=== PATIENT | female | born 1960 | race Caucasian/White ===

== ENCOUNTER 2023-09-10 14:57 | Outpatient (CLI) | payer OTHER, SELFPAY ==
[2023-09-10 15:39] LABS: Alanine Aminotransferase 30 U/L (6-35); Albumin Level 4.1 g/dL (3.5-5.1); Alkaline Phosphatase 186 U/L (38-126); Anion Gap 7 mmol/L (4-12); Aspartate Amino Transferase 78 U/L (14-36); Bilirubin,Total 1.5 mg/dL (0.2-1.3); Blood Urea Nitrogen 12 mg/dL (7-17); Calcium 9.7 mg/dL (8.4-10.2); Carbon Dioxide 27 mmol/L (22-30); Chloride 101 mmol/L (98-107); Estimated Glomerular Filt Rate > 60; Glucose 117 mg/dL (65-110); Magnesium 1.5 mg/dL (1.6-2.3); Phosphorus 4.9 mg/dL (2.5-4.5); Potassium 4.1 mmol/L (3.4-5.0); Sodium 135 mmol/L (137-145)
[2023-09-12 15:08] LABS: Amphetamines NEGATIVE ng/mL (<500); Barbiturates NEGATIVE ng/mL (<300); Benzodiazepines POSITIVE ng/mL (<100); Cocaine Metabolite NEGATIVE ng/mL (<150); Marijuana Metabolite NEGATIVE ng/mL (<20); Methadone Metabolite NEGATIVE ng/mL (<100); Opiates NEGATIVE ng/mL (<100); Oxidant NEGATIVE mcg/mL (<200); pH 7.5 (4.5-9.0)
== END 2023-09-10 14:58 | disposition home or self-care (01) ==
LOC: ANHLAB 15:00
PROVIDERS: PCP Nurse Practitioner Family; Visit Provider Nurse Practitioner Family
DX: Z13.228 Encounter for screening for other metabolic disorders (principal); E83.42 Hypomagnesemia; E87.6 Hypokalemia; R73.09 Other abnormal glucose; R74.01 Elevation of levels of liver transaminase levels; R74.8 Abnormal levels of other serum enzymes; Z79.899 Other long term (current) drug therapy
CPT/HCPCS: 36415; 80053; 80307; 83735; 84100

== ENCOUNTER 2023-09-30 11:05 | Outpatient (CLI) | payer OTHER, SELFPAY ==
[2023-09-30 19:12] LABS: Anion Gap 8 mmol/L (4-12); Blood Urea Nitrogen 5 mg/dL (7-17); Calcium 9.1 mg/dL (8.4-10.2); Carbon Dioxide 29 mmol/L (22-30); Chloride 95 mmol/L (98-107); Cholesterol 155 mg/dL (0-200); Estimated Glomerular Filt Rate > 60; Glucose 122 mg/dL (65-110); HDL Direct 98 mg/dL; Magnesium 1.3 mg/dL (1.6-2.3); Phosphorus 5.6 mg/dL (2.5-4.5); Potassium 3.6 mmol/L (3.4-5.0); Sodium 132 mmol/L (137-145); Triglycerides 112 mg/dL (<150)
[2023-09-30 19:22] LABS: LDL Cholesterol Direct 50 mg/dL
== END 2023-09-30 11:06 | disposition home or self-care (01) ==
PROVIDERS: PCP Nurse Practitioner Family; Visit Provider Nurse Practitioner Family
DX: Z13.220 Encounter for screening for lipoid disorders (principal); E83.42 Hypomagnesemia; R79.89 Other specified abnormal findings of blood chemistry; E87.1 Hypo-osmolality and hyponatremia; E87.6 Hypokalemia
CPT/HCPCS: 36415; 80048; 80061; 83735; 84100

== ENCOUNTER 2023-10-21 10:43 | Outpatient (CLI) | payer OTHER, SELFPAY ==
[2023-10-21 22:58] LABS: Anion Gap 8 mmol/L (4-12); Blood Urea Nitrogen 4 mg/dL (7-17); Calcium 9.3 mg/dL (8.4-10.2); Carbon Dioxide 27 mmol/L (22-30); Chloride 100 mmol/L (98-107); Estimated Glomerular Filt Rate > 60; Glucose 95 mg/dL (65-110); Magnesium 1.4 mg/dL (1.6-2.3); Phosphorus 4.9 mg/dL (2.5-4.5); Potassium 3.7 mmol/L (3.4-5.0); Sodium 135 mmol/L (137-145)
[2023-10-22 09:50] LABS: Ionized Calcium 4.7 mg/dL (4.7-5.5)
[2023-10-22 12:31] LABS: Sodium Urine Random 51 meq/L
[2023-10-22 12:31] LABS: Parathyroid Intact 8.7 pg/mL (7.5-53.5)
[2023-10-25 16:19] LABS: Osmolality, Urine 408 mOsm/kg (50-1200)
== END 2023-10-21 10:44 | disposition home or self-care (01) ==
PROVIDERS: PCP Nurse Practitioner Family; Visit Provider Nurse Practitioner Family
DX: E87.1 Hypo-osmolality and hyponatremia (principal); E83.39 Other disorders of phosphorus metabolism; E87.6 Hypokalemia; R79.89 Other specified abnormal findings of blood chemistry; E83.42 Hypomagnesemia
CPT/HCPCS: 36415; 80048; 82306; 82330; 82533; 83735; 83935; 83970; 84100; 84300

== ENCOUNTER 2023-12-03 11:52 | Emergency (ER) | payer OTHER, SELFPAY ==
--- NOTE | ~2023-12-03 | XR_ITS ---
Left foot Technique: AP, oblique, and lateral views were obtained. Clinical History: Pain Findings: No acute fracture or dislocation is seen. Osseous alignment is anatomic. Joint spaces are p reserved without erosive or degenerative change. Soft tissues are unremarkable. Impression: Unremarkable left foot radiographs. Reviewed, dictated and finalized at location . Impression: Unremarkable left foot radiographs.
[2023-12-03 11:57] VITALS: BP 129/72; PULSE 100; RESP 16; TEMP 36.2; O2SAT 99
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
== END 2023-12-03 13:52 | disposition home or self-care (01) ==
PROVIDERS: Emergency Provider Nurse Practitioner Family; PCP Nurse Practitioner Family
DX: S90.32XA Contusion of left foot, initial encounter (principal); V03.10XA Pedestrian on foot injured in collision with car, pick-up truck or van in traffic accident, initial encounter; F17.210 Nicotine dependence, cigarettes, uncomplicated
CPT/HCPCS: 73630; 99213; G0463

== ENCOUNTER 2023-12-24 10:10 | Outpatient (CLI) | payer OTHER, SELFPAY ==
--- NOTE | ~2023-12-24 | XR_ITS ---
Lumbosacral Spine: AP and lateral views Clinical History: Pain Findings: There is levoscoliosis of the lumbar spine. No fracture or anteroposterior subluxation evid ent. There is severe degenerative disc narrowing L2-L3, probable mild to moderate degenerative disc n arrowing at L3-L4, L4-L5, L5-S1. There is advanced facet arthropathy from L3 through S1. The interver tebral disc spaces are preserved. The sacroiliac joints are normally outlined. Impression: Levoscoliosis with advanced degenerative change, particularly in the lower lumbar spine. Reviewed, dictated and finalized at location M. Impression: Levoscoliosis with advanced degenerative change, particularly in the lower lumb ar spine.
== END 2023-12-24 10:11 | disposition home or self-care (01) ==
LOC: ANHIMG 10:15
PROVIDERS: PCP Nurse Practitioner Family; Visit Provider Nurse Practitioner Family
DX: M54.10 Radiculopathy, site unspecified (principal); M41.87 Other forms of scoliosis, lumbosacral region
CPT/HCPCS: 72100

== ENCOUNTER 2024-04-11 11:15 | Outpatient (CLI) | payer OTHER, SELFPAY ==
[2024-04-11 19:12] LABS: Basophils Percent Auto 0.8 % (0.2-1.2); Hematocrit 35.9 % (37.0-47.0); Hemoglobin 12.9 g/dL (12.0-15.0); Immature Granulocyte Absolute 0.01 K/mm3 (0.00-0.031); Immature Granulocyte Percent A 0.3 % (0-0.5); Lymphocytes Absolute Auto 1.12 K/mm3 (0.9-3.2); Mean Corpuscular HGB Conc 35.9 g/dl (32-36); Mean Corpuscular Hemoglobin 39.9 pg (26-34); Mean Corpuscular Volume 111.1 fl (80-100); Mean Platelet Volume 9.6 fl (7.4-10.4); Monocytes Absolute Auto 0.3 K/mm3 (0.1-0.6); Neutrophils Absolute Auto 2.5 K/mm3 (1.3-6.7); Neutrophils Percent Auto 61.9 % (45.5-73.1); Platelet Count Result 229 k/mm3 (150-375); Red Blood Count 3.23 M/mm3 (4.2-5.4); Red Cell Distribution Width 13.2 % (11.5-14.5)
[2024-04-11 19:45] LABS: Vitamin D 25 Hydroxy 80.5 ng/mL
[2024-04-11 19:50] LABS: Hypochromasia 1+; Ovalocytes 1+; Platelet Estimate Adequate (Adequate)
[2024-04-11 19:51] LABS: Large Platelets Present; Schistocytes None Seen
[2024-04-11 20:22] LABS: Alanine Aminotransferase 18 U/L (6-35); Albumin Level 3.8 g/dL (3.5-5.1); Alkaline Phosphatase 138 U/L (38-126); Anion Gap 6 mmol/L (4-12); Aspartate Amino Transferase 90 U/L (14-36); Bilirubin,Total 1.7 mg/dL (0.2-1.3); Blood Urea Nitrogen 9 mg/dL (7-17); Calcium 8.9 mg/dL (8.4-10.2); Carbon Dioxide 28 mmol/L (22-30); Chloride 101 mmol/L (98-107); Estimated Glomerular Filt Rate > 60; Glucose 108 mg/dL (65-110); Magnesium 1.3 mg/dL (1.6-2.3); Phosphorus 4.3 mg/dL (2.5-4.5); Potassium 3.9 mmol/L (3.4-5.0); Sodium 135 mmol/L (137-145)
[2024-04-11 20:31] LABS: Iron 243 ug/dL (37-170)
[2024-04-11 20:41] LABS: Percent Iron Saturation 123 % (20-50)
[2024-04-11 21:25] LABS: Folic Acid 3.4 ng/mL (2.76->20)
== END 2024-04-11 11:16 | disposition home or self-care (01) ==
LOC: ANHBWCLAB 11:17
PROVIDERS: PCP Nurse Practitioner Family; Visit Provider Nurse Practitioner Family
DX: E83.39 Other disorders of phosphorus metabolism (principal); M54.16 Radiculopathy, lumbar region; M79.671 Pain in right foot; M79.672 Pain in left foot; R79.89 Other specified abnormal findings of blood chemistry; E87.1 Hypo-osmolality and hyponatremia; F17.210 Nicotine dependence, cigarettes, uncomplicated; F41.1 Generalized anxiety disorder; K75.81 Nonalcoholic steatohepatitis (NASH); Z79.899 Other long term (current) drug therapy; E83.42 Hypomagnesemia
CPT/HCPCS: 36415; 80053; 82306; 82607; 82728; 82746; 83036; 83540; 83550; 83735; 84100; 84443; 85025

== ENCOUNTER 2024-04-29 11:44 | Outpatient (CLI) | payer OTHER, SELFPAY ==
--- NOTE | ~2024-04-29 | MM_ITS ---
EXAMINATION: MM screening luiz BI w valentino HISTORY: Screening TECHNIQUE: Craniocaudal and mediolateral oblique 3-D tomosynthesis images were obtained and synthetic 2-D images were generated. CAD analysis was submitted and interpreted. COMPARISON: No prior mammogram is available for comparison at this institution. BREAST PARENCHYMAL COMPOSITION: Dense: The breasts are heterogeneously dense, which may obscure small masses FINDINGS: There is no evidence of suspicious mass, calcification, or architectural distortion to sugg est malignancy in either breast. There has been no suspicious interval change. IMPRESSION: 1. No mammographic evidence of malignancy. 2. Recommend routine screening mammography in one year. BI-RADS Category 1: Negative Reviewed, dictated and finalized at location B. 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
--- OUTSIDE RECORDS SUMMARY | 2024-05-03 11:15 | XMS_ITS | Clinical Summary ---
Author Organization [facility] [employer] Address [address] [place] [address] Care Team Providers Care Chemist Organic Name Role Phone Fernie Barfield DO Primary Care Provider [phone] Source Comments [facility],non-owned Affiliates and Associated Physician Practices is amultiple site organization consisting of ambulatory clinics and hospital sitesin [place], [place], [place] and [place]. This disclosure is being madepursuant to the Care Everywhere program and may not contain all informatio navailable regarding this patient. Last updated 18.[facility] [employer] Allergies Active Allergy Reactions Criticality Noted Date Comments Meperidine Other Low 06/03/2017 MS CHANGES, RESP DEPRESSION Oxycodone Psychiatric Medium 10/12/2017 Medications * Be aware that medications may not be up to date on this document. Alwaysverify current medications with the patient. Medication Sig Dispensed Refills Start Date End Date Status folic acid (FOLVITE) 1 MG tablet Take 1 mg by mouth DAILY. 30 tablet 5 07/02/2017 Active Additional Information Patient not taking.Reported on 02/21/2021 Vitamins/Minerals TABS Take 1 tablet by mouth DAILY. 06/03/2017 Active Probiotic Product (ACIDOPHILUS/GOAT MILK) CAPS Take 1 tablet by mouth DAILY. 06/03/2017 Active ALPRAZolam (XANAX) 0.5 MG tabletIndications:Li cat cirrhosis secondary to SALGADO (HCC),Low ceruloplasmin level (HCC) Take 0.5 mg by mouth once daily as needed 0 12/03/2017 Active fluticasone propionate (FLONASE) 50 MCG/ACT nasal sprayIndications:Tayler er cirrhosis secondary to SALGADO (HCC),Low ceruloplasmin level (HCC) as needed 0 12/03/2017 Active vitamin D, cholecalciferol, 2000 UNITS tablet Take 1 tablet by mouth once daily 90 tablet 1 01/07/2018 Active Digestive Enzymes CAPS Take 1 capsule by mouth 2 times daily Active B Complex Vitamins (B COMPLEX PO) 1/2 tablet twice daily Active MILK THISTLE PO Take by mouth once daily Active Biotin 5 MG Take by mouth once daily Active Ascorbic Acid (VITAMIN C PO) Take by mouth once daily Active Other Maritime pine- antioxidant- twice daily Active EVENING PRIMROSE OIL PO Take by mouth once daily Active amLODIPine (NORVASC) 5 MG tablet once daily 02/13/2020 Active Zinc 25 MG Take by mouth once daily Active Active Problems Problem Noted Date Diagnosed Date Acute renal failure syndrome 02/21/2021 Anxiety disorder 12/03/2017 Acute encephalopathy 10/19/2017 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 Has an appointment this coming Wednesday. Had a paracentesis about 2 weeks ago. States that usually after paracentesis she feels better however this time she became sicker CT of the abdomen consistent with colitis Patient is diffusely tender Concern for spontaneous bacterial peritonitis Septic workup is in progress Consider diagnostic paracentesis to rule out SBP Continue with IV antibiotics with Flagyl and Zosyn Other ascites 06/10/2017 Fatty (change of) liver, not elsewhere classifie d 06/03/2017 Fatigue 12/10/2016 Severe malnutrition Resolved Problems Problem Noted Date Diagnosed Date Resolved Date Acute respiratory failure with hypoxia 10/19/2017 07/08/2018 MAINOR (acute kidney injury) 10/19/2017 Cor pulmonale (chronic) 10/19/201711/15 Septic shock 10/14/2017 12/10/2017 Hypo-osmolality and hyponatremia 08/07/2017 12/10/2017 Family History Medical History Relation Name Comments None Known Father Status: d Cardiomyopathy Mother Diabetes - Type 2 Mother Status: De ceased Relation Name Status Comments Father Mother Social History Tobacco Use Types Packs/Day Years Used Date Smoking Tobacco: Every Day Cigarettes Smokeless Tobacco: Former Alcohol Use Standard Drinks/Week Comments Yes 0 (1 standard drink = 0.6 oz pure alcohol) Pt states she has an occasional cocktail Sex and Gender Information Value Date Recorded Sex Assigned at Not on file Gender Identity Not on file Sexual Orientation Not on file Last Filed Vital Signs Vital Sign Reading Time Taken Comments Blood Pressure 133/68 02/21/2021 11:10 AM CDT Pulse 76 02/21/2021 11:10 AM CDT Temperature 36.2 ??C (97.1 ??F) 04/26/2020 10:[address] Respiratory Rate 18 04/26/2020 10:30 AM MOBILE WEB APPLICATION DEVELOPER Oxygen Saturation 100% 04/26/2020 10:30 AM MOBILE WEB APPLICATION DEVELOPER Inhaled Oxygen Concentration 24% 10/27/2017 7 :00 AM CDT Weight 58.5 kg (129 lb) 02/21/2021 11:10 AM CDT Height 154.9 cm (5' 1 ) 02/21/2021 11:10 AM CDT Body Mass Index 24.37 02/21/2021 11:10 AM CDT Plan of Treatment Health Maintenance Due Date Last Done Comments COLOGUARD (AGES 45-75) - COL ON CA SCREENING 1961 COLON MONITORING 1961 COLONOSCOPY - COLON CA SCREENING 1961 CT COLONOGRAPHY - COLON CA SCREENING 1961 Colorectal Cancer Screening 1961 FIT - COLON CA SCREENING 1961 FLEX SIG - COLON CA SCREENING 1961 LIPID TESTING 1961 MAMMOGRAM 1961 PAP SMEAR 1961 PNEUMOCOCCAL VACCINE (1 of 2 - PCV) 10/27/1967 DTAP/TDAP/TD VACCINES (1 - Tdap) 1980 ZOSTER VACCINE (1 of 2) 10/27/2011 HEPATITIS B VACCINE (1 of 3 - Risk 3-dose series) 2021 Respiratory Syncytial Virus (RSV) Vaccine Pt: or over 60 yrs (1 - Risk 60-74 years 1-dose series) 2021 DEPRESSION SCREENING 05/17/2023 COVID-19 VACCINE (1 - 2023-2 5 season) 2024 INFLUENZA VACCINE (#1) 2024 HEPATITIS C SCREENING Completed 10/18/2017 HIV SCREENING Completed 10/18/2017 HIB VACCINE Aged Out No longer eligi ble based on patient's age to complete this topic HPV VACCINE Aged Out No longer eligi ble based on patient's age to complete this topic MENINGOCOCCAL VACCINE Aged Out No suzi shaina eligible based on patient's age to complete this topic Goals Goal Patient Goal Type Associated Problems Recent Progress Patient-Stated? Author Medication Management General On track( 021 11:11 AM CDT) Kimberly Nicolas, RN Note: Expected end date: ongoing Interventions: Take all medications as prescribed Medical Devices Implanted Type Area Vmware Engineer Device Identifier Shelf Expiration Date Model / Serial / Lot Cath Dlys Dura-Flw 15.5fr X 24cm Implanted:Qty: 1 on 10/28/2017 by Nathalie Kerns MD at [facility] Right: Chest [employer] 02/14/2020 [id number] / / [id number] Description:RIJ Procedures Procedure Name Priority Date/Time Associated Diagnosis Comments HEPATITIS SCREEN ACUTE Routine 10/18/2017 1:54 PM CDT HIV-1 HIV-2 ANTIGEN/ANTIBODY Routine 10/18/2017 1:54 PM CDT from Last 3 Months or Most Recently Relevant to Health Maintenance Results * HIV-1 HIV-2 ANTIGEN/ANTIBODY (10/18/2017 1:54 PM CDT) HIV Antigen/Antibod y 1 & 2 Non-reacti ve Non-react diana 10/18/2017 3:08 PM CDT [facility] Comment: Neither HIV-1 p24 Antigen nor HIV-1/HIV-2 Antibodies are detected. ? Blood BLOOD SPECIMEN / Unknown Venipuncture / Unknown 10/18/2017 1:54 PM CDT 10/18/2017 2:01 PM CDT Elver Askew MD LAB - HEMATOLOG Y ORDERABLES Performing Organization Address City/[facility]/ZIP Co de Phone Number [address] [phone] * HEPATITIS SCREEN ACUTE (10/18/2017 1:54 PM CDT) Hepatitis A Virus Antibody IgM Non-react diana Non-reac tive 10/18/2017 3:08 PM CDT [facility] Hepatitis B Virus Surface Antigen Non-react diana Non-reac tive 10/18/2017 3:08 PM CDT [facility] Hepatitis B Core Virus Antibody IgM Non-react diana Non-reac tive 10/18/2017 3:08 PM CDT [facility] Hepatitis C Antibody Non-react diana Non-reac tive 10/18/2017 3:08 PM CDT [facility] Comment: Hepatitis C Antibody screen indicates no serologic evidence of past or current infection with Hepatitis C Virus. Patients with unexplained liver disease who are immunocompromised or suspected of having acute Hepatitis C infection may benefit from Nucleic Acid Test (LATONYA) for Hepatitis C Viral RNA to confirm Hepatitis C status. Blood BLOOD SPECIMEN / Unknown Venipuncture / Unknown 10/18/2017 1:54 PM CDT 10/18/2017 2:01 PM CDT Elver Askew MD LAB - CHEMISTRY ORDERABLES [address] [phone] from Last 3 Months or Most Recently Relevant to Health Maintenance Advance Directives * Full Code (Latest Code Status on File) Date Activated Date Inactivated Comments 10/14/2017 8:36 PM 11/03/2017 6:52 PM Care Teams Chemist Organic Relationship Specialty Start Date End Date Fernie Barfield DO [address] [place] [phone] PCP - General 04/14/17
--- OUTSIDE RECORDS SUMMARY | 2024-05-03 11:15 | XMS_ITS | Referral Summary ---
Author Organization [facility] Address [address] [place] [address] Care Team Providers Care Load Planner Name Role Phone Fernie Barfield DO Primary Care Provider Source Comments [facility],non-owned Affiliates and Associated Physician Practices is amultiple site organization consisting of ambulatory clinics and hospital sitesin [place], [place], [place] and [place]. This disclosure is being madepursuant to the Care Everywhere program and may not contain all information available regarding this patient. Last updated 18.[facility] [employer] Allergies Active Allergy Reactions Criticality Noted Date [...] & Plan: History of SALGADO, follows in [facility] hepatology Clinic. 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 No 11/03/2017 Is person blind or have serious difficulty seein g? Yes 11/03/2017 Does person have serious dif ficulty walking/climbing stairs? Yes 11/03/2017 Does person have difficulty dressing/bathing? Ye s 11/03/2017 Does person have difficulty doing errands alone? Yes 11/03/2017 Cognitive Status Response Date of Assessm ent Does person have difficulty concentrating/remembering/making decisions? Yes 11/03/2017 Plan of Treatment Not on file Goals Goal Patient Goal Type Associated Problems Recent Progress Patient-Stated? Author Medication Management General On track( 021 11:11 AM CDT) No Kimberly Rodas, RN Note: Expected end date: ongoing Interventions: Take all medications as prescribed Medical Devices Implanted Type Area Supervisor Knitting Device Identifier Shelf Expiration Date Model / Serial / Lot Cath Dlys Dura-Flw 15.5fr X 24cm Implanted:Qty: 1 on 10/28/2017 by Nathalie Kerns MD at [facility] Right: Chest [employer] 02/14/2020 [id number] / / [id number] Description:RIJ Procedures Procedure Name Priority Date/Time Associated Diagnosis Comments HEPATITIS SCREEN ACUTE Routine 10/18/2017 1:54 PM CDT HIV-1 HIV-2 ANTIGEN/ANTIBODY Routine 10/18/2017 1:54 PM CDT from Last 3 Months or Most Recently Relevant to Health Maintenance Results * HIV-1 HIV-2 ANTIGEN/ANTIBODY (10/18/2017 1:54 PM CDT) HIV Antigen/Antibod y 1 & 2 Non-reacti ve Non-react diana 10/18/2017 3:08 PM CDT [facility] Comment: Neither HIV-1 p24 Antigen nor HIV-1/HIV-2 Antibodies are detected. ? Blood BLOOD SPECIMEN / Unknown Venipuncture / Unknown 10/18/2017 1:54 PM CDT 10/18/2017 2:01 PM CDT Elver Askew MD LAB - HEMATOLOG Y ORDERABLES Performing Organization Address City/State/[facility] Co de Phone Number [address] [phone] * HEPATITIS SCREEN ACUTE (10/18/2017 1:54 PM CDT) Hepatitis A Virus Antibody IgM Non-react diana Non-reac tive 10/18/2017 3:08 PM CDT [facility] Hepatitis B Virus Surface Antigen Non-react diana Non-reac tive 10/18/2017 3:08 PM CDT [facility] Hepatitis B Core Virus Antibody IgM Non-react diana Non-reac tive 10/18/2017 3:08 PM CDT [facility] Hepatitis C Antibody Non-react diana Non-reac tive 10/18/2017 3:08 PM T [facility] Comment: Hepatitis C Antibody screen indicates no [...] Elver Askew MD LAB - CHEMISTRY ORDERABLES [address] [phone] from Last 3 Months or Most Recently Relevant to Health Maintenance Advance Directives * Full Code (Latest Code Status on File) Date Activated Date Inactivated Comments 10/14/2017 8:36 PM 11/03/2017 6:52 PM Care Teams Load Planner Relationship Specialty Start Date End Date Fernie Barfield DO [address] [place] [phone] PCP - General 04/14/17
--- OUTSIDE RECORDS SUMMARY | 2024-05-03 11:16 | XMS_ITS | Encounter Summary ---
Author Organization [facility] Address [address] [facility] [place] [address] Care Team Providers Care Equipment Service Associate Name Role Phone Fernie Barfield DO Primary Care Provider [phone] Encounter Details Date Type Department Care Team (Late st Contact Info) Description 05/13/2018 Orders Only [facility] [address] [place] [address] Kody Turpin MD [address] [place] [address] Other ascites Social History Tobacco Use Types Packs/Day Years Used Date Smoking Tobacco: Every Day Cigarettes Smokeless Tobacco: Former Alcohol Use Standard Drinks/Week Comments Yes 0 (1 standard drink = 0.6 oz pure alcohol) Pt states she has an occasional cocktail 03/11/18 Sex and Gender Information Value Date Recorded Sex Assigned at Not on file Gender Identity Not on file Sexual Orientation Not on file documented as of this encounter Functional Status Functional Status Response Date of [...] person have difficulty concentrating/remembering/making decisions? Yes 11/03/2017 documented as of this encounter Plan of Treatment Not on file documented as of this encounter Visit Diagnoses Diagnosis Other ascites documented in this encounter Care Teams Equipment Service Associate Relationship Specialty Start Date End Date Fernie Barfield DO [address] [place] [phone] PCP - General 04/14/17 documented as of this encounter
--- OUTSIDE RECORDS SUMMARY | 2024-05-03 11:16 | XMS_ITS | Encounter Summary ---
Author Organization [facility] Address [address] [place] [address] Care Team Providers Care Music Therapy Specialist Name Role Phone Fernie Barfiedl DO Primary Care Provider Reason for Visit * Reason Onset Date Comments Follow-up 04/29/2021 Encounter Details Date Type Department Care Team (Late st Contact Info) Description 04/29/2021 Telephone [facility] [address] [facility] [place] [address] Sara Joaquin, BENCH GRINDER-ANIMAL CARE SUPERVISOR [address] [place] [address] Follow-up Social History Tobacco Use Types Packs/Day Years [...] Yes 11/03/2017 documented as of this encounter Miscellaneous Notes * Telephone Encounter - Sara Joaquin APRN-CNP - 04/29/2021 2:13 PM [employer]WOR[employer] EMPLOYEE Attempted to call patient left voice mail . Her insurance company will not authorize MRI. Can we try repeating a ct scan instead. It has been a year since last ct scan was done left a message to callthe clinic [employer] EMPLOYEE documented in this encounter Plan of Treatment Not on file documented as of this encounter Goals Goal Patient Goal Type Associated Problems Recent Progress Patient-Stated? Author Medication Management General On track( 021 11:11 AM CDT) Kimberly Nicolas, RN Note: Expected end date: ongoing Interventions: Take all medications as prescribed documented as of this encounter Visit Diagnoses Not on filedocumented in this encounter Care Teams Music Therapy Specialist Relationship Specialty Start Date End Date Fernie Barfield DO [address] [place] [phone] PCP - General 04/14/17 documented as of this encounter
--- OUTSIDE RECORDS SUMMARY | 2024-05-03 11:16 | XMS_ITS | Encounter Summary ---
Author Organization [facility] Address [address] [facility] [place] [address] Care Team Providers Care Management Liaison Name Role Phone Fernie Barfield DO Primary Care Provider [phone] Reason for Visit * Reason Onset Date Comments Follow-up 11/26/2017 Encounter Details Date Type Department Care Team (Late st Contact Info) Description 11/26/2017 Telephone [facility] [address] [facility] [place] [address] Sara Joaquin, CODER OPERATOR-MARINE SURVEYOR [address] [place] [phone] Follow-up Social History Tobacco Use Types Packs/Day Years Used Date Smoking Tobacco: Every Day Cigarettes Smokeless Tobacco: Former Alcohol Use Standard Drinks/Week Comments No 0 (1 standard drink = 0.6 oz pur e alcohol) Sex and Gender Information Value Date Recorded [...] Telephone Encounter - Sara Joaquin APRN-CNP - 11/26/2017 2:20 PM CDT Spoke with Ralph yang regarding why she was being followed by an attending. instructed patient that since Ms. Li was in ICU that she should be followed up by an attending physician . verbalized understanding documented in this encounter Plan of Treatment Not on file documented as of this encounter Visit Diagnoses Not on filedocumented in this encounter Care Teams Management Liaison Relationship Specialty Start Date End Date Fernie Barfield DO [address] [place] [phone] PCP - General 04/14/17 documented as of this encounter
--- OUTSIDE RECORDS SUMMARY | 2024-05-03 11:16 | XMS_ITS | Encounter Summary ---
Author Organization [facility] Address [address] [facility] [place] [address] Care Team Providers Care Shuttle Bus Driver Name Role Phone Fernie Barfield DO Primary Care Provider Reason for Visit * Reason Onset Date Comments Future Appointment 02/07/2021 Encounter Details Date Type Department Care Team (Late st Contact Info) Description 02/07/2021 Telephone [facility] - [address] [phone] Leelee Mata RN Future Appointment Social History Tobacco Use Types Packs/Day Years [...] encounter Miscellaneous Notes * Telephone Encounter - Leelee Mata RN - 02/07/2021 9:15 AM CDT Patient called regarding upcoming appointment and CT scan. Has some concerns and questions he would like to talk about today. He is requesting a call back today to discuss [phone] documented in this encounter Plan of Treatment [...] on filedocumented in this encounter Care Teams Shuttle Bus Driver Relationship Specialty Start Date End Date Fernie Barfield DO [address] [place] [phone] PCP - General 04/14/17 documented as of this encounter
--- OUTSIDE RECORDS SUMMARY | 2024-05-03 11:16 | XMS_ITS | Encounter Summary ---
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) (Primary Dx); Screening for osteoporosis; Other ascites; MAINOR (acute kidney injury) (HCC); Other cirrhosis of liver (HCC); Severe malnutrition (HCC) Social History Tobacco Use Types Packs/Day Years [...] on file documented as of this encounter Last Filed Vital Signs Vital Sign Reading Time Taken Comments Blood Pressure 127/79 03/11/2018 10:40 AM CDT Pulse 83 03/11/2018 10:40 AM CDT Temperature 36.7 ??C (98.1 ??F) 03/11/2018 10:40 AM C DT Respiratory Rate 18 03/11/2018 10:40 AM CDT Oxygen Saturation 100% 03/11/2018 10:40 AM CDT Inhaled Oxygen Concentration - - Weight 44.9 kg (98 lb 14.4 oz) 03/11/2018 10:40 AM CDT Height 157.5 cm (5' 2 ) 03/11/2018 10:40 AM CDT Body Mass Index 18.09 03/11/2018 10:40 AM CDT documented in this encounter Functional Status Functional Status Response [...] Yes 11/03/2017 documented as of this encounter Patient Instructions * Patient Instructions* Juan Turpin MD - 03/11/2018 11:45 AM CDT You should get a pneumonia and flu shots Get a bone density scan documented in this encounter Progress Notes * Juan Turpin MD - 03/11/2018 11:35 AM CDT Hepatology clinic follow up patient visit: Subjective: 57 y.o. yo pt with SALGADO cirrhosis. Referring physician: Dr. Fernie Barfield, DO Since last visit, didn't need any dialysis, HD catheter removed She didn't need any paracentesis in 5 weeks, was getting it every 10 days before. Stopped lasix She is gaining more strength, exercising, walking Pt denies any confusion or change in mental status, no hematemesis or hematochezia, no change in abdominal girth, no edema In summary: Pt used to follow with Sara Joaquin She was admitted to the hospital in October for bilateral pneumonia and septic shock, she was on a ventilator. Had an MAINOR and was on HD for about 20 days She has been better. No dialysis for 2 weeks, last creatinine was 1 this week. She is making more urine She gets paracentesis every 10 days. She said her abdomen feels better She had encephalopathy in the hospital but never before. No HE since discharge She had an echo in October which was pretty much normal Seen by ophthalmology in the hospital which was negative for FK ring She is trying to eat better, trying to get as much food as she can. She uses a walker to ambulate Her highest weight was 157 lbs. Until last year. She lost all the weight within 1 year. Her problems started with the dentures and she couldn't eat anymore, then she was getting sicker She had a cholecystectomy in January 2017 after which she decompensated, developed ascites and started loosing more weight Biopsy of the liver was done intra-op (MO-bap), it was read as marked steatosis, siderosis and findings of obstruction In follow up Last HD was in November Other ROS: A 12-point ROS was performed in detail with the patient and is negative other than above. Past Medical History: No past medical history on file. Active Problem List: Patient Active Problem List Diagnosis Date Noted ??? Severe malnutrition Priority: Not Prioritized ??? Acute encephalopathy 10/19/2017 Priority: Not Prioritized ??? Acute respiratory failure with hypoxia 10/19/2017 Priority: Not Prioritized ??? MAINOR (acute kidney injury) 10/19/2017 Priority: Not Prioritized ??? 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 10/19/2017 Priority: Not Prioritized ?cryptogenic vs SALGADO (no risk factors) Normal platelet and normal liver function tests Waiting for liver biopsy slides ??? Other ascites 06/10/2017 ??? Fatty (change of) liver, not elsewhere classified 06/03/2017 Past surgical history: Past Surgical History: Procedure Laterality Date ??? Cholecystectomy, Laparoscopic ??? PARACENTESIS ??? PARACENTESIS, LARGE VOLUME , 10 DAYS AGO 7.5L REMOVED Social history: Alcohol: never been a regular drinker. 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 Marital status: Spouse name: N/A ??? Number of children: N/A ??? Years of education: N/A Occupational History ??? Not on file. Social History Main Topics ??? Smoking status: Current Every Day Smoker Packs/day: 1.00 Types: Cigarettes ??? Smokeless tobacco: Former User ??? Alcohol use Yes Comment: Pt states she has an occasional cocktail 03/11/18 ??? Drug use: No ??? Sexual activity: Not on file Other Topics Concern ??? Not on file Social History Narrative Allergies: Allergies Allergen Reactions ??? Oxycodone Psychiatric ??? Meperidine Other MS CHANGES, RESP DEPRESSION Family history: Family History Problem Relation Age of Onset ??? Diabetes - Type 2 Mother Status: ??? Cardiomyopathy Mother ??? None Known Father Status: No FHx of liver disease or liver cancer Medications: Outpatient Encounter Prescriptions as of 03/11/2018 Medication Sig Dispense Refill ??? Digestive Enzymes CAPS Take 1 capsule by mouth 2 times daily ??? vitamin D, cholecalciferol, 2000 UNITS tablet Take 1 tablet by mouth once daily 90 tablet 1 ??? ALPRAZolam (XANAX) 0.5 MG tablet Take 0.5 mg by mouth once daily as needed 0 ??? traMADol (ULTRAM) 50 MG tablet Take 50 mg by mouth once daily as needed 0 ??? fluticasone propionate (FLONASE) 50 MCG/ACT nasal spray USE 2 SPRAYS EACH NOSTRIL EVERY DAY 0 ??? thiamine (VITAMIN B-1) 50 MG tablet Take 50 mg by mouth DAILY. 30 tablet 5 ??? folic acid (FOLVITE) 1 MG tablet Take 1 mg by mouth DAILY. 30 tablet 5 ??? Vitamins/Minerals TABS Take 1 tablet by mouth DAILY. ??? Probiotic Product (ACIDOPHILUS/GOAT MILK) CAPS Take 1 tablet by mouth DAILY. ??? ondansetron (ZOFRAN) 4 MG tablet Take 4 mg by mouth q8h PRN (Nausea). (Patient not taking: Reported on 03/11/2018) No facility-administered encounter medications on file as of 03/11/2018. Objective: Physical exam: BP 127/79 Pulse 83 Temp 98.1 ??F (36.7 ??C) (Oral) Resp 18 Ht 1.575 m (5' 2 ) Wt 44.9 kg (98 lb 14.4 oz) SpO2 100% BMI 18.09 kg/m2 General appearance: cachectic, very thin, alert, oriented, pleasant, in NAD Skin: Skin color, texture, turgor normal, +o spider angiomas. Diffuse ecchymosis Neck: Normal range of motion Eyes: Anicteric sclera Lungs: CTAB, no wheezing or rhonchi Heart: RRR Abdomen: Soft, non-tender, no fluid wave present. Bowel sounds normal. Neuro: No asterixis, moving all extremities Psychiatric: Has a normal mood and affect. Speech is normal. Extremities: no LE edema. Good capillary refill. Labs: CBC: Lab Results Component Value Date WBC 6.6 12/28/2017 RBC 2.32 (L) 11/03/2017 HGB 10.3 (Abnormal) 12/28/2017 HCT 31.2 (Abnormal) 12/28/2017 MCV 102.6 (H) 11/03/2017 MCH 33.2 11/03/2017 MCHC 32.4 11/03/2017 RDW 22.2 (H) 11/03/2017 PLT 411 (Abnormal) 12/28/2017 MPV 9.0 (L) 11/03/2017 BMP: Lab Results Component Value Date GLU 84 11/03/2017 NA 137 11/03/2017 K 3.4 (L) 10/14/2017 CL 98 11/03/2017 CO2 24 12/28/2017 BUN 21 (Abnormal) 12/28/2017 CREATININE 1.3 (H) 11/03/2017 CALCIUM 8.8 (Abnormal) 12/28/2017 Coagulation: Lab Results Component Value Date PT 13.2 12/28/2017 INR 0.98 12/28/2017 Lab Results Component Value Date ALT 20 12/04/2017 AST 46 (Abnormal) 12/04/2017 ALKPHOS 276 (Abnormal) 12/04/2017 ALB 2.2 (Abnormal) 12/28/2017 TBILI 1.4 (H) 11/03/2017 DBILI 0.7 (H) 10/29/2017 Hepatitis panel: Lab Results Component Value Date HEPAIGM Non-reactive 10/18/2017 HEPBIGM Non-reactive 10/18/2017 HEPCAB Non-reactive 10/18/2017 24 hr urine copper 11 RASHAAD 123 (12/2017) HFE: negative Liver biopsy: 01/2017 - Steatohepatitis - Marked ductular reaction, cholestasis, and portal-portal bridging fibrosis - Hepatocellular iron, up to 3+ - See comment Assessment: #1: Cryptogenic cirrhosis, complicated by recurrent ascites She has normal liver function and normal INR, low MELD. Echo is normal #2: Recurrent ascites, high SAAG. Requires paracentesis but none since January #3: Severe malnutrition #4: Prolonged admission (10/2017) with septic shock, respiratory failure and kidney failure #5: Severe MAINOR, required dialysis until 11/16/2017 Plan: Pt continues to make good recovery, still malnourished, although her weight is the same but she hasno fluids on exam today MELD is low Counseled pt about importance of nutrition, provided plan for 50-60 gm of protein daily Continue lactulose Bone density scan Schedule an EGD next visit RTC in 4 months Orders Placed This Encounter Procedures ??? DEXA BONE DENSITY 2 SITES Ángel Turpin MD Attending physician Division of Hepatology March 11, 2018 documented in this encounter Plan of Treatment Not on file documented as of this encounter Visit Diagnoses Diagnosis 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)- Primary Other chronic nonalcoholic liver disease Screening for osteoporosis Special screening for osteoporosis Other ascites MAINOR (acute kidney injury) (HCC) Acute kidney failure, unspecified Other cirrhosis of liver (HCC) Severe malnutrition (HCC) Nutritional marasmus documented in this encounter Care Teams Motor Block Mechanic Relationship Specialty Start Date End Date Fernie Barfield DO [address] [place] [phone] PCP - General 04/14/17 documented as of this encounter
--- OUTSIDE RECORDS SUMMARY | 2024-05-03 11:16 | XMS_ITS | Encounter Summary ---
Author Organization [facility] Address [address] [facility] [place] [address] Care Team Providers Care Dairy Technician Name Role Phone Fernie Barfield DO Primary Care Provider Reason for Visit * Reason Comments Reminder Call Encounter Details Date Type Department Care Team (Late st Contact Info) Description 01/03/2019 Telephone [facility] - [address] [place] [phone] Kimberly Rodas, RN Reminder Call Social History Tobacco Use Types Packs/Day Years [...] Yes 11/03/2017 documented as of this encounter Progress Notes * Kimberly Rodas, RN - 01/03/2019 10:39 AM CDT Called pt and left VM to call clinic. Wanted to confirm that pt will be coming to OV with Avelina Joaquin on 01/06/19 at 11am documented in this encounter Plan of Treatment Not on file documented as of this encounter Visit Diagnoses Not on filedocumented in this encounter Care Teams Dairy Technician Relationship Specialty Start Date End Date Fernie Barfield DO [address] [place] [phone] PCP - General 04/14/17 documented as of this encounter
--- OUTSIDE RECORDS SUMMARY | 2024-05-03 11:16 | XMS_ITS | Encounter Summary ---
Author Organization [facility] Address [address] [facility] [place] [address] Care Team Providers Care Solar Applications Development Engineer Name Role Phone Fernie Barfield DO Primary Care Provider Reason for Visit * Reason Comments Future Appointment Encounter Details Date Type Department Care Team (Late st Contact Info) Description 11/25/2017 Telephone [facility] [phone] [place] [address] Janelle Pacheco, ALEJANDRO Future Appointment Social History Tobacco Use Types [...] as of this encounter Progress Notes * Janelle Pacheco RN - 11/25/2017 11:17 AM CDT Patient's [id number] regarding follow up appointment scheduled with Dr. Turpin for 12/15/2017. Jayden is asking if patient can continue to see Sara Joaquin (patient feels comfortable with her)as well if appointment can be moved back about 3 weeks and be scheduled on a Wednesday since spouse palmiraff work on those days. Please contact him at [phone]. documented in this encounter Plan of Treatment Not on file documented as of this encounter Visit Diagnoses Not on filedocumented in this encounter Care Teams Solar Applications Development Engineer Relationship Specialty Start Date End Date Fernie Barfield DO [address] [place] [phone] PCP - General 04/14/17 documented as of this encounter
--- OUTSIDE RECORDS SUMMARY | 2024-05-03 11:16 | XMS_ITS | Encounter Summary ---
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) Procedures CT ABDOMEN MULTI PHASE W Sara Mayfield, DESK CLERK-WOOL HAT FORMING MACHINE TENDER [address] [place] [address] [facility] [address] [place] [address] Referral ID Status Reason Start Date Expiration Date Visits Re quested Visits Authorized [id number] Closed 07/10/2019 05/15/2020 1 1 LY RESOURCE SPECIALIST Reason for Visit * Radiology Services (Routine) - Closed Specialty Diagnoses / Procedures Referred By Contac t Referred To Contact CT Scan Diagnoses Fatty (change of) liver, not elsewhere classified 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) Procedures CT ABDOMEN MULTI PHASE W Sara Mayfield, DESK CLERK-WOOL HAT FORMING MACHINE TENDER [address] [facility] [address] [place] [address] [facility] [address] [place] [address] Referral ID Status Reason Start Date Expiration Date Visits Re quested Visits Authorized [id number] Closed 07/10/2019 05/15/2020 1 1 Encounter Details Date Type Department Care Team (Latest Contact Info) Description 04/26/2020 9:50 AM FAMILY RESOURCE SPECIALIST - 04/26/2020 11:59 PM FAMILY RESOURCE SPECIALIST Hospital Encounter [facility] CAT SCAN [address] [place] [address] Sara Joaquin, DESK CLERK-WOOL HAT FORMING MACHINE TENDER [address] [facility] [address] [place] [address] Discharge Disposition: Home or Self Care Social History Tobacco Use Types Packs/Day Years Used Date Smoking Tobacco: Every Day Cigarettes Smokeless Tobacco: Former Alcohol Use Standard Drinks/Week Comments Yes 0 (1 standard drink = 0.6 oz pure alcohol) Pt states she has an occasional cocktail Sex and Gender Information Value Date Recorded Sex Assigned at Not on file Gender Identity Not on file Sexual Orientation Not on file COVID-19 Exposure Response Date Recorded In the last month, have you been in contact with someone who was confirmed or suspected to have Coronavirus / COVID-19? No / Unsure 04/26/2020 9:39 AM FAMILY RESOURCE SPECIALIST documented as of this encounter Functional Status [...] Yes 11/03/2017 documented as of this encounter Medications at Time of Discharge Medication Sig Dispensed Refills Start Date End Date ALPRAZolam (XANAX) 0.5 MG tabletIndications: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),Low ceruloplasmin level (HCC) Take 0.5 mg by mouth once daily as needed 0 12/03/2017 amLODIPine (NORVASC) 5 MG tablet once daily 02/13/2020 Ascorbic Acid (VITAMIN C PO) Take by mouth once daily B Complex Vitamins (B COMPLEX PO) 1/2 tablet twice daily Biotin 5 MG Take by mouth once daily Digestive Enzymes CAPS Take 1 capsule by mouth 2 times daily EVENING PRIMROSE OIL PO Take by mouth once daily fluticasone propionate (FLONASE) 50 MCG/ACT nasal sprayIndications: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 30 tablet 5 07/02/2017 MILK THISTLE PO Take by mouth once daily Other Maritime pine- antioxidant- twice daily Probiotic Product (ACIDOPHILUS/GOAT MILK) CAPS Take 1 tablet by mouth DAILY. 06/03/2017 vitamin D, cholecalciferol, 2000 UNITS tablet Take 1 tablet by mouth once daily 90 tablet 1 01/07/2018 Vitamins/Minerals TABS Take 1 tablet by mouth DAILY. 06/03/2017 documented as of this encounter Plan of Treatment Not on file documented as of this encounter Goals Goal Patient Goal Type Associated Problems Recent Progress Patient-Stated? 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 or MRI follow-up advised. Report drafted by Román Winslow (resident) I, Dr. CHRISTOPHER LOVE have personally reviewed and interpreted this examination/study. This report was electronically signed by CHRISTOPHER LOVE ??on 04/26/2020 2:44 PM . Narrative 04/26/2020 2:44 PM FAMILY RESOURCE SPECIALIST Procedure Information DATE: 04/26/2020 10:13 AM EXAMINATION: Computed tomography (CT) of the abdomen with contrast TECHNIQUE: CT of the abdomen was performed following the uneventful administration of 150 mL of Isovue 370 intravenous contrast according to a three-phase liver protocol. Multi-planar reconstructions and reformatted MIP images were produced. Clinical Information HISTORY: K76.0: Fatty (change of) liver, not elsewhere classified K75.81: 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 K74.60: 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 COMPARISON: Abdominal ultrasound dated 07/07/[address] of the abdomen and pelvis without contrast dated 10/19/[address] liver protocol dated 07/09/2017 Findings Lower Chest: Diffuse centrilobular nodules and tree-in-bud opacities in the visualized lungs. Subcarinal and right hilar calcified lymph nodes are seen. Hepatobiliary system Liver morphology: There is significant hypertrophy of the right hepatic lobe and a shrunken appearance of the left hepatic lobe. Varices: None Spleen: Normal. Ascites: None. Focal liver observations Observations compatible with hepatocellular carcinoma by LI-RADS criteria Indeterminate liver observations: There is an 8 mm arterially enhancing observation without washout in hepatic segment 8 (series 8, image 22). There is a 5 mm arterially enhancing observation in hepatic segment 8 without washout (series 8, image 28). There is a 4 mm arterially enhancing observation without washout in hepatic segment 8 (series 8, image 32). There is an 8 mm arterially enhancing observation without washout in hepatic segment 8 (series 8, image 36). There is a 6 mm arterially enhancing observation without washout in hepatic segment 8 (series 8, image 46). There is an 8 mm arterially enhancing observation in hepatic segment 8 that partially washes out on portal venous phase and enhances again on delayed phase (series 8, image 57). This is potentially benign lesion such as atypical appearance of hemangioma. There is a 4 mm arterially enhancing observation with washout in hepatic segment 5/8 (series 8, image 61). There is a focal area of arterial enhancement without washout in hepatic segments 6/7 (series 8, image 59-65). There is focal area of arterial enhancement without washout in the anterior portion of hepatic segment 5 (series 8, image 75) Hepatic vasculature Portal and hepatic veins: Patent. Arterial anatomy: The hepatic arterial anatomy is conventional. Gallbladder and bile ducts Gallbladder: Gallbladder surgically absent. Bile ducts: The intrahepatic and extrahepatic bile ducts are nondilated. Retroperitoneum Pancreas: Normal. Adrenals: Normal. Kidneys: There is a right duplicated collecting system. There are bilateral subcentimeter attenuating lesions that are too small to characterize but likely represent cysts. Otherwise, the kidneys enhance symmetrically. Lymph nodes: No lymphadenopathy in the abdomen or pelvis. Gastrointestinal: Imaged bowel and mesentery are normal. Bones: The visible osseous structures are intact. Procedure Note Christopher Love MD - 04/26/2020 Procedure Information DATE: 04/26/2020 10:13 AM EXAMINATION: Computed tomography (CT) of the abdomen with contrast TECHNIQUE: CT of the abdomen was performed following the uneventful administrationof 150 mL of Isovue 370 intravenous contrast according to a three-phaseliver protocol. Multi-planar reconstructions and reformatted MIP images were produced. Clinical Information HISTORY: K76.0: Fatty (change of) liver, not elsewhere classified K75.81: 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 K74.60: 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 COMPARISON: Abdominal ultrasound dated 07/07/[address] of the abdomenand pelvis without contrast dated 10/19/[address] liver protocol dated 07/09/2017 Findings Lower Chest: Diffuse centrilobular nodules and tree-in-bud opacities in thevisualized lungs. Subcarinal and right hilar calcified lymph nodes are seen. Hepatobiliary system Liver morphology: There is significant hypertrophy of the right hepatic lobe and a shrunken appearance of the left hepatic lobe. Varices: None Spleen: Normal. Ascites: None. Focal liver observations Observations compatible with hepatocellular carcinoma by LI-RADScriteria Indeterminate liver observations: There is an 8 mm arterially enhancing observation without washout in hepatic segment 8 (series 8, image 22). There is a 5 mm arterially enhancing observation in hepatic segment 8 without washout (series 8, image 28). There is a 4 mm arterially enhancing observation without washout in hepatic segment 8 (series 8, image 32). There is an 8 mm arterially enhancing observation without washout in hepatic segment 8 (series 8, image 36). There is a 6 mm arterially enhancing observation without washout in hepatic segment 8 (series 8, image 46). There is an 8 mm arterially enhancing observation in hepatic segment 8 that partially washes out on portal venous phase and enhances again on delayed phase (series 8, image 57). This is potentially benign lesionsuch as atypical appearance of hemangioma. There is a 4 mm arterially enhancing observation with washout in hepatic segment 5/8 (series 8, image 61). There is a focal area of arterial enhancement without washout in hepatic segments 6/7 (series 8, image 59-65). There is focal area of arterial enhancement without washout in the anterior portion of hepatic segment 5 (series 8, image 75) Hepatic vasculature Portal and hepatic veins: Patent. Arterial anatomy: The hepatic arterial anatomy is conventional. Gallbladder and bile ducts Gallbladder: Gallbladder surgically absent. Bile ducts: The intrahepatic and extrahepatic bile ducts are nondilated. Retroperitoneum Pancreas: Normal. Adrenals: Normal. Kidneys: There is a right duplicated collecting system. There are bilateral subcentimeter attenuating lesions that are too small to characterize but likely represent cysts. Otherwise, the kidneys enhance symmetrically. Lymph nodes: No lymphadenopathy in the abdomen or pelvis. Gastrointestinal: Imaged bowel and mesentery are normal. Bones: The visible osseous structures are intact. Impression: Multiple arterial enhancing observations throughout the liver asdetailed above, consistent with LR [address] or MRI follow-up advised. Report drafted by Román Winslow (resident) I, Dr. CHRISTOPHER LOVE have personally reviewed and interpreted this examination/study. This report was electronically signed by CHRISTOPHER LOVE on 04/26/2020 2:44 PM . Sara Joaquin DESK CLERK-WOOL HAT FORMING MACHINE TENDER CT ORDERABLE S * CREATININE - POCT INTERFACED (04/26/2020 9:54 AM FAMILY RESOURCE SPECIALIST) Creatinine POCT 0.80 0.30 - 1.30 mg/dL 04/26/2020 10:06 AM FAMILY RESOURCE SPECIALIST [facility] eGFR >60 >60 mL/min/1.7 3 m2 04/26/2020 10:06 AM FAMILY RESOURCE SPECIALIST [facility] Blood BLOOD SPECIMEN / Unknown 04/26/2020 9:54 AM FAMILY RESOURCE SPECIALIST 04/26/2020 10:06 AM FAMILY RESOURCE SPECIALIST Sara Martinez Jemal DESK CLERK-WOOL HAT FORMING MACHINE TENDER LAB - POINT OF CARE ORDERABLES Performing Organization Address City/State/[facility] Co de Phone Number [facility] [address] [place] [address], [facility] [phone] documented in this encounter Visit Diagnoses Diagnosis Fatty (change of) liver, not elsewhere classified 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) Other chronic nonalcoholic liver disease documented in this encounter Administered Medications Inactive Administered Medications - up to 3 most recent administrations Medication Order MAR Action Action Date Dose Rate Site iopamidol (ISOVUE 370) 76 % contrast Intravenous, CONTRAST ONCE, Starting on 04/26/20 at 0952, Until 04/27/20 at 0134 $ Given - Contrast 04/26/2020 9:58 AM FAMILY RESOURCE SPECIALIST 150 mL documented in this encounter Care Teams Outside Parts Sales Relationship Specialty Start Date End Date Fernie Barfield DO [address] [place] [phone] PCP - General 04/14/17 documented as of this encounter
--- OUTSIDE RECORDS SUMMARY | 2024-05-03 11:16 | XMS_ITS | Encounter Summary ---
Author Organization [facility] Address [address] [place] [address] Care Team Providers Care 3Rd Pressman Name Role Phone Fernie Barfield DO Primary Care Provider Reason for Referral * Radiology Services (Routine) - Closed Specialty Diagnoses / Procedures Referred By Contac t Referred To Contact Diagnoses Other ascites Procedures US PARACENTESIS Kody Turpin MD [address] [place] [address] Referral ID Status Reason Start Date Expiration Date Visits Re quested Visits Authorized [id number] Closed 01/07/2018 07/06/2018 1 1 Reason for Visit * Reason Comments Elevated Liver Enzymes Encounter Details Date Type Department Care Team (Late st Contact Info) Description 01/07/2018 10:20 AM CDT Office Visit [facility] [address] [place] [address] Kody Turpin MD [address] [place] [address] 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) (Primary Dx); Other ascites; Fatty (change of) liver, not elsewhere classified; Severe malnutrition (HCC); Other cirrhosis of liver (HCC); Acute renal failure, unspecified acute renal failure type (HCC); Protein-calorie malnutrition, unspecified severity (HCC) Social History Tobacco Use Types Packs/Day [...] Sign Reading Time Taken Comments Blood Pressure 106/67 01/07/2018 10:22 AM CDT Pulse 85 01/07/2018 10:22 AM CDT Temperature 37 ??C (98.6 ??F) 01/07/2018 10:22 AM CDT Respiratory Rate 18 01/07/2018 10:22 AM CDT Oxygen Saturation 98% 01/07/2018 10:22 AM CDT Inhaled Oxygen Concentration - - Weight 42.8 kg (94 lb 6.4 oz) 01/07/2018 10:22 A M CDT Height 157.5 cm (5' 2 ) 01/07/2018 10:22 AM CDT Body Mass Index 17.27 01/07/2018 10:22 AM CDT documented in this encounter Functional [...] * Patient Instructions* Juan Turpin MD - 01/07/2018 11:23 AM CDT Check (total protein, albumin, cytology) with the next paracentesis. Fax over to my office Genetic iron blood test and fax over to me. Other blood test next week Continue the lasix documented in this encounter Progress Notes * Juan Turpin MD - 01/07/2018 11:02 AM CDT Hepatology clinic new patient visit: Subjective: 57 y.o. yo pt with SALGADO cirrhosis. Referring physician: Dr. Fernie Barfield, DO Since last visit, didn't need any dialysis, HD catheter removed She still needs to be drained every 10 days. 3-5 L removed each time She did gain some weight. Her weight today after the paracentesis was 94 lbs She is getting around 50 gm of protein daily at this point. Eating a small meal every 2-3 hours Following low NA diet Started lasix again 40 mg daily this week In summary: Pt used to follow with [...] marked steatosis, siderosis and findings of obstruction Other ROS: A 12-point ROS was performed [...] no Smoking: yes Lives with Worked in [employer], quit 3 years ago Social History Social History ??? Marital status: Spouse name: N/A ??? Number of children: N/A ??? Years of education: N/A Occupational History ??? Not on file. Social History Main Topics ??? Smoking status: Current Every Day Smoker Packs/day: 0.50 ??? Smokeless tobacco: Former User ??? Alcohol use No ??? Drug use: No ??? Sexual activity: [...] cancer Medications: Outpatient Encounter Prescriptions as of 01/07/2018 Medication Sig Dispense Refill ??? ALPRAZolam (XANAX) 0.5 MG tablet Take 0.5 mg by mouth once daily as needed 0 ??? traMADol (ULTRAM) 50 MG tablet Take 50 mg by mouth once daily as needed 0 ??? fluticasone propionate (FLONASE) 50 MCG/ACT nasal spray USE 2 SPRAYS EACH NOSTRIL EVERY DAY 0 ??? midodrine (PROAMATINE) 5 MG tablet Take 3 tablets by mouth 3 times daily before meals (Patient taking differently: Take 5 mg by mouth 2 times daily ) 60 tablet 3 ??? thiamine (VITAMIN B-1) 50 MG tablet Take 50 mg by mouth DAILY. 30 tablet 5 ??? folic acid (FOLVITE) 1 MG tablet Take 1 mg by mouth DAILY. 30 tablet 5 ??? Vitamins/Minerals TABS Take 1 tablet by mouth DAILY. ??? ondansetron (ZOFRAN) 4 MG tablet Take 4 mg by mouth q8h PRN (Nausea). ??? Probiotic Product (ACIDOPHILUS/GOAT MILK) CAPS Take 1 tablet by mouth DAILY. No facility-administered encounter medications on file as of 01/07/2018. Objective: Physical exam: BP 106/67 Pulse 85 Temp 98.6 ??F (37 ??C) (Oral) Resp 18 Ht 1.575 m (5' 2 ) Wt 42.8 kg (94 lb 6.4 oz) SpO2 98% BMI 17.27 kg/m2 General appearance: cachectic, very thin, alert, oriented, pleasant, in NAD Skin: Skin color, texture, turgor normal, +o spider angiomas. Diffuse ecchymosis Neck: Normal range of motion Eyes: Anicteric sclera Lungs: CTAB, no wheezing or rhonchi Heart: RRR Abdomen: Soft, non-tender, fluid wave present. Bowel sounds normal. No masses, organomegaly Neuro: No asterixis, moving all extremities Psychiatric: Has a normal mood and affect. Speech is normal. Extremities: 1-2+ LE edema. Good capillary refill. Labs: CBC: [...] Non-reactive 10/18/2017 24 hr urine copper 11 Liver biopsy: 01/2017 - Steatohepatitis - Marked ductular reaction, cholestasis, and portal-portal bridging fibrosis - Hepatocellular iron, up to 3+ - See comment Assessment: #1: Cryptogenic cirrhosis, complicated by recurrent ascites She has normal liver function and normal INR, low MELD. Echo is normal #2: Recurrent ascites, high SAAG. Requires paracentesis every 10 days #3: Severe malnutrition #4: Prolonged admission (10/2017) with septic shock, respiratory failure and kidney failure #5: Severe MAINOR, required dialysis until 11/16/2017 Plan: Pt continues to make good recovery, still very malnourished Counseled pt about importance of nutrition, provided plan for 50-60 gm of protein daily Restarted lasix by nephrology, follow up labs in 1 week. May start spironolactone if labs are stable to help controlling her ascites Check for hemochromatosis mutation I may consider getting a new biopsy with portal pressure measurements Continue lactulose Orders Placed This Encounter Procedures ??? US PARACENTESIS ??? HEMOCHROMATOSIS MUTATION PANEL ??? 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
--- OUTSIDE RECORDS SUMMARY | 2024-05-03 11:16 | XMS_ITS | Encounter Summary ---
Author Organization [facility] Address [address] [place] [address] Care Team Providers Care Cake Wringer Name Role Phone Fernie Barfield DO Primary Care Provider Reason for Referral * Radiology Services (Routine) - Closed Specialty Diagnoses / Procedures Referred By Contac t Referred To Contact Ultrasound Diagnoses Fatty (change of) liver, not elsewhere classified Procedures US ABDOMEN LIMITED Saar Joaquin APRN-CNP [address] [place] [address] [facility] [address] [place] [address] Referral ID Status Reason Start Date Expiration Date Visits Re quested Visits Authorized [id number] Closed 01/06/2019 07/14/2019 1 1 Reason for Visit * Reason Comments Liver Problem Cirrhosis Encounter Details Date Type Department Care Team (Late st Contact Info) Description 01/06/2019 11:00 AM CDT Office Visit [facility] - [address] [facility], [place] [address] Sara Joaquin APRN-CNP [address] [place] [address] Fatty (change of) liver, not elsewhere classified (Primary Dx) Social History Tobacco Use Types Packs/Day Years [...] Sign Reading Time Taken Comments Blood Pressure 166/74 01/06/2019 11:03 AM CDT Pulse 85 01/06/2019 11:03 AM CDT Temperature 36.7 ??C (98.1 ??F) 01/06/2019 1 1:03 AM CDT Respiratory Rate 18 01/06/2019 11:0 3 AM CDT Oxygen Saturation 100% 01/06/2019 11: 03 AM CDT Inhaled Oxygen Concentration - - Weight 56.6 kg (124 lb 12.8 oz) 019 11:03 AM CDT Height 157.5 cm (5' 2 ) 01/06/2019 11:0 3 AM CDT Body Mass Index 22.83 01/06/2019 11:03 AM CDT documented in this encounter Functional [...] this encounter Patient Instructions * Patient Instructions* Sara Joaquin APRN-CNP - 01/06/2019 11:48 AM CDT Thank you for entrusting your healthcare to the physicians and other specialists at the [facility] clinic today. Following your visit, you may receive a survey via email or U.S. Mail. We encourage you to respond to this confidential survey about your care. Your feedback helps us to provide quality service at every visit. Thank you for your help in making our practice meet higher expectations. Contact information: To reach the clinic please call (8 am to noon, 1 to 4:30 pm ). ?? Press 1 to make schedule or cancel an appointment ?? Press 2 for pharmacy refills ?? Press 3 to speak with a nurse regarding a change in your condition. ?? Many times your nurse may be busy seeing patients in clinic. In order to meet your needs timely we have implemented a nurse triage line to take your calls. ?? We are closed from 12-1 for lunch ?? After hours please call (hospital main number), ask the rewinder operator helper to call the gastroenterology fellow airport operations specialist. ?? Emergency: call 911 or go to your closest emergency room. We encourage you to use Happy Days to send and receive messages and review your test results. Let us know if you need information on signing up for Happy Days. More information about us and our services can be found on our websites at [email or web address] and [email or web address] Information about the [facility], a fyd-vgn-kndixq foundation supporting liver disease research by your doctors and researchers at [facility], can be found at: [email or web address] IMPORTANT 01/06/2019 The following information and instructions are from your visit today: Ms. Li has not has a LVP since 01/01 She is to continue to eat protein around 45 Gram She is to get her labs today and 1-2 weeks before her Appointment. She is to be scheduled for a u/ on the day of her appointment She is to follow up in the clinic in 6 months She was instructed to call the clinic if she has any questions or concerns. documented in this encounter Progress Notes * Sara Joaquin APRN-CNP - 01/06/2019 11:09 AM CDT Ms. Li is a 58 year old female who presents at the [facility] today for a follow up visit for SALGADO C.She was admitted to the hospital in October for bilateral pneumonia and septic shock, she was on a ventilator. Had an MAINOR and was on HD for about 20 days She was on dailysis December 2017 Her last pacentesis was 01/2018 She denies any HE or forgetfulness, ascites or edema She complains of insomnia at times.and occasiona fatigue and weakness of lower extremities She is accompanied by her Chief Complaint Patient presents with ??? Liver Problem ??? Cirrhosis Patient Active Problem List: Other ascites Fatty (change of) liver, not elsewhere classified Acute encephalopathy 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 Severe malnutrition No past medical history on file. Past Surgical History: Procedure Laterality Date ??? Cholecystectomy, Laparoscopic ??? PARACENTESIS ??? PARACENTESIS, LARGE VOLUME , 10 DAYS AGO 7.5L REMOVED History: Patient denies any new medical or family history Treatment: none Current symptoms: fatigue Yes . Rash yes. Itching no. Abdominal pain no. Joint pain no. Symptoms ofdepression no. Social History Social History Socioeconomic History ??? Marital status: Spouse name: Not on file ??? Number of children: Not on file ??? Years of education: Not on file ??? Highest education level: Not on file Occupational History ??? Not on file Social Needs ??? Financial resource strain: Not on file ??? Food insecurity: Worry: Not on file Inability: Not on file ??? Transportation needs: Medical: Not on file Non-medical: Not on file Tobacco Use ??? Smoking status: Current Every Day Smoker Packs/day: 1.00 Types: Cigarettes ??? Smokeless tobacco: Former User Substance and Sexual Activity ??? Alcohol use: No Comment: Pt states she has an occasional cocktail ??? Drug use: No ??? Sexual activity: Not on file Lifestyle ??? Physical activity: Days per week: Not on file Minutes per session: Not on file ??? Stress: Not on file Relationships ??? Social connections: Talks on phone: Not on file Gets together: Not on file Attends judaism service: Not on file Active member of club or organization: Not on file Attends meetings of clubs or organizations: Not on file Relationship status: Not on file ??? Intimate partner violence: Fear of current or ex partner: Not on file Emotionally abused: Not on file Physically abused: Not on file Forced sexual activity: Not on file Other Topics Concern ??? Not on file Social History Narrative ??? Not on file No past medical history on file. Past Surgical History: Procedure Laterality Date ??? Cholecystectomy, Laparoscopic ??? PARACENTESIS ??? PARACENTESIS, LARGE VOLUME , 10 DAYS AGO 7.5L REMOVED Family History Problem Relation Age of Onset ??? Diabetes - Type 2 Mother Status: ??? Cardiomyopathy Mother ??? None Known Father Status: She describes her current average alcohol consumption as occasional I have reviewed with her regarding her Medical, Social and Family history and I have updated and corrected these sections of his [facility] electronic health record based on my discussions with her and/orher family members present at this visit today. ??She had a cholecystectomy in January 2017 after which she decompensated, developed ascites and started loosing more weight Allergies Allergen Reactions ??? Oxycodone Psychiatric ??? Meperidine Other MS CHANGES, RESP DEPRESSION Current Outpatient Medications Medication Sig ??? ALPRAZolam (XANAX) 0.5 MG tablet Take 0.5 mg by mouth once daily as needed ??? Ascorbic Acid (VITAMIN C PO) Take by mouth once daily ??? B Complex Vitamins (B COMPLEX PO) 1/2 tablet twice daily ??? Biotin 5 MG Take by mouth once daily ??? Digestive Enzymes CAPS Take 1 capsule by mouth 2 times daily ??? fluticasone propionate (FLONASE) 50 MCG/ACT nasal spray as needed ??? folic acid (FOLVITE) 1 MG tablet Take 1 mg by mouth DAILY. ??? MILK THISTLE PO Take by mouth once daily ??? Other Maritime pine- antioxidant- twice daily ??? Probiotic Product (ACIDOPHILUS/GOAT MILK) CAPS Take 1 tablet by mouth DAILY. ??? traMADol (ULTRAM) 50 MG tablet Take 50 mg by mouth once daily as needed ??? vitamin D, cholecalciferol, 2000 UNITS tablet Take 1 tablet by mouth once daily ??? Vitamins/Minerals TABS Take 1 tablet by mouth DAILY. No current facility-administered medications for this visit. I have reviewed and confirmed with Ms. Li her current medications, allergies, social history. Review of systems: HEENT: normal Appetite: good . Fatigue: yes Chest pain: none. Shortness of breath: none. Nausea and vomiting: none. Abdominal pain: none . Reflux or GERD symptoms: none. Constipation or diarrhea: none. Edema: None Musculoskeletal pain: weakness in lower etremites Skin: rashes none Depression: she denies that this is a current problem. All other components of a 14 point review of systems were negative. On exam today,BP 166/74 Pulse 85 Temp 98.1 ??F (36.7 ??C) (Oral) Resp 18 Ht 1.575 m (5' 2 ) Wt 56.6kg (124 lb 12.8 oz) SpO2 100% BMI 22.83 kg/m2 Wt Readings from Last 3 Encounters: 01/06/19 56.6 kg (124 lb 12.8 oz) 07/08/18 46.8 kg (103 lb 3.2 oz) 03/11/18 44.9 kg (98 lb 14.4 oz) I reviewed today's vital signs with the patient. She appeared alert and anicteric. General appearance: Well nourished well developed , in no acute distress HEENT: WNL: yes Eyes: no scleral icterus Lungs were clear to auscultation bilaterally with no dullness. Heart sounds were regular rate and rhythm. There were no murmurs or thrills . Abdomen was soft and nontender, non-distended. Hepatomegaly: none palpable. Splenomegaly: none palpable. Ascites: none. Masses: none. Hernias: none. Musculoskeletal : no joint tenderness or deformity Extremities: without clubbing, cyanosis, Lower extremity edema: none. Mental status: normal affect: alert and oriented Neuro: Alert, following commands, no asterixis Psych: Mood appropriate , cooperative Skin: warm and dry with no rashes .no jaundice, no spider angiomata?? Laboratory test results: Recent Labs Component Name 04/18/18 01/12/18 12/28/17 12/13/17 12/04/17 11/03/17 0727 11/02/17 0646 11/01/17 0629 SODIUM - 137 136* 134* 134* - 133* - - - POTASSIUM - 4 4.4 3.8 3.8 - 3.5* 3.8 3.6 4.5 CHLORIDE - 105 104 101 101 - 96* - - - CO2 23 26 24 24.0 24 - 28 29 29 25 BUN 27* 20* 21* 17 - 18 39* CREATININE - - - - - - 1.3* 1.1 1.6* GLUCOSE - 105* 98 127* 127* - 98 - - - CALCIUM 9.7 8.6* 8.8* 9.0 9 - 8.7* 9.1 9.1 9.4 ALKPHOS - 225* - - - 276* 433* 473* 493* ALT - 14 - - - 20 35 38 33 AST - 26 - - - 46* 51* 60* 58* TBIL - 0.3 - - - 0.5 - - - TPROT - 5* - - - 5.6* - - - EGFR - - - - - - 42* 51* 33* - = values in this interval not displayed. . Recent Labs Component Name 04/18/18 01/12/18 12/28/17 11/03/17 0727 11/02/17 0646 11/01/17 0629 10/29/17 0539 WBC 8.5 6.7 6.6 - 8.5 8.8 9.1 - 10.6* RBC - - - - 2.32* 2.18* 2.09* - 2.31* HGB 12.9 9.5* 10.3* - 7.7* 7.2* 7.0* - 7.6* HCT 37.8* 28.5* 31.2* - 23.8* 22.2* 20.8* - 22.6* MCV - - - - 102.6* 101.8* 99.5* - 97.8* MCHC - - - - 32.4 32.4 33.7 - 33.6 PLTCOUNT - - - - 237 186 159 - 64* NEUTPCT - - - - 76.3* 76.5* - - 80.1* NEUTABS 6.24 4.73 4.47 - 6.5 6.7 7.37* - 8.5* - = values in this interval not displayed. No results for input(s): ALBUMIN in the last 04784 hours. Recent Labs Component Name 04/18/18 01/12/18 12/28/17 INR 1.08 1.02 0.98 Recent Labs Component Name 04/18/18 01/12/18 12/28/17 12/13/17 12/04/17 11/03/17 0727 11/02/17 0646 11/01/17 0629 TBILI - - - - - - - 1.4* 1.4* 1.3* TBIL - 0.3 - - - 0.5 - - - - ALKPHOS - 225* - - - 276* - 433* 473* 493* ALT - 14 - - - 20 - 35 38 33 AST - 26 - - - 46* - 51* 60* 58* ALB 4.1 2.2* 2.2* 2.2* 2.2* - 2.5* - 2.9* 2.9* 2.9* NA 139 - - - - - - 137 137 137 SODIUM - 137 136* 134* 134* - 133* - - - - POTASSIUM - 4 4.4 3.8 3.8 - 3.5* - 3.8 3.6 4.5 CO2 23 26 24 24.0 24 - 28 - 29 29 25 CREATININE - - - - - - - 1.3* 1.1 1.6* BUN 27* 20* 21* 17 17 - 15 - 22 18 39* HGB 12.9 9.5* 10.3* 11.5* 11.5* - 11.1* - 7.7* 7.2* 7.0* WBC 8.5 6.7 6.6 7.0 7 - 6.3 - 8.5 8.8 9.1 PLTCOUNT - - - - - - - 237 186 159 PLT 289 387 411* 450* 450* - 460* - - - - INR 1.08 1.02 0.98 0.93 0.93 - - - 1.1 1.1 1.1 - = values in this interval not displayed. Results for LIROSA ( ) as of 01/06/2019 11:12 Ref. Range 10/18/2017 13:54 10/19/2017 16:02 10/19/2017 16:03 HIV Antigen/Antibody 1 & 2 Latest Ref Range: Non-reactive Non-reactive Hepatitis A Virus Antibody IgM Latest Ref Range: Non-reactive Non-reactive Hepatitis B Core Virus Antibody IgM Latest Ref Range: Non-reactive Non-reactive Hepatitis B Virus Surface Antigen Latest Ref Range: Non-reactive Non-reactive Hepatitis C Antibody Latest Ref Range: Non-reactive Non-reactive MELD-Na score: 6 at 01/12/2018 12:00 AM MELD score: 6 at 01/12/2018 12:00 AM Calculated from: Serum Creatinine: 0.7 mg/dl (Rounded to 1 mg/dl) at 01/12/2018 12:00 AM Serum Sodium: 137 mmol/L at 01/12/2018 12:00 AM Total Bilirubin: 0.3 mg/dL (Rounded to 1 mg/dL) at 01/12/2018 12:00 AM INR(ratio): 1.02 at 01/12/2018 12:00 AM Age: 57 years 10/18/2017 CT scan STUDY TEXT EXAMINATION: Computed tomography (CT) of the abdomen and pelvis without contrast ?? HISTORY: R10.9: Abdominal pain, unspecified abdominal location ?? TECHNIQUE: CT of the abdomen and pelvis was performed without contrast according to standard protocol. ?? COMPARISON: Comparison is made with CT Liver from 07/09/2017 ?? FINDINGS: ?? Evaluation of visceral and vascular structures is limited due to lack of intravenous contrast administration. ?? The aorta is atherosclerotic but normal in caliber. ?? Bilateral small to moderate volume bilateral pleural effusions with associated atelectasis are present. There are diffuse consolidative and groundglass opacities the lung bases, partially imaged. Calcified mediastinal and hilar lymph nodes are noted. The heart size is normal without pericardial effusion. ?? The liver appears normal for the noncontrast technique. The gallbladder is surgically absent. The intrahepatic and extrahepatic bile ducts are nondilated. The pancreas is atrophic. A calcified granuloma is noted in the spleen. The adrenal glands appear normal. Bilateral kidneys are atrophic with nonspecific perinephric stranding. Persistent nephrogram is identified in bilateral kidneys on this noncontrast examination from the prior CT PE protocol performed on 10/15/2017. A cyst is seen arising from the lower pole of the left kidney. No renal, ureteral, or bladder calculi are visible. There is no evidence of hydronephrosis or hydroureter. ?? A nasogastric/orogastric tube terminates in the distal stomach. High attenuation ingested material is noted in the stomach. The distal esophagus and stomach otherwise appear normal. The small bowel and large bowel are normal in caliber without evidence of wall thickening or obstruction. The appendix appears normal without appendicolith or surrounding inflammatory changes. No free air is identified within the abdomen. There is large volume abdominopelvic ascites. There is no abdominal lymphadenopathy. ?? A Johnson catheter terminates within a decompressed urinary bladder. The gas within the urinary bladder is likely related to catheterization. There is high attenuating content within the urinary bladder representing contrast from the prior contrast-enhanced CT. The uterus is normal. There is no pelvic lymphadenopathy. Diffuse body wall anasarca is noted. ?? Bone windows demonstrate no suspicious lytic or blastic lesions. Multilevel degenerative changes are noted. There is thoracolumbar levoscoliosis. ? IMPRESSION: ?? 1. [id number] bilateral pleural effusions with confluent groundglass opacities and consolidation throughout both lungs likely representing pulmonary edema or multifocal pneumonia, not significantly changed from prior exam. ?? 2. Large volume abdominopelvic ascites and diffuse body wall anasarca. ?? 3. Persistent nephrogram in bilateral kidneys on this noncontrast examination likely from the prior CT PE protocol of 10/15/2017. This likely represents systemic hypotension. ? Liver biopsy: 01/2017 - ??Steatohepatitis - ??Marked ductular reaction, cholestasis, and portal-portal bridging fibrosis - ??Hepatocellular iron, up to 3+ U/s [facility] 01/02/2019 Impression Status post cholecystomy with normal size bilary ducts Slight hyperechogenicity of liver suggestive for diffuse fatty liver infiltrate without focal lesion I have reviewed the laboratory studies with Ms. Li Active smoker ->3 min discussing the risks of smoking and counseling cessation ?? spent 25 minutes with the patient, greater than 50% of the time was spent with counseling and coordination of care We discussed The need for at least 45 grams of proteins a day. The need to restrict sodium in the iet to 2000 mg per day. The need to maybe eat several small meals a day. She has gained 20 pounds in 6 months. Also instructed on need to limites sugary food and drinks. Impression: My impression is that Ms. Li has SALGADO No cirrhosis per U/S But had ascites and HE Will continue to monitor Every 6 to 12 months She needs updated labs . No HE Plan: Ms. Li has not has a LVP since 01/01 She is to continue to eat protein around 45 Gram per day She is to get her labs today and 1-2 weeks before her Appointment. She is to be scheduled for a u/ s on the day of her appointment She is to follow up in the clinic in 6 months She was instructed to call the clinic if she has any questions or concerns. Sincerely, Sara Joaquin ADZ WORKER [address] [place] [address] Collaborating Physican Cesar Rossi MD [address] [place] [address] Address letter to: Fernie Barfield, DO [address] [facility] [phone] documented in this encounter Plan of Treatment Scheduled Orders Name Type Priority Associated Diagnoses Orde r Schedule PT-INR Lab Routine Fatty (change of) liver, not elsewhere classified Ordered: 01/06/2019 CBC W/O DIFFERENTIAL Lab Routine Fatty (change of) liver, not elsewhere classified Ordered: 01/06/2019 COMPREHENSIVE METABOLIC PANEL Lab Routine Fatty (change of) liver, not elsewhere classified Ordered: 01/06/2019 CBC WITH DIFFERENTIAL Lab Routine Fatty (change of) liver, not elsewhere classified Ordered: 01/06/2019 COMPREHENSIVE METABOLIC PANEL Lab Routine Fatty (change of) liver, not elsewhere classified Ordered: 01/06/2019 PT-INR Lab Routine Fatty (change of) liver, not elsewhere classified Ordered: 01/06/2019 documented as of this encounter Goals Goal Patient Goal Type Associated Problems Recent Progress Patient-Stated? Author Medication Management General On track( 021 11:11 AM CDT) Kimberly Nicolas, RN Note: Expected end date: ongoing Interventions: Take all medications as prescribed documented as of this encounter Results * US ABDOMEN LIMITED (07/07/2019 10:23 AM FISHER POT) Anatomical Region Laterality Modality Abdomen Ultrasound 07/07/2019 11:5 5 AM FISHER POT Impressions 07/07/2019 12:48 PM FISHER POT IMPRESSION: 1. Hepatic steatosis and cirrhosis. 2. Ill-defined hypoechoic observation measuring up to 16 mm in the right hepatic lobe. Diagnostic considerations include focal fatty sparing (given hepatic steatosis), benign liver lesion such as adenoma or hemangioma, or malignancy such as hepatocellular carcinoma. Liver MRI without and with intravenous gadolinium is recommended for further evaluation. 3. Limited evaluation of the liver dome, attention on follow-up MRI is recommended. Dictated by Jose Gill MD (radiology administrator). I, Dr. ASHLYN COONEY M.D. have personally reviewed and interpreted this examination/study. This report was electronically signed by ASHLYN COONEY M.D. ??on 07/07/2019 12:48 PM . Narrative 07/07/2019 12:48 PM FISHER POT EXAMINATION: Limited abdominal sonogram HISTORY: K76.0: Fatty (change of) liver, not elsewhere classified COMPARISON: Comparison is made with a study from 10/18/2017 FINDINGS: Liver dome is incompletely imaged due to patient body habitus. The liver is increased in echogenicity, consistent with a steatosis. The hepatic surface is mildly nodular. No intrahepatic biliary dilation is seen. Focal ill-defined hypoechogenicity measuring up to 1.6 cm is seen in the right hepatic lobe. Color Doppler evaluation demonstrates patency of the hepatic and portal veins. The gallbladder is not seen. The common bile duct is nondilated, measuring 4 mm. The right kidney measures 10.0 x 5.3 x 4.4 cm. Limited views of the right kidney reveal no evidence of hydronephrosis. Hyperechoic focus measuring 4 mm with twinkle artifact is seen in the right renal midpole which could represent small stone versus calcification. The spleen measures 9.3 cm in length. The visible pancreas is normal in echogenicity. Small calcified splenic granulomas are indicative of prior granulomatous disease. No ascites is present. Procedure Note Ashlyn Cooney MD - 07/07/2019 EXAMINATION: Limited abdominal sonogram HISTORY: K76.0: Fatty (change of) liver, not elsewhere classified COMPARISON: Comparison is made with a study from 10/18/2017 FINDINGS: Liver dome is incompletely imaged due to patient body habitus. The liver is increased in echogenicity, consistent with a steatosis. The hepatic surface is mildly nodular. No intrahepatic biliary dilation is seen.Focal ill-defined hypoechogenicity measuring up to 1.6 cm is seen in the right hepatic lobe. Color Doppler evaluation demonstrates patency of thehepatic and portal veins. The gallbladder is not seen. The common bile duct is nondilated,measuring 4 mm. The right kidney measures 10.0 x 5.3 x 4.4 cm. Limited views of theright kidney reveal no evidence of hydronephrosis. Hyperechoic focus measuring4 mm with twinkle artifact is seen in the right renal midpole which could represent small stone versus calcification. The spleen measures 9.3 cmin length. The visible pancreas is normal in echogenicity. Small calcified splenic granulomas are indicative of prior granulomatous disease. No ascites is present. IMPRESSION: 1. Hepatic steatosis and cirrhosis. 2. Ill-defined hypoechoic observation measuring up to 16 mm in the right hepatic lobe. Diagnostic considerations include focal fatty sparing(given hepatic steatosis), benign liver lesion such as adenoma or hemangioma,or malignancy such as hepatocellular carcinoma. Liver MRI without and with intravenous gadolinium is recommended for further evaluation. 3. Limited evaluation of the liver dome, attention on follow-up MRI is recommended. Dictated by Jose Gill MD (radiology administrator). I, Dr. ASHLYN COONEY M.D. have personally reviewed and interpretedthis examination/study. This report was electronically signed by ASHLYN COONEY M.D. on 07/07/2019 12:48 PM . Sara Joaquin HOUSE SUPERINTENDENT-RISK REDUCTION COUNSELOR US ORDERABLE S documented in this encounter Visit Diagnoses Diagnosis Fatty (change of) liver, not elsewhere classified- Primary Fatty (change of) liver, not elsewhere classified documented in this encounter Care Teams Cake Wringer Relationship Specialty Start Date End Date Fernie Barfield DO [address] [place] [id number] PCP - General 04/14/17 documented as of this encounter
--- OUTSIDE RECORDS SUMMARY | 2024-05-03 11:16 | XMS_ITS | Encounter Summary ---
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
--- OUTSIDE RECORDS SUMMARY | 2024-05-03 11:16 | XMS_ITS | Encounter Summary ---
Author Organization [facility] Address [address] [place] [address] Care Team Providers Care Rental Sales Representative Name Role Phone Fernie Barfield DO Primary Care Provider Reason for Visit * Reason Comments Cirrhosis Follow up Encounter Details Date Type Department Care Team (Late st Contact Info) Description 07/08/2018 11:00 AM CRUDE TESTER Office Visit [facility] [address] [place] [address] Kody Turpin MD [address] [place] [address] 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) (Primary Dx); Severe malnutrition (HCC); Other ascites; Other cirrhosis of liver (HCC); Acute renal [...] Sign Reading Time Taken Comments Blood Pressure 154/83 07/08/2018 11:28 AM CRUDE TESTER Pulse 91 07/08/2018 11:28 AM CRUDE TESTER Temperature 37.1 ??C (98.7 ??F) 07/08/2018 11:[address] Respiratory Rate 18 07/08/2018 11:28 AM CRUDE TESTER Oxygen Saturation 98% 07/08/2018 11:28 AM CRUDE TESTER Inhaled Oxygen Concentration - - Weight 46.8 kg (103 lb 3.2 oz) 07/08/2018 11:28 AM CRUDE TESTER Height 157.5 cm (5' 2 ) 07/08/2018 11:28 AM CRUDE TESTER Body Mass Index 18.88 07/08/2018 11:28 AM CRUDE TESTER documented in this encounter Functional Status Functional [...] as of this encounter Progress Notes * Juan Turpin MD - 07/08/2018 11:36 AM CST Hepatology clinic follow up patient visit: Subjective: 57 y.o. yo pt with SALGADO cirrhosis. Referring physician: Dr. Fernie Barfield, DO She didn't need any paracentesis in 5 months, was getting it every 10 days before. Stopped lasix She is gaining more strength, exercising, walking Pt denies any confusion or change in mental status, no hematemesis or hematochezia, no change in abdominal girth, no edema. Gained 5 lbs since last visit In summary: Pt used to follow with [...] tobacco: Former User ??? Alcohol use No Comment: Pt states she has an [...] cancer Medications: Outpatient Encounter Prescriptions as of 07/08/2018 Medication Sig Dispense Refill ??? ALPRAZolam (XANAX) 0.5 MG tablet Take 0.5 mg by mouth once daily as needed 0 ??? Digestive Enzymes CAPS Take 1 capsule by mouth 2 times daily ??? fluticasone propionate (FLONASE) 50 MCG/ACT nasal spray USE 2 SPRAYS EACH NOSTRIL EVERY DAY 0 ??? folic acid (FOLVITE) 1 MG tablet Take 1 mg by mouth DAILY. 30 tablet 5 ??? [DISCONTINUED] ondansetron (ZOFRAN) 4 MG tablet Take 4 mg by mouth q8h PRN (Nausea). (Patient not taking: Reported on 03/11/2018) ??? Probiotic Product (ACIDOPHILUS/GOAT MILK) CAPS Take 1 tablet by mouth DAILY. ??? thiamine (VITAMIN B-1) 50 MG tablet Take 50 mg by mouth DAILY. 30 tablet 5 ??? traMADol (ULTRAM) 50 MG tablet Take 50 mg by mouth once daily as needed 0 ??? vitamin D, cholecalciferol, 2000 UNITS tablet Take 1 tablet by mouth once daily 90 tablet 1 ??? Vitamins/Minerals TABS Take 1 tablet by mouth DAILY. No facility-administered encounter medications on file as of 07/08/2018. Objective: Physical exam: BP 154/83 Pulse 91 Temp 98.7 ??F (37.1 ??C) (Oral) Resp 18 Ht 1.575 m (5' 2 ) Wt 46.8 kg (103 lb 3.2 oz) SpO2 98% BMI 18.88 kg/m2 General appearance: cachectic, very thin, alert, [...] SAAG. Requires paracentesis but none since January 2018 #3: Severe malnutrition #4: Prolonged admission (10/2017) with septic shock, respiratory failure and kidney failure #5: Severe MAINOR, required dialysis until 11/16/2017 #6: Osteopenia, DEXA scan 03/2018 Plan: Pt continues to make good recovery, still malnourished MELD is low Counseled pt about importance of nutrition, provided plan for 50-60 gm of protein daily No indication for EGD Not interested in vaccinations Due for US for HCC screening RTC in 6 months Orders Placed This Encounter Procedures ??? US ABDOMEN LIMITED Ángel Turpin MD Attending physician Division of Hepatology July 08, 2018 E TESTER documented in this encounter Plan of Treatment Not on file documented as of this encounter Visit Diagnoses Diagnosis 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)- Primary Other chronic nonalcoholic liver disease Severe malnutrition (HCC) Nutritional marasmus Other ascites Other cirrhosis of liver (HCC) Acute renal failure, unspecified acute renal failure type (HCC) Protein-calorie malnutrition, unspecified severity (HCC) documented in this encounter Care Teams Rental Sales Representative Relationship Specialty Start Date End Date Fernie Barfield DO [address] [place] [phone] PCP - General 04/14/17 documented as of this encounter
--- OUTSIDE RECORDS SUMMARY | 2024-05-03 11:16 | XMS_ITS | Encounter Summary ---
Author Organization [facility] Address [address] [facility] [place] [address] Care Team Providers Care Commercial Collections Driver Name Role Phone Fernie Barfield DO Primary Care Provider [phone] Reason for Visit * Reason Comments Hernandez Follow up Encounter Details Date Type Department Care Team (Late st Contact Info) Description 12/10/2017 11:20 AM CDT Office Visit [facility] [address] [place] [address] Kody Turpin MD [address] [place] [address] 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) (Primary Dx); Low ceruloplasmin level (HCC) Social History Tobacco [...] Sign Reading Time Taken Comments Blood Pressure 109/73 12/10/2017 11:19 AM CDT Pulse 84 12/10/2017 11:19 AM CDT Temperature 37 ??C (98.6 ??F) 12/10/2017 11:19 AM CDT Respiratory Rate 16 12/10/2017 11:19 AM CDT Oxygen Saturation 100% 12/10/2017 11:19 AM CDT Inhaled Oxygen Concentration - - Weight 41.4 kg (91 lb 4.8 oz) 12/10/2017 11:19 A M CDT Height 157.5 cm (5' 2 ) 12/10/2017 11:19 AM CDT Body Mass Index 16.7 12/10/2017 11:19 AM CDT documented in this encounter Functional [...] * Patient Instructions* Juan Turpin MD - 12/10/2017 12:06 PM CDT You need about 50-60 gm of protein daily High Protein Diet WHAT YOU NEED TO KNOW: A high-protein diet is a meal plan that includes extra protein. Your body may need extra protein ifyou have certain health conditions, such as cancer, garcia, or ulcers. You may also need to follow this diet to get stronger after a surgery or illness. Extra protein helps to heal wounds and form newtissue in the body. Your dietitian will tell you how much protein and how many calories you need eac h day. DISCHARGE INSTRUCTIONS: Foods high in protein: The average amount of protein is listed below in grams (g). To find the exact amount of protein in a food, read the food labels on packaged items. ?? Dairy: ?? 1 cup of any type of milk (8 g) ? cup of evaporated canned milk (9 g) ? cup of nonfat dry milk (11 g) ?? 1 ounce of semihard or solid cheese (7 g) ? cup of parmesan cheese (8 g) ? cup of cottage cheese (14 g) ? cup of pudding (4 g) ?? 1 cup of plain or fruit yogurt (8 g) ?? Meats and meat substitutes: ?? 3 ounces of cooked freshwater fish (21 g) ?? 3 ounces of cooked shellfish (19 g) ? cup of canned tuna (14 g) ?? 3 ounces of cooked chicken, turkey, or other poultry (24 g) ?? 3 ounces of cooked beef, pork, ken, or other red meat (21 g) ?? 1 large egg (6 g) ? cup of fat free egg substitute (5 g) ? cup of tofu or tempeh (10 g) ?? 1 cup of cooked dried beans, such as ferreira, kidney, or navy (15 g) ?? Nuts and seeds: ?? 2 tablespoons of almonds, cashews, sunflower seeds, or walnuts (5 g) ?? 2 tablespoons of peanuts (7 g) ?? 2 tablespoons of peanut butter (8 g) How to add extra protein: ?? Add powdered milk to milk, cereals, scrambled eggs, soups, and casseroles. ?? Add cheese to sauces, soups, or vegetables. ?? Add eggs to tuna, salads, sauces, or casseroles. ?? Add nutrition supplements and breakfast drink mixes to milk or shakes. ?? Add nuts to foods or eat them as snacks. ?? Add meat (beef, chicken, and pork) to soups, casseroles, pasta dishes, or vegetables. ?? Add beans, peas, and other legumes to salads. ?? Eat cottage cheese or yogurt with fruit. ?? 2017 [employer] Information is for End User's use only and may not be sold, redistributed or otherwise used for commercial purposes. All illustrations and images included in CareNotes?? are the copyrighted property of [employer] or [employer]. The above information is an ed educational aide only. It is not intended as medical advice for individual conditions or treatments. Talk to your doctor, nurse or pharmacist before following any medical regimen to see if it is safe and effective for you. documented in this encounter Progress Notes * Juan Turpin MD - 12/10/2017 11:33 AM CDT Hepatology clinic new patient visit: Subjective: 57 y.o. yo pt with HERNANDEZ cirrhosis. Referring physician: Dr. Fernie Barfield, DO Pt used to follow with Sara Joaquin [...] Biopsy of the liver was done intra-op (MO-bap) Other ROS: A 12-point ROS was performed [...] Not Prioritized ??? Liver cirrhosis secondary to HERNANDEZ 10/19/2017 Priority: Not Prioritized ??? Cor pulmonale (chronic) 10/19/2017 Priority: Not Prioritized ??? Septic shock 10/14/2017 Priority: Not Prioritized ??? Hypo-osmolality and hyponatremia 08/07/2017 ??? Other ascites 06/10/2017 ??? Fatty (change [...] cancer Medications: Outpatient Encounter Prescriptions as of 12/10/2017 Medication Sig Dispense Refill ??? ALPRAZolam (XANAX) [...] mouth once daily as needed 0 ??? [DISCONTINUED] pantoprazole EC (PROTONIX) 40 MG tablet Take 1 tablet by mouth once daily 30 tablet 1 ??? [DISCONTINUED] promethazine (PHENERGAN) 25 MG tablet Take 25 mg by mouth q8h PRN (Nausea). 90 tablet 1 No facility-administered encounter medications on file as of 12/10/2017. Objective: Physical exam: BP 109/73 Pulse 84 Temp 98.6 ??F (37 ??C) (Oral) Resp 16 Ht 1.575 m (5' 2 ) Wt 41.4 kg (91 lb 4.8 oz) SpO2 100% BMI 16.7 kg/m2 General appearance: cachectic, very thin, alert, oriented, pleasant, in NAD Skin: Skin color, texture, turgor normal, +o spider angiomas. Diffuse ecchymosis Neck: Normal range of motion Eyes: Anicteric sclera Lungs: CTAB, no wheezing or rhonchi Heart: RRR Abdomen: Soft, non-tender, distended with fluid wave. Bowel sounds normal. No masses, organomegaly Neuro: No asterixis, moving all extremities Psychiatric: Has a normal mood and affect. Speech is normal. Extremities: 1-2+ LE edema. Good capillary refill. Labs: CBC: Lab Results Component Value Date WBC 6.3 12/04/2017 RBC 2.32 (L) 11/03/2017 HGB 11.1 (Abnormal) 12/04/2017 HCT 33.7 (Abnormal) 12/04/2017 MCV 102.6 (H) 11/03/2017 MCH 33.2 11/03/2017 MCHC 32.4 11/03/2017 RDW 22.2 (H) 11/03/2017 PLT 460 (Abnormal) 12/04/2017 MPV 9.0 (L) 11/03/2017 BMP: Lab Results Component Value Date GLU 84 11/03/2017 NA 137 11/03/2017 K 3.4 (L) 10/14/2017 CL 98 11/03/2017 CO2 27 12/06/2017 BUN 15 12/06/2017 CREATININE 1.3 (H) 11/03/2017 CALCIUM 8.4 (Abnormal) 12/06/2017 Coagulation: Lab Results Component Value Date PT 14.2 11/24/2017 INR 1.08 11/24/2017 Lab Results Component Value Date ALT 20 12/04/2017 AST 46 (Abnormal) 12/04/2017 ALKPHOS 276 (Abnormal) 12/04/2017 ALB 2.5 (Abnormal) 12/04/2017 TBILI 1.4 (H) 11/03/2017 DBILI 0.7 (H) 10/29/2017 Hepatitis panel: Lab Results Component Value Date HEPAIGM Non-reactive 10/18/2017 HEPBIGM Non-reactive 10/18/2017 HEPCAB Non-reactive 10/18/2017 Assessment: #1: Cryptogenic cirrhosis, complicated by recurrent ascites She has normal liver function and normal INR, low MELD. Echo is normal #2: Recurrent ascites, high SAAG. Requires paracentesis every 10 days #3: Severe malnutrition #4: Recent admission (10/2017) with septic shock, respiratory failure and kidney failure #5: Severe MAINOR, required dialysis until 11/16/2017 Plan: Pt is making good recovery, still very malnourished Counseled pt about importance of nutrition, provided plan for 50-60 gm of protein daily Continue to follow with nephrology and monitor labs Continue to hold diuretics Will get biopsy slides from [facility] to check if it shows evidence of cirrhosis or steatosis Check 24 hr urine copper collection. Check for RASHAAD-D I may consider getting a new biopsy with portal pressure measurements Continue lactulose Orders Placed This Encounter Procedures ??? COPPER URINE TIMED ??? LYSOSOMAL ACID LIPASE DEFICIENCY (RASHAAD-D) Ángel Turpin MD Attending physician Division of Hepatology December 10, 2017 documented in this encounter Plan of Treatment Scheduled Orders Name Type Priority Associated Diagnoses Orde r Schedule COPPER URINE TIMED Lab Routine 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) Low ceruloplasmin level (HCC) Ordered: 12/10/2017 LYSOSOMAL ACID LIPASE DEFICIENCY (RASHAAD-D) Lab Routine 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) Low ceruloplasmin level (HCC) Expected: 12/10/2017, Expires: 06/12/2018 documented as of this encounter Visit Diagnoses Diagnosis 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)- Primary 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
--- OUTSIDE RECORDS SUMMARY | 2024-05-03 11:16 | XMS_ITS | Encounter Summary ---
Author Organization [facility] Address [address] [place] [address] Care Team Providers Care Modeling Instructor Name Role Phone Fernie Barfield DO Primary Care Provider Encounter Details Date Type Department Care Team (Late st Contact Info) Description 04/01/2018 Orders Only [facility] GI [address] [place] [address] Kody Turpin MD [address] [place] [address] Other ascites Social History Tobacco Use Types [...] ascites documented in this encounter Care Teams Modeling Instructor Relationship Specialty Start Date End Date Fernie Barfield DO [address] [place] [phone] PCP - General 04/14/17 documented as of this encounter
--- OUTSIDE RECORDS SUMMARY | 2024-05-03 11:16 | XMS_ITS | Encounter Summary ---
Author Organization [facility] Address [address] [place] [address] Care Team Providers Care Maintenance Truck Driver Name Role Phone Fernie Barfield DO Primary Care Provider [phone] Encounter Details Date Type Department Care Team (Late st Contact Info) Description 11/26/2017 Orders Only [facility] - GI [address] [facility], [place] [address] Sara Joaquin, ACCOUNTS PAYABLE PAYROLL COORDINATOR-INFORMATICS PHYSICIAN LIAISON [address] [place] [phone] Social History Tobacco Use Types Packs/Day Years [...] on filedocumented in this encounter Care Teams Maintenance Truck Driver Relationship Specialty Start Date End Date Fernie Barfield DO [address] [place] [phone] PCP - General 04/14/17 documented as of this encounter
--- OUTSIDE RECORDS SUMMARY | 2024-05-03 11:16 | XMS_ITS | Encounter Summary ---
Author Organization [facility] Address [address] [place] [address] Care Team Providers Care Composition Teacher Name Role Phone Fernie Barfield DO Primary Care Provider [phone] Reason for Visit * Reason Comments Fatty Liver Encounter Details Date Type Department Care Team (Late st Contact Info) Description 04/26/2020 11:30 AM EXCHANGE TROUBLE SHOOTER Office Visit [facility] [address] [place] [phone] Sara Joaquin, REGULATORY AFFAIRS COORDINATOR-HALL DIRECTOR [address] [phone] 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) (Primary Dx) Social History Tobacco Use Types [...] COVID-19? No / Unsure 04/26/2020 9:39 AM EXCHANGE TROUBLE SHOOTER documented as of this encounter Last Filed Vital Signs Vital Sign Reading Time Taken Comments Blood Pressure 148/77 04/26/2020 10:30 AM EXCHANGE TROUBLE SHOOTER Pulse 85 04/26/2020 10:30 AM EXCHANGE TROUBLE SHOOTER Temperature 36.2 ??C (97.1 ??F) 04/26/2020 10:[address] Respiratory Rate 18 04/26/2020 10:30 AM EXCHANGE TROUBLE SHOOTER Oxygen Saturation 100% 04/26/2020 10:30 AM EXCHANGE TROUBLE SHOOTER Inhaled Oxygen Concentration - - Weight 62.6 kg (138 lb) 04/26/2020 10:30 AM EXCHANGE TROUBLE SHOOTER Height 157.5 cm (5' 2 ) 04/26/2020 10:30 AM EXCHANGE TROUBLE SHOOTER Body Mass Index 25.24 04/26/2020 10:30 AM EXCHANGE TROUBLE SHOOTER documented in this encounter Functional Status Functional [...] encounter Patient Instructions * Patient Instructions* Sara Joaquin, REGULATORY AFFAIRS COORDINATOR-HALL DIRECTOR - 04/26/2020 11:11 AM EXCHANGE TROUBLE SHOOTER Thank you for entrusting your healthcare to the physicians and other specialists at the [facility] clinic today. Following [...] am to noon, 1 to 4:30 pm weekdays). ?? Press 1 to make schedule or [...] please call (hospital main number), ask the bag loader machine operator to call the gastroenterology fellow fitness consultant. ?? Emergency: call 911 or go to your closest emergency room. We encourage you to use [employer] to send and receive messages and review your test results. Let us know if you need information on signing up for [employer]. More information about us and our services can be found on our websites at [email or web address] Information about the [facility] of the [facility], a zso-ljr-jsebfn foundation supporting liver disease research by your doctors and researchers at [facility], can be found at: [email or web address] [email or web address] for new phone # New clinic contact info starting Jan 15, 2020 IMPORTANT 04/26/2020 The following information and instructions are from your visit today: Ms. Li has not has a LVP since 01/01 She is to continue to eat protein around 45 Gram per day She is frinking protein drinks She is to get her labs 1-2 weeks before her Appointment. She is to be scheduled for a ct scan on the day of her appointment She is to follow up in the clinic in 6 months She was instructed to call the clinic if she has any questions or concerns. ANGE TROUBLE SHOOTER documented in this encounter Progress Notes * Sara Joaquin APRN-CNP - 04/26/2020 10:46 AM CST Ms. Li is a 59 year old female who presents at the [facility] today for a follow up visit for fatty liver .She was admitted to the hospital in October for bilateral pneumonia and septic shock, she was on a ventilator. Had an MAINOR and was on HD for about 20 days She was on dailysis December 2017 Her last pacentesis was 01/2018 She denies any HE or forgetfulness, ascites or edema Nausea or vomiting . She states she is eating well Chief Complaint Patient presents with ??? Fatty Liver Patient Active Problem List: Other ascites Fatty (change of) liver, not elsewhere classified Acute encephalopathy 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 Severe malnutrition Past Medical History: Diagnosis Date ??? Disorder of liver ??? Hypertension Past Surgical History: Procedure Laterality Date ??? Cholecystectomy, Laparoscopic ??? MAMMOGRAM 05/2019 ??? PARACENTESIS ??? PARACENTESIS, LARGE VOLUME , 10 DAYS AGO 7.5L REMOVED History: Patient denies any new medical or family history Social History Socioeconomic History ??? Marital status: Spouse name: Not on file ??? Number of children: Not on file ??? Years of education: Not on file ??? Highest education level: Not on file Occupational History ??? Not on file Social Needs ??? Financial resource strain: Not on file ??? Food insecurity Worry: Not on file Inability: Not on file ??? Transportation needs Medical: Not on file Non-medical: Not on file Tobacco Use ??? Smoking status: Current Every Day Smoker Packs/day: 0.50 Types: Cigarettes ??? Smokeless tobacco: Former User Substance and Sexual Activity ??? Alcohol use: Yes Comment: Pt states she has an occasional cocktail ??? Drug use: No ??? Sexual activity: Not on file Lifestyle ??? Physical activity Days per week: Not on file Minutes per session: Not on file ??? Stress: Not on file Relationships ??? Social connections Talks on phone: Not on file Gets together: Not on file Attends jain service: Not on file Active member of club or organization: Not on file Attends meetings of clubs or organizations: Not on file Relationship status: Not on file ??? Intimate partner violence Fear of current or ex partner: Not on file Emotionally abused: Not on file Physically abused: Not on file Forced sexual activity: Not on file Other Topics Concern ??? Not on file Social History Narrative ??? Not on file Past Medical History: Diagnosis Date ??? Disorder of liver ??? Hypertension Past Surgical History: Procedure Laterality Date ??? Cholecystectomy, Laparoscopic ??? MAMMOGRAM 05/2019 ??? PARACENTESIS ??? PARACENTESIS, LARGE VOLUME , 10 DAYS AGO 7.5L REMOVED Family History Problem Relation Name Age of Onset ??? Diabetes - Type 2 Mother Status: ??? Cardiomyopathy Mother ??? None Known Father Status: She describes her current average alcohol consumption as 2 times a week either wine or one shot of rum with cola I have reviewed with her regarding her Medical, Social and Family history and I have updated and corrected these sections of his [facility] electronic health record based on my discussions with her and/orher family members present at this visit today. Allergies Allergen Reactions ??? Oxycodone Psychiatric ??? Meperidine Other MS CHANGES, RESP DEPRESSION Current Outpatient Medications Medication Sig ??? ALPRAZolam (XANAX) 0.5 MG tablet Take 0.5 mg by mouth once daily as needed ??? amLODIPine (NORVASC) 5 MG tablet once daily ??? Ascorbic Acid (VITAMIN C PO) Take by mouth once daily ??? B Complex Vitamins (B COMPLEX PO) 1/2 tablet twice daily ??? Biotin 5 MG Take by mouth once daily ??? Digestive Enzymes CAPS Take 1 capsule by mouth 2 times daily ??? EVENING PRIMROSE OIL PO Take by mouth once daily ??? fluticasone propionate (FLONASE) 50 MCG/ACT nasal spray as needed ??? folic acid (FOLVITE) 1 MG tablet Take 1 mg by mouth DAILY. ??? MILK THISTLE PO Take by mouth once daily ??? Other Maritime pine- antioxidant- twice daily ??? Probiotic Product (ACIDOPHILUS/GOAT MILK) CAPS Take 1 tablet by mouth DAILY. ??? vitamin D, cholecalciferol, 2000 UNITS tablet Take 1 tablet by mouth once daily ??? Vitamins/Minerals TABS Take 1 tablet by mouth DAILY. No current facility-administered medications for this visit. Facility-Administered Medications Ordered in Other Visits Medication ??? iopamidol (ISOVUE 370) 76 % contrast I have reviewed and confirmed with Ms. Li her current medications, allergies, social history. Review of systems: HEENT: normal Appetite: good . Fatigue: none Chest pain: none. Shortness of breath: none. Nausea and vomiting: none. Abdominal pain: none . Reflux or GERD symptoms: none. Constipation or diarrhea: none. Edema: None Musculoskeletal pain: none Skin: rashes none Depression: she denies that this is a current problem. All other components of a 14 point review of systems were negative. On exam today,BP 148/77 (BP SITE: RIGHT ARM, BP POSITION: SITTING, BP CUFF SIZE: 11) Pulse 85 Temp 97.1 ??F (36.2 ??C) (Temporal) Resp 18 Ht 1.575 m (5' 2 ) Wt 62.6 kg (138 lb) SpO2 100% BMI 25.24 kg/m2 Wt Readings from Last 3 Encounters: 04/26/20 62.6 kg (138 lb) 07/07/19 62.1 kg (136 lb 14.4 oz) 01/06/19 56.6 kg (124 lb 12.8 oz) I reviewed today's vital signs with [...] with no rashes .no jaundice, no spider angiomata Laboratory test results: Recent Labs Component Name 04/26/20 0954 06/23/19 01/09/19 04/18/18 01/12/18 11/03/17 0727 11/03/17 0727 11/02/17 0646 11/01/17 0629 SODIUM - 140 142 - 137 - - - - POTASSIUM - 4.8 4.3 - 4 - 3.8 3.6 4.5 CHLORIDE - 104 106 - 105 - - - - CO2 - 28 24 23 26 - 29 29 25 BUN - 15 27* 27* 20* - 22 18 39* CREATININE - - - - - - 1.3* 1.1 1.6* GLUCOSE - 123* 110* - 105* - 84 87 98 CALCIUM - 10.0 10.4* 9.7 8.6* - 9.1 9.1 9.4 ALKPHOS - 281* 241* - 225* - 433* 473* 493* ALT - 44 33 - 14 - 35 38 33 AST - 64* 54* - 26 - 51* 60* 58* TBIL - 0.9 0.9 - 0.3 - - - - TPROT - 7.1 7.3 - 5* - - - - EGFR >60 79 69 - - - 42* 51* 33* - = values in this interval not displayed. . Recent Labs Component Name 06/23/19 01/09/19 04/18/18 11/03/17 0711/03/17 0727 11/02/17 0646 11/01/17 0629 10/29/17 0539 10/29/17 0539 WBC 8.4 9.6 8.5 - 8.5 8.8 9.1 - 10.6* RBC - - - - 2.32* 2.18* 2.09* - 2.31* HGB 12.9 12.9 12.9 - 7.7* 7.2* 7.0* - 7.6* HCT 38.7 39.0 37.8* - 23.8* 22.2* 20.8* - 22.6* MCV - - - - 102.6* 101.8* 99.5* - 97.8* MCHC - - - - 32.4 32.4 33.7 - 33.6 PLTCOUNT - - - - 237 186 159 - 64* NEUTPCT - - - - 76.3* 76.5* - - 80.1* NEUTABS 6.07 7.13 6.24 - 6.5 6.7 7.37* - 8.5* - = values in this interval not displayed. Recent Labs Component Name 06/23/19 01/09/19 04/18/18 INR 0.99 0.96 1.08 Recent Labs Component Name 06/23/19 01/09/19 04/18/18 01/12/18 11/03/17 0727 11/03/17 0727 11/02/17 0646 11/01/17 0629 TBILI - - - - - 1.4* 1.4* 1.3* TBIL 0.9 0.9 - 0.3 - - - - ALKPHOS 281* 241* - 225* - 433* 473* 493* ALT 44 33 - 14 - 35 38 33 AST 64* 54* - 26 - 51* 60* 58* ALB 4.2 4.5 4.1 2.2* - 2.9* 2.9* 2.9* NA - - 139 - - 137 137 137 SODIUM 140 142 - 137 - - - - POTASSIUM 4.8 4.3 - 4 - 3.8 3.6 4.5 CO2 28 24 23 26 - 29 29 25 CREATININE - - - - - 1.3* 1.1 1.6* BUN 15 27* 27* 20* - 22 18 39* HGB 12.9 12.9 12.9 9.5* - 7.7* 7.2* 7.0* WBC 8.4 9.6 8.5 6.7 - 8.5 8.8 9.1 PLTCOUNT - - - - - 237 186 159 PLT 233 264 289 387 - - - - INR 0.99 0.96 1.08 1.02 - 1.1 1.1 1.1 - = values in this interval not displayed. MELD-Na score: 6 at 06/23/2019 12:00 AM MELD score: 6 at 06/23/2019 12:00 AM Calculated from: Serum Creatinine: 0.8 mg/dl (Rounded to 1 mg/dl) at 06/23/2019 12:00 AM Serum Sodium: 140 mmol/L (Rounded to 137 mmol/L) at 06/23/2019 12:00 AM Total Bilirubin: 0.9 mg/dL (Rounded to 1 mg/dL) at 06/23/2019 12:00 AM INR(ratio): 0.99 (Rounded to 1) at 06/23/2019 12:00 AM Age: 58 years 7 months Active smoker ->3 min discussing the risks of smoking and counseling cessation Her lab results of 04/25/2020 revealed A hemoglobin of 13.6, a hematocrit of 39.7, a platelet count of 228,000, Study Result EXAMINATION: Limited abdominal sonogram 07/07/2019 ?? HISTORY: K76.0: Fatty (change of) liver, not elsewhere classified ?? COMPARISON: Comparison is made with a study from 10/18/2017 ?? FINDINGS: ?? Liver dome is incompletely imaged due to patient body habitus. The liver is increased in echogenicity, consistent with a steatosis. The hepatic surface is mildly nodular. No intrahepatic biliary dilation is seen. Focal ill-defined hypoechogenicity measuring up to 1.6 cm is seen in the right hepatic lobe. Color Doppler evaluation demonstrates patency of the hepatic and portal veins. ?? The gallbladder is not seen. The common bile duct is nondilated, measuring 4 mm. ?? The right kidney measures 10.0 x 5.3 [...] prior granulomatous disease. No ascites is present. ? IMPRESSION: ?? 1. Hepatic steatosis and cirrhosis. ?? 2. Ill-defined hypoechoic observation measuring up to 16 mm in the right hepatic lobe. Diagnostic considerations include focal fatty sparing (given hepatic steatosis), benign liver lesion such as adenoma or hemangioma, or malignancy such as hepatocellular carcinoma. Liver MRI without and with intravenous gadolinium is recommended for further evaluation. ?? 3. Limited evaluation of the liver dome, attention on follow-up MRI is recommended. Liver biopsy: 01/2017 - ??Steatohepatitis - ??Marked ductular reaction, cholestasis, and portal-portal bridging fibrosis - ??Hepatocellular iron, up to 3+ ?? Procedure Information ?? DATE: 04/26/2020 10:13 AM ?? EXAMINATION: Computed tomography (CT) of the abdomen with contrast ?? TECHNIQUE: CT of the abdomen was performed following the uneventful administration of 150 mL of Isovue 370 intravenous contrast according to a three-phase liver protocol. Multi-planar reconstructions and reformatted MIP images were produced. ?? Clinical Information ?? HISTORY: K76.0: Fatty (change of) liver, not elsewhere classified K75.81: 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 K74.60: 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 ?? COMPARISON: Abdominal ultrasound dated 07/07/[address] of the abdomen and pelvis without contrast dated 10/19/[address] liver protocol dated 07/09/2017 ?? Findings ?? Lower Chest: Diffuse centrilobular nodules and tree-in-bud opacities in the visualized lungs. Subcarinal and right hilar calcified lymph nodes are seen. ?? Hepatobiliary system Liver morphology: There is significant hypertrophy of the right hepatic lobe and a shrunken appearance of the left hepatic lobe. Varices: None Spleen: Normal. Ascites: None. ?? Focal liver observations Observations compatible with hepatocellular carcinoma by LI-RADS criteria ?? Indeterminate liver observations: There is an 8 mm arterially enhancing observation without washout in hepatic segment 8 (series 8, image 22). ?? There is a 5 mm arterially enhancing observation in hepatic segment 8 without washout (series 8, image 28). ?? There is a 4 mm arterially enhancing observation without washout in hepatic segment 8 (series 8, image 32). ?? There is an 8 mm arterially enhancing observation without washout in hepatic segment 8 (series 8, image 36). ?? There is a 6 mm arterially enhancing observation without washout in hepatic segment 8 (series 8, image 46). ?? There is an 8 mm arterially enhancing observation in hepatic segment 8 that partially washes out on portal venous phase and enhances again on delayed phase (series 8, image 57). This is potentially benign lesion such as atypical appearance of hemangioma. ?? There is a 4 mm arterially enhancing observation with washout in hepatic segment 5/8 (series 8, image 61). ?? There is a focal area of arterial enhancement without washout in hepatic segments 6/7 (series 8, image 59-65). ?? There is focal area of arterial enhancement without washout in the anterior portion of hepatic segment 5 (series 8, image 75) ?? Hepatic vasculature Portal and hepatic veins: Patent. Arterial anatomy: The hepatic arterial anatomy is conventional. ?? Gallbladder and bile ducts Gallbladder: Gallbladder surgically absent. Bile ducts: The intrahepatic and extrahepatic bile ducts are nondilated. ?? Retroperitoneum Pancreas: Normal. Adrenals: Normal. Kidneys: There is a right duplicated collecting system. There are bilateral subcentimeter attenuating lesions that are too small to characterize but likely represent cysts. Otherwise, the kidneys enhance symmetrically. Lymph nodes: No lymphadenopathy in the abdomen or pelvis. ?? Gastrointestinal: Imaged bowel and mesentery are normal. ?? Bones: The visible osseous structures are intact. ? Impression: ?? Multiple arterial enhancing observations throughout the liver as detailed above, consistent with LR [address] CT or MRI follow-up advised. ?? I have reviewed the laboratory studies with Ms. Li Impression: My impression is that patient has fatty liver Cirrhosis No HE not on lactulose or xifaxan No ascites not on diuretics HCC surveillance. Patients has multiple LR 3 lesion in liver mostly in segment 8 Will need [address] scan in 6 months Alcohol use. We discussed the effects of alcohol on her liver ad potential cause of further liver damage Plan: Ms. Li has not has a LVP since 01/01 She is to continue to eat protein around 45 Gram per day She is drinking protein drinks She is to get her labs 1-2 weeks before her appointment. She is to be scheduled for a ct scan on the day of her appointment She is to follow up in the clinic in 6 months She was instructed to call the clinic if she has any questions or concerns. ?? Sincerely, Sara BOLANOS [facility] Level [address] [place] [address] Collaborating Physican Elder Arizmendi MD Multidisciplinary Clinic Level [address] [place] [address] Address letter to: Fernie Barfield DO [address] [place] [address] ANGE TROUBLE SHOOTER documented in this encounter Plan of Treatment Scheduled Orders Name Type Priority Associated Diagnoses Orde r Schedule CBC WITH DIFFERENTIAL Lab Routine 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) Ordered: 04/26/2020 COMPREHENSIVE METABOLIC PANEL Lab Routine 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) Ordered: 04/26/2020 PT-INR Lab Routine 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) Ordered: 04/26/2020 documented as of this encounter Goals Goal Patient Goal Type Associated Problems Recent Progress Patient-Stated? Author Medication Management General On track( 021 11:11 AM CDT) Kimebrly Nicolas, RN Note: Expected end date: ongoing Interventions: Take all medications as prescribed documented as of this encounter Visit Diagnoses Diagnosis 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)- Primary Other chronic nonalcoholic liver disease documented in this encounter Care Teams Composition Teacher Relationship Specialty Start Date End Date Fernie Barfield DO [address] [place] [address] PCP - General 04/14/17 documented as of this encounter
--- OUTSIDE RECORDS SUMMARY | 2024-05-03 11:16 | XMS_ITS | Encounter Summary ---
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 Case: [id number] ? Authorizing Provider: ??Juan Turpin, ??Collected: ? 12/16/2017 03:25 PM ? MD ? Ordering Location: ? [facility] GI 302 ? Received: ?12/16/2017 03:26 PM ? Pathologist: ? Emelina Spears MD ? Specimen: ?Slide Consultation, OSC: [id number] ? 12/31/2017 2:03 PM [facility] Final Diagnosis Liver, needle biopsy (OSC: [id number], 02/10/17) - Steatohepatitis - Marked ductular reaction, cholestasis, and portal-portal bridging fibrosis - Hepatocellular iron, up to 3+ - See comment Gallbladder vesicles cystectomy (OSC: [id number], 02/10/17): - Chronic cholecystitis 12/31/2017 2:03 PM [facility] Microscopic Description and Comment Sections of the biopsy are remarkable for both severe macrovesicular steatosis in a panlobular distribution (>95%, grade 3) and exuberant ductular reaction expanding nearly every portal tract, along with cholestasis. Regarding the steatosis, it is predominantly large droplet macrovesicular, though there are foci of microvesicular fat and megamitochondria. Many cells show degenerative changes suggestive of ballooning, but the appearance is confounded by cholestasis. At least focally, there are cells consistent with ballooning. Lobular inflammation is mild. Regarding the ductular reaction, it is present circumferentially in all portal tracts and is mostly 2-4 ductular profiles thick. In the portal tract, there is no overt bile duct loss or signs of specific bile duct injury (lymphocytosis or granulomatous inflammation), though some bile ducts appear small or slightly irregular. Mild inflammatory infiltrates consisting of lymphocytes and neutrophils are seen in the portal tracts. Bile plugs are present as are signs of intrahepatocellular cholestasis. Feathery degeneration of cholate stasis is not seen, though this is difficult to assess with such marked steatosis. A CK7 stain was performed and highlights the marked ductular reaction as well as interlobular bile ducts. Periportal hepatocytes stain for CK7 (biliary metaplasia), though this difficult to appreciate with so much steatosis. A copper stain was performed and shows no copper granules. The trichrome stain highlights marked portal and periportal expansion due to fibrosis and ductular reaction. In areas, there is portal-portal bridging along with ductular reaction, and even early nodularity. Where seen, the central veins are relatively small and unremarkable, though few foci of delicate perisinusoidal fibrosis are seen. The PASd is negative for vzjxl-3-nlyfvkrnipq globules. The iron stain highlights 3/4+ hepatocellular deposits in a zone 1-3 gradient, as well as portal macrophages and few punctate reticuloendothelial deposits. The steatosis, lobular inflammation, and likely ballooned cells are consistent with steatohepatitis. In the correct clinical setting, the findings would support a diagnosis of non-alcoholic steatohepatitis (AMADEO = 5/8; steatosis 3, inflam 1, balloon 1). In a setting of liver injury such as this, ductular proliferation can develop as a reactive process. However, such marked ductular reaction and cholestasis as seen in this case are not typical features of fatty liver disease. Rather, this may represent a second (cholestatic) process involving the liver. No obvious granulomas or lymphocytic bile duct injury are seen as in primary biliary cholangitis, no periductal fibrosis are seen as in small duct primary sclerosing cholangitis, and no copper deposits are present to further support chronic cholestatic liver disease. Instead, the ductular reaction and cholestasis suggest prior or intermittent/recurren t obstruction (e.g. stones) or other secondary cholangitis; portal edema and acute inflammation as in acute obstruction are not present. Iron deposition is also present, and may warrant evaluation for iron overload. Staging in this case is difficult. The fibrosis is predominantly portal based, and the portal-portal bridging with ductular reaction is a pattern associated with biliary disease rather than steatohepatitis. There is only very focal delicate perisinusoidal fibrosis more likely reflecting steatohepatitic injury. 12/31/2017 2:03 PM [facility] Clinical History The patient is a 57-year-old female with history of SALGADO cirrhosis who was admitted to the hospital in October for bilateral pneumonia and septic shock. 12/31/2017 2:03 PM [facility] Materials Received Received are 8 slide(s) labeled [id number] along with a copy of the outside pathology report. Additionally received are 6 unstained slides also labeled [id number], from which 1 H&E, 1 special stain, and 1 immunostain are generated at [facility]. The materials originate from [facility], [address] [place], [place] [id number]. All original materials are returned to the referring institution, along with a copy of our final report. 12/31/2017 2:03 PM CDT [facility] PATH[facility] Disclaimer The performance characteristics of all immunohistochemical and indirect immunofluorescence stains (if any) cited in this report were determined by the Histopathology Laboratory of [facility]. Some of these tests were developed by our own laboratory and have not been cleared or approved by the US Food and Drug Administration. The FDA does not require this test to go through premarket FDA review. These tests are used for clinical purposes. They should not be regarded as investigational or for research. This laboratory is certified under the Clinical Laboratory Improvement Amendments (CLIA) as qualified to perform high complexity clinical laboratory testing. This case has been personally reviewed and interpreted by the attending (teaching) pathologist. 12/31/2017 2:03 PM CDT [facility] Embedded Images 12/31/2017 2:03 PM CDT [facility] Pathology/Cytolo gy SURGICAL PATHOLOGY CONSULTATION AND REPORT ON REFERRED SLIDES PREPARED ELSEWHERE / Unknown 12/16/2017 3:25 PM CDT 12/16/2017 3:26 PM CDT Kody Turpin MD LAB - PATHOLOGY/CYTOLOGY ORDERABLES [facility] [address] [facility] [phone] documented in this encounter Visit Diagnoses Diagnosis 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)- Primary Other chronic nonalcoholic liver disease documented in this encounter Care Teams Rubber Moulding Machine Operator Relationship Specialty Start Date End Date Fernie Barfield DO [address] [place] [phone] PCP - General 04/14/17 documented as of this encounter
--- OUTSIDE RECORDS SUMMARY | 2024-05-03 11:16 | XMS_ITS | Encounter Summary ---
Author Organization [facility] Address [address] [facility] [place] [address] Care Team Providers Care Food Assembler Name Role Phone Fernie Barfield DO Primary Care Provider Encounter Details Date Type Department Care Team (Late st Contact Info) Description 03/04/2018 Orders Only [facility] GI [address] [place] [address] Kody Turpin MD [address] [place] [address] Other ascites Social History Tobacco Use Types [...] ascites documented in this encounter Care Teams Food Assembler Relationship Specialty Start Date End Date Fernie Barfield DO [address] [place] [phone] PCP - General 04/14/17 documented as of this encounter
--- OUTSIDE RECORDS SUMMARY | 2024-05-03 11:16 | XMS_ITS | Encounter Summary ---
Author Organization [facility] Address [address] [facility] [place] [address] Care Team Providers Care Skip Tracer Name Role Phone Fernie Barfield DO Primary Care Provider [phone] Reason for Visit * Reason Comments Cirrhosis Encounter Details Date Type Department Care Team (Late st Contact Info) Description 07/07/2019 10:40 AM SNAKER Office Visit [facility] - GI [address] [facility] [place] [address] Sara Joaquin, EXECUTIVE STAFF ASSISTANT-MICRO LAB ANALYST [address] [place] [address] Fatty (change of) liver, not elsewhere classified [...] Sign Reading Time Taken Comments Blood Pressure 157/74 07/07/2019 10:45 AM SNAKER Pulse 77 07/07/2019 10:45 AM SNAKER Temperature 36.6 ??C (97.9 ??F) 07/07/2019 1 0:45 AM SNAKER Respiratory Rate 18 07/07/2019 10:4 5 AM SNAKER Oxygen Saturation 100% 07/07/2019 10: 45 AM SNAKER Inhaled Oxygen Concentration - - Weight 62.1 kg (136 lb 14.4 oz) 020 10:45 AM SNAKER Height 157.5 cm (5' 2 ) 07/07/2019 10:4 5 AM SNAKER Body Mass Index 25.04 07/07/2019 10:45 AM SNAKER documented in this encounter Functional Status Functional [...] Patient Instructions * Patient Instructions* Sara Joaquin, EXECUTIVE STAFF ASSISTANT-MICRO LAB ANALYST - 07/07/2019 11:54 AM SNAKER Thank you for entrusting your healthcare to the physicians and other specialists at the [facility] Gastroenterology and Hepatology clinic today. Following your [...] please call (hospital main number), ask the welt pocket machine operator to call the gastroenterology fellow liquefaction supervisor. ?? Emergency: call 911 or go to your closest emergency room. We encourage you to use [email or web address] to send and receive messages and review your test results. Let us know if you need information on signing up for [email or web address]. More information about us and our services can be found on our websites at [email or web address] and [email or web address] Information about the [facility] the [facility], a wxb-pxu-ecgxvd foundation supporting liver disease research by your doctors and researchers at [facility], can be found at: [email or web address] IMPORTANT 07/07/2019 The following information and instructions are from your visit today: Ms. Li is to to eat pfood s high in protein, . She is to get her labs in 3 months and then 1-2 weeks before her appointment She will be scheduled for an u/s the day of her appointment. She is to follow up in the clinic in 6 months She was instructed to call the clinic if she has any questions or concerns. ER documented in this encounter Progress Notes * Sara Joaquin APRN-CNP - 07/07/2019 11:20 AM CST Ms. Li is a 58 year old female who presents at the [facility] today for a follow up visit for hepatitis C. She . Had her last LVP was 01/2018 . She is accompanied by her . She denies any fatigue ,abdomial pain , nausea or vomiting She walks when the weather is lay and she us exercise at home daily Chief Complaint Patient presents with ??? Cirrhosis Patient Active Problem List: Other ascites Fatty (change of) liver, not elsewhere classified Acute encephalopathy Liver cirrhosis secondary to MONTIEL Severe malnutrition Past Medical History: Diagnosis Date ??? Disorder of liver Past Surgical History: Procedure Laterality Date ??? Cholecystectomy, Laparoscopic ??? MAMMOGRAM 05/2019 ??? PARACENTESIS ??? PARACENTESIS, LARGE VOLUME , 10 DAYS AGO 7.5L REMOVED History: Patient denies any new medical or family history Social History Social History Socioeconomic History ??? [...] file Gets together: Not on file Attends holiness service: Not on file Active member of [...] History: Diagnosis Date ??? Disorder of liver Past Surgical History: Procedure Laterality Date ??? Cholecystectomy, Laparoscopic ??? MAMMOGRAM 05/2019 ??? PARACENTESIS ??? PARACENTESIS, LARGE VOLUME , 10 DAYS AGO 7.5L REMOVED Family History Problem Relation Name Age of Onset ??? Diabetes - Type 2 Mother Status: ??? Cardiomyopathy Mother ??? None Known Father Status: . She describes her current average alcohol consumption as occasional glass of wine I have reviewed with her regarding her Medical, Social and Family history and I have updated and corrected these sections of his [facility] electronic health record based on my [...] of systems were negative. On exam today,BP 157/74 (BP SITE: RIGHT ARM, BP POSITION: SITTING, BP CUFF SIZE: 11) Pulse 77 Temp 97.9 ??F (36.6 ??C) (Oral) Resp 18 Ht 1.575 m (5' 2 ) Wt 62.1 kg (136 lb 14.4 oz) SpO2 100% BMI 25.04 kg/m2 Wt Readings from Last 3 Encounters: 07/07/19 62.1 kg (136 lb 14.4 oz) 01/06/19 56.6 kg (124 lb 12.8 oz) 07/08/18 46.8 kg (103 lb 3.2 oz) I reviewed today's vital signs with the patient. She appeared alert and anicteric. General appearance: Well nourished well developed , in no acute distress HEENT: WNL: yes Eyes: no scleral icterus Lungs were clear to auscultation bilaterally with no dullness. Heart sounds were regular rate and rhythm. There were no murmurs or thrills . Abdomen was soft and tender, non-distended.upper right quadrant Hepatomegaly: none palpable. Splenomegaly: none palpable. Ascites: [...] Laboratory test results: Recent Labs Component Name 06/23/19 01/09/19 04/18/18 01/12/18 12/04/17 11/03/17 0727 11/02/17 0646 11/01/17 0629 SODIUM 140 142 - 137 - 133* - - - - POTASSIUM 4.8 4.3 - 4 - 3.5* - 3.8 3.6 4.5 CHLORIDE 104 106 - 105 - 96* - - - - CO2 28 24 23 26 - 28 - 29 29 25 BUN 15 27* 27* 20* - 15 - 22 18 39* CREATININE - - - - - - - 1.3* 1.1 1.6* GLUCOSE 123* 110* - 105* - 98 - 84 87 98 CALCIUM 10.0 10.4* 9.7 8.6* - 8.7* - 9.1 9.1 9.4 ALKPHOS 281* 241* - 225* - 276* - 433* 473* 493* ALT 44 33 - 14 - 20 - 35 38 33 AST 64* 54* - 26 - 46* - 51* 60* 58* TBIL 0.9 0.9 - 0.3 - 0.5 - - - - TPROT 7.1 7.3 - 5* - 5.6* - - - - EGFR 79 69 - - - - - 42* 51* 33* - = values in this interval not displayed. . Recent Labs Component Name 06/23/19 01/09/19 04/18/18 11/03/1772611/02/17 0646 11/01/17 0629 10/29/17 0539 WBC 8.4 9.6 8.5 - [...] results for input(s): ALBUMIN in the last 17658 hours. Recent Labs Component Name 06/23/19 01/09/19 04/18/18 INR 0.99 0.96 1.08 Recent Labs Component Name 06/23/19 01/09/19 04/18/18 01/12/18 11/03/17 0727 11/02/17 0646 11/01/17 0629 TBILI [...] at 06/23/2019 12:00 AM Age: 58 years U/s pending I have reviewed the laboratory studies with Ms. Li Active smoker ->3 min discussing the risks of smoking and counseling cessation ?? I spent 25 minutes with the patient, greater than 50% of the time was spent with counseling and coordination of care discussing the diagnosis fatty liver elevated alkaline phosphatase and the need to do further testing. may have to consider a liver biopsy Impression: My impression is that Ms. Li has montiel fatty liver and will need to avoid alcohol and to includeproteins and less surgary drinks and food in her diet. Will continue HCC surveillance every 6-12 months No ascites. No HE Plan: Ms. Li is to to eat food high in protein, Too avoid surgary foods and drinks She is to get her labs in 3 months and then 1-2 weeks before her appointment She will be scheduled for an u/s the day of her appointment. She is to follow up in the clinic in 6 months She was instructed to call the clinic if she has any questions or concerns. Sincerely, Sara BOLANOS [address] [place] [address] Collaborating Physican Cesar Rossi MD [address] [place] [address] Address letter to: Fernie Barfield DO [address] [facility] [phone] ER documented in this encounter Plan of Treatment Scheduled Orders Name Type Priority Associated Diagnoses Orde r Schedule CBC WITH DIFFERENTIAL Lab Routine Fatty (change of) liver, not elsewhere classified Ordered: 07/07/2019 COMPREHENSIVE METABOLIC PANEL Lab Routine Fatty (change of) liver, not elsewhere classified Ordered: 07/07/2019 PT-INR Lab Routine Fatty (change of) liver, not elsewhere classified Ordered: 07/07/2019 CERULOPLASMIN Lab Routine Fatty (change of) liver, not elsewhere classified Ordered: 07/07/2019 SMOOTH MUSCLE ANTIBODY Lab Routine Fatty (change of) liver, not elsewhere classified Expected: 07/08/2019 (Approximate), Expires: 01/03/2020 MITOCHONDRIAL ANTIBODY W REFLEX TO TITER Lab Routine Fatty (change of) liver, not elsewhere classified Ordered: 07/07/2019 MARILEE BLOOD SCREEN W/REFLEX TITER Lab Routine Fatty (change of) liver, not elsewhere classified Ordered: 07/07/2019 [id number]-4-[id number] PHENOTYPE BLOOD Lab Routine Fatty (change of) liver, not elsewhere classified Ordered: 07/07/2019 CPVAI-[id number] BLOOD Lab Routine Fatty (change of) liver, not elsewhere classified Ordered: 07/07/2019 CBC WITH DIFFERENTIAL Lab Routine Fatty (change of) liver, not elsewhere classified Expected: 07/08/2019 (Approximate), Expires: 01/03/2020 COMPREHENSIVE METABOLIC PANEL Lab Routine Fatty (change of) liver, not elsewhere classified Ordered: 07/07/2019 PT-INR Lab Routine Fatty (change of) liver, not elsewhere classified Ordered: 07/07/2019 documented as of this encounter Goals Goal Patient Goal Type Associated Problems Recent Progress Patient-Stated? Author Medication Management General On track( 021 11:11 AM CDT) Kimberly Nicolas, RN Note: Expected end date: ongoing Interventions: Take all medications as prescribed documented as of this encounter Visit Diagnoses Diagnosis Fatty (change of) liver, not elsewhere classified- Primary documented in this encounter Care Teams Skip Tracer Relationship Specialty Start Date End Date Fernie Barfield DO [address] [place] [address] PCP - General 04/14/17 documented as of this encounter
--- OUTSIDE RECORDS SUMMARY | 2024-05-03 11:16 | XMS_ITS | Encounter Summary ---
Author Organization [facility] Address [address] [facility] [place] [address] Care Team Providers Care Assistant Branch Operations Manager Name Role Phone Fernie Barfield DO Primary Care Provider [phone] Reason for Referral * Radiology Services (Routine) - Closed Specialty Diagnoses / Procedures Referred By Michelle cee Referred To Contact CT Scan Diagnoses Fatty (change of) liver, not elsewhere classified 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) Procedures CT ABDOMEN MULTI PHASE W CONT Sara Joaquin, FISH ROE TECHNICIAN-SPRINKLER TRUCK DRIVER [address] [place] [address] [place] [address] [facility] [address] [place] [address] Referral ID Status Reason Start Date Expiration Date Visits Re quested Visits Authorized [id number] Closed 07/10/2019 05/15/2020 1 1 ER Reason for Visit * Reason Onset Date Comments Results 07/10/2019 Encounter Details Date Type Department Care Team (Late st Contact Info) Description 07/10/2019 Telephone [facility] - [address] [facility], [place] [address] Sara Joaquin APRN-CNP [address] [place] [phone] Results Social History Tobacco Use Types Packs/Day Years [...] Telephone Encounter - Sara Joaquin APRN-CNP - 07/10/2019 11:07 AM DIALER Spoke with patient she hs a 1.6cm area in the right heaptic lobe.. on the 07/09/2017 Ct scan she hada 1.4cm x0.7 cm area on segment 8 that was classified as a cyst she will have a Ct scan schedueld on the day or her next appointment . She verbalized understanding ER documented in this encounter Plan of Treatment Not on file documented as of this encounter Goals Goal Patient Goal Type Associated Problems Recent Progress Patient-Stated? Author Medication Management General On track( 021 11:11 AM CDT) Kimberly Nicolas, RN Note: Expected end date: ongoing Interventions: Take all medications as prescribed documented as of this encounter Results * CT ABDOMEN MULTI PHASE W CONT (04/26/2020 10:12 AM DIALER) Anatomical Region Laterality Modality Abdomen Computed Tomogra phy 04/26/2020 10:3 9 AM DIALER Impressions 04/26/2020 2:44 PM DIALER Impression: Multiple arterial enhancing observations throughout the liver as detailed above, consistent with LR [address] CT or MRI follow-up advised. Report drafted by Román Winslow (resident) I, Dr. CHRISTOPHER LOVE have personally reviewed and interpreted this examination/study. This report was electronically signed by CHRISTOPHER LOVE ??on 04/26/2020 2:44 PM . Narrative 04/26/2020 2:44 PM DIALER Procedure Information DATE: 04/26/2020 10:13 AM EXAMINATION: [...] on 04/26/2020 2:44 PM . 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
--- OUTSIDE RECORDS SUMMARY | 2024-05-03 11:16 | XMS_ITS | Encounter Summary ---
Author Organization [facility] Address [address] [facility] [place] [address] Care Team Providers Care Senior Reactor Operator Name Role Phone Fernie Barfield DO Primary Care Provider Reason for Visit * Reason Onset Date Comments Follow-up 11/09/2017 Encounter Details Date Type Department Care Team (Late st Contact Info) Description 11/09/2017 Telephone [facility] - GI [address] [facility] [place] [address] Sara Joaquin, CHAPTER RELATIONS ADMINISTRATOR-OBSTETRICIAN/GYNECOLOGIST [address] [place] [phone] Follow-up Social History Tobacco Use Types Packs/Day [...] Telephone Encounter - Sara Joaquin APRN-CNP - 11/09/2017 3:45 PM CDT 11/08/2017 Spoke with patients he stated That hsi can not get the paracentesis done related to ehr anemia.. He states that her PCP wants her to come to [facility] for the procedure and get a blood transfusion as she is anemic. He is going to talk to his PCP and see if he can get procedures done locally. Instructed to call the clinic if any other concerns documented in this encounter Plan of Treatment Not on file documented as of this encounter Visit Diagnoses Not on filedocumented in this encounter Care Teams Senior Reactor Operator Relationship Specialty Start Date End Date Fernie Barfield DO [address] [place] [phone] PCP - General 04/14/17 documented as of this encounter
--- OUTSIDE RECORDS SUMMARY | 2024-05-03 11:16 | XMS_ITS | Encounter Summary ---
Author Organization [facility] Address [address] [facility] [address] Care Team Providers Care Pharmacy Student Name Role Phone Fernie aBrfield DO Primary Care Provider Encounter Details Date Type Department Care Team (Late st Contact Info) Description 04/29/2018 Orders Only [facility] [phone] [place] [address] Kody Turpin MD [address] [place] [address] Other ascites Social History Tobacco Use Types [...] ascites documented in this encounter Care Teams Pharmacy Student Relationship Specialty Start Date End Date Fernie Barfield DO [address] [place] [phone] PCP - General 04/14/17 documented as of this encounter
--- OUTSIDE RECORDS SUMMARY | 2024-05-03 11:16 | XMS_ITS | Encounter Summary ---
Author Organization [facility] Address [address] [facility] [place] [address] Care Team Providers Care Tank House Operator Name Role Phone Fernie Barfield DO Primary Care Provider Encounter Details Date Type Department Care Team (Late st Contact Info) Description 02/04/2018 Orders Only [facility] [address] [place] [address] Kody Turpin MD [address] [place] [address] Other ascites Social History Tobacco Use Types [...] ascites documented in this encounter Care Teams Tank House Operator Relationship Specialty Start Date End Date Fernie Barfield DO [address] [place] [phone] PCP - General 04/14/17 documented as of this encounter
--- OUTSIDE RECORDS SUMMARY | 2024-05-03 11:16 | XMS_ITS | Encounter Summary ---
Author Organization [facility] Address [address] [facility] [address] Care Team Providers Care Internal Medicine Physician Name Role Phone Fernie Barfield DO Primary Care Provider Encounter Details Date Type Department Care Team (Late st Contact Info) Description 03/18/2018 Orders Only [facility] [address] [place] [address] Kody Turpin MD [address] [place] [address] Other ascites Social History Tobacco Use Types [...] ascites documented in this encounter Care Teams Internal Medicine Physician Relationship Specialty Start Date End Date Fernie Barfield DO [address] [place] [phone] PCP - General 04/14/17 documented as of this encounter
--- OUTSIDE RECORDS SUMMARY | 2024-05-03 11:16 | XMS_ITS | Encounter Summary ---
Author Organization [facility] Address [address] [place] [address] Care Team Providers Care Adoption Agent Name Role Phone Fernie Barfield DO Primary Care Provider [phone] Encounter Details Date Type Department Care Team (Late st Contact Info) Description 04/15/2018 Orders Only [facility] [address] [place] [address] Kody Turpin MD [address] [place] [address] Other ascites Social History Tobacco Use Types [...] ascites documented in this encounter Care Teams Adoption Agent Relationship Specialty Start Date End Date Fernie Barfield DO [address] [place] [phone] PCP - General 04/14/17 documented as of this encounter
--- OUTSIDE RECORDS SUMMARY | 2024-05-03 11:16 | XMS_ITS | Encounter Summary ---
Author Organization [facility] Address [address] [place] [address] Care Team Providers Care Chemistry Specialist Name Role Phone Fernie Barfield DO Primary Care Provider [phone] Encounter Details Date Type Department Care Team (Late st Contact Info) Description 07/08/2019 Orders Only [facility] [address] [facility], [place] [address] Sara Joaquin, BLOCKING MACHINE TENDER-JUVENILE CORRECTIONS OFFICER [address] [place] [phone] Fatty (change of) liver, not elsewhere classified Social History Tobacco Use Types Packs/Day Years [...] classified documented in this encounter Care Teams Chemistry Specialist Relationship Specialty Start Date End Date Fernie Barfield DO [address] [place] [phone] PCP - General 04/14/17 documented as of this encounter
--- OUTSIDE RECORDS SUMMARY | 2024-05-03 11:16 | XMS_ITS | Encounter Summary ---
Author Organization [facility] Address [address] [place] [address] Care Team Providers Care Asset Availability Leader Name Role Phone Fernie Barfield DO Primary Care Provider Encounter Details Date Type Department Care Team (Latest Contact Info) Description 01/02/2020 Travel Social History Tobacco Use Types Packs/Day Years [...] or suspected to have Coronavirus / COVID-19? Unable to assess 01/02/2020 9:27 AM CDT documented as of this encounter Functional Status [...] on filedocumented in this encounter Care Teams Asset Availability Leader Relationship Specialty Start Date End Date Fernie Barfield DO [address] [place] [phone] PCP - General 04/14/17 documented as of this encounter
--- OUTSIDE RECORDS SUMMARY | 2024-05-03 11:16 | XMS_ITS | Encounter Summary ---
Author Organization [facility] Address [address] [facility] [place] [address] Care Team Providers Care Lumber Loader Name Role Phone Fernie Barfield DO Primary Care Provider [phone] Encounter Details Date Type Department Care Team (Late st Contact Info) Description 02/18/2018 Orders Only [facility] [address] [place] [address] Kody Turpin MD [address] [place] [address] Other ascites Social History Tobacco Use Types [...] ascites documented in this encounter Care Teams Lumber Loader Relationship Specialty Start Date End Date Fernie Barfield DO [address] [place] [phone] PCP - General 04/14/17 documented as of this encounter
--- OUTSIDE RECORDS SUMMARY | 2024-05-03 11:16 | XMS_ITS | Encounter Summary ---
Author Organization [facility] Address [address] [facility] [place] [address] Care Team Providers Care Securities Research Analyst Name Role Phone Fernie Barfield DO Primary Care Provider [phone] Reason for Visit * Reason Onset Date Comments Follow-up 02/07/2021 Encounter Details Date Type Department Care Team (Late st Contact Info) Description 02/07/2021 Telephone [facility] [address] [facility], [place] [address] Sara Joaquin, FRONT DESK REPRESENTATIVE-[employer] [address] [place] [address] Follow-up Social History Tobacco Use [...] Telephone Encounter - Sara Joaquin APRN-CNP - 02/07/2021 10:30 AM CDT called he does not want his ( patient) to have the ct scan with contrast. He does not want this injected into her body. He states that she was lethargic for 7 days and confused for 4-[address] scan. Immediately following the ct scan she was fine and stopped to eat on their way following the scan. Explained to the that patient needs to have this kind of imaging, because she has several LR 3 observations that need continued monitoring he wants an U/s . Explained to patient that this imaging would not evaluate these areas effectively. Spoke with radiology Isovue isthe only contrast used for ct scans. Different contrast can be used for a MRI with and without contrast will cancel ct scan and discuss this issue with patient and at his appointment documented in this encounter Plan of Treatment [...] on filedocumented in this encounter Care Teams Securities Research Analyst Relationship Specialty Start Date End Date Fernie Barfield DO [address] [place] [phone] PCP - General 04/14/17 documented as of this encounter
--- OUTSIDE RECORDS SUMMARY | 2024-05-03 11:16 | XMS_ITS | Encounter Summary ---
Author Organization [facility] Address [address] [facility] [place] [address] Care Team Providers Care Bird Cage Assembler Name Role Phone Fernie Barfield DO Primary Care Provider [phone] Encounter Details Date Type Department Care Team (Late st Contact Info) Description 01/21/2018 Orders Only [facility] [address] [place] [address] Kody Turpin MD [address] [place] [address] Other ascites Social History Tobacco Use Types [...] ascites documented in this encounter Care Teams Bird Cage Assembler Relationship Specialty Start Date End Date Fernie Barfield DO [address] [place] [phone] PCP - General 04/14/17 documented as of this encounter
--- OUTSIDE RECORDS SUMMARY | 2024-05-03 11:16 | XMS_ITS | Encounter Summary ---
Author Organization [facility] Address [address] [facility] [place] [address] Care Team Providers Care Peer Educator Name Role Phone Fernie Barfield DO Primary Care Provider Encounter Details Date Type Department Care Team (Latest Contact Info) Description 04/26/2020 Travel Social History Tobacco Use Types Packs/Day [...] COVID-19? No / Unsure 04/26/2020 9:39 AM BACK HAND documented as of this encounter Functional Status [...] on filedocumented in this encounter Care Teams Peer Educator Relationship Specialty Start Date End Date Fernie Barfield DO [address] [place] [phone] PCP - General 04/14/17 documented as of this encounter
--- OUTSIDE RECORDS SUMMARY | 2024-05-03 11:16 | XMS_ITS | Patient Health Summary ---
Author Organization [facility] Address [address] [place] [address] Care Team Providers Care Red Leader Name Role Phone Fernie Barfield DO Primary Care Provider [phone] Note from [facility],non-owned Affiliates and Associated Physician Practices is amultiple site organization consisting of ambulatory clinics and hospital sitesin [place], [place], [place] and [place]. This disclosure is being madepursuant to the Care Everywhere program and may not contain all information available regarding this patient. Last updated 18.[facility] Allergies * Meperidine(Other) -Low Criticality * Oxycodone(Psychiatric) -Medium Criticality Medications * Be aware that medications may not be up to date on this document. Alwaysverify current medications with the patient. * folic acid (FOLVITE) 1 MG tablet(Started 07/02/2017) Take 1 mg by mouth DAILY. 5 refills left * Vitamins/Minerals TABS(Started 06/03/2017) Take 1 tablet by mouth DAILY. * Probiotic Product (ACIDOPHILUS/GOAT MILK) CAPS(Started 06/03/2017) Take 1 tablet by mouth DAILY. * ALPRAZolam (XANAX) 0.5 MG tablet(Started 12/03/2017) Take 0.5 mg by mouth once daily as needed * fluticasone propionate (FLONASE) 50 MCG/ACT nasal spray(Started 12/03/2017) as needed * vitamin D, cholecalciferol, 2000 UNITS tablet(Started 01/07/2018) Take 1 tablet by mouth once daily 1 refill remaining * Digestive Enzymes CAPS Take 1 capsule by mouth 2 times daily * B Complex Vitamins (B COMPLEX PO) 1/2 tablet twice daily * MILK THISTLE PO Take by mouth once daily * Biotin 5 MG Take by mouth once daily * Ascorbic Acid (VITAMIN C PO) Take by mouth once daily * Other Maritime pine- antioxidant- twice daily * EVENING PRIMROSE OIL PO Take by mouth once daily * amLODIPine (NORVASC) 5 MG tablet(Started 02/13/2020) once daily * Zinc 25 MG Take by mouth once daily Active Problems Problem Noted Date Diagnosed Date Acute renal failure syndrome 02/21/2021 Anxiety disorder 12/03/2017 Acute encephalopathy 10/19/2017 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 10/19/2017 SALGADO (nonalcoholic steatohepatitis) 08/24/2017 Other ascites 06/10/2017 Fatty (change of) liver, [...] ST Respiratory Rate 18 04/26/2020 10:30 AM BAG CHECKER Oxygen Saturation 100% 04/26/2020 10:30 AM BAG CHECKER Inhaled Oxygen Concentration 24% 10/27/2017 7 :00 AM CDT Weight 58.5 kg (129 lb) 02/21/2021 11:10 AM CDT Height 154.9 cm (5' 1 ) 02/21/2021 11:10 AM CDT Body Mass Index 24.37 02/21/2021 11:10 AM CDT Medical Devices Implanted Type Area [facility] Manager Device Identifier Shelf Expiration Date Model / Serial / Lot Cath Dlys Dura-Flw 15.5fr X 24cm Implanted:Qty: 1 on 10/28/2017 by Nathalie Arevalo MD at [facility] Right: Chest [employer] 02/14/2020 [id number] / / [id number] Description:RIJ Procedures * PT INR (EXTERNAL RESULT ENTRY)(Performed 02/06/2021) * COMP MET PANEL (EXTERNAL RESULT ENTRY)(Performed 02/06/2021) * CBC W DIFF (EXTERNAL RESULT ENTRY)(Performed 02/06/2021) * CT ABDOMEN MULTI PHASE W CONT(Performed 04/26/2020) Performed for Fatty (change of) liver, not elsewhere classified, 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) * CREATININE - POCT INTERFACED(Performed 04/26/2020) * PT INR (EXTERNAL RESULT ENTRY)(Performed 04/25/2020) * CBC W DIFF (EXTERNAL RESULT ENTRY)(Performed 04/25/2020) * CARDIAC EKG ORDER(Performed 01/03/2020) * US ABDOMEN LIMITED(Performed 07/07/2019) Performed for Fatty (change of) liver, not elsewhere classified * PT INR (EXTERNAL RESULT ENTRY)(Performed 06/23/2019) * COMP MET PANEL (EXTERNAL RESULT ENTRY)(Performed 06/23/2019) * CBC W DIFF (EXTERNAL RESULT ENTRY)(Performed 06/23/2019) * PT INR (EXTERNAL RESULT ENTRY)(Performed 01/09/2019) * COMP MET PANEL (EXTERNAL RESULT ENTRY)(Performed 01/09/2019) * CBC W DIFF (EXTERNAL RESULT ENTRY)(Performed 01/09/2019) * PT INR (EXTERNAL RESULT ENTRY)(Performed 04/18/2018) * CHEM PROFILE (EXTERNAL RESULT ENTRY)(Performed 04/18/2018) * CBC W DIFF (EXTERNAL RESULT ENTRY)(Performed 04/18/2018) * PT INR (EXTERNAL RESULT ENTRY)(Performed 01/12/2018) * COMP MET PANEL (EXTERNAL RESULT ENTRY)(Performed 01/12/2018) * CBC W DIFF (EXTERNAL RESULT ENTRY)(Performed 01/12/2018) * PT INR (EXTERNAL RESULT ENTRY)(Performed 12/28/2017) * COMP MET PANEL (EXTERNAL RESULT ENTRY)(Performed 12/28/2017) * CBC W DIFF (EXTERNAL RESULT ENTRY)(Performed 12/28/2017) * PATHOLOGY TISSUE(Performed 12/16/2017) Performed for 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) * PT INR (EXTERNAL RESULT ENTRY)(Performed 12/13/2017) * COMP MET PANEL (EXTERNAL RESULT ENTRY)(Performed 12/13/2017) * CBC W DIFF (EXTERNAL RESULT ENTRY)(Performed 12/13/2017) * PHOSPHORUS (EXTERNAL RESULT ENTRY)(Performed 12/13/2017) * PT INR (EXTERNAL RESULT ENTRY)(Performed 12/13/2017) * COMP MET PANEL (EXTERNAL RESULT ENTRY)(Performed 12/13/2017) * CBC W DIFF (EXTERNAL RESULT ENTRY)(Performed 12/13/2017) * PHOSPHORUS (EXTERNAL RESULT ENTRY)(Performed 12/06/2017) * COMP MET PANEL (EXTERNAL RESULT ENTRY)(Performed 12/06/2017) * COMP MET PANEL (EXTERNAL RESULT ENTRY)(Performed 12/04/2017) * CBC W DIFF (EXTERNAL RESULT ENTRY)(Performed 12/04/2017) * PT INR (EXTERNAL RESULT ENTRY)(Performed 11/24/2017) * CBC W DIFF (EXTERNAL RESULT ENTRY)(Performed 11/24/2017) * CARDIAC PROCEDURE ORDER(Performed 11/08/2017) * CARDIAC EKG ORDER(Performed 11/08/2017) * GLUCOSE - POINT OF CARE(Performed 11/03/2017) * GLUCOSE - POINT OF CARE(Performed 11/03/2017) * GLUCOSE - POINT OF CARE(Performed 11/03/2017) * RBC MORPHOLOGY(Performed 11/03/2017) * CBC W AUTO DIFFERENTIAL(Performed 11/03/2017) * PT-INR SLH(Performed 11/03/2017) * COMPREHENSIVE METABOLIC PANEL(Performed 11/03/2017) * HEMODIALYSIS INPATIENT(Performed 11/03/2017) * GLUCOSE - POINT OF CARE(Performed 11/02/2017) * GLUCOSE - POINT OF CARE(Performed 11/02/2017) * GLUCOSE - POINT OF CARE(Performed 11/02/2017) * GLUCOSE - POINT OF CARE(Performed 11/02/2017) * RBC MORPHOLOGY(Performed 11/02/2017) * PHOSPHORUS BLOOD(Performed 11/02/2017) * CBC W AUTO DIFFERENTIAL(Performed 11/02/2017) * PT-INR SLH(Performed 11/02/2017) * COMPREHENSIVE METABOLIC PANEL(Performed 11/02/2017) * GLUCOSE - POINT OF CARE(Performed 11/01/2017) * GLUCOSE - POINT OF CARE(Performed 11/01/2017) * GLUCOSE - POINT OF CARE(Performed 11/01/2017) * DIFFERENTIAL MANUAL(Performed 11/01/2017) * CBC W AUTO DIFFERENTIAL(Performed 11/01/2017) * PT-INR SLH(Performed 11/01/2017) * COMPREHENSIVE METABOLIC PANEL(Performed 11/01/2017) * GLUCOSE - POINT OF CARE(Performed 10/31/2017) * HEMODIALYSIS INPATIENT(Performed 10/31/2017) * GLUCOSE - POINT OF CARE(Performed 10/31/2017) * GLUCOSE - POINT OF CARE(Performed 10/31/2017) * DIFFERENTIAL MANUAL(Performed 10/31/2017) * CORTISOL BLOOD AM(Performed 10/31/2017) * TISSUE TRANSGLUTAMINASE AB IGA(Performed 10/31/2017) * CBC W AUTO DIFFERENTIAL(Performed 10/31/2017) * PT-INR SLH(Performed 10/31/2017) * CORTISOL BLOOD AM(Performed 10/31/2017) * COMPREHENSIVE METABOLIC PANEL(Performed 10/31/2017) * GLUCOSE - POINT OF CARE(Performed 10/31/2017) * GLUCOSE - POINT OF CARE(Performed 10/30/2017) * GLUCOSE - POINT OF CARE(Performed 10/30/2017) * PANCREATIC ELASTASE FECES(Performed 10/30/2017) * GLUCOSE - POINT OF CARE(Performed 10/30/2017) * GLUCOSE - POINT OF CARE(Performed 10/30/2017) * GLUCOSE - POINT OF CARE(Performed 10/30/2017) * DIFFERENTIAL MANUAL(Performed 10/30/2017) * CBC W AUTO DIFFERENTIAL(Performed 10/30/2017) * PT-INR SLH(Performed 10/30/2017) * COMPREHENSIVE METABOLIC PANEL(Performed 10/30/2017) * GLUCOSE - POINT OF CARE(Performed 10/29/2017) * FL SWALLOWING FUNCTION STUDY(Performed 10/29/2017) Performed for MAINOR (acute kidney injury) (HCC) * GLUCOSE - POINT OF CARE(Performed 10/29/2017) * GLUCOSE - POINT OF CARE(Performed 10/29/2017) * RBC MORPHOLOGY(Performed 10/29/2017) * CBC W AUTO DIFFERENTIAL(Performed 10/29/2017) * COMPREHENSIVE METABOLIC PANEL(Performed 10/29/2017) * PTT SLH(Performed 10/29/2017) * PT-INR SLH(Performed 10/29/2017) * HEPATIC FUNCTION PANEL(Performed 10/29/2017) * CBC W/O DIFFERENTIAL(Performed 10/29/2017) * GLUCOSE - POINT OF CARE(Performed 10/28/2017) * GLUCOSE - POINT OF CARE(Performed 10/28/2017) * HEMODIALYSIS INPATIENT(Performed 10/28/2017) * FL SWALLOWING FUNCTION STUDY(Performed 10/28/2017) Performed for Septic shock (HCC) * IR CENTRAL LINE INSERT TUNNEL(Performed 10/28/2017) Performed for MAINOR (acute kidney injury) (HCC) * GLUCOSE - POINT OF CARE(Performed 10/28/2017) * TYPE + SCREEN PANEL(Performed 10/28/2017) * HEMOGLOBIN(Performed 10/28/2017) * GLUCOSE - POINT OF CARE(Performed 10/28/2017) * PHOSPHORUS BLOOD(Performed 10/28/2017) * RBC MORPHOLOGY(Performed 10/28/2017) * VITAMIN D 1,25 DIHYDROXY(Performed 10/28/2017) * MITOCHONDRIAL ANTIBODY SCREEN(Performed 10/28/2017) * CERULOPLASMIN(Performed 10/28/2017) * SMOOTH MUSCLE ANTIBODY(Performed 10/28/2017) * CBC W AUTO DIFFERENTIAL(Performed 10/28/2017) * PTT SLH(Performed 10/28/2017) * PT-INR SLH(Performed 10/28/2017) * COMPREHENSIVE METABOLIC PANEL(Performed 10/28/2017) * GLUCOSE - POINT OF CARE(Performed 10/28/2017) * GLUCOSE - POINT OF CARE(Performed 10/27/2017) * GLUCOSE - POINT OF CARE(Performed 10/27/2017) * ECHO LIMITED OR FOLLOWUP(Performed 10/27/2017) * GLUCOSE - POINT OF CARE(Performed 10/27/2017) * XR CHEST 1VW PORTABLE(Performed 10/27/2017) Performed for Pleural effusion * GLUCOSE - POINT OF CARE(Performed 10/27/2017) * TROPONIN I(Performed 10/27/2017) * PHOSPHORUS BLOOD(Performed 10/27/2017) * DIFFERENTIAL MANUAL(Performed 10/27/2017) * B-TYPE NATRIURETIC PEPTIDE(Performed 10/27/2017) * CBC W AUTO DIFFERENTIAL(Performed 10/27/2017) * PTT SLH(Performed 10/27/2017) * PT-INR SLH(Performed 10/27/2017) * COMPREHENSIVE METABOLIC PANEL(Performed 10/27/2017) * MAGNESIUM BLOOD(Performed 10/27/2017) * GLUCOSE - POINT OF CARE(Performed 2017) * RENAL FUNCTION PANEL(Performed 2017) * GLUCOSE - POINT OF CARE(Performed 2017) * GLUCOSE - POINT OF CARE(Performed 2017) * GLUCOSE - POINT OF CARE(Performed 2017) * RENAL FUNCTION PANEL(Performed 2017) * GLUCOSE - POINT OF CARE(Performed 2017) * DIFFERENTIAL MANUAL(Performed 2017) * RENAL FUNCTION PANEL(Performed 2017) * CBC W AUTO DIFFERENTIAL(Performed 2017) * PTT SLH(Performed 2017) * PT-INR SLH(Performed 2017) * COMPREHENSIVE METABOLIC PANEL(Performed 2017) * MAGNESIUM BLOOD(Performed 2017) * GLUCOSE - POINT OF CARE(Performed 2017) * GLUCOSE - POINT OF CARE(Performed 2017) * RENAL FUNCTION PANEL(Performed 10/25/2017) * XR ABDOMEN KUB(Performed 10/25/2017) Performed for Abdominal pain, unspecified abdominal location * GLUCOSE - POINT OF CARE(Performed 10/25/2017) * GLUCOSE - POINT OF CARE(Performed 10/25/2017) * COMPLEMENT C4(Performed 10/25/2017) * COMPLEMENT C3(Performed 10/25/2017) * RENAL FUNCTION PANEL(Performed 10/25/2017) * GLUCOSE - POINT OF CARE(Performed 10/25/2017) * BILIRUBIN DIRECT(Performed 10/25/2017) * LDH BLOOD(Performed 10/25/2017) * GLUCOSE - POINT OF CARE(Performed 10/25/2017) * GLUCOSE - POINT OF CARE(Performed 10/25/2017) * DIFFERENTIAL MANUAL(Performed 10/25/2017) * RENAL FUNCTION PANEL(Performed 10/25/2017) * CBC W AUTO DIFFERENTIAL(Performed 10/25/2017) * PTT SLH(Performed 10/25/2017) * PT-INR SLH(Performed 10/25/2017) * COMPREHENSIVE METABOLIC PANEL(Performed 10/25/2017) * MAGNESIUM BLOOD(Performed 10/25/2017) * GLUCOSE - POINT OF CARE(Performed 10/25/2017) * RENAL FUNCTION PANEL(Performed 10/25/2017) * GLUCOSE - POINT OF CARE(Performed 10/24/2017) * GLUCOSE - POINT OF CARE(Performed 10/24/2017) * RENAL FUNCTION PANEL(Performed 10/24/2017) * GLUCOSE - POINT OF CARE(Performed 10/24/2017) * GLUCOSE - POINT OF CARE(Performed 10/24/2017) * CBC W AUTO DIFFERENTIAL(Performed 10/24/2017) * PTT SLH(Performed 10/24/2017) * PT-INR SLH(Performed 10/24/2017) * GLUCOSE - POINT OF CARE(Performed 10/24/2017) * RENAL FUNCTION PANEL(Performed 10/24/2017) * COMPREHENSIVE METABOLIC PANEL(Performed 10/24/2017) * MAGNESIUM BLOOD(Performed 10/24/2017) * GLUCOSE - POINT OF CARE(Performed 10/23/2017) * RENAL FUNCTION PANEL(Performed 10/23/2017) * GLUCOSE - POINT OF CARE(Performed 10/23/2017) * GLUCOSE - POINT OF CARE(Performed 10/23/2017) * RENAL FUNCTION PANEL(Performed 10/23/2017) * GLUCOSE - POINT OF CARE(Performed 10/23/2017) * GLUCOSE - POINT OF CARE(Performed 10/23/2017) * DIFFERENTIAL MANUAL(Performed 10/23/2017) * CBC W AUTO DIFFERENTIAL(Performed 10/23/2017) * GLUCOSE - POINT OF CARE(Performed 10/23/2017) * RENAL FUNCTION PANEL(Performed 10/23/2017) * PTT SLH(Performed 10/23/2017) * PT-INR SLH(Performed 10/23/2017) * COMPREHENSIVE METABOLIC PANEL(Performed 10/23/2017) * MAGNESIUM BLOOD(Performed 10/23/2017) * GLUCOSE - POINT OF CARE(Performed 10/22/2017) * GLUCOSE - POINT OF CARE(Performed 10/22/2017) * RENAL FUNCTION PANEL(Performed 10/22/2017) * GLUCOSE - POINT OF CARE(Performed 10/22/2017) * GLUCOSE - POINT OF CARE(Performed 10/22/2017) * RENAL FUNCTION PANEL(Performed 10/22/2017) * CBC W/O DIFFERENTIAL(Performed 10/22/2017) * BLOOD GASES ARTERIAL(Performed 10/22/2017) * GLUCOSE - POINT OF CARE(Performed 10/22/2017) * XR CHEST 1VW PORTABLE(Performed 10/22/2017) Performed for Septic shock (HCC) * TYPE + SCREEN PANEL(Performed 10/22/2017) * CBC W AUTO DIFFERENTIAL(Performed 10/22/2017) * PTT SLH(Performed 10/22/2017) * PT-INR SLH(Performed 10/22/2017) * CALCIUM IONIZED WHOLE BLOOD(Performed 10/22/2017) * RENAL FUNCTION PANEL(Performed 10/22/2017) * COMPREHENSIVE METABOLIC PANEL(Performed 10/22/2017) * MAGNESIUM BLOOD(Performed 10/22/2017) * GLUCOSE - POINT OF CARE(Performed 10/22/2017) * CALCIUM IONIZED WHOLE BLOOD(Performed 10/21/2017) * RENAL FUNCTION PANEL(Performed 10/21/2017) * GLUCOSE - POINT OF CARE(Performed 10/21/2017) * GLUCOSE - POINT OF CARE(Performed 10/21/2017) * PT-INR SLH(Performed 10/21/2017) * CBC W/O DIFFERENTIAL(Performed 10/21/2017) * CALCIUM IONIZED WHOLE BLOOD(Performed 10/21/2017) * RENAL FUNCTION PANEL(Performed 10/21/2017) * GLUCOSE - POINT OF CARE(Performed 10/21/2017) * PHOSPHORUS BLOOD(Performed 10/21/2017) * LDH BLOOD(Performed 10/21/2017) * FIBRINOGEN ACTIVITY(Performed 10/21/2017) * PTT SLH(Performed 10/21/2017) * PT-INR SLH(Performed 10/21/2017) * CBC W/O DIFFERENTIAL(Performed 10/21/2017) * CALCIUM IONIZED WHOLE BLOOD(Performed 10/21/2017) * COMPREHENSIVE METABOLIC PANEL(Performed 10/21/2017) * MAGNESIUM BLOOD(Performed 10/21/2017) * GLUCOSE - POINT OF CARE(Performed 10/21/2017) * PT-INR SLH(Performed 10/20/2017) * CBC W/O DIFFERENTIAL(Performed 10/20/2017) * CALCIUM IONIZED WHOLE BLOOD(Performed 10/20/2017) * RENAL FUNCTION PANEL(Performed 10/20/2017) * GLUCOSE - POINT OF CARE(Performed 10/20/2017) * PHOSPHORUS BLOOD(Performed 10/20/2017) * GLUCOSE - POINT OF CARE(Performed 10/20/2017) * PT-INR SLH(Performed 10/20/2017) * CBC W/O DIFFERENTIAL(Performed 10/20/2017) * CALCIUM IONIZED WHOLE BLOOD(Performed 10/20/2017) * RENAL FUNCTION PANEL(Performed 10/20/2017) * GLUCOSE - POINT OF CARE(Performed 10/20/2017) * GLUCOSE - POINT OF CARE(Performed 10/20/2017) * PHOSPHORUS BLOOD(Performed 10/20/2017) * PTT SLH(Performed 10/20/2017) * PT-INR SLH(Performed 10/20/2017) * CBC W AUTO DIFFERENTIAL(Performed 10/20/2017) * CALCIUM IONIZED WHOLE BLOOD(Performed 10/20/2017) * COMPREHENSIVE METABOLIC PANEL(Performed 10/20/2017) * MAGNESIUM BLOOD(Performed 10/20/2017) * GLUCOSE - POINT OF CARE(Performed 10/20/2017) * GLUCOSE - POINT OF CARE(Performed 10/19/2017) * PTT SLH(Performed 10/19/2017) * PT-INR SLH(Performed 10/19/2017) * FIBRINOGEN ACTIVITY(Performed 10/19/2017) * CBC W/O DIFFERENTIAL(Performed 10/19/2017) * CALCIUM IONIZED WHOLE BLOOD(Performed 10/19/2017) * RENAL FUNCTION PANEL(Performed 10/19/2017) * XR CHEST 1VW PORTABLE(Performed 10/19/2017) Performed for Pleural effusion * CULTURE ANAEROBE(Performed 10/19/2017) * GLUCOSE - POINT OF CARE(Performed 10/19/2017) * CULTURE FLUID+GRAM STAIN(Performed 10/19/2017) * DIFFERENTIAL MANUAL FLUID(Performed 10/19/2017) * CELL COUNT W DIFFERENTIAL FLUID(Performed 10/19/2017) * BLOOD GASES ARTERIAL(Performed 10/19/2017) * CBC W/O DIFFERENTIAL(Performed 10/19/2017) * CALCIUM IONIZED WHOLE BLOOD(Performed 10/19/2017) * RENAL FUNCTION PANEL(Performed 10/19/2017) * GLUCOSE - POINT OF CARE(Performed 10/19/2017) * GLUCOSE - POINT OF CARE(Performed 10/19/2017) * TRANSFUSE RED BLOOD CELL LEUKOREDUCED UNIT(S)(Performed 10/19/2017) * FIBRINOGEN ACTIVITY(Performed 10/19/2017) * CT ABDOMEN PELVIS WO CONTRAST(Performed 10/19/2017) Performed for Abdominal pain, unspecified abdominal location * XR CHEST 1VW PORTABLE(Performed 10/19/2017) Performed for Pleural effusion, Pneumonia due to infectious organism, unspecified laterality, unspecified part of lung * PREPARE FFP UNIT(S)(Performed 10/19/2017) * PREPARE CRYOPRECIPITATE UNIT(S)(Performed 10/19/2017) * PREPARE RBC LEUKOREDUCED UNIT(Performed 10/19/2017) * PATHOLOGY PERIPHERAL SMEAR REVIEW(Performed 10/19/2017) Performed for Septic shock (HCC) * SHIELA DIRECT(Performed 10/19/2017) * TYPE + SCREEN PANEL(Performed 10/19/2017) * RBC MORPHOLOGY(Performed 10/19/2017) * RETIC COUNT(Performed 10/19/2017) * CBC W/O DIFFERENTIAL(Performed 10/19/2017) * BLOOD GASES ARTERIAL(Performed 10/19/2017) * GLUCOSE - POINT OF CARE(Performed 10/19/2017) * TRANSFERRIN(Performed 10/19/2017) * FERRITIN(Performed 10/19/2017) * IRON BLOOD(Performed 10/19/2017) * HAPTOGLOBIN(Performed 10/19/2017) * MARILEE BLOOD SCREEN W/REFLEX TITER(Performed 10/19/2017) Performed for Septic shock (HCC), Pleural effusion, Abdominal pain, unspecified abdominal location,Pneumonia due to infectious organism, unspecified laterality, unspecified part of lung * VITAMIN B12(Performed 10/19/2017) * FOLATE(Performed 10/19/2017) * CALCIUM IONIZED WHOLE BLOOD(Performed 10/19/2017) * MITOCHONDRIAL ANTIBODY SCREEN(Performed 10/19/2017) * PTT SLH(Performed 10/19/2017) * PT-INR SLH(Performed 10/19/2017) * CBC W/O DIFFERENTIAL(Performed 10/19/2017) * COMPREHENSIVE METABOLIC PANEL(Performed 10/19/2017) * MAGNESIUM BLOOD(Performed 10/19/2017) * GLUCOSE - POINT OF CARE(Performed 10/18/2017) * GLUCOSE - POINT OF CARE(Performed 10/18/2017) * CALCIUM IONIZED WHOLE BLOOD(Performed 10/18/2017) * RENAL FUNCTION PANEL(Performed 10/18/2017) * GLUCOSE - POINT OF CARE(Performed 10/18/2017) * CRYOGLOBULIN QUALITATIVE(Performed 10/18/2017) * NEUTROPHIL CYTOPLASMIC ANTIBODY(Performed 10/18/2017) * KAPPA/LAMBDA LITE CHAIN FREE PANEL(Performed 10/18/2017) * COMPLEMENT TOTAL(Performed 10/18/2017) * IMMUNOFIXATION BLOOD(Performed 10/18/2017) * MPO/TN 3 AUTOANTIBODIES PANEL(Performed 10/18/2017) * ANTI-NEUTROPHIL CYTOPLASMIC ANTIBODY IGG(Performed 10/18/2017) * PROTEIN ELECTROPHORESIS BLOOD(Performed 10/18/2017) * ASO TITER(Performed 10/18/2017) * HIV-1 HIV-2 ANTIGEN/ANTIBODY(Performed 10/18/2017) * HEPATITIS SCREEN ACUTE(Performed 10/18/2017) * SS-B (SJOGREN'S) ANTIBODY(Performed 10/18/2017) * SS-A (SJOGREN'S) ANTIBODY(Performed 10/18/2017) * HAHN (SM) ANTIBODY KOLTON(Performed 10/18/2017) * DNA (DS) ANTIBODY RFLEX IFA(Performed 10/18/2017) * COMPLEMENT C4(Performed 10/18/2017) * COMPLEMENT C3(Performed 10/18/2017) * GLOMERULAR BASE MEMBRANE ANTIBODY IGG(Performed 10/18/2017) * XR CHEST 1VW PORTABLE(Performed 10/18/2017) Performed for Septic shock (HCC) * HEPARIN PLATELET INDUCED ANTIBODY(Performed 10/18/2017) * HYDROXYBUTYRATE BETA(Performed 10/18/2017) * LACTIC ACID BLOOD(Performed 10/18/2017) * BASIC METABOLIC PANEL (CALCIUM TOTAL)(Performed 10/18/2017) * US ABDOMEN LIMITED(Performed 10/18/2017) Performed for Septic shock (HCC) * GLUCOSE - POINT OF CARE(Performed 10/18/2017) * XR CHEST 1VW PORTABLE(Performed 10/18/2017) Performed for Septic shock (HCC) * PTT SLH(Performed 10/18/2017) * PT-INR SLH(Performed 10/18/2017) * PHOSPHORUS BLOOD(Performed 10/18/2017) * CBC W/O DIFFERENTIAL(Performed 10/18/2017) * COMPREHENSIVE METABOLIC PANEL(Performed 10/18/2017) * MAGNESIUM BLOOD(Performed 10/18/2017) * GLUCOSE - POINT OF CARE(Performed 10/18/2017) * GLUCOSE - POINT OF CARE(Performed 10/17/2017) * BLOOD GASES ARTERIAL(Performed 10/17/2017) * BASIC METABOLIC PANEL (CALCIUM TOTAL)(Performed 10/17/2017) * GLUCOSE - POINT OF CARE(Performed 10/17/2017) * PHOSPHORUS BLOOD(Performed 10/17/2017) * GGT(Performed 10/17/2017) * VANCOMYCIN LEVEL RANDOM(Performed 10/17/2017) * BLOOD GASES ARTERIAL(Performed 10/17/2017) * BASIC METABOLIC PANEL (CALCIUM TOTAL)(Performed 10/17/2017) * GLUCOSE - POINT OF CARE(Performed 10/17/2017) * CBC W/O DIFFERENTIAL(Performed 10/17/2017) * COMPREHENSIVE METABOLIC PANEL(Performed 10/17/2017) * MAGNESIUM BLOOD(Performed 10/17/2017) * GLUCOSE - POINT OF CARE(Performed 10/17/2017) * GLUCOSE - POINT OF CARE(Performed 10/16/2017) * BASIC METABOLIC PANEL (CALCIUM TOTAL)(Performed 10/16/2017) * GLUCOSE - POINT OF CARE(Performed 10/16/2017) * EKG 12-LEAD(Performed 10/16/2017) Performed for Septic shock (HCC) * GLUCOSE - POINT OF CARE(Performed 10/16/2017) * BASIC METABOLIC PANEL (CALCIUM TOTAL)(Performed 10/16/2017) * EKG 12-LEAD(Performed 10/16/2017) Performed for Septic shock (HCC) * GLUCOSE - POINT OF CARE(Performed 10/16/2017) * GLUCOSE - POINT OF CARE(Performed 10/16/2017) * CULTURE SPUTUM+GRAM STAIN(Performed 10/16/2017) * CBC W/O DIFFERENTIAL(Performed 10/16/2017) * COMPREHENSIVE METABOLIC PANEL(Performed 10/16/2017) * MAGNESIUM BLOOD(Performed 10/16/2017) * LACTIC ACID BLOOD(Performed 10/16/2017) * GLUCOSE - POINT OF CARE(Performed 10/16/2017) * GLUCOSE - POINT OF CARE(Performed 10/16/2017) * GLUCOSE - POINT OF CARE(Performed 10/16/2017) * XR CHEST 1VW(Performed 10/15/2017) Performed for Septic shock (HCC) * XR ABDOMEN KUB PORTABLE(Performed 10/15/2017) Performed for Abdominal pain, unspecified abdominal location * GLUCOSE - POINT OF CARE(Performed 10/15/2017) * ECHO COMPLETE(Performed 10/15/2017) Performed for Pleural effusion * GLUCOSE - POINT OF CARE(Performed 10/15/2017) * VANCOMYCIN LEVEL RANDOM(Performed 10/15/2017) * SVO2 FOR RECALIBRATION(Performed 10/15/2017) * GLUCOSE - POINT OF CARE(Performed 10/15/2017) * CT ANGIO CHEST PULM EMBOLISM(Performed 10/15/2017) Performed for Septic shock (HCC) * CULTURE URINE(Performed 10/15/2017) * LDH BLOOD(Performed 10/15/2017) * EKG 12-LEAD(Performed 10/15/2017) Performed for Septic shock (HCC) * GLUCOSE - POINT OF CARE(Performed 10/15/2017) * OSMOLALITY URINE(Performed 10/15/2017) * UREA NITROGEN URINE RANDOM(Performed 10/15/2017) * CREATININE URINE RANDOM(Performed 10/15/2017) * SODIUM URINE RANDOM(Performed 10/15/2017) * URINALYSIS REFLEX TO MICROSCOPIC NO CULTURE(Performed 10/15/2017) * HEMOGLOBIN A1C(Performed 10/15/2017) * VANCOMYCIN LEVEL RANDOM(Performed 10/15/2017) * CBC W AUTO DIFFERENTIAL(Performed 10/15/2017) * COMPREHENSIVE METABOLIC PANEL(Performed 10/15/2017) * LACTIC ACID BLOOD(Performed 10/15/2017) * PT-INR [facility](Performed 10/15/2017) * GLUCOSE - POINT OF CARE(Performed 10/15/2017) * TRIGLYCERIDES BODY FLUID(Performed 10/15/2017) * AMYLASE BODY FLUID(Performed 10/15/2017) * PROTEIN BODY FLUID(Performed 10/15/2017) * CYTOLOGY NON-MILK RECEIVER PANEL ([facility])(Performed 10/15/2017) Performed for Pleural effusion * CULTURE ANAEROBE(Performed 10/15/2017) * PH BODY FLUID ([facility] ONLY)(Performed 10/15/2017) * XR CHEST 1VW PORTABLE(Performed 10/15/2017) Performed for Pleural effusion * DIFFERENTIAL MANUAL FLUID(Performed 10/15/2017) * GLUCOSE BODY FLUID(Performed 10/15/2017) * LDH BODY FLUID(Performed 10/15/2017) * CELL COUNT W DIFFERENTIAL FLUID(Performed 10/15/2017) * ALBUMIN BODY FLUID(Performed 10/15/2017) * CULTURE FLUID+GRAM STAIN(Performed 10/15/2017) * ALBUMIN BODY FLUID(Performed 10/15/2017) * DIFFERENTIAL MANUAL FLUID(Performed 10/15/2017) * CELL COUNT W DIFFERENTIAL FLUID(Performed 10/15/2017) * CULTURE FLUID+GRAM STAIN(Performed 10/15/2017) * CULTURE SPUTUM+GRAM STAIN(Performed 10/14/2017) * CULTURE BLOOD(Performed 10/14/2017) * BLOOD GASES ART COMPLETE [facility] OR(Performed 10/14/2017) * VANCOMYCIN LEVEL RANDOM(Performed 10/14/2017) * CBC W/O DIFFERENTIAL(Performed 10/14/2017) * BASIC METABOLIC PANEL (CALCIUM TOTAL)(Performed 10/14/2017) * PHOSPHORUS BLOOD(Performed 10/14/2017) * PT-INR [facility](Performed 10/14/2017) * LACTIC ACID BLOOD(Performed 10/14/2017) * MAGNESIUM BLOOD(Performed 10/14/2017) * CULTURE BLOOD(Performed 10/14/2017) * XR CHEST 1VW PORTABLE(Performed 10/14/2017) Performed for Septic shock (HCC) * PT EVAL AND TREAT(Performed 10/14/2017) * OT EVAL AND TREAT(Performed 10/14/2017) * CHEM PROFILE (EXTERNAL RESULT ENTRY)(Performed 09/03/2017) * CHEM PROFILE (EXTERNAL RESULT ENTRY)(Performed 09/03/2017) * PT INR (EXTERNAL RESULT ENTRY)(Performed 09/03/2017) * CBC W DIFF (EXTERNAL RESULT ENTRY)(Performed 09/03/2017) * COMPREHENSIVE METABOLIC PANEL(Performed 08/08/2017) * PHOSPHORUS BLOOD(Performed 08/08/2017) * MAGNESIUM BLOOD(Performed 08/08/2017) * PT-INR [facility](Performed 08/08/2017) * CBC W AUTO DIFFERENTIAL(Performed 08/08/2017) * CBC W AUTO DIFFERENTIAL(Performed 08/08/2017) * GLUCOSE ACCUCHECK(Performed 08/07/2017) * CBC W AUTO DIFFERENTIAL(Performed 08/07/2017) * CBC W AUTO DIFFERENTIAL(Performed 08/07/2017) * OSMOLALITY URINE(Performed 08/07/2017) * SODIUM URINE RANDOM(Performed 08/07/2017) * URINALYSIS W/MICROSCOPIC NO CULTURE(Performed 08/07/2017) * CORTISOL BLOOD AM(Performed 08/07/2017) * TROPONIN I(Performed 08/07/2017) * MAGNESIUM BLOOD(Performed 08/07/2017) * BASIC METABOLIC PANEL (CALCIUM TOTAL)(Performed 08/07/2017) * BILIRUBIN DIRECT(Performed 08/07/2017) * PT-INR [facility](Performed 08/07/2017) * TSH(Performed 08/07/2017) * TROPONIN I(Performed 08/07/2017) * COMPREHENSIVE METABOLIC PANEL(Performed 08/07/2017) * PHOSPHORUS BLOOD(Performed 08/07/2017) * MAGNESIUM BLOOD(Performed 08/07/2017) * CBC W AUTO DIFFERENTIAL(Performed 08/07/2017) * CBC W AUTO DIFFERENTIAL(Performed 08/07/2017) * XR CHEST 1VW PORTABLE(Performed 08/07/2017) * EKG 12-LEAD(Performed 08/07/2017) * CBC W AUTO DIFFERENTIAL(Performed 08/06/2017) * COMPREHENSIVE METABOLIC PANEL(Performed 08/06/2017) * PT-INR [facility](Performed 08/06/2017) * CBC W AUTO DIFFERENTIAL(Performed 08/06/2017) * CBC W AUTO DIFFERENTIAL(Performed 07/09/2017) * COMPREHENSIVE METABOLIC PANEL(Performed 07/09/2017) * MAGNESIUM BLOOD(Performed 07/09/2017) * PT-INR [facility](Performed 07/09/2017) * CBC W AUTO DIFFERENTIAL(Performed 07/09/2017) * CT ABDOMEN MULTI PHASE W CONT(Performed 07/09/2017) * CREATININE BLOOD - POCT (IP) [facility](Performed 07/09/2017) Results * CBC W DIFF (EXTERNAL RESULT ENTRY) (02/06/2021) Only the most recent of12 resultswithin the time period is included. WBC (EXTERNAL RESULT) 8.4 10^3/ul OTHER LAB Hemoglobin (EXTERNAL RESULT) 13.8 g/dl OTHER LAB Hematocrit (EXTERNAL RESULT) 40.4 % OTHER LAB Platelets (EXTERNAL RESULT) 286 10^3/ul OTHER LAB Neutrophil Absolute (EXTERNAL RESULT) 6.29 10^3/ul OTHER LAB Blood BLOOD SPECIMEN / Unknown 02/06/2021 Historical Provider LAB - HEMATOLOGY ORDERABLES OTHER LAB * PT INR (EXTERNAL RESULT ENTRY) (02/06/2021) Only the most recent of11 resultswithin the time period is included. PT (EXTERNAL) 13.5 sec OTHER LAB INR (EXTERNAL RESULT) 1.08 OTHER LAB Blood BLOOD SPECIMEN / Unknown 02/06/2021 Historical Provider LAB - CHEMISTRY O RDERABLES OTHER LAB * (ABNORMAL) COMP MET PANEL (EXTERNAL RESULT ENTRY) (02/06/2021) Only the most recent of9 resultswithin the time period is included. Glucose (EXTERNAL) 140(A) 65 - 99 mg/dL OTHER LAB Sodium (EXTERNAL RESULT) 140 mmol/L OTHER LAB Potassium (EXTERNAL RESULT) 4.2 mmol/L OTHER LAB Chloride (EXTERNAL RESULT) 103 mmol/L OTHER LAB CO2 (EXTERNAL) 23.0 mmol/L OTHER LAB Calcium (EXTERNAL RESULT) 10.3(A) 8.9 - 10.0 mg/dL OTHER LAB Anion Gap (EXTERNAL RESULT) 18.2(A) 8.0 - 16.0 mmol/L OTHER LAB BUN (EXTERNAL RESULT) 8 mg/dL OTHER LAB Creatinine (EXTERNAL RESULT) 0.8 mg/dl OTHER LAB Alkaline Phosphatase (EXTERNAL RESULT) 388(A) 40 - 150 U/L OTHER LAB ALT (EXTERNAL RESULT) 39 U/L OTHER LAB AST (EXTERNAL RESULT) 79(A) 14 - 36 U/L OTHER LAB Protein Total (EXTERNAL RESULT) 6.6 gm/dL OTHER LAB Albumin (EXTERNAL RESULT) 3.7 gm/dL OTHER LAB Bilirubin Total (EXTERNAL RESULT) 1.1(A) 0.2 - 1.0 mg/dL OTHER LAB eGFR MDRD (EXTERNAL RESULT) OTHER LAB eGFR (EXTERNAL) OTHER LAB Blood BLOOD SPECIMEN / Unknown 02/06/2021 Historical Provider MD LAB - CHEMISTRY O RDERABLES OTHER LAB * CT ABDOMEN MULTI PHASE W CONT (04/26/2020 10:12 AM BAG CHECKER) Only the most recent of2 resultswithin the time period is included. Anatomical Region Laterality Modality Abdomen Computed Tomogra phy 04/26/2020 10:3 9 AM BAG CHECKER Impressions 04/26/2020 2:44 PM BAG CHECKER Impression: Multiple arterial enhancing observations throughout the liver as detailed above, consistent with LR [address]ued [address] CT or MRI follow-up advised. Report drafted by Román Winslow (resident) I, Dr. SHAWN LOVE have personally reviewed and interpreted this examination/study. This report was electronically signed by SHAWN LOVE ??on 04/26/2020 2:44 PM . Narrative 04/26/2020 2:44 PM BAG CHECKER Procedure Information DATE: 04/26/2020 10:13 AM EXAMINATION: [...] visible osseous structures are intact. Procedure Note Shawn Love MD - 04/26/2020 Procedure Information DATE: [...] drafted by Román Winslow (resident) I, Dr. SHAWN LOVE have personally reviewed and interpreted this examination/study. This report was electronically signed by SHAWN LOVE on 04/26/2020 2:44 PM . Sara Joaquin [employer] CT ORDERABLE S * CREATININE - POCT INTERFACED (04/26/2020 9:54 AM BAG CHECKER) Creatinine POCT 0.80 0.30 - 1.30 mg/dL 04/26/2020 10:06 AM BAG CHECKER [facility] eGFR >60 >60 mL/min/1.7 3 m2 04/26/2020 10:06 AM BAG CHECKER [facility] Blood BLOOD SPECIMEN / Unknown 04/26/2020 9:54 AM BAG CHECKER 04/26/2020 10:06 AM BAG CHECKER Sara Joaquin [employer] LAB - POINT OF CARE ORDERABLES [facility] [address] [place] [address], [facility] [phone] * CARDIAC EKG ORDER (01/03/2020 8:53 AM CDT) Only the most recent of2 resultswithin the time period is included. Narrative 01/03/2020 8:53 AM CDT Ordered by an unspecified provider. Scanned Document CARDIAC SERVICES ORD ERABLES * US ABDOMEN LIMITED (07/07/2019 10:23 AM BAG CHECKER) Only the most recent of2 resultswithin the time period is included. Anatomical Region Laterality Modality Abdomen Ultrasound 07/07/2019 11:5 5 AM BAG CHECKER Impressions 07/07/2019 12:48 PM BAG CHECKER IMPRESSION: 1. Hepatic steatosis and cirrhosis. 2. [...] is recommended. Dictated by Jose Gill MD (director of radiology). I, Dr. ASHLYN STILL M.D. have personally reviewed and interpreted this examination/study. This report was electronically signed by ASHLYN STILL M.D. ??on 07/07/2019 12:48 PM . Narrative 07/07/2019 12:48 PM BAG CHECKER EXAMINATION: Limited abdominal sonogram HISTORY: K76.0: Fatty [...] No ascites is present. Procedure Note Ashlyn Still MD - 07/07/2019 EXAMINATION: Limited abdominal sonogram [...] is recommended. Dictated by Jose Gill MD (director of radiology). I, Dr. ASHLYN STILL M.D. have personally reviewed and interpretedthis examination/study. This report was electronically signed by ASHLYN STILL M.D. on 07/07/2019 12:48 PM . Sara Joaquin [employer] US ORDERABLE S * (ABNORMAL) CHEM PROFILE (EXTERNAL RESULT ENTRY) (04/18/2018) Only the most recent of3 resultswithin the time period is included. Glucose (EXTERNAL RESULT) 102(A) 65 - 99 mg/dl BUN (EXTERNAL RESULT) 27(A) 7 - 17 mg/dl Creatinine (EXTERNAL RESULT) 0.8 0.7 - 1.2 mg/dl Sodium (EXTERNAL RESULT) 139 137 - 145 mmol/L Potassium (EXTERNAL RESULT) 4.5 3.6 - 5 mmol/L Chloride (EXTERNAL RESULT) 108(A) 98 - 107 mmol/L Carbon Dioxide (EXTERNAL RESULT) 23 22 - 30 mmol/L Calcium (EXTERNAL RESULT) 9.7 8.9 - 10 mg/dl Phosphorus (EXTERNAL RESULT) 5.4(A) 2.3 - 4.7 mg/dl Total Protein (EXTERNAL RESULT) g/dl Albumin (EXTERNAL RESULT) 4.1 3.5 - 5 g/dl Alkaline Phosphatase (EXTERNAL RESULT) U/L ALT (EXTERNAL RESULT) units/L AST (EXTERNAL RESULT) units/L Bilirubin Total (EXTERNAL RESULT) mg/dl Bilirubin Direct (EXTERNAL RESULT) mg/dl Bilirubin Indirect (EXTERNAL RESULT) mg/dl Magnesium (EXTERNAL RESULT) mg/dl Blood BLOOD SPECIMEN / Unknown 04/18/2018 Historical Provider LAB - CHEMISTRY Aleah KERR * PATHOLOGY TISSUE (12/16/2017 3:25 PM CDT) Case Report Surgical Pathology Report ? Case: [id number] ? Authorizing Provider: ??Juan Turpin, ??Collected: ? 12/16/2017 03:25 PM ? MD ? Ordering Location: ? [facility] ? Received: ?12/16/2017 03:26 PM ? Pathologist: ? Emelina Spears MD ? Specimen: ?Slide Consultation, OSC: [id number] ? 12/31/2017 2:03 PM CDT [facility] Final Diagnosis Liver, needle biopsy (OSC: [id number], 02/10/17) - Steatohepatitis - Marked ductular reaction, cholestasis, and portal-portal bridging fibrosis - Hepatocellular iron, up to 3+ - See comment Gallbladder vesicles cystectomy (OSC: [id number], 02/10/17): - Chronic cholecystitis 12/31/2017 2:[address] [facility] Microscopic Description and Comment Sections [...] are seen. The PASd is negative for sedtn-[id number] globules. The iron stain highlights 3/4+ hepatocellular [...] likely reflecting steatohepatitic injury. 12/31/2017 2:[address] [facility] Clinical History The patient is a 57-year-old female with history of SALGADO cirrhosis who was admitted to the hospital in October for bilateral pneumonia and septic shock. 12/31/2017 2:[address] [facility] Materials Received Received are 8 slide(s) labeled [id number] along with a copy of the outside pathology report. Additionally received are 6 unstained slides also labeled [id number], from which 1 H&E, 1 special stain, and 1 immunostain are generated at [facility]. The materials originate from [facility], [address] [place] [address]. All original materials are returned to the referring institution, along with a copy of our final report. 12/31/2017 2:[address] [facility] Disclaimer The performance characteristics of all immunohistochemical and indirect immunofluorescence stains (if any) cited in this report were determined by the [facility] of [facility]. Some of these tests were developed by [...] the attending (teaching) pathologist. 12/31/2017 2:[address] [facility] Embedded Images 12/31/2017 2:[address] [facility] Pathology/Cytolo gy SURGICAL PATHOLOGY CONSULTATION AND REPORT ON REFERRED SLIDES PREPARED ELSEWHERE / Unknown 12/16/2017 3:25 PM CDT 12/16/2017 3:26 PM CDT Kody Turpin MD LAB - PATHOLOGY/CYTOLOGY ORDERABLES [facility] [address] [phone] * PHOSPHORUS (EXTERNAL RESULT ENTRY) (12/13/2017) Only the most recent of2 resultswithin the time period is included. Phosphorus (EXTERNAL RESULT) 4.5 2.3 - 4.7 mg/dl Blood BLOOD SPECIMEN / Unknown 12/13/2017 Historical Provider LAB - CHEMISTRY O RDERABLES * CARDIAC PROCEDURE ORDER (11/08/2017 6:53 PM CDT) Narrative 11/08/2017 6:53 PM CDT Ordered by an unspecified provider. Scanned Document CARDIAC SERVICES ORD ERABLES * GLUCOSE - POINT OF CARE (11/03/2017 2:37 PM CDT) Only the most recent of97 resultswithin the time period is included. Glucose WB/POC 84 70 - 115 mg/dL 11/03/2017 2:51 PM CDT [facility] Specimen Type Arterial/C apillary 11/03/2017 2:51 PM CDT [facility] Blood BLOOD SPECIMEN / Unknown 11/03/2017 2:37 PM CDT 11/03/2017 2:51 PM CDT Narrative [facility] - 11/03/2017 2:51 PM CDT Dress Draper: TRUJILLO ??CAPRICE Elver Askew MD LAB - POINT OF CARE ORDERABLES [facility] [address] [phone] * PT-INR [facility] (11/03/2017 7:27 AM CDT) Only the most recent of27 resultswithin the time period is included. PT 14.0 12.1 - 14.8 Seconds 11/03/2017 7:49 AM [facility] INR 1.1 See Comment 11/03/2017 7:49 AM [facility] Comment: Suggested therapeutic range for low-intensity coumadin therapy for venous thromboembolism prophylaxis is an INR of 2.0-3.0. ??For high risk patients (Mitral Valve Prosthesis, Atrial Fibrillation, history of TIA/stroke), suggested prophylactic therapeutic range is an INR of 2.5-3.5. Blood BLOOD SPECIMEN / Unknown Lab Venipuncture / Unknown 11/03/2017 7:27 AM CDT 11/03/2017 7:27 AM CDT Reuben Tellez MD LAB - COAGULATION OR DERABLES Performing Organization Address City/[facility]/ZIP Co de Phone Number [address] [phone] * (ABNORMAL) RBC MORPHOLOGY (11/03/2017 7:27 AM CDT) Only the most recent of5 resultswithin the time period is included. Platelet Estimate Adequate Adequate 11/03/2017 8:07 AM [facility] Anisocytosis 2+(A) None 11/03/2017 8:07 AM [facility] Macrocytosis 2+(A) None 11/03/2017 8:07 AM [facility] Blood BLOOD SPECIMEN / Unknown Lab Venipuncture / Unknown 11/03/2017 7:27 AM CDT 11/03/2017 7:27 AM CDT Ronaldo Flynn DO LAB - HEMATOLOGY ORD ERABLES Performing Organization Address City/[facility]/ZIP Co de Phone Number [address] [phone] * (ABNORMAL) CBC W AUTO DIFFERENTIAL (11/03/2017 7:27 AM CDT) Only the most recent of25 resultswithin the time period is included. WBC 8.5 3.5 - 10.5 10? 3 /uL 11/03/2017 7:38 AM [facility] RBC 2.32(L) 3.90 - 5.00 10? 6 /uL 11/03/2017 7:38 AM [facility] Hemoglobin 7.7(L) 12.0 - 15.5 g/dL 11/03/2017 7:38 AM [facility] Hematocrit 23.8(L) 35.0 - 45.0 % 11/03/2017 7:38 AM [facility] MCV 102.6(H) 81.0 - 97.0 fL 11/03/2017 7:38 AM [facility] MCH 33.2 28.0 - 34.0 pg 11/03/2017 7:38 AM [facility] MCHC 32.4 32.0 - 36.0 g/dL 11/03/2017 7:38 AM [facility] Platelet Count 237 150 - 400 10? 3 /uL 11/03/2017 7:38 AM [facility] RDW-SD 78.3(H) 36.0 - 50.0 fL 11/03/2017 7:38 AM [facility] RDW-CV 22.2(H) 11.2 - 14.8 % 11/03/2017 7:38 AM [facility] MPV 9.0(L) 9.3 - 12.8 fL 11/03/2017 7:38 AM [facility] Neutrophils % 76.3(H) 35.0 - 70.0 % 11/03/2017 7:38 AM [facility] Lymphocytes % 11.3(L) 19.7 - 55.1 % 11/03/2017 7:38 AM [facility] Monocytes % 8.6 3.0 - 15.0 % 11/03/2017 7:38 AM [facility] Eosinophils % 3.2 0.0 - 6.0 % 11/03/2017 7:38 AM [facility] Basophil % 0.6 0.0 - 1.5 % 11/03/2017 7:38 AM [facility] Neutrophils Absolute 6.5 1.6 - 7.0 10? 3 /uL 11/03/2017 7:38 AM [facility] Lymphocyte Absolute 1.0 0.8 - 2.9 10? 3 /uL 11/03/2017 7:38 AM [facility] Monocytes Absolute 0.73(H) 0.14 - 0.66 10? 3 /uL 11/03/2017 7:38 AM [facility] Eosinophils Absolute 0.27(H) 0.00 - 0.22 10? 3 /uL 11/03/2017 7:38 AM [facility] Basophils Absolute 0.05 0.00 - 0.06 10? 3 /uL 11/03/2017 7:38 AM [facility] Reflex Status Morphology review to follow. 11/03/2017 7:38 AM [facility] Immature Granulocytes % 0.5 0.0 - 1.0 % 11/03/2017 7:38 AM [facility] Blood BLOOD SPECIMEN / Unknown Lab Venipuncture / Unknown 11/03/2017 7:27 AM CDT 11/03/2017 7:27 AM T Ronaldo Flynn DO LAB - HEMATOLOGY ORD ERABLES [address] [phone] * (ABNORMAL) COMPREHENSIVE METABOLIC PANEL (11/03/2017 7:27 AM CDT) Only the most recent of24 resultswithin the time period is included. BUN 22 7 - 26 mg/dL 11/03/2017 8:07 AM [facility] Creatinine 1.3(H) 0.6 - 1.2 mg/dL 11/03/2017 8:07 AM [facility] Sodium 137 136 - 145 mmol/L 11/03/2017 8:07 AM [facility] Potassium 3.8 3.5 - 4.5 mmol/L 11/03/2017 8:07 AM [facility] Chloride 98 98 - 107 mmol/L 11/03/2017 8:07 AM [facility] CO2 29 22 - 29 mmol/L 11/03/2017 8:07 AM [facility] Glucose 84 70 - 115 mg/dL 11/03/2017 8:07 AM [facility] Calcium 9.1 8.4 - 10.2 mg/dL 11/03/2017 8:07 AM [facility] Protein Total 5.4(L) 6.0 - 8.3 g/dL 11/03/2017 8:07 AM [facility] Albumin 2.9(L) 3.4 - 5.0 g/dL 11/03/2017 8:07 AM [facility] Bilirubin Total 1.4(H) 0.2 - 1.2 mg/dL 11/03/2017 8:07 AM [facility] Alkaline Phosphatase 433(H) 40 - 150 Units/L 11/03/2017 8:07 AM [facility] ALT 35 0 - 55 Units/L 11/03/2017 8:07 AM [facility] AST 51(H) 5 - 34 Units/L 11/03/2017 8:07 AM [facility] Anion Gap 14 8 - 18 11/03/2017 8:07 AM [facility] BUN/Creatinine Ratio 17 7 - 23 11/03/2017 8:07 AM [facility] Osmolality Calculated 287 270 - 300 mOsm/kg 11/03/2017 8:07 AM [facility] Albumin/Globulin Ratio 1.2 1.1 - 2.3 11/03/2017 8:07 AM [facility] eGFR 42(L) >60 mL/min/1.7 3 m2 11/03/2017 8:07 AM [facility] Blood BLOOD SPECIMEN / Unknown Lab Venipuncture / Unknown 11/03/2017 7:27 AM CDT 11/03/2017 7:27 AM [facility] Elver Askew MD LAB - CHEMISTRY ORDERABLES [address] [phone] * PHOSPHORUS BLOOD (11/02/2017 6:46 AM [facility]) Only the most recent of11 resultswithin the time period is included. Phosphorus 3.4 2.3 - 4.7 mg/dL 11/02/2017 7:33 AM [facility] Blood BLOOD SPECIMEN / Unknown 11/02/2017 6:46 AM CDT 11/02/2017 7:08 AM CDT Andrew Ruiz MD LAB - CHEMISTRY ORDERABLES [facility] [address] [place] [address] * (ABNORMAL) DIFFERENTIAL MANUAL (11/01/2017 6:29 AM CDT) Only the most recent of7 resultswithin the time period is included. WBC (corrected for NRBC) 9.1 10? 3 /uL 11/01/2017 8:00 AM [facility] Total Cell Count 100 11/02/19 18 8:00 AM [facility] Neutrophils Absolute Manual 7.37(H) 1.60 - 7.00 10? 3 /uL 11/01/2017 8:00 AM [facility] Comment:(BANDS+SEGS) x WBC = NEUT # (ANC) Lymphocyte Absolute Manual 0.73(L) 0.80 - 2.90 10? 3 /uL 11/01/2017 8:00 AM [facility] Monocytes Absolute Manual 0.55 0.14 - 0.66 10? 3 /uL 11/01/2017 8:00 AM [facility] Eosinophils Absolute Manual 0.09 0.00 - 0.22 10? 3 /uL 11/01/2017 8:00 AM [facility] Basophil Absolute Manual 0.18(H) 0.00 - 0.06 10? 3 /uL 11/01/2017 8:00 AM [facility] Band % Manual 16(H) 0 - 10 % 11/01/2017 8:00 AM [facility] Neutrophil % Manual 65(H) 30 - 60 % 11/01/2017 8:00 AM [facility] Lymphocyte % Manual 8(L) 20 - 45 % 11/01/2017 8:00 AM [facility] Monocytes % Manual 6 2 - 10 % 11/01/2017 8:00 AM [facility] Eosinophils % Manual 1 1 - 6 % 11/01/2017 8:00 AM [facility] Basophils % Manual 2 0 - 3 % 11/01/2017 8:00 AM CDT [facility] Metamyelocyte % Manual 1(H) 0 % 11/01/2017 8:00 AM CDT [facility] Myelocytes % Manual 1(H) 0 % 11/01/2017 8:00 AM CDT [facility] Platelet Estimate Adequate Adequate 018 8:00 AM CDT [facility] Anisocytosis 2+(A) None 11/01/2017 8:00 AM CDT [facility] Macrocytosis 2+(A) None 11/01/2017 8:00 AM CDT [facility] Blood BLOOD SPECIMEN / Unknown 11/01/2017 6:29 AM CDT 11/01/2017 6:59 AM CDT Ronaldo Flynn DO LAB - HEMATOLOGY ORD ERABLES Performing Organization Address City/State/[facility] Co de Phone Number [facility] [address] [place] [address] * TISSUE TRANSGLUTAMINASE AB IGA (10/31/2017 5:12 AM CDT) TTG Antibody IgA <2 0 - 3 U/mL 11/02/2017 1:13 PM CDT [facility] ([facility]) Comment: ?Negative ?0 - ??3 ?Weak Positive ?? 4 - 10 ?Positive ? >10 Tissue Transglutaminase (tTG) has been identified as the endomysial antigen. ??Studies have demonstr- ated that endomysial IgA antibodies have over 99% specificity for gluten sensitive enteropathy. Blood BLOOD SPECIMEN / Unknown Lab Venipuncture / Unknown 10/31/2017 5:12 AM CDT 10/31/2017 5:29 AM CDT Narrative [facility] ([facility]) - 11/02/2017 1:13 PM CDT Performed at: ??01 - [facility] [address] [place], [place] ??[id number] Rand Butter: Dimitrios Abad PhD, Phone: ??[phone] Andrew Ruiz MD LAB - SEROLOGY O RDERABLES [facility] ([facility]) [address] [place] [address] * (ABNORMAL) CORTISOL BLOOD AM (10/31/2017 5:12 AM CDT) Only the most recent of3 resultswithin the time period is included. Cortisol AM 29.3(H) 3.7 - 19.4 mcg/dL 10/31/2017 8:48 AM CDT [facility] Blood BLOOD SPECIMEN / Unknown Lab Venipuncture / Unknown 10/31/2017 5:12 AM CDT 10/31/2017 5:30 AM CDT Andrew Ruiz MD LAB - CHEMISTRY ORDERABLES Performing Organization Address [facility]/ZIP Co de Phone Number [facility] [address] [phone] * PANCREATIC ELASTASE FECES (10/30/2017 3:28 PM CDT) Pathologist [facility] Pancreatic Elastase 413 >=201 ug/g 11/04/2017 1:00 PM CDT [employer] ([facility]) Comment: REFERENCE INTERVAL: Pancreatic Elastase, Fecal by BELEN ??Greater than 200 ug/g ........ Normal ??100-200 ug/g ................. Moderate to mild ? pancreatic insufficiency ??Less than 100 ug/g ........... Severe exocrine ? pancreatic insufficiency Reference range does not apply for infants less than one month old. Performed by [facility], [address] [place] [address] [email or web address], Poli Lamas MD, Lab. Director Stool STOOL SPECIMEN / Unknown Collection / Unknown 10/30/2017 3:28 PM CDT 10/30/2017 3:32 PM CDT Andrew Ruiz MD LAB - BODY FLUID ORDERABLES [employer] ([facility]) [address] [place] [address], [facility] * FL SWALLOWING FUNCTION STUDY (10/29/2017 2:15 PM CDT) Only the most recent of2 resultswithin the time period is included. Anatomical Region Laterality Modality Chest Radiographic Indira ging 10/29/2017 2:35 PM CDT Impressions 10/29/2017 3:17 PM CDT FINDINGS/IMPRESSION: Fluoroscopic assistance was provided for a procedure performed by Speech Therapy. ??Please see the separate report by Speech Therapy for further details. Fluoroscopy Time: 66 seconds. Dictated by Thom Reina MD (Resident). Dr. YANIRA Morel M.D. have personally reviewed and interpreted this examination/study. This report was electronically signed by YANIRA AGUILAR M.D. ??on 10/29/2017 3:17 PM . Narrative 10/29/2017 3:17 PM CDT EXAMINATION: FL SWALLOWING FUNCTION STUDY HISTORY: rule out aspiration Procedure Note Yanira Aguilar MD - 10/29/2017 EXAMINATION: FL SWALLOWING FUNCTION STUDY HISTORY: rule out aspiration FINDINGS/IMPRESSION: Fluoroscopic assistance was provided for a procedure performed by Speech Therapy. Please see the separate report by Speech Therapy for further details. Fluoroscopy Time: 66 seconds. Dictated by Thom Reina MD (Resident). Dr. YANIRA Morel M.D. have personally reviewed and interpreted this examination/study. This report was electronically signed by YANIRA AGUILAR M.D. on 10/29/2017 3:17 PM . Elver Askew MD FLUOROSCOPY ORD ERABLES * PTT [facility] (10/29/2017 12:08 AM CDT) Only the most recent of13 resultswithin the time period is included. APTT 30.3 23.0 - 38.4 Seconds 10/29/2017 12:52 AM [facility] Comment: Suggested therapeutic range for full dose I.V. heparin therapy for venous thromboembolism is 66.0-91.0 seconds. Blood BLOOD SPECIMEN / Unknown Lab Venipuncture / Unknown 10/29/2017 12:08 AM CDT 10/29/2017 12:40 AM CDT Reuben Tellez MD LAB - COAGULATION OR DERABLES Performing Organization Address [facility] Co de Phone Number [address] [phone] * (ABNORMAL) CBC W/O DIFFERENTIAL (10/29/2017 12:08 AM CDT) Only the most recent of14 resultswithin the time period is included. Pathologist [facility] WBC 10.1 3.5 - 10.5 10? 3 /uL 10/29/2017 1:04 AM [facility] RBC 2.29(L) 3.90 - 5.00 10? 6 /uL 10/29/2017 1:04 AM [facility] Hemoglobin 7.4(L) 12.0 - 15.5 g/dL 10/29/2017 1:04 AM [facility] Hematocrit 23.0(L) 35.0 - 45.0 % 10/29/2017 1:04 AM [facility] MCV 100.4(H) 81.0 - 97.0 fL 10/29/2017 1:04 AM [facility] MCH 32.3 28.0 - 34.0 pg 10/29/2017 1:04 AM [facility] MCHC 32.2 32.0 - 36.0 g/dL 10/29/2017 1:04 AM [facility] Platelet Count 59(L) 150 - 400 10? 3 /uL 10/29/2017 1:04 AM [facility] RDW-SD 54.2(H) 36.0 - 50.0 fL 10/29/2017 1:04 AM [facility] RDW-CV 22.4(H) 11.2 - 14.8 % 10/29/2017 1:04 AM [facility] MPV 10.7 9.3 - 12.8 fL 10/29/2017 1:04 AM [facility] Blood BLOOD SPECIMEN / Unknown Lab Venipuncture / Unknown 10/29/2017 12:08 AM CDT 10/29/2017 12:40 AM T Andrew Ruiz MD LAB - HEMATOLOGY ORDERABLES Performing Organization Address City/State/[facility] Co de Phone Number [facility] [address] [place] [address] * (ABNORMAL) HEPATIC FUNCTION PANEL (10/29/2017 12:08 AM T) Protein Total 5.1(L) 6.0 - 8.3 g/dL 018 1:12 AM [facility] Albumin 3.3(L) 3.4 - 5.0 g/dL 10/29/2017 1:12 AM [facility] Bilirubin Total 1.4(H) 0.2 - 1.2 mg/dL 10/15 1:12 AM [facility] Bilirubin Conjugated 0.7(H) 0.0 - 0.5 mg/dL 10/29/2017 1:12 AM [facility] Bilirubin Unconjugated 0.7 Unconjugated Bilirubin is a calculated value: Reference ranges have not been established. mg/dL 10/29/2017 1:12 AM [facility] Alkaline Phosphatase 460(H) 40 - 150 Units/L 10/29/2017 1:12 AM [facility] ALT 22 0 - 55 Units/L 10/29/2017 1:12 AM [facility] AST 40(H) 5 - 34 Units/L 10/29/2017 1:12 AM CDT [facility] Albumin/Globulin Ratio 1.8 1.1 - 2.3 10/29/2017 1:12 AM CDT [facility] Blood BLOOD SPECIMEN / Unknown Lab Venipuncture / Unknown 10/29/2017 12:08 AM CDT 10/29/2017 12:40 AM CDT Reuben Tellez MD LAB - CHEMISTRY SHIRLEY GARCIA [address] [phone] * IR CENTRAL LINE INSERT TUNNEL (10/28/2017 2:42 PM CDT) Anatomical Region Laterality Modality X-Ray Angiograph y 10/28/2017 2:51 PM CDT Impressions 10/28/2017 2:55 PM CDT Impression: Successful placement of right ??internal jugular tunneled dialysis catheter. I was present for the entire procedure. This report was electronically signed by NATHALIE AREVALO MD ??on 10/28/2017 2:55 PM . Narrative 10/28/2017 2:55 PM CDT This is an interventional nephrology procedure performed on 10/28/17 Dress Draper: Marcia Arevalo Attending: Marcia Arevalo Procedures performed: 1. Insertion of tunneled central venous catheter 2. Fluoroscopic guidance for central venous catheter procedure 3. Ultrasound guidance for vascular access with permanent recording This patient was referred for placement of tunneled dialysis catheter. Following informed consent he was taken to the angiography suite and placed on the fluoroscopy table. The skin of the right ??neck and chest was prepared with chlorhexidine and sterile drapes were applied. Under real time ultrasound guidance, the right ??internal jugular vein was accessed with a micropuncture needle, a hyde scale image was recorded and a microfilament wire was advanced to the central veins under fluoroscopic guidance. ??A 5 Cymraes trocar was placed and a 0.035 guidewire was then advanced through the trocar and was manipulated into the IVC. ??An exit site was chosen on the chest wall and anesthetized with lidocaine. ??Using a metal tunneling device, a 24 cm Duraflow 2 dialysis access catheter was brought through a subcutaneous tunnel to the venotomy incision and prepared for insertion. ??Serial dilators were utilized to create a track to the jugular vein sufficient to accommodate a peel-away sheath which was inserted over the guidewire and the inner stylet was removed. ??The catheter was inserted through the sheath which was then removed. ??The catheter was adjusted for length under fluoroscopy such that the tip was at the junction of the SVC and RA. ??Both lumens flushed easily and were locked with heparin. ??The catheter was sutured in place with 2-0 nylon and a CHG dressing was placed. ??The venotomy incision was closed with a 2-0 nylon suture. Procedure Note Nathalie Arevalo MD - 10/28/2017 This is an interventional nephrology procedure performed on 10/28/17 Dress Draper: Marcia Arevalo Attending: Marcia Arevalo Procedures performed: 1. Insertion of tunneled central venous catheter 2. Fluoroscopic guidance for central venous catheter procedure 3. Ultrasound guidance for vascular access with permanent recording This patient was referred for placement of tunneled dialysis catheter. Following informed consent he was taken to the angiography suite and placed on the fluoroscopy table. The skin of the right neck and chestwas prepared with chlorhexidine and sterile drapes were applied. Under real time ultrasound guidance, the right internal jugular vein was accessed with a micropuncture needle, a hyde scale image was recorded and a microfilament wire was advanced to the central veins under fluoroscopic guidance. A 5 Cymraes trocar was placed and a 0.035 guidewire was then advanced through the trocar and was manipulated into the IVC. An exit site was chosen on the chest wall and anesthetized with lidocaine.Using a metal tunneling device, a 24 cm Duraflow 2 dialysis access catheterwas brought through a subcutaneous tunnel to the venotomy incision and prepared for insertion. Serial dilators were utilized to create a track to the jugular vein sufficient to accommodate a peel-away sheath whichwas inserted over the guidewire and the inner stylet was removed. The catheter was inserted through the sheath which was then removed. The catheter was adjusted for length under fluoroscopy such that the tip was at the junction of the SVC and RA. Both lumens flushed easily and were locked with heparin. The catheter was sutured in place with 2-0 nylonand a CHG dressing was placed. The venotomy incision was closed with a 2-0 nylon suture. Impression: Successful placement of right internal jugular tunneled dialysis catheter. I was present for the entire procedure. This report was electronically signed by NATHALIE AREVALO MD on 10/28/2017 2:55 PM . Nathalie Arevalo MD IR ORDERABLES * TYPE + SCREEN PANEL (10/28/2017 8:51 AM CDT) Only the most recent of3 resultswithin the time period is included. Pathologist [facility] Antibody Screen NEG 8 9:41 AM CDT [facility] ABO Rh O POS 10/28/2017 9:41 AM CDT [facility] Blood Bank BLOOD SPECIMEN / Unknown 10/28/2017 8:51 AM CDT 10/28/2017 8:52 AM CDT Andrew Ruiz MD LAB - BLOOD BANK ORDERABLES [facility] [address] [place] [address] * (ABNORMAL) HEMOGLOBIN (10/28/2017 8:45 AM CDT) [facility] Hemoglobin 7.1(L) 12.0 - 15.5 g/dL 10/28/2017 8:54 AM CDT [facility] Blood BLOOD SPECIMEN / Unknown 10/28/2017 8:45 AM CDT 10/28/2017 8:53 AM CDT Andrew Ruiz MD LAB - HEMATOLOGY ORDERABLES [facility] [address] [place] [address] * MITOCHONDRIAL ANTIBODY SCREEN (10/28/2017 5:31 AM CDT) Only the most recent of2 resultswithin the time period is included. Pathologist [facility] Mitochondrial M2 Antibody 1.9 0.0 - 20.0 Units 10/29/2017 11:13 AM CDT [facility] Comment: Mitochondrial M2 Antibody Numeric Result Interpretation: ?<20.1 Units: ??Negative ?20.1 - 24.9 Units: ??Equivocal ?>24.9 Units: ??Positive ? Blood BLOOD SPECIMEN / Unknown Venipuncture / Unknown 10/28/2017 5:31 AM CDT 10/28/2017 5:50 AM CDT Andrew Ruiz MD LAB - CHEMISTRY ORDERABLES Performing Organization Address [facility]/ZIP Co de Phone Number [address] [phone] * (ABNORMAL) CERULOPLASMIN (10/28/2017 5:31 AM CDT) Ceruloplasmin 12(L) 20 - 60 mg/dL 10/28/2017 6:29 AM CDT [facility] Blood BLOOD SPECIMEN / Unknown Venipuncture / Unknown 10/28/2017 5:31 AM CDT 10/28/2017 5:50 AM CDT Andrew Ruiz MD LAB - CHEMISTRY ORDERABLES Performing Organization Address [facility]/ZIP Co de Phone Number [address] [phone] * (ABNORMAL) VITAMIN D 1,25 DIHYDROXY (10/28/2017 5:31 AM CDT) Calcitriol (1,25 di-OH Vit D) 8.3(L) 19.9 - 79.3 pg/mL 11/01/2017 5:10 PM CDT [facility] ([facility]) Blood BLOOD SPECIMEN / Unknown Venipuncture / Unknown 10/28/2017 5:31 AM CDT 10/28/2017 5:50 AM CDT Narrative [facility] ([facility]) - 11/01/2017 5:10 PM CDT Performed at: ??01 - [facility] [address] ??[id number] Rand Butter: Isra Milton MD, Phone: ??[phone] Andrew Ruiz MD LAB - CHEMISTRY ORDERABLES Performing Organization Address [facility] Co de Phone Number [facility] ([facility]) [address] [place] [address] * SMOOTH MUSCLE ANTIBODY (10/28/2017 5:31 AM CDT) F-Actin Antibody IgG 4.4 0.0 - 19.9 Units 10/29/2017 11:13 AM CDT [facility] Comment: F-Actin Antibody Numeric Result Interpretation: ?<20.0 Units: ??Negative ?20.0 - 30.0 Units: ??Weak Positive ?>30.0 Units: ??Moderate to Strong Positive ? Blood BLOOD SPECIMEN / Unknown Venipuncture / Unknown 10/28/2017 5:31 AM CDT 10/28/2017 5:50 AM CDT Andrew Ruiz MD LAB - SEROLOGY O RDERABLES Performing Organization Address [facility] Co de Phone Number [address] [phone] * ECHO FU OR LIMITED (10/27/2017 2:21 PM CDT) Anatomical Region Laterality Modality Color Flow Doppl er 10/27/2017 2:21 PM CDT Narrative Procedure Note Chay Aguilar MD - 10/27/2017 Manav Gabriel DO ECHOCARDIOGRAPHY RAD IANT * XR CHEST 1VW PORTABLE (10/27/2017 11:28 AM CDT) Only the most recent of9 resultswithin the time period is included. Anatomical Region Laterality Modality Chest Radiographic Indira ging 10/27/2017 2:52 PM CDT Impressions 10/28/2017 8:38 AM CDT FINDINGS/IMPRESSION: An endotracheal tube has been removed. A left internal jugular approach central venous catheter tip superimposes the right atrium. A right upper extremity peripherally inserted central catheter has been removed. 2 enteric tubes superimposes the gastric body. Mild right basilar atelectasis/airspace disease is increased from prior examination. Left perihilar opacities are unchanged and may represent edema versus infection. A small left pleural effusion is increased from prior examination. No pneumothorax or right pleural effusion is identified. The cardiomediastinal silhouette is normal. Dictated by Thom Reina MD (director of radiology). Dr. ASTRID Morel have personally reviewed and interpreted this examination/study. This report was electronically signed by ASTRID FRANCO ??on 10/28/2017 8:38 AM . Narrative 10/28/2017 8:38 AM CDT EXAMINATION: XR CHEST 1VW PORTABLE HISTORY: sob COMPARISON: Comparison is made with a study from 10/22/2017. Procedure Note Astrid Franco DO - 10/28/2017 EXAMINATION: XR CHEST 1VW PORTABLE HISTORY: sob COMPARISON: Comparison is made with a study from 10/22/2017. FINDINGS/IMPRESSION: An endotracheal tube has been removed. A left internal jugular approach central venous catheter tip superimposes the right atrium. A right upper extremity peripherally inserted central catheter has been removed. 2 enteric tubes superimposes the gastric body. Mild right basilar atelectasis/airspace disease is increased from prior examination. Left perihilar opacities are unchanged and may represent edema versus infection. A small left pleural effusion is increased from prior examination. No pneumothorax or right pleural effusion is identified. The cardiomediastinal silhouette is normal. Dictated by Thom Reina MD (director of radiology). Dr. ASTRID Morel have personally reviewed and interpreted this examination/study. This report was electronically signed by ASTRID FRANCO on 10/28/2017 8:38 AM . Manav Gabriel DO DIAGNOSTIC IMAGING O RDERABLES * (ABNORMAL) TROPONIN I (10/27/2017 4:11 AM CDT) Only the most recent of3 resultswithin the time period is included. Troponin I 0.070(H) <0.032 ng/mL 10/27/2017 10:18 AM CDT [facility] Blood BLOOD SPECIMEN / Unknown Venipuncture / Unknown 10/27/2017 4:11 AM CDT 10/27/2017 9:57 AM CDT Reuben Tellez MD LAB - CHEMISTRY SHIRLEY GARCIA [address] [phone] * (ABNORMAL) B-TYPE NATRIURETIC PEPTIDE (10/27/2017 4:11 AM CDT) Pathologist [facility] BNP 326(H) See Comment pg/mL 10/27/2017 5:05 AM CDT [facility] Comment: A decision threshold of 100 pg/mL has been demonstrated to provide the maximal combination of sensitivity, specificity and predictive value for the diagnosis of congestive heart failure (CHF). ??Virtually all patients with no evidence of CHF have BNP values less than 100 pg/mL. A BNP value greater than 100 pg/mL is consistent with the diagnosis of CHF in the appropriate clinical setting. In a study of 693 patients (male and female) with diagnosed CHF, the following values were determined based on the NYHA functional classification system: NYHA Functional Class ?Mean Valule (pg/mL) ? % >100 pg/mL ?I ?320 ? 58.1 ?II ? 432 ? 73.0 ?III ?656 ? 79.0 ?IV ?1635 ? 98.3 ? Blood BLOOD SPECIMEN / Unknown Venipuncture / Unknown 10/27/2017 4:11 AM CDT 10/27/2017 4:30 AM CDT Reuben Tellez MD LAB - CHEMISTRY SHIRLEY GARCIA Performing Organization Address [facility] de Phone Number [address] [phone] * MAGNESIUM BLOOD (10/27/2017 4:11 AM CDT) Only the most recent of17 resultswithin the time period is included. Pathologist [facility] Magnesium 2.5 1.6 - 2.6 mg/dL 10/27/2017 5:02 AM CDT [facility] Blood BLOOD SPECIMEN / Unknown Venipuncture / Unknown 10/27/2017 4:11 AM CDT 10/27/2017 4:30 AM CDT Elver Askew MD LAB - CHEMISTRY ORDERABLES Performing Organization Address [facility] de Phone Number [address] [phone] * (ABNORMAL) RENAL FUNCTION PANEL (2017 11:03 PM CDT) Only the most recent of22 resultswithin the time period is included. BUN 20 7 - 26 mg/dL 2017 11:34 PM [facility] Creatinine 0.7 0.6 - 1.2 mg/dL 2017 11:34 PM [facility] Sodium 139 136 - 145 mmol/L 2017 11:34 PM [facility] Potassium 3.5 3.5 - 4.5 mmol/L 2017 11:34 PM [facility] Chloride 104 98 - 107 mmol/L 2017 11:34 PM [facility] CO2 24 22 - 29 mmol/L 2017 11:34 PM [facility] Glucose 208(H) 70 - 115 mg/dL 2017 11:34 PM [facility] Albumin 3.4 3.4 - 5.0 g/dL 2017 11:34 PM [facility] Calcium 9.5 8.4 - 10.2 mg/dL 2017 11:34 PM [facility] Phosphorus 1.1(L) 2.3 - 4.7 mg/dL 2017 11:34 PM [facility] Anion Gap 15 8 - 18 2017 11:34 PM [facility] BUN/Creatinine Ratio 29(H) 7 - 23 2017 11:34 PM [facility] Osmolality Calculated 297 270 - 300 mOsm/kg 2017 11:34 PM [facility] eGFR >60 >60 mL/min/1.7 3 m2 2017 11:34 PM [facility] Blood BLOOD SPECIMEN / Unknown Venipuncture / Unknown 2017 11:03 PM CDT 2017 11:06 PM T Ronaldo Flynn DO LAB - CHEMISTRY SHIRLEY GARCIA [facility] [address] [place] [address] * XR ABDOMEN KUB (10/25/2017 9:22 PM CDT) Anatomical Region Laterality Modality Abdomen Radiographic Indira ging 2017 8:27 AM CDT Impressions 2017 3:06 PM CDT FINDINGS/IMPRESSION: An enteric tube tip terminates in the gastric body with the side-port near the GE junction. Surgical clips are noted in the upper abdomen. No abnormally dilated loops of bowel gas are identified. Dictated by Thom Reina MD (resident). This report was approved ??by Thom Reina ?? on 2017 2:[address] EULALIA Morel M.D. have personally reviewed and interpreted this examination/study. This report was electronically signed by EULALIA HAYS M.D. ??on 2017 3:06 PM . Narrative 2017 3:06 PM CDT EXAMINATION: XR ABDOMEN KUB HISTORY: R10.9: Abdominal pain, unspecified abdominal location COMPARISON: Comparison is made with a study from 10/15/2017 Procedure Note Eulalia Hays MD - 2017 EXAMINATION: XR ABDOMEN KUB HISTORY: R10.9: Abdominal pain, unspecified abdominal location COMPARISON: Comparison is made with a study from 10/15/2017 FINDINGS/IMPRESSION: An enteric tube tip terminates in the gastric body with the side-portnear the GE junction. Surgical clips are noted in the upper abdomen. No abnormally dilated loops of bowel gas are identified. Dictated by Thom Reina MD (resident). This report was approved by Thom Reina on 2017 2:33 PM . Adriel, Dr. EULALIA HAYS M.D. have personally reviewed and interpreted this examination/study. This report was electronically signed by EULALIA HAYS M.D. on 2017 3:06 PM . Tomas Pena MD DIAGNOSTIC IMAG ING ORDERABLES * COMPLEMENT C4 (10/25/2017 12:25 PM CDT) Only the most recent of2 resultswithin the time period is included. Complement C4 15 15 - 57 mg/dL 10/25/2017 1:26 PM CDT [facility] Blood BLOOD SPECIMEN / Unknown Venipuncture / Unknown 10/25/2017 12:25 PM CDT 10/25/2017 12:43 PM CDT Ronaldo Flynn DO LAB - SEROLOGY ORDER OLGA Performing Organization Address City/[facility]/[place] [address], [facility] [phone] * COMPLEMENT C3 (10/25/2017 12:25 PM CDT) Only the most recent of2 resultswithin the time period is included. Complement C3 82 82 - 193 mg/dL 10/25/2017 1:26 PM CDT [facility] Blood BLOOD SPECIMEN / Unknown Venipuncture / Unknown 10/25/2017 12:25 PM CDT 10/25/2017 12:43 PM CDT Ronaldo Flynn DO LAB - CHEMISTRY ORDE JOSE Performing Organization Address [facility] Co de Phone Number [address] [phone] * (ABNORMAL) LDH BLOOD (10/25/2017 8:38 AM CDT) Only the most recent of3 resultswithin the time period is included. LDH Total 308(H) 125 - 243 Units/L 10/25/2017 8:52 AM CDT [facility] Blood BLOOD SPECIMEN / Unknown Venipuncture / Unknown 10/25/2017 8:38 AM CDT 10/25/2017 8:38 AM CDT Singh Odell MD LAB - CHEMISTRY ORDLynn GARCIA Performing Organization Address City/[facility]/[place] [address], [facility] [phone] * (ABNORMAL) BILIRUBIN DIRECT (10/25/2017 8:38 AM CDT) Only the most recent of2 resultswithin the time period is included. Bilirubin Conjugated 0.9(H) 0.0 - 0.5 mg/dL 10/25/2017 8:52 AM CDT [facility] Bilirubin Unconjugated 0.6 Unconjugated Bilirubin is a calculated value: Reference ranges have not been established. mg/dL 10/25/2017 8:52 AM [facility] Blood BLOOD SPECIMEN / Unknown Venipuncture / Unknown 10/25/2017 8:38 AM CDT 10/25/2017 8:38 AM CDT Singh Odell MD LAB - CHEMISTRY SHIRLEY GARCIA [facility] Organization Address City/State/ZIP Co de Phone Number [facility] [address] [place] [address] * (ABNORMAL) BLOOD GASES ART (10/22/2017 11:20 AM T) Only the most recent of5 resultswithin the time period is included. pH Arterial 7.42 7.35 - 7.45 10/22/2017 11:35 AM [facility] pCO2 Arterial 40 35 - 45 mmHg 10/22/2017 11:35 AM [facility] pO2 Arterial 103(H) 77 - 101 mmHg 10/22/2017 11:35 AM [facility] HCO3 Arterial 25.2 22.0 - 26.0 mmol/L 10/22/2017 11:35 AM [facility] TCO2 Arterial 26.4 25.0 - 29.0 mmol/L 10/22/2017 11:35 AM [facility] Base Excess Arterial 0.7 -2.0 - 2.0 mmol/L 10/22/2017 11:35 AM [facility] Hemoglobin Arterial 8.2(L) 12.0 - 15.5 g/dL 10/22/2017 11:35 AM [facility] Oxyhemoglobin Arterial 95.7 95.0 - 100.0 % 10/22/2017 11:35 AM [facility] Carboxyhemoglobin 0.2 0.0 - 3.0 % 10/22/2017 11:35 AM [facility] Methemoglobin 0.5 0.0 - 2.0 % 10/22/2017 11:35 AM [facility] FI O2 Arterial 30.0 % 10/22/2017 11:35 AM [facility] Blood, arterial ARTERIAL BLOOD SPECIMEN / Unknown Arterial Puncture / Unknown 10/22/2017 11:20 AM CDT 10/22/2017 11:33 AM CDT Reuben Tellez MD LAB - BLOOD GASES OR DERABLES [address] [phone] * CALCIUM IONIZED WHOLE BLOOD (10/22/2017 4:46 AM CDT) Only the most recent of11 resultswithin the time period is included. Ionized Calcium Whole Blood 1.22 mmol/L 10/22/2017 4:56 AM CDT [facility] Adjusted Ionized Calcium 1.22 1.19 - 1.34 mmol/L 10/22/2017 4:56 AM CDT [facility] pH Whole Blood 7.40 7.35 - 7.45 10/22/2017 4:56 AM CDT [facility] Blood BLOOD SPECIMEN / Unknown Venipuncture / Unknown 10/22/2017 4:46 AM CDT 10/22/2017 4:52 AM CDT Elver Askew MD LAB - CHEMISTRY ORDERABLES Performing Organization Address [facility]/ZIP Co de Phone Number [address] [phone] * (ABNORMAL) FIBRINOGEN ACTIVITY (10/21/2017 3:18 AM CDT) Only the most recent of3 resultswithin the time period is included. Fibrinogen Clauss 120(L) 200 - 400 mg/dL 10/21/2017 3:39 AM CDT [facility] Blood BLOOD SPECIMEN / Unknown Venipuncture / Unknown 10/21/2017 3:18 AM CDT 10/21/2017 3:21 AM CDT Reuben Tellez MD LAB - COAGULATION OR DERABLES [address] [phone] * CULTURE ANAEROBE (10/19/2017 4:03 PM CDT) Only the most recent of2 resultswithin the time period is included. Culture No anaerobic organisms isolated DEJUAN 10/25/2017 5:28 PM CDT [facility] Microbiology ASCITIC FLUID SPECIMEN / Unknown Collection / Unknown 10/19/2017 4:03 PM CDT 10/19/2017 4:07 PM CDT Narrative [facility] - 10/25/2017 5:28 PM CDT Bottle Only !!!!! ??No Gram Stain !!!! Mireya Palma DO LAB - MICROBIOLOGY O CIRILO Performing Organization Address [facility] Co de Phone Number [facility] [address] [place] [address], [facility] [phone] * CULTURE FLUID+GRAM STAIN (10/19/2017 4:02 PM CDT) Only the most recent of3 resultswithin the time period is included. Culture No growth DEJUAN 10/27/2017 3:25 PM CDT [facility] Fluid ASCITIC FLUID SPECIMEN / Unknown Collection / Unknown 10/19/2017 4:02 PM CDT 10/19/2017 4:07 PM CDT [facility] - 10/27/2017 3:25 PM CDT Bottles Only No Gram Stain Mireya Palma DO LAB - MICROBIOLOGY Aleah KERR Performing Organization Address [facility] Co de Phone Number [facility] [address] [place] [address], [facility] [phone] * (ABNORMAL) CELL COUNT W DIFFERENTIAL FLUID (10/19/2017 4:01 PM CDT) Only the most recent of3 resultswithin the time period is included. Color Fluid Yellow(A) Colorless, Straw 10/19/2017 4:24 PM CDT [facility] Clarity Fluid Slighty Cloudy(A) Clear 10/19/2017 4:24 PM CDT [facility] Volume Fluid 3.0 mL 10/19/2017 4:24 PM CDT [facility] WBC Fluid 22 Reference Range Not Established /uL 10/19/2017 4:24 PM [facility] RBC Fluid 1,000 Reference Range Not Established /uL 10/19/2017 4:24 PM T [facility] Differential Manual Differential to follow. 10/19/2017 4:24 PM T [facility] Fluid (Ascities) Collection / Unknown 10/19/2017 4:01 PM CDT 10/19/2017 4:07 PM CDT Narrative [facility] - 10/19/2017 4:24 PM CDT No established reference range for WBC and RBC body fluid count. Mireya Palma DO LAB - BODY FLUID ORD ERABLES [address] [phone] * DIFFERENTIAL MANUAL FLUID (10/19/2017 4:01 PM CDT) Only the most recent of3 resultswithin the time period is included. Segs % Fluid 46 % 10/19/2017 4:38 PM [facility] Lymphocytes % Fluid 16 % 10/19/2017 4:38 PM T [facility] Monocytes % Fluid 10 % 10/19/2017 4:38 PM T [facility] Macrophages % Fluid 28 % 10/19/2017 4:38 PM T [facility] Fluid (Ascities) Collection / Unknown 10/19/2017 4:01 PM CDT 10/19/2017 4:07 PM CDT Mireya Palma DO LAB - [place] [address], [facility] [phone] * TRANSFUSE RED BLOOD CELL UNIT(S) (10/19/2017 10:46 AM CDT) Elver Askew MD NURSING - BLOOD PROD TRANSFUSION * CT ABDOMEN PELVIS WO CONTRAST (10/19/2017 6:37 AM CDT) Anatomical Region Laterality Modality Abdomen, Pelvis Computed Tomogra phy 10/19/2017 6:39 AM CDT Impressions 10/19/2017 12:58 PM CDT IMPRESSION: 1. Ukdut-em-quyhugch bilateral pleural effusions with confluent groundglass opacities and consolidation throughout both lungs likely representing pulmonary edema or multifocal pneumonia, not significantly changed from prior exam. 2. Large volume abdominopelvic ascites and diffuse body wall anasarca. 3. Persistent nephrogram in bilateral kidneys on this noncontrast examination likely from the prior CT PE protocol of 10/15/2017. This likely represents systemic hypotension. Dictated by Eli Zuniga MD (director of radiology). I, Dr. EARLENE JORDAN M.D. have personally reviewed and interpreted this examination/study. This report was electronically signed by EARLENE JORDAN M.D. ??on 10/19/2017 12:58 PM . Narrative 10/19/2017 12:58 PM CDT EXAMINATION: Computed tomography (CT) of the abdomen and pelvis without contrast HISTORY: R10.9: Abdominal pain, unspecified abdominal location TECHNIQUE: CT of the abdomen and pelvis was performed without contrast according to standard protocol. COMPARISON: Comparison is made with CT Liver from 07/09/2017 FINDINGS: Evaluation of visceral and vascular structures is limited due to lack of intravenous contrast administration. The aorta is atherosclerotic but normal in caliber. Bilateral small to moderate volume bilateral pleural effusions with associated atelectasis are present. There are diffuse consolidative and groundglass opacities the lung bases, partially imaged. Calcified mediastinal and hilar lymph nodes are noted. The heart size is normal without pericardial effusion. The liver appears normal for the noncontrast [...] is no evidence of hydronephrosis or hydroureter. A nasogastric/orogastric tube terminates in the distal [...] abdominopelvic ascites. There is no abdominal lymphadenopathy. A Johnson catheter terminates within a decompressed urinary bladder. The gas within the urinary bladder is likely related to catheterization. There is high attenuating content within the urinary bladder representing contrast from the prior contrast-enhanced CT. The uterus is normal. There is no pelvic lymphadenopathy. Diffuse body wall anasarca is noted. Bone windows demonstrate no suspicious lytic or blastic lesions. Multilevel degenerative changes are noted. There is thoracolumbar levoscoliosis. Procedure Note Earlene Jordan MD - 10/19/2017 EXAMINATION: Computed tomography (CT) of the abdomen and pelvis without contrast HISTORY: R10.9: Abdominal pain, unspecified abdominal location TECHNIQUE: CT of the abdomen and pelvis was performed without contrast according to standard protocol. COMPARISON: Comparison is made with CT Liver from 07/09/2017 FINDINGS: Evaluation of visceral and vascular structures is limited due to lack of intravenous contrast administration. The aorta is atherosclerotic but normal in caliber. Bilateral small to moderate volume bilateral pleural effusions with associated atelectasis are present. There are diffuse consolidative and groundglass opacities the lung bases, partially imaged. Calcified mediastinal and hilar lymph nodes are noted. The heart size is normal without pericardial effusion. The liver appears normal for the noncontrast technique. The gallbladderis surgically absent. The intrahepatic and extrahepatic bile ducts are nondilated. The pancreas is atrophic. A calcified granuloma is noted in the spleen. The adrenal glands appear normal. Bilateral kidneys are atrophic with nonspecific perinephric stranding. Persistent nephrogramis identified in bilateral kidneys on this noncontrast examination from the prior CT PE protocol performed on 10/15/2017. A cyst is seen arising from the lower pole of the left kidney. No renal, ureteral, or bladdercalculi are visible. There is no evidence of hydronephrosis or hydroureter. A nasogastric/orogastric tube terminates in the distal [...] abdominopelvic ascites. There is no abdominal lymphadenopathy. A Johnson catheter terminates within a decompressed urinary bladder. Thegas within the urinary bladder is likely related to catheterization. Thereis high attenuating content within the urinary bladder representingcontrast from the prior contrast-enhanced CT. The uterus is normal. There is no pelvic lymphadenopathy. Diffuse body wall anasarca is noted. Bone windows demonstrate no suspicious lytic or blastic lesions. Multilevel degenerative changes are noted. There is thoracolumbar levoscoliosis. IMPRESSION: 1. Wtesl-nt-qttzlwjd bilateral pleural effusions with confluent groundglass opacities and consolidation throughout both lungs likely representing pulmonary edema or multifocal pneumonia, not significantly changed from prior exam. 2. Large volume abdominopelvic ascites and diffuse body wall anasarca. 3. Persistent nephrogram in bilateral kidneys on this noncontrast examination likely from the prior CT PE protocol of 10/15/2017. Thislikely represents systemic hypotension. Dictated by Eli Zuniga MD (director of radiology). I, Dr. EARLENE JORDAN M.D. have personally reviewed and interpreted this examination/study. This report was electronically signed by EARLENE JORDAN M.D. on 10/19/2017 12:58 PM . Jean Real MD CT ORDERABLES * PREPARE (CROSSMATCH) RBC UNIT(S), 1 Units (10/19/2017 5:32 AM CDT) Unit Description LR Red Cells [facility] Unit ABO O [facility] Unit Rh POS [facility] Product Code RL1 [facility] Unit Donor # [id number] [facility] Unit Status transfused [facility] Product Number [id number] [facility] Blood Type Barcode 5100 [facility] Blood Bank BLOOD SPECIMEN / Unknown 10/19/2017 5:32 AM CDT 10/19/2017 5:32 AM CDT Elver Askew MD LAB - BLOOD BAN K ORDERABLES Performing Organization Address City/[facility]/ZIP Co de Phone Number [facility] [address] [place] [address] * PREPARE CRYOPRECIPITATE UNIT (S), 5 Units (10/19/2017 5:32 AM CDT) Unit Description N/A [facility] Blood Bank BLOOD SPECIMEN / Unknown 10/19/2017 5:32 AM CDT 10/19/2017 5:32 AM CDT Elver Askew MD LAB - BLOOD BAN K ORDERABLES Performing Organization Address [facility] Co de Phone Number [facility] [address] [place] [address] * PREPARE FFP UNIT(S), 2 Units (10/19/2017 5:32 AM CDT) Unit Description N/A [facility] Blood Bank BLOOD SPECIMEN / Unknown 10/19/2017 5:32 AM CDT 10/19/2017 5:32 AM CDT Elver Askew MD LAB - BLOOD BAN K ORDERABLES Performing Organization Address [facility] Co de Phone Number [facility] [address] [place] [address] * PATHOLOGY PERIPHERAL SMEAR REVIEW (10/19/2017 5:28 AM CDT) Pathology Diff Review DIFFERENTIAL REVIEW - CONFIRMED DIFFERENTIAL REVIEW - CONFIRMED 10/19/2017 1:39 PM CDT [facility] Comment: Mrs. Rosa Li is a 56 year old woman with history of SALGADO cirrhosis and ascites admitted for acute respiratory failure. Review of the smear shows normocytic normochromic anemia with mild anisocytosis. No significant circulating schistocytes are seen. There is mild leukocytosis predominantly neutrophils. Significant thrombocytopenia is seen. No circulating blasts are seen. RonMD Dr. Nic Luna has independtly reviewed this case. Blood BLOOD SPECIMEN / Unknown Venipuncture / Unknown 10/19/2017 5:28 AM CDT 10/19/2017 5:37 AM CDT Elver Askew MD LAB - PATHOLOGY /CYTOLOGY ORDERABLES [address] [phone] * SHIELA DIRECT (10/19/2017 5:28 AM CDT) Direct Shiela (VIANEY) NEG 10/19/2017 6:17 AM CDT [facility] Blood Bank BLOOD SPECIMEN / Unknown Venipuncture / Unknown 10/19/2017 5:28 AM CDT 10/19/2017 5:31 AM CDT Elver Askew MD LAB - BLOOD BAN K ORDERABLES [facility] [address] [place] [address] * RETIC COUNT (10/19/2017 4:54 AM CDT) Pathologist [facility] Reticulocyte % 1.1 0.4 - 2.5 % 10/19/2017 5:29 AM CDT [facility] Reticulocyte Absolute 0.02 0.02 - 0.13 10? 6 /uL 10/19/2017 5:29 AM CDT [facility] Blood BLOOD SPECIMEN / Unknown Venipuncture / Unknown 10/19/2017 4:54 AM CDT 10/19/2017 5:03 AM CDT Elver Askew MD LAB - HEMATOLOG Y ORDERABLES [address] [phone] * MARILEE BLOOD SCREEN W/REFLEX TITER (10/19/2017 4:25 AM CDT) Pathologist [facility] MARILEE Negative 10/20/2017 5:11 PM CDT [facility] ([facility]) Comment: ? Negative ?? <1:80 ? Borderline ??1:80 ? Positive ?? >1:80 Blood BLOOD SPECIMEN / Unknown Lab Venipuncture / Unknown 10/19/2017 4:25 AM CDT 10/19/2017 4:25 AM CDT Narrative [facility] ([facility]) - 10/20/2017 5:11 PM CDT Performed at: ??01 - [facility] [address] [place], [place] ??[id number] Rand Butter: Dimitrios Abad PhD, Phone: ??[phone] Oliver Biswas MD LAB - CHEMISTRY SHIRLEY GARCIA Performing Organization Address [facility] de Phone Number [facility] ([facility]) [address] [place] [address] * (ABNORMAL) TRANSFERRIN (10/19/2017 4:25 AM CDT) Pathologist [facility] Transferrin <19(L) 174 - 382 mg/dL 10/19/2017 5:37 AM CDT [facility] Transferrin Saturation % 100(H) 16 - 50 % 10/19/2017 5:37 AM CDT [facility] Blood BLOOD SPECIMEN / Unknown Venipuncture / Unknown 10/19/2017 4:25 AM CDT 10/19/2017 5:21 AM CDT Elver Askew MD LAB - CHEMISTRY ORDERABLES Performing Organization Address [facility]/ZIP Co de Phone Number [facility] [address] [place] [address] * (ABNORMAL) IRON BLOOD (10/19/2017 4:25 AM CDT) Iron 33(L) 40 - 150 mcg/dL 10/19/2017 5:36 AM CDT [facility] Blood BLOOD SPECIMEN / Unknown Venipuncture / Unknown 10/19/2017 4:25 AM CDT 10/19/2017 5:21 AM CDT Elver Askew MD LAB - CHEMISTRY ORDERABLES [address] [phone] * HAPTOGLOBIN (10/19/2017 4:25 AM CDT) Haptoglobin 86 14 - 258 mg/dL 10/19/2017 5:39 AM CDT [facility] Blood BLOOD SPECIMEN / Unknown Venipuncture / Unknown 10/19/2017 4:25 AM CDT 10/19/2017 5:21 AM CDT Elver Askew MD LAB - CHEMISTRY ORDERABLES Performing Organization Address [facility]/ZIP Co de Phone Number [address] [phone] * (ABNORMAL) FERRITIN (10/19/2017 4:25 AM CDT) Ferritin 1,954(H) 13 - 204 ng/mL 10/19/2017 6:27 AM CDT [facility] Comment: Result obtained by dilution. Blood BLOOD SPECIMEN / Unknown Venipuncture / Unknown 10/19/2017 4:25 AM CDT 10/19/2017 5:21 AM CDT Elver Askew MD LAB - CHEMISTRY ORDERABLES Performing Organization Address City/[facility]/ZIP Co de Phone Number [address] [phone] * FOLATE (10/19/2017 4:04 AM CDT) Folate 9.5 7.0 - 31.4 ng/mL 10/19/2017 6:07 AM CDT [facility] Blood BLOOD SPECIMEN / Unknown Venipuncture / Unknown 10/19/2017 4:04 AM CDT 10/19/2017 4:17 AM CDT Elver Askew MD LAB - CHEMISTRY ORDERABLES [address] [phone] * (ABNORMAL) VITAMIN B12 (10/19/2017 4:04 AM CDT) Pathologist [facility] Vitamin B12 986(H) 213 - 816 pg/mL 10/19/2017 6:07 AM CDT [facility] Blood BLOOD SPECIMEN / Unknown Venipuncture / Unknown 10/19/2017 4:04 AM CDT 10/19/2017 4:17 AM CDT Elver Askew MD LAB - CHEMISTRY ORDERABLES [address] [phone] * CRYOGLOBULIN QUALITATIVE (10/18/2017 2:34 PM CDT) Pathologist [facility] Cryoglobulin Qualitative Negative Negative 10/21/2017 12:43 PM CDT [facility] Blood BLOOD SPECIMEN / Unknown Lab Venipuncture / Unknown 10/18/2017 2:34 PM CDT 10/21/2017 12:36 PM CDT Elver Askew MD LAB - CHEMISTRY ORDERABLES [address] [phone] * (ABNORMAL) NEUTROPHIL CYTOPLASMIC ANTIBODY (10/18/2017 2:34 PM CDT) Pathologist [facility] Cytoplasmic (C-ANCA) <1:20 Neg:<1:20 titer 10/19/2017 2:13 PM CDT [facility] ([facility]) p-ANCA Titer <1:20 Neg:<1:20 titer 10/19/2017 2:13 PM CDT [facility] ([facility]) Comment: The presence of positive fluorescence exhibiting P-ANCA or C-ANCA patterns alone is not specific for the diagnosis of Nurys's Granulomatosis (WG) or microscopic polyangiitis. Decisions about treatment should not be based solely on ANCA IFA results. ??The International ANCA Group Consensus recommends follow up testing of positive sera with both TN-3 and MPO-ANCA enzyme immunoassays. As many as 5% serum samples are positive only by EIA. Ref. AM J Clin Pathol 1999;111:507-513. Atypical p-ANCA Titer 1:20(H) Neg:<1:20 titer 10/19/2017 2:13 PM CDT [facility] ([facility]) Comment: The atypical pANCA pattern has been observed in a significant percentage of patients with ulcerative colitis, primary sclerosing cholangitis and autoimmune hepatitis. Blood BLOOD SPECIMEN / Unknown Venipuncture / Unknown 10/18/2017 2:34 PM CDT 10/18/2017 2:52 PM CDT Narrative [facility] ([facility]) - 10/19/2017 2:13 PM CDT Performed at: ??01 - [facility] [address] [place], [place] ??[id number] Rand Butter: Dimitrios Abad PhD, Phone: ??[phone] Elver Askew MD LAB - CHEMISTRY ORDERABLES [facility] ([facility]) [address] [place] [address] * COMPLEMENT TOTAL (10/18/2017 2:34 PM CDT) [facility] Complement Total CH50 <13 >41 U/mL 10/19/2017 2:13 PM CDT [facility] ([facility]) Comment:Please note refere nce interval change Blood BLOOD SPECIMEN / Unknown Venipuncture / Unknown 10/18/2017 2:34 PM CDT 10/18/2017 2:52 PM CDT Narrative [facility] ([facility]) - 10/19/2017 2:13 PM CDT Performed at: ??01 - [facility] ??[id number] Rand Butter: Dimitrios Abad PhD, Phone: ??[phone] Elver Askew MD LAB - CHEMISTRY ORDERABLES Performing Organization Address [facility]/ZIP Co de Phone Number [facility] ([facility]) [address] [place] [address], [facility] * (ABNORMAL) KAPPA/LAMBDA LITE CHAIN FREE PANEL (10/18/2017 2:34 PM CDT) Free [place] Light Chains 51.7(H) 3.3 - 19.4 mg/L 10/19/2017 3:18 PM CDT [facility] ([facility]) Free Lambda Light Chains 21.8 5.7 - 26.3 mg/L 10/19/2017 3:18 PM CDT [facility] ([facility]) [place]/Lambda Ratio 2.37(H) 0.26 - 1.65 10/19/2017 3:18 PM CDT [facility] ([facility]) Blood BLOOD SPECIMEN / Unknown Venipuncture / Unknown 10/18/2017 2:34 PM CDT 10/18/2017 2:53 PM CDT Narrative [facility] ([facility]) - 10/19/2017 3:18 PM CDT Performed at: ??01 - [facility] ??[id number] Rand Butter: Dimitrios Abad PhD, Phone: ??[phone] Elver Askew MD LAB - CHEMISTRY ORDERABLES Performing Organization Address City/[facility]/ZIP Co de Phone Number [facility] ([facility]) [address] [place] [address], [facility] * HIV-1 HIV-2 ANTIGEN/ANTIBODY (10/18/2017 1:54 PM CDT) Pathologist [facility] HIV Antigen/Antibod y 1 & 2 Non-reacti ve Non-react diana 10/18/2017 3:08 PM CDT [facility] Comment: Neither HIV-1 p24 Antigen nor HIV-1/HIV-2 Antibodies are detected. ? Blood BLOOD SPECIMEN / Unknown Venipuncture / Unknown 10/18/2017 1:54 PM CDT 10/18/2017 2:01 PM CDT Elver Askew MD LAB - HEMATOLOG Y ORDERABLES Performing Organization Address [facility]/State/ZIP Co de Phone Number [address] [phone] * DNA (DS) ANTIBODY RFLEX IFA (10/18/2017 1:54 PM CDT) [facility] dsDNA Antibody 3 0 - 29 IU/mL 10/20/2017 11:47 AM CDT [facility] Comment: dsDNA Antibody Numeric Result Interpretation: ? 0 - 29 IU/mL: ??Negative ?30 - 75 IU/mL: ??Borderline ?>75 IU/mL: ??Positive ? Blood BLOOD SPECIMEN / Unknown Venipuncture / Unknown 10/18/2017 1:54 PM CDT 10/18/2017 2:01 PM CDT Elver Askew MD LAB - SEROLOGY ORDERABLES Performing Organization Address [facility]/State/ZIP Co de Phone Number [address] [phone] * IMMUNOFIXATION (10/18/2017 1:54 PM CDT) Pathologist [facility] Immunofixation Serum See Comment Normal Pattern 10/22/2017 12:25 PM CDT [facility] Comment: Serum immunofixation electrophoresis shows polyclonal IgG and IgA immunoglobulins. No monoclonal immunoglobulins detected. ??Non-secretory myeloma (NSM) cannot be excluded on the basis of this result. ??Measurements of serum free kappa and lambda immunoglobulin light chains can identify up to 70% of patients with NSM. Daniel Greenfield, PhD Blood BLOOD SPECIMEN / Unknown Venipuncture / Unknown 10/18/2017 1:54 PM CDT 10/18/2017 2:01 PM CDT Elver Askew MD LAB - CHEMISTRY ORDERABLES Performing Organization Address [facility] Co de Phone Number [address] [phone] * HAHN (SM) ANTIBODY KOLTON (10/18/2017 1:54 PM CDT) Pathologist [facility] Hahn Antibody 3.5 0.0 - 19.9 Units 10/20/2017 11:48 AM CDT [facility] Comment: KOLTON Antibody Numeric Result Interpretation: ?<20.0 Units: ??Negative ?20.0 - 39.0 Units: ??Weakly Positive ?>39.0 Units: ??Positive ? Blood BLOOD SPECIMEN / Unknown Venipuncture / Unknown 10/18/2017 1:54 PM CDT 10/18/2017 2:01 PM CDT Elver Askew MD LAB - CHEMISTRY ORDERABLES Performing Organization Address [facility] Co de Phone Number [address] [phone] * ASO TITER (10/18/2017 1:54 PM CDT) Pathologist [facility] ASO Titer 29.5 0.0 - 200.0 IU/mL 10/19/2017 8:47 AM CDT [facility] ([facility]) Blood BLOOD SPECIMEN / Unknown Venipuncture / Unknown 10/18/2017 1:54 PM CDT 10/18/2017 2:02 PM CDT Narrative [facility] ([facility]) - 10/19/2017 8:47 AM CDT Performed at: ??01 - [facility] [place] [address] [facility], [place], [place] ??[id number] Rand Butter: Dimitrios Abad PhD, Phone: ??[phone] Elver Askew MD LAB - CHEMISTRY ORDERABLES Performing Organization Address City/[facility] Co de Phone Number [facility] ([facility]) [address] [place] [address] * NEUTROPHIL CYTOPLASMIC ANTIBODY IGG (10/18/2017 1:54 PM CDT) Pathologist [facility] ANCA IgG <1:20 <1:20 10/19/2017 3:04 PM CDT [facility] [employer] ([facility]) Comment: The ANCA IFA is <1:20; therefore, no further testing will be performed. INTERPRETIVE INFORMATION: Anti-Neutrophil Cyto Ab, IgG Neutrophil Cytoplasmic Antibodies (C-ANCA = granular cytoplasmic staining, P-ANCA = perinuclear staining) are found in the serum of over 90 percent of patients with certain necrotizing systemic vasculitides, and usually in less than 5 percent of patients with collagen vascular disease or arthritis. Performed by [facility], [address] [place] [address] [email or web address], Poli Lamas MD, Lab. Director Blood BLOOD SPECIMEN / Unknown Venipuncture / Unknown 10/18/2017 1:54 PM CDT 10/18/2017 2:02 PM CDT Elver Askew MD LAB - SEROLOGY ORDERABLES Performing Organization Address [facility] Co de Phone Number [employer] [facility]) [address] [place] [address] * SS-B (SJOGRENS'S) ANTIBODY (10/18/2017 1:54 PM CDT) Pathologist [facility] SS-B LA Antibody 2.6 0.0 - 19.9 Units 10/20/2017 11:49 AM CDT [facility] Comment: KOLTON Antibody Numeric Result Interpretation: ?<20.0 Units: ??Negative ?20.0 - 39.0 Units: ??Weakly Positive ?>39.0 Units: ??Positive ? Blood BLOOD SPECIMEN / Unknown Venipuncture / Unknown 10/18/2017 1:54 PM CDT 10/18/2017 2:01 PM CDT Elver Askew MD LAB - CHEMISTRY ORDERABLES Performing Organization Address [facility] de Phone Number [address] [phone] * SS-A (SJOGREN'S) ANTIBODY (10/18/2017 1:54 PM CDT) SS-A (Ro) Antibody 1.7 0.0 - 19.9 Units 10/20/2017 11:49 AM CDT [facility] Comment: KOLTON Antibody Numeric Result Interpretation: ?<20.0 Units: ??Negative ?20.0 - 39.0 Units: ??Weakly Positive ?>39.0 Units: ??Positive ? Blood BLOOD SPECIMEN / Unknown Venipuncture / Unknown 10/18/2017 1:54 PM CDT 10/18/2017 2:01 PM CDT Elver Askew MD LAB - CHEMISTRY ORDERABLES Performing Organization Address [facility] de Phone Number [address] [phone] * MPO/TN 3 AUTOANTIBODIES PANEL (10/18/2017 1:54 PM CDT) Anti-myeloperox idase (MPO) Antibody <9.0 0.0 - 9.0 U/mL 10/20/2017 8:38 AM CDT [facility] ([facility]) Anti-proteinase 3 (TN-3) Abs <3.5 0.0 - 3.5 U/mL 10/20/2017 8:38 AM CDT [facility]) Blood BLOOD SPECIMEN / Unknown Venipuncture / Unknown 10/18/2017 1:54 PM CDT 10/18/2017 2:02 PM CDT Narrative [facility] ([facility]) - 10/20/2017 8:38 AM CDT Performed at: ??01 - [facility] [address] ??[id number] Rand Butter: Isra Milton MD, Phone: ??[phone] Elver Askew MD LAB - CHEMISTRY ORDERABLES [facility] [address] [place] [address] * (ABNORMAL) PROTEIN ELECTROPHORESIS BLOOD (10/18/2017 1:54 PM CDT) Interpretation Serum PE See Comment Normal Pattern 10/22/2017 12:22 PM CDT [facility] Comment: Serum protein electrophoresis shows characteristic bands corresponding to albumin, alpha and beta globulins and polyclonal immunoglobulins. There is a decrease in alpha and beta globulins along with a marked decrease in polyclonal immunoglobulins. No monoclonal immunoglobulins detected. ??Non-secretory myeloma (NSM) and light chain only myeloma cannot be excluded on the basis of this result. ??Recommend serum free light chain measurements for complete evaluation of multiple myeloma. ??Measurement of serum free kappa and lambda immunoglobulin light chains can identify all patients with light chain only myeloma and up to 70% of patients with NSM. Daniel Greenfield, PhD Protein Total 4.4(L) 6.0 - 8.3 g/dL 10/22/2017 12:22 PM CDT [facility] Albumin 3.9 3.3 - 5.6 g/dL 10/22/2017 12:22 PM CDT [facility] Alpha-1 Globulins 0.1 0.1 - 0.3 g/dL 10/22/2017 12:22 PM CDT [facility] Alpha-2 Globulins 0.2(L) 0.5 - 1.0 g/dL 10/22/2017 12:22 PM CDT [facility] Beta Globulins 0.1(L) 0.6 - 1.1 g/dL 10/22/2017 12:22 PM CDT [facility] Gamma Globulins 0.1(L) 0.6 - 1.6 g/dL 10/22/2017 12:22 PM CDT [facility] Blood BLOOD SPECIMEN / Unknown Venipuncture / Unknown 10/18/2017 1:54 PM CDT 10/18/2017 2:01 PM CDT Elver Askew MD LAB - CHEMISTRY ORDERABLES Performing Organization Address City/[facility] Co de Phone Number [address] [phone] * HEPATITIS SCREEN ACUTE (10/18/2017 1:54 PM CDT) Hepatitis A Virus Antibody IgM Non-react diana Non-reac tive 10/18/2017 3:08 PM CDT [facility] Hepatitis B Virus Surface Antigen Non-react diana Non-reac tive 10/18/2017 3:08 PM CDT [facility] Hepatitis B Core Virus Antibody IgM Non-react diana Non-reac tive 10/18/2017 3:08 PM CDT [facility] Hepatitis C Antibody Non-react diana Non-reac tive 10/18/2017 3:08 PM T [facility] Comment: Hepatitis C Antibody screen indicates [...] Elver Askew MD LAB - CHEMISTRY ORDERABLES [facility] [address] [phone] * GLOMERULAR BASE MEMBRANE ANTIBODY IGG (10/18/2017 1:53 PM CDT) Pathologist [facility] Glomerular Basement Membrane Antibody Quantitative 2 0 - 20 units 10/21/2017 10:18 AM CDT [facility] ([facility]) Comment: ? Negative ? 0 - 20 ? Weak Positive ? 21 - 30 ? Moderate to Strong Positive ?? >30 Blood BLOOD SPECIMEN / Unknown Venipuncture / Unknown 10/18/2017 1:53 PM CDT 10/18/2017 2:01 PM CDT Narrative [facility] ([facility]) - 10/21/2017 10:18 AM CDT Performed at: ??01 - [facility] [address] ??[id number] Rand Butter: Isra Milton MD, Phone: ??[phone] Elver Askew MD LAB - CHEMISTRY ORDERABLES Performing Organization Address [facility] de Phone Number [facility] ([facility]) [address] [phone] * (ABNORMAL) HYDROXYBUTYRATE BETA (10/18/2017 11:40 AM CDT) Pathologist [facility] Beta-Hydroxybu tyrate 0.42(H) 0.02 - 0.27 mmol/L 10/18/2017 12:25 PM CDT [facility] Blood BLOOD SPECIMEN / Unknown Venipuncture / Unknown 10/18/2017 11:40 AM CDT 10/18/2017 11:47 AM CDT Reuben Tellez MD LAB - CHEMISTRY SHIRLEY GARCIA Performing Organization Address [facility]/ZIP Co de Phone Number [address] [phone] * HEPARIN PLATELET INDUCED ANTIBODY (10/18/2017 11:40 AM CDT) Pathologist [facility] Interpretation Heparin Platelet Antibody Negative Negative 10/19/2017 12:49 PM [facility] Comment: Heparin induced thrombocytopenia (HIT) is unlikely in the presence of a negative HIT antibody test result by BELEN and low pretest probability for type II HIT (scoring system of [place]). It is suggested to verify positive HIT BELEN antibody test results by HIT Antibody Serotonin Release Assay. HIT BELEN Patient OD 0.103 <0.400 OD 10/19/2017 12:49 PM [facility] Blood BLOOD SPECIMEN / Unknown Venipuncture / Unknown 10/18/2017 11:40 AM CDT 10/18/2017 11:47 AM CDT Reuben Tellez MD LAB - CHEMISTRY SHIRLEY [facility] Organization Address [facility]/ZIP Co de Phone Number [address] [phone] * (ABNORMAL) BASIC METABOLIC PANEL (CALCIUM TOTAL) (10/18/2017 11:40 AM CDT) Only the most recent of7 resultswithin the time period is included. Pathologist [facility] BUN 23 7 - 26 mg/dL 10/18/2017 12:25 PM [facility] Creatinine 2.3(H) 0.6 - 1.2 mg/dL 10/18/2017 12:25 PM [facility] Sodium 124(L) 136 - 145 mmol/L 10/18/2017 12:25 PM [facility] Potassium 3.5 3.5 - 4.5 mmol/L 10/18/2017 12:25 PM [facility] Chloride 94(L) 98 - 107 mmol/L 10/18/2017 12:25 PM [facility] CO2 15(L) 22 - 29 mmol/L 10/18/2017 12:25 PM [facility] Glucose 184(H) 70 - 115 mg/dL 10/18/2017 12:25 PM [facility] Calcium 9.7 8.4 - 10.2 mg/dL 10/18/2017 12:25 PM [facility] Anion Gap 19(H) 8 - 18 10/18/2017 12:25 PM [facility] BUN/Creatinine Ratio 10 7 - 23 10/18/2017 12:25 PM [facility] Osmolality Calculated 266(L) 270 - 300 mOsm/kg 10/18/2017 12:25 PM [facility] eGFR 22(L) >60 mL/min/1.7 3 m2 10/18/2017 12:25 PM T [facility] Blood BLOOD SPECIMEN / Unknown Venipuncture / Unknown 10/18/2017 11:40 AM CDT 10/18/2017 11:47 AM CDT Elver Askew MD LAB - CHEMISTRY ORDERABLES [address] [phone] * LACTIC ACID BLOOD (10/18/2017 11:40 AM CDT) Only the most recent of4 resultswithin the time period is included. Lactic Acid-Stat 1.8 0.5 - 2.2 mmol/L 10/18/2017 12:06 PM T [facility] Blood BLOOD SPECIMEN / Unknown Venipuncture / Unknown 10/18/2017 11:40 AM CDT 10/18/2017 11:47 AM CDT Elver Askew MD LAB - CHEMISTRY ORDERABLES [address] [phone] * (ABNORMAL) GGT (10/17/2017 4:54 PM CDT) GGT 387(H) 9 - 64 Units/L 10/17/2017 5:19 PM CDT [facility] Blood BLOOD SPECIMEN / Unknown Venipuncture / Unknown 10/17/2017 4:54 PM CDT 10/17/2017 4:58 PM CDT Elver Askew MD LAB - CHEMISTRY ORDERABLES Performing Organization Address City/[facility]/ZIP Co de Phone Number [address] [phone] * VANCOMYCIN LEVEL RANDOM (10/17/2017 4:54 PM CDT) Only the most recent of4 resultswithin the time period is included. [facility] Vancomycin Random 34.2 Therapeutic Ranges not established for random specimens mcg/mL 10/17/2017 5:15 PM CDT [facility] Blood BLOOD SPECIMEN / Unknown Venipuncture / Unknown 10/17/2017 4:54 PM CDT 10/17/2017 4:58 PM CDT Elver Askew MD LAB - CHEMISTRY ORDERABLES Performing Organization Address [facility] Co de Phone Number [address] [phone] * EKG 12-LEAD (10/16/2017 5:57 PM CDT) Only the most recent of4 resultswithin the time period is included. [facility] Ventricular Rate 75 BPM [facility] Atrial Rate 75 BPM [facility] P-R Interval 104 ms [facility] QRS Duration ms 36 ms [facility] Q-T Interval ms 368 ms [facility] QTC Calculation (Bezet) 410 ms [facility] Calculated P [place] 70 degrees [facility] Calculated R [place] 0 degrees [facility] Calculated T [place] -35 degrees [facility] Interpretation EKG Sinus rhythm with short TN with Fusion complexes~ST & T wave abnormality, consider lateral ischemia~Non- specific intra-ventric ular conduction delay~Indeter minate axis~Pulmonar y disease pattern~Abnor mal ECG~When compared with ECG of 16-OCT-2017 10:33,~Low voltage no longer present~Confi rmed by Itz AGUILAR, CHAY ([id number]), film editor supervisor Sarkis Odonnell ([id number]) on 10/22/2017 12:08:27 PM [facility] 10/16/2017 5:57 PM CDT 10/22/2017 12:08 PM CDT Mireya Palma DO ECG ORDERABLES Performing Organization Address [facility] Co de Phone Number [facility] * CULTURE SPUTUM+GRAM STAIN (10/16/2017 6:17 AM CDT) Only the most recent of2 resultswithin the time period is included. Culture Moderate normal oropharyngeal annia DEJUAN 10/18/2017 8:04 AM CDT [facility] Gram Stain <10 per low power field Squamous epithelial cells 10/18/2017 8:04 AM CDT [facility] Gram Stain >= 25 per low power field Polymorphonuclear cells 10/18/2017 8:04 AM CDT [facility] Gram Stain Moderate Yeast budding with pseudohyphae 10/18/2017 8:04 AM CDT [facility] Gram Stain Rare Gram-positive cocci 10/18/2017 8:04 AM CDT [facility] Microbiology SPUTUM / Unknown Collection / Unknown 10/16/2017 6:17 AM CDT 10/16/2017 6:19 AM CDT Elver Askew MD LAB - MICROBIOL OGY ORDERABLES Performing Organization Address [facility] Co de Phone Number [facility] [address] [place] [address], [facility] [phone] * XR CHEST 1VW (10/15/2017 11:20 PM CDT) Anatomical Region Laterality Modality Chest Radiographic Indira ging 10/16/2017 8:06 AM CDT Impressions 10/16/2017 10:20 AM CDT FINDINGS/IMPRESSION: An endotracheal tube terminates in the midthoracic trachea. A nasogastric/orogastric tube loops and terminates in the proximal stomach. A right upper extremity peripherally inserted catheter tip overlies the superior cavoatrial junction. Diffuse bilateral interstitial and airspace opacities, right greater than left, may represent pneumonia and/or pulmonary edema. Small effusions may contribute. No pneumothorax is identified. The cardiomediastinal silhouette is partially obscured. Dictated by Dr. Eli Zuniga MD (Resident). This report was approved ??by Kody Zuniga M.D. ?? on 10/16/2017 9:45 AM . I, Dr. Dr. ASHLYN WHALEY MD have personally reviewed and interpreted this examination/study. This report was electronically signed by Dr. ASHLYN WHALEY MD ??on 10/16/2017 10:20 AM . Narrative 10/16/2017 10:20 AM CDT EXAMINATION: XR CHEST 1VW HISTORY: A41.9: Septic shock R65.21: Septic shock COMPARISON: Comparison is made with a study from 10/15/2017 at 3:32 AM. Procedure Note Ashlyn Whaley MD - 10/16/2017 EXAMINATION: XR CHEST 1VW HISTORY: A41.9: Septic shock R65.21: Septic shock COMPARISON: Comparison is made with a study from 10/15/2017 at 3:32 AM. FINDINGS/IMPRESSION: An endotracheal tube terminates in the midthoracic trachea. A nasogastric/orogastric tube loops and terminates in the proximalstomach. A right upper extremity peripherally inserted catheter tip overlies the superior cavoatrial junction. Diffuse bilateral interstitial and airspace opacities, right greaterthan left, may represent pneumonia and/or pulmonary edema. Small effusionsmay contribute. No pneumothorax is identified. The cardiomediastinal silhouette is partially obscured. Dictated by Dr. Eli Zuniga MD (Resident). This report was approved by Kody Zuniga M.D. on 10/16/2017 9:45AM . Adriel, Dr. Dr. ASHLYN WHALEY MD have personally reviewed and interpretedthis examination/study. This report was electronically signed by Dr. ASHLYN WHALEY MD on10/16/2017 10:20 AM . Elver Askew MD DIAGNOSTIC IMAG ING ORDERABLES * XR ABDOMEN KUB PORTABLE (10/15/2017 8:59 PM CDT) Anatomical Region Laterality Modality Radiographic Indira ging 10/16/2017 7:55 AM CDT Impressions 10/16/2017 10:20 AM CDT FINDINGS/IMPRESSION: A nasogastric/orogastric tube terminates in the body of the stomach. Surgical clips are seen projecting over the upper abdomen. There is relative paucity of bowel gas. The visible bowel gas pattern is nonobstructive. Hazy opacification of the abdomen corresponds to patient's known ascites. The supine radiographs are technically suboptimal for evaluation of pneumoperitoneum. Patchy pulmonary opacities are noted, right greater than left. Multilevel degenerative changes are present. Report dictated by Eli Zuniga MD (director of radiology). This report was approved ??by Kody Zuniga M.D. ?? on 10/16/2017 9:[address] ASHLYN Morel MD have personally reviewed and interpreted this examination/study. This report was electronically signed by Dr. ASHLYN WHALEY MD ??on 10/16/2017 10:20 AM . Narrative 10/16/2017 10:20 AM CDT EXAMINATION: XR ABDOMEN KUB PORTABLE HISTORY: R10.9: Abdominal pain, unspecified abdominal location COMPARISON: ??No prior radiograph is available for comparison at the time of this dictation. Procedure Note Ashlyn Whaley MD - 10/16/2017 EXAMINATION: XR ABDOMEN KUB PORTABLE HISTORY: R10.9: Abdominal pain, unspecified abdominal location COMPARISON: No prior radiograph is available for comparison at the time of this dictation. FINDINGS/IMPRESSION: A nasogastric/orogastric tube terminates in the body of the stomach. Surgical clips are seen projecting over the upper abdomen. There is relative paucity of bowel gas. The visible bowel gas pattern is nonobstructive. Hazy opacification of the abdomen corresponds topatient's known ascites. The supine radiographs are technically suboptimal for evaluation of pneumoperitoneum. Patchy pulmonary opacities are noted, right greater than left. Multilevel degenerative changes are present. Report dictated by Eli Zuniga MD (director of radiology). This report was approved by Kody Zuniga M.D. on 10/16/2017 9:41AM . Dr. Dr. ASHLYN Morel MD have personally reviewed and interpretedthis examination/study. This report was electronically signed by Dr. ASHLYN WHALEY MD on10/16/2017 10:20 AM . Jean Real MD DIAGNOSTIC IMAGING O RDERABLES * ECHO W DOPPLER AND COLOR FLOW (10/15/2017 3:59 PM CDT) Anatomical Region Laterality Modality Color Flow Doppl er 10/15/2017 7:43 AM CDT Narrative Procedure Note Caroline Horta MD - 10/15/2017 Elver Askew MD ECHOCARDIOGRAPH Y RADIANT * SVO2 FOR RECALIBRATION (10/15/2017 12:12 PM CDT) SVO2 for Recalibration 66.2 66.0 - 77.0 % 10/15/2017 12:21 PM CDT [facility] Blood BLOOD SPECIMEN / Unknown Venipuncture / Unknown 10/15/2017 12:12 PM CDT 10/15/2017 12:18 PM CDT Elver Askew MD LAB - CHEMISTRY ORDERABLES [address] [phone] * CT ANGIO CHEST PULM EMBOLISM (10/15/2017 11:44 AM CDT) Anatomical Region Laterality Modality Chest Computed Tomogra phy 10/15/2017 12:0 1 PM CDT Impressions 10/15/2017 12:38 PM CDT IMPRESSION: 1. No evidence of pulmonary embolism, however, evaluation of the subsegmental branches is limited due to poor contrast opacification. 2. Moderate right and small left pleural effusions with associated atelectasis. 3. Patchy groundglass opacities and consolidations throughout the lungs, right greater than left representing pulmonary edema or multifocal pneumonia in the acute setting. 4. Diffuse hepatic steatosis. 5. Moderate volume upper abdominal ascites. 6. Hyperenhancing lesion measuring 1 cm in hepatic segment 8 likely representing a hemangioma. Dictated by Helen Rich MD (director of radiology). I, Dr. EARLENE JORDAN M.D. have personally reviewed and interpreted this examination/study. This report was electronically signed by EARLENE JORDAN M.D. ??on 10/15/2017 12:38 PM . Narrative 10/15/2017 12:38 PM CDT EXAMINATION: Computed tomography (CT) of the chest with contrast HISTORY: 56 years old female with acute respiratory failure. TECHNIQUE: CT of the chest was performed following the uneventful administration of 100 mL of Isovue 370 intravenous contrast according to a pulmonary embolism protocol. FINDINGS: No prior study is available for comparison at the time of this dictation. There are no filling defects in the pulmonary arteries to suggest pulmonary embolism, however, the subsegmental branches are poorly opacified limiting their evaluation. There is a left-sided three-vessel aortic arch. The aorta and main pulmonary artery are normal in course and caliber. A right arm PICC ends in the superior vena cava. There is moderate right and piljb-gk-ozxudffh left pleural effusion with bilateral lower lobe atelectasis. Patchy groundglass opacities and consolidations throughout the lungs with right lung predominant may represent pulmonary edema and/or multifocal infection. There is no evidence of pneumothorax. The trachea is patent and midline. An endotracheal tube terminates in the midthoracic trachea. There is right heart enlargement with reflux of contrast into the intrahepatic IVC and the hepatic veins. No pericardial effusion is present. No mediastinal, hilar, supraclavicular, or axillary lymphadenopathy is seen. There is diffuse hepatic steatosis. Hyperenhancing lesion in hepatic segment 8 measuring 1 cm (series 11 image 247) likely represents a hemangioma as it demonstrates progressive nodular filling on the prior liver protocol CT of 07/09/2017. There is nodular thickening of bilateral adrenal glands. There is moderate volume abdominal ascites. Calcified granulomas are present in the spleen. The visible kidneys appear normal. Generalized anasarca is observed. Bone windows demonstrate no suspicious lytic or blastic lesions. The visible osseous structures are intact. Procedure Note Earlene Jordan MD - 10/15/2017 EXAMINATION: Computed tomography (CT) of the chest with contrast HISTORY: 56 years old female with acute respiratory failure. TECHNIQUE: CT of the chest was performed following the uneventful administration of 100 mL of Isovue 370 intravenous contrast according toa pulmonary embolism protocol. FINDINGS: No prior study is available for comparison at the time of this dictation. There are no filling defects in the pulmonary arteries to suggest pulmonary embolism, however, the subsegmental branches are poorly opacified limiting their evaluation. There is a left-sided three-vessel aortic arch. The aorta and main pulmonary artery are normal in courseand caliber. A right arm PICC ends in the superior vena cava. There is moderate right and snaaf-yv-exeyzish left pleural effusion with bilateral lower lobe atelectasis. Patchy groundglass opacities and consolidations throughout the lungs with right lung predominant may represent pulmonary edema and/or multifocal infection. There is no evidence of pneumothorax. The trachea is patent and midline. An endotracheal tube terminates in the midthoracic trachea. There is right heart enlargement with reflux of contrast into the intrahepatic IVC and the hepatic veins. No pericardial effusion is present. No mediastinal, hilar, supraclavicular, or axillary lymphadenopathy is seen. There is diffuse hepatic steatosis. Hyperenhancing lesion in hepatic segment 8 measuring 1 cm (series 11 image 247) likely represents a hemangioma as it demonstrates progressive nodular filling on the prior liver protocol CT of 07/09/2017. There is nodular thickening of bilateral adrenal glands. There is moderate volume abdominal ascites. Calcified granulomas are present in the spleen. The visible kidneys appear normal. Generalized anasarca is observed. Bone windows demonstrate no suspicious lytic or blastic lesions. The visible osseous structures are intact. IMPRESSION: 1. No evidence of pulmonary embolism, however, evaluation of the subsegmental branches is limited due to poor contrast opacification. 2. Moderate right and small left pleural effusions with associated atelectasis. 3. Patchy groundglass opacities and consolidations throughout the lungs, right greater than left representing pulmonary edema or multifocal pneumonia in the acute setting. 4. Diffuse hepatic steatosis. 5. Moderate volume upper abdominal ascites. 6. Hyperenhancing lesion measuring 1 cm in hepatic segment 8 likely representing a hemangioma. Dictated by Helen Rich MD (director of radiology). I, Dr. EARLENE JORDAN M.D. have personally reviewed and interpreted this examination/study. This report was electronically signed by EARLENE JORDAN M.D. on 10/15/2017 12:38 PM . Jaiden Cleveland MD CT ORDERABLES * CULTURE URINE (10/15/2017 9:31 AM CDT) Culture Urine No growth (<1,000 CFU/mL) DEJUAN 10/16/2017 2:32 PM CDT [facility] Urine URINE SPECIMEN OBTAINED BY CLEAN CATCH PROCEDURE / Unknown Collection / Unknown 10/15/2017 9:31 AM CDT 10/15/2017 9:34 AM CDT Elver sAkew MD LAB - MICROBIOL OGY ORDERABLES [facility] [address] [place], [address] [phone] * (ABNORMAL) URINALYSIS REFLEX TO MICROSCOPIC NO CULTURE (10/15/2017 4:39 AM CDT) Color UA [place](A) Straw, Yellow, Colorless, Light Yellow 10/15/2017 5:04 AM [facility] Clarity UA Cloudy(A) Clear 10/15/2017 5:04 AM [facility] Specific [place] UA 1.031(H) 1.001 - 1.030 10/15/2017 5:04 AM [facility] pH UA 5.5 5.0 - 8.0 10/15/2017 5:04 AM [facility] Protein UA 100(A) <=20 mg/dL 10/15/2017 5:04 AM [facility] Glucose UA 30(A) Negative mg/dL 10/15/2017 5:04 AM [facility] Ketone UA Negative Negative mg/dL 10/15/2017 5:04 AM [facility] Bilirubin UA Negative Negative mg/dL 10/15/2017 5:04 AM [facility] Blood UA Moderate(A) Negative 10/15/2017 5:04 AM [facility] Nitrite UA Negative Negative 10/15/2017 5:04 AM [facility] Leukocyte Esterase Large(A) Negative 10/15/2017 5:04 AM [facility] Urobilinogen UA <2.0 <2.0 mg/dL 8 5:04 AM T [facility] RBC UA 48(H) 0 - 8 /HPF 10/15/2017 5:04 AM T [facility] WBC UA >100(H) 0 - 2 /HPF 10/15/2017 5:04 AM T [facility] Squamous Epithelial Cells UA 5(H) 0 - 1 /HPF 10/15/2017 5:04 AM T [facility] Mucus UA Many(A) None /LPF 10/15/2017 5:04 AM T [facility] Hyaline Casts UA 33(H) 0 - 2 /LPF 10/16/19 18 5:04 AM T [facility] Urine URINE SPECIMEN OBTAINED BY CLEAN CATCH PROCEDURE / Unknown Collection / Unknown 10/15/2017 4:39 AM CDT 10/15/2017 4:42 AM CDT Elver Askew MD LAB - URINALYSI S ORDERABLES Performing Organization Address City/[facility]/ZIP Co de Phone Number [address] [phone] * SODIUM URINE RANDOM (10/15/2017 4:39 AM CDT) Only the most recent of2 resultswithin the time period is included. Sodium Urine <20 Not Established mmol/L 10/15/2017 5:01 AM T [facility] Urine URINE SPECIMEN OBTAINED BY CLEAN CATCH PROCEDURE / Unknown Collection / Unknown 10/15/2017 4:39 AM CDT 10/15/2017 4:42 AM CDT Elver Askew MD LAB - URINE NINI GAL ORDERABLES [address] [phone] * UREA NITROGEN URINE RANDOM (10/15/2017 4:39 AM CDT) Urea Nitrogen Random Urine 111 Not Established mg/dL 10/15/2017 5:01 AM CDT [facility] Urine URINE SPECIMEN OBTAINED BY CLEAN CATCH PROCEDURE / Unknown Collection / Unknown 10/15/2017 4:39 AM CDT 10/15/2017 4:42 AM CDT Elver Askew MD LAB - URINE NINI GAL ORDERABLES Performing Organization Address [facility]/ZIP Co de Phone Number [address] [phone] * OSMOLALITY URINE (10/15/2017 4:39 AM CDT) Only the most recent of2 resultswithin the time period is included. Osmolality Urine 288 mOsm/kg 10/15/2017 5:06 AM CDT [facility] Urine URINE SPECIMEN OBTAINED BY CLEAN CATCH PROCEDURE / Unknown Collection / Unknown 10/15/2017 4:39 AM CDT 10/15/2017 4:42 AM CDT Elver Askew MD LAB - URINE NINI GAL ORDERABLES Performing Organization Address [facility] Co de Phone Number [address] [phone] * CREATININE URINE RANDOM (10/15/2017 4:39 AM CDT) Creatinine Urine 90 Not Established mg/dL 10/15/2017 5:03 AM T [facility] Comment: Result obtained by dilution. Urine URINE SPECIMEN OBTAINED BY CLEAN CATCH PROCEDURE / Unknown Collection / Unknown 10/15/2017 4:39 AM CDT 10/15/2017 4:42 AM CDT Elver Askew MD LAB - URINE NINI AGL ORDERABLES Performing Organization Address City/[facility]/ZIP Co de Phone Number [address] [phone] * HEMOGLOBIN A1C (10/15/2017 4:22 AM CDT) Hemoglobin A1c 5.5 4.4 - 6.3 % 10/15/2017 1:32 PM T [facility] Estimated Average Glucose 111 mg/dL 10/15/2017 1:32 PM [facility] Comment: HbA1c Interpretation: Treatment target values recommended by ADA and other clinical organizations should be used to evaluate metabolic control in patients. Treatment Target Values: Normal : < 5.7% Pre-diabetes: 5.7-6.4% Diabetes: Equal to or greater than 6.5% Reference: [place] [employer] Standards of Care in Diabetes -2014 In patients 70 years and older consider HbA1c target range of 7.0-7.5% Reference: ??Diabetes Mellitus in Older People: Position Statement on behalf of the International Association of Gerontology and Geriatrics (IAGG), the Diabetes [employer] for Older [employer] (EDWPOP), and the International Task Force of Experts in Diabetes. ??Rigo Aguilar, et al. J [employer]. 2012 Test results diagnostic of diabetes should be repeated for confirmation. The Tosoh G8 assay for the measurement of HbA1c is a National Glycohemoglobin Standardization Program (NGSP)certified method. Results for patients with HbE disease should be interpreted with caution as this hemoglobinopathy has been shown to interfere with the Tosoh G8 assay. Whole Blood BLOOD SPECIMEN WITH EDTA / Unknown Venipuncture / Unknown 10/15/2017 4:22 AM CDT 10/15/2017 4:28 AM CDT Elver Askew MD LAB - CHEMISTRY ORDERABLES [address] [phone] * TRIGLYCERIDES BODY FLUID ([facility] ONLY) (10/15/2017 4:05 AM CDT) Triglycerides Fluid 21 Not Established For Fluids mg/dL 10/15/2017 4:39 AM T [facility] Comment: The reference range and other method performance specifications have not been established for this fluid. The test result must be integrated into the clinical context for interpretation. Fluid PLEURAL FLUID / Unknown Collection / Unknown 10/15/2017 4:05 AM CDT 10/15/2017 4:06 AM CDT Crow Hatfield DO LAB - BODY FLUID O RADHAERARIANA Performing Organization Address [facility] Co de Phone Number [address] [phone] * PROTEIN BODY FLUID ([facility] ONLY) (10/15/2017 4:05 AM CDT) Protein Fluid 1.5 Not Established For Fluids g/dL 10/15/2017 4:39 AM CDT [facility] Comment: The reference range and other method performance specifications have not been established for this fluid. The test result must be integrated into the clinical context for interpretation. Fluid PLEURAL FLUID / Unknown Collection / Unknown 10/15/2017 4:05 AM CDT 10/15/2017 4:06 AM CDT Crow Hatfield DO LAB - BODY FLUID O CIRILO Performing Organization Address [facility] Co de Phone Number [address] [phone] * AMYLASE BODY FLUID ([facility] ONLY) (10/15/2017 4:05 AM CDT) Amylase Fluid 17 Not Established For Fluids Units/L 10/15/2017 4:39 AM CDT [facility] Comment: The reference range and other method performance specifications have not been established for this fluid. The test result must be integrated into the clinical context for interpretation. Fluid PLEURAL FLUID / Unknown Collection / Unknown 10/15/2017 4:05 AM CDT 10/15/2017 4:06 AM CDT Crow Hatfield DO LAB - BODY FLUID O CIRILO Performing Organization Address [facility] Co de Phone Number [address] [phone] * CYTOLOGY NON-MILK RECEIVER PANEL (STL) (10/15/2017 4:04 AM CDT) Case Report Medical Cytology Report ? Case: [id number] ? Authorizing Provider: ??Crow Hatfield DO ?Collected: ? 10/15/2017 04:04 AM ? Ordering Location: ? [facility] ICU ?Received: ?10/15/2017 04:26 AM ? Pathologist: ? Jerry Lucero MD ? Specimen: ?Pleural Fluid, left ? 10/15/2017 4:34 PM CDT [facility] Specimen Adequacy Adequate cellularity for evaluation. 10/15/2017 4:34 PM CDT [facility] Final Diagnosis Pleural fluid, left - Negative for malignancy - Acute inflammation 10/15/2017 4:34 PM CDT [facility] Clinical History Pleural effusion. 10/15/2017 4:34 PM CDT [facility] Gross Description 1 cs/pap slide and 1 cs/diff-quik slide from 40 cc clear yellow fluid. 10/15/2017 4:34 PM CDT [facility] Microscopic Description Review of 1 pap and 1 diff quik stained cytospin slides reveals benign appearing mesothelial cells and inflammation. 10/15/2017 4:34 PM T [facility] Disclaimer The performance characteristics of all immunohistochemical and indirect immunofluorescence stains (if any) cited in this report were determined by the Histopathology [facility] of [facility]. Some of these tests rely on the use of analyte-specific reagents and are subject to specific labeling requirements by the US Food and Drug Administration. Such tests were developed by the [facility]ology [facility] of [facility] and have not been cleared or approved by the FDA. The FDA has determined that such clearance and approval is not necessary. These tests are used for clinical purposes and should not be regarded as investigational or for research. This laboratory is certified under the Clinical Laboratory Improvement Amendments (CLIA) as qualified to perform high complexity clinical laboratory testing. This case has been personally reviewed and interpreted by the attending (teaching) pathologist. 10/15/2017 4:34 PM CDT [facility] Embedded Images 10/15/2017 4:34 PM CDT [facility] Pathology/Cytolo gy PLEURAL FLUID / Unknown Collection / Unknown 10/15/2017 4:04 AM CDT 10/15/2017 4:26 AM CDT Crow Hatfield DO LAB - PATHOLOGY/CY TOLOGY ORDERABLES Performing Organization Address [facility]/ZIP Co de Phone Number [facility] [address] [place] [address], [facility] [phone] * PH BODY FLUID ([facility] ONLY) (10/15/2017 4:03 AM CDT) pH Fluid 7.400 Not Established For Fluids 10/15/2017 4:07 AM CDT [facility] Comment: The reference range and other method performance specifications have not been established for this fluid. The test result must be integrated into the clinical context for interpretation. Fluid PLEURAL FLUID / Unknown Collection / Unknown 10/15/2017 4:03 AM CDT 10/15/2017 4:03 AM CDT Crow Hatfield DO LAB - BODY FLUID O RDERABLES Performing Organization Address City/[facility]/ZIP Co de Phone Number [facility] [address] [place] [address], [facility] [phone] * ALBUMIN BODY FLUID ([facility] ONLY) (10/15/2017 3:10 AM CDT) Only the most recent of2 resultswithin the time period is included. Albumin Fluid 1.2 Not Established For Fluids g/dL 10/15/2017 4:39 AM CDT [facility] Comment: The reference range and other method performance specifications have not been established for this fluid. The test result must be integrated into the clinical context for interpretation. Fluid PLEURAL FLUID / Unknown Collection / Unknown 10/15/2017 3:10 AM CDT 10/15/2017 4:03 AM CDT Elver Askew MD LAB - BODY FLUI D ORDERABLES Performing Organization Address [facility] Co de Phone Number [address] [phone] * LD BODY FLUID ([facility] ONLY) (10/15/2017 3:10 AM CDT) LD Fluid 79 Not Established For Fluids Units/L 10/15/2017 4:51 AM CDT [facility] Comment: The reference range and other method performance specifications have not been established for this fluid. The test result must be integrated into the clinical context for interpretation. Fluid PLEURAL FLUID / Unknown Collection / Unknown 10/15/2017 3:10 AM CDT 10/15/2017 4:03 AM CDT Elver Askew MD LAB - BODY FLUI D ORDERABLES Performing Organization Address City/[facility]/ZIP Co de Phone Number [address] [phone] * GLUCOSE BODY FLUID ([facility] ONLY) (10/15/2017 3:10 AM CDT) Glucose Fluid 197 Not Established For Fluids mg/dL 10/15/2017 4:51 AM CDT [facility] Comment: The reference range and other method performance specifications have not been established for this fluid. The test result must be integrated into the clinical context for interpretation. Fluid PLEURAL FLUID / Unknown Collection / Unknown 10/15/2017 3:10 AM CDT 10/15/2017 4:03 AM CDT Elver Askew MD LAB - BODY FLUI D ORDERABLES [facility] [address] [place] [address], [facility] [phone] * CULTURE BLOOD (10/14/2017 10:50 PM CDT) Only the most recent of2 resultswithin the time period is included. Culture No growth day 5 DEJUAN 10/20/2017 1:26 AM CDT [facility] Blood BLOOD SPECIMEN / Unknown Venipuncture / Unknown 10/14/2017 10:50 PM CDT 10/14/2017 10:55 PM CDT Elver Askew MD LAB - MICROBIOL OGY ORDERABLES Performing Organization Address City/[facility]/ZIP Co de Phone Number [facility] [address] [phone] * (ABNORMAL) BLOOD GASES ART COMPLETE [facility] OR (10/14/2017 10:39 PM CDT) pH Arterial 7.35 7.35 - 7.45 10/14/2017 10:48 PM CDT [facility] pCO2 Arterial 22(L) 35 - 45 mmHg 10/14/2017 10:48 PM T [facility] pO2 Arterial 58(L) 77 - 101 mmHg 10/14/2017 10:48 PM T [facility] HCO3 Arterial 11.9(L) 22.0 - 26.0 mmol/L 10/14/2017 10:48 PM [facility] TCO2 Arterial 12.6(L) 25.0 - 29.0 mmol/L 10/14/2017 10:48 PM [facility] Base Excess Arterial -11.9(L) -2.0 - 2.0 mmol/L 10/14/2017 10:48 PM T [facility] Hemoglobin Arterial 11.0(L) 12.0 - 15.5 g/dL 10/14/2017 10:48 PM [facility] Oxyhemoglobin Arterial 90.3(L) 95.0 - 100.0 % 10/14/2017 10:48 PM [facility] Carboxyhemoglobin 0.3 0.0 - 3.0 % 10/14/2017 10:48 PM [facility] Methemoglobin 0.5 0.0 - 2.0 % 10/14/2017 10:48 PM [facility] FI O2 Arterial 80.0 % 10/14/2017 10:48 PM [facility] Ionized Calcium Whole Blood 1.21 mmol/L 10/14/2017 10:48 PM [facility] Adjusted Ionized Calcium 1.18(L) 1.19 - 1.34 mmol/L 10/14/2017 10:48 PM [facility] Sodium Whole Blood 122(L) 135 - 145 mmol/L 10/14/2017 10:48 PM [facility] Potassium Whole Blood 3.4(L) 3.5 - 5.5 mmol/L 10/14/2017 10:48 PM [facility] Chloride Whole Blood 97(L) 101 - 111 mmol/L 10/14/2017 10:48 PM [facility] Glucose Whole Blood 206(H) 70 - 110 mg/dL 10/14/2017 10:48 PM [facility] Lactic Acid Whole Blood 4.2(HH) 0.5 - 3.4 mmol/L 10/14/2017 10:48 PM [facility] Comment:RESULTS CALLED TO AN D READ BACK BY Maddy Forrester RN AT 10:48 PM, 10/14/2017 Blood ARTERIAL BLOOD SPECIMEN / Unknown Venipuncture / Unknown 10/14/2017 10:39 PM CDT 10/14/2017 10:42 PM CDT Elver Askew MD LAB - BLOOD GAS ES ORDERABLES [address] [phone] * (ABNORMAL) GLUCOSE ACCUCHECK (08/07/2017 4:25 PM CDT) [facility] Signature Glucose, Fingerstick 131(H) 70-115mg/d L mg/dL [facility] ([facility]) Comment:Dress Draper: CATHLEEN VAZQUEZ 08/07/2017 4:25 PM CDT Manav Gray MD LAB - CHEMISTRY SHIRLEY GARCIA [facility] * (ABNORMAL) URINALYSIS W/MICROSCOPIC NO CULTURE (08/07/2017 10:04 AM CDT) Color UA Yellow Straw, Yellow, Colorless, Light Yellow [facility] Clarity UA Clear Clear [facility] Specific Blachly UA 1.004 1.001 - 1.030 [facility] pH UA 5.5 5.0 - 8.0 [facility] Protein UA Negative <=20 mg/dL [facility] Glucose UA Negative Negative mg/dL [facility] Ketone UA Negative Negative mg/dL [facility] Bilirubin UA Negative Negative mg/dL [facility] Blood UA Negative Negative [facility] Nitrite UA Negative Negative [facility] Leukocyte Esterase Negative Negative [facility] Urobilinogen UA <2.0 <2.0 mg/dL [facility] RBC UA 1 0 - 8 /HPF [facility] WBC UA 1 0 - 2 /HPF [facility] Squamous Epithelial Cells UA 4(H) 0 - 1 /HPF [facility] Mucus UA Rare(A) None /LPF [facility] Urine specimen (specimen) 08/07/2017 10:04 AM CDT 08/07/2017 12:10 PM CDT Manav Gray MD LAB - URINALYSIS ORD ERABLES [address] [phone] * TSH (08/07/2017 1:42 AM CDT) TSH 2.664 0.350 - 4.940 uIU/mL [facility] Blood specimen (specimen) BLOOD SPECIMEN / Unknown 08/07/2017 1:42 AM CDT 08/07/2017 1:54 AM CDT Cassie Huffman [facility] LAB - CHEMISTRY ORDERABLES [address] [phone] * (ABNORMAL) CREATININE BLOOD - POCT (IP) [facility] (07/09/2017) Creatinine POCT 1.70(A) 0.3 - 1.3 mg/dL [facility] eGFR POCT 33(A) 60 ml/min [facility] 07/09/2017 Sara Joaquin [facility] [facility] LAB - POINT OF CARE ORDERABLES Performing Organization Address City/[facility] Co de Phone Number [address] Care Teams Red Leader Relationship Specialty Start Date End Date Fernie Barfield DO [address] [place] [phone] PCP - General 04/14/17
--- OUTSIDE RECORDS SUMMARY | 2024-05-03 11:16 | XMS_ITS | Encounter Summary ---
Author Organization [facility] Address [address] [place] [address] Care Team Providers Care Case Management Associate Name Role Phone Fernie Barfield DO Primary Care Provider Reason for Visit * Reason Comments Follow-up Encounter Details Date Type Department Care Team (Late st Contact Info) Description 11/05/2017 Telephone [facility] [phone] [address] Dulce Pepe RN Follow-up Social History Tobacco Use Types Packs/Day [...] as of this encounter Progress Notes * Bhargav Graves, ALEJANDRO - 11/08/2017 9:07 AM CDT Returned call to (Ralph) and discussed pt status. Informed to make appt at OSH to evaluate need for LVP. States having routine HD, improvement in peripheral edema. Instructed to call office ifany orders needed, verbalizes understanding. documented in this encounter Miscellaneous Notes * Telephone Encounter - Mera Stack RN - 11/08/2017 8:28 AM CDT Pt's spouse calls triage line, believes pt needs LVP. He reports he measured abdomen on Wednesday was 90cm, measured Sat 91cm, this morning 92cm. Pt cont on dialysis but on reduced time/frequency. Pt has dialysis today at 1300. Pt's appetite had improved, but now difficulty eating d/t fullness in abdomen. No vomiting. Continues lactulose, only had one small BM yesterday. [facility] Ralph can be reached at [phone] * Telephone Encounter - Dulce Pepe RN - 11/05/2017 8:10 AM CDT Pt's called to say he thinks his needs a LVP due to ascites, currently on dialysis 2 hours twice a week. Says her abdomen is very large and last paracentesis was 12 days ago in the hospital. Would like to talk with Sara Becker NP concerning her care documented in this encounter Plan of Treatment Not on file documented as of this encounter Visit Diagnoses Not on filedocumented in this encounter Care Teams Case Management Associate Relationship Specialty Start Date End Date Fernie Barfield DO [address] [place] [address], [place] [phone] PCP - General 04/14/17 documented as of this encounter
--- OUTSIDE RECORDS SUMMARY | 2024-05-03 11:16 | XMS_ITS | Encounter Summary ---
Author Organization [facility] Address [address] [facility] [place] [address] Care Team Providers Care Events Administrative Assistant Name Role Phone Fernie Barfield DO Primary Care Provider [phone] Reason for Visit * Reason Comments Cirrhosis Encounter Details Date Type Department Care Team (Late st Contact Info) Description 02/21/2021 11:00 AM CDT Office Visit [facility] [address] [facility], [place] [phone] Sara Joaquin, ENGINEERING TECHNICAL SPECIALIST-CHUTE FEEDER [address] [place] [phone] 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) (Primary [...] Pulse 76 02/21/2021 11:10 AM CDT Temperature - - Respiratory Rate - - Oxygen Saturation - - Inhaled Oxygen Concentration - - Weight 58.5 kg (129 lb) 02/21/2021 11:10 AM CDT Height 154.9 cm (5' 1 ) 02/21/2021 11:10 AM CDT Body Mass Index 24.37 02/21/2021 11:10 AM CDT documented in this encounter Functional [...] Patient Instructions * Patient Instructions* Sara Joaquin, ENGINEERING TECHNICAL SPECIALIST-CHUTE FEEDER - 02/21/2021 11:56 AM CDT Thank you for entrusting your healthcare to the physicians and other specialists at the [facility] Gastroenterology and Hepatology clinic today. Following your [...] please call (hospital main number), ask the gear grinding machine operator to call the gastroenterology fellow lead injection mold technician. ?? Emergency: call 911 or go to your closest emergency room. We encourage you to use [employer] to send and receive messages and review your test results. Let us know if you need information on signing up for [employer]. More information about us and our services can be found on our websites at [email or web address] and [email or web address] Information about the Friends of [facility], a mft-juw-loojtz foundation supporting liver disease research by your doctors and researchers at [facility], can be found at: [email or web address] [email or web address] for new phone # New clinic contact info starting Jan 15, 2020 IMPORTANT 02/21/2021 The following information and instructions are from your visit today: Ms. li is to be scheduled for MRI with and without contrast She will get her labs on the day She is to follow up in the clinic the day of her MRI She was instructed to call the clinic if she has any questions or concerns. documented in this encounter Progress Notes * Sara Joaquin APRN-CNP - 02/21/2021 11:16 AM CDT Coding Rationale New or est? Established Patient Highest problem complexity: 2 or more stable chronic illnesses Data review: Review of result(s): 1 unique source(s) Ordering of test(s): 3 or more unique test(s) ordered Highest level of risk: Low Suggested code: 39446 Ms. Li is a 60 year old female who presents at the [facility] today for a follow up visit forkarli liver . Patient was to have a CT scan today. Hsuband did not want thispatient to have contrast as the last time she had ct scan with contast 24 hours later she was lethargic and forget ful and felt that she was going to combust as she got that warm She and bth had covid In December 29 or so She had coughing and had zithromax and prednisone, and zinc. Last paracentesis was 02/2018 She is walking more and riding a recumbent bike. She has more energy She is accompanied by her Chief Complaint Patient presents with ??? 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 Disorder [...] file Occupational History ??? Not on file Tobacco Use ??? Smoking status: Current Every Day Smoker Packs/day: 0.50 Types: Cigarettes ??? Smokeless tobacco: Former User Vaping Use ??? Vaping Use: Never used Substance and Sexual Activity ??? Alcohol use: Yes Comment: Pt states she has an occasional cocktail ??? Drug use: No ??? Sexual activity: Not on file Other Topics Concern ??? Not on file Social History Narrative ??? Not on file Social Determinants of Health Financial Resource Strain: ??? Difficulty of Paying Living Expenses: Not on file Food Insecurity: ??? Worried About Running Out of Food in the Last Year: Not on file ??? Ran Out of Food in the Last Year: Not on file Transportation Needs: ??? Lack of Transportation (Medical): Not on file ??? Lack of Transportation (Non-Medical): Not on file Physical Activity: ??? Days of Exercise per Week: Not on file ??? Minutes of Exercise per Session: Not on file Stress: ??? Feeling of Stress : Not on file Social Connections: ??? Frequency of Communication with Friends and Family: Not on file ??? Frequency of Social Gatherings with Friends and Family: Not on file ??? Attends Caodaism Services: Not on file ??? Active Member of Clubs or Organizations: Not on file ??? Attends Club or Organization Meetings: Not on file ??? Marital Status: Not on file Intimate Partner Violence: ??? Fear of Current or Ex-Partner: Not on file ??? Emotionally Abused: Not on file ??? Physically Abused: Not on file ??? Sexually Abused: Not on file Housing Stability: ??? Unable to Pay for Housing in the Last Year: Not on file ??? Number of Places Lived in the Last Year: Not on file ??? Unstable Housing in the Last Year: Not on file Past Medical History: Diagnosis [...] describes her current average alcohol consumption as Several drinks a week but less than a 6 pack I have reviewed with her regarding her Medical, Social and Family history and I have updated and corrected these sections of his [facility] electronic health record based on my discussions [...] (FLONASE) 50 MCG/ACT nasal spray as needed (Patient not taking: Reportedon 02/21/2021) ??? folic acid (FOLVITE) 1 MG tablet Take 1 mg by mouth DAILY. (Patient not taking: Reported on 02/21/2021) ??? MILK THISTLE PO Take by mouth once daily ??? Other Maritime pine- antioxidant- twice daily ??? Probiotic Product (ACIDOPHILUS/GOAT MILK) CAPS Take 1 tablet by mouth DAILY. ??? vitamin D, cholecalciferol, 2000 UNITS tablet Take 1 tablet by mouth once daily ??? Vitamins/Minerals TABS Take 1 tablet by mouth DAILY. ??? Zinc 25 MG Take by mouth once daily No current facility-administered medications for this visit. I have reviewed and confirmed with Ms. Li her current medications, allergies, social history. Review of systems: HEENT: normal Appetite: good . Fatigue: exergy is improving Chest pain: none. Shortness of breath: none. Nausea and vomiting: none. Abdominal pain: none . Reflux or GERD symptoms: none. Constipation or diarrhea: none. Edema: None Musculoskeletal pain: none Skin: rashes none Depression: she denies that this is a current problem. All other components of a 14 point review of systems were negative. On exam today,BP 133/68 (BP SITE: LEFT ARM, BP POSITION: SITTING) Pulse 76 Ht 1.549 m (5' 1 ) Wt 58.5 kg (129 lb) BMI 24.37 kg/m2 Wt Readings from Last 3 Encounters: 02/21/21 58.5 kg (129 lb) 04/26/20 62.6 kg (138 lb) 07/07/19 62.1 kg (136 lb 14.4 oz) I reviewed today's vital [...] Recent Labs Component Name 04/26/20 0954 06/23/19 0000 01/09/19 0000 04/18/18 0000 01/12/18 0000 12/04/17 0000 11/03/17 0727 11/02/17 0646 11/02/17 0646 11/01/17 0629 11/01/17 0629 09/03/17 0000 SODIUM - 140 142 - 137 - - - - - - - POTASSIUM - 4.8 4.3 - 4 - 3.8 - 3.6 - 4.5 - CHLORIDE - 104 106 - 105 - - - - - - - CO2 - 28 24 23 26 - 29 - 29 - 25 - BUN - 15 27* 27* 20* - 22 - 18 - 39* - CREATININE - - - - - - 1.3* - 1.1 - 1.6* - GLUCOSE - 123* 110* - 105* - 84 - 87 - 98 - CALCIUM - 10.0 10.4* 9.7 8.6* - 9.1 - 9.1 - 9.4 - ALKPHOS - 281* 241* - 225* - 433* - 473* - 493* - ALT - 44 33 - 14 - 35 - 38 - 33 - AST - 64* 54* - 26 - 51* - 60* - 58* - TBIL - 0.9 0.9 - 0.3 - - - - - - - TPROT - 7.1 7.3 - 5* - - - - - - - EGFR >60 79 69 - - - 42* - 51* - 33* - - = values in this interval not displayed. . Recent Labs Component Name 04/25/20 0000 06/23/19 0000 01/09/19 0000 11/24/17 0000 11/03/17 0727 11/02/17 0646 11/02/17 0646 11/01/17 0629 11/01/17 0629 10/30/17 0553 10/29/17 0539 WBC 7.8 8.4 9.6 - 8.5 - 8.8 - 9.1 - 10.6* RBC - - - - 2.32* - 2.18* - 2.09* - 2.31* HGB 13.6 12.9 12.9 - 7.7* - 7.2* - 7.0* - 7.6* HCT 39.7 38.7 39.0 - 23.8* - 22.2* - 20.8* - 22.6* MCV - - - - 102.6* - 101.8* - 99.5* - 97.8* MCHC - - - - 32.4 - 32.4 - 33.7 - 33.6 PLTCOUNT - - - - 237 - 186 - 159 - 64* NEUTPCT - - - - 76.3* - 76.5* - - - 80.1* NEUTABS 5.81 6.07 7.13 - 6.5 - 6.7 - 7.37* - 8.5* - = values in this interval not displayed. Recent Labs Component Name 04/25/20 0000 06/23/19 0000 01/09/19 0000 INR 1.01 0.99 0.96 Recent Labs Component Name 04/25/20 0000 06/23/19 0000 01/09/19 0000 04/18/18 0000 04/18/18 0000 01/12/18 0000 01/12/18 0000 11/24/17 0000 11/03/17 0727 11/02/17 0646 11/02/17 0646 11/01/17 0629 11/01/17 0629 TBILI - - - - - - - - 1.4* - 1.4* - 1.3* TBIL - 0.9 0.9 - - - 0.3 - - - - - - ALKPHOS - 281* 241* - - - 225* - 433* - 473* - 493* ALT - 44 33 - - - 14 - 35 - 38 - 33 AST - 64* 54* - - - 26 - 51* - 60* - 58* ALB - 4.2 4.5 - 4.1 - 2.2* - 2.9* - 2.9* - 2.9* NA - - - - 139 - - - 137 - 137 - 137 SODIUM - 140 142 - - - 137 - - - - - - POTASSIUM - 4.8 4.3 - - - 4 - 3.8 - 3.6 - 4.5 CO2 - 28 24 - 23 - 26 - 29 - 29 - 25 CREATININE - - - - - - - - 1.3* - 1.1 - 1.6* BUN - 15 27* - 27* - 20* - 22 - 18 - 39* HGB 13.6 12.9 12.9 - 12.9 - 9.5* - 7.7* - 7.2* - 7.0* WBC 7.8 8.4 9.6 - 8.5 - 6.7 - 8.5 - 8.8 - 9.1 PLTCOUNT - - - - - - - - 237 - 186 - 159 PLT 228 233 264 - 289 - 387 - - - - - - INR 1.01 0.99 0.96 - 1.08 - 1.02 - 1.1 - 1.1 - 1.1 - = values in this interval not displayed. I have reviewed the laboratory studies with Ms. Li Impression: My impression is that Ms. Li has SALGADO Cirrosis no ascites No HE HCC surveillance . Patient and have several issues related to HCC surveillance. feels that the contrast caused patient Mental issues. Instructed on importance of surveillance especially in the presence of of multiple arterially enhancing observation Plan: Ms. li is to be scheduled for MRI with and without contrast She will get her labs on the day She is to follow up in the clinic the day of her MRI She was instructed to call the clinic if she has any questions or concerns. Sincerely, Sara BOLANOS [facility] Level [address] [place], [place] [phone] Collaborating Physican Elder Arizmendi MD Multidisciplinary Clinic Level [address] [place], [place] [phone] Address letter to: Fernie Barfield DO [address] [place] [address] documented in this encounter Plan of Treatment [...] disease documented in this encounter Care Teams Events Administrative Assistant Relationship Specialty Start Date End Date Fernie Barfield DO [address] [place], [place] PCP - General 04/14/17 documented as of this encounter
--- OUTSIDE RECORDS SUMMARY | 2024-05-03 11:16 | XMS_ITS | Encounter Summary ---
Author Organization [facility] Address [address] [facility] [place] [address] Care Team Providers Care Blow Mold Operator Name Role Phone Fernie Barfield DO Primary Care Provider Reason for Referral * Radiology Services (Routine) - Closed Specialty Diagnoses / Procedures Referred By Contac t Referred To Contact Ultrasound Diagnoses Fatty (change of) liver, not elsewhere classified Procedures US ABDOMEN LIMITED Sara Joaquin APRN-CNP [address] [place] [address] [place] [id number] [place] [address] Referral ID Status Reason Start Date Expiration Date Visits Re quested Visits Authorized [id number] Closed 01/06/2019 07/14/2019 1 1 INE PAINT MIXER Reason for Visit * Radiology Services (Routine) - Closed Specialty Diagnoses / Procedures Referred By Contac t Referred To Contact Ultrasound Diagnoses Fatty (change of) liver, not elsewhere classified Procedures US ABDOMEN LIMITED Sara Joaquin APRN-CNP [address] [facility] [address] [place] [address] [facility] Us [address] [place] [address] Referral ID Status Reason Start Date Expiration Date Visits Re quested Visits Authorized [id number] Closed 01/06/2019 07/14/2019 1 1 Encounter Details Date Type Department Care Team (Latest Contact Info) Description 07/07/2019 9:30 AM MACHINE PAINT MIXER - 07/07/2019 11:59 PM [facility] Encounter [facility] US [address] [place] [address] Sara Joaquin, COMPTOMETRIST-ROUTE CONTRACTOR [address] [place] [address] Discharge Disposition: Home or Self [...] mouth once daily as needed 0 12/03/2017 Ascorbic Acid (VITAMIN C PO) Take by [...] Procedure Name Priority Date/Time Associated Diagnosis Comments US ABDOMEN LIMITED Routine 07/07/2019 10 :23 AM MACHINE PAINT MIXER Fatty (change of) liver, not elsewhere classified documented in this encounter Results * US ABDOMEN LIMITED (07/07/2019 10:23 AM MACHINE PAINT MIXER) Anatomical Region Laterality Modality Abdomen Ultrasound 07/07/2019 11:5 5 AM MACHINE PAINT MIXER Impressions 07/07/2019 12:48 PM MACHINE PAINT MIXER IMPRESSION: 1. Hepatic steatosis and cirrhosis. 2. [...] is recommended. Dictated by Jose Gill MD (vice president planning). I, Dr. ASHLYN COONEY M.D. have personally reviewed and interpreted this examination/study. This report was electronically signed by ASHLYN COONEY M.D. ??on 07/07/2019 12:48 PM . Narrative 07/07/2019 12:48 PM MACHINE PAINT MIXER EXAMINATION: Limited abdominal sonogram HISTORY: K76.0: Fatty [...] is recommended. Dictated by Jose Gill MD (vice president planning). I, Dr. ASHLYN COONEY M.D. have personally reviewed and interpretedthis examination/study. This report was electronically signed by ASHLYN COONEY M.D. on 07/07/2019 12:48 PM . Sara Joaquin COMPTOMETRIST-ROUTE CONTRACTOR US ORDERABLE S documented in this encounter Visit Diagnoses Diagnosis Fatty (change of) liver, not elsewhere classified documented in this encounter Care Teams Blow Mold Operator Relationship Specialty Start Date End Date Fernie Barfield DO [address] [place] [phone] PCP - General 04/14/17 documented as of this encounter
--- OUTSIDE RECORDS SUMMARY | 2024-05-03 11:16 | XMS_ITS | Encounter Summary ---
Author Organization [facility] Address [address] [facility] [place] [address] Care Team Providers Care Production Internship Name Role Phone Fernie Barfeild DO Primary Care Provider [phone] Reason for Visit * Reason Comments Appointment Encounter Details Date Type Department Care Team (Late st Contact Info) Description 06/23/2018 Telephone [facility] [phone] [place] [address] Adwoa Perez RN Appointment Social History Tobacco Use Types Packs/Day [...] as of this encounter Progress Notes * Adwoa Perez RN - 06/23/2018 11:00 AM CST Called pt and left a voicemail reminding pt of her upcoming appointment with Dr. Turpin on 07/08/18 at 1100. Advised that pt needs labs prior to the appointment; will determine pt's preferred lab. S REVIEW NURSE documented in this encounter Plan of Treatment Not on file documented as of this encounter Visit Diagnoses Not on filedocumented in this encounter Care Teams Production Internship Relationship Specialty Start Date End Date Fernie Barfield DO [address] [place] [phone] PCP - General 04/14/17 documented as of this encounter
--- OUTSIDE RECORDS SUMMARY | 2024-05-03 11:18 | XMS_ITS | Encounter Summary ---
Author Organization [facility] Address [address] [facility] [place] [address] Care Team Providers Care Assistant Maintenance Manager Name Role Phone Fernie Barfield DO Primary Care Provider + [phone] Encounter Details Date Type Department Care Team (Latest Contact Info) Description 06/03/2017 Hospital Outpatient Visit [facility] [address] [place] [address] Sara Joaquin, SALES EXEC-BILINGUAL SPEECH LANGUAGE PATHOLOGIST [address] [place] [address] Discharge Disposition: Home or Self Care Social History Tobacco Use Types Packs/Day Years Used Date Smoking Tobacco: Never Assessed Sex and Gender Information Value Date Recorded Sex Assigned at Not on file Gender Identity Not on file Sexual Orientation Not on file documented as of this encounter Plan of Treatment Not on file documented as of this encounter Visit Diagnoses Not on filedocumented in this encounter Care Teams Assistant Maintenance Manager Relationship Specialty Start Date End Date Fernie Barfield DO [address] [place] [phone] PCP - General 04/14/17 documented as of this encounter
--- OUTSIDE RECORDS SUMMARY | 2024-05-03 11:18 | XMS_ITS | Encounter Summary ---
Author Organization [facility] Address [address] [facility] [place] [address] Care Team Providers Care Process Owner Name Role Phone Fernie Barfield DO Primary Care Provider Reason for Visit * Reason Comments Future Appointment Encounter Details Date Type Department Care Team (Late st Contact Info) Description 09/30/2017 Telephone [facility] [address] [place] [address] Krystina Ledezma, RN Future Appointment Social History Tobacco Use [...] on file documented as of this encounter Progress Notes * Bhargav Graves, RN - 09/30/2017 1:36 PM CDT call placed to pt, new appt made fro 10/15/17 at 0920 per Sara Joaquin NP. Pt verbalizes understanding of same. * Krystina Ledezma RN - 09/30/2017 10:33 AM CDT Pt contacted triage line to change appt. Pt states that she cannot make 10/14 appt as she needs to come in on a Fri. Pt states she doesn't want to call scheduling line as she is afraid next available will be too far out. Instructed pt to make appt with scheduling line and he concerns would be forwarded to Ab Joaquin NP. documented in this encounter Plan of Treatment Not on file documented as of this encounter Visit Diagnoses Not on filedocumented in this encounter Care Teams Process Owner Relationship Specialty Start Date End Date Fernie Barfield DO [address] [place] [phone] PCP - General 04/14/17 documented as of this encounter
--- OUTSIDE RECORDS SUMMARY | 2024-05-03 11:18 | XMS_ITS | Encounter Summary ---
Author Organization [facility] Address [address] [facility] [address] Care Team Providers Care Concrete Stone Fabricating Supervisor Name Role Phone Fernie Barfield DO Primary Care Provider + [phone] Encounter Details Date Type Department Care Team (Latest Contact Info) Description 07/09/2017 Hospital Outpatient Visit [facility] [address] [place] [phone] Sara Joaquin, SPUD GRADER-BOBBIN COLLECTOR [address] [place] [address] Discharge Disposition: Home or Self Care Social [...] on filedocumented in this encounter Care Teams Concrete Stone Fabricating Supervisor Relationship Specialty Start Date End Date Fernie Barfield DO [address] [place] [phone] PCP - General 04/14/17 documented as of this encounter
--- OUTSIDE RECORDS SUMMARY | 2024-05-03 11:18 | XMS_ITS | Encounter Summary ---
Author Organization [facility] Address [address] [facility] [place] [address] Care Team Providers Care Rotary Cutter Feeder Name Role Phone Fernie Barfield DO Primary Care Provider + [phone] Encounter Details Date Type Department Care Team (Latest Contact Info) Description 05/03/2017 Hospital Outpatient Visit [facility] [address] [place] [address] Sara Joaquin, MORTGAGE BRANCH MANAGER-PROJECT ACCOUNTANT [address] [place] [place] [address] Discharge Disposition: Home or Self Care Social [...] on filedocumented in this encounter Care Teams Rotary Cutter Feeder Relationship Specialty Start Date End Date Fernie Barfield DO [address] [place] [phone] PCP - General 04/14/17 documented as of this encounter
--- OUTSIDE RECORDS SUMMARY | 2024-05-03 11:18 | XMS_ITS | Encounter Summary ---
Author Organization [facility] Address [address] [facility] [place] [address] Care Team Providers Care Flat Cutter Name Role Phone Fernie Barfield DO Primary Care Provider + [phone] Encounter Details Date Type Department Care Team (Latest Contact Info) Description 07/02/2017 Hospital Outpatient Visit [facility] [address] [place] [address] Sara Joaquin, WINDSURFING INSTRUCTOR-RIPRAP PLACER [address] [place] [address] Discharge Disposition: Home or Self Care Social [...] on filedocumented in this encounter Care Teams Flat Cutter Relationship Specialty Start Date End Date Fernie Barfield DO [address] [place] [phone] PCP - General 04/14/17 documented as of this encounter
--- OUTSIDE RECORDS SUMMARY | 2024-05-03 11:18 | XMS_ITS | Encounter Summary ---
Author Organization [facility] Address [address] [facility] [place] [address] Care Team Providers Care Piston Maker Name Role Phone Fernie Barfield DO Primary Care Provider Reason for Visit * Reason Comments Hospitalization [facility] ICU Encounter Details Date Type Department Care Team (Late st Contact Info) Description 10/14/2017 Telephone [facility] - GI [address] [facility], [place] [address] Sara Joaquin, STUDENT WORKER-SUPERVISOR BAKING [address] [place] [address] Hospitalization ([facility] ICU) Social History Tobacco Use Types Packs/Day Years [...] as of this encounter Progress Notes * Roseline Pan RN - 10/14/2017 10:24 AM CDT Pt's calls triage stating he is very concerned about his 's hospitalization at [facility]. States her abdomen is full and he doesn't believe she is getting better. RN speaks to for 10 minutes and I recommended requesting a transfer. is very stressed concerning 's he alth, home care, his job/finances etc. RN informs to keep us informed. Will cancel upcoming visit and reschedule after gets d/c from hospital. documented in this encounter Plan of Treatment Not on file documented as of this encounter Visit Diagnoses Not on filedocumented in this encounter Care Teams Piston Maker Relationship Specialty Start Date End Date Fernie Barfield DO [address] [place] [phone] PCP - General 04/14/17 documented as of this encounter
--- OUTSIDE RECORDS SUMMARY | 2024-05-03 11:18 | XMS_ITS | Encounter Summary ---
Author Organization [facility] Address [address] [facility] [place] [address] Care Team Providers Care Natural Resource Manager Name Role Phone Fernie Barfield DO Primary Care Provider Encounter Details Date Type Department Care Team (Latest Contact Info) Description 07/09/2017 Hospital Outpatient Visit Historic [facility] OUTPATIENT SERVICES [address] [place] [phone] Sara Joaquin, NURSE LIAISON-INORGANIC CHEMIST [address] [place] [address] Discharge Disposition: Home or Self Care Social [...] Procedure Name Priority Date/Time Associated Diagnosis Comments PT-INR [facility] Routine 07/09/2017 12:33 PM RECYCLING MANAGER CBC W AUTO DIFFERENTIAL Routine 07/09/2017 12:33 PM RECYCLING MANAGER COMPREHENSIVE METABOLIC PANEL Routine 07/09/2017 12:33 PM RECYCLING MANAGER MAGNESIUM BLOOD Routine 07/09/2017 12:33 PM RECYCLING MANAGER CBC W AUTO DIFFERENTIAL Routine 07/09/2017 12:[address] ABDOMEN MULTI PHASE W CONT Routine 07/09/2017 12:08 PM RECYCLING MANAGER CREATININE BLOOD - POCT (IP) [facility] Routine 07/09/2017 documented in this encounter Results * (ABNORMAL) CBC W AUTO DIFFERENTIAL (07/09/2017 12:33 PM RECYCLING MANAGER) WBC 6.9 3.5 - 10.5 10? 3 /uL [facility] RBC 3.22(L) 3.90 - 5.00 10? 6 /uL [facility] Hemoglobin 10.3(L) 12.0 - 15.5 g/dL [facility] Hematocrit 28.9(L) 35.0 - 45.0 % [facility] MCV 89.8 81.0 - 97.0 fL [facility] MCH 32.0 28.0 - 34.0 pg [facility] MCHC 35.6 32.0 - 36.0 g/dL [facility] Platelet Count 504(H) 150 - 400 10? 3 /uL [facility] RDW-SD 48.9 36.0 - 50.0 fL [facility] RDW-CV 15.0(H) 11.2 - 14.8 % [facility] MPV 8.6(L) 9.3 - 12.8 fL [facility] nRBC Absolute 0.00 0 10? 3 /uL [facility] nRBC Auto 0.0 0 /100 WBC [facility] Neutrophils % 76.8(H) 35.0 - 70.0 % [facility] Lymphocytes % 14.6(L) 19.7 - 55.1 % [facility] Monocytes % 7.8 3.0 - 15.0 % [facility] Eosinophils % 0.4 0.0 - 6.0 % [facility] Basophil % 0.4 0.0 - 1.5 % [facility] Neutrophils Absolute 5.3 1.6 - 7.0 10? 3 /uL [facility] Lymphocyte Absolute 1.0 0.8 - 2.9 10? 3 /uL [facility] Monocytes Absolute 0.54 0.14 - 0.66 10? 3 /uL [facility] Eosinophils Absolute 0.03 0.00 - 0.22 10? 3 /uL [facility] Basophils Absolute 0.03 0.00 - 0.06 10? 3 /uL [facility] Immature Granulocytes % 0.4 0.0 - 1.0 % [facility] Blood specimen (specimen) BLOOD SPECIMEN / Unknown 07/09/2017 12:33 PM RECYCLING MANAGER 07/09/2017 12:47 PM RECYCLING MANAGER Sara Joaquin NURSE LIAISON-INORGANIC CHEMIST LAB - HEMATO LOGY ORDERABLES Performing Organization Address City/State/[facility] Co de Phone Number [facility] [address] [phone] * (ABNORMAL) COMPREHENSIVE METABOLIC PANEL (07/09/2017 12:33 PM RECYCLING MANAGER) BUN 29(H) 7 - 26 mg/dL [facility] Creatinine 1.4(H) 0.6 - 1.2 mg/dL [facility] Sodium 124(L) 136 - 145 mmol/L [facility] Potassium 4.2 3.5 - 4.5 mmol/L [facility] Chloride 86(L) 98 - 107 mmol/L [facility] CO2 24 22 - 29 mmol/L [facility] Glucose 119(H) 70 - 115 mg/dL [facility] Calcium 8.6 8.4 - 10.2 mg/dL [facility] Protein Total 5.2(L) 6.0 - 8.3 g/dL [facility] Albumin 2.1(L) 3.4 - 5.0 g/dL [facility] Bilirubin Total 0.9 0.2 - 1.2 mg/dL [facility] Alkaline Phosphatase 191(H) 40 - 150 Units/L [facility] ALT 10 0 - 55 Units/L [facility] AST 24 5 - 34 Units/L [facility] Anion Gap 18 8 - 18 [facility] BUN/Creatinine Ratio 21 7 - 23 [facility] Osmolality Calculated 265(L) 270 - 300 mOsm/kg [facility] Albumin/Globulin Ratio 0.7(L) 1.1 - 2.3 [facility] eGFR 39(L) >60 mL/min/1.7 3 m2 [facility] Blood specimen (specimen) BLOOD SPECIMEN / Unknown 07/09/2017 12:33 PM RECYCLING MANAGER 07/09/2017 12:47 PM RECYCLING MANAGER Sara Joaquin NURSE LIAISON-INORGANIC CHEMIST LAB - CHEMIS TRY ORDERABLES [address] [phone] * (ABNORMAL) MAGNESIUM BLOOD (07/09/2017 12:33 PM RECYCLING MANAGER) Magnesium 1.3(L) 1.6 - 2.6 mg/dL [facility] Blood specimen (specimen) BLOOD SPECIMEN / Unknown 07/09/2017 12:33 PM RECYCLING MANAGER 07/09/2017 12:47 PM RECYCLING MANAGER Sara Joaquin APRN-INORGANIC CHEMIST LAB - CHEMIS TRY ORDERABLES Performing Organization Address City/[facility]/ZIP Co de Phone Number [address] [phone] * PT-INR [facility] (07/09/2017 12:33 PM RECYCLING MANAGER) PT 13.2 12.1 - 14.8 Seconds [facility] INR 1.0 See Comment [facility] Comment: Suggested therapeutic range for low-intensity coumadin therapy for venous thromboembolism prophylaxis is an INR of 2.0-3.0. ??For high risk patients (Mitral Valve Prosthesis, Atrial Fibrillation, history of TIA/stroke), suggested prophylactic therapeutic range is an INR of 2.5-3.5. Blood specimen (specimen) BLOOD SPECIMEN / Unknown 07/09/2017 12:33 PM RECYCLING MANAGER 07/09/2017 12:44 PM RECYCLING MANAGER Narrative [facility] - 07/09/2017 12:58 PM RECYCLING MANAGER Is patient on Heparin, Argatroban or Dabigatran?->N Sara Joaquin NURSE LIAISON-INORGANIC CHEMIST LAB - COAGUL ATION ORDERABLES Performing Organization Address [facility] Co de Phone Number [facility] [address] [phone] * CBC W AUTO DIFFERENTIAL (07/09/2017 12:33 PM RECYCLING MANAGER) Blood specimen (specimen) BLOOD SPECIMEN / Unknown 07/09/2017 12:33 PM RECYCLING MANAGER Narrative [facility] - 07/09/2017 1:32 PM RECYCLING MANAGER The following orders were created for panel order CBC w/Differential. Procedure ? Abnormality ? Status ? --------- ? ------ ? CBC WITH DIFFERENTIAL[[id number]] ? Abnormal ?Final result ? Please view results for these tests on the individual orders. Sara Joaquin NURSE LIAISON-INORGANIC CHEMIST LAB - HEMATO LOGY ORDERABLES Performing Organization Address [facility] Co de Phone Number [facility] [address] * CT ABDOMEN MULTI PHASE W CONT (07/09/2017 12:08 PM RECYCLING MANAGER) Anatomical Region Laterality Modality Other Impressions 07/09/2017 4:01 PM RECYCLING MANAGER IMPRESSION: 1. No arterially-enhancing hepatic lesions concerning for hepatocellular carcinoma. 2. Moderate volume abdominal ascites. 3. 2 hypodense hepatic lesions that do not have arterial enhancement or washout but may fill in on delayed imaging. These could represent atypical hemangiomas, or possibly cysts, and are thought benign. Attention on follow-up recommended, versus liver MRI for further characterization. Dictated by Shady Reeves MD (residential treatment specialist). I, Dr. ALEJA MORENO M.D. have personally reviewed and interpreted this examination/study. This report was electronically signed by ALEJA MORENO M.D. ??on 07/09/2017 4:01 PM . Narrative 07/09/2017 4:01 PM RECYCLING MANAGER EXAMINATION: Computed tomography (CT) of the abdomen with contrast HISTORY: Fatty liver disease TECHNIQUE: CT of the abdomen was performed following the uneventful administration of 100 mL of Omnipaque 350 intravenous contrast according to a three-phase liver protocol. COMPARISON: No prior study is available for comparison. FINDINGS: The aorta is atherosclerotic but normal in caliber. A calcified granuloma identified in the right middle lobe. There is mild dependent atelectasis in the right lung base. Otherwise, the lung bases are clear. Calcified right hilar and mediastinal lymph nodes are indicative of prior granulomatous disease. The heart size is normal without pericardial effusion. The liver is diffusely hypoattenuating consistent with diffuse hepatic steatosis. ??A 1.4 x 0.7 cm hypodense liver lesion is identified in hepatic segment IVb (series 8, image 101), consistent with a cyst. A few additional subcentimeter hypoattenuating lesions are identified in hepatic segments 7 and 8, too small to characterize. They are slightly less apparent on the delayed imaging and may represent atypical hemangiomas. No arterially-enhancing liver lesion or lesion with washout suspicious for hepatocellular carcinoma is identified. The hepatic arterial anatomy is conventional. The portal vein is nondilated. The portal and main hepatic veins are patent without evidence of thrombi. Perigastric varices are identified. Moderate volume abdominal ascites is identified. The spleen is not enlarged. The gallbladder is surgically absent. The intrahepatic and extrahepatic bile ducts are nondilated. The pancreas and adrenal glands are normal. Multiple subcentimeter low attenuating lesions in both kidneys are too small to characterize but likely represent cysts. Otherwise the kidneys enhance symmetrically. There is no evidence of renal calculus or hydronephrosis. The distal esophagus and stomach appear normal. The visualized portions of the small bowel and large bowel are normal in caliber without evidence of wall thickening or obstruction. No free intraperitoneal air is seen. No lymphadenopathy is identified. Bone windows demonstrate no suspicious lytic or blastic lesions. The visible osseous structures are intact. Mild multilevel degenerative changes are noted in the spine. Procedure Note Mellisa Moreno MD - 08/18/2017 EXAMINATION: Computed tomography (CT) of the abdomen with contrast HISTORY: Fatty liver disease TECHNIQUE: CT of the abdomen was performed following the uneventfuladministration of 100 mL of Omnipaque 350 intravenous contrast accordingto a three-phase liver protocol. COMPARISON: No prior study is available for comparison. FINDINGS: The aorta is atherosclerotic but normal in caliber. A calcified granuloma identified in the right middle lobe. There is milddependent atelectasis in the right lung base. Otherwise, the lung basesare clear. Calcified right hilar and mediastinal lymph nodes areindicative of prior granulomatous disease. The heart size is normal without pericardial effusion. The liver is diffusely hypoattenuating consistent with diffuse hepaticsteatosis. A 1.4 x 0.7 cm hypodense liver lesion is identified in hepaticsegment IVb (series 8, image 101), consistent with a cyst. A fewadditional subcentimeter hypoattenuating lesions are identified in hepatic segments 7 and 8, too small tocharacterize. They are slightly less apparent on the delayed imaging andmay represent atypical hemangiomas. No arterially-enhancing liver lesionor lesion with washout suspicious for hepatocellular carcinoma is identified. The hepatic arterial anatomy is conventional. The portal vein isnondilated. The portal and main hepatic veins are patent without evidenceof thrombi. Perigastric varices are identified. Moderate volume abdominalascites is identified. The spleen is not enlarged. The gallbladder is surgically absent. The intrahepatic and extrahepaticbile ducts are nondilated. The pancreas and adrenal glands are normal.Multiple subcentimeter low attenuating lesions in both kidneys are toosmall to characterize but likely represent cysts. Otherwise the kidneys enhance symmetrically. There is noevidence of renal calculus or hydronephrosis. The distal esophagus and stomach appear normal. The visualized portions ofthe small bowel and large bowel are normal in caliber without evidence ofwall thickening or obstruction. No free intraperitoneal air is seen. Nolymphadenopathy is identified. Bone windows demonstrate no suspicious lytic or blastic lesions. Thevisible osseous structures are intact. Mild multilevel degenerativechanges are noted in the spine. IMPRESSION IMPRESSION: 1. No arterially-enhancing hepatic lesions concerning for hepatocellularcarcinoma. 2. Moderate volume abdominal ascites. 3. 2 hypodense hepatic lesions that do not have arterial enhancement orwashout but may fill in on delayed imaging. These could represent atypicalhemangiomas, or possibly cysts, and are thought benign. Attention onfollow-up recommended, versus liver MRI for further characterization. Dictated by Shady Revees MD (residential treatment specialist). I, Dr. ALEJA MORENO M.D. have personally reviewed and interpreted thisexamination/study. This report was electronically signed by ALEJA MORENO M.D. on07/09/2017 4:01 PM . Sara Joaquin APRN-INORGANIC CHEMIST CT ORDERABLE S * (ABNORMAL) CREATININE BLOOD - POCT (IP) [facility] (07/09/2017) Creatinine POCT 1.70(A) 0.3 - 1.3 mg/dL [facility] eGFR POCT 33(A) 60 ml/min [facility] 07/09/2017 aSra Joaquin APRN-INORGANIC CHEMIST LAB - POINT OF CARE ORDERABLES [address] documented in this encounter Visit Diagnoses Diagnosis Fatty (change of) liver, not elsewhere classified Abnormal levels of other serum enzymes documented in this encounter Care Teams Natural Resource Manager Relationship Specialty Start Date End Date Fernie Barfield DO [address] [place] [phone] PCP - General 04/14/17 documented as of this encounter
--- OUTSIDE RECORDS SUMMARY | 2024-05-03 11:18 | XMS_ITS | Encounter Summary ---
Author Organization [facility] Address [address] [facility] [place] [address] Care Team Providers Care Music Specialist Name Role Phone Fernie Barfield DO Primary Care Provider Encounter Details Date Type Department Care Team (Latest Contact Info) Description 08/06/2017 Hospital Outpatient Visit Historic [facility] Gastroenterology and Hepatology [address] [place] [address] Sara Joaquin, KST OPERATOR-TOP CARRIER [address] [phone] Discharge Disposition: Home or Self Care Social [...] Date/Time Associated Diagnosis Comments PT-INR [facility] Routine 08/06/2017 11:29 AM CDT CBC W AUTO DIFFERENTIAL Routine 08/06/2017 11:29 AM CDT COMPREHENSIVE METABOLIC PANEL Routine 08/06/2017 11:29 AM CDT CBC W AUTO DIFFERENTIAL Routine 08/06/2017 11:29 AM CDT documented in this encounter Results * (ABNORMAL) CBC W AUTO DIFFERENTIAL (08/06/2017 11:29 AM CDT) WBC 8.8 3.5 - 10.5 10? 3 /uL [facility] RBC 3.71(L) 3.90 - 5.00 10? 6 /uL [facility] Hemoglobin 11.8(L) 12.0 - 15.5 g/dL [facility] Hematocrit 32.4(L) 35.0 - 45.0 % [facility] MCV 87.3 81.0 - 97.0 fL [facility] MCH 31.8 28.0 - 34.0 pg [facility] MCHC 36.4(H) 32.0 - 36.0 g/dL [facility] Platelet Count 579(H) 150 - 400 10? 3 /uL [facility] RDW-SD 42.7 36.0 - 50.0 fL [facility] RDW-CV 13.3 11.2 - 14.8 % [facility] MPV 8.2(L) 9.3 - 12.8 fL [facility] Neutrophils % 75.3(H) 35.0 - 70.0 % [facility] Lymphocytes % 18.9(L) 19.7 - 55.1 % [facility] Monocytes % 5.0 3.0 - 15.0 % [facility] Eosinophils % 0.5 0.0 - 6.0 % [facility] Basophil % 0.3 0.0 - 1.5 % [facility] Neutrophils Absolute 6.6 1.6 - 7.0 10? 3 /uL [facility] Lymphocyte Absolute 1.7 0.8 - 2.9 10? 3 /uL [facility] Monocytes Absolute 0.44 0.14 - 0.66 10? 3 /uL [facility] Eosinophils Absolute 0.04 0.00 - 0.22 10? 3 /uL [facility] Basophils Absolute 0.03 0.00 - 0.06 10? 3 /uL [facility] Immature Granulocytes % 0.2 0.0 - 1.0 % [facility] Blood specimen (specimen) BLOOD SPECIMEN / Unknown 08/06/2017 11:29 AM CDT 08/06/2017 11:35 AM CDT Sara Joaquin KST OPERATOR-TOP CARRIER LAB - HEMATO LOGY ORDERABLES [address] [phone] * (ABNORMAL) COMPREHENSIVE METABOLIC PANEL (08/06/2017 11:29 AM CDT) BUN 20 7 - 26 mg/dL [facility] Creatinine 1.1 0.6 - 1.2 mg/dL [facility] Sodium 117(LL) 136 - 145 mmol/L [facility] Comment: Confirmed by repeat analysis. Critical value(s) have been verified and called to and read back by Roseline Pan RN at 1:08 PM on 08/06/2017. Potassium 4.0 3.5 - 4.5 mmol/L [facility] Chloride 83(L) 98 - 107 mmol/L [facility] CO2 21(L) 22 - 29 mmol/L [facility] Glucose 129(H) 70 - 115 mg/dL [facility] Calcium 8.4 8.4 - 10.2 mg/dL [facility] Protein Total 5.5(L) 6.0 - 8.3 g/dL [facility] Albumin 1.9(L) 3.4 - 5.0 g/dL [facility] Bilirubin Total 0.7 0.2 - 1.2 mg/dL [facility] Alkaline Phosphatase 263(H) 40 - 150 Units/L [facility] ALT 13 0 - 55 Units/L [facility] AST 35(H) 5 - 34 Units/L [facility] Anion Gap 17 8 - 18 [facility] BUN/Creatinine Ratio 18 7 - 23 [facility] Osmolality Calculated 248(L) 270 - 300 mOsm/kg [facility] Albumin/Globulin Ratio 0.5(L) 1.1 - 2.3 [facility] eGFR 52(L) >60 mL/min/1.7 3 m2 [facility] Blood specimen (specimen) BLOOD SPECIMEN / Unknown 08/06/2017 11:29 AM CDT 08/06/2017 11:35 AM CDT Sara Joaquin APRN-TOP CARRIER LAB - CHEMIS TRY ORDERABLES Performing Organization Address [facility] Co de Phone Number [address] [phone] * PT-INR [facility] (08/06/2017 11:29 AM CDT) PT 14.3 12.1 - 14.8 Seconds [facility] INR 1.1 See Comment [facility] Comment: Suggested therapeutic range for low-intensity coumadin therapy for venous thromboembolism prophylaxis is an INR of 2.0-3.0. ??For high risk patients (Mitral Valve Prosthesis, Atrial Fibrillation, history of TIA/stroke), suggested prophylactic therapeutic range is an INR of 2.5-3.5. Blood specimen (specimen) BLOOD SPECIMEN / Unknown 08/06/2017 11:29 AM CDT 08/06/2017 11:35 AM CDT Narrative [facility] - 08/06/2017 11:49 AM CDT Is patient on Heparin, Argatroban or Dabigatran?->N Sara Joaquin APRN-TOP CARRIER LAB - COAGUL ATION ORDERABLES Performing Organization Address [facility] Co de Phone Number [address] [phone] * CBC W AUTO DIFFERENTIAL (08/06/2017 11:29 AM CDT) Blood specimen (specimen) BLOOD SPECIMEN / Unknown 08/06/2017 11:29 AM CDT Narrative [facility] - 08/06/2017 11:44 AM CDT The following orders were created for panel order CBC w/Differential. Procedure ? Abnormality ? Status ? --------- ? ------ ? CBC WITH DIFFERENTIAL[[id number]] ? Abnormal ?Final result ? Please view results for these tests on the individual orders. Sara Joaquin KST OPERATOR-TOP CARRIER LAB - HEMATO LOGY ORDERABLES Performing Organization Address [facility] Co de Phone Number [facility] [address] documented in this encounter Visit Diagnoses Diagnosis Fatty (change of) liver, not elsewhere classified documented in this encounter Care Teams Music Specialist Relationship Specialty Start Date End Date Fernie Barfield DO [address] [place] [phone] PCP - General 04/14/17 documented as of this encounter
--- OUTSIDE RECORDS SUMMARY | 2024-05-03 11:18 | XMS_ITS | Encounter Summary ---
Author Organization [facility] Address [address] [facility] [place] [address] Care Team Providers Care Pump Erector Name Role Phone Fernie Barfield DO Primary Care Provider Encounter Details Date Type Department Care Team (Late st Contact Info) Description 11/02/2017 Ophth Exam [facility] [address] [place] [address] Tashia Brown MD [address] [place] [phone] Social History Tobacco Use Types Packs/Day Years [...] or have serious hearing difficult y? No 10/29/2017 Is person blind or have serious difficulty seein g? No 10/29/2017 Does person have serious dif ficulty walking/climbing stairs? Yes 10/29/2017 Does person have difficulty dressing/bathing? Ye s 10/29/2017 Does person have difficulty doing errands alone? Yes 10/29/2017 Cognitive Status Response Date of Assessm ent Does person have difficulty concentrating/remembering/making decisions? Yes 10/29/2017 documented as of this encounter Plan of Treatment Not on file documented as of this encounter Visit Diagnoses Not on filedocumented in this encounter Care Teams Pump Erector Relationship Specialty Start Date End Date Fernie Barfield DO [address] [place] [phone] PCP - General 04/14/17 documented as of this encounter
--- OUTSIDE RECORDS SUMMARY | 2024-05-03 11:18 | XMS_ITS | Encounter Summary ---
Author Organization [facility] Address [address] [facility] [facility] [place] [address] Care Team Providers Care [employer] Name Role Phone Fernie Barfield DO Primary Care Provider [phone] Reason for Visit * Reason Comments Cirrhosis Encounter Details Date Type Department Care Team (Late st Contact Info) Description 08/23/2017 Telephone [facility] [phone] [place] [address] Sherrie Matson, RN Cirrhosis Social History Tobacco Use Types Packs/Day Years [...] as of this encounter Progress Notes * Sherrie Matson, ALEJANDRO - 08/23/2017 8:36 AM CDT Call received from pt's to report now vomiting and need for paracentesis. Instructed to report to ER for paracentesis. Reports [facility] to be unable to help pt. Instructed to report to [facility] or [facility] in [place]. verbalizes understanding. LUIS MIGUEL Montemayor notified. documented in this encounter Plan of Treatment Not on file documented as of this encounter Visit Diagnoses Not on filedocumented in this encounter Care Teams [employer] Relationship Specialty Start Date End Date Fernie Barfield DO [address] [place] [phone] PCP - General 04/14/17 documented as of this encounter
--- OUTSIDE RECORDS SUMMARY | 2024-05-03 11:18 | XMS_ITS | Encounter Summary ---
Author Organization [facility] Address [address] [address] Care Team Providers Care Bariatric Physician Name Role Phone Fernie Barfield DO Primary Care Provider Reason for Visit * Auth/Cert Specialty Diagnoses / Procedures Referred By Contac t Referred To Contact Diagnoses SEPTIC SHOCK Referral ID Status Reason Start Date Expiration Date Visits Re quested Visits Authorized [id number] 1 1 Encounter Details Date Type Department Care Team (Late st Contact Info) Description 10/14/2017 8:26 PM CDT - 11/03/2017 5:47 PM CDT Hospital Encounter [facility] [address] [address] Elver Askew MD [address] [facility] [address] [place] [address] Critical Care Discharge Disposition: Retirement Facility Social History Tobacco Use Types Packs/Day Years [...] Sign Reading Time Taken Comments Blood Pressure 95/57 11/03/2017 4:33 PM CDT Pulse 90 11/03/2017 4:33 PM CDT Temperature 36.6 ??C (97.8 ??F) 11/03/2017 4:33 PM CD T Respiratory Rate 20 11/03/2017 4:33 PM CDT Oxygen Saturation 99% 11/03/2017 4:33 PM CDT Inhaled Oxygen Concentration 24% 10/27/2017 7 :00 AM CDT Weight 38.5 kg (84 lb 12.8 oz) 11/02/2017 4:32 A M CDT Height 157.5 cm (5' 2 ) 11/01/2017 5:20 AM CDT Body Mass Index 15.51 11/01/2017 5:20 AM CDT documented in this encounter Functional [...] Yes 11/03/2017 documented as of this encounter Discharge Summaries * Andrew Ruiz MD - 11/03/2017 2:24 PM CDT Physician Discharge Summary Patient ID: Rosa Li [id number] 57 y.o. 1960 Admit date: 10/14/2017 Discharge date: 11/03/2017 Admitting Physician: Elver Askew MD Discharge Physician: Héctor Barlow MD Admission Diagnoses: Septic Shock Discharge Diagnoses: ?? Oliguric JENNIFER sec to HRS now on HD ?? Septic shock Sec to community acquired pneumonia - Resolved ?? Complicated with Acute hypoxic respiratory failure Resolved ?? Dysphagia - sec to prolonged intubation ?? Chronic Hypotension ?? Secondary to underlying cirrhosis (Adrenal insufficiency ruled out) ?? HERNANDEZ Cirrhosis ?? Complicated by HE and ascites Discharged Condition: Stable Hospital Course: Ms. 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 On admission to [facility] admission was found to have bilateral pneumonia as the source of septic shock, was continued on pressors, antibiotics were switched to vancomycin and zosyn, thoracentesis result were consistent with a transudate, completed antibiotic regimen with Zosyn on 10/23 , pressors were disc ontinued on 10/24 and was successfully extubated on 10.25 and transferred to the floor on 10.27. Hospital stay was complicated by: -Encephalopathy Attributed to HE and ICU delirium , resolved with lactulose and short course of Seroquel -Anuric JENNIFER Attributed to HRS, received CRRT 10/19-10/26, on 10/28 permacath placed and started on HD. There were no signs of renal recovery and was discharged on HD outpatient center. ? -Hyponatremia Lowest 115 mEq attributed to SIADH and underlying cirrhosis, improved with fluid restriction and HD. -Chronic hypotension , asymptomatic, BP remained 80/40s despite resolution of septic shock, adrenalinsuffiencey was ruled out by stim test, steroid stress were taper down and ws continued on Midodrine 15mg TID by nephrology recommendations. -Dysphagia Secondary to prolonged intubation, short course of TF, progressively improved dischargedonce tolerating low Na diet. -Severe deconditioning : With significant muscle mass loss, discharged to acute rehab. Consults: None Significant Diagnostic Studies: MELD-Na score: 11 at 11/03/2017 7:27 AM MELD score: 11 at 11/03/2017 7:27 AM Calculated from: Serum Creatinine: 1.3 mg/dL at 11/03/2017 7:27 AM Serum Sodium: 137 mmol/L at 11/03/2017 7:27 AM Total Bilirubin: 1.4 mg/dL at 11/03/2017 7:27 AM INR(ratio): 1.1 at 11/03/2017 7:27 AM Age: 57 years Microbiology ?? Blood culture NG ?? Sputum NG ?? Urine NG Imaging ? CT chest 10.15.2017 1. No evidence of pulmonary embolism, however, [...] hepatic segment 8 likely representing a hemangioma. ? Echocardiogram 10/27 Sinus rhythm.The left ventricular cavity size, wall thickness, systolic and diastolic function are normal/hyperdynamic with no regional wall motion abnormalities present. EF 81%.Right heart has normalized compared to prior ECHO.??Infundibular borderline pulmonary stenosis due to hyperdynamic RV Discharge Exam: General - Appears older than stated age, NAD, cachetic HEENT - NC/AT, PERRL, EOMI, clear conjunctivae Neck - Supple, no LAD, no JVD, significant midline bruise Chest - CTAB no w/c/r, R side tunneled cathter CV - Holosystolic murmur, no radiations, / Abdomen - Soft, distended, wave sign (significant ascites) not tender Extremities - No??peripheral edema Skin - petichiae/ecchymoses in bilateral upper extremities Neurologic - A&O x 3, CN II-XII intact, 2/5 UE and LE strength Psych - Appropriate mood and affect Disposition: Acute Rehab Patient Instructions: Current Discharge Medication List START taking these medications Instructions Authorizing Provider hydrocortisone 5 MG tablet Commonly known as: CORTEF Quantity Dispensed: 3 tablet Start taking on: 11/04/2017 Take 1 tablet by mouth once daily for 3 days Andrew Ruiz lactulose 10 GM/15ML solution Commonly known as: CHRONULAC Quantity Dispensed: 30 bottles Take 15 mL by mouth 2 times daily for 30 days Andrew Ruiz pantoprazole EC 40 MG tablet Commonly known as: PROTONIX Quantity Dispensed: 30 tablet Start taking on: 11/04/2017 Take 1 tablet by mouth once daily Andrew Ruiz CONTINUE taking these medications which have CHANGED Instructions Authorizing Provider midodrine 5 MG tablet What changed: - how much to take - when to take this Commonly known as: PROAMATINE Quantity Dispensed: 60 tablet Take 3 tablets by mouth 3 times daily before meals Andrew Ruiz CONTINUE taking these medications which have NOT CHANGED Instructions Authorizing Provider Acidophilus/Goat Milk Caps Take 1 tablet by mouth DAILY. folic acid 1 MG tablet Commonly known as: FOLVITE Quantity Dispensed: 30 tablet Take 1 mg by mouth DAILY. Sara Joaquin ondansetron 4 MG tablet Commonly known as: ZOFRAN Take 4 mg by mouth q8h PRN (Nausea). promethazine 25 MG tablet Commonly known as: PHENERGAN Quantity Dispensed: 90 tablet Take 25 mg by mouth q8h PRN (Nausea). Sara Joaquin thiamine 50 MG tablet Commonly known as: VITAMIN B-1 Quantity Dispensed: 30 tablet Take 50 mg by mouth DAILY. Sara Joaquin Vitamins/Minerals Tabs Take 1 tablet by mouth DAILY. STOP taking these medications ALPRAZolam 0.5 MG tablet Commonly known as: XANAX cyclobenzaprine 10 MG tablet Commonly known as: FLEXERIL traMADol 50 MG tablet Commonly known as: ULTRAM Dear Ms. Li You were admitted for a severe pneumonia that required intubation and intensive unit care for almost 2 weeks. The infection has resolved but secondary to the severity your kidneys suffered some damage and required dialysis, you kidneys have not completely recovered therefore you will need dialysis as outpatient. Also, you lost significant amount of weight and muscle strength, for this reason you will need to go to rehab for some time to regain your strength. Please make sure to follow up with your liver doctor. Your next appointment will be : December 15 Dr. Schneider at 8 am Located at [address] [place] [address] It was a pleasure taking care of you Best, Liver Team Signed: Andrew Ruiz MD 11/03/2017 5:38 PM documented in this encounter Discharge Instructions * Discharge Instructions* Andrew Ruiz MD - 11/03/2017 2:13 PM CDT Dear Ms. Li You were admitted for a severe pneumonia that required intubation and intensive unit care for almost 2 weeks. The infection has resolved but secondary to the severity your kidneys suffered some damage and required dialysis, you kidneys have not completely recovered therefore you will need dialysis as outpatient. Also, you lost significant amount of weight and muscle strength, for this reason you will need to go to rehab for some time to regain your strength. Please make sure to follow up with your liver doctor. Your next appointment will be : December 15 Dr. Schneider at 8 am Located at [address] [place] [address] [address] It was a pleasure taking care of you Best, Liver Team documented in this encounter Medications at Time of Discharge Medication Sig Dispensed Refills Start Date End Date folic acid (FOLVITE) 1 MG tablet Take 1 mg by mouth DAILY. 30 tablet 5 07/02/2017 Probiotic Product (ACIDOPHILUS/GOAT MILK) CAPS Take 1 tablet by mouth DAILY. 06/03/2017 Vitamins/Minerals TABS Take 1 tablet by mouth DAILY. 06/03/2017 hydrocortisone (CORTEF) 5 MG tablet Take 1 tablet by mouth once daily for 3 days 3 tablet 11/04/2017 11/07/2017 lactulose (CHRONULAC) 10 GM/15ML solution Take 15 mL by mouth 2 times daily for 30 days 30 bottles 2 11/03/2017 12/03/2017 midodrine (PROAMATINE) 5 MG tablet Take 3 tablets by mouth 3 times daily before meals 60 tablet 3 11/03/2017 01/07/2018 ondansetron (ZOFRAN) 4 MG tablet Take 4 mg by mouth q8h PRN (Nausea). 05/26/2017 07/08/2018 pantoprazole EC (PROTONIX) 40 MG tablet Take 1 tablet by mouth once daily 30 tablet 1 11/04/2017 12/10/2017 promethazine (PHENERGAN) 25 MG tablet Take 25 mg by mouth q8h PRN (Nausea). 90 tablet 1 06/03/2017 12/10/2017 thiamine (VITAMIN B-1) 50 MG tablet Take 50 mg by mouth DAILY. 30 tablet 5 07/02/2017 01/06/2019 documented as of this encounter Progress Notes * Ludwin Lynn RN - 11/03/2017 5:47 PM CDT Hemodialysis Nursing Documentation 1. Duration of treatment: 3 hrs 2. Access type: RT IJ PC 3. Total ultrafiltration volume: 500 mL 4. Medications given during the treatment: None 5. Comments and observations: Stable HD with some dips in BP * Héctor Barlow MD - 11/03/2017 5:47 PM CDT GI Attending Note Patient was seen and examined. I discussed the case with the fellow and agree with his history, physical exam and plan with the following additions and revisions. Subjective: No c/o Objective: Blood pressure 95/57, pulse 90, temperature 97.8 ??F (36.6 ??C), resp. rate 20, height 1.575 m (5' 2 ), weight 38.5 kg (84 lb 12.8 oz), SpO2 99 %, not currently . Body mass index is 15.51 kg/(m^2). Physical Examination: General appearance Marked muscle wasting well developed no acute distress Eyes anicteric Skin no jaundice Heart regular rate and rhythm no thrills Abdomen Bowel sounds normoactive soft non-tender, non-distended, no ascites, no masses Extremities no clubbing cyanosis or edema Mental status Alert and oriented. No asterixis Labs/data: Recent Labs Component Name 11/03/17 0727 11/02/17 0646 11/01/17 0629 10/31/17 0512 WBC 8.5 8.8 9.1 10.6* HGB 7.7* 7.2* 7.0* 7.7* PLT 237 186 159 137* INR 1.1 1.1 1.1 1.2 Recent Labs Component Name 11/03/17 0727 11/02/17 0646 11/01/17 0629 NA 137 137 137 POTASSIUM 3.8 3.6 4.5 CL 98 99 102 CO2 29 29 25 BUN 22 18 39* CREATININE 1.3* 1.1 1.6* Recent Labs Component Name 11/03/17 0727 11/02/17 0646 11/01/17 0629 AST 51* 60* 58* ALT 35 38 33 ALKPHOS 433* 473* 493* TBILI 1.4* 1.4* 1.3* ALB 2.9* 2.9* 2.9* MELD-Na score: 11 at 11/03/2017 7:27 AM MELD score: 11 at 11/03/2017 7:27 AM Calculated from: Serum Creatinine: 1.3 mg/dL at 11/03/2017 7:27 AM Serum Sodium: 137 mmol/L at 11/03/2017 7:27 AM Total Bilirubin: 1.4 mg/dL at 11/03/2017 7:27 AM INR(ratio): 1.1 at 11/03/2017 7:27 AM Age: 57 years Impression: 1. HERNANDEZ cirrhosis (pt denies etoh use), mildly elevated MELD 2. Ascites w/o SBP 3. Sepsis with respiratory failure relalted to bilateral pneumonia, abx completed but still on midodrine 4. Pleural effusion ? Related to portal HTN 5. JENNIFER possibly due to sepsis and HRS now on HD 6. HE well controlled 7. Severe malnutrition with BMI 15 8. No evidence of adrenal insufficiency tapering prednisone Plan: 1. HD placement 2. Rehab placement 3. Calorie counts 4. D/c home 5. [facility] f/u Héctor Barlow MD * Shelley Hassan, [facility] [place] 11/03/2017 3:12 PM CDT Facility Transfer Note Level of Care: halfway Facility Name (include name of person confirming admission): [facility] [place] Made Aware of Special Needs (if applicable): yes RN to Please Call Report to: [phone] RN to Please Fax D/C Orders to: [phone], 1 [facility] Nurse Transportation (company and number): Family to transport Certificate of Medical Necessity rationale: NA Date/time of transfer: 11/03/17 after 5:00 PM Accepting MD: Dr. Asad Beach Completed and signed DA 124C (if applicable): NA Family/Other Notified of Transfer (name/phone): Pt's at bedside Authorization Skilled Care: [id number] Authorization for Transportation: Comments: SW met with pt and pt's at bedside and explained that insurance might not cover an ambulance ride for pt. Pt and agreeable to transport in private car; [facility] RNMelinda notified. Facility wants pt no earlier than 6:00 PM. No other SW needs; SW signing off. Name/Phone number: Shelley Salinas JASMIN Hassan, [id number] * Tashia Gonzalez, PT - 11/03/2017 1:10 PM CDT [facility] Department of Physical Medicine & Rehabilitation Progress Note Patient: Rosa Li [facility] Record Number: [id number] Date of : 1960 Age: 57 y.o. 11/03/17 0950 Missed Visit Missed Visit Procedure off the floor. Will continue to follow. Patient off the floor at Dialysis. * Ramona Domingo - 11/03/2017 12:08 PM CDT Patient has been approved and accepted for admission to [facility] [address] [place] [address] on Wednesday and Wednesday at 2:15pm for outpatient dialysis. Patient will need to arrived 30 minutes prior to schedule treatment time. Patient is cleared to discharge from outpatient dialysis placement standpoint. Dialysis Center will be notified when patientis ready for discharge to ensure they are prepared to receive patient. Liaison will continue to follow and assist with dialysis needs as needed. 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 Ramona Domingo Patient [employer]icated [employer] [facility] [employer]: [phone] * Codey Martinez SLP - 11/03/2017 10:37 AM CDT [facility] Department of Physical Medicine & Rehabilitation Progress Note Patient: Rosa Li [facility] Record Number: [id number] Date of : 1960 Age: 57 y.o. PURCHASER attempted to follow up with Pt to assess swallow function and overall PO tolerance. Pt is currently off the floor in HD but appears to be tolerating PO diet well given no change in temperature, 02 needs or WBC since initiation oral oral intake. PURCHASER will sign off case given no further PURCHASER needs appear warranted at this time. Codey Martinez M.S., [facility]PUR[facility]ASER Speech Language Pathologist Pager: [phone] * Twila Rose COTA - 11/03/2017 10:07 AM CDT [facility] Department of Physical Medicine & Rehabilitation Progress Note Patient: Rosa Li [facility] Record Number: [id number] Date of : 1960 Age: 57 y.o. 11/03/17 1000 Missed Visit Missed Visit Procedure off the floor. Will continue to follow. Patient off the floor at Dialysis. * Héctor Barlow MD - 11/02/2017 10:39 PM CDT GI Attending Note Patient was seen and examined. I discussed the case with the fellow and agree with his history, physical exam and plan with the following additions and revisions. Subjective: No c/o Objective: Blood pressure 96/60, pulse 85, temperature 97.9 ??F (36.6 ??C), resp. rate 20, height 1.575 m (5' 2 ), weight 38.5 kg (84 lb 12.8 oz), SpO2 100 %, not currently . Body mass index is 15.51 kg/(m^2). Physical Examination: General appearance Marked muscle wasting well developed no acute distress Eyes anicteric Skin no jaundice Heart regular rate and rhythm no thrills Abdomen Bowel sounds normoactive soft non-tender, non-distended, no ascites, no masses Extremities no clubbing cyanosis or edema Mental status Alert and oriented. No asterixis Labs/data: Recent Labs Component Name 11/02/17 0646 11/01/17 0629 10/31/17 0512 10/30/17 0553 WBC 8.8 9.1 10.6* 9.7 HGB 7.2* 7.0* 7.7* 7.7* PLT 186 159 137* 102* INR 1.1 1.1 1.2 1.1 Recent Labs Component Name 11/02/17 0646 11/01/17 0629 10/31/17 0404 NA 137 137 138 POTASSIUM 3.6 4.5 5.3* CL 99 102 102 CO2 29 25 21* BUN 18 39* 33* CREATININE 1.1 1.6* 1.3* Recent Labs Component Name 11/02/17 0646 11/01/17 0629 10/31/17 0404 AST 60* 58* 56* ALT 38 33 32 ALKPHOS 473* 493* 512* TBILI 1.4* 1.3* 1.5* ALB 2.9* 2.9* 3.2* MELD-Na score: 10 at 11/02/2017 6:46 AM MELD score: 10 at 11/02/2017 6:46 AM Calculated from: Serum Creatinine: 1.1 mg/dL at 11/02/2017 6:46 AM Serum Sodium: 137 mmol/L at 11/02/2017 6:46 AM Total Bilirubin: 1.4 mg/dL at 11/02/2017 6:46 AM INR(ratio): 1.1 at 11/02/2017 6:46 AM Age: 57 years Impression: 1. HERNANDEZ cirrhosis (pt denies etoh use), mildly elevated MELD 2. Ascites w/o SBP 3. Sepsis with respiratory failure relalted to bilateral pneumonia, abx completed but still on midodrine 4. Pleural effusion ? Related to portal HTN 5. JENNIFER possibly due to sepsis and HRS now on HD 6. HE well controlled 7. Severe malnutrition with BMI 15 8. No evidence of adrenal insufficiency tapering prednisone Plan: 1. HD placement 2. Rehab placement 3. Calorie counts Héctor aBrlow MD * Alejo Agustin MD - 11/02/2017 4:42 PM CDT PT NAME : Rosa Li PT Date of admit : 10/14/2017 8:26 PM Rosa Li??is a 56 y.o.??female??with a ??hx of HERNANDEZ cirrhosis (from cholestatic obstructivedisease s/p cholecystectomy 01/2017)??,??ascites and hypotension. Patient was transferred from OSH on 10/11 with??SOB and sepsis, secondary to pneumonia; ??hyponatremia and JENNIFER (BL Cr 0.8). Patient has been receiving pressors and mechanical ventilation. Limited abdominal US, Rt kidney with increasedechogenicity but no hydronephrosis)- upper part of left kidney appears normal on chest CT- Urine Na<??20, UA suggestive of UTI. TTE 05/2017, EF 55%??. Patient received CRRT while on mechnical ventilation and pressors dependent. The transferred to intermittent HD. ??JENNIFER recovery delayed, patient mac kate limited volume of urine, not appropriately recorded. ? Tunneled HD catheter placed in [facility] on 10/29. Continues intermittent HD ? SUBJECTIVE/ 24 hr Events: Patient feeling fine Denies chest pain or SOB Tunneled HD catheter placed in [facility] on 10/29. HD yesterday, well tolerated. OBJECTIVE: VITALS: Vitals: -------- 11/01/17 11/02/17 11/02/17 11/02/172015 0432 0756 1556 -------- BP: 113/77 110/76 116/72 Pulse: 96 79 80 Resp: 18 20 20 Temp: 97.9 ??F (36.6 ??C) 97.8 ??F (36.6 ??C) 98.1 ??F (36.7 ??C) SpO2: 100% 97% 100% Weight: 38.5 kg (84 lb 12.8 oz) -------- Estimated body mass index is 15.51 kg/(m^2) as calculated from the following: Height as of this encounter: 1.575 m (5' 2 ). Weight as of this encounter: 38.5 kg (84 lb 12.8 oz). I/O: No intake or output data in the 24 hours ending 11/02/17 1643 PHYSICAL EXAM: General: ??female, conscious, pleasant. ??NAD. HEENT: NT/NC, MMM. Neck: no JVD, no LAD, no thyromegaly. Respiratory: lungs clear bilaterally, no crackles/wheezes. Decreased respiratory sounds in right base CVS: RRR, S1 S2 heard, no murmurs. Abdomen: Soft, Non-tender, distended, ascites, bowel sounds audible. Musculoskeletal: ??No joint swelling. No edema Neuro: Responsive, conscious, non focal?? Skin: no rash, no cyanosis. Ecchymosis in upper extremities and chest Access: Tunneled IJV catheter LAB: Recent Labs Component Name 11/02/17 0646 11/01/17 0629 10/31/17 0512 10/30/17 0553 10/29/17 0539 10/29/17 0008 HGB 7.2* 7.0* 7.7* 7.7* 7.6* 7.4* WBC 8.8 9.1 10.6* 9.7 10.6* 10.1 PLT 186 159 137* 102* 64* 59* HCT 22.2* 20.8* 23.8* 23.6* 22.6* 23.0* MCV 101.8* 99.5* 100.4* 99.6* 97.8* 100.4* PT 13.9 14.0 14.6 14.5 - 14.1 INR 1.1 1.1 1.2 1.1 - 1.1 Recent Labs Component Name 11/02/17 0646 11/01/17 0629 10/31/17 0404 10/30/17 0553 10/29/17 0008 10/28/17 0531 10/27/17 0411 10/26/17 2303 10/26/17 1152 10/14/179 09/03/17 BUN 18 39* 33* 22 45* 34* 20 20 18 - - - 17 CREATININE 1.1 1.6* 1.3* 1.0 1.4* 1.3* 0.8 0.7 0.7 - - - - NA 137 137 138 138 139 140 139 139 136 - - - 126* K - - - - - - - - - - 3.4* - 5.2* CL 99 102 102 100 105 105 103 104 102 - - - 90* CO2 29 25 21* 26 20* 24 25 24 26 - - - 25.0 CALCIUM 9.1 9.4 9.6 9.2 9.1 9.2 9.6 9.5 9.1 - - - 8.7* GLU 87 98 123* 121* 127* 167* 131* 208* 210* - - - 121* PHOS 3.4 - - - - 4.0 1.2* 1.1* 2.1* - - - - - = values in this interval not displayed. 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 Recovery delayed, now on intermittent HD via tunneled RIJVcatheter? # Sepsis. Controlled ? #??Liver cirrhosis with ascites. Patient apparently no candidate for liver transplant ? -# Hyponatremia in the setting of JENNIFER + cirrhosis. Controlled ? # Metabolic acidosis. Controlled ? # Thrombocytopenia. Improving ? -# Pneumonia with septic shock. Still on pressors ? Recommendations/Plan: - Patient for HD tomorrow - Continue HD on MWF right via IJV HD catheter - Suggest to supplement nutrition with Nepro as its P and K content is lower, so better for JENNIFER andCKD patients - Suggest to increase Midodrine 15 mg TID - Ongoing plan for outpatient HD ? Patient seen and examined at the bedside, plan of care discussed with the attending, Dr. Warner We will continue to follow the patient with you. Please do not hesitate to contact us with further questions. Alejo Alejo MD. Nephrology Fellow. # [phone]. * Judie Monet, PT - 11/02/2017 3:47 PM CDT 11/02/17 1500 Missed Visit Missed Visit (REFUSED JUST FINISHED WITH OT AND WAS TOO TIRED) * Clovis Pena - 11/02/2017 3:29 PM CDT Wharf Tally Clerk made a follow-up visit. Patient was alert and was with her . They both talked abouttheir renewed marisela after the past few weeks. Wharf Tally Clerk prayed with patient and . They thanked the body specialist for the visit and prayers. 11/02/17 5027 Visit Type Assessment Date 11/02/17 Wharf Tally Clerk Visiting Patient [facility] Care Visit Type Follow Up Encounter Type Patient and Family * Ramona Domingo - 11/02/2017 1:55 PM CDT Dialysis Coordinator followed up with status of approval for OP dialysis. Per [facility] Admissions pending insurance verification and Law Firm Consultant approval at dialysis clinic. Will continue to follow. 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 Recommendation: Recommendation: Patient will benefit from inpatient multidisciplinary therapies Plan: OT Frequency: 5 Times/Week Precautions: Subjective: Patient agreeable. . At start of therapy session, patient found in bed, with bed alarm on and present in room atbedside. . Pain: Patient has 0 out of 10 pain Activities of Daily Living Feeding:not tested Grooming/Bathing: Minimal assist for grooming, UB/LB aleshia/buttock bathing while seated on bsc in shower. Upper Extremity Dressing: Moderate assist to change hospital gown Lower Extremity Dressing: Maximal assist to change bilateral socks Toileting/Transfers: Maximal assist for hygiene post bowel movement, once in bed and twice in shower. Mobility: Assist device: none Supine to/from Sit:Moderate assist Sit to/from Stand: Moderate assist/ Maximal assist Bed to/from Chair: Minimal assist with dance technique with 3-5 steps during multiple transfers (bed to w/c to shower chair, back to w/c to recliner) Balance: Static Sitting: good Dynamic Sitting: good Static Standing: fair Dynamic Standing: fair Activity Tolerance: Patient's activity tolerance: good Cognitive/Perceptual: Alert & orient x 4 with good safety and good command following. Treatment/Therapeutic Exercise: Treatment session this date focused on ADL training Functional transfer training Bed mobility Safety awareness Patient/Family Teaching: Mobility, Self care and Patient voiced understanding of instructions given Equipment Issued: none Update Treatment Plan/Goals : Pt continues to benefit from skilled OT to improve independence with activities of daily living, increase strength, endurance, range of motion and decrease pain. Short Term Goals: Cognition: ??1 step commands and 100% of the time- MET Patient will perform grooming ??At edge of bed and With min assist Patient will perform supine to sit ??With mod assist and X 1 - MET 11/02/17 Patient will perform sit to stand with moderate assist x 1 Patient will tolerate treatment 15 minutes and with fair endurance - MET 11/02/17 [employer]pe Sole Scourer Goal:Patient to discharge to appropriate next level of inpatient care If patient is discharged from the facility, this note serves as a discharge note if further occupational therapy visits did not occur. Following therapy session, patient left in neuro/jazmyn chair, with chair alarm on, with call light within reach, with family in room, with RNMelinda aware and with RN/CP rehab cues written on white board. AUGUSTO Pope * Riaz Warner MD - 11/02/2017 1:21 PM CDT I have seen and examined the patient with house-staff on rounds. I have reviewed the patient's medical history, the resident's/ Fellow's findings on physical examination, and the patient's diagnosis and treatment plan with the resident/ fellow and agree with the information documented with the additions and modifications as listed below. Patient seen and examined this am CC: Sepsis HPI:56 y.o.??female??with a ??hx of HERNANDEZ cirrhosis presented with septic shock and PNA requiring CRRT for ATN Pt now remains HD dependent, tunneled HD cath was placed last week s- no events overnight, tolerated HD well , missed BF and lunch as she was doing HD Physical Exam : Patient Vitals for the past 6 hrs: Temp Pulse Resp BP BP Method 11/02/17 0756 97.8 ??F (36.6 ??C) 79 20 110/76 Automatic General: Alert, cooperative,emaciated, several bruises all over body Head: Normocephalic, Atraumatic. Neck supple, symmetrical, trachea midline,no JVD, large bruise noted on ant neck area Cardiovascular: Regular rate and rhythm, S1, S2 normal, no murmur No lower extremity edema. Respiratory: Clear to auscultation bilaterally. GI: Distended , ascites ++ , non-tender. Neurologic: No asterixis, Alert and oriented x3 Psychiatric: Normal mood/affect.. Investigations: Labs and Imaging reviewed Lab Results Component Value Date WBC 8.8 11/02/2017 RBC 2.18 (L) 11/02/2017 MCV 101.8 (H) 11/02/2017 MCH 33.0 11/02/2017 RDW 23.0 (H) 11/02/2017 Recent Labs Component Name 11/02/17 0646 11/01/17 0629 10/31/17 0404 POTASSIUM 3.6 4.5 5.3* CO2 29 25 21* BUN 18 39* 33* CREATININE 1.1 1.6* 1.3* CALCIUM 9.1 9.4 9.6 Recent Labs Component Name 11/02/17 0646 ALB 2.9* TBILI 1.4* ALT 38 AST 60* Recent Labs Component Name 10/19/17 0425 IRON 33* No results for input(s): PTHINTACT in the last 09640 hours. No results for input(s): [id number] in the last 64297 hours. Recent Labs Component Name 10/15/17 0439 UROBILINUA <2.0 Assessment JENNIFER now HD dependent Septic shock -resolved HERNANDEZ cirrhosis Plan Tolerated HD well yesterday Pt is markedly underweight-39kg and has very low muscle mass Will reduce dialysis frequency to 3hrs twice a week Wednesday-Wednesday , does not have fluid overload issues Pt eating poorly sec to feeling full all the time, consider appetite stimulant, dietary consult, change diet order to Small frequent meals, add nepro shakes tidwm Instead of ensure which are high in K Consider temporary NG tube feeds at night to help pt gain wt increase midodrine to 15 mg tid to prevent ID hypotension , will use Alb prn on HD Contact [facility] patient pathways for OP HD placement - please contact fellow for number ,Pt interested in HD unit in [place] Check phos daily, start renvela if phos >5.5 To do HD in the afternoon shift after lunch Will cont to follow . * Shelley Hassan LMSW - 11/02/2017 12:22 PM CDT SW continues to follow. Shama, claims coordinator at [facility], requested SW send additional clinical information, as this is needed to obtain prior authorization for SNF. FER faxed information; called Shama to confirm Shama received the fax. FER will await update from facility; will notify pt, family and medical team accordingly. Shelley Hassan LMSW 11/02/2017 12:23 PM [id number] * Ramona Domingo - 11/02/2017 11:19 AM CDT Liaison is aware of patient admission. Liaison met with new dialysis patient at which time liaison educated patient on various treatment options, dialysis facilities. Patient elected to attend [facility] [address] [phone] for outpatient dialysis upon discharge. Dialysis Liaison submitted clinical documentation to the outpatient dialysis facility for acceptance and admission approval and is currently awaiting an approval. 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 Hospital Day: 19 For hospital course please see end of the note Subjective: No acute events overnight, no complains this morning. Unclear is cirrhosis is secondary to HERNANDEZ since patient has never been obese or have other risk factors, ceruloplasmin was low but cant measure 24 hr copper since anuric. [facility]mology for Anastasiya Makeda ring evaluation. Tolerated HD yesterday, midodrine was increased to 15 Pending placement Objective: Patient Vitals for the past 8 hrs: Weight 11/02/17 0432 38.5 kg (84 lb 12.8 oz) Intake/Output Summary (Last 24 hours) at 11/02/17 0705 Last data filed at 11/01/17 1529 Gross per 24 hour Intake 0 ml Output 600 ml Net -600 ml General - Appears older than stated age, NAD, cachetic HEENT - NC/AT, PERRL, EOMI, clear conjunctivae (wang removed) Neck - Supple, no LAD, no JVD, significant midline bruise Chest - CTAB no w/c/r, R side tunneled cathter CV - Holosystolic murmur, no radiations, 3/6 Abdomen - Soft, distended, wave sign (significant ascites) not tender Extremities - No peripheral edema Skin - petichiae/ecchymoses in bilateral upper extremities Neurologic - A&O x 3, CN II-XII intact, 2/5 UE and LE strength Psych - Appropriate mood and affect Data Review Recent Labs Component Name 11/01/17 0629 10/31/17 0512 10/30/17 0553 WBC 9.1 10.6* 9.7 HGB 7.0* 7.7* 7.7* HCT 20.8* 23.8* 23.6* PLT 159 137* 102* MCV 99.5* 100.4* 99.6* Recent Labs Component Name 11/01/17 0629 10/31/17 0404 10/30/17 0553 10/28/17 0531 10/27/17 0411 10/26/17 2303 CALCIUM 9.4 9.6 9.2 - 9.2 9.6 9.5 PHOS - - - - 4.0 1.2* 1.1* - = values in this interval not displayed. Recent Labs Component Name 11/01/17 0629 10/31/17 0404 10/30/17 0553 05/31223809/03/17 NA 137 138 138 - - - 126* K - - - - 3.4* - 5.2* CL 102 102 100 - - - 90* CO2 25 21* 26 - - - 25.0 BUN 39* 33* 22 - - - 17 CREATININE 1.6* 1.3* 1.0 - - - - GLU 98 123* 121* - - - 121* - = values in this interval not displayed. Recent Labs Component Name 11/01/17 0629 10/31/17 0404 10/30/17 0553 10/29/17 0008 10/25/17 0838 08/07/17 0201 PROT 5.5* 5.8* 5.6* 5.1* 5.1* - - - - ALB 2.9* 3.2* 3.3* 3.3* 3.3* - - - - ALKPHOS 493* 512* 522* 460* 460* - - - - AST 58* 56* 51* 40* 40* - - - - ALT 33 32 28 22 22 - - - - TBILI 1.3* 1.5* 1.8* 1.4* 1.4* - - - - DBILI - - - 0.7* - 0.9* - 0.3 - = values in this interval not displayed. Recent Labs Component Name 11/01/17 0629 10/31/17 0512 10/30/17 0553 10/29/17 0008 10/28/17 0531 10/27/17 0411 PT 14.0 14.6 14.5 14.1 15.6* 15.0* INR 1.1 1.2 1.1 1.1 1.3 1.2 PTT - - - 30.3 37.4 39.6* Recent Labs Component Name 10/27/17 0411 08/07/17 0859 08/07/17 0142 TROPONINI 0.070* <0.010 0.017 MELDScore MELD-Na score: 13 at 11/01/2017 6:29 AM MELD score: 13 at 11/01/2017 6:29 AM Calculated from: Serum Creatinine: 1.6 mg/dL at 11/01/2017 6:29 AM Serum Sodium: 137 mmol/L at 11/01/2017 6:29 AM Total Bilirubin: 1.3 mg/dL at 11/01/2017 6:29 AM INR(ratio): 1.1 at 11/01/2017 6:29 AM Age: 57 years Current Medications hydrocortisone 10 mg Oral QDAY heparin 4,100 Units Intracatheter post-Procedure multiple midodrine 15 mg Oral q8h insulin aspart 0-6 Units Subcutaneous 4X/day - AC & HS lactulose 10 g Oral BID 0900 and 1500 pantoprazole EC 40 mg Oral QDAY QUEtiapine 25 mg Oral AT BEDTIME camphor-menthol ??? 0.9% NaCl ??? glucose (Diabetic Use) ??? dextrose ??? glucagon ??? albuterol-ipratropium Microbiology ?? Blood culture NG ?? Sputum NG ?? Urine NG ?? Imaging ?? CT chest 10.15.2017 1. No evidence of pulmonary embolism, however, [...] hepatic segment 8 likely representing a hemangioma. ?? Echocardiogram 10/27 Sinus rhythm. The left ventricular cavity size, wall thickness, systolic and diastolic function are normal/hyperdynamic with no regional wall motion abnormalities present. EF 81%. Right heart has normalized compared to prior ECHO. Infundibular borderline pulmonary stenosis due to hyperdynamic RV Assessment/Plan: ?? 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 Severe deconditioning Malnutrition, significant loss of muscle mass Likely secondary to critically ill and no p.o intake PT/OT : Rehab placement ?Encephalopathy Multifactorial: sepsis, hepatic encephalopathy, delirium -Continue Lactulose to target 3-4 bm/d -Continue Seroquel -Neuro checks ?Hypotension Underlying cirrhosis Adrenal insufficiency ruled out with stim test - Taper hydrocortisone down - decrease to 5mg tomorrow ??-Continue Midodrine 15mg TID ?? Cirrhosis -MELD-Na Score 11----24 with dialysis -Etiology HERNANDEZ , although concern for [place] due to low ceruloplasmin- unable to do 24 copper- Ophthalmology KF ring -Decompensated when HE, ascites or infection -HE : continue lactulose -EV : no EGD in system -Ascites: LVP Q2 w as outpatient, not on diuretics -SBP : none prior -HCC: none seen on CT 10/2017 -Transplant : not a candidate: severe deconditioning and smoking ? Cholestasis Ischemic cholangiopathy from HoTN, vs congestive hepatopathy transient while RV dysfunction vs sepsis vs DILI AP ~700, elevated GGT and normal Tbili , Non dilated bile ducts on CT 10/19 -Monitor CMP ?? Septic shock - Resolved From community acquired pneumonia Completed antibiotic tx Zosyn 10/24, off pressors ? Acute hypoxic respiratory failure - Resolved Secondary to CAP Intubated on 10/14 extubated on 10/25 Completed antibiotic 10/24 -Duonebs Q4h prn ? Pleural effusion Thoracentesis 10/15 - transudative Likely hepatic hydrothorax Monitor FEN: Keep K~4, Phos~3, and Mg~2 Dispo: Rehab pending Code status: TSL 1 Andrew Ruiz MD PGY-2, Internal Medicine 11/02/2017, 7:05 AM Brief Hospital Course ?? Ms. 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 On admission to [facility] admission was found to have bilateral pneumonia as the source of septic shock, was continued on pressors, antibiotics were switched to vancomycin and zosyn, thoracentesis result were consistent with a transudate, completed antibiotic regimen with Zosyn on 10/23 , pressors were disc ontinued on 10/24 and was successfully extubated on 06.11, currently on 2 liters NC. MICU stay was complicated by the following: -Encephalopathy attributed to sepsis and HE, now stable with lactulose and seroquel -Oliguric JENNIFER, max Cr 2.0 anuric and AGMA, was attributed to HRS triggered by sepsis, CRRT started on 10/19, stopped on 10/26 without signs of renal recovery, nephrology plans to place permacath and start HD. -Hyponatremia down to 115 mEq attributed to SIADH and underlying cirrhosis, improved with fluid restriction and CRRT,now 139 mEq. ?? 10/27 transfer to floor 10/28 IR permacath placed 6.15 started HD 6.16 started mechanical soft diet Associated attestation - Héctor Barlow MD - 11/02/2017 10:45 PM CDT Attending note: I personally saw and examined this patient and discussed the plan of care with the fellow/resident.I agree with the content of the resident/fellow note with the following additions and revisions. Please see my separate note for my evaluation. Héctor Barlow MD * Christina Fischer RN - 11/02/2017 4:52 AM CDT Problem: Tissue Injury Due to External Forces of Pressure, Friction, and Shear Goal: Maintain and Improve Tissue Tolerance to Pressure Outcome: Ongoing Pt using 30 degreee HOB or less to decrease pain to sacral area, excoriation healing to perineal area, coccyx wound granulating. * Christina Fischer RN - 11/02/2017 3:30 AM CDT Pt tearful, wants to go home. Had a long discussion about improvements, up to chair x2 first time yesterday, healing excoriated areas, uninterrupted sleep for 2 nights(4-5hr intervals). Remained tearful, wants a shower-instructed to ask OT, will need to cover HD cath. * Tashia Brown MD - 11/01/2017 5:10 PM CDT Stopped by twice in attempt to see patient - pt was in dialysis both times. Will stop by room tomorrow to evaluate. Tashia Brown MD * Alejo Agustin MD - 11/01/2017 3:48 PM CDT PT NAME : Rosa Li PT Date of admit : 10/14/2017 8:26 PM Rosa Li??is a 56 y.o.??female??with a ??hx of HERNANDEZ cirrhosis (from cholestatic obstructivedisease s/p cholecystectomy 01/2017)??,??ascites and hypotension. Patient was transferred from OSH on 10/11 with??SOB and sepsis, secondary to pneumonia; ??hyponatremia and JENNIFER (BL Cr 0.8). Patient has been receiving pressors and mechanical ventilation. Limited abdominal US, Rt kidney with increasedechogenicity but no hydronephrosis)- upper part of left kidney appears normal on chest CT- Urine Na<??20, UA suggestive of UTI. TTE 05/2017, EF 55%??. Patient received CRRT while on mechnical ventilation and pressors dependent. The transferred to intermittent HD. JENNIFER recovery delayed, patient aldo es limited volume of urine, not appropriately recorded. ?? Tunneled HD catheter placed in RJ on 10/29. Continues intermittent HD ? SUBJECTIVE/ 24 hr Events: Patient feeling Denies chest pain or SOB Tunneled HD catheter placed in RJV on 10/29. HD today ?? OBJECTIVE: VITALS: Vitals: 11/01/17 11/01/17 11/01/17 11/01/17 1430 1500 1524 1529 BP: 97/65 102/70 100/67 105/69 Pulse: 98 95 99 91 Resp: Temp: 98 ??F (36.7 ??C) SpO2: 100% Weight: Estimated body mass index is 15.51 kg/(m^2) as calculated from the following: Height as of this encounter: 1.575 m (5' 2 ). Weight as of this encounter: 38.5 kg (84 lb 12.8 oz). I/O: Intake/Output Summary (Last 24 hours) at 11/01/17 1548 Last data filed at 11/01/17 1529 Gross per 24 hour Intake 0 ml Output 600 ml Net -600 ml PHYSICAL EXAM: General: ??female,sitting in chair, conscious, pleasant. ??NAD. HEENT: NT/NC, MMM. Neck: no JVD, no LAD, no thyromegaly. Respiratory: lungs clear bilaterally, no crackles/wheezes. Decreased respiratory sounds in right base CVS: RRR, S1 S2 heard, no murmurs. Abdomen: Soft, Non-tender, non-distended, abdomen wall edema, bowel sounds audible. Musculoskeletal: ??No joint swelling. LE pedal edema decreasing. Generalized decreased in muscle mass Neuro: Responsive, conscious, non focal?? Skin: no rash, no cyanosis. Echuimosis in upper extremities and chest Access: Tunneled IJV catheter LAB: Recent Labs Component Name 11/01/17 0629 10/31/17 0512 10/30/17 0553 10/29/17 0539 10/29/17 0008 10/28/17 0531 HGB 7.0* 7.7* 7.7* 7.6* 7.4* - 6.9* WBC 9.1 10.6* 9.7 10.6* 10.1 - 9.7 PLT 159 137* 102* 64* 59* - 38* HCT 20.8* 23.8* 23.6* 22.6* 23.0* - 21.1* MCV 99.5* 100.4* 99.6* 97.8* 100.4* - 99.1* PT 14.0 14.6 14.5 - 14.1 - 15.6* INR 1.1 1.2 1.1 - 1.1 - 1.3 - = values in this interval not displayed. Recent Labs Component Name 11/01/17 0629 10/31/17 0404 10/30/17 0553 10/29/17 0008 10/28/17 0531 10/27/17 0411 10/26/17 2303 10/26/17 1152 10/26/17 0424 10/14/179 09/03/17 BUN 39* 33* 22 45* 34* 20 - - - 17 CREATININE 1.6* 1.3* 1.0 1.4* 1.3* 0.8 0.7 0.7 0.7 0.7 - - - - NA 137 138 138 139 140 139 139 136 139 139 - - - 126* K - - - - - - - - - - 3.4* - 5.2* CL 102 102 100 105 105 103 104 102 103 103 - - - 90* CO2 25 21* 26 20* 24 25 24 26 24 24 - - - 25.0 CALCIUM 9.4 9.6 9.2 9.1 9.2 9.6 9.5 9.1 9.4 9.4 - - - 8.7* GLU 98 123* 121* 127* 167* 131* 208* 210* 131* 131* - - - 121* PHOS - - - - 4.0 1.2* 1.1* 2.1* 2.3 - - - - - = values in this interval not displayed. 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 Recovery delayed, now on intermittent HD via tunneled RIJVcatheter ? # Sepsis. Controlled ? #??Liver cirrhosis with ascites. Patient apparently no candidate for liver transplant ? -# Hyponatremia in the setting of JENNIFER + cirrhosis. Controlled ? # Metabolic acidosis. Controlled ? # Thrombocytopenia. Improving ? -# Pneumonia with septic shock. Still on pressors ? Recommendations/Plan: - Patient for HD today - Continue HD on MWF right via IJV HD catheter - Suggest to increase Midodrine 15 mg TID ? Patient seen and examined at the bedside, plan of care discussed with the attending, Dr. Warner We will continue to follow the patient with you. Please do not hesitate to contact us with further questions. Alejo Alejo MD. Nephrology Fellow. # [phone]. * Riaz Warner MD - 11/01/2017 2:57 PM CDT I have seen and examined the patient with house-staff on rounds. I have reviewed the patient's medical history, the resident's/ Fellow's findings on physical examination, and the patient's diagnosis and treatment plan with the resident/ fellow and agree with the information documented with the additions and modifications as listed below. Patient seen and examined this am CC: Sepsis HPI:56 y.o.??female??with a ??hx of HERNANDEZ cirrhosis presented with septic shock and PNA requiring CRRT for ATN Pt now remains HD dependent, tunneled HD cath was placed last week s- no events overnight, not dizzy during HD treatments , doing PT this am , still feeling weak Physical Exam : Patient Vitals for the past 6 hrs: Temp Pulse Resp BP BP Method 10/31/177 97.8 ??F (36.6 ??C) 87 18 103/63 Automatic General: Alert, cooperative,emaciated, several bruises all over body Head: Normocephalic, Atraumatic. Neck supple, symmetrical, trachea midline,no JVD, large bruise noted on ant neck area Cardiovascular: Regular rate and rhythm, S1, S2 normal, no murmur No lower extremity edema. Respiratory: Clear to auscultation bilaterally. GI: Distended , ascites ++ , non-tender. Neurologic: No asterixis, Alert and oriented x3 Psychiatric: Normal mood/affect.. Investigations: Labs and Imaging reviewed Lab Results Component Value Date WBC 10.6 (H) 10/31/2017 RBC 2.37 (L) 10/31/2017 MCV 100.4 (H) 10/31/2017 MCH 32.5 10/31/2017 RDW 23.7 (H) 10/31/2017 Recent Labs Component Name 10/31/17 0404 10/30/17 0553 10/29/17 0008 POTASSIUM 5.3* 2.9* 3.5 CO2 21* 26 20* BUN 33* 22 45* CREATININE 1.3* 1.0 1.4* CALCIUM 9.6 9.2 9.1 Recent Labs Component Name 10/31/17 0404 ALB 3.2* TBILI 1.5* ALT 32 AST 56* Recent Labs Component Name 10/19/17 0425 IRON 33* No results for input(s): PTHINTACT in the last 03060 hours. No results for input(s): [id number] in the last 90534 hours. Recent Labs Component Name 10/15/17 0439 UROBILINUA <2.0 Assessment JENNIFER now HD dependent Septic shock -resolved HERNANDEZ cirrhosis Plan Cont HD MWF schedule , HD today for 3hrs, UF of 500 cc as BP tolerates BP remain soft, increase midodrine to 15 mg tid to prevent ID hypotension , will use Alb prn on HD Contact Lesa With [facility] patient pathways for OP HD placement - please contact fellow for number Check phos daily, start renvela if phos >5.5 Start Nepro shakes tid for protein malnutrition Will cont to follow . * Khadijah Bradshaw, RD/LD - 11/01/2017 2:35 PM CDT Nutrition Re-Assessment Nutrition Recommendations: Continue current diet. Comments: Follow up for calorie count today. Pt was moved to a different floor over the weekend andcalorie count sheets did not move with pt. PO intake poor, <30% of meals. Pt and are very frustrated with food at the moment. States they are getting conflicting reports from different physicians. They have been told that the patient can eat whatever she wants and then sometimes is told to avoid certain foods. Pt's current diet order only has dysphagia 2 restriction. brings some foods from home. Pt does not like Ensure but is drinking [employer] brand shakes (180 kcal, 10 gm protein) a few times per day. Proteinex on pt's tray this morning, rec'd to drink these (72 kcal, 18 gm p rotein). Obtained food preferences. LBM 10/31. Expected d/c soon. Assessment: Med/Surg History and Clinical Diagnoses: HPI: septic shock, resp failure; PMH: HERNANDEZ cirrhosis, ascites Diet order accuracy Current diet order: Dysphagia 2 Ground/Minced/Mech Altered Current tube feeding order: n/a Nutrition recommendation: agree with current nutrition order P.O.Intake for the past 48 hrs:% Meal Taken Av % Min: 5 % Max: 30 % GI Concerns: None Chewing/Swallowing: None Admission weight: Weight: 100 lb 12 oz (45.7 kg) (10/14/17 4789) Filed Wts: 10/25/17 0500 10/30/17 0326 10/31/17 0515 11/01/17 0520 Weight: 108 lb 0.4 oz (49 kg) 108 lb 3.2 oz (49.1 kg) 91 lb 11.2 oz (41.6 kg) 84 lb 12.8 oz (38.5 kg) WT Comments: monitoring IBW/lb (Calculated) Female: 110 Laboratory values reviewed. Medications noted. Skin/Wound: PU - coccyx; wound to Lt arm, Rt hip Estimated Energy Needs: KCAL: 1106-7136 (35-45 kcal/kg), underweight Protein (g): 68-88 (20% estimated kcal needs) Fluid (ml): other (comment) (UOP + 1000 ml) Needs based on: Kcal/kg- (Comment) Recommended Access Route: PO Nutrition Care Process (2) Nutrition Diagnostic Statement (2): Inadequate energy intake related to:: decreased appetite as evidenced by:: oral intake less than .. (50%) Nutrition Diagnostic Statement Progress: Nutrition problem continues Nutrition Intervention: Meals and snacks: Monitoring: PO intake, labs, weight, BM Evaluation: Nutrition Goal: Total intake will meet estimated nutrient needs Nutrition Goal Timeframe: Ongoing Nutrition Goal Progress: Continue with current goal Khadijah Bradshaw RD/NATHAN * Shelley Hassan LMSW - 11/01/2017 2:02 PM CDT FER spoke with Shama, clinical liaison with [facility], who stated they could tentatively accept pt pending insurance prior-auth. FER sent referral to dialysis coordinator, Ramona Domingo, to further assist with setting up dialysis post-discharge. SW to follow. Shelley Hassan LMSW 11/01/2017 2:04 PM [id number] * Shelley Hassan LMSW - 11/01/2017 11:16 AM CDT FER met with pt and pt's at bedside to discuss SNF preferences. Pt and 's first choice is [facility], as it is close to home. Devon from [facility] contacted this SW to inquire if he could meet the pt at bedside; SW stated yes, as the facility was pt's first preference. FER also called the facility to determine if pt's insurance was in network. Shama in admissions states she needs to receive referral/demographic sheet to verify insurance. FER faxed referralagain. SW will need to find an accepting facility first before dialysis can be coordinated. SW will contact Ramona Domingo, the dialysis coordinator, one pt has an accepting facility. SW to follow. Shelley Hassan LMSW 11/01/2017 11:30 AM [id number] * Judie Monet, PT - 11/01/2017 11:10 AM CDT [facility] Physical Medicine and Rehabilitation PhysicalTherapy Progress Note Patient: Rosa Li Med Record Number: [id number] Date of : 1960 Age: 57 y.o. Discharge Recommendation: Recommendation: Patient will benefit from inpatient multidisciplinary therapies Plan: Treatment/Interventions: Functional transfer training;LE strengthening/ROM;Endurance training;Bed mobility;Gait training PT Frequency: 5 Times/Week Subjective: I'M TIRED Patient currently using Wheeled Walker and needs equipment if d/c home. Mental Status: ALERT O X 3. SOMEWHAT TEARFUL AT TIMES At start of therapy session, patient found in patient bedside chair and with chair alarm on. Pain: Patient has GENERALIZED C/O PAIN Nurse notified. Weight Bearing Status: WBAT Mobility: Rolling: not tested Supine to Sit:not tested Sit to Supine: Moderate assist Sit to Stand:Moderate assist of 2 Bed to Chair: Moderate assist of 2 Gait: Device:Wheeled Walker Assistance: Moderate assist of 2 Distance: PT TOOK SEVERAL STEPS CHAIR TO BED WITH WHEELED WALKER Deviations: Oxygen Used: no Balance: Static Sitting: good Dynamic sitting: not tested Static Standing: PT HELD TO WALKER OR 2 PEOPLE WITH STANDING Dynamic Standing: not tested Stairs : Vitals: Activity Tolerance: Patient's activity tolerance: fair minus Treatment/therapeutic Exercise: PT SEEN FOR A/AAROM EX'S BILAT LE'S AND MOBILITY ABOVE Patient/Family Teaching: Exercise and Mobility Patient demonstrated Good understanding of instructions given. Short Term Goals: Goal Formation ??With patient/family Patient will transfer supine to/from sit ?With minimal assist Patient will perform rolling ??With minimal assist Patient will achieve sitting balance ?Fair Patient will follow one step commands ??100% Crepe Sole Scourer Goal: Patient to discharge to appropriate next level of inpatient care. Update Treatment Plan: CONT PER PLAN. GOALS REMAIN APPROPRIATE If patient is discharged from the facility, this note serves as a discharge note if further physical therapy visits did not occur. Following therapy session, patient left in bed, with call light within reach and with family in room. Judie Monet, PT 11/01/2017 * Héctor Barlow MD - 11/01/2017 10:05 AM CDT GI Attending Note Patient was seen and examined. I discussed the case with the fellow and agree with his history, physical exam and plan with the following additions and revisions. Subjective: No c/ Objective: Blood pressure 106/65, pulse 85, temperature 97.8 ??F (36.6 ??C), resp. rate 19, height 1.575 m (5'2 ), weight 38.5 kg (84 lb 12.8 oz), SpO2 100 %, not currently . Body mass index is 15.51 kg/(m^2). Physical Examination: General appearance Marked muscle wasting well developed no acute distress Eyes anicteric Skin no jaundice Heart regular rate and rhythm no thrills Abdomen Bowel sounds normoactive soft non-tender, non-distended, no ascites, no masses Extremities no clubbing cyanosis or edema Mental status Alert and oriented. No asterixis Labs/data: Recent Labs Component Name 11/01/17 0629 10/31/17 0512 10/30/17 0553 10/29/17 0539 WBC 9.1 10.6* 9.7 10.6* HGB 7.0* 7.7* 7.7* 7.6* PLT 159 137* 102* 64* INR 1.1 1.2 1.1 - Recent Labs Component Name 11/01/17 0629 10/31/17 0404 10/30/17 0553 NA 137 138 138 POTASSIUM 4.5 5.3* 2.9* CL 102 102 100 CO2 25 21* 26 BUN 39* 33* 22 CREATININE 1.6* 1.3* 1.0 Recent Labs Component Name 11/01/17 0629 10/31/17 0404 10/30/17 0553 AST 58* 56* 51* ALT 33 32 28 ALKPHOS 493* 512* 522* TBILI 1.3* 1.5* 1.8* ALB 2.9* 3.2* 3.3* MELD-Na score: 13 at 11/01/2017 6:29 AM MELD score: 13 at 11/01/2017 6:29 AM Calculated from: Serum Creatinine: 1.6 mg/dL at 11/01/2017 6:29 AM Serum Sodium: 137 mmol/L at 11/01/2017 6:29 AM Total Bilirubin: 1.3 mg/dL at 11/01/2017 6:29 AM INR(ratio): 1.1 at 11/01/2017 6:29 AM Age: 57 years Impression: 1. HERNANDEZ cirrhosis (pt denies etoh use), mildly elevated MELD 2. Ascites w/o SBP 3. Sepsis with respiratory failure relalted to bilateral pneumonia, abx completed but still on midodrine 4. Pleural effusion ? Related to portal HTN 5. JENNIFER possibly due to sepsis and HRS now on HD 6. HE well controlled 7. Severe malnutrition with BMI 15 8. No evidence of adrenal insufficiency tapering prednisone Plan: 1. HD placement 2. Rehab placement 3. Calorie counts Héctor Barlow MD * Twila Rose COTA - 11/01/2017 9:25 AM CDT [facility] Physical Medicine and Rehabilitation Occupational Therapy Progress Note Patient: Rosa Li Med Record Number: [id number] Date of : 1960 Age: 57 y.o. Recommendation: Recommendation: Patient will benefit from inpatient multidisciplinary therapies Plan: OT Frequency: 5 Times/Week Precautions: Subjective: Patient agreeable. At start of therapy session, patient found in bed and with bed alarm on. Pain: Patient has 0 out of 10 pain Activities of Daily Living Feeding:not tested Grooming/Bathing: Stand By Assist / Independent to wash face/hands while seated in chair Upper Extremity Dressing: declined Lower Extremity Dressing: Maximal assist to don pull up underwear while supine in bed; SBA to don Rsock while seated on EOB and Mod assist to don Left sock while seated on EOB Toileting/Transfers: Dependent to remove bedpan and with hygiene after BM Mobility: Assist device: none Supine to/from Sit:Minimal assist Sit to/from Stand: Moderate assist of 1 Bed to/from Chair: Maximal assist of 1 for pivot Balance: Static Sitting: good Dynamic Sitting: good Static Standing: poor Dynamic Standing: not tested Activity Tolerance: Patient's activity tolerance: good. Patient needed extra time for bed mobility, (getting to EOB), and donning Right sock. Patient attempted to do Left sock but could not bring L LE onto surface of the bed. Cognitive/Perceptual: Alert & orient x 4 with good safety and good command following. Treatment/Therapeutic Exercise: Treatment session this date focused on ADL training Functional transfer training Bed mobility Safety awareness Patient/Family Teaching: Mobility and Self care Equipment Issued: none Update Treatment Plan/Goals : Pt continues to benefit from skilled OT to improve independence with activities of daily living, increase strength, endurance, range of motion and decrease pain. Short Term Goals: Cognition: ??1 step commands and 100% of the time- MET Patient will perform grooming ??At edge of bed and With min assist Patient will perform supine to sit ??With mod assist and X 1 Patient will perform sit to stand with moderate assist x 1 Patient will tolerate treatment 15 minutes and with fair endurance ?? Retirement Goal:Patient to discharge to appropriate next level of inpatient care If patient is discharged from the facility, this note serves as a discharge note if further occupational therapy visits did not occur. Following therapy session, patient left in patient bedside chair, with chair alarm on, with call light within reach, with family in room and with RN/CP rehab cues written on white board. AUGUSTO Pope * Andrew Ruiz MD - 11/01/2017 6:47 AM CDT Vick Progress Note 11/01/2017, 6:47 AM Patient: Rosa Li Room: [facility]/922- Admit Date: 10/14/2017. Hospital Day: 18 For hospital course please see end of the note Subjective: No acute events overnight This morning feels so much better, was able to have a good sleep at night, feels stronger and asking for mashed potato, has been able to eat soft diet. Significantly better, will need placement, referrals sent. Objective: Patient Vitals for the past 8 hrs: BP Temp Pulse Resp SpO2 Height Weight 11/01/17 0520 - - - - - 1.575 m (5' 2 ) 38.5 kg (84 lb 12.8 oz) 11/01/17 0415 96/67 97.9 ??F (36.6 ??C) 101 22 100 % - - 11/01/17 0029 97/61 98.2 ??F (36.8 ??C) 86 18 97 % - - Intake/Output Summary (Last 24 hours) at 11/01/17 0647 Last data filed at 10/31/17 1452 Gross per 24 hour Intake 240 ml Output 0 ml Net 240 ml General - Appears older than stated age, NAD, cachetic HEENT - NC/AT, PERRL, EOMI, clear conjunctivae (wang removed) Neck - Supple, no LAD, no JVD, significant midline bruise Chest - CTAB no w/c/r, R side tunneled cathter CV - Holosystolic murmur, no radiations, 3/6 Abdomen - Soft, distended, wave sign (significant ascites) not tender Extremities - No peripheral edema Skin - petichiae/ecchymoses in bilateral upper extremities Neurologic - A&O x 3, CN II-XII intact, 2/5 UE and LE strength Psych - Appropriate mood and affect Data Review Recent Labs Component Name 10/31/17 0512 10/30/17 0553 10/29/17 0539 WBC 10.6* 9.7 10.6* HGB 7.7* 7.7* 7.6* HCT 23.8* 23.6* 22.6* PLT 137* 102* 64* MCV 100.4* 99.6* 97.8* Recent Labs Component Name 10/31/17 0404 10/30/17 0553 10/29/17 0008 10/28/17 0531 10/27/17 0411 10/26/17 2303 CALCIUM 9.6 9.2 9.1 9.2 9.6 9.5 PHOS - - - 4.0 1.2* 1.1* Recent Labs Component Name 10/31/17 0404 10/30/17 0553 10/29/17 0008 10/14/17 2239 09/03/17 NA 138 138 139 - - - 126* K - - - - 3.4* - 5.2* CL 102 100 105 - - - 90* CO2 21* 26 20* - - - 25.0 BUN 33* 22 45* - - - 17 CREATININE 1.3* 1.0 1.4* - - - - GLU 123* 121* 127* - - - 121* - = values in this interval not displayed. Recent Labs Component Name 10/31/17 0404 10/30/17 0553 10/29/17 0008 10/25/17 0838 08/07/17 0201 PROT 5.8* 5.6* 5.1* 5.1* - - - - ALB 3.2* 3.3* 3.3* 3.3* - - - - ALKPHOS 512* 522* 460* 460* - - - - AST 56* 51* 40* 40* - - - - ALT 32 28 22 22 - - - - TBILI 1.5* 1.8* 1.4* 1.4* - - - - DBILI - - 0.7* - 0.9* - 0.3 - = values in this interval not displayed. Recent Labs Component Name 10/31/17 0512 10/30/17 0553 10/29/17 0008 10/28/17 0531 10/27/17 0411 PT 14.6 14.5 14.1 15.6* 15.0* INR 1.2 1.1 1.1 1.3 1.2 PTT - - 30.3 37.4 39.6* Recent Labs Component Name 10/27/17 0411 08/07/17 0859 08/07/17 0142 TROPONINI 0.070* <0.010 0.017 MELDScore MELD-Na score: 13 at 10/31/2017 5:12 AM MELD score: 13 at 10/31/2017 5:12 AM Calculated from: Serum Creatinine: 1.3 mg/dL at 10/31/2017 4:04 AM Serum Sodium: 138 mmol/L (Rounded to 137) at 10/31/2017 4:04 AM Total Bilirubin: 1.5 mg/dL at 10/31/2017 4:04 AM INR(ratio): 1.2 at 10/31/2017 5:12 AM Age: 57 years Current Medications hydrocortisone 10 mg Oral QDAY lactulose 10 g Oral BID 0900 and 1500 pantoprazole EC 40 mg Oral QDAY QUEtiapine 25 mg Oral AT BEDTIME midodrine 10 mg Oral q8h insulin aspart 0-6 Units Subcutaneous q6h 0.9% NaCl ??? glucose (Diabetic Use) ??? dextrose ??? glucagon ??? albuterol-ipratropium Microbiology ?? Blood culture NG ?? Sputum NG ?? Urine NG ?? Imaging ?? CT chest 10.15.2017 1. No evidence of pulmonary embolism, however, [...] hepatic segment 8 likely representing a hemangioma. ?? Echocardiogram 10/27 Sinus rhythm. The left ventricular cavity size, wall thickness, systolic and diastolic function are normal/hyperdynamic with no regional wall motion abnormalities present. EF 81%. Right heart has normalized compared to prior ECHO. Infundibular borderline pulmonary stenosis due to hyperdynamic RV Assessment/Plan: ?? Dysphagia Likely oropharyngeal form prolonged intubation Modified barium swallow wnl 10/29 Started on mechanical diet Calorie count by dietary ?Oliguric JENNIFER Etiology unclear, likely HRS in the setting of underlying cirrhosis triggered by sepsis Requiring renal replacement therapy since 10/15, CRRT stopped on 10/26 No evidence of renal recovery Permacath and started on HD on 10/28 Will need HD outpatient set up ?? Severe deconditioning Malnutrition, significant loss of muscle mass Likely secondary to critically ill and no p.o intake Although since May she complained of severe weight loss, improved with food enzymes PT/OT : Rehab placement ?Encephalopathy Multifactorial: sepsis, hepatic encephalopathy, delirium -Continue Lactulose to target 3-4 bm/d -Continue Seroquel -Neuro checks ?Hypotension Underlying cirrhosis +/- adrenal insufficiency? Adrenal insufficiency ruled out with stim test - Taper hydrocortisone down - decreased to 10mg today ??-Continue Midodrine 10mg TID ?? HERNANDEZ Cirrhosis -MELD-Na Score 11----24 with dialysis -Etiology HERNANDEZ (rest of w/u negative) -Decompensated when HE, ascites or infection -HE : continue lactulose -EV : no EGD in system -Ascites: LVP Q2 w as outpatient, not on diuretics- -SBP : none prior -HCC: none seen on CT 10/2017 -Transplant : not a candidate: severe deconditioning and smoking ? Cholestasis Ischemic cholangiopathy from HoTN, vs congestive hepatopathy transient while RV dysfunction vs sepsis vs DILI AP ~700, elevated GGT and normal Tbili Non dilated bile ducts on CT 10/19 -Monitor CMP ?? Septic shock - Resolved From community acquired pneumonia Completed antibiotic tx Zosyn 10/24, off pressors ? Acute hypoxic respiratory failure - Resolved Secondary to CAP Intubated on 10/14 extubated on 10/25 Completed antibiotic 10/24 -Duonebs Q4h prn ? Pleural effusion Thoracentesis 10/15 - transudative Likely hepatic hydrothorax Monitor FEN: Keep K~4, Phos~3, and Mg~2 Dispo: Rehab pending Code status: TSL 1 Andrew Ruiz MD PGY-2, Internal Medicine 11/01/2017, 6:47 AM Brief Hospital Course ?? Ms. 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 On admission to [facility] admission was found to have bilateral pneumonia as the source of septic shock, was continued on pressors, antibiotics were switched to vancomycin and zosyn, thoracentesis result were consistent with a transudate, completed antibiotic regimen with Zosyn on 10/23 , pressors were disc ontinued on 10/24 and was successfully extubated on 10.25, currently on 2 liters NC. MICU stay was complicated by the following: -Encephalopathy attributed to sepsis and HE, now stable with lactulose and seroquel -Oliguric JENNIFER, max Cr 2.0 anuric and AGMA, was attributed to HRS triggered by sepsis, CRRT started on 10/19, stopped on 10/26 without signs of renal recovery, nephrology plans to place permacath and start HD. -Hyponatremia down to 115 mEq attributed to SIADH and underlying cirrhosis, improved with fluid restriction and CRRT,now 139 mEq. ?? 10/27 transfer to floor 10/28 IR permacath placed 6.15 started HD 6.16 started mechanical soft diet * Christina Fischer RN - 11/01/2017 2:07 AM CDT Problem: Daily Care Goal: Daily care needs are met Pt very weak, can utilize UE, feed self small bites * Alejo Agustin MD - 10/31/2017 1:38 PM CDT PT NAME : Rosa Li PT Date of admit : 10/14/2017 8:26 PM Rosa Li??is a 56 y.o.??female??with a ??hx of HERNANDEZ cirrhosis (from cholestatic obstructivedisease s/p cholecystectomy 01/2017)??,??ascites and hypotension. Patient was transferred from OSH on 10/11 with??SOB and sepsis, secondary to pneumonia; ??hyponatremia and JENNIFER (BL Cr 0.8). Patient has been receiving pressors and mechanical ventilation. Limited abdominal US, Rt kidney with increasedechogenicity but no hydronephrosis)- upper part of left kidney appears normal on chest CT- Urine Na<??20, UA suggestive of UTI. TTE 05/2017, EF 55%??. Patient received CRRT while on mechnical ventilation and pressors dependent. The transferred to intermittent HD. JENNIFER recovery delayed, patient aldo es limited volume of urine, not appropriately recorded. Tunneled HD catheter placed in RJ on 10/29. Continues intermittent HD ?? SUBJECTIVE/ 24 hr Events: Afebrile Pain controlled Denies chest pain or SOB Tunneled HD catheter placed in RJV on 10/29. Continues intermittent HD OBJECTIVE: VITALS: Vitals: -------- 10/30/17 10/31/17 10/31/17 10/31/17 1941 0019 0515 0752 -------- BP: 84/57 89/54 98/64 96/56 Pulse: 86 87 94 85 Resp: 16 18 20 20 Temp: 98.5 ??F (36.9 ??C) 98.7 ??F (37.1 ??C) 97.9 ??F (36.6 ??C) 97.8 ??F (36.6 ??C) SpO2: 96% 99% 98% 100% Weight: 41.6 kg (91 lb 11.2 oz) -------- Estimated body mass index is 17.91 kg/(m^2) as calculated from the following: Height as of this encounter: 1.524 m (5'). Weight as of this encounter: 41.6 kg (91 lb 11.2 oz). I/O: Intake/Output Summary (Last 24 hours) at 10/31/17 4446 Last data filed at 10/30/17 1730 Gross per 24 hour Intake 240 ml Output 0 ml Net 240 ml PHYSICAL EXAM: General: ??female, lying in bed, conscious, pleasant. ??NAD. HEENT: NT/NC, MMM. Neck: no JVD, no LAD, no thyromegaly. Respiratory: lungs clear bilaterally, no crackles/wheezes. Decreased respiratory sounds in right base CVS: RRR, S1 S2 heard, no murmurs. Abdomen: Soft, Non-tender, non-distended, abdomen wall edema, bowel sounds audible. Musculoskeletal: ??No joint swelling. LE pedal edema decreasing. Generalized decreased in muscle mass Neuro: Responsive, conscious, non focal?? Skin: no rash, no cyanosis. Echuimosis in upper extremities and chest LAB: Recent Labs Component Name 10/31/17 0512 10/30/17 0553 10/29/17 0539 10/29/17 0008 10/28/17 0845 10/28/17 0531 10/27/17 0411 HGB 7.7* 7.7* 7.6* 7.4* 7.1* 6.9* 9.3* WBC 10.6* 9.7 10.6* 10.1 - 9.7 18.4* PLT 137* 102* 64* 59* - 38* 39* HCT 23.8* 23.6* 22.6* 23.0* - 21.1* 28.2* MCV 100.4* 99.6* 97.8* 100.4* - 99.1* 95.6 PT 14.6 14.5 - 14.1 - 15.6* 15.0* INR 1.2 1.1 - 1.1 - 1.3 1.2 Recent Labs Component Name 10/31/17 0404 10/30/17 0553 10/29/17 0008 10/28/17 0531 10/27/17 0411 10/26/17 2303 10/26/17 1152 10/26/17 0424 10/14/17 2239 09/03/17 BUN 33* 22 45* 34* 20 18 18 - - - 17 CREATININE 1.3* 1.0 1.4* 1.3* 0.8 0.7 0.7 0.7 0.7 - - - - NA 138 138 139 140 139 139 136 139 139 - - - 126* K - - - - - - - - - 3.4* - 5.2* CL 102 100 105 105 103 104 102 103 103 - - - 90* CO2 21* 26 20* 24 25 24 26 24 24 - - - 25.0 CALCIUM 9.6 9.2 9.1 9.2 9.6 9.5 9.1 9.4 9.4 - - - 8.7* GLU 123* 121* 127* 167* 131* 208* 210* 131* 131* - - - 121* PHOS - - - 4.0 1.2* 1.1* 2.1* 2.3 - - - - - = values in this interval not displayed. 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 Recovery delayed, now on intermittent HD via tunneled RIJVcatheter ? # Sepsis. Controlled ? #??Liver cirrhosis with ascites. Patient apparently no candidate for liver transplant ? -# Hyponatremia in the setting of JENNIFER + cirrhosis. Controlled ? # Metabolic acidosis. Controlled ? # Thrombocytopenia. Improving ? -# Pneumonia with septic shock. Still on pressors ? Recommendations/Plan: - Continue HD on MWF right via IJV HD catheter ?? Patient seen and examined at the bedside, plan of care discussed with the attending, Dr. Ivan We will continue to follow the patient with you. Please do not hesitate to contact us with further questions. Alejo Alejo MD. Nephrology Fellow. # [phone]. Associated attestation - Taina Ivan MD - 10/31/2017 10:56 PM CDT Attending Addendum Patient seen and examined with renal fellow today @ 10:35AM. I confirm history, exam, assessment and plan. In addition I note: Interval history: History of HERNANDEZ cirrhosis and transferred from an OSH for management of septic shock presumed due to pneumonia. Baseline serum creatinine of 0.8mg/dL. Urine output - none recorded (the patient reports voiding urine multiple times last night). ?? Exam: Awake & alert, lungs - fair effort, decreased BS over bases, CV - absent rub, ext - edema, RIJ tunneled dialysis catheter exit and tunnel sites are unremarkable, skin - ecchymosis over hands, chest etc. but no active bleeding. ?? Assessment/Plan: JENNIFER (anuric) and dialysis-dependent, tolerated a hemodialysis treatment on Wednesday and plan next dialysis on Wednesday. LIJ temporary dialysis catheter has been removed and plan to use RIJ tunneled dialysis catheter at future dialysis. Anemia with high ferritin level, to administer ESAat dialysis. Hypophosphatemia has corrected following replacement. ?? Please see fellow???s note for further details and call renal consult team-personal banking advisor with any questions.. * Andrew Ruiz MD - 10/31/2017 12:18 PM CDT Vick Progress Note 10/31/2017, 12:18 PM Patient: Rosa Li Room: [facility]918- Admit Date: 10/14/2017. Hospital Day: 17 For hospital course please see end of the note Subjective: No acute events overnight Patient in better spirits this morning, voice significantly improve able to communicate, tolerated diet yesterday. Confusion resolved. Most likely will be discharged early this week to Rehab with HD set up. Objective: Patient Vitals for the past 8 hrs: BP Temp Pulse Resp SpO2 Weight 10/31/17 0752 96/56 97.8 ??F (36.6 ??C) 85 20 100 % - 10/31/17 0515 98/64 97.9 ??F (36.6 ??C) 94 20 98 % 41.6 kg (91 lb 11.2 oz) Intake/Output Summary (Last 24 hours) at 10/31/17 1218 Last data filed at 10/30/17 1730 Gross per 24 hour Intake 440 ml Output 0 ml Net 440 ml General - Appears older than stated age, NAD, cachetic HEENT - NC/AT, PERRL, EOMI, clear conjunctivae (wang removed) Neck - Supple, no LAD, no JVD, significant midline bruise Chest - CTAB no w/c/r, R side tunneled cathter CV - Holosystolic murmur, no radiations, 3/6 Abdomen - Soft, distended, wave sign (significant ascites) not tender Extremities - No peripheral edema Skin - petichiae/ecchymoses in bilateral upper extremities Neurologic - A&O x 3, CN II-XII intact, 2/5 UE and LE strength Psych - Appropriate mood and affect Data Review Recent Labs Component Name 10/31/17 0512 10/30/17 0553 10/29/17 0539 WBC 10.6* 9.7 10.6* HGB 7.7* 7.7* 7.6* HCT 23.8* 23.6* 22.6* PLT 137* 102* 64* MCV 100.4* 99.6* 97.8* Recent Labs Component Name 10/31/17 0404 10/30/17 0553 10/29/17 0008 10/28/17 0531 10/27/17 0411 10/26/17 2303 CALCIUM 9.6 9.2 9.1 9.2 9.6 9.5 PHOS - - - 4.0 1.2* 1.1* Recent Labs Component Name 10/31/17 0404 10/30/17 0553 10/29/17 0008 10/14/17 2239 09/03/17 NA 138 138 139 - - - 126* K - - - - 3.4* - 5.2* CL 102 100 105 - - - 90* CO2 21* 26 20* - - - 25.0 BUN 33* 22 45* - - - 17 CREATININE 1.3* 1.0 1.4* - - - - GLU 123* 121* 127* - - - 121* - = values in this interval not displayed. Recent Labs Component Name 10/31/17 04010/30/17 0553 10/29/17 0008 10/25/17 0838 08/07/17 0201 PROT 5.8* 5.6* 5.1* 5.1* - - - - ALB 3.2* 3.3* 3.3* 3.3* - - - - ALKPHOS 512* 522* 460* 460* - - - - AST 56* 51* 40* 40* - - - - ALT 32 28 22 22 - - - - TBILI 1.5* 1.8* 1.4* 1.4* - - - - DBILI - - 0.7* - 0.9* - 0.3 - = values in this interval not displayed. Recent Labs Component Name 10/31/17 0512 10/30/17 0553 10/29/17 0008 10/28/17 0531 10/27/17 0411 PT 14.6 14.5 14.1 15.6* 15.0* INR 1.2 1.1 1.1 1.3 1.2 PTT - - 30.3 37.4 39.6* Recent Labs Component Name 10/27/17 0411 08/07/17 0859 08/07/17 0142 TROPONINI 0.070* <0.010 0.017 MELDScore MELD-Na score: 13 at 10/31/2017 5:12 AM MELD score: 13 at 10/31/2017 5:12 AM Calculated from: Serum Creatinine: 1.3 mg/dL at 10/31/2017 4:04 AM Serum Sodium: 138 mmol/L (Rounded to 137) at 10/31/2017 4:04 AM Total Bilirubin: 1.5 mg/dL at 10/31/2017 4:04 AM INR(ratio): 1.2 at 10/31/2017 5:12 AM Age: 57 years Current Medications hydrocortisone 15 mg Oral QDAY pantoprazole 40 mg Intravenous BID QUEtiapine 25 mg Oral AT BEDTIME midodrine 10 mg Oral q8h lactulose 10 g Enteral Tube BID insulin aspart 0-6 Units Subcutaneous q6h 0.9% NaCl ??? glucose (Diabetic Use) ??? dextrose ??? glucagon ??? albuterol-ipratropium Microbiology ?? Blood culture NG ?? Sputum NG ?? Urine NG ?? Imaging ?? CT chest 10.15.2017 1. No evidence of pulmonary embolism, however, [...] hepatic segment 8 likely representing a hemangioma. ?? Echocardiogram 10/27 Sinus rhythm. The left ventricular cavity size, wall thickness, systolic and diastolic function are normal/hyperdynamic with no regional wall motion abnormalities present. EF 81%. Right heart has normalized compared to prior ECHO. Infundibular borderline pulmonary stenosis due to hyperdynamic RV Assessment/Plan: ?? Dysphagia Likely oropharyngeal form prolonged intubation Modified barium swallow wnl 10/29 Started on mechanical diet Calorie count by dietary ?Oliguric JENNIFER Etiology unclear, likely HRS in the setting of underlying cirrhosis triggered by sepsis Requiring renal replacement therapy since 10/15, CRRT stopped on 10/26 No evidence of renal recovery Permacath by IR 10/28 Started on HD on 10/28 Will need HD outpatient set up ?? Severe deconditioning Malnutrition, significant loss of muscle mass Likely secondary to critically ill and no p.o intake Although since May she complained of severe weight loss, improved with food enzymes PT/OT : Rehab placement ?Encephalopathy Multifactorial: sepsis, hepatic encephalopathy, delirium -Continue Lactulose to target 3-4 bm/d -Continue Seroquel -Neuro checks ?Hypotension Underlying cirrhosis +/- adrenal insufficiency? ??-Continue Midodrine 10mg TID - Adrenal insufficiency ruled out with stim test - Taper hydrocortisone down - switch to 10 tomorrow ?? HERNANDEZ Cirrhosis -MELD-Na Score 11----24 with dialysis -Etiology HERNANDEZ (rest of w/u negative) -Decompensated when HE, ascites or infection -HE : continue lactulose -EV : no EGD in system -Ascites: LVP Q2 w as outpatient, not on diuretics- -SBP : none prior -HCC: none seen on CT 10/2017 -Transplant : not a candidate: severe deconditioning and smoking ? Cholestasis Ischemic cholangiopathy from HoTN, vs congestive hepatopathy transient while RV dysfunction vs sepsis vs DILI AP ~700, elevated GGT and normal Tbili Non dilated bile ducts on CT 10/19 -Monitor CMP ?? Septic shock - Resolved From community acquired pneumonia Completed antibiotic tx Zosyn 10/24, off pressors ? Acute hypoxic respiratory failure - Resolved Secondary to CAP Intubated on 10/14 extubated on 10/25 Completed antibiotic 10/24 -Duonebs Q4h prn ? Pleural effusion Thoracentesis 10/15 - transudative Likely hepatic hydrothorax Monitor FEN: Keep K~4, Phos~3, and Mg~2 Dispo: Rehab pending Code status: TSL 1 Andrew Ruiz MD PGY-2, Internal Medicine 10/31/2017, 12:18 PM Brief Hospital Course ?? Ms. 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 On admission to [facility] admission was found to have bilateral pneumonia as the source of septic shock, was continued on pressors, antibiotics were switched to vancomycin and zosyn, thoracentesis result were consistent with a transudate, completed antibiotic regimen with Zosyn on 10/23 , pressors were disc ontinued on 10/24 and was successfully extubated on 10.25, currently on 2 liters NC. MICU stay was complicated by the following: -Encephalopathy attributed to sepsis and HE, now stable with lactulose and seroquel -Oliguric JENNIFER, max Cr 2.0 anuric and AGMA, was attributed to HRS triggered by sepsis, CRRT started on 10/19, stopped on 10/26 without signs of renal recovery, nephrology plans to place permacath and start HD. -Hyponatremia down to 115 mEq attributed to SIADH and underlying cirrhosis, improved with fluid restriction and CRRT,now 139 mEq. ?? 10/27 transfer to floor 10/28 IR permacath placed 6.15 started HD 6.16 started mechanical soft diet * Adwoa Whitlock MD - 10/31/2017 9:28 AM CDT GI Service Attending Note 10/31/2017 9:28 AM I have personally seen and examined this patient with the resident or fellow today and I confirm their assessment and plan. My findings are outlined below. Subjective and events of past 24 hours: No events Doing much better today PE: BP 96/56 Pulse 85 Temp 97.8 ??F (36.6 ??C) Resp 20 Ht 1.524 m (5') Wt 41.6 kg (91 lb 11.2 oz) SpO2 100% BMI 17.91 kg/m2 Wt Readings from Last 3 Encounters: 10/31/17 41.6 kg (91 lb 11.2 oz) 08/08/17 39.9 kg (87 lb 14.4 oz) 08/06/17 37.2 kg (82 lb) alert + jaundice Relevant labs and imaging: Recent Labs Component Name 10/31/17 0512 10/31/17 0404 10/30/17 0553 10/29/17 0539 10/29/17 0008 10/14/17 2239 09/03/17 TBILI - 1.5* 1.8* - 1.4* 1.4* - - - 0.7 ALKPHOS - 512* 522* - 460* 460* - - - 172* ALT - 32 - - - - 12 AST - 56* 51* - 40* 40* - - - 25 ALB - 3.2* 3.3* - 3.3* 3.3* - - - 2.3* NA - 138 138 - 139 - - - 126* K - - - - - - 3.4* - 5.2* CREATININE - 1.3* 1.0 - 1.4* - - - - HGB 7.7* - 7.7* 7.6* 7.4* - - - 10.3* WBC 10.6* - 9.7 10.6* 10.1 - - - 10.0 PLT 137* - 102* 64* 59* - - - 602* INR 1.2 - 1.1 - 1.1 - - - 1.07 - = values in this interval not displayed. MELD-Na 24 Impression/Plan 1. Profound debilitation, cachexia, severe protein calorie malnutrition, muscle wasting 1. Passed mod barium, seems to be doing much better today able to eat yesterday 2. Can start diet, calorie count 3. TTG, pancreatic elastase 2. Recent septic shock/pneumonia; antibiotics completed vanco/zosyn 3. Decompensated cirrhosis, Non alcoholic steatohepatitis by report (possible lean HERNANDEZ); MELD 12 -alternative w/u neg 1. Hepatic hydrothorax, ascites; LVPs as needed 2. Portosystemic encephalopathy--improved 1. Lactulose/rifaximin 3. Esophageal varices, no EGD in past 4. Possible adrenal insufficiency; switched to HC replacement doses. 1. stim today (not sure if done properly) 5. Renal failure; acute tubular necrosis vs. hepatorenal syndrome 1. Started HD yesterday 2. wang removed 6. Delerium, ICU--much improved today 1. On seroquel Disposition: make arrangement for rehab, hopefully early next week. Adwoa Whitlock MD Jet Dyeing Machine Tender of Internal Medicine Division of Gastroenterology and Hepatology * Lauren Tobin RN - 10/30/2017 9:32 PM CDT Notified MD regarding patients most recent BP. Patient has no other symptoms pertaining to BP. No new orders received. Will continue to monitor. * Adwoa Whitlock MD - 10/30/2017 10:31 AM CDT GI Service Attending Note 10/30/2017 10:31 AM I have personally seen and examined this patient with the resident or fellow today and I confirm their assessment and plan. My findings are outlined below. Subjective and events of past 24 hours: No events Underwent HD Modified barium normal started on diet and calorie count PE: BP 98/66 Pulse 81 Temp 97.7 ??F (36.5 ??C) Resp 20 Ht 1.524 m (5') Wt 49.1 kg (108 lb 3.2 oz) SpO2 100% BMI 21.13 kg/m2 Wt Readings from Last 3 Encounters: 10/30/17 49.1 kg (108 lb 3.2 oz) 08/08/17 39.9 kg (87 lb 14.4 oz) 08/06/17 37.2 kg (82 lb) alert + jaundice Relevant labs and imaging: Recent Labs Component Name 10/30/17 0553 10/29/17 0539 10/29/17 0008 10/28/17 0531 10/14/17 2239 09/03/17 TBILI 1.8* - 1.4* 1.4* - 1.3* - - - 0.7 ALKPHOS 522* - 460* 460* - 453* - - - 172* ALT 28 - 22 22 - 16 - - - 12 AST 51* - 40* 40* - 28 - - - 25 ALB 3.3* - 3.3* 3.3* - 3.6 - - - 2.3* NA 138 - 139 - 140 - - - 126* K - - - - - - 3.4* - 5.2* CREATININE 1.0 - 1.4* - 1.3* - - - - HGB 7.7* 7.6* 7.4* - 6.9* - - - 10.3* WBC 9.7 10.6* 10.1 - 9.7 - - - 10.0 PLT 102* 64* 59* - 38* - - - 602* INR 1.1 - 1.1 - 1.3 - - - 1.07 - = values in this interval not displayed. MELD-Na 24 Impression/Plan 1. Profound debilitation, cachexia, severe protein calorie malnutrition, muscle wasting 1. Passed mod barium yesterday 2. NG removed 3. Can start diet, calorie count 4. TTG, pancreatic elastase 2. Recent septic shock/pneumonia; antibiotics completed vanco/zosyn 3. Decompensated cirrhosis, Non alcoholic steatohepatitis by report (possible lean HERNANDEZ); MELD 12 -alternative w/u neg 1. Hepatic hydrothorax, ascites; LVPs as needed 2. Portosystemic encephalopathy 1. Lactulose/rifaximin 3. Esophageal varices, no EGD in past 4. Possible adrenal insufficiency; switched to HC replacement doses. 1. stim tomorrow 5. Renal failure; acute tubular necrosis vs. hepatorenal syndrome 1. Started HD yesterday 2. Needs Wang removed 6. Delerium, ICU 1. On seroquel Disposition: make arrangement for rehab, hopefully early next week. Adwoa Whitlock MD Jet Dyeing Machine Tender of Internal Medicine Division of Gastroenterology and Hepatology * Taina Ivan MD - 10/30/2017 10:25 AM CDT Nephrology Attending Note Patient seen and examined today @ 9:35AM. Spoke to at bedside. Interval history: History of HERNANDEZ cirrhosis and transferred from an OSH for management of septic shock presumed due to pneumonia. Baseline serum creatinine of 0.8mg/dL. Noted some confusion and transfer to 918. Urine output - none recorded ( reports the patient making some urine at dialysis yesterday). UF 950mL @ dialysis. Exam: Awake & appears calm now. Lungs - fair effort, decreased BS over bases, CV - absent rub, ext - edema, RIJ tunneled dialysis catheter and LIJ temporary catheter, skin - ecchymosis over hands, chest etc. But no active bleeding. Assessment/Plan: JENNIFER (anuric) and dialysis-dependent, tolerated a hemodialysis treatment yesterday and no acute indication for dialysis today. Plan next dialysis on Wednesday. Rec removal of dialysis LIJ temporary dialysis catheter. ypokalemia is a reflection of low body potassium reserve due to marked undernutrition and GI loss (receiving lactulose) and is a risk factor for heaptic , encephalopathy. Recommend potassium chloride 40mEq x 2 doses, 4 hours apart, then repeat level. Please call renal consult team-personal banking advisor with any questions. * Andrew Ruiz MD - 10/30/2017 8:54 AM CDT Vick Progress Note 10/30/2017, 8:54 AM Patient: Rosa Li Room: [address] [place] [address] Admit Date: 10/14/2017. Hospital Day: 16 For hospital course please see end of the note Subjective: No acute events overnight, has no complains this morning. Underwent 3 hours of HD with 1 lt UF without complications. Barium swallow study yesterday wnl, was started on mechanical diet and TF discontinued, dietitian will help with calorie count to ensure appropriate nutrition. Objective: Patient Vitals for the past 8 hrs: BP Temp Pulse Resp SpO2 Weight 10/30/17 0722 101/72 97.5 ??F (36.4 ??C) 95 18 100 % - 10/30/17 0326 92/68 97.9 ??F (36.6 ??C) 88 20 100 % 49.1 kg (108 lb 3.2 oz) Intake/Output Summary (Last 24 hours) at 10/30/17 0854 Last data filed at 10/30/17 0750 Gross per 24 hour Intake 110 ml Output 950 ml Net -840 ml General - Appears older than stated age, NAD, cachetic HEENT - NC/AT, PERRL, EOMI, clear conjunctivae, left Wang Neck - Supple, no LAD, no JVD, significant midline bruise Chest - CTAB no w/c/r, R side tunneled cathter CV - Holosystolic murmur, no radiations, 3/6 Abdomen - Soft, distended, wave sign (significant ascites) not tender Extremities - No peripheral edema Skin - petichiae/ecchymoses in bilateral upper extremities Neurologic - A&O x 3, CN II-XII intact, 2/5 UE and LE strength Psych - Appropriate mood and affect Data Review Recent Labs Component Name 10/30/17 0553 10/29/17 0539 10/29/17 0008 WBC 9.7 10.6* 10.1 HGB 7.7* 7.6* 7.4* HCT 23.6* 22.6* 23.0* PLT 102* 64* 59* MCV 99.6* 97.8* 100.4* Recent Labs Component Name 10/30/17 0553 10/29/17 0008 10/28/17 0531 10/27/17 0411 10/26/17 2303 CALCIUM 9.2 9.1 9.2 9.6 9.5 PHOS - - 4.0 1.2* 1.1* Recent Labs Component Name 10/30/17 0553 10/29/17 0008 10/28/17 0531 10/14/17 2239 09/03/17 NA 138 139 140 - - - 126* K - - - - 3.4* - 5.2* CL 100 105 105 - - - 90* CO2 26 20* 24 - - - 25.0 BUN 22 45* 34* - - - 17 CREATININE 1.0 1.4* 1.3* - - - - GLU 121* 127* 167* - - - 121* - = values in this interval not displayed. Recent Labs Component Name 10/30/17 0553 10/29/17 0008 10/28/17 0531 10/25/17 0838 08/07/17 0201 PROT 5.6* 5.1* 5.1* 5.3* - - - - ALB 3.3* 3.3* 3.3* 3.6 - - - - ALKPHOS 522* 460* 460* 453* - - - - AST 51* 40* 40* 28 - - - - ALT 28 22 22 16 - - - - TBILI 1.8* 1.4* 1.4* 1.3* - - - - DBILI - 0.7* - - 0.9* - 0.3 - = values in this interval not displayed. Recent Labs Component Name 10/30/17 0553 10/29/17 0008 10/28/17 0531 10/27/17 0411 PT 14.5 14.1 15.6* 15.0* INR 1.1 1.1 1.3 1.2 PTT - 30.3 37.4 39.6* Recent Labs Component Name 10/27/17 0411 08/07/17 0859 08/07/17 0142 TROPONINI 0.070* <0.010 0.017 MELDScore MELD-Na score: 10 at 10/30/2017 5:53 AM MELD score: 10 at 10/30/2017 5:53 AM Calculated from: Serum Creatinine: 1.0 mg/dL at 10/30/2017 5:53 AM Serum Sodium: 138 mmol/L (Rounded to 137) at 10/30/2017 5:53 AM Total Bilirubin: 1.8 mg/dL at 10/30/2017 5:53 AM INR(ratio): 1.1 at 10/30/2017 5:53 AM Age: 57 years Current Medications hydrocortisone 15 mg Oral QDAY pantoprazole 40 mg Intravenous BID QUEtiapine 25 mg Oral AT BEDTIME midodrine 10 mg Oral q8h lactulose 10 g Enteral Tube BID insulin aspart 0-6 Units Subcutaneous q6h 0.9% NaCl ??? glucose (Diabetic Use) ??? dextrose ??? glucagon ??? albuterol-ipratropium Microbiology ?? Blood culture NG ?? Sputum NG ?? Urine NG ?? Imaging ?? CT chest 10.15.2017 1. No evidence of pulmonary embolism, however, [...] hepatic segment 8 likely representing a hemangioma. ?? Echocardiogram 10/27 Sinus rhythm. The left ventricular cavity size, wall thickness, systolic and diastolic function are normal/hyperdynamic with no regional wall motion abnormalities present. EF 81%. Right heart has normalized compared to prior ECHO. Infundibular borderline pulmonary stenosis due to hyperdynamic RV Assessment/Plan: ?? Dysphagia Likely oropharyngeal form prolonged intubation Unlikely Esophagitis vs stricture vs NM vs other Modified barium swallow wnl 10/29 Started on mechanical diet Calorie count by dietary ?Oliguric JENNIFER Etiology unclear, likely HRS in the setting of underlying cirrhosis triggered by sepsis Requiring renal replacement therapy since 10/15, CRRT stopped on 10/26 No evidence of renal recovery Permacath by IR 10/28 Started on HD on 10/28 Will need HD outpatient set up ?? Severe deconditioning Malnutrition, significant loss of muscle mass Likely secondary to critically ill and no p.o intake Although since May she complained of severe weight loss, improved with food enzymes PT/OT : Rehab placement ?Encephalopathy Multifactorial: sepsis, hepatic encephalopathy, delirium -Continue Lactulose to target 3-4 bm/d -Continue Seroquel -Neuro checks ?Hypotension Underlying cirrhosis +/- adrenal insufficiency? ??-Continue Midodrine 10mg TID - Hydrocortisone switched to oral 15mg yest - Stim test on Wednesday (after 3 days of physiologic dose of steroids to avoid confusion) ?? HERNANDEZ Cirrhosis -MELD-Na Score 11----24 with dialysis -Etiology HERNANDEZ (rest of w/u negative) -Decompensated when HE, ascites or infection -HE : continue lactulose -EV : no EGD in system -Ascites: LVP Q2 w as outpatient, not on diuretics- -SBP : none prior -HCC: none seen on CT 10/2017 -Transplant : not a candidate: severe deconditioning and smoking ? Cholestasis Ischemic cholangiopathy from HoTN, vs congestive hepatopathy transient while RV dysfunction vs sepsis vs DILI AP ~700, elevated GGT and normal Tbili Non dilated bile ducts on CT 10/19 -Monitor CMP ?? Septic shock - Resolved From community acquired pneumonia Completed antibiotic tx Zosyn 10/24, off pressors ? Acute hypoxic respiratory failure - Resolved Secondary to CAP Intubated on 10/14 extubated on 10/25 Completed antibiotic 10/24 -Duonebs Q4h prn ? Pleural effusion Thoracentesis 10/15 - transudative Likely hepatic hydrothorax Monitor FEN: Keep K~4, Phos~3, and Mg~2 Dispo: Rehab pending Code status: TSL 1 Andrew Ruiz MD PGY-2, Internal Medicine 10/30/2017, 8:54 AM Brief Hospital Course ?? Ms. 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 On admission to [facility] admission was found to have bilateral pneumonia as the source of septic shock, was continued on pressors, antibiotics were switched to vancomycin and zosyn, thoracentesis result were consistent with a transudate, completed antibiotic regimen with Zosyn on 10/23 , pressors were disc ontinued on 10/24 and was successfully extubated on 10.25, currently on 2 liters NC. MICU stay was complicated by the following: -Encephalopathy attributed to sepsis and HE, now stable with lactulose and seroquel -Oliguric JENNIFER, max Cr 2.0 anuric and AGMA, was attributed to HRS triggered by sepsis, CRRT started on 10/19, stopped on 10/26 without signs of renal recovery, nephrology plans to place permacath and start HD. -Hyponatremia down to 115 mEq attributed to SIADH and underlying cirrhosis, improved with fluid restriction and CRRT,now 139 mEq. ?? 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 Pt transferred to [facility] with telemetry and continuous pulse oximetry on. Spouse notified of pttransfer and reason for transfer to observation room. Pt awake and alert, no s/s acute distress noted. * Tiffany Wood RN - 10/30/2017 8:09 AM CDT Report called to receiving nurse on [facility]. * Ludwin Lynn RN - 10/29/2017 10:00 PM CDT Hemodialysis Nursing Documentation 1. Duration of treatment: 3hrs 2. Access type: Right IJ PC 3. Total ultrafiltration volume: 950 mL 4. Medications given during the treatment: None 5. Comments and observations: Depressed and apathetic, not feeling well and with poor appetite. LowBP during HD. * Alejo Agustin MD - 10/29/2017 6:52 PM CDT PT NAME : Rosa Lyndsey Li PT Date of admit : 10/14/2017 8:26 PM Rosa Li??is a 56 y.o.??female??with a ??hx of HERNANDEZ cirrhosis (from cholestatic obstructivedisease s/p cholecystectomy 01/2017)??, ascites and hypotension. Patient was transferred from OSH on 10/11 with SOB and sepsis, presumably secondary to pneumonia; ??hyponatremia and JENNIFER (BL Cr 0.8). Patient has been receiving pressors and mechanical ventilation. Initial workup: Imaging of kidneys (limited abdominal US , Rt kidney with increased echogenicity but no hydronephrosis)- upper part of left kidney appears normal on chest CT- Urine Na <??20, UA suggestive of UTI. TTE 05/2017, EF 55%??. Patient has been on CRRT SUBJECTIVE/ 24 hr Events: Patient off CRRT Tunneled HD catheter placed today Will initiate intermittent HD today Denies chest pain or SOB Denies nausea or vomiting OBJECTIVE: VITALS: Vitals: 10/29/17 10/29/17 10/29/17 10/29/17 1700 1730 1800 1830 BP: 97/68 93/66 96/70 98/70 Pulse: 77 76 80 82 Resp: Temp: SpO2: Weight: Estimated body mass index is 21.1 kg/(m^2) as calculated from the following: Height as of this encounter: 1.524 m (5'). Weight as of this encounter: 49 kg (108 lb 0.4 oz). I/O: Intake/Output Summary (Last 24 hours) at 10/29/17 2222 Last data filed at 10/29/17 0000 Gross per 24 hour Intake 60 ml Output 0 ml Net 60 ml PHYSICAL EXAM: General: ??female, lying in bed, intubated, on mechanical ventilation,??NAD. HEENT: NT/NC, MMM. Neck: no JVD, no LAD, no thyromegaly. Respiratory: lungs clear bilaterally, no crackles/wheezes. Decreased respiratory sounds in right base CVS: RRR, S1 S2 heard, no murmurs. Abdomen: Soft, Non-tender, non-distended, abdomen wall edema, bowel sounds audible. Musculoskeletal: ??No joint swelling. LE pedal edema decreasing. Generalized decreased in muscle mass Neuro: Responsive, conscious, non focal?? Skin: no rash, no cyanosis LAB: Recent Labs Component Name 10/29/17 0539 10/29/17 0008 10/28/17 0845 10/28/17 0531 10/27/17 0411 10/26/17 0424 10/25/17 0500 HGB 7.6* 7.4* 7.1* 6.9* 9.3* 8.9* 9.1* WBC 10.6* 10.1 - 9.7 18.4* 17.4* 22.8* PLT 64* 59* - 38* 39* 61* 65* HCT 22.6* 23.0* - 21.1* 28.2* 26.8* 27.4* MCV 97.8* 100.4* - 99.1* 95.6 95.0 94.8 PT - 14.1 - 15.6* 15.0* 15.5* 12.5 INR - 1.1 - 1.3 1.2 1.2 1.0 Recent Labs Component Name 10/29/17 0008 10/28/17 0531 10/27/17 0411 10/26/17 2303 10/26/17 1152 10/26/17 0424 10/14/17 2239 09/03/17 BUN 45* 34* 20 20 18 18 18 - - - 17 CREATININE 1.4* 1.3* 0.8 0.7 0.7 0.7 0.7 - - - - NA 139 140 139 139 136 139 139 - - - 126* K - - - - - - - 3.4* - 5.2* CL 105 105 103 104 102 103 103 - - - 90* CO2 20* 24 25 24 26 24 24 - - - 25.0 CALCIUM 9.1 9.2 9.6 9.5 9.1 9.4 9.4 - - - 8.7* GLU 127* 167* 131* 208* 210* 131* 131* - - - 121* PHOS - 4.0 1.2* 1.1* 2.1* 2.3 - - - - - = values in this interval not displayed. Recent Labs Component Name 10/29/17 0008 10/28/17 0531 10/27/17 0411 10/26/17 2303 10/26/17 1152 10/26/17 0424 10/25/17 0500 ALB 3.3* 3.3* 3.6 3.6 3.4 3.4 3.5 3.5 - 3.4 3.4 TBILI 1.4* 1.4* 1.3* 1.8* - - 1.7* - 1.5* ALT 22 22 16 27 - - 23 - 17 AST 40* 40* 28 50* - - 44* - 30 - = values in this interval not displayed. Invalid input(s): PHART, [id number], PO2ART, [id number] ASSESSMENT: # JENNIFER in the setting of infection (penumonia), low urine sodium, possibly ??HRS type 1 and associated JENNIFER secondary to shock patient continues anuric, on CRRT. ?? # Sepsis. WBC increasing , 05/01 ? #??Liver cirrhosis with ascites. Patient apparently no candidate for liver transplant ? -# Hyponatremia in the setting of JENNIFER + cirrhosis. Controlled ? # Metabolic acidosis. Controlled ? # Thrombocytopenia ? -# Pneumonia with septic shock. Still on pressors ? Recommendations/Plan: - Patient initiates HD today after Patient seen and examined at the bedside, plan of care discussed with the attending, Dr. Hidalgo We will continue to follow the patient with you. Please do not hesitate to contact us with further questions. Alejo Alejo MD. Nephrology Fellow. # [phone]. Associated attestation - Chun Hidalgo MD - 10/30/2017 7:29 AM CDT I have seen and examined the patient with house-staff on rounds. I agree with the house-staff note with the additions/modificiations detailed in my separate linked note on the same date. * Chun Hidalgo MD - 10/29/2017 4:11 PM CDT Nephrology Attending Physician I have seen and examined the patient with house-staff on rounds this AM I agree with the house-staff note with the additions/modificiations listed below. History: Initial Hx from chart 56 year old woman with HERNANDEZ cirrhosis with recurrent ascites, transferred from another hospital in septic shock (due to ? Pneumonia) , hyponatremia and JENNIFER (BL Cr 0.8). She has been needing pressors for pressure support in addition to mechanical ventilation. Initial workup: Imaging of kidneys (limited abdominal US , Rt kidney with increased echogenicity but no hydronephrosis)- upper part of left kidney appears normal on chest CT- Urine Na < 20, UA suggestive of UTI. TTE 05/2017, EF 55% After aggressive volume removal via CRRT patient was successfully extubated 10/26 CRRT was stopped 10/26 Interval History: Comfortable- transferred to the floors A little confused No CP or SOB MEDICATIONS FOR CURRENT ENCOUNTER: SCHEDULED MEDICATIONS: hydrocortisone (CORTEF) tablet 15 mg, Oral, QDAY insulin aspart (NovoLOG) pen 0-6 Units, Subcutaneous, q6h lactulose (CHRONULAC) solution 10 g, Enteral Tube, BID midodrine (PROAMATINE) tablet 10 mg, Oral, q8h pantoprazole (PROTONIX) injection 40 mg, Intravenous, BID QUEtiapine (SEROquel) tablet 25 mg, Oral, AT BEDTIME [COMPLETED] barium (VARIBAR) 40 % liquid SUSR 5 mL, Oral, Once ?? [COMPLETED] barium (Varibar) 40 % paste PSTE 5 mL, Oral, Once ?? CONTINUOUS MEDICATIONS: PRN MEDICATIONS: 0.9% NaCl infusion for blood, Intravenous, Once PRN albuterol-ipratropium (DUO-NEB) nebulizer solution 3 mL, Inhalation, q4h PRN dextrose IV 12.5-25 g, Intravenous, PRN glucagon (GLUCAGEN) injection 1 mg, Intramuscular, PRN ?? glucose (Diabetic Use) oral gel, Oral, PRN Exam/Data : Patient Vitals for the past 6 hrs: Temp Pulse Resp BP BP Method 10/29/17 1153 97.8 ??F (36.6 ??C) 75 17 89/57 Automatic Estimated body mass index is 21.1 kg/(m^2) as calculated from the following: Height as of this encounter: 1.524 m (5'). Weight as of this encounter: 49 kg (108 lb 0.4 oz). Intake/Output Summary (Last 24 hours) at 10/29/17 1611 Last data filed at 10/29/17 0000 Gross per 24 hour Intake 160 ml Output 0 ml Net 160 ml General : Comfortable Eyes: normal extraocular movements ENT- NG in place CV- Markedly improved edema Resp- unlabored breathing Abd- soft Musculoskeletal- no joint effustions Skin- no rash Neuro- awake, grossly non-focal ?? Recent Labs 10/29/17 0539 10/29/17 0008 10/28/17 0845 10/28/17 0531 10/27/17 0411 10/26/17 2303 BUN 45 H 34 H 20 20 CREATININE 1.4 H 1.3 H 0.8 0.7 NA 139 140 139 139 POTASSIUM 3.5 3.2 L 3.6 3.5 CL 105 105 103 104 CO2 20 L 24 25 24 CALCIUM 9.1 9.2 9.6 9.5 MAGNESIUM 2.5 PHOS 4.0 1.2 L 1.1 L HGB 7.6 L 7.4 L 7.1 L 6.9 L 9.3 L WBC 10.6 H 10.1 9.7 18.4 H PLT 64 L 59 L 38 L 39 L Assessment and Plan: ?? - JENNIFER in the setting of infection (penumonia), low urine sodium: required CRRT (stopped 10/26) - Liver cirrhosis with ascites - Hyponatremia in the setting of JENNIFER + cirrhosis: improved with CRRT - Thrombocytopenia - Pneumonia with septic shock: shock resolved - frailty, malnourishment ?? 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 S/p tunneled dialysis catheter 10/28 She is markedly malnourished and frail after a severe acute illness- will require aggressive nutrition/PT/OT interventions. Would continue to limit free water intake to less than 1.2 liters daily as she is at risk of hyponatremia. Next HD today 10/29 , then MWF schedule as tolerated * Ronaldo Celis OT - 10/29/2017 4:00 PM CDT [facility] Department of Physical Medicine & Rehabilitation Progress Note Patient: Rosa Li [facility] Record Number: [id number] Date of : 1960 Age: 57 y.o. 10/29/17 1600 Missed Visit Missed Visit Procedure off the floor. Will continue to follow. * Minal Mallory RN - 10/29/2017 3:48 PM CDT CM met with the patient and her and they were agreeable to referrals being sent [facility] [phone], [facility] [phone], Jennifer Becker [facility] [phone]. Referrals sent via [employer] fax. automation and controls manager will continue to follow for discharge disposition. Minal Mallory RN, BSN Full Stack Software Developer ext. #[phone] * Minal Mallory RN - 10/29/2017 3:45 PM CDT Facility Referral Fax Information Reason for Referral (level of care, special needs): [facility] Contact and Telephone number : Minal Full Stack Software Developer [phone] Hospital Referring: [facility] and Telephone number : [address] [place] [address], Please call RN for all Medical Questions. Anticipated Discharge Date: Anticipated Discharge Date: 10/22/17 Isolation Status : No active isolations Code Status: Full Code Insurance: Payor/Plan Subscriber Name Rel Member # Group # CIGNA - CIGNA HMO POS* GUILLERMOROSA Solorio [id number] [id number] Face Sheet Information Rosa Li: Date Patient first became inpatient: 10/14/17 Admit Date: 10/14/2017 Room Number:902/902-01 SSN :[id number] Sex: female : 1960 Age:57 y.o. Ethnicity: White/ Lang: PASHTO Denomination: UNK [63] Patient Type: Inpatient Allergies Allergen Reactions ??? Meperidine Other MS CHANGES, RESP DEPRESSION Weight:Weight: 49 kg (108 lb 0.4 oz) Height: Height: 152.4 cm (5') Address:[address] [place] [address] (home) Family Contacted? name and phone: Contact: Extended Emergency Contact Information Primary Emergency Contact: GuillermoRalph [address]: [address] [place] [address] Relation: Spouse DX: SEPTIC SHOCK Insurance: Payor/Plan Subscriber Name Rel Member # Group # CIGNA - CIGNA HMO POS* GUILLERMOROSA Solorio [id number] [id number] Attending physician and telephone number:Elver Johns MD Office Primary Care Physician and telephone number: Fernie Barfield DO [phone] MAR: MEDICATIONS FOR CURRENT ENCOUNTER: ?? SCHEDULED MEDICATIONS: ?? hydrocortisone (CORTEF) tablet 15 mg, Oral, QDAY ?? insulin aspart (NovoLOG) pen 0-6 Units, Subcutaneous, q6h ?? lactulose (CHRONULAC) solution 10 g, Enteral Tube, BID ?? midodrine (PROAMATINE) tablet 10 mg, Oral, q8h ?? pantoprazole (PROTONIX) injection 40 mg, Intravenous, BID ?? QUEtiapine (SEROquel) tablet 25 mg, Oral, AT BEDTIME ?? [COMPLETED] barium (VARIBAR) 40 % liquid SUSR 5 mL, Oral, Once ?? [COMPLETED] barium (Varibar) 40 % paste PSTE 5 mL, Oral, Once ?? CONTINUOUS MEDICATIONS: PRN MEDICATIONS: 0.9% NaCl infusion for blood, Intravenous, Once PRN albuterol-ipratropium (DUO-NEB) nebulizer solution 3 mL, Inhalation, q4h PRN dextrose IV 12.5-25 g, Intravenous, PRN glucagon (GLUCAGEN) injection 1 mg, Intramuscular, PRN glucose (Diabetic Use) oral gel, Oral, PRN Minal Mallory RN * Codey Martinez SLP - 10/29/2017 2:35 PM CDT [facility] Speech Therapy Modified Barium Swallow Patient: Rosa Li [facility] Record Number [id number] Date of : 1960 Age: 57 y.o. Referring Physician: Dr. Jamilah Johns Diagnosis: Patient Active Problem List Diagnosis ??? Other ascites ??? Fatty (change of) liver, not elsewhere classified ??? Hypo-osmolality and hyponatremia ??? Septic shock ??? Acute encephalopathy ??? Acute respiratory failure with hypoxia ??? JENNIFER (acute kidney injury) ??? Liver cirrhosis secondary to HERNANDEZ ??? Cor pulmonale (chronic) No past medical history on file. Swallow Recommendations: Liquids: Thin Diet: Mechanical Soft (DYS2) Recommendations: Sit at 90 degrees, Small bites/sips, Pills one at a time or crushed in puree Cognitive/Mental Status: Patient appears alert, oriented with no cognitive impairments that will interfere with therapy intervention. Procedure: This procedure was performed in conjunction with radiology using lateral views. The patient was given thin liquid, pudding consistency and cracer dipped in pudding/barium mix. Oral Stage: Mastication: Laborious Transit: Increased oral transit time with solids Tongue Base Retraction: Mild reduction appreciated Pharyngeal Stage: Response Triggering: Mildly delayed with thin liquid Spillage of Bolus: Thin liquid trials were noted to fall from the valleculae and spill toward the laryngeal vestibule prior to initiation of swallow Epiglottic Function: Functional Stasis/Residue: Minimal-moderate (more so with puree/solid) vallecular residue during the study Multi Penetration/Aspiration: trace penetration was observed x1 with thin liquid, this penetrated material was observed to move further down the laryngeal vestibule and eventually was visualized on the vocal cords, at which time Pt clear her throat spontaneously and material was then swallowed successfully. No aspiration appreciated during the exam. Esophageal Stage: Cricopharyngeal Function: Functional Treatment: Patient/family education: PURCHASER reviewed results of the exam with the Pt, Pt's son who was present, RN and MD Assessment: Patient demonstrated good understanding of instructions given. Swallowing Function: Mild-moderate oropharyngeal dysphagia given prolonged mastication of solids, delayed A-P transfer of solids, reduced tongue base retraction and delayed pharyngeal swallow initiation which resulted in deep laryngeal penetration with thin liquid but Pt was observed to spontaneously clear. Informed Consent to Treatment: Plan of care including recommended therapy, goals and frequency, as well as potential risks and benefits of treatment/assessment explained to the patient who understands and agrees to proceed. Patient, Family, Nursing and Physician instructed regarding the above techniques, recommendations and plan of care and verbalized understanding. Guidelines were posted (inpatient only): yes Goals: Short Term Goal(s): Patient/staff/family to receive instruction in compensatory swallowing strategies andd/or recommendations and verbalize understandi. Crepe Sole Scourer Goal(s): Patient to be independent/baseline with functional swallow and be able to safely discharge to priorlevel of care. Plan: Patient to be seen 2-3 times a week for swallow follow-up. Discharge Recommendations: Patient will benefit from inpatient multidisciplinary therapies Codey Michelle, PURCHASER Speech-Language Pathologist 10/29/2017 * Judie Monet, PT - 10/29/2017 2:22 PM CDT 10/29/17 1400 Missed Visit Missed Visit Procedure off the floor. Will continue to follow. * Khadijah Bradshaw RD/NATHAN - 10/29/2017 2:13 PM CDT Clinical Nutrition Comments: Received call from team to start calorie count. Pt expected to advance diet today. Pt going for an MBS this afternoon. Placed calorie count sheets in room - please record PO intake. Will follow up with calorie count results on Wednesday (11/01). Diet order accuracy Current diet order: NPO Current tube feeding order: Osmolite 1.2 at 40 ml/hr + Beneprotein BID Nutrition recommendation: alter/change nutrition order P.O.Intake for the past 48 hrs:% Meal Taken Av % Min: 0 % Max: 0 % Height: 5' (152.4 cm) Weight: 108 lb 0.4 oz (49 kg) Body mass index is 21.1 kg/(m^2).BMI Range: Normal Laboratory values reviewed. Medications noted. No acute nutrition issues identified at this time. Recommendations: Advance diet per PURCHASER. Monitor nutrition per nutrition guidelines. Khadijah Bradshaw RD/NATHAN * Billy Deleon RN - 10/29/2017 1:35 PM CDT 0135: two transporters came at same time for patient to go to dialysis and x-ray for barium swallow; called team and doctor stated to go to x-ray for barium swallow * Minal Mallory RN - 10/29/2017 12:23 PM CDT CM met with the patient and her son regarding the recommendations for SNF.The patient's son stated they are interested in SNF placement and the patient nodded in agreement. He stated his father wouldnot be up to discuss the options until approximately 1600. CM provided the son and patient a list of SNF near the patient's home. CADE will meet with the patient and her later today. automation and controls manager will continue to follow for discharge disposition. Minal Mallory RN, BSN Full Stack Software Developer ext. #[phone] * Jennifer Louis MD - 10/29/2017 10:38 AM CDT GI Service Attending Note 10/29/2017 10:38 AM I have personally seen and examined this patient with the resident or fellow today and I confirm their assessment and plan. My findings are outlined below. Subjective and events of past 24 hours: Feeling some stronger. More alert. Very soft voice. Went down for modified barium swallow reviewed.Unable to obtain. Patient pulled out enteric feeding tube and has been tearing off dressings. has encouraged her to let them be. PE: BP 97/62 Pulse 65 Temp 97.2 ??F (36.2 ??C) Resp 18 Ht 1.524 m (5') Wt 49 kg (108 lb 0.4 oz) SpO2 100% BMI 21.1 kg/m2 More alert + jaundice Bedside swallow with water without coughing. Slightly delayed swallow initiation. Abdomen with moderate ascites Multiple dark purple ecchymoses, areas of skin tearing from where she removed dressing. No LE edema Relevant labs and imaging: Recent Labs Component Name 10/29/17 0539 10/29/17 0008 10/28/17 0845 10/28/17 0531 10/27/17 0411 10/14/17 2239 09/03/17 TBILI - 1.4* 1.4* - 1.3* 1.8* - - - 0.7 ALKPHOS - 460* 460* - 453* 796* - - - 172* ALT - 22 22 - 16 27 - - - 12 AST - 40* 40* - 28 50* - - - 25 ALB - 3.3* 3.3* - 3.6 3.6 - - - 2.3* NA - 139 - 140 139 - - - 126* K - - - - - - 3.4* - 5.2* CREATININE - 1.4* - 1.3* 0.8 - - - - HGB 7.6* 7.4* 7.1* 6.9* 9.3* - - - 10.3* WBC 10.6* 10.1 - 9.7 18.4* - - - 10.0 PLT 64* 59* - 38* 39* - - - 602* INR - 1.1 - 1.3 1.2 - - - 1.07 - = values in this interval not displayed. Impression: 1. Profound debilitation, cachexia, severe protein calorie malnutrition, muscle wasting. 2. Recent septic shock/pneumonia; antibiotics completed 3. Decompensated cirrhosis, Non alcoholic steatohepatitis by report (possible lean HERNANDEZ); MELD 12 -work up in progress for other etiology 1. Hepatic hydrothorax, ascites; LVPs 2. Portosystemic encephalopathy, improved 3. Esophageal varices, no EGD 4. Possible adrenal insufficiency; switched to HC replacement doses. 5. Renal failure; acute tubular necrosis vs. hepatorenal syndrome. 6. Possible aspiration risk, passed my bedside swallow; patient removed enteral feeding tube this am. Plan: 1. Dialysis as per renal team 2. Speech therapy evaluation 3. Calorie count 4. PT/OT 5. Continue lactulose 6. Continue seroquel 7. Monitor mood, may benefit from antidepressant; however recovering from portosystemic encephalopathy and delirium. 8. Continue replacement hydrocortisone. Plan cosyntropin stim test Wednesday. Disposition: make arrangement for rehab, hopefully early next week. Jennifer Louis MD Gastroenterology and Hepatology Attending Pager [phone] * Judie Monet, PT - 10/29/2017 9:17 AM CDT 10/29/17 0900 Missed Visit Missed Visit Procedure off the floor. Will continue to follow. * Andrew Ruiz MD - 10/29/2017 7:39 AM CDT Vick Progress Note 10/29/2017, 7:39 AM Patient: Rosa Li Room: 902/902-01 Admit Date: 10/14/2017. Hospital Day: 15 For hospital course please see end of the note Subjective: No acute events overnight. Permacath was placed yesterday without any complications This morning complains of being frustrated with her stay in the hospital. Objective: Patient Vitals for the past 8 hrs: BP Temp Pulse Resp SpO2 10/29/17 0457 89/60 98.3 ??F (36.8 ??C) 78 20 100 % 10/29/17 0011 93/58 97.6 ??F (36.4 ??C) 82 18 98 % Intake/Output Summary (Last 24 hours) at 10/29/17 0739 Last data filed at 10/29/17 0000 Gross per 24 hour Intake 260 ml Output 0 ml Net 260 ml General - Appears older than stated age, NAD, cachetic HEENT - NC/AT, PERRL, EOMI, clear conjunctivae, left Wang Neck - Supple, no LAD, no JVD, significant midline bruise Chest - CTAB no w/c/r CV - Holosystolic murmur, no radiations, 3/6 Abdomen - Soft, distended, wave sign (significant ascites) not tender Extremities - No peripheral edema Skin - petichiae/ecchymoses in bilateral upper extremities Neurologic - A&O x 3, CN II-XII intact, 2/5 UE and LE strength Psych - Appropriate mood and affect Data Review Recent Labs Component Name 10/29/17 0539 10/29/17 0008 10/28/17 0845 10/28/17 0531 WBC 10.6* 10.1 - 9.7 HGB 7.6* 7.4* 7.1* 6.9* HCT 22.6* 23.0* - 21.1* PLT 64* 59* - 38* MCV 97.8* 100.4* - 99.1* Recent Labs Component Name 10/29/17 0008 10/28/17 0531 10/27/17 04110/26/17 2303 CALCIUM 9.1 9.2 9.6 9.5 PHOS - 4.0 1.2* 1.1* Recent Labs Component Name 10/29/17 0008 10/28/1731 10/27/17 04110/14/17 2239 09/03/17 NA 139 140 139 - - - 126* K - - - - 3.4* - 5.2* CL 105 105 103 - - - 90* CO2 20* 24 25 - - - 25.0 BUN 45* 34* 20 - - - 17 CREATININE 1.4* 1.3* 0.8 - - - - GLU 127* 167* 131* - - - 121* - = values in this interval not displayed. Recent Labs Component Name 10/29/178 10/28/1753010/27/1741010/25/17 0838 08/07/17 0201 PROT 5.1* 5.1* 5.3* 6.0 - - - - ALB 3.3* 3.3* 3.6 3.6 - - - - ALKPHOS 460* 460* 453* 796* - - - - AST 40* 40* 28 50* - - - - ALT 22 22 16 27 - - - - TBILI 1.4* 1.4* 1.3* 1.8* - - - - DBILI 0.7* - - - 0.9* - 0.3 - = values in this interval not displayed. Recent Labs Component Name 10/29/178 10/28/1731 10/27/17410 PT 14.1 15.6* 15.0* INR 1.1 1.3 1.2 PTT 30.3 37.4 39.6* Recent Labs Component Name 10/27/1741008/07/17 0859 08/07/17 0142 TROPONINI 0.070* <0.010 0.017 MELDScore MELD-Na score: 12 at 10/29/2017 12:08 AM MELD score: 12 at 10/29/2017 12:08 AM Calculated from: Serum Creatinine: 1.4 mg/dL at 10/29/2017 12:08 AM Serum Sodium: 139 mmol/L (Rounded to 137) at 10/29/2017 12:08 AM Total Bilirubin: 1.4 mg/dL at 10/29/2017 12:08 AM INR(ratio): 1.1 at 10/29/2017 12:08 AM Age: 57 years Current Medications hydrocortisone 15 mg Oral QDAY pantoprazole 40 mg Intravenous BID QUEtiapine 25 mg Oral AT BEDTIME midodrine 10 mg Oral q8h lactulose 10 g Enteral Tube BID insulin aspart 0-6 Units Subcutaneous q6h 0.9% NaCl ??? glucose (Diabetic Use) ??? dextrose ??? glucagon ??? albuterol-ipratropium Microbiology ?? Blood culture NG ?? Sputum NG ?? Urine NG ?? Imaging ?? CT chest 10.15.2017 1. No evidence of pulmonary embolism, however, [...] hepatic segment 8 likely representing a hemangioma. ?? Echocardiogram 10/27 Sinus rhythm. The left ventricular cavity size, wall thickness, systolic and diastolic function are normal/hyperdynamic with no regional wall motion abnormalities present. EF 81%. Normal left ventricular diastolic function. No aortic stenosis. Mildtomoderate aortic valve regurgitation. Trace mitral regurgitation. No mitral valve stenosis. Normal left atrial size. The right ventricular cavity size is normal. The right ventricle wall thickness is normal. There ishyperdynamic right ventricular systolic function. Normal estimated right ventricular systolic pressure, 17 mmHg. Normal right atrial size. Assessment of the IVC indicates normal right atrial pressure. Trace tricuspid valve regurgitation. Borderline infundibular pulmonary stenosis noted. Hyperdynamic narrowed out flow tract. Trivial pulmonary valve regurgitation.There is no pericardial or pleural effusion. Right heart has normalized compared to prior ECHO. Infundibular borderline pulmonary stenosis due to hyperdynamic RV Assessment/Plan: ?? Dysphagia Likely oropharyngeal form prolonged intubation Unlikely Esophagitis vs stricture vs NM vs other Currently on tube feeds, failed swallow test -Obtain Modified barium swallow today ?Oliguric JENNIFER Etiology unclear, likely HRS in the setting of underlying cirrhosis triggered by sepsis Requiring renal replacement therapy since 10/15, CRRT stopped on 10/26 No evidence of renal recovery Plan to place a permacath by IR 10/28 Pending HD today ? Severe deconditioning Malnutrition, significant loss of muscle mass Likely secondary to critically ill and no p.o intake Although since May she complained of severe weight loss, improved with food enzymes - will bring nutritional supplements -Continue Tube feeds -PT/OT -Reassess goals of care ?Encephalopathy Multifactorial: sepsis, hepatic encephalopathy, delirium -Continue Lactulose to target 3-4 bm/d -Continue Seroquel -Neuro checks ?Hypotension Underlying cirrhosis +/- adrenal insufficiency? ??-Continue Midodrine 10mg TID - Hydrocortisone switched to oral 15mg yest - Stim test on Wednesday (after 3 days of physiologic dose of steroids to avoid confusion) ?? HERNANDEZ Cirrhosis -MELD-Na Score 11 -Etiology HERNANDEZ ??? Unclear since liver biopsy not consistent ---> obtain rest of cirrhosis w/u -Decompensated when HE, ascites or infection -HE : continue lactulose -EV : no EGD in system -Ascites: LVP Q2 w as outpatient, not on diuretics- -SBP : none prior -HCC: none seen on CT 10/2017 -Transplant : not a candidate: severe deconditioning and smoking ? Cholestasis Ischemic cholangiopathy from HoTN, vs congestive hepatopathy transient while RV dysfunction vs sepsis vs DILI (herbal supplements) AP ~700, elevated GGT and normal Tbili Non dilated bile ducts on CT 10/19 -Monitor CMP ?? Septic shock - Resolved From community acquired pneumonia Completed antibiotic tx Zosyn 10/24, off pressors ? Acute hypoxic respiratory failure - Resolved Secondary to CAP Intubated on 10/14 extubated on 10/25 Completed antibiotic 10/24 -Duonebs Q4h prn ? Pleural effusion Thoracentesis 10/15 - transudative Likely hepatic hydrothorax Monitor ? Leukocytosis Significantly improved with decrease of steroids Monitor FEN: Keep K~4, Phos~3, and Mg~2 DVT prophylaxis: Code status: TSL 1 Andrew Ruiz MD PGY-2, Internal Medicine 10/29/2017, 7:39 AM Brief Hospital Course ?? Ms. 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 On admission to [facility] admission was found to have bilateral pneumonia as the source of septic shock, was continued on pressors, antibiotics were switched to vancomycin and zosyn, thoracentesis result were consistent with a transudate, completed antibiotic regimen with Zosyn on 10/23 , pressors were disc ontinued on 10/24 and was successfully extubated on 10.25, currently on 2 liters NC. MICU stay was complicated by the following: -Encephalopathy attributed to sepsis and HE, now stable with lactulose and seroquel -Oliguric JENNIFER, max Cr 2.0 anuric and AGMA, was attributed to HRS triggered by sepsis, CRRT started on 10/19, stopped on 10/26 without signs of renal recovery, nephrology plans to place permacath and start HD. -Hyponatremia down to 115 mEq attributed to SIADH and underlying cirrhosis, improved with fluid restriction and CRRT,now 139 mEq. ?? 10/27 transfer to floor 10/28 IR permacath placed * Florencio Caruso RN - 10/28/2017 2:41 PM CDT Procedure complete vss per baseline. Perm cath in place, CHG dressing to site, pt to be moved to holding and awaiting transport, report called to floor * Florencio Caruso RN - 10/28/2017 2:40 PM CDT Pt on tbl attached to monitor vss per baseline, site prepped and physician at bedside ready to start procedure * Nathalie Arevalo MD - 10/28/2017 2:16 PM CDT IP Sedation Pre Date/Time: 10/28/2017 2:16 PM Performed by: Nathalie Arevalo Authorized by: Nathalie Arevalo Unit: IR Consent: Verbal consent obtained. Written consent obtained. History & Exam Attestation: I have reviewed the pre-procedure nursing assessment: Yes Brief history and exam related to procedure complete: Yes H&P was reviewed, the patient was examined, and that ? no changes? have occurred in the patient? s condition since the H&P was complete: Yes History of previous anesthetic problems/complications including family history: No History of airway problems: No Tracheal deviation: No Short thick neck/non-visible neck: No Neck with limited range of motion: No Visible anterior neck mass: No Small mouth opening/ and/or sub/mental space (less than 3 finger breadths): No Protruding upper teeth: No Oxygen saturation less than 91% on room air: No Pre-Procedure ASA Classification: ASA 3 Mallampati Classification: Class II Procedure Plan: Moderate Sedation Based on the pre-procedure assessment, History and Physical, and allergy history, this patient is asuitable candidate for sedation during the planned procedure. 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 Nathalie Arevalo MD * Nancy Fox COTA - 10/28/2017 1:42 PM CDT [facility] Department of Physical Medicine & Rehabilitation Progress Note Patient: Rosa Li [facility] Record Number: [id number] Date of : 1960 Age: 57 y.o. 10/28/17 1300 Missed Visit Missed Visit Procedure off the floor. Will continue to follow. Patient off the floor at Other. (Dialysis Cathater Placement) Name of ALEJANDRO Moss Was with pt from [id number] when transporter came in to take pt down for procedure. Will continue tofollow pt. Nancy AUGUSTO Fox 10/28/2017 1:43 PM * Judie Monet, PT - 10/28/2017 1:41 PM CDT 10/28/17 1300 Missed Visit Missed Visit Procedure off the floor. Will continue to follow. * Chun Hidalgo MD - 10/28/2017 1:06 PM CDT Nephrology Attending Physician I have seen and examined the patient with house-staff on rounds at 1025. I agree with the house-staff note with the additions/modificiations listed below. History: Initial Hx from chart 56 year old woman with HERNANDEZ cirrhosis with recurrent ascites, transferred from another hospital in septic shock (due to ? Pneumonia) , hyponatremia and JENNIFER (BL Cr 0.8). She has been needing pressors for pressure support in addition to mechanical ventilation. Initial workup: Imaging of kidneys (limited abdominal US , Rt kidney with increased echogenicity but no hydronephrosis)- upper part of left kidney appears normal on chest CT- Urine Na < 20, UA suggestive of UTI. TTE 05/2017, EF 55% After aggressive volume removal via CRRT patient was successfully extubated 10/26 CRRT was stopped 10/26 Interval History: Comfortable- transferred to the floors A little confused No CP or SOB MEDICATIONS FOR CURRENT ENCOUNTER: SCHEDULED MEDICATIONS: Followed by hydrocortisone (CORTEF) tablet 15 mg, Oral, QDAY insulin aspart (NovoLOG) pen 0-6 Units, Subcutaneous, q6h lactulose (CHRONULAC) solution 10 g, Enteral Tube, BID midodrine (PROAMATINE) tablet 10 mg, Oral, q8h pantoprazole (PROTONIX) injection 40 mg, Intravenous, BID QUEtiapine (SEROquel) tablet 25 mg, Oral, AT BEDTIME [COMPLETED] albumin human 5 % infusion 25 g, Intravenous, Once [COMPLETED] albumin human 5 % infusion 25 g, Intravenous, Once ?? [COMPLETED] sodium phosphate 15 mmol in dextrose 5 % 255 mL bolus, Intravenous, Once ?? CONTINUOUS MEDICATIONS: PRN MEDICATIONS: 0.9% NaCl infusion for blood, Intravenous, Once PRN albuterol-ipratropium (DUO-NEB) nebulizer solution 3 mL, Inhalation, q4h PRN dextrose IV 12.5-25 g, Intravenous, PRN glucagon (GLUCAGEN) injection 1 mg, Intramuscular, PRN ?? glucose (Diabetic Use) oral gel, Oral, PRN Exam/Data : Patient Vitals for the past 6 hrs: Temp Pulse Resp BP BP Method 10/28/17 1241 99.1 ??F (37.3 ??C) 78 18 89/60 - 10/28/17 0815 97.6 ??F (36.4 ??C) 78 18 90/58 Automatic Estimated body mass index is 21.1 kg/(m^2) as calculated from the following: Height as of this encounter: 1.524 m (5'). Weight as of this encounter: 49 kg (108 lb 0.4 oz). Intake/Output Summary (Last 24 hours) at 10/28/17 1307 Last data filed at 10/28/17 0921 Gross per 24 hour Intake 100 ml Output 0 ml Net 100 ml General : Comfortable Eyes: normal extraocular movements ENT- NG in place CV- Markedly improved edema Resp- unlabored breathing Abd- soft Musculoskeletal- no joint effustions Skin- no rash Neuro- awake, grossly non-focal ?? Recent Labs 10/28/17 0845 10/28/17 0531 10/27/17 0411 10/26/17 2303 10/26/17 1152 10/26/17 0424 BUN 34 H 20 20 18 18 18 CREATININE 1.3 H 0.8 0.7 0.7 0.7 0.7 NA 140 139 139 136 139 139 POTASSIUM 3.2 L 3.6 3.5 3.8 4.0 4.0 CL 105 103 104 102 103 103 CO2 24 25 24 26 24 24 CALCIUM 9.2 9.6 9.5 9.1 9.4 9.4 MAGNESIUM 2.5 2.3 PHOS 4.0 1.2 L 1.1 L 2.1 L 2.3 HGB 7.1 L 6.9 L 9.3 L 8.9 L WBC 9.7 18.4 H 17.4 H PLT 38 L 39 L 61 L Assessment and Plan: ?? - JENNIFER in the setting of infection (penumonia), low urine sodium: required CRRT (stopped 10/26) - Liver cirrhosis with ascites - Hyponatremia in the setting of JENNIFER + cirrhosis: improved with CRRT - Thrombocytopenia - Pneumonia with septic shock: shock resolved - frailty, malnourishment ?? 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 Will need a tunneled dialysis catheter to continue regular dialysis treatments. She is markedly malnourished and frail after a severe acute illness- will require aggressive nutrition/PT/OT interventions. Would continue to limit free water intake to less than 1.2 liters daily as she is at risk of hyponatremia. Next HD 10/29 pending tunneled dialysis catheter placement Above d/w , 10/28 * Codey Martinez SLP - 10/28/2017 1:05 PM CDT [facility] Department of Physical Medicine & Rehabilitation Progress Note Patient: Rosa Li [facility] Record Number: [id number] Date of : 1960 Age: 57 y.o. 10/28/17 1300 Missed Visit Missed Visit MBS scheduled for today will be completed tomorrow given Pt remains NPO for permacath placement. Codey Martinez M[facility] Speech Language Pathologist Pager: [phone] * Judith Mathis - 10/28/2017 11:52 AM CDT Wharf Tally Clerk made follow up visit with pt and Ralph, after pt recently moved out of ICU to floor. Pt awake and talked by whispering, telling me of nightmares she had when in ICU and the troubles she's having sleeping. I encouraged her to possibly listen to music instead of having TV on to limit stimulation and continued to provide compassionate listening, prayer and support. Pt's became very teary and emotional and I took him to the quiet room to provide space for him to share his feelings and concerns. He talked at length of his his worries that pt won't tolerate dialysis treatment and his and doctors' agreement not to code pt. I spent time providing listening support and encouragement as he told of his fears, worries that he is acting selfishly by not feeling willing to let go and his attempts to surrender this all to God and the difficulties he's had of feeling so helpless. I prayed with him, providing words of comfort and encouraged him to stay and spend some timeby himself for a bit. I will continue to follow; please page if needed. 10/28/17 1100 10/28/17 1101 Visit Type Assessment Date 10/28/17 -- Wharf Tally Clerk Visiting Patient Del -- Pastoral Care Visit Type Follow Up Family Support Encounter Type Patient and Family Family * Jennifer Louis MD - 10/28/2017 10:26 AM CDT GI Service Attending Note 10/28/2017, 10:26 AM I have personally seen and examined this patient with the resident or fellow today and I confirm their assessment and plan. My findings are outlined below. Subjective and events of past 24 hours: Rosa Li is a 57 y.o. female with HERNANDEZ cirrhosis, transferred from ICU to our team. 10/11 presentation with septic shock and respiratory failure. Transferred to [facility]. Bilateral pneumonia as source of septic shock. Rx: vancomycin and zosyn. Completed Zosyn. Pressors discontinued 10/24. Extubated 10/25. + portosystemic encephalopathy, treated with lactulose. Oliguric acute kidney injury, anuric. CRRT 10/19/17, stopped 10/26. No signs of renal recovery. Hyponatremia as low at Na 115. Improved. Fluid restriction, CRRT. Always low BP, has been on midodrine in past. Oxygenating on 2L. Profoundly debilitated. Prior tap neg for SBP. Non verbal. Tolerating tube feeding PE: BP 90/58 Pulse 78 Temp 97.6 ??F (36.4 ??C) Resp 18 Ht 1.524 m (5') Wt 49 kg (108 lb 0.4 oz) SpO2 100% BMI 21.1 kg/m2 + jaundice Non verbal NG tube in L wang cath Extensive bruising holosys murmur Ascites, non tender Relevant labs and imaging: Recent Labs Component Name 10/28/17 0845 10/28/17 0531 10/27/17 0411 10/26/17 2303 10/26/17 0424 10/14/17 2239 09/03/17 TBILI - 1.3* 1.8* - - 1.7* - - - 0.7 ALKPHOS - 453* 796* - - 779* - - - 172* ALT - 16 27 - - 23 - - - 12 AST - 28 50* - - 44* - - - 25 ALB - 3.6 3.6 3.4 - 3.5 3.5 - - - 2.3* NA - 140 139 139 - 139 139 - - - 126* K - - - - - - - 3.4* - 5.2* CREATININE - 1.3* 0.8 0.7 - 0.7 0.7 - - - - HGB 7.1* 6.9* 9.3* - - 8.9* - - - 10.3* WBC - 9.7 18.4* - - 17.4* - - - 10.0 PLT - 38* 39* - - 61* - - - 602* INR - 1.3 1.2 - - 1.2 - - - 1.07 - = values in this interval not displayed. MELD-Na score: 13 at 10/28/2017 5:31 AM MELD score: 13 at 10/28/2017 5:31 AM Calculated from: Serum Creatinine: 1.3 mg/dL at 10/28/2017 5:31 AM Serum Sodium: 140 mmol/L (Rounded to 137) at 10/28/2017 5:31 AM Total Bilirubin: 1.3 mg/dL at 10/28/2017 5:31 AM INR(ratio): 1.3 at 10/28/2017 5:31 AM Age: 57 years Biopsy: diffuse fat Impression: 1. Recent septic shock/pneumonia; completed antibiotics 2. Decompensated cirrhosis, said to be Non alcoholic steatohepatitis. Possible lean HERNANDEZ. However chronically elevated alkaline phosphatase. Negative AMA. Steatosis on biopsy but also with biliary stasis, moderate portal inflammation. 3. Severe deconditioning/malnutrition, muscle wasting 4. Malnutrition, tolerating tube feeding. Not a candidate for PEG. 1. Dysphagia with failed bedside swallow 5. Ascites 6. Renal failure, ATN vs. HRS 1. CRRT stopped 10/26 2. No renal recovery, per renal plan to start hemodialysis. 7. Hypotension, on midodrine. Plan: 1. PT/OT 2. Work towards placement 3. Dialysis per renal 4. Change HC to po 15 mg 5. In three days check cortrosyn stimulation 6. Continue midodrine 7. Continue lactulose. 8. Continue goals of therapy discussion Disposition: will need placement for continued rehab with dialysis. Jennifer Louis MD Gastroenterology and Hepatology Attending * Torey Maganaia, DO - 10/27/2017 2:33 PM CDT ICU Progress Note 10/27/2017 2:33 PM Date of Admission: 10/14/[address] Flynn: Ms. Li??is a 56 y.o.??female??w/ hx of HERNANDEZ-cirrhosis c/b ascites requiring LVPs q1-2 weeks, chronic hypotension, and cholestatic obstructive disease s/p cholecystectomy is transferred from [facility] where she presented 10/11 with hyponatremia at 115, acute respiratory failure requiring intubation (10/14) and shock. At OSH LVP negative for SBP. Lg R effusion on CXR. Shock requiring PICC and pressors at OSH. Started on CTX and Flagyl. ?? Here at [facility] she continued to require levophed, continued broad spectrum abx changed to vanc/zosyn for suspected PNA - cultures negative to date so vancomycin discontinued and zosyn continued for 10 day course (EOT 10/23). CT PE showing no PE but b/l GGOs suggesting??infection. Thoracentesis was transudate. Admission Na was 122, and is persistently low here, but improved with free water restriction and CRRT. Admitted with oliguric JENNIFER worsening and AGMA despite treating sepsis which was thought sabra 2/2 Type 1 HRS so started on CRRT on 10/19 as well albumin, octreotide subq (2 week course), midodrine and levofed to maintain MAPS>65. On 10/19 had repeat paracentesis that was negative for SBP. 10/19-10/24: CRRT UF increased as tolerated to reduce volume overload state and optimize extubation success. 10/25: extubated successfully. CRRT continued for UF only. Interval invents: No acute events overnight. Per nursing, she did not sleep last night and appears somewhat confused today. On my exam, pt is drowsy but answering questions appropriately. Medications: QUEtiapine 25 mg Oral AT BEDTIME midodrine 10 mg Oral q8h hydrocortisone sodium succinate PF 50 mg Intravenous QDAY lactulose 10 g Enteral Tube AT BEDTIME insulin aspart 0-6 Units Subcutaneous q6h Infusions: PRN Medications: 0.9% NaCl??? glucose (Diabetic Use)??? dextrose??? glucagon??? albuterol-ipratropium OBJECTIVE: Vital Signs: Temp: [94 ??F (34.4 ??C)-96.5 ??F (35.8 ??C)] 96.5 ??F (35.8 ??C) Pulse: [62-85] 67 Resp: [15-25] 18 BP: (82-101)/(51-67) 88/58 O2 %: [21 %-28 %] 24 % Wt Readings from Last 3 Encounters: 10/25/17 : 49 kg (108 lb 0.4 oz) 08/08/17 : 39.9 kg (87 lb 14.4 oz) 08/06/17 : 37.2 kg (82 lb) Intake/Output Summary (Last 24 hours) at 10/27/17 1433 Last data filed at 10/27/17 0800 Gross per 24 hour Intake 1153 ml Output 1486 ml Net -333 ml General: alert, well appearing, and in no distress and oriented to person, place, and time. Neurologic AAO x3, No focal deficits noted HEENT: Normocephalic, mucosa normal, no drainage. Conjunctivae/corneas clear, PERRL, Trachea midline, no JVD, no LAD Lungs: Clear to auscultation bilaterally, no crackles, no wheezes, good air movement Heart: RRR, S1 and S2 normal, no murmur appreciated. Abdomen: distended, Bowel sounds normal, soft, non-tender Extremities: hip edema b/l , No cyanosis, Pulses 2+ and symmetric all extremities Skin: ecchymosis On UE b/l Data Review: CBC: Recent Labs Component Name 10/27/1741010/26/17 0424 10/25/17 0500 10/24/17 0444 10/23/17 0556 WBC 18.4* 17.4* 22.8* 13.0* 10.2 HGB 9.3* 8.9* 9.1* 8.7* 8.4* PLT 39* 61* 65* 63* 52* MCV 95.6 95.0 94.8 93.9 90.0 BMP: Recent Labs Component Name 10/27/1741010/26/17230210/26/17 11510/26/17 04210/25/17214810/14/179 09/03/17 NA 139 139 136 139 139 139 - - - 126* K - - - - - - 3.4* - 5.2* CL 103 104 102 103 103 103 - - - 90* CO2 25 24 26 24 24 25 - - - 25.0 BUN 20 20 18 18 18 19 - - - 17 CREATININE 0.8 0.7 0.7 0.7 0.7 0.7 - - - - GLU 131* 208* 210* 131* 131* 133* - - - 121* - = values in this interval not displayed. Recent Labs Component Name 10/27/1741010/26/17230210/26/17115110/26/1742310/25/179 CALCIUM 9.6 9.5 9.1 9.4 9.4 9.5 PHOS 1.2* 1.1* 2.1* 2.3 2.2* LFT: Recent Labs Component Name 10/27/1741010/26/17230210/26/17 11510/26/17 0424 10/25/17 2149 10/25/17 0838 10/25/17 0500 10/24/17 0316 10/23/17 0348 08/07/17 0201 PROT 6.0 - - 5.8* - - - 6.0 - 5.5* - 4.6* - - ALB 3.6 3.4 3.4 3.5 3.5 3.4 - - 3.4 3.4 - 3.4 3.4 - 3.0* 3.0* - - ALKPHOS 796* - - 779* - - - 652* - 470* - 304* - - AST 50* - - 44* - - - 30 - 25 - 29 - - ALT 27 - - 23 - - - 17 - - - TBILI 1.8* - - 1.7* - - - 1.5* - 1.6* - 1.8* - - DBILI - - - - - - 0.9* - - - - - - 0.3 IBILI - - - - - - 0.6 - - - - - - 0.2 - = values in this interval not displayed. Coagulation: Recent Labs Component Name 10/27/17 0411 10/26/17 0424 10/25/17 0500 10/24/17 0339 10/23/17 0348 PT 15.0* 15.5* 12.5 14.1 15.3* INR 1.2 1.2 1.0 1.1 1.2 Cardiac markers: Recent Labs Component Name 10/27/17 0411 08/07/17 0859 08/07/17 0142 TROPONINI 0.070* <0.010 0.017 ABG: No results for input(s): BASEEXCESS in the last 04187 hours. Invalid input(s): PHART, FHF3TIQ, PO2ART, ZVM3WWM, SO2ABG, FOHBABG Xr Abdomen Kub Result Date: 2017 FINDINGS/IMPRESSION: An enteric tube tip terminates in the gastric body with the side-port near theGE junction. Surgical clips are noted in the upper abdomen. No abnormally dilated loops of bowel gas are identified. ASSESSMENT & PLAN: Neurological: Acute encephalopathy, Improved - ddx sepsis vs ICU delirium vs HE - off sedation - cont to reorient her, sleep at night and stay awake during the day - will start on seroquel at bedtime to help maintain sleep-awake cycle - lactulose 10g qd for BM 2-3 per day Cardiovascular: Septic shock, resolved - likely 2/2 PNA - off pressors since 10/24 - will decrease midodrine to 10mg tid - cont to wean off hydrocortisone - s/p Zosyn x 10 days Core pulmonale - will repeat TTE limited to assess PASP Pulmonary: Acute hypoxic respiratory failure, resolved - Likely 2/2 PNA vs pulmonary edema in the setting of fluid overload - s/p thoracenteses 10/15 with transudative effusion - extubated on 10/15, now on 2L of O2 via NC - s/p 10 days of Zosyn for PNA - duonebs q4h prn Pleural effusion - likely hepatic hydrothorax - resolved with Thora on 10/15 (transudative) GI: HERNANDEZ cirrhosis - not a transplant candidate due to smoking - MELD-Na score: 11 at 10/27/2017 4:11 AM MELD score: 11 at 10/27/2017 4:11 AM Calculated from: Serum Creatinine: 0.8 mg/dL (Rounded to 1) at 10/27/2017 4:11 AM Serum Sodium: 139 mmol/L (Rounded to 137) at 10/27/2017 4:11 AM Total Bilirubin: 1.8 mg/dL at 10/27/2017 4:11 AM INR(ratio): 1.2 at 10/27/2017 4:11 AM Age: 57 years - Autoimmune evaluation positive p-ANCA 1:20 but negative MPO ab. -HE: continue lactulose 10g qd. -EV no prior -Ascites - s/p LVP 3L 10/19, no SBP -HCC - US neg Nutrition: - currently on tube feeds - failed swallow test - ordered Modified Barium Swallow Renal: Oliguric JENNIFER - likely 2/2 HRS type 1 - s/p octreotide gtt for 2 weeks total. EOT 10/25 - on CRRT - plan to place perm cath by IR 10/28 - NPO after MN, hold tube feeds Endocrine: -Accuchecks Q4 hours; target glucose 140 - 180 ID: CAP c/b septic shock and respiratory failure requiring intubation - sputum and blood cx NGTD - s/p 10 days of Zosyn - Johnson culture if Tmax > 100.4 Heme/Onc: Normocytic Anemia - likely 2/2 sepsis vs ICU phlebotomy vs CRRT - CT negative for RP bleed on 10/19 - cont to monitor Thrombocytopenia - 180's on admission->30's today - likely 2/2 cirrhosis and sepsis - HIT panel neg - holding pharmacologic DVT ppx - Transfusion protocol: Hb <7, Platelets <10 Lines: - . NG 10/26. LIJ 10/18 Prophylaxis: - Aspiration precautions w/ HOB elevation by 30 degrees - DVT prophylaxis w/ SCDs Activity: - Bed Rest Disposition: MONISHA Magana DO 10/27/2017 2:33 PM Associated attestation - Reuben Tellez MD - 10/28/2017 12:[address] [facility] Critical Care Medicine (MICU) Attending Note Date of service: 10/27/2017 The patient seen, reviewed history,examined and discussed with residents and MICU Team. I have reviewed and agree with resident note except as noted below: Pt/ot Tube feeds Intermittent HD May need repeat LVP Goal net neg volume status Delirium: 2/2 sepsis, poor sleep, liver failure, renal failure etc. -reorientation -quetiapine at night -avoid benzos -lactulose Active Hospital Problems Acute encephalopathy Priority: Not Prioritized [19] Date Noted: 10/19/2017 Acute respiratory failure with hypoxia Priority: Not Prioritized [19] Date Noted: 10/19/2017 JENNIFER (acute kidney injury) Priority: Not Prioritized [19] Date Noted: 10/19/2017 Liver cirrhosis secondary to HERNANDEZ Priority: Not Prioritized [19] Date Noted: 10/19/2017 Cor pulmonale (chronic) Priority: Not Prioritized [19] Date Noted: 10/19/2017 Septic shock Priority: Not Prioritized [19] Date Noted: 10/14/2017 * Shanda Temple OT - 10/27/2017 2:31 PM CDT [facility] Physical Medicine and Rehabilitation Occupational Therapy Progress Note Patient: Rosa Li Med Record Number: [id number] Date of : 1960 Age: 57 y.o. Co-treat with PT Recommendation: Patient will benefit from inpatient multidisciplinary therapies Plan: OT Frequency: 5 Times/Week Subjective: Patient with soft voice, states I'd like to go outside. At start of therapy session, patient found in bed. Pain: Patient has 0 out of 10 pain. Activities of Daily Living Feeding: NT Grooming/Bathing: Minimal assist comb hair seated in chair using B/L UE during task Upper Extremity Dressing: not tested Lower Extremity Dressing: not tested Toileting/Transfers: not tested Mobility: Assist device: none Supine to/from Sit:Moderate assist of 1 Sit to/from Stand: Moderate/maximal assist x 1 Bed to/from Chair: Maximal assist x 1 for stand pivot transfer from bed to w/c and w/c to bed, patient holds to therapist during transfer Functional Mobility: not tested Splint Issued/Checked: none Splint Check Completed: N/A Balance: Static Sitting: fair Dynamic Sitting: fair minus Static Standing: poor Dynamic Standing: poor Activity Tolerance: Patient tolerates 25 minutes seated in w/c this date with O2 sats stable on 5 Lduring activity. Patient's activity tolerance: fair Cognitive/Perceptual: Alert and oriented x self, month, hospital with min confusion at times in conversation. Follows 1 step commands 100% with verbal/tactile cues. Fair- safety awareness/insight. Patient with good participation this date, improved affect with mobility in w/c out of hospital room. Treatment/Therapeutic Exercise: Treatment session this date focused on ADL training Functional transfer training Endurance training Bed mobility Safety awareness Patient/Family Teaching: Mobility and Self care Equipment Issued: none Update Treatment Plan/Goals : Pt continues to benefit from skilled OT to improve independence with activities of daily living, increase strength, endurance, range of motion and decrease pain. Continue goals per POC. Short Term Goals: Cognition: ??1 step commands and 100% of the time- MET Patient will perform grooming ??At edge of bed and With min assist Patient will perform supine to sit ??With mod assist and X 1 Patient will perform sit to stand with moderate assist x 1 Patient will tolerate treatment 15 minutes and with fair endurance Crepe Sole Scourer Goal:Patient to discharge to appropriate next level of inpatient care If patient is discharged from the facility, this note serves as a discharge note if further occupational therapy visits did not occur. Following therapy session, patient left in bed, with family in room and with RN, Sun shipman. Shanda Temple OT * Shanda Temple OT - 10/27/2017 2:31 PM CDT [facility] Department of Physical Medicine & Rehabilitation Progress Note Patient: Rosa Li Med Record Number: [id number] Date of : 1960 Age: 57 y.o. 10/27/17 1400 PERME Score Alertness 2 Follow Commands 1 Mechanical or Noninvasive Ventilation 1 Pain 1 LDAs or Devices 0 Intravenous Infusions 1 Functional Strength: Right Arm 1 Functional Strength: Left Arm 1 Functional Strength: Right Leg 0 Functional Strength: Left Leg 0 Bed Moblitity: Supine to Sit 1 Bed Mobility: Static Sitting 3 Transfers: Sit to Stand 2 Transfers: Static Standing 1 Transfers: Bed to Chair 1 Gait 0 Endurance 0 PERME Score 16 * Jamee Barrientos - 10/27/2017 2:03 PM CDT Nutrition Re-Assessment Nutrition Recommendations: Advance diet when medically able TF recs are listed below TF Recs: Promote at goal rate 55 mL/hr Provides 1320 kcals, 83 g protein, and 1107 mL free water + FWF 110 mL BID (total free water = 1327 mL) Comments: Pt successfully extubated 10/25. TF recommendations are listed above which meet nutrient needs off of vent. Recommend advancing PO intake as medically able. MAP noted at 64. Initiate TF whenmedially able. CRRT was stopped 10/26. LBM: 10/27. Assessment: Med/Surg History and Clinical Diagnoses: HPI: septic shock, resp failure; PMH: HERNANDEZ cirrhosis, ascites Diet order accuracy Current diet order: NPO Current tube feeding order: Osmolite 1.2 at 40 ml/hr + Beneprotein BID Nutrition recommendation: alter/change nutrition order P.O.Intake for the past 48 hrs:No Data Recorded GI Concerns: None Chewing/Swallowing: Mechanically Altered (vent) Admission weight: Weight: 100 lb 12 oz (45.7 kg) (10/14/17 0464) Filed Wts: 10/21/17 0349 10/22/17 0400 10/23/17 0500 10/25/17 0500 Weight: 114 lb 3.2 oz (51.8 kg) 112 lb 3.2 oz (50.9 kg) 110 lb (49.9 kg) 108 lb 0.4 oz (49 kg) WT Comments: Monitoring IBW/lb (Calculated) Female: 100 Laboratory values reviewed. Medications noted. Skin/Wound: PU - coccyx; wound to Lt arm, Rt hip Estimated Energy Needs: KCAL: 8469-1411 (25-30kcal/kg actual body weight) Protein (g): 59-74 (1.2- 1.5g/kg protein) Fluid (ml): 1 ml/kcal Needs based on: [facility] Recommended Access Route: PO;TF Nutrition Care Process (1) Nutrition Diagnostic Statement: Swallowing difficulty related to:: mechanical ventilation as evidenced by:: --- (intubation.) Nutrition Diagnostic Statement Progress: Nutrition problem continues Resolved Nutrition Care Process (2) Nutrition Diagnostic Statement (2): Inadequate energy intake related to:: diet prescription not meeting energy needs as evidenced by:: calculated energy intake from parenteral/enteral nutrition inadequate to meet estimated requirements Nutrition Intervention: Enteral nutrition: Monitoring: Weights, TF tolerance, PO intake, and labs. Evaluation: Nutrition Goal: Enteral/Parenteral Nutrition prescription will be consistent with estimated nutrient needs Nutrition Goal Timeframe: Ongoing Nutrition Goal Progress: Continue with current goal Jamee Barrientos, Sticker Machine Operator * Yoana Lund RN - 10/27/2017 12:51 PM CDT CRRT/CVVHD NOTE: Report received from Nurse Sun that CVVHD was discontinued by ICU Nurse at 0800 this am and as previous note of Francia Hernandez States, Tx not to be continued if clots off etc. Dr Catrachito Caraballo aware. Yoana Lund RN. * Chun Hidalgo MD - 10/27/2017 11:44 AM CDT Nephrology Attending Physician I have seen and examined the patient with house-staff on rounds at 1020. I agree with the house-staff note with the additions/modificiations listed below. History: Initial Hx from chart 56 year old woman with HERNANDEZ cirrhosis with recurrent ascites, transferred from another hospital in septic shock (due to ? Pneumonia) , hyponatremia and JENNIFER (BL Cr 0.8). She has been needing pressors for pressure support in addition to mechanical ventilation. Initial workup: Imaging of kidneys (limited abdominal US , Rt kidney with increased echogenicity but no hydronephrosis)- upper part of left kidney appears normal on chest CT- Urine Na < 20, UA suggestive of UTI. TTE 05/2017, EF 55% After aggressive volume removal via CRRT patient was successfully extubated 10/26 CRRT was stopped 10/26 Interval History: Comfortable A little confused No CP or SOB MEDICATIONS FOR CURRENT ENCOUNTER: ?? SCHEDULED MEDICATIONS: ?? hydrocortisone sodium succinate PF (Solu-CORTEF) injection 50 mg, Intravenous, QDAY ?? insulin aspart (NovoLOG) pen 0-6 Units, Subcutaneous, q6h ?? lactulose (CHRONULAC) solution 10 g, Enteral Tube, AT BEDTIME ?? midodrine (PROAMATINE) tablet 10 mg, Oral, q8h ?? QUEtiapine (SEROquel) tablet 25 mg, Oral, AT BEDTIME ?? sodium phosphate 15 mmol in dextrose 5 % 255 mL bolus, Intravenous, Once ?? [COMPLETED] K phos & NA phos (K PHOS NEUTRAL) tablet 2 tablet, Oral, Once ?? CONTINUOUS MEDICATIONS: ?? PRN MEDICATIONS: ?? 0.9% NaCl infusion for blood, Intravenous, Once PRN ?? albuterol-ipratropium (DUO-NEB) nebulizer solution 3 mL, Inhalation, q4h PRN ?? dextrose IV 12.5-25 g, Intravenous, PRN ?? glucagon (GLUCAGEN) injection 1 mg, Intramuscular, PRN ?? glucose (Diabetic Use) oral gel, Oral, PRN Exam/Data : Patient Vitals in the past 6 hrs: 10/27/17 1000, Pulse:62, Resp:10/27/17 0910, Pulse:75, Resp:10/27/17 0900, Pulse:79, Resp:10/27/17 0836, Temp:96.5 ??F (35.8 ??C) 10/27/17 0800, Temp:(!) 94 ??F (34.4 ??C), Pulse:62, Resp:15 10/27/17 0700, Pulse:72, Resp:16, BP:95/61, BP Method:Automatic 10/27/17 0600, Pulse:75, Resp:19, BP:101/65, BP Method:Automatic Estimated body mass index is 21.1 kg/(m^2) as calculated from the following: Height as of this encounter: 1.524 m (5'). Weight as of this encounter: 49 kg (108 lb 0.4 oz). Intake/Output Summary (Last 24 hours) at 10/27/17 1144 Last data filed at 10/27/17 0800 Gross per 24 hour Intake: 1153 ml Output: 1845 ml Net : -692 ml General : Comfortable Eyes: normal extraocular movements ENT- NG in place CV- Markedly improved edema Resp- unlabored breathing Abd- soft Musculoskeletal- no joint effustions Skin- no rash Neuro- awake, grossly non-focal ?? Recent Labs 10/27/17 0411 10/26/17 2303 10/26/17 1152 10/26/17 0424 10/25/17 2149 10/25/17 0500 BUN 20 20 18 18 18 19 17 17 CREATININE 0.8 0.7 0.7 0.7 0.7 0.7 0.7 0.7 NA 139 139 136 139 139 139 140 140 POTASSIUM 3.6 3.5 3.8 4.0 4.0 3.8 4.1 4.1 CL 103 104 102 103 103 103 104 104 CO2 25 24 26 24 24 25 24 24 CALCIUM 9.6 9.5 9.1 9.4 9.4 9.5 9.4 9.4 MAGNESIUM 2.5 2.3 2.3 PHOS 1.2 L 1.1 L 2.1 L 2.3 2.2 L 1.9 L HGB 9.3 L 8.9 L 9.1 L WBC 18.4 H 17.4 H 22.8 H PLT 39 L 61 L 65 L = values in this interval not displayed. Assessment and Plan: ?? - JENNIFER in the setting of infection (penumonia), low urine sodium: required CRRT (stopped 10/26) - Liver cirrhosis with ascites - Hyponatremia in the setting of JENNIFER + cirrhosis: improved with CRRT - Thrombocytopenia - Pneumonia with septic shock: shock resolved - frailty, malnourishment ?? 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 Will need a tunneled dialysis catheter to continue regular dialysis treatments. She is markedly malnourished and frail after a severe acute illness- will require aggressive nutrition/PT/OT interventions. Would continue to limit free water intake to less than 1.2 liters daily as she is at risk of hyponatremia. No ?? * Princess Jung, PT - 10/27/2017 10:40 AM CDT [facility] Physical Medicine and Rehabilitation PhysicalTherapy Progress Note Patient: Rosa Li Med Record Number: [id number] Date of : 1960 Age: 57 y.o. Co-treat with OT Discharge Recommendation: Recommendation: Patient will benefit from inpatient multidisciplinary therapies Plan: Treatment/Interventions: Functional transfer training;LE strengthening/ROM;Endurance training;Bed mobility;Gait training PT Frequency: 5 Times/Week Subjective: I want to go outside Patient is not ambulatory at this time. Mental Status: A&O via conversation, slightly more confused than previous sessions. RN aware At start of therapy session, patient found in bed. Pain: Patient does not report pain Weight Bearing Status: WBAT Mobility: Rolling: Moderate assist Supine to Sit:Moderate assist Sit to Supine: Moderate assist Sit to Stand:Moderate assist Bed to Chair: Moderate assist with min of a 2nd Gait: Non-ambulatory at this time Oxygen Used: yes 2L at rest, 5 with activity Balance: Static Sitting: fair Dynamic sitting: fair minus Static Standing: poor Dynamic Standing: poor Stairs : nt Vitals: VSS Activity Tolerance: Patient's activity tolerance: fair Treatment/therapeutic Exercise: bed mobility, transfers, standing balance, sitting balance Patient/Family Teaching: Mobility Patient demonstrated Fair understanding of instructions given. Short Term Goals: Goal Formation ??With patient/family Patient will transfer supine to/from sit ?With minimal assist Patient will perform rolling ??With minimal assist Patient will achieve sitting balance ?Fair Patient will follow one step commands ??100% ? Crepe Sole Scourer Goal: Patient to discharge to appropriate next level of inpatient care. Update Treatment Plan: continue per POC If patient is discharged from the facility, this note serves as a discharge note if further physical therapy visits did not occur. Following therapy session, patient left in bed, with call light within reach, with family in room and with RN in room. Princess Jung PT 10/27/2017 * Codey Martinez SLP - 10/27/2017 9:42 AM CDT [facility] Speech/Language Swallow Treatment Patient: Rosa Li [facility] Record Number: [id number] Date of : 1960 Age: 57 y.o. Impressions: Swallow Recommendations: Continue NPO status x ice chips and sips of water for pleasure at this time (following oral care) with plans to complete MBS tomorrow to further explore Pt's swallow functionand ensure swallowing safety prior to initiation of PO diet. Pt continues to present with a weak cough with trials of thin and puree with concern for airway protection. PURCHASER explained rationale for MBS and Pt is in agreement with plan. Discharge Recommendations:Patient will benefit from inpatient multidisciplinary therapies Subjective: Mental Status: Alert and responsive Pain: Patient denied pain Objective: Breathing Status: Oxygen nasal cannula Tracheostomy Tube: N/A Trial Swallows: Ice Chips, Thin liquids and Pureed Oral Phase: Grossly intact Pharyngeal Phase: Reduced laryngeal elevation to palpation Signs of Aspiration: Intermittent throat clear and cough appreciated with trials of thin liquid andpuree, given Pt's generalized debility suspect acute pharyngeal weakness is resulting in possible penetration or aspiration with oral intake. MBS is appropriate to not only determine if swallow is safe for a PO diet but to also determine what aspects of the oropharyngeal swallow require treatment and would benefit from intervention. Modifications: None attempted Assessment: Swallow: Dysphagia: Pharyngeal: Moderate Behavioral: Cooperative Goals: Short Term Goals: Patient to demonstrate no clinical signs/symptoms of aspiration or difficulty swallowing with recommended diet. Crepe Sole Scourer Goal(s): Patient to be independent/baseline with speech/language/cognitive/swallowing to be able to safely discharge to prior level of care. Plan: Patient to be seen 3 to 5 times a week. Speech therapy is recommended to improve swallow function. If patient is discharged from the facility, this note serves as a discharge note if further speech therapy visits did not occur. LUIS Castro * Francia Hernandez RN - 2017 8:56 PM CDT CRRT/CVVHD monitoring note:No orders noted, Pt on treatment with Alisha Bianca rate 0.8 ml/hr UF 125 ml/hr and BFR 200 ml/min . fisher scallop Licensed Optician paged and I received a returned call from Dr. Kumar. Plan to reorder treatment, however the plan is if the system clots or fluids run out the treatmentis discontinued. Nurse Nadeen Forte RN is aware. Nx Stage machine #[id number]/fluid warmer [id number]. Teaching Pt:Reviewed treatment. Teaching on going. Teaching Nurse: Reviewed with demonstration/teach back, how to disconnect. * Ronaldo Flynn DO - 2017 3:42 PM CDT MICU Progress Note 2017 3:42 PM Hospital course: Per EMR and updated by me, Ms. Li??is a 56 y.o.??female??w/ hx of HERNANDEZ-cirrhosis c/b ascites requiring LVPs q1-2 weeks, chronic hypotension, and cholestatic obstructive disease s/p cholecystectomy is transferred from [facility] where she presented 10/11 with hyponatremia at 115, acute respiratory failure requiring intubation (10/14) and shock. At OSH LVP negative for SBP. Lg R effusion on CXR. Shock requiring PICC and pressors at OSH. Started on CTX and Flagyl. ?? Here at [facility] she continued to require levophed, continued broad spectrum abx changed to vanc/zosyn for suspected PNA - cultures negative to date so vancomycin discontinued and zosyn continued for 10 day course (EOT 10/23). CT PE showing no PE but b/l GGOs suggesting??infection. Thoracentesis was transudate. Admission Na was 122, and is persistently low here, but improved with free water restriction and CRRT. Admitted with oliguric JENNIFER worsening and AGMA despite treating sepsis which was thought sabra 2/2 Type 1 HRS so started on CRRT on 10/19 as well albumin, octreotide subq (2 week course), midodrine and levofed to maintain MAPS>65. On 10/19 had repeat paracentesis that was negative for SBP. 10/19-10/24: CRRT UF increased as tolerated to reduce volume overload state and optimize extubation success. 10/25: extubated successfully. CRRT continued for UF only. Subjective: NAEON. Feels well this am. Wants to eat. Failed swallow eval from speech therapy. Put in NG overnight. Denies pain, nausea. Objective: Temp: [49.1 ??F (9.5 ??C)-97.3 ??F (36.3 ??C)] 97.3 ??F (36.3 ??C) Pulse: [62-85] 66 Resp: [14-23] 16 BP: (83-107)/(54-84) 93/63 O2 %: [28 %] 28 % Intake/Output Summary (Last 24 hours) at 10/26/17 1542 Last data filed at 10/26/17 1300 Gross per 24 hour Intake 275 ml Output 2914 ml Net -2639 ml GEN: thin, frail white woman. HEENT: Sclera anicteric. Hoarse voice. CHEST: ctabl, non-labored HEART: RRR, Normal S1, S2. No murmurs/rubs/gallops. ABD: Soft, mild distention, normal sounds. EXT: edema in bilat hips. Ecchymosis of posterior hands with interosseous wasting. NEURO: Alert and appropriately interactive. Moving all extremities with moderate generalized weakness. Data Review CBC: Recent Labs Component Name 10/26/17 0424 10/25/17 0500 10/24/17 0444 WBC 17.4* 22.8* 13.0* HGB 8.9* 9.1* 8.7* PLT 61* 65* 63* BMP: Recent Labs Component Name 10/26/17 1152 10/26/17 0424 10/25/17 2149 10/14/17 2239 09/03/17 NA 136 139 139 139 - - - 126* K - - - - 3.4* - 5.2* CL 102 103 103 103 - - - 90* CO2 26 24 24 25 - - - 25.0 BUN 18 18 18 19 - - - 17 CREATININE 0.7 0.7 0.7 0.7 - - - - GLU 210* 131* 131* 133* - - - 121* - = values in this interval not displayed. Recent Labs Component Name 10/26/17 1152 10/26/17 0424 10/25/17 2149 CALCIUM 9.1 9.4 9.4 9.5 PHOS 2.1* 2.3 2.2* LFT: Recent Labs Component Name 10/26/17 1152 10/26/17 0424 10/25/17 2149 10/25/17 0500 10/24/17 0316 PROT - 5.8* - - 6.0 - 5.5* ALB 3.4 3.5 3.5 3.4 - 3.4 3.4 - 3.4 3.4 ALKPHOS - 779* - - 652* - 470* AST - 44* - - 30 - 25 ALT - 23 - - 17 - 14 - = values in this interval not displayed. Coagulation: Recent Labs Component Name 10/26/17 0424 10/25/17 0500 10/24/17 0339 PT 15.5* 12.5 14.1 INR 1.2 1.0 1.1 Cardiac markers: Recent Labs Component Name 08/07/17 0859 08/07/17 0142 TROPONINI <0.010 0.017 HIT panel negative P-ANCA positive 1:20 Low complement levels Phos critically low 1.0 and <0.7 ASO titers negative HIV neg DS DNA neg Acute hepatitis negative Anti GBM pending Cryo neg MARILEE neg Mitochondrial ab neg Anti MPO and PR3 ab negative SPEP - polyclonal Ig SSA SSB neg [place] lambda ratio 2.3 Assessment and Plan Neurologic: Resolved Acute encephalopathy -due to sepsis, ICU delirium, and HE -off sedation currently. -lactulose 10g qd for BM 2-3 per day. Cardiovascular: Septic shock, resolved -source pneumonia likely but mild RV dysfunction a possible confounder. -off pressors since 10/24. Continue midodrine 15mg tid -decrease hydrocortisone 50mg qd. Would keep here for a week or so and decrease slowly. -s/p zosyn x 10 days. EOT was 10/23. Pulmonary: Acute hypoxic respiratory failure, improving. -due to pneumonia and pulmonary edema in setting of volume overload as well as pleural effusion which was likely hepatic hydrothorax. -intubated at OSH on 10/14. Extubated 10/25. On 2L NC today. -s/p zosyn as above -duonebs q4h prn Pleural effusion, resolved s/p thora on 10/15. Likely hepatic hydrothorax. Cor Pulmonale: possible portopulmonary hypertension. -defer RHC for now. GI: Decompensated HERNANDEZ cirrhosis -MELD-Na score: 10 at 2017 11:52 AM MELD score: 10 at 2017 11:52 AM Calculated from: Serum Creatinine: 0.7 mg/dL (Rounded to 1) at 2017 11:52 AM Serum Sodium: 136 mmol/L at 2017 11:52 AM Total Bilirubin: 1.7 mg/dL at 2017 4:24 AM INR(ratio): 1.2 at 2017 4:24 AM Age: 57 years -Autoimmune evaluation positive p-ANCA 1:20 but negative MPO ab. Possible PSC since marked elevatedalk phos. -HE: continue lactulose 10g qd. -EV no prior -Ascites - s/p LVP 3L 10/19, no SBP -HCC - US neg -Txp - not candidate due to poor functional status and tobacco use Tube feeds through NG -on osmolite 1.5kcal at 40cc/hr with BID protein Renal: Oliguric JENNIFER on CRRT with volume overload. -nephrology following. Suspect HRS type 1 vs less likely autoimmune process vs vasculitis. -Autoimmune evaluation showed P-ANCA positive as above. Peripheral smear without schistocytes to suggest microangiopathy. -on CRRT. Will continue CRRT until filter done then transition to iHD. Plan to get tunneled HD cathtomorrow. NPO after MN, hold TF. Hold heparin until after procedure. -s/p octreotide gtt for 2 weeks total. EOT 10/25. Endocrine: Accuchecks Q4 hours; target glucose 140 - 180 I.D.: Bacterial CAP with sepsis, resolved - CXR with opacity, CT w b/l GGOs and in distributive shock - s/p zosyn x 10 days. EOT 10/23. Negative culture data to date. ?? Heme/Onc: Normocytic anemia, stable -unclear cause. Possible sepsis vs cirrhosis vs ICU phlebotomy. No obvious bleeding. Haptoglobin normal. LDH normal so unlikely hemolytic process. CT negative for RP bleed on 10/19. -trend cbc qd. Transfuse < 7. Coagulopathy -INR improved now. Vit K given 10/19, 10/21. Thrombocytopenia, stable -down to 50-60s from 180s on admission. -HIT panel negative. Likely due to sepsis and CRRT and cirrhosis. Transfusion Protocol Plt <??10. Will restart heparin TID until plt < 50. Lines/Drains/Tubes: Johnson 10/15. NG 10/26. LIJ 10/18 DVT ppx: SCDs since thrombocytopenia and coagulopathy. GI ppx: ppi Aspiration precautions - elevate head of bed 30 degrees. Diet: TF as above. Activity: dangle at bedside PT/OT consulted Disposition: ICU Monitoring, likely TTF tomorrow. RONALDO Flynn, 2017 3:42 PM Associated attestation - Reuben Tellez MD - 10/27/2017 2:[address] [facility] Critical Care Medicine (MICU) Attending Note Date of service: 2017 The patient seen, reviewed history,examined and discussed with residents and MICU Team. I have reviewed and agree with resident note except as noted below: Supervised breathing trial. Extubated. Poor phonation. Trace edema. -minimize sedation. -goal net even/neg volume status -finished abx for pna -repeat echo limited study tomorrow to eval RV function and PA pressure. -weaning steroids slowly -watch liver enzymes. -repeat paracentesis as needed -continue nutritional support. -finish CRRT today. Plan tunneled cath, iHD after that. Active Hospital Problems Acute encephalopathy Priority: Not Prioritized [19] Date Noted: 10/19/2017 Acute respiratory failure with hypoxia Priority: Not Prioritized [19] Date Noted: 10/19/2017 JENNIFER (acute kidney injury) Priority: Not Prioritized [19] Date Noted: 10/19/2017 Liver cirrhosis secondary to HERNANDEZ Priority: Not Prioritized [19] Date Noted: 10/19/2017 Cor pulmonale (chronic) Priority: Not Prioritized [19] Date Noted: 10/19/2017 Septic shock Priority: Not Prioritized [19] Date Noted: 10/14/2017 Critical care time 32 minutes, excluding procedures Pt. is at high risk for complications and morbidity or mortality Pt. is critically ill with vital organ impairment or failure There is high probability of imminent or life threatening deterioration in the patient???s condition Time involved in the performance of separately billable procedures, teaching, reviewing education material was not counted towards critical care time. * Zuleima Hercules - 2017 3:19 PM CDT [facility] ICU Daily Progress Note 2017 3:19 PM Name: Rosa Li (57 y.o. female) : 1960 Room: [address] [place] [address] Hospital Day: 12 Interval Events: Patient had no acute events overnight. She has been satting well on 2L NC since extubation yesterday afternoon. After extubation patient failed swallow study, NGT was placed overnight to allow midodrine administration. Placement was confirmed with KUB. Patient was once again unable to pass swallow in the am and tube feeds were restarted via NGT. Patient had 2.6L of effluent removed via CRRT yesterday and on exam her edema shows improvement from previous days. This am patient denies pain, nausea, or discomfort. ROS is otherwise negative. In the am patient was discussed with nephro team, they recommend continued CRRT until tomorrow, and iHD to begin subsequently. Hospital Course: Rosa Li is a 57 y.o. F with PMHx of HERNANDEZ cirrhosis c/b ascites requiring LVPs q1-2 weeks, chronic hypotension, and cholestatic obstructive disease s/p cholecystectomy. She initially presented to [facility] on 10/11 with hyponatremia at 115, acute respiratory failure requiring intubation(10/14) and shock. At OSH LVP negative for SBP. Lg R effusion on CXR. Shock requiring PICC and pressors at OSH. Started on CTX and Flagyl. ?? She arrived at [facility] on 10/14. At [facility] she continued to require levophed but was successfully weaned on10/23 with hydrocortisone and midodrine. She received 10 days of vanc/zosyn (ending on 10/23) for suspected PNA - culture negative to date so vancomycin discontinued and zosyn continued. CT PE showing noPE but b/l GGOs suggesting??infection. She had thoracentesis on 10/15 which was transudate. AdmissionNa was 122 but improved to WNL. Admitted with oliguric JENNIFER worsening and AGMA despite treating sepsis which was thought to be 2/2 Type 1 HRS so started on CRRT on 10/19 as well albumin, octreotide subq(14 days), midodrine to maintain MAPS>65. On 10/19 had repeat paracentesis that was negative for SBP. CRRT UF was increased as tolerated to reduce volume overload state and optimize extubation success. By 10/25 patient had been tolerating PSV at 8/5 30% with RSBI 74 for 24 hours and was successfully extubated later that day. She was also maintaining MAP >65 without requiring pressors since 10/23. She has been tolerating CRRT well. On exam patient's mental status was much improved she was appropriate and interactive, A&Ox4 and her edema was improved. On BS Abdominal U/S patient had moderate sized ascites pocket however her abdomen was soft and non-distended on exam. Objective: Scheduled Meds [START ON 10/27/2017] hydrocortisone sodium succinate PF 50 mg Intravenous QDAY lactulose 10 g Enteral Tube AT BEDTIME heparin 5,000 Units Subcutaneous q8h insulin aspart 0-6 Units Subcutaneous q6h melatonin 3 mg Oral AT BEDTIME midodrine 15 mg Oral q8h Infusions PRN Meds 0.9% NaCl ??? fentaNYL (PF) ??? PRISMASOL BGK 4/2.5 ??? glucose (Diabetic Use) ??? dextrose ??? glucagon ??? albuterol-ipratropium Vital Signs Temp: [49.1 ??F (9.5 ??C)-97.3 ??F (36.3 ??C)] 97.3 ??F (36.3 ??C) Pulse: [62-85] 66 Resp: [14-23] 16 BP: (83-107)/(54-84) 93/63 O2 %: [28 %] 28 % I/Os Intake/Output Summary (Last 24 hours) at 10/26/17 1519 Last data filed at 10/26/17 1300 Gross per 24 hour Intake 275 ml Output 2914 ml Net -2639 ml General:cachectic appearing female, alert and appropriate HEENT: NC/AT Chest: equal breath sounds, coarse lung sounds R>L Heart: RRR, no murmurs noted. Abdomen: Soft, NT/ND, +BS. No organomegaly noted Extremities: No cyanosis or edema Skin: No new ulcers or rash noted. multiple ecchymoses present on trunk, face and all extremities. 2+ edema. Neuro: A&Ox4 Data Review CBC: Recent Labs Component Name 10/26/17 0424 10/25/17 0500 10/24/17 0444 WBC 17.4* 22.8* 13.0* HGB 8.9* 9.1* 8.7* PLT 61* 65* 63* BMP: Recent Labs Component Name 10/26/17 1152 10/26/17 0424 10/25/17214810/14/179 09/03/17 NA 136 139 139 139 - - - 126* K - - - - 3.4* - 5.2* CL 102 103 103 103 - - - 90* CO2 26 24 24 25 - - - 25.0 BUN 18 18 18 19 - - - 17 CREATININE 0.7 0.7 0.7 0.7 - - - - GLU 210* 131* 131* 133* - - - 121* - = values in this interval not displayed. Recent Labs Component Name 10/26/17 1152 10/26/1742310/25/172148 CALCIUM 9.1 9.4 9.4 9.5 PHOS 2.1* 2.3 2.2* LFT: Recent Labs Component Name 10/26/17 1152 10/26/17 0424 10/25/179 10/25/17 0500 10/24/17 0316 PROT - 5.8* - - 6.0 - 5.5* ALB 3.4 3.5 3.5 3.4 - 3.4 3.4 - 3.4 3.4 ALKPHOS - 779* - - 652* - 470* AST - 44* - - 30 - 25 ALT - 23 - - 17 - 14 - = values in this interval not displayed. Coagulation: Recent Labs Component Name 10/26/17 0424 10/25/17 0500 10/24/17 0339 PT 15.5* 12.5 14.1 INR 1.2 1.0 1.1 Cardiac markers: Recent Labs Component Name 08/07/17 0859 08/07/17 0142 TROPONINI <0.010 0.017 LDH 308 C3, C4 WNL Blood cultures 10/14: NGTD Urine culture: NGTD Ascites Cx: NGTD Sputum Cx: NGTD Imaging: KUB: NGT in gastric body ASSESSMENT and PLAN: 1. Encephalopathy 2. Septic shock, resolved 3. Hepatorenal syndrome 4. Acute hypoxic respiratory failure due to pneumonia 5. HERNANDEZ cirrhosis c/b ascites 6. CAP, resolved 7. Normocytic anemia 8. Thrombocytopenia Neurological - Encephalopathy, resolved sepsis vs HE vs delirium - sepsis resolved - patient A&Ox4 this am - continue lactulose 10g Qday, tolerating well with moderate diarrhea Cardiovascular: - Septic shock resolved, secondary to pneumonia - weaned from pressors on 10/23, maintaining MAP >65 - continue midodrine 15 mg TiD - decrease hydrocortisone to 50 mg qday Severe RV enlargement on echo 10/15 - unknown cause ?Cor pulmonale caused by portopulmonary HTN - defer RH cath due to acute illness Pulmonary: - Acute hypoxic respiratory failure, resolved - secondary to pneumonia, resolved s/p 10d zosyn - patient extubated 10/25, satting well on 2L NC - continue PT/OT for core strengthening - continue duonebs q4 Gastrointestinal: - HERNANDEZ cirrhosis c/b ascites - Ascites: required paracentesis q1-2 weeks prior to hospitalization, no hx of SBP - most recent para on 10/19, no SBP - moderate fluid on BSUS - HE: continue lactulose 10g qday - EV: no evidence - no evidence of HCC on CT 10/19 - Transplant: not candidate due to tobacco use, poor functional status -MELD-Na score: 10 at 2017 11:52 AM MELD score: 10 at 2017 11:52 AM Calculated from: Serum Creatinine: 0.7 mg/dL (Rounded to 1) at 2017 11:52 AM Serum Sodium: 136 mmol/L at 2017 11:52 AM Total Bilirubin: 1.7 mg/dL at 2017 4:24 AM INR(ratio): 1.2 at 2017 4:24 AM Age: 57 years Elevated Alk Phos congestive hepatopathy due to HERNANDEZ vs less likely PBC vs PSC vs sphincter of Oddidysfunction vs. Post cholecystectomy syndrome - Alk phos 470->652->779 - T bili 1.7 (stable) - patient asymptomatic, anti-mitochondrial Ab negative, p-anca positive but non- specific in acute illness - US on 10/18 negative for bile duct dilatation or stricture - continue CMP daily - Feeding: osmolyte 1.5 - GI Prophylaxis: d/c, no indication Renal/Lytes: - JENNIFER likely due to Hepatorenal syndrome, less likely AI, atypical HUS - Cr 0.7 on CRRT, aneuric: UOP 50 mL - d/c octreotide (s/p 14 days octreotide 75 mg TiD) - continue CRRT until tomorrow (2.6L effluent yesterday) - d/c CRRT tomorrow, begin iHD per nephro - IR to place tunnel cath tomorrow - Replete Mg to 2, Phos to 3, K to 4 - Strict I/O - monitor for oligoanuria Endocrine: No active issues - Accuchecks q6h with SSI - Aim to maintain glucose between 140-180 Infectious Disease: - Pneumonia (CAP), sepsis resolved -s/p 10 days zosyn - leukocytosis due to steroid use - Johnson-culture if febrile > 101.3 Heme/Onc: Thrombocytopenia stable, possible etiology: sepsis, production deficit due to liver disease, CRRT - Plt 61 (stable) - HIT panel negative - Transfusion Protocol: Hb < 7, Plt < 10 or < 50 if bleeding Normocytic Anemia ACD vs atypical HUS - ferritin increased, low Fe, low transferrin - stable Hg 8.9 - LDH 308, C3, C4 WNL Lines: PIV, L IJ (10/18) Prophylaxis: GI - no indication DVT - SQH 5000u q8h Diet: TF Osmolite 1.5 @ 40ml/hr Activity: As tolerated Disposition: ICU Monitoring possible TTF tomorrow Code Status: Full Code This patient has been discussed with the MICU attending Dr. Geoff Hercules, MS4 * Alie Jung, OT - 2017 1:51 PM CDT [facility] Physical Medicine and Rehabilitation Occupational Therapy Progress Note Patient: Rosa Li [facility] Record Number: [id number] Date of : 1960 Age: 57 y.o. Co-treat with PT Recommendation: Recommendation: Patient will benefit from inpatient multidisciplinary therapies Plan: OT Frequency: 5 Times/Week Precautions: Subjective: It's my birthday! At start of therapy session, patient found in bed and with RN and at bedside. Pain: Patient has no c/o pain, agreeable to therapy. Activities of Daily Living Feeding: Not tested Grooming/Bathing: not tested Upper Extremity Dressing: Moderate assist to manage gown during functional transfers Lower Extremity Dressing: not tested, socks donned prior to session Toileting/Transfers: not tested Mobility: Assist device: none Supine to/from Sit:Moderate assist of 1 Sit to/from Stand: Moderate assist of 2 on 2 attempts with min verbal cues for erect posture Bed to/from Chair: not tested Functional Mobility: not tested Splint Issued/Checked: none Splint Check Completed: N/A Balance: Static Sitting: poor plus; requires minimal assist for balance, SBA for periods of time Dynamic Sitting: poor Static Standing: poor Dynamic Standing: poor Activity Tolerance: Patient's activity tolerance: fair Cognitive/Perceptual: Pt alert and oriented x 3, follows 1 step commands 100% of the time with fairattention to task, demonstrates fair safety awareness and insight into deficits, bouts of slight confusion Treatment/Therapeutic Exercise: Treatment session this date focused on ADL training Functional transfer training Endurance training Bed mobility Safety awareness Patient/Family Teaching: Mobility and Self care Equipment Issued: none Update Treatment Plan/Goals : continue POC. Pt continues to benefit from skilled OT to improve independence with activities of daily living, increase strength, endurance, range of motion and decreasepain. Short Term Goals: Cognition: ??1 step commands and 100% of the time- MET Patient will perform grooming ??At edge of bed and With min assist Patient will perform supine to sit ??With mod assist and X 1 Patient will perform sit to stand with moderate assist x 1 Patient will tolerate treatment 15 minutes and with fair endurance Retirement Goal:Patient to discharge to appropriate next level of inpatient care If patient is discharged from the facility, this note serves as a discharge note if further occupational therapy visits did not occur. Following therapy session, patient left in bed, with call light within reach, with family in room and with RN, Sun shipman. Alie Jung OT * Princess Jung, PT - 2017 1:50 PM CDT [facility] Physical Medicine and Rehabilitation PhysicalTherapy Progress Note Patient: Rosa Li [facility] Record Number: [id number] Date of : 1960 Age: 57 y.o. Discharge Recommendation: Recommendation: Patient will benefit from inpatient multidisciplinary therapies Plan: Treatment/Interventions: Functional transfer training;LE strengthening/ROM;Endurance training;Bed mobility;Gait training PT Frequency: 5 Times/Week Subjective: Hi Patient is not ambulatory at this time. Mental Status: A&O to person, place, date At start of therapy session, patient found in bed. Pain: Patient reports no pain Weight Bearing Status: WBAT Mobility: Rolling: not tested Supine to Sit:Maximal assist of 2 Sit to Supine: Maximal assist of 2 Sit to Stand:Maximal assist of 2 Bed to Chair: not tested Gait: Device:bilateral frontal support Assistance: Maximal assist Distance: stood x 2 Deviations: flexed posture Oxygen Used: yes Balance: Static Sitting: fair minus Dynamic sitting: poor Static Standing: poor Dynamic Standing: poor Stairs : nt Vitals: VSS on 5L O2 Activity Tolerance: Patient's activity tolerance: fair Treatment/therapeutic Exercise: bed mobility, transfers, sitting balance, standing balance Patient/Family Teaching: Mobility Patient demonstrated Fair understanding of instructions given. Short Term Goals: Goal Formation ??With patient/family Patient will transfer supine to/from sit ?With minimal assist Patient will perform rolling ??With minimal assist Patient will achieve sitting balance ?Fair Patient will follow one step commands ??100% ?? Retirement Goal: Patient to discharge to appropriate next level of inpatient care. Update Treatment Plan: continue per POC If patient is discharged from the facility, this note serves as a discharge note if further physical therapy visits did not occur. Following therapy session, patient left in bed, with call light within reach, with family in room and with RN in room. Princess Jung, PT 2017 * Codey Martinez, PURCHASER - 2017 9:21 AM CDT [facility] Speech Therapy Initial Evaluation Patient: Rosa Li [facility] Record Number [id number] Date of : 1960 Age: 57 y.o. No past medical history on file. Patient Active Problem List Diagnosis ??? Other ascites ??? Fatty (change of) liver, not elsewhere classified ??? Hypo-osmolality and hyponatremia ??? Septic shock ??? Acute encephalopathy ??? Acute respiratory failure with hypoxia ??? JENNIFER (acute kidney injury) ??? Liver cirrhosis secondary to HERNANDEZ ??? Cor pulmonale (chronic) Swallow Recommendations: Recommend continued NPO status x for ice chips and sips of thin liquid for pleasure (with adequate oral care provided) given acute pharyngeal dysphagia related to prolonged intubation with concern for airway protection with oral intake. Will plan to re-evaluate Pt again tomorrow and if Pt's swallowsafety remains questionable will recommend MBS to further explore swallow function and guide recommendations regarding PO diet. Discharge Recommendations: Patient will benefit from inpatient multidisciplinary therapies Current Diet: DIET TUBE FEEDING CONTINUOUS DIET NPO Except: NPO NO EXCEPTIONS DIETARY NUTRITION SUPPLEMENTS SUBJECTIVE: Pain: Patient denied pain OBJECTIVE: Mental Status: Alert and responsive Positioning: Upright in bed Breathing Status: Oxygen nasal cannula Tracheostomy Tube: N/A Oral Function Exam: Adequate lower dentition, no upper dentition present (Pt does have dentures at home but they do not fit properly) Laryngeal Function Exam: Impairments in the following areas: Vocal quality: Breathy Decreased intensity, nearly aphonic Volitional cough: Weak Reflexive cough: Weak Trial Swallows: Ice Chips, Thin liquids and Pureed Oral Phase: Grossly intact Pharyngeal Phase: Reduced laryngeal elevation to palpation Signs of Aspiration: Intermittent cough appreciated with ice and thin liquid boluses. Modifications: small bites/sips, slow rate, alternate liquids and pureed items. Speech: Grossly intact Receptive Language: Grossly intact. Expressive Language: Grossly intact Cognitive-Communication: Grossly intact Treatment: Swallowing Education: Patient, Family and Nursing instructed in recommedations and indicated understanding. Informed Consent to Treatment: Plan of care including recommended therapy, goals and frequency, as well as potential risks and benefits of treatment/assessment explained to the patient who understands and agrees to proceed. Assessment: Swallow: Dysphagia: Pharyngeal: Moderate Behavioral: Cooperative Short Term Goals: Patient to demonstrate no clinical signs/symptoms of aspiration or difficulty swallowing with recommended diet. Crepe Sole Scourer Goal(s): Patient to be independent/baseline with speech/language/cognitive/swallowing to be able to safely discharge to prior level of care. Plan: Patient to be seen 3 to 5 times a week. Speech therapy is recommended to improve swallow function. Codey Martinez, PURCHASER Speech Language Pathologist * Yoana Lund RN - 10/25/2017 12:18 PM CDT CRRT/CVVHD NOTE: Report Received from Nurse Argueta. celestina Support and non tx equipment support checks done. Equipment functioning well, Dialysate at 0.8 mls per hour. UF = 255 mls per hour . Blood flow = 200 mls per minute. Access pressure = -60, Venous pressure = 84. Remains intubated. On vent. Clear. Trace lower leg edema. No drips. Awake and alert. Ox2. BP = 102/69. Report to Nurse Argueta. Camille Lund Rn, * Zuleima Hercules - 10/25/2017 12:09 PM CDT [facility] ICU Daily Progress Note 10/25/2017 12:09 PM Name: Rosa Li (56 y.o. female) : 1960 Room: [address] [place] [address] Hospital Day: 11 Interval Events: Patient had no acute events overnight. She has been tolerating PSV at 8/5 30% with RSBI 74 for 24 hours. Her Vt has been 230-270 during this time. She has maintained goal MAP >65 without requiringpressors since 10/23. She has been tolerating CRRT well. On exam this am patient's mental status appeared much improved she was appropriate and interactive, A&Ox4 and her edema was improved. She has had 2.620L of UF removed but has only produced 50 mL urine in the past 24 hours. On BS Abdominal U/S patient had moderate sized ascites pocket however her abdomen was soft and non-distended on exam.In the afternoon patient continued to do well with minimal respiratory support and was successfully extubated at 1500. She continued to sat well on 4L NC. Hospital Course: Per EMR: Rosa Li is a 56 y.o. F with PMHx of HERNANDEZ cirrhosis c/b ascites requiring LVPs q1-2 weeks, chronic hypotension, and cholestatic obstructive disease s/p cholecystectomy. She initially presented to [facility] on 10/11 with hyponatremia at 115, acute respiratory failure requiring intubation(10/14) and shock. At OSH LVP negative for SBP. Lg R effusion on CXR. Shock requiring PICC and pressors at OSH. Started on CTX and Flagyl. ?? She arrived at [facility] on 10/14. At [facility] she continued to require levophed but was successfully weaned on10/23 with hydrocortisone and midodrine. She received 10 days of vanc/zosyn (ending on 10/23) for suspected PNA - culture negative to date so vancomycin discontinued and zosyn continued. CT PE showing noPE but b/l GGOs suggesting??infection. She had thoracentesis on 10/15 which was transudate. AdmissionNa was 122 but improved to WNL. Admitted with oliguric JENNIFER worsening and AGMA despite treating sepsis which was thought to be 2/2 Type 1 HRS so started on CRRT on 10/19 as well albumin, octreotide subq(14 days), midodrine to maintain MAPS>65. On 10/19 had repeat paracentesis that was negative for SBP. CRRT UF increased as tolerated to reduce volume overload state and optimize extubation success. Objective: Scheduled Meds hydrocortisone sodium succinate PF 50 mg Intravenous q12h lactulose 10 g Enteral Tube AT BEDTIME heparin 5,000 Units Subcutaneous q8h insulin aspart 0-6 Units Subcutaneous q6h melatonin 3 mg Oral AT BEDTIME artificial tears Each Eye q8h midodrine 15 mg Oral q8h chlorhexidine Mouth/Throat BID perflutren Lipid Microsphere 0.5 mL Intravenous intra-Procedure multiple polyethyl glycol-propyl glycol 1 drop Each Eye q8h pantoprazole 40 mg Intravenous QDAY Infusions norepinephrine 0-0.4 mcg/kg/min Last Rate: Stopped (10/23/17 2300) PRN Meds 0.9% NaCl ??? fentaNYL (PF) ??? PRISMASOL BGK 4/2.5 ??? glucose (Diabetic Use) ??? dextrose ??? glucagon ??? albuterol-ipratropium Vital Signs Temp: [97.3 ??F (36.3 ??C)-98 ??F (36.7 ??C)] 97.3 ??F (36.3 ??C) Pulse: [65-87] 84 Resp: [18-24] 24 BP: (96-119)/(38-77) 102/69 O2 %: [30 %-60 %] 60 % I/Os Intake/Output Summary (Last 24 hours) at 10/25/17 1209 Last data filed at 10/25/17 0800 Gross per 24 hour Intake 669 ml Output 2447 ml Net -1778 ml General: Intubated female alert and cachectic appearing HEENT: NC/AT Chest: CTAB no w/c/r Heart: RRR, no murmurs noted. Abdomen: Soft, NT/ND, +BS. No organomegaly noted Extremities: No cyanosis or edema Skin: No new ulcers or rash noted. multiple ecchymoses present on trunk, face and all extremities. 2+ edema. Neuro: A&Ox4 Data Review CBC: Recent Labs Component Name 10/25/17 0500 10/24/17 0444 10/23/17 0556 WBC 22.8* 13.0* 10.2 HGB 9.1* 8.7* 8.4* PLT 65* 63* 52* BMP: Recent Labs Component Name 10/25/17 0500 10/25/17 0021 10/24/17 1154 10/14/17 2239 09/03/17 NA 140 140 141 138 - - - 126* K - - - - 3.4* - 5.2* CL 104 104 105 105 - - - 90* CO2 24 24 24 26 - - - 25.0 BUN 17 17 17 14 - - - 17 CREATININE 0.7 0.7 0.6 0.6 - - - - GLU 145* 145* 207* 228* - - - 121* - = values in this interval not displayed. Recent Labs Component Name 10/25/17 0500 10/25/17 0021 10/24/17 1154 CALCIUM 9.4 9.4 9.3 8.7 PHOS 1.9* 1.7* 2.0* LFT: Recent Labs Component Name 10/25/17 0500 10/25/17 0021 10/24/17 1154 10/24/17 0316 10/23/17 0348 PROT 6.0 - - 5.5* - 4.6* ALB 3.4 3.4 3.3* 3.1* 3.4 3.4 - 3.0* 3.0* ALKPHOS 652* - - 470* - 304* AST 30 - - 25 - 29 ALT 17 - - 14 - 13 - = values in this interval not displayed. Coagulation: Recent Labs Component Name 10/25/17 0500 10/24/17 0339 10/23/17 0348 PT 12.5 14.1 15.3* INR 1.0 1.1 1.2 Cardiac markers: Recent Labs Component Name 08/07/17 0859 08/07/17 0142 TROPONINI <0.010 0.017 LDH 308 C3, C4 WNL Blood cultures 10/14: NGTD Urine culture: NGTD Ascites Cx: NGTD Sputum Cx: NGTD ASSESSMENT and PLAN: 1. Encephalopathy 2. Septic shock, resolved 3. Hepatorenal syndrome 4. Acute hypoxic respiratory failure due to pneumonia 5. HERNANDEZ cirrhosis c/b ascites 6. CAP, resolved 7. Normocytic anemia 8. 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 - defer RH cath due to acute illness Pulmonary: - Acute hypoxic respiratory failure, resolved - secondary to pneumonia, resolved s/p 10d zosyn - patient extubated today, satting well on 2L NC - continue duonebs q4 Gastrointestinal: - HERNANDEZ cirrhosis c/b ascites - Ascites: required paracentesis q1-2 weeks prior to hospitalization, no hx of SBP - most recent para on 10/19, no SBP - moderate fluid on BSUS - HE: continue lactulose 10g qday - EV: no egd available - no evidence of HCC on CT 10-19 - Transplant: not candidate due to tobacco use, poor functional status -MELD-Na score: 8 at 10/25/2017 12:25 PM MELD score: 8 at 10/25/2017 12:25 PM Calculated from: Serum Creatinine: 0.7 mg/dL (Rounded to 1) at 10/25/2017 12:25 PM Serum Sodium: 140 mmol/L (Rounded to 137) at 10/25/2017 12:25 PM Total Bilirubin: 1.5 mg/dL at 10/25/2017 5:00 AM INR(ratio): 1.0 at 10/25/2017 5:00 AM Age: 56 years - Feeding: NPO pending swallow study - GI Prophylaxis: d/c, no indication Renal/Lytes: - JENNIFER likely due to Hepatorenal syndrome, less likely AI, atypical HUS - Cr 0.7 on CRRT, aneuric: UOP 50 mL - d/c octreotide (s/p 14 days octreotide 75 mg TiD) - continue CRRT until euvolemic (2.6L effluent overnight) - Replete Mg to 2, Phos to 3, K to 4 - Strict I/O - monitor for oligoanuria Endocrine: No active issues - Accuchecks q6h with SSI - Aim to maintain glucose between 140-180 Infectious Disease: - Pneumonia (CAP), sepsis resolved -s/p 10 days zosyn - Johnson-culture if febrile > 101.3 Heme/Onc: Thrombocytopenia stable, possible etiology: sepsis, production deficit due to liver disease, CRRT - Plt 65 - HIT panel negative - Transfusion Protocol: Hb < 7, Plt < 10 or < 50 if bleeding Normocytic Anemia ACD vs atypical HUS - ferritin increased, low Fe, low transferrin - stable Hg 9.1 - LDH 308, C3, C4 WNL Lines: PIV, L IJ (10/18), Johnson (10/15) Prophylaxis: GI - no indication DVT - SQH 5000u q8h Diet: NPO pending swallow study Activity: As tolerated Disposition: ICU Monitoring Code Status: Full Code This patient has been discussed with the MICU attending Dr. Geoff Hercules, MS4 * Shanda Temple, OT - 10/25/2017 11:45 AM CDT [facility] Physical Medicine and Rehabilitation Occupational Therapy Progress Note Patient: Rosa Li [facility] Record Number: [id number] Date of : 1960 Age: 56 y.o. Co-treat with PT and RT Recommendation: Patient will benefit from inpatient multidisciplinary therapies Plan: OT Frequency: 5 Times/Week Subjective: Patient intubated, nods head yes/no appropriately and gestures to communicate. At start of therapy session, patient found in bed. Pain: Patient has 0 out of 10 pain. Activities of Daily Living Feeding: NT Grooming/Bathing: not tested Upper Extremity Dressing: not tested Lower Extremity Dressing: not tested Toileting/Transfers: not tested Mobility: Assist device: none Supine to/from Sit:Maximal assist of 1 Sit to/from Stand: Maximal assist of 1 Bed to/from Chair: not tested Functional Mobility: not tested Splint Issued/Checked: none Splint Check Completed: N/A Balance: Static Sitting: poor plus (requires minimal assist for balance, SBA for periods of time) Dynamic Sitting: poor Static Standing: poor Dynamic Standing: not tested Activity Tolerance: RT present throughout treatment to monitor O2 sats and settings on vent. Increased RR during EOB activity. Patient's activity tolerance: fair Cognitive/Perceptual: Alert, follows 1 step commands 100%. Nods head yes/no appropriately. Questionable insight/safety secondary to decreased ability to communicate with vent. present at bedside. Treatment/Therapeutic Exercise: Treatment session this date focused on Functional transfer trainingEndurance training Bed mobility HEP training. B/L UE AAROM seated EOB, trunk rotation/upright posture, LE AROM as able. Patient/Family Teaching: Exercise and Mobility Equipment Issued: none Update Treatment Plan/Goals : Pt continues to benefit from skilled OT to improve independence with activities of daily living, increase strength, endurance, range of motion and decrease pain. Goals updated this date Short Term Goals: Cognition: ??1 step commands and 100% of the time- MET Patient will perform grooming ??At edge of bed and With min assist Patient will perform supine to sit ??With mod assist and X 1 Patient will perform sit to stand with moderate assist x 1 Patient will tolerate treatment 15 minutes and with fair endurance Crepe Sole Scourer Goal:Patient to discharge to appropriate next level of inpatient care If patient is discharged from the facility, this note serves as a discharge note if further occupational therapy visits did not occur. Following therapy session, patient left in bed, with family in room and restraints returned. Shanda Temple OT * Shanda Temple OT - 10/25/2017 11:45 AM CDT [facility] Department of Physical Medicine & Rehabilitation Progress Note Patient: Rosa Li [facility] Record Number: [id number] Date of : 1960 Age: 56 y.o. 10/25/17 1100 PERME Score Alertness 2 Follow Commands 1 Mechanical or Noninvasive Ventilation 0 Pain 1 LDAs or Devices 0 Intravenous Infusions 0 Functional Strength: Right Arm 1 Functional Strength: Left Arm 1 Functional Strength: Right Leg 0 Functional Strength: Left Leg 0 Bed Moblitity: Supine to Sit 1 Bed Mobility: Static Sitting 3 Transfers: Sit to Stand 1 Transfers: Static Standing 1 Transfers: Bed to Chair 0 Gait 0 Endurance 0 PERME Score 12 * Arielle Maria, PT - 10/25/2017 10:43 AM CDT [facility] Physical Medicine and Rehabilitation PhysicalTherapy Progress Note Co-tx with OT and RT Patient: Rosa Li [facility] Record Number: [id number] Date of : 1960 Age: 56 y.o. Discharge Recommendation: Recommendation: Patient will benefit from inpatient multidisciplinary therapies Plan: Treatment/Interventions: Functional transfer training;LE strengthening/ROM;Endurance training;Bed mobility;Gait training PT Frequency: 5 Times/Week Subjective: Pt nonverbal 2/2 ETT, nods agreement to PT tx. Patient is not ambulatory at this time. Mental Status: alert, follows 1 step commands 100% At start of therapy session, patient found in bed, with no alarm and family present, BUE restraintsdonned. Pain: Patient unable to use verbal numeric scale to quantify pain, no nonverbal signs of pain notedduring session Weight Bearing Status: WBAT Mobility: Rolling: not tested Supine to Sit:Maximal assist Sit to Supine: Maximal assist Sit to Stand:Maximal assist Bed to Chair: not tested Gait: Pt is not ambulatory at this time Balance: Static Sitting: fair minus Dynamic sitting: poor Static Standing: poor Dynamic Standing: not tested Vitals: see RT notes regarding vent settings during therapy session Activity Tolerance: Patient's activity tolerance: poor Treatment/therapeutic Exercise: Pt seen for bed mobility, sitting balance training with emphasis ondecreased kyphotic posture, and transfer training sit<>stand without AD. Pt held standing x20sec with max A. Patient/Family Teaching: Exercise and Mobility Patient demonstrated Fair understanding of instructions given. Short Term Goals: Goal Formation ??With patient/family Patient will transfer supine to/from sit ?With minimal assist Patient will perform rolling ??With minimal assist Patient will achieve sitting balance ?Fair Patient will follow one step commands ??100% Retirement Goal: Patient to discharge to appropriate next level of inpatient care. Update Treatment Plan: Continue per plan If patient is discharged from the facility, this note serves as a discharge note if further physical therapy visits did not occur. Following therapy session, patient left in bed, with call light within reach, with family in room, with RNKendall aware and BUE restraints donned. Arielle Maria, PT 10/25/2017 * Alejo Agustin MD - 10/25/2017 9:37 AM CDT PT NAME : Rosa Solorio Li PT Date of admit : 10/14/2017 8:26 PM Rosa Li??is a 56 y.o.??female??with a ??hx of HERNANDEZ cirrhosis (from cholestatic obstructivedisease s/p cholecystectomy 01/2017)??, ascites and hypotension. Patient was transferred from OSH on 10/11 with SOB and sepsis, presumably secondary to pneumonia; ??hyponatremia and JENNIFER (BL Cr 0.8). Patient has been receiving pressors and mechanical ventilation. Initial workup: Imaging of kidneys (limited abdominal US , Rt kidney with increased echogenicity but no hydronephrosis)- upper part of left kidney appears normal on chest CT- Urine Na <??20, UA suggestive of UTI. TTE 05/2017, EF 55%?? Patient has been on CRRT ? SUBJECTIVE/ 24 hr Events: Continues on CRRT, UF well tolerated Patient is conscious Intubated on mechanical ventilation. Still on low dose levophed Increase in WBC OBJECTIVE: VITALS: Vitals: 10/25/17 10/25/17 10/25/17 10/25/17 0600 0700 0800 0835 BP: 109/56 114/62 109/59 Pulse: 73 77 78 74 Resp: 21 20 22 Temp: 97.3 ??F (36.3 ??C) SpO2: 99% 97% 95% 96% Weight: Estimated body mass index is 21.1 kg/(m^2) as calculated from the following: Height as of this encounter: 1.524 m (5'). Weight as of this encounter: 49 kg (108 lb 0.4 oz). I/O: Intake/Output Summary (Last 24 hours) at 10/25/17 0937 Last data filed at 10/25/17 0800 Gross per 24 hour Intake 849 ml Output 2910 ml Net -2061 ml UF 2620 PHYSICAL EXAM: Vent: FiO2 30%, Peep 5. BP 109/56 General: ??female, lying in bed, intubated, on mechanical ventilation,??NAD. HEENT: NT/NC, MMM. Neck: no JVD, no LAD, no thyromegaly. Respiratory: lungs clear bilaterally, no crackles/wheezes. Decreased respiratory sounds in right base CVS: RRR, S1 S2 heard, no murmurs. Abdomen: Soft, Non-tender, non-distended, abdomen wall edema, bowel sounds audible. Musculoskeletal: ??No joint swelling. LE pedal edema decreasing. Neuro: Responsive, conscious, non focal?? Skin: no rash, no cyanosis LAB: Recent Labs Component Name 10/25/17 0500 10/24/17 0444 10/24/17 0339 10/23/17 0556 10/23/17 0348 10/22/17 1120 10/22/17 0446 10/21/17 1202 HGB 9.1* 8.7* - 8.4* - 7.8* 8.4* 8.0* WBC 22.8* 13.0* - 10.2 - 10.6* 12.9* 14.3* PLT 65* 63* - 52* - 42* 42* 57* HCT 27.4* 26.2* - 24.2* - 22.3* 23.9* 22.4* MCV 94.8 93.9 - 90.0 - 88.8 89.2 87.8 PT 12.5 - 14.1 - 15.3* - 17.6* 19.3* INR 1.0 - 1.1 - 1.2 - 1.5 1.7 Recent Labs Component Name 10/25/17 0500 10/25/17 0021 10/24/17 1154 10/24/17 0316 10/23/17200810/14/17 2239 09/03/17 BUN 17 17 17 14 12 12 10 - - - 17 CREATININE 0.7 0.7 0.6 0.6 0.6 0.6 0.6 - - - - NA 140 140 141 138 140 140 139 - - - 126* K - - - - - - 3.4* - 5.2* CL 104 104 105 105 105 105 106 - - - 90* CO2 24 24 24 26 23 23 22 - - - 25.0 CALCIUM 9.4 9.4 9.3 8.7 8.9 8.9 8.2* - - - 8.7* GLU 145* 145* 207* 228* 175* 175* 189* - - - 121* PHOS 1.9* 1.7* 2.0* 2.1* 2.0* - - - - - = values in this interval not displayed. Recent Labs Component Name 10/25/17 0500 10/25/17 0021 10/24/17 1154 10/24/17 0316 10/23/17 2009 10/23/17 0348 10/22/17 0446 10/21/178 ALB 3.4 3.4 3.3* 3.1* 3.4 3.4 3.1* - 3.0* 3.0* - 3.1* 3.1* - 3.6 TBILI 1.5* - - 1.6* - - 1.8* - 1.8* - 1.4* ALT 17 - - 14 - - 13 - 14 - 13 AST 30 - - 25 - - 29 - 33 - 37* - = values in this interval not displayed. Invalid input(s): PHART, KIH5WBC, PO2ART, [id number] ASSESSMENT: # JENNIFER in the setting of infection (penumonia), low urine sodium, possibly ??HRS type 1 and associated JENNIFER secondary to shock patient continues anuric, on CRRT. # Sepsis. WBC increasing , 05/01 ? #??Liver cirrhosis with ascites. Patient apparently no candidate for liver transplant ? -# Hyponatremia in the setting of JENNIFER + cirrhosis. Controlled ? # Metabolic acidosis. Controlled ? # Thrombocytopenia ? -# Pneumonia with septic shock. Still on pressors ? Recommendations/Plan: - Will continue CRRT for now. Will consider discontinuing if patient extubated. Then will try iHD if hemodynamical conditions allow it - Patient will need a HD tunneled catheter to continue HD Patient seen and examined at the bedside, plan of care discussed with the attending, Dr. Hidalgo We will continue to follow the patient with you. Please do not hesitate to contact us with further questions. Alejo Alejo MD. Nephrology Fellow. # [phone].?? We will continue to follow the patient with you. Please do not hesitate to contact us with further questions. Alejo Alejo MD. Nephrology Fellow. # [phone]. * Ronaldo Flynn, DO - 10/25/2017 8:20 AM CDT MICU Progress Note 10/25/2017 8:20 AM Hospital course: Per EMR and updated by me, Ms. Li??is a 56 y.o.??female??w/ hx of HERNANDEZ-cirrhosis c/b ascites requiring LVPs q1-2 weeks, chronic hypotension, and cholestatic obstructive disease s/p cholecystectomy is transferred from [facility] where she presented 10/11 with hyponatremia at 115, acute respiratory failure requiring intubation (10/14) and shock. At OSH LVP negative for SBP. Lg R effusion on CXR. Shock requiring PICC and pressors at OSH. Started on CTX and Flagyl. ?? Here at [facility] she continued to require levophed but titrating down, continued broad spectrum abx changed to vanc/zosyn for suspected PNA - culture negative to date so vancomycin discontinued and zosyn continued. CT PE showing no PE but b/l GGOs suggesting??infection. Thoracentesis was transudate. Admission Na was 122, and is persistently low here, but improving. Admitted with oliguric JENNIFER worseningand AGMA despite treating sepsis which was thought to be 2/2 Type 1 HRS so started on CRRT on 10/19 as well albumin, octreotide subq, midodrine and levofed to maintain MAPS>65. On 10/19 had repeat paracentesis that was negative for SBP. CRRT UF increased as tolerated to reduce volume overload state and optimize extubation success. Subjective: No issues overnight. Comfortable. Denies pain. On UF 125cc/hr. Remains off pressors andnot tachypnic on PSV 8/5 30% fio2. Pulling 300-360 Vt Objective: Temp: [97.3 ??F (36.3 ??C)-98 ??F (36.7 ??C)] 97.3 ??F (36.3 ??C) Pulse: [65-86] 78 Resp: [18-23] 22 BP: (96-122)/(38-77) 109/59 O2 %: [30 %-35 %] 30 % Intake/Output Summary (Last 24 hours) at 10/25/17 0820 Last data filed at 10/25/17 0600 Gross per 24 hour Intake 749 ml Output 3032 ml Net -2283 ml GEN: intubated, RASS 0. Alert. critically ill white woman. HEENT: Sclera anicteric. CHEST: ctabl, non-labored HEART: RRR, Normal S1, S2. No murmurs/rubs/gallops. ABD: Soft, mild distention, normal sounds. EXT: improved edema. Ecchymosis of posterior hands with interosseous wasting. NEURO: Alert and appropriately interactive. Moving all extremities with moderate generalized weakness. Data Review CBC: Recent Labs Component Name 10/25/17 0500 10/24/17 0444 10/23/17 0556 WBC 22.8* 13.0* 10.2 HGB 9.1* 8.7* 8.4* PLT 65* 63* 52* BMP: Recent Labs Component Name 10/25/17 0500 10/25/17 0021 10/24/17 1154 10/14/17 2239 09/03/17 NA 140 140 141 138 - - - 126* K - - - - 3.4* - 5.2* CL 104 104 105 105 - - - 90* CO2 24 24 24 26 - - - 25.0 BUN 17 17 17 14 - - - 17 CREATININE 0.7 0.7 0.6 0.6 - - - - GLU 145* 145* 207* 228* - - - 121* - = values in this interval not displayed. Recent Labs Component Name 10/25/17 0500 10/25/17 0021 10/24/17 1154 CALCIUM 9.4 9.4 9.3 8.7 PHOS 1.9* 1.7* 2.0* LFT: Recent Labs Component Name 10/25/17 0500 10/25/17 0021 10/24/17 1154 10/24/17 0316 10/23/17 0348 PROT 6.0 - - 5.5* - 4.6* ALB 3.4 3.4 3.3* 3.1* 3.4 3.4 - 3.0* 3.0* ALKPHOS 652* - - 470* - 304* AST 30 - - 25 - 29 ALT 17 - - 14 - 13 - = values in this interval not displayed. Coagulation: Recent Labs Component Name 10/25/17 0500 10/24/17 0339 10/23/17 0348 PT 12.5 14.1 15.3* INR 1.0 1.1 1.2 Cardiac markers: Recent Labs Component Name 08/07/17 0859 08/07/17 0142 TROPONINI <0.010 0.017 HIT panel negative P-ANCA positive 1:20 Low complement levels Phos critically low 1.0 and <0.7 ASO titers negative HIV neg DS DNA neg Acute hepatitis negative Anti GBM pending Cryo neg MARILEE neg Mitochondrial ab neg Anti MPO and PR3 ab negative SPEP - polyclonal Ig SSA SSB neg [place] lambda ratio 2.3 Assessment and Plan Neurologic: Resolved Acute encephalopathy -due to sepsis, ICU delirium, and HE -off sedation currently. -lactulose 10g qd for BM 2-3 per day. Cardiovascular: Septic shock, resolved -source pneumonia likely but mild RV dysfunction a possible confounder. -off pressors since 10/24. Continue midodrine 15mg tid -decrease hydrocortisone 50mg q12h from q6h. Wean as tolerated. -s/p zosyn x 10 days. EOT was 10/23. Pulmonary: Acute hypoxic respiratory failure, improving. -due to pneumonia and pulmonary edema in setting of volume overload as well as pleural effusion. -intubated at OSH on 10/14. On PSV 8cm pressure support doing well over past 24 hours. Likely extubation later today or tomorrow. -s/p zosyn as above -duonebs q4h prn Pleural effusion, resolved s/p thora on 10/15. Likely hepatic hydrothorax. Cor Pulmonale: possible portopulmonary hypertension. -defer RHC for now. GI: Decompensated HERNANDEZ cirrhosis -MELD-Na score: 8 at 10/25/2017 5:00 AM MELD score: 8 at 10/25/2017 5:00 AM Calculated from: Serum Creatinine: 0.7 mg/dL (Rounded to 1) at 10/25/2017 5:00 AM Serum Sodium: 140 mmol/L (Rounded to 137) at 10/25/2017 5:00 AM Total Bilirubin: 1.5 mg/dL at 10/25/2017 5:00 AM INR(ratio): 1.0 at 10/25/2017 5:00 AM Age: 56 years -Autoimmune evaluation positive p-ANCA 1:20 but negative MPO ab. -HE: continue lactulose 10g qd. -EV no prior -Ascites - s/p LVP 3L 10/19, no SBP -HCC - US neg -Txp - not candidate due to poor functional status and tobacco use Tube feeds through OG -on osmolite 1.5kcal. Hold for now until determine extubation status. Renal: Oliguric JENNIFER on CRRT with volume overload. -nephrology following. Suspect HRS type 1 vs less likely autoimmune process vs vasculitis. -Autoimmune evaluation showed P-ANCA positive as above. Peripheral smear without schistocytes to suggest microangiopathy. -on CRRT. Had net neg 2.3L over past day. UF adjusting per nephrology. No IVF boluses. If hypotension worsens would decrease UF. -stop octreotide gtt for 2 weeks total. Will stop today. Endocrine: Accuchecks Q4 hours; target glucose 140 - 180 I.D.: Bacterial CAP with sepsis, resolved - CXR with opacity, CT w b/l GGOs and in distributive shock - s/p zosyn x 10 days. EOT 10/23. Negative culture data to date. ?? Heme/Onc: Normocytic anemia, stable -unclear cause. Possible sepsis vs cirrhosis vs less likely DIC. No obvious bleeding. Haptoglobin normal. LDH normal so unlikely hemolytic process. CT negative for RP bleed on 10/19. -trend cbc qd. Transfuse < 7. Coagulopathy -INR improved now. Vit K given 10/19, 10/21. Thrombocytopenia, stable -down to 50-60s from 180s on admission. -HIT panel negative. Likely due to sepsis and CRRT and cirrhosis. Transfusion Protocol Plt <??10. Will restart heparin TID until plt < 50. Lines/Drains/Tubes: PICC 10/13. Johnson 10/15. OG 10/15. ETT 10/14. LIJ 10/18 DVT ppx: SCDs since thrombocytopenia and coagulopathy. GI ppx: ppi Aspiration precautions - elevate head of bed 30 degrees. Diet: hold TF until for sure not extubating today. Activity: dangle at bedside PT/OT consulted Disposition: ICU Monitoring RONALDO Flynn DO 10/25/2017 8:20 AM Associated attestation - Reuben Tellez MD - 10/25/2017 3:[address] [facility] Critical Care Medicine (MICU) Attending Note Date of service: 10/25/2017 The patient seen, reviewed history,examined and discussed with residents and MICU Team. I have reviewed and agree with resident note except as noted below: Awake, alert. s1s2 reg. Lungs clear. Decreased edema. Abdomen soft, nt. 56f cirrhosis, admitted to osh with resp failure and hyponatremia, developed JENNIFER and shock. [facility] ? Acute encephalopathy: 2/2 sepsis and liver dz -minimize sedation -lactulose as needed -improving ? Shock: septic. Source likely lung. RV dysfunction may be contributing -goal net neg volume status -pressors as needed. Ok to use low dose norepi to support fluid removal (up to 0.1 mcg/kg/min) -wean hydrocortisone today. -wbc up likely 2/2 steroids, but watch for secondary infections -s/p zosyn for pna. -paracentesis neg for SBP at osh and here -s/p steroids -high risk for candidemia. Add antifungal if becomes more unstable. ? Cor pulmonale: suspect portopulmonary hypertension although PASP not high on echo (maybe falsely low due to RV dysfunction and low cardiac output -ct chest neg for PE -defer RHC for now -repeat limited echo at some point, when no longer criticaly ill. ? Acute resp failure: 2/2 pna, fluid overload, ascites -continue vent support. Hope to extubate today -therapeutic paracentesis for ascites as needed, to prevent abdominal distension -s/p zosyn x 7d for pna. ? Jennifer: probably HRS, worsened by contrast -continue crrt -finish octreotide today -will need tunneled dialysis line if no recovery ? Cirrhosis: 2/2 HERNANDEZ -watch liver enzymes, coags -treat encephalopathy as above -high alk phos. autoimmune workup neg ? Hyponatremia: 2/2 liver dz, sepsis -limit free water -improving on CRRT ? Thrombocytopenia: probably from liver dz and sepsis -improving. Resume heparin sq -hit ab neg ? Hypophosphatemia: 2/2 crrt, malnutrition -replete IV as needed PT/OT Tube feeds on hold for extubation Active Hospital Problems Acute encephalopathy Priority: Not Prioritized [19] Date Noted: 10/19/2017 Acute respiratory failure with hypoxia Priority: Not Prioritized [19] Date Noted: 10/19/2017 JENNIFER (acute kidney injury) Priority: Not Prioritized [19] Date Noted: 10/19/2017 Liver cirrhosis secondary to HERNANDEZ Priority: Not Prioritized [19] Date Noted: 10/19/2017 Cor pulmonale (chronic) Priority: Not Prioritized [19] Date Noted: 10/19/2017 Septic shock Priority: Not Prioritized [19] Date Noted: 10/14/2017 Critical care time 33 minutes, excluding procedures Pt. is at high risk for complications and morbidity or mortality Pt. is critically ill with vital organ impairment or failure There is high probability of imminent or life threatening deterioration in the patient???s condition Time involved in the performance of separately billable procedures, teaching, reviewing education material was not counted towards critical care time. * Ashlyn Edwards RCP - 10/25/2017 4:21 AM CDT RSBI=74 Patient tolerating PSV8/5 30% throughout shift * Vito Roger MD - 10/24/2017 12:18 PM CDT MICU ATTENDING PROGRESS NOTE The patient's history was reviewed with the MICU Resident/s. Patient was seen and examined with theMICU Team. I agree with the findings and assessment and recommendations except as follows: The patient is a 56 y.o. female who was admitted to the MICU for acute respiratory failure. S> The patient remained hemodynamically stable on CRRT and pressure support ventilation at 12 cmH2O overnight. The patient had no new acute events overnight. This morning, the patient denied any dyspnea, chest pain, abdominal pain, nausea, etc. No past medical history on file. Current Facility-Administered Medications Medication ??? melatonin tablet 3 mg ??? hydrocortisone sodium succinate PF (Solu-CORTEF) injection 50 mg ??? lactulose (CHRONULAC) solution 10 g ??? 0.9% NaCl infusion for blood ??? fentaNYL (PF) (SUBLIMAZE) injection 25 mcg ??? artificial tears ophthalmic ointment ??? octreotide (SandoSTATIN) injection 100 mcg ??? PRISMASOL BGK 4/2.5 crrt solution ??? midodrine (PROAMATINE) tablet 15 mg ??? glucose (Diabetic Use) oral gel ??? dextrose IV 12.5-25 g ??? glucagon (GLUCAGEN) injection 1 mg ??? insulin aspart (NovoLOG) pen 0-6 Units ??? chlorhexidine (PERIDEX) 0.12 % oral solution ??? perflutren Lipid Microsphere (DEFINITY) injection SUSP 0.5 mL ??? polyethyl glycol-propyl glycol (SYSTANE) 0.4-0.3 % ophth solution 1 drop ??? pantoprazole (PROTONIX) injection 40 mg ??? norepinephrine (LEVOPHED) 8 mg/250 ml D5 infusion premix ??? albuterol-ipratropium (DUO-NEB) nebulizer solution 3 mL Allergy: Allergies Allergen Reactions ??? Meperidine Other MS CHANGES, RESP DEPRESSION O> PE: BP 103/71 Pulse 86 Temp 97.4 ??F (36.3 ??C) Resp 22 Ht 5' (1.524 m) Wt 110 lb (49.9 kg) SpO2 94% BMI 21.48 kg/m2 General: The patient is awake, nods and shakes head to questions, and not in cardiopulmonary distress. (+) decreased breath sounds bilaterally. No crackles. No rhonchi. No wheezing. Regular heart rhythm. No S3 or S4. No murmurs. Abdomen: protuberant, nontender No cyanosis. No clubbing. (+) edema on the hips I - O = -2559 ml Laboratory tests, imaging studies, and other ancillary test results available on [facility] reviewed withthe residents. ASSESSMENT: 1. Acute hypoxemic respiratory failure due to: A. Nosocomial pneumonia, treated with Pip/tazo B. Restrictive ventilatory impairment due to hepatic hydrothorax/ascites 2. History of cigarette smoking 3. S/p shock, consider: A. Septic shock B. Distributive shock from liver disease 4. Non-alcoholic steatohepatosis 5. JENNIFER prob due to hepatorenal syndrome 6. Anemia of chronic disease (renal) 7. Thrombocytopenia consider: A. Hypersplenism from liver disease ?? PLAN: 1. Lactulose 2. Pip/tazo course completed yesterday 3. Low PSV spontaneous breathing trial: Reduce PS to 8 cmH2O as tolerated 4. Shock regimen: A. Norepinephrine IV titrated to maintain <aP > 60 mmHg B. Hydrocortisone 50 gm IV q6h 5. The patient is not a candidate for liver transplantation due to smoking 6. On pantoprazole for GI prophylaxis 7. CRRT 8. Hold heparin SQ for now 9. SCD ?? Vito Roger MD, [facility], [facility], [facility] Law Firm Consultant, [facility] Sleep Disorders [place] Professor of Internal Medicine Adjunct Jet Dyeing Machine Tender of Neurology Division of Pulmonary, Critical Care, and Sleep Medicine [facility] ?? * Yoana Lund RN - 10/24/2017 8:10 AM CDT CRRT/CVVHD NOTE: Call received from icu nurse maren he noticed some leak from somewhere and returened blood befor shift change. New cartridged installed and tx resuned at this time. Daily support and daily non tx with equipment support rounds made. Dialysate flow = 0.8 mls per hour. UF = 125 mls per hour. Blood flow = 200 mls per minute. A ddess pressure = -55. Venous pressure = 118. BP = 121/40. Remains intubated on vent with coarse BS.Remains edematous. with pr. TERRY cath flows well. Report given to day shift work. Yoana lund RN. * Ronaldo Flynn DO - 10/24/2017 8:02 AM CDT MICU Progress Note 10/24/2017 8:02 AM Hospital course: Per EMR and updated by me, Ms. Li??is a 56 y.o.??female??w/ hx of HERNANDEZ-cirrhosis c/b ascites requiring LVPs q1-2 weeks, chronic hypotension, and cholestatic obstructive disease s/p cholecystectomy is transferred from [facility] where she presented 10/11 with hyponatremia at 115, acute respiratory failure requiring intubation (10/14) and shock. At OSH LVP negative for SBP. Lg R effusion on CXR. Shock requiring PICC and pressors at OSH. Started on CTX and Flagyl. ?? Here at [facility] she continued to require levophed but titrating down, continued broad spectrum abx changed to vanc/zosyn for suspected PNA - culture negative to date so vancomycin discontinued and zosyn continued. CT PE showing no PE but b/l GGOs suggesting??infection. Thoracentesis was transudate. Admission Na was 122, and is persistently low here, but improving. Admitted with oliguric JENNIFER worseningand AGMA despite treating sepsis which was thought to be 2/2 Type 1 HRS so started on CRRT on 10/19 as well albumin, octreotide subq, midodrine and levofed to maintain MAPS>65. On 10/19 had repeat paracentesis that was negative for SBP. CRRT UF increased as tolerated to reduce volume overload state and optimize extubation success. Subjective: Weaned off NE gtt overnight. Started hydrocortisone yesterday. Denies pain. Tolerated PS 12 for past 24 hours pulling Vt 300-350s. Objective: Temp: [97.4 ??F (36.3 ??C)-98.2 ??F (36.8 ??C)] 97.5 ??F (36.4 ??C) Pulse: [68-89] 89 Resp: [19-28] 23 BP: (68-112)/(37-80) 112/43 O2 %: [35 %] 35 % Intake/Output Summary (Last 24 hours) at 10/24/17 0802 Last data filed at 10/24/17 0600 Gross per 24 hour Intake 1335 ml Output 3743 ml Net -2408 ml GEN: intubated, RASS 0. Alert. critically ill white woman. HEENT: PERRL. Sclera anicteric. CHEST: ctabl, non-labored HEART: RRR, Normal S1, S2. No murmurs/rubs/gallops. ABD: Soft, mild-moderate distention, normal sounds. EXT: improved edema. Isolated to hips only. NEURO: Alert and appropriately interactive. Moving all extremities with marked generalized weakness. Data Review CBC: Recent Labs Component Name 10/24/17 0444 10/23/17 0556 10/22/17 1120 WBC 13.0* 10.2 10.6* HGB 8.7* 8.4* 7.8* PLT 63* 52* 42* BMP: Recent Labs Component Name 10/24/1731510/23/17200810/23/17112910/14/17223809/03/17 NA 140 140 139 139 - - - 126* K - - - - 3.4* - 5.2* CL 105 105 106 104 - - - 90* CO2 23 23 22 27 - - - 25.0 BUN 12 12 10 9 - - - 17 CREATININE 0.6 0.6 0.6 0.5* - - - - GLU 175* 175* 189* 181* - - - 121* - = values in this interval not displayed. Recent Labs Component Name 10/24/1731510/23/17200810/23/17 1130 CALCIUM 8.9 8.9 8.2* 8.5 PHOS 2.1* 2.0* 2.1* LFT: Recent Labs Component Name 10/24/1731510/23/17200810/23/17 11310/23/1734710/22/17 0446 PROT 5.5* - - 4.6* - 4.5* ALB 3.4 3.4 3.1* 3.0* 3.0* 3.0* - 3.1* 3.1* ALKPHOS 470* - - 304* - 315* AST 25 - - 29 - 33 ALT 14 - - 13 - 14 - = values in this interval not displayed. Coagulation: Recent Labs Component Name 10/24/17 0339 10/23/1734710/22/17 0446 PT 14.1 15.3* 17.6* INR 1.1 1.2 1.5 Cardiac markers: Recent Labs Component Name 08/07/17 0859 08/07/17 0142 TROPONINI <0.010 0.017 HIT panel negative P-ANCA positive 1:20 Low complement levels Phos critically low 1.0 and <0.7 ASO titers negative HIV neg DS DNA neg Acute hepatitis negative Anti GBM pending Cryo neg MARILEE neg Mitochondrial ab neg Anti MPO and PR3 ab negative SPEP - polyclonal Ig SSA SSB neg [place] lambda ratio 2.3 Assessment and Plan Neurologic: Acute encephalopathy, seems resolved but remains intubated. -due to sepsis, ICU delirium, and HE -off sedation currently. Minimize sedation. -lactulose 10g qd for BM 2-3 per day. Cardiovascular: Septic shock, resolved -source pneumonia likely but mild RV dysfunction a possible confounder. -off pressors since 10/24. Continue midodrine 15mg tid -continue hydrocortisone 50mg q6h. Wean as tolerated tomorrow. -s/p zosyn x 10 days. EOT 10/23. Pulmonary: Acute hypoxic respiratory failure, improving. -due to pneumonia and pulmonary edema in setting of volume overload as well as pleural effusion. -intubated at OSH. Continue ventilator. On PSV 8cm pressure support down from 12 cm h2o. Possible extubation tomorrow. If tachypneic would add more pressure support. -s/p zosyn as above -duonebs q4h prn Pleural effusion, resolved s/p thora on 10/15. Likely hepatic hydrothorax. Cor Pulmonale: possible portopulmonary hypertension. -defer RHC for now. GI: Decompensated HERNANDEZ cirrhosis -MELD-Na score: 9 at 10/24/2017 3:39 AM MELD score: 9 at 10/24/2017 3:39 AM Calculated from: Serum Creatinine: 0.6 mg/dL (Rounded to 1) at 10/24/2017 3:16 AM Serum Sodium: 140 mmol/L (Rounded to 137) at 10/24/2017 3:16 AM Total Bilirubin: 1.6 mg/dL at 10/24/2017 3:16 AM INR(ratio): 1.1 at 10/24/2017 3:39 AM Age: 56 years -follow autoimmune evaluation studies. -HE continue lactulose. -EV no prior -Ascites - s/p LVP 3L 10/19, no SBP -HCC - US neg -Txp - not candidate due to poor functional status and tobacco use Tube feeds through NG -on osmolite 1.2 kcal. Goal 40cc/hr. Renal: Oliguric JENNIFER on CRRT with volume overload. -nephrology following. Suspect HRS type 1 vs less likely autoimmune process. -on CRRT. Had net neg 2.5L over past day. UF adjusting per nephrology. No IVF boluses. If hypotension worsens would decrease UF. -continue octreotide gtt for 2 weeks total. Start weaning tomorrow. Endocrine: Accuchecks Q4 hours; sliding scale for target glucose 140 - 180 I.D.: Bacterial CAP with sepsis - CXR with opacity, CT w b/l GGOs and in distributive shock - s/p zosyn x 10 days. EOT 10/23. Negative culture data to date. ?? Heme/Onc: Normocytic anemia, stable -unclear cause. Possible sepsis vs cirrhosis vs less likely DIC. No obvious bleeding. Haptoglobin normal. LDH normal so unlikely hemolytic process. CT negative for RP bleed on 10/19. -trend cbc qd. Transfuse < 7 Coagulopathy -INR 2.1 stable. Vit K given 10/19, 10/21. Thrombocytopenia, stable -down to 50-60s from 180s on admission. -HIT panel negative. Likely due to sepsis and CRRT. Transfusion Protocol Plt <??10. Hold SQ heparin for now. Lines/Drains/Tubes: PICC 10/13. Johnson 10/15. OG 10/15. ETT 10/14. LIJ 10/18 DVT ppx: SCDs since thrombocytopenia and coagulopathy. GI ppx: ppi Aspiration precautions - elevate head of bed 30 degrees. Diet:TF goal 40cc/hr Activity: dangle at bedside PT/OT consulted Disposition: ICU Monitoring RONALDO Flynn DO 10/24/2017 8:02 AM * Mireya Magana DO - 10/23/2017 6:56 PM CDT ICU Progress Note 10/23/2017 6:56 PM Date of Admission: 10/14/2017 SUBJECTIVE: Ms. Li??is a 56 y.o.??female??w/ hx of HERNANDEZ-cirrhosis c/b ascites requiring LVPs q1-2 weeks, chronic hypotension, and cholestatic obstructive disease s/p cholecystectomy is transferred from [facility] where she presented 10/11 with hyponatremia at 115, acute respiratory failure requiring intubation (10/14) and shock. Interval history: No acute events. Still on levo at 0.02. Denies any pain. Medications: hydrocortisone sodium succinate PF 50 mg Intravenous q6h lactulose 10 g Enteral Tube AT BEDTIME artificial tears Each Eye q8h octreotide 100 mcg Subcutaneous TID midodrine 15 mg Oral q8h insulin aspart 0-6 Units Subcutaneous q4h chlorhexidine Mouth/Throat BID perflutren Lipid Microsphere 0.5 mL Intravenous intra-Procedure multiple polyethyl glycol-propyl glycol 1 drop Each Eye q8h pantoprazole 40 mg Intravenous QDAY piperacillin-tazobactam 3.375 g Intravenous q8h Infusions: norepinephrine 0-0.4 mcg/kg/min Last Rate: 0.02 mcg/kg/min (10/23/171820) PRN Medications: 0.9% NaCl??? fentaNYL (PF)??? PRISMASOL BGK 4/2.5??? glucose (Diabetic Use)??? dextrose??? glucagon??? albuterol-ipratropium OBJECTIVE: Vital Signs: Temp: [93.2 ??F (34 ??C)-98.2 ??F (36.8 ??C)] 98.2 ??F (36.8 ??C) Pulse: [65-87] 80 Resp: [15-28] 24 BP: (68-100)/(43-71) 90/67 Arterial Line BP #2: (80-100)/(45-71) 80/59 O2 %: [35 %] 35 % Wt Readings from Last 3 Encounters: 10/23/17 : 49.9 kg (110 lb) 08/08/17 : 39.9 kg (87 lb 14.4 oz) 08/06/17 : 37.2 kg (82 lb) Intake/Output Summary (Last 24 hours) at 10/23/17 1856 Last data filed at 10/23/17 1800 Gross per 24 hour Intake 1770 ml Output 4029 ml Net -2259 ml General: Intubated, awake and alert, answers to questions by noding HEENT: Normocephalic, mucosa normal, no drainage. Conjunctivae/corneas clear, PERRL, Trachea midline, no JVD, no LAD Lungs: Clear to auscultation bilaterally, no crackles Heart: RRR, S1 and S2 normal, no murmur appreciated. Abdomen:distended, non- tender Extremities: no lower extremity edema, No cyanosis Skin: No rashes or lesions. Data Review: CBC: Recent Labs Component Name 10/23/17 0556 10/22/17 1120 10/22/17 0446 10/21/17 1202 10/21/17 0318 WBC 10.2 10.6* 12.9* 14.3* 16.3* HGB 8.4* 7.8* 8.4* 8.0* 8.0* PLT 52* 42* 42* 57* 62* MCV 90.0 88.8 89.2 87.8 86.8 BMP: Recent Labs Component Name 10/23/17 11310/23/1734710/22/17201110/22/17 11310/22/17 0446 10/14/17 2239 09/03/17 NA 139 136 136 136 138 138 138 - - - 126* K - - - - - - 3.4* - 5.2* CL 104 107 107 105 106 105 105 - - - 90* CO2 27 23 23 24 25 25 25 - - - 25.0 BUN 9 8 8 7 6* 6* 6* - - - 17 CREATININE 0.5* 0.5* 0.5* 0.5* 0.6 0.6 0.6 - - - - GLU 181* 170* 170* 186* 170* 188* 188* - - - 121* - = values in this interval not displayed. Recent Labs Component Name 10/23/17 11310/23/1734710/22/17201110/22/17113210/22/17 0446 CALCIUM 8.5 8.3* 8.3* 8.4 8.5 9.0 9.0 PHOS 2.1* 2.5 2.7 2.0* 2.9 LFT: Recent Labs Component Name 10/23/17 11310/23/1734710/22/1710/22/18 1133 10/22/17 0446 10/21/17 0318 10/20/17 0341 10/19/17 0404 08/07/17 0201 PROT - 4.6* - - 4.5* - 4.7* - 4.9* - 5.9* - - ALB 3.0* 3.0* 3.0* 3.1* 3.1* 3.1* 3.1* - 3.6 - 4.1 - 5.5* - - ALKPHOS - 304* - - 315* - 315* - 296* - 271* - - AST - 29 - - 33 - 37* - 42* - 29 - - ALT - 13 - - 14 - 13 - 12 - 9 - - TBILI - 1.8* - - 1.8* - 1.4* - 2.0* - 1.4* - - DBILI - - - - - - - - - - - - 0.3 IBILI - - - - - - - - - - - - 0.2 - = values in this interval not displayed. Coagulation: Recent Labs Component Name 10/23/17 0348 10/22/17 0446 10/21/17 1202 10/21/17 0318 10/20/172000 PT 15.3* 17.6* 19.3* 19.9* 20.3* INR 1.2 1.5 1.7 1.7 1.8 Cardiac markers: Recent Labs Component Name 08/07/17 0859 08/07/17 0142 TROPONINI <0.010 0.017 ABG: No results for input(s): BASEEXCESS in the last [id number] hours. Invalid input(s): PHART, EVI0UQL, PO2ART, XZW2TWB, SO2ABG, FOHBABG IMAGING: Ct Abdomen Pelvis Wo Contrast Result Date: 10/19/2017 IMPRESSION: 1. Nurya-mn-nagnfapg bilateral pleural effusions with confluent groundglass opacities and consolidation throughout both lungs likely representing pulmonary edema or multifocal pneumonia, not significantly changed from prior exam. 2. Large volume abdominopelvic ascites and diffuse body wall anasarca. 3. Persistent nephrogram in bilateral kidneys on this noncontrast examination likely from the prior CT PE protocol of 10/15/2017. This likely represents systemic hypotension. Xr Chest 1vw Portable Result Date: 10/22/2017 FINDINGS/IMPRESSION: An endotracheal tube tip superimposes the distal thoracic trachea. A left internal jugular approach central venous catheter tip superimposes the right atrium. A right upper extremity peripherally inserted central catheter tip superimposes the superior vena cava. An enteric tubetip superimposes the gastric body. Mild right basilar atelectasis/airspace disease is increased from prior examination. Left perihilar opacities are unchanged and may represent edema versus infection. A small left pleural effusion is increased from prior examination. No pneumothorax or right pleural effusion is identified. The cardiomediastinal silhouette is normal. Dictated by Thom Reina MD (rad iology resident). Xr Chest 1vw Portable Result Date: 10/20/2017 FINDINGS/IMPRESSION: An endotracheal tube tip superimposes the mid thoracic trachea. A left internal jugular approach central venous catheter tip superimposes the right atrium. An enteric tube tip superimposes the gastric fundus. A right upper extremity peripherally inserted central catheter tip sup erimposes the right atrium. The lung volumes are increased compared to prior examination. Left parahilar opacities are persistent and may represent edema versus infection. Left pleural effusion is suggested Right basilar atelectasis/airspace disease is decreased. There is no pneumothorax. The cardio mediastinal silhouette is normal. Xr Chest 1vw Portable Result Date: 10/19/2017 FINDINGS/IMPRESSION: Comparison made to study from 10/18/2017. The endotracheal tube terminates in the distal thoracic trachea. An enteric tube can follow to the stomach. A left internal jugular approach catheter tip terminates at the cavoatrial junction. A right peripherally inserted central venous catheter tip terminates at the cavoatrial junction. Lung volumes are reduced resulting in bronchovascular crowding. Diffuse interstitial and airspace opacities, right greater than left represent pulmonary edema or infection. There is no pleural effusion or pneumothorax. The cardiomediastinal silhouette is partially obscured. Right basilar atelectasis/airspace disease is unchanged. Dictated by Frances Varma MD (vice president global digital marketing). ASSESSMENT & PLAN: Neurological: Encephalopathy - 2/2 sepsis and liver dz - off sedation - cont lactulose, titrate 2-3 BM/day - Monitor MS QH Cardiovascular: Hypotension - 2/2 septic shock - cont pressors as needed - will start on hydrocortisone 50 mg q6 Pulmonary: Acute hypoxic respiratory failure - 2/2 PNA vs fluid overload - Zosyn Day 02/23 today - blood cx neg - cont CRRT - extubate to nasal bipap or HFNC when able GI: HERNANDEZ cirrhosis - not a transplant candidate at the moment due to smoking -MELD-Na score: 11 at 10/23/2017 11:30 AM MELD score: 11 at 10/23/2017 11:30 AM Calculated from: Serum Creatinine: 0.5 mg/dL (Rounded to 1) at 10/23/2017 11:30 AM Serum Sodium: 139 mmol/L (Rounded to 137) at 10/23/2017 11:30 AM Total Bilirubin: 1.8 mg/dL at 10/23/2017 3:48 AM INR(ratio): 1.2 at 10/23/2017 3:48 AM Age: 56 years Renal: JENNIFER - likely 2/2 HRS -cont CRRT - Strict I&Os Hyponatremia - 2/2 liver disease - cont to monitor BMP - CRRT ID: HAP - cont Zosyn - today Day 02/23 - blood cx NGTD - Johnson culture if Tmax > 100.4 Heme/Onc: Thrombocytopenia - likely 2/2 liver disease and sepsis - HIT panel neg Lines: - PICC 10/13. Johnson 10/15. NG 10/15. ETT 10/14. LIJ 10/18 - GI prophylaxis w/ PPI - DVT prophylaxis w/ SCDs Activity: - Bed Rest Disposition: - ICU Monitoring Mireya VelascoDO maude 10/23/2017 6:56 PM * Vito Roger MD - 10/23/2017 1:38 PM CDT MICU ATTENDING PROGRESS NOTE The patient's history was reviewed with the MICU Resident/s. Patient was seen and examined with theMICU Team. I agree with the findings and assessment and recommendations except as follows: The patient is a 56 y.o. female who was admitted to the MICU for acute respiratory failure. S> The patient had no new acute events overnight.The patient continued to require norepinephrine IV tomaintain adequate mean arterial pressure. She was on volume assist control overnight. This morning, she denied any dyspnea, chest pain, or abdominal pain No past medical history on file. Current Facility-Administered Medications Medication ??? hydrocortisone sodium succinate PF (Solu-CORTEF) injection 50 mg ??? heparin injection 5,000 Units ??? lactulose (CHRONULAC) solution 10 g ??? 0.9% NaCl infusion for blood ??? fentaNYL (PF) (SUBLIMAZE) injection 25 mcg ??? artificial tears ophthalmic ointment ??? octreotide (SandoSTATIN) injection 100 mcg ??? PRISMASOL BGK 4/2.5 crrt solution ??? midodrine (PROAMATINE) tablet 15 mg ??? glucose (Diabetic Use) oral gel ??? dextrose IV 12.5-25 g ??? glucagon (GLUCAGEN) injection 1 mg ??? insulin aspart (NovoLOG) pen 0-6 Units ??? chlorhexidine (PERIDEX) 0.12 % oral solution ??? perflutren Lipid Microsphere (DEFINITY) injection SUSP 0.5 mL ??? polyethyl glycol-propyl glycol (SYSTANE) 0.4-0.3 % ophth solution 1 drop ??? pantoprazole (PROTONIX) injection 40 mg ??? norepinephrine (LEVOPHED) 8 mg/250 ml D5 infusion premix ??? piperacillin - tazobactam (ZOSYN) 3.375 g in 0.9% NaCl 100 mL IVPB ??? albuterol-ipratropium (DUO-NEB) nebulizer solution 3 mL Allergy: Allergies Allergen Reactions ??? Meperidine Other MS CHANGES, RESP DEPRESSION O> PE: BP 74/52 Pulse 76 Temp 97.4 ??F (36.3 ??C) Resp 24 Ht 5' (1.524 m) Wt 110 lb (49.9 kg) SpO2 100% BMI 21.48 kg/m2 General: Awake, nods and shakes head to answer questions, and not in cardiopulmonary distress. (+) decreased breath sounds at the bases. No crackles. No rhonchi. No wheezing. Regular heart rhythm. No S3 or S4. No murmurs. Abdomen: Protuberant No cyanosis. No clubbing. No edema. I - O = -2343 ml Laboratory tests, imaging studies, and other ancillary test results available on [facility] reviewed withthe residents. Results for ROSA LI ( ) as of 10/23/2017 13:44 Ref. Range 10/22/2017 11:20 pH Arterial Latest Ref Range: 7.35 - 7.45 7.42 pCO2 Latest Ref Range: 35 - 45 mmHg 40 pO2 Arterial Latest Ref Range: 77 - 101 mmHg 103 (H) HCO3 Arterial Latest Ref Range: 22.0 - 26.0 mmol/L 25.2 TCO2 ARTERIAL ([facility]) Latest Ref Range: 25.0 - 29.0 mmol/L 26.4 Base Excess Arterial Latest Ref Range: -2.0 - 2.0 mmol/L 0.7 Hgb Arterial Latest Ref Range: 12.0 - 15.5 g/dL 8.2 (L) Oxyhemoglobin Arterial Latest Ref Range: 95.0 - 100.0 % 95.7 Carboxyhemoglobin Latest Ref Range: 0.0 - 3.0 % 0.2 METHB ARTERIAL ([facility]) Latest Ref Range: 0.0 - 2.0 % 0.5 FI O2 Arterial Latest Units: % 30.0 2d echo (10/15/2017) 1. Flattened septum consistent with RV pressure/volume overload pattern. The left ventricular cavity size, mass index, systolic and diastolic function are normal with no regional wall motion abnormalities present. The left ventricular ejection fraction is estimated at 55 %. 2. The right ventricular size is severely increased. The right ventricular systolic function is mildly decreased. 3. The right atrial cavity size is mildly increased. 4. The left atrial cavity size is mildly increased. Injection of agitated saline contrast shows no evidence of intracardiac or extracardiac shunt. 5. Mild mitral regurgitation. 6. Mild aortic valve regurgitation. 7. There is moderate to severe tricuspid valve regurgitation. 8. Pleural effusion seen. There is a trivial pericardial effusion. ASSESSMENT: 1. Acute hypoxemic respiratory failure due to: A. Nosocomial pneumonia B. Hepatic hydrothorax 2. History of cigarette smoking 3. S/p shock, consider: A. Septic shock B. Distributive shock from liver disease 4. Non-alcoholic steatohepatosis 5. JENNIFER prob due to hepatorenal syndrome 6. Anemia of chronic disease (renal) 7. Thrombocytopenia consider: A. Hypersplenism from liver disease B. Heparin-induced thrombocytopenia? PLAN: 1. Lactulose 2. Pip/tazo day 10/10 3. Volume assist control: Tidal volume = 360 ml 4. Shock regimen: A. Norepinephrine IV B. Start hydrocortisone 50 gm IV q6h 5. The patient is not a candidate for liver transplantation due to smoking 6. On pantoprazole for GI prophylaxis 7. CRRT 8. HIT panel 9. Stop heparin SQ for now 10. SCD Vito Roger MD, [facility], [facility], [facility] Law Firm Consultant, [facility] Disorders [place] Professor of Internal Medicine Adjunct Jet Dyeing Machine Tender of Neurology Division of Pulmonary, Critical Care, and Sleep Medicine [facility] * Yoana Lund RN - 10/23/2017 10:07 AM CDT SRRT/CVVHD NOTE: Daily support and non tx equipment therapy checks done. Equipment functions well and properly. Dialysate flow = 0.8 liters per hour. UF = 125 mls per hour. Blood flows = 200 mls per minute. Access pressures = -20. Venous pressures = 60. BP = 87/60. Dr Hidalgo here to see pt. Report given to nurse. Yoana Lund RN * Ronaldo Flynn DO - 10/22/2017 4:39 PM CDT MICU Progress Note 10/22/2017 4:39 PM Hospital course: Per EMR and updated by me, Ms. Li??is a 56 y.o.??female??w/ hx of HERNANDEZ-cirrhosis c/b ascites requiring LVPs q1-2 weeks, chronic hypotension, and cholestatic obstructive disease s/p cholecystectomy is transferred from [facility] where she presented 10/11 with hyponatremia at 115, acute respiratory failure requiring intubation (10/14) and shock. At OSH LVP negative for SBP. Lg R effusion on CXR. Shock requiring PICC and pressors at OSH. Started on CTX and Flagyl. ?? Here at [facility] she continued to require levophed but titrating down, continued broad spectrum abx changed to vanc/zosyn for suspected PNA - culture negative to date so vancomycin discontinued and zosyn continued. CT PE showing no PE but b/l GGOs suggesting??infection. Thoracentesis was transudate. Admission Na was 122, and is persistently low here, but improving. Admitted with oliguric JENNIFER worseningand AGMA despite treating sepsis which was thought to be 2/2 Type 1 HRS so started on CRRT on 10/19 as well albumin, octreotide subq, midodrine and levofed to maintain MAPS>65. On 10/19 had repeat paracentesis that was negative for SBP. CRRT UF increased as tolerated to reduce volume overload state and optimize extubation success. Subjective: denies pain. No issues overnight. Getting enough air on vent. Objective: Temp: [97.2 ??F (36.2 ??C)-97.4 ??F (36.3 ??C)] 97.4 ??F (36.3 ??C) Pulse: [68-97] 68 Resp: [19-37] 20 BP: (101-116)/(63-66) 116/66 Arterial Line BP #2: (69-124)/(49-74) 93/49 O2 %: [30 %-35 %] 35 % Intake/Output Summary (Last 24 hours) at 10/22/17 1639 Last data filed at 10/22/17 1420 Gross per 24 hour Intake 1634 ml Output 3804 ml Net -2170 ml GEN: intubated, RASS 0. Alert. critically ill white woman. HEENT: PERRL. Sclera anicteric. CHEST: diffusely course inspiratory and expiratory sounds. HEART: RRR, Normal S1, S2. No murmurs/rubs/gallops. ABD: Soft, mild-moderate distention, normal sounds. EXT: improved edema. Isolated to hips only. NEURO: Alert and appropriately interactive. Moving all extremities with marked generalized weakness. Data Review CBC: Recent Labs Component Name 10/22/17 1120 10/22/17 0446 10/21/17 1202 WBC 10.6* 12.9* 14.3* HGB 7.8* 8.4* 8.0* PLT 42* 42* 57* BMP: Recent Labs Component Name 10/22/17 1133 10/22/17 0446 10/21/171 05/31223809/03/17 NA 138 138 138 138 - - - 126* K - - - - 3.4* - 5.2* CL 106 105 105 105 - - - 90* CO2 25 25 25 26 - - - 25.0 BUN 6* 6* 6* 5* - - - 17 CREATININE 0.6 0.6 0.6 0.6 - - - - GLU 170* 188* 188* 199* - - - 121* - = values in this interval not displayed. Recent Labs Component Name 10/22/17 11310/22/1744510/21/172050 CALCIUM 8.5 9.0 9.0 8.4 PHOS 2.0* 2.9 2.9 LFT: Recent Labs Component Name 10/22/17 11310/22/1744510/21/17205010/21/178 10/20/17 0341 PROT - 4.5* - - 4.7* - 4.9* ALB 3.1* 3.1* 3.1* 3.3* - 3.6 - 4.1 ALKPHOS - 315* - - 315* - 296* AST - 33 - - 37* - 42* ALT - 14 - - 13 - 12 - = values in this interval not displayed. Coagulation: Recent Labs Component Name 10/22/176 10/21/17 1202 10/21/178 PT 17.6* 19.3* 19.9* INR 1.5 1.7 1.7 Cardiac markers: Recent Labs Component Name 08/07/17 0859 08/07/17 0142 TROPONINI <0.010 0.017 HIT panel negative P-ANCA positive 1:20 Low complement levels Phos critically low 1.0 and <0.7 ASO titers negative HIV neg DS DNA neg Acute hepatitis negative Anti GBM pending Cryo neg MARILEE neg Mitochondrial ab neg Anti MPO and PR3 ab negative SPEP - polyclonal Ig SSA SSB neg [place] lambda ratio 2.3 Assessment and Plan Neurologic: Acute encephalopathy, seems resolved but remains intubated. -due to sepsis, ICU delirium, and HE -off sedation currently. Minimize sedation. -lactulose for BM 2-3 per day. Cardiovascular: Septic shock -source pneumonia likely but mild RV dysfunction a possible confounder. -continue NE, titrate as able. On 0.04mcg/kg/min. Continue midodrine 15mg tid -continue zosyn, day 9 of 10. Pulmonary: Acute hypoxic respiratory failure, improving. -due to pneumonia and pulmonary edema in setting of volume overload as well as pleural effusion. -intubated at OSH. Continue ventilator. On VC+ overnight. Possible extubation tomorrow. -continue Rx for pneumonia -duonebs q4h prn Pleural effusion, resolved s/p thora on 10/15. Cor Pulmonale: possible portopulmonary hypertension. -defer RHC for now. GI: Decompensated HERNANDEZ cirrhosis -MELD-Na score: 13 at 10/22/2017 11:33 AM MELD score: 13 at 10/22/2017 11:33 AM Calculated from: Serum Creatinine: 0.6 mg/dL (Rounded to 1) at 10/22/2017 11:33 AM Serum Sodium: 138 mmol/L (Rounded to 137) at 10/22/2017 11:33 AM Total Bilirubin: 1.8 mg/dL at 10/22/2017 4:46 AM INR(ratio): 1.5 at 10/22/2017 4:46 AM Age: 56 years -follow autoimmune evaluation studies. -HE continue lactulose. -EV no prior -Ascites - s/p LVP 3L 10/19, no SBP -HCC - US neg -Txp - not candidate due to poor functional status and tobacco use Tube feeds through NG -on osmolite 1.2 kcal. Goal 40cc/hr. Renal: Oliguric JENNIFER on CRRT with volume overload. -nephrology following. Suspect HRS type 1 vs less likely autoimmune process. -on CRRT. Had net neg 1.5L over past day. UF now 125cc/hr. No IVF boluses. If hypotension worsens would decrease UF. -continue octreotide gtt for 2 weeks total. EOT 10/25. Endocrine: Accuchecks Q4 hours; sliding scale for target glucose 140 - 180 I.D.: Bacterial CAP - CXR with opacity, CT w b/l GGOs and in distributive shock - Continue pip/tazo for 10 days. EOT 10/23. ?? Heme/Onc: Normocytic anemia, stable -unclear cause. Possible sepsis vs cirrhosis vs less likely DIC. No obvious bleeding. Haptoglobin normal. LDH normal so unlikely hemolytic process. CT negative for RP bleed on 10/19. -trend cbc qd. Transfuse < 7 Coagulopathy -INR 2.1 stable. Vit K given 10/19, 10/21. Thrombocytopenia, stable -down to 50-60s from 180s on admission. -HIT panel negative. Likely due to sepsis and CRRT. Transfusion Protocol Plt <??10 Lines/Drains/Tubes: PICC 10/13. Johnson 10/15. NG 10/15. ETT 10/14. LIJ 10/18 DVT ppx: heparin 5000 bid GI ppx: ppi Aspiration precautions - elevate head of bed 30 degrees. Diet:TF goal 40cc/hr Activity: danradhae at bedside PT/OT consulted Disposition: ICU Monitoring RONALDO Mac Flynn DO 10/22/2017 4:39 PM Associated attestation - Reuben Tellez MD - 10/23/2017 12:[address] [facility] Critical Care Medicine (MICU) Attending Note Date of service: 10/22/2017 The patient seen, reviewed history,examined and discussed with residents and MICU Team. I have reviewed and agree with resident note except as noted below: More awake. More calm. Edematous but improving somewhat Did ok with PSV 15/5 most of day yesterday. 56f cirrhosis, admitted to osh with resp failure and hyponatremia, developed JENNIFER and shock. Sent toSLU ? Acute encephalopathy: 2/2 sepsis and liver dz -minimize sedation -lactulose as needed -improving ? Shock: septic. Source likely lung. RV dysfunction may be contributing -goal net neg volume status -titrate pressors as needed. Ok to use low dose norepi to support fluid removal (up to 0.1 mcg/kg/min) -zosyn for pna. -paracentesis neg for SBP at osh and here -s/p steroids -high risk for candidemia. Add antifungal if becomes more unstable. ? Cor pulmonale: suspect portopulmonary hypertension although PASP not high on echo (maybe falsely low due to RV dysfunction and low cardiac output -ct chest neg for PE -defer RHC for now ?? Acute resp failure: 2/2 pna, fluid overload, ascites -continue vent support. Try PSV 12/5 today during day, PRVC at night -therapeutic paracentesis for ascites as needed, to prevent abdominal distension -abx for pna. cx here and osh neg. Stopped vanco, continue zosyn -extubate when volume status optimized. Not a good candidate for trach if unable to extubate. Couldconsider reintubating if fails, if reversible causes such as fluid overload contributing ? Jennifer: probably HRS, worsened by contrast -continue crrt -on trial of midodrine, octreotide, norepi -increase UF as able ? Cirrhosis: 2/2 HERNANDEZ -watch liver enzymes, coags -treat encephalopathy as above -high alk phos. autoimmune workup neg ? Hyponatremia: 2/2 liver dz, sepsis -limit free water -improving on CRRT ? Thrombocytopenia: probably from liver dz and sepsis -tolerating heparin sq but stop if worsens, to avoid bleeding -hit ab neg ? Hypophosphatemia: 2/2 crrt, malnutrition -replete IV as needed Active Hospital Problems Acute encephalopathy Priority: Not Prioritized [19] Date Noted: 10/19/2017 Acute respiratory failure with hypoxia Priority: Not Prioritized [19] Date Noted: 10/19/2017 JENNIFER (acute kidney injury) Priority: Not Prioritized [19] Date Noted: 10/19/2017 Liver cirrhosis secondary to HERNANDEZ Priority: Not Prioritized [19] Date Noted: 10/19/2017 Cor pulmonale (chronic) Priority: Not Prioritized [19] Date Noted: 10/19/2017 Septic shock Priority: Not Prioritized [19] Date Noted: 10/14/2017 Critical care time 34 minutes, excluding procedures Pt. is at high risk for complications and morbidity or mortality Pt. is critically ill with vital organ impairment or failure There is high probability of imminent or life threatening deterioration in the patient???s condition Time involved in the performance of separately billable procedures, teaching, reviewing education material was not counted towards critical care time. * Adelita Doty MSW - 10/22/2017 3:46 PM CDT SW continues to follow for discharge planning. Patient remains intubated, on CRRT. GUERRERO Magaña 10/22/2017 [id number] * Princess Jung, PT - 10/22/2017 3:34 PM CDT [facility] Physical Medicine and Rehabilitation PhysicalTherapy Progress Note Patient: Rosa Li [facility] Record Number: [id number] Date of : 1960 Age: 56 y.o. Co-treat with OT and RT Discharge Recommendation: Recommendation: Patient will benefit from inpatient multidisciplinary therapies Plan: Treatment/Interventions: Functional transfer training;LE strengthening/ROM;Endurance training;Bed mobility;Gait training PT Frequency: 5 Times/Week Subjective: Patient unable to verbalize around vent Patient is not ambulatory at this time. Mental Status: A&O to person, place, follows 1 step commands At start of therapy session, patient found in bed and with bilateral wrist restraints on. Pain: Patient unable to state if she has pain Weight Bearing Status: WBAT Mobility: Rolling: Maximal assist Supine to Sit:Maximal assist of 2 Sit to Supine: Maximal assist of 2 Sit to Stand: not tested 2/2 respiratory status Bed to Chair: not tested Gait: Device:bilateral frontal support Assistance: Maximal assist of 2 Distance: stood x 1 Deviations: flexed posture Oxygen Used: yes RT present to manage secretions and oxygen needs on vent. Currently on 30% Fi02 and required no change in settings. All VSS. Balance: Static Sitting: able to sit for periods with SBA, otherwise min A Dynamic sitting: poor Static Standing: poor Dynamic Standing: poor Stairs : nt Vitals: VSS, See RT note for details Activity Tolerance: Patient's activity tolerance: fair plus Treatment/therapeutic Exercise: bed mobility, transfers, sitting balance, standing balance, seated LE AROM Patient/Family Teaching: Exercise and Mobility Patient demonstrated Fair understanding of instructions given. Short Term Goals: Goal Formation With patient/family, Patient will transfer supine to/from sit With minimal assist, Patient will perform rolling With minimal assist, Patient will achieve sitting balance Fair and Patient will follow one step commands 100% ? Crepe Sole Scourer Goal(s): Patient to discharge to appropriate next level of inpatient care Update Treatment Plan: continue per POC If patient is discharged from the facility, this note serves as a discharge note if further physical therapy visits did not occur. Following therapy session, patient left in bed, with call light within reach, with family in room, with RN in room and bilateral wrist restraints on. Princess Jung, PT 10/22/2017 * Khadijah Bradshaw, RD/LD - 10/22/2017 1:40 PM CDT Nutrition Re-Assessment Nutrition Recommendations: Change TFs in order to meet protein needs. TF recs: Vital HP at goal rate 50 ml/hr. Provides 1200 kcal, 105 gm protein, and 1003 ml free water. + FWF 100 ml TID (total free water = 1303 ml) Comments: Pt remains on the vent. Pt is tolerating TFs without residuals. Current TF order [id number] kcal, 65 gm protein. This does not meet protein requirements. Pt is on CRRT. Rectal tube = 400ml output. Possible extubation soon. Assessment: Med/Surg History and Clinical Diagnoses: HPI: septic shock, resp failure; PMH: HERNANDEZ cirrhosis, ascites Diet order accuracy Current diet order: NPO Current tube feeding order: Osmolite 1.2 at 40 ml/hr + Beneprotein BID Nutrition recommendation: alter/change nutrition order P.O.Intake for the past 48 hrs:No Data Recorded GI Concerns: None Chewing/Swallowing: Mechanically Altered (vent) Admission weight: Weight: 100 lb 12 oz (45.7 kg) (10/14/17 2154) Filed Wts: 10/18/17 0500 10/20/17 0500 10/21/17 0349 10/22/17 0400 Weight: 112 lb 7 oz (51 kg) 112 lb 8 oz (51 kg) 114 lb 3.2 oz (51.8 kg) 112 lb 3.2 oz (50.9 kg) WT Comments: monitoring IBW/lb (Calculated) Female: 100 Laboratory values reviewed. Medications noted: insulin, lactulose, norepinephrine, ppi Skin/Wound: PU - coccyx; wound to Lt arm, Rt hip Estimated Energy Needs: KCAL: 1125 (Juvenal State Equation), vent Protein (g): 102-127 (2-2.5 gm/kg), CRRT, wounds Fluid (ml):6358-2331 (25-30 ml/kg) Needs based on: [facility] Recommended Access Route: TF Nutrition Care Process (1) Nutrition Diagnostic Statement: Swallowing difficulty related to:: mechanical ventilation as evidenced by:: --- (intubation.) Nutrition Diagnostic Statement Progress: Nutrition problem continues Nutrition Intervention: Enteral nutrition: Monitoring: TF tolerance, labs, weight, BM Evaluation: Nutrition Goal: Enteral/Parenteral Nutrition prescription will be consistent with estimated nutrient needs Nutrition Goal Timeframe: Ongoing Nutrition Goal Progress: Continue with current goal QUINTEN Elias * Kristine Bowens RCP - 10/22/2017 12:24 PM CDT Patient seen for bedside mobility together with PT, OT,RT Start time: 906 End time: 937 Session duration: 31 Airway and position:ETT AND VENTED Patient's vent/O2 settings during session: VENT CPAP/PSV PEEP 5, PS 12, FIO2 30% Vital signs continuously monitored during session and were as follows. Before: Heart rate - 76 Respiratory rate- 25 SpO2- 94 During: - 78 27 95 After: 82 28 96 Patient activity:sitting on EOB Patient tolerated session fair, patient had episodes of desaturation to 80%, 100% breaths given, long recovery time to raise sats to 88% Post treatment patient resting in bed * Alie Jung OT - 10/22/2017 9:06 AM CDT [facility] Physical Medicine and Rehabilitation Occupational Therapy Progress Note Patient: Rosa Li Med Record Number: [id number] Date of : 1960 Age: 56 y.o. Co-treat with PT and RT Recommendation: Patient will benefit from inpatient multidisciplinary therapies Plan: OT Frequency: 5 Times/Week Subjective: Patient nods head yes/no appropriately. present at bedside. At start of therapy session, patient found in bed and B/L UE soft wrist restraints. Pain: Patient has NAD at rest Activities of Daily Living Feeding: NT Grooming/Bathing: not tested Upper Extremity Dressing: maximal assist to manage gown during functional transfers Lower Extremity Dressing: Maximal assist don/doff socks seated EOB with extended time to complete. Patient able to initiate task, therapist held LE during task. Toileting/Transfers: not tested Mobility: Assist device: none Supine to/from Sit:Maximal assist of 2 Sit to/from Stand: Not tested Bed to/from Chair: Not tested Functional Mobility: Not tested Splint Issued/Checked: none Splint Check Completed: N/A Balance: Static Sitting: poor plus; pt demonstrates increased static sitting balance this date with max verbal cues Dynamic Sitting: poor Static Standing: not tested Dynamic Standing: not tested Activity Tolerance: RT present throughout to monitor O2 sats and RR on vent. Patient tolerates 15 minutes seated EOB. Patient's activity tolerance: fair plus Cognitive/Perceptual: Alert and oriented to self, , hospital, follows 1 step commands 100% of the time this date. Nods head yes/no appropriately. Questionable insight/safety awareness secondary todecreased ability to communicate on vent. Treatment/Therapeutic Exercise: Treatment session this date focused on ADL training Functional transfer training Endurance training Bed mobility HEP training. LE AROM x 5 reps seated EOB. Upright posture and static sitting balance activity. Patient/Family Teaching: Exercise, Mobility and Self care Equipment Issued: none Update Treatment Plan/Goals : Pt continues to benefit from skilled OT to improve independence with activities of daily living, increase strength, endurance, range of motion and decrease pain. Continue goals per POC. Short Term Goals: Cognition: 1 step commands and 100% of the time Patient will perform grooming At edge of bed and With min assist Patient will perform supine to sit With mod assist and X 1 Patient will tolerate treatment 10 minutes and with fair endurance Retirement Goal:Patient to discharge to appropriate next level of inpatient care If patient is discharged from the facility, this note serves as a discharge note if further occupational therapy visits did not occur. Following therapy session, patient left in bed, with family in room, with Elmer ALLEN aware and restraints replaced. Alie Jung OT * Yoana Lund RN - 10/22/2017 7:46 AM CDT CRRT/CVVHD NOTE: Daily supervisior visit Done. Daily support and daily therapy equipment checks done. Report received from Nurse. Equipment functioning properly. Dialysate flow = 0,8 liters per hour.UF = 200 mls per hour. Blood flow rate = 200 mls per minute. Access pressure = -52. Venous pressure = 75. BP = 118/69. L IJ CVC cath flows well. Remains intubated on ventilator. Edema present. Expiratory wheezes posteriorly. Pt sleeps. Report given to Nurse. Yoana Lund RN. * Ashlyn Phan RCP - 10/22/2017 7:31 AM CDT Problem: Mechanical Ventilation Goal: Weaning down mechanical ventilation to possible extubation today Outcome: ETT will be secured via crowley device to maintain proper tube position. ??Size ??7.0??ETT( center of mouth without skin break down)??is ??currently secured via crowley at 21??cm at teeth. No??secretions with a FAIR??gag.??Pt will be monitored for secretions and will be suctioned as needed to maintain patent airway. is on PS 15/ PEEP 5-RSBI 120. ?Sol Phan SR. OPERATIONS MANAGER/ACCS * Marylu Tellez RCP - 10/22/2017 5:25 AM CDT Daily RSBI performed during sedation interruption. Results: PS:15 and Peep: 5 RSBI: 94 HR before: 72 HR after: 80 * Lashon Stein RN - 10/21/2017 10:05 PM CDT Resetup CRRT due to cartridge life span about to finish. BFR 200 ml/min, DFR 800 ml/hr, UFR 135 ml/hr. Access functioning well. Report given to Sherlyn Patrick RN * Shanda Temple, OT - 10/21/2017 3:44 PM CDT [facility] Physical Medicine and Rehabilitation Occupational Therapy Progress Note Patient: Rosa Li [facility] Record Number: [id number] Date of : 1960 Age: 56 y.o. Co-treat with PT and RT Recommendation: Patient will benefit from inpatient multidisciplinary therapies Plan: OT Frequency: 5 Times/Week Subjective: Patient nods head yes/no appropriately. present at bedside. At start of therapy session, patient found in bed and B/L UE soft wrist restraints. Pain: Patient has NAD at rest Activities of Daily Living Feeding: NT Grooming/Bathing: not tested Upper Extremity Dressing: not tested Lower Extremity Dressing: Maximal assist don/doff socks seated EOB with extended time to complete. Patient able to initiate task, therapist held LE during task. Toileting/Transfers: not tested Mobility: Assist device: none Supine to/from Sit:Maximal assist of 2 Sit to/from Stand: Maximal assist of 2, stood for 1 minute, flexed posture Bed to/from Chair: not tested Functional Mobility: not tested Splint Issued/Checked: none Splint Check Completed: N/A Balance: Static Sitting: poor (able to maintain balance for periods of time with SBA, but mostly minimal assist) Dynamic Sitting: poor Static Standing: poor Dynamic Standing: poor Activity Tolerance: RT present throughout to monitor O2 sats and RR on vent. Patient tolerates 20 minutes seated EOB. Patient's activity tolerance: fair plus Cognitive/Perceptual: Alert, follows 1 step commands 100% of the time this date. Nods head yes/no appropriately. Questionable insight/safety awareness secondary to decreased ability to communicate onvent. Treatment/Therapeutic Exercise: Treatment session this date focused on ADL training Functional transfer training Endurance training Bed mobility HEP training. LE AROM x 5 reps seated EOB. Upright posture and static sitting balance activity. Patient/Family Teaching: Exercise, Mobility and Self care Equipment Issued: none Update Treatment Plan/Goals : Pt continues to benefit from skilled OT to improve independence with activities of daily living, increase strength, endurance, range of motion and decrease pain. Continue goals per POC. Short Term Goals: Cognition: 1 step commands and 100% of the time Patient will perform grooming At edge of bed and With min assist Patient will perform supine to sit With mod assist and X 1 Patient will tolerate treatment 10 minutes and with fair endurance Retirement Goal:Patient to discharge to appropriate next level of inpatient care If patient is discharged from the facility, this note serves as a discharge note if further occupational therapy visits did not occur. Following therapy session, patient left in bed and restraints returned. Shanda Temple OT * Ronaldo Flynn DO - 10/21/2017 3:29 PM CDT MICU Progress Note 10/21/2017 3:29 PM Hospital course: Per EMR and updated by me, Ms. iL??is a 56 y.o.??female??w/ hx of HERNANDEZ-cirrhosis c/b ascites requiring LVPs q1-2 weeks, chronic hypotension, and cholestatic obstructive disease s/p cholecystectomy is transferred from [facility] where she presented 10/11 with hyponatremia at 115, acute respiratory failure requiring intubation (10/14) and shock. At OSH LVP negative for SBP. Lg R effusion on CXR. Shock requiring PICC and pressors at OSH. Started on CTX and Flagyl. ?? Here at [facility] she continued to require levophed but titrating down, continued broad spectrum abx changed to vanc/zosyn for suspected PNA - culture negative to date so vancomycin discontinued and zosyn continued. CT PE showing no PE but b/l GGOs suggesting??infection. Thoracentesis was transudate. Admission Na was 122, and is persistently low here, but improving. Admitted with oliguric JENNIFER worseningand AGMA despite treating sepsis which was thought to be 2/2 Type 1 HRS so started on CRRT on 10/19 as well albumin, octreotide subq, midodrine and levofed to maintain MAPS>65. On 10/19 had repeat paracentesis that was negative for SBP. CRRT UF increased as tolerated. Subjective: denies pain. No issues overnight. Getting enough air on vent. Objective: Temp: [97.2 ??F (36.2 ??C)-98.2 ??F (36.8 ??C)] 97.5 ??F (36.4 ??C) Pulse: [68-90] 79 Resp: [16-29] 25 BP: (91)/(52) 91/52 Arterial Line BP #2: (86-105)/(47-67) 89/67 O2 %: [30 %] 30 % Intake/Output Summary (Last 24 hours) at 10/21/17 1529 Last data filed at 10/21/17 1400 Gross per 24 hour Intake 1642.5 ml Output 2467 ml Net -824.5 ml GEN: intubated, RASS 0. Alert. critically ill white woman. HEENT: PERRL. Sclera anicteric. CHEST: diffusely course inspiratory and expiratory sounds. HEART: RRR, Normal S1, S2. No murmurs/rubs/gallops. ABD: Soft, mild-moderate distention, normal sounds. EXT: 3+ pitting edema bilat LE to waist. NEURO: Alert nd appropriately interactive. Moving all extremities with marked generalized weakness. Data Review CBC: Recent Labs Component Name 10/21/17120110/21/1731710/20/172000 WBC 14.3* 16.3* 16.6* HGB 8.0* 8.0* 7.9* PLT 57* 62* 60* BMP: Recent Labs Component Name 10/21/17120110/21/1731710/20/17200010/14/17223809/03/17 NA 137 137 135* - - - 126* K - - - - 3.4* - 5.2* CL 106 105 103 - - - 90* CO2 23 22 24 - - - 25.0 BUN 5* 5* 5* - - - 17 CREATININE 0.6 0.7 0.7 - - - - GLU 210* 174* 289* - - - 121* - = values in this interval not displayed. Recent Labs Component Name 10/21/17120110/21/1731710/20/172000 CALCIUM 8.8 8.6 8.9 PHOS 1.5* 3.0 1.0* LFT: Recent Labs Component Name 06/07/18 1202 06/07/18 0318 10/20/17200010/20/1734010/19/17 0404 PROT - 4.7* - - 4.9* - 5.9* ALB 3.3* 3.6 3.5 - 4.1 - 5.5* ALKPHOS - 315* - - 296* - 271* AST - 37* - - 42* - 29 ALT - 13 - - 12 - 9 - = values in this interval not displayed. Coagulation: Recent Labs Component Name 10/21/17 1202 10/21/17 0318 10/20/172000 PT 19.3* 19.9* 20.3* INR 1.7 1.7 1.8 Cardiac markers: Recent Labs Component Name 08/07/17 0859 08/07/17 0142 TROPONINI <0.010 0.017 HIT panel negative P-ANCA positive 1:20 Low complement levels Phos critically low 1.0 and <0.7 ASO titers negative HIV neg DS DNA neg Acute hepatitis negative Anti GBM pending Cryo neg MARILEE neg Mitochondrial ab neg Anti MPO and PR3 ab negative SPEP - polyclonal Ig SSA SSB neg [place] lambda ratio 2.3 Assessment and Plan Neurologic: Acute encephalopathy, improving -due to sepsis, ICU delirium, and HE -off sedation currently. Minimize sedation. -lactulose for BM 2-3 per day. Cardiovascular: Septic shock -source pneumonia likely but mild RV dysfunction a possible confounder. -continue NE, titrate as able. Continue midodrine 15mg tid -continue zosyn, day 8 of 10. Pulmonary: Acute hypoxic respiratory failure, improving. -due to pneumonia and pulmonary edema in setting of volume overload as well as pleural effusion. -intubated at OSH. Continue ventilator. On VC+ overnight. Possible extubation tomorrow. -continue Rx for pneumonia -duonebs q4h prn Pleural effusion, resolved s/p thora on 10/15. Cor Pulmonale: possible portopulmonary hypertension. -defer RHC for now. GI: Decompensated HERNANDEZ cirrhosis -MELD-Na score: 14 at 10/21/2017 12:02 PM MELD score: 14 at 10/21/2017 12:02 PM Calculated from: Serum Creatinine: 0.6 mg/dL (Rounded to 1) at 10/21/2017 12:02 PM Serum Sodium: 137 mmol/L at 10/21/2017 12:02 PM Total Bilirubin: 1.4 mg/dL at 10/21/2017 3:18 AM INR(ratio): 1.7 at 10/21/2017 12:02 PM Age: 56 years -follow autoimmune evaluation studies. -HE continue lactulose. -EV no prior -Ascites - s/p LVP 3L 10/19, no SBP -HCC - US neg -Txp - not candidate due to poor functional status and tobacco use Tube feeds through NG -on osmolite 1.2 kcal. Goal 50cc/hr. Renal: Oliguric JENNIFER on CRRT with volume overload. -nephrology following. Suspect HRS type 1 vs less likely autoimmune process. -on CRRT. Increase UF as tolerated. Up to 200cc/hr. Currently not tolerating beyond 135cc/hr. No IVF boluses. If hypotension worsens would decrease UF. Endocrine: Accuchecks Q4 hours; sliding scale for target glucose 140 - 180 I.D.: Bacterial CAP - CXR with opacity, CT w b/l GGOs and in distributive shock - Continue pip/tazo for 10 days. Day 8currently. EOT 10/23. ?? Heme/Onc: Normocytic anemia, stable -unclear cause. Possible sepsis vs cirrhosis vs less likely DIC. No obvious bleeding. Haptoglobin normal. LDH normal so unlikely hemolytic process. CT negative for RP bleed on 10/19. -trend cbc qd. Transfuse < 7 Coagulopathy -INR 2.1 stable. Vit K given 10/19, repeat dose today. Thrombocytopenia, worsening. -down to 50-60s from 180s on admission. -HIT panel negative. Likely due to sepsis Transfusion Protocol Plt <??10 Lines/Drains/Tubes: PICC 10/13. Johnson 10/15. NG 10/15. ETT 10/14. LIJ 10/18 DVT ppx: heparin 5000 bid GI ppx: ppi Aspiration precautions - elevate head of bed 30 degrees. Diet:TF goal 50cc/hr Activity: dangle at bedside PT/OT consulted Disposition: ICU Monitoring RONALDO Martinez DO Rina 10/21/2017 3:29 PM Associated attestation - Reuben Tellez MD - 10/23/2017 12:[address] [facility] Critical Care Medicine (MICU) Attending Note Date of service: 10/21/2017 The patient seen, reviewed history,examined and discussed with residents and MICU Team. I have reviewed and agree with resident note except as noted below: Tolerating crrt with midodrine and norepi, fluid removal More awake Still edematous -continue vent support -tube feeds -PT/OT. Up to side of bed -abx for pna Plan extubation when resp status optimized Active Hospital Problems Acute encephalopathy Priority: Not Prioritized [19] Date Noted: 10/19/2017 Acute respiratory failure with hypoxia Priority: Not Prioritized [19] Date Noted: 10/19/2017 JENNIFER (acute kidney injury) Priority: Not Prioritized [19] Date Noted: 10/19/2017 Liver cirrhosis secondary to HERNANDEZ Priority: Not Prioritized [19] Date Noted: 10/19/2017 Cor pulmonale (chronic) Priority: Not Prioritized [19] Date Noted: 10/19/2017 Septic shock Priority: Not Prioritized [19] Date Noted: 10/14/2017 Critical care time 31 minutes, excluding procedures Pt. is at high risk for complications and morbidity or mortality Pt. is critically ill with vital organ impairment or failure There is high probability of imminent or life threatening deterioration in the patient???s condition Time involved in the performance of separately billable procedures, teaching, reviewing education material was not counted towards critical care time. * Juvenal Connor RCP - 10/21/2017 10:05 AM CDT Patient seen for bedside mobility together with OT PT Start time: 1005 End time: 1035 Session duration: 30 Airway and position: Size 7 ,23 at lip Patient's vent/O2 settings during session: A/C 14 VT 400 Peep5 30% Vital signs continuously monitored during session and were as follows. Before: Heart rate - 81 Respiratory rate- 25 SpO2- 99 During: - 88 33 N/A on 100% breaths After: 84 28 100 back on 30% Patient activity: Assisted to sit and stand at bedside Patient tolerated session well Post treatment patient resting well in bed * Princess Jung, PT - 10/21/2017 10:00 AM CDT [facility] Physical Medicine and Rehabilitation PhysicalTherapy Progress Note Patient: Rosa Li [facility] Record Number: [id number] Date of : 1960 Age: 56 y.o. Co-treat with OT and RT Discharge Recommendation: Recommendation: Patient will benefit from inpatient multidisciplinary therapies Plan: Treatment/Interventions: Functional transfer training;LE strengthening/ROM;Endurance training;Bed mobility;Gait training PT Frequency: 5 Times/Week Subjective: Patient unable to verbalize around vent Patient is not ambulatory at this time. Mental Status: A&O to person, place, follows 1 step commands At start of therapy session, patient found in bed and with bilateral wrist restraints on. Pain: Patient unable to state if she has pain Weight Bearing Status: WBAT Mobility: Rolling: Maximal assist Supine to Sit:Maximal assist of 2 Sit to Supine: Maximal assist of 2 Sit to Stand:Maximal assist of 2 Bed to Chair: not tested Gait: Device:bilateral frontal support Assistance: Maximal assist of 2 Distance: stood x 1 Deviations: flexed posture Oxygen Used: yes RT present to manage secretions and oxygen needs on vent. Currently on 30% Fi02 and required no change in settings. All VSS. Balance: Static Sitting: able to sit for periods with SBA, otherwise min A Dynamic sitting: poor Static Standing: poor Dynamic Standing: poor Stairs : nt Vitals: VSS Activity Tolerance: Patient's activity tolerance: fair plus Treatment/therapeutic Exercise: bed mobility, transfers, sitting balance, standing balance, seated LE AROM Patient/Family Teaching: Exercise and Mobility Patient demonstrated Fair understanding of instructions given. Short Term Goals: Goal Formation With patient/family, Patient will transfer supine to/from sit With minimal assist, Patient will perform rolling With minimal assist, Patient will achieve sitting balance Fair and Patient will follow one step commands 100% ? Retirement Goal(s): Patient to discharge to appropriate next level of inpatient care Update Treatment Plan: continue per POC If patient is discharged from the facility, this note serves as a discharge note if further physical therapy visits did not occur. Following therapy session, patient left in bed, with call light within reach, with family in room, with RN in room and bilateral wrist restraints on. Princess Jung, PT 10/21/2017 * Lashon Stein RN - 10/21/2017 8:15 AM CDT CRRT check completed by Ngoc Pennington RN. System within all parameters. DFR 2000 ml/hr, BFR 200 ml/hr, UFR 125 ml/hr. * Lashon Stein RN - 10/21/2017 7:55 AM CDT CRRT daily check completed by Ngoc Pennington RN. System functioning within all parameters. DFR 1000 ml/hr, BFR 200 ml/min, UFR 100 ml/hr. * Garrett Hercules - 10/21/2017 1:00 AM CDT Clifton Tucker and Dolores visited with patient and family. Offered prayer. Reminded family they were held in our prayers and pastoral care was available when they needed it. [id number] Garrett Hercules 10/21/2017 1:02 AM 10/20/171999 Visit Type Assessment Date 10/20/17 Wharf Tally Clerk Visiting Patient Maggi Pastoral Care Visit Type Follow Up Encounter Type Patient and Family * Clovis Pena - 10/20/2017 3:56 PM CDT Wharf Tally Clerk prayed with patient and was present. Patient was not able to communicate. 10/20/17 1556 Visit Type Assessment Date 10/20/17 Wharf Tally Clerk Visiting Patient Jean Pastoral Care Visit Type Follow Up Encounter Type Patient * Shanda Temple OT - 10/20/2017 3:41 PM CDT [facility] Department of Physical Medicine & Rehabilitation Progress Note Patient: Rosa Li [facility] Record Number: [id number] Date of : 1960 Age: 56 y.o. 10/20/17 1500 PERME Score Alertness 2 Follow Commands 1 Mechanical or Noninvasive Ventilation 0 Pain 0 LDAs or Devices 0 Intravenous Infusions 0 Functional Strength: Right Arm 1 Functional Strength: Left Arm 1 Functional Strength: Right Leg 0 Functional Strength: Left Leg 0 Bed Moblitity: Supine to Sit 1 Bed Mobility: Static Sitting 1 Transfers: Sit to Stand 0 Transfers: Static Standing 0 Transfers: Bed to Chair 0 Gait 0 Endurance 0 PERME Score 7 * Ronaldo Flynn DO - 10/20/2017 3:29 PM CDT MICU Progress Note 10/20/2017 3:30 PM Hospital course: Per EMR and updated by me, Ms. Li??is a 56 y.o.??female??w/ hx of HERNANDEZ-cirrhosis c/b ascites requiring LVPs q1-2 weeks, chronic hypotension, and cholestatic obstructive disease s/p cholecystectomy is transferred from [facility] where she presented 10/11 with hyponatremia at 115, acute respiratory failure requiring intubation (10/14) and shock. At OSH LVP negative for SBP. Lg R effusion on CXR. Shock requiring PICC and pressors at OSH. Started on CTX and Flagyl. ?? Here at [facility] she continued to require levophed but titrating down, continued broad spectrum abx changed to vanc/zosyn for suspected PNA - culture negative to date so vancomycin discontinued and zosyn continued. CT PE showing no PE but b/l GGOs suggesting??infection. Thoracentesis was transudate. Admission Na was 122, and is persistently low here, but improving. Admitted with oliguric JENNIFER worseningand AGMA despite treating sepsis which was thought to be 2/2 Type 1 HRS so started on CRRT on 10/19 as well albumin, octreotide subq, midodrine and levofed to maintain MAPS>65. On 10/19 had repeat paracentesis that was negative for SBP. CRRT UF increased as tolerated. Subjective: No acute issues overnight. Denies pain. Alert and responding appropriately. Mild respiratory secretions continue. Objective: Temp: [94.7 ??F (34.8 ??C)-97.4 ??F (36.3 ??C)] 94.7 ??F (34.8 ??C) Pulse: [68-92] 81 Resp: [15-28] 22 BP: (71-138)/(54-119) 132/65 Arterial Line BP #2: (68-114)/(45-62) 84/45 O2 %: [60 %-70 %] 70 % Intake/Output Summary (Last 24 hours) at 10/20/17 1530 Last data filed at 10/20/17 1423 Gross per 24 hour Intake 1274 ml Output 319 ml Net 955 ml GEN: intubated, RASS 0. Alert. critically ill white woman. HEENT: PERRL. Sclera anicteric. NECK: no JVD CHEST: diffusely course inspiratory and expiratory sounds. HEART: RRR, Normal S1, S2. No murmurs/rubs/gallops. ABD: Soft, mild-moderate distention, normal sounds. EXT: 3+ pitting edema bilat LE to waist. NEURO: Alert nd appropriately interactive. Moving all extremities with marked generalized weakness. Data Review CBC: Recent Labs Component Name 10/20/17 1159 10/20/17 03410/19/172048 WBC 14.2* 17.6* 18.8* HGB 7.7* 8.5* 9.0* PLT 54* 69* 68* BMP: Recent Labs Component Name 10/20/17 1159 10/20/17 0341 10/19/17204810/14/179 09/03/17 NA 135* 136 135* - - - 126* K - - - - 3.4* - 5.2* CL 102 103 102 - - - 90* CO2 26 21* 19* - - - 25.0 BUN 6* 7 8 - - - 17 CREATININE 0.7 0.8 1.0 - - - - GLU 239* 234* 187* - - - 121* - = values in this interval not displayed. Recent Labs Component Name 10/20/17 1159 10/20/17 0341 10/19/17 204 CALCIUM 9.0 8.9 9.0 PHOS <0.7* 1.0* 1.1* LFT: Recent Labs Component Name 10/20/17 1159 10/20/17 0341 10/19/17 2049 10/19/17 0404 10/18/17 1354 10/18/17 0434 PROT - 4.9* - - 5.9* - 4.4* 4.6* ALB 3.8 4.1 4.3 - 5.5* - - 3.5 ALKPHOS - 296* - - 271* - - 461* AST - 42* - - 29 - - 41* ALT - 12 - - 9 - - 15 - = values in this interval not displayed. Coagulation: Recent Labs Component Name 10/20/17 1159 10/20/17 0341 10/19/172048 PT 23.2* 23.4* 23.7* INR 2.1 2.1 2.1 Cardiac markers: Recent Labs Component Name 08/07/17 0859 08/07/17 0142 TROPONINI <0.010 0.017 HIT panel negative P-ANCA positive 1:20 Low complement levels Phos critically low 1.0 and <0.7 ASO titers negative HIV neg Acute hepatitis negative MARILEE pending Anti GBM pending Cryo pending Assessment and Plan Neurologic: Acute encephalopathy, improving -due to sepsis, ICU delirium, and HE -off sedation currently. Minimize sedation. -lactulose for BM 2-3 per day. Cardiovascular: Septic shock -source pneumonia likely but mild RV dysfunction a possible confounder. -continue NE, titrate as able. Continue midodrine 15mg tid -continue zosyn, day 7 of 10. Pulmonary: Acute hypoxic respiratory failure, improving. -due to pneumonia and pulmonary edema in setting of volume overload as well as pleural effusion. -intubated at OSH. Continue ventilator. On VAC 400/12/40%/5. Possible extubation in next 3-5 days. -continue Rx for pneumonia -duonebs q4h prn Pleural effusion, resolved s/p thora on 10/15. Cor Pulmonale: possible portopulmonary hypertension. -defer RHC for now. GI: Decompensated HERNANDEZ cirrhosis -MELD-Na score: 19 at 10/20/2017 11:59 AM MELD score: 17 at 10/20/2017 11:59 AM Calculated from: Serum Creatinine: 0.7 mg/dL (Rounded to 1) at 10/20/2017 11:59 AM Serum Sodium: 135 mmol/L at 10/20/2017 11:59 AM Total Bilirubin: 2.0 mg/dL at 10/20/2017 3:41 AM INR(ratio): 2.1 at 10/20/2017 11:59 AM Age: 56 years -follow autoimmune evaluation studies. -HE continue lactulose. -EV no prior -Ascites - s/p LVP 3L yesterday, no SBP -HCC - US neg -Txp - not candidate due to poor functional status and tobacco use Tube feeds through NG -on osmolite 1.5 kcal. Goal 50cc/hr. Renal: Oliguric JENNIFER on CRRT with volume overload. -nephrology following. Suspect HRS type 1 vs less likely autoimmune process. -Follow AI labs: MARILEE, Anti-DS DNA, Anti-Hahn Ab, SS-A and SS-B Antibodies, Hepatitis panel, HIV, ASO titers, Anti-GBM, Complement levels, Cryoglubulins, SPEP and UPEP, Serum light chain ratio, ACNA titers -on CRRT. Increase UF as tolerated. No IVF boluses. If hypotension worsens would decrease UF. Endocrine: Accuchecks Q4 hours; sliding scale for target glucose 140 - 180 I.D.: Bacterial CAP - CXR with opacity, CT w b/l GGOs and in distributive shock - Continue pip/tazo for 10 days. Day 7 currently. EOT 10/23. ?? Heme/Onc: Normocytic anemia, worsening. -unclear cause. Possible sepsis vs cirrhosis vs less likely DIC. No obvious bleeding. Haptoglobin normal. LDH normal so unlikely hemolytic process. CT negative for RP bleed on 10/19. -trend cbc q8h. Transfuse < 7 Coagulopathy -INR 2.1 stable. Vit K given 10/19 Thrombocytopenia, worsening. -down to 50-60s from 180s on admission. -HIT panel negative. Likely due to sepsis Transfusion Protocol Plt <??10 Lines/Drains/Tubes: PICC 10/13. Johnson 10/15. NG 10/15. ETT 5/31. LIJ 10/18 DVT ppx: SCDs GI ppx: ppi Aspiration precautions - elevate head of bed 30 degrees. Diet:TF goal 50cc/hr Activity: dangle at bedside PT/OT consulted Disposition: ICU Monitoring RONALDO FlynnDO 10/20/2017 3:30 PM Associated attestation - Reuben Tellez MD - 10/23/2017 12:[address] [facility] Critical Care Medicine (MICU) Attending Note Date of service: 10/20/2017 The patient seen, reviewed history,examined and discussed with residents and MICU Team. I have reviewed and agree with resident note except as noted below: Still edematous Awake but encephalopathic cx remain neg Continue crrt Increase uf as tolerated Continue pressors to support net neg volume status abx for pna Abdominal distension improved with paracentesis; no signs of peritonitis Plan extubation when resp status optimized. Likely no reintubation Active Hospital Problems Acute encephalopathy Priority: Not Prioritized [19] Date Noted: 10/19/2017 Acute respiratory failure with hypoxia Priority: Not Prioritized [19] Date Noted: 10/19/2017 JENNIFER (acute kidney injury) Priority: Not Prioritized [19] Date Noted: 10/19/2017 Liver cirrhosis secondary to HERNANDEZ Priority: Not Prioritized [19] Date Noted: 10/19/2017 Cor pulmonale (chronic) Priority: Not Prioritized [19] Date Noted: 10/19/2017 Septic shock Priority: Not Prioritized [19] Date Noted: 10/14/2017 Critical care time 34 minutes, excluding procedures Pt. is at high risk for complications and morbidity or mortality Pt. is critically ill with vital organ impairment or failure There is high probability of imminent or life threatening deterioration in the patient???s condition Time involved in the performance of separately billable procedures, teaching, reviewing education material was not counted towards critical care time. * Shanda Temple OT - 10/20/2017 3:29 PM CDT [facility] Physical Medicine and Rehabilitation Occupational Therapy Initial Evaluation Note Patient: Rosa Li Med Record Number: [id number] Date of : 1960 Age: 56 y.o. Recommendation: Patient will benefit from inpatient multidisciplinary therapies Plan: OT Frequency: 5 Times/Week Physician Orders: Evaluation and Treat DIAGNOSIS: Patient Active Problem List Diagnosis ??? Other ascites ??? Fatty (change of) liver, not elsewhere classified ??? Hypo-osmolality and hyponatremia ??? Septic shock ??? Acute encephalopathy ??? Acute respiratory failure with hypoxia ??? JENNIFER (acute kidney injury) ??? Liver cirrhosis secondary to HERNANDEZ ??? Cor pulmonale (chronic) No past medical history on file. SUBJECTIVE / PATIENT GOALS: Patient is intubated and unable to provide subjective history. Daughterand at bedside to provide history. Home living: Type of Residence: Private Residence Lives with:: Spouse Equipment At Home: Cane-Straight;Walker-4 Wheeled with Seat Prior Function: Mobility: Ambulate-In Home At start of therapy session, patient found in bed. Pain: Patient inconsistent at times with yes/no head nodding. NAD with mobility. Follow-up for pain: No follow-up for pain indicated and patient agreed to proceed with treatment OBJECTIVE: General Appearance: 56 year old female supine in NAD with B/L UE soft wrist restraints Precautions: IV's: Peripheral line, Central line and Arterial line, Catheter, NG/Dobbhoff, Rectal bag, Ventilator and CRRT Edema: None noted Vital Signs:RT present throughout treatment to monitor O2 sats and vent settings. Suctioning provided as needed while seated EOB. Pre-activity BP: HR: 78 O2 SAT: 100% vent L 02 Room air Peak activity BP: HR: O2 SAT: L 02 Room air Post cool down BP: HR: O2 SAT: L 02 Room air Cognitive: Alert to name. Nods head yes/no. Gestures to communicate. Follows 1 step commands 75-100% of the time with tactile/verbal cues. Patient recognizes family members at bedside. Questionable insight/safety awareness. Perceptual: Wearing glasses- appears intact Upper extremity range of motion: B/L UE AAROM WFL Upper extremity strength: B/L UE at least 3-/5 with poor+ B/L founder and chief executive officer strength, moving B/L UE against gravity Tone: Normal Coordination: NT Sensation: NT Patient's activity tolerance: fair minus Comments: Tolerates 15 minutes seated EOB this date for static sitting balance, upright positioning FUNCTIONAL MOBILITY Not tested Independent Stand by Assist Minimal Moderate Maximum Dependent Rolling x Supine to/from sit X 2 Sit to/from Standing x Bed to/from chair x Patient requiring moderate/maximal assist for static sitting balance, not appropriate to attempt standing this date Balance: Static Sitting: poor Dynamic Sitting: poor Static Standing: not tested Dynamic Standing: not tested Feeding: NT Self-Care: Maximal/engk-hjlx-wwet assist to comb hair using R UE seated EOB (support provided proximally), patient able to initiate movement. Maximal assist wipe mouth with washcloth using R UE General Observation: Patient tolerates treatment well. Supportive family present at bedside throughout. Splint Issued/Checked: none TREATMENT / EDUCATION / EVALUATION: Purpose of Occupational Therapy evaluation explained. While performing mobility, exercise and self care, Patient and spouse and daugther was instructed in: Functional mobility training/weight bearing status, Cognitive retraining, Safety awareness/fall precaution, Home exercise program, Discharge plan and Self care training Presented to patient who demonstrates Questionable understanding of instructions given. Family withgood understanding. INFORMED CONSENT TO TREATMENT: Plan of care including recommended therapy, goals and frequency, as well as potential risks and benefits of treatment/assessment explained to patient. Patient/Family understands and agrees to proceed. ASSESSMENT: Functional performance limited due to: limited activities of daily living, decreased mobility, decreased cognition, upper extremity function, endurance and decreased safety awareness and Patient continues to benefit from skilled Occupational Therapy to achieve the following functional goals. Nurse and PT (co-evaluation) contacted regarding patient status and/or discharge plan. Short Term Goals: Cognition: 1 step commands and 100% of the time Patient will perform grooming At edge of bed and With min assist Patient will perform supine to sit With mod assist and X 1 Patient will tolerate treatment 10 minutes and with fair endurance Retirement Goal: Patient to discharge to appropriate next level of inpatient care Plan: OT Frequency: 5 Times/Week If patient is discharged from the facility, this note serves as a discharge summary if further occupational therapy visits did not occur. Following therapy session, patient left in bed and restraints returned, family at bedside. Shanda Temple OT 10/20/2017 * Alejo Agustin MD - 10/20/2017 1:29 PM CDT PT NAME : Rosa Li PT Date of admit : 10/14/2017 8:26 PM Rosa Li??is a 56 y.o.??female??with a ??hx of HERNANDEZ cirrhosis (from cholestatic obstructivedisease s/p cholecystectomy 01/2017)??complicated by ascites and hypotension. Patient was transferred from OSH on 10/11 with fatigue, SOB and sepsis, presumably secondary to pneumonia; ??hyponatremia and JENNIFER (BL Cr 0.8). Patient has been receiving pressors and mechanical ventilation. Initial workup:Imaging of kidneys (limited abdominal US , Rt kidney with increased echogenicity but no hydronephrosis)- upper part of left kidney appears normal on chest CT- Urine Na <??20, UA suggestive of UTI. TTE 05/2017, EF 55%? SUBJECTIVE/ 24 hr Events: Continues on CVVHD. Patient responds to voice Patient on low vasopressors Paracentesis performed today with removal of 600 ml of fluid OBJECTIVE: VITALS: Vitals: 10/20/17 10/20/17 10/20/17 10/20/17 1100 1200 1253 1300 BP: 132/65 Pulse: 76 68 70 74 Resp: 21 16 17 Temp: (!) 94.7 ??F (34.8 ??C) SpO2: 94% 96% 97% 97% Weight: Estimated body mass index is 21.97 kg/(m^2) as calculated from the following: Height as of this encounter: 1.524 m (5'). Weight as of this encounter: 51 kg (112 lb 8 oz). I/O: Intake/Output Summary (Last 24 hours) at 10/20/17 1329 Last data filed at 10/20/17 1100 Gross per 24 hour Intake 1424 ml Output 319 ml Net 1105 ml PHYSICAL EXAM: / Vent: Fi)2 40%, Peep 5. BP 146/81 General: ??female, lying in bed, intubated, on mechanical ventilation, NAD. HEENT: NT/NC, MMM. Neck: no JVD, no LAD, no thyromegaly. Respiratory: lungs clear bilaterally, no crackles/wheezes. Decreased respiratory sounds in right base CVS: RRR, S1 S2 heard, no murmurs. Abdomen: Soft, Non-tender, non-distended, abdomen wall edema, bowel sounds audible. Musculoskeletal: ??No joint swelling. 1+??pedal edema. Neuro: Responsive, conscious, non focal Skin: no rash, no cyanosis LAB: Recent Labs Component Name 10/20/17 1159 10/20/17 0341 10/19/17204810/19/17 1234 10/19/17 0454 10/19/17 0404 10/18/17 0434 HGB 7.7* 8.5* 9.0* 8.6* 6.5* 6.1* 9.4* WBC 14.2* 17.6* 18.8* 16.7* 12.8* 11.5* 13.7* PLT 54* 69* 68* 60* 54* 54* 87* HCT 21.4* 23.3* 25.1* 23.9* 17.9* 17.1* 25.5* MCV 85.6 84.7 85.4 86.0 87.7 86.4 85.3 PT 23.2* 23.4* 23.7* - - 24.9* 19.5* INR 2.1 2.1 2.1 - - 2.3 1.7 Recent Labs Component Name 10/20/17 1159 10/20/17 0341 10/19/17204810/19/17 1234 10/19/17 0404 10/18/17 2137 10/14/17 2239 BUN 6* 7 8 11 14 17 - - CREATININE 0.7 0.8 1.0 1.2 1.4* 1.7* - - NA 135* 136 135* 132* 131* 128* - - K - - - - - - - 3.4* CL 102 103 102 100 97* 97* - - CO2 26 21* 19* 18* 14* 14* - - CALCIUM 9.0 8.9 9.0 9.3 9.7 9.6 - - GLU 239* 234* 187* 201* 186* 162* - - PHOS <0.7* 1.0* 1.1* 1.3* - 2.0* - - - = values in this interval not displayed. Recent Labs Component Name 10/20/17 1159 10/20/17 0341 10/19/17204810/19/17 1234 10/19/17 0404 10/18/17 0434 10/17/17 0419 10/16/17 0351 ALB 3.8 4.1 4.3 4.8 5.5* - 3.5 3.0* 3.5 TBILI - 2.0* - - 1.4* - 1.2 1.9* 1.8* ALT - 12 - - 9 - 15 16 15 AST - 42* - - 29 - 41* 53* 59* - = values in this interval not displayed. 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 ? #??Liver cirrhosis with ascites. Patient apparently no candidate for liver transplant ? -# Hyponatremia in the setting of JENNIFER + cirrhosis. Improved ? # Metabolic acidosis ? # Thrombocytopenia ? -# Pneumonia with septic shock ? Recommendations/Plan: - Will continue CRRT, will decrease dialysate flow to 1.) L as patient is hypophosphatemic. Will attempt to increase UF up to 125 (range 75 to 125) Patient seen and examined at the bedside, plan of care discussed with the attending, Dr. Hidalgo We will continue to follow the patient with you. Please do not hesitate to contact us with further questions. Alejo Alejo MD. Nephrology Fellow. # [phone].?? * Francia Hernandez RN - 10/20/2017 1:21 PM CDT CRRT/CVVHD monitoring note:Nurse Tata Ortega reports no problems. Alisha Bianca 4 K/ 2.5 Ca in 5000ml bag infusing at 1 liter, BFR 200 ml/hr and UF 75 ml/hr. Access used: Left IJ non tunneled HD catheter. Nx Stage machine # [id number]/fluid warmer [id number]. * Juvenal Connor RCP - 10/20/2017 10:25 AM CDT Patient seen for bedside mobility together with OT PT Start time: 1025 End time: 1050 Session duration: 25 Airway and position: size 7 ,21 at lip Patient's vent/O2 settings during session: A/C 12 VT 400 Peep 8 40% Vital signs continuously monitored during session and were as follows. Before: Heart rate - 72 Respiratory rate- 15 SpO2- 100 During: - 77 26 n/a on 100% breaths After: 70 22 100 on 40% Patient activity: Assisted to sit at bedside Patient tolerated session well Post treatment patient Resting well in bed * Princess Jung PT - 10/20/2017 10:16 AM CDT [facility] Physical Medicine and Rehabilitation PhysicalTherapy Initial Evaluation Note Patient: Rosa Li Med Record Number: [id number] Date of : 1960 Age: 56 y.o. Co-eval with OT And RT Recommendation: PT Frequency: 5 Times/Week Treatment/Interventions: Functional transfer training;LE strengthening/ROM;Endurance training;Bed mobility;Gait training Recommendation: Patient will benefit from inpatient multidisciplinary therapies Patient is not ambulatory at this time. Nurse contacted regarding patient status and/or discharge plan. Physician Orders: Evaluation and Treat PRECAUTIONS: Fall and Isolation Activity Level dangle at bedside DIAGNOSIS: Patient Active Problem List Diagnosis ??? Other ascites ??? Fatty (change of) liver, not elsewhere classified ??? Hypo-osmolality and hyponatremia ??? Septic shock ??? Acute encephalopathy ??? Acute respiratory failure with hypoxia ??? JENNIFER (acute kidney injury) ??? Liver cirrhosis secondary to HERNANDEZ ??? Cor pulmonale (chronic) No past medical history on file. SUBJECTIVE: Patient intubated, attempts to verbalize around tube at times. PATIENT GOALS: none stated Home living: Type of Residence: Private Residence Lives with:: Spouse Prior Function: Mobility: Ambulate-In Home At start of therapy session, patient found in bed and with bilateral wrist restraints Pain: Patient reports pain, does not rate Follow-up for pain: No follow-up for pain indicated and patient agreed to proceed with treatment OBJECTIVE: General Appearance: 56 yo female, NAD, intubated Precautions: IV's: Peripheral line and Central line, Catheter, Ventilator and CRRT Skin, Incisions, Edema: Multiple bruises noted Other: Vital Signs:(*Assess the 3 levels of oxygen saturations both for room air and 02 unless rest on room air is 88% or less). Rest: BP: HR: O2 SAT: L 02 Room air Post Ex/gait: BP: HR: O2 SAT: L 02 Room air Post cool down BP: HR: O2 SAT: L 02 Room air Observations:RT present to manage secretions and oxygen needs on vent. Currently on 40% Fi02 and required no change in settings. All VSS. MENTAL STATUS: Alert to name DIRECTION FOLLOWING: Able to follow 1 step commands 75-100 % ROM: wfl STRENGTH: Grossly 4-/5 FUNCTIONAL MOBILITY Not Tested Not Applicable Independent Stand by Assist Minimal Moderate Maximum Dependent Rolling x Scooting Of 2 Supine to/from sit Of 2 Sit to/from Stand x Bed to/ chair x Observation: BALANCE: Sitting Static: poor Dynamic: poor Standing Static: not tested Dynamic: not tested Observation: GAIT: Non-ambulatory ACTIVITY TOLERANCE: Patient's activity tolerance: poor TREATMENT : evaluation, bed mobility training, transfer training, balance activities and monitoringof vitals EDUCATION: While performing PT, Patient and spouse was instructed in:Functional mobility training/weight bearing status, Safety awareness/fall precaution and Discharge plan Patient demonstrated Questionable understanding of instructions given. INFORMED CONSENT TO TREATMENT: Plan of care including recommended therapy, goals and frequency, discussed with patient who understands and agrees to proceed. ASSESSMENT: Patient's functional performance presently limited due to: pain, medical condition, strength, endurance, bed mobility, transfers, safety awareness, balance and cognition and Patient would benefit from additional Physical Therapy to achieve the following functional goals to enhance independence. Short Term Goals: Goal Formation With patient/family, Patient will transfer supine to/from sit With minimal assist, Patient will perform rolling With minimal assist, Patient will achieve sitting balance Fair and Patient will follow one step commands 100% Retirement Goal(s): Patient to discharge to appropriate next level of inpatient care Equipment Issued: none Plan: If patient is discharged from the facility, this note serves as a discharge summary if further physical therapy visits did not occur. Following therapy session, patient left in bed, with call light within reach, with family in room and with bilateral wrist restraints on Princess Jung PT 10/20/2017 * Judith Mathis - 10/20/2017 8:14 AM CDT Wharf Tally Clerk referred by healthcare sales representative for visit to family at 's request. Wharf Tally Clerk met with Ralph, daughter Arielle, son Oscar and pt was awake throughout most of visit, attempting to communicate by writing and cue board. Wharf Tally Clerk spent much time providing listening support, particularly to Ralph, who shared his fear for pt's decline and that if she goes, I go, saying he cannot live without his . Pt was trying to communicate something but we were not successful in being able to assist her in finishing her thought: she was able to write or spell out I am and no but nothing further. At family's request, I provided prayer at bedside with all gathered around pt; prayers were for healing and blessings for pt and family. Wharf Tally Clerk was present for family meeting in room with Dr. Tellez and they all expressed understanding following the meeting that the plan is to give pt a fewdays to see if she improves, and if there is no improvement to discuss again goals of care and whatwould be acceptable to pt. Family agreed that pt is not able to make decisions herself right now and they will decide together for her. I spent time with son Oscar after meeting, who was tearful and shared his worries not just for his mother, but for his father as well. I assured all of them of the availability of pastoral care at any time needed and my plans to follow up and keep them in prayer. * Ashlyn Edwards RCP - 10/20/2017 3:16 AM CDT 10/20/17 0314 Ventilation Liberation Ventilation liberation initiated by BILINGUAL CALL CENTER REPRESENTATIVE Ventilation Liberation Times Ventilation Liberation Time ON 0230 Ventilation Liberation Time OFF 0245 Ventilation liberation 1 minute screen PSV Setting 10 Additional Vent Settings CPAP 5 Ventilation Liberation1 Min Resp Rate 31 Ventilation liberation 2 minute screen Accessory muscle use, nasal flaring, dyspnea? No SpO2 less than 92% ? Yes Ventilation Liberation 2 Min SpO2 value 91 Resp Rate 8/Min or less? No (record) Ventilation Liberation 2 Min Resp Rate 30 Comments Passed Ventilation Liberation? No Ventilation Liberation Comments [id number] * Tyree Linares MD - 10/19/2017 5:04 PM CDT MICU PROGRESS NOTE Admit Date: 10/14/2017 Progress note HPI: Per EMR, Ms. Li is a 56 y.o. female w/ hx of HERNANDEZ-cirrhosis c/b ascites requiring LVPs q1-2 weeks, chronic hypotension, and cholestatic obstructive disease s/p cholecystectomy is transferred from [facility] with hyponatremia at 115, acute respiratory failure and shock. At OSH LVP negative for SBP. Lg R effusion on CXR. Shock requiring PICC and pressors at OSH. Started on CTX and Flagyl. ?? Here at [facility] she continued to require levophed but titrating down, continued broad spectrum abx changed to vanc/zosyn for suspected PNA - culture negative to date so vancomycin discontinued and zosyn continued for [address] PE showing no PE but b/l GGOs suggesting infection. Thoracentesis was transudate. Admission Na was 122, and is persistently low here, but improving. Admitted with oliguric AKIworsening and AGMA despite treating sepsis which was thought to be 2/2 Type 1 HRS so started on CRRT on 10/19 as well albumin, octreotide subq, midodrine and levofed to maintain MAPS>65. Interval History: Overnight, patient became tachypneic and desaturated to 80s requiring increase in FiO2 to 60%. Thismorning, patient had drop in hemoglobin to 6.1 which was confirmed on repeat. CT ab/pelvis was unremarkable for intrabdominal bleed. Hemolytic labs revealed low fibrinogen, but otherwise normal haptoglobin. Patient was transfused 1 unit of PRBCs. This morning, patient is more alert, answer questions via head nods and following commands. She denies abdominal pain or trouble breathing. artificial tears Each Eye q8h hydrocortisone sodium succinate PF 50 mg Intravenous q12h octreotide 100 mcg Subcutaneous TID midodrine 15 mg Oral q8h lactulose 10 g Oral TID insulin aspart 0-6 Units Subcutaneous q4h chlorhexidine Mouth/Throat BID perflutren Lipid Microsphere 0.5 mL Intravenous intra-Procedure multiple polyethyl glycol-propyl glycol 1 drop Each Eye q8h pantoprazole 40 mg Intravenous QDAY piperacillin-tazobactam 3.375 g Intravenous q8h PRN Meds:??? 0.9% NaCl ??? fentaNYL (PF) ??? PRISMASOL BGK 4/2.5 ??? glucose (Diabetic Use) ??? dextrose ??? glucagon ??? albuterol-ipratropium Objective: Temp: [97 ??F (36.1 ??C)-97.4 ??F (36.3 ??C)] 97.4 ??F (36.3 ??C) Pulse: [69-89] 76 Resp: [20-35] 20 BP: (82-99)/(52-74) 99/70 Arterial Line BP #2: (76-101)/(50-64) 101/64 O2 %: [40 %-70 %] 70 %Weight change: Intake/Output Summary (Last 24 hours) at 10/19/17 1705 Last data filed at 10/19/17 1500 Gross per 24 hour Intake 1574.84 ml Output 30 ml Net 1544.84 ml GEN No acute distress. Intubated. HEENT PERRL, sclera anicteric NECK supple CHEST course breath sounds bilaterally, tachypneic HEART RRR, no murmur ABD Soft, mildly distended, No TTP, guarding or rebound tenderness EXT mild anasarca NEURO alert, following commands Data Review Recent Labs Component Name 10/19/17 1234 10/19/17 0454 10/19/17 0404 WBC 16.7* 12.8* 11.5* HGB 8.6* 6.5* 6.1* HCT 23.9* 17.9* 17.1* PLT 60* 54* 54* MCV 86.0 87.7 86.4 Recent Labs Component Name 10/19/17 1234 10/19/17 04010/18/17213610/18/17 0434 CALCIUM 9.3 9.7 9.6 - 9.1 PHOS 1.3* - 2.0* - 2.5 - = values in this interval not displayed. Recent Labs Component Name 10/19/17 1234 10/19/17 0404 10/18/17213610/14/179 NA 132* 131* 128* - - K - - - - 3.4* CL 100 97* 97* - - CO2 18* 14* 14* - - BUN 11 14 17 - - CREATININE 1.2 1.4* 1.7* - - GLU 201* 186* 162* - - - = values in this interval not displayed. Recent Labs Component Name 10/19/17 1234 10/19/17 0404 10/18/17213610/18/17 0434 10/17/17 0419 08/07/17 0201 PROT - 5.9* - 4.6* 4.2* - - ALB 4.8 5.5* 4.9 3.5 3.0* - - ALKPHOS - 271* - 461* 471* - - AST - 29 - 41* 53* - - ALT - 9 - 15 16 - - TBILI - 1.4* - 1.2 1.9* - - DBILI - - - - - - 0.3 - = values in this interval not displayed. Recent Labs Component Name 10/19/17 0404 10/18/17 0434 10/15/17 0422 PT 24.9* 19.5* 36.2* INR 2.3 1.7 3.7 PTT 54.4* 41.6* - Recent Labs Component Name 08/07/17 0859 08/07/17 0142 TROPONINI <0.010 0.017 Imaging Micro: Blood cultures 10/14 - NGTD Sputum culture 10/14 - rare oropharyngeal annia; rare yeast Sputum culture 10/16 - light oropharyngeal annia Pleural fluid cx 10/15 - NGTD ECHO 10/15: 1. Flattened septum consistent with RV pressure/volume overload pattern. The left ventricular cavity size, mass index, systolic and diastolic function are normal with no regional wall motion abnormalities present. The left ventricular ejection fraction is estimated at 55 %. 2. The right ventricular size is severely increased. The right ventricular systolic function is mildly decreased. 3. The right atrial cavity size is mildly increased. 4. The left atrial cavity size is mildly increased. Injection of agitated saline contrast shows no evidence of intracardiac or extracardiac shunt. 5. Mild mitral regurgitation. 6. Mild aortic valve regurgitation. 7. There is moderate to severe tricuspid valve regurgitation. 8. Pleural effusion seen. There is a trivial pericardial effusion. ?? CT Angio Chest 10/15: 1. No evidence of pulmonary embolism, however, [...] hepatic segment 8 likely representing a hemangioma. ?? EKG 10/15: Junctional tachycardia ?? CXR 10/15: An endotracheal tube terminates in the midthoracic trachea. A nasogastric/orogastric tube loops and terminates in the proximal stomach. A right upper extremity peripherally inserted catheter tip overlies the superior cavoatrial junction. Diffuse bilateral interstitial and airspace opacities, right greater than left, may represent pneumonia and/or pulmonary edema. Small effusions may contribute. No pneumothorax is identified. The cardiomediastinal silhouette is partially obscured. ? KUB 10/15: A nasogastric/orogastric tube terminates in the body [...] than left. Multilevel degenerative changes are present. US abdomen RUQ 10/18 ?? 1. Hepatic cirrhosis. Limited evaluation of the right hepatic lobe. No distinct hepatic mass or lesion is identified. ?? 2. Status post cholecystectomy. ?? 3. Large volume abdominal ascites. Assessment & Plan: Neurological: Sedation - none Encephalopathy/Lethargy - improving. Multifactorial: Hyponatremia + sepsis + ARF + acidosis + possibly HE? Vs uremic encephalopathy - treating underlying conditions as below Cardiovascular: Shock: Improving - Continue midodrine 15mg TID - Wean levophed to maintain MAP>65 for suspected HRS type 1 - Discontinue Hydrocortisone - EKG showing junctional tachycardia on admission. Repeat EKG showed NSR Pulmonary: Acute respiratory failure Ddx: PNA vs pulmonary edema vs shock - Intubated at OSH; settings VAC 12/400/70%/5 - Thora 10/15 showed transudate. S/p paracentesis today to decrease compressive atelectasis and improve oxygenation- - RLL opacity and possible PNA - Cx with rare yeast, otherwise, no bacterial growth.Day 6/7 of zosyn - Day for Zosyn for suspected PNA GI: Decompensated HERNANDEZ Cirrhosis as seen on US - F/u AI workup - HE - Continue Lactulose.Titrate for 3-4 BM/24hrs - EV - no hx - Positive portal HTN w Ascites - S/p LVP with 3L removed today. F/u on cell count and cultures - HCC - US negative - MELD-Na score: 22 at 10/19/2017 12:34 PM MELD score: 19 at 10/19/2017 12:34 PM Calculated from: Serum Creatinine: 1.2 mg/dL at 10/19/2017 12:34 PM Serum Sodium: 132 mmol/L at 10/19/2017 12:34 PM Total Bilirubin: 1.4 mg/dL at 10/19/2017 4:04 AM INR(ratio): 2.3 at 10/19/2017 4:04 AM Age: 56 years - Not a transplate candidate due to functional status and current tobacco use - Elevated Alk Phos - GGT elevated. No abdominal pain on exam. US shows no signs of infection or stones - Monitor residuals Q4 hours, hold if > 150 cc. Renal: Oliguric JENNIFER - Nephrology consulted and recommended treating for HRS type 1. Albumin level normal. Continue octreotide 100mcg TID, midodrine 15mg TID and Levofed to maintain MAP >65 - F/u on autoimmune causes:MARILEE, Anti-DS DNA, Anti-Hahn Ab, SS-A and SS-B Antibodies, Hepatitis panel, HIV, ASO titers, Anti-GBM, Complement levels, Cryoglubulins, SPEP and UPEP, Serum light chain ratio, ACNA titers - Increase UF to 50cc as patient clinically appears volume overloaded - Renal function panel q8h Hyponatremia - hypotonic, hypervolemic, urine Na <20 - Na improved with CRRT - treat underlying illness, fluid restrict Metabolic acidosis - - Lactic acid wnl. BOH mildly elevated. Endocrine: Accucheks Q4 hours; sliding scale for target glucose 140 - 180 I.D.: No fever, no growth of any cultures - CXR with opacity, CT w b/l GGOs and in distributive shock - Continue zosyn d6/7 Heme/Onc: Anemia - Ddx: cirrhosis, sepsis - s/p 1 U RBCs, no gross bleeding Coagulopathy w scattered ecchymosis. Fibrinogen low at 114. INR 2.3 today. Concern for developing DIC. Give 5mg of vitamin K. Monitor coags q8h Thrombocytopenia: plt down to 87 from 186 on admission - F/u HIT Transfusion Protocol: Hb < 7, Plt < 10 Lines/Drains/Tubes: PICC 10/13. Johnson 10/15. NG 10/15. ETT 10/14. LIJ 10/18 DVT ppx: Hold heparin for concern of HIT. SCDs GI ppx: ppi Aspiration precautions - elevate head of bed 30 degrees. Diet: Increase TF Activity: Bed Rest. PT/OT consulted Disposition: ICU Monitoring Code Status: FULL Tyree Linares MD PGY-1 10/19/2017 5:05 PM Associated attestation - Reuben Tellez MD - 10/19/2017 5:[address] [facility] Critical Care Medicine (MICU) Attending Note Date of service: 10/19/2017 The patient seen, reviewed history,examined and discussed with residents and MICU Team. I have reviewed and agree with resident note except as noted below: Pt anxious, saying she wants breathing tube out. On low dose pressors 2+ edema. Lungs coarse. Increased FIO2 req Ultrasound abdomen with moderate ascites. IVC plump. Discussed goals of care with family. Pt was weak, walking with walker prior to illness, but was slowly gaining weight and strength prior to pneumonia. Per hepatology pt not a transplant candidate in near future due to poor functional status. 56f cirrhosis, admitted to osh with resp failure and hyponatremia, developed JENNIFER and shock. [facility] ?? Acute encephalopathy: 2/2 sepsis and liver dz -minimize sedation -lactulose -improving slowly ?? Shock: septic. Source likely lung. RV dysfunction may be contributing -goal net even to slightly neg volume status -titrate pressors -treat infection. All cx ng, so stop vanco. Continue zosyn. -OSH paracentesis neg for SBP -finish steroids today -high risk for candidemia. Add antifungal if becomes more unstable. ?? Cor pulmonale: suspect portopulmonary hypertension although PASP not high on echo (maybe falsely low due to RV dysfunction and low cardiac output -ct chest neg for PE -defer RHC for now Acute resp failure: 2/2 pna, fluid overload, ascites -continue vent support. May need to increase peep -try for net slightly neg volume status but maintain intravascular volume -therapeutic paracentesis today with caution -abx for pna. cx here and osh neg. Stopped vanco, continue zosyn ?? Jennifer: probably HRS, worsened by contrast -started CRRT -on trial of midodrine, octreotide -increase UF as able ?? Cirrhosis: 2/2 HERNANDEZ -watch liver enzymes, coags -treat encephalopathy as above -high alk phos. autoimmune workup pending ?? Hyponatremia: 2/2 liver dz, sepsis -limit free water -improving on CRRT ?? Thrombocytopenia: probably from liver dz and sepsis -holding heparin -hit ab pending ?? AGMA: probably from jennifer, sepsis -nutritional support -crrt ?? Guarded prognosis. Plan supportive care for next few days. Depending on clinical course, readdress goals. Poor candidate for alf ventilatory support / feeding tubes etc. Active Hospital Problems Acute encephalopathy Priority: Not Prioritized [19] Date Noted: 10/19/2017 Acute respiratory failure with hypoxia Priority: Not Prioritized [19] Date Noted: 10/19/2017 JENNIFER (acute kidney injury) Priority: Not Prioritized [19] Date Noted: 10/19/2017 Liver cirrhosis secondary to HERNANDEZ Priority: Not Prioritized [19] Date Noted: 10/19/2017 Cor pulmonale (chronic) Priority: Not Prioritized [19] Date Noted: 10/19/2017 Septic shock Priority: Not Prioritized [19] Date Noted: 10/14/2017 Critical care time 36 minutes, excluding procedures Pt. is at high risk for complications and morbidity or mortality Pt. is critically ill with vital organ impairment or failure There is high probability of imminent or life threatening deterioration in the patient???s condition Time involved in the performance of separately billable procedures, teaching, reviewing education material was not counted towards critical care time. * Alejo Agustin MD - 10/19/2017 2:06 PM CDT PT NAME : Rosa Li PT Date of admit : 10/14/2017 8:26 PM Rosa Li??is a 56 y.o.??female??with a ??hx of HERNANDEZ cirrhosis (from cholestatic obstructivedisease s/p cholecystectomy 01/2017)??complicated by ascites and hypotension. Patient was transferred from OSH on 10/11 with fatigue, SOB and sepsis, presumably secondary to pneumonia; hyponatremia and JENNIFER (BL Cr 0.8). Patient has been receiving pressors and mechanical ventilation. Initial workup: Imaging of kidneys (limited abdominal US , Rt kidney with increased echogenicity but no hydronephrosis)- upper part of left kidney appears normal on chest CT- Urine Na < 20, UA suggestive of UTI. TTE 05/2017, EF 55% ?? SUBJECTIVE/ 24 hr Events: Possibility of abdominal compartment syndrome was ruled out yesterday; intra bladder pressure 11 Initiated CVVHD yesterday; no acute issues Patient is conscious BP bland Continues to be hypotensive OBJECTIVE: VITALS: Vitals: 10/19/17 10/19/17 10/19/17 10/19/17 0815 0900 1000 1100 BP: 93/60 Pulse: 82 76 75 74 Resp: 24 26 22 26 Temp: 97.2 ??F (36.2 ??C) SpO2: 95% 93% 94% 92% Weight: Estimated body mass index is 21.96 kg/(m^2) as calculated from the following: Height as of this encounter: 1.524 m (5'). Weight as of this encounter: 51 kg (112 lb 7 oz). I/O: Intake/Output Summary (Last 24 hours) at 10/19/17 1406 Last data filed at 10/19/17 0800 Gross per 24 hour Intake 1374.84 ml Output 30 ml Net 1344.84 ml PHYSICAL EXAM: General: ??female, lying in bed, intubated, on mechanical ventilation, NAD. HEENT: NT/NC, MMM. Neck: no JVD, no LAD, no thyromegaly. Respiratory: lungs clear bilaterally, no crackles/wheezes. Decreased respiratory sounds in right base CVS: RRR, S1 S2 heard, no murmurs. Abdomen: Soft, Non-tender, non-distended, abdomen wall edema, bowel sounds audible. Musculoskeletal: ??No joint swelling. 1+??pedal edema. Neuro: Responsive, conscious, non focal Skin: no rash, no cyanosis LAB: Recent Labs Component Name 10/19/17 1234 10/19/17 0454 10/19/17 0404 10/18/17 0434 10/17/17 0419 10/15/17 0422 10/14/17 2220 08/08/17 0502 HGB 8.6* 6.5* 6.1* 9.4* 10.0* - 8.8* 10.9* - WBC 16.7* 12.8* 11.5* 13.7* 13.6* - 15.8* 14.2* - PLT 60* 54* 54* 87* 122* - 177 186 - HCT 23.9* 17.9* 17.1* 25.5* 28.1* - 24.6* 30.9* - MCV 86.0 87.7 86.4 85.3 87.3 - 88.5 88.3 - PT - - 24.9* 19.5* - - 36.2* 26.5* 15.3* INR - - 2.3 1.7 - - 3.7 2.5 1.2 - = values in this interval not displayed. Recent Labs Component Name 10/19/17 1234 10/19/17 0404 10/18/17 2137 10/18/17 1140 10/18/17 0434 10/17/17 1654 10/14/17 2239 10/14/17 2220 BUN 11 14 17 23 23 - - - - 16 CREATININE 1.2 1.4* 1.7* 2.3* 2.2* - - - - 1.3* NA 132* 131* 128* 124* 124* - - - - 119* K - - - - - - - - 3.4* - CL 100 97* 97* 94* 96* - - - - 97* CO2 18* 14* 14* 15* 12* - - - - 11* CALCIUM 9.3 9.7 9.6 9.7 9.1 - - - - 8.4 GLU 201* 186* 162* 184* 195* - - - - 242* PHOS 1.3* - 2.0* - 2.5 - 3.1 - - 3.3 - = values in this interval not displayed. Recent Labs Component Name 10/19/17 1234 10/19/17 0404 10/18/17 2137 10/18/17 0434 10/17/17 0419 10/16/17 0351 10/15/17 0422 ALB 4.8 5.5* 4.9 3.5 3.0* 3.5 4.3 TBILI - 1.4* - 1.2 1.9* 1.8* 0.9 ALT - 9 - 15 16 15 6 AST - 29 - 41* 53* 59* 23 Invalid input(s): PHART, [id number], PO2ART, [id number] ASSESSMENT # JENNIFER in the setting of infection (penumonia), low urine sodium, possibly HRS type 1 and associatedAKI secondary to shock. ?? # Liver cirrhosis with ascites ?? -# Hyponatremia in the setting of JENNIFER + cirrhosis ?? # Metabolic acidosis ?? # Thrombocytopenia ?? -# Pneumonia with septic shock ? Recommendations/Plan: - Will continue CRRT, UF to 50 ml/hour, - Will suggest to obtain opinion of liver service about future possibility of Tx Patient seen and examined at the bedside, plan of care discussed with the attending, Dr. Hidalgo We will continue to follow the patient with you. Please do not hesitate to contact us with further questions. Alejo Alejo MD. Nephrology Fellow. # [phone]. * Lizz Alexander OT - 10/19/2017 9:37 AM CDT [facility] Department of Physical Medicine & Rehabilitation Progress Note Patient: Rosa Li Med Record Number: [id number] Date of : 1960 Age: 56 y.o. 10/19/17 0900 Missed Visit Missed Visit Per discussion with RN and chart review, cancel therapy evaluation this date. While the patient is awake and alert is on high vent settings (70% Fi02), CRRT, pressors, and with blood transfusion running. Will follow up tomorrow, 10/20. Lizz Alexander OT 10/19/2017 9:38 AM * Princess Jung PT - 10/19/2017 9:15 AM CDT [facility] Department of Physical Medicine & Rehabilitation Progress Note Patient: Rosa Li [facility] Record Number: [id number] Date of : 1960 Age: 56 y.o. 10/19/17 0900 Missed Visit Missed Visit Per discussion with RN and chart review, cancel therapy evaluation this date. While the patient is awake and alert is on high vent settings (70% Fi02), CRRT, pressors, and with blood transfusion running. Will follow up tomorrow, 10/20. * Yoana Lund RN - 10/19/2017 7:44 AM CDT CRRT/CVVHD NOTE: Daily supervision support check and equipment check done. Report received from Nurse Godinez. Restart with new cartridge done as pt had gone to CT scan and system was discontinued afterNurse returned blood. Dialysate flow rate = 1.5 liters per hour. UF = 0 Blood flow = 200 mls per minute. Art pressure = - -29. Venous pressure = 112. BP = 88/55. HR = 80. Pt remains on ve. Edema 2 + noted in lowe rextremities.Report given to Nurse Godinez. Yoana Lund RN. * Darron Witt RCP - 10/19/2017 5:19 AM CDT assessed pt breath sounds and correct placement of Ett to maintain a patent airway.ETT secured withtube crowley. Mouth care done on pt per protocol. Pt pre oxygenated before suction. Bed reamins @ 30degree angle while givingpt care. Continued to monitor pt throughout the night for improvement.ETT will be secured via crowley device to maintain proper tube position. Size 7.0 ETT is currently secured via crowley at 21 cm at lip. No rsbi done due to pt on pressors Darron Witt, Respiratory Care Practitioner * Tyree Linares MD - 10/18/2017 4:19 PM CDT MICU PROGRESS NOTE Admit Date: 10/14/2017 Progress note HPI: Per EMR, Ms. Li is a 56 y.o. female w/ hx of HERNANDEZ-cirrhosis c/b ascites requiring LVPs q1-2 weeks, chronic hypotension, chronic hypotension and cholestatic obstructive disease s/p cholecystectomy is transferred from [facility] with hyponatremia at 115, acute respiratory failure and shock. At OSH LVP negative for SBP. Lg R effusion on CXR. Shock requiring PICC and pressors at OSH. Started on CTX and Flagyl. ?? Here at [facility] she continued to require levophed but titrating down, continued broad spectrum abx changed to vanc/zosyn for suspected PNA - culture negative to date. CT PE showing no PE but b/l GGOs suggesting infection. Thoracentesis was transudate. Admission Na was 122, and is persistently low here,but improving. Admitted with oliguric JENNIFER worsening and AGMA despite treating sepsis. He was started on bicarb drip on 10/17. Interval History: No acute events overnight. This morning, patient is very somnolent and intermittently follows commands. Patient has not received sedating mediations for 2 days. Weaned off of pressors this morning. hydrocortisone sodium succinate PF 50 mg Intravenous q12h 0.9% NaCl albumin human 25 g Intravenous q6h octreotide 100 mcg Subcutaneous TID midodrine 15 mg Oral q8h lactulose 10 g Oral TID insulin aspart 0-6 Units Subcutaneous q4h chlorhexidine Mouth/Throat BID perflutren Lipid Microsphere 0.5 mL Intravenous intra-Procedure multiple polyethyl glycol-propyl glycol 1 drop Each Eye q8h heparin 5,000 Units Subcutaneous q8h pantoprazole 40 mg Intravenous QDAY piperacillin-tazobactam 3.375 g Intravenous q8h PRN Meds:PRISMASOL BGK 4/2.5??? glucose (Diabetic Use)??? dextrose??? glucagon??? albuterol-ipratropium Objective: Temp: [96.8 ??F (36 ??C)-98.2 ??F (36.8 ??C)] 97.5 ??F (36.4 ??C) Pulse: [60-70] 66 Resp: [17-26] 20 BP: (70-94)/(50-67) 94/60 Arterial Line BP #2: (72-102)/(47-62) 102/62 O2 %: [30 %-40 %] 40 %Weight change: 3 kg (6 lb 9.8 oz) Intake/Output Summary (Last 24 hours) at 10/18/17 1619 Last data filed at 10/18/17 1400 Gross per 24 hour Intake 1694 ml Output 13 ml Net 1681 ml GEN No acute distress. HEENT PERRL, sclera anicteric NECK supple CHEST course breath sounds bilaterally, no respiratory distress HEART RRR, no murmur ABD Soft, mildly distended, No TTP, guarding or rebound tenderness EXT No edema NEURO Somnolent. Data Review Recent Labs Component Name 10/18/17 0434 10/17/17 0419 10/16/17 0351 WBC 13.7* 13.6* 18.0* HGB 9.4* 10.0* 10.9* HCT 25.5* 28.1* 30.0* PLT 87* 122* 185 MCV 85.3 87.3 87.0 Recent Labs Component Name 10/18/17 1140 10/18/17 0434 10/17/17205510/17/17 1654 10/14/17 2220 CALCIUM 9.7 9.1 9.0 - - 8.4 PHOS - 2.5 - 3.1 - 3.3 - = values in this interval not displayed. Recent Labs Component Name 10/18/17 1140 10/18/17 0434 10/17/17205510/14/17 2239 NA 124* 124* 123* - - K - - - - 3.4* CL 94* 96* 95* - - CO2 15* 12* 14* - - BUN 23 23 22 - - CREATININE 2.3* 2.2* 2.1* - - GLU 184* 195* 307* - - - = values in this interval not displayed. Recent Labs Component Name 10/18/17 0434 10/17/17 0419 10/16/17 0351 08/07/17 0201 PROT 4.6* 4.2* 4.8* - - ALB 3.5 3.0* 3.5 - - ALKPHOS 461* 471* 313* - - AST 41* 53* 59* - - ALT 15 16 15 - - TBILI 1.2 1.9* 1.8* - - DBILI - - - - 0.3 - = values in this interval not displayed. Recent Labs Component Name 10/18/17 0434 10/15/17 0422 10/14/17 2220 PT 19.5* 36.2* 26.5* INR 1.7 3.7 2.5 PTT 41.6* - - Recent Labs Component Name 08/07/17 0859 08/07/17 0142 TROPONINI <0.010 0.017 Imaging Micro: Blood cultures 10/14 - NGTD Sputum culture 10/14 - rare oropharyngeal annia; rare yeast Sputum culture 10/16 - light oropharyngeal annia Pleural fluid cx 10/15 - NGTD ECHO 10/15: 1. Flattened septum consistent with RV pressure/volume overload pattern. The left ventricular cavity size, mass index, systolic and diastolic function are normal with no regional wall motion abnormalities present. The left ventricular ejection fraction is estimated at 55 %. 2. The right ventricular size is severely increased. The right ventricular systolic function is mildly decreased. 3. The right atrial cavity size is mildly increased. 4. The left atrial cavity size is mildly increased. Injection of agitated saline contrast shows no evidence of intracardiac or extracardiac shunt. 5. Mild mitral regurgitation. 6. Mild aortic valve regurgitation. 7. There is moderate to severe tricuspid valve regurgitation. 8. Pleural effusion seen. There is a trivial pericardial effusion. ?? CT Angio Chest 10/15: 1. No evidence of pulmonary embolism, however, [...] hepatic segment 8 likely representing a hemangioma. ?? EKG 10/15: Junctional tachycardia ?? CXR 10/15: An endotracheal tube terminates in the midthoracic trachea. A nasogastric/orogastric tube loops and terminates in the proximal stomach. A right upper extremity peripherally inserted catheter tip overlies the superior cavoatrial junction. Diffuse bilateral interstitial and airspace opacities, right greater than left, may represent pneumonia and/or pulmonary edema. Small effusions may contribute. No pneumothorax is identified. The cardiomediastinal silhouette is partially obscured. ? KUB 10/15: A nasogastric/orogastric tube terminates in the body [...] than left. Multilevel degenerative changes are present. US abdomen RUQ 10/18 ?? 1. Hepatic cirrhosis. Limited evaluation of the right hepatic lobe. No distinct hepatic mass or lesion is identified. ?? 2. Status post cholecystectomy. ?? 3. Large volume abdominal ascites. ? Assessment & Plan: Neurological: Sedation - none Encephalopathy/Lethargy - hyponatremia + sepsis + ARF + acidosis + possibly HE? Vs uremic encephalopathy - treating underlying conditions as below Cardiovascular: Shock - distributive, septic (most likely source PNA) also with decompensated cirrhosis - Wean levophed to maintain MAP>65 for suspected HRS type 1 - Decreased Hydrocortisone to 50mg q12h. Continue midodrine to 15 TID Irregular tachycartdia - resolved - EKG showing junctional tachycardia. Repeat EKG showed NSR Pulmonary: Acute respiratory failure Ddx: consider PNA/effusion/shock - Intubated at OSH; settings VAC 12/400/30%/5 - S/p thoracentesis - transudate consistent with hydrothorax - RLL opacity and possible PNA - Cx with rare yeast, otherwise, no bacterial growth - Day for Zosyn for suspected PNA GI: Decompensated HERNANDEZ Cirrhosis as seen on US - Will send workup AI causes - HE - Lactulose started for somnolence.Titrate for 3-4 BM/24hrs - EV - no hx - + portal HTN w Ascites - LVP ~every 2 wks. No SBP on LVP from 10/08. Consider LVP in near future - HCC - US negative - MELD 29 - unsure about txp candidacy Elevated Alk Phos - GGT elevated. No abdominal pain on exam. US shows no signs of infection or stones - Monitor residuals Q4 hours, hold if > 150 cc. Renal: Oliguric JENNIFER - Nephrology consulted and recommended treating for HRS type 1. Start albumin 25g q6h, octreotide 100mcg TID and Levofed to maintain MAP >65 - Send workup for AI causes:MARILEE, Anti-DS DNA, Anti-Hahn Ab, SS-A and SS-B Antibodies, Hepatitis panel, HIV, ASO titers, Anti-GBM, Complement levels, Cryoglubulins, SPEP and UPEP, Serum light chain ratio, ACNA titers - Discontinue bicarb drip as CO2 did not respond - Start CRRT - Renal function panel q8h Hyponatremia - hypotonic, hypervolemic, urine Na <20 - Patient has chronic hyponatremia ranging from 126-130. - consistent with cirrhosis - treat underlying illness, fluid restrict Metabolic acidosis - AGAP 16 - Likely due to ARF - Lactic acid wnl. BOH mildly elevated. Endocrine: Accucheks Q4 hours; sliding scale for target glucose 140 - 180 I.D.: No fever, no growth of any cultures - CXR with opacity, CT w b/l GGOs and in distributive shock - Dc vanc. Continue zosyn d4/7 Heme/Onc: Anemia - Ddx: cirrhosis, sepsis - s/p 1 U RBCs, no gross bleeding Coagulopathy w scattered ecchymosis, INR 1.7 today - vit K d3 Thrombocytopenia: plt down to 87 from 186 on admission - Send HIT Transfusion Protocol: Hb < 7, Plt < 10 Lines/Drains/Tubes: PICC 10/13. Johnson 10/15. NG 10/15. ETT 10/14. LIJ 10/18 DVT ppx: Hold heparin for concern of HIT. SCDs GI ppx: ppi Aspiration precautions - elevate head of bed 30 degrees. Diet: Resume TF Activity: Bed Rest. PT/OT consulted Disposition: ICU Monitoring Code Status: FULL Tyree Linares MD PGY-1 10/18/2017 4:19 PM Associated attestation - Reuben Tellez MD - 10/19/2017 1:27 PM CDT [facility] Critical Care Medicine (MICU) Attending Note Date of service: 10/18/2017 The patient seen, reviewed history,examined and discussed with residents and MICU Team. I have reviewed and agree with resident note except as noted below: 56f cirrhosis, admitted to osh with resp failure and hyponatremia, developed JENNIFER and shock. [facility] Acute encephalopathy: 2/2 sepsis and liver dz -minimize sedation -lactulose Shock: septic. Source likely lung. RV dysfunction may be contributing -goal net even volume status today -titrate pressors -treat infection. All cx ng, so stop vanco. Continue zosyn. -OSH paracentesis neg for SBP Cor pulmonale: suspect portopulmonary hypertension although PASP not high on echo (maybe falsely low due to RV dysfunction and low cardiac output -ct chest neg for PE -defer RHC for now Jennifer: probably HRS, worsened by contrast -likely start crrt per renal -on trial of albumin, midodrine, octreotide Cirrhosis: 2/2 HERNANDEZ -watch liver enzymes, coags -terat encephalopathy as above -high alk phos. Send autoimmune workup for completeness Hyponatremia: 2/2 liver dz, sepsis -limit free water Thrombocytopenia: probably from liver dz and sepsis -stop heparin -check hit ab AGMA: probably from jennifer, sepsis -repeat BMP -check lactate, BHB Guarded prognosis Active Hospital Problems Diagnosis Date Noted ??? Acute encephalopathy 10/19/2017 Priority: Not Prioritized ??? Acute respiratory failure with hypoxia 10/19/2017 Priority: Not Prioritized ??? JENNIFER (acute kidney injury) 10/19/2017 Priority: Not Prioritized ??? Liver cirrhosis secondary to HERNANDEZ 10/19/2017 Priority: Not Prioritized ??? Cor pulmonale (chronic) 10/19/2017 Priority: Not Prioritized ??? Septic shock 10/14/2017 Priority: Not Prioritized Critical care time 34 minutes, excluding procedures Pt. is at high risk for complications and morbidity or mortality Pt. is critically ill with vital organ impairment or failure There is high probability of imminent or life threatening deterioration in the patient???s condition Time involved in the performance of separately billable procedures, teaching, reviewing education material was not counted towards critical care time. * Adelita Doty MSW - 10/18/2017 3:33 PM CDT Care Coordination Initial Assessment Case Management screen completed, welcome letter given. Met with: spouse and son Emergency Contact(s): Extended Emergency Contact Information Primary Emergency Contact: Ralph Li Address: [address] [place] [address] Relation: Spouse Lives with Spouse Type of Residence: +One Story Prior Level of Functioning: Requires assistance with:: Feeding;Mobility;Dressing;Toileting Medical Conditions: Dehydration/Malnutrition Prior to admission level of care: Home Prior to admit provider: None Current Equipment/DME at Home: Cane-Straight;Walker-4 Wheeled with Seat Current DME Provider: Discharge Plan: Anticipated level of care at discharge: Home Anticipated Discharge Date: 10/22/17 If patient requires HHC at discharge, he/she requests: to be determined Transportation at discharge: Family Transportation to MD appointments: Family PCP: Fernie Barfield, DO If no PCP, action taken: n/a Pharmacy benefit: Yes. If no, action taken: Preferred Pharmacy: No Pharmacies Listed Advance Directive/POA: No Advance Directive Food Insecurity: Within the past 12 months we worried whether our food would run out before we got m oney to buy more: Never true Within the past 12 months the food we bought just didn't last and we didn't have money to get more:Never true Payor/Plan Subscriber Name Rel Member # Group # [employer] - [employer] HMO POS* ROSA LI [id number] [id number] Community Resources currently in use: No CR Details: Community Resources Contact Information: Substance Abuse Assessment Indicated: No Comments: SW completed assessment with patient's spouse and son. Patient intubated and sedated. Will continue to follow. For any questions or needs please contact: Traffic Court Referee or Full Stack Software Developer Name/Phone number: GUERRERO Hoff Office: [phone] 10/18/2017 * Ludwin Lynn RN - 10/18/2017 3:28 PM CDT CVVHD initiated via patent LIJ with excellent flows. TFR is 1.5L/hr UFR is Zero BFR is 200 ml/min BP 84/53 HR 66 02 sat=96% RR 26. * Alejo Agustin MD - 10/18/2017 2:21 PM CDT PT NAME : Rosa Li PT Date of admit : 10/14/2017 8:26 PM Rosa Li is a 56 y.o. 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 Patient was transferred from OSH on 10/11 with fatigue, SOB and sepsis, presumably secondary to pneumonia; hyponatremia and JENNIFER(BL Cr 0.8). Patient has been receiving pressors and mechanical ventilation. Initial workup: Imaging of kidneys (limited abdominal US , Rt kidney with increased echogenicity but no hydronephrosis)- upper part of left kidney appears normal on chest CT- Urine Na < 20, UA suggestive of UTI. TTE 05/2017, EF 55% ? Patient renal function has deteriorated, increasing creatinine to 2.2, hyponatremia 125, acidosis CO212, nd sustained anuria. SUBJECTIVE/ 24 hr Events: Mechanical ventilation Anuria OBJECTIVE: VITALS: Vitals: 10/18/17 10/18/17 10/18/17 10/18/17 1200 1300 1311 1400 BP: (!) 77/56 (!) 70/50 Pulse: 65 62 62 60 Resp: Temp: 98 ??F (36.7 ??C) SpO2: 96% 97% 97% 97% Weight: Estimated body mass index is 21.96 kg/(m^2) as calculated from the following: Height as of this encounter: 1.524 m (5'). Weight as of this encounter: 51 kg (112 lb 7 oz). I/O: Intake/Output Summary (Last 24 hours) at 10/18/17 1422 Last data filed at 10/18/17 1208 Gross per 24 hour Intake 1694 ml Output 13 ml Net 1681 ml PHYSICAL EXAM: General: female, lying in bed, intubated, sedated, NAD. HEENT: NT/NC, MMM. Neck: no JVD, no LAD, no thyromegaly. Respiratory: lungs clear bilaterally, no crackles/wheezes. Decreased respiratory sounds in right base CVS: RRR, S1 S2 heard, no murmurs. Abdomen: Soft, Non-tender, non-distended, abdomen wall edema, bowel sounds audible. Musculoskeletal: No joint swelling. 1+ pedal edema. Neuro: Unresponsive, mechanical ventilation. Skin: no rash, no cyanosis LAB: Recent Labs Component Name 10/18/17 0434 10/17/17 0419 10/16/17 0351 10/15/17 0422 10/14/17 2220 08/08/17 0502 08/07/17 0142 HGB 9.4* 10.0* 10.9* 8.8* 10.9* - - - WBC 13.7* 13.6* 18.0* 15.8* 14.2* - - - PLT 87* 122* 185 177 186 - - - HCT 25.5* 28.1* 30.0* 24.6* 30.9* - - - MCV 85.3 87.3 87.0 88.5 88.3 - - - PT 19.5* - - 36.2* 26.5* 15.3* - 17.1* INR 1.7 - - 3.7 2.5 1.2 - 1.4 - = values in this interval not displayed. Recent Labs Component Name 10/18/17 1140 10/18/17 0434 10/17/17 2056 10/17/17 1654 10/17/17 1145 10/17/17 0419 10/14/17 2239 10/14/17 2220 08/08/17 0502 08/07/17 0142 BUN 23 23 22 - 22 20 - - 16 14 - 16 CREATININE 2.3* 2.2* 2.1* - 2.0* 2.0* - - 1.3* 0.9 - 0.8 NA 124* 124* 123* - 122* 123* - - 119* 128* - 126* K - - - - - - - 3.4* - - - - CL 94* 96* 95* - 97* 100 - - 97* 97* - 98 CO2 15* 12* 14* - 11* 10* - - 11* 22 - 22 CALCIUM 9.7 9.1 9.0 - 9.0 9.1 - - 8.4 7.8* - 6.6* GLU 184* 195* 307* - 234* 137* - - 242* 91 - 95 PHOS - 2.5 - 3.1 - - - - 3.3 3.5 - 3.3 - = values in this interval not displayed. Recent Labs Component Name 10/18/17 0434 10/17/17 0419 10/16/17 0351 10/15/17 0422 08/08/17 0502 ALB 3.5 3.0* 3.5 4.3 1.9* TBILI 1.2 1.9* 1.8* 0.9 0.7 ALT 15 16 15 6 13 AST 41* 53* 59* 23 28 Invalid input(s): PHART, [id number], PO2ART, [id number] ASSESSMENT: # JENNIFER in the setting of infection (penumonia), low urine sodium, possibly HRS type 1 and associatedAKI secondary to shock. # Liver cirrhosis with ascites -# Hyponatremia in the setting of JENNIFER + cirrhosis # Metabolic acidosis # Thrombocytopenia -# Pneumonia with septic shock ?? Recommendations/Plan: - Given large volume ascites (by US), would check bladder pressure- if elevated (> 15-20), a large volume tap after treatment with IV albumin would be indicated treating medical abdominal compartment syndrome - Volume expansion with IV albumin (25 grams Q 6 hours) + Octreotide + IV NE is in order - Will consider CRRT if no response with increased UO. ??Recommendations/Plan: - Will initiate Hemodialysis/CVVHD today after Wang catheter placement. - Monitor iCa, Ph, Mg, K levels q 6-8h and replace as needed while on CRRT. - Urine sediment microscopy noted for granular casts, hyaline casts, RBC and WBC. - Avoid Nephrotoxic agents, IV contrast, CINDA I or ARB, NSAID's - Monitor Renal function closely and replace electrolytes as required - Keep MAP > 65 mm Hg for renal perfusion. - Continue IV antibiotics, renally dosed for eGFR < 15. Patient seen and examined at the bedside, plan of care discussed with the attending, Dr. Hidalgo We will continue to follow the patient with you. Please do not hesitate to contact us with further questions. Alejo Alejo MD. Nephrology Fellow. # [phone]. Associated attestation - Chun Hidalgo MD - 10/19/2017 7:36 AM CDT I have seen and examined the patient with house-staff on rounds. I agree with the house-staff note with the additions/modificiations detailed in my separate linked note on the same date. * Khadijah Bradshaw, RADHA/NATHAN - 10/18/2017 12:29 PM CDT Initial Nutrition Assessment Nutrition Recommendations: Advance TFs when hemodynamically stable. TF recs: Vital HP at goal rate 50 ml/hr. Provides 1200 kcal, 105 gm protein, and 1003 ml free water. + FWF 100 ml TID (total free water = 1303 ml) Comments: Pt screened for new TF order. Osmolite 1.2 ordered at 20 ml/hr. Per progress notes, trickle feeds started with caution d/t increased pressor requirements. Also noted MAP = 60. Pt on the vent, CRRT to be started. Abdomen distended, firm, ascites. LBM 6/4. Assessment: Med/Surg History and Clinical Diagnoses: HPI: septic shock, resp failure; PMH: HERNANDEZ cirrhosis, ascites Height: 5' (152.4 cm) Weight: 112 lb 7 oz (51 kg) BMI: Body mass index is 21.96 kg/(m^2). BMI Range: Normal IBW/lb (Calculated) Female: 100 Diet order accuracy Current diet order: NPO Current tube feeding order: Osmolite 1.2 at 20 ml/hr Nutrition recommendation: alter/change nutrition order P.O.Intake for the past 48 hrs: No Data Recorded GI Concerns: None Chewing/Swallowing: Mechanically Altered (vent) Estimated Needs: KCAL: 1125 (Juvenal State Equation), vent Protein (g): 102-127 (2-2.5 gm/kg), CRRT Fluid (ml): 0986-4240 (25-30 ml/kg) Needs based on: Juvenal State Recommended Access Route: TF Pertinent Nutrition Labs: Reviewed Pertinent Nutrition Medications: Insulin, lactulose, ppi, vitamin K, vasopressin Skin/Wound: PU - coccyx; wound to Lt arm, Rt hip Nutrition Care Process (1) Nutrition Diagnostic Statement: Swallowing difficulty related to:: mechanical ventilation as evidenced by:: --- (intubation.) Nutrition Diagnostic Statement Progress: New diagnostic statement established Nutrition Intervention: Enteral nutrition: Monitoring: TF tolerance, labs, weight, BM Evaluation: Nutrition Goal: Enteral/Parenteral Nutrition prescription will be consistent with estimated nutrient needs Nutrition Goal Timeframe: Ongoing Nutrition Goal Progress: New goal established QUINTEN Elias * Maggie Kunz RCP - 10/18/2017 12:31 AM CDT Problem: Mechanical Ventilation Goal: ET tube will be managed safely Outcome: Ongoing ETT will be secured via crowley device to maintain proper tube position. Size 7.0mm ETT is currentlysecured via crowley at 21cm at lips. uneventful night. * Elver Askew MD - 10/17/2017 10:51 AM CDT 10/17/2017 Patient seen and examined with Resident. Please see note for further details. I confirm history, exam, assessment and plan. See my note for changes. 3 CC: Acute hypoxic respiratory failure. Brief History: The patient is a 56 year old with HERNANDEZ cirrhosis who was tx from OSH for hyponatemiaand respiratory failure. She was intubated prior to transfer to [facility]. PICC line was placed at OSH for nor epi infusion. OSH 10/11-10/14. Hyponatremia. Large pleural effusion noted on CXR at OSH. Allergies are noted. Interval History: -On vasopressors and remains intubated. -Afebrile. Physical Examination: Vitals: 10/17/17 0400 10/17/17 0500 10/17/17 0600 10/17/17 0700 BP: Pulse: 68 73 69 72 Resp: 18 (!) 33 18 20 Temp: 96.8 ??F (36 ??C) SpO2: 96% 91% 98% 99% Weight: 105 lb 13.1 oz (48 kg) NAD. Lethargic. Withdraws to pain. ETT in place. BL air entry. Coarse breath sounds. Heart is irregularly irregular, tachycardia. No edema. Distended abdomen. Lab data including imaging is noted. Assessment: 1. Shock, likely sepsis. 2. Acute hypoxic respiratory failure, intubated 10/14. 3. Left-sided effusion status post thoracentesis. Transudative. 4. Encephalopathy from shock. 5. JENNIFER, oliguric. 6. Pulmonary HTN 7. Tachycardia. 8. Electrolyte problems. 9. Hernandez cirrhosis with ascites. 10. PICC line in place. Plan: Neruo:Off sedation. Cardiology: A line. On nor epi, vasopressin and on HC 50 mg IV every 8 hours. Midodrine 10 mg TID. Dilated RV noted on echocardiogram. MAP goal 65 mmHg. Respiratory: No a candidate for liberation, reassess once shock resolves. HAP rx. ABG repeat.. Cxr tomorrow. Gastrointestinal: Tube feeding- trickle feed. RUQ US. Gastrourinary: Johnson in place. HRS--- start rx. Nephrology consulted, bicarb infusion. Hematology and oncology: No transfusion needs. Infectious disease: Continue pip/tazo and vancomycin. Follow cx. Endocrine: Accuchecks. Glycemic control. DVT and GI prophylaxis: Disposition: ICU monitoring. Total critical care time: 33 minutes. Elver Askew M.D., [facility] [employer] Dyeing Machine Tender of Internal Medicine Division of Pulmonary/Critical Care and Sleep Medicine [facility] * Tia Black MD - 10/17/2017 9:39 AM CDT MEDICAL ICU Progress Note 10/17/2017 at 9:39 AM Patient: Rosa Li (:1960) Room: [address] [place] [address] Admit Date: 10/14/2017. Hospital Day: 3 HISTORY: Rosa Li is a 56 y.o. female w/ hx of HERNANDEZ-cirrhosis c/b ascites and chronic hypotension istransferred for hyponatremia, respiratory failure and shock. At OSH LVP negative for SBP. Lg R effusion on CXR. Shock requiring PICC and pressors at OSH. Started on CTX and Flagyl. Here [facility] she continued to require levophed but titrating down, continued broad spectrum abx changed to vanc/zosyn for suspected PNA - sputum without growth. CT PE showing no PE but b/l GGOs suggesting infection. Thoracentesis was transudate. Admission Na was 122, and is persistently low here. Admitted with JENNIFER but worsening despite treating sepsis. INTERVAL HISTORY: No overnight events. Sodium very slightly improved. Continues to have poor UOP - Nephrology consulted. OBJECTIVE: Physical Exam: Temp: [96.8 ??F (36 ??C)-98.6 ??F (37 ??C)] 96.8 ??F (36 ??C) Pulse: [66-118] 72 Resp: [17-33] 20 BP: (78-113)/(58-83) 85/62 Arterial Line BP #2: (78-102)/(51-61) 79/51 O2 %: [40 %] 40 % Intake/Output Summary (Last 24 hours) at 10/17/17 0943 Last data filed at 10/17/17 0700 Gross per 24 hour Intake 1607.3 ml Output 19 ml Net 1588.3 ml UOP - 40 cc General: Intubated, sedated, NAD. Eyes: Pupils dilated, reactive, EOMI, no erythema or exudates Throat: MMM, no erythema, swelling, exudate Neck: Supple, soft, non-tender. No LAD, +JVD. Cardio: Tachycardic, irregular, no murmurs Resp: Lungs clear bilaterally, decreased breath sounds at right base, no crackles/wheezes Abdomen: Soft, non-tender, non-distended, no organomegaly, bowel sounds normal Extremities: Radial and DP pulses 2+ bilaterally, no edema Skin: scattered ecchymosis over full body Neuro: opens eyes to voice, follows commands. NEW DATA: Micro: Blood cultures 10/14 - NGTD Sputum culture 10/14 - rare oropharyngeal annia Sputum culture 10/16 - light oropharyngeal annia Pleural fluid cx 10/15 - NGTD ECHO 10/15: 1. Flattened septum consistent with RV pressure/volume overload pattern. The left ventricular cavity size, mass index, systolic and diastolic function are normal with no regional wall motion abnormalities present. The left ventricular ejection fraction is estimated at 55 %. 2. The right ventricular size is severely increased. The right ventricular systolic function is mildly decreased. 3. The right atrial cavity size is mildly increased. 4. The left atrial cavity size is mildly increased. Injection of agitated saline contrast shows no evidence of intracardiac or extracardiac shunt. 5. Mild mitral regurgitation. 6. Mild aortic valve regurgitation. 7. There is moderate to severe tricuspid valve regurgitation. 8. Pleural effusion seen. There is a trivial pericardial effusion. CT Angio Chest 10/15: 1. No evidence of pulmonary embolism, however, [...] hepatic segment 8 likely representing a hemangioma. EKG 10/15: Junctional tachycardia CXR 6/1: An endotracheal tube terminates in the midthoracic trachea. A nasogastric/orogastric tube loops and terminates in the proximal stomach. A right upper extremity peripherally inserted catheter tip overlies the superior cavoatrial junction. Diffuse bilateral interstitial and airspace opacities, right greater than left, may represent pneumonia and/or pulmonary edema. Small effusions may contribute. No pneumothorax is identified. The cardiomediastinal silhouette is partially obscured. ?? KUB 10/15: A nasogastric/orogastric tube terminates in the body [...] than left. Multilevel degenerative changes are present. ASSESSMENT and PLAN: Neurological: Sedation - none, has not been getting PRN fentanyl Encephalopathy/Lethargy - hyponatremia + sepsis + ARF + acidosis + possibly HE? - treating underlying conditions as below - Consider CT Head Cardiovascular: Shock - distributive, septic (most likely source PNA) also with decompensated cirrhosis - levophed decreasing, vasopressin fixed at 0.04, fluid resuscitate PRN - stress steroids, increase midodrine to 15 TID Irregular tachycardia - resolved - EKG showing junctional tachycardia. Repeat EKG NSR - HR controlled Pulmonary: Acute respiratory failure Ddx: consider PNA/effusion/shock - s/p thoracentesis - transudate consistent with hydrothorax - RLL opacity and possible PNA - following cultures, so far negative - intubated, not yet ready for liberation - RSBI failed due to apnea - repeat CXR tomorrow morning to look for re accumulation of hydrothorax GI: Decompensated HERNANDEZ (biopsy showed fatty liver not cirrhosis) - HE - no history of. Lethargic and therefore started lactulose titrating for 3- 4 BM/24hrs - EV - no hx of - + portal HTN w Ascites - LVP ~every 2 wks. No SBP on LVP from 10/08. Not yet ready for LVP. - HCC - no evidence of - MELD 32 - unsure about txp candidacy Elevated Alk Phos - no abdominal pain - GGT to better define - has had issus with stones previously - RUQ US ordered Feeding: start trickle feeds - caution with high pressor requirements Monitor residuals Q4 hours, hold if > 150 cc. Renal: Oliguric JENNIFER - ATN vs HRS - will replace volume/albumin. LR bolus. Albumin is 3.5 - no improvement with increased MAP to 65. - started bicarb at 100 cc/hr for 1 L then reassess - official albumin challenge with 50 g albumin today and tomorrow - nephrology consulted Hyponatremia - hypotonic, hypervolemic, urine Na <20 - Patient has chronic hyponatremia ranging from 126-130. - consistent with cirrhosis - treat underlying illness, fluid restrict, low Na Metabolic acidosis - AGAP 13 - due to ARF - nephrology consulted Electrolytes: maintain K > 3.5 and Mg > 1.8. Endocrine: Accucheks Q4 hours; sliding scale for target glucose 140 - 180 I.D.: No fever, no growth of any cultures - CXR with opacity, CT w b/l GGOs and in distributive shock - Abx with Vanc/Zosyn until identifiable source - vanc level 10/17 at 1630. Heme/Onc: Anemia - Ddx: cirrhosis, sepsis - s/p 1 U RBCs, no gross bleeding Coagulopathy w scattered ecchymosis, INR 3.7 - vit K x3d Transfusion Protocol: Hb < 7, Plt < 10 Lines/Drains/Tubes: PICC 10/13. Johnson 10/15. NG 10/15. ETT 10/14. DVT ppx: heparin SQ GI ppx: ppi Aspiration precautions - elevate head of bed 30 degrees. Diet: NPO Activity: Bed Rest Disposition: ICU Monitoring Code Status: FULL Tia Black MD p: [phone] 10/17/2017 9:39 AM Associated attestation - Elver Askew MD - 10/17/2017 12:59 PM CDT Patient seen and examined with Resident. Please see note for further details. I confirm history, exam, assessment and plan. See my note for details. 10/17/2017 Elver Askew MD * Bishnu Pritchett, BILINGUAL CALL CENTER REPRESENTATIVE - 10/17/2017 5:16 AM CDT Patient would benefit with having a lower mandatory ventilation rate. Currently the vent rate is set at 18b/m and patient does not have to initiate her own breaths. Please consider decreasing rate. Thanks Bishnu Pritchett, Respiratory Care Practitioner 10/17/2017 5:18 AM * Tia Black MD - 10/16/2017 12:16 PM CDT MEDICAL ICU Progress Note 10/16/2017 at 12:16 PM Patient: Rosa Li (:1960) Room: [address] [place] [address] Admit Date: 10/14/2017. Hospital Day: 2 HISTORY: Rosa Li is a 56 y.o. female w/ hx of HERNANDEZ-cirrhosis c/b ascites and chronic hypotension istransferred for hyponatremia, respiratory failure and shock. At OSH LVP negative for SBP. Lg R effusion on CXR. Shock requiring PICC and pressors at OSH. Started on CTX and Flagyl. Here at [facility] she continued to require levophed, continued broad spectrum abx changed to vanc/zosyn for suspected PNA. CT PE showing no PE but b/l GGOs concerning for infection. Thoracentesis was transudate. Admission Na was 122, and is persistently low here. INTERVAL HISTORY: No significant overnight events. This AM HR is increased and appears irregular. OBJECTIVE: Physical Exam: Temp: [98.8 ??F (37.1 ??C)-99.5 ??F (37.5 ??C)] 98.8 ??F (37.1 ??C) Pulse: [68-118] 107 Resp: [18-28] 24 BP: (71-113)/(50-83) 113/83 O2 %: [40 %-50 %] 40 % Intake/Output Summary (Last 24 hours) at 10/16/17 1216 Last data filed at 10/16/17 0900 Gross per 24 hour Intake 1197.3 ml Output 102 ml Net 1095.3 ml General: Intubated, sedated, NAD. Eyes: Pupils dilated, reactive, EOMI, no erythema or exudates Throat: MMM, no erythema, swelling, exudate Neck: Supple, soft, non-tender. No LAD, +JVD. Cardio: Tachycardic, irregular, no murmurs Resp: Lungs clear bilaterally, decreased breath sounds at right base, no crackles/wheezes Abdomen: Soft, non-tender, non-distended, no organomegaly, bowel sounds normal Extremities: Radial and DP pulses 2+ bilaterally, no edema Skin: scattered ecchymosis over full body Neuro: opens eyes to sternal rub, withdraws LE to pain (not UE). NEW DATA: Micro: Blood cultures 10/14 - NGTD Sputum culture 10/14 - rare oropharyngeal annia Sputum culture 10/16 - pending Pleural fluid cx 10/15 - NGTD ECHO 10/15: 1. Flattened septum consistent with RV pressure/volume overload pattern. The left ventricular cavity size, mass index, systolic and diastolic function are normal with no regional wall motion abnormalities present. The left ventricular ejection fraction is estimated at 55 %. 2. The right ventricular size is severely increased. The right ventricular systolic function is mildly decreased. 3. The right atrial cavity size is mildly increased. 4. The left atrial cavity size is mildly increased. Injection of agitated saline contrast shows no evidence of intracardiac or extracardiac shunt. 5. Mild mitral regurgitation. 6. Mild aortic valve regurgitation. 7. There is moderate to severe tricuspid valve regurgitation. 8. Pleural effusion seen. There is a trivial pericardial effusion. CT Angio Chest 10/15: 1. No evidence of pulmonary embolism, however, [...] hepatic segment 8 likely representing a hemangioma. EKG 10/15: Junctional tachycardia CXR 10/15: An endotracheal tube terminates in the midthoracic trachea. A nasogastric/orogastric tube loops and terminates in the proximal stomach. A right upper extremity peripherally inserted catheter tip overlies the superior cavoatrial junction. Diffuse bilateral interstitial and airspace opacities, right greater than left, may represent pneumonia and/or pulmonary edema. Small effusions may contribute. No pneumothorax is identified. The cardiomediastinal silhouette is partially obscured. ?? KUB 10/15: A nasogastric/orogastric tube terminates in the body [...] than left. Multilevel degenerative changes are present. ASSESSMENT and PLAN: Neurological: Sedation - stop propofol, PRN fentanyl for now Encephalopathy - sedated on propofol hyponatremia + sepsis + uremia vs HE? - will re-examine after lightening sedation. Consider lactulose Consider CT Head Cardiovascular: Shock - distributive, most likely septic also with decompensated cirrhosis - On levophed, add vasopressin, fluid resuscitate - stress steroids, increase midodrine to 10 TID Irregular tachycardia - EKG showing junctional tachycardia. Does not appear like AF - repeat EKG this afternoon - tele now looking more regular and sinus, HR in 70s Pulmonary: Acute respiratory failure Ddx: consider PNA/effusion/shock - s/p thoracentesis - transudate consistent with hydrothorax - RLL opacity and possible PNA - following cultures, so far negative - intubated, not yet ready for liberation GI: Decompensated HERNANDEZ-cirrhosis - HE - no history of. Has had no BM, on daily miralax, consider lactulose with current AMS. - EV - no hx of - Ascites - LVP ~every 2 wks. No SBP on LVP from 10/08. - HCC - no evidence of - MELD 32 - unsure about txp candidacy Feeding: start trickle feeds - caution with high pressor requirements Monitor residuals Q4 hours, hold if > 150 cc. Renal: Oliguric JENNIFER - pre-renal vs HRS - will replace volume/albumin. LR bolus. Albumin is 3.5 - increase MAP goal to 65 (from 55) - consider nephrology consult Hyponatremia - hypotonic, hypervolemic, urine Na <20 - Patient has chronic hyponatremia ranging from 126-130. - consistent with cirrhosis - treat underlying illness, fluid restrict, low Na Electrolytes: maintain K > 3.5 and Mg > 1.8. Endocrine: Accucheks Q4 hours; sliding scale for target glucose 140 - 180 I.D.: No fever, no growth of any cultures - CXR with opacity, CT w b/l GGOs and in distributive shock - Abx with Vanc/Zosyn until identifiable source Heme/Onc: Anemia - Ddx: cirrhosis, sepsis - s/p 1 U RBCs, no gross bleeding Coagulopathy w scattered ecchymosis, INR 3.7 - vit K x3d Transfusion Protocol: Hb < 7, Plt < 10 Lines/Drains/Tubes: PICC 10/13. Johnson 10/15. NG 10/15. ETT 10/14. DVT ppx: heparin SQ GI ppx: ppi Aspiration precautions - elevate head of bed 30 degrees. Diet: NPO Activity: Bed Rest Disposition: ICU Monitoring Code Status: FULL Tia Black MD p: [phone] 10/16/2017 12:16 PM Associated attestation - Elver Askew MD - 10/17/2017 8:10 AM CDT Patient seen and examined with Resident. Please see note for further details. I confirm history, exam, assessment and plan. See my note for details. 10/17/2017 lEver Askew MD * Elver Askew MD - 10/16/2017 9:30 AM CDT 10/16/2017 Patient seen and examined with Resident. Please see note for further details. I confirm history, exam, assessment and plan. See my note for changes. CC: Acute hypoxic respiratory failure. Brief History: The patient is a 56 year old with HERNANDEZ cirrhosis who was tx from OSH for hyponatemiaand respiratory failure. She was intubated prior to transfer to [facility]. PICC line was placed at OSH for nor epi infusion. OSH 10/11-10/14. Hyponatremia. Large pleural effusion noted on CXR at OSH. Other elements of H&P are reviewed from resident's note. Allergies are noted. Interval History: -On vasopressors and remines intubated. -Diagnostic para and thoracentesis done overnight. -CT PE done, no PE. -Started on vasopressin. -HR irregular -Bolus given for JENNIFER. -Midodrine dose adjusted. -Afebrile. -Propofol for sedation. Physical Examination: Vitals: 10/16/17 0500 10/16/17 0600 10/16/17 0700 10/16/17 0800 BP: 85/66 85/64 84/59 82/59 Pulse: 85 83 87 92 Resp: 19 18 19 21 Temp: SpO2: 96% 96% 93% 93% Weight: NAD. Sedated. Withdraws to pain. ETT in place. BL air entry. Coarse breath sounds. Heart is irregularly irregular, tachycardia. No edema. Lab data including imaging is noted. Assessment: 1. Shock, likely sepsis. 2. Acute hypoxic respiratory failure, intubated 10/14. 3. Left-sided effusion status post thoracentesis. Transudative. 4. Encephalopathy from shock. 5. Pulmonary HTN 6. Tachycardia. 7. Electrolyte problems. 8. Hernandez cirrhosis with ascites. 9. PICC line in place. Plan: Neruo: Wean of sedation and assess mental status. Fentanyl PRN. Wean off propofol and start fentanyl infusion. Cardiology: Place A line. On nor epi, vasopressin and on HC 50 mg IV every 8 hours. Midodrine 5 mg PO TID-- increase to 10 mg. Dilated RV noted on echocardiogram. May need cardiology consult for rhythm abnormality. MAP goal 65 mmHg. 12 lead EKG STAT. Respiratory: No a candidate for liberation once shock resolves. CAP rx. ABG is reviewed. CT PE protocol- reviewed. Gastrointestinal: Tube feeding as not extubated in the next 24 hours. Gastrourinary: Johnson in place. HRS? Hematology and oncology: No transfusion needs. Infectious disease: Continue pip/tazo and vancomycin. Follow cx. Endocrine: Accuchecks. Glycemic control. DVT and GI prophylaxis: Disposition: ICU monitoring. Total critical care time: 35 minutes. Elver Askew M.D., [facility] [employer] of Internal Medicine Division of Pulmonary/Critical Care and Sleep Medicine [facility] * Aslhyn Edwards RCP - 10/16/2017 3:25 AM CDT 10/16/17 0323 Ventilation Liberation Ventilation liberation initiated by [facility] Sedation/Paralytic Holiday Sedation Holiday Completed? Yes Sedation Holiday Response Sedation resumed at previous rate Ventilation Liberation Relative Contraindications Does patient qualify for Ventilation Liberation? No Ventilation liberation 1 minute screen PSV Setting 10 Additional Vent Settings CPAP 5;Maintain current FiO2 Ventilation Liberation1 Min Resp Rate 42 Comments Passed Ventilation Liberation? No Ventilation Liberation Comments [id number] * Maddy Forrester, ALEJANDRO - 10/15/2017 8:21 PM CDT OG placed. Marked at 55cm. MICU notified for KUB * Adelita Doty MSW - 10/15/2017 3:37 PM CDT SW attempted to meet with patient to complete assessment, patient intubated and sedated, no family at bedside. SW will attempt again later. GUERRERO Magaña 10/15/2017 [id number] * Arielle Maria, PT - 10/15/2017 11:56 AM CDT [facility] Department of Physical Medicine & Rehabilitation Progress Note Patient: Rosa Li [facility] Record Number: [id number] Date of : 1960 Age: 56 y.o. 10/15/17 1100 Therapy on Hold Therapy on hold Patient has low level of responsiveness and unable to participate in skilled therapy. Please re-order therapy when patient able to actively participate. Arielle Maria PT 10/15/2017 11:56 AM * Shanda Temple OT - 10/15/2017 9:22 AM CDT [facility] Department of Physical Medicine & Rehabilitation Progress Note Patient: Rosa Li [facility] Record Number: [id number] Date of : 1960 Age: 56 y.o. 10/15/17 0900 Therapy on Hold Therapy on hold Patient has low level of responsivemess and unable to participate in skilled therapy. Please re-order therapy when patient able to actively participate. * Maddy Forrester RN - 10/15/2017 8:46 AM CDT Diagnostic paracentesis and thoracentesis performed at bedside after consent obtained from patient's . Time out performed prior to both procedures prior to the start of it. Pt given lidocaine to numb the area as well as increase in sedation to decrease discomfort and pain during procedure. Pt tolerated procedures well. Fluid from both procedures sent to lab for testing. Dr Rudy Hatfield removed 1300ml from the pt's left lung during the thoracentesis. No change in patient vital signs. No bleeding noted post-procedure. * Darron Witt RCP - 10/15/2017 5:25 AM CDT 10/15/17 0523 Ventilation Liberation Vitals SpO2 98 % Pulse 91 Ventilation liberation 30 min trial RSBI (Document number) (RSBI not done due to pt Hypotension) Darron Witt, Respiratory Care Practitioner documented in this encounter H&P Notes * Andrew Ruiz MD - 10/27/2017 2:56 PM CDT MICU transfer to [facility] 10/27/2017, 2:58 PM Patient: Rosa Li Room: 939/939-01 Admit Date: 10/14/2017. Hospital Day: 13 Brief Hospital Course Ms. 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 On admission to MICU [facility] admission was found to have bilateral pneumonia as the source of septic shock, was continued on pressors, antibiotics were switched to vancomycin and zosyn, thoracentesis result were consistent with a transudate, completed antibiotic regimen with Zosyn on 10/23 , pressors were disc ontinued on 10/24 and was successfully extubated on 10.25, currently on 2 liters NC. MICU stay was complicated by the following: -Encephalopathy attributed to sepsis and HE, now stable with lactulose and seroquel -Oliguric JENNIFER, max Cr 2.0 anuric and AGMA, was attributed to HRS triggered by sepsis, CRRT started on 10/19, stopped on 10/26 without signs of renal recovery, nephrology plans to place permacath and start HD. -Hyponatremia down to 115 mEq attributed to SIADH and underlying cirrhosis, improved with fluid restriction and CRRT,now 139 mEq. On 10/27 patient remained stable, off pressors, on nasal canula 2 lt, off CRRT, patient was transferred to the floor for further management. Objective: Patient Vitals for the past 8 hrs: BP Temp Pulse Resp SpO2 10/27/17 1400 88/58 - 67 18 94 % 10/27/17 1300 89/55 - 70 18 - 10/27/17 1200 95/66 - 73 18 97 % 10/27/17 1100 - - 76 25 100 % 10/27/17 1000 - - 62 15 - 10/27/17 0910 - - 75 19 97 % 10/27/17 0900 - - 79 20 (!) 88 % 10/27/17 0836 - 96.5 ??F (35.8 ??C) - - 93 % 10/27/17 0800 - (!) 94 ??F (34.4 ??C) 62 15 92 % 10/27/17 0700 95/61 - 72 16 99 % Intake/Output Summary (Last 24 hours) at 10/27/17 1458 Last data filed at 10/27/17 0800 Gross per 24 hour Intake 1153 ml Output 1486 ml Net -333 ml General - Appears older than stated age, NAD, cachetic HEENT - NC/AT, PERRL, EOMI, clear conjunctivae, left Wang Neck - Supple, no LAD, no JVD, significant midline bruise Chest - CTAB no w/c/r CV - Holosystolic murmur, no radiations, 3/6 Abdomen - Soft, distended, wave sign (significant ascites) not tender Extremities - No peripheral edema Skin - petichiae/ecchymoses in bilateral upper extremities Neurologic - A&O x 3, CN II-XII intact, 2/5 UE and LE strength Psych - Appropriate mood and affect Data Review Recent Labs Component Name 10/27/1741010/26/17 0424 10/25/17 0500 WBC 18.4* 17.4* 22.8* HGB 9.3* 8.9* 9.1* HCT 28.2* 26.8* 27.4* PLT 39* 61* 65* MCV 95.6 95.0 94.8 Recent Labs Component Name 10/27/1741010/26/17230210/26/17 1152 CALCIUM 9.6 9.5 9.1 PHOS 1.2* 1.1* 2.1* Recent Labs Component Name 10/27/17 04110/26/17 23010/26/17 1152 10/14/179 09/03/17 NA 139 139 136 - - - 126* K - - - - 3.4* - 5.2* CL 103 104 102 - - - 90* CO2 25 24 26 - - - 25.0 BUN 20 20 18 - - - 17 CREATININE 0.8 0.7 0.7 - - - - GLU 131* 208* 210* - - - 121* - = values in this interval not displayed. Recent Labs Component Name 10/27/17 04110/26/17 23010/26/17 1152 10/26/17 0424 10/25/17 0838 10/25/17 0500 08/07/17 0201 PROT 6.0 - - 5.8* - - 6.0 - - ALB 3.6 3.4 3.4 3.5 3.5 - - 3.4 3.4 - - ALKPHOS 796* - - 779* - - 652* - - AST 50* - - 44* - - 30 - - ALT 27 - - 23 - - 17 - - TBILI 1.8* - - 1.7* - - 1.5* - - DBILI - - - - - 0.9* - - 0.3 - = values in this interval not displayed. Recent Labs Component Name 10/27/17 0411 10/26/17 0424 10/25/17 0500 PT 15.0* 15.5* 12.5 INR 1.2 1.2 1.0 PTT 39.6* 39.6* 31.7 Recent Labs Component Name 10/27/17 0411 08/07/17 0859 08/07/17 0142 TROPONINI 0.070* <0.010 0.017 MELDScore MELD-Na score: 11 at 10/27/2017 4:11 AM MELD score: 11 at 10/27/2017 4:11 AM Calculated from: Serum Creatinine: 0.8 mg/dL (Rounded to 1) at 10/27/2017 4:11 AM Serum Sodium: 139 mmol/L (Rounded to 137) at 10/27/2017 4:11 AM Total Bilirubin: 1.8 mg/dL at 10/27/2017 4:11 AM INR(ratio): 1.2 at 10/27/2017 4:11 AM Age: 57 years Current Medications QUEtiapine 25 mg Oral AT BEDTIME midodrine 10 mg Oral q8h hydrocortisone sodium succinate PF 50 mg Intravenous QDAY lactulose 10 g Enteral Tube AT BEDTIME insulin aspart 0-6 Units Subcutaneous q6h 0.9% NaCl ??? glucose (Diabetic Use) ??? dextrose ??? glucagon ??? albuterol-ipratropium Microbiology ?? Blood culture NG ?? Sputum NG ?? Urine NG Imaging CT chest 10.15.2017 1. No evidence of pulmonary embolism, however, [...] hepatic segment 8 likely representing a hemangioma. Echocardiogram 10/27 Sinus rhythm. The left ventricular cavity size, wall thickness, systolic and diastolic function are normal/hyperdynamic with no regional wall motion abnormalities present. EF 81%. Normal left ventricular diastolic function. No aortic stenosis. Mildtomoderate aortic valve regurgitation. Trace mitral regurgitation. No mitral valve stenosis. Normal left atrial size. The right ventricular cavity size is normal. The right ventricle wall thickness is normal. There ishyperdynamic right ventricular systolic function. Normal estimated right ventricular systolic pressure, 17 mmHg. Normal right atrial size. Assessment of the IVC indicates normal right atrial pressure. Trace tricuspid valve regurgitation. Borderline infundibular pulmonary stenosis noted. Hyperdynamic narrowed out flow tract. Trivial pulmonary valve regurgitation.There is no pericardial or pleural effusion. Right heart has normalized compared to prior ECHO. Infundibular borderline pulmonary stenosis due to hyperdynamic RV Assessment/Plan: ?? Encephalopathy Multifactorial: sepsis, hepatic encephalopathy, delirium -Continue Lactulose to target 3-4 bm/d -Continue Seroquel -Neuro checks ?? Dysphagia Likely oropharyngeal form prolonged intubation Unlikely Esophagitis vs stricture vs NM vs other Currently on tube feeds, failed swallow test -Obtain Modified barium swallow ?? Severe deconditioning Malnutrition, significant loss of muscle mass Likely secondary to critically ill and no p.o intake Although since May she complained of severe weight loss, improved with food enzymes - will bring nutritional supplements -Continue Tube feeds -PT/OT ?? HERNANDEZ Cirrhosis -MELD-Na Score 11 -Etiology HERNANDEZ ??? Unclear since liver biopsy not consistent ---> obtain rest of cirrhosis w/u -Decompensated when HE, ascites or infection -HE : continue lactulose -EV : no EGD in system -Ascites: LVP Q2 w as outpatient, not on diuretics- -SBP : none prior -HCC: none seen on CT 10/2017 -Transplant : not a candidate: severe deconditioning and smoking ?? Oliguric JENNIFER Etiology unclear, likely HRS in the setting of underlying cirrhosis triggered by sepsis Requiring renal replacement therapy since 10/15, CRRT stopped on 10/26 No evidence of renal recovery Plan to place a permacath by IR 10/28 and start HD Discuss goals of care ?? Cholestasis Ischemic cholangiopathy from HoTN, vs congestive hepatopathy transient while RV dysfunction vs sepsis vs DILI (herbal supplements) AP ~700, elevated GGT and normal Tbili Non dilated bile ducts on CT 10/19 -Monitor CMP ?? Septic shock - Resolved From community acquired pneumonia Completed antibiotic tx Zosyn 10/24, off pressors -Continue Midodrine 10mg TID -Taper down Hydrocortisone ?? Acute hypoxic respiratory failure - Resolved Secondary to CAP Intubated on 10/14 extubated on 10/25 Completed antibiotic 10/24 -Duonebs Q4h prn ?? Pleural effusion Thoracentesis 10/15 - transudative Likely hepatic hydrothorax Monitor ?? Leukocytosis Likely sec to steroids, no evidence of active infection Monitor CBC FEN: Keep K~4, Phos~3, and Mg~2 DVT prophylaxis: Code status: TSL 1 Andrew Ruiz MD PGY-2, Internal Medicine 10/27/2017, 2:58 PM * Elver Askew MD - 10/15/2017 8:11 AM CDT 10/15/2017 Patient seen and examined with Resident. Please see note for further details. I confirm history, exam, assessment and plan. See my note for changes. CC: Acute hypoxic respiratory failure. Brief History: The patient is a 56 year old with HERNANDEZ cirrhosis who was tx from OSH for hyponatemiaand respiratory failure. She was intubated prior to transfer to [facility]. PICC line was placed at OSH for nor epi infusion. OSH 10/11-10/14. Hyponatremia. Large pleural effusion noted on CXR at OSH. Other elements of H&P are reviewed from resident's note. Allergies are noted. Interval History: -On vasopressors and remines intubated. -Diagnostic para and thoracentesis done overnight. Physical Examination: Vitals: 10/14/17 2223 10/15/17 0106 10/15/17 0523 10/15/17 0700 BP: 82/62 Pulse: 99 91 92 Resp: 20 Temp: 98.8 ??F (37.1 ??C) SpO2: 100% 98% 97% Weight: 100 lb 12 oz (45.7 kg) NAD. Intermittently follows commands. Sedated. BL air entry. Coarse breath sounds. Heart is regular, tachycardia. No edema. Lab data including imaging is noted. Assessment: 1. Shock, likely sepsis vs obstructive. 2. Acute hypoxic respiratory failure, intubated 10/14. 3. Left-sided effusion status post thoracentesis. Transudative. 4. Encephalopathy from shock. 5. Tachycardia. 6. Electrolyte problems. 7. Hernandez cirrhosis with ascites. 8. PICC line in place. Plan: Neruo: Wean of sedation and assess mental status. Fentanyl PRN. Cardiology: Echo is done. PICC. A line? On nor epi. On HC 50 mg IV every 8 hours. Midodrine 5 mg POTID. Dilated RV noted on echocardiogram. Respiratory: Assess for liberation once shock resolves. CAP rx. ABG is reviewed. CT PE protocol- rule out PE. Gastrointestinal: NPO at this time. Tube feeding if not extubated in the next 24 hours. GI team to be made aware. Gastrourinary: Johnson in place Hematology and oncology: No transfusion needs. Infectious disease: Continue pip/tazo and vancomycin. Follow cx. Endocrine: Accuchecks. Glycemic control. DVT and GI prophylaxis: Disposition: ICU monitoring. Total critical care time: 40 minutes. Elver Askew M.D., [facility] [employer] Tender of Internal Medicine Division of Pulmonary/Critical Care and Sleep Medicine [facility] * Angella Catherine MD - 10/14/2017 8:38 PM CDT HISTORY AND PHYSICAL Date of admission: 10/14/2017 Today's Date: 10/14/2017 CC: Hyponatremia and acute resp failure Patient is a 56yo F with hx of HERNANDEZ cirrhosis (from cholestatic obstructive disease s/p cholecystectomy 01/2017) complicated by ascites and hypotension, was transferred from [facility] for hyponatremia and acute resp failure leading to intubation on 10/14 before transferring patient to [facility]. Patient came with no paperwork; called the hospital and waiting for the papers to fax in (talked toicu-direct number is [id number]-Fo. [place]). Called and no answer. Paperwork came in later at night; patient presented to OSH on 10/11 with fatigue and SOB. She noted that normally she is able to move around with her wheelchair but since two weeks ago after her trip to [place]; she eels weaker and she has been needing more assistance. AT that time, she reported fever,and unexpected weight loss, nausea and vomit. Patient has had multiple admissions with same presentations in the past. Patient was started on ceftriaxone, and flagyl in the OSH (start date 10/11) for CAP and aspiration pna.She was the started on vancomycin on 10/13. Patient status started to get worse and BP started to drop so she was started onlevophed through her PICC on 10/13 at the rate of 0.18. From nursing sign out from OSH: On labs in OSH, sodium was 115 with improvement to 122 today. Hgb 10.4 after receiving 2 units of blood. Last paracentesis done was on 10/08 and 2.5 L was removed. Chest xray showed effusion on left side. Upon arrival to micu, patient is intubated and sedated. She opens her eyes and follows commands. Onlevophed at the rate of 0.03 through her PICC. Her cxr showed left side effusion; from OSH report this developed on 10/13 and her cxr at the time of admission was normal. Past Medical History: HERNANDEZ cirrhosis Hypotension Past Surgical History: : Cholecystectomy, Laparoscopic No date: PARACENTESIS , 10 DAYS AGO: PARACENTESIS, LARGE VOLUME Comment: 7.5L REMOVED Home Medicactions: Prescriptions Prior to Admission: midodrine (PROAMATINE) 5 MG tablet Take 5 mg by mouth TID. Disp: 60 tablet Rfl: 3 cyclobenzaprine (FLEXERIL) 10 MG tablet Take 10 mg by mouth 3X/day PRN (Muscle Spasms). Disp: Rfl: thiamine (VITAMIN B-1) 50 MG tablet Take 50 mg by mouth DAILY. Disp: 30 tablet Rfl: 5 folic acid (FOLVITE) 1 MG tablet Take 1 mg by mouth DAILY. Disp: 30 tablet Rfl: 5 Vitamins/Minerals TABS Take 1 tablet by mouth DAILY. Disp: Rfl: traMADol (ULTRAM) 50 MG tablet Take 50 mg by mouth q8h PRN (Pain). Disp: Rfl: promethazine (PHENERGAN) 25 MG tablet Take 25 mg by mouth q8h PRN (Nausea). Disp: 90 tablet Rfl: 1 ondansetron (ZOFRAN) 4 MG tablet Take 4 mg by mouth q8h PRN (Nausea). Disp: Rfl: Probiotic Product (ACIDOPHILUS/GOAT MILK) CAPS Take 1 tablet by mouth DAILY. Disp: Rfl: ALPRAZolam (XANAX) 0.5 MG tablet Take 0.25 mg by mouth 3X/day PRN (Insomnia). Disp: Rfl: -- Meperidine -- Other -- MS CHANGES, RESP DEPRESSION Family History: Family History Diabetes - Type 2 Mother Comment: Status: Cardiomyopathy Mother None Known Father Comment: Status: Social History: Social History Marital status: Spouse name: N/A Years of education: N/A Number of children: N/A Occupational History None on file Social History Main Topics Smoking status: Current Every Day Smoker 1.00 Packs/day Smokeless tobacco: Former User Alcohol use No Drug use: No Sexual activity: Not on file Other Topics Concern None on file Social History Narrative None on file Review of Systems Patient is intubated and sedated. Objective: PE: GENERAL: Patient is intubated and sedated. Follows commands. Cachectic. HEENT: No JVD. HEART: Regular rate and rhythm without murmur. LUNGS: Positive for crackles on left lower lobe. ABDOMEN: Distended. No tenderness. EXTREMITIES: No edema, positive for a PICC. Multiple busies on her exts. Family hx: Family History Problem Relation Age of Onset ??? Diabetes - Type 2 Mother Status: ??? Cardiomyopathy Mother ??? None Known Father Status: Social History Social History ??? Marital status: Spouse name: N/A ??? Number of children: N/A ??? Years of education: N/A Occupational History ??? Not on file. Social History Main Topics ??? Smoking status: Current Every Day Smoker Packs/day: 1.00 ??? Smokeless tobacco: Former User ??? Alcohol use No ??? Drug use: No ??? Sexual activity: Not on file Other Topics Concern ??? Not on file Social History Narrative ??? No narrative on file Assessment and plan: Patient is a 56 Yo F with hx of HERNANDEZ cirrhosis complicated by ascites and hypotension, was transferred from [facility] for hyponatremia and acute resp failure leading to intubation on 10/14 before transferring patient to [facility]. Neurological: Intubated and sedated with propofol Follows commands. Cardiovascular: Shock Lactic acidosis - Septic 2/2 pneumonia? On levophed 0.03 at this point through PICC In the morning; levophed 0.4. S/P albumin 5% 25 g Pulmonary: Acute resp failure due to pna - Vanc and zosyn Severe left side effusion - Hemothorax? Infectious process? Mucus plug? - US at bedside; thoracentesis on 10/15: 1350 ml fluid was removed. Exudative. - Confirmed with radiology: ETT and PICC places are ok. GI HERNANDEZ cirrhosis C/B ascites s/p para on 10/08 Ascites - S/P paracentesis on 10/14: no SBP Renal: Hyponatremia - Sodium 115 at the time of admission to OSH and was 122 before transfer - Repeat labs here - ordered urine lytes. Endocrine: No acute issues I.D.: Pneumonia; left side effusion - On ceftriaxone, vanc and flagyl in OSH - Started zosyn and will check vanc random level - Repeat cultures Heme/Onc: Anemia - S/P 2 units of transfusion in OSH - No GIB Msk: No acute issues Lines: PICC-ETT since 10/14. Prophylaxis: PPI. SCDs Diet: NPO Activity: Bed rest Disposition: MICU Code: TSL-1: confirmed with over the phone Angella Catherine MD Associated attestation - Elver Askew MD - 10/15/2017 4:59 PM CDT Patient seen and examined with Resident. Please see note for further details. I confirm history, exam, assessment and plan. See my note for details. 10/15/2017 Elver Askew MD documented in this encounter Procedure Notes * Riaz Warner MD - 11/03/2017 1:53 PM CDTProcedure(s): NC HEMODIALYSIS ONE EVALUATION Procedure : Hemodialysis Indication : JENNIFER , HERNANDEZ cirrhosis and septic shock I have seen and examined patient on dialysis today at 11:45 am Reviewed the dialysis prescription with house staff and power reactor supervisor Increase BFR 300 ml/min, 3 hrs, UF of 1 lit as BP tolerates Pt alert and oriented , OP HD placement in Painter explored Plan HD M -F 3 hrs as OP , will coordinate dialysis with rehab unit * Chun Hidalgo MD - 2017 1:55 PM CDT Nephrology Attending Physician Patient seen by me and examined on CRRT at 1050. Prescription of dialysis adjusted as indicated. Case discussed with house-staff. Successfully extubated Tolerating UF- Continue till end of Cartridge life then switch to HD tunneled dialysis catheter in AM D/W team * Chun Hidalgo MD - 10/25/2017 12:28 PM CDT Nephrology Attending Physician Patient seen by me and examined on CRRT at 10. Prescription of dialysis adjusted as indicated. Case discussed with house-staff. WBC up significantly but patient shows clinical improvement Awake, tolerating UF- planned for extubation today Will stop CRRT post extubation and treat with iHD afterwards as indicated if no renal recovery (no evidence of that today) tunneled dialysis catheter tomorrow if patient stable * Chun Hidalgo MD - 10/24/2017 4:49 PM CDT Nephrology Attending Physician Patient seen by me and examined on CRRT at 1030. Prescription of dialysis adjusted as indicated. Case discussed with house-staff. - Off pressors - Tolerating UF - Edema much improved - Awake, intubated Will continue CRRT with volume removal until extubated as tolerated iHD as indicated after that * Chun Hidalgo MD - 10/23/2017 2:30 PM CDT Nephrology Attending Physician Patient seen by me and examined on CRRT at 1015. Prescription of dialysis adjusted as indicated. Case discussed with house-staff. Continues to tolerate UF with negative fluid balance in preparation for extubation. No UO with no evidence of renal recovery Dialysis CRRT dose acceptable for now. * Chun Hidalgo MD - 10/22/2017 1:36 PM CDT Nephrology Attending Physician Patient seen by me and examined on CRRT at 1030. Prescription of dialysis adjusted as indicated. Case discussed with house-staff. Remains intubated Tolerating UF Edema vastly reduced: slowed down UF to 125 cc/hour Appears weak / lethargic * Chun Hidalgo MD - 10/21/2017 12:29 PM CDT Nephrology Attending Physician Patient seen by me and examined on CRRT at 1030 Still on pressors Well dialyzed with hypophosphatemia - will decrease DF to 0.75 liters/hour from 1 liter / hour Prescription of dialysis adjusted as indicated. Case discussed with house-staff. * Chun Hidalgo MD - 10/20/2017 12:15 PM CDT Nephrology Attending Physician Patient seen by me and examined on CRRT at 1015. Well dialyzed; will decrease CRRT dose and try to increase UF if tolereated Prescription of dialysis adjusted as indicated. Case discussed with house-staff. * Mireya Magana DO - 10/19/2017 3:55 PM CDT Paracentesis Procedure Note Indications: Ascites Surgeon: Mireya Magana DO Assistants: Dr. Linares Procedure Details Consent: Informed consent was obtained. Risks of the procedure were discussed including: infection,bleeding, and possible viscera perforation. Time-Out Process performed, verified patient identification, verified procedure, verified side, verified correct patient position, special equipment/implants available. Paracentesis site right abdomen determination was identified by bedside ultrasound. Fluid was obtained without any difficulties and minimal blood loss. A dressing was applied to the wound. Bedside Ultrasound: Bedside ultrasound guidance used to identify the ascitic fluid during the procedure. Findings 3000 ml of cloudy paracentesis fluid was obtained. A sample was sent to Pathology for cytology, microbiology, chemistry examination. Complications: None; patient tolerated the procedure well. Attending Attestation: This procedure was performed independently of the time included in today's admission/progress note(s). This procedure was performed under the direct supervision of Dr. Tellez,who was present for part of the procedure. Associated attestation - Reuben Tellez MD - 10/19/2017 4:46 PM CDT I directly supervised critical components of procedure and was immediatley available for entire procedure. Site marked with ultrasound. Cloudy, non-bloody fluid. Sent for diagnostic studies 3L. * Chun Hidalgo MD - 10/19/2017 1:17 PM CDT Nephrology Attending Physician Patient seen by me and examined on CRRT at 1115. Prescription of dialysis adjusted as indicated. Case discussed with house-staff. Continues to be anuric and hypotensive * Singh Odell MD - 10/18/2017 12:33 PM CDTProcedure(s): CENTRAL LINE NOTE Central Venous Catheter Insertion Procedure Note Procedure: Insertion of Central Venous Catheter Indications: renal failure Surgeon: Singh Odell MD Procedure Details Informed consent was obtained for the procedure, including possible sedation. Risks of lung perforation, hemorrhage, infection, arrhythmia, and adverse drug reaction were discussed. Time-Out Process performed, verified patient identification, verified procedure, verified site/side, verified correct patient position, special equipment/implants available. The skin above the leftinternal jugular vein was prepped with chlorhexidine. Under sterile conditions (hand hygiene prior to donning gloves, gown, mask, sterile drape), maximal barrier precautions (mask, hat, sterile gloves and gown for the person performing the procedure and full body drape on thepatient) were utilized. Local anesthesia was infiltrated into the skin and subcutaneous tissues. [id number] needle was inserted intothe vein. A guide wire was easily inserted through the needle. While inserting the guide wire ventricular tachycardia requiring adjustment of the wire occurred. The needle was withdrawn over the guide wire. A scalpel was used to puncture the skin entry site to facilitate catheter insertion. The dilator was passed over the guide wire and removed. A dialysis catheter was inserted into the vessel over the guide wire. The guide wire was removed. Catheter was aspirated for blood, flushed, and secured with suture. A sterile dressing was applied to the catheter. Ultrasound Guidance: yes Complications: None; patient tolerated the procedure well. Condition: Gaurded. Recommendations: CXR ordered to verify placement. Attending Attestation:This procedure was performed independently of the time included in today's admission/progress note(s). Singh Odell Pulmonary and Critical Care Fellow, PGY-5 [facility] Division of Pulmonary, Critical Care and Sleep Medicine * Mireya Magana DO - 10/16/2017 3:44 PM CDT Arterial Catheter Insertion Procedure Note Indications: yes, Hypotension, Titration of vasoactive medication and Frequent blood sampling Surgeon: Mireya Magana DO, Stephanie Cull, MD Assistants: Tia Black MD Procedure Details Informed consent was obtained for the procedure from pt's over the phone. Risks of hemorrhage, infection were discussed. Time-Out Process performed, verified patient identification, verified procedure, verified site/side, verified correct patient position, special equipment/implants available. Under sterile conditions (hand hygiene prior to donning gloves, gown, mask, sterile drape), the skin above the left radial artery was prepped with chlorhexidine. On the third trial, a 21-gauge needlewas inserted into the artery. A guide wire was easily inserted through the needle. The needle was wi thdrawn over the guide wire. The arterial catheter was advanced over the guide wire and the guide wire was removed. The arterial catheter was connected to the pressure tubing for the system. The catheter was flushed and the tracing was adequate. The catheter was sutured in place and a sterile chlorhexidine dressing was applied. Complications: None; patient tolerated the procedure well. Condition: stable . Mireya Magana DO 10/16/2017 3:45 PM Associated attestation - Elver Askew MD - 10/17/2017 8:11 AM CDT Not present * Crow Hatfield DO - 10/15/2017 3:14 AM CDT Thoracentesis Procedure Note Indications: large L pleural effusion / shock with concern for empyema Jacker Feeder: none Sedation/Anesthesia: None and local 1% buffered lidocaine Procedure Details Consent: Informed consent was obtained. Risks of the procedure were discussed including: infection,bleeding, pain, pneumothorax. Time-Out Process performed, verified patient identification, verified procedure, verified site/side, verified correct patient position, special equipment/implants available. Thoracentesis site anterior, lateral, left determination was identified by bedside ultrasound. Sterile procedures employed-hand hygiene prior to donning gloves, gown, mask, and sterile barrier drape. Chlorhexidine solution was applied to the site. Medication used to anesthetize left lateral 6 rib space: 1% buffered lidocaine. A thoracentesis catheter was advanced into the pleural space without difficulty and the catheter was advanced over the needle and the needle was withdrawn. Fluid was obtained without any difficulties andminimal blood loss. The catheter was then removed and a dressing was applied to the insertion site. Findings 1350 ml of serous pleural fluid was obtained. A sample was sent to Pathology for cytology, microbiology, pH and chemistry examination. Complications: None; patient tolerated the procedure well. Plan Chest x-ray ordered. * Angella Catherine MD - 10/15/2017 12:26 AM CDT Paracentesis Procedure Note Indication: Ascites Senior Accounting Analyst: Angella Catherine MD Jacker Feeder: None Procedure: Indications, risks, benefits, and alternative interventions were explained to patient's and informed consent was obtained from the over the phone. A time out was performed to identify correct patient, correct procedure, and correct side. Bedside ultrasound was used to identify an appropriate location with a large peritoneal effusion pocket in LLQ region. Patient was prepped and draped in a sterile manner. 20 ml of 1% lidocaine was used to anesthetize the skinand subcutaneous tissue. After a small skin sammy by a scalpel, a Dyzu-Z-Ckikalqbupai needle with catheter wasintroduced through the skin incision into the peritoneal space using negative pressure with return of a yellow coloredascitic fluid. Needle was removed with catheter in place and approximately 50 cc of ascitic fluid was removed. Catheter was removed and no immediate complications were noted during the procedure. Aspirated ascitic fluid was sent for routine studies. Patient tolerated the procedurewell. Complications: None observed. Consent was obtained from patient's over the phone. Witnessed by Dr. Hatfield. Associated attestation - Elver Askew MD - 10/15/2017 4:59 PM CDT Not present documented in this encounter Consult Notes * Ray Stuart MD - 11/02/2017 4:16 PM CDTAssociated Order(s): IP CONSULT TO OPHTHALMOLOGY Ophthalmology Consult Note [facility] 11/02/2017 7:30 PM Patient: Rosa Li Age: 57 y.o. Date of : 1960 Date of Admission: 10/14/2017 No chief complaint on file. No past medical history on file. Family History Problem Relation Age of Onset ??? Diabetes - Type 2 Mother Status: ??? Cardiomyopathy Mother ??? None Known Father Status: Current Facility-Administered Medications Medication Dose Route Frequency Provider Last Rate Last Dose ??? [START ON 11/03/2017] hydrocortisone (CORTEF) tablet 5 mg 5 mg Oral QDAY Andrew Ruiz MD ??? heparin injection 4,100 Units 4,100 Units Intracatheter post-Procedure multiple Alejo Agustin MD 4,100 Units at 11/01/17 1609 ??? midodrine (PROAMATINE) tablet 15 mg 15 mg Oral q8h Andrew Ruiz MD 15 mg at 11/02/17 1459 ? ? insulin aspart (NovoLOG) pen 0-6 Units 0-6 Units Subcutaneous 4X/day - AC & HS Elliot Villaseñor MD ??? camphor-menthol (SARNA) lotion Topical TID PRN Elliot Villaseñor MD ??? lactulose (CHRONULAC) solution 10 g 10 g Oral BID 0900 and 1500 Elliot Villaseñor MD 10 g at 11/02/17 0818 ??? pantoprazole EC (PROTONIX) tablet 40 mg 40 mg Oral QDAY Kings Christensen MD 40 mg at 818 ??? QUEtiapine (SEROquel) tablet 25 mg 25 mg Oral AT BEDTIME Reuben Tellez MD 25 mg at 11/01/172121 ??? 0.9% NaCl infusion for blood 250 mL Intravenous Once PRN Hai Gentile MD ??? glucose (Diabetic Use) oral gel Oral PRN Angella Catherine MD ??? dextrose IV 12.5-25 g 25-50 mL Intravenous PRN Angella Catherine MD ??? glucagon (GLUCAGEN) injection 1 mg 1 mg Intramuscular PRN Angella Catherine MD ??? albuterol-ipratropium (DUO-NEB) nebulizer solution 3 mL 3 mL Inhalation q4h PRN Angella Catherine MD Allergies Allergen Reactions ??? Meperidine Other MS CHANGES, RESP DEPRESSION Social History Substance Use Topics ??? Smoking status: Current Every Day Smoker Packs/day: 1.00 ??? Smokeless tobacco: Former User ??? Alcohol use No HPI: Rosa Li is a 57 y.o. 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 Pt is transferred to [facility] for hyponatremia, respiratory failure and septic shock leading to intubation on 10/14, anuric JENNIFER on hemodialysis. Ophthalmology is consulted to evaluate for Anastasiya Marion rings. Ceruloplasmin low at 12 on 10/28/17. Unable to obtain urine copper due to current anuric state. Pt denies recent change in vision. No flashes or floaters. Glasses updated 2 years prior. She reports stable blurred vision in current glasses. Pt is not encephalopathic. Pt has lost ~80lb over the last year and reports weakness. Otherwise no acute neurologic or psychiatric change. Ophthalmic ROS: Negative beyond pertinent positives and negatives in HPI Past Ocular History: As per HPI Base Eye Exam Visual Acuity (liliana near) Right Left Near sc J3 w/ ph J2 w/ ph Tonometry (Tonopen, 4:19 PM) Right Left Pressure 17 18 Pupils Dark Light React APD Right 6 4 3+ None Left 6 4 3+ None Visual Ying (Counting fingers) Left Right Result Full Full Extraocular Movement Right Left Result Full Full Dilation Both eyes: 1.0% Mydriacyl, 2.5% Mateo Synephrine @ 4:19 PM Slit Lamp and Fundus Exam External Exam Right Left External cachectic; ecchymosis on arms and left side of face Slit Lamp Exam Right Left Lids/Lashes Normal Normal Conjunctiva/Sclera White and quiet, non-icteric White and quiet, non-icteric Cornea Clear, no KF ring seen with portable slit lamp Clear, no KF ring seen with portable slit lamp Anterior Chamber Deep and quiet Deep and quiet Iris Round and reactive Round and reactive Lens 1+ NS 1+ NS Vitreous Normal Normal Fundus Exam Right Left Disc Normal Normal C/D Ratio 0.5 0.5 Macula Normal Normal Vessels Normal Normal Periphery Normal Normal Assessment/Plan: Rosa Li is a 57 y.o. female # Cirrhosis, ?secondary to HERNANDEZ - pt with atypical features of HERNANDEZ - No KF ring seen on exam - low ceruloplasmin; however other disease states may cause low levels including inflammatory disorders (as it is an acute phase reactant), malnutrition or nephrotic syndrome - AST/ALT >2.2 plus alkphos/total bilirubin<4 when combined has 100% sensitivity and specificity for diagnosis of Brian's (Demetrius, et al. 2008) - this patient does not achieve either ratio value with most recent labs Page ophthalmology with any questions. Tashia Brown MD Ophthalmology Resident, PGY-3 7:30 PM Resident exam reviewed. Agree with plan. Not seen by this attending on DOS. Dr. Stuart * Nano Fofana RN - 11/01/2017 2:49 PM CDTAssociated Order(s): IP CONSULT TO SKIN CARE NURSE Re consulted from nursing to see patient for coccyx wound. Patient previously seen and had an area of concern that was present on admission bruise versus evolving DTI. On assessment the wound has evolved and is now a .7 x 1 cm yellow colored wound over coccyx, consistent with unstagable pressure injury that was present on admission. Patient also with erythema and shallow small ulcerations to groin and perineum, with ongoing incontinence. Heels are intact. Arms, chest and neck with deep bruises,multiple lacerations and skin tears to arms present, some healing others new. Patient is on a versap 500 bed, is turned from side to side with TAP and wedges. Please continue all of the above, continue the use of zinc touch less spray and aloe [place] ointment to coccyx and perineum q shift and prn with incontinence. Please off load heels at all times and avoid placing patient supine in bed. Provide with chair cushion for pressure relief when OOB. Above discussed with patient and nurseMae. Reconsult with any new needs. * Nano Fofana RN - 10/18/2017 3:11 PM CDTAssociated Order(s): IP CONSULT TO WOUND NURSE Received a consult from nursing to see patient for a low Jerardo score and an area of concern to sacrum. Patient was admitted with a sacral non blanching red area on her sacrum and multiple bruises toarms/chest and trunk. Platelets less than 100. Concerns for the sacrum being a bruise from low platelets versus an evolving deep tissue injury. Will continue current care and follow patient. Continuetotal care sport bed, continue side to side turns with TAP and wedges, off loading heels with heel boots. Continue to cleans sacrum with soap and water, pat dry, apply large Mepielx sacral, change q 3 days and prn. Please date and time the mepilex and do not remove between dressing changes.Above discussed with nurse, Sun and patient turned to her right side. * Alejo Agustin MD - 10/17/2017 4:22 PM CDT NEPHROLOGY CONSULT Patient Name: Rosa Li Date of Admission:10/14/2017 8:26 PM REFERRING TEAM PHYSICIAN: REASON FOR CONSULT: Acute renal failure HISTORY OF PRESENT ILLNESS: limited due to patient condition. History taken from chart Rosa Li is a 56 y.o. 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 She was transferred from [facility] for hyponatremia and acute resp failure leading to intubation on 10/14 before tr ansferring patient to [facility]. As per chart review, patient presented to OSH on 10/11 with fatigue and SOB. She noted that normallyshe is able to move around with her wheelchair but since two weeks ago, she was feeling weaker. At that time, she reported fever,and unexpected weight loss, nausea and vomit. Patient was started on ceftriaxone, and flagyl in the OSH (start date 10/11) for CAP and aspiration pna.She was the started on vancomycin on 10/13. Patient status started to get worse and BP started to drop, so she was startedon levophed through her PICC on 10/13 at the rate of 0.18. On labs in OSH, sodium was 115 with improvement to 122 today. Hgb 10.4 after receiving 2 units of blood. Upon arrival to MICU, patient was intubated and sedated, on levophed at the rate of 0.03 through her PICC. Her cxr showed left side effusion. Patient has continued to require levophed but titrating down, continued broad spectrum abx changed to vanc/zosyn for suspected PNA - sputum without growth. CT PE showing no PE but b/l GGOs suggesting infection. Thoracentesis was transudate. Admission Na [id number], and is persistently low here. Admitted with JENNIFER but worsening despite treating sepsis. Nephrology was consulted for worsening renal function with increasing creatinine to 2, [id number], acidosis CO2 11. Her urine output has been very low, 31 ml during the last 24 hours. Status of chronic conditions: JENNIFER Evaluation: (Non-ESRD) Hypotension inpatient reason: septic shock on pressors Contrast Exposure: CT with IV contrast or None Drug Exposure inpatient: Vancomycin, Zosyn, Rocephin Itching, rash, serum or urine eosinophilia: None Urine output and possibility of obstruction: poor, johnson catheter in place REVIEW OF SYSTEMS: limited due to patient condition General: No fever/ chills, weight loss, fatigue, change in appetite. Eyes: No icterus. No blurry vision Respiratory: No cough, shortness of breath, dyspnea on exertion. Cardiovascular: No Chest pain, orthopnea, PND. GI: No nausea, vomiting, diarrhea, abdominal pain. : No dysuria, hematuria, frequency. Musculoskeletal: No change in gait, joint pains. Skin: No itching, no skin rash. Neuro: No headaches, dizziness, limb weakness. Psych: No delusions or hallucinations Rest of the review of systems was negative except as mentioned above. PAST MEDICAL HISTORY: No past medical history on file. PAST SURGICAL HISTORY: Past Surgical History: : Cholecystectomy, Laparoscopic No date: PARACENTESIS , 10 DAYS AGO: PARACENTESIS, LARGE VOLUME Comment: 7.5L REMOVED SOCIAL HISTORY: Social History Marital status: Spouse name: Years of education: Number of children: Social History Main Topics Smoking status: Current Every Day Smoker Packs/day: 1.00 Years: 0.00 Smokeless status: Former User Alcohol use: No Drug use: No FAMILY HISTORY: Family History Diabetes - Type 2 Mother Comment: Status: Cardiomyopathy Mother None Known Father Comment: Status: ALLERGIES: -- Meperidine -- Other -- MS CHANGES, RESP DEPRESSION MEDS: midodrine 15 mg Oral q8h albumin human 50 g Intravenous QDAY phytonadione (AQUA-MEPHYTON) in 50 mL custom IVPB 10 mg Intravenous QDAY lactulose 10 g Oral TID insulin aspart 0-6 Units Subcutaneous q4h hydrocortisone sodium succinate PF 50 mg Intravenous q8h chlorhexidine Mouth/Throat BID perflutren Lipid Microsphere 0.5 mL Intravenous intra-Procedure multiple polyethyl glycol-propyl glycol 1 drop Each Eye q8h heparin 5,000 Units Subcutaneous q8h pantoprazole 40 mg Intravenous QDAY piperacillin-tazobactam 3.375 g Intravenous q8h VITALS: Vitals: 10/17/17 10/17/17 10/17/17 10/17/17 0400 0500 0600 0700 BP: Pulse: 68 73 69 72 Resp: 18 (!) 33 18 20 Temp: 96.8 ??F (36 ??C) SpO2: 96% 91% 98% 99% Weight: 48 kg (105 lb 13.1 oz) Estimated body mass index is 20.67 kg/(m^2) as calculated from the following: Height as of this encounter: 1.524 m (5'). Weight as of this encounter: 48 kg (105 lb 13.1 oz). I/O: Intake/Output Summary (Last 24 hours) at 06/03/18 1622 Last data filed at 10/17/17 0700 Gross per 24 hour Intake 1491.3 ml Output 12 ml Net 1479.3 ml PHYSICAL EXAM: General: female, lying in bed, intubated, sedated, NAD. HEENT: NT/NC, MMM. Neck: no JVD, no LAD, no thyromegaly. Respiratory: lungs clear bilaterally, no crackles/wheezes. Decreased respiratory sounds in right base CVS: RRR, S1 S2 heard, no murmurs. Abdomen: Soft, Non-tender, non-distended, abdomen wall edema, bowel sounds audible. Musculoskeletal: No joint swelling. 1+ pedal edema. Neuro: Unresponsive, mechanical ventilation. Skin: no rash, no cyanosis LAB: Recent Labs Component Name 10/17/17 0419 10/16/17 0351 10/15/17 0422 10/14/17 2220 08/08/17 0502 08/08/17 0502 08/07/17 0142 08/06/17 1129 HGB 10.0* 10.9* 8.8* 10.9* - 8.9* - - - 11.8* WBC 13.6* 18.0* 15.8* 14.2* - 5.3 - - - 8.8 PLT 122* 185 177 186 - 390 - - - 579* HCT 28.1* 30.0* 24.6* 30.9* - 25.2* - - - 32.4* MCV 87.3 87.0 88.5 88.3 - 89.7 - - - 87.3 PT - - 36.2* 26.5* 15.3* - - 17.1* - 14.3 INR - - 3.7 2.5 1.2 - - 1.4 - 1.1 - = values in this interval not displayed. Recent Labs Component Name 10/17/17 1145 10/17/17 0419 10/16/17 2051 10/16/17 1254 10/16/17 0351 10/14/17 2239 10/14/17 2220 08/08/17 0502 08/07/17 0142 BUN 22 20 19 19 18 - - 16 14 - 16 CREATININE 2.0* 2.0* 1.8* 1.7* 1.4* - - 1.3* 0.9 - 0.8 NA 122* 123* 122* 122* 120* - - 119* 128* - 126* K - - - - - - 3.4* - - - - CL 97* 100 99 97* 95* - - 97* 97* - 98 CO2 11* 10* 11* 13* 12* - - 11* 22 - 22 CALCIUM 9.0 9.1 8.9 8.9 8.5 - - 8.4 7.8* - 6.6* GLU 234* 137* 125* 197* 237* - - 242* 91 - 95 PHOS - - - - - - - 3.3 3.5 - 3.3 - = values in this interval not displayed. Recent Labs Component Name 10/17/17 0419 10/16/17 0351 10/15/17 0422 08/08/17 0502 08/07/17 0142 ALB 3.0* 3.5 4.3 1.9* 1.2* TBILI 1.9* 1.8* 0.9 0.7 0.4 ALT 16 15 6 13 7 AST 53* 59* 23 28 22 Invalid input(s): PHART, [id number], PO2ART, [id number] Urinalysis: on 10/15/17: Sp gravity 1030. WBC mor than 100, may be related with johnson catheter FeNa less that 0.36 CXR: An endotracheal tube terminates in the midthoracic trachea. A nasogastric/orogastric tube loops and terminates in the proximal stomach. A right upper extremity peripherally inserted catheter tip overlies the superior cavoatrial junction. ?? Diffuse bilateral interstitial and airspace opacities, right greater than left, may represent pneumonia and/or pulmonary edema. Small effusions may contribute. No pneumothorax is identified. The cardiomediastinal silhouette is partially obscured. CT Angio Chest 10/15: 1. No evidence of pulmonary embolism, however, [...] hepatic segment 8 likely representing a hemangioma. ASSESSMENT: Non-oliguric Acute renal failure, likely secondary to ATN due to septic shock Rhabdomyolysis Metabolic acidosis Hyperkalemia Hyperphosphatemia Recommendations/Plan: - Will initiate Hemodialysis/CVVHD today after Wang catheter placement. - Monitor iCa, Ph, Mg, K levels q 6-8h and replace as needed while on CRRT. - Urine sediment microscopy noted for granular casts, hyaline casts, RBC and WBC. - Continue IV fluids with NaHCO3 @ 150 cc/hr and monitor urine output closely - Avoid Nephrotoxic agents, IV contrast, CINDA I or ARB, NSAID's - Monitor Renal function closely and replace electrolytes as required - Continue IV antibiotics, Vancomycin and Zosyn renally dosed for eGFR < 15. Monitor Vancomycin trough levels daily. - Keep MAP > 65 mm Hg for renal perfusion. - Consider Nephrotic proteinuria work up including MARILEE, Anti-DS DNA, Anti-Hahn Ab, SS-A and SS-B Antibodies, Hepatitis panel, HIV, ASO titers, Anti-GBM, Complement levels, Cryoglubulins, SPEP and UPEP, Serum light chain ratio, ACNA titers - Consider Renal biopsy/Tunneled catheter placement Contact Info: (POA) # . Patient seen and examined at the bedside, plan of care discussed with the attending, Dr. Mckeon. Thank you for the consult. We will continue to follow the patient with you. Please do not hesitate to contact us with further questions. Alejo Alejo MD. Nephrology Fellow. # [phone]. Associated attestation - Chun Hidalgo MD - 10/18/2017 12:38 PM CDT Nephrology Attending Physician I have seen and examined the patient with house-staff on rounds at 10 AM. I agree with the house-staff note with the additions/modificiations listed below. History: Hx from chart 56 year old woman with HERNANDEZ cirrhosis with recurrent ascites, transferred from another hospital in septic shock (due to ? Pneumonia) , hyponatremia and JENNIFER (BL Cr 0.8). She has been needing pressors for pressure support in addition to mechanical ventilation. Initial workup: Imaging of kidneys (limited abdominal US , Rt kidney with increased echogenicity but no hydronephrosis)- upper part of left kidney appears normal on chest CT- Urine Na < 20, UA suggestive of UTI. TTE 05/2017, EF 55% Interval History: Remains on pressors Oligoanuric Barely responsive, at bedside this morning MEDS: hydrocortisone sodium succinate PF 50 mg Intravenous q12h 0.9% NaCl phenylephrine phenylephrine 100 mcg Intravenous Once midodrine 15 mg Oral q8h lactulose 10 g Oral TID insulin aspart 0-6 Units Subcutaneous q4h chlorhexidine Mouth/Throat BID perflutren Lipid Microsphere 0.5 mL Intravenous intra-Procedure multiple polyethyl glycol-propyl glycol 1 drop Each Eye q8h heparin 5,000 Units Subcutaneous q8h pantoprazole 40 mg Intravenous QDAY piperacillin-tazobactam 3.375 g Intravenous q8h ROS, Fam Hx, SHx etc, limited by patient being intubated on mechanical ventilation Exam/Data : Recent Labs 10/18/17 0434 10/17/17205510/17/17 1654 10/17/17 1145 10/17/17 0419 10/16/17 2051 10/16/17 0351 BUN 23 22 22 20 19 18 CREATININE 2.2 H 2.1 H 2.0 H 2.0 H 1.8 H 1.4 H NA 124 L 123 L 122 L 123 L 122 L 120 L POTASSIUM 3.7 3.5 3.9 4.0 4.3 4.3 CL 96 L 95 L 97 L 100 99 95 L CO2 12 L 14 L 11 L 10 L 11 L 12 L CALCIUM 9.1 9.0 9.0 9.1 8.9 8.5 MAGNESIUM 1.8 1.6 2.0 PHOS 2.5 3.1 HGB 9.4 L 10.0 L 10.9 L WBC 13.7 H 13.6 H 18.0 H PLT 87 L 122 L 185 = values in this interval not displayed. ] Vitals: 10/18/17 1000 10/18/17 1100 10/18/17 1155 10/18/17 1200 BP: 94/65 (!) 74/57 (!) 77/56 Pulse: 60 66 65 65 Resp: 20 21 21 21 Temp: SpO2: 92% 94% 96% 96% Weight: Estimated body mass index is 21.96 kg/(m^2) as calculated from the following: Height as of this encounter: 1.524 m (5'). Weight as of this encounter: 51 kg (112 lb 7 oz). 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 OPERATIONS MANAGER with CRRT is indicated (D/W team and ) documented in this encounter Miscellaneous Notes * Research Note - Chandu Bardales MD - 10/22/2017 5:06 PM CDT 10/22/17 Study title: Hemodynamic effects of blood flow variation in continuous renal replacement therapy IRB #: [id number] Screen Tacker: Reuben Tellez MD Form Completed by: Chandu Bardales MD Study completed without any significant hemodynamic changes or events. Patient tolerated it very well. All settings returned to prior values. Noreip will be titrated off by RN. at bedside throughout and all questions answered. Chandu Bardales MD 10/22/17 5:07 PM * Research Note - Chandu Bardales MD - 10/22/2017 4:15 PM CDT .10/22/17 Study title: Hemodynamic effects of blood flow variation in continuous renal replacement therapy IRB #: [id number] Screen Tacker: Reuben Tellez MD Form Completed by: Chandu Bardales MD Purpose of the study, risks, and benefits were discussed with the patient and/or the designated surrogate decision maker. Copy of the informed consent form was provided. Subject met all inclusion and exclusion criteria. The subject and/or designated surrogate agreed to take part in the study and signed informed consent and HIPAA release forms in my presence, prior to initiation of study protocol. A copy of the informed consent has been given to the subject. Chandu Bardales MD 10/22/17 4:15 PM documented in this encounter Plan of Treatment Not on file documented as of this encounter Procedures Procedure Name Priority Date/Time Associated Diagnosis Comments CARDIAC PROCEDURE ORDER 11/09/19 6:53 PM CDT CARDIAC EKG ORDER 11/08/2017 6:5 3 PM CDT GLUCOSE - POINT OF CARE Routine 11/04/19 2:37 PM CDT GLUCOSE - POINT OF CARE Routine 11/04/19 12:57 PM CDT GLUCOSE - POINT OF CARE Routine 11/04/19 8:28 AM CDT PT-INR [facility] AM Draw 11/03/2017 7:27 AM CDT RBC MORPHOLOGY Routine 11/03/2017 7:27 AM CDT CBC W AUTO DIFFERENTIAL Routine 11/04/19 7:27 AM CDT COMPREHENSIVE METABOLIC PANEL Routine 11/03/2017 7:27 AM CDT HEMODIALYSIS INPATIENT Routine 8 7:22 AM CDT GLUCOSE - POINT OF CARE Routine 11/03/19 9:18 PM CDT GLUCOSE - POINT OF CARE Routine 11/03/19 5:58 PM CDT GLUCOSE - POINT OF CARE Routine 11/03/19 12:52 PM CDT GLUCOSE - POINT OF CARE Routine 11/03/19 8:06 AM CDT PT-INR [facility] AM Draw 11/02/2017 6:46 AM CDT RBC MORPHOLOGY Routine 11/02/2017 6:46 AM CDT CBC W AUTO DIFFERENTIAL Routine 11/03/19 6:46 AM CDT COMPREHENSIVE METABOLIC PANEL Routine 11/02/2017 6:46 AM CDT PHOSPHORUS BLOOD Routine 11/02/2017 6:46 AM CDT GLUCOSE - POINT OF CARE Routine 11/02/19 9:00 PM CDT GLUCOSE - POINT OF CARE Routine 11/02/19 5:27 PM CDT GLUCOSE - POINT OF CARE Routine 11/02/19 8:34 AM CDT PT-INR [facility] AM Draw 11/01/2017 6:29 AM CDT DIFFERENTIAL MANUAL Routine 11/01/2017 6 :29 AM CDT CBC W AUTO DIFFERENTIAL Routine 11/02/19 6:29 AM CDT COMPREHENSIVE METABOLIC PANEL Routine 11/01/2017 6:29 AM CDT GLUCOSE - POINT OF CARE Routine 11/01/19 9:30 PM CDT HEMODIALYSIS INPATIENT Routine 8 2:32 PM CDT GLUCOSE - POINT OF CARE Routine 11/01/19 12:12 PM CDT GLUCOSE - POINT OF CARE Routine 11/01/19 7:50 AM CDT PT-INR [facility] AM Draw 10/31/2017 5:12 AM CDT TISSUE TRANSGLUTAMINASE AB IGA AM Draw 10/31/2017 5:12 AM CDT DIFFERENTIAL MANUAL Routine 10/31/2017 5 :12 AM CDT CBC W AUTO DIFFERENTIAL Routine 11/01/19 18 5:12 AM CDT CORTISOL BLOOD AM Timed 10/31/2017 5:1 2 AM CDT COMPREHENSIVE METABOLIC PANEL Routine 10/31/2017 4:04 AM CDT CORTISOL BLOOD AM Timed 10/31/2017 4:0 4 AM CDT GLUCOSE - POINT OF CARE Routine 11/01/19 12:10 AM CDT GLUCOSE - POINT OF CARE Routine 10/31/19 8:05 PM CDT GLUCOSE - POINT OF CARE Routine 10/31/19 6:16 PM CDT PANCREATIC ELASTASE FECES Routine 10/30/2017 3:28 PM CDT GLUCOSE - POINT OF CARE Routine 10/31/19 18 12:49 PM CDT GLUCOSE - POINT OF CARE Routine 10/31/19 8:55 AM CDT GLUCOSE - POINT OF CARE Routine 10/31/19 6:53 AM CDT PT-INR [facility] AM Draw 10/30/2017 5:53 AM CDT DIFFERENTIAL MANUAL Routine 10/30/2017 5 :53 AM CDT CBC W AUTO DIFFERENTIAL Routine 10/31/19 5:53 AM CDT COMPREHENSIVE METABOLIC PANEL Routine 10/30/2017 5:53 AM CDT GLUCOSE - POINT OF CARE Routine 10/30/19 9:45 PM CDT FL SWALLOWING FUNCTION STUDY Routine 10/29/2017 2:15 PM CDT JENNIFER (acute kidney injury) (HCC) GLUCOSE - POINT OF CARE Routine 10/30/19 18 11:53 AM CDT GLUCOSE - POINT OF CARE Routine 10/30/19 18 6:14 AM CDT RBC MORPHOLOGY Routine 10/29/2017 5:39 AM CDT CBC W AUTO DIFFERENTIAL Routine 10/30/19 5:39 AM CDT PTT [facility] AM Draw 10/29/2017 12:08 AM CDT PT-INR [facility] AM Draw 10/29/2017 12:08 AM CDT CBC W/O DIFFERENTIAL Routine 10/29/2017 12:08 AM CDT COMPREHENSIVE METABOLIC PANEL Routine 10/29/2017 12:08 AM CDT HEPATIC FUNCTION PANEL AM Draw 8 12:08 AM CDT GLUCOSE - POINT OF CARE Routine 10/29/19 18 11:44 PM CDT GLUCOSE - POINT OF CARE Routine 10/29/19 18 4:46 PM CDT HEMODIALYSIS INPATIENT Routine 8 3:39 PM CDT FL SWALLOWING FUNCTION STUDY Routine 10/28/2017 2:51 PM CDT Septic shock (HCC) IR CENTRAL LINE INSERT TUNNEL Routine 10/28/2017 2:42 PM CDT JENNIFER (acute kidney injury) (HCC) GLUCOSE - POINT OF CARE Routine 10/29/19 18 11:25 AM CDT TYPE + SCREEN PANEL STAT 10/28/2017 8 :51 AM CDT HEMOGLOBIN STAT 10/28/2017 8:45 AM CDT GLUCOSE - POINT OF CARE Routine 10/29/19 18 6:38 AM CDT PTT [facility] AM Draw 10/28/2017 5:31 AM CDT PT-INR [facility] AM Draw 10/28/2017 5:31 AM CDT MITOCHONDRIAL ANTIBODY SCREEN AM Draw 10/28/2017 5:31 AM CDT CERULOPLASMIN AM Draw 10/28/2017 5:31 AM CDT VITAMIN D 1,25 DIHYDROXY AM Draw 018 5:31 AM CDT SMOOTH MUSCLE ANTIBODY AM Draw 8 5:31 AM CDT RBC MORPHOLOGY Routine 10/28/2017 5:31 AM CDT CBC W AUTO DIFFERENTIAL Routine 10/29/19 18 5:31 AM CDT COMPREHENSIVE METABOLIC PANEL Routine 10/28/2017 5:31 AM CDT PHOSPHORUS BLOOD Routine 10/28/2017 5:31 AM CDT GLUCOSE - POINT OF CARE Routine 10/29/19 18 1:17 AM CDT GLUCOSE - POINT OF CARE Routine 10/28/19 18 9:14 PM CDT GLUCOSE - POINT OF CARE Routine 10/28/19 18 5:29 PM CDT ECHO LIMITED OR FOLLOWUP Routine 018 2:21 PM CDT GLUCOSE - POINT OF CARE Routine 10/28/19 18 11:32 AM CDT XR CHEST 1VW PORTABLE Routine 10/27/2017 11:28 AM CDT Pleural effusion GLUCOSE - POINT OF CARE Routine 10/28/19 6:07 AM CDT PTT [facility] AM Draw 10/27/2017 4:11 AM CDT PT-INR [facility] AM Draw 10/27/2017 4:11 AM CDT TROPONIN I Add on 10/27/2017 4:11 AM CDT DIFFERENTIAL MANUAL Routine 10/27/2017 4 :11 AM CDT CBC W AUTO DIFFERENTIAL Routine 10/28/19 4:11 AM CDT B-TYPE NATRIURETIC PEPTIDE AM Draw 10/27/2017 4:11 AM CDT COMPREHENSIVE METABOLIC PANEL Routine 10/27/2017 4:11 AM CDT PHOSPHORUS BLOOD Routine 10/27/2017 4:11 AM CDT MAGNESIUM BLOOD Routine 10/27/2017 4:11 AM CDT GLUCOSE - POINT OF CARE Routine 10/27/19 11:38 PM CDT RENAL FUNCTION PANEL Routine 2017 11:03 PM CDT GLUCOSE - POINT OF CARE Routine 10/27/19 8:10 PM CDT GLUCOSE - POINT OF CARE Routine 10/27/19 18 4:16 PM CDT GLUCOSE - POINT OF CARE Routine 10/27/19 11:55 AM CDT RENAL FUNCTION PANEL Routine 2017 11:52 AM CDT GLUCOSE - POINT OF CARE Routine 10/27/19 7:55 AM CDT PTT [facility] AM Draw 2017 4:24 AM CDT PT-INR [facility] AM Draw 2017 4:24 AM CDT DIFFERENTIAL MANUAL Routine 2017 4 :24 AM CDT CBC W AUTO DIFFERENTIAL Routine 10/27/19 4:24 AM CDT COMPREHENSIVE METABOLIC PANEL Routine 2017 4:24 AM CDT RENAL FUNCTION PANEL Routine 2017 4:24 AM CDT MAGNESIUM BLOOD Routine 2017 4:24 AM CDT GLUCOSE - POINT OF CARE Routine 10/27/19 18 4:21 AM CDT GLUCOSE - POINT OF CARE Routine 10/27/19 18 12:07 AM CDT RENAL FUNCTION PANEL Routine 10/25/2017 9:49 PM CDT XR ABDOMEN KUB Routine 10/25/2017 9:22 PM CDT Abdominal pain, unspecified abdominal location GLUCOSE - POINT OF CARE Routine 10/26/19 18 8:14 PM CDT GLUCOSE - POINT OF CARE Routine 10/26/19 18 5:32 PM CDT COMPLEMENT C4 STAT 10/25/2017 12:25 PM CDT RENAL FUNCTION PANEL Routine 10/25/2017 12:25 PM CDT COMPLEMENT C3 STAT 10/25/2017 12:25 PM CDT GLUCOSE - POINT OF CARE Routine 10/26/19 18 11:38 AM CDT LDH BLOOD STAT 10/25/2017 8:38 AM CDT BILIRUBIN DIRECT STAT 10/25/2017 8:38 AM CDT GLUCOSE - POINT OF CARE Routine 10/26/19 7:49 AM CDT GLUCOSE - POINT OF CARE Routine 10/26/19 18 5:20 AM CDT PTT [facility] AM Draw 10/25/2017 5:00 AM CDT PT-INR [facility] AM Draw 10/25/2017 5:00 AM CDT DIFFERENTIAL MANUAL Routine 10/25/2017 5 :00 AM CDT CBC W AUTO DIFFERENTIAL Routine 10/26/19 5:00 AM CDT COMPREHENSIVE METABOLIC PANEL Routine 10/25/2017 5:00 AM CDT RENAL FUNCTION PANEL Routine 10/25/2017 5:00 AM CDT MAGNESIUM BLOOD Routine 10/25/2017 5:00 AM CDT GLUCOSE - POINT OF CARE Routine 10/26/19 12:32 AM CDT RENAL FUNCTION PANEL Routine 10/25/2017 12:21 AM CDT GLUCOSE - POINT OF CARE Routine 10/25/19 8:33 PM CDT GLUCOSE - POINT OF CARE Routine 10/25/19 4:25 PM CDT RENAL FUNCTION PANEL Routine 10/24/2017 11:54 AM CDT GLUCOSE - POINT OF CARE Routine 10/25/19 11:52 AM CDT GLUCOSE - POINT OF CARE Routine 10/25/19 10:04 AM CDT CBC W AUTO DIFFERENTIAL Routine 06/10/20 18 4:44 AM CDT PTT [facility] AM Draw 10/24/2017 3:39 AM CDT PT-INR [facility] AM Draw 10/24/2017 3:39 AM CDT GLUCOSE - POINT OF CARE Routine 10/25/19 18 3:24 AM CDT COMPREHENSIVE METABOLIC PANEL Routine 10/24/2017 3:16 AM CDT RENAL FUNCTION PANEL Routine 10/24/2017 3:16 AM CDT MAGNESIUM BLOOD Routine 10/24/2017 3:16 AM CDT GLUCOSE - POINT OF CARE Routine 10/24/19 11:48 PM CDT RENAL FUNCTION PANEL Routine 10/23/2017 8:09 PM CDT GLUCOSE - POINT OF CARE Routine 10/24/19 18 8:06 PM CDT GLUCOSE - POINT OF CARE Routine 10/24/19 18 4:05 PM CDT RENAL FUNCTION PANEL Routine 10/23/2017 11:30 AM CDT GLUCOSE - POINT OF CARE Routine 10/24/19 11:28 AM CDT GLUCOSE - POINT OF CARE Routine 10/24/19 7:40 AM CDT DIFFERENTIAL MANUAL Routine 10/23/2017 5 :56 AM CDT CBC W AUTO DIFFERENTIAL Routine 10/24/19 5:56 AM CDT GLUCOSE - POINT OF CARE Routine 10/24/19 3:51 AM CDT PTT [facility] AM Draw 10/23/2017 3:48 AM CDT PT-INR [facility] AM Draw 10/23/2017 3:48 AM CDT COMPREHENSIVE METABOLIC PANEL Routine 10/23/2017 3:48 AM CDT RENAL FUNCTION PANEL Routine 10/23/2017 3:48 AM CDT MAGNESIUM BLOOD Routine 10/23/2017 3:48 AM CDT GLUCOSE - POINT OF CARE Routine 10/23/19 18 11:20 PM CDT GLUCOSE - POINT OF CARE Routine 10/23/19 18 8:15 PM CDT RENAL FUNCTION PANEL Routine 10/22/2017 8:12 PM CDT GLUCOSE - POINT OF CARE Routine 10/23/19 18 5:30 PM CDT GLUCOSE - POINT OF CARE Routine 10/23/19 18 12:26 PM CDT RENAL FUNCTION PANEL Routine 10/22/2017 11:33 AM CDT CBC W/O DIFFERENTIAL Routine 10/22/2017 11:20 AM CDT BLOOD GASES ARTERIAL Routine 10/22/2017 11:20 AM CDT GLUCOSE - POINT OF CARE Routine 10/23/19 18 9:39 AM CDT XR CHEST 1VW PORTABLE Routine 10/22/2017 4:50 AM CDT Septic shock (HCC) PTT [facility] AM Draw 10/22/2017 4:46 AM CDT PT-INR [facility] AM Draw 10/22/2017 4:46 AM CDT CALCIUM IONIZED WHOLE BLOOD Routine 10/22/2017 4:46 AM CDT TYPE + SCREEN PANEL Routine 10/22/2017 4 :46 AM CDT CBC W AUTO DIFFERENTIAL Routine 10/23/19 18 4:46 AM CDT COMPREHENSIVE METABOLIC PANEL Routine 10/22/2017 4:46 AM CDT RENAL FUNCTION PANEL Routine 10/22/2017 4:46 AM CDT MAGNESIUM BLOOD Routine 10/22/2017 4:46 AM CDT GLUCOSE - POINT OF CARE Routine 10/23/19 18 12:22 AM CDT CALCIUM IONIZED WHOLE BLOOD Routine 10/21/2017 8:51 PM CDT RENAL FUNCTION PANEL Routine 10/21/2017 8:51 PM CDT GLUCOSE - POINT OF CARE Routine 10/22/19 18 4:23 PM CDT PT-INR [facility] Routine 10/21/2017 12:02 PM CDT CALCIUM IONIZED WHOLE BLOOD Routine 10/21/2017 12:02 PM CDT GLUCOSE - POINT OF CARE Routine 10/22/19 18 12:02 PM CDT CBC W/O DIFFERENTIAL Routine 10/21/2017 12:02 PM CDT RENAL FUNCTION PANEL Routine 10/21/2017 12:02 PM CDT GLUCOSE - POINT OF CARE Routine 10/22/19 7:53 AM CDT PTT [facility] Routine 10/21/2017 3:18 AM CDT PT-INR [facility] Routine 10/21/2017 3:18 AM CDT CALCIUM IONIZED WHOLE BLOOD Routine 10/21/2017 3:18 AM CDT FIBRINOGEN ACTIVITY AM Draw 10/21/2017 3 :18 AM CDT CBC W/O DIFFERENTIAL Routine 10/21/2017 3:18 AM CDT COMPREHENSIVE METABOLIC PANEL Routine 10/21/2017 3:18 AM CDT PHOSPHORUS BLOOD Routine 10/21/2017 3:18 AM CDT MAGNESIUM BLOOD Routine 10/21/2017 3:18 AM CDT LDH BLOOD Routine 10/21/2017 3:18 AM CDT GLUCOSE - POINT OF CARE Routine 10/22/19 18 12:13 AM CDT PT-INR [facility] Routine 10/20/2017 8:01 PM CDT CALCIUM IONIZED WHOLE BLOOD Routine 10/20/2017 8:01 PM CDT CBC W/O DIFFERENTIAL Routine 10/20/2017 8:01 PM CDT RENAL FUNCTION PANEL Routine 10/20/2017 8:01 PM CDT GLUCOSE - POINT OF CARE Routine 10/21/19 18 7:58 PM CDT PHOSPHORUS BLOOD STAT 10/20/2017 5:20 PM CDT GLUCOSE - POINT OF CARE Routine 10/21/19 18 4:02 PM CDT PT-INR [facility] Routine 10/20/2017 11:59 AM CDT CALCIUM IONIZED WHOLE BLOOD Routine 10/20/2017 11:59 AM CDT CBC W/O DIFFERENTIAL Routine 10/20/2017 11:59 AM CDT RENAL FUNCTION PANEL Routine 10/20/2017 11:59 AM CDT GLUCOSE - POINT OF CARE Routine 10/21/19 18 11:55 AM CDT GLUCOSE - POINT OF CARE Routine 10/21/19 18 8:00 AM CDT PTT [facility] Routine 10/20/2017 3:41 AM CDT PT-INR [facility] Routine 10/20/2017 3:41 AM CDT CALCIUM IONIZED WHOLE BLOOD Routine 10/20/2017 3:41 AM CDT CBC W AUTO DIFFERENTIAL AM Draw 10/21/19 3:41 AM CDT COMPREHENSIVE METABOLIC PANEL Routine 10/20/2017 3:41 AM CDT PHOSPHORUS BLOOD Routine 10/20/2017 3:41 AM CDT MAGNESIUM BLOOD Routine 10/20/2017 3:41 AM CDT GLUCOSE - POINT OF CARE Routine 10/21/19 2:23 AM CDT GLUCOSE - POINT OF CARE Routine 10/20/19 18 8:52 PM CDT PTT SL[facility] Routine 10/19/2017 8:49 PM CDT PT-INR [facility] Routine 10/19/2017 8:49 PM CDT CALCIUM IONIZED WHOLE BLOOD Routine 10/19/2017 8:49 PM CDT FIBRINOGEN ACTIVITY Routine 10/19/2017 8 :49 PM CDT CBC W/O DIFFERENTIAL Routine 10/19/2017 8:49 PM CDT RENAL FUNCTION PANEL Routine 10/19/2017 8:49 PM CDT XR CHEST 1VW PORTABLE STAT 10/19/2017 7:33 PM CDT Pleural effusion CULTURE ANAEROBE Routine 10/19/2017 4:03 PM CDT CULTURE FLUID+GRAM STAIN Routine 018 4:02 PM CDT GLUCOSE - POINT OF CARE Routine 10/20/19 18 4:02 PM CDT CELL COUNT W DIFFERENTIAL FLUID Routine 10/19/2017 4:01 PM CDT DIFFERENTIAL MANUAL FLUID Routine 10/19/2017 4:01 PM CDT BLOOD GASES ARTERIAL RT STAT 10/19/2017 4:01 PM CDT CALCIUM IONIZED WHOLE BLOOD Routine 10/19/2017 12:34 PM CDT CBC W/O DIFFERENTIAL Routine 10/19/2017 12:34 PM CDT RENAL FUNCTION PANEL Routine 10/19/2017 12:34 PM CDT GLUCOSE - POINT OF CARE Routine 10/20/19 18 12:29 PM CDT GLUCOSE - POINT OF CARE Routine 10/20/19 18 8:05 AM CDT TRANSFUSE RED BLOOD CELL LEUKOREDUCED UNIT(S) Routine 10/19/2017 8:00 AM CDT FIBRINOGEN ACTIVITY Add on 10/19/2017 7 :[address] ABDOMEN PELVIS WO CONTRAST STAT 10/19/2017 6:37 AM CDT Abdominal pain, unspecified abdominal location XR CHEST 1VW PORTABLE STAT 10/19/2017 5:38 AM CDT Pleural effusion Pneumonia due to infectious organism, unspecified laterality, unspecified part of lung PREPARE RBC LEUKOREDUCED UNIT Routine 10/19/2017 5:32 AM CDT PREPARE CRYOPRECIPITATE UNIT(S) STAT 10/19/2017 5:32 AM CDT PREPARE FFP UNIT(S) Routine 10/19/2017 5 :32 AM CDT PATHOLOGY PERIPHERAL SMEAR REVIEW Routine 10/19/2017 5:28 AM CDT Septic shock (HCC) TYPE + SCREEN PANEL STAT 10/19/2017 5 :28 AM CDT SHIELA DIRECT Routine 10/19/2017 5:28 AM CDT RETIC COUNT Routine 10/19/2017 4:54 AM CDT RBC MORPHOLOGY Routine 10/19/2017 4:54 AM CDT CBC W/O DIFFERENTIAL STAT 10/19/2017 4:54 AM CDT BLOOD GASES ARTERIAL STAT 10/19/2017 4:36 AM CDT GLUCOSE - POINT OF CARE Routine 10/20/19 18 4:30 AM CDT MARILEE BLOOD SCREEN W/REFLEX TITER Routine 10/19/2017 4:25 AM CDT Septic shock (HCC) Pleural effusion Abdominal pain, unspecified abdominal location Pneumonia due to infectious organism, unspecified laterality, unspecified part of lung TRANSFERRIN Routine 10/19/2017 4:25 AM CDT IRON BLOOD Routine 10/19/2017 4:25 AM CDT HAPTOGLOBIN Routine 10/19/2017 4:25 AM CDT FERRITIN Routine 10/19/2017 4:25 AM CDT PTT [facility] Routine 10/19/2017 4:04 AM CDT PT-INR [facility] Routine 10/19/2017 4:04 AM CDT CALCIUM IONIZED WHOLE BLOOD Routine 10/19/2017 4:04 AM CDT MITOCHONDRIAL ANTIBODY SCREEN AM Draw 10/19/2017 4:04 AM CDT CBC W/O DIFFERENTIAL Routine 10/19/2017 4:04 AM CDT COMPREHENSIVE METABOLIC PANEL Routine 10/19/2017 4:04 AM CDT MAGNESIUM BLOOD Routine 10/19/2017 4:04 AM CDT FOLATE Routine 10/19/2017 4:04 AM CDT VITAMIN B12 Routine 10/19/2017 4:04 AM CDT GLUCOSE - POINT OF CARE Routine 10/19/19 18 11:44 PM CDT GLUCOSE - POINT OF CARE Routine 10/19/19 18 9:47 PM CDT CALCIUM IONIZED WHOLE BLOOD Routine 10/18/2017 9:37 PM CDT RENAL FUNCTION PANEL Routine 10/18/2017 9:37 PM CDT GLUCOSE - POINT OF CARE Routine 10/19/19 18 4:16 PM CDT CRYOGLOBULIN QUALITATIVE AM Draw 018 2:34 PM CDT NEUTROPHIL CYTOPLASMIC ANTIBODY Routine 10/18/2017 2:34 PM CDT COMPLEMENT TOTAL Routine 10/18/2017 2:34 PM CDT KAPPA/LAMBDA LITE CHAIN FREE PANEL Routine 10/18/2017 2:34 PM CDT HIV-1 HIV-2 ANTIGEN/ANTIBODY Routine 10/18/2017 1:54 PM CDT DNA (DS) ANTIBODY RFLEX IFA Routine 10/18/2017 1:54 PM CDT IMMUNOFIXATION BLOOD Routine 10/18/2017 1:54 PM CDT HAHN (SM) ANTIBODY KOLTON Routine 10/19/19 18 1:54 PM CDT ASO TITER Routine 10/18/2017 1:54 PM CDT ANTI-NEUTROPHIL CYTOPLASMIC ANTIBODY IGG Routine 10/18/2017 1:54 PM CDT SS-B (SJOGREN'S) ANTIBODY Routine 10/18/2017 1:54 PM CDT SS-A (SJOGREN'S) ANTIBODY Routine 10/18/2017 1:54 PM CDT MPO/NC 3 AUTOANTIBODIES PANEL Routine 10/18/2017 1:54 PM CDT PROTEIN ELECTROPHORESIS BLOOD Routine 10/18/2017 1:54 PM CDT HEPATITIS SCREEN ACUTE Routine 8 1:54 PM CDT GLOMERULAR BASE MEMBRANE ANTIBODY IGG Routine 10/18/2017 1:53 PM CDT COMPLEMENT C4 Routine 10/18/2017 1:53 PM CDT COMPLEMENT C3 Routine 10/18/2017 1:53 PM CDT XR CHEST 1VW PORTABLE STAT 10/18/2017 12:29 PM CDT Septic shock (HCC) HYDROXYBUTYRATE BETA Routine 10/18/2017 11:40 AM CDT HEPARIN PLATELET INDUCED ANTIBODY Routine 10/18/2017 11:40 AM CDT BASIC METABOLIC PANEL (CALCIUM TOTAL) Routine 10/18/2017 11:40 AM CDT LACTIC ACID BLOOD Routine 10/18/2017 11: 40 AM CDT US ABDOMEN LIMITED Routine 10/18/2017 11 :02 AM CDT Septic shock (HCC) GLUCOSE - POINT OF CARE Routine 10/19/19 18 8:12 AM CDT XR CHEST 1VW PORTABLE Routine 10/18/2017 5:39 AM CDT Septic shock (HCC) PTT SLH Routine 10/18/2017 4:34 AM CDT PT-INR SLH Routine 10/18/2017 4:34 AM CDT CBC W/O DIFFERENTIAL Routine 10/18/2017 4:34 AM CDT COMPREHENSIVE METABOLIC PANEL Routine 10/18/2017 4:34 AM CDT PHOSPHORUS BLOOD Routine 10/18/2017 4:34 AM CDT MAGNESIUM BLOOD Routine 10/18/2017 4:34 AM CDT GLUCOSE - POINT OF CARE Routine 10/19/19 18 4:27 AM CDT GLUCOSE - POINT OF CARE Routine 10/18/19 18 11:46 PM CDT BLOOD GASES ARTERIAL Routine 10/17/2017 10:08 PM CDT BASIC METABOLIC PANEL (CALCIUM TOTAL) Routine 10/17/2017 8:56 PM CDT GLUCOSE - POINT OF CARE Routine 10/18/19 18 8:52 PM CDT PHOSPHORUS BLOOD Add on 10/17/2017 4:54 PM CDT GGT Routine 10/17/2017 4:54 PM CDT VANCOMYCIN LEVEL RANDOM Routine 10/18/19 18 4:54 PM CDT BASIC METABOLIC PANEL (CALCIUM TOTAL) Routine 10/17/2017 11:45 AM CDT BLOOD GASES ARTERIAL Routine 10/17/2017 11:45 AM CDT GLUCOSE - POINT OF CARE Routine 10/18/19 18 9:38 AM CDT CBC W/O DIFFERENTIAL Routine 10/17/2017 4:19 AM CDT COMPREHENSIVE METABOLIC PANEL Routine 10/17/2017 4:19 AM CDT MAGNESIUM BLOOD Routine 10/17/2017 4:19 AM CDT GLUCOSE - POINT OF CARE Routine 10/18/19 18 4:16 AM CDT GLUCOSE - POINT OF CARE Routine 10/17/19 18 11:54 PM CDT BASIC METABOLIC PANEL (CALCIUM TOTAL) Routine 10/16/2017 8:51 PM CDT GLUCOSE - POINT OF CARE Routine 10/17/19 18 7:54 PM CDT EKG 12-LEAD Routine 10/16/2017 5:57 PM CDT Septic shock (HCC) GLUCOSE - POINT OF CARE Routine 10/17/19 18 5:41 PM CDT BASIC METABOLIC PANEL (CALCIUM TOTAL) Routine 10/16/2017 12:54 PM CDT EKG 12-LEAD STAT 10/16/2017 10:33 AM CDT Septic shock (HCC) GLUCOSE - POINT OF CARE Routine 10/17/19 18 9:29 AM CDT GLUCOSE - POINT OF CARE Routine 10/17/19 18 9:24 AM CDT CULTURE SPUTUM+GRAM STAIN Routine 10/16/2017 6:17 AM CDT CBC W/O DIFFERENTIAL Routine 10/16/2017 3:51 AM CDT COMPREHENSIVE METABOLIC PANEL Routine 10/16/2017 3:51 AM CDT MAGNESIUM BLOOD Routine 10/16/2017 3:51 AM CDT LACTIC ACID BLOOD AM Draw 10/16/2017 3:5 1 AM CDT GLUCOSE - POINT OF CARE Routine 10/17/19 3:49 AM CDT GLUCOSE - POINT OF CARE Routine 10/17/19 3:48 AM CDT GLUCOSE - POINT OF CARE Routine 10/17/19 12:12 AM CDT XR CHEST 1VW STAT 10/15/2017 11:20 PM CDT Septic shock (HCC) XR ABDOMEN KUB PORTABLE STAT 10/16/19 8:59 PM CDT Abdominal pain, unspecified abdominal location GLUCOSE - POINT OF CARE Routine 10/16/19 18 8:02 PM CDT ECHO COMPLETE Routine 10/15/2017 3:59 PM CDT Pleural effusion GLUCOSE - POINT OF CARE Routine 10/16/19 3:44 PM CDT SVO2 FOR RECALIBRATION STAT 8 12:12 PM CDT VANCOMYCIN LEVEL RANDOM Timed 10/16/19 12:12 PM CDT GLUCOSE - POINT OF CARE Routine 10/16/19 11:[address] ANGIO CHEST PULM EMBOLISM STAT 10/15/2017 11:44 AM CDT Septic shock (HCC) CULTURE URINE Routine 10/15/2017 9:31 AM CDT LDH BLOOD STAT 10/15/2017 9:25 AM CDT EKG 12-LEAD Routine 10/15/2017 8:40 AM CDT Septic shock (HCC) GLUCOSE - POINT OF CARE Routine 10/16/19 7:42 AM CDT URINALYSIS REFLEX TO MICROSCOPIC NO CULTURE STAT 10/15/2017 4:39 AM CDT SODIUM URINE RANDOM Routine 10/15/2017 4 :39 AM CDT UREA NITROGEN URINE RANDOM Routine 10/15/2017 4:39 AM CDT OSMOLALITY URINE RAYSHAWN 10/15/2017 4:39 AM CDT CREATININE URINE RANDOM Routine 10/16/19 4:39 AM CDT PT-INR [facility] Routine 10/15/2017 4:22 AM CDT HEMOGLOBIN A1C Routine 10/15/2017 4:22 AM CDT CBC W AUTO DIFFERENTIAL AM Draw 10/16/19 4:22 AM CDT COMPREHENSIVE METABOLIC PANEL AM Draw 10/15/2017 4:22 AM CDT LACTIC ACID BLOOD AM Draw 10/15/2017 4:2 2 AM CDT VANCOMYCIN LEVEL RANDOM Routine 10/16/19 4:22 AM CDT GLUCOSE - POINT OF CARE Routine 10/16/19 18 4:20 AM CDT TRIGLYCERIDES BODY FLUID Routine 018 4:05 AM CDT PROTEIN BODY FLUID Routine 10/15/2017 4: 05 AM CDT AMYLASE BODY FLUID Routine 10/15/2017 4: 05 AM CDT CYTOLOGY NON-PAINTER SKI EDGE PANEL (STL) Routine 10/15/2017 4:04 AM CDT Pleural effusion CULTURE ANAEROBE Routine 10/15/2017 4:04 AM CDT PH BODY FLUID ([facility] ONLY) Timed 018 4:03 AM CDT XR CHEST 1VW PORTABLE STAT 10/15/2017 3:30 AM CDT Pleural effusion ALBUMIN BODY FLUID Routine 10/15/2017 3: 10 AM CDT LDH BODY FLUID Routine 10/15/2017 3:10 AM CDT GLUCOSE BODY FLUID Routine 10/15/2017 3: 10 AM CDT CELL COUNT W DIFFERENTIAL FLUID STAT 10/15/2017 3:10 AM CDT DIFFERENTIAL MANUAL FLUID STAT 10/15/2017 3:10 AM CDT CULTURE FLUID+GRAM STAIN Routine 018 3:10 AM CDT ALBUMIN BODY FLUID Routine 10/15/2017 12 :33 AM CDT CELL COUNT W DIFFERENTIAL FLUID Routine 10/15/2017 12:23 AM CDT DIFFERENTIAL MANUAL FLUID Routine 10/15/2017 12:23 AM CDT CULTURE FLUID+GRAM STAIN Routine 018 12:23 AM CDT CULTURE SPUTUM+GRAM STAIN Routine 10/14/2017 10:50 PM CDT CULTURE BLOOD Timed 10/14/2017 10:50 PM CDT BLOOD GASES ART COMPLETE [facility] OR Routine 10/14/2017 10:39 PM CDT PT-INR [facility] STAT 10/14/2017 10:20 PM CDT CULTURE BLOOD Timed 10/14/2017 10:20 PM CDT CBC W/O DIFFERENTIAL STAT 10/14/2017 10:20 PM CDT BASIC METABOLIC PANEL (CALCIUM TOTAL) STAT 10/14/2017 10:20 PM CDT PHOSPHORUS BLOOD STAT 10/14/2017 10:2 0 PM CDT MAGNESIUM BLOOD STAT 10/14/2017 10:20 PM CDT LACTIC ACID BLOOD STAT 10/14/2017 10: 20 PM CDT VANCOMYCIN LEVEL RANDOM STAT 10/15/19 18 10:20 PM CDT XR CHEST 1VW PORTABLE STAT 10/14/2017 9:01 PM CDT Septic shock (HCC) OT EVAL AND TREAT Routine 10/14/2017 8:3 6 PM CDT PT EVAL AND TREAT Routine 10/14/2017 8:3 6 PM CDT documented in this encounter Results * CARDIAC PROCEDURE ORDER (11/08/2017 6:53 PM CDT) Narrative 11/08/2017 6:53 PM CDT Ordered by an unspecified provider. Scanned Document CARDIAC SERVICES ORD ERABLES * CARDIAC EKG ORDER (11/08/2017 6:53 PM CDT) Narrative 11/08/2017 6:53 PM CDT Ordered by an unspecified provider. Scanned Document CARDIAC SERVICES ORD ERABLES * GLUCOSE - POINT OF CARE (11/03/2017 2:37 PM CDT) Glucose WB/POC 84 70 - 115 mg/dL 11/03/2017 2:51 PM CDT [facility] Specimen Type Arterial/C apillary 11/03/2017 2:51 PM CDT [facility] Blood BLOOD SPECIMEN / Unknown 11/03/2017 2:37 PM CDT 11/03/2017 2:51 PM CDT Narrative [facility] - 11/03/2017 2:51 PM CDT Senior Accounting Analyst: CASSANDRA ?ALEX Elver Askew MD LAB - POINT OF CARE ORDERABLES Performing Organization Address [facility]/ZIP Co de Phone Number [address] [phone] * GLUCOSE - POINT OF CARE (11/03/2017 12:57 PM CDT) Glucose WB/POC 95 70 - 115 mg/dL 11/03/2017 1:14 PM CDT [facility] Specimen Type Venous 11/03/2017 1:14 PM CDT [facility] Blood BLOOD SPECIMEN / Unknown 11/03/2017 12:57 PM CDT 11/03/2017 1:14 PM CDT Narrative [facility] - 11/03/2017 1:14 PM CDT Senior Accounting Analyst: RAFA BEAUCHAMP Elver Askew MD LAB - POINT OF CARE ORDERABLES Performing Organization Address [facility] Co de Phone Number [address] [phone] * GLUCOSE - POINT OF CARE (11/03/2017 8:28 AM CDT) Glucose WB/POC 72 70 - 115 mg/dL 11/03/2017 9:04 AM CDT [facility] Specimen Type Arterial/C apillary 11/03/2017 9:04 AM CDT [facility] Blood BLOOD SPECIMEN / Unknown 11/03/2017 8:28 AM CDT 11/03/2017 9:04 AM CDT Narrative [facility] - 11/03/2017 9:04 AM CDT Senior Accounting Analyst: CASSANDRA ?ALEX Elver Askew MD LAB - POINT OF CARE ORDERABLES [address] [phone] * (ABNORMAL) RBC MORPHOLOGY (11/03/2017 7:27 AM CDT) Pathologist [facility] Platelet Estimate Adequate Adequate 11/03/2017 8:07 AM T [facility] Anisocytosis 2+(A) None 11/03/2017 8:07 AM T [facility] Macrocytosis 2+(A) None 11/03/2017 8:07 AM [facility] Blood BLOOD SPECIMEN / Unknown Lab Venipuncture / Unknown 11/03/2017 7:27 AM CDT 11/03/2017 7:27 AM CDT Ronaldo Flynn DO LAB - HEMATOLOGY ORD ERABLES Performing Organization Address [facility]/ZIP Co de Phone Number [address] [phone] * (ABNORMAL) CBC W AUTO DIFFERENTIAL (11/03/2017 7:27 AM CDT) WBC 8.5 3.5 - 10.5 10? 3 /uL 11/03/2017 7:38 AM [facility] RBC 2.32(L) 3.90 - 5.00 10? 6 /uL 11/03/2017 7:38 AM [facility] Hemoglobin 7.7(L) 12.0 - 15.5 g/dL 11/03/2017 7:38 AM [facility] Hematocrit 23.8(L) 35.0 - 45.0 % 11/03/2017 7:38 AM [facility] MCV 102.6(H) 81.0 - 97.0 fL 11/03/2017 7:38 AM [facility] MCH 33.2 28.0 - 34.0 pg 11/03/2017 7:38 AM [facility] MCHC 32.4 32.0 - 36.0 g/dL 11/03/2017 7:38 AM [facility] Platelet Count 237 150 - 400 10? 3 /uL 11/03/2017 7:38 AM [facility] RDW-SD 78.3(H) 36.0 - 50.0 fL 11/03/2017 7:38 AM [facility] RDW-CV 22.2(H) 11.2 - 14.8 % 11/03/2017 7:38 AM [facility] MPV 9.0(L) 9.3 - 12.8 fL 11/03/2017 7:38 AM [facility] Neutrophils % 76.3(H) 35.0 - 70.0 % 11/03/2017 7:38 AM [facility] Lymphocytes % 11.3(L) 19.7 - 55.1 % 11/03/2017 7:38 AM [facility] Monocytes % 8.6 3.0 - 15.0 % 11/03/2017 7:38 AM [facility] Eosinophils % 3.2 0.0 - 6.0 % 11/03/2017 7:38 AM [facility] Basophil % 0.6 0.0 - 1.5 % 11/03/2017 7:38 AM [facility] Neutrophils Absolute 6.5 1.6 - 7.0 10? 3 /uL 11/03/2017 7:38 AM [facility] Lymphocyte Absolute 1.0 0.8 - 2.9 10? 3 /uL 11/03/2017 7:38 AM [facility] Monocytes Absolute 0.73(H) 0.14 - 0.66 10? 3 /uL 11/03/2017 7:38 AM [facility] Eosinophils Absolute 0.27(H) 0.00 - 0.22 10? 3 /uL 11/03/2017 7:38 AM [facility] Basophils Absolute 0.05 0.00 - 0.06 10? 3 /uL 11/03/2017 7:38 AM [facility] Reflex Status Morphology review to follow. 11/03/2017 7:38 AM [facility] Immature Granulocytes % 0.5 0.0 - 1.0 % 11/03/2017 7:38 AM [facility] Blood BLOOD SPECIMEN / Unknown Lab Venipuncture / Unknown 11/03/2017 7:27 AM CDT 11/03/2017 7:27 AM CDT Ronaldo Flynn DO LAB - HEMATOLOGY ORD ERABLES [facility] [address] [phone] * PT-INR [facility] (11/03/2017 7:27 AM CDT) PT 14.0 12.1 - 14.8 Seconds 11/03/2017 7:49 AM [facility] INR 1.1 See Comment 11/03/2017 7:49 AM [facility] Comment: Suggested therapeutic range for low-intensity coumadin therapy for venous thromboembolism prophylaxis is an INR of 2.0-3.0. ??For high risk patients (Mitral Valve Prosthesis, Atrial Fibrillation, history of TIA/stroke), suggested prophylactic therapeutic range is an INR of 2.5-3.5. Blood BLOOD SPECIMEN / Unknown Lab Venipuncture / Unknown 11/03/2017 7:27 AM CDT 11/03/2017 7:27 AM CDT Reuben Tellez MD LAB - COAGULATION OR DERABLES [facility] [address] [phone] * (ABNORMAL) COMPREHENSIVE METABOLIC PANEL (11/03/2017 7:27 AM CDT) BUN 22 7 - 26 mg/dL 11/03/2017 8:07 AM [facility] Creatinine 1.3(H) 0.6 - 1.2 mg/dL 11/03/2017 8:07 AM [facility] Sodium 137 136 - 145 mmol/L 11/03/2017 8:07 AM [facility] Potassium 3.8 3.5 - 4.5 mmol/L 11/03/2017 8:07 AM [facility] Chloride 98 98 - 107 mmol/L 11/03/2017 8:07 AM [facility] CO2 29 22 - 29 mmol/L 11/03/2017 8:07 AM [facility] Glucose 84 70 - 115 mg/dL 11/03/2017 8:07 AM [facility] Calcium 9.1 8.4 - 10.2 mg/dL 11/03/2017 8:07 AM [facility] Protein Total 5.4(L) 6.0 - 8.3 g/dL 11/03/2017 8:07 AM [facility] Albumin 2.9(L) 3.4 - 5.0 g/dL 11/03/2017 8:07 AM [facility] Bilirubin Total 1.4(H) 0.2 - 1.2 mg/dL 11/03/2017 8:07 AM [facility] Alkaline Phosphatase 433(H) 40 - 150 Units/L 11/03/2017 8:07 AM [facility] ALT 35 0 - 55 Units/L 11/03/2017 8:07 AM [facility] AST 51(H) 5 - 34 Units/L 11/03/2017 8:07 AM [facility] Anion Gap 14 8 - 18 11/03/2017 8:07 AM [facility] BUN/Creatinine Ratio 17 7 - 23 11/03/2017 8:07 AM [facility] Osmolality Calculated 287 270 - 300 mOsm/kg 11/03/2017 8:07 AM [facility] Albumin/Globulin Ratio 1.2 1.1 - 2.3 11/03/2017 8:07 AM [facility] eGFR 42(L) >60 mL/min/1.7 3 m2 11/03/2017 8:07 AM [facility] Blood BLOOD SPECIMEN / Unknown Lab Venipuncture / Unknown 11/03/2017 7:27 AM CDT 11/03/2017 7:[address] [facility] Elver Askew MD LAB - CHEMISTRY ORDERABLES [facility] [address] [place] [address] * GLUCOSE - POINT OF CARE (11/02/2017 9:18 PM CDT) [facility] Glucose WB/POC 111 70 - 115 mg/dL 11/02/2017 9:35 PM CDT [facility] Specimen Type Venous 11/02/2017 9:35 PM CDT [facility] Blood BLOOD SPECIMEN / Unknown 11/02/2017 9:18 PM CDT 11/02/2017 9:34 PM CDT [facility] - 11/02/2017 9:35 PM CDT Senior Accounting Analyst: BRANDIE ??ALEJANDRO Elver Askew MD LAB - POINT OF CARE ORDERABLES [address] [phone] * GLUCOSE - POINT OF CARE (11/02/2017 5:58 PM CDT) Glucose WB/POC 113 70 - 115 mg/dL 11/02/2017 6:49 PM CDT [facility] Specimen Type Arterial/C apillary 11/02/2017 6:49 PM CDT [facility] Blood BLOOD SPECIMEN / Unknown 11/02/2017 5:58 PM CDT 11/02/2017 6:49 PM CDT [facility] - 11/02/2017 6:49 PM CDT Senior Accounting Analyst: KELVIN ??LATANYA Elver Askew MD LAB - POINT OF CARE ORDERABLES [address] [phone] * (ABNORMAL) GLUCOSE - POINT OF CARE (11/02/2017 12:52 PM CDT) Glucose WB/POC 130(H) 70 - 115 mg/dL 11/02/2017 1:13 PM CDT [facility] Specimen Type Arterial/C apillary 11/02/2017 1:13 PM CDT [facility] Blood BLOOD SPECIMEN / Unknown 11/02/2017 12:52 PM CDT 11/02/2017 1:13 PM CDT [facility] - 11/02/2017 1:13 PM CDT Senior Accounting Analyst: KELVIN ??LATANYA Elver Askew MD LAB - POINT OF CARE ORDERABLES Performing Organization Address [facility]/ZIP Co de Phone Number [address] [phone] * (ABNORMAL) GLUCOSE - POINT OF CARE (11/02/2017 8:06 AM CDT) Glucose WB/POC 155(H) 70 - 115 mg/dL 11/02/2017 12:23 PM CDT [facility] Specimen Type Arterial/C apillary 11/02/2017 12:23 PM CDT [facility] Blood BLOOD SPECIMEN / Unknown 11/02/2017 8:06 AM CDT 11/02/2017 12:23 PM CDT Narrative [facility] - 11/02/2017 12:23 PM CDT Senior Accounting Analyst: KELVIN ??LATANYA Elver Askew MD LAB - POINT OF CARE ORDERABLES Performing Organization Address [facility] Co de Phone Number [address] [phone] * (ABNORMAL) RBC MORPHOLOGY (11/02/2017 6:46 AM CDT) [facility] Anisocytosis 2+(A) None 11/02/2017 8:19 AM CDT [facility] Macrocytosis 2+(A) None 11/02/2017 8:19 AM CDT [facility] Blood BLOOD SPECIMEN / Unknown 11/02/2017 6:46 AM CDT 11/02/2017 7:08 AM CDT Ronaldo Flynn DO LAB - HEMATOLOGY ORD ERABLES Performing Organization Address City/[facility]/ZIP Co de Phone Number [address] [phone] * (ABNORMAL) CBC W AUTO DIFFERENTIAL (11/02/2017 6:46 AM CDT) Pathologist [facility] WBC 8.8 3.5 - 10.5 10? 3 /uL 11/02/2017 7:19 AM [facility] RBC 2.18(L) 3.90 - 5.00 10? 6 /uL 11/02/2017 7:19 AM [facility] Hemoglobin 7.2(L) 12.0 - 15.5 g/dL 11/02/2017 7:19 AM [facility] Hematocrit 22.2(L) 35.0 - 45.0 % 11/02/2017 7:19 AM [facility] MCV 101.8(H) 81.0 - 97.0 fL 11/02/2017 7: AM [facility] MCH 33.0 28.0 - 34.0 pg 11/02/2017 7:19 AM [facility] MCHC 32.4 32.0 - 36.0 g/dL 11/02/2017 7: AM [facility] Platelet Count 186 150 - 400 10? 3 /uL 11/02/2017 7:19 AM [facility] RDW-SD 79.3(H) 36.0 - 50.0 fL 11/02/2017 7:19 AM [facility] RDW-CV 23.0(H) 11.2 - 14.8 % 11/02/2017 7:19 AM [facility] MPV 9.0(L) 9.3 - 12.8 fL 11/02/2017 7:19 AM [facility] Neutrophils % 76.5(H) 35.0 - 70.0 % 11/02/2017 7:19 AM [facility] Lymphocytes % 11.8(L) 19.7 - 55.1 % 11/02/2017 7:19 AM [facility] Monocytes % 9.4 3.0 - 15.0 % 11/02/2017 7:19 AM [facility] Eosinophils % 2.1 0.0 - 6.0 % 11/02/2017 7:19 AM [facility] Basophil % 0.2 0.0 - 1.5 % 11/02/2017 7:19 AM [facility] Neutrophils Absolute 6.7 1.6 - 7.0 10? 3 /uL 11/02/2017 7:19 AM [facility] Lymphocyte Absolute 1.0 0.8 - 2.9 10? 3 /uL 11/02/2017 7:19 AM [facility] Monocytes Absolute 0.82(H) 0.14 - 0.66 10? 3 /uL 11/02/2017 7:19 AM [facility] Eosinophils Absolute 0.18 0.00 - 0.22 10? 3 /uL 11/02/2017 7:19 AM [facility] Basophils Absolute 0.02 0.00 - 0.06 10? 3 /uL 11/02/2017 7:19 AM [facility] Immature Granulocytes % 0.5 0.0 - 1.0 % 11/02/2017 7:19 AM [facility] Blood BLOOD SPECIMEN / Unknown 11/02/2017 6:46 AM CDT 11/02/2017 7:08 AM CDT Ronaldo Flynn DO LAB - HEMATOLOGY ORD ERABLES Performing Organization Address [facility] Co de Phone Number [address] [phone] * PT-INR [facility] (11/02/2017 6:46 AM CDT) PT 13.9 12.1 - 14.8 Seconds 11/02/2017 7:28 AM [facility] INR 1.1 See Comment 11/02/2017 7:28 AM [facility] Comment: Suggested therapeutic range for low-intensity coumadin therapy for venous thromboembolism prophylaxis is an INR of 2.0-3.0. ??For high risk patients (Mitral Valve Prosthesis, Atrial Fibrillation, history of TIA/stroke), suggested prophylactic therapeutic range is an INR of 2.5-3.5. Blood BLOOD SPECIMEN / Unknown 11/02/2017 6:46 AM CDT 11/02/2017 7:08 AM CDT Reuben Tellez MD LAB - COAGULATION OR DERABLES Performing Organization Address [facility]/ZIP Co de Phone Number [address] [phone] * (ABNORMAL) COMPREHENSIVE METABOLIC PANEL (11/02/2017 6:[address] [facility]) BUN 18 7 - 26 mg/dL 11/02/2017 7:33 AM [facility] Creatinine 1.1 0.6 - 1.2 mg/dL 11/02/2017 7:33 AM [facility] Sodium 137 136 - 145 mmol/L 11/02/2017 7:33 AM [facility] Potassium 3.6 3.5 - 4.5 mmol/L 11/02/2017 7:33 AM [facility] Chloride 99 98 - 107 mmol/L 11/02/2017 7:33 AM [facility] CO2 29 22 - 29 mmol/L 11/02/2017 7:33 AM [facility] Glucose 87 70 - 115 mg/dL 11/02/2017 7:33 AM [facility] Calcium 9.1 8.4 - 10.2 mg/dL 11/02/2017 7:33 AM [facility] Protein Total 5.5(L) 6.0 - 8.3 g/dL 11/02/2017 7:33 AM [facility] Albumin 2.9(L) 3.4 - 5.0 g/dL 11/02/2017 7:33 AM [facility] Bilirubin Total 1.4(H) 0.2 - 1.2 mg/dL 11/02/2017 7:33 AM [facility] Alkaline Phosphatase 473(H) 40 - 150 Units/L 11/02/2017 7:33 AM [facility] ALT 38 0 - 55 Units/L 11/02/2017 7:33 AM [facility] AST 60(H) 5 - 34 Units/L 11/02/2017 7:33 AM [facility] Anion Gap 13 8 - 18 11/02/2017 7:33 AM [facility] BUN/Creatinine Ratio 16 7 - 23 11/02/2017 7:33 AM [facility] Osmolality Calculated 285 270 - 300 mOsm/kg 11/02/2017 7:33 AM [facility] Albumin/Globulin Ratio 1.1 1.1 - 2.3 11/02/2017 7:33 AM CDT [facility] eGFR 51(L) >60 mL/min/1.7 3 m2 11/02/2017 7:33 AM CDT [facility] Blood BLOOD SPECIMEN / Unknown 11/02/2017 6:46 AM CDT 11/02/2017 7:08 AM CDT Elver Askew MD LAB - CHEMISTRY ORDERABLES [address] [phone] * PHOSPHORUS BLOOD (11/02/2017 6:46 AM CDT) Phosphorus 3.4 2.3 - 4.7 mg/dL 11/02/2017 7:33 AM CDT [facility] Blood BLOOD SPECIMEN / Unknown 11/02/2017 6:46 AM CDT 11/02/2017 7:08 AM CDT Andrew Ruiz MD LAB - CHEMISTRY ORDERABLES [address] [phone] * GLUCOSE - POINT OF CARE (11/01/2017 9:00 PM CDT) Glucose WB/POC 108 70 - 115 mg/dL 11/01/2017 9:22 PM CDT [facility] Specimen Type Venous 11/01/2017 9:22 PM CDT [facility] Blood BLOOD SPECIMEN / Unknown 11/01/2017 9:00 PM CDT 11/01/2017 9:21 PM CDT Narrative [facility] - 11/01/2017 9:22 PM CDT Senior Accounting Analyst: BAN ??COURTNEY Elver Askew MD LAB - POINT OF CARE ORDERABLES [address] [phone] * GLUCOSE - POINT OF CARE (11/01/2017 5:27 PM CDT) Glucose WB/POC 106 70 - 115 mg/dL 11/01/2017 5:52 PM CDT [facility] Specimen Type Arterial/C apillary 11/01/2017 5:52 PM CDT [facility] Blood BLOOD SPECIMEN / Unknown 11/01/2017 5:27 PM CDT 11/01/2017 5:52 PM CDT Narrative [facility] - 11/01/2017 5:52 PM CDT Senior Accounting Analyst: Unique ??Saira Elver Askew MD LAB - POINT OF CARE ORDERABLES Performing Organization Address [facility]/State/ZIP Co de Phone Number [address] [phone] * GLUCOSE - POINT OF CARE (11/01/2017 8:34 AM CDT) Glucose WB/POC 94 70 - 115 mg/dL 11/01/2017 8:51 AM CDT [facility] Specimen Type Arterial/C apillary 11/01/2017 8:51 AM CDT [facility] Blood BLOOD SPECIMEN / Unknown 11/01/2017 8:34 AM CDT 11/01/2017 8:51 AM CDT Narrative [facility] - 11/01/2017 8:51 AM CDT Senior Accounting Analyst: ELIZABETH ??NGOC Elver Askew MD LAB - POINT OF CARE ORDERABLES [address] [phone] * (ABNORMAL) DIFFERENTIAL MANUAL (11/01/2017 6:29 AM CDT) WBC (corrected for NRBC) 9.1 10? 3 /uL 11/01/2017 8:00 AM CDT [facility] Total Cell Count 100 11/02/19 18 8:00 AM CDT [facility] Neutrophils Absolute Manual 7.37(H) 1.60 - 7.00 10? 3 /uL 11/01/2017 8:00 AM [facility] Comment:(BANDS+SEGS) x WBC = NEUT # (ANC) Lymphocyte Absolute Manual 0.73(L) 0.80 - 2.90 10? 3 /uL 11/01/2017 8:00 AM [facility] Monocytes Absolute Manual 0.55 0.14 - 0.66 10? 3 /uL 11/01/2017 8:00 AM [facility] Eosinophils Absolute Manual 0.09 0.00 - 0.22 10? 3 /uL 11/01/2017 8:00 AM [facility] Basophil Absolute Manual 0.18(H) 0.00 - 0.06 10? 3 /uL 11/01/2017 8:00 AM [facility] Band % Manual 16(H) 0 - 10 % 11/01/2017 8:00 AM [facility] Neutrophil % Manual 65(H) 30 - 60 % 11/01/2017 8:00 AM [facility] Lymphocyte % Manual 8(L) 20 - 45 % 11/01/2017 8:00 AM [facility] Monocytes % Manual 6 2 - 10 % 11/01/2017 8:00 AM [facility] Eosinophils % Manual 1 1 - 6 % 11/01/2017 8:00 AM [facility] Basophils % Manual 2 0 - 3 % 11/01/2017 8:00 AM [facility] Metamyelocyte % Manual 1(H) 0 % 11/01/2017 8:00 AM [facility] Myelocytes % Manual 1(H) 0 % 11/01/2017 8:00 AM [facility] Platelet Estimate Adequate Adequate 018 8:00 AM [facility] Anisocytosis 2+(A) None 11/01/2017 8:00 AM [facility] Macrocytosis 2+(A) None 11/01/2017 8:00 AM [facility] Blood BLOOD SPECIMEN / Unknown 11/01/2017 6:29 AM CDT 11/01/2017 6:59 AM T Ronaldo Rina DO LAB - HEMATOLOGY ORD ERABLES [facility] [address] [phone] * (ABNORMAL) CBC W AUTO DIFFERENTIAL (11/01/2017 6:29 AM CDT) WBC 9.1 3.5 - 10.5 10? 3 /uL 11/01/2017 7:29 AM [facility] RBC 2.09(L) 3.90 - 5.00 10? 6 /uL 11/01/2017 7:29 AM [facility] Hemoglobin 7.0(L) 12.0 - 15.5 g/dL 11/01/2017 7:29 AM [facility] Hematocrit 20.8(L) 35.0 - 45.0 % 11/01/2017 7:29 AM [facility] MCV 99.5(H) 81.0 - 97.0 fL 11/01/2017 7:29 AM [facility] MCH 33.5 28.0 - 34.0 pg 11/01/2017 7:29 AM [facility] MCHC 33.7 32.0 - 36.0 g/dL 11/01/2017 7:29 AM [facility] Platelet Count 159 150 - 400 10? 3 /uL 11/01/2017 7:29 AM [facility] RDW-SD 78.4(H) 36.0 - 50.0 fL 11/01/2017 7:29 AM [facility] RDW-CV 23.3(H) 11.2 - 14.8 % 11/01/2017 7:29 AM [facility] MPV 9.5 9.3 - 12.8 fL 11/01/2017 7:29 AM [facility] Blood BLOOD SPECIMEN / Unknown 11/01/2017 6:29 AM CDT 11/01/2017 6:59 AM CDT Ronaldo Flynn DO LAB - HEMATOLOGY ORD ERABLES [facility] [address] [place] [address] * PT-INR [facility] (11/01/2017 6:29 AM CDT) PT 14.0 12.1 - 14.8 Seconds 11/01/2017 7:18 AM [facility] INR 1.1 See Comment 11/01/2017 7:18 AM [facility] Comment: Suggested therapeutic range for low-intensity coumadin therapy for venous thromboembolism prophylaxis is an INR of 2.0-3.0. ??For high risk patients (Mitral Valve Prosthesis, Atrial Fibrillation, history of TIA/stroke), suggested prophylactic therapeutic range is an INR of 2.5-3.5. Blood BLOOD SPECIMEN / Unknown 11/01/2017 6:29 AM CDT 11/01/2017 6:59 AM CDT Reuben Tellez MD LAB - COAGULATION OR DERABLES Performing Organization Address City/State/[facility] Co de Phone Number [address] [phone] * (ABNORMAL) COMPREHENSIVE METABOLIC PANEL (11/01/2017 6:29 AM CDT) BUN 39(H) 7 - 26 mg/dL 11/01/2017 7:38 AM [facility] Creatinine 1.6(H) 0.6 - 1.2 mg/dL 11/01/2017 7:38 AM [facility] Sodium 137 136 - 145 mmol/L 11/01/2017 7:38 AM [facility] Potassium 4.5 3.5 - 4.5 mmol/L 11/01/2017 7:38 AM [facility] Chloride 102 98 - 107 mmol/L 11/01/2017 7:38 AM [facility] CO2 25 22 - 29 mmol/L 11/01/2017 7:38 AM [facility] Glucose 98 70 - 115 mg/dL 11/01/2017 7:38 AM [facility] Calcium 9.4 8.4 - 10.2 mg/dL 11/01/2017 7:38 AM [facility] Protein Total 5.5(L) 6.0 - 8.3 g/dL 11/01/2017 7:38 AM [facility] Albumin 2.9(L) 3.4 - 5.0 g/dL 11/01/2017 7:38 AM [facility] Bilirubin Total 1.3(H) 0.2 - 1.2 mg/dL 11/01/2017 7:38 AM [facility] Alkaline Phosphatase 493(H) 40 - 150 Units/L 11/01/2017 7:38 AM [facility] ALT 33 0 - 55 Units/L 11/01/2017 7:38 AM [facility] AST 58(H) 5 - 34 Units/L 11/01/2017 7:38 AM [facility] Anion Gap 15 8 - 18 11/01/2017 7:38 AM [facility] BUN/Creatinine Ratio 24(H) 7 - 23 11/01/2017 7:38 AM [facility] Osmolality Calculated 293 270 - 300 mOsm/kg 11/01/2017 7:38 AM [facility] Albumin/Globulin Ratio 1.1 1.1 - 2.3 11/01/2017 7:38 AM [facility] eGFR 33(L) >60 mL/min/1.7 3 m2 11/01/2017 7:38 AM [facility] Blood BLOOD SPECIMEN / Unknown 11/01/2017 6:29 AM CDT 11/01/2017 6:59 AM CDT Elver Askew MD LAB - CHEMISTRY ORDERABLES Performing Organization Address City/State/[facility] Co de Phone Number [address] [phone] * (ABNORMAL) GLUCOSE - POINT OF CARE (10/31/2017 9:30 PM CDT) Glucose WB/POC 123(H) 70 - 115 mg/dL 10/31/2017 9:53 PM [facility] Specimen Type Venous 10/31/2017 9:53 PM [facility] Blood BLOOD SPECIMEN / Unknown 10/31/2017 9:30 PM CDT 10/31/2017 9:53 PM CDT [facility] - 10/31/2017 9:53 PM CDT Senior Accounting Analyst: BRANDIE ?KRYSTAL Elver Askew MD LAB - POINT OF CARE ORDERABLES [address] [phone] * (ABNORMAL) GLUCOSE - POINT OF CARE (10/31/2017 12:12 PM CDT) Glucose WB/POC 190(H) 70 - 115 mg/dL 10/31/2017 12:26 PM CDT [facility] Specimen Type Arterial/C apillary 10/31/2017 12:26 PM CDT [facility] Blood BLOOD SPECIMEN / Unknown 10/31/2017 12:12 PM CDT 10/31/2017 12:26 PM CDT [facility] - 10/31/2017 12:26 PM CDT Senior Accounting Analyst: ROSEANNE ?TITO Elver Askew MD LAB - POINT OF CARE ORDERABLES Performing Organization Address [facility]/ZIP Co de Phone Number [address] [phone] * (ABNORMAL) GLUCOSE - POINT OF CARE (10/31/2017 7:50 AM CDT) Glucose WB/POC 149(H) 70 - 115 mg/dL 10/31/2017 8:07 AM CDT [facility] Specimen Type Arterial/C apillary 10/31/2017 8:07 AM CDT [facility] Blood BLOOD SPECIMEN / Unknown 10/31/2017 7:50 AM CDT 10/31/2017 8:07 AM CDT [facility] - 10/31/2017 8:07 AM CDT Senior Accounting Analyst: KAROLINA ?LEEANN Elver Askew MD LAB - POINT OF CARE ORDERABLES [address] [place] [address], [place] [phone] * (ABNORMAL) DIFFERENTIAL MANUAL (10/31/2017 5:12 AM CDT) WBC (corrected for NRBC) 10.6 10? 3 /uL 10/31/2017 6:33 AM [facility] Total Cell Count 100 11/01/19 18 6:33 AM [facility] Neutrophils Absolute Manual 8.16(H) 1.60 - 7.00 10? 3 /uL 10/31/2017 6:33 AM [facility] Comment:(BANDS+SEGS) x WBC = NEUT # (ANC) Lymphocyte Absolute Manual 0.85 0.80 - 2.90 10? 3 /uL 10/31/2017 6:33 AM [facility] Monocytes Absolute Manual 1.59(H) 0.14 - 0.66 10? 3 /uL 10/31/2017 6:33 AM [facility] Band % Manual 2 0 - 10 % 10/31/2017 6:33 AM [facility] Neutrophil % Manual 75(H) 30 - 60 % 10/31/2017 6:33 AM [facility] Lymphocyte % Manual 8(L) 20 - 45 % 10/31/2017 6:33 AM [facility] Monocytes % Manual 15(H) 2 - 10 % 10/31/2017 6:33 AM [facility] Platelet Estimate Decreased (A) Adequate 10/31/2017 6:33 AM [facility] Anisocytosis 1+(A) None 10/31/2017 6:33 AM [facility] Macrocytosis 1+(A) None 10/31/2017 6:33 AM [facility] Giant Platelets Rare(A) None 8 6:33 AM [facility] Blood BLOOD SPECIMEN / Unknown Lab Venipuncture / Unknown 10/31/2017 5:12 AM CDT 10/31/2017 5:30 AM CDT Ronaldo Flynn DO LAB - [place] [address], [place] [phone] * (ABNORMAL) CBC W AUTO DIFFERENTIAL (10/31/2017 5:12 AM CDT) WBC 10.6(H) 3.5 - 10.5 10? 3 /uL 10/31/2017 5:46 AM [facility] RBC 2.37(L) 3.90 - 5.00 10? 6 /uL 10/31/2017 5:46 AM [facility] Hemoglobin 7.7(L) 12.0 - 15.5 g/dL 10/31/2017 5:46 AM [facility] Hematocrit 23.8(L) 35.0 - 45.0 % 10/31/2017 5:46 AM [facility] MCV 100.4(H) 81.0 - 97.0 fL 10/31/2017 5:46 AM [facility] MCH 32.5 28.0 - 34.0 pg 10/31/2017 5:46 AM [facility] MCHC 32.4 32.0 - 36.0 g/dL 10/31/2017 5:46 AM [facility] Platelet Count 137(L) 150 - 400 10? 3 /uL 10/31/2017 5:46 AM [facility] RDW-SD 81.2(H) 36.0 - 50.0 fL 10/31/2017 5:46 AM [facility] RDW-CV 23.7(H) 11.2 - 14.8 % 10/31/2017 5:46 AM [facility] MPV 9.2(L) 9.3 - 12.8 fL 10/31/2017 5:46 AM [facility] Reflex Status Manual Differential to follow. 10/31/2017 5:46 AM [facility] Blood BLOOD SPECIMEN / Unknown Lab Venipuncture / Unknown 10/31/2017 5:12 AM CDT 10/31/2017 5:30 AM CDT Ronaldo Flynn DO LAB - HEMATOLOGY ORD ERABLES [facility] [address] [phone] * PT-INR [facility] (10/31/2017 5:12 AM CDT) Pathologist [facility] PT 14.6 12.1 - 14.8 Seconds 10/31/2017 5:46 AM CDT [facility] INR 1.2 See Comment 10/31/2017 5:46 AM CDT [facility] Comment: Suggested therapeutic range for low-intensity coumadin therapy for venous thromboembolism prophylaxis is an INR of 2.0-3.0. ??For high risk patients (Mitral Valve Prosthesis, Atrial Fibrillation, history of TIA/stroke), suggested prophylactic therapeutic range is an INR of 2.5-3.5. Blood BLOOD SPECIMEN / Unknown Lab Venipuncture / Unknown 10/31/2017 5:12 AM CDT 10/31/2017 5:30 AM CDT Reuben Tellez MD LAB - COAGULATION OR DERABLES [address] [phone] * (ABNORMAL) CORTISOL BLOOD AM (10/31/2017 5:12 AM CDT) [facility] Cortisol AM 29.3(H) 3.7 - 19.4 mcg/dL 10/31/2017 8:48 AM CDT [facility] Blood BLOOD SPECIMEN / Unknown Lab Venipuncture / Unknown 10/31/2017 5:12 AM CDT 10/31/2017 5:30 AM CDT Andrew Ruiz MD LAB - CHEMISTRY ORDERABLES [address] [phone] * TISSUE TRANSGLUTAMINASE AB IGA (10/31/2017 5:12 AM CDT) Pathologist [facility] TTG Antibody IgA <2 0 - 3 U/mL 11/02/2017 1:13 PM CDT [facility] ([facility]) Comment: ?Negative ?0 - ??3 ?Weak Positive ?? 4 - 10 ?Positive ? >10 Tissue Transglutaminase (tTG) has been identified as the endomysial antigen. ??Studies have demonstr- ated that endomysial IgA antibodies have over 99% specificity for gluten sensitive enteropathy. Blood BLOOD SPECIMEN / Unknown Lab Venipuncture / Unknown 10/31/2017 5:12 AM CDT 10/31/2017 5:29 AM CDT Narrative [facility] ([facility]) - 11/02/2017 1:13 PM CDT Performed at: ??01 - [facility] [address] [place], [place] ??[id number] Director Of Advertising Sales: Dimitrios Abad PhD, Phone: ??[phone] Andrew Ruiz MD LAB - SEROLOGY O RDERABLES [facility]) [address] [place] [address], [facility] * (ABNORMAL) COMPREHENSIVE METABOLIC PANEL (10/31/2017 4:04 AM CDT) BUN 33(H) 7 - 26 mg/dL 10/31/2017 5:01 AM CDT [facility] Creatinine 1.3(H) 0.6 - 1.2 mg/dL 10/31/2017 5:01 AM CDT [facility] Sodium 138 136 - 145 mmol/L 10/31/2017 5:01 AM CDT [facility] Potassium 5.3(H) 3.5 - 4.5 mmol/L 10/31/2017 5:01 AM CDT [facility] Chloride 102 98 - 107 mmol/L 10/31/2017 5:01 AM CDT [facility] CO2 21(L) 22 - 29 mmol/L 10/31/2017 5:01 AM [facility] Glucose 123(H) 70 - 115 mg/dL 10/31/2017 5:01 AM [facility] Calcium 9.6 8.4 - 10.2 mg/dL 10/31/2017 5:01 AM [facility] Protein Total 5.8(L) 6.0 - 8.3 g/dL 10/31/2017 5:01 AM [facility] Albumin 3.2(L) 3.4 - 5.0 g/dL 10/31/2017 5:01 AM [facility] Bilirubin Total 1.5(H) 0.2 - 1.2 mg/dL 10/31/2017 5:01 AM [facility] Alkaline Phosphatase 512(H) 40 - 150 Units/L 10/31/2017 5:01 AM [facility] ALT 32 0 - 55 Units/L 10/31/2017 5:01 AM [facility] AST 56(H) 5 - 34 Units/L 10/31/2017 5:01 AM [facility] Anion Gap 20(H) 8 - 18 10/31/2017 5:01 AM [facility] BUN/Creatinine Ratio 25(H) 7 - 23 10/31/2017 5:01 AM [facility] Osmolality Calculated 295 270 - 300 mOsm/kg 10/31/2017 5:01 AM [facility] Albumin/Globulin Ratio 1.2 1.1 - 2.3 10/31/2017 5:01 AM [facility] eGFR 42(L) >60 mL/min/1.7 3 m2 10/31/2017 5:01 AM [facility] Blood BLOOD SPECIMEN / Unknown Lab Venipuncture / Unknown 10/31/2017 4:04 AM CDT 10/31/2017 4:[address] [facility] Elver Askew MD LAB - CHEMISTRY ORDERABLES [facility] [address] [phone] * CORTISOL BLOOD AM (10/31/2017 4:04 AM CDT) Cortisol AM 16.0 3.7 - 19.4 mcg/dL 10/31/2017 5:57 AM CDT [facility] Blood BLOOD SPECIMEN / Unknown Lab Venipuncture / Unknown 10/31/2017 4:04 AM CDT 10/31/2017 4:20 AM CDT Elver Askew MD LAB - CHEMISTRY ORDERABLES [address] [phone] * (ABNORMAL) GLUCOSE - POINT OF CARE (10/31/2017 12:10 AM CDT) Glucose WB/POC 120(H) 70 - 115 mg/dL 10/31/2017 12:23 AM CDT [facility] Specimen Type Arterial/C apillary 10/31/2017 12:23 AM CDT [facility] Blood BLOOD SPECIMEN / Unknown 10/31/2017 12:10 AM CDT 10/31/2017 12:23 AM CDT [facility] - 10/31/2017 12:23 AM CDT Senior Accounting Analyst: RAQUEL PEARL Elver Askew MD LAB - POINT OF CARE ORDERABLES Performing Organization Address [facility]/ZIP Co de Phone Number [address] [phone] * (ABNORMAL) GLUCOSE - POINT OF CARE (10/30/2017 8:05 PM CDT) Glucose WB/POC 233(H) 70 - 115 mg/dL 10/30/2017 8:18 PM CDT [facility] Specimen Type Arterial/C apillary 10/30/2017 8:18 PM CDT [facility] Blood BLOOD SPECIMEN / Unknown 10/30/2017 8:05 PM CDT 10/30/2017 8:18 PM CDT [facility] - 10/30/2017 8:18 PM CDT Senior Accounting Analyst: RAQUEL ?AMI Elver Askew MD LAB - POINT OF CARE ORDERABLES Performing Organization Address [facility]/ZIP Co de Phone Number [address] [phone] * (ABNORMAL) GLUCOSE - POINT OF CARE (10/30/2017 6:16 PM CDT) [facility] Glucose WB/POC 175(H) 70 - 115 mg/dL 10/30/2017 6:33 PM CDT [facility] Specimen Type Arterial/C apillary 10/30/2017 6:33 PM CDT [facility] Blood BLOOD SPECIMEN / Unknown 10/30/2017 6:16 PM CDT 10/30/2017 6:33 PM CDT [facility] - 10/30/2017 6:33 PM CDT Senior Accounting Analyst: ROSEANNE ??BASIL Elver Askew MD LAB - POINT OF CARE ORDERABLES Performing Organization Address [facility]/ZIP Co de Phone Number [address] [phone] * PANCREATIC ELASTASE FECES (10/30/2017 3:28 PM CDT) [facility] Pancreatic Elastase 413 >=201 ug/g 11/04/2017 1:00 PM CDT [facility] ([facility]) Comment: REFERENCE INTERVAL: Pancreatic Elastase, Fecal by BELEN ??Greater than 200 ug/g ........ Normal ??100-200 ug/g ................. Moderate to mild ? pancreatic insufficiency ??Less than 100 ug/g ........... Severe exocrine ? pancreatic insufficiency Reference range does not apply for infants less than one month old. Performed by [employer], [address] [place] [address] [email or web address], oPli Lamas MD, Lab. Director Stool STOOL SPECIMEN / Unknown Collection / Unknown 10/30/2017 3:28 PM CDT 10/30/2017 3:32 PM CDT Andrew Ruiz MD LAB - BODY FLUID ORDERABLES [facility] [address] [place], [place] [address] * (ABNORMAL) GLUCOSE - POINT OF CARE (10/30/2017 12:49 PM CDT) Glucose WB/POC 120(H) 70 - 115 mg/dL 10/30/2017 1:06 PM CDT [facility] Specimen Type Arterial/C apillary 10/30/2017 1:06 PM CDT [facility] Blood BLOOD SPECIMEN / Unknown 10/30/2017 12:49 PM CDT 10/30/2017 1:06 PM CDT [facility] - 10/30/2017 1:06 PM CDT Senior Accounting Analyst: KAROLINA ROACH Elver Askew MD LAB - POINT OF CARE ORDERABLES [address] [phone] * (ABNORMAL) GLUCOSE - POINT OF CARE (10/30/2017 8:55 AM CDT) Glucose WB/POC 152(H) 70 - 115 mg/dL 10/30/2017 9:12 AM CDT [facility] Specimen Type Arterial/C apillary 10/30/2017 9:12 AM CDT [facility] Blood BLOOD SPECIMEN / Unknown 10/30/2017 8:55 AM CDT 10/30/2017 9:12 AM CDT Narrative [facility] - 10/30/2017 9:12 AM CDT Senior Accounting Analyst: ROSEANNE ??BASIL Elver Askew MD LAB - POINT OF CARE ORDERABLES [address] [phone] * (ABNORMAL) GLUCOSE - POINT OF CARE (10/30/2017 6:53 AM CDT) Glucose WB/POC 128(H) 70 - 115 mg/dL 10/30/2017 7:09 AM CDT [facility] Specimen Type Arterial/C apillary 10/30/2017 7:09 AM T [facility] Blood BLOOD SPECIMEN / Unknown 10/30/2017 6:53 AM CDT 10/30/2017 7:09 AM CDT Narrative [facility] - 10/30/2017 7:09 AM CDT Senior Accounting Analyst: XIMENA ??RAINER Elver Askew MD LAB - POINT OF CARE ORDERABLES Performing Organization Address [facility]/ZIP Co de Phone Number [address] [phone] * (ABNORMAL) DIFFERENTIAL MANUAL (10/30/2017 5:53 AM CDT) Pathologist [facility] WBC (corrected for NRBC) 9.7 10? 3 /uL 10/30/2017 8:01 AM [facility] Total Cell Count 100 10/31/19 18 8:01 AM [facility] Neutrophils Absolute Manual 8.15(H) 1.60 - 7.00 10? 3 /uL 10/30/2017 8:01 AM [facility] Comment:(BANDS+SEGS) x WBC = NEUT # (ANC) Lymphocyte Absolute Manual 0.97 0.80 - 2.90 10? 3 /uL 10/30/2017 8:01 AM [facility] Monocytes Absolute Manual 0.58 0.14 - 0.66 10? 3 /uL 10/30/2017 8:01 AM [facility] Neutrophil % Manual 84(H) 30 - 60 % 10/30/2017 8:01 AM [facility] Lymphocyte % Manual 10(L) 20 - 45 % 10/30/2017 8:01 AM [facility] Monocytes % Manual 6 2 - 10 % 10/30/2017 8:01 AM [facility] Platelet Estimate Decreased (A) Adequate 10/30/2017 8:01 AM [facility] Anisocytosis 1+(A) None 10/30/2017 8:01 AM [facility] Macrocytosis 1+(A) None 10/30/2017 8:01 AM [facility] Polychromasia 1+(A) None 10/30/2017 8:01 AM [facility] Basophilic Stippling 1+(A) None 10/30/2017 8:01 AM [facility] Blood BLOOD SPECIMEN / Unknown 10/30/2017 5:53 AM CDT 10/30/2017 5:57 AM CDT Ronaldo Flynn DO LAB - HEMATOLOGY ORD ERABLES Performing Organization Address City/State/[facility] Co de Phone Number [address] [phone] * (ABNORMAL) CBC W AUTO DIFFERENTIAL (10/30/2017 5:53 AM CDT) WBC 9.7 3.5 - 10.5 10? 3 /uL 10/30/2017 6:39 AM [facility] RBC 2.37(L) 3.90 - 5.00 10? 6 /uL 10/30/2017 6:39 AM [facility] Hemoglobin 7.7(L) 12.0 - 15.5 g/dL 10/30/2017 6:39 AM [facility] Hematocrit 23.6(L) 35.0 - 45.0 % 10/30/2017 6:39 AM [facility] MCV 99.6(H) 81.0 - 97.0 fL 10/30/2017 6:39 AM [facility] MCH 32.5 28.0 - 34.0 pg 10/30/2017 6:39 AM [facility] MCHC 32.6 32.0 - 36.0 g/dL 10/30/2017 6:39 AM [facility] Platelet Count 102(L) 150 - 400 10? 3 /uL 10/30/2017 6:39 AM [facility] Comment:Confirmed by repeat analysis. RDW-SD 76.1(H) 36.0 - 50.0 fL 10/30/2017 6:39 AM [facility] RDW-CV 23.1(H) 11.2 - 14.8 % 10/30/2017 6:39 AM [facility] MPV 10.0 9.3 - 12.8 fL 10/30/2017 6:39 AM [facility] nRBC Absolute 0.00 0 10? 3 /uL 10/30/2017 6:39 AM [facility] nRBC Auto 0.0 0 /100 WBC 10/30/2017 6:39 AM [facility] Blood BLOOD SPECIMEN / Unknown 10/30/2017 5:53 AM CDT 10/30/2017 5:57 AM CDT Ronaldo Flynn DO LAB - HEMATOLOGY ORD ERABLES Performing Organization Address City/[facility] Co de Phone Number [address] [phone] * PT-INR [facility] (10/30/2017 5:53 AM CDT) PT 14.5 12.1 - 14.8 Seconds 10/30/2017 6:11 AM [facility] INR 1.1 See Comment 10/30/2017 6:11 AM [facility] Comment: Suggested therapeutic range for low-intensity coumadin therapy for venous thromboembolism prophylaxis is an INR of 2.0-3.0. ??For high risk patients (Mitral Valve Prosthesis, Atrial Fibrillation, history of TIA/stroke), suggested prophylactic therapeutic range is an INR of 2.5-3.5. Blood BLOOD SPECIMEN / Unknown 10/30/2017 5:53 AM CDT 10/30/2017 5:57 AM CDT Reuben Tellez MD LAB - COAGULATION OR DERABLES [facility] [address] [phone] * (ABNORMAL) COMPREHENSIVE METABOLIC PANEL (10/30/2017 5:[address] [facility]) BUN 22 7 - 26 mg/dL 10/30/2017 7:02 AM [facility] Creatinine 1.0 0.6 - 1.2 mg/dL 10/30/2017 7:02 AM [facility] Sodium 138 136 - 145 mmol/L 10/30/2017 7:02 AM [facility] Potassium 2.9(LL) 3.5 - 4.5 mmol/L 10/30/2017 7:02 AM [facility] Chloride 100 98 - 107 mmol/L 10/30/2017 7:02 AM [facility] CO2 26 22 - 29 mmol/L 10/30/2017 7:02 AM [facility] Glucose 121(H) 70 - 115 mg/dL 10/30/2017 7:02 AM [facility] Calcium 9.2 8.4 - 10.2 mg/dL 10/30/2017 7:02 AM [facility] Protein Total 5.6(L) 6.0 - 8.3 g/dL 10/30/2017 7:02 AM [facility] Albumin 3.3(L) 3.4 - 5.0 g/dL 10/30/2017 7:02 AM [facility] Bilirubin Total 1.8(H) 0.2 - 1.2 mg/dL 10/30/2017 7:02 AM [facility] Alkaline Phosphatase 522(H) 40 - 150 Units/L 10/30/2017 7:02 AM [facility] ALT 28 0 - 55 Units/L 10/30/2017 7:02 AM [facility] AST 51(H) 5 - 34 Units/L 10/30/2017 7:02 AM [facility] Anion Gap 15 8 - 18 10/30/2017 7:02 AM [facility] BUN/Creatinine Ratio 22 7 - 23 10/30/2017 7:02 AM [facility] Osmolality Calculated 291 270 - 300 mOsm/kg 10/30/2017 7:02 AM CDT [facility] Albumin/Globulin Ratio 1.4 1.1 - 2.3 10/30/2017 7:02 AM CDT [facility] eGFR 57(L) >60 mL/min/1.7 3 m2 10/30/2017 7:02 AM CDT [facility] Blood BLOOD SPECIMEN / Unknown 10/30/2017 5:53 AM CDT 10/30/2017 5:57 AM CDT Elver Askew MD LAB - CHEMISTRY ORDERABLES [address] [phone] * GLUCOSE - POINT OF CARE (10/29/2017 9:45 PM CDT) Glucose WB/POC 84 70 - 115 mg/dL 10/29/2017 10:02 PM CDT [facility] Specimen Type Arterial/C apillary 10/29/2017 10:02 PM CDT [facility] Blood BLOOD SPECIMEN / Unknown 10/29/2017 9:45 PM CDT 10/29/2017 10:02 PM CDT Narrative [facility] - 10/29/2017 10:02 PM CDT Senior Accounting Analyst: GREG ??KRISTIN Elver Askew MD LAB - POINT OF CARE ORDERABLES Performing Organization Address City/[facility]/ZIP Co de Phone Number [address] [phone] * [place] SWALLOWING FUNCTION STUDY (10/29/2017 2:15 PM CDT) Anatomical Region Laterality Modality Chest [...] Elver Askew MD FLUOROSCOPY ORD ERABLES * GLUCOSE - POINT OF CARE (10/29/2017 11:53 AM CDT) Glucose WB/POC 103 70 - 115 mg/dL 10/29/2017 12:34 PM CDT [facility] Specimen Type Arterial/C apillary 10/29/2017 12:34 PM CDT [facility] Blood BLOOD SPECIMEN / Unknown 10/29/2017 11:53 AM CDT 10/29/2017 12:34 PM CDT Narrative [facility] - 10/29/2017 12:34 PM CDT Senior Accounting Analyst: ILYA ?JESUS Elver Askew MD LAB - POINT OF CARE ORDERABLES [facility] [address] [phone] * GLUCOSE - POINT OF CARE (10/29/2017 6:14 AM CDT) Glucose WB/POC 113 70 - 115 mg/dL 10/29/2017 6:37 AM CDT [facility] Specimen Type Arterial/C apillary 10/29/2017 6:37 AM CDT [facility] Blood BLOOD SPECIMEN / Unknown 10/29/2017 6:14 AM CDT 10/29/2017 6:37 AM CDT Narrative [facility] - 10/29/2017 6:37 AM CDT Senior Accounting Analyst: VINOD ?ANASTASIYA Elver Askew MD LAB - POINT OF CARE ORDERABLES Performing Organization Address [facility] Co de Phone Number [address] [phone] * (ABNORMAL) RBC MORPHOLOGY (10/29/2017 5:39 AM CDT) Anisocytosis 1+(A) None 10/29/2017 7:27 AM T [facility] Macrocytosis 1+(A) None 10/29/2017 7:27 AM CDT [facility] Blood BLOOD SPECIMEN / Unknown 10/29/2017 5:39 AM CDT 10/29/2017 6:18 AM CDT Ronaldo Flynn DO LAB - HEMATOLOGY ORD ERABLES Performing Organization Address [facility] Co de Phone Number [address] [phone] * (ABNORMAL) CBC W AUTO DIFFERENTIAL (10/29/2017 5:39 AM CDT) WBC 10.6(H) 3.5 - 10.5 10? 3 /uL 10/29/2017 6:42 AM [facility] RBC 2.31(L) 3.90 - 5.00 10? 6 /uL 10/29/2017 6:42 AM [facility] Hemoglobin 7.6(L) 12.0 - 15.5 g/dL 10/29/2017 6:42 AM [facility] Hematocrit 22.6(L) 35.0 - 45.0 % 10/29/2017 6:42 AM [facility] MCV 97.8(H) 81.0 - 97.0 fL 10/29/2017 6:42 AM [facility] MCH 32.9 28.0 - 34.0 pg 10/29/2017 6:42 AM [facility] MCHC 33.6 32.0 - 36.0 g/dL 10/29/2017 6:42 AM [facility] Platelet Count 64(L) 150 - 400 10? 3 /uL 10/29/2017 6:42 AM [facility] RDW-SD 52.8(H) 36.0 - 50.0 fL 10/29/2017 6:42 AM [facility] RDW-CV 22.3(H) 11.2 - 14.8 % 10/29/2017 6:42 AM [facility] MPV 10.5 9.3 - 12.8 fL 10/29/2017 6:42 AM [facility] Neutrophils % 80.1(H) 35.0 - 70.0 % 10/29/2017 6:42 AM [facility] Lymphocytes % 10.3(L) 19.7 - 55.1 % 10/29/2017 6:42 AM [facility] Monocytes % 8.5 3.0 - 15.0 % 10/29/2017 6:42 AM [facility] Eosinophils % 0.9 0.0 - 6.0 % 10/29/2017 6:42 AM [facility] Basophil % 0.2 0.0 - 1.5 % 10/29/2017 6:42 AM [facility] Neutrophils Absolute 8.5(H) 1.6 - 7.0 10? 3 /uL 10/29/2017 6:42 AM [facility] Lymphocyte Absolute 1.1 0.8 - 2.9 10? 3 /uL 10/29/2017 6:42 AM [facility] Monocytes Absolute 0.90(H) 0.14 - 0.66 10? 3 /uL 10/29/2017 6:42 AM [facility] Eosinophils Absolute 0.09 0.00 - 0.22 10? 3 /uL 10/29/2017 6:42 AM [facility] Basophils Absolute 0.02 0.00 - 0.06 10? 3 /uL 10/29/2017 6:42 AM [facility] Immature Granulocytes % 0.8 0.0 - 1.0 % 10/29/2017 6:42 AM [facility] Blood BLOOD SPECIMEN / Unknown 10/29/2017 5:39 AM CDT 10/29/2017 6:18 AM CDT Ronaldo Flynn DO LAB - HEMATOLOGY ORD ERABLES Performing Organization Address City/State/[facility] Co de Phone Number [facility] [address] [phone] * (ABNORMAL) COMPREHENSIVE METABOLIC PANEL (10/29/2017 12:[address] [facility]) BUN 45(H) 7 - 26 mg/dL 10/29/2017 1:12 AM [facility] Creatinine 1.4(H) 0.6 - 1.2 mg/dL 10/29/2017 1:12 AM [facility] Sodium 139 136 - 145 mmol/L 10/29/2017 1:12 AM [facility] Potassium 3.5 3.5 - 4.5 mmol/L 10/29/2017 1:12 AM [facility] Chloride 105 98 - 107 mmol/L 10/29/2017 1:12 AM [facility] CO2 20(L) 22 - 29 mmol/L 10/29/2017 1:12 AM [facility] Glucose 127(H) 70 - 115 mg/dL 10/29/2017 1:12 AM [facility] Calcium 9.1 8.4 - 10.2 mg/dL 10/29/2017 1:12 AM [facility] Protein Total 5.1(L) 6.0 - 8.3 g/dL 10/29/2017 1:12 AM [facility] Albumin 3.3(L) 3.4 - 5.0 g/dL 10/29/2017 1:12 AM [facility] Bilirubin Total 1.4(H) 0.2 - 1.2 mg/dL 10/29/2017 1:12 AM [facility] Alkaline Phosphatase 460(H) 40 - 150 Units/L 10/29/2017 1:12 AM [facility] ALT 22 0 - 55 Units/L 10/29/2017 1:12 AM [facility] AST 40(H) 5 - 34 Units/L 10/29/2017 1:12 AM [facility] Anion Gap 18 8 - 18 10/29/2017 1:12 AM [facility] BUN/Creatinine Ratio 32(H) 7 - 23 10/29/2017 1:12 AM [facility] Osmolality Calculated 301(H) 270 - 300 mOsm/kg 10/29/2017 1:12 AM [facility] Albumin/Globulin Ratio 1.8 1.1 - 2.3 10/29/2017 1:12 AM [facility] eGFR 39(L) >60 mL/min/1.7 3 m2 10/29/2017 1:12 AM [facility] Blood BLOOD SPECIMEN / Unknown Lab Venipuncture / Unknown 10/29/2017 12:08 AM CDT 10/29/2017 12:40 AM CDT Elver Askew MD LAB - CHEMISTRY ORDERABLES Performing Organization Address City/[facility]/ZIP Co de Phone Number [address] [phone] * PTT [facility] (10/29/2017 12:08 AM CDT) [facility] APTT 30.3 23.0 - 38.4 Seconds 10/29/2017 12:52 AM [facility] Comment: Suggested therapeutic range for full dose I.V. heparin therapy for venous thromboembolism is 66.0-91.0 seconds. Blood BLOOD SPECIMEN / Unknown Lab Venipuncture / Unknown 10/29/2017 12:08 AM CDT 10/29/2017 12:40 AM CDT Reuben Tellez MD LAB - [place] [address], [facility] [phone] * PT-INR [facility] (10/29/2017 12:08 AM CDT) [facility] PT 14.1 12.1 - 14.8 Seconds 10/29/2017 12:52 AM [facility] INR 1.1 See Comment 10/29/2017 12:52 AM [facility] Comment: Suggested therapeutic range for low-intensity coumadin therapy for venous thromboembolism prophylaxis is an INR of 2.0-3.0. ??For high risk patients (Mitral Valve Prosthesis, Atrial Fibrillation, history of TIA/stroke), suggested prophylactic therapeutic range is an INR of 2.5-3.5. Blood BLOOD SPECIMEN / Unknown Lab Venipuncture / Unknown 10/29/2017 12:08 AM CDT 10/29/2017 12:40 AM T Reuben Tellez MD LAB - COAGULATION OR DERABLES Performing Organization Address City/State/[facility] Co de Phone Number [address] [address] [phone] * (ABNORMAL) HEPATIC FUNCTION PANEL (10/29/2017 12:08 AM CDT) [facility] Protein Total 5.1(L) 6.0 - 8.3 g/dL 018 1:12 AM [facility] Albumin 3.3(L) 3.4 - 5.0 g/dL 10/29/2017 1:12 AM [facility] Bilirubin Total 1.4(H) 0.2 - 1.2 mg/dL 10/15 1:12 AM [facility] Bilirubin Conjugated 0.7(H) 0.0 - 0.5 mg/dL 10/29/2017 1:12 AM [facility] Bilirubin Unconjugated 0.7 Unconjugated Bilirubin is a calculated value: Reference ranges have not been established. mg/dL 10/29/2017 1:12 AM [facility] Alkaline Phosphatase 460(H) 40 - 150 Units/L 10/29/2017 1:12 AM [facility] ALT 22 0 - 55 Units/L 10/29/2017 1:12 AM [facility] AST 40(H) 5 - 34 Units/L 10/29/2017 1:12 AM [facility] Albumin/Globulin Ratio 1.8 1.1 - 2.3 10/29/2017 1:12 AM [facility] Blood BLOOD SPECIMEN / Unknown Lab Venipuncture / Unknown 10/29/2017 12:08 AM CDT 10/29/2017 12:40 AM CDT Reuben Tellez MD LAB - CHEMISTRY SHIRLEY GARCIA [facility] Organization Address City/State/ZIP Co de Phone Number [facility] [address] [place] [address] * (ABNORMAL) CBC W/O DIFFERENTIAL (10/29/2017 12:08 AM CDT) WBC 10.1 3.5 - 10.5 10? 3 /uL 10/29/2017 1:04 AM [facility] RBC 2.29(L) 3.90 - 5.00 10? 6 /uL 10/29/2017 1:04 AM [facility] Hemoglobin 7.4(L) 12.0 - 15.5 g/dL 10/29/2017 1:04 AM [facility] Hematocrit 23.0(L) 35.0 - 45.0 % 10/29/2017 1:04 AM [facility] MCV 100.4(H) 81.0 - 97.0 fL 10/29/2017 1:04 AM [facility] MCH 32.3 28.0 - 34.0 pg 10/29/2017 1:04 AM [facility] MCHC 32.2 32.0 - 36.0 g/dL 10/29/2017 1:04 AM [facility] Platelet Count 59(L) 150 - 400 10? 3 /uL 10/29/2017 1:04 AM [facility] RDW-SD 54.2(H) 36.0 - 50.0 fL 10/29/2017 1:04 AM [facility] RDW-CV 22.4(H) 11.2 - 14.8 % 10/29/2017 1:04 AM [facility] MPV 10.7 9.3 - 12.8 fL 10/29/2017 1:04 AM CDT [facility] Blood BLOOD SPECIMEN / Unknown Lab Venipuncture / Unknown 10/29/2017 12:08 AM CDT 10/29/2017 12:40 AM CDT Andrew Ruiz MD LAB - HEMATOLOGY ORDERABLES Performing Organization Address [facility] Co de Phone Number [address] [phone] * (ABNORMAL) GLUCOSE - POINT OF CARE (10/28/2017 11:44 PM CDT) Glucose WB/POC 118(H) 70 - 115 mg/dL 10/29/2017 12:13 AM CDT [facility] Specimen Type Arterial/C apillary 10/29/2017 12:13 AM CDT [facility] Blood BLOOD SPECIMEN / Unknown 10/28/2017 11:44 PM CDT 10/29/2017 12:13 AM CDT [facility] - 10/29/2017 12:13 AM CDT Senior Accounting Analyst: BRITT ??BRANDON Elver Askew MD LAB - POINT OF CARE ORDERABLES Performing Organization Address [facility] Co de Phone Number [address] [phone] * (ABNORMAL) GLUCOSE - POINT OF CARE (10/28/2017 4:46 PM CDT) Glucose WB/POC 178(H) 70 - 115 mg/dL 10/28/2017 5:09 PM CDT [facility] Specimen Type Arterial/C apillary 10/28/2017 5:09 PM CDT [facility] Blood BLOOD SPECIMEN / Unknown 10/28/2017 4:46 PM CDT 10/28/2017 5:09 PM CDT [facility] - 10/28/2017 5:09 PM CDT Senior Accounting Analyst: MONET ??CORTEZ Elver Askew MD LAB - POINT OF CARE ORDERABLES [facility] [address] [phone] * FL SWALLOWING FUNCTION STUDY (10/28/2017 2:51 PM CDT) Anatomical Region Laterality Modality Chest Other 10/28/2017 2:51 PM CDT Impressions 10/28/2017 2:55 PM CDT Impression: Successful placement of right ??internal jugular tunneled dialysis catheter. I was present for the entire procedure. This report was electronically signed by [facility] AREVALO MD ??on 10/28/2017 2:55 PM . Narrative 10/28/2017 2:55 PM CDT This is an interventional nephrology procedure performed on 10/28/17 Senior Accounting Analyst: Marcia Arevalo Attending: Marcia Arevalo Procedures performed: [...] central veins under fluoroscopic guidance. ??A 5 Finnish trocar was placed and a 0.035 guidewire [...] with a 2-0 nylon suture. Procedure Note Luis F, MD Nathalie - 10/28/2017 This is an interventional nephrology procedure performed on 10/28/17 Senior Accounting Analyst: Marcia Arevalo Attending: Marcia Arevalo Procedures performed: [...] central veins under fluoroscopic guidance. A 5 Finnish trocar was placed and a 0.035 guidewire [...] AREVALO MD on 10/28/2017 2:55 PM . Reuben Tellez MD FLUOROSCOPY ORDERABL ES * IR CENTRAL LINE INSERT TUNNEL (10/28/2017 [...] an interventional nephrology procedure performed on 10/28/17 Senior Accounting Analyst: Marcia Arevalo Attending: Marcia Arevalo Procedures performed: [...] central veins under fluoroscopic guidance. ??A 5 Finnish trocar was placed and a 0.035 guidewire [...] with a 2-0 nylon suture. Procedure Note Luis F, MD Nathalie - 10/28/2017 This is an interventional nephrology procedure performed on 10/28/17 Senior Accounting Analyst: Marcia Arevalo Attending: Marcia Arevalo Procedures performed: [...] central veins under fluoroscopic guidance. A 5 Finnish trocar was placed and a 0.035 guidewire [...] . Nathalie Arevalo MD IR ORDERABLES * (ABNORMAL) GLUCOSE - POINT OF CARE (10/28/2017 11:25 AM CDT) Glucose WB/POC 154(H) 70 - 115 mg/dL 10/28/2017 11:46 AM CDT [facility] Specimen Type Arterial/C apillary 10/28/2017 11:46 AM CDT [facility] Blood BLOOD SPECIMEN / Unknown 10/28/2017 11:25 AM CDT 10/28/2017 11:46 AM CDT Narrative [facility] - 10/28/2017 11:46 AM CDT Senior Accounting Analyst: NADIA ?TIMBO Elver Askew MD LAB - POINT OF CARE ORDERABLES Performing Organization Address City/[facility]/ZIP Co de Phone Number [address] [phone] * TYPE + SCREEN PANEL (10/28/2017 8:51 AM CDT) Antibody Screen NEG 9:41 AM CDT [facility] ABO Rh O POS 10/28/2017 9:41 AM CDT [facility] Blood Bank BLOOD SPECIMEN / Unknown 10/28/2017 8:51 AM CDT 10/28/2017 8:52 AM CDT Andrew Ruiz MD LAB - BLOOD BANK ORDERABLES Performing Organization Address [facility]/ZIP Co de Phone Number [facility] [address] [place] [address] * (ABNORMAL) HEMOGLOBIN (10/28/2017 8:45 AM CDT) Hemoglobin 7.1(L) 12.0 - 15.5 g/dL 10/28/2017 8:54 AM CDT [facility] Blood BLOOD SPECIMEN / Unknown 10/28/2017 8:45 AM CDT 10/28/2017 8:53 AM CDT Andrew Ruiz MD LAB - HEMATOLOGY ORDERABLES Performing Organization Address City/[facility]/ZIP Co de Phone Number [address] [phone] * (ABNORMAL) GLUCOSE - POINT OF CARE (10/28/2017 6:38 AM CDT) Glucose WB/POC 170(H) 70 - 115 mg/dL 10/28/2017 7:08 AM CDT [facility] Specimen Type Arterial/C apillary 10/28/2017 7:08 AM CDT [facility] Blood BLOOD SPECIMEN / Unknown 10/28/2017 6:38 AM CDT 10/28/2017 7:08 AM CDT Narrative [facility] - 10/28/2017 7:08 AM CDT Senior Accounting Analyst: RICKY ??ANKITA Elver Askew MD LAB - POINT OF CARE ORDERABLES Performing Organization Address [facility]/ZIP Co de Phone Number [address] [phone] * PHOSPHORUS BLOOD (10/28/2017 5:31 AM CDT) Phosphorus 4.0 2.3 - 4.7 mg/dL 10/28/2017 7:36 AM T [facility] Comment:Confirmed by repeat analysis. Blood BLOOD SPECIMEN / Unknown Venipuncture / Unknown 10/28/2017 5:31 AM CDT 10/28/2017 5:50 AM CDT Cesar Rossi MD LAB - CHEMISTRY SHIRLEY GARCIA Performing Organization Address [facility] Co de Phone Number [address] [phone] * (ABNORMAL) RBC MORPHOLOGY (10/28/2017 5:31 AM CDT) Platelet Estimate Decreased (A) Adequate 10/28/2017 6:36 AM CDT [facility] Anisocytosis 1+(A) None 10/28/2017 6:36 AM CDT [facility] Macrocytosis 1+(A) None 10/28/2017 6:36 AM CDT [facility] Schistocytes Occasiona l(A) None 10/28/2017 6:36 AM CDT [facility] Ovalocytes Occasiona l(A) None 10/28/2017 6:36 AM CDT [facility] Blood BLOOD SPECIMEN / Unknown Venipuncture / Unknown 10/28/2017 5:31 AM CDT 10/28/2017 5:50 AM CDT Ronaldo Flynn LAB - HEMATOLOGY ORD ERABLES [facility] [address] [phone] * (ABNORMAL) CBC W AUTO DIFFERENTIAL (10/28/2017 5:31 AM CDT) WBC 9.7 3.5 - 10.5 10? 3 /uL 10/28/2017 6:02 AM [facility] Comment:All CBC parameters h ave been checked. RBC 2.13(L) 3.90 - 5.00 10? 6 /uL 10/28/2017 6:02 AM [facility] Hemoglobin 6.9(L) 12.0 - 15.5 g/dL 10/28/2017 6:02 AM [facility] Hematocrit 21.1(L) 35.0 - 45.0 % 10/28/2017 6:02 AM [facility] MCV 99.1(H) 81.0 - 97.0 fL 10/28/2017 6:02 AM [facility] MCH 32.4 28.0 - 34.0 pg 10/28/2017 6:02 AM [facility] MCHC 32.7 32.0 - 36.0 g/dL 10/28/2017 6:02 AM [facility] Platelet Count 38(L) 150 - 400 10? 3 /uL 10/28/2017 6:02 AM [facility] RDW-SD 51.9(H) 36.0 - 50.0 fL 10/28/2017 6:02 AM [facility] RDW-CV 22.0(H) 11.2 - 14.8 % 10/28/2017 6:02 AM [facility] MPV 10.8 9.3 - 12.8 fL 10/28/2017 6:02 AM [facility] Neutrophils % 78.1(H) 35.0 - 70.0 % 10/28/2017 6:02 AM [facility] Lymphocytes % 11.0(L) 19.7 - 55.1 % 10/28/2017 6:02 AM [facility] Monocytes % 10.4 3.0 - 15.0 % 10/28/2017 6:02 AM [facility] Eosinophils % 0.4 0.0 - 6.0 % 10/28/2017 6:02 AM [facility] Basophil % 0.1 0.0 - 1.5 % 10/28/2017 6:02 AM [facility] Neutrophils Absolute 7.6(H) 1.6 - 7.0 10? 3 /uL 10/28/2017 6:02 AM [facility] Lymphocyte Absolute 1.1 0.8 - 2.9 10? 3 /uL 10/28/2017 6:02 AM [facility] Monocytes Absolute 1.01(H) 0.14 - 0.66 10? 3 /uL 10/28/2017 6:02 AM [facility] Eosinophils Absolute 0.04 0.00 - 0.22 10? 3 /uL 10/28/2017 6:02 AM [facility] Basophils Absolute 0.01 0.00 - 0.06 10? 3 /uL 10/28/2017 6:02 AM [facility] Reflex Status Morphology review to follow. 10/28/2017 6:02 AM [facility] Immature Granulocytes % 0.8 0.0 - 1.0 % 10/28/2017 6:02 AM [facility] Blood BLOOD SPECIMEN / Unknown Venipuncture / Unknown 10/28/2017 5:31 AM CDT 10/28/2017 5:50 AM T Ronaldo Flynn DO LAB - HEMATOLOGY ORD ERABLES [facility] [address] [phone] * PTT [facility] (10/28/2017 5:31 AM CDT) APTT 37.4 23.0 - 38.4 Seconds 10/28/2017 6:07 AM [facility] Comment: Suggested therapeutic range for full dose I.V. heparin therapy for venous thromboembolism is 66.0-91.0 seconds. Blood BLOOD SPECIMEN / Unknown Venipuncture / Unknown 10/28/2017 5:31 AM CDT 10/28/2017 5:50 AM CDT Reuben Tellez MD LAB - COAGULATION OR DERABLES Performing Organization Address [facility] Co de Phone Number [address] [phone] * (ABNORMAL) PT-INR [facility] (10/28/2017 5:31 AM CDT) PT 15.6(H) 12.1 - 14.8 Seconds 10/28/2017 6:07 AM T [facility] INR 1.3 See Comment 10/28/2017 6:07 AM [facility] Comment: Suggested therapeutic range for low-intensity coumadin therapy for venous thromboembolism prophylaxis is an INR of 2.0-3.0. ??For high risk patients (Mitral Valve Prosthesis, Atrial Fibrillation, history of TIA/stroke), suggested prophylactic therapeutic range is an INR of 2.5-3.5. Blood BLOOD SPECIMEN / Unknown Venipuncture / Unknown 10/28/2017 5:31 AM CDT 10/28/2017 5:50 AM CDT Reuben Tellez MD LAB - COAGULATION OR DERABLES Performing Organization Address [facility] Co de Phone Number [address] [phone] * (ABNORMAL) COMPREHENSIVE METABOLIC PANEL (10/28/2017 5:31 AM CDT) BUN 34(H) 7 - 26 mg/dL 10/28/2017 6:29 AM T [facility] Creatinine 1.3(H) 0.6 - 1.2 mg/dL 10/28/2017 6:29 AM T [facility] Sodium 140 136 - 145 mmol/L 10/28/2017 6:29 AM T [facility] Potassium 3.2(L) 3.5 - 4.5 mmol/L 10/28/2017 6:29 AM T [facility] Chloride 105 98 - 107 mmol/L 10/28/2017 6:29 AM [facility] CO2 24 22 - 29 mmol/L 10/28/2017 6:29 AM [facility] Glucose 167(H) 70 - 115 mg/dL 10/28/2017 6:29 AM [facility] Calcium 9.2 8.4 - 10.2 mg/dL 10/28/2017 6:29 AM [facility] Protein Total 5.3(L) 6.0 - 8.3 g/dL 10/28/2017 6:29 AM [facility] Albumin 3.6 3.4 - 5.0 g/dL 10/28/2017 6:29 AM [facility] Bilirubin Total 1.3(H) 0.2 - 1.2 mg/dL 10/28/2017 6:29 AM [facility] Alkaline Phosphatase 453(H) 40 - 150 Units/L 10/28/2017 6:29 AM [facility] ALT 16 0 - 55 Units/L 10/28/2017 6:29 AM [facility] AST 28 5 - 34 Units/L 10/28/2017 6:29 AM [facility] Anion Gap 14 8 - 18 10/28/2017 6:29 AM [facility] BUN/Creatinine Ratio 26(H) 7 - 23 10/28/2017 6:29 AM [facility] Osmolality Calculated 301(H) 270 - 300 mOsm/kg 10/28/2017 6:29 AM [facility] Albumin/Globulin Ratio 2.1 1.1 - 2.3 10/28/2017 6:29 AM [facility] eGFR 42(L) >60 mL/min/1.7 3 m2 10/28/2017 6:29 AM [facility] Blood BLOOD SPECIMEN / Unknown Venipuncture / Unknown 10/28/2017 5:31 AM CDT 10/28/2017 5:[address] [facility] Elver Askew MD LAB - CHEMISTRY ORDERABLES [facility] [address] [phone] * (ABNORMAL) VITAMIN D 1,25 DIHYDROXY (10/28/2017 5:31 AM CDT) Pathologist [facility] Calcitriol (1,25 di-OH Vit D) 8.3(L) 19.9 - 79.3 pg/mL 11/01/2017 5:10 PM CDT [facility] ([facility]) Blood BLOOD SPECIMEN / Unknown Venipuncture / Unknown 10/28/2017 5:31 AM CDT 10/28/2017 5:50 AM CDT Narrative [facility] ([facility]) - 11/01/2017 5:10 PM CDT Performed at: ??01 - [address] ??[id number] Director Of Advertising Sales: Isra Milton MD, Phone: ??[phone] Andrew Ruiz MD LAB - CHEMISTRY ORDERABLES Performing Organization Address [facility] de Phone Number [facility] [address] [place] [address], [place] * MITOCHONDRIAL ANTIBODY SCREEN (10/28/2017 5:31 AM CDT) Pathologist [facility] Mitochondrial M2 Antibody 1.9 0.0 - 20.0 Units 10/29/2017 11:13 AM CDT [facility] Comment: Mitochondrial M2 Antibody Numeric Result Interpretation: ?<20.1 Units: ??Negative ?20.1 - 24.9 Units: ??Equivocal ?>24.9 Units: ??Positive ? Blood BLOOD SPECIMEN / Unknown Venipuncture / Unknown 10/28/2017 5:31 AM CDT 10/28/2017 5:50 AM CDT Andrew Ruiz MD LAB - CHEMISTRY ORDERABLES [facility] [address] [phone] * (ABNORMAL) CERULOPLASMIN (10/28/2017 5:31 AM CDT) Pathologist [facility] Ceruloplasmin 12(L) 20 - 60 mg/dL 10/28/2017 6:29 AM CDT [facility] Blood BLOOD SPECIMEN / Unknown Venipuncture / Unknown 10/28/2017 5:31 AM CDT 10/28/2017 5:50 AM CDT Andrew Ruiz MD LAB - CHEMISTRY ORDERABLES Performing Organization Address [facility]/State/ZIP Co de Phone Number [address] [phone] * SMOOTH MUSCLE ANTIBODY (10/28/2017 5:31 AM CDT) [facility] F-Actin Antibody IgG 4.4 0.0 - 19.9 Units 10/29/2017 11:13 AM CDT [facility] Comment: F-Actin Antibody Numeric Result Interpretation: ?<20.0 Units: ??Negative ?20.0 - 30.0 Units: ??Weak Positive ?>30.0 Units: ??Moderate to Strong Positive ? Blood BLOOD SPECIMEN / Unknown Venipuncture / Unknown 10/28/2017 5:31 AM CDT 10/28/2017 5:50 AM CDT Andrew Ruiz MD LAB - SEROLOGY O RDERABLES Performing Organization Address [facility]/State/ZIP Co de Phone Number [address] [phone] * (ABNORMAL) GLUCOSE - POINT OF CARE (10/28/2017 1:17 AM CDT) Pathologist [facility] Glucose WB/POC 206(H) 70 - 115 mg/dL 10/28/2017 1:31 AM CDT [facility] Specimen Type Arterial/C apillary 10/28/2017 1:31 AM CDT [facility] Blood BLOOD SPECIMEN / Unknown 10/28/2017 1:17 AM CDT 10/28/2017 1:31 AM CDT [facility] - 10/28/2017 1:31 AM CDT Senior Accounting Analyst: TOMMY ??ABDIRASHID Elver Askew MD LAB - POINT OF CARE ORDERABLES Performing Organization Address [facility]/ZIP Co de Phone Number [address] [phone] * (ABNORMAL) GLUCOSE - POINT OF CARE (10/27/2017 9:14 PM CDT) Glucose WB/POC 162(H) 70 - 115 mg/dL 10/28/2017 4:38 AM CDT [facility] Specimen Type Arterial/C apillary 10/28/2017 4:38 AM CDT [facility] Blood BLOOD SPECIMEN / Unknown 10/27/2017 9:14 PM CDT 10/28/2017 4:38 AM CDT [facility] - 10/28/2017 4:38 AM CDT Senior Accounting Analyst: RICKY ?JEANNETTE Elver Askew MD LAB - POINT OF CARE ORDERABLES Performing Organization Address [facility] Co de Phone Number [address] [phone] * (ABNORMAL) GLUCOSE - POINT OF CARE (10/27/2017 5:29 PM CDT) Glucose WB/POC 195(H) 70 - 115 mg/dL 10/27/2017 5:52 PM CDT [facility] Specimen Type Arterial/C apillary 10/27/2017 5:52 PM CDT [facility] Blood BLOOD SPECIMEN / Unknown 10/27/2017 5:29 PM CDT 10/27/2017 5:52 PM CDT [facility] - 10/27/2017 5:52 PM CDT Senior Accounting Analyst: BRITT ??BRANDON Elver Askew MD LAB - POINT OF CARE ORDERABLES Performing Organization Address [facility]/ZIP Co de Phone Number [address] [phone] * ECHO FU OR LIMITED (10/27/2017 2:21 PM CDT) Anatomical Region Laterality Modality Color Flow Doppl er 10/27/2017 2:21 PM CDT Narrative Procedure Note Roland Aguilar MD - 10/27/2017 Manav Gabriel DO ECHOCARDIOGRAPHY RAD IANT * (ABNORMAL) GLUCOSE - POINT OF CARE (10/27/2017 11:32 AM CDT) Glucose WB/POC 155(H) 70 - 115 mg/dL 10/27/2017 11:54 AM CDT [facility] Specimen Type Arterial/C apillary 10/27/2017 11:54 AM CDT [facility] Blood BLOOD SPECIMEN / Unknown 10/27/2017 11:32 AM CDT 10/27/2017 11:54 AM CDT Narrative [facility] - 10/27/2017 11:54 AM CDT Senior Accounting Analyst: DARLINE ??DOROTHY Elver Askew MD LAB - POINT OF CARE ORDERABLES Performing Organization Address [facility]/ZIP Co de Phone Number [address] [phone] * XR CHEST 1VW PORTABLE (10/27/2017 11:28 AM CDT) Anatomical Region Laterality Modality Chest Radiographic [...] is normal. Dictated by Thom Reina MD (vice president global digital marketing). Dr. ASTRID Morel have personally reviewed and interpreted this examination/study. This report was electronically signed by ASTRID FRANCO ??on 10/28/2017 8:38 AM . Narrative 10/28/2017 8:38 AM CDT EXAMINATION: XR CHEST 1VW PORTABLE HISTORY: sob COMPARISON: Comparison is made with a study from 10/22/2017. Procedure Note Astrid Franco, - 10/28/2017 EXAMINATION: XR CHEST 1VW PORTABLE [...] is normal. Dictated by Thom Reina MD (vice president global digital marketing). Dr. ASTRID Morel have personally reviewed and interpreted this examination/study. This report was electronically signed by ASTRID FRANCO on 10/28/2017 8:38 AM . Manav Gabriel DO DIAGNOSTIC IMAGING O RDERABLES * (ABNORMAL) GLUCOSE - POINT OF CARE (10/27/2017 6:07 AM CDT) Glucose WB/POC 118(H) 70 - 115 mg/dL 10/27/2017 6:23 AM CDT [facility] Specimen Type Arterial/C apillary 10/27/2017 6:23 AM CDT [facility] Blood BLOOD SPECIMEN / Unknown 10/27/2017 6:07 AM CDT 10/27/2017 6:23 AM CDT Narrative [facility] - 10/27/2017 6:23 AM CDT Senior Accounting Analyst: JASON RAMIREZ Elver Askew MD LAB - POINT OF CARE ORDERABLES Performing Organization Address [facility]/ZIP Co de Phone Number [address] [phone] * (ABNORMAL) TROPONIN I (10/27/2017 4:11 AM CDT) Troponin I 0.070(H) <0.032 ng/mL 10/27/2017 10:18 AM CDT [facility] Blood BLOOD SPECIMEN / Unknown Venipuncture / Unknown 10/27/2017 4:11 AM CDT 10/27/2017 9:57 AM CDT Reuben Tellez MD LAB - CHEMISTRY SHIRLEY GARCIA Performing Organization Address [facility] Co de Phone Number [address] [phone] * (ABNORMAL) PHOSPHORUS BLOOD (10/27/2017 4:11 AM CDT) Phosphorus 1.2(L) 2.3 - 4.7 mg/dL 10/27/2017 5:29 AM CDT [facility] Blood BLOOD SPECIMEN / Unknown Venipuncture / Unknown 10/27/2017 4:11 AM CDT 10/27/2017 4:30 AM CDT Ronaldo Flynn DO LAB - CHEMISTRY ORDLynn GARCIA Performing Organization Address [facility] Co de Phone Number [address] [phone] * (ABNORMAL) DIFFERENTIAL MANUAL (10/27/2017 4:11 AM CDT) WBC (corrected for NRBC) 18.4 10? 3 /uL 10/27/2017 6:32 AM CDT [facility] Total Cell Count 100 10/28/19 18 6:32 AM [facility] Neutrophils Absolute Manual 14.72(H) 1.60 - 7.00 10? 3 /uL 10/27/2017 6:32 AM [facility] Comment:(BANDS+SEGS) x WBC = NEUT # (ANC) Lymphocyte Absolute Manual 2.21 0.80 - 2.90 10? 3 /uL 10/27/2017 6:32 AM [facility] Monocytes Absolute Manual 1.29(H) 0.14 - 0.66 10? 3 /uL 10/27/2017 6:32 AM [facility] Band % Manual 3 0 - 10 % 10/27/2017 6:32 AM [facility] Neutrophil % Manual 77(H) 30 - 60 % 10/27/2017 6:32 AM [facility] Lymphocyte % Manual 12(L) 20 - 45 % 10/27/2017 6:32 AM [facility] Monocytes % Manual 7 2 - 10 % 10/27/2017 6:32 AM [facility] Metamyelocyte % Manual 1(H) 0 % 10/27/2017 6:32 AM [facility] Platelet Estimate Decreased (A) Adequate 10/27/2017 6:32 AM [facility] Anisocytosis 1+(A) None 10/27/2017 6:32 AM [facility] Ovalocytes Few(A) None 10/27/2017 6:32 AM [facility] Tear Drop Cells Rare(A) None 8 6:32 AM [facility] Blood BLOOD SPECIMEN / Unknown Venipuncture / Unknown 10/27/2017 4:11 AM CDT 10/27/2017 4:30 AM CDT Ronaldo Flynn DO LAB - HEMATOLOGY ORD ERABLES [facility] [address] [phone] * (ABNORMAL) CBC W AUTO DIFFERENTIAL (10/27/2017 4:11 AM CDT) WBC 18.4(H) 3.5 - 10.5 10? 3 /uL 10/27/2017 5:46 AM [facility] RBC 2.95(L) 3.90 - 5.00 10? 6 /uL 10/27/2017 5:46 AM [facility] Hemoglobin 9.3(L) 12.0 - 15.5 g/dL 10/27/2017 5:46 AM [facility] Hematocrit 28.2(L) 35.0 - 45.0 % 10/27/2017 5:46 AM [facility] MCV 95.6 81.0 - 97.0 fL 10/27/2017 5:46 AM [facility] MCH 31.5 28.0 - 34.0 pg 10/27/2017 5:46 AM [facility] MCHC 33.0 32.0 - 36.0 g/dL 10/27/2017 5:46 AM [facility] Platelet Count 39(L) 150 - 400 10? 3 /uL 10/27/2017 5:46 AM [facility] RDW-SD 49.6 36.0 - 50.0 fL 10/27/2017 5:46 AM [facility] RDW-CV 20.0(H) 11.2 - 14.8 % 10/27/2017 5:46 AM [facility] MPV 12.6 9.3 - 12.8 fL 10/27/2017 5:46 AM [facility] nRBC Absolute 0.00 0 10? 3 /uL 10/27/2017 5:46 AM [facility] nRBC Auto 0.0 0 /100 WBC 10/27/2017 5:46 AM [facility] Reflex Status Manual Differential to follow. 10/27/2017 5:46 AM [facility] Blood BLOOD SPECIMEN / Unknown Venipuncture / Unknown 10/27/2017 4:11 AM CDT 10/27/2017 4:30 AM CDT Ronaldo Flynn DO LAB - HEMATOLOGY ORD ERABLES [facility] [address] [place] [address] * (ABNORMAL) PTT [facility] (10/27/2017 4:11 AM CDT) Pathologist [facility] [place] APTT 39.6(H) 23.0 - 38.4 Seconds 10/27/2017 4:48 AM T [facility] Comment: Suggested therapeutic range for full dose I.V. heparin therapy for venous thromboembolism is 66.0-91.0 seconds. Blood BLOOD SPECIMEN / Unknown Venipuncture / Unknown 10/27/2017 4:11 AM CDT 10/27/2017 4:30 AM CDT Reuben Tellez MD LAB - COAGULATION OR DERABLES Performing Organization Address [facility] Co de Phone Number [address] [phone] * (ABNORMAL) PT-INR [facility] (10/27/2017 4:11 AM CDT) [facility] PT 15.0(H) 12.1 - 14.8 Seconds 10/27/2017 4:48 AM [facility] INR 1.2 See Comment 10/27/2017 4:48 AM [facility] Comment: Suggested therapeutic range for low-intensity coumadin therapy for venous thromboembolism prophylaxis is an INR of 2.0-3.0. ??For high risk patients (Mitral Valve Prosthesis, Atrial Fibrillation, history of TIA/stroke), suggested prophylactic therapeutic range is an INR of 2.5-3.5. Blood BLOOD SPECIMEN / Unknown Venipuncture / Unknown 10/27/2017 4:11 AM CDT 10/27/2017 4:30 AM CDT Reuben Tellez MD LAB - COAGULATION OR DERABLES [address] [phone] * (ABNORMAL) COMPREHENSIVE METABOLIC PANEL (10/27/2017 4:11 AM CDT) [facility] BUN 20 7 - 26 mg/dL 10/27/2017 5:08 AM T [facility] Creatinine 0.8 0.6 - 1.2 mg/dL 10/27/2017 5:08 AM [facility] Sodium 139 136 - 145 mmol/L 10/27/2017 5:08 AM [facility] Potassium 3.6 3.5 - 4.5 mmol/L 10/27/2017 5:08 AM [facility] Chloride 103 98 - 107 mmol/L 10/27/2017 5:08 AM [facility] CO2 25 22 - 29 mmol/L 10/27/2017 5:08 AM [facility] Glucose 131(H) 70 - 115 mg/dL 10/27/2017 5:08 AM [facility] Calcium 9.6 8.4 - 10.2 mg/dL 10/27/2017 5:08 AM [facility] Protein Total 6.0 6.0 - 8.3 g/dL 10/27/2017 5:08 AM [facility] Albumin 3.6 3.4 - 5.0 g/dL 10/27/2017 5:08 AM [facility] Bilirubin Total 1.8(H) 0.2 - 1.2 mg/dL 10/27/2017 5:08 AM [facility] Alkaline Phosphatase 796(H) 40 - 150 Units/L 10/27/2017 5:08 AM [facility] ALT 27 0 - 55 Units/L 10/27/2017 5:08 AM [facility] AST 50(H) 5 - 34 Units/L 10/27/2017 5:08 AM [facility] Anion Gap 15 8 - 18 10/27/2017 5:08 AM [facility] BUN/Creatinine Ratio 25(H) 7 - 23 10/27/2017 5:08 AM [facility] Osmolality Calculated 292 270 - 300 mOsm/kg 10/27/2017 5:08 AM [facility] Albumin/Globulin Ratio 1.5 1.1 - 2.3 10/27/2017 5:08 AM [facility] eGFR >60 >60 mL/min/1.7 3 m2 10/27/2017 5:08 AM [facility] Blood BLOOD SPECIMEN / Unknown Venipuncture / Unknown 10/27/2017 4:11 AM CDT 10/27/2017 4:30 AM CDT Elver Askew MD LAB - CHEMISTRY ORDERABLES [facility] [address] [place] [address], [facility] [phone] * (ABNORMAL) B-TYPE NATRIURETIC PEPTIDE (10/27/2017 4:11 AM CDT) BNP 326(H) See Comment pg/mL 10/27/2017 5:05 AM CDT [facility] Comment: A decision threshold of 100 [...] - CHEMISTRY SHIRLEY GARCIA Performing Organization Address [facility]/ZIP Co de Phone Number [address] [phone] * MAGNESIUM BLOOD (10/27/2017 4:11 AM CDT) Magnesium 2.5 1.6 - 2.6 mg/dL 10/27/2017 5:02 AM CDT [facility] Blood BLOOD SPECIMEN / Unknown Venipuncture / Unknown 10/27/2017 4:11 AM CDT 10/27/2017 4:30 AM CDT Elver Askew MD LAB - CHEMISTRY ORDERABLES Performing Organization Address [facility] Co de Phone Number [address] [phone] * (ABNORMAL) GLUCOSE - POINT OF CARE (2017 11:38 PM CDT) Glucose WB/POC 211(H) 70 - 115 mg/dL 2017 11:56 PM CDT [facility] Specimen Type Arterial/C apillary 2017 11:56 PM CDT [facility] Blood BLOOD SPECIMEN / Unknown 2017 11:38 PM CDT 2017 11:55 PM CDT Narrative [facility] - 2017 11:56 PM CDT Senior Accounting Analyst: JASON ??SHERRILL Elver Askew MD LAB - POINT OF CARE ORDERABLES Performing Organization Address [facility] Co de Phone Number [address] [address], [place] [phone] * (ABNORMAL) RENAL FUNCTION PANEL (2017 11:03 PM CDT) BUN 20 7 - 26 mg/dL 2017 11:34 PM [facility] Creatinine 0.7 0.6 - 1.2 mg/dL 2017 11:34 PM [facility] Sodium 139 136 - 145 mmol/L 2017 11:34 PM [facility] Potassium 3.5 3.5 - 4.5 mmol/L 2017 11:34 PM [facility] Chloride 104 98 - 107 mmol/L 2017 11:34 PM [facility] CO2 24 22 - 29 mmol/L 2017 11:34 PM [facility] Glucose 208(H) 70 - 115 mg/dL 2017 11:34 PM [facility] Albumin 3.4 3.4 - 5.0 g/dL 2017 11:34 PM [facility] Calcium 9.5 8.4 - 10.2 mg/dL 2017 11:34 PM [facility] Phosphorus 1.1(L) 2.3 - 4.7 mg/dL 2017 11:34 PM [facility] Anion Gap 15 8 - 18 2017 11:34 PM [facility] BUN/Creatinine Ratio 29(H) 7 - 23 2017 11:34 PM [facility] Osmolality Calculated 297 270 - 300 mOsm/kg 2017 11:34 PM [facility] eGFR >60 >60 mL/min/1.7 3 m2 2017 11:34 PM [facility] Blood BLOOD SPECIMEN / Unknown Venipuncture / Unknown 2017 11:03 PM CDT 2017 11:[address] [facility] Ronaldo Flynn DO LAB - CHEMISTRY SHIRLEY Damon Organization Address City/State/ZIP Co de Phone Number [place] [id number], [place] [phone] * (ABNORMAL) GLUCOSE - POINT OF CARE (2017 8:10 PM CDT) Glucose WB/POC 200(H) 70 - 115 mg/dL 2017 8:27 PM CDT [facility] Specimen Type Venous 2017 8:27 PM CDT [facility] Blood BLOOD SPECIMEN / Unknown 2017 8:10 PM CDT 2017 8:27 PM CDT Narrative [facility] - 2017 8:27 PM CDT Senior Accounting Analyst: DENISSE ??NADEEN Elver Askew MD LAB - POINT OF CARE ORDERABLES [address] [phone] * (ABNORMAL) GLUCOSE - POINT OF CARE (2017 4:16 PM CDT) Glucose WB/POC 202(H) 70 - 115 mg/dL 2017 4:33 PM CDT [facility] Specimen Type Arterial/C apillary 2017 4:33 PM CDT [facility] Blood BLOOD SPECIMEN / Unknown 2017 4:16 PM CDT 2017 4:33 PM CDT Narrative [facility] - 2017 4:33 PM CDT Senior Accounting Analyst: ASIA ?TRINI Elver Askew MD LAB - POINT [place] [address], [facility] [phone] * (ABNORMAL) GLUCOSE - POINT OF CARE (2017 11:55 AM CDT) Glucose WB/POC 199(H) 70 - 115 mg/dL 2017 4:24 PM CDT [facility] Specimen Type Arterial/C apillary 2017 4:24 PM [facility] Blood BLOOD SPECIMEN / Unknown 2017 11:55 AM CDT 2017 4:24 PM CDT [facility] - 2017 4:24 PM CDT Senior Accounting Analyst: ASIA ?TRINI Elver Askew MD LAB - POINT OF CARE ORDERABLES [facility] [address] [place] [address] * (ABNORMAL) RENAL FUNCTION PANEL (2017 11:52 AM CDT) BUN 18 7 - 26 mg/dL 2017 12:41 PM [facility] Creatinine 0.7 0.6 - 1.2 mg/dL 2017 12:41 PM [facility] Sodium 136 136 - 145 mmol/L 2017 12:41 PM [facility] Potassium 3.8 3.5 - 4.5 mmol/L 2017 12:41 PM [facility] Chloride 102 98 - 107 mmol/L 2017 12:41 PM [facility] CO2 26 22 - 29 mmol/L 2017 12:41 PM [facility] Glucose 210(H) 70 - 115 mg/dL 2017 12:41 PM [facility] Albumin 3.4 3.4 - 5.0 g/dL 2017 12:41 PM [facility] Calcium 9.1 8.4 - 10.2 mg/dL 2017 12:41 PM [facility] Phosphorus 2.1(L) 2.3 - 4.7 mg/dL 2017 12:41 PM [facility] Anion Gap 12 8 - 18 2017 12:41 PM [facility] BUN/Creatinine Ratio 26(H) 7 - 23 2017 12:41 PM [facility] Osmolality Calculated 290 270 - 300 mOsm/kg 2017 12:41 PM CDT [facility] eGFR >60 >60 mL/min/1.7 3 m2 2017 12:41 PM CDT [facility] Blood BLOOD SPECIMEN / Unknown Venipuncture / Unknown 2017 11:52 AM CDT 2017 12:04 PM CDT Ronaldo Flynn DO LAB - CHEMISTRY SHIRLEY GARCIA Performing Organization Address City/[facility]/ZIP Co de Phone Number [address] [phone] * (ABNORMAL) GLUCOSE - POINT OF CARE (2017 7:55 AM CDT) Glucose WB/POC 116(H) 70 - 115 mg/dL 2017 8:22 AM CDT [facility] Specimen Type Arterial/C apillary 2017 8:22 AM CDT [facility] Blood BLOOD SPECIMEN / Unknown 2017 7:55 AM CDT 2017 8:22 AM CDT Narrative [facility] - 2017 8:22 AM CDT Senior Accounting Analyst: ASIA ALBA Elver Askew MD LAB - POINT OF CARE ORDERABLES Performing Organization Address [facility]/ZIP Co de Phone Number [address] [phone] * (ABNORMAL) DIFFERENTIAL MANUAL (2017 4:24 AM CDT) WBC (corrected for NRBC) 17.4 10? 3 /uL 2017 4:59 AM CDT [facility] Total Cell Count 100 10/27/19 18 4:59 AM T [facility] Neutrophils Absolute Manual 14.62(H) 1.60 - 7.00 10? 3 /uL 2017 4:59 AM T [facility] Comment:(BANDS+SEGS) x WBC = NEUT # (ANC) Lymphocyte Absolute Manual 1.22 0.80 - 2.90 10? 3 /uL 2017 4:59 AM [facility] Monocytes Absolute Manual 1.57(H) 0.14 - 0.66 10? 3 /uL 2017 4:59 AM [facility] Band % Manual 1 0 - 10 % 2017 4:59 AM [facility] Neutrophil % Manual 83(H) 30 - 60 % 2017 4:59 AM [facility] Lymphocyte % Manual 7(L) 20 - 45 % 2017 4:59 AM [facility] Monocytes % Manual 9 2 - 10 % 2017 4:59 AM [facility] Platelet Estimate Decreased (A) Adequate 2017 4:59 AM [facility] Anisocytosis 1+(A) None 2017 4:59 AM [facility] Microcytes Few(A) None 2017 4:59 AM [facility] Macrocytosis 1+(A) None 2017 4:59 AM [facility] Target Cells Few(A) None 2017 4:59 AM [facility] Schistocytes Few(A) None 2017 4:59 AM [facility] Blood BLOOD SPECIMEN / Unknown Venipuncture / Unknown 2017 4:24 AM CDT 2017 4:27 AM CDT Ronaldo Flynn DO LAB - HEMATOLOGY ORD ERABLES Performing Organization Address City/State/[facility] Co de Phone Number [address] [phone] * (ABNORMAL) RENAL FUNCTION PANEL (2017 4:24 AM CDT) BUN 18 7 - 26 mg/dL 2017 4:53 AM [facility] Creatinine 0.7 0.6 - 1.2 mg/dL 2017 4:53 AM [facility] Sodium 139 136 - 145 mmol/L 2017 4:53 AM [facility] Potassium 4.0 3.5 - 4.5 mmol/L 2017 4:53 AM [facility] Chloride 103 98 - 107 mmol/L 2017 4:53 AM [facility] CO2 24 22 - 29 mmol/L 2017 4:53 AM [facility] Glucose 131(H) 70 - 115 mg/dL 2017 4:53 AM [facility] Albumin 3.5 3.4 - 5.0 g/dL 2017 4:53 AM [facility] Calcium 9.4 8.4 - 10.2 mg/dL 2017 4:53 AM [facility] Phosphorus 2.3 2.3 - 4.7 mg/dL 2017 4:53 AM [facility] Anion Gap 16 8 - 18 2017 4:53 AM [facility] BUN/Creatinine Ratio 26(H) 7 - 23 2017 4:53 AM [facility] Osmolality Calculated 292 270 - 300 mOsm/kg 2017 4:53 AM [facility] eGFR >60 >60 mL/min/1.7 3 m2 2017 4:53 AM [facility] Blood BLOOD SPECIMEN / Unknown Venipuncture / Unknown 2017 4:24 AM CDT 2017 4:27 AM CDT Ronaldo Flynn DO LAB - CHEMISTRY SHIRLEY GARCIA [facility] Organization Address City/State/[facility] Co de Phone Number [address] [phone] * (ABNORMAL) CBC W AUTO DIFFERENTIAL (2017 4:24 AM CDT) WBC 17.4(H) 3.5 - 10.5 10? 3 /uL 2017 4:38 AM [facility] RBC 2.82(L) 3.90 - 5.00 10? 6 /uL 2017 4:38 AM [facility] Hemoglobin 8.9(L) 12.0 - 15.5 g/dL 2017 4:38 AM [facility] Hematocrit 26.8(L) 35.0 - 45.0 % 2017 4:38 AM [facility] MCV 95.0 81.0 - 97.0 fL 2017 4:38 AM [facility] MCH 31.6 28.0 - 34.0 pg 2017 4:38 AM [facility] MCHC 33.2 32.0 - 36.0 g/dL 2017 4:38 AM [facility] Platelet Count 61(L) 150 - 400 10? 3 /uL 2017 4:38 AM [facility] RDW-SD 49.8 36.0 - 50.0 fL 2017 4:38 AM [facility] RDW-CV 19.0(H) 11.2 - 14.8 % 2017 4:38 AM [facility] MPV 11.0 9.3 - 12.8 fL 2017 4:38 AM [facility] Reflex Status Manual Differential to follow. 2017 4:38 AM [facility] Blood BLOOD SPECIMEN / Unknown Venipuncture / Unknown 2017 4:24 AM CDT 2017 4:27 AM CDT Ronaldo Flynn DO LAB - HEMATOLOGY ORD ERABLES Performing Organization Address City/State/[facility] Co de Phone Number [facility] [address] [phone] * (ABNORMAL) PTT [facility] (2017 4:24 AM CDT) APTT 39.6(H) 23.0 - 38.4 Seconds 2017 4:40 AM [facility] Comment: Suggested therapeutic range for full dose I.V. heparin therapy for venous thromboembolism is 66.0-91.0 seconds. Blood BLOOD SPECIMEN / Unknown Venipuncture / Unknown 2017 4:24 AM CDT 2017 4:27 AM CDT Reuben Tellez MD LAB - COAGULATION OR DERABLES Performing Organization Address [facility] Co de Phone Number [address] [phone] * (ABNORMAL) PT-INR [facility] (2017 4:24 AM CDT) PT 15.5(H) 12.1 - 14.8 Seconds 2017 4:39 AM CDT [facility] INR 1.2 See Comment 2017 4:39 AM [facility] Comment: Suggested therapeutic range for low-intensity coumadin therapy for venous thromboembolism prophylaxis is an INR of 2.0-3.0. ??For high risk patients (Mitral Valve Prosthesis, Atrial Fibrillation, history of TIA/stroke), suggested prophylactic therapeutic range is an INR of 2.5-3.5. Blood BLOOD SPECIMEN / Unknown Venipuncture / Unknown 2017 4:24 AM CDT 2017 4:27 AM CDT Reuben Tellez MD LAB - COAGULATION OR DERABLES Performing Organization Address [facility] Co de Phone Number [address] [phone] * (ABNORMAL) COMPREHENSIVE METABOLIC PANEL (2017 4:24 AM CDT) BUN 18 7 - 26 mg/dL 2017 4:53 AM [facility] Creatinine 0.7 0.6 - 1.2 mg/dL 2017 4:53 AM [facility] Sodium 139 136 - 145 mmol/L 2017 4:53 AM [facility] Potassium 4.0 3.5 - 4.5 mmol/L 2017 4:53 AM [facility] Chloride 103 98 - 107 mmol/L 2017 4:53 AM [facility] CO2 24 22 - 29 mmol/L 2017 4:53 AM [facility] Glucose 131(H) 70 - 115 mg/dL 2017 4:53 AM [facility] Calcium 9.4 8.4 - 10.2 mg/dL 2017 4:53 AM [facility] Protein Total 5.8(L) 6.0 - 8.3 g/dL 2017 4:53 AM [facility] Albumin 3.5 3.4 - 5.0 g/dL 2017 4:53 AM [facility] Bilirubin Total 1.7(H) 0.2 - 1.2 mg/dL 2017 4:53 AM [facility] Alkaline Phosphatase 779(H) 40 - 150 Units/L 2017 4:53 AM [facility] ALT 23 0 - 55 Units/L 2017 4:53 AM [facility] AST 44(H) 5 - 34 Units/L 2017 4:53 AM [facility] Anion Gap 16 8 - 18 2017 4:53 AM [facility] BUN/Creatinine Ratio 26(H) 7 - 23 2017 4:53 AM [facility] Osmolality Calculated 292 270 - 300 mOsm/kg 2017 4:53 AM [facility] Albumin/Globulin Ratio 1.5 1.1 - 2.3 2017 4:53 AM [facility] eGFR >60 >60 mL/min/1.7 3 m2 2017 4:53 AM [facility] Blood BLOOD SPECIMEN / Unknown Venipuncture / Unknown 2017 4:24 AM CDT 2017 4:27 AM T Elver Askew MD LAB - CHEMISTRY ORDERABLES [facility] [address] [phone] * MAGNESIUM BLOOD (2017 4:24 AM CDT) Magnesium 2.3 1.6 - 2.6 mg/dL 2017 4:53 AM CDT [facility] Blood BLOOD SPECIMEN / Unknown Venipuncture / Unknown 2017 4:24 AM CDT 2017 4:27 AM CDT Elver Askew MD LAB - CHEMISTRY ORDERABLES [address] [phone] * (ABNORMAL) GLUCOSE - POINT OF CARE (2017 4:21 AM CDT) Glucose WB/POC 121(H) 70 - 115 mg/dL 2017 4:38 AM CDT [facility] Specimen Type Venous 2017 4:38 AM CDT [facility] Blood BLOOD SPECIMEN / Unknown 2017 4:21 AM CDT 2017 4:38 AM CDT [facility] - 2017 4:38 AM CDT Senior Accounting Analyst: LEDER ??NADEEN Elver Askew MD LAB - POINT OF CARE ORDERABLES Performing Organization Address [facility]/ZIP Co de Phone Number [address] [phone] * (ABNORMAL) GLUCOSE - POINT OF CARE (2017 12:07 AM CDT) Glucose WB/POC 132(H) 70 - 115 mg/dL 2017 12:24 AM CDT [facility] Specimen Type Venous 2017 12:24 AM CDT [facility] Blood BLOOD SPECIMEN / Unknown 2017 12:07 AM CDT 2017 12:24 AM CDT [facility] - 2017 12:24 AM CDT Senior Accounting Analyst: LEDER ??NADEEN Elver Askew MD LAB - POINT OF CARE ORDERABLES [facility] [address] [phone] * (ABNORMAL) RENAL FUNCTION PANEL (10/25/2017 9:49 PM CDT) BUN 19 7 - 26 mg/dL 10/25/2017 10:10 PM [facility] Creatinine 0.7 0.6 - 1.2 mg/dL 10/25/2017 10:10 PM [facility] Sodium 139 136 - 145 mmol/L 10/25/2017 10:10 PM [facility] Potassium 3.8 3.5 - 4.5 mmol/L 10/25/2017 10:10 PM [facility] Chloride 103 98 - 107 mmol/L 10/25/2017 10:10 PM [facility] CO2 25 22 - 29 mmol/L 10/25/2017 10:10 PM [facility] Glucose 133(H) 70 - 115 mg/dL 10/25/2017 10:10 PM [facility] Albumin 3.4 3.4 - 5.0 g/dL 10/25/2017 10:10 PM [facility] Calcium 9.5 8.4 - 10.2 mg/dL 10/25/2017 10:10 PM [facility] Phosphorus 2.2(L) 2.3 - 4.7 mg/dL 10/25/2017 10:10 PM [facility] Anion Gap 15 8 - 18 10/25/2017 10:10 PM [facility] BUN/Creatinine Ratio 27(H) 7 - 23 10/25/2017 10:10 PM [facility] Osmolality Calculated 292 270 - 300 mOsm/kg 10/25/2017 10:10 PM [facility] eGFR >60 >60 mL/min/1.7 3 m2 10/25/2017 10:10 PM [facility] Blood BLOOD SPECIMEN / Unknown Venipuncture / Unknown 10/25/2017 9:49 PM CDT 10/25/2017 9:52 PM T Ronaldo Flynn DO LAB - CHEMISTRY SHIRLEY GARCIA [address] [phone] * XR ABDOMEN KUB (10/25/2017 9:22 PM [...] This report was electronically signed by EULALIA MCKEE M.D. ??on 2017 3:06 PM . Narrative 2017 3:06 PM CDT EXAMINATION: XR ABDOMEN KUB HISTORY: R10.9: Abdominal pain, unspecified abdominal location COMPARISON: Comparison is made with a study from 10/15/2017 Procedure Note Eulalia Mckee MD - 2017 EXAMINATION: XR ABDOMEN KUB [...] Thom Reina on 2017 2:33 PM . I, Dr. EULALIA MCKEE M.D. have personally reviewed and interpreted this examination/study. This report was electronically signed by EULALIA MCKEE M.D. on 2017 3:06 PM . Tomas Pena MD DIAGNOSTIC IMAG ING ORDERABLES * (ABNORMAL) GLUCOSE - POINT OF CARE (10/25/2017 8:14 PM CDT) Glucose WB/POC 131(H) 70 - 115 mg/dL 10/25/2017 8:30 PM CDT [facility] Specimen Type Venous 10/25/2017 8:30 PM CDT [facility] Blood BLOOD SPECIMEN / Unknown 10/25/2017 8:14 PM CDT 10/25/2017 8:30 PM CDT Narrative [facility] - 10/25/2017 8:30 PM CDT Senior Accounting Analyst: DENISSE ??NADEEN Elver Askew MD LAB - POINT OF CARE ORDERABLES [address] [phone] * (ABNORMAL) GLUCOSE - POINT OF CARE (10/25/2017 5:32 PM CDT) Glucose WB/POC 140(H) 70 - 115 mg/dL 10/25/2017 5:49 PM CDT [facility] Specimen Type Venous 10/25/2017 5:49 PM CDT [facility] Blood BLOOD SPECIMEN / Unknown 10/25/2017 5:32 PM CDT 10/25/2017 5:49 PM CDT Narrative [facility] - 10/25/2017 5:49 PM CDT Senior Accounting Analyst: VICKY ?DORINA Elver Askew MD LAB - POINT OF CARE ORDERABLES [address] [phone] * COMPLEMENT C4 (10/25/2017 12:25 PM CDT) Complement C4 15 15 - 57 mg/dL 10/25/2017 1:26 PM CDT [facility] Blood BLOOD SPECIMEN / Unknown Venipuncture / Unknown 10/25/2017 12:25 PM CDT 10/25/2017 12:43 PM CDT Ronaldo Flynn DO LAB - SEROLOGY ORDER OLGA [facility] [address] [place] [address] * COMPLEMENT C3 (10/25/2017 12:25 PM CDT) Complement C3 82 82 - 193 mg/dL 10/25/2017 1:26 PM [facility] Blood BLOOD SPECIMEN / Unknown Venipuncture / Unknown 10/25/2017 12:25 PM CDT 10/25/2017 12:43 PM CDT Ronaldo Flynn DO LAB - CHEMISTRY ORDE JOSE [address] [phone] * (ABNORMAL) RENAL FUNCTION PANEL (10/25/2017 12:25 PM CDT) Pathologist [facility] BUN 17 7 - 26 mg/dL 10/25/2017 1:11 PM [facility] Creatinine 0.7 0.6 - 1.2 mg/dL 10/25/2017 1:11 PM [facility] Sodium 140 136 - 145 mmol/L 10/25/2017 1:11 PM [facility] Potassium 4.1 3.5 - 4.5 mmol/L 10/25/2017 1:11 PM [facility] Chloride 104 98 - 107 mmol/L 10/25/2017 1:11 PM [facility] CO2 22 22 - 29 mmol/L 10/25/2017 1:11 PM [facility] Glucose 156(H) 70 - 115 mg/dL 10/25/2017 1:11 PM [facility] Albumin 3.4 3.4 - 5.0 g/dL 10/25/2017 1:11 PM [facility] Calcium 9.3 8.4 - 10.2 mg/dL 10/25/2017 1:11 PM [facility] Phosphorus 2.5 2.3 - 4.7 mg/dL 10/25/2017 1:11 PM [facility] Anion Gap 18 8 - 18 10/25/2017 1:11 PM [facility] BUN/Creatinine Ratio 24(H) 7 - 23 10/25/2017 1:11 PM [facility] Osmolality Calculated 295 270 - 300 mOsm/kg 10/25/2017 1:11 PM [facility] eGFR >60 >60 mL/min/1.7 3 m2 10/25/2017 1:11 PM [facility] Blood BLOOD SPECIMEN / Unknown Venipuncture / Unknown 10/25/2017 12:25 PM CDT 10/25/2017 12:43 PM CDT Ronaldo Flynn DO LAB - CHEMISTRY SHIRLEY GARCIA Performing Organization Address City/[facility]/ZIP Co de Phone Number [address] [phone] * (ABNORMAL) GLUCOSE - POINT OF CARE (10/25/2017 11:38 AM CDT) Glucose WB/POC 152(H) 70 - 115 mg/dL 10/25/2017 11:57 AM [facility] Specimen Type Arterial/C apillary 10/25/2017 11:57 AM [facility] Blood BLOOD SPECIMEN / Unknown 10/25/2017 11:38 AM CDT 10/25/2017 11:57 AM CDT Narrative [facility] - 10/25/2017 11:57 AM CDT Senior Accounting Analyst: ROSA ??AERON Evler Askew MD LAB - POINT OF CARE ORDERABLES [address] [phone] * (ABNORMAL) BILIRUBIN DIRECT (10/25/2017 8:38 AM CDT) Bilirubin Conjugated 0.9(H) 0.0 - 0.5 mg/dL 10/25/2017 8:52 AM T [facility] Bilirubin Unconjugated 0.6 Unconjugated Bilirubin is a calculated value: Reference ranges have not been established. mg/dL 10/25/2017 8:52 AM [facility] Blood BLOOD SPECIMEN / Unknown Venipuncture / Unknown 10/25/2017 8:38 AM CDT 10/25/2017 8:38 AM CDT Singh Odell MD LAB - CHEMISTRY SHIRLEY GARCIA Performing Organization Address [facility]/ZIP Co de Phone Number [address] [phone] * (ABNORMAL) LDH BLOOD (10/25/2017 8:38 AM CDT) Pathologist [facility] [place] LDH Total 308(H) 125 - 243 Units/L 10/25/2017 8:52 AM CDT [facility] Blood BLOOD SPECIMEN / Unknown Venipuncture / Unknown 10/25/2017 8:38 AM CDT 10/25/2017 8:38 AM CDT Singh Odell MD LAB - CHEMISTRY SHIRLEY GARCIA Performing Organization Address [facility]/ZIP Co de Phone Number [address] [phone] * (ABNORMAL) GLUCOSE - POINT OF CARE (10/25/2017 7:49 AM CDT) Pathologist [facility] [place] Glucose WB/POC 139(H) 70 - 115 mg/dL 10/25/2017 8:04 AM CDT [facility] Specimen Type Arterial/C apillary 10/25/2017 8:04 AM CDT [facility] Blood BLOOD SPECIMEN / Unknown 10/25/2017 7:49 AM CDT 10/25/2017 8:04 AM CDT Narrative [facility] - 10/25/2017 8:04 AM CDT Senior Accounting Analyst: ROSA ??AERON Elver Askew MD LAB - POINT OF CARE ORDERABLES Performing Organization Address [facility]/[place] [address], [facility] [phone] * (ABNORMAL) GLUCOSE - POINT OF CARE (10/25/2017 5:20 AM CDT) Pathologist [facility] [place] Glucose WB/POC 135(H) 70 - 115 mg/dL 10/25/2017 5:37 AM [facility] Specimen Type Arterial/C apillary 10/25/2017 5:37 AM [facility] Blood BLOOD SPECIMEN / Unknown 10/25/2017 5:20 AM CDT 10/25/2017 5:37 AM CDT Narrative [facility] - 10/25/2017 5:37 AM CDT Senior Accounting Analyst: TAD ??CHERELLE CABRERA Elver Askew MD LAB - POINT OF CARE ORDERABLES [address] [phone] * (ABNORMAL) DIFFERENTIAL MANUAL (10/25/2017 5:00 AM CDT) Pathologist [facility] [place] WBC (corrected for NRBC) 22.8 10? 3 /uL 10/25/2017 5:45 AM [facility] Total Cell Count 100 10/26/19 18 5:45 AM [facility] Neutrophils Absolute Manual 20.29(H) 1.60 - 7.00 10? 3 /uL 10/25/2017 5:45 AM [facility] Comment:(BANDS+SEGS) x WBC = NEUT # (ANC) Lymphocyte Absolute Manual 1.82 0.80 - 2.90 10? 3 /uL 10/25/2017 5:45 AM [facility] Monocytes Absolute Manual 0.68(H) 0.14 - 0.66 10? 3 /uL 10/25/2017 5:45 AM [facility] Neutrophil % Manual 89(H) 30 - 60 % 10/25/2017 5:45 AM [facility] Lymphocyte % Manual 8(L) 20 - 45 % 10/25/2017 5:45 AM [facility] Monocytes % Manual 3 2 - 10 % 10/25/2017 5:45 AM [facility] Platelet Estimate Decreased (A) Adequate 10/25/2017 5:45 AM [facility] Anisocytosis 1+(A) None 10/25/2017 5:45 AM [facility] Macrocytosis 1+(A) None 10/25/2017 5:45 AM [facility] Blood BLOOD SPECIMEN / Unknown Venipuncture / Unknown 10/25/2017 5:00 AM CDT 10/25/2017 5:13 AM CDT Ronaldo Flynn DO LAB - HEMATOLOGY ORD ERABLES [facility] [address] [phone] * (ABNORMAL) RENAL FUNCTION PANEL (10/25/2017 5:00 AM CDT) BUN 17 7 - 26 mg/dL 10/25/2017 5:41 AM [facility] Creatinine 0.7 0.6 - 1.2 mg/dL 10/25/2017 5:41 AM [facility] Sodium 140 136 - 145 mmol/L 10/25/2017 5:41 AM [facility] Potassium 4.1 3.5 - 4.5 mmol/L 10/25/2017 5:41 AM [facility] Chloride 104 98 - 107 mmol/L 10/25/2017 5:41 AM [facility] CO2 24 22 - 29 mmol/L 10/25/2017 5:41 AM [facility] Glucose 145(H) 70 - 115 mg/dL 10/25/2017 5:41 AM [facility] Albumin 3.4 3.4 - 5.0 g/dL 10/25/2017 5:41 AM [facility] Calcium 9.4 8.4 - 10.2 mg/dL 10/25/2017 5:41 AM [facility] Phosphorus 1.9(L) 2.3 - 4.7 mg/dL 10/25/2017 5:41 AM [facility] Anion Gap 16 8 - 18 10/25/2017 5:41 AM [facility] BUN/Creatinine Ratio 24(H) 7 - 23 10/25/2017 5:41 AM [facility] Osmolality Calculated 294 270 - 300 mOsm/kg 10/25/2017 5:41 AM [facility] eGFR >60 >60 mL/min/1.7 3 m2 10/25/2017 5:41 AM [facility] Blood BLOOD SPECIMEN / Unknown Venipuncture / Unknown 10/25/2017 5:00 AM CDT 10/25/2017 5:13 AM CDT Ronaldo Flynn DO LAB - CHEMISTRY SHIRLEY GARCIA [facility] Organization Address City/State/[facility] Co de Phone Number [facility] [address] [phone] * (ABNORMAL) CBC W AUTO DIFFERENTIAL (10/25/2017 5:00 AM CDT) WBC 22.8(H) 3.5 - 10.5 10? 3 /uL 10/25/2017 5:30 AM [facility] Comment:Confirmed by repeat analysis RBC 2.89(L) 3.90 - 5.00 10? 6 /uL 10/25/2017 5:30 AM [facility] Hemoglobin 9.1(L) 12.0 - 15.5 g/dL 10/25/2017 5:30 AM [facility] Hematocrit 27.4(L) 35.0 - 45.0 % 10/25/2017 5:30 AM [facility] MCV 94.8 81.0 - 97.0 fL 10/25/2017 5:30 AM [facility] MCH 31.5 28.0 - 34.0 pg 10/25/2017 5:30 AM [facility] MCHC 33.2 32.0 - 36.0 g/dL 10/25/2017 5:30 AM [facility] Platelet Count 65(L) 150 - 400 10? 3 /uL 10/25/2017 5:30 AM [facility] RDW-SD 50.7(H) 36.0 - 50.0 fL 10/25/2017 5:30 AM [facility] RDW-CV 18.2(H) 11.2 - 14.8 % 10/25/2017 5:30 AM [facility] MPV 11.5 9.3 - 12.8 fL 10/25/2017 5:30 AM CDT [facility] nRBC Absolute 0.00 0 10? 3 /uL 10/25/2017 5:30 AM [facility] nRBC Auto 0.0 0 /100 WBC 10/25/2017 5:30 AM T [facility] Reflex Status Manual Differential to follow. 10/25/2017 5:30 AM T [facility] Blood BLOOD SPECIMEN / Unknown Venipuncture / Unknown 10/25/2017 5:00 AM CDT 10/25/2017 5:13 AM CDT Ronaldo Flynn DO LAB - HEMATOLOGY ORD ERABLES [address] [phone] * PTT [facility] (10/25/2017 5:00 AM CDT) APTT 31.7 23.0 - 38.4 Seconds 10/25/2017 5:37 AM [facility] Comment: Suggested therapeutic range for full dose I.V. heparin therapy for venous thromboembolism is 66.0-91.0 seconds. Blood BLOOD SPECIMEN / Unknown Venipuncture / Unknown 10/25/2017 5:00 AM CDT 10/25/2017 5:13 AM CDT Reuben Tellez MD LAB - COAGULATION OR DERABLES [address] [phone] * PT-INR [facility] (10/25/2017 5:00 AM CDT) PT 12.5 12.1 - 14.8 Seconds 10/25/2017 5:36 AM [facility] INR 1.0 See Comment 10/25/2017 5:36 AM [facility] Comment: Suggested therapeutic range for low-intensity coumadin therapy for venous thromboembolism prophylaxis is an INR of 2.0-3.0. ??For high risk patients (Mitral Valve Prosthesis, Atrial Fibrillation, history of TIA/stroke), suggested prophylactic therapeutic range is an INR of 2.5-3.5. Blood BLOOD SPECIMEN / Unknown Venipuncture / Unknown 10/25/2017 5:00 AM CDT 10/25/2017 5:13 AM CDT Reuben Tellez MD LAB - COAGULATION OR DERABLES Performing Organization Address City/State/[facility] Co de Phone Number [facility] [address] [place] [address] * (ABNORMAL) COMPREHENSIVE METABOLIC PANEL (10/25/2017 5:00 AM CDT) BUN 17 7 - 26 mg/dL 10/25/2017 5:42 AM [facility] Creatinine 0.7 0.6 - 1.2 mg/dL 10/25/2017 5:42 AM [facility] Sodium 140 136 - 145 mmol/L 10/25/2017 5:42 AM [facility] Potassium 4.1 3.5 - 4.5 mmol/L 10/25/2017 5:42 AM [facility] Chloride 104 98 - 107 mmol/L 10/25/2017 5:42 AM [facility] CO2 24 22 - 29 mmol/L 10/25/2017 5:42 AM [facility] Glucose 145(H) 70 - 115 mg/dL 10/25/2017 5:42 AM [facility] Calcium 9.4 8.4 - 10.2 mg/dL 10/25/2017 5:42 AM [facility] Protein Total 6.0 6.0 - 8.3 g/dL 10/25/2017 5:42 AM [facility] Albumin 3.4 3.4 - 5.0 g/dL 10/25/2017 5:42 AM [facility] Bilirubin Total 1.5(H) 0.2 - 1.2 mg/dL 10/25/2017 5:42 AM [facility] Alkaline Phosphatase 652(H) 40 - 150 Units/L 10/25/2017 5:42 AM [facility] ALT 17 0 - 55 Units/L 10/25/2017 5:42 AM [facility] AST 30 5 - 34 Units/L 10/25/2017 5:42 AM [facility] Anion Gap 16 8 - 18 10/25/2017 5:42 AM [facility] BUN/Creatinine Ratio 24(H) 7 - 23 10/25/2017 5:42 AM [facility] Osmolality Calculated 294 270 - 300 mOsm/kg 10/25/2017 5:42 AM [facility] Albumin/Globulin Ratio 1.3 1.1 - 2.3 10/25/2017 5:42 AM [facility] eGFR >60 >60 mL/min/1.7 3 m2 10/25/2017 5:42 AM [facility] Blood BLOOD SPECIMEN / Unknown Venipuncture / Unknown 10/25/2017 5:00 AM CDT 10/25/2017 5:13 AM CDT Elver Askew MD LAB - CHEMISTRY ORDERABLES Performing Organization Address [facility]/ZIP Co de Phone Number [address] [phone] * MAGNESIUM BLOOD (10/25/2017 5:00 AM CDT) Magnesium 2.3 1.6 - 2.6 mg/dL 10/25/2017 5:41 AM [facility] Blood BLOOD SPECIMEN / Unknown Venipuncture / Unknown 10/25/2017 5:00 AM CDT 10/25/2017 5:13 AM CDT Elver Askew MD LAB - CHEMISTRY ORDERABLES [address] [phone] * (ABNORMAL) GLUCOSE - POINT OF CARE (10/25/2017 12:32 AM CDT) Glucose WB/POC 211(H) 70 - 115 mg/dL 10/25/2017 12:48 AM T [facility] Specimen Type Arterial/C apillary 10/25/2017 12:48 AM T [facility] Blood BLOOD SPECIMEN / Unknown 10/25/2017 12:32 AM CDT 10/25[facility]2017 [facility]/2017 12[facility]48 AM CDT Senior Accounting Analyst: TAD ??CHERELLE CABRERA Elver Askew MD LAB - POINT OF CARE ORDERABLES [facility] [address] [phone] * (ABNORMAL) RENAL FUNCTION PANEL (10/25/2017 12:21 AM CDT) BUN 17 7 - 26 mg/dL 10/25/2017 12:47 AM [facility] Creatinine 0.6 0.6 - 1.2 mg/dL 10/25/2017 12:47 AM [facility] Sodium 141 136 - 145 mmol/L 10/25/2017 12:47 AM [facility] Potassium 3.9 3.5 - 4.5 mmol/L 10/25/2017 12:47 AM [facility] Chloride 105 98 - 107 mmol/L 10/25/2017 12:47 AM [facility] CO2 24 22 - 29 mmol/L 10/25/2017 12:47 AM [facility] Glucose 207(H) 70 - 115 mg/dL 10/25/2017 12:47 AM [facility] Albumin 3.3(L) 3.4 - 5.0 g/dL 10/25/2017 12:47 AM [facility] Calcium 9.3 8.4 - 10.2 mg/dL 10/25/2017 12:47 AM [facility] Phosphorus 1.7(L) 2.3 - 4.7 mg/dL 10/25/2017 12:47 AM [facility] Anion Gap 16 8 - 18 10/25/2017 12:47 AM [facility] BUN/Creatinine Ratio 28(H) 7 - 23 10/25/2017 12:47 AM [facility] Osmolality Calculated 300 270 - 300 mOsm/kg 10/25/2017 12:47 AM [facility] eGFR >60 >60 mL/min/1.7 3 m2 10/25/2017 12:47 AM CDT [facility] Blood BLOOD SPECIMEN / Unknown Venipuncture / Unknown 10/25/2017 12:21 AM CDT 10/25/2017 12:24 AM CDT Ronlado Flynn DO LAB - CHEMISTRY SHIRLEY GARCIA Performing Organization Address City/[facility]/ZIP Co de Phone Number [address] [phone] * (ABNORMAL) GLUCOSE - POINT OF CARE (10/24/2017 8:33 PM CDT) Glucose WB/POC 202(H) 70 - 115 mg/dL 10/24/2017 8:50 PM CDT [facility] Specimen Type Arterial/C apillary 10/24/2017 8:50 PM CDT [facility] Blood BLOOD SPECIMEN / Unknown 10/24/2017 8:33 PM CDT 10/24/2017 8:50 PM CDT [facility] - 10/24/2017 8:50 PM CDT Senior Accounting Analyst: TAD ?TEODORO CABRERA Elver Askew MD LAB - POINT OF CARE ORDERABLES Performing Organization Address City/[facility]/ZIP Co de Phone Number [address] [phone] * (ABNORMAL) GLUCOSE - POINT OF CARE (10/24/2017 4:25 PM CDT) Glucose WB/POC 174(H) 70 - 115 mg/dL 10/24/2017 4:43 PM CDT [facility] Specimen Type Arterial/C apillary 10/24/2017 4:43 PM CDT [facility] Blood BLOOD SPECIMEN / Unknown 10/24/2017 4:25 PM CDT 10/24/2017 4:43 PM CDT [facility] - 10/24/2017 4:43 PM CDT Senior Accounting Analyst: LYNDON ??ELMER Elver Askew MD LAB - POINT OF CARE ORDERABLES [facility] [address] [phone] * (ABNORMAL) RENAL FUNCTION PANEL (10/24/2017 11:[address] [facility]) BUN 14 7 - 26 mg/dL 10/24/2017 12:55 PM [facility] Creatinine 0.6 0.6 - 1.2 mg/dL 10/24/2017 12:55 PM [facility] Sodium 138 136 - 145 mmol/L 10/24/2017 12:55 PM [facility] Potassium 4.3 3.5 - 4.5 mmol/L 10/24/2017 12:55 PM [facility] Chloride 105 98 - 107 mmol/L 10/24/2017 12:55 PM [facility] CO2 26 22 - 29 mmol/L 10/24/2017 12:55 PM [facility] Glucose 228(H) 70 - 115 mg/dL 10/24/2017 12:55 PM [facility] Albumin 3.1(L) 3.4 - 5.0 g/dL 10/24/2017 12:55 PM [facility] Calcium 8.7 8.4 - 10.2 mg/dL 10/24/2017 12:55 PM [facility] Phosphorus 2.0(L) 2.3 - 4.7 mg/dL 10/24/2017 12:55 PM [facility] Anion Gap 11 8 - 18 10/24/2017 12:55 PM [facility] BUN/Creatinine Ratio 23 7 - 23 10/24/2017 12:55 PM [facility] Osmolality Calculated 294 270 - 300 mOsm/kg 10/24/2017 12:55 PM [facility] eGFR >60 >60 mL/min/1.7 3 m2 10/24/2017 12:55 PM [facility] Blood BLOOD SPECIMEN / Unknown Venipuncture / Unknown 10/24/2017 11:54 AM CDT 10/24/2017 12:[address] [facility] Ronaldo Flynn DO LAB - CHEMISTRY ORDE RABLES Performing Organization Address City/[facility]/[place] [address], [facility] [phone] * (ABNORMAL) GLUCOSE - POINT OF CARE (10/24/2017 11:52 AM CDT) Glucose WB/POC 188(H) 70 - 115 mg/dL 10/24/2017 12:11 PM CDT [facility] Specimen Type Arterial/C apillary 10/24/2017 12:11 PM CDT [facility] Blood BLOOD SPECIMEN / Unknown 10/24/2017 11:52 AM CDT 10/24/2017 12:11 PM CDT Narrative [facility] - 10/24/2017 12:11 PM CDT Senior Accounting Analyst: CADARET ??ELMER Elver Askew MD LAB - POINT OF CARE ORDERABLES Performing Organization Address [facility]/[place] [address], [facility] [phone] * (ABNORMAL) GLUCOSE - POINT OF CARE (10/24/2017 10:04 AM CDT) Glucose WB/POC 216(H) 70 - 115 mg/dL 10/24/2017 10:21 AM CDT [facility] Specimen Type Arterial/C apillary 10/24/2017 10:21 AM CDT [facility] Blood BLOOD SPECIMEN / Unknown 10/24/2017 10:04 AM CDT 10/24/2017 10:21 AM CDT Narrative [facility] - 10/24/2017 10:21 AM CDT Senior Accounting Analyst: CADARET ??ELMER Elver Askew MD LAB - POINT OF CARE ORDERABLES Performing Organization Address City/[facility]/[place] [address], [facility] [phone] * (ABNORMAL) CBC W AUTO DIFFERENTIAL (10/24/2017 4:44 AM CDT) WBC 13.0(H) 3.5 - 10.5 10? 3 /uL 10/24/2017 4:58 AM [facility] RBC 2.79(L) 3.90 - 5.00 10? 6 /uL 10/24/2017 4:58 AM [facility] Hemoglobin 8.7(L) 12.0 - 15.5 g/dL 10/24/2017 4:58 AM [facility] Hematocrit 26.2(L) 35.0 - 45.0 % 10/24/2017 4:58 AM [facility] MCV 93.9 81.0 - 97.0 fL 10/24/2017 4:58 AM [facility] MCH 31.2 28.0 - 34.0 pg 10/24/2017 4:58 AM [facility] MCHC 33.2 32.0 - 36.0 g/dL 10/24/2017 4:58 AM [facility] Platelet Count 63(L) 150 - 400 10? 3 /uL 10/24/2017 4:58 AM [facility] RDW-SD 51.0(H) 36.0 - 50.0 fL 10/24/2017 4:58 AM [facility] RDW-CV 17.0(H) 11.2 - 14.8 % 10/24/2017 4:58 AM [facility] MPV 11.4 9.3 - 12.8 fL 10/24/2017 4:58 AM [facility] Neutrophils % 88.2(H) 35.0 - 70.0 % 10/24/2017 4:58 AM [facility] Lymphocytes % 5.5(L) 19.7 - 55.1 % 10/24/2017 4:58 AM [facility] Monocytes % 6.2 3.0 - 15.0 % 10/24/2017 4:58 AM [facility] Eosinophils % 0.0 0.0 - 6.0 % 10/24/2017 4:58 AM [facility] Basophil % 0.1 0.0 - 1.5 % 10/24/2017 4:58 AM [facility] Neutrophils Absolute 11.5(H) 1.6 - 7.0 10? 3 /uL 10/24/2017 4:58 AM [facility] Lymphocyte Absolute 0.7(L) 0.8 - 2.9 10? 3 /uL 10/24/2017 4:58 AM [facility] Monocytes Absolute 0.81(H) 0.14 - 0.66 10? 3 /uL 10/24/2017 4:58 AM [facility] Eosinophils Absolute 0.00 0.00 - 0.22 10? 3 /uL 10/24/2017 4:58 AM [facility] Basophils Absolute 0.01 0.00 - 0.06 10? 3 /uL 10/24/2017 4:58 AM [facility] Immature Granulocytes % 1.9(H) 0.0 - 1.0 % 10/24/2017 4:58 AM [facility] Blood BLOOD SPECIMEN / Unknown Venipuncture / Unknown 10/24/2017 4:44 AM CDT 10/24/2017 4:47 AM CDT Ronaldo Flynn DO LAB - HEMATOLOGY ORD ERABLES Performing Organization Address City/[facility]/ZIP Co de Phone Number [address] [phone] * PTT [facility] (10/24/2017 3:39 AM CDT) APTT 30.7 23.0 - 38.4 Seconds 10/24/2017 3:57 AM [facility] Comment: Suggested therapeutic range for full dose I.V. heparin therapy for venous thromboembolism is 66.0-91.0 seconds. Blood BLOOD SPECIMEN / Unknown Venipuncture / Unknown 10/24/2017 3:39 AM CDT 10/24/2017 3:44 AM CDT Reuben Tellez MD LAB - COAGULATION OR DERABLES Performing Organization Address [facility]/ZIP Co de Phone Number [address] [phone] * PT-INR [facility] (10/24/2017 3:39 AM CDT) PT 14.1 12.1 - 14.8 Seconds 10/24/2017 3:56 AM CDT [facility] INR 1.1 See Comment 10/24/2017 3:56 AM T [facility] Comment: Suggested therapeutic range for low-intensity coumadin therapy for venous thromboembolism prophylaxis is an INR of 2.0-3.0. ??For high risk patients (Mitral Valve Prosthesis, Atrial Fibrillation, history of TIA/stroke), suggested prophylactic therapeutic range is an INR of 2.5-3.5. Blood BLOOD SPECIMEN / Unknown Venipuncture / Unknown 10/24/2017 3:39 AM CDT 10/24/2017 3:44 AM CDT Reuben Tellez MD LAB - COAGULATION OR DERABLES [address] [phone] * (ABNORMAL) GLUCOSE - POINT OF CARE (10/24/2017 3:24 AM CDT) [facility] Glucose WB/POC 182(H) 70 - 115 mg/dL 10/24/2017 3:38 AM CDT [facility] Specimen Type Arterial/C apillary 10/24/2017 3:38 AM CDT [facility] Blood BLOOD SPECIMEN / Unknown 10/24/2017 3:24 AM CDT 10/24/2017 3:38 AM CDT Narrative [facility] - 10/24/2017 3:38 AM CDT Senior Accounting Analyst: PARVEZ ??DON Elver Askew MD LAB - POINT OF CARE ORDERABLES [address] [phone] * (ABNORMAL) RENAL FUNCTION PANEL (10/24/2017 3:16 AM CDT) [facility] BUN 12 7 - 26 mg/dL 10/24/2017 3:49 AM CDT [facility] Creatinine 0.6 0.6 - 1.2 mg/dL 10/24/2017 3:49 AM [facility] Sodium 140 136 - 145 mmol/L 10/24/2017 3:49 AM [facility] Potassium 4.5 3.5 - 4.5 mmol/L 10/24/2017 3:49 AM [facility] Chloride 105 98 - 107 mmol/L 10/24/2017 3:49 AM [facility] CO2 23 22 - 29 mmol/L 10/24/2017 3:49 AM [facility] Glucose 175(H) 70 - 115 mg/dL 10/24/2017 3:49 AM [facility] Albumin 3.4 3.4 - 5.0 g/dL 10/24/2017 3:49 AM [facility] Calcium 8.9 8.4 - 10.2 mg/dL 10/24/2017 3:49 AM [facility] Phosphorus 2.1(L) 2.3 - 4.7 mg/dL 10/24/2017 3:49 AM [facility] Anion Gap 17 8 - 18 10/24/2017 3:49 AM [facility] BUN/Creatinine Ratio 20 7 - 23 10/24/2017 3:49 AM [facility] Osmolality Calculated 294 270 - 300 mOsm/kg 10/24/2017 3:49 AM [facility] eGFR >60 >60 mL/min/1.7 3 m2 10/24/2017 3:49 AM [facility] Blood BLOOD SPECIMEN / Unknown Venipuncture / Unknown 10/24/2017 3:16 AM CDT 10/24/2017 3:23 AM T Ronaldo Flynn DO LAB - CHEMISTRY SHIRLEY GARCIA [facility] Organization Address City/State/ZIP Co de Phone Number [address] [phone] * (ABNORMAL) COMPREHENSIVE METABOLIC PANEL (10/24/2017 3:16 AM T) BUN 12 7 - 26 mg/dL 10/24/2017 3:51 AM [facility] Creatinine 0.6 0.6 - 1.2 mg/dL 10/24/2017 3:51 AM [facility] Sodium 140 136 - 145 mmol/L 10/24/2017 3:51 AM [facility] Potassium 4.5 3.5 - 4.5 mmol/L 10/24/2017 3:51 AM [facility] Chloride 105 98 - 107 mmol/L 10/24/2017 3:51 AM [facility] CO2 23 22 - 29 mmol/L 10/24/2017 3:51 AM [facility] Glucose 175(H) 70 - 115 mg/dL 10/24/2017 3:51 AM [facility] Calcium 8.9 8.4 - 10.2 mg/dL 10/24/2017 3:51 AM [facility] Protein Total 5.5(L) 6.0 - 8.3 g/dL 10/24/2017 3:51 AM [facility] Albumin 3.4 3.4 - 5.0 g/dL 10/24/2017 3:51 AM [facility] Bilirubin Total 1.6(H) 0.2 - 1.2 mg/dL 10/24/2017 3:51 AM [facility] Alkaline Phosphatase 470(H) 40 - 150 Units/L 10/24/2017 3:51 AM [facility] ALT 14 0 - 55 Units/L 10/24/2017 3:51 AM [facility] AST 25 5 - 34 Units/L 10/24/2017 3:51 AM [facility] Anion Gap 17 8 - 18 10/24/2017 3:51 AM [facility] BUN/Creatinine Ratio 20 7 - 23 10/24/2017 3:51 AM [facility] Osmolality Calculated 294 270 - 300 mOsm/kg 10/24/2017 3:51 AM [facility] Albumin/Globulin Ratio 1.6 1.1 - 2.3 10/24/2017 3:51 AM [facility] eGFR >60 >60 mL/min/1.7 3 m2 10/24/2017 3:51 AM [facility] Blood BLOOD SPECIMEN / Unknown Venipuncture / Unknown 10/24/2017 3:16 AM T 10/24/2017 3:23 AM CDT Elver Askew MD LAB - CHEMISTRY ORDERABLES [address] [phone] * MAGNESIUM BLOOD (10/24/2017 3:16 AM CDT) Magnesium 2.1 1.6 - 2.6 mg/dL 10/24/2017 3:49 AM CDT [facility] Blood BLOOD SPECIMEN / Unknown Venipuncture / Unknown 10/24/2017 3:16 AM CDT 10/24/2017 3:23 AM CDT Elver Askew MD LAB - CHEMISTRY ORDERABLES [address] [phone] * (ABNORMAL) GLUCOSE - POINT OF CARE (10/23/2017 11:48 PM CDT) Glucose WB/POC 225(H) 70 - 115 mg/dL 10/24/2017 12:05 AM CDT [facility] Specimen Type Arterial/C apillary 10/24/2017 12:05 AM CDT [facility] Blood BLOOD SPECIMEN / Unknown 10/23/2017 11:48 PM CDT 10/24/2017 12:05 AM CDT Narrative [facility] - 10/24/2017 12:05 AM CDT Senior Accounting Analyst: JASON ??SHERRILL Elver Askew MD LAB - POINT OF CARE ORDERABLES [address] [phone] * (ABNORMAL) RENAL FUNCTION PANEL (10/23/2017 8:09 PM CDT) BUN 10 7 - 26 mg/dL 10/23/2017 8:36 PM CDT [facility] Creatinine 0.6 0.6 - 1.2 mg/dL 10/23/2017 8:36 PM [facility] Sodium 139 136 - 145 mmol/L 10/23/2017 8:36 PM [facility] Potassium 4.5 3.5 - 4.5 mmol/L 10/23/2017 8:36 PM [facility] Chloride 106 98 - 107 mmol/L 10/23/2017 8:36 PM [facility] CO2 22 22 - 29 mmol/L 10/23/2017 8:36 PM [facility] Glucose 189(H) 70 - 115 mg/dL 10/23/2017 8:36 PM [facility] Albumin 3.1(L) 3.4 - 5.0 g/dL 10/23/2017 8:36 PM [facility] Calcium 8.2(L) 8.4 - 10.2 mg/dL 10/23/2017 8:36 PM [facility] Phosphorus 2.0(L) 2.3 - 4.7 mg/dL 10/23/2017 8:36 PM [facility] Anion Gap 16 8 - 18 10/23/2017 8:36 PM [facility] BUN/Creatinine Ratio 17 7 - 23 10/23/2017 8:36 PM [facility] Osmolality Calculated 292 270 - 300 mOsm/kg 10/23/2017 8:36 PM [facility] eGFR >60 >60 mL/min/1.7 3 m2 10/23/2017 8:36 PM [facility] Blood BLOOD SPECIMEN / Unknown Venipuncture / Unknown 10/23/2017 8:09 PM CDT 10/23/2017 8:[address] [facility] Ronaldo Flynn DO LAB - CHEMISTRY SHIRLEY GARCIA [address] [phone] * GLUCOSE - POINT OF CARE (10/23/2017 8:[address] [facility]) Glucose WB/POC 76 70 - 115 mg/dL 10/23/2017 8:20 PM [facility] Specimen Type Arterial/C apillary 10/23/2017 8:20 PM CDT [facility] Blood BLOOD SPECIMEN / Unknown 10/23/2017 8:06 PM CDT 10/23/2017 8:20 PM CDT Narrative [facility] - 10/23/2017 8:20 PM CDT Senior Accounting Analyst: PARVEZ ?JUSTO Elver Askew MD LAB - POINT OF CARE ORDERABLES Performing Organization Address [facility]/State/ZIP Co de Phone Number [address] [phone] * (ABNORMAL) GLUCOSE - POINT OF CARE (10/23/2017 4:05 PM CDT) Glucose WB/POC 163(H) 70 - 115 mg/dL 10/23/2017 4:22 PM CDT [facility] Specimen Type Arterial/C apillary 10/23/2017 4:22 PM CDT [facility] Blood BLOOD SPECIMEN / Unknown 10/23/2017 4:05 PM CDT 10/23/2017 4:22 PM CDT Narrative [facility] - 10/23/2017 4:22 PM CDT Senior Accounting Analyst: ASIA ?TRINI Elver Askew MD LAB - POINT OF CARE ORDERABLES Performing Organization Address [facility]/ZIP Co de Phone Number [address] [phone] * (ABNORMAL) RENAL FUNCTION PANEL (10/23/2017 11:30 AM CDT) BUN 9 7 - 26 mg/dL 10/23/2017 11:59 AM CDT [facility] Creatinine 0.5(L) 0.6 - 1.2 mg/dL 10/23/2017 11:59 AM T [facility] Sodium 139 136 - 145 mmol/L 10/23/2017 11:59 AM CDT [facility] Potassium 4.1 3.5 - 4.5 mmol/L 10/23/2017 11:59 AM T [facility] Chloride 104 98 - 107 mmol/L 10/23/2017 11:59 AM [facility] CO2 27 22 - 29 mmol/L 10/23/2017 11:59 AM [facility] Glucose 181(H) 70 - 115 mg/dL 10/23/2017 11:59 AM [facility] Albumin 3.0(L) 3.4 - 5.0 g/dL 10/23/2017 11:59 AM [facility] Calcium 8.5 8.4 - 10.2 mg/dL 10/23/2017 11:59 AM [facility] Phosphorus 2.1(L) 2.3 - 4.7 mg/dL 10/23/2017 11:59 AM [facility] Anion Gap 12 8 - 18 10/23/2017 11:59 AM [facility] BUN/Creatinine Ratio 18 7 - 23 10/23/2017 11:59 AM [facility] Osmolality Calculated 291 270 - 300 mOsm/kg 10/23/2017 11:59 AM [facility] eGFR >60 >60 mL/min/1.7 3 m2 10/23/2017 11:59 AM [facility] Blood BLOOD SPECIMEN / Unknown Venipuncture / Unknown 10/23/2017 11:30 AM CDT 10/23/2017 11:39 AM CDT Ronaldo Flynn DO LAB - CHEMISTRY SHIRLEY GARCIA [facility] Organization Address City/State/ZIP Co de Phone Number [facility] [address] [phone] * (ABNORMAL) GLUCOSE - POINT OF CARE (10/23/2017 11:28 AM CDT) Glucose WB/POC 190(H) 70 - 115 mg/dL 10/23/2017 11:45 AM [facility] Specimen Type Arterial/C apillary 10/23/2017 11:45 AM [facility] Blood BLOOD SPECIMEN / Unknown 10/23/2017 11:28 AM CDT 10/23/2017 11:45 AM CDT Narrative [facility] - 10/23/2017 11:45 AM CDT Senior Accounting Analyst: CADARET ??ELMER Elver Askew MD LAB - POINT OF CARE ORDERABLES Performing Organization Address [facility]/ZIP Co de Phone Number [address] [phone] * (ABNORMAL) GLUCOSE - POINT OF CARE (10/23/2017 7:40 AM CDT) [facility] Glucose WB/POC 207(H) 70 - 115 mg/dL 10/23/2017 8:01 AM [facility] Specimen Type Arterial/C apillary 10/23/2017 8:01 AM T [facility] Blood BLOOD SPECIMEN / Unknown 10/23/2017 7:40 AM CDT 10/23/2017 8:01 AM CDT Narrative [facility] - 10/23/2017 8:01 AM CDT Senior Accounting Analyst: ASIA ??ROSALEE Elver Askew MD LAB - POINT OF CARE ORDERABLES Performing Organization Address [facility] Co de Phone Number [address] [phone] * (ABNORMAL) DIFFERENTIAL MANUAL (10/23/2017 5:56 AM CDT) [facility] WBC (corrected for NRBC) 10.2 10? 3 /uL 10/23/2017 6:46 AM [facility] Total Cell Count 100 10/24/19 18 6:46 AM [facility] Neutrophils Absolute Manual 7.96(H) 1.60 - 7.00 10? 3 /uL 10/23/2017 6:46 AM [facility] Comment:(BANDS+SEGS) x WBC = NEUT # (ANC) Lymphocyte Absolute Manual 1.33 0.80 - 2.90 10? 3 /uL 10/23/2017 6:46 AM [facility] Monocytes Absolute Manual 0.71(H) 0.14 - 0.66 10? 3 /uL 10/23/2017 6:46 AM [facility] Eosinophils Absolute Manual 0.10 0.00 - 0.22 10? 3 /uL 10/23/2017 6:46 AM [facility] Neutrophil % Manual 78(H) 30 - 60 % 10/23/2017 6:46 AM [facility] Lymphocyte % Manual 13(L) 20 - 45 % 10/23/2017 6:46 AM [facility] Monocytes % Manual 7 2 - 10 % 10/23/2017 6:46 AM [facility] Eosinophils % Manual 1 1 - 6 % 10/23/2017 6:46 AM [facility] Metamyelocyte % Manual 1(H) 0 % 10/23/2017 6:46 AM [facility] Platelet Estimate Decreased (A) Adequate 10/23/2017 6:46 AM [facility] Macrocytosis 1+(A) None 10/23/2017 6:46 AM [facility] Blood BLOOD SPECIMEN / Unknown Venipuncture / Unknown 10/23/2017 5:56 AM CDT 10/23/2017 6:00 AM T Ronaldo Flynn DO LAB - HEMATOLOGY ORD ERABLES [address] [phone] * (ABNORMAL) CBC W AUTO DIFFERENTIAL (10/23/2017 5:56 AM CDT) WBC 10.2 3.5 - 10.5 10? 3 /uL 10/23/2017 6:22 AM [facility] RBC 2.69(L) 3.90 - 5.00 10? 6 /uL 10/23/2017 6:22 AM [facility] Hemoglobin 8.4(L) 12.0 - 15.5 g/dL 10/23/2017 6:22 AM [facility] Hematocrit 24.2(L) 35.0 - 45.0 % 10/23/2017 6:22 AM [facility] MCV 90.0 81.0 - 97.0 fL 10/23/2017 6:22 AM [facility] MCH 31.2 28.0 - 34.0 pg 10/23/2017 6:22 AM [facility] MCHC 34.7 32.0 - 36.0 g/dL 10/23/2017 6:22 AM [facility] Platelet Count 52(L) 150 - 400 10? 3 /uL 10/23/2017 6:22 AM [facility] Comment:Checked by periphera l smear. RDW-SD 49.2 36.0 - 50.0 fL 10/23/2017 6:22 AM [facility] RDW-CV 15.6(H) 11.2 - 14.8 % 10/23/2017 6:22 AM [facility] MPV 12.4 9.3 - 12.8 fL 10/23/2017 6:22 AM [facility] nRBC Absolute 0.02(H) 0 10? 3 /uL 10/23/2017 6:22 AM [facility] nRBC Auto 0.2(H) 0 /100 WBC 10/23/2017 6:22 AM [facility] Blood BLOOD SPECIMEN / Unknown Venipuncture / Unknown 10/23/2017 5:56 AM CDT 10/23/2017 6:00 AM CDT Ronaldo Flynn DO LAB - HEMATOLOGY ORD ERABLES [address] [phone] * (ABNORMAL) GLUCOSE - POINT OF CARE (10/23/2017 3:51 AM CDT) Glucose WB/POC 168(H) 70 - 115 mg/dL 10/23/2017 4:07 AM T [facility] Specimen Type Arterial/C apillary 10/23/2017 4:07 AM T [facility] Blood BLOOD SPECIMEN / Unknown 10/23/2017 3:51 AM CDT 10/23/2017 4:07 AM CDT Narrative [facility] - 10/23/2017 4:07 AM CDT Senior Accounting Analyst: PARVEZ ??DON Elver Askew MD LAB - POINT OF CARE ORDERABLES [address] [place] [address], [place] [phone] * (ABNORMAL) RENAL FUNCTION PANEL (10/23/2017 3:48 AM CDT) BUN 8 7 - 26 mg/dL 10/23/2017 5:08 AM [facility] Creatinine 0.5(L) 0.6 - 1.2 mg/dL 10/23/2017 5:08 AM [facility] Sodium 136 136 - 145 mmol/L 10/23/2017 5:08 AM [facility] Potassium 4.0 3.5 - 4.5 mmol/L 10/23/2017 5:08 AM [facility] Chloride 107 98 - 107 mmol/L 10/23/2017 5:08 AM [facility] CO2 23 22 - 29 mmol/L 10/23/2017 5:08 AM [facility] Glucose 170(H) 70 - 115 mg/dL 10/23/2017 5:08 AM [facility] Albumin 3.0(L) 3.4 - 5.0 g/dL 10/23/2017 5:08 AM [facility] Calcium 8.3(L) 8.4 - 10.2 mg/dL 10/23/2017 5:08 AM [facility] Phosphorus 2.5 2.3 - 4.7 mg/dL 10/23/2017 5:08 AM [facility] Anion Gap 10 8 - 18 10/23/2017 5:08 AM [facility] BUN/Creatinine Ratio 16 7 - 23 10/23/2017 5:08 AM [facility] Osmolality Calculated 284 270 - 300 mOsm/kg 10/23/2017 5:08 AM [facility] eGFR >60 >60 mL/min/1.7 3 m2 10/23/2017 5:08 AM [facility] Blood BLOOD SPECIMEN / Unknown Venipuncture / Unknown 10/23/2017 3:48 AM CDT 10/23/2017 3:54 AM T Ronaldo Flynn DO LAB - CHEMISTRY SHIRLEY GARCIA [address] [phone] * (ABNORMAL) PTT [facility] (10/23/2017 3:48 AM CDT) APTT 39.5(H) 23.0 - 38.4 Seconds 10/23/2017 4:06 AM CDT [facility] Comment: Suggested therapeutic range for full dose I.V. heparin therapy for venous thromboembolism is 66.0-91.0 seconds. Blood BLOOD SPECIMEN / Unknown Venipuncture / Unknown 10/23/2017 3:48 AM CDT 10/23/2017 3:55 AM CDT Reuben Tellez MD LAB - COAGULATION OR DERABLES Performing Organization Address [facility] Co de Phone Number [address] [phone] * (ABNORMAL) PT-INR [facility] (10/23/2017 3:48 AM CDT) [facility] PT 15.3(H) 12.1 - 14.8 Seconds 10/23/2017 4:05 AM CDT [facility] INR 1.2 See Comment 10/23/2017 4:05 AM CDT [facility] Comment: Suggested therapeutic range for low-intensity coumadin therapy for venous thromboembolism prophylaxis is an INR of 2.0-3.0. ??For high risk patients (Mitral Valve Prosthesis, Atrial Fibrillation, history of TIA/stroke), suggested prophylactic therapeutic range is an INR of 2.5-3.5. Blood BLOOD SPECIMEN / Unknown Venipuncture / Unknown 10/23/2017 3:48 AM CDT 10/23/2017 3:55 AM CDT Reuben Tellez MD LAB - COAGULATION OR DERABLES [address] [phone] * (ABNORMAL) COMPREHENSIVE METABOLIC PANEL (10/23/2017 3:48 AM CDT) BUN 8 7 - 26 mg/dL 10/23/2017 5:10 AM [facility] Creatinine 0.5(L) 0.6 - 1.2 mg/dL 10/23/2017 5:10 AM [facility] Sodium 136 136 - 145 mmol/L 10/23/2017 5:10 AM [facility] Potassium 4.0 3.5 - 4.5 mmol/L 10/23/2017 5:10 AM [facility] Chloride 107 98 - 107 mmol/L 10/23/2017 5:10 AM [facility] CO2 23 22 - 29 mmol/L 10/23/2017 5:10 AM [facility] Glucose 170(H) 70 - 115 mg/dL 10/23/2017 5:10 AM [facility] Calcium 8.3(L) 8.4 - 10.2 mg/dL 10/23/2017 5:10 AM [facility] Protein Total 4.6(L) 6.0 - 8.3 g/dL 10/23/2017 5:10 AM [facility] Albumin 3.0(L) 3.4 - 5.0 g/dL 10/23/2017 5:10 AM [facility] Bilirubin Total 1.8(H) 0.2 - 1.2 mg/dL 10/23/2017 5:10 AM [facility] Alkaline Phosphatase 304(H) 40 - 150 Units/L 10/23/2017 5:10 AM [facility] ALT 13 0 - 55 Units/L 10/23/2017 5:10 AM [facility] AST 29 5 - 34 Units/L 10/23/2017 5:10 AM [facility] Anion Gap 10 8 - 18 10/23/2017 5:10 AM [facility] BUN/Creatinine Ratio 16 7 - 23 10/23/2017 5:10 AM [facility] Osmolality Calculated 284 270 - 300 mOsm/kg 10/23/2017 5:10 AM [facility] Albumin/Globulin Ratio 1.9 1.1 - 2.3 10/23/2017 5:10 AM [facility] eGFR >60 >60 mL/min/1.7 3 m2 10/23/2017 5:10 AM [facility] Blood BLOOD SPECIMEN / Unknown Venipuncture / Unknown 10/23/2017 3:48 AM CDT 10/23/2017 3:54 AM CDT Elver Askew MD LAB - CHEMISTRY ORDERABLES Performing Organization Address [facility]/ZIP Co de Phone Number [address] [phone] * MAGNESIUM BLOOD (10/23/2017 3:48 AM CDT) Magnesium 2.0 1.6 - 2.6 mg/dL 10/23/2017 5:08 AM CDT [facility] Blood BLOOD SPECIMEN / Unknown Venipuncture / Unknown 10/23/2017 3:48 AM CDT 10/23/2017 3:54 AM CDT Elver Askew MD LAB - CHEMISTRY ORDERABLES Performing Organization Address [facility]/ZIP Co de Phone Number [address] [phone] * (ABNORMAL) GLUCOSE - POINT OF CARE (10/22/2017 11:20 PM CDT) Glucose WB/POC 172(H) 70 - 115 mg/dL 10/23/2017 3:51 AM CDT [facility] Specimen Type Arterial/C apillary 10/23/2017 3:51 AM CDT [facility] Blood BLOOD SPECIMEN / Unknown 10/22/2017 11:20 PM CDT 10/23/2017 3:51 AM CDT Narrative [facility] - 10/23/2017 3:51 AM CDT Senior Accounting Analyst: PARVEZ ?JUSTO Elver Askew MD LAB - POINT OF CARE ORDERABLES Performing Organization Address [facility]/ZIP Co de Phone Number [address] [phone] * (ABNORMAL) GLUCOSE - POINT OF CARE (10/22/2017 8:15 PM CDT) Pathologist [facility] Glucose WB/POC 186(H) 70 - 115 mg/dL 10/22/2017 11:21 PM [facility] Specimen Type Arterial/C apillary 10/22/2017 11:21 PM [facility] Blood BLOOD SPECIMEN / Unknown 10/22/2017 8:15 PM CDT 10/22/2017 11:21 PM CDT [facility] - 10/22/2017 11:21 PM CDT Senior Accounting Analyst: PARVEZ ??DON Elver Askew MD LAB - POINT OF CARE ORDERABLES [facility] [address] [phone] * (ABNORMAL) RENAL FUNCTION PANEL (10/22/2017 8:12 PM CDT) [facility] BUN 7 7 - 26 mg/dL 10/22/2017 8:47 PM [facility] Creatinine 0.5(L) 0.6 - 1.2 mg/dL 10/22/2017 8:47 PM [facility] Sodium 136 136 - 145 mmol/L 10/22/2017 8:47 PM [facility] Potassium 4.2 3.5 - 4.5 mmol/L 10/22/2017 8:47 PM [facility] Chloride 105 98 - 107 mmol/L 10/22/2017 8:47 PM [facility] CO2 24 22 - 29 mmol/L 10/22/2017 8:47 PM [facility] Glucose 186(H) 70 - 115 mg/dL 10/22/2017 8:47 PM [facility] Albumin 3.1(L) 3.4 - 5.0 g/dL 10/22/2017 8:47 PM [facility] Calcium 8.4 8.4 - 10.2 mg/dL 10/22/2017 8:47 PM [facility] Phosphorus 2.7 2.3 - 4.7 mg/dL 10/22/2017 8:47 PM [facility] Anion Gap 11 8 - 18 10/22/2017 8:47 PM CDT [facility] BUN/Creatinine Ratio 14 7 - 23 10/22/2017 8:47 PM CDT [facility] Osmolality Calculated 285 270 - 300 mOsm/kg 10/22/2017 8:47 PM CDT [facility] eGFR >60 >60 mL/min/1.7 3 m2 10/22/2017 8:47 PM CDT [facility] Blood BLOOD SPECIMEN / Unknown Venipuncture / Unknown 10/22/2017 8:12 PM CDT 10/22/2017 8:25 PM CDT Ronaldo Flynn DO LAB - CHEMISTRY [facility]IRLEY GARCIA [address] [phone] * (ABNORMAL) GLUCOSE - POINT OF CARE (10/22/2017 5:30 PM CDT) Glucose WB/POC 192(H) 70 - 115 mg/dL 10/22/2017 5:47 PM T [facility] Specimen Type Arterial/C apillary 10/22/2017 5:47 PM CDT [facility] Blood BLOOD SPECIMEN / Unknown 10/22/2017 5:30 PM CDT 10/22/2017 5:47 PM CDT Narrative [facility] - 10/22/2017 5:47 PM CDT Senior Accounting Analyst: NACHOARET ??ELMER Elver Askew MD LAB - POINT OF CARE ORDERABLES [address] [phone] * (ABNORMAL) GLUCOSE - POINT OF CARE (10/22/2017 12:26 PM CDT) Glucose WB/POC 166(H) 70 - 115 mg/dL 10/22/2017 12:43 PM CDT [facility] Specimen Type Arterial/C apillary 10/22/2017 12:43 PM CDT [facility] Blood BLOOD SPECIMEN / Unknown 10/22/2017 12:26 PM CDT 10/22/2017 12:43 PM CDT [facility] - 10/22/2017 12:43 PM CDT Senior Accounting Analyst: LYNDON ??ELMER Elver Askew MD LAB - POINT OF CARE ORDERABLES [facility] [address] [phone] * (ABNORMAL) RENAL FUNCTION PANEL (10/22/2017 11:33 AM CDT) BUN 6(L) 7 - 26 mg/dL 10/22/2017 12:10 PM [facility] Creatinine 0.6 0.6 - 1.2 mg/dL 10/22/2017 12:10 PM [facility] Sodium 138 136 - 145 mmol/L 10/22/2017 12:10 PM [facility] Potassium 4.0 3.5 - 4.5 mmol/L 10/22/2017 12:10 PM [facility] Chloride 106 98 - 107 mmol/L 10/22/2017 12:10 PM [facility] CO2 25 22 - 29 mmol/L 10/22/2017 12:10 PM [facility] Glucose 170(H) 70 - 115 mg/dL 10/22/2017 12:10 PM [facility] Albumin 3.1(L) 3.4 - 5.0 g/dL 10/22/2017 12:10 PM [facility] Calcium 8.5 8.4 - 10.2 mg/dL 10/22/2017 12:10 PM [facility] Phosphorus 2.0(L) 2.3 - 4.7 mg/dL 10/22/2017 12:10 PM [facility] Anion Gap 11 8 - 18 10/22/2017 12:10 PM [facility] BUN/Creatinine Ratio 10 7 - 23 10/22/2017 12:10 PM [facility] Osmolality Calculated 288 270 - 300 mOsm/kg 10/22/2017 12:10 PM [facility] eGFR >60 >60 mL/min/1.7 3 m2 10/22/2017 12:10 PM [facility] Blood BLOOD SPECIMEN / Unknown Venipuncture / Unknown 10/22/2017 11:33 AM CDT 10/22/2017 11:33 AM T Reuben Tellez MD LAB - CHEMISTRY SHIRLEY GARCIA [facility] Organization Address City/State/ZIP Co de Phone Number [facility] [address] [place] [address] * (ABNORMAL) CBC W/O DIFFERENTIAL (10/22/2017 11:20 AM CDT) WBC 10.6(H) 3.5 - 10.5 10? 3 /uL 10/22/2017 11:44 AM [facility] RBC 2.51(L) 3.90 - 5.00 10? 6 /uL 10/22/2017 11:44 AM [facility] Hemoglobin 7.8(L) 12.0 - 15.5 g/dL 10/22/2017 11:44 AM [facility] Hematocrit 22.3(L) 35.0 - 45.0 % 10/22/2017 11:44 AM [facility] MCV 88.8 81.0 - 97.0 fL 10/22/2017 11:44 AM [facility] MCH 31.1 28.0 - 34.0 pg 10/22/2017 11:44 AM [facility] MCHC 35.0 32.0 - 36.0 g/dL 10/22/2017 11:44 AM [facility] Platelet Count 42(L) 150 - 400 10? 3 /uL 10/22/2017 11:44 AM [facility] Comment:Checked with the pre vious result. RDW-SD 48.1 36.0 - 50.0 fL 10/22/2017 11:44 AM [facility] RDW-CV 15.4(H) 11.2 - 14.8 % 10/22/2017 11:44 AM [facility] MPV 11.9 9.3 - 12.8 fL 10/22/2017 11:44 AM [facility] nRBC Absolute 0.06(H) 0 10? 3 /uL 10/22/2017 11:44 AM [facility] nRBC Auto 0.6(H) 0 /100 WBC 10/22/2017 11:44 AM [facility] Comment:All CBC parameters h ave been checked. Blood BLOOD SPECIMEN / Unknown Venipuncture / Unknown 10/22/2017 11:20 AM CDT 10/22/2017 11:33 AM CDT Reuben Tellez MD LAB - HEMATOLOGY ORD ERABLES [facility] [address] [phone] * (ABNORMAL) BLOOD GASES ART (10/22/2017 11:20 AM T) pH Arterial 7.42 7.35 - 7.45 10/22/2017 11:35 AM [facility] pCO2 Arterial 40 35 - 45 mmHg 10/22/2017 11:35 AM [facility] pO2 Arterial 103(H) 77 - 101 mmHg 10/22/2017 11:35 AM [facility] HCO3 Arterial 25.2 22.0 - 26.0 mmol/L 10/22/2017 11:35 AM [facility] TCO2 Arterial 26.4 25.0 - 29.0 mmol/L 10/22/2017 11:35 AM [facility] Base Excess Arterial 0.7 -2.0 - 2.0 mmol/L 10/22/2017 11:35 AM [facility] Hemoglobin Arterial 8.2(L) 12.0 - 15.5 g/dL 10/22/2017 11:35 AM [facility] Oxyhemoglobin Arterial 95.7 95.0 - 100.0 % 10/22/2017 11:35 AM [facility] Carboxyhemoglobin 0.2 0.0 - 3.0 % 10/22/2017 11:35 AM [facility] Methemoglobin 0.5 0.0 - 2.0 % 10/22/2017 11:35 AM [facility] FI O2 Arterial 30.0 % 10/22/2017 11:35 AM CDT [facility] Blood, arterial ARTERIAL BLOOD SPECIMEN / Unknown Arterial Puncture / Unknown 10/22/2017 11:20 AM CDT 10/22/2017 11:33 AM CDT Reuben Tellez MD LAB - BLOOD GASES OR DERABLES Performing Organization Address City/[facility]/ZIP Co de Phone Number [address] [phone] * (ABNORMAL) GLUCOSE - POINT OF CARE (10/22/2017 9:39 AM CDT) Glucose WB/POC 219(H) 70 - 115 mg/dL 10/22/2017 9:56 AM CDT [facility] Specimen Type Arterial/C apillary 10/22/2017 9:56 AM CDT [facility] Blood BLOOD SPECIMEN / Unknown 10/22/2017 9:39 AM CDT 10/22/2017 9:56 AM CDT Narrative [facility] - 10/22/2017 9:56 AM CDT Senior Accounting Analyst: CADARET ??ELMER Elver Askew MD LAB - POINT OF CARE ORDERABLES Performing Organization Address City/[facility]/ZIP Co de Phone Number [address] [phone] * XR CHEST 1VW PORTABLE (10/22/2017 4:50 AM CDT) Anatomical Region Laterality Modality Chest Radiographic Indira ging 10/22/2017 8:34 AM CDT Impressions 10/22/2017 4:38 PM CDT FINDINGS/IMPRESSION: An endotracheal tube tip superimposes the distal thoracic trachea. A left internal jugular approach central venous catheter tip superimposes the right atrium. A right upper extremity peripherally inserted central catheter tip superimposes the superior vena cava. An enteric tube tip superimposes the gastric body. Mild right basilar atelectasis/airspace disease is increased from prior examination. Left perihilar opacities are unchanged and may represent edema versus infection. A small left pleural effusion is increased from prior examination. No pneumothorax or right pleural effusion is identified. The cardiomediastinal silhouette is normal. Dictated by Thom Reina MD (vice president global digital marketing). This report was approved ??by Thom Reina ?? on 10/22/2017 4:[address] EULALIA Morel M.D. have personally reviewed and interpreted this examination/study. This report was electronically signed by EULALIA MCKEE M.D. ??on 10/22/2017 4:38 PM . Narrative 10/22/2017 4:38 PM CDT EXAMINATION: XR CHEST 1VW PORTABLE HISTORY: A41.9: Septic shock R65.21: Septic shock COMPARISON: Comparison is made with a prior chest radiograph from 10/19/2017. Procedure Note Eulalia Mckee MD - 10/22/2017 EXAMINATION: XR CHEST 1VW PORTABLE HISTORY: A41.9: Septic shock R65.21: Septic shock COMPARISON: Comparison is made with a prior chest radiograph from10/19/2017. FINDINGS/IMPRESSION: An endotracheal tube tip superimposes the distal thoracic trachea. Aleft internal jugular approach central venous catheter tip superimposes the right atrium. A right upper extremity peripherally inserted central catheter tip superimposes the superior vena cava. An enteric tube tip superimposes the gastric body. Mild right basilar atelectasis/airspace disease is increased from prior examination. Left perihilar opacities are unchanged and may represent edema versus infection. A small left pleural effusion is increased from prior examination. No pneumothorax or right pleural effusion is identified. The cardiomediastinal silhouette is normal. Dictated by Thom Reina MD (vice president global digital marketing). This report was approved by Thom Reina on 10/22/2017 4:[address] EULALIA Morel M.D. have personally reviewed and interpreted this examination/study. This report was electronically signed by EULALIA MCKEE M.D. on 10/22/2017 4:38 PM . Reuben Tellez MD DIAGNOSTIC IMAGING O RDERABLES * (ABNORMAL) CBC W AUTO DIFFERENTIAL (10/22/2017 4:46 AM CDT) WBC 12.9(H) 3.5 - 10.5 10? 3 /uL 10/22/2017 5:45 AM [facility] Comment:The WBC count is cor rected by the instrument for nRBC's RBC 2.68(L) 3.90 - 5.00 10? 6 /uL 10/22/2017 5:45 AM [facility] Hemoglobin 8.4(L) 12.0 - 15.5 g/dL 10/22/2017 5:45 AM [facility] Hematocrit 23.9(L) 35.0 - 45.0 % 10/22/2017 5:45 AM [facility] MCV 89.2 81.0 - 97.0 fL 10/22/2017 5:45 AM [facility] MCH 31.3 28.0 - 34.0 pg 10/22/2017 5:45 AM [facility] MCHC 35.1 32.0 - 36.0 g/dL 10/22/2017 5:45 AM [facility] Platelet Count 42(L) 150 - 400 10? 3 /uL 10/22/2017 5:45 AM [facility] RDW-SD 49.1 36.0 - 50.0 fL 10/22/2017 5:45 AM [facility] RDW-CV 15.7(H) 11.2 - 14.8 % 10/22/2017 5:45 AM [facility] MPV 11.7 9.3 - 12.8 fL 10/22/2017 5:45 AM [facility] nRBC Absolute 0.19(H) 0 10? 3 /uL 10/22/2017 5:45 AM [facility] nRBC Auto 1.5(H) 0 /100 WBC 10/22/2017 5:45 AM [facility] Comment:Checked Neutrophils % 80.4(H) 35.0 - 70.0 % 10/22/2017 5:45 AM [facility] Lymphocytes % 9.8(L) 19.7 - 55.1 % 10/22/2017 5:45 AM [facility] Monocytes % 6.9 3.0 - 15.0 % 10/22/2017 5:45 AM [facility] Eosinophils % 2.6 0.0 - 6.0 % 10/22/2017 5:45 AM [facility] Basophil % 0.3 0.0 - 1.5 % 10/22/2017 5:45 AM [facility] Neutrophils Absolute 10.4(H) 1.6 - 7.0 10? 3 /uL 10/22/2017 5:45 AM [facility] Lymphocyte Absolute 1.3 0.8 - 2.9 10? 3 /uL 10/22/2017 5:45 AM [facility] Monocytes Absolute 0.89(H) 0.14 - 0.66 10? 3 /uL 10/22/2017 5:45 AM [facility] Eosinophils Absolute 0.33(H) 0.00 - 0.22 10? 3 /uL 10/22/2017 5:45 AM [facility] Basophils Absolute 0.04 0.00 - 0.06 10? 3 /uL 10/22/2017 5:45 AM [facility] Immature Granulocytes % 2.8(H) 0.0 - 1.0 % 10/22/2017 5:45 AM [facility] Blood BLOOD SPECIMEN / Unknown Venipuncture / Unknown 10/22/2017 4:46 AM CDT 10/22/2017 4:52 AM CDT Ronaldo Flynn DO LAB - HEMATOLOGY ORD ERABLES [address] [phone] * (ABNORMAL) PTT [facility] (10/22/2017 4:46 AM CDT) APTT 56.7(H) 23.0 - 38.4 Seconds 10/22/2017 5:07 AM [facility] Comment: Suggested therapeutic range for full dose I.V. heparin therapy for venous thromboembolism is 66.0-91.0 seconds. Blood BLOOD SPECIMEN / Unknown Venipuncture / Unknown 10/22/2017 4:46 AM CDT 10/22/2017 4:52 AM CDT Reuben Tellez MD LAB - COAGULATION OR DERABLES [address] [phone] * (ABNORMAL) PT-INR [facility] (10/22/2017 4:46 AM CDT) PT 17.6(H) 12.1 - 14.8 Seconds 10/22/2017 5:06 AM CDT [facility] INR 1.5 See Comment 10/22/2017 5:06 AM T [facility] Comment: Suggested therapeutic range for low-intensity coumadin therapy for venous thromboembolism prophylaxis is an INR of 2.0-3.0. ??For high risk patients (Mitral Valve Prosthesis, Atrial Fibrillation, history of TIA/stroke), suggested prophylactic therapeutic range is an INR of 2.5-3.5. Blood BLOOD SPECIMEN / Unknown Venipuncture / Unknown 10/22/2017 4:46 AM CDT 10/22/2017 4:52 AM CDT Reuben Tellez MD LAB - COAGULATION OR DERABLES Performing Organization Address City/[facility]/ZIP Co de Phone Number [address] [phone] * CALCIUM IONIZED WHOLE BLOOD (10/22/2017 4:46 AM CDT) Ionized Calcium Whole Blood 1.22 mmol/L 10/22/2017 4:56 AM T [facility] Adjusted Ionized Calcium 1.22 1.19 - 1.34 mmol/L 10/22/2017 4:56 AM CDT [facility] pH Whole Blood 7.40 7.35 - 7.45 10/22/2017 4:56 AM CDT [facility] Blood BLOOD SPECIMEN / Unknown Venipuncture / Unknown 10/22/2017 4:46 AM CDT 10/22/2017 4:52 AM CDT Elver Askew MD LAB - CHEMISTRY ORDERABLES [address] [phone] * (ABNORMAL) COMPREHENSIVE METABOLIC PANEL (10/22/2017 4:[address] [facility]) BUN 6(L) 7 - 26 mg/dL 10/22/2017 5:17 AM [facility] Creatinine 0.6 0.6 - 1.2 mg/dL 10/22/2017 5:17 AM [facility] Sodium 138 136 - 145 mmol/L 10/22/2017 5:17 AM [facility] Potassium 3.9 3.5 - 4.5 mmol/L 10/22/2017 5:17 AM [facility] Chloride 105 98 - 107 mmol/L 10/22/2017 5:17 AM [facility] CO2 25 22 - 29 mmol/L 10/22/2017 5:17 AM [facility] Glucose 188(H) 70 - 115 mg/dL 10/22/2017 5:17 AM [facility] Calcium 9.0 8.4 - 10.2 mg/dL 10/22/2017 5:17 AM [facility] Protein Total 4.5(L) 6.0 - 8.3 g/dL 10/22/2017 5:17 AM [facility] Albumin 3.1(L) 3.4 - 5.0 g/dL 10/22/2017 5:17 AM [facility] Bilirubin Total 1.8(H) 0.2 - 1.2 mg/dL 10/22/2017 5:17 AM [facility] Alkaline Phosphatase 315(H) 40 - 150 Units/L 10/22/2017 5:17 AM [facility] ALT 14 0 - 55 Units/L 10/22/2017 5:17 AM [facility] AST 33 5 - 34 Units/L 10/22/2017 5:17 AM [facility] Anion Gap 12 8 - 18 10/22/2017 5:17 AM [facility] BUN/Creatinine Ratio 10 7 - 23 10/22/2017 5:17 AM [facility] Osmolality Calculated 289 270 - 300 mOsm/kg 10/22/2017 5:17 AM [facility] Albumin/Globulin Ratio 2.2 1.1 - 2.3 10/22/2017 5:17 AM [facility] eGFR >60 >60 mL/min/1.7 3 m2 10/22/2017 5:17 AM [facility] Blood BLOOD SPECIMEN / Unknown Venipuncture / Unknown 10/22/2017 4:46 AM CDT 10/22/2017 4:52 AM CDT Elver Askew MD LAB - CHEMISTRY ORDERABLES Performing Organization Address [facility]/ZIP Co de Phone Number [address] [phone] * TYPE + SCREEN PANEL (10/22/2017 4:46 AM CDT) Pathologist [facility] [place] Antibody Screen NEG 5:45 AM CDT [facility] ABO Rh O POS 10/22/2017 5:45 AM CDT [facility] Blood Bank BLOOD SPECIMEN / Unknown Venipuncture / Unknown 10/22/2017 4:46 AM CDT 10/22/2017 5:03 AM CDT Reuben Tellez MD LAB - BLOOD BANK ORD ERABLES Performing Organization Address [facility] Co de Phone Number [facility] [address] [place] [address] * (ABNORMAL) RENAL FUNCTION PANEL (10/22/2017 4:46 AM CDT) BUN 6(L) 7 - 26 mg/dL 10/22/2017 5:13 AM [facility] Creatinine 0.6 0.6 - 1.2 mg/dL 10/22/2017 5:13 AM [facility] Sodium 138 136 - 145 mmol/L 10/22/2017 5:13 AM [facility] Potassium 3.9 3.5 - 4.5 mmol/L 10/22/2017 5:13 AM [facility] Chloride 105 98 - 107 mmol/L 10/22/2017 5:13 AM [facility] CO2 25 22 - 29 mmol/L 10/22/2017 5:13 AM [facility] Glucose 188(H) 70 - 115 mg/dL 10/22/2017 5:13 AM [facility] Albumin 3.1(L) 3.4 - 5.0 g/dL 10/22/2017 5:13 AM [facility] Calcium 9.0 8.4 - 10.2 mg/dL 10/22/2017 5:13 AM [facility] Phosphorus 2.9 2.3 - 4.7 mg/dL 10/22/2017 5:13 AM [facility] Anion Gap 12 8 - 18 10/22/2017 5:13 AM [facility] BUN/Creatinine Ratio 10 7 - 23 10/22/2017 5:13 AM [facility] Osmolality Calculated 289 270 - 300 mOsm/kg 10/22/2017 5:13 AM [facility] eGFR >60 >60 mL/min/1.7 3 m2 10/22/2017 5:13 AM [facility] Blood BLOOD SPECIMEN / Unknown Venipuncture / Unknown 10/22/2017 4:46 AM CDT 10/22/2017 4:52 AM CDT Reuben Tellez MD LAB - CHEMISTRY ORDE RABLES [address] [phone] * MAGNESIUM BLOOD (10/22/2017 4:46 AM CDT) Pathologist [facility] [place] Magnesium 1.9 1.6 - 2.6 mg/dL 10/22/2017 5:13 AM T [facility] Blood BLOOD SPECIMEN / Unknown Venipuncture / Unknown 10/22/2017 4:46 AM CDT 10/22/2017 4:52 AM CDT Elver Askew MD LAB - CHEMISTRY ORDERABLES [address] [phone] * (ABNORMAL) GLUCOSE - POINT OF CARE (10/22/2017 12:22 AM CDT) Pathologist [facility] [place] Glucose WB/POC 195(H) 70 - 115 mg/dL 10/22/2017 12:36 AM CDT [facility] Specimen Type Arterial/C apillary 10/22/2017 12:36 AM CDT [facility] Blood BLOOD SPECIMEN / Unknown 10/22/2017 12:22 AM CDT 10/22/2017 12:36 AM CDT Narrative [facility] - 10/22/2017 12:36 AM CDT Senior Accounting Analyst: ERMIAS ??SHERLYN Elver Askew MD LAB - POINT OF CARE ORDERABLES [address] [phone] * (ABNORMAL) CALCIUM IONIZED WHOLE BLOOD (10/21/2017 8:51 PM CDT) Pathologist [facility] [place] Ionized Calcium Whole Blood 1.12 mmol/L 10/21/2017 8:58 PM T [facility] Adjusted Ionized Calcium 1.14(L) 1.19 - 1.34 mmol/L 10/21/2017 8:58 PM T [facility] pH Whole Blood 7.44 7.35 - 7.45 10/21/2017 8:58 PM T [facility] Blood BLOOD SPECIMEN / Unknown Venipuncture / Unknown 10/21/2017 8:51 PM CDT 10/21/2017 8:57 PM CDT Elver Askew MD LAB - CHEMISTRY ORDERABLES [address] [phone] * (ABNORMAL) RENAL FUNCTION PANEL (10/21/2017 8:51 PM CDT) BUN 5(L) 7 - 26 mg/dL 10/21/2017 9:34 PM T [facility] Creatinine 0.6 0.6 - 1.2 mg/dL 10/21/2017 9:34 PM T [facility] Sodium 138 136 - 145 mmol/L 10/21/2017 9:34 PM [facility] Potassium 4.2 3.5 - 4.5 mmol/L 10/21/2017 9:34 PM [facility] Chloride 105 98 - 107 mmol/L 10/21/2017 9:34 PM [facility] CO2 26 22 - 29 mmol/L 10/21/2017 9:34 PM [facility] Glucose 199(H) 70 - 115 mg/dL 10/21/2017 9:34 PM [facility] Albumin 3.3(L) 3.4 - 5.0 g/dL 10/21/2017 9:34 PM [facility] Calcium 8.4 8.4 - 10.2 mg/dL 10/21/2017 9:34 PM [facility] Phosphorus 2.9 2.3 - 4.7 mg/dL 10/21/2017 9:34 PM [facility] Comment:Results are confirme d by repeat analysis. Anion Gap 11 8 - 18 10/21/2017 9:34 PM [facility] BUN/Creatinine Ratio 8 7 - 23 10/21/2017 9:34 PM [facility] Osmolality Calculated 289 270 - 300 mOsm/kg 10/21/2017 9:34 PM [facility] eGFR >60 >60 mL/min/1.7 3 m2 10/21/2017 9:34 PM [facility] Blood BLOOD SPECIMEN / Unknown Venipuncture / Unknown 10/21/2017 8:51 PM CDT 10/21/2017 8:57 PM T Reuben Tellez MD LAB - CHEMISTRY TERRIEE JOSE [facility] Organization Address City/State/ZIP Co de Phone Number [address] [phone] * GLUCOSE - POINT OF CARE (10/21/2017 4:23 PM CDT) Glucose WB/POC 86 70 - 115 mg/dL 10/21/2017 4:36 PM [facility] Specimen Type Arterial/C apillary 10/21/2017 4:36 PM [facility] Blood BLOOD SPECIMEN / Unknown 10/21/2017 4:23 PM CDT 10/21/2017 4:36 PM CDT [facility] - 10/21/2017 4:36 PM CDT Senior Accounting Analyst: ARB SHANE Elver Askew MD LAB - POINT OF CARE ORDERABLES [address] [phone] * (ABNORMAL) GLUCOSE - POINT OF CARE (10/21/2017 12:02 PM CDT) Glucose WB/POC 215(H) 70 - 115 mg/dL 10/21/2017 12:17 PM CDT [facility] Specimen Type Arterial/C apillary 10/21/2017 12:17 PM CDT [facility] Blood BLOOD SPECIMEN / Unknown 10/21/2017 12:02 PM CDT 10/21/2017 12:17 PM CDT [facility] - 10/21/2017 12:17 PM CDT Senior Accounting Analyst: ARB ??SHAWN Elver Askew MD LAB - POINT OF CARE ORDERABLES Performing Organization Address [facility]/ZIP Co de Phone Number [address] [phone] * (ABNORMAL) PT-INR [facility] (10/21/2017 12:02 PM CDT) PT 19.3(H) 12.1 - 14.8 Seconds 10/21/2017 12:23 PM CDT [facility] INR 1.7 See Comment 10/21/2017 12:23 PM T [facility] Comment: Suggested therapeutic range for low-intensity coumadin therapy for venous thromboembolism prophylaxis is an INR of 2.0-3.0. ??For high risk patients (Mitral Valve Prosthesis, Atrial Fibrillation, history of TIA/stroke), suggested prophylactic therapeutic range is an INR of 2.5-3.5. Blood BLOOD SPECIMEN / Unknown Venipuncture / Unknown 10/21/2017 12:02 PM CDT 10/21/2017 12:10 PM CDT Reuben Tellez MD LAB - COAGULATION OR DERABLES [facility] [address] [phone] * (ABNORMAL) CBC W/O DIFFERENTIAL (10/21/2017 12:02 PM CDT) WBC 14.3(H) 3.5 - 10.5 10? 3 /uL 10/21/2017 12:25 PM [facility] Comment:The WBC count is cor rected by the instrument for nRBC's. RBC 2.55(L) 3.90 - 5.00 10? 6 /uL 10/21/2017 12:25 PM [facility] Hemoglobin 8.0(L) 12.0 - 15.5 g/dL 10/21/2017 12:25 PM [facility] Hematocrit 22.4(L) 35.0 - 45.0 % 10/21/2017 12:25 PM [facility] MCV 87.8 81.0 - 97.0 fL 10/21/2017 12:25 PM [facility] MCH 31.4 28.0 - 34.0 pg 10/21/2017 12:25 PM [facility] MCHC 35.7 32.0 - 36.0 g/dL 10/21/2017 12:25 PM [facility] Platelet Count 57(L) 150 - 400 10? 3 /uL 10/21/2017 12:25 PM [facility] RDW-SD 47.9 36.0 - 50.0 fL 10/21/2017 12:25 PM [facility] RDW-CV 15.3(H) 11.2 - 14.8 % 10/21/2017 12:25 PM [facility] MPV 10.8 9.3 - 12.8 fL 10/21/2017 12:25 PM [facility] nRBC Absolute 0.46(H) 0 10? 3 /uL 10/21/2017 12:25 PM [facility] nRBC Auto 3.2(H) 0 /100 WBC 10/21/2017 12:25 PM CDT [facility] Blood BLOOD SPECIMEN / Unknown Venipuncture / Unknown 10/21/2017 12:02 PM CDT 10/21/2017 12:10 PM CDT Reuben Tellez MD LAB - HEMATOLOGY ORD ERABLES [address] [phone] * (ABNORMAL) CALCIUM IONIZED WHOLE BLOOD (10/21/2017 12:02 PM CDT) Ionized Calcium Whole Blood 1.18 mmol/L 10/21/2017 12:13 PM CDT [facility] Adjusted Ionized Calcium 1.22 1.19 - 1.34 mmol/L 10/21/2017 12:13 PM T [facility] pH Whole Blood 7.47(H) 7.35 - 7.45 10/21/2017 12:13 PM T [facility] Blood BLOOD SPECIMEN / Unknown Venipuncture / Unknown 10/21/2017 12:02 PM CDT 10/21/2017 12:10 PM CDT Elver Askew MD LAB - CHEMISTRY ORDERABLES [address] [phone] * (ABNORMAL) RENAL FUNCTION PANEL (10/21/2017 12:02 PM CDT) BUN 5(L) 7 - 26 mg/dL 10/21/2017 1:28 PM T [facility] Creatinine 0.6 0.6 - 1.2 mg/dL 10/21/2017 1:28 PM T [facility] Sodium 137 136 - 145 mmol/L 10/21/2017 1:28 PM T [facility] Potassium 4.3 3.5 - 4.5 mmol/L 10/21/2017 1:28 PM T [facility] Chloride 106 98 - 107 mmol/L 10/21/2017 1:28 PM [facility] CO2 23 22 - 29 mmol/L 10/21/2017 1:28 PM [facility] Glucose 210(H) 70 - 115 mg/dL 10/21/2017 1:28 PM [facility] Albumin 3.3(L) 3.4 - 5.0 g/dL 10/21/2017 1:28 PM [facility] Calcium 8.8 8.4 - 10.2 mg/dL 10/21/2017 1:28 PM [facility] Phosphorus 1.5(L) 2.3 - 4.7 mg/dL 10/21/2017 1:28 PM [facility] Comment:Confirmed by repeat analysis. Anion Gap 12 8 - 18 10/21/2017 1:28 PM [facility] BUN/Creatinine Ratio 8 7 - 23 10/21/2017 1:28 PM [facility] Osmolality Calculated 287 270 - 300 mOsm/kg 10/21/2017 1:28 PM [facility] eGFR >60 >60 mL/min/1.7 3 m2 10/21/2017 1:28 PM [facility] Blood BLOOD SPECIMEN / Unknown Venipuncture / Unknown 10/21/2017 12:02 PM CDT 10/21/2017 12:10 PM CDT Reuben Tellez MD LAB - CHEMISTRY [facility] Organization Address City/State/[facility] Co de Phone Number [facility] [address] [place] [address] * (ABNORMAL) GLUCOSE - POINT OF CARE (10/21/2017 7:53 AM CDT) Glucose WB/POC 192(H) 70 - 115 mg/dL 10/21/2017 8:10 AM T [facility] Specimen Type Arterial/C apillary 10/21/2017 8:10 AM T [facility] Blood BLOOD SPECIMEN / Unknown 10/21/2017 7:53 AM CDT 10/21/2017 8:10 AM CDT Narrative [facility] - 10/21/2017 8:10 AM CDT Senior Accounting Analyst: HENRY ??SHAWN Elver Askew MD LAB - POINT OF CARE ORDERABLES Performing Organization Address [facility]/ZIP Co de Phone Number [address] [phone] * PHOSPHORUS BLOOD (10/21/2017 3:18 AM CDT) Phosphorus 3.0 2.3 - 4.7 mg/dL 10/21/2017 4:16 AM T [facility] Comment:Results are confirme d by repeat analysis. Blood BLOOD SPECIMEN / Unknown Venipuncture / Unknown 10/21/2017 3:18 AM CDT 10/21/2017 3:21 AM CDT Reuben Tellez MD LAB - CHEMISTRY ORDE RABLES Performing Organization Address [facility] Co de Phone Number [address] [phone] * PTT [facility] (10/21/2017 3:18 AM CDT) APTT 37.4 23.0 - 38.4 Seconds 10/21/2017 3:34 AM T [facility] Comment: Suggested therapeutic range for full dose I.V. heparin therapy for venous thromboembolism is 66.0-91.0 seconds. Blood BLOOD SPECIMEN / Unknown Venipuncture / Unknown 10/21/2017 3:18 AM CDT 10/21/2017 3:21 AM CDT Reuben Tellez MD LAB - COAGULATION OR DERABLES Performing Organization Address [facility]/ZIP Co de Phone Number [address] [phone] * (ABNORMAL) PT-INR [facility] (10/21/2017 3:18 AM CDT) PT 19.9(H) 12.1 - 14.8 Seconds 10/21/2017 3:33 AM CDT [facility] INR 1.7 See Comment 10/21/2017 3:33 AM [facility] Comment: Suggested therapeutic range for low-intensity coumadin therapy for venous thromboembolism prophylaxis is an INR of 2.0-3.0. ??For high risk patients (Mitral Valve Prosthesis, Atrial Fibrillation, history of TIA/stroke), suggested prophylactic therapeutic range is an INR of 2.5-3.5. Blood BLOOD SPECIMEN / Unknown Venipuncture / Unknown 10/21/2017 3:18 AM CDT 10/21/2017 3:21 AM CDT Reuben Tellez MD LAB - COAGULATION OR DERABLES [facility] [address] [phone] * (ABNORMAL) CBC W/O DIFFERENTIAL (10/21/2017 3:18 AM CDT) WBC 16.3(H) 3.5 - 10.5 10? 3 /uL 10/21/2017 3:29 AM [facility] RBC 2.57(L) 3.90 - 5.00 10? 6 /uL 10/21/2017 3:29 AM [facility] Hemoglobin 8.0(L) 12.0 - 15.5 g/dL 10/21/2017 3:29 AM [facility] Hematocrit 22.3(L) 35.0 - 45.0 % 10/21/2017 3:29 AM [facility] MCV 86.8 81.0 - 97.0 fL 10/21/2017 3:29 AM [facility] MCH 31.1 28.0 - 34.0 pg 10/21/2017 3:29 AM [facility] MCHC 35.9 32.0 - 36.0 g/dL 10/21/2017 3:29 AM [facility] Platelet Count 62(L) 150 - 400 10? 3 /uL 10/21/2017 3:29 AM [facility] RDW-SD 47.3 36.0 - 50.0 fL 10/21/2017 3:29 AM [facility] RDW-CV 15.2(H) 11.2 - 14.8 % 10/21/2017 3:29 AM CDT [facility] MPV 11.0 9.3 - 12.8 fL 10/21/2017 3:29 AM CDT [facility] Blood BLOOD SPECIMEN / Unknown Venipuncture / Unknown 10/21/2017 3:18 AM CDT 10/21/2017 3:21 AM CDT Reuben Tellez MD LAB - HEMATOLOGY ORD ERABLES Performing Organization Address [facility]/State/ZIP Co de Phone Number [address] [phone] * (ABNORMAL) CALCIUM IONIZED WHOLE BLOOD (10/21/2017 3:18 AM CDT) Ionized Calcium Whole Blood 1.13 mmol/L 10/21/2017 3:29 AM T [facility] Adjusted Ionized Calcium 1.16(L) 1.19 - 1.34 mmol/L 10/21/2017 3:29 AM T [facility] pH Whole Blood 7.46(H) 7.35 - 7.45 10/21/2017 3:29 AM T [facility] Blood BLOOD SPECIMEN / Unknown Venipuncture / Unknown 10/21/2017 3:18 AM CDT 10/21/2017 3:21 AM CDT Elver Askew MD LAB - CHEMISTRY ORDERABLES Performing Organization Address [facility]/ZIP Co de Phone Number [address] [phone] * (ABNORMAL) COMPREHENSIVE METABOLIC PANEL (10/21/2017 3:18 AM CDT) BUN 5(L) 7 - 26 mg/dL 10/21/2017 3:46 AM T [facility] Creatinine 0.7 0.6 - 1.2 mg/dL 10/21/2017 3:46 AM T [facility] Sodium 137 136 - 145 mmol/L 10/21/2017 3:46 AM T [facility] Potassium 4.1 3.5 - 4.5 mmol/L 10/21/2017 3:46 AM [facility] Chloride 105 98 - 107 mmol/L 10/21/2017 3:46 AM [facility] CO2 22 22 - 29 mmol/L 10/21/2017 3:46 AM [facility] Glucose 174(H) 70 - 115 mg/dL 10/21/2017 3:46 AM [facility] Calcium 8.6 8.4 - 10.2 mg/dL 10/21/2017 3:46 AM [facility] Protein Total 4.7(L) 6.0 - 8.3 g/dL 10/21/2017 3:46 AM [facility] Albumin 3.6 3.4 - 5.0 g/dL 10/21/2017 3:46 AM [facility] Bilirubin Total 1.4(H) 0.2 - 1.2 mg/dL 10/21/2017 3:46 AM [facility] Alkaline Phosphatase 315(H) 40 - 150 Units/L 10/21/2017 3:46 AM [facility] ALT 13 0 - 55 Units/L 10/21/2017 3:46 AM [facility] AST 37(H) 5 - 34 Units/L 10/21/2017 3:46 AM [facility] Anion Gap 14 8 - 18 10/21/2017 3:46 AM [facility] BUN/Creatinine Ratio 7 7 - 23 10/21/2017 3:46 AM [facility] Osmolality Calculated 285 270 - 300 mOsm/kg 10/21/2017 3:46 AM [facility] Albumin/Globulin Ratio 3.3(H) 1.1 - 2.3 10/21/2017 3:46 AM [facility] eGFR >60 >60 mL/min/1.7 3 m2 10/21/2017 3:46 AM [facility] Blood BLOOD SPECIMEN / Unknown Venipuncture / Unknown 10/21/2017 3:18 AM T 10/21/2017 3:[address] [facility] Elver Askew MD LAB - CHEMISTRY ORDERABLES [facility] [address] [phone] * (ABNORMAL) LDH BLOOD (10/21/2017 3:18 AM CDT) Pathologist [facility] [place] LDH Total 340(H) 125 - 243 Units/L 10/21/2017 3:44 AM CDT [facility] Blood BLOOD SPECIMEN / Unknown Venipuncture / Unknown 10/21/2017 3:18 AM CDT 10/21/2017 3:21 AM CDT Ronaldo Flynn DO LAB - CHEMISTRY ORDLynn GARCIA [address] [phone] * (ABNORMAL) FIBRINOGEN ACTIVITY (10/21/2017 3:18 AM CDT) Pathologist [facility] Fibrinogen Clauss 120(L) 200 - 400 mg/dL 10/21/2017 3:39 AM CDT [facility] Blood BLOOD SPECIMEN / Unknown Venipuncture / Unknown 10/21/2017 3:18 AM CDT 10/21/2017 3:21 AM CDT Reuben Tellez MD LAB - COAGULATION OR DERABLES [address] [phone] * MAGNESIUM BLOOD (10/21/2017 3:18 AM CDT) [facility] Magnesium 2.1 1.6 - 2.6 mg/dL 10/21/2017 3:44 AM CDT [facility] Blood BLOOD SPECIMEN / Unknown Venipuncture / Unknown 10/21/2017 3:18 AM CDT 10/21/2017 3:21 AM CDT Elver Askew MD LAB - CHEMISTRY ORDERABLES [address] [phone] * (ABNORMAL) GLUCOSE - POINT OF CARE (10/21/2017 12:13 AM CDT) Glucose WB/POC 252(H) 70 - 115 mg/dL 10/21/2017 12:40 AM CDT [facility] Specimen Type Arterial/C apillary 10/21/2017 12:40 AM CDT [facility] Blood BLOOD SPECIMEN / Unknown 10/21/2017 12:13 AM CDT 10/21/2017 12:40 AM CDT Narrative [facility] - 10/21/2017 12:40 AM CDT Senior Accounting Analyst: JASON ??SHERRILL Elver Askew MD LAB - POINT OF CARE ORDERABLES Performing Organization Address City/[facility]/ZIP Co de Phone Number [address] [phone] * (ABNORMAL) PT-INR [facility] (10/20/2017 8:01 PM CDT) PT 20.3(H) 12.1 - 14.8 Seconds 10/20/2017 8:23 PM CDT [facility] INR 1.8 See Comment 10/20/2017 8:23 PM T [facility] Comment: Suggested therapeutic range for low-intensity coumadin therapy for venous thromboembolism prophylaxis is an INR of 2.0-3.0. ??For high risk patients (Mitral Valve Prosthesis, Atrial Fibrillation, history of TIA/stroke), suggested prophylactic therapeutic range is an INR of 2.5-3.5. Blood BLOOD SPECIMEN / Unknown Venipuncture / Unknown 10/20/2017 8:01 PM CDT 10/20/2017 8:10 PM CDT Reuben Tellez MD LAB - COAGULATION OR DERABLES [address] [phone] * (ABNORMAL) CBC W/O DIFFERENTIAL (10/20/2017 8:01 PM CDT) WBC 16.6(H) 3.5 - 10.5 10? 3 /uL 10/20/2017 8:16 PM [facility] RBC 2.56(L) 3.90 - 5.00 10? 6 /uL 10/20/2017 8:16 PM [facility] Hemoglobin 7.9(L) 12.0 - 15.5 g/dL 10/20/2017 8:16 PM [facility] Hematocrit 22.0(L) 35.0 - 45.0 % 10/20/2017 8:16 PM [facility] MCV 85.9 81.0 - 97.0 fL 10/20/2017 8:16 PM [facility] MCH 30.9 28.0 - 34.0 pg 10/20/2017 8:16 PM [facility] MCHC 35.9 32.0 - 36.0 g/dL 10/20/2017 8:16 PM [facility] Platelet Count 60(L) 150 - 400 10? 3 /uL 10/20/2017 8:16 PM [facility] RDW-SD 46.7 36.0 - 50.0 fL 10/20/2017 8:16 PM [facility] RDW-CV 15.1(H) 11.2 - 14.8 % 10/20/2017 8:16 PM [facility] MPV 11.1 9.3 - 12.8 fL 10/20/2017 8:16 PM [facility] Blood BLOOD SPECIMEN / Unknown Venipuncture / Unknown 10/20/2017 8:01 PM CDT 10/20/2017 8:10 PM T Reuben Tellez MD LAB - HEMATOLOGY ORD ERABLES [address] [phone] * (ABNORMAL) CALCIUM IONIZED WHOLE BLOOD (10/20/2017 8:01 PM CDT) Ionized Calcium Whole Blood 1.19 mmol/L 10/20/2017 8:14 PM [facility] Adjusted Ionized Calcium 1.23 1.19 - 1.34 mmol/L 10/20/2017 8:14 PM [facility] pH Whole Blood 7.48(H) 7.35 - 7.45 10/20/2017 8:14 PM [facility] Blood BLOOD SPECIMEN / Unknown Venipuncture / Unknown 10/20/2017 8:01 PM CDT 10/20/2017 8:11 PM CDT Elver Askew MD LAB - CHEMISTRY ORDERABLES [facility] [address] [place] [address] * (ABNORMAL) RENAL FUNCTION PANEL (10/20/2017 8:01 PM T) BUN 5(L) 7 - 26 mg/dL 10/20/2017 8:42 PM [facility] Creatinine 0.7 0.6 - 1.2 mg/dL 10/20/2017 8:42 PM [facility] Sodium 135(L) 136 - 145 mmol/L 10/20/2017 8:42 PM [facility] Potassium 3.4(L) 3.5 - 4.5 mmol/L 10/20/2017 8:42 PM [facility] Chloride 103 98 - 107 mmol/L 10/20/2017 8:42 PM [facility] CO2 24 22 - 29 mmol/L 10/20/2017 8:42 PM [facility] Glucose 289(H) 70 - 115 mg/dL 10/20/2017 8:42 PM [facility] Albumin 3.5 3.4 - 5.0 g/dL 10/20/2017 8:42 PM [facility] Calcium 8.9 8.4 - 10.2 mg/dL 10/20/2017 8:42 PM [facility] Phosphorus 1.0(L) 2.3 - 4.7 mg/dL 10/20/2017 8:42 PM [facility] Anion Gap 11 8 - 18 10/20/2017 8:42 PM [facility] BUN/Creatinine Ratio 7 7 - 23 10/20/2017 8:42 PM [facility] Osmolality Calculated 288 270 - 300 mOsm/kg 10/20/2017 8:42 PM CDT [facility] eGFR >60 >60 mL/min/1.7 3 m2 10/20/2017 8:42 PM CDT [facility] Blood BLOOD SPECIMEN / Unknown Venipuncture / Unknown 10/20/2017 8:01 PM CDT 10/20/2017 8:10 PM CDT Reuben Tellez MD LAB - CHEMISTRY ORDLynn GARCIA Performing Organization Address City/[facility]/ZIP Co de Phone Number [address] [phone] * (ABNORMAL) GLUCOSE - POINT OF CARE (10/20/2017 7:58 PM CDT) Glucose WB/POC 258(H) 70 - 115 mg/dL 10/20/2017 8:12 PM CDT [facility] Specimen Type Arterial/C apillary 10/20/2017 8:12 PM CDT [facility] Blood BLOOD SPECIMEN / Unknown 10/20/2017 7:58 PM CDT 10/20/2017 8:12 PM CDT Narrative [facility] - 10/20/2017 8:12 PM CDT Senior Accounting Analyst: JASON ??SHERRILL Elver Askew MD LAB - POINT OF CARE ORDERABLES Performing Organization Address [facility]/[place] [address], [facility] [phone] * (ABNORMAL) PHOSPHORUS BLOOD (10/20/2017 5:20 PM CDT) Phosphorus 1.2(L) 2.3 - 4.7 mg/dL 10/20/2017 6:13 PM CDT [facility] Blood BLOOD SPECIMEN / Unknown Venipuncture / Unknown 10/20/2017 5:20 PM CDT 10/20/2017 5:26 PM CDT Reuben Tellez MD LAB - CHEMISTRY [place]IR[place] GARCIA [address] [phone] * (ABNORMAL) GLUCOSE - POINT OF CARE (10/20/2017 4:02 PM CDT) Glucose WB/POC 279(H) 70 - 115 mg/dL 10/20/2017 4:19 PM CDT [facility] Specimen Type Arterial/C apillary 10/20/2017 4:19 PM CDT [facility] Blood BLOOD SPECIMEN / Unknown 10/20/2017 4:02 PM CDT 10/20/2017 4:19 PM CDT Narrative [facility] - 10/20/2017 4:19 PM CDT Senior Accounting Analyst: DARLINE ??MYCHEL Elver Askew MD LAB - POINT OF CARE ORDERABLES Performing Organization Address [facility] Co de Phone Number [address] [phone] * (ABNORMAL) PT-INR [facility] (10/20/2017 11:59 AM CDT) PT 23.2(H) 12.1 - 14.8 Seconds 10/20/2017 12:20 PM CDT [facility] INR 2.1 See Comment 10/20/2017 12:20 PM CDT [facility] Comment: Suggested therapeutic range for low-intensity coumadin therapy for venous thromboembolism prophylaxis is an INR of 2.0-3.0. ??For high risk patients (Mitral Valve Prosthesis, Atrial Fibrillation, history of TIA/stroke), suggested prophylactic therapeutic range is an INR of 2.5-3.5. Blood BLOOD SPECIMEN / Unknown Venipuncture / Unknown 10/20/2017 11:59 AM CDT 10/20/2017 12:01 PM CDT Reuben Tellez MD LAB - COAGULATION OR DERABLES Performing Organization Address City/[facility]/ZIP Co de Phone Number [address] [phone] * (ABNORMAL) CBC W/O DIFFERENTIAL (10/20/2017 11:59 AM CDT) WBC 14.2(H) 3.5 - 10.5 10? 3 /uL 10/20/2017 12:09 PM [facility] RBC 2.50(L) 3.90 - 5.00 10? 6 /uL 10/20/2017 12:09 PM [facility] Hemoglobin 7.7(L) 12.0 - 15.5 g/dL 10/20/2017 12:09 PM [facility] Hematocrit 21.4(L) 35.0 - 45.0 % 10/20/2017 12:09 PM [facility] MCV 85.6 81.0 - 97.0 fL 10/20/2017 12:09 PM [facility] MCH 30.8 28.0 - 34.0 pg 10/20/2017 12:09 PM [facility] MCHC 36.0 32.0 - 36.0 g/dL 10/20/2017 12:09 PM [facility] Platelet Count 54(L) 150 - 400 10? 3 /uL 10/20/2017 12:09 PM [facility] RDW-SD 46.7 36.0 - 50.0 fL 10/20/2017 12:09 PM [facility] RDW-CV 15.0(H) 11.2 - 14.8 % 10/20/2017 12:09 PM [facility] MPV 10.3 9.3 - 12.8 fL 10/20/2017 12:09 PM [facility] Blood BLOOD SPECIMEN / Unknown Venipuncture / Unknown 10/20/2017 11:59 AM CDT 10/20/2017 12:01 PM CDT Reuben Tellez MD LAB - HEMATOLOGY ORD ERABLES [facility] [address] [phone] * CALCIUM IONIZED WHOLE BLOOD (10/20/2017 11:59 AM CDT) Ionized Calcium Whole Blood 1.23 mmol/L 10/20/2017 12:06 PM [facility] Adjusted Ionized Calcium 1.24 1.19 - 1.34 mmol/L 10/20/2017 12:06 PM [facility] pH Whole Blood 7.42 7.35 - 7.45 10/20/2017 12:06 PM [facility] Blood BLOOD SPECIMEN / Unknown Venipuncture / Unknown 10/20/2017 11:59 AM CDT 10/20/2017 12:01 PM CDT Elver Askew MD LAB - CHEMISTRY ORDERABLES [facility] [address] [phone] * (ABNORMAL) RENAL FUNCTION PANEL (10/20/2017 11:59 AM T) BUN 6(L) 7 - 26 mg/dL 10/20/2017 12:30 PM [facility] Creatinine 0.7 0.6 - 1.2 mg/dL 10/20/2017 12:30 PM [facility] Sodium 135(L) 136 - 145 mmol/L 10/20/2017 12:30 PM [facility] Potassium 3.3(L) 3.5 - 4.5 mmol/L 10/20/2017 12:30 PM [facility] Chloride 102 98 - 107 mmol/L 10/20/2017 12:30 PM [facility] CO2 26 22 - 29 mmol/L 10/20/2017 12:30 PM [facility] Glucose 239(H) 70 - 115 mg/dL 10/20/2017 12:30 PM [facility] Albumin 3.8 3.4 - 5.0 g/dL 10/20/2017 12:30 PM [facility] Calcium 9.0 8.4 - 10.2 mg/dL 10/20/2017 12:30 PM [facility] Phosphorus <0.7(LL) 2.3 - 4.7 mg/dL 10/20/2017 12:30 PM [facility] Comment:RESULTS CALLED TO AN D READ BACK BY ALEJANDRO GARCIA AT 12:27 PM, 10/20/2017 Anion Gap 10 8 - 18 10/20/2017 12:30 PM CDT [facility] BUN/Creatinine Ratio 9 7 - 23 10/20/2017 12:30 PM CDT [facility] Osmolality Calculated 285 270 - 300 mOsm/kg 10/20/2017 12:30 PM CDT [facility] eGFR >60 >60 mL/min/1.7 3 m2 10/20/2017 12:30 PM T [facility] Blood BLOOD SPECIMEN / Unknown Venipuncture / Unknown 10/20/2017 11:59 AM CDT 10/20/2017 12:01 PM CDT Reuben Tellez MD LAB - CHEMISTRY SHIRLEY GARCIA [address] [phone] * GLUCOSE - POINT OF CARE (10/20/2017 11:55 AM CDT) Glucose WB/POC 85 70 - 115 mg/dL 10/20/2017 12:12 PM CDT [facility] Specimen Type Arterial/C apillary 10/20/2017 12:12 PM CDT [facility] Blood BLOOD SPECIMEN / Unknown 10/20/2017 11:55 AM CDT 10/20/2017 12:12 PM CDT Narrative [facility] - 10/20/2017 12:12 PM CDT Senior Accounting Analyst: DARLINE ??DOROTHY Elver Askew MD LAB - POINT [place] [address], [facility] [phone] * (ABNORMAL) GLUCOSE - POINT OF CARE (10/20/2017 8:00 AM CDT) Glucose WB/POC 262(H) 70 - 115 mg/dL 10/20/2017 8:27 AM CDT [facility] Specimen Type Arterial/C apillary 10/20/2017 8:27 AM CDT [facility] Blood BLOOD SPECIMEN / Unknown 10/20/2017 8:00 AM CDT 10/20/2017 8:27 AM CDT Narrative [facility] - 10/20/2017 8:27 AM CDT Senior Accounting Analyst: DARLINE ??DOROTHY Elver Askew MD LAB - POINT OF CARE ORDERABLES Performing Organization Address [facility]/ZIP Co de Phone Number [address] [phone] * (ABNORMAL) PHOSPHORUS BLOOD (10/20/2017 3:41 AM CDT) Phosphorus 1.0(L) 2.3 - 4.7 mg/dL 10/20/2017 4:15 AM CDT [facility] Blood BLOOD SPECIMEN / Unknown Venipuncture / Unknown 10/20/2017 3:41 AM CDT 10/20/2017 3:44 AM CDT Reuben Tellez MD LAB - CHEMISTRY ORDE RABLES Performing Organization Address [facility] Co de Phone Number [address] [phone] * (ABNORMAL) PTT [facility] (10/20/2017 3:41 AM CDT) APTT 42.2(H) 23.0 - 38.4 Seconds 10/20/2017 3:59 AM CDT [facility] Comment: Suggested therapeutic range for full dose I.V. heparin therapy for venous thromboembolism is 66.0-91.0 seconds. Blood BLOOD SPECIMEN / Unknown Venipuncture / Unknown 10/20/2017 3:41 AM CDT 10/20/2017 3:44 AM CDT Reuben Tellez MD LAB - COAGULATION OR DERABLES Performing Organization Address [facility]/[place] [address], [facility] [phone] * (ABNORMAL) PT-INR [facility] (10/20/2017 3:41 AM CDT) PT 23.4(H) 12.1 - 14.8 Seconds 10/20/2017 3:57 AM CDT [facility] INR 2.1 See Comment 10/20/2017 3:57 AM T [facility] Comment: Suggested therapeutic range for low-intensity coumadin therapy for venous thromboembolism prophylaxis is an INR of 2.0-3.0. ??For high risk patients (Mitral Valve Prosthesis, Atrial Fibrillation, history of TIA/stroke), suggested prophylactic therapeutic range is an INR of 2.5-3.5. Blood BLOOD SPECIMEN / Unknown Venipuncture / Unknown 10/20/2017 3:41 AM CDT 10/20/2017 3:44 AM CDT Reuben Tellez MD LAB - COAGULATION OR DERABLES Performing Organization Address [facility] Co de Phone Number [address] [phone] * (ABNORMAL) CALCIUM IONIZED WHOLE BLOOD (10/20/2017 3:41 AM CDT) [facility] Ionized Calcium Whole Blood 1.14 mmol/L 10/20/2017 3:46 AM T [facility] Adjusted Ionized Calcium 1.16(L) 1.19 - 1.34 mmol/L 10/20/2017 3:46 AM T [facility] pH Whole Blood 7.44 7.35 - 7.45 10/20/2017 3:46 AM T [facility] Blood BLOOD SPECIMEN / Unknown Venipuncture / Unknown 10/20/2017 3:41 AM CDT 10/20/2017 3:44 AM CDT Elver Askew MD LAB - CHEMISTRY ORDERABLES Performing Organization Address [facility]/ZIP Co de Phone Number [address] [phone] * (ABNORMAL) COMPREHENSIVE METABOLIC PANEL (10/20/2017 3:41 AM CDT) Pathologist [facility] BUN 7 7 - 26 mg/dL 10/20/2017 4:04 AM [facility] Creatinine 0.8 0.6 - 1.2 mg/dL 10/20/2017 4:04 AM [facility] Sodium 136 136 - 145 mmol/L 10/20/2017 4:04 AM [facility] Potassium 3.5 3.5 - 4.5 mmol/L 10/20/2017 4:04 AM [facility] Chloride 103 98 - 107 mmol/L 10/20/2017 4:04 AM [facility] CO2 21(L) 22 - 29 mmol/L 10/20/2017 4:04 AM [facility] Glucose 234(H) 70 - 115 mg/dL 10/20/2017 4:04 AM [facility] Calcium 8.9 8.4 - 10.2 mg/dL 10/20/2017 4:04 AM [facility] Protein Total 4.9(L) 6.0 - 8.3 g/dL 10/20/2017 4:04 AM [facility] Albumin 4.1 3.4 - 5.0 g/dL 10/20/2017 4:04 AM [facility] Bilirubin Total 2.0(H) 0.2 - 1.2 mg/dL 10/20/2017 4:04 AM [facility] Alkaline Phosphatase 296(H) 40 - 150 Units/L 10/20/2017 4:04 AM [facility] ALT 12 0 - 55 Units/L 10/20/2017 4:04 AM [facility] AST 42(H) 5 - 34 Units/L 10/20/2017 4:04 AM [facility] Anion Gap 16 8 - 18 10/20/2017 4:04 AM [facility] BUN/Creatinine Ratio 9 7 - 23 10/20/2017 4:04 AM [facility] Osmolality Calculated 288 270 - 300 mOsm/kg 10/20/2017 4:04 AM [facility] Albumin/Globulin Ratio 5.1(H) 1.1 - 2.3 10/20/2017 4:04 AM [facility] eGFR >60 >60 mL/min/1.7 3 m2 10/20/2017 4:04 AM [facility] Blood BLOOD SPECIMEN / Unknown Venipuncture / Unknown 10/20/2017 3:41 AM CDT 10/20/2017 3:44 AM CDT Elver Askew MD LAB - CHEMISTRY ORDERABLES [facility] [address] [phone] * (ABNORMAL) CBC W AUTO DIFFERENTIAL (10/20/2017 3:41 AM CDT) WBC 17.6(H) 3.5 - 10.5 10? 3 /uL 10/20/2017 3:53 AM [facility] Comment:The WBC count is cor rected by the instrument for nRBC's RBC 2.75(L) 3.90 - 5.00 10? 6 /uL 10/20/2017 3:53 AM [facility] Hemoglobin 8.5(L) 12.0 - 15.5 g/dL 10/20/2017 3:53 AM [facility] Hematocrit 23.3(L) 35.0 - 45.0 % 10/20/2017 3:53 AM [facility] MCV 84.7 81.0 - 97.0 fL 10/20/2017 3:53 AM [facility] MCH 30.9 28.0 - 34.0 pg 10/20/2017 3:53 AM [facility] MCHC 36.5(H) 32.0 - 36.0 g/dL 10/20/2017 3:53 AM [facility] Platelet Count 69(L) 150 - 400 10? 3 /uL 10/20/2017 3:53 AM [facility] RDW-SD 46.0 36.0 - 50.0 fL 10/20/2017 3:53 AM [facility] RDW-CV 15.0(H) 11.2 - 14.8 % 10/20/2017 3:53 AM [facility] MPV 10.9 9.3 - 12.8 fL 10/20/2017 3:53 AM [facility] nRBC Absolute 0.29(H) 0 10? 3 /uL 10/20/2017 3:53 AM [facility] nRBC Auto 1.7(H) 0 /100 WBC 10/20/2017 3:53 AM [facility] Comment:Confirmed by repeat analysis. Neutrophils % 90.0(H) 35.0 - 70.0 % 10/20/2017 3:53 AM [facility] Lymphocytes % 3.8(L) 19.7 - 55.1 % 10/20/2017 3:53 AM [facility] Monocytes % 5.8 3.0 - 15.0 % 10/20/2017 3:53 AM [facility] Eosinophils % 0.2 0.0 - 6.0 % 10/20/2017 3:53 AM [facility] Basophil % 0.2 0.0 - 1.5 % 10/20/2017 3:53 AM [facility] Neutrophils Absolute 15.8(H) 1.6 - 7.0 10? 3 /uL 10/20/2017 3:53 AM [facility] Lymphocyte Absolute 0.7(L) 0.8 - 2.9 10? 3 /uL 10/20/2017 3:53 AM [facility] Monocytes Absolute 1.02(H) 0.14 - 0.66 10? 3 /uL 10/20/2017 3:53 AM [facility] Eosinophils Absolute 0.03 0.00 - 0.22 10? 3 /uL 10/20/2017 3:53 AM [facility] Basophils Absolute 0.03 0.00 - 0.06 10? 3 /uL 10/20/2017 3:53 AM [facility] Immature Granulocytes % 1.1(H) 0.0 - 1.0 % 10/20/2017 3:53 AM [facility] Blood BLOOD SPECIMEN / Unknown Venipuncture / Unknown 10/20/2017 3:41 AM CDT 10/20/2017 3:44 AM T Reuben Tellez MD LAB - HEMATOLOGY ORD ERABLES [facility] [address] [phone] * MAGNESIUM BLOOD (10/20/2017 3:41 AM CDT) Magnesium 2.0 1.6 - 2.6 mg/dL 10/20/2017 4:04 AM CDT [facility] Blood BLOOD SPECIMEN / Unknown Venipuncture / Unknown 10/20/2017 3:41 AM CDT 10/20/2017 3:44 AM CDT Elver Askew MD LAB - CHEMISTRY ORDERABLES Performing Organization Address City/[facility]/ZIP Co de Phone Number [address] [phone] * (ABNORMAL) GLUCOSE - POINT OF CARE (10/20/2017 2:23 AM CDT) Glucose WB/POC 215(H) 70 - 115 mg/dL 10/20/2017 2:40 AM CDT [facility] Specimen Type Arterial/C apillary 10/20/2017 2:40 AM CDT [facility] Blood BLOOD SPECIMEN / Unknown 10/20/2017 2:23 AM CDT 10/20/2017 2:40 AM CDT Narrative [facility] - 10/20/2017 2:40 AM CDT Senior Accounting Analyst: ERMIAS ??SHERLYN Elver Askew MD LAB - POINT OF CARE ORDERABLES Performing Organization Address [facility]/ZIP Co de Phone Number [address] [phone] * (ABNORMAL) GLUCOSE - POINT OF CARE (10/19/2017 8:52 PM CDT) Glucose WB/POC 183(H) 70 - 115 mg/dL 10/19/2017 9:08 PM CDT [facility] Specimen Type Arterial/C apillary 10/19/2017 9:08 PM CDT [facility] Blood BLOOD SPECIMEN / Unknown 10/19/2017 8:52 PM CDT 10/19/2017 9:08 PM CDT Narrative [facility] - 10/19/2017 9:08 PM CDT Senior Accounting Analyst: ERMIAS ?DIANNE Elver Askew MD LAB - POINT OF CARE ORDERABLES Performing Organization Address [facility] Co de Phone Number [address] [phone] * (ABNORMAL) PTT [facility] (10/19/2017 8:49 PM CDT) APTT 45.0(H) 23.0 - 38.4 Seconds 10/19/2017 9:26 PM CDT [facility] Comment: Suggested therapeutic range for full dose I.V. heparin therapy for venous thromboembolism is 66.0-91.0 seconds. Blood BLOOD SPECIMEN / Unknown Venipuncture / Unknown 10/19/2017 8:49 PM CDT 10/19/2017 8:56 PM CDT Reuben Tellez MD LAB - COAGULATION OR DERABLES Performing Organization Address [facility] Co de Phone Number [address] [phone] * (ABNORMAL) PT-INR [facility] (10/19/2017 8:49 PM CDT) PT 23.7(H) 12.1 - 14.8 Seconds 10/19/2017 9:25 PM CDT [facility] INR 2.1 See Comment 10/19/2017 9:25 PM CDT [facility] Comment: Suggested therapeutic range for low-intensity coumadin therapy for venous thromboembolism prophylaxis is an INR of 2.0-3.0. ??For high risk patients (Mitral Valve Prosthesis, Atrial Fibrillation, history of TIA/stroke), suggested prophylactic therapeutic range is an INR of 2.5-3.5. Blood BLOOD SPECIMEN / Unknown Venipuncture / Unknown 10/19/2017 8:49 PM CDT 10/19/2017 8:56 PM CDT Reuben Tellez MD LAB - COAGULATION OR DERABLES [facility] [address] [phone] * (ABNORMAL) CBC W/O DIFFERENTIAL (10/19/2017 8:49 PM CDT) WBC 18.8(H) 3.5 - 10.5 10? 3 /uL 10/19/2017 9:12 PM CDT [facility] RBC 2.94(L) 3.90 - 5.00 10? 6 /uL 10/19/2017 9:12 PM T [facility] Hemoglobin 9.0(L) 12.0 - 15.5 g/dL 10/19/2017 9:12 PM T [facility] Hematocrit 25.1(L) 35.0 - 45.0 % 10/19/2017 9:12 PM [facility] MCV 85.4 81.0 - 97.0 fL 10/19/2017 9:12 PM T [facility] MCH 30.6 28.0 - 34.0 pg 10/19/2017 9:12 PM T [facility] MCHC 35.9 32.0 - 36.0 g/dL 10/19/2017 9:12 PM [facility] Platelet Count 68(L) 150 - 400 10? 3 /uL 10/19/2017 9:12 PM [facility] RDW-SD 45.1 36.0 - 50.0 fL 10/19/2017 9:12 PM [facility] RDW-CV 14.6 11.2 - 14.8 % 10/19/2017 9:12 PM [facility] MPV 11.1 9.3 - 12.8 fL 10/19/2017 9:12 PM [facility] Blood BLOOD SPECIMEN / Unknown Venipuncture / Unknown 10/19/2017 8:49 PM CDT 10/19/2017 8:56 PM CDT Reuben Tellez MD LAB - HEMATOLOGY ORD ERABLES [facility] [address] [place] [address] * (ABNORMAL) CALCIUM IONIZED WHOLE BLOOD (10/19/2017 8:49 PM CDT) Ionized Calcium Whole Blood 1.14 mmol/L 10/19/2017 8:59 PM CDT [facility] Adjusted Ionized Calcium 1.17(L) 1.19 - 1.34 mmol/L 10/19/2017 8:59 PM CDT [facility] pH Whole Blood 7.46(H) 7.35 - 7.45 10/19/2017 8:59 PM CDT [facility] Blood BLOOD SPECIMEN / Unknown Venipuncture / Unknown 10/19/2017 8:49 PM CDT 10/19/2017 8:56 PM CDT Elver Askew MD LAB - CHEMISTRY ORDERABLES Performing Organization Address [facility]/ZIP Co de Phone Number [address] [phone] * (ABNORMAL) FIBRINOGEN ACTIVITY (10/19/2017 8:49 PM CDT) Pathologist [facility] Fibrinogen Clauss 117(L) 200 - 400 mg/dL 10/19/2017 9:31 PM CDT [facility] Blood BLOOD SPECIMEN / Unknown Venipuncture / Unknown 10/19/2017 8:49 PM CDT 10/19/2017 8:56 PM CDT Reuben Tellez MD LAB - COAGULATION OR DERABLES [address] [phone] * (ABNORMAL) RENAL FUNCTION PANEL (10/19/2017 8:49 PM CDT) BUN 8 7 - 26 mg/dL 10/19/2017 9:14 PM CDT [facility] Creatinine 1.0 0.6 - 1.2 mg/dL 10/19/2017 9:14 PM CDT [facility] Sodium 135(L) 136 - 145 mmol/L 10/19/2017 9:14 PM CDT [facility] Potassium 3.6 3.5 - 4.5 mmol/L 10/19/2017 9:14 PM [facility] Chloride 102 98 - 107 mmol/L 10/19/2017 9:14 PM [facility] CO2 19(L) 22 - 29 mmol/L 10/19/2017 9:14 PM [facility] Glucose 187(H) 70 - 115 mg/dL 10/19/2017 9:14 PM [facility] Albumin 4.3 3.4 - 5.0 g/dL 10/19/2017 9:14 PM [facility] Calcium 9.0 8.4 - 10.2 mg/dL 10/19/2017 9:14 PM [facility] Phosphorus 1.1(L) 2.3 - 4.7 mg/dL 10/19/2017 9:14 PM [facility] Anion Gap 18 8 - 18 10/19/2017 9:14 PM [facility] BUN/Creatinine Ratio 8 7 - 23 10/19/2017 9:14 PM [facility] Osmolality Calculated 283 270 - 300 mOsm/kg 10/19/2017 9:14 PM [facility] eGFR 58(L) >60 mL/min/1.7 3 m2 10/19/2017 9:14 PM [facility] Blood BLOOD SPECIMEN / Unknown Venipuncture / Unknown 10/19/2017 8:49 PM CDT 10/19/2017 8:56 PM CDT Reuben Tellez MD LAB - CHEMISTRY SHIRLEY GARCIA [facility] Organization Address City/State/[facility] Co de Phone Number [address] [phone] * XR CHEST 1VW PORTABLE (10/19/2017 7:33 PM CDT) Anatomical Region Laterality Modality Chest Radiographic Indira ging 10/20/2017 7:22 AM CDT Impressions 10/20/2017 11:05 AM CDT FINDINGS/IMPRESSION: An endotracheal tube tip superimposes the mid thoracic trachea. A left internal jugular approach central venous catheter tip superimposes the right atrium. An enteric tube tip superimposes the gastric fundus. A right upper extremity peripherally inserted central catheter tip superimposes the right atrium. The lung volumes are increased compared to prior examination. Left parahilar opacities are persistent and may represent edema versus infection. Left pleural effusion is suggested Right basilar atelectasis/airspace disease is decreased. There is no pneumothorax. The cardiomediastinal silhouette is normal. Dictated by Thom Reina MD (vice president global digital marketing). Dr. YANIRA Morel M.D. have personally reviewed and interpreted this examination/study. This report was electronically signed by YANIRA AGUILAR M.D. ??on 10/20/2017 11:05 AM . Narrative 10/20/2017 11:05 AM CDT EXAMINATION: XR CHEST 1VW PORTABLE HISTORY: J90: Pleural effusion COMPARISON: Comparison is made with a chest radiograph from 10/19/2017. Procedure Note Yanira Aguilar MD - 10/20/2017 EXAMINATION: XR CHEST 1VW PORTABLE HISTORY: J90: Pleural effusion COMPARISON: Comparison is made with a chest radiograph from 10/19/2017. FINDINGS/IMPRESSION: An endotracheal tube tip superimposes the mid thoracic trachea. A left internal jugular approach central venous catheter tip superimposes the right atrium. An enteric tube tip superimposes the gastric fundus. Aright upper extremity peripherally inserted central catheter tip superimposes the right atrium. The lung volumes are increased compared to prior examination. Left parahilar opacities are persistent and may represent edema versus infection. Left pleural effusion is suggested Right basilar atelectasis/airspace disease is decreased. There is no pneumothorax. The cardiomediastinal silhouette is normal. Dictated by Thom Reina MD (vice president global digital marketing). Dr. YANIRA Morel M.D. have personally reviewed and interpreted this examination/study. This report was electronically signed by YANIRA AGUILAR M.D. on 10/20/2017 11:05 AM . Reuben Tellez MD DIAGNOSTIC IMAGING O RDERABLES * CULTURE ANAEROBE (10/19/2017 4:03 PM CDT) Culture No anaerobic organisms isolated DEJUAN 10/25/2017 5:28 PM CDT [facility] Microbiology ASCITIC FLUID SPECIMEN / Unknown Collection / Unknown 10/19/2017 4:03 PM CDT 10/19/2017 4:07 PM CDT Narrative [facility] - 10/25/2017 5:28 PM CDT Bottle Only !!!!! ??No Gram Stain !!!! Mireya Palma DO LAB - MICROBIOLOGY O RDERABLES Performing Organization Address City/[facility]/ZIP Co de Phone Number [facility] [address] [place] [address], [facility] [phone] * (ABNORMAL) GLUCOSE - POINT OF CARE (10/19/2017 4:02 PM CDT) Glucose WB/POC 199(H) 70 - 115 mg/dL 10/19/2017 4:30 PM CDT [facility] Specimen Type Arterial/C apillary 10/19/2017 4:30 PM CDT [facility] Blood BLOOD SPECIMEN / Unknown 10/19/2017 4:02 PM CDT 10/19/2017 4:30 PM CDT Narrative [facility] - 10/19/2017 4:30 PM CDT Senior Accounting Analyst: ASIA ?TRINI Elver Askew MD LAB - POINT OF CARE ORDERABLES Performing Organization Address [facility] [place] [address], [facility] [phone] * CULTURE FLUID+GRAM STAIN (10/19/2017 4:02 PM CDT) Culture No growth DEJUAN 10/27/2017 3:25 PM CDT [facility] Fluid ASCITIC FLUID SPECIMEN / Unknown Collection / Unknown 10/19/2017 4:02 PM CDT 10/19/2017 4:07 PM CDT Narrative [facility] - 10/27/2017 3:25 PM CDT Bottles Only No Gram Stain Mireya Palma DO LAB - MICROBIOLOGY O RDERABLES [facility] [address] [place] [address], [facility] [phone] * DIFFERENTIAL MANUAL FLUID (10/19/2017 4:01 PM CDT) Segs % Fluid 46 % 10/19/2017 4:38 PM CDT [facility] Lymphocytes % Fluid 16 % 10/19/2017 4:38 PM CDT [facility] Monocytes % Fluid 10 % 10/19/2017 4:38 PM CDT [facility] Macrophages % Fluid 28 % 10/19/2017 4:38 PM CDT [facility] Fluid (Ascities) Collection / Unknown 10/19/2017 4:01 PM CDT 10/19/2017 4:07 PM CDT Mireya Palma DO LAB - BODY FLUID ORD ERABLES [facility] [address] [place] [address], [facility] [phone] * (ABNORMAL) CELL COUNT W DIFFERENTIAL FLUID (10/19/2017 4:01 PM CDT) Color Fluid Yellow(A) Colorless, Straw 10/19/2017 4:24 PM [facility] Clarity Fluid Slighty Cloudy(A) Clear 10/19/2017 4:24 PM [facility] Volume Fluid 3.0 mL 10/19/2017 4:24 PM [facility] WBC Fluid 22 Reference Range Not Established /uL 10/19/2017 4:24 PM [facility] RBC Fluid 1,000 Reference Range Not Established /uL 10/19/2017 4:24 PM [facility] Differential Manual Differential to follow. 10/19/2017 4:24 PM [facility] Fluid (Ascities) Collection / Unknown 10/19/2017 4:01 PM CDT 10/19/2017 4:07 PM CDT Narrative [facility] - 10/19/2017 4:24 PM CDT No established reference range for WBC and RBC body fluid count. Mireya Palma DO LAB - BODY FLUID ORD ERABLES [facility] [address] [phone] * (ABNORMAL) BLOOD GASES ART (10/19/2017 4:01 PM T) pH Arterial 7.43 7.35 - 7.45 10/19/2017 4:09 PM [facility] pCO2 Arterial 29(L) 35 - 45 mmHg 10/19/2017 4:09 PM [facility] pO2 Arterial 185(H) 77 - 101 mmHg 10/19/2017 4:09 PM [facility] HCO3 Arterial 19.0(L) 22.0 - 26.0 mmol/L 10/19/2017 4:09 PM [facility] TCO2 Arterial 19.9(L) 25.0 - 29.0 mmol/L 10/19/2017 4:09 PM [facility] Base Excess Arterial -4.6(L) -2.0 - 2.0 mmol/L 10/19/2017 4:09 PM [facility] Hemoglobin Arterial 8.5(L) 12.0 - 15.5 g/dL 10/19/2017 4:09 PM [facility] Oxyhemoglobin Arterial 97.3 95.0 - 100.0 % 10/19/2017 4:09 PM [facility] Carboxyhemoglobin 0.3 0.0 - 3.0 % 10/19/2017 4:09 PM [facility] Methemoglobin 0.5 0.0 - 2.0 % 10/19/2017 4:09 PM [facility] FI O2 Arterial 70.0 % 10/19/2017 4:09 PM [facility] Blood, arterial ARTERIAL BLOOD SPECIMEN / Unknown Arterial Puncture / Unknown 10/19/2017 4:01 PM CDT 10/19/2017 4:[address] [facility] Reuben Tellez MD LAB - BLOOD GASES OR DERABLES [facility] [address] [place] [address] * (ABNORMAL) CBC W/O DIFFERENTIAL (10/19/2017 12:[address] [facility]) WBC 16.7(H) 3.5 - 10.5 10? 3 /uL 10/19/2017 12:45 PM [facility] RBC 2.78(L) 3.90 - 5.00 10? 6 /uL 10/19/2017 12:45 PM [facility] Comment: All CBC parameters have been checked. Confirmed by repeat analysis. Hemoglobin 8.6(L) 12.0 - 15.5 g/dL 10/19/2017 12:45 PM [facility] Comment: All CBC parameters have been checked. Confirmed by repeat analysis. Hematocrit 23.9(L) 35.0 - 45.0 % 10/19/2017 12:45 PM [facility] Comment: All CBC parameters have been checked. Confirmed by repeat analysis. MCV 86.0 81.0 - 97.0 fL 10/19/2017 12:45 PM [facility] MCH 30.9 28.0 - 34.0 pg 10/19/2017 12:45 PM [facility] MCHC 36.0 32.0 - 36.0 g/dL 10/19/2017 12:45 PM [facility] Platelet Count 60(L) 150 - 400 10? 3 /uL 10/19/2017 12:45 PM [facility] RDW-SD 44.2 36.0 - 50.0 fL 10/19/2017 12:45 PM [facility] RDW-CV 14.1 11.2 - 14.8 % 10/19/2017 12:45 PM [facility] MPV 11.1 9.3 - 12.8 fL 10/19/2017 12:45 PM [facility] nRBC Absolute 0.15(H) 0 10? 3 /uL 10/19/2017 12:45 PM [facility] nRBC Auto 0.9(H) 0 /100 WBC 10/19/2017 12:45 PM [facility] Comment: All CBC parameters have been checked. Confirmed by repeat analysis. Blood BLOOD SPECIMEN / Unknown Venipuncture / Unknown 10/19/2017 12:34 PM CDT 10/19/2017 12:38 PM CDT Reuben Tellez MD LAB - HEMATOLOGY ORD ERABLES [address] [phone] * (ABNORMAL) CALCIUM IONIZED WHOLE BLOOD (10/19/2017 12:34 PM CDT) Ionized Calcium Whole Blood 1.13 mmol/L 10/19/2017 12:39 PM [facility] Adjusted Ionized Calcium 1.15(L) 1.19 - 1.34 mmol/L 10/19/2017 12:39 PM [facility] pH Whole Blood 7.43 7.35 - 7.45 10/19/2017 12:39 PM [facility] Blood BLOOD SPECIMEN / Unknown Venipuncture / Unknown 10/19/2017 12:34 PM CDT 10/19/2017 12:37 PM CDT Elver Askew MD LAB - CHEMISTRY ORDERABLES Performing Organization Address [facility]/ZIP Co de Phone Number [address] [phone] * (ABNORMAL) RENAL FUNCTION PANEL (10/19/2017 12:34 PM CDT) BUN 11 7 - 26 mg/dL 10/19/2017 12:57 PM [facility] Creatinine 1.2 0.6 - 1.2 mg/dL 10/19/2017 12:57 PM [facility] Sodium 132(L) 136 - 145 mmol/L 10/19/2017 12:57 PM [facility] Potassium 3.6 3.5 - 4.5 mmol/L 10/19/2017 12:57 PM [facility] Chloride 100 98 - 107 mmol/L 10/19/2017 12:57 PM [facility] CO2 18(L) 22 - 29 mmol/L 10/19/2017 12:57 PM [facility] Glucose 201(H) 70 - 115 mg/dL 10/19/2017 12:57 PM [facility] Albumin 4.8 3.4 - 5.0 g/dL 10/19/2017 12:57 PM [facility] Calcium 9.3 8.4 - 10.2 mg/dL 10/19/2017 12:57 PM [facility] Phosphorus 1.3(L) 2.3 - 4.7 mg/dL 10/19/2017 12:57 PM [facility] Anion Gap 18 8 - 18 10/19/2017 12:57 PM [facility] BUN/Creatinine Ratio 9 7 - 23 10/19/2017 12:57 PM [facility] Osmolality Calculated 279 270 - 300 mOsm/kg 10/19/2017 12:57 PM [facility] eGFR 47(L) >60 mL/min/1.7 3 m2 10/19/2017 12:57 PM [facility] Blood BLOOD SPECIMEN / Unknown Venipuncture / Unknown 10/19/2017 12:34 PM CDT 10/19/2017 12:38 PM CDT Reuben Tellez MD LAB - CHEMISTRY SHIRLEY GARCIA [address] [phone] * (ABNORMAL) GLUCOSE - POINT OF CARE (10/19/2017 12:29 PM CDT) Glucose WB/POC 194(H) 70 - 115 mg/dL 10/19/2017 12:50 PM T [facility] Specimen Type Arterial/C apillary 10/19/2017 12:50 PM CDT [facility] Blood BLOOD SPECIMEN / Unknown 10/19/2017 12:29 PM CDT 10/19/2017 12:50 PM CDT Narrative [facility] - 10/19/2017 12:50 PM CDT Senior Accounting Analyst: ASIA ?TRINI Elver Askew MD LAB - POINT OF CARE ORDERABLES [address] [phone] * TRANSFUSE RED BLOOD CELL UNIT(S) (10/19/2017 10:46 AM CDT) Elver Askew MD NURSING - BLOOD PROD TRANSFUSION * TRANSFUSE RED BLOOD CELL UNIT(S) (10/19/2017 10:46 AM CDT) Elver Askew MD NURSING - BLOOD PROD TRANSFUSION * (ABNORMAL) GLUCOSE - POINT OF CARE (10/19/2017 8:05 AM CDT) Glucose WB/POC 197(H) 70 - 115 mg/dL 10/19/2017 6:43 PM CDT [facility] Specimen Type Arterial/C apillary 10/19/2017 6:43 PM CDT [facility] Blood BLOOD SPECIMEN / Unknown 10/19/2017 8:05 AM CDT 10/19/2017 6:43 PM CDT Narrative [facility] - 10/19/2017 6:43 PM CDT Senior Accounting Analyst: ASIA ??ROSALEE Elver Askew MD LAB - POINT OF CARE ORDERABLES [address] [phone] * (ABNORMAL) FIBRINOGEN ACTIVITY (10/19/2017 7:40 AM CDT) Fibrinogen Clauss 114(L) 200 - 400 mg/dL 10/19/2017 8:01 AM CDT [facility] Blood BLOOD SPECIMEN / Unknown Venipuncture / Unknown 10/19/2017 7:40 AM CDT 10/19/2017 7:44 AM CDT Singh Odell MD LAB - COAGULATION OR DERABLES [address] [phone] * CT ABDOMEN PELVIS WO CONTRAST (10/19/2017 6:37 AM CDT) Anatomical Region Laterality Modality Abdomen, Pelvis Computed Tomogra phy 10/19/2017 6:39 AM CDT Impressions 10/19/2017 12:58 PM CDT IMPRESSION: 1. Zunld-un-bcyeevmk bilateral pleural effusions with confluent groundglass opacities [...] systemic hypotension. Dictated by Eli Zuniga MD (vice president global digital marketing). I, Dr. EARLENE JORDAN M.D. have personally [...] noted. There is thoracolumbar levoscoliosis. IMPRESSION: 1. Djzeu-ia-vgikkhml bilateral pleural effusions with confluent groundglass opacities and consolidation throughout both lungs likely representing pulmonary edema or multifocal pneumonia, not significantly changed from prior exam. 2. Large volume abdominopelvic ascites and diffuse body wall anasarca. 3. Persistent nephrogram in bilateral kidneys on this noncontrast examination likely from the prior CT PE protocol of 10/15/2017. Thislikely represents systemic hypotension. Dictated by Eli Zuniga MD (vice president global digital marketing). I, Dr. EARLENE JORDAN M.D. have personally reviewed and interpreted this examination/study. This report was electronically signed by EARLENE JORDAN M.D. on 10/19/2017 12:58 PM . Jean Real MD CT ORDERABLES * XR CHEST 1VW PORTABLE (10/19/2017 5:38 AM CDT) Anatomical Region Laterality Modality Chest Radiographic Indira ging 10/19/2017 8:51 AM CDT Impressions 10/19/2017 2:02 PM CDT FINDINGS/IMPRESSION: Comparison made to study from 10/18/2017. The endotracheal tube terminates in the distal thoracic trachea. An enteric tube can follow to the stomach. A left internal jugular approach catheter tip terminates at the cavoatrial junction. A right peripherally inserted central venous catheter tip terminates at the cavoatrial junction. Lung volumes are reduced resulting in bronchovascular crowding. Diffuse interstitial and airspace opacities, right greater than left represent pulmonary edema or infection. There is no pleural effusion or pneumothorax. The cardiomediastinal silhouette is partially obscured. Right basilar atelectasis/airspace disease is unchanged. Dictated by Frances Varma MD (vice president global digital marketing). This report was approved ??by Frances Varma ?? on 10/19/2017 12:51 PM . Adriel, Dr. EULALIA MCKEE M.D. have personally reviewed and interpreted this examination/study. This report was electronically signed by EULALIA MCKEE M.D. ??on 10/19/2017 2:02 PM . Narrative 10/19/2017 2:02 PM CDT EXAMINATION: XR CHEST 1VW PORTABLE HISTORY: J90: Pleural effusion J18.9: Pneumonia due to infectious organism, unspecified laterality, unspecified part of lung Procedure Note Eulalia Mckee MD - 10/19/2017 EXAMINATION: XR CHEST 1VW PORTABLE HISTORY: J90: Pleural effusion J18.9: Pneumonia due to infectious organism, unspecified laterality, unspecified part of lung FINDINGS/IMPRESSION: Comparison made to study from 10/18/2017. The endotracheal tube terminates in the distal thoracic trachea. An enteric tube can follow to the stomach. A left internal jugular approach catheter tip terminates at the cavoatrial junction. A right peripherally inserted central venous catheter tip terminates at the cavoatrial junction. Lung volumes are reduced resulting in bronchovascular crowding. Diffuse interstitial and airspace opacities, right greater than left represent pulmonary edema or infection. There is no pleural effusion or pneumothorax. The cardiomediastinal silhouette is partially obscured. Right basilar atelectasis/airspace disease is unchanged. Dictated by Frances Varma MD (vice president global digital marketing). This report was approved by Frances Varma on 10/19/2017 12:51 PM . I, Dr. EULALIA MCKEE M.D. have personally reviewed and interpreted this examination/study. This report was electronically signed by EULALIA MCKEE M.D. on 10/19/2017 2:02 PM . Elver Askew MD DIAGNOSTIC IMAG ING ORDERABLES * PREPARE FFP UNIT(S), 2 Units (10/19/2017 5:32 AM CDT) Unit Description N/A [facility] Blood Bank BLOOD SPECIMEN / Unknown 10/19/2017 5:32 AM CDT 10/19/2017 5:32 AM CDT Elver Askew MD LAB - BLOOD BAN K ORDERABLES Performing Organization Address [facility] Co de Phone Number [facility] [address] [place] [address] * PREPARE CRYOPRECIPITATE UNIT (S), 5 Units (10/19/2017 5:32 AM CDT) Unit Description N/A [facility] Blood Bank BLOOD SPECIMEN / Unknown 10/19/2017 5:32 AM CDT 10/19/2017 5:32 AM CDT Elver Askew MD LAB - BLOOD BAN K ORDERABLES Performing Organization Address [facility] Co de Phone Number [facility] [address] [place] [address] * PREPARE (CROSSMATCH) RBC UNIT(S), 1 Units (10/19/2017 5:32 AM CDT) Unit Description LR Red Cells [facility] Unit ABO O [facility] Unit Rh POS [facility] Product Code [id number] [facility] Unit Donor # [id number] [facility] Unit Status transfused [facility] Product Number [id number] [facility] Blood Type Barcode 5100 [facility] Blood Bank BLOOD SPECIMEN / Unknown 10/19/2017 5:32 AM CDT 10/19/2017 5:32 AM CDT Elver Askew MD LAB - BLOOD BAN K ORDERABLES Performing Organization Address [facility] Co de Phone Number [facility] [address] [place] [address] * SHIELA DIRECT (10/19/2017 5:28 AM CDT) Direct Shiela (VIANEY) NEG 10/19/2017 6:17 AM CDT [facility] Blood Bank BLOOD SPECIMEN / Unknown Venipuncture / Unknown 10/19/2017 5:28 AM CDT 10/19/2017 5:31 AM CDT Elver Askew MD LAB - BLOOD BAN K ORDERABLES Performing Organization Address [facility] Co de Phone Number [facility] [address] [place] [address] * TYPE + SCREEN PANEL (10/19/2017 5:28 AM CDT) Antibody Screen NEG 8 6:16 AM CDT [facility] ABO Rh O POS 10/19/2017 6:16 AM CDT [facility] Blood Bank BLOOD SPECIMEN / Unknown Venipuncture / Unknown 10/19/2017 5:28 AM CDT 10/19/2017 5:31 AM CDT Elver Askew MD LAB - BLOOD BAN K ORDERABLES Performing Organization Address [facility] de Phone Number [facility] [address] [place] [address] * PATHOLOGY PERIPHERAL SMEAR REVIEW (10/19/2017 5:28 AM CDT) Pathology Diff Review DIFFERENTIAL REVIEW - CONFIRMED DIFFERENTIAL REVIEW - CONFIRMED 10/19/2017 1:39 PM CDT [facility] Comment: Mrs. Rosa Li is a 56 year old woman with history of HERNANDEZ cirrhosis and ascites admitted for acute respiratory failure. Review of the smear shows normocytic normochromic anemia with mild anisocytosis. No significant circulating schistocytes are seen. There is mild leukocytosis predominantly neutrophils. Significant thrombocytopenia is seen. No circulating blasts are seen. MD Dr. Nic Dove has independtly reviewed this case. Blood BLOOD SPECIMEN / Unknown Venipuncture / Unknown 10/19/2017 5:28 AM CDT 10/19/2017 5:37 AM CDT Elver Askew MD LAB - PATHOLOGY /CYTOLOGY ORDERABLES [address] [phone] * (ABNORMAL) RBC MORPHOLOGY (10/19/2017 4:54 AM CDT) Platelet Estimate Decreased (A) Adequate 10/19/2017 6:17 AM CDT [facility] Anisocytosis 1+(A) None 10/19/2017 6:17 AM CDT [facility] Target Cells Rare(A) None 10/19/2017 6:17 AM CDT [facility] Ovalocytes 1+(A) None 10/19/2017 6:17 AM CDT [facility] Vin Cells Few(A) None 10/19/2017 6:17 AM CDT [facility] Tear Drop Cells Rare(A) None 8 6:17 AM CDT [facility] Blood BLOOD SPECIMEN / Unknown Venipuncture / Unknown 10/19/2017 4:54 AM CDT 10/19/2017 5:03 AM CDT Elver Askew MD LAB - HEMATOLOG Y ORDERABLES Performing Organization Address City/[facility]/ZIP Co de Phone Number [address] [phone] * RETIC COUNT (10/19/2017 4:54 AM CDT) Reticulocyte % 1.1 0.4 - 2.5 % 10/19/2017 5:29 AM CDT [facility] Reticulocyte Absolute 0.02 0.02 - 0.13 10? 6 /uL 10/19/2017 5:29 AM CDT [facility] Blood BLOOD SPECIMEN / Unknown Venipuncture / Unknown 10/19/2017 4:54 AM CDT 10/19/2017 5:03 AM CDT Elver Askew MD LAB - HEMATOLOG Y ORDERABLES [facility] [address] [phone] * (ABNORMAL) CBC W/O DIFFERENTIAL (10/19/2017 4:54 AM CDT) WBC 12.8(H) 3.5 - 10.5 10? 3 /uL 10/19/2017 5:30 AM [facility] RBC 2.04(L) 3.90 - 5.00 10? 6 /uL 10/19/2017 5:30 AM [facility] Hemoglobin 6.5(L) 12.0 - 15.5 g/dL 10/19/2017 5:30 AM [facility] Hematocrit 17.9(LL) 35.0 - 45.0 % 10/19/2017 5:30 AM [facility] Comment:Critical value(s) ny ve been verified and called to and read back by Codey Culp RN at 0507 on 10/19/2017. MCV 87.7 81.0 - 97.0 fL 10/19/2017 5:30 AM [facility] MCH 31.9 28.0 - 34.0 pg 10/19/2017 5:30 AM [facility] MCHC 36.3(H) 32.0 - 36.0 g/dL 10/19/2017 5:30 AM [facility] Platelet Count 54(L) 150 - 400 10? 3 /uL 10/19/2017 5:30 AM [facility] RDW-SD 45.3 36.0 - 50.0 fL 10/19/2017 5:30 AM [facility] RDW-CV 14.1 11.2 - 14.8 % 10/19/2017 5:30 AM [facility] MPV 10.1 9.3 - 12.8 fL 10/19/2017 5:30 AM [facility] nRBC Absolute 0.04(H) 0 10? 3 /uL 10/19/2017 5:30 AM [facility] nRBC Auto 0.3(H) 0 /100 WBC 10/19/2017 5:30 AM [facility] Blood BLOOD SPECIMEN / Unknown Venipuncture / Unknown 10/19/2017 4:54 AM CDT 10/19/2017 5:03 AM CDT Elver Askew MD LAB - HEMATOLOG Y ORDERABLES [facility] [address] [phone] * (ABNORMAL) BLOOD GASES ART (10/19/2017 4:36 AM CDT) pH Arterial 7.40 7.35 - 7.45 10/19/2017 5:00 AM [facility] pCO2 Arterial 25(L) 35 - 45 mmHg 10/19/2017 5:00 AM [facility] pO2 Arterial 159(H) 77 - 101 mmHg 10/19/2017 5:00 AM [facility] HCO3 Arterial 14.9(L) 22.0 - 26.0 mmol/L 10/19/2017 5:00 AM [facility] TCO2 Arterial 15.7(L) 25.0 - 29.0 mmol/L 10/19/2017 5:00 AM [facility] Base Excess Arterial -9.1(L) -2.0 - 2.0 mmol/L 10/19/2017 5:00 AM [facility] Hemoglobin Arterial 6.1(L) 12.0 - 15.5 g/dL 10/19/2017 5:00 AM [facility] Oxyhemoglobin Arterial 97.3 95.0 - 100.0 % 10/19/2017 5:00 AM [facility] Carboxyhemoglobin 0.3 0.0 - 3.0 % 10/19/2017 5:00 AM [facility] Methemoglobin 0.5 0.0 - 2.0 % 10/19/2017 5:00 AM [facility] FI O2 Arterial 60.0 % 10/19/2017 5:00 AM [facility] Blood, arterial ARTERIAL BLOOD SPECIMEN / Unknown Arterial Puncture / Unknown 10/19/2017 4:36 AM CDT 10/19/2017 4:56 AM CDT Elver Askew MD LAB - BLOOD GAS ES ORDERABLES [address] [phone] * (ABNORMAL) GLUCOSE - POINT OF CARE (10/19/2017 4:30 AM CDT) Glucose WB/POC 184(H) 70 - 115 mg/dL 10/19/2017 4:44 AM CDT [facility] Specimen Type Arterial/C apillary 10/19/2017 4:44 AM CDT [facility] Blood BLOOD SPECIMEN / Unknown 10/19/2017 4:30 AM CDT 10/19/2017 4:44 AM CDT Narrative [facility] - 10/19/2017 4:44 AM CDT Senior Accounting Analyst: SOY ??CODEY Elver Askew MD LAB - POINT OF CARE ORDERABLES [address] [phone] * (ABNORMAL) TRANSFERRIN (10/19/2017 4:25 AM CDT) Pathologist [facility] Transferrin <19(L) 174 - 382 mg/dL 10/19/2017 5:37 AM CDT [facility] Transferrin Saturation % 100(H) 16 - 50 % 10/19/2017 5:37 AM CDT [facility] Blood BLOOD SPECIMEN / Unknown Venipuncture / Unknown 10/19/2017 4:25 AM CDT 10/19/2017 5:21 AM CDT Elver Askew MD LAB - [place] [address], [facility] [phone] * (ABNORMAL) FERRITIN (10/19/2017 4:25 AM CDT) Ferritin 1,954(H) 13 - 204 ng/mL 10/19/2017 6:27 AM CDT [facility] Comment: Result obtained by dilution. Blood BLOOD SPECIMEN / Unknown Venipuncture / Unknown 10/19/2017 4:25 AM CDT 10/19/2017 5:21 AM CDT Elver Askew MD LAB - CHEMISTRY ORDERABLES [address] [phone] * (ABNORMAL) IRON BLOOD (10/19/2017 4:25 AM CDT) Iron 33(L) 40 - 150 mcg/dL 10/19/2017 5:36 AM CDT [facility] Blood BLOOD SPECIMEN / Unknown Venipuncture / Unknown 10/19/2017 4:25 AM CDT 10/19/2017 5:21 AM CDT Elver Askew MD LAB - CHEMISTRY ORDERABLES Performing Organization Address [facility]/ZIP Co de Phone Number [address] [phone] * HAPTOGLOBIN (10/19/2017 4:25 AM CDT) Haptoglobin 86 14 - 258 mg/dL 10/19/2017 5:39 AM CDT [facility] Blood BLOOD SPECIMEN / Unknown Venipuncture / Unknown 10/19/2017 4:25 AM CDT 10/19/2017 5:21 AM CDT Elver Askew MD LAB - CHEMISTRY ORDERABLES Performing Organization Address [facility]/ZIP Co de Phone Number [address] [phone] * MARILEE BLOOD SCREEN W/REFLEX TITER (10/19/2017 4:25 AM CDT) MARILEE Negative 10/20/2017 5:11 PM CDT [facility] ([facility]) Comment: ? Negative ?? <1:80 ? Borderline ??1:80 ? Positive ?? >1:80 Blood BLOOD SPECIMEN / Unknown Lab Venipuncture / Unknown 10/19/2017 4:25 AM CDT 10/19/2017 4:25 AM CDT Narrative [facility] ([facility]) - 10/20/2017 5:11 PM CDT Performed at: ??01 - [facility] [address] [place], [place] ??[id number] Director Of Advertising Sales: Dimitrios Abad PhD, Phone: ??[phone] Oliver Biwsas MD LAB - CHEMISTRY SHIRLEY GARCIA Performing Organization Address City/[facility] Co de Phone Number [facility] ([facility]) [address] [place] [address] * (ABNORMAL) VITAMIN B12 (10/19/2017 4:04 AM CDT) Pathologist [facility] Vitamin B12 986(H) 213 - 816 pg/mL 10/19/2017 6:07 AM CDT [facility] Blood BLOOD SPECIMEN / Unknown Venipuncture / Unknown 10/19/2017 4:04 AM CDT 10/19/2017 4:17 AM CDT Elver Askew MD LAB - CHEMISTRY ORDERABLES Performing Organization Address [facility]/ZIP Co de Phone Number [facility] [address] [place] [address] * FOLATE (10/19/2017 4:04 AM CDT) Pathologist [facility] Folate 9.5 7.0 - 31.4 ng/mL 10/19/2017 6:07 AM T [facility] Blood BLOOD SPECIMEN / Unknown Venipuncture / Unknown 10/19/2017 4:04 AM CDT 10/19/2017 4:17 AM CDT Elver Askew MD LAB - CHEMISTRY ORDERABLES Performing Organization Address [facility]/ZIP Co de Phone Number [address] [phone] * (ABNORMAL) CALCIUM IONIZED WHOLE BLOOD (10/19/2017 4:04 AM CDT) Ionized Calcium Whole Blood 1.12 mmol/L 10/19/2017 4:22 AM T [facility] Adjusted Ionized Calcium 1.13(L) 1.19 - 1.34 mmol/L 10/19/2017 4:22 AM [facility] pH Whole Blood 7.41 7.35 - 7.45 10/19/2017 4:22 AM T [facility] Blood BLOOD SPECIMEN / Unknown Venipuncture / Unknown 10/19/2017 4:04 AM CDT 10/19/2017 4:20 AM CDT Elver Askew MD LAB - CHEMISTRY ORDERABLES Performing Organization Address City/[facility] Co de Phone Number [address] [phone] * (ABNORMAL) PTT [facility] (10/19/2017 4:04 AM CDT) APTT 54.4(H) 23.0 - 38.4 Seconds 10/19/2017 4:36 AM T [facility] Comment: Suggested therapeutic range for full dose I.V. heparin therapy for venous thromboembolism is 66.0-91.0 seconds. Blood BLOOD SPECIMEN / Unknown Venipuncture / Unknown 10/19/2017 4:04 AM CDT 10/19/2017 4:20 AM CDT Elver Askew MD LAB - COAGULATI ON ORDERABLES Performing Organization Address [facility]/ZIP Co de Phone Number [address] [phone] * (ABNORMAL) PT-INR [facility] (10/19/2017 4:04 AM CDT) PT 24.9(H) 12.1 - 14.8 Seconds 10/19/2017 4:35 AM CDT [facility] INR 2.3 See Comment 10/19/2017 4:35 AM [facility] Comment: Suggested therapeutic range for low-intensity coumadin therapy for venous thromboembolism prophylaxis is an INR of 2.0-3.0. ??For high risk patients (Mitral Valve Prosthesis, Atrial Fibrillation, history of TIA/stroke), suggested prophylactic therapeutic range is an INR of 2.5-3.5. Blood BLOOD SPECIMEN / Unknown Venipuncture / Unknown 10/19/2017 4:04 AM CDT 10/19/2017 4:20 AM CDT Elver Askew MD LAB - COAGULATI ON ORDERABLES Performing Organization Address [facility] Co de Phone Number [address] [phone] * (ABNORMAL) CBC W/O DIFFERENTIAL (10/19/2017 4:04 AM CDT) WBC 11.5(H) 3.5 - 10.5 10? 3 /uL 10/19/2017 4:32 AM [facility] RBC 1.98(L) 3.90 - 5.00 10? 6 /uL 10/19/2017 4:32 AM [facility] Comment:All CBC parameters h ave been checked. Hemoglobin 6.1(L) 12.0 - 15.5 g/dL 10/19/2017 4:32 AM [facility] Hematocrit 17.1(LL) 35.0 - 45.0 % 10/19/2017 4:32 AM [facility] Comment:Critical value(s) ny ve been verified and called to and read back by Bibi Jurado RN at 0429 on 10/19/2017. MCV 86.4 81.0 - 97.0 fL 10/19/2017 4:32 AM [facility] MCH 30.8 28.0 - 34.0 pg 10/19/2017 4:32 AM [facility] MCHC 35.7 32.0 - 36.0 g/dL 10/19/2017 4:32 AM [facility] Platelet Count 54(L) 150 - 400 10? 3 /uL 10/19/2017 4:32 AM [facility] RDW-SD 44.5 36.0 - 50.0 fL 10/19/2017 4:32 AM [facility] RDW-CV 14.1 11.2 - 14.8 % 10/19/2017 4:32 AM [facility] MPV 10.2 9.3 - 12.8 fL 10/19/2017 4:32 AM [facility] nRBC Absolute 0.03(H) 0 10? 3 /uL 10/19/2017 4:32 AM [facility] nRBC Auto 0.2(H) 0 /100 WBC 10/19/2017 4:32 AM [facility] Blood BLOOD SPECIMEN / Unknown Venipuncture / Unknown 10/19/2017 4:04 AM CDT 10/19/2017 4:20 AM CDT Elver Askew MD LAB - HEMATOLOG Y ORDERABLES Performing Organization Address [facility]/State/[facility] Co de Phone Number [address] [phone] * (ABNORMAL) COMPREHENSIVE METABOLIC PANEL (10/19/2017 4:04 AM T) BUN 14 7 - 26 mg/dL 10/19/2017 4:50 AM [facility] Creatinine 1.4(H) 0.6 - 1.2 mg/dL 10/19/2017 4:50 AM [facility] Sodium 131(L) 136 - 145 mmol/L 10/19/2017 4:50 AM [facility] Potassium 3.7 3.5 - 4.5 mmol/L 10/19/2017 4:50 AM [facility] Chloride 97(L) 98 - 107 mmol/L 10/19/2017 4:50 AM [facility] CO2 14(L) 22 - 29 mmol/L 10/19/2017 4:50 AM [facility] Glucose 186(H) 70 - 115 mg/dL 10/19/2017 4:50 AM [facility] Calcium 9.7 8.4 - 10.2 mg/dL 10/19/2017 4:50 AM [facility] Protein Total 5.9(L) 6.0 - 8.3 g/dL 10/19/2017 4:50 AM [facility] Albumin 5.5(H) 3.4 - 5.0 g/dL 10/19/2017 4:50 AM [facility] Bilirubin Total 1.4(H) 0.2 - 1.2 mg/dL 10/19/2017 4:50 AM [facility] Alkaline Phosphatase 271(H) 40 - 150 Units/L 10/19/2017 4:50 AM [facility] ALT 9 0 - 55 Units/L 10/19/2017 4:50 AM [facility] AST 29 5 - 34 Units/L 10/19/2017 4:50 AM [facility] Anion Gap 24(H) 8 - 18 10/19/2017 4:50 AM [facility] BUN/Creatinine Ratio 10 7 - 23 10/19/2017 4:50 AM [facility] Osmolality Calculated 277 270 - 300 mOsm/kg 10/19/2017 4:50 AM [facility] Albumin/Globulin Ratio >10.0(H) 1.1 - 2.3 10/19/2017 4:50 AM [facility] eGFR 39(L) >60 mL/min/1. 73 m2 10/19/2017 4:50 AM [facility] Blood BLOOD SPECIMEN / Unknown Venipuncture / Unknown 10/19/2017 4:04 AM CDT 10/19/2017 4:17 AM T Elver Askew MD LAB - CHEMISTRY ORDERABLES [address] [phone] * MITOCHONDRIAL ANTIBODY SCREEN (10/19/2017 4:04 AM CDT) [facility] Mitochondrial M2 Antibody 2.1 0.0 - 20.0 Units 10/20/2017 11:45 AM CDT [facility] Comment: Mitochondrial M2 Antibody Numeric Result Interpretation: ?<20.1 Units: ??Negative ?20.1 - 24.9 Units: ??Equivocal ?>24.9 Units: ??Positive ? Blood BLOOD SPECIMEN / Unknown Venipuncture / Unknown 10/19/2017 4:04 AM CDT 10/19/2017 4:17 AM CDT Reuben Tellez MD LAB - CHEMISTRY ORDE RABCHANDRA [address] [phone] * MAGNESIUM BLOOD (10/19/2017 4:04 AM CDT) [facility] Magnesium 2.2 1.6 - 2.6 mg/dL 10/19/2017 4:49 AM CDT [facility] Blood BLOOD SPECIMEN / Unknown Venipuncture / Unknown 10/19/2017 4:04 AM CDT 10/19/2017 4:17 AM CDT Elver Askew MD LAB - CHEMISTRY ORDERABLES [address] [phone] * (ABNORMAL) GLUCOSE - POINT OF CARE (10/18/2017 11:44 PM CDT) [facility] Glucose WB/POC 181(H) 70 - 115 mg/dL 10/19/2017 12:09 AM CDT [facility] Specimen Type Arterial/C apillary 10/19/2017 12:09 AM CDT [facility] Blood BLOOD SPECIMEN / Unknown 10/18/2017 11:44 PM CDT 10/19/2017 12:09 AM CDT Narrative [facility] - 10/19/2017 12:09 AM CDT Senior Accounting Analyst: Unique ??Saira Elver Askew MD LAB - POINT OF CARE ORDERABLES Performing Organization Address [facility]/State/ZIP Co de Phone Number [address] [phone] * (ABNORMAL) GLUCOSE - POINT OF CARE (10/18/2017 9:47 PM CDT) Glucose WB/POC 162(H) 70 - 115 mg/dL 10/18/2017 10:05 PM T [facility] Specimen Type Arterial/C apillary 10/18/2017 10:05 PM T [facility] Blood BLOOD SPECIMEN / Unknown 10/18/2017 9:47 PM CDT 10/18/2017 10:04 PM CDT Narrative [facility] - 10/18/2017 10:05 PM CDT Senior Accounting Analyst: Unique ??Saira Elver Askew MD LAB - POINT OF CARE ORDERABLES Performing Organization Address [facility] Co de Phone Number [address] [phone] * (ABNORMAL) CALCIUM IONIZED WHOLE BLOOD (10/18/2017 9:37 PM CDT) Ionized Calcium Whole Blood 1.12 mmol/L 10/18/2017 9:45 PM [facility] Adjusted Ionized Calcium 1.11(L) 1.19 - 1.34 mmol/L 10/18/2017 9:45 PM CDT [facility] pH Whole Blood 7.39 7.35 - 7.45 10/18/2017 9:45 PM T [facility] Blood BLOOD SPECIMEN / Unknown Venipuncture / Unknown 10/18/2017 9:37 PM CDT 10/18/2017 9:42 PM CDT Elver Askew MD LAB - CHEMISTRY ORDERABLES [facility] [address] [phone] * (ABNORMAL) RENAL FUNCTION PANEL (10/18/2017 9:37 PM T) BUN 17 7 - 26 mg/dL 10/18/2017 10:02 PM [facility] Creatinine 1.7(H) 0.6 - 1.2 mg/dL 10/18/2017 10:02 PM [facility] Sodium 128(L) 136 - 145 mmol/L 10/18/2017 10:02 PM [facility] Potassium 3.8 3.5 - 4.5 mmol/L 10/18/2017 10:02 PM [facility] Chloride 97(L) 98 - 107 mmol/L 10/18/2017 10:02 PM [facility] CO2 14(L) 22 - 29 mmol/L 10/18/2017 10:02 PM [facility] Glucose 162(H) 70 - 115 mg/dL 10/18/2017 10:02 PM [facility] Albumin 4.9 3.4 - 5.0 g/dL 10/18/2017 10:02 PM [facility] Calcium 9.6 8.4 - 10.2 mg/dL 10/18/2017 10:02 PM [facility] Phosphorus 2.0(L) 2.3 - 4.7 mg/dL 10/18/2017 10:02 PM [facility] Anion Gap 21(H) 8 - 18 10/18/2017 10:02 PM [facility] BUN/Creatinine Ratio 10 7 - 10/18/2017 10:02 PM [facility] Osmolality Calculated 271 270 - 300 mOsm/kg 10/18/2017 10:02 PM [facility] eGFR 31(L) >60 mL/min/1.7 3 m2 10/18/2017 10:02 PM [facility] Blood BLOOD SPECIMEN / Unknown Venipuncture / Unknown 10/18/2017 9:37 PM CDT 10/18/2017 9:42 PM CDT [facility] Tellez MD LAB - CHEMISTRY SHIRLEY GARCIA [address] [phone] * (ABNORMAL) GLUCOSE - POINT OF CARE (10/18/2017 4:16 PM CDT) Glucose WB/POC 158(H) 70 - 115 mg/dL 10/18/2017 4:33 PM CDT [facility] Specimen Type Venous 10/18/2017 4:33 PM CDT [facility] Blood BLOOD SPECIMEN / Unknown 10/18/2017 4:16 PM CDT 10/18/2017 4:32 PM CDT Narrative [facility] - 10/18/2017 4:33 PM CDT Senior Accounting Analyst: LUDIN ??TATA Elver Askew MD LAB - POINT OF CARE ORDERABLES Performing Organization Address [facility]/ZIP Co de Phone Number [address] [phone] * CRYOGLOBULIN QUALITATIVE (10/18/2017 2:34 PM CDT) Cryoglobulin Qualitative Negative Negative 10/21/2017 12:43 PM CDT [facility] Blood BLOOD SPECIMEN / Unknown Lab Venipuncture / Unknown 10/18/2017 2:34 PM CDT 10/21/2017 12:36 PM CDT Elver Askew MD LAB - CHEMISTRY ORDERABLES Performing Organization Address City/[facility]/[place] [address], [facility] [phone] * (ABNORMAL) NEUTROPHIL CYTOPLASMIC ANTIBODY (10/18/2017 2:34 PM CDT) Cytoplasmic (C-ANCA) <1:20 Neg:<1:20 titer 10/19/2017 2:13 PM CDT [facility] ([facility]) p-ANCA Titer <1:20 Neg:<1:20 titer 10/19/2017 2:13 PM CDT [facility] ([facility]) Comment: The presence of positive fluorescence exhibiting P-ANCA or C-ANCA patterns alone is not specific for the diagnosis of Nurys's Granulomatosis (WG) or microscopic polyangiitis. Decisions about treatment should not be based solely on ANCA IFA results. ??The International ANCA Group Consensus recommends follow up testing of positive sera with both NC-3 and MPO-ANCA enzyme immunoassays. As many as 5% serum samples are positive only by EIA. Ref. AM J Clin Pathol 1999;111:507-513. Atypical p-ANCA Titer 1:20(H) Neg:<1:20 titer 10/19/2017 2:13 PM CDT [facility] ([facility]) Comment: The atypical pANCA pattern has been observed in a significant percentage of patients with ulcerative colitis, primary sclerosing cholangitis and autoimmune hepatitis. Blood BLOOD SPECIMEN / Unknown Venipuncture / Unknown 10/18/2017 2:34 PM CDT 10/18/2017 2:52 PM CDT Narrative [facility] ([facility]) - 10/19/2017 2:13 PM CDT Performed at: ??01 - [facility] [address], [place] ??[id number] Director Of Advertising Sales: Dimitrios Abad PhD, Phone: ??[phone] Elver Askew MD LAB - CHEMISTRY ORDERABLES [facility] ([facility]) [address] [place] [address], [facility] * (ABNORMAL) KAPPA/LAMBDA LITE CHAIN FREE PANEL (10/18/2017 2:34 PM CDT) Pathologist [facility] Free [place] Light Chains 51.7(H) 3.3 - 19.4 mg/L 10/19/2017 3:18 PM CDT [facility] ([facility]) Free Lambda Light Chains 21.8 5.7 - 26.3 mg/L 10/19/2017 3:18 PM CDT [facility] ([facility]) [place]/Lambda Ratio 2.37(H) 0.26 - 1.65 10/19/2017 3:18 PM CDT [facility] ([facility]) Blood BLOOD SPECIMEN / Unknown Venipuncture / Unknown 10/18/2017 2:34 PM CDT 10/18/2017 2:53 PM CDT Narrative [facility] ([facility]) - 10/19/2017 3:18 PM CDT Performed at: ??01 - [facility] ??[id number] Director Of Advertising Sales: Dimitrios Abad PhD, Phone: ??[phone] Elver Askew MD LAB - CHEMISTRY ORDERABLES Performing Organization Address [facility] de Phone Number [facility] ([facility]) [address] [place] [phone], [place] * COMPLEMENT TOTAL (10/18/2017 2:34 PM CDT) [facility] Complement Total CH50 <13 >41 U/mL 10/19/2017 2:13 PM CDT [facility] ([facility]) Comment:Please note refere nce interval change Blood BLOOD SPECIMEN / Unknown Venipuncture / Unknown 10/18/2017 2:34 PM CDT 10/18/2017 2:52 PM CDT Narrative [facility] ([facility]) - 10/19/2017 2:13 PM CDT Performed at: ??01 - [facility] ??[id number] Director Of Advertising Sales: Dimitrios Abad PhD, Phone: ??[phone] Elver Askew MD LAB - CHEMISTRY ORDERABLES Performing Organization Address [facility] Co de Phone Number [facility] ([facility]) [address] [place] [address] * IMMUNOFIXATION (10/18/2017 1:54 PM CDT) Immunofixation Serum See Comment Normal Pattern 10/22/2017 12:25 PM CDT [facility] Comment: Serum immunofixation electrophoresis shows polyclonal [...] LAB - CHEMISTRY ORDERABLES Performing Organization Address City/[facility]/ZIP Co de Phone Number [address] [phone] * MPO/NC 3 AUTOANTIBODIES PANEL (10/18/2017 1:54 PM CDT) Anti-myeloperox idase (MPO) Antibody <9.0 0.0 - 9.0 U/mL 10/20/2017 8:38 AM CDT [facility] ([facility]) Anti-proteinase 3 (NC-3) Abs <3.5 0.0 - 3.5 U/mL 10/20/2017 8:38 AM CDT [facility] ([facility]) Blood BLOOD SPECIMEN / Unknown Venipuncture / Unknown 10/18/2017 1:54 PM CDT 10/18/2017 2:02 PM CDT Narrative [facility] ([facility]) - 10/20/2017 8:38 AM CDT Performed at: ??01 - [facility] [address] ??[id number] Director Of Advertising Sales: Isra Milton MD, Phone: ??[phone] Elver Askew MD LAB - CHEMISTRY ORDERABLES [facility] ([facility]) [address] [place] [address], [facility] * NEUTROPHIL CYTOPLASMIC ANTIBODY IGG (10/18/2017 1:54 PM CDT) ANCA IgG <1:20 <1:20 10/19/2017 3:04 PM CDT [facility] ([facility]) Comment: The ANCA IFA is <1:20; [...] collagen vascular disease or arthritis. Performed by [employer], [address] [place] [address] [email or web address], Poli Lamas MD, Lab. Director Blood BLOOD SPECIMEN / Unknown Venipuncture / Unknown 10/18/2017 1:54 PM CDT 10/18/2017 2:02 PM CDT Elver Askew MD LAB - SEROLOGY ORDERABLES Performing Organization Address City/State/[facility] Co de Phone Number [facility] ([facility]) [address] [place] [address], [facility] * (ABNORMAL) PROTEIN ELECTROPHORESIS BLOOD (10/18/2017 1:54 PM CDT) Pathologist [facility] Interpretation Serum PE See Comment Normal Pattern 10/22/2017 12:22 PM CDT [facility] Comment: Serum protein electrophoresis shows characteristic [...] - 8.3 g/dL 10/22/2017 12:22 PM CDT [facility] Albumin 3.9 3.3 - 5.6 g/dL 10/22/2017 12:22 PM CDT [facility] Alpha-1 Globulins 0.1 0.1 - 0.3 g/dL 10/22/2017 12:22 PM CDT [facility] Alpha-2 Globulins 0.2(L) 0.5 - 1.0 g/dL 10/22/2017 12:22 PM CDT [facility] Beta Globulins 0.1(L) 0.6 - 1.1 g/dL 10/22/2017 12:22 PM CDT [facility] Gamma Globulins 0.1(L) 0.6 - 1.6 g/dL 10/22/2017 12:22 PM CDT [facility] Blood BLOOD SPECIMEN / Unknown Venipuncture / Unknown 10/18/2017 1:54 PM CDT 10/18/2017 2:01 PM CDT Elver Askew MD LAB - CHEMISTRY ORDERABLES Performing Organization Address City/[facility]/ZIP Co de Phone Number [address] [phone] * ASO TITER (10/18/2017 1:54 PM CDT) ASO Titer 29.5 0.0 - 200.0 IU/mL 10/19/2017 8:47 AM CDT [facility] ([facility]) Blood BLOOD SPECIMEN / Unknown Venipuncture / Unknown 10/18/2017 1:54 PM CDT 10/18/2017 2:02 PM CDT Narrative [facility] ([facility]) - 10/19/2017 8:47 AM CDT Performed at: ??01 - [facility] [place] [address], [place] ??[id number] Director Of Advertising Sales: Dimitrios Abad PhD, Phone: ??[phone] Elver Askew MD LAB - CHEMISTRY ORDERABLES [facility] ([facility]) [address] [place] [address], [facility] * HIV-1 HIV-2 ANTIGEN/ANTIBODY (10/18/2017 1:54 PM CDT) HIV Antigen/Antibod y 1 & 2 Non-reacti ve Non-react diana 10/18/2017 3:08 PM CDT [facility] Comment: Neither HIV-1 p24 Antigen nor HIV-1/HIV-2 Antibodies are detected. ? Blood BLOOD SPECIMEN / Unknown Venipuncture / Unknown 10/18/2017 1:54 PM CDT 10/18/2017 2:01 PM CDT Elver Askew MD LAB - HEMATOLOG Y ORDERABLES Performing Organization Address [facility] Co de Phone Number [address] [phone] * HEPATITIS SCREEN ACUTE (10/18/2017 1:54 PM CDT) Pathologist [facility] Hepatitis A Virus Antibody IgM Non-react diana Non-reac tive 10/18/2017 3:08 PM CDT [facility] Hepatitis B Virus Surface Antigen Non-react diana Non-reac tive 10/18/2017 3:08 PM CDT [facility] Hepatitis B Core Virus Antibody IgM Non-react diana Non-reac tive 10/18/2017 3:08 PM CDT [facility] Hepatitis C Antibody Non-react diana Non-reac tive 10/18/2017 3:08 PM CDT [facility] Comment: Hepatitis C Antibody screen indicates [...] LAB - CHEMISTRY ORDERABLES Performing Organization Address City/[facility]/ZIP Co de Phone Number [address] [phone] * SS-B (SJOGRENS'S) ANTIBODY (10/18/2017 1:54 PM CDT) SS-B LA Antibody 2.6 0.0 - 19.9 Units 10/20/2017 11:49 AM CDT [facility] Comment: KOLTON Antibody Numeric Result Interpretation: ?<20.0 Units: ??Negative ?20.0 - 39.0 Units: ??Weakly Positive ?>39.0 Units: ??Positive ? Blood BLOOD SPECIMEN / Unknown Venipuncture / Unknown 10/18/2017 1:54 PM CDT 10/18/2017 2:01 PM CDT Elver Askew MD LAB - CHEMISTRY ORDERABLES Performing Organization Address [facility] Co de Phone Number [address] [phone] * SS-A (SJOGREN'S) ANTIBODY (10/18/2017 1:54 PM CDT) Pathologist [facility] SS-A (Ro) Antibody 1.7 0.0 - 19.9 Units 10/20/2017 11:49 AM CDT [facility] Comment: KOLTON Antibody Numeric Result Interpretation: ?<20.0 Units: ??Negative ?20.0 - 39.0 Units: ??Weakly Positive ?>39.0 Units: ??Positive ? Blood BLOOD SPECIMEN / Unknown Venipuncture / Unknown 10/18/2017 1:54 PM CDT 10/18/2017 2:01 PM CDT Elver Askew MD LAB - CHEMISTRY ORDERABLES Performing Organization Address [facility] Co de Phone Number [address] [address], [place] [phone] * HAHN (SM) ANTIBODY KOLTON (10/18/2017 1:54 PM CDT) Pathologist [facility] Hahn Antibody 3.5 0.0 - 19.9 Units 10/20/2017 11:48 AM CDT [facility] Comment: KOLTON Antibody Numeric Result Interpretation: ?<20.0 Units: ??Negative ?20.0 - 39.0 Units: ??Weakly Positive ?>39.0 Units: ??Positive ? Blood BLOOD SPECIMEN / Unknown Venipuncture / Unknown 10/18/2017 1:54 PM CDT 10/18/2017 2:01 PM CDT Elver Askew MD LAB - CHEMISTRY ORDERABLES Performing Organization Address [facility] de Phone Number [address] [phone] * DNA (DS) ANTIBODY RFLEX IFA (10/18/2017 1:54 PM CDT) Pathologist [facility] dsDNA Antibody 3 0 - 29 IU/mL 10/20/2017 11:47 AM CDT [facility] Comment: dsDNA Antibody Numeric Result Interpretation: ? 0 - 29 IU/mL: ??Negative ?30 - 75 IU/mL: ??Borderline ?>75 IU/mL: ??Positive ? Blood BLOOD SPECIMEN / Unknown Venipuncture / Unknown 10/18/2017 1:54 PM CDT 10/18/2017 2:01 PM CDT Elver Askew MD LAB - SEROLOGY ORDERABLES Performing Organization Address [facility] de Phone Number [address] [phone] * (ABNORMAL) COMPLEMENT C4 (10/18/2017 1:53 PM CDT) Complement C4 6(L) 15 - 57 mg/dL 10/18/2017 2:45 PM CDT [facility] Blood BLOOD SPECIMEN / Unknown Venipuncture / Unknown 10/18/2017 1:53 PM CDT 10/18/2017 2:05 PM CDT Elver Askew MD LAB - SEROLOGY ORDERABLES Performing Organization Address [facility]/ZIP Co de Phone Number [address] [phone] * (ABNORMAL) COMPLEMENT C3 (10/18/2017 1:53 PM CDT) Pathologist [facility] Complement C3 25(L) 82 - 193 mg/dL 10/18/2017 2:45 PM CDT [facility] Blood BLOOD SPECIMEN / Unknown Venipuncture / Unknown 10/18/2017 1:53 PM CDT 10/18/2017 2:05 PM CDT Elver Askew MD LAB - CHEMISTRY ORDERABLES Performing Organization Address [facility]/ZIP Co de Phone Number [address] [phone] * GLOMERULAR BASE MEMBRANE ANTIBODY IGG (10/18/2017 1:53 PM CDT) Pathologist [facility] Glomerular Basement Membrane Antibody Quantitative 2 0 - 20 units 10/21/2017 10:18 AM CDT [facility] ([facility]) Comment: ? Negative ? 0 - 20 ? Weak Positive ? 21 - 30 ? Moderate to Strong Positive ?? >30 Blood BLOOD SPECIMEN / Unknown Venipuncture / Unknown 10/18/2017 1:53 PM CDT 10/18/2017 2:01 PM CDT Narrative [facility] ([facility]) - 10/21/2017 10:18 AM CDT Performed at: ??01 - [facility] [address] ??[id number] Director Of Advertising Sales: Isra Milton MD, Phone: ??[phone] Elver Askew MD LAB - CHEMISTRY ORDERABLES [facility] ([facility]) [address] [place] [address], [facility] * XR CHEST 1VW PORTABLE (10/18/2017 12:29 PM CDT) Anatomical Region Laterality Modality Chest Radiographic Indira ging 10/18/2017 1:25 PM CDT Impressions 10/19/2017 2:02 PM CDT FINDINGS/IMPRESSION: Comparison made to study from 10/18/2017 at 5:14 AM. The endotracheal tube terminates in the distal thoracic trachea. An enteric tube can be followed to the stomach. A left internal jugular post central venous catheter tip projects over the right atrium. A right upper extremity peripherally inserted central venous catheter tip projects over the superior vena cava. Lung volumes are low resulting in vascular crowding. Bilateral diffuse interstitial and airspace opacities, right greater than left representing pulmonary edema and/or infection are unchanged from the prior exam. Trace right pleural effusion is suspected. There is no left pleural effusion or pneumothorax. The cardiomediastinal silhouette is normal. Dictated by Frances Varma MD (vice president global digital marketing). This report was approved ??by Frances Varma ?? on 10/19/2017 11:38 AM . I, Dr. EULALIA MCKEE M.D. have personally reviewed and interpreted this examination/study. This report was electronically signed by EULALIA MCKEE M.D. ??on 10/19/2017 2:02 PM . Narrative 10/19/2017 2:02 PM CDT EXAMINATION: XR CHEST 1VW PORTABLE HISTORY: A41.9: Septic shock R65.21: Septic shock Procedure Note Eulalia Mckee MD - 10/19/2017 EXAMINATION: XR CHEST 1VW PORTABLE HISTORY: A41.9: Septic shock R65.21: Septic shock FINDINGS/IMPRESSION: Comparison made to study from 10/18/2017 at 5:14 AM. The endotracheal tube terminates in the distal thoracic trachea. An enteric tube can be followed to the stomach. A left internal jugularpost central venous catheter tip projects over the right atrium. A rightupper extremity peripherally inserted central venous catheter tip projectsover the superior vena cava. Lung volumes are low resulting in vascular crowding. Bilateral diffuse interstitial and airspace opacities, right greater than leftrepresenting pulmonary edema and/or infection are unchanged from the prior exam.Trace right pleural effusion is suspected. There is no left pleural effusionor pneumothorax. The cardiomediastinal silhouette is normal. Dictated by Frances Varma MD (vice president global digital marketing). This report was approved by Frances Varma on 10/19/2017 11:38 AM . I, Dr. EULALIA MCKEE M.D. have personally reviewed and interpreted this examination/study. This report was electronically signed by EULALIA MCKEE M.D. on 10/19/2017 2:02 PM . Singh Odell MD DIAGNOSTIC IMAGING O RDERABLES * HEPARIN PLATELET INDUCED ANTIBODY (10/18/2017 11:40 AM CDT) Interpretation Heparin Platelet Antibody Negative Negative 10/19/2017 12:49 PM [facility] Comment: Heparin induced thrombocytopenia (HIT) is unlikely in the presence of a negative HIT antibody test result by BELEN and low pretest probability for type II HIT (scoring system of [place]). It is suggested to verify positive HIT BELEN antibody test results by HIT Antibody Serotonin Release Assay. HIT BELEN Patient OD 0.103 <0.400 OD 10/19/2017 12:49 PM T [facility] Blood BLOOD SPECIMEN / Unknown Venipuncture / Unknown 10/18/2017 11:40 AM CDT 10/18/2017 11:47 AM CDT Reuben Tellez MD LAB - CHEMISTRY SHIRLEY GARCIA [facility] Organization Address City/State/ZIP Co de Phone Number [address] [phone] * (ABNORMAL) HYDROXYBUTYRATE BETA (10/18/2017 11:40 AM CDT) [facility] Beta-Hydroxybu tyrate 0.42(H) 0.02 - 0.27 mmol/L 10/18/2017 12:25 PM [facility] Blood BLOOD SPECIMEN / Unknown Venipuncture / Unknown 10/18/2017 11:40 AM CDT 10/18/2017 11:47 AM CDT Reuben Tellez MD LAB - CHEMISTRY SHIRLEY GARCIA [address] [phone] * (ABNORMAL) BASIC METABOLIC PANEL (CALCIUM TOTAL) (10/18/2017 11:40 AM CDT) [facility] BUN 23 7 - 26 mg/dL 10/18/2017 12:25 PM [facility] Creatinine 2.3(H) 0.6 - 1.2 mg/dL 10/18/2017 12:25 PM [facility] Sodium 124(L) 136 - 145 mmol/L 10/18/2017 12:25 PM [facility] Potassium 3.5 3.5 - 4.5 mmol/L 10/18/2017 12:25 PM [facility] Chloride 94(L) 98 - 107 mmol/L 10/18/2017 12:25 PM [facility] CO2 15(L) 22 - 29 mmol/L 10/18/2017 12:25 PM [facility] Glucose 184(H) 70 - 115 mg/dL 10/18/2017 12:25 PM [facility] Calcium 9.7 8.4 - 10.2 mg/dL 10/18/2017 12:25 PM [facility] Anion Gap 19(H) 8 - 18 10/18/2017 12:25 PM [facility] BUN/Creatinine Ratio 10 7 - 23 10/18/2017 12:25 PM CDT [facility] Osmolality Calculated 266(L) 270 - 300 mOsm/kg 10/18/2017 12:25 PM CDT [facility] eGFR 22(L) >60 mL/min/1.7 3 m2 10/18/2017 12:25 PM CDT [facility] Blood BLOOD SPECIMEN / Unknown Venipuncture / Unknown 10/18/2017 11:40 AM CDT 10/18/2017 11:47 AM CDT Elver Askew MD LAB - CHEMISTRY ORDERABLES Performing Organization Address [facility]/ZIP Co de Phone Number [address] [phone] * LACTIC ACID BLOOD (10/18/2017 11:40 AM CDT) Lactic Acid-Stat 1.8 0.5 - 2.2 mmol/L 10/18/2017 12:06 PM CDT [facility] Blood BLOOD SPECIMEN / Unknown Venipuncture / Unknown 10/18/2017 11:40 AM CDT 10/18/2017 11:47 AM CDT Elver Askew MD LAB - CHEMISTRY ORDERABLES Performing Organization Address [facility] Co de Phone Number [address] [phone] * US ABDOMEN LIMITED (10/18/2017 11:02 AM CDT) Anatomical Region Laterality Modality Abdomen Ultrasound 10/18/2017 11:0 7 AM CDT Impressions 10/18/2017 1:54 PM CDT IMPRESSION: 1. Hepatic cirrhosis. Limited evaluation of the right hepatic lobe. No distinct hepatic mass or lesion is identified. 2. Status post cholecystectomy. 3. Large volume abdominal ascites. Dictated by Manav Pan MD (vice president global digital marketing). This report was approved ??by Manav Pan ?? on 10/18/2017 11:57 AM . I, Dr. ASHLYN STILL M.D. have personally reviewed and interpreted this examination/study. This report was electronically signed by ASHLYN STILL M.D. ??on 10/18/2017 1:54 PM . Narrative 10/18/2017 1:54 PM CDT EXAMINATION: Limited right upper quadrant abdominal sonogram HISTORY: 56-year-old female with septic shock. COMPARISON: Comparisons are made to prior CT examinations performed 07/09/2017 and 10/15/2017. FINDINGS: Evaluation of the right hepatic lobe is limited secondary to difficulties with patient positioning. There is large volume abdominal ascites. The liver is normal in echotexture and echogenicity. The patient's previously identified right hepatic lobe hemangioma is not seen on today's exam. No discrete hepatic mass or intrahepatic biliary dilatation is seen. The bladder is surgically absent. The common bile duct is nondilated, measuring 4 mm. The right kidney measures 10.8 cm. There is increased echogenicity and thinning of the renal cortex, may indicate chronic kidney disease. Views of the right kidney reveal no evidence of nephrolithiasis or hydronephrosis. The spleen measures 9 cm in length. The pancreas is obscured by overlying bowel gas. Procedure Note Ashlyn Still MD - 10/18/2017 EXAMINATION: Limited right upper quadrant abdominal sonogram HISTORY: 56-year-old female with septic shock. COMPARISON: Comparisons are made to prior CT examinations performed 07/09/2017 and 10/15/2017. FINDINGS: Evaluation of the right hepatic lobe is limited secondary todifficulties with patient positioning. There is large volume abdominal ascites. The liver is normal in echotexture and echogenicity. The patient'spreviously identified right hepatic lobe hemangioma is not seen on today's exam. No discrete hepatic mass or intrahepatic biliary dilatation is seen. The bladder is surgically absent. The common bile duct is nondilated, measuring 4 mm. The right kidney measures 10.8 cm. There is increased echogenicity and thinning of the renal cortex, may indicate chronic kidney disease. Views of the right kidney reveal no evidence of nephrolithiasis or hydronephrosis. The spleen measures 9 cm in length. The pancreas is obscured by overlying bowel gas. IMPRESSION: 1. Hepatic cirrhosis. Limited evaluation of the right hepatic lobe. No distinct hepatic mass or lesion is identified. 2. Status post cholecystectomy. 3. Large volume abdominal ascites. Dictated by Manav Pan MD (vice president global digital marketing). This report was approved by Manav Pan on 10/18/2017 11:57 AM . Adriel, Dr. ASHLYN STILL M.D. have personally reviewed and interpretedthis examination/study. This report was electronically signed by ASHLYN STILL M.D. on10/18/2017 1:54 PM . Elver Askew MD US ORDERABLES * (ABNORMAL) GLUCOSE - POINT OF CARE (10/18/2017 8:12 AM CDT) [facility] Glucose WB/POC 196(H) 70 - 115 mg/dL 10/18/2017 8:29 AM CDT [facility] Specimen Type Arterial/C apillary 10/18/2017 8:29 AM CDT [facility] Blood BLOOD SPECIMEN / Unknown 10/18/2017 8:12 AM CDT 10/18/2017 8:28 AM CDT Narrative [facility] - 10/18/2017 8:29 AM CDT Senior Accounting Analyst: ROSA ??AERON Elver Askew MD LAB - POINT OF CARE ORDERABLES [address] [phone] * XR CHEST 1VW PORTABLE (10/18/2017 5:39 AM CDT) Anatomical Region Laterality Modality Chest Radiographic Indira ging 10/18/2017 8:29 AM CDT Impressions 10/18/2017 3:30 PM CDT IMPRESSION: Increased right diffuse interstitial and airspace opacity representing pneumonia or pulmonary edema. Superimposed right basilar atelectasis. Small bilateral pleural effusions. Dictated by Frances Varma MD (vice president global digital marketing). This report was approved ??by Frances Varma ?? on 10/18/2017 11:[address] EULALIA Morel M.D. have personally reviewed and interpreted this examination/study. This report was electronically signed by EULALIA MCKEE M.D. ??on 10/18/2017 3:30 PM . Narrative 10/18/2017 3:30 PM CDT EXAMINATION: XR CHEST 1VW PORTABLE HISTORY: A41.9: Septic shock R65.21: Septic shock FINDINGS: Comparison made to study from 10/15/2017 The endotracheal tube terminates in the mid thoracic trachea. A right upper extremity peripherally inserted central venous catheter tip overlies the right atrium. An enteric tube terminates in the gastric antrum. Lung volumes are markedly reduced. Diffuse interstitial and airspace opacities more prominent in the right lung likely represent pneumonia and/or pulmonary edema are increased on the right. Dense right basilar opacities represent atelectasis/airspace disease. Small bilateral pleural effusions are present. There is no pneumothorax. The cardiomediastinal silhouette is normal. Procedure Note Eulalia Mckee MD - 10/18/2017 EXAMINATION: XR CHEST 1VW PORTABLE HISTORY: A41.9: Septic shock R65.21: Septic shock FINDINGS: Comparison made to study from 10/15/2017 The endotracheal tube terminates in the mid thoracic trachea. A right upper extremity peripherally inserted central venous catheter tipoverlies the right atrium. An enteric tube terminates in the gastric antrum. Lung volumes are markedly reduced. Diffuse interstitial and airspace opacities more prominent in the right lung likely represent pneumonia and/or pulmonary edema are increased on the right. Dense right basilar opacities represent atelectasis/airspace disease. Small bilateralpleural effusions are present. There is no pneumothorax. The cardiomediastinal silhouette is normal. IMPRESSION: Increased right diffuse interstitial and airspace opacity representing pneumonia or pulmonary edema. Superimposed right basilar atelectasis. Small bilateral pleural effusions. Dictated by Frances Varma MD (vice president global digital marketing). This report was approved by Frances Varma on 10/18/2017 11:49 AM . I, Dr. EULALIA MCKEE M.D. have personally reviewed and interpreted this examination/study. This report was electronically signed by EULALIA MCKEE M.D. on 10/18/2017 3:30 PM . Elver Askew MD DIAGNOSTIC IMAG ING ORDERABLES * (ABNORMAL) PTT [facility] (10/18/2017 4:34 AM CDT) APTT 41.6(H) 23.0 - 38.4 Seconds 10/18/2017 4:59 AM T [facility] Comment: Suggested therapeutic range for full dose I.V. heparin therapy for venous thromboembolism is 66.0-91.0 seconds. Blood BLOOD SPECIMEN / Unknown Venipuncture / Unknown 10/18/2017 4:34 AM CDT 10/18/2017 4:39 AM CDT Elver Askew MD LAB - COAGULATI ON ORDERABLES Performing Organization Address [facility] Co de Phone Number [address] [phone] * (ABNORMAL) PT-INR [facility] (10/18/2017 4:34 AM CDT) PT 19.5(H) 12.1 - 14.8 Seconds 10/18/2017 4:57 AM [facility] INR 1.7 See Comment 10/18/2017 4:57 AM [facility] Comment: Suggested therapeutic range for low-intensity coumadin therapy for venous thromboembolism prophylaxis is an INR of 2.0-3.0. ??For high risk patients (Mitral Valve Prosthesis, Atrial Fibrillation, history of TIA/stroke), suggested prophylactic therapeutic range is an INR of 2.5-3.5. Blood BLOOD SPECIMEN / Unknown Venipuncture / Unknown 10/18/2017 4:34 AM CDT 10/18/2017 4:39 AM CDT Elver Askew MD LAB - COAGULATI ON ORDERABLES Performing Organization Address City/[facility] Co de Phone Number [address] [phone] * PHOSPHORUS BLOOD (10/18/2017 4:34 AM CDT) Phosphorus 2.5 2.3 - 4.7 mg/dL 10/18/2017 4:57 AM T [facility] Blood BLOOD SPECIMEN / Unknown Venipuncture / Unknown 10/18/2017 4:34 AM CDT 10/18/2017 4:38 AM CDT Elver Askew MD LAB - CHEMISTRY ORDERABLES [facility] [address] [phone] * (ABNORMAL) CBC W/O DIFFERENTIAL (10/18/2017 4:34 AM CDT) WBC 13.7(H) 3.5 - 10.5 10? 3 /uL 10/18/2017 5:02 AM [facility] RBC 2.99(L) 3.90 - 5.00 10? 6 /uL 10/18/2017 5:02 AM [facility] Hemoglobin 9.4(L) 12.0 - 15.5 g/dL 10/18/2017 5:02 AM [facility] Hematocrit 25.5(L) 35.0 - 45.0 % 10/18/2017 5:02 AM [facility] MCV 85.3 81.0 - 97.0 fL 10/18/2017 5:02 AM [facility] MCH 31.4 28.0 - 34.0 pg 10/18/2017 5:02 AM [facility] MCHC 36.9(H) 32.0 - 36.0 g/dL 10/18/2017 5:02 AM [facility] Platelet Count 87(L) 150 - 400 10? 3 /uL 10/18/2017 5:02 AM [facility] RDW-SD 43.2 36.0 - 50.0 fL 10/18/2017 5:02 AM [facility] RDW-CV 13.8 11.2 - 14.8 % 10/18/2017 5:02 AM [facility] MPV 9.7 9.3 - 12.8 fL 10/18/2017 5:02 AM [facility] Blood BLOOD SPECIMEN / Unknown Venipuncture / Unknown 10/18/2017 4:34 AM CDT 10/18/2017 4:38 AM CDT Elevr Askew MD LAB - HEMATOLOG Y ORDERABLES [facility] [address] [phone] * (ABNORMAL) COMPREHENSIVE METABOLIC PANEL (10/18/2017 4:[address] [facility]) BUN 23 7 - 26 mg/dL 10/18/2017 5:01 AM [facility] Creatinine 2.2(H) 0.6 - 1.2 mg/dL 10/18/2017 5:01 AM [facility] Sodium 124(L) 136 - 145 mmol/L 10/18/2017 5:01 AM [facility] Potassium 3.7 3.5 - 4.5 mmol/L 10/18/2017 5:01 AM [facility] Chloride 96(L) 98 - 107 mmol/L 10/18/2017 5:01 AM [facility] CO2 12(L) 22 - 29 mmol/L 10/18/2017 5:01 AM [facility] Glucose 195(H) 70 - 115 mg/dL 10/18/2017 5:01 AM [facility] Calcium 9.1 8.4 - 10.2 mg/dL 10/18/2017 5:01 AM [facility] Protein Total 4.6(L) 6.0 - 8.3 g/dL 10/18/2017 5:01 AM [facility] Albumin 3.5 3.4 - 5.0 g/dL 10/18/2017 5:01 AM [facility] Bilirubin Total 1.2 0.2 - 1.2 mg/dL 10/18/2017 5:01 AM [facility] Alkaline Phosphatase 461(H) 40 - 150 Units/L 10/18/2017 5:01 AM [facility] ALT 15 0 - 55 Units/L 10/18/2017 5:01 AM [facility] AST 41(H) 5 - 34 Units/L 10/18/2017 5:01 AM [facility] Anion Gap 20(H) 8 - 18 10/18/2017 5:01 AM [facility] BUN/Creatinine Ratio 10 7 - 23 10/18/2017 5:01 AM T [facility] Osmolality Calculated 267(L) 270 - 300 mOsm/kg 10/18/2017 5:01 AM T [facility] Albumin/Globulin Ratio 3.2(H) 1.1 - 2.3 10/18/2017 5:01 AM T [facility] eGFR 23(L) >60 mL/min/1.7 3 m2 10/18/2017 5:01 AM T [facility] Blood BLOOD SPECIMEN / Unknown Venipuncture / Unknown 10/18/2017 4:34 AM CDT 10/18/2017 4:38 AM CDT Elver Askew MD LAB - CHEMISTRY ORDERABLES [address] [phone] * MAGNESIUM BLOOD (10/18/2017 4:34 AM CDT) Magnesium 1.8 1.6 - 2.6 mg/dL 10/18/2017 4:57 AM T [facility] Blood BLOOD SPECIMEN / Unknown Venipuncture / Unknown 10/18/2017 4:34 AM CDT 10/18/2017 4:38 AM CDT Elver Askew MD LAB - CHEMISTRY ORDERABLES [address] [phone] * (ABNORMAL) GLUCOSE - POINT OF CARE (10/18/2017 4:27 AM CDT) Glucose WB/POC 158(H) 70 - 115 mg/dL 10/18/2017 8:17 AM T [facility] Specimen Type Arterial/C apillary 10/18/2017 8:17 AM T [facility] Blood BLOOD SPECIMEN / Unknown 10/18/2017 4:27 AM CDT 10/18/2017 8:17 AM CDT [facility] - 10/18/2017 8:17 AM CDT Senior Accounting Analyst: NICOLAS ??OMEED Elver Askew MD LAB - POINT OF CARE ORDERABLES [address] [phone] * (ABNORMAL) GLUCOSE - POINT OF CARE (10/17/2017 11:46 PM CDT) Pathologist [facility] [place] Glucose WB/POC 223(H) 70 - 115 mg/dL 10/18/2017 12:48 AM T [facility] Specimen Type Arterial/C apillary 10/18/2017 12:48 AM T [facility] Blood BLOOD SPECIMEN / Unknown 10/17/2017 11:46 PM CDT 10/18/2017 12:48 AM CDT Narrative [facility] - 10/18/2017 12:48 AM CDT Senior Accounting Analyst: NICOLAS ??OMEED Elver Askew MD LAB - POINT OF CARE ORDERABLES [address] [phone] * (ABNORMAL) BLOOD GASES ART (10/17/2017 10:08 PM CDT) pH Arterial 7.41 7.35 - 7.45 10/17/2017 10:14 PM [facility] pCO2 Arterial 25(L) 35 - 45 mmHg 10/17/2017 10:14 PM [facility] pO2 Arterial 63(L) 77 - 101 mmHg 10/17/2017 10:14 PM [facility] HCO3 Arterial 15.6(L) 22.0 - 26.0 mmol/L 10/17/2017 10:14 PM [facility] TCO2 Arterial 16.4(L) 25.0 - 29.0 mmol/L 10/17/2017 10:14 PM [facility] Base Excess Arterial -7.9(L) -2.0 - 2.0 mmol/L 10/17/2017 10:14 PM [facility] Hemoglobin Arterial 9.0(L) 12.0 - 15.5 g/dL 10/17/2017 10:14 PM [facility] Oxyhemoglobin Arterial 91.0(L) 95.0 - 100.0 % 10/17/2017 10:14 PM [facility] Carboxyhemoglobin 0.2 0.0 - 3.0 % 10/17/2017 10:14 PM [facility] Methemoglobin 0.2 0.0 - 2.0 % 10/17/2017 10:14 PM [facility] FI O2 Arterial 30.0 % 10/17/2017 10:14 PM [facility] Blood, arterial ARTERIAL BLOOD SPECIMEN / Unknown Arterial Puncture / Unknown 10/17/2017 10:08 PM CDT 10/17/2017 10:11 PM T Jean Real MD LAB - BLOOD GASES OR DERABLES [address] [phone] * (ABNORMAL) BASIC METABOLIC PANEL (CALCIUM TOTAL) (10/17/2017 8:[address] [facility]) BUN 22 7 - 26 mg/dL 10/17/2017 9:23 PM [facility] Creatinine 2.1(H) 0.6 - 1.2 mg/dL 10/17/2017 9:23 PM [facility] Sodium 123(L) 136 - 145 mmol/L 10/17/2017 9:23 PM [facility] Potassium 3.5 3.5 - 4.5 mmol/L 10/17/2017 9:23 PM [facility] Chloride 95(L) 98 - 107 mmol/L 10/17/2017 9:23 PM [facility] CO2 14(L) 22 - 29 mmol/L 10/17/2017 9:23 PM [facility] Glucose 307(H) 70 - 115 mg/dL 10/17/2017 9:23 PM [facility] Calcium 9.0 8.4 - 10.2 mg/dL 10/17/2017 9:23 PM T [facility] Anion Gap 18 8 - 18 10/17/2017 9:23 PM T [facility] BUN/Creatinine Ratio 10 7 - 23 10/17/2017 9:23 PM T [facility] Osmolality Calculated 271 270 - 300 mOsm/kg 10/17/2017 9:23 PM T [facility] eGFR 24(L) >60 mL/min/1.7 3 m2 10/17/2017 9:23 PM T [facility] Blood BLOOD SPECIMEN / Unknown Venipuncture / Unknown 10/17/2017 8:56 PM CDT 10/17/2017 9:02 PM CDT Elver Askew MD LAB - CHEMISTRY ORDERABLES [address] [phone] * (ABNORMAL) GLUCOSE - POINT OF CARE (10/17/2017 8:52 PM CDT) Glucose WB/POC 288(H) 70 - 115 mg/dL 10/17/2017 9:06 PM T [facility] Specimen Type Arterial/C apillary 10/17/2017 9:06 PM T [facility] Blood BLOOD SPECIMEN / Unknown 10/17/2017 8:52 PM CDT 10/17/2017 9:06 PM CDT Narrative [facility] - 10/17/2017 9:06 PM CDT Senior Accounting Analyst: NICOLAS ??OMEED Elver Askew MD LAB - POINT OF CARE ORDERABLES [address] [phone] * PHOSPHORUS BLOOD (10/17/2017 4:54 PM CDT) Phosphorus 3.1 2.3 - 4.7 mg/dL 10/17/2017 5:15 PM T [facility] Blood BLOOD SPECIMEN / Unknown Venipuncture / Unknown 10/17/2017 4:54 PM CDT 10/17/2017 4:58 PM CDT Elver Askew MD LAB - CHEMISTRY ORDERABLES [address] [phone] * (ABNORMAL) GGT (10/17/2017 4:54 PM CDT) Pathologist [facility] [place] GGT 387(H) 9 - 64 Units/L 10/17/2017 5:19 PM CDT [facility] Blood BLOOD SPECIMEN / Unknown Venipuncture / Unknown 10/17/2017 4:54 PM CDT 10/17/2017 4:58 PM CDT Elver Askew MD LAB - CHEMISTRY ORDERABLES Performing Organization Address [facility]/ZIP Co de Phone Number [address] [phone] * VANCOMYCIN LEVEL RANDOM (10/17/2017 4:54 PM CDT) Pathologist [facility] [place] Vancomycin Random 34.2 Therapeutic Ranges not established for random specimens mcg/mL 10/17/2017 5:15 PM CDT [facility] Blood BLOOD SPECIMEN / Unknown Venipuncture / Unknown 10/17/2017 4:54 PM CDT 10/17/2017 4:58 PM CDT Elver Askew MD LAB - CHEMISTRY ORDERABLES Performing Organization Address [facility]/ZIP Co de Phone Number [address] [phone] * (ABNORMAL) BLOOD GASES ART (10/17/2017 11:45 AM CDT) pH Arterial 7.34(L) 7.35 - 7.45 10/17/2017 11:52 AM CDT [facility] pCO2 Arterial 21(L) 35 - 45 mmHg 10/17/2017 11:52 AM [facility] pO2 Arterial 82 77 - 101 mmHg 10/17/2017 11:52 AM [facility] HCO3 Arterial 11.4(L) 22.0 - 26.0 mmol/L 10/17/2017 11:52 AM [facility] TCO2 Arterial 12.0(L) 25.0 - 29.0 mmol/L 10/17/2017 11:52 AM [facility] Base Excess Arterial -12.6(L) -2.0 - 2.0 mmol/L 10/17/2017 11:52 AM [facility] Hemoglobin Arterial 10.3(L) 12.0 - 15.5 g/dL 10/17/2017 11:52 AM [facility] Oxyhemoglobin Arterial 94.5(L) 95.0 - 100.0 % 10/17/2017 11:52 AM [facility] Carboxyhemoglobin 0.2 0.0 - 3.0 % 10/17/2017 11:52 AM [facility] Methemoglobin 0.3 0.0 - 2.0 % 10/17/2017 11:52 AM [facility] FI O2 Arterial 30.0 % 10/17/2017 11:52 AM [facility] Blood, arterial ARTERIAL BLOOD SPECIMEN / Unknown Arterial Puncture / Unknown 10/17/2017 11:45 AM CDT 10/17/2017 11:49 AM CDT Elver Askew MD LAB - BLOOD GAS ES ORDERABLES Performing Organization Address City/State/[facility] Co de Phone Number [address] [phone] * (ABNORMAL) BASIC METABOLIC PANEL (CALCIUM TOTAL) (10/17/2017 11:45 AM CDT) BUN 22 7 - 26 mg/dL 10/17/2017 12:11 PM [facility] Creatinine 2.0(H) 0.6 - 1.2 mg/dL 10/17/2017 12:11 PM [facility] Sodium 122(L) 136 - 145 mmol/L 10/17/2017 12:11 PM [facility] Potassium 3.9 3.5 - 4.5 mmol/L 10/17/2017 12:11 PM [facility] Chloride 97(L) 98 - 107 mmol/L 10/17/2017 12:11 PM [facility] CO2 11(L) 22 - 29 mmol/L 10/17/2017 12:11 PM [facility] Glucose 234(H) 70 - 115 mg/dL 10/17/2017 12:11 PM [facility] Calcium 9.0 8.4 - 10.2 mg/dL 10/17/2017 12:11 PM [facility] Anion Gap 18 8 - 18 10/17/2017 12:11 PM [facility] BUN/Creatinine Ratio 11 7 - 23 10/17/2017 12:11 PM [facility] Osmolality Calculated 265(L) 270 - 300 mOsm/kg 10/17/2017 12:11 PM [facility] eGFR 26(L) >60 mL/min/1.7 3 m2 10/17/2017 12:11 PM [facility] Blood BLOOD SPECIMEN / Unknown Venipuncture / Unknown 10/17/2017 11:45 AM CDT 10/17/2017 11:50 AM CDT Elver Askew MD LAB - CHEMISTRY ORDERABLES Performing Organization Address City/State/[facility] Co de Phone Number [address] [phone] * (ABNORMAL) GLUCOSE - POINT OF CARE (10/17/2017 9:38 AM CDT) Glucose WB/POC 192(H) 70 - 115 mg/dL 10/17/2017 9:53 AM T [facility] Specimen Type Venous 10/17/2017 9:53 AM [facility] Blood BLOOD SPECIMEN / Unknown 10/17/2017 9:38 AM CDT 10/17/2017 9:53 AM CDT Narrative [facility] - 10/17/2017 9:53 AM CDT Senior Accounting Analyst: KENNING ??REGI Elver Askew MD LAB - POINT OF CARE ORDERABLES [facility] [address] [phone] * (ABNORMAL) CBC W/O DIFFERENTIAL (10/17/2017 4:19 AM CDT) WBC 13.6(H) 3.5 - 10.5 10? 3 /uL 10/17/2017 4:32 AM [facility] RBC 3.22(L) 3.90 - 5.00 10? 6 /uL 10/17/2017 4:32 AM [facility] Hemoglobin 10.0(L) 12.0 - 15.5 g/dL 10/17/2017 4:32 AM [facility] Hematocrit 28.1(L) 35.0 - 45.0 % 10/17/2017 4:32 AM [facility] MCV 87.3 81.0 - 97.0 fL 10/17/2017 4:32 AM [facility] MCH 31.1 28.0 - 34.0 pg 10/17/2017 4:32 AM [facility] MCHC 35.6 32.0 - 36.0 g/dL 10/17/2017 4:32 AM [facility] Platelet Count 122(L) 150 - 400 10? 3 /uL 10/17/2017 4:32 AM [facility] RDW-SD 43.8 36.0 - 50.0 fL 10/17/2017 4:32 AM [facility] RDW-CV 13.8 11.2 - 14.8 % 10/17/2017 4:32 AM [facility] MPV 9.3 9.3 - 12.8 fL 10/17/2017 4:32 AM [facility] Blood BLOOD SPECIMEN / Unknown Venipuncture / Unknown 10/17/2017 4:19 AM CDT 10/17/2017 4:27 AM CDT Elver Askew MD LAB - HEMATOLOG Y ORDERABLES [address] [phone] * (ABNORMAL) COMPREHENSIVE METABOLIC PANEL (10/17/2017 4:[address] [facility]) BUN 20 7 - 26 mg/dL 10/17/2017 5:19 AM [facility] Creatinine 2.0(H) 0.6 - 1.2 mg/dL 10/17/2017 5:19 AM [facility] Sodium 123(L) 136 - 145 mmol/L 10/17/2017 5:19 AM [facility] Potassium 4.0 3.5 - 4.5 mmol/L 10/17/2017 5:19 AM [facility] Chloride 100 98 - 107 mmol/L 10/17/2017 5:19 AM [facility] CO2 10(L) 22 - 29 mmol/L 10/17/2017 5:19 AM [facility] Glucose 137(H) 70 - 115 mg/dL 10/17/2017 5:19 AM [facility] Calcium 9.1 8.4 - 10.2 mg/dL 10/17/2017 5:19 AM [facility] Protein Total 4.2(L) 6.0 - 8.3 g/dL 10/17/2017 5:19 AM [facility] Albumin 3.0(L) 3.4 - 5.0 g/dL 10/17/2017 5:19 AM [facility] Bilirubin Total 1.9(H) 0.2 - 1.2 mg/dL 10/17/2017 5:19 AM [facility] Alkaline Phosphatase 471(H) 40 - 150 Units/L 10/17/2017 5:19 AM [facility] ALT 16 0 - 55 Units/L 10/17/2017 5:19 AM [facility] AST 53(H) 5 - 34 Units/L 10/17/2017 5:19 AM [facility] Anion Gap 17 8 - 18 10/17/2017 5:19 AM [facility] BUN/Creatinine Ratio 10 7 - 23 10/17/2017 5:19 AM [facility] Osmolality Calculated 261(L) 270 - 300 mOsm/kg 10/17/2017 5:19 AM CDT [facility] Albumin/Globulin Ratio 2.5(H) 1.1 - 2.3 10/17/2017 5:19 AM CDT [facility] eGFR 26(L) >60 mL/min/1.7 3 m2 10/17/2017 5:19 AM CDT [facility] Blood BLOOD SPECIMEN / Unknown Venipuncture / Unknown 10/17/2017 4:19 AM CDT 10/17/2017 4:27 AM CDT Elver Askew MD LAB - CHEMISTRY ORDERABLES [address] [phone] * MAGNESIUM BLOOD (10/17/2017 4:19 AM CDT) Magnesium 1.6 1.6 - 2.6 mg/dL 10/17/2017 5:19 AM CDT [facility] Blood BLOOD SPECIMEN / Unknown Venipuncture / Unknown 10/17/2017 4:19 AM CDT 10/17/2017 4:27 AM CDT Elver Askew MD LAB - CHEMISTRY ORDERABLES [address] [phone] * (ABNORMAL) GLUCOSE - POINT OF CARE (10/17/2017 4:16 AM CDT) Glucose WB/POC 147(H) 70 - 115 mg/dL 10/17/2017 7:51 AM CDT [facility] Specimen Type Arterial/C apillary 10/17/2017 7:51 AM CDT [facility] Blood BLOOD SPECIMEN / Unknown 10/17/2017 4:16 AM CDT 10/17/2017 7:51 AM CDT Narrative [facility] - 10/17/2017 7:51 AM CDT Senior Accounting Analyst: NICOLAS ??OMEED Elver Askew MD LAB - POINT OF CARE ORDERABLES Performing Organization Address [facility]/State/ZIP Co de Phone Number [address] [phone] * GLUCOSE - POINT OF CARE (10/16/2017 11:54 PM CDT) Glucose WB/POC 101 70 - 115 mg/dL 10/17/2017 7:51 AM [facility] Specimen Type Arterial/C apillary 10/17/2017 7:51 AM [facility] Blood BLOOD SPECIMEN / Unknown 10/16/2017 11:54 PM CDT 10/17/2017 7:51 AM CDT [facility] - 10/17/2017 7:51 AM CDT Senior Accounting Analyst: NICOLAS ??OMEED Elver Askew MD LAB - POINT OF CARE ORDERABLES Performing Organization Address [facility]/ZIP Co de Phone Number [address] [phone] * (ABNORMAL) BASIC METABOLIC PANEL (CALCIUM TOTAL) (10/16/2017 8:51 PM CDT) Pathologist [facility] [place] BUN 19 7 - 26 mg/dL 10/16/2017 9:24 PM [facility] Creatinine 1.8(H) 0.6 - 1.2 mg/dL 10/16/2017 9:24 PM [facility] Sodium 122(L) 136 - 145 mmol/L 10/16/2017 9:24 PM [facility] Potassium 4.3 3.5 - 4.5 mmol/L 10/16/2017 9:24 PM [facility] Chloride 99 98 - 107 mmol/L 10/16/2017 9:24 PM [facility] CO2 11(L) 22 - 29 mmol/L 10/16/2017 9:24 PM [facility] Glucose 125(H) 70 - 115 mg/dL 10/16/2017 9:24 PM [facility] Calcium 8.9 8.4 - 10.2 mg/dL 10/16/2017 9:24 PM CDT [facility] Anion Gap 16 8 - 18 10/16/2017 9:24 PM CDT [facility] BUN/Creatinine Ratio 11 7 - 23 10/16/2017 9:24 PM CDT [facility] Osmolality Calculated 258(L) 270 - 300 mOsm/kg 10/16/2017 9:24 PM CDT [facility] eGFR 29(L) >60 mL/min/1.7 3 m2 10/16/2017 9:24 PM CDT [facility] Blood BLOOD SPECIMEN / Unknown Venipuncture / Unknown 10/16/2017 8:51 PM CDT 10/16/2017 8:51 PM CDT Elver Askew MD LAB - CHEMISTRY ORDERABLES [address] [phone] * (ABNORMAL) GLUCOSE - POINT OF CARE (10/16/2017 7:54 PM CDT) Pathologist [facility] [place] Glucose WB/POC 132(H) 70 - 115 mg/dL 10/16/2017 8:07 PM CDT [facility] Specimen Type Arterial/C apillary 10/16/2017 8:07 PM CDT [facility] Blood BLOOD SPECIMEN / Unknown 10/16/2017 7:54 PM CDT 10/16/2017 8:07 PM CDT Narrative [facility] - 10/16/2017 8:07 PM CDT Senior Accounting Analyst: BLANCA ??LIDYA Elver Askew MD LAB - POINT OF CARE ORDERABLES [address] [phone] * EKG 12-LEAD (10/16/2017 5:57 PM CDT) Ventricular Rate 75 BPM [facility] MUSE Atrial Rate 75 BPM [facility] P-R Interval 104 ms [facility] QRS Duration ms 36 ms [facility] MUSE Q-T Interval ms 368 ms [facility] QTC Calculation (Bezet) 410 ms [facility] MUSE Calculated P [place] 70 degrees [facility] MUSE Calculated R [place] 0 degrees [facility] MUSE Calculated T [place] -35 degrees [facility] M[facility] Interpretation EKG Sinus rhythm with short NC with Fusion complexes~ST & T wave abnormality, consider lateral ischemia~Non- specific intra-ventric ular conduction delay~Indeter minate axis~Pulmonar y disease pattern~Abnor mal ECG~When compared with ECG of 16-OCT-2017 10:33,~Low voltage no longer present~Confi rmed by Itz AGUILAR STEVEN ([id number]), associate entertainment editor Sarkis Odonnell ([id number]) on 10/22/2017 12:08:27 PM [facility] 10/16/2017 5:57 PM CDT 10/22/2017 12:08 PM CDT Mireya Palma DO ECG ORDERABLES Performing Organization Address City/[facility]/ZIP Co de Phone Number [facility] * (ABNORMAL) GLUCOSE - POINT OF CARE (10/16/2017 5:41 PM CDT) Glucose WB/POC 214(H) 70 - 115 mg/dL 10/16/2017 5:54 PM CDT [facility] Specimen Type Arterial/C apillary 10/16/2017 5:54 PM CDT [facility] Blood BLOOD SPECIMEN / Unknown 10/16/2017 5:41 PM CDT 10/16/2017 5:54 PM CDT Narrative [facility] - 10/16/2017 5:54 PM CDT Senior Accounting Analyst: SHANELLE ??REGI Elver Askew MD LAB - POINT OF CARE ORDERABLES [address] [phone] * (ABNORMAL) BASIC METABOLIC PANEL (CALCIUM TOTAL) (10/16/2017 12:54 PM CDT) BUN 19 7 - 26 mg/dL 10/16/2017 1:21 PM CDT [facility] Creatinine 1.7(H) 0.6 - 1.2 mg/dL 10/16/2017 1:21 PM [facility] Sodium 122(L) 136 - 145 mmol/L 10/16/2017 1:21 PM [facility] Potassium 4.3 3.5 - 4.5 mmol/L 10/16/2017 1:21 PM [facility] Chloride 97(L) 98 - 107 mmol/L 10/16/2017 1:21 PM [facility] CO2 13(L) 22 - 29 mmol/L 10/16/2017 1:21 PM [facility] Glucose 197(H) 70 - 115 mg/dL 10/16/2017 1:21 PM [facility] Calcium 8.9 8.4 - 10.2 mg/dL 10/16/2017 1:21 PM [facility] Anion Gap 16 8 - 18 10/16/2017 1:21 PM [facility] BUN/Creatinine Ratio 11 7 - 23 10/16/2017 1:21 PM [facility] Osmolality Calculated 262(L) 270 - 300 mOsm/kg 10/16/2017 1:21 PM [facility] eGFR 31(L) >60 mL/min/1.7 3 m2 10/16/2017 1:21 PM [facility] Blood BLOOD SPECIMEN / Unknown Venipuncture / Unknown 10/16/2017 12:54 PM CDT 10/16/2017 12:56 PM T Elver Askew MD LAB - CHEMISTRY ORDERABLES [facility] [address] [place] [address] * EKG 12-LEAD (10/16/2017 10:33 AM T) Ventricular Rate 103 BPM [facility] Atrial Rate 103 BPM [facility] P-R Interval 120 ms [facility] Q-T Interval ms 290 ms [facility] QTC Calculation (Bezet) 379 ms [facility] M[facility] Calculated P [place] 69 degrees [facility] Calculated R [place] 0 degrees [facility] Calculated T [place] -30 degrees [facility] Interpretation EKG Atrial fibrillation with rapid ventricular response~Low voltage QRS~Right bundle branch block~ST & T wave ??abnormality in lateral leads~Left atrial enlargement~Ind eterminate axis~Pulmonary disease pattern~Abnorma l ECG~When compared with ECG of 15-OCT-2017 08:40,~ST & T wave inversion~Vent rate has decreased by 33 bpm~Confirmed by Itz AGUILAR STEVEN ([id number]), associate entertainment editor Sarkis Odonnell ([id number]) on 10/22/2017 9:49:23 AM [facility] 10/16/2017 10:3 3 AM CDT 10/22/2017 9:49 AM CDT Jaiden Cleveland MD ECG ORDERABLES Performing Organization Address City/[facility]/ZIP Co de Phone Number [facility] * (ABNORMAL) GLUCOSE - POINT OF CARE (10/16/2017 9:29 AM CDT) Glucose WB/POC 228(H) 70 - 115 mg/dL 10/16/2017 9:42 AM CDT [facility] Specimen Type Venous 10/16/2017 9:42 AM CDT [facility] Blood BLOOD SPECIMEN / Unknown 10/16/2017 9:29 AM CDT 10/16/2017 9:42 AM CDT Narrative [facility] - 10/16/2017 9:42 AM CDT Senior Accounting Analyst: KENNING ??REGI Elver Askew MD LAB - POINT OF CARE ORDERABLES [address] [phone] * (ABNORMAL) GLUCOSE - POINT OF CARE (10/16/2017 9:24 AM CDT) Glucose WB/POC 142(H) 70 - 115 mg/dL 10/16/2017 9:39 AM CDT [facility] Specimen Type Arterial/C apillary 10/16/2017 9:39 AM CDT [facility] Blood BLOOD SPECIMEN / Unknown 10/16/2017 9:24 AM CDT 10/16/2017 9:39 AM CDT Narrative [facility] - 10/16/2017 9:39 AM CDT Senior Accounting Analyst: SHANELLE ??REGI Elver Askew MD LAB - POINT OF CARE ORDERABLES Performing Organization Address City/[facility] Co de Phone Number [facility] [address] [place] [address], [facility] [phone] * CULTURE SPUTUM+GRAM STAIN (10/16/2017 6:17 AM CDT) Culture Moderate normal oropharyngeal annia DEJUAN 10/18/2017 8:04 AM CDT [facility] Gram Stain <10 per low power field Squamous epithelial cells 10/18/2017 8:04 AM CDT [facility] MICROBIOLOGY Gram Stain >= 25 per low power field Polymorphonuclear cells 10/18/2017 8:04 AM CDT [facility] MICROBIOLOGY Gram Stain Moderate Yeast budding with pseudohyphae 10/18/2017 8:04 AM CDT [facility] MICROBIOLOGY Gram Stain Rare Gram-positive cocci 10/18/2017 8:04 AM CDT [facility] MICROBIOLOGY Microbiology SPUTUM / Unknown Collection / Unknown 10/16/2017 6:17 AM CDT 10/16/2017 6:19 AM CDT Elver Askew MD LAB - MICROBIOL OGY ORDERABLES Performing Organization Address City/[facility]/ZIP Co de Phone Number [facility]CROBIOLOG[facility] [address] [phone] * (ABNORMAL) CBC W/O DIFFERENTIAL (10/16/2017 3:51 AM CDT) WBC 18.0(H) 3.5 - 10.5 10? 3 /uL 10/16/2017 4:10 AM CDT [facility] RBC 3.45(L) 3.90 - 5.00 10? 6 /uL 10/16/2017 4:10 AM CDT [facility] Hemoglobin 10.9(L) 12.0 - 15.5 g/dL 10/16/2017 4:10 AM [facility] Comment:Results are confirme d by repeat analysis. Hematocrit 30.0(L) 35.0 - 45.0 % 10/16/2017 4:10 AM [facility] MCV 87.0 81.0 - 97.0 fL 10/16/2017 4:10 AM [facility] MCH 31.6 28.0 - 34.0 pg 10/16/2017 4:10 AM [facility] MCHC 36.3(H) 32.0 - 36.0 g/dL 10/16/2017 4:10 AM [facility] Platelet Count 185 150 - 400 10? 3 /uL 10/16/2017 4:10 AM [facility] RDW-SD 43.5 36.0 - 50.0 fL 10/16/2017 4:10 AM [facility] RDW-CV 13.6 11.2 - 14.8 % 10/16/2017 4:10 AM [facility] MPV 9.1(L) 9.3 - 12.8 fL 10/16/2017 4:10 AM [facility] nRBC Absolute 0.00 0 10? 3 /uL 10/16/2017 4:10 AM [facility] nRBC Auto 0.0 0 /100 WBC 10/16/2017 4:10 AM [facility] Blood BLOOD SPECIMEN / Unknown Venipuncture / Unknown 10/16/2017 3:51 AM CDT 10/16/2017 3:59 AM CDT Elver Askew MD LAB - HEMATOLOG Y ORDERABLES [address] [phone] * (ABNORMAL) COMPREHENSIVE METABOLIC PANEL (10/16/2017 3:51 AM CDT) BUN 18 7 - 26 mg/dL 10/16/2017 4:45 AM [facility] Creatinine 1.4(H) 0.6 - 1.2 mg/dL 10/16/2017 4:45 AM [facility] Sodium 120(L) 136 - 145 mmol/L 10/16/2017 4:45 AM [facility] Potassium 4.3 3.5 - 4.5 mmol/L 10/16/2017 4:45 AM [facility] Chloride 95(L) 98 - 107 mmol/L 10/16/2017 4:45 AM [facility] CO2 12(L) 22 - 29 mmol/L 10/16/2017 4:45 AM [facility] Glucose 237(H) 70 - 115 mg/dL 10/16/2017 4:45 AM [facility] Calcium 8.5 8.4 - 10.2 mg/dL 10/16/2017 4:45 AM [facility] Protein Total 4.8(L) 6.0 - 8.3 g/dL 10/16/2017 4:45 AM [facility] Albumin 3.5 3.4 - 5.0 g/dL 10/16/2017 4:45 AM [facility] Bilirubin Total 1.8(H) 0.2 - 1.2 mg/dL 10/16/2017 4:45 AM [facility] Alkaline Phosphatase 313(H) 40 - 150 Units/L 10/16/2017 4:45 AM [facility] ALT 15 0 - 55 Units/L 10/16/2017 4:45 AM [facility] AST 59(H) 5 - 34 Units/L 10/16/2017 4:45 AM [facility] Anion Gap 17 8 - 18 10/16/2017 4:45 AM [facility] BUN/Creatinine Ratio 13 7 - 23 10/16/2017 4:45 AM [facility] Osmolality Calculated 260(L) 270 - 300 mOsm/kg 10/16/2017 4:45 AM [facility] Albumin/Globulin Ratio 2.7(H) 1.1 - 2.3 10/16/2017 4:45 AM [facility] eGFR 39(L) >60 mL/min/1.7 3 m2 10/16/2017 4:45 AM [facility] Blood BLOOD SPECIMEN / Unknown Venipuncture / Unknown 10/16/2017 3:51 AM T 10/16/2017 3:59 AM CDT Elver Askew MD LAB - CHEMISTRY ORDERABLES Performing Organization Address City/[facility]/ZIP Co de Phone Number [address] [phone] * MAGNESIUM BLOOD (10/16/2017 3:51 AM CDT) Magnesium 2.0 1.6 - 2.6 mg/dL 10/16/2017 4:43 AM CDT [facility] Blood BLOOD SPECIMEN / Unknown Venipuncture / Unknown 10/16/2017 3:51 AM CDT 10/16/2017 3:59 AM CDT Elver Askew MD LAB - CHEMISTRY ORDERABLES Performing Organization Address [facility]/ZIP Co de Phone Number [address] [phone] * LACTIC ACID BLOOD (10/16/2017 3:51 AM CDT) Lactic Acid-Stat 2.1 0.5 - 2.2 mmol/L 10/16/2017 4:13 AM CDT [facility] Blood BLOOD SPECIMEN / Unknown Venipuncture / Unknown 10/16/2017 3:51 AM CDT 10/16/2017 3:59 AM CDT Elver Askew MD LAB - CHEMISTRY ORDERABLES [address] [phone] * (ABNORMAL) GLUCOSE - POINT OF CARE (10/16/2017 3:49 AM CDT) Glucose WB/POC 139(H) 70 - 115 mg/dL 10/16/2017 4:02 AM CDT [facility] Specimen Type Arterial/C apillary 10/16/2017 4:02 AM CDT [facility] Blood BLOOD SPECIMEN / Unknown 10/16/2017 3:49 AM CDT 10/16/2017 4:02 AM CDT [facility] - 10/16/2017 4:02 AM CDT Senior Accounting Analyst: VI SEE Elver Askew MD LAB - POINT OF CARE ORDERABLES Performing Organization Address City/[facility]/ZIP Co de Phone Number [address] [phone] * (ABNORMAL) GLUCOSE - POINT OF CARE (10/16/2017 3:48 AM CDT) Glucose WB/POC <=20(LL) 70 - 115 mg/dL 10/16/2017 4:02 AM CDT [facility] Specimen Type Venous 10/16/2017 4:02 AM CDT [facility] Blood BLOOD SPECIMEN / Unknown 10/16/2017 3:48 AM CDT 10/16/2017 4:02 AM CDT [facility] - 10/16/2017 4:02 AM CDT Repeat Chief [facility]: VI SEE Elver Askew MD LAB - POINT OF CARE ORDERABLES Performing Organization Address [facility] Co de Phone Number [address] [phone] * (ABNORMAL) GLUCOSE - POINT OF CARE (10/16/2017 12:12 AM CDT) Glucose WB/POC 154(H) 70 - 115 mg/dL 10/16/2017 12:25 AM CDT [facility] Specimen Type Arterial/C apillary 10/16/2017 12:25 AM CDT [facility] Blood BLOOD SPECIMEN / Unknown 10/16/2017 12:12 AM CDT 10/16/2017 12:25 AM CDT [facility] - 10/16/2017 12:25 AM CDT Senior Accounting Analyst: BLANCA ?ANATOLY Elver Askew MD LAB - POINT OF CARE ORDERABLES [facility] [address] [phone] * XR CHEST 1VW (10/15/2017 11:20 PM [...] Kody Zuniga M.D. on 10/16/2017 9:45AM . Dr. Dr. ASHLYN Morel MD have [...] present. Report dictated by Eli Zuniga MD (vice president global digital marketing). This report was approved ??by Kody Zuniga M.D. ?? on 10/16/2017 9:[address] ASHLYN Morel MD have personally reviewed and interpreted this examination/study. This report was electronically signed by Dr. ASHLYN WAHLEY MD ??on 10/16/2017 10:20 AM . Narrative [...] present. Report dictated by Eli Zuniga MD (vice president global digital marketing). This report was approved by Kody Zuniga M.D. on 10/16/2017 9:41AM . I, Dr. Dr. ASHLYN WHALEY MD have personally reviewed and interpretedthis examination/study. This report was electronically signed by Dr. ASHLYN WHALEY MD on10/16/2017 10:20 AM . Jean Real MD DIAGNOSTIC IMAGING O RDERABLES * (ABNORMAL) GLUCOSE - POINT OF CARE (10/15/2017 8:02 PM CDT) Glucose WB/POC 137(H) 70 - 115 mg/dL 10/15/2017 8:15 PM CDT [facility] Specimen Type Arterial/C apillary 10/15/2017 8:15 PM CDT [facility] Blood BLOOD SPECIMEN / Unknown 10/15/2017 8:02 PM CDT 10/15/2017 8:15 PM CDT Narrative [facility] - 10/15/2017 8:15 PM CDT Senior Accounting Analyst: GROENE ??LIDYA Elver Askew MD LAB - POINT OF CARE ORDERABLES [address] [phone] * ECHO W DOPPLER AND COLOR FLOW (10/15/2017 3:59 PM CDT) Anatomical Region Laterality Modality Color Flow Doppl er 10/15/2017 7:43 AM CDT Narrative Procedure Note Caroline Horta MD - 10/15/2017 Elver Askew MD ECHOCARDIOGRAPH Y RADIANT * (ABNORMAL) GLUCOSE - POINT OF CARE (10/15/2017 3:44 PM CDT) Pathologist [facility] Glucose WB/POC 132(H) 70 - 115 mg/dL 10/15/2017 4:16 PM CDT [facility] Specimen Type Arterial/C apillary 10/15/2017 4:16 PM CDT [facility] Blood BLOOD SPECIMEN / Unknown 10/15/2017 3:44 PM CDT 10/15/2017 4:16 PM CDT Narrative [facility] - 10/15/2017 4:16 PM CDT Senior Accounting Analyst: DARLINE ??DOROTHY Elver Askew MD LAB - POINT OF CARE ORDERABLES Performing Organization Address City/[facility]/ZIP Co de Phone Number [address] [phone] * VANCOMYCIN LEVEL RANDOM (10/15/2017 12:12 PM CDT) [facility] Vancomycin Random 17.6 Therapeutic Ranges not established for random specimens mcg/mL 10/15/2017 12:53 PM CDT [facility] Blood BLOOD SPECIMEN / Unknown Venipuncture / Unknown 10/15/2017 12:12 PM CDT 10/15/2017 12:18 PM CDT Singh Odell MD LAB - CHEMISTRY SHIRLEY GARCIA [address] [phone] * SVO2 FOR RECALIBRATION (10/15/2017 12:12 PM CDT) [facility] SVO2 for Recalibration 66.2 66.0 - 77.0 % 10/15/2017 12:21 PM CDT [facility] Blood BLOOD SPECIMEN / Unknown Venipuncture / Unknown 10/15/2017 12:12 PM CDT 10/15/2017 12:18 PM CDT Elver Askew MD LAB - CHEMISTRY ORDERABLES [address] [phone] * (ABNORMAL) GLUCOSE - POINT OF CARE (10/15/2017 11:51 AM CDT) Pathologist [facility] Glucose WB/POC 133(H) 70 - 115 mg/dL 10/15/2017 12:08 PM CDT [facility] Specimen Type Arterial/C apillary 10/15/2017 12:08 PM CDT [facility] Blood BLOOD SPECIMEN / Unknown 10/15/2017 11:51 AM CDT 10/15/2017 12:08 PM CDT Narrative [facility] - 10/15/2017 12:08 PM CDT Senior Accounting Analyst: DARLINE ??LAURAHEL Elver Askew MD LAB - POINT OF CARE ORDERABLES Performing Organization Address [facility]/ZIP Co de Phone Number [address] [phone] * CT ANGIO CHEST PULM EMBOLISM (10/15/2017 [...] a hemangioma. Dictated by Helen Rich MD (vice president global digital marketing). I, Dr. EARLENE JORDAN M.D. have personally [...] vena cava. There is moderate right and [id number] left pleural effusion with bilateral lower lobe [...] vena cava. There is moderate right and [id number] left pleural effusion with bilateral lower lobe [...] a hemangioma. Dictated by Helen Rich MD (vice president global digital marketing). I, Dr. EARLENE JORDAN M.D. have personally reviewed and interpreted this examination/study. This report was electronically signed by EARLENE JORDAN M.D. on 10/15/2017 12:38 PM . Jaiden Cleveland MD CT ORDERABLES * CULTURE URINE (10/15/2017 9:31 AM CDT) Pathologist [facility] Culture Urine No growth (<1,000 CFU/mL) DEJUAN 10/16/2017 2:32 PM CDT [facility] Urine URINE SPECIMEN OBTAINED BY CLEAN CATCH PROCEDURE / Unknown Collection / Unknown 10/15/2017 9:31 AM CDT 10/15/2017 9:34 AM CDT Elver Askew MD LAB - MICROBIOL OGY ORDERABLES [facility] [address] [phone] * LDH BLOOD (10/15/2017 9:25 AM CDT) [facility] LDH Total 158 125 - 243 Units/L 10/15/2017 10:14 AM CDT [facility] Blood BLOOD SPECIMEN / Unknown Venipuncture / Unknown 10/15/2017 9:25 AM CDT 10/15/2017 9:32 AM CDT Elver Askew MD LAB - CHEMISTRY ORDERABLES Performing Organization Address City/[facility] Co de Phone Number [address] [phone] * EKG 12-LEAD (10/15/2017 8:40 AM CDT) Pathologist [facility] Ventricular Rate 136 BPM [facility] Atrial Rate 136 BPM [facility] MUSE P-R Interval 136 ms [facility] MUSE QRS Duration ms 66 ms [facility] MUSE Q-T Interval ms 302 ms [facility] MUSE QTC Calculation (Bezet) 454 ms [facility]USE Calculated P [place] -106 degrees [facility] Calculated R [place] 68 degrees [facility] Calculated T [place] -89 degrees [facility] Interpretation EKG Atrial tachycardia~In complete right bundle branch block~Low voltage QRS~ST & T wave abnormality, consider anterior ischemia~Abnor mal ECG~When compared with ECG of 07-AUG-2017 02:03,~Atrial tachycardia has replaced Sinus rhythm~Vent. rate has increased BY ??58 BPM~Team aware~Confirme d by JONATHAN VERDIN, P ([id number]), associate entertainment editor Sarkis Odonnell ([id number]) on 10/21/2017 2:36:27 PM [facility] MUSE 10/15/2017 8:40 AM CDT 10/21/2017 2:36 PM CDT Elver Askew MD ECG ORDERABLES Performing Organization Address City/[facility]/ZIP Co de Phone Number [facility] MUSE * (ABNORMAL) GLUCOSE - POINT OF CARE (10/15/2017 7:42 AM CDT) Glucose WB/POC 140(H) 70 - 115 mg/dL 10/15/2017 8:02 AM CDT [facility] Specimen Type Arterial/C apillary 10/15/2017 8:02 AM CDT [facility] Blood BLOOD SPECIMEN / Unknown 10/15/2017 7:42 AM CDT 10/15/2017 8:02 AM CDT Narrative [facility] - 10/15/2017 8:02 AM CDT Senior Accounting Analyst: DARLINE ??DOROTHY Elver Askew MD LAB - POINT OF CARE ORDERABLES Performing Organization Address [facility]/ZIP Co de Phone Number [address] [phone] * OSMOLALITY URINE (10/15/2017 4:39 AM CDT) Osmolality Urine 288 mOsm/kg 10/15/2017 5:06 AM CDT [facility] Urine URINE SPECIMEN OBTAINED BY CLEAN CATCH PROCEDURE / Unknown Collection / Unknown 10/15/2017 4:39 AM CDT 10/15/2017 4:42 AM CDT Elver Askew MD LAB - URINE NINI GAL ORDERABLES Performing Organization Address [facility]/ZIP Co de Phone Number [address] [phone] * UREA NITROGEN URINE RANDOM (10/15/2017 4:39 AM CDT) Urea Nitrogen Random Urine 111 Not Established mg/dL 10/15/2017 5:01 AM CDT [facility] Urine URINE SPECIMEN OBTAINED BY CLEAN CATCH PROCEDURE / Unknown Collection / Unknown 10/15/2017 4:39 AM CDT 10/15/2017 4:42 AM CDT Elver Askew MD LAB - URINE NINI GAL ORDERABLES Performing Organization Address [facility]/ZIP Co de Phone Number [address] [phone] * CREATININE URINE RANDOM (10/15/2017 4:39 AM CDT) Creatinine Urine 90 Not Established mg/dL 10/15/2017 5:03 AM CDT [facility] Comment: Result obtained by dilution. Urine URINE SPECIMEN OBTAINED BY CLEAN CATCH PROCEDURE / Unknown Collection / Unknown 10/15/2017 4:39 AM CDT 10/15/2017 4:42 AM CDT Elver Askew MD LAB - URINE NINI GAL ORDERABLES Performing Organization Address [facility] Co de Phone Number [address] [phone] * SODIUM URINE RANDOM (10/15/2017 4:39 AM CDT) Sodium Urine <20 Not Established mmol/L 10/15/2017 5:01 AM CDT [facility] Urine URINE SPECIMEN OBTAINED BY CLEAN CATCH PROCEDURE / Unknown Collection / Unknown 10/15/2017 4:39 AM CDT 10/15/2017 4:42 AM CDT Elver Askew MD LAB - URINE NINI GAL ORDERABLES Performing Organization Address [facility] Co de Phone Number [address] [phone] * (ABNORMAL) URINALYSIS REFLEX TO MICROSCOPIC NO CULTURE (10/15/2017 4:39 AM CDT) Color UA [place](A) Straw, Yellow, Colorless, Light Yellow 10/15/2017 5:04 AM [facility] Clarity UA Cloudy(A) Clear 10/15/2017 5:04 AM [facility] Specific [place] UA 1.031(H) 1.001 - 1.030 10/15/2017 5:04 AM [facility] pH UA 5.5 5.0 - 8.0 10/15/2017 5:04 AM [facility] Protein UA 100(A) <=20 mg/dL 10/15/2017 5:04 AM [facility] Glucose UA 30(A) Negative mg/dL 10/15/2017 5:04 AM [facility] Ketone UA Negative Negative mg/dL 10/15/2017 5:04 AM [facility] Bilirubin UA Negative Negative mg/dL 10/15/2017 5:04 AM [facility] Blood UA Moderate(A) Negative 10/15/2017 5:04 AM [facility] Nitrite UA Negative Negative 10/15/2017 5:04 AM [facility] Leukocyte Esterase Large(A) Negative 10/15/2017 5:04 AM [facility] Urobilinogen UA <2.0 <2.0 mg/dL 8 5:04 AM [facility] RBC UA 48(H) 0 - 8 /HPF 10/15/2017 5:04 AM [facility] WBC UA >100(H) 0 - 2 /HPF 10/15/2017 5:04 AM [facility] Squamous Epithelial Cells UA 5(H) 0 - 1 /HPF 10/15/2017 5:04 AM [facility] Mucus UA Many(A) None /LPF 10/15/2017 5:04 AM [facility] Hyaline Casts UA 33(H) 0 - 2 /LPF 10/16/19 18 5:04 AM [facility] Urine URINE SPECIMEN OBTAINED BY CLEAN CATCH PROCEDURE / Unknown Collection / Unknown 10/15/2017 4:39 AM CDT 10/15/2017 4:42 AM CDT Elver Askew MD LAB - URINALYSI S ORDERABLES [address] [phone] * HEMOGLOBIN A1C (10/15/2017 4:22 AM CDT) Hemoglobin A1c 5.5 4.4 - 6.3 % 10/15/2017 1:32 PM CDT [facility] Estimated Average Glucose 111 mg/dL 10/15/2017 1:32 PM CDT [facility] Comment: HbA1c Interpretation: Treatment target values recommended by ADA and other clinical organizations should be used to evaluate metabolic control in patients. Treatment Target Values: Normal : < 5.7% Pre-diabetes: 5.7-6.4% Diabetes: Equal to or greater than 6.5% Reference: [place] [employer] Standards of Care in Diabetes -2014 In patients 70 years and older consider HbA1c target range of 7.0-7.5% Reference: ??Diabetes Mellitus in Older People: Position Statement on behalf of the International Association of Gerontology and Geriatrics (IAGG), the Diabetes Working Democrat for Older People (EDWPOP), and the International Task Force of Experts in Diabetes. ??Rigo Aguilar, et al. J [employer]. 2012 Test results diagnostic [...] Elver Askew MD LAB - CHEMISTRY ORDERABLES [address] [phone] * VANCOMYCIN LEVEL RANDOM (10/15/2017 4:22 AM CDT) Pathologist [facility] Vancomycin Random 23.3 Therapeutic Ranges not established for random specimens mcg/mL 10/15/2017 5:13 AM [facility] Blood BLOOD SPECIMEN / Unknown Venipuncture / Unknown 10/15/2017 4:22 AM CDT 10/15/2017 4:28 AM CDT Elver Askew MD LAB - CHEMISTRY ORDERABLES Performing Organization Address City/State/[facility] Co de Phone Number [address] [phone] * (ABNORMAL) CBC W AUTO DIFFERENTIAL (10/15/2017 4:22 AM CDT) Pathologist [facility] WBC 15.8(H) 3.5 - 10.5 10? 3 /uL 10/15/2017 4:38 AM [facility] RBC 2.78(L) 3.90 - 5.00 10? 6 /uL 10/15/2017 4:38 AM [facility] Hemoglobin 8.8(L) 12.0 - 15.5 g/dL 10/15/2017 4:38 AM [facility] Hematocrit 24.6(L) 35.0 - 45.0 % 10/15/2017 4:38 AM [facility] MCV 88.5 81.0 - 97.0 fL 10/15/2017 4:38 AM [facility] MCH 31.7 28.0 - 34.0 pg 10/15/2017 4:38 AM [facility] MCHC 35.8 32.0 - 36.0 g/dL 10/15/2017 4:38 AM [facility] Platelet Count 177 150 - 400 10? 3 /uL 10/15/2017 4:38 AM [facility] RDW-SD 44.0 36.0 - 50.0 fL 10/15/2017 4:38 AM [facility] RDW-CV 13.6 11.2 - 14.8 % 10/15/2017 4:38 AM [facility] MPV 8.7(L) 9.3 - 12.8 fL 10/15/2017 4:38 AM [facility] Neutrophils % 89.2(H) 35.0 - 70.0 % 10/15/2017 4:38 AM [facility] Lymphocytes % 7.5(L) 19.7 - 55.1 % 10/15/2017 4:38 AM [facility] Monocytes % 3.2 3.0 - 15.0 % 10/15/2017 4:38 AM [facility] Eosinophils % 0.1 0.0 - 6.0 % 10/15/2017 4:38 AM [facility] Basophil % 0.0 0.0 - 1.5 % 10/15/2017 4:38 AM [facility] Neutrophils Absolute 14.1(H) 1.6 - 7.0 10? 3 /uL 10/15/2017 4:38 AM [facility] Lymphocyte Absolute 1.2 0.8 - 2.9 10? 3 /uL 10/15/2017 4:38 AM [facility] Monocytes Absolute 0.50 0.14 - 0.66 10? 3 /uL 10/15/2017 4:38 AM [facility] Eosinophils Absolute 0.01 0.00 - 0.22 10? 3 /uL 10/15/2017 4:38 AM [facility] Basophils Absolute 0.00 0.00 - 0.06 10? 3 /uL 10/15/2017 4:38 AM [facility] Immature Granulocytes % 0.6 0.0 - 1.0 % 10/15/2017 4:38 AM [facility] Blood BLOOD SPECIMEN / Unknown Venipuncture / Unknown 10/15/2017 4:22 AM CDT 10/15/2017 4:28 AM T Elver Askew MD LAB - HEMATOLOG Y ORDERABLES [address] [phone] * (ABNORMAL) COMPREHENSIVE METABOLIC PANEL (10/15/2017 4:22 AM CDT) BUN 15 7 - 26 mg/dL 10/15/2017 5:22 AM [facility] Creatinine 1.1 0.6 - 1.2 mg/dL 10/15/2017 5:22 AM [facility] Sodium 123(L) 136 - 145 mmol/L 10/15/2017 5:22 AM [facility] Potassium 3.0(L) 3.5 - 4.5 mmol/L 10/15/2017 5:22 AM [facility] Chloride 99 98 - 107 mmol/L 10/15/2017 5:22 AM [facility] CO2 11(L) 22 - 29 mmol/L 10/15/2017 5:22 AM [facility] Glucose 231(H) 70 - 115 mg/dL 10/15/2017 5:22 AM [facility] Calcium 7.5(L) 8.4 - 10.2 mg/dL 10/15/2017 5:22 AM [facility] Protein Total 4.8(L) 6.0 - 8.3 g/dL 10/15/2017 5:22 AM [facility] Albumin 4.3 3.4 - 5.0 g/dL 10/15/2017 5:22 AM [facility] Bilirubin Total 0.9 0.2 - 1.2 mg/dL 10/15/2017 5:22 AM [facility] Alkaline Phosphatase 50 40 - 150 Units/L 10/15/2017 5:22 AM [facility] ALT 6 0 - 55 Units/L 10/15/2017 5:22 AM [facility] AST 23 5 - 34 Units/L 10/15/2017 5:22 AM [facility] Anion Gap 16 8 - 18 10/15/2017 5:22 AM [facility] BUN/Creatinine Ratio 14 7 - 23 10/15/2017 5:22 AM [facility] Osmolality Calculated 264(L) 270 - 300 mOsm/kg 10/15/2017 5:22 AM [facility] Albumin/Globulin Ratio 8.6(H) 1.1 - 2.3 10/15/2017 5:22 AM [facility] eGFR 52(L) >60 mL/min/1.7 3 m2 10/15/2017 5:22 AM [facility] Blood BLOOD SPECIMEN / Unknown Venipuncture / Unknown 10/15/2017 4:22 AM CDT 10/15/2017 4:28 AM CDT Elver Askew MD LAB - CHEMISTRY ORDERABLES Performing Organization Address [facility] Co de Phone Number [address] [phone] * (ABNORMAL) LACTIC ACID BLOOD (10/15/2017 4:22 AM CDT) Lactic Acid-Stat 3.5(H) 0.5 - 2.2 mmol/L 10/15/2017 4:45 AM CDT [facility] Blood BLOOD SPECIMEN / Unknown Venipuncture / Unknown 10/15/2017 4:22 AM CDT 10/15/2017 4:28 AM CDT Elver Askew MD LAB - CHEMISTRY ORDERABLES Performing Organization Address [facility] de Phone Number [address] [phone] * (ABNORMAL) PT-INR [facility] (10/15/2017 4:22 AM CDT) PT 36.2(H) 12.1 - 14.8 Seconds 10/15/2017 4:46 AM CDT [facility] INR 3.7 See Comment 10/15/2017 4:46 AM CDT [facility] Comment: Suggested therapeutic range for low-intensity coumadin therapy for venous thromboembolism prophylaxis is an INR of 2.0-3.0. ??For high risk patients (Mitral Valve Prosthesis, Atrial Fibrillation, history of TIA/stroke), suggested prophylactic therapeutic range is an INR of 2.5-3.5. Blood BLOOD SPECIMEN / Unknown Venipuncture / Unknown 10/15/2017 4:22 AM CDT 10/15/2017 4:28 AM CDT Elver Askew MD LAB - COAGULATI ON ORDERABLES Performing Organization Address [facility]/State/ZIP Co de Phone Number [address] [phone] * (ABNORMAL) GLUCOSE - POINT OF CARE (10/15/2017 4:20 AM CDT) Glucose WB/POC 236(H) 70 - 115 mg/dL 10/15/2017 4:36 AM CDT [facility] Specimen Type Arterial/C apillary 10/15/2017 4:36 AM CDT [facility] Blood BLOOD SPECIMEN / Unknown 10/15/2017 4:20 AM CDT 10/15/2017 4:36 AM CDT Narrative [facility] - 10/15/2017 4:36 AM CDT Senior Accounting Analyst: CASSANDRA ??REGI Elver Askew MD LAB - POINT OF CARE ORDERABLES Performing Organization Address [facility]/ZIP Co de Phone Number [address] [phone] * TRIGLYCERIDES BODY FLUID ([facility] ONLY) (10/15/2017 4:05 AM CDT) Pathologist [facility] [place] Triglycerides Fluid 21 Not Established For Fluids mg/dL 10/15/2017 4:39 AM CDT [facility] Comment: The reference range and other method performance specifications have not been established for this fluid. The test result must be integrated into the clinical context for interpretation. Fluid PLEURAL FLUID / Unknown Collection / Unknown 10/15/2017 4:05 AM CDT 10/15/2017 4:06 AM CDT Crow Hatfield DO LAB - [place] [address], [facility] [phone] * AMYLASE BODY FLUID ([facility] ONLY) (10/15/2017 4:05 AM CDT) Amylase Fluid 17 Not Established For Fluids Units/L 10/15/2017 4:39 AM CDT [facility] Comment: The reference range and other method performance specifications have not been established for this fluid. The test result must be integrated into the clinical context for interpretation. Fluid PLEURAL FLUID / Unknown Collection / Unknown 10/15/2017 4:05 AM CDT 10/15/2017 4:06 AM CDT Crow Hatfield DO LAB - BODY FLUID O RDERABLES Performing Organization Address [facility] de Phone Number [address] [phone] * PROTEIN BODY FLUID ([facility] ONLY) (10/15/2017 4:05 AM CDT) Protein Fluid 1.5 Not Established For Fluids g/dL 10/15/2017 4:39 AM CDT [facility] Comment: The reference range and other method performance specifications have not been established for this fluid. The test result must be integrated into the clinical context for interpretation. Fluid PLEURAL FLUID / Unknown Collection / Unknown 10/15/2017 4:05 AM CDT 10/15/2017 4:06 AM CDT Crow Hatfield DO LAB - BODY FLUID O RDERARIANA Performing Organization Address [facility] de Phone Number [address] [phone] * CYTOLOGY NON-PAINTER SKI EDGE PANEL (STL) (10/15/2017 4:04 AM CDT) Case Report Medical Cytology Report ? Case: [id number] ? Authorizing Provider: ??Crow Hatfield DO ?Collected: ? 10/15/2017 04:04 AM ? Ordering Location: ? [facility] 9 ICU ?Received: ?10/15/2017 04:26 AM ? Pathologist: ? Jerry Lucero MD ? Specimen: ?Pleural Fluid, left ? 10/15/2017 4:34 PM CDT [facility] Specimen Adequacy Adequate cellularity for evaluation. 10/15/2017 4:34 PM CDT [facility] Final Diagnosis Pleural fluid, left - Negative for malignancy - Acute inflammation 10/15/2017 4:34 PM CDT [facility] Clinical History Pleural effusion. 10/15/2017 4:34 PM CDT [facility] Gross Description 1 cs/pap slide and 1 cs/diff-quik slide from 40 cc clear yellow fluid. 10/15/2017 4:34 PM CDT [facility] Microscopic Description Review of 1 pap and 1 diff quik stained cytospin slides reveals benign appearing mesothelial cells and inflammation. 10/15/2017 4:34 PM CDT [facility] Disclaimer The performance characteristics of all immunohistochemical and indirect immunofluorescence stains (if any) cited in this report were determined by the Histopathology Laboratory of [facility]. Some of these tests rely on the use of analyte-specific reagents and are subject to specific labeling requirements by the US Food and Drug Administration. Such tests were developed by the Histology Laboratory of [facility] and have not been cleared or approved [...] attending (teaching) pathologist. 10/15/2017 4:34 PM CDT [facility] PATH[facility]Y LAB Embedded Images 10/15/2017 4:34 PM CDT [facility] PATH[facility] LAB Pathology/Cytolo gy PLEURAL FLUID / Unknown Collection / Unknown 10/15/2017 4:04 AM CDT 10/15/2017 4:26 AM CDT Crow Hatfield DO LAB - PATHOLOGY/CY TOLOGY ORDERABLES [facility] PATHOLOGY LAB [address] [place] [address], [facility] [phone] * CULTURE ANAEROBE (10/15/2017 4:04 AM CDT) Culture No anaerobic organisms isolated DEJUAN 10/22/2017 2:34 PM CDT [facility] MICROBIOLOGY Microbiology PLEURAL EFFUSION / Unknown Collection / Unknown 10/15/2017 4:04 AM CDT 10/15/2017 4:31 AM CDT [facility] - [facility]OLOG[facility] ORDERABLES Performing Organization Address [facility]/ZIP Co de Phone Number [facility] MICROBIOLOGY [address] [place] [address], [facility] [phone] * PH BODY FLUID ([facility] ONLY) (10/15/2017 4:03 AM CDT) pH Fluid 7.400 Not Established For Fluids 10/15/2017 4:07 AM CDT [facility] Comment: The reference range and other method performance specifications have not been established for this fluid. The test result must be integrated into the clinical context for interpretation. Fluid PLEURAL FLUID / Unknown Collection / Unknown 10/15/2017 4:03 AM CDT 10/15/2017 4:03 AM CDT Crow Sternton LAB - BODY FLUID O RDERABLES Performing Organization Address City/[facility]/ZIP Co de Phone Number [facility] [address] [place] [address], [facility] [phone] * XR CHEST 1VW PORTABLE (10/15/2017 3:30 AM CDT) Anatomical Region Laterality Modality Chest Radiographic Indira ging 10/15/2017 9:27 AM CDT Impressions 10/18/2017 8:20 AM CDT Findings/impression: The endotracheal tube tip overlies the distal thoracic trachea. The right upper extremity peripherally inserted central catheter tip overlies the superior cavoatrial junction. The previously seen complete opacification of the left hemithorax has resolved. Left basilar atelectasis/airspace disease with an associated small pleural effusion persists. Diffuse airspace and interstitial opacities throughout the right lung have increased, likely representing pulmonary edema or infection in the acute setting. A trace right pleural effusion is present. No pneumothorax is identified on this supine radiograph. The cardiomediastinal silhouette is normal. This report has been dictated by Toma Brasher M.D. (Resident). This report was approved ??by Toma Brasher M.D. ?? on 10/15/2017 3:20 PM . I, Dr. EULALIA MCKEE M.D. have personally reviewed and interpreted this examination/study. This report was electronically signed by EULALIA MCKEE M.D. ??on 10/18/2017 8:20 AM . Narrative 10/18/2017 8:20 AM CDT Exam: Chest, portable AP supine view Date: 10/15/2017 at 3:32 AM History: 56-year-old female status post thoracentesis Comparison: Portable chest radiograph dated 10/14/2017 at 8:57 PM Procedure Note Eulalia Mckee MD - 10/18/2017 Exam: Chest, portable AP supine view Date: 10/15/2017 at 3:32 AM History: 56-year-old female status post thoracentesis Comparison: Portable chest radiograph dated 10/14/2017 at 8:57 PM Findings/impression: The endotracheal tube tip overlies the distal thoracic trachea. Theright upper extremity peripherally inserted central catheter tip overlies the superior cavoatrial junction. The previously seen complete opacification of the left hemithorax has resolved. Left basilar atelectasis/airspace disease with an associated small pleural effusion persists. Diffuse airspace and interstitial opacities throughout the right lung have increased, likely representing pulmonary edema or infection in the acute setting. A trace right pleural effusion is present. No pneumothorax is identified on this supine radiograph. The cardiomediastinal silhouette is normal. This report has been dictated by Toma Brasher M.D. (Resident). This report was approved by Toma Brasher M.D. on 10/15/2017 3:20 PM . I, Dr. EULALIA MCKEE M.D. have personally reviewed and interpreted this examination/study. This report was electronically signed by EULALIA MCKEE M.D. on 10/18/2017 8:20 AM . Crow Hatfield DO DIAGNOSTIC IMAGING ORDERABLES * DIFFERENTIAL MANUAL FLUID (10/15/2017 3:10 AM CDT) [facility] Segs % Fluid 86 % 10/15/2017 5:28 AM CDT [facility] Lymphocytes % Fluid 5 % 10/15/2017 5:28 AM CDT [facility] Monocytes % Fluid 5 % 018 5:28 AM T [facility] Macrophages % Fluid 3 % 10/15/2017 5:28 AM CDT [facility] Mesothelials % Fluid 1 % 10/15/2017 5:28 AM T [facility] Fluid PLEURAL FLUID / Unknown Collection / Unknown 10/15/2017 3:10 AM CDT 10/15/2017 4:03 AM CDT Elver Askew MD LAB - BODY FLUI D ORDERABLES [address] [phone] * GLUCOSE BODY FLUID ([facility] ONLY) (10/15/2017 3:10 AM CDT) [facility] Glucose Fluid 197 Not Established For Fluids mg/dL 10/15/2017 4:51 AM T [facility] Comment: The reference range and other method performance specifications have not been established for this fluid. The test result must be integrated into the clinical context for interpretation. Fluid PLEURAL FLUID / Unknown Collection / Unknown 10/15/2017 3:10 AM CDT 10/15/2017 4:03 AM CDT Elver Askew MD LAB - [place] [address], [facility] [phone] * LD BODY FLUID ([facility] ONLY) (10/15/2017 3:10 AM CDT) LD Fluid 79 Not Established For Fluids Units/L 10/15/2017 4:51 AM CDT [facility] Comment: The reference range and other method performance specifications have not been established for this fluid. The test result must be integrated into the clinical context for interpretation. Fluid PLEURAL FLUID / Unknown Collection / Unknown 10/15/2017 3:10 AM CDT 10/15/2017 4:03 AM CDT Elver Askew MD LAB - BODY FLUI D ORDERABLES Performing Organization Address [facility]/[place] [address], [facility] [phone] * CULTURE FLUID+GRAM STAIN (10/15/2017 3:10 AM CDT) Culture No growth DEJUAN 10/22/2017 11:58 AM CDT [facility] MICRO[facility]OLOG[facility] Gram Stain Heavy White blood cells 10/22/2017 11:58 AM CDT [facility] MICROBIOLOGY Gram Stain No organisms seen 10/22/2017 11:58 AM CDT [facility] MICROBIOLOGY Fluid PLEURAL EFFUSION / Unknown Collection / Unknown 10/15/2017 3:10 AM CDT 10/15/2017 4:03 AM CDT Elver Askew MD LAB - MICROBIOL OGY ORDERABLES [facility] MICROBIOLOG[facility] [address] [place] [address], [facility] [phone] * (ABNORMAL) CELL COUNT W DIFFERENTIAL FLUID (10/15/2017 3:10 AM CDT) Color Fluid Yellow(A) Colorless, Straw 10/15/2017 4:58 AM CDT [facility] Clarity Fluid Clear Clear 10/15/2017 4:58 AM CDT [facility] Volume Fluid 10.0 mL 10/15/2017 4:58 AM CDT [facility] WBC Fluid 611 Reference Range Not Established /uL 10/15/2017 4:58 AM CDT [facility] RBC Fluid 40 Reference Range Not Established /uL 10/15/2017 4:58 AM CDT [facility] Differential Manual Differential to follow. 10/15/2017 4:58 AM CDT [facility] Fluid PLEURAL FLUID / Unknown Collection / Unknown 10/15/2017 3:10 AM CDT 10/15/2017 4:03 AM CDT Narrative [facility] - 10/15/2017 4:58 AM CDT No established reference range for WBC and RBC body fluid count. Elver Askew MD LAB - BODY FLUI D ORDERABLES [address] [phone] * ALBUMIN BODY FLUID ([facility] ONLY) (10/15/2017 3:10 AM CDT) Albumin Fluid 1.2 Not Established For Fluids g/dL 10/15/2017 4:39 AM CDT [facility] Comment: The reference range and other method performance specifications have not been established for this fluid. The test result must be integrated into the clinical context for interpretation. Fluid PLEURAL FLUID / Unknown Collection / Unknown 10/15/2017 3:10 AM CDT 10/15/2017 4:03 AM CDT Elver Askew MD LAB - BODY FLUI D ORDERABLES [address] [phone] * ALBUMIN BODY FLUID ([facility] ONLY) (10/15/2017 12:33 AM CDT) Albumin Fluid 0.8 Not Established For Fluids g/dL 10/15/2017 1:01 AM CDT [facility] Comment: The reference range and other method performance specifications have not been established for this fluid. The test result must be integrated into the clinical context for interpretation. Fluid PERITONEAL FLUID / Unknown Collection / Unknown 10/15/2017 12:33 AM CDT 10/15/2017 12:37 AM CDT Elver Askew MD LAB - BODY FLUI D ORDERABLES [address] [phone] * DIFFERENTIAL MANUAL FLUID (10/15/2017 12:23 AM CDT) Segs % Fluid 9 % 10/15/2017 3:00 AM CDT [facility] Lymphocytes % Fluid 7 % 10/15/2017 3:00 AM CDT [facility] Monocytes % Fluid 8 % 018 3:00 AM CDT [facility] Macrophages % Fluid 72 % 10/15/2017 3:00 AM CDT [facility] Mesothelials % Fluid 4 % 10/15/2017 3:00 AM CDT [facility] Fluid (Ascities) Collection / Unknown 10/15/2017 12:23 AM CDT 10/15/2017 12:38 AM CDT Elver Askew MD LAB - BODY FLUI D ORDERABLES [address] [phone] * CULTURE FLUID+GRAM STAIN (10/15/2017 12:23 AM CDT) Culture No growth DEJUAN 10/23/2017 11:00 AM CDT [facility] MICROBIOLOGY Fluid PERITONEAL FLUID / Unknown Collection / Unknown 10/15/2017 12:23 AM CDT 10/15/2017 12:37 AM CDT Elver Askew MD LAB - MICROBIOL OGY ORDERABLES [facility] [address] [place] [address], [facility] [phone] * (ABNORMAL) CELL COUNT W DIFFERENTIAL FLUID (10/15/2017 12:23 AM CDT) Color Fluid Yellow(A) Colorless, Straw 10/15/2017 1:04 AM CDT [facility] Clarity Fluid Cloudy(A) Clear 10/15/2017 1:04 AM CDT [facility] Volume Fluid 2.0 mL 10/15/2017 1:04 AM CDT [facility] WBC Fluid 48 Reference Range Not Established /uL 10/15/2017 1:04 AM CDT [facility] RBC Fluid 3,000 Reference Range Not Established /uL 10/15/2017 1:04 AM CDT [facility] Differential Manual Differential to follow. 10/15/2017 1:04 AM T [facility] Fluid (Ascities) Collection / Unknown 10/15/2017 12:23 AM CDT 10/15/2017 12:38 AM CDT Narrative [facility] - 10/15/2017 1:04 AM CDT No established reference range for WBC and RBC body fluid count. Elver Askew MD LAB - BODY FLUI D ORDERABLES [facility] [address] [place] [address], [facility] [phone] * CULTURE SPUTUM+GRAM STAIN (10/14/2017 10:50 PM CDT) Culture Light normal oropharyngeal annia DEJUAN 10/17/2017 5:25 AM CDT [facility] MICROBIOLOGY Gram Stain >= 25 per low power field Polymorphonuclear cells 10/17/2017 5:25 AM CDT [facility] MICROBIOLOGY Gram Stain <10 per low power field Squamous epithelial cells 10/17/2017 5:25 AM CDT [facility] MICROBIOLOGY Gram Stain Rare Yeast 10/17/2017 5:25 AM CDT [facility] Microbiology SPUTUM / Unknown Collection / Unknown 10/14/2017 10:50 PM CDT 10/14/2017 10:55 PM CDT Elver Askew MD LAB - MICROBIOL OGY ORDERABLES [facility]CRO[facility] [address] [place] [address], [facility] [phone] * CULTURE BLOOD (10/14/2017 10:50 PM CDT) Culture No growth day 5 DEJUAN 10/20/2017 1:26 AM CDT [facility]CRO[facility] Blood BLOOD SPECIMEN / Unknown Venipuncture / Unknown 10/14/2017 10:50 PM CDT 10/14/2017 10:55 PM CDT Elver Askew MD LAB - MICROBIOL OGY ORDERABLES Performing Organization Address City/[facility]/ZIP Co de Phone Number [facility] MICROBIOLOG[facility] [address] [place] [address], [facility] [phone] * (ABNORMAL) BLOOD GASES ART COMPLETE [facility] OR (10/14/2017 10:39 PM CDT) pH Arterial 7.35 7.35 - 7.45 10/14/2017 10:48 PM T [facility] pCO2 Arterial 22(L) 35 - 45 mmHg 10/14/2017 10:48 PM T [facility] pO2 Arterial 58(L) 77 - 101 mmHg 10/14/2017 10:48 PM T [facility] HCO3 Arterial 11.9(L) 22.0 - 26.0 mmol/L 10/14/2017 10:48 PM [facility] TCO2 Arterial 12.6(L) 25.0 - 29.0 mmol/L 10/14/2017 10:48 PM [facility] Base Excess Arterial -11.9(L) -2.0 - 2.0 mmol/L 10/14/2017 10:48 PM T [facility] Hemoglobin Arterial 11.0(L) 12.0 - 15.5 g/dL 10/14/2017 10:48 PM [facility] Oxyhemoglobin Arterial 90.3(L) 95.0 - 100.0 % 10/14/2017 10:48 PM [facility] Carboxyhemoglobin 0.3 0.0 - 3.0 % 10/14/2017 10:48 PM [facility] Methemoglobin 0.5 0.0 - 2.0 % 10/14/2017 10:48 PM [facility] FI O2 Arterial 80.0 % 10/14/2017 10:48 PM [facility] Ionized Calcium Whole Blood 1.21 mmol/L 10/14/2017 10:48 PM [facility] Adjusted Ionized Calcium 1.18(L) 1.19 - 1.34 mmol/L 10/14/2017 10:48 PM [facility] Sodium Whole Blood 122(L) 135 - 145 mmol/L 10/14/2017 10:48 PM [facility] Potassium Whole Blood 3.4(L) 3.5 - 5.5 mmol/L 10/14/2017 10:48 PM [facility] Chloride Whole Blood 97(L) 101 - 111 mmol/L 10/14/2017 10:48 PM [facility] Glucose Whole Blood 206(H) 70 - 110 mg/dL 10/14/2017 10:48 PM [facility] Lactic Acid Whole Blood 4.2(HH) 0.5 - 3.4 mmol/L 10/14/2017 10:48 PM [facility] Comment:RESULTS CALLED TO AN D READ BACK BY Maddy Forrester RN AT 10:48 PM, 10/14/2017 Blood ARTERIAL BLOOD SPECIMEN / Unknown Venipuncture / Unknown 10/14/2017 10:39 PM CDT 10/14/2017 10:42 PM CDT Elver Askew MD LAB - BLOOD GAS ES ORDERABLES [facility] [address] [place] [address] * CULTURE BLOOD (10/14/2017 10:20 PM CDT) Culture No growth day 5 DEJUAN 10/20/2017 1:26 AM CDT [facility] Blood PERIPHERAL BLOOD / Unknown Venipuncture / Unknown 10/14/2017 10:20 PM CDT 10/14/2017 10:26 PM CDT Elver Askew MD LAB - MICROBIOL OGY ORDERABLES [facility] [address] [phone] * VANCOMYCIN LEVEL RANDOM (10/14/2017 10:20 PM CDT) Pathologist [facility] Vancomycin Random 9.0 Therapeutic Ranges not established for random specimens mcg/mL 10/14/2017 10:48 PM CDT [facility] Blood BLOOD SPECIMEN / Unknown Venipuncture / Unknown 10/14/2017 10:20 PM CDT 10/14/2017 10:26 PM CDT Elver Askew MD LAB - CHEMISTRY ORDERABLES [facility] [address] [place] [address] * (ABNORMAL) CBC W/O DIFFERENTIAL (10/14/2017 10:20 PM CDT) Pathologist [facility] WBC 14.2(H) 3.5 - 10.5 10? 3 /uL 10/14/2017 10:34 PM [facility] RBC 3.50(L) 3.90 - 5.00 10? 6 /uL 10/14/2017 10:34 PM [facility] Hemoglobin 10.9(L) 12.0 - 15.5 g/dL 10/14/2017 10:34 PM [facility] Hematocrit 30.9(L) 35.0 - 45.0 % 10/14/2017 10:34 PM [facility] MCV 88.3 81.0 - 97.0 fL 10/14/2017 10:34 PM [facility] MCH 31.1 28.0 - 34.0 pg 10/14/2017 10:34 PM [facility] MCHC 35.3 32.0 - 36.0 g/dL 10/14/2017 10:34 PM [facility] Platelet Count 186 150 - 400 10? 3 /uL 10/14/2017 10:34 PM [facility] RDW-SD 44.4 36.0 - 50.0 fL 10/14/2017 10:34 PM [facility] RDW-CV 13.6 11.2 - 14.8 % 10/14/2017 10:34 PM [facility] MPV 8.4(L) 9.3 - 12.8 fL 10/14/2017 10:34 PM [facility] Blood BLOOD SPECIMEN / Unknown Venipuncture / Unknown 10/14/2017 10:20 PM CDT 10/14/2017 10:26 PM T Elver Askew MD LAB - HEMATOLOG Y ORDERABLES Performing Organization Address City/State/[facility] Co de Phone Number [address] [phone] * (ABNORMAL) BASIC METABOLIC PANEL (CALCIUM TOTAL) (10/14/2017 10:20 PM T) BUN 16 7 - 26 mg/dL 10/14/2017 10:52 PM [facility] Creatinine 1.3(H) 0.6 - 1.2 mg/dL 10/14/2017 10:52 PM [facility] Sodium 119(LL) 136 - 145 mmol/L 10/14/2017 10:52 PM [facility] Potassium 3.2(L) 3.5 - 4.5 mmol/L 10/14/2017 10:52 PM [facility] Chloride 97(L) 98 - 107 mmol/L 10/14/2017 10:52 PM [facility] CO2 11(L) 22 - 29 mmol/L 10/14/2017 10:52 PM [facility] Glucose 242(H) 70 - 115 mg/dL 10/14/2017 10:52 PM [facility] Calcium 8.4 8.4 - 10.2 mg/dL 10/14/2017 10:52 PM T [facility] Anion Gap 14 8 - 18 10/14/2017 10:52 PM T [facility] BUN/Creatinine Ratio 12 7 - 23 10/14/2017 10:52 PM T [facility] Osmolality Calculated 257(L) 270 - 300 mOsm/kg 10/14/2017 10:52 PM [facility] eGFR 43(L) >60 mL/min/1.7 3 m2 10/14/2017 10:52 PM T [facility] Blood BLOOD SPECIMEN / Unknown Venipuncture / Unknown 10/14/2017 10:20 PM CDT 10/14/2017 10:25 PM CDT Elver Askew MD LAB - CHEMISTRY ORDERABLES Performing Organization Address [facility]/ZIP Co de Phone Number [address] [phone] * PHOSPHORUS BLOOD (10/14/2017 10:20 PM CDT) Phosphorus 3.3 2.3 - 4.7 mg/dL 10/14/2017 10:46 PM T [facility] Blood BLOOD SPECIMEN / Unknown Venipuncture / Unknown 10/14/2017 10:20 PM CDT 10/14/2017 10:26 PM CDT Elver Askew MD LAB - CHEMISTRY ORDERABLES Performing Organization Address City/[facility]/ZIP Co de Phone Number [address] [phone] * (ABNORMAL) PT-INR [facility] (10/14/2017 10:20 PM CDT) PT 26.5(H) 12.1 - 14.8 Seconds 10/14/2017 10:47 PM T [facility] INR 2.5 See Comment 10/14/2017 10:47 PM T [facility] Comment: Suggested therapeutic range for low-intensity coumadin therapy for venous thromboembolism prophylaxis is an INR of 2.0-3.0. ??For high risk patients (Mitral Valve Prosthesis, Atrial Fibrillation, history of TIA/stroke), suggested prophylactic therapeutic range is an INR of 2.5-3.5. Blood BLOOD SPECIMEN / Unknown Venipuncture / Unknown 10/14/2017 10:20 PM CDT 10/14/2017 10:26 PM CDT Elver Askew MD LAB - COAGULATI ON ORDERABLES Performing Organization Address [facility]/ZIP Co de Phone Number [address] [phone] * (ABNORMAL) LACTIC ACID BLOOD (10/14/2017 10:20 PM CDT) Lactic Acid-Stat 4.3(HH) 0.5 - 2.2 mmol/L 10/14/2017 10:52 PM CDT [facility] Blood BLOOD SPECIMEN / Unknown Venipuncture / Unknown 10/14/2017 10:20 PM CDT 10/14/2017 10:26 PM CDT Elver Askew MD LAB - CHEMISTRY ORDERABLES Performing Organization Address [facility] Co de Phone Number [address] [phone] * MAGNESIUM BLOOD (10/14/2017 10:20 PM CDT) Magnesium 1.9 1.6 - 2.6 mg/dL 10/14/2017 10:49 PM CDT [facility] Blood BLOOD SPECIMEN / Unknown Venipuncture / Unknown 10/14/2017 10:20 PM CDT 10/14/2017 10:25 PM CDT Elver Askew MD LAB - CHEMISTRY ORDERABLES Performing Organization Address [facility] Co de Phone Number [address] [phone] * XR CHEST 1VW PORTABLE (10/14/2017 9:01 PM CDT) Anatomical Region Laterality Modality Chest Radiographic Indira ging 10/15/2017 8:55 AM CDT Impressions 10/18/2017 8:20 AM CDT Impression: 1. Complete opacification of the left hemithorax, new since the prior study and indicative of left lung atelectasis versus large left pleural effusion. The patient's marked leftward rotation limits evaluation for cardiomediastinal shift toward the left (which would indicate left lung volume loss) were toward the right (which would indicate large left pleural effusion). 2. Airspace and interstitial opacities throughout the right lung, most likely representing infection or pulmonary edema in the acute setting. The left hemithorax opacification has resolved as documented on the portable chest radiograph dated 10/15/2017 at 3:32 AM. This report has been dictated by Toma Brasher M.D. (Resident). This report was approved ??by Toma Brasher M.D. ?? on 10/15/2017 3:16 PM . I, Dr. EULALIA MCKEE M.D. have personally reviewed and interpreted this examination/study. This report was electronically signed by EULALIA MCKEE M.D. ??on 10/18/2017 8:20 AM . Narrative 10/18/2017 8:20 AM CDT Exam: Chest, portable AP semiupright view Date: 10/14/2017 at 8:57 PM History: 56-year-old female with septic shock Comparison: Portable chest radiograph dated 08/07/2014 at 1:38 AM Findings: The endotracheal tube tip overlies the distal thoracic trachea. The right upper extremity peripherally inserted central catheter tip overlies the superior vena cava. Complete opacification of the left hemithorax is new since the prior study and indicates left lung atelectasis versus large left pleural effusion. The patient's marked leftward rotation limits evaluation for cardiomediastinal shift toward the left or toward the right. Airspace and interstitial opacities throughout the right lung most likely represent infection or pulmonary edema in the acute setting. There is no right pleural effusion. No pneumothorax is identified. The cardiomediastinal silhouette is obscured. The visible bony thorax is intact. Procedure Note Eulalia Mckee MD - 10/18/2017 Exam: Chest, portable AP semiupright view Date: 10/14/2017 at 8:57 PM History: 56-year-old female with septic shock Comparison: Portable chest radiograph dated 08/07/2014 at 1:38 AM Findings: The endotracheal tube tip overlies the distal thoracic trachea. Theright upper extremity peripherally inserted central catheter tip overlies the superior vena cava. Complete opacification of the left hemithorax is new since the priorstudy and indicates left lung atelectasis versus large left pleural effusion. The patient's marked leftward rotation limits evaluation for cardiomediastinal shift toward the left or toward the right. Airspaceand interstitial opacities throughout the right lung most likely represent infection or pulmonary edema in the acute setting. There is no right pleural effusion. No pneumothorax is identified. The cardiomediastinal silhouette is obscured. The visible bony thorax is intact. Impression: 1. Complete opacification of the left hemithorax, new since the prior study and indicative of left lung atelectasis versus large left pleural effusion. The patient's marked leftward rotation limits evaluation for cardiomediastinal shift toward the left (which would indicate left lung volume loss) were toward the right (which would indicate large left pleural effusion). 2. Airspace and interstitial opacities throughout the right lung, most likely representing infection or pulmonary edema in the acute setting. The left hemithorax opacification has resolved as documented on the portable chest radiograph dated 10/15/2017 at 3:32 AM. This report has been dictated by Toma Brasher M.D. (Resident). This report was approved by Toma Brasher M.D. on 10/15/2017 3:16 PM . I, Dr. EULALIA MCKEE M.D. have personally reviewed and interpreted this examination/study. This report was electronically signed by EULALIA MCKEE M.D. on 10/18/2017 8:20 AM . 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) Other chronic nonalcoholic liver disease Severe malnutrition (HCC) Nutritional marasmus Other ascites Septic shock (HCC) Acute encephalopathy Encephalopathy, unspecified Acute respiratory failure with hypoxia (HCC) Acute respiratory failure 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) Other chronic nonalcoholic liver disease Cor pulmonale (chronic) (HCC) Severe malnutrition (HCC) Nutritional marasmus documented in this encounter Administered Medications Inactive Administered Medications - up to 3 most recent administrations Medication Order MAR Action Action Date Dose Rate Site 0.9% NaCl infusion for blood at 20 mL/hr, 250 mL, ONCE PRN, 1 dose, Starting on Wed10/19/17 at 0515, Until Wed11/03/17 at 1847, Normal Saline flush bag for blood and blood product administration acetaminophen (TYLENOL) tablet 500 mg 500 mg, Oral, ONCE, 1 dose, On Wed11/01/17 at 1945, Will try tylenol first for pain $ Given 11/01/2017 7:58 PM CDT 500 mg albumin human 25 % infusion 25 g 25 g, at 60 mL/hr, Intravenous, ONCE, 1 dose, On Wed10/15/17 at 0015 $ New Bag/Syringe 10/15/2017 2:24 AM CDT 25 g 60 mL/hr albumin human 25 % infusion 25 g 25 g, at 60 mL/hr, Intravenous, EVERY 6 HOURS, 4 doses, First dose on Wed10/18/17 at 1330, Last dose on Wed10/19/17 at 0200 $ New Bag/Syringe 10/19/2017 2:59 AM CDT 25 g 60 mL/hr $ New Bag/Syringe 10/18/2017 9:17 PM CDT 25 g 60 mL/ hr $ New Bag/Syringe 10/18/2017 6:55 PM CDT 25 g 60 mL/ hr albumin human 25 % infusion 50 g 50 g, at 60 mL/hr, Intravenous, DAILY, 2 doses, First dose on Wed10/17/17 at 1045, Last dose on Wed10/18/17 at 0900 $ New Bag/Syringe 10/18/2017 8:46 AM CDT 50 g 60 mL/hr $ New Bag/Syringe 10/17/2017 11:47 AM CDT 50 g 60 mL /hr albumin human 5 % infusion 12.5 g 12.5 g, at 240 mL/hr, Intravenous, ONCE, 1 dose, On Wed10/15/17 at 0815 $ New Bag/Syringe 10/15/2017 8:16 AM CDT 12.5 g 240 mL/hr albumin human 5 % infusion 25 g 25 g, at 240 mL/hr, Intravenous, ONCE, 1 dose, On Wed10/15/17 at 0400 $ New Bag/Syringe 10/15/2017 4:07 AM CDT 25 g 240 mL/hr albumin human 5 % infusion 25 g 25 g, at 999 mL/hr, Intravenous, ONCE, 1 dose, On Wed10/27/17 at 1700 $ New Bag/Syringe 10/28/2017 12:26 AM CDT 25 g 999 mL/hr albumin human 5 % infusion 25 g 25 g, at 999 mL/hr, Intravenous, ONCE, 1 dose, On Wed10/27/17 at 1700 $ New Bag/Syringe 10/27/2017 6:45 PM CDT 25 g 999 mL/hr albuterol-ipratropium (DUO-NEB) nebulizer solution 3 mL 3 mL, Inhalation, EVERY 4 HOURS PRN, Shortness of Breath, Wheezing, Starting on Wed10/14/17 at 2227, Until Wed11/03/17 at 1847 artificial tears ophthalmic ointment Each Eye, EVERY 8 HOURS, 1095 doses, First dose on Wed10/19/17 at 1400, Last dose on Wed10/19/18 at 0600 $ Given 10/25/2017 2:32 PM CDT $ Given 10/25/2017 5:06 AM CDT $ Given 10/24/2017 10:00 PM CDT barium (VARIBAR) 40 % liquid SUSR 5 mL 5 mL, Oral, ONCE, 1 dose, On Wed10/29/17 at 1445 $ Given - Contrast 10/29/2017 2:45 PM CDT 30 mL barium (Varibar) 40 % paste PSTE 5 mL 5 mL, Oral, ONCE, 1 dose, On Wed10/29/17 at 1445 $ Given - Contrast 10/29/2017 2:45 PM CDT 30 mL calcium carbonate (TUMS) chew tablet 1 tablet 1 tablet, Oral, ONCE, 1 dose, On Wed10/18/17 at 2345 $ Given 10/19/2017 2:58 AM CDT 1 tablet calcium chloride 1 g in dextrose 5 % 110 mL IVPB Bolus 1 g, at 110 mL/hr, Intravenous, ONCE, 1 dose, On Lida 10/21/17 at 0545 $ New Bag/Syringe 10/21/2017 5:51 AM CDT 1 g 110 mL/hr calcium chloride 1 g in dextrose 5 % 110 mL IVPB Bolus 1 g, at 110 mL/hr, Intravenous, ONCE, 1 dose, On Lida 10/21/17 at 2345, Infuse through central line $ New Bag/Syringe 10/22/2017 12:08 AM CDT 1 g 110 mL/hr calcium chloride 1 g in dextrose 5 % 260 mL IVPB Bolus 1 g, at 130 mL/hr, Intravenous, ONCE, 1 dose, On Wed10/20/17 at 0515 $ New Bag/Syringe 10/20/2017 6:00 AM CDT 1 g 130 mL/hr camphor-menthol (SARNA) lotion Topical, 3 TIMES DAILY PRN, Itching, Starting on Wed11/01/17 at 2115, Until Wed11/03/17 at 1847, Apply to legs and other itchy areas chlorhexidine (PERIDEX) 0.12 % oral solution Mouth/Throat, 2 TIMES DAILY, 730 doses, First dose on Wed10/15/17 at 0900, Last dose on Wed10/14/18 at 2100, 15 mL oral rinse. Swish for 30 seconds and spit. Do not rinse, brush, or eat immediately after use. . WASTE DISPOSAL INSTRUCTIONS: Black Bin Disposal required. $ Given 2017 8:58 AM CDT 15 mL $ Given 10/25/2017 8:47 PM CDT 15 mL $ Given 10/24/2017 9:59 PM CDT 15 mL cosyntropin (CORTROSYN) injection 0.25 mg 0.25 mg, Intravenous, ONCE, 1 dose, On Wed10/31/17 at 0400, Do not administer until after baseline cortisol level has been drawn. IntraMUSCular injection reconstitute with 1 mL NS IntraVENous injection dilute in 2 to 5 mL of NS, inject over 2 min $ Given 10/31/2017 4:03 AM CDT 0.25 mg dextrose IV 12.5-25 g 12.5-25 g (25-50 mL), Intravenous, PRN, Bedside Glucose less than 70 mg/dL -If NOT able to eat and/or NPO and with IV Access, Starting on Wed10/15/17 at 0056, Until Wed11/03/17 at 1847, If NOT able to eat and/or NPO and with IV Access: For Bedside Glucose 50-69 mg/dL give 25 mls D50W IVP STAT For Bedside glucose 50 mg/dL or LESS verify with a second Bedside Glucose (from a different site) and give 50 mls D50W IVP STAT Re-check and Re-treat blood glucose EVERY 10-25 minutes until blood glucose GREATER than or equal to 80 mg/dl. NOTIFY PROVIDER OF HYPOGLYCEMIC EVENT. fentaNYL (PF) (SUBLIMAZE) injection 12.5 mcg 12.5 mcg, Intravenous, ONCE, 1 dose, On Wed10/31/17 at 0545 $ Given 10/31/2017 6:12 AM CDT 12.5 mcg fentaNYL (PF) (SUBLIMAZE) injection 12.5 mcg 12.5 mcg, Intravenous, ONCE, 1 dose, On Wed10/31/17 at 1730 $ Given 10/31/2017 6:00 PM CDT 12.5 mcg fentaNYL (PF) (SUBLIMAZE) injection 25 mcg 25 mcg, Intravenous, EVERY 1 HOUR PRN, Moderate Pain, Severe Pain, Starting on Wed10/19/17 at 1224, Until Wed10/27/17 at 1049 $ Given 10/22/2017 11:09 PM CDT 25 mcg $ Given 10/21/2017 10:38 PM CDT 25 mcg $ Given 10/21/2017 3:04 AM CDT 25 mcg fentaNYL (PF) (SUBLIMAZE) injection 50 mcg 50 mcg, Intravenous, ONCE, 1 dose, On Wed10/15/17 at 1000 $ Given 10/15/2017 10:08 AM CDT 50 mcg fentaNYL (PF) (SUBLIMAZE) injection 50 mcg 50 mcg, Intravenous, EVERY 2 HOURS PRN, Moderate Pain, agitation, Starting on Wed10/16/17 at 0952, Until Wed10/17/17 at 0802 $ Given 10/16/2017 2:18 PM CDT 50 mcg glucagon (GLUCAGEN) injection 1 mg 1 mg, Intramuscular, PRN, Bedside Glucose less than 70 mg/dL - If NOT able to eat and/or NPO and withOUT IV Access, Starting on Wed10/15/17 at 0056, Until Wed11/03/17 at 1847, If NOT able to eat and/or NPO and NO IV Access: For Bedside glucose 50-69 mg/dL Give 1 mg IM or SQ For Bedside Glucose LESS than 50 mg/dl verify with a second bedside glucose (from a different site) and Give 1 mg IM or SQ Re-check and Re-treat blood glucose EVERY 10-25 minutes until blood glucose GREATER than or equal to 80 mg/dl. NOTIFY PROVIDER OF HYPOGLYCEMIC EVENT. Reconstitute vial with 1 mL of sterile water for injection for a final concentration of 1 mg/mL; shake vial gently; use immediately and discard unused portion glucose (Diabetic Use) oral gel Oral, PRN, Other, Bedside Glucose less than 70 mg/dL -If able to eat and does not have swallowing difficulties, Starting on Wed10/15/17 at 0056, Until Wed11/03/17 at 1847, If able to eat and does not have swallowing difficulties: For Bedside Glucose 50 - 69 mg/dL Give 15 grams of oral carbohydrates - 1 glucose gel (see MAR) If patient refuses glucose gel, then offer: - 4 ounces of fruit juice OR - 4 ounces non-diet soda OR - 8 ounces of fat-free milk For Bedside Glucose LESS than 50 mg/dL verify with a second Bedside Glucose (from a different site) - If pt is symptomatic, do not delay treatment If the patient is exhibiting symptoms which are not consistent with the results obtained, confirm the glucose with a STAT laboratory test. Give 30 grams of oral carbohydrates - 2 glucose gels (see MAR) If patient refuses glucose gel, then offer: - 8 ounces of fruit juice OR - 8 ounces non-diet soda OR - 16 ounces of fat-free milk Re-check and Re-treat blood glucose EVERY 10-25 minutes until blood glucose GREATER than or equal to 80 mg/dl. NOTIFY PROVIDER OF HYPOGLYCEMIC EVENT. heparin injection 4,100 Units 4,100 Units, Intracatheter, POST-PROCEDURE MULTIPLE, Starting on Wed11/01/17 at 1537, Until Wed11/03/17 at 1847, For dialysis catheter dwell post dialysis 2.0ml arterial 2.1ml venous $ Given 11/01/2017 4:09 PM CDT 4,100 Units heparin injection 5,000 Units 5,000 Units, Subcutaneous, EVERY 8 HOURS, 1095 doses, First dose on Wed10/15/17 at 1400, Last dose on Wed10/15/18 at 0600 $ Given 10/17/2017 11:21 PM CDT 5,000 Units Right Arm $ Given 10/17/2017 3:40 PM CDT 5,000 Units A bd Right Lower Quadrant $ Given 10/17/2017 6:13 AM CDT 5,000 Units R ight Arm heparin injection 5,000 Units 5,000 Units, Subcutaneous, 2 TIMES DAILY, 730 doses, First dose on Wed10/21/17 at 1315, Last dose on Wed10/20/18 at 2100 $ Given 10/23/2017 8:00 AM CDT 5,000 Units Abdominal Tissue $ Given 10/22/2017 9:36 AM CDT 5,000 Units A bdominal Tissue $ Given 10/21/2017 8:54 PM CDT 5,000 Units A bdominal Tissue heparin injection 5,000 Units 5,000 Units, Subcutaneous, EVERY 8 HOURS, 1095 doses, First dose on Wed10/25/17 at 1400, Last dose on Wed10/25/18 at 0600 $ Given 2017 1:57 PM CDT 5,000 Units Abd Right Lower Quadrant $ Given 2017 5:48 AM CDT 5,000 Units A bd Right Lower Quadrant $ Given 10/25/2017 8:48 PM CDT 5,000 Units A bd Left Lower Quadrant heparin injection ONCE PRN, Starting on Wed10/28/17 at 1438, Until Wed10/28/17 at 1438 $ Given 10/28/2017 2:38 PM CDT 7,000 Units heparinized saline 2 units/ml infusion CONTINUOUS PRN, Starting on Wed10/28/17 at 1431, Until Wed10/28/17 at 1431 $ New Bag/Syringe 10/28/2017 2:31 PM CDT 500 mL hydrocortisone (CORTEF) tablet 10 mg 10 mg, Oral, DAILY, 361 doses, First dose (after last modification) on Wed11/01/17 at 0900, Last dose on Wed10/27/18 at 0900 $ Given 11/02/2017 8:18 AM CDT 10 mg $ Given 11/01/2017 8:42 AM CDT 10 mg hydrocortisone (CORTEF) tablet 15 mg 15 mg, Oral, DAILY, 365 doses, First dose on Wed10/28/17 at 1130, Last dose on Wed10/27/18 at 0900 $ Given 10/31/2017 9:49 AM CDT 15 mg $ Given 10/30/2017 10:30 AM CDT 15 mg hydrocortisone (CORTEF) tablet 5 mg 5 mg, Oral, DAILY, 359 doses, First dose (after last modification) on Wed11/03/17 at 0900, Last dose on Wed10/27/18 at 0900 $ Given 11/03/2017 8:42 AM CDT 5 mg hydrocortisone sodium succinate PF (Solu-CORTEF) injection 50 mg 50 mg, Intravenous, EVERY 8 HOURS, 1095 doses, First dose on Wed10/15/17 at 0600, Last dose on Wed10/14/18 at 2200 $ Given 10/18/2017 6:12 AM CDT 50 mg $ Given 10/17/2017 11:21 PM CDT 50 mg $ Given 10/17/2017 3:39 PM CDT 50 mg hydrocortisone sodium succinate PF (Solu-CORTEF) injection 50 mg 50 mg, Intravenous, ONCE, 1 dose, On Wed10/15/17 at 0415 $ Given 10/15/2017 4:11 AM CDT 50 mg hydrocortisone sodium succinate PF (Solu-CORTEF) injection 50 mg 50 mg, Intravenous, EVERY 12 HOURS, 3 doses, First dose (after last modification) on Wed10/18/17 at 2100, Last dose on Wed10/19/17 at 2100 $ Given 10/19/2017 8:55 PM CDT 50 mg $ Given 10/19/2017 8:27 AM CDT 50 mg $ Given 10/18/2017 9:18 PM CDT 50 mg hydrocortisone sodium succinate PF (Solu-CORTEF) injection 50 mg 50 mg, Intravenous, EVERY 12 HOURS, 10 doses, First dose on Wed10/23/17 at 1130, Last dose on Wed10/27/17 at 2100 $ Given 10/23/2017 11:25 AM CDT 50 mg hydrocortisone sodium succinate PF (Solu-CORTEF) injection 50 mg 50 mg, Intravenous, EVERY 6 HOURS, First dose (after last modification) on Wed10/23/17 at 1800, Until Discontinued $ Given 10/25/2017 5:06 AM CDT 50 mg $ Given 10/25/2017 12:24 AM CDT 50 mg $ Given 10/24/2017 6:45 PM CDT 50 mg hydrocortisone sodium succinate PF (Solu-CORTEF) injection 50 mg 50 mg, Intravenous, EVERY 12 HOURS, First dose (after last modification) on Wed10/25/17 at 2100, Until Discontinued $ Given 2017 8:55 AM CDT 50 mg $ Given 10/25/2017 8:47 PM CDT 50 mg hydrocortisone sodium succinate PF (Solu-CORTEF) injection 50 mg 50 mg, Intravenous, DAILY, 3 doses, First dose (after last modification) on Wed10/27/17 at 0900, Last dose on Wed10/29/17 at 0900 $ Given 10/28/2017 8:18 AM CDT 50 mg $ Given 10/27/2017 8:35 AM CDT 50 mg insulin aspart (NovoLOG) pen 0-6 Units 0-6 Units, Subcutaneous, EVERY 4 HOURS, 2190 doses, First dose on Wed10/15/17 at 0400, Last dose on Wed10/15/18 at 0000, . 150-200 = 0 unit 201-250 = 2 units 251-300 = 3 units 301-350 = 4 units 351-400 = 5 units GREATER than 400 = 6 units and call $ Given 10/25/2017 12:32 AM CDT 2 Units Abdo iain Tissue $ Given 10/24/2017 10:00 PM CDT 2 Units A bdominal Tissue $ Given 10/24/2017 10:05 AM CDT 2 Units A bdominal Tissue insulin aspart (NovoLOG) pen 0-6 Units 0-6 Units, Subcutaneous, EVERY 6 HOURS, First dose (after last modification) on Wed10/25/17 at 1200, Until Discontinued, . 150-200 = 0 unit 201-250 = 2 units 251-300 = 3 units 301-350 = 4 units 351-400 = 5 units GREATER than 400 = 6 units and call $ Given 10/28/2017 1:28 AM CDT 2 Units Abd Right Lower Quad rant $ Given 10/27/2017 12:45 AM CDT 2 Units L eft Arm $ Given 2017 5:45 PM CDT 2 Units Ri ght Leg insulin aspart (NovoLOG) pen 0-6 Units 0-6 Units, Subcutaneous, 4 TIMES DAILY - BEFORE MEALS AND AT BEDTIME, First dose (after last modification) on Wed11/01/17 at 2100, Until Discontinued, . 150-200 = 0 unit 201-250 = 2 units 251-300 = 3 units 301-350 = 4 units 351-400 = 5 units GREATER than 400 = 6 units and call iopamidol (ISOVUE 370) 76 % contrast Intravenous, CONTRAST ONCE, Starting on Wed10/15/17 at 1050, Until 10/17/17 at 1049 $ Given - Contrast 10/15/2017 11:20 AM CDT 100 mL K phos & NA phos (K PHOS NEUTRAL) tablet 1 tablet 1 tablet, Oral, EVERY 4 HOURS, 2 doses, First dose on Wed10/25/17 at 0400, Last dose on Wed10/25/17 at 0800, Contains Phos 8 mmol, K+ 1.1 mEq, Na 13 mEq per tablet $ Given 10/25/2017 4:00 AM CDT 1 tablet K phos & NA phos (K PHOS NEUTRAL) tablet 1 tablet 1 tablet, Enteral Tube, EVERY 4 HOURS, 1 dose, First dose (after last modification) on Wed10/25/17 at 0800, Contains Phos 8 mmol, K+ 1.1 mEq, Na 13 mEq per tablet $ Given 10/25/2017 8:18 AM CDT 1 tablet OG Tube K phos & NA phos (K PHOS NEUTRAL) tablet 2 tablet 2 tablet, Oral, ONCE, 1 dose, On Wed10/27/17 at 0115, Contains Phos 8 mmol, K+ 1.1 mEq, Na 13 mEq per tablet $ Given 10/27/2017 4:37 AM CDT 2 tablets lactated ringers IV bolus 1,000 mL, at 3,750 mL/hr, Administer over 16 Minutes, ONCE, 1 dose, On Wed10/15/17 at 0400 $ New Bag/Syringe 10/15/2017 3:57 AM CDT 1,000 mL 3750 mL/hr lactated ringers IV bolus 1,000 mL, at 495.87 mL/hr, Administer over 121 Minutes, ONCE, 1 dose, On Wed10/16/17 at 0815 $ New Bag/Syringe 10/16/2017 9:02 AM CDT 1,000 mL 495.87 mL/hr lactulose (CHRONULAC) solution 10 g 10 g, Oral, 3 TIMES DAILY, 1095 doses, First dose on 10/16/17 at 1615, Last dose on 10/16/18 at 0900, Hold for >4 BM/day $ Given 10/20/2017 8:04 AM CDT 10 g $ Given 10/19/2017 8:55 PM CDT 10 g $ Given 10/19/2017 2:34 PM CDT 10 g lactulose (CHRONULAC) solution 10 g 10 g, Enteral Tube, AT BEDTIME, 30 doses, First dose (after last modification) on Wed10/20/17 at 2100, Last dose on Wed11/18/17 at 2100, Hold for >4 BM/day $ Given 10/24/2017 9:59 PM CDT 10 g OG T ube $ Given 10/23/2017 9:16 PM CDT 10 g OG Tube $ Given 10/22/2017 8:50 PM CDT 10 g OG Tube lactulose (CHRONULAC) solution 10 g 10 g, Enteral Tube, AT BEDTIME, First dose (after last modification) on Wed10/25/17 at 2100, Until Discontinued, TITRATE to 3 soft BM/day. Hold for >4 BM/day $ Given 2017 8:11 PM CDT 10 g NG Tu be $ Given 10/25/2017 9:49 PM CDT 10 g NG Tube lactulose (CHRONULAC) solution 10 g 10 g, Enteral Tube, 2 TIMES DAILY, First dose (after last modification) on Wed10/27/17 at 2100, Until Discontinued, TITRATE to 3 soft BM/day. Hold for >4 BM/day $ Given 10/31/2017 9:43 PM CDT 10 g NG Tube $ Given 10/31/2017 9:46 AM CDT 10 g NG Tube $ Given 10/30/2017 8:07 PM CDT 10 g OG Tube lactulose (CHRONULAC) solution 10 g 10 g, Oral, 2 times daily (0900 and 1500), First dose (after last modification) on Wed11/01/17 at 0900, Until Discontinued, TITRATE to 3 soft BM/day. Hold for >4 BM/day $ Given 11/03/2017 8:42 AM CDT 10 g $ Given 11/02/2017 8:18 AM CDT 10 g $ Given 11/01/2017 5:21 PM CDT 10 g lidocaine (XYLOCAINE MPF) 1 % injection Infiltration, ONCE, 1 dose, On Wed10/19/17 at 1430, For PARACENTESIS today $ Given 10/19/2017 2:26 PM CDT 300 mg lidocaine (XYLOCAINE MPF) 1% injection ADS Med 1 dose, Starting on Wed10/15/17 at 0230, Until Wed10/15/17 at 0304, Kendall Norman*: cabinet override $ Given 10/15/2017 3:04 AM CDT 300 mg lidocaine (XYLOCAINE) 1 % injection Subcutaneous, ONCE PRN, Starting on Wed10/28/17 at 1432, Until Wed10/28/17 at 1432 $ Given 10/28/2017 2:32 PM CDT 10 mL See Comments lidocaine (XYLOCAINE) 2% injection ADS Med 1 dose, Starting on Wed10/15/17 at 0007, Until Wed10/15/17 at 0233, Maddy Norman*: cabinet override $ Given 10/15/2017 2:33 AM CDT melatonin tablet 3 mg 3 mg, Oral, ONCE, 1 dose, On Wed10/22/17 at 2100 $ Given 10/22/2017 8:51 PM CDT 3 mg melatonin tablet 3 mg 3 mg, Oral, AT BEDTIME, 365 doses, First dose on Wed10/24/17 at 0245, Last dose on Wed10/22/18 at 2100 $ Given 2017 8:11 PM CDT 3 mg $ Given 10/25/2017 9:50 PM CDT 3 mg $ Given 10/24/2017 9:59 PM CDT 3 mg midodrine (PROAMATINE) tablet 10 mg 10 mg, Oral, EVERY 8 HOURS, 1091 doses, First dose (after last modification) on Wed10/16/17 at 1400, Last dose on Wed10/14/18 at 2200, Do not administer after evening meal or less than 4 hours before bedtime $ Given 10/17/2017 6:13 AM CDT 10 mg $ Given 10/16/2017 9:55 PM CDT 10 mg $ Given 10/16/2017 2:03 PM CDT 10 mg midodrine (PROAMATINE) tablet 10 mg 10 mg, Oral, EVERY 8 HOURS, 1058 doses, First dose (after last modification) on Wed10/27/17 at 1400, Last dose on Wed10/14/18 at 2200, Do not administer after evening meal or less than 4 hours before bedtime $ Given 11/01/2017 6:42 AM CDT 10 mg $ Given 10/31/2017 9:44 PM CDT 10 mg $ Given 10/31/2017 3:08 PM CDT 10 mg midodrine (PROAMATINE) tablet 15 mg 15 mg, Oral, EVERY 8 HOURS, 1088 doses, First dose (after last modification) on Wed10/17/17 at 1400, Last dose on Wed10/14/18 at 2200, Do not administer after evening meal or less than 4 hours before bedtime $ Given 10/27/2017 6:20 AM CDT 15 mg $ Given 2017 8:11 PM CDT 15 mg $ Given 2017 1:58 PM CDT 15 mg midodrine (PROAMATINE) tablet 15 mg 15 mg, Oral, EVERY 8 HOURS, 1042 doses, First dose (after last modification) on Wed11/01/17 at 2200, Last dose on Wed10/14/18 at 2200, Do not administer after evening meal or less than 4 hours before bedtime $ Given 11/03/2017 2:08 PM CDT 15 mg $ Given 11/03/2017 5:22 AM CDT 15 mg $ Given 11/02/2017 9:00 PM CDT 15 mg midodrine (PROAMATINE) tablet 5 mg 5 mg, Oral, EVERY 8 HOURS, 1095 doses, First dose on Wed10/15/17 at 1000, Last dose on Wed10/14/18 at 2200, Do not administer after evening meal or less than 4 hours before bedtime $ Given 10/16/2017 5:07 AM CDT 5 mg $ Given 10/15/2017 10:07 PM CDT 5 mg norepinephrine (LEVOPHED) 8 mg/250 ml D5 infusion premix ADS Med 1 dose, Starting on Wed10/14/17 at 2143, Until Wed10/14/17 at 2334, Maddy Norman*: cabinet override norepinephrine (LEVOPHED) 8 mg/250 ml D5 infusion premix 0-0.4 mcg/kg/min ? 45.7 kg (0-34.275 mL/hr, rounded to 0-34.28 mL/hr), Intravenous, CONTINUOUS, Starting on Lida 10/14/17 at 2200, Until Wed10/26/17 at 1147, Titration Parameters: Standard Parameters, Indication: Hypotension, Initiate infusion at: 0.05 mcg/kg/min, Titrate infusion by: If current rate 0.01 to 0.1 mcg/kg/min, titrate by 0.01 mcg/kg/min. If current rate 0.11 to 0.3 mcg/kg/min, titrate by 0.02 mcg/kg/min. If current rate 0.31 mcg/kg/min to the max ordered dose, titrate by 0.05 mcg/kg/min., Titrate every: 1 minute, To maintain a: MAP greater than or equal to 65 mmHg, Notify physician if: MAP less than 65 mmHg despite max dose $ New Bag/Syringe 10/23/2017 10:23 PM CDT 0.01 mcg/kg/min 0.86 mL/hr Rate Change 10/23/2017 9:15 PM CDT 0.02 mcg/kg/min 1.71 mL /hr Rate Change 10/23/2017 8:30 PM CDT 0.04 mcg/kg/min 3.43 mL /hr octreotide (SandoSTATIN) injection 100 mcg 100 mcg, Subcutaneous, 3 TIMES DAILY, 1095 doses, First dose on Wed10/18/17 at 1500, Last dose on Wed10/18/18 at 0900 $ Given 10/25/2017 8:17 AM CDT 100 mcg Right Arm $ Given 10/24/2017 9:59 PM CDT 100 mcg Ab dominal Tissue $ Given 10/24/2017 3:14 PM CDT 100 mcg Ab dominal Tissue oxyCODONE (immediate release) (ROXICODONE) tablet 5 mg 5 mg, Oral, ONCE, 1 dose, On 11/01/17 at 2145 $ Given 11/01/2017 9:28 PM CDT 5 mg oxyCODONE-acetaminophen (PERCOCET) 5-325 MG tablet 1 tablet 1 tablet, Oral, ONCE, 1 dose, On Wed10/31/17 at 2215 $ Given 10/31/2017 10:56 PM CDT 1 tablet pantoprazole (PROTONIX) injection 40 mg 40 mg, Intravenous, DAILY, 365 doses, First dose on Wed10/15/17 at 0900, Last dose on Wed10/14/18 at 0900, For every 40 mg of pantoprazole mix with 10 mL Normal Saline (final concentration = 4 mg/mL). Inject SLOWLY over 2 min. $ Given 10/15/2017 9:00 AM CDT 40 mg pantoprazole (PROTONIX) injection 40 mg 40 mg, Intravenous, DAILY, 365 doses, First dose on Wed10/16/17 at 0900, Last dose on Wed10/15/18 at 0900, For every 40 mg of pantoprazole mix with 10 mL Normal Saline (final concentration = 4 mg/mL). Inject SLOWLY over 2 min. $ Given 10/25/2017 8:18 AM CDT 40 mg $ Given 10/24/2017 10:03 AM CDT 40 mg $ Given 10/23/2017 8:00 AM CDT 40 mg pantoprazole (PROTONIX) injection 40 mg 40 mg, Intravenous, 2 TIMES DAILY, 730 doses, First dose on Wed10/28/17 at 1330, Last dose on Wed10/27/18 at 2100, For every 40 mg of pantoprazole mix with 10 mL Normal Saline (final concentration = 4 mg/mL). Inject SLOWLY over 2 min. $ Given 10/31/2017 9:44 PM CDT 40 mg $ Given 10/31/2017 9:47 AM CDT 40 mg $ Given 10/30/2017 8:08 PM CDT 40 mg pantoprazole EC (PROTONIX) tablet 40 mg 40 mg, Oral, DAILY, 365 doses, First dose on Wed11/01/17 at 0900, Last dose on Wed10/31/18 at 0900, Do not crush, chew, or cut in half. $ Given 11/03/2017 8:42 AM CDT 40 mg $ Given 11/02/2017 8:18 AM CDT 40 mg $ Given 11/01/2017 8:42 AM CDT 40 mg perflutren Lipid Microsphere (DEFINITY) injection SUSP 0.5 mL 0.5 mL, Intravenous, INTRA-PROCEDURE MULTIPLE, 6 doses, Starting on Wed10/15/17 at 0809, Until Wed10/26/17 at 1144, For Echo Procedure - Per Protocol Give slowly Shake well before using. $ Given 10/15/2017 10:00 AM CDT 0.5 mL phenylephrine 100 mcg/ml prefilled syringe 100 mcg 100 mcg, Intravenous, ONCE, 1 dose, On Wed10/18/17 at 1230 $ Given 10/18/2017 2:00 PM CDT 100 mcg phenylephrine 100 mcg/mL prefilled syringe ADS Med 1 dose, Starting on Wed10/18/17 at 1200, Until Wed10/18/17 at 1400, Anabella Jerez*: cabinet override phytonadione (MEPHYTON) tablet 10 mg 10 mg, Enteral Tube, ONCE, 1 dose, On Wed10/21/17 at 1300, Max dose 10mg/dose, 30mg/day $ Given 10/21/2017 2:33 PM CDT 10 mg OG Tube phytonadione (MEPHYTON) tablet 10 mg 10 mg, Enteral Tube, ONCE, 1 dose, On Wed10/21/17 at 1545, Max dose 10mg/dose, 30mg/day $ Given 10/21/2017 4:22 PM CDT 10 mg OG Tube phytonadione (MEPHYTON) tablet 5 mg 5 mg, Enteral Tube, ONCE, 1 dose, On Wed10/19/17 at 0800, Max dose 10mg/dose, 30mg/day $ Given 10/19/2017 8:27 AM CDT 5 mg OG Tube phytonadione (VITAMIN K) 10 mg in dextrose 5 % 50 mL IVPB 10 mg, at 150 mL/hr, Intravenous, DAILY, 3 doses, First dose on Wed10/16/17 at 1330, Last dose on Wed10/18/17 at 0900 $ New Bag/Syringe 10/18/2017 8:53 AM CDT 10 mg 150 mL/hr $ New Bag/Syringe 10/17/2017 9:44 AM CDT 10 mg 150 mL /hr $ New Bag/Syringe 10/16/2017 1:58 PM CDT 10 mg 150 mL /hr piperacillin - tazobactam (ZOSYN) 3.375 g in 0.9% NaCl 100 mL IVPB 3.375 g, at 25 mL/hr, Intravenous, EVERY 8 HOURS, 28 doses, First dose on Wed10/14/17 at 2200, Last dose on Wed10/23/17 at 2200, Indication for anti-infective therapy: Suspected infection, Site of anti-infective therapy: Blood $ New Bag/Syringe 10/23/2017 9:59 PM CDT 3.375 g 25 mL/hr $ New Bag/Syringe 10/23/2017 2:29 PM CDT 3.375 g 25 mL/ hr $ New Bag/Syringe 10/23/2017 5:41 AM CDT 3.375 g 25 mL/ hr polyethyl glycol-propyl glycol (SYSTANE) 0.4-0.3 % ophth solution 1 drop 1 drop, Each Eye, EVERY 8 HOURS, 1095 doses, First dose (after last reorder) on Wed10/15/17 at 0900, Last dose on 10/15/18 at 0100 $ Given 2017 12:09 AM CDT 1 drop $ Given 10/25/2017 5:33 PM CDT 1 drop $ Given 10/25/2017 12:21 PM CDT 1 drop potassium chloride (KLOR-CON M) tablet 40 mEq 40 mEq, Oral, ONCE, 1 dose, On 10/30/17 at 1600, Do not crush or chew. $ Given 10/30/2017 5:19 PM CDT 40 mEq potassium chloride (KLOR-CON) packet 20 mEq 20 mEq, Oral, ONCE, 1 dose, On 10/30/17 at 0730, DISSOLVE IN 120 ML OF COLD WATER OR JUICE AND DRINK SLOWLY $ Given 10/30/2017 7:41 AM CDT 20 mEq potassium chloride 20 mEq in 100 mL SW bolus 20 mEq, at 50 mL/hr, Administer over 2 Hours, Intravenous, ONCE, 1 dose, On [place] 10/14/17 at 2330, Administer through Central Line only $ New Bag/Syringe 10/14/2017 11:56 PM CDT 20 mEq 50 mL/hr potassium chloride 20 mEq in 100 mL SW bolus 20 mEq, at 50 mL/hr, Administer over 2 Hours, Intravenous, ONCE, 1 dose, On Wed10/15/17 at 0700 $ New Bag/Syringe 10/15/2017 6:40 AM CDT 20 mEq 50 mL/hr potassium chloride 40 mEq in 0.9% NaCl 270 mL bolus 40 mEq, at 67.5 mL/hr, Administer over 4 Hours, Intravenous, ONCE, 1 dose, On [facility] 10/20/17 at 2315 $ New Bag/Syringe 10/21/2017 3:05 AM CDT 40 mEq 67.5 mL/hr potassium phosphate 15 mmol in dextrose 5 % 255 mL bolus 15 mmol, at 63.75 mL/hr, Administer over 4 Hours, Intravenous, NOW, 1 dose, On Wed10/20/17 at 1045, 3 mmol phosphate = 4.4 mEq potassium $ New Bag/Syringe 10/20/2017 11:52 AM CDT 15 mmol 63.75 mL/hr potassium phosphate 30 mmol in dextrose 5 % 260 mL bolus 30 mmol, at 43.33 mL/hr, Administer over 6 Hours, Intravenous, ONCE, 1 dose, On Wed10/20/17 at 2045, 3 mmol phosphate = 4.4 mEq potassium $ New Bag/Syringe 10/20/2017 8:46 PM CDT 30 mmol 43.33 mL/hr PRISMASOL BGK 4/2.5 crrt solution ADS Med 1 dose, Starting on Wed10/18/17 at 1454, Until Wed10/18/17 at 1508, Tata Aggarwal: cabinet override Break seal between compartments and mix thoroughly Base Solution Contains: - Calcium 2.5 meq/L - Magnesium 1.5 meq/L - Sodium 140 meq/L - Potassium 4 meq/L - Chloride 113 meq/L - Lactate 3 meq/L - Bicarbonate 32 meq/L - Glucose 100 mg/dL - Osmolarity 300 mOsm/L $ Given 10/18/2017 3:08 PM CDT 5,000 mL Port $ Given 10/18/2017 3:07 PM CDT 5,000 mL Po rt $ Given 10/18/2017 3:03 PM CDT 5,000 mL Po rt PRISMASOL BGK 4/2.5 crrt solution 5,000 mL, CRRT, PRN, CRRT, Starting on Wed10/18/17 at 1509, Until Wed10/27/17 at 1049, Flow rate 1.5 L / hour Break seal between compartments and mix thoroughly Base Solution Contains: - Calcium 2.5 meq/L - Magnesium 1.5 meq/L - Sodium 140 meq/L - Potassium 4 meq/L - Chloride 113 meq/L - Lactate 3 meq/L - Bicarbonate 32 meq/L - Glucose 100 mg/dL - Osmolarity 300 mOsm/L $ Given 2017 10:09 AM CDT 5,000 mL $ Given 2017 10:08 AM CDT 5,000 mL $ Given 2017 10:05 AM CDT 5,000 mL propofol (DIPRIVAN) 1000 mg in 100 mL infusion ADS Med 1 dose, Starting on Lida 10/14/17 at 2143, Until L[place] 10/14/17 at 2224, Maddy Norman*: cabinet override Vial and Tubing should be changed and/or discarded every 12 hours. propofol (DIPRIVAN) infusion 0-50 mcg/kg/min ? 45.7 kg (0-13.71 mL/hr), Intravenous, CONTINUOUS, Starting on Lida 10/14/17 at 2200, Until 10/16/17 at 0947, Vial and Tubing should be changed and/or discarded every 12 hours., Titration Parameters: Standard Parameters, Indication: Sedation, Initiate infusion at: 5 mcg/kg/min, Titrate infusion by: 5 mcg/kg/min, Titrate every: 2 minutes, To maintain a: RASS score of 0 to -1 = Alert and Calm to Drowsy, Notify physician if: Unachievable RASS goal despite max dose Rate Change 10/16/2017 8:45 AM CDT 20 mcg/kg/min 5.48 mL/hr Restarted 10/16/2017 3:11 AM CDT 30 mcg/kg/min 8.23 mL/hr Rate Change 10/15/2017 10:32 PM CDT 30 mcg/kg/min 8.23 mL/ hr QUEtiapine (SEROquel) tablet 25 mg 25 mg, Oral, AT BEDTIME, 365 doses, First dose on Wed10/27/17 at 2100, Last dose on Wed10/26/18 at 2100 $ Given 11/02/2017 9:00 PM CDT 25 mg $ Given 11/01/2017 9:22 PM CDT 25 mg $ Given 10/31/2017 9:44 PM CDT 25 mg sodium bicarbonate 8.4 % 150 mEq in dextrose 5 % 1,000 mL infusion (fluid) 100 mL/hr, Intravenous, CONTINUOUS, Starting on 10/17/17 at 0815, Until 10/17/17 at 1814 $ New Bag/Syringe 10/17/2017 9:44 AM CDT 100 mL/hr 100 mL/hr sodium phosphate 15 mmol in dextrose 5 % 255 mL bolus 15 mmol, at 42.5 mL/hr, Administer over 6 Hours, Intravenous, ONCE, 1 dose, On Wed10/22/17 at 1615 $ New Bag/Syringe 10/22/2017 5:32 PM CDT 15 mmol 42.5 mL/hr sodium phosphate 15 mmol in dextrose 5 % 255 mL bolus 15 mmol, at 42.5 mL/hr, Administer over 6 Hours, Intravenous, ONCE, 1 dose, On Wed10/27/17 at 0730 $ New Bag/Syringe 10/27/2017 8:36 AM CDT 15 mmol 42.5 mL/hr sodium phosphate 30 mmol in dextrose 5 % 260 mL bolus 30 mmol, at 43.33 mL/hr, Administer over 6 Hours, Intravenous, ONCE, 1 dose, On [place] 10/21/17 at 1700 $ New Bag/Syringe 10/21/2017 5:58 PM CDT 30 mmol 43.33 mL/hr vancomycin (VANCOCIN) 750 mg in 0.9% NaCl 250 mL IVPB 750 mg, at 333.33 mL/hr, Intravenous, ONCE, 1 dose, On [place] 10/14/17 at 2330, Indication for anti-infective therapy: Suspected infection, Site of anti-infective therapy: Blood $ New Bag/Syringe 10/15/2017 12:39 AM CDT 750 mg 333.33 mL/hr vancomycin (VANCOCIN) 750 mg in 0.9% NaCl 250 mL IVPB 750 mg, at 333.33 mL/hr, Intravenous, EVERY 24 HOURS, 7 doses, First dose on Wed10/15/17 at 1600, Last dose on Wed10/21/17 at 1600, Indication for anti-infective therapy: Suspected infection, Site of anti-infective therapy: Blood $ New Bag/Syringe 10/16/2017 5:15 PM CDT 750 mg 333.33 mL/hr $ New Bag/Syringe 10/15/2017 6:32 PM CDT 750 mg 333.33 mL/hr vasopressin (VASOSTRICT) 40 Units in dextrose 5 % 40 mL infusion 0-0.04 Units/min (0-2.4 mL/hr), Intravenous, CONTINUOUS, Starting on 10/16/17 at 0830, Until 10/18/17 at 1258, Titration Parameters: Fixed Dose, Indication: Hypotension, Initiate infusion at: 0.04 units/min, Titrate to: Do not titrate. Physician order required for rate change., Notify physician if: MAP less than 65 mmHg $ New Bag/Syringe 10/18/2017 6:11 AM CDT 0.04 Units/min 2.4 mL/hr Rate Change 10/17/2017 10:08 PM CDT 0.04 Units/min 2.4 mL/ hr $ New Bag/Syringe 10/17/2017 9:00 PM CDT 0.03 Units/min 1. 8 mL/hr documented in this encounter Active and Recently Administered Medications Times are shown in CDT. Scheduled Medication Order 11/01/2017 11/02/2017 11/03/2017 acetaminophen (TYLENOL) tablet 500 mg (COMPLETED) 500 mg, Oral, ONCE, 1 dose, On Wed11/01/17 at 1945, Will try tylenol first for pain 1957 ($ Given - Provider: Christina Fischer RN) heparin injection 4,100 Units 4,100 Units, Intracatheter, POST-PROCEDURE MULTIPLE, Starting on Wed11/01/17 at 1537, Until Wed11/03/17 at 1847, For dialysis catheter dwell post dialysis 2.0ml arterial 2.1ml venous 1609 ($ Given - Provider: Lashon Stein RN - Comment: Barcode not readable) hydrocortisone (CORTEF) tablet 10 mg (CANCELED) 10 mg, Oral, DAILY, 361 doses, First dose (after last modification) on Wed11/01/17 at 0900, Last dose on Wed10/27/18 at 0900 0842 ($ Given - Provider: Mae Sahni RN) 0818 ($ Given - Provider: Melinda Mayes, ALEJANDRO) hydrocortisone (CORTEF) tablet 5 mg 5 mg, Oral, DAILY, 359 doses, First dose (after last modification) on Wed11/03/17 at 0900, Last dose on Wed10/27/18 at 0900 0842 ($ Given - Provider: Melinda Mayes, ALEJANDRO) insulin aspart (NovoLOG) pen 0-6 Units 0-6 Units, Subcutaneous, 4 TIMES DAILY - BEFORE MEALS AND AT BEDTIME, First dose (after last modification) on Wed11/01/17 at 2100, Until Discontinued, . 150-200 = 0 unit 201-250 = 2 units 251-300 = 3 units 301-350 = 4 units 351-400 = 5 units GREATER than 400 = 6 units and call MD Jin1 (Not Administered - Provider: Christina Fischer RN - Reason: Per Administration Instructions) 0917 (Not Administered - Provider: Melinda Mayes RN - Reason: Per Administration Instructions)1413 (Not Administered - Provider: Melinda Mayes RN - Reason: Per Administration Instructions - Comment: [phone] (Not Administered - Provider: Melinda Mayes RN - Reason: Per Administration Instructions)2157 (Not Administered - Provider: Lauren Tobin RN - Reason: Per Administration Instructions) 0836 (Not Administered - Provider: Melinda Mayes RN - Reason: Per Administration Instructions)1341 (Not Administered - Provider: Melinda Mayes RN - Reason: Per Administration Instructions - Comment: [phone] (Due) lactulose (CHRONULAC) solution 10 g 10 g, Oral, 2 times daily (0900 and 1500), First dose (after last modification) on Wed11/01/17 at 0900, Until Discontinued, TITRATE to 3 soft BM/day. Hold for >4 BM/day 0842 ($ Given - Provider: Mae Sahni RN)1721 ($ Given - Provider: Mae Sahni RN) 0818 ($ Given - Provider: Melinda Mayes RN)1453 (Not Administered - Provider: Melinda Mayes RN - Reason: See Comments - Comment: Patient has had three bowel movements.) 0842 ($ Given - Provider: Melinda Mayes RN)1632 (Not Administered - Provider: Melinda Mayes RN - Reason: See Comments - Comment: Pt being discharged) midodrine (PROAMATINE) tablet 10 mg (CANCELED) 10 mg, Oral, EVERY 8 HOURS, 1058 doses, First dose (after last modification) on Wed10/27/17 at 1400, Last dose on Wed10/14/18 at 2200, Do not administer after evening meal or less than 4 hours before bedtime 0642 ($ Given - Provider: Christina Fischer RN)1615 (Not Administered - Provider: Mae Sahni RN - Reason: Discontinued by physician) midodrine (PROAMATINE) tablet 15 mg 15 mg, Oral, EVERY 8 HOURS, 1042 doses, First dose (after last modification) on Wed11/01/17 at 2200, Last dose on Wed10/14/18 at 2200, Do not administer after evening meal or less than 4 hours before bedtime 2122 ($ Given - Provider: Christina Fischer RN) 0655 ($ Given - Provider: Christina Fischer RN)1459 ($ Given - Provider: Melinda Mayes, RN)2100 ($ Given - Provider: Lauren Tobin, RN) 0522 ($ Given - Provider: Lauren Tobin, ALEJANDRO)1408 ($ Given - Provider: Melinda Mayse, ALEJANDRO) oxyCODONE (immediate release) (ROXICODONE) tablet 5 mg (COMPLETED) 5 mg, Oral, ONCE, 1 dose, On Wed11/01/17 at 2145 2128 ($ Given - Provider: Christina Fischer RN) pantoprazole EC (PROTONIX) tablet 40 mg 40 mg, Oral, DAILY, 365 doses, First dose on Wed11/01/17 at 0900, Last dose on Wed10/31/18 at 0900, Do not crush, chew, or cut in half. 0842 ($ Given - Provider: Mae Sahni RN) 0818 ($ Given - Provider: Melinda Mayes, ALEJANDRO) 0842 ($ Given - Provider: Melinda Mayes, ALEJANDRO) QUEtiapine (SEROquel) tablet 25 mg 25 mg, Oral, AT BEDTIME, 365 doses, First dose on Wed10/27/17 at 2100, Last dose on Wed10/26/18 at 2100 2122 ($ Given - Provider: Christina Fischer RN) 2100 ($ Given - Provider: Laurne Tobin, ALEJANDRO) PRN Medication Order 11/01/2017 11/02/2017 11/03/2017 0.9% NaCl infusion for blood at 20 mL/hr, 250 mL, ONCE PRN, 1 dose, Starting on Wed10/19/17 at 0515, Until Wed11/03/17 at 1847, Normal Saline flush bag for blood and blood product administration albuterol-ipratropium (DUO-NEB) nebulizer solution 3 mL 3 mL, Inhalation, EVERY 4 HOURS PRN, Shortness of Breath, Wheezing, Starting on Wed10/14/17 at 2227, Until Wed11/03/17 at 184 camphor-menthol (SARNA) lotion Topical, 3 TIMES DAILY PRN, Itching, Starting on Wed11/01/17 at 2115, Until Wed11/03/17 at 1846, Apply to legs and other itchy areas dextrose IV 12.5-25 g 12.5-25 g (25-50 mL), Intravenous, PRN, Bedside Glucose less than 70 mg/dL -If NOT able to eat and/or NPO and with IV Access, Starting on Wed10/15/17 at 0056, Until Wed11/03/17 at 1846, If NOT able to eat and/or NPO and with IV Access: For Bedside Glucose 50-69 mg/dL give 25 mls D50W IVP STAT For Bedside glucose 50 mg/dL or LESS verify with a second Bedside Glucose (from a different site) and give 50 mls D50W IVP STAT Re-check and Re-treat blood glucose EVERY 10-25 minutes until blood glucose GREATER than or equal to 80 mg/dl. NOTIFY PROVIDER OF HYPOGLYCEMIC EVENT. glucagon (GLUCAGEN) injection 1 mg 1 mg, Intramuscular, PRN, Bedside Glucose less than 70 mg/dL - If NOT able to eat and/or NPO and withOUT IV Access, Starting on Wed10/15/17 at 005, Until Wed11/03/17 at 1846, If NOT able to eat and/or NPO and NO IV Access: For Bedside glucose 50-69 mg/dL Give 1 mg IM or SQ For Bedside Glucose LESS than 50 mg/dl verify with a second bedside glucose (from a different site) and Give 1 mg IM or SQ Re-check and Re-treat blood glucose EVERY 10-25 minutes until blood glucose GREATER than or equal to 80 mg/dl. NOTIFY PROVIDER OF HYPOGLYCEMIC EVENT. Reconstitute vial with 1 mL of sterile water for injection for a final concentration of 1 mg/mL; shake vial gently; use immediately and discard unused portion glucose (Diabetic Use) oral gel Oral, PRN, Other, Bedside Glucose less than 70 mg/dL -If able to eat and does not have swallowing difficulties, Starting on Wed10/15/17 at 005, Until Wed11/03/17 at 1846, If able to eat and does not have swallowing difficulties: For Bedside Glucose 50 - 69 mg/dL Give 15 grams of oral carbohydrates - 1 glucose gel (see MAR) If patient refuses glucose gel, then offer: - 4 ounces of fruit juice OR - 4 ounces non-diet soda OR - 8 ounces of fat-free milk For Bedside Glucose LESS than 50 mg/dL verify with a second Bedside Glucose (from a different site) - If pt is symptomatic, do not delay treatment If the patient is exhibiting symptoms which are not consistent with the results obtained, confirm the glucose with a STAT laboratory test. Give 30 grams of oral carbohydrates - 2 glucose gels (see MAR) If patient refuses glucose gel, then offer: - 8 ounces of fruit juice OR - 8 ounces non-diet soda OR - 16 ounces of fat-free milk Re-check and Re-treat blood glucose EVERY 10-25 minutes until blood glucose GREATER than or equal to 80 mg/dl. NOTIFY PROVIDER OF HYPOGLYCEMIC EVENT. documented in this encounter Care Teams Bariatric Physician Relationship Specialty Start Date End Date Fernie Barfield DO [address] [place] [phone] PCP - General 04/14/17 documented as of this encounter
--- OUTSIDE RECORDS SUMMARY | 2024-05-03 11:21 | XMS_ITS | Clinical Summary ---
Author Organization [facility] Address [address], [address] [id number] Phone Care Team Providers Care Batch Unloader Name Role Phone Fernie Barfield DO Primary Care Provider [phone] Medications traMADol (ULTRAM) 50 MG Tablet Take 1 Tab by mouth every 8 hours as needed for Mild or more severe pain. 90 Tab 11/05/2017 Active ALPRAZolam (XANAX) 0.5 MG Tablet Take 0.5 Tabs by mouth 3 times daily as needed for Anxiety. 90 Tab 11/05/2017 Active MIDODRINE HCL PO Take 5 mg by mouth 3 times daily. Active lactulose (CHRONULAC) 10 GM/15ML Solution Take 30 mL by mouth 2 times daily. Active Probiotic Product (PROBIOTIC PO) Take 1 Tab by mouth daily. Active folic acid (FOLVITE) 1 MG Tablet Take 1 mg by mouth daily. Active B COMPLEX-C PO Take by mouth daily. Active Ascorbic Acid (VITAMIN C PO) Take by mouth daily. Active vitamin B-1 (THIAMINE) 50 MG Tablet Take 50 mg by mouth daily. Active Family History Medical History Relation Name Comments Congestive Heart Failure Mother Diabetes Mother Relation Name Status Comments Mother Social History Tobacco Use Types Packs/Day Years Used Date Smoking Tobacco: Every Day Cigarettes Smokeless Tobacco: Never Tobacco Cessation:Counseling Given: No Alcohol Use Standard Drinks/Week Comments No 0 (1 standard drink = 0.6 oz pur e alcohol) Comments Unknown Sex and Gender Information Value Date Recorded Sex Assigned at Not on file Legal Sex Female 7:38 PM CDT Gender Identity Not on file Sexual Orientation Not on file Last Filed Vital Signs Vital Sign Reading Time Taken Comments Blood Pressure 104/66 11/10/2017 4:15 PM CDT Pulse 71 11/10/2017 4:15 PM CDT Temperature 36.5 ??C (97.7 ??F) 11/10/2017 4:15 PM CD T Respiratory Rate 20 11/10/2017 4:15 PM CDT Oxygen Saturation 100% 11/10/2017 8:59 AM CDT Inhaled Oxygen Concentration - - Weight - - Height - - Body Mass Index - - Plan of Treatment Health Maintenance Due Date Last Done Comments Hepatitis C Virus (HCV) Screening 1961 TdaP Immunization 1961 Pap Smear 1982 Cervical Cancer Screening (CCS) 10/27/1991 HPV/Cotest 10/27/1991 Colonoscopy 2006 Colorectal Cancer Screening 2006 Cologuard 10/27/2011 Immunochemical Fecal Occult Blood 10/27/2011 Mammogram 10/27/2011 Zoster Immunization (1 of 2) 10/27/2011 SARS-COV-2 Immunization (2022- season) 2023 Influenza Immunization ([place] Ended) 2024 Hepatitis B Immunization Aged Out No longer eligible based on patient's age to complete this topic Meningococcal Immunization (ACWY) Aged Out No longer eligible based on patient's age to complete this topic Pneumococcal Immunization Combined Aged Out No longer eligible based on patient's age to complete this topic Rotavirus Immunization Aged Out No lo nger eligible based on patient's age to complete this topic Insurance [employer] Care Teams Batch Unloader Relationship Specialty Start Date End Date Fernie Barfield DO [address] [place] [id number] PCP - General Internal Medicine 12/17/16
--- OUTSIDE RECORDS SUMMARY | 2024-05-03 11:21 | XMS_ITS | Encounter Summary ---
Author Organization [facility] Address [address] [place] [address] Care Team Providers Care Fabrication Machine Operator Name Role Phone Fernie Barfield DO Primary Care Provider [phone] Reason for Visit * Reason Comments Follow-up Encounter Details Date Type Department Care Team (Late st Contact Info) Description 12/07/2022 8:45 AM CDT Office Visit [facility] at [address] [place] [address] Meghan Scott MD [address] [place] [address] [address] [place] [address] Heart valve disorder (Primary Dx); RBBB; Primary hypertension; Gastroesophageal reflux disease without esophagitis; Chronic obstructive pulmonary disease, unspecified COPD type (HCC); Alcoholic cirrhosis of liver without ascites (CMS/HCC) (HCC); Tobacco use Social History Tobacco Use Types Packs/Day Years Used Date Smoking Tobacco: Every Day Cigarettes Smokeless Tobacco: Never Tobacco Cessation:Ready to Q uit: No; Counseling Given: No Alcohol Use Standard Drinks/Week Comments No 0 (1 standard drink = 0.6 oz pur e alcohol) Comments No Sex and Gender Information Value Date Recorded Sex Assigned at Not on file 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 Gender Identity Not on file Sexual Orientation Not on file documented as of this encounter Last Filed Vital Signs Vital Sign Reading Time Taken Comments Blood Pressure 121/77 12/07/2022 8:48 AM CDT Pulse 79 12/07/2022 8:48 AM CDT Temperature - - Respiratory Rate - - Oxygen Saturation - - Inhaled Oxygen Concentration - - Weight 51.7 kg (113 lb 14.4 oz) 12/07/2022 8:48 AM CDT Height 154.9 cm (5' 1 ) 12/07/2022 8:48 AM CDT Body Mass Index 21.52 12/07/2022 8:48 AM CDT documented in this encounter Ordered Prescriptions Prescription Sig Dispense Quantity Refills Last Filled Start Date End Date amLODIPine (NORVASC) 2.5 mg tablet Take 1 tablet (2.5 mg total) by mouth daily 90 tablet 3 12/07/2022 documented in this encounter Progress Notes * Meghan Scott MD - 12/07/2022 8:45 AM CDT Images from the original note were not included. Cardiology note Reason for Office Visit: Chief Complaint Patient presents with Follow-up History of Present Illness: Rosa Li is a 62 y.o. female who presents to the office for a follow up visit for: VHD RBBB Hypertension benign COPD Hiatal Hernia Unspecified cirrhosis of liver Other ascites Hypo-osmolality and hyponatremia -resolved Patient has been doing reasonably well without ongoing CP, RUIZ, orthopnea, palpitations, fatigue orclaudication symptoms. Her cirrhosis had been stable and she has no more recurrent ascites. The patient has had no recent hospital admission or surgeries. The patient does not exercise regularly and has lost 15 lb since last OV. Review of Systems: Review of Systems Constitutional: Negative for decreased appetite. HENT: Negative for congestion and nosebleeds. Eyes: Negative for blurred vision and double vision. Cardiovascular: Negative for chest pain, irregular heartbeat, leg swelling, orthopnea, palpitations, paroxysmal nocturnal dyspnea and syncope. Respiratory: Positive for cough. Negative for shortness of breath. Hematologic/Lymphatic: Negative for bleeding problem. Bruises/bleeds easily. Skin: Negative for rash. Musculoskeletal: Positive for arthritis. Negative for back pain and muscle cramps. Gastrointestinal: Negative for bloating, abdominal pain, constipation, hematemesis and hematochezia. Genitourinary: Negative for hematuria. Neurological: Negative for dizziness, headaches and light-headedness. Histories: Past Medical History: Diagnosis Date HTN (hypertension) Past Surgical History: Procedure Laterality Date CHOLECYSTECTOMY 01/2017 US GUIDED PARACENTESIS N/A 08/24/2017 Family History Problem Relation Age of Onset Diabetes Mother Heart disease Mother Social History Tobacco Use Smoking status: Current Every Day Smoker Packs/day: 0.50 Smokeless tobacco: Never Used Substance Use Topics Alcohol use: No Drug use: No Allergies: Allergies Allergen Reactions Oxycodone Hallucinations Demerol [Meperidine] Other (See comments) Confusion, respiratory depression (?) Medications: Current Outpatient Medications on File Prior to Visit Medication Sig Dispense Refill ALPRAZolam (XANAX) 0.5 mg tablet Take 0.5 tablets (0.25 mg total) by mouth 3 (three) times a day asneeded ascorbic acid,vitamin C,,bulk, 100 % powder Take by mouth daily biotin 5 mg capsule Take by mouth daily cholecalciferol (VITAMIN D-3) 5,000 unit tablet 0.4 tablets (2,000 Units total) daily folic acid (FOLVITE) 1 mg tablet Take 1 tablet (1 mg total) by mouth daily milk thistle, bulk, 100 % powder Take by mouth daily multivit rnskxzlw-guwt-JE-calcium (THERA-M) 9 mg iron-400 mcg tablet Take 1 tablet by mouth [DISCONTINUED] amLODIPine (NORVASC) 2.5 mg tablet TAKE 1 TABLET(2.5 MG) BY MOUTH TWICE DAILY 90 tablet 3 cyclobenzaprine (FLEXERIL) 10 mg tablet Take 10 mg by mouth 3 (three) times a day as needed. (Patient not taking: Reported on 12/07/2022) fluticasone propionate (FLONASE) 50 mcg/actuation nasal spray as needed (Patient not taking: Reported on 12/07/2022) multivitamin with minerals tablet Take 1 tablet by mouth daily. (Patient not taking: Reported on 12/07/2022) No current facility-administered medications on file prior to visit. Vital Signs: BP 121/77 (BP Location: Right arm, Patient Position: Sitting) Pulse 79 Ht 154.9 cm (5' 1 ) Wt51.7 kg (113 lb 14.4 oz) BMI 21.52 kg/m?? Vitals: 12/07/22 0848 BP: 121/77 Pulse: 79 Wt Readings from Last 3 Encounters: 12/07/22 51.7 kg (113 lb 14.4 oz) 10/10/21 58.1 kg (128 lb) 07/08/20 62.1 kg (137 lb) Body mass index is 21.52 kg/m??. Physical Exam: Constitutional: She is oriented to person, place, and time. She appears well- developed and well-nourished. HENT: Head: Normocephalic. Eyes: Pupils are equal, round, and reactive to light. Neck: No thyromegaly present. Cardiovascular: Normal rate, regular rhythm and intact distal pulses. Exam reveals no gallop and nofriction rub. Murmur heard. Pulmonary/Chest: Breath sounds decreased. She has no wheezes. She has no rales. Abdominal: Soft. She exhibits no distension and no mass. There is no abdominal tenderness. Musculoskeletal: General: No edema. Neurological: She is alert and oriented to person, place, and time. No cranial nerve deficit. Skin: Skin is warm and dry. Psychiatric: She has a normal mood and affect. Labs: Lab Results Component Value Date INR 1.44 (H) 10/13/2017 INR 1.17 10/11/2017 INR 1.14 08/23/2017 Lab Results Component Value Date PT 16.4 (H) 10/13/2017 PT 13.3 (H) 10/11/2017 PT 12.9 08/23/2017 Lab Results Component Value Date TSH 1.330 02/11/2017 Lab Results Component Value Date BILIRUBINU Small (A) 08/23/2017 AST 17 10/14/2017 ALT 7 10/14/2017 ALKPHOS 76 10/14/2017 ALBUMIN 3.5 10/14/2017 Lab Results Component Value Date SODIUM 122 (L) 10/14/2017 POTASSIUM 3.4 10/14/2017 CHLORIDE 94 (L) 10/12/2017 CO2 22 10/12/2017 ANIONGAP 10 10/12/2017 GLUCOSEUR Negative 10/11/2017 No results found for: BNP Lab Results Component Value Date SODIUM 122 (L) 10/14/2017 SODIUM 126 (L) 10/12/2017 SODIUM 124 (L) 10/12/2017 POTASSIUM 3.4 10/14/2017 POTASSIUM 3.3 10/13/2017 POTASSIUM 3.6 10/12/2017 CHLORIDE 94 (L) 10/12/2017 CHLORIDE 92 (L) 10/12/2017 CHLORIDE 88 (L) 10/12/2017 CO2 22 10/12/2017 CO2 22 10/12/2017 CO2 23 10/12/2017 BUNSER 14 10/12/2017 BUNSER 14 10/12/2017 BUNSER 17 10/12/2017 CREATININE 1.10 10/12/2017 CREATININE 1.16 (H) 10/12/2017 CREATININE 1.25 (H) 10/12/2017 GFRNAA 56 10/12/2017 GFRNAA 53 10/12/2017 GFRNAA 48 10/12/2017 GLUCOSE 155 10/12/2017 CALCIUM 8.2 (L) 10/12/2017 CALCIUM 7.5 (L) 10/12/2017 CALCIUM 7.5 (L) 10/12/2017 ALBUMIN 3.5 10/14/2017 ALBUMIN 2.8 (L) 10/13/2017 ALBUMIN 1.8 (L) 10/12/2017 PHOS 3.0 10/14/2017 PHOS 3.4 10/13/2017 PHOS 4.7 (H) 10/12/2017 Lab Results Component Value Date SODIUM 122 (L) 10/14/2017 POTASSIUM 3.4 10/14/2017 CHLORIDE 94 (L) 10/12/2017 CO2 22 10/12/2017 ANIONGAP 10 10/12/2017 BUNSER 14 10/12/2017 CREATININE 1.10 10/12/2017 GLUCOSE 155 10/12/2017 CALCIUM 8.2 (L) 10/12/2017 BILITOT 1.2 10/14/2017 PROT 4.7 (L) 10/14/2017 ALBUMIN 3.5 10/14/2017 ALKPHOS 76 10/14/2017 ALT 7 10/14/2017 AST 17 10/14/2017 Lab Results Component Value Date WBC 14.1 (H) 10/14/2017 HGB 10.4 (L) 10/14/2017 HCT 29.0 (L) 10/14/2017 LABPLAT 174 10/14/2017 MPV 8.4 (L) 10/14/2017 RBC 3.27 (L) 10/14/2017 MCV 88.7 10/14/2017 MCH 31.8 10/14/2017 MCHC 35.9 (H) 10/14/2017 RDWCV 13.0 10/14/2017 RDWSD 42.5 10/14/2017 NRBCABS 0.00 10/14/2017 Lab Results Component Value Date CHOL 166 02/01/2015 TRIG 112.0 02/01/2015 HDL 76 (H) 02/01/2015 Tests: Cath 2008 - no significant CAD. Blood test 01/2015 BUN 20, creatinine 0.45, K+1 3.7, cholesterol 166/68/76/166, Hb 14.1 gm/dl. 2D echocardiogram 01/2016 - normaal EF and mild AR. ROSA LI : 1960 Thank you very much for the opportunity to participate in the care of this patient. if you have anyfurther questions please feel free to contact me. Meghan Scott MD, [facility] 2D echocardiogram 10/2017 - EF=80%, mild/moderate AR, trace TR/TR. Blood test 10/2017 - Na 127, K 3.8, BUN 17, SCr 0.7. 2D echocardiogram 10/2017 - EF=88%, mild to moderate AR, trace TR/MN. Blood test 11/2017 - Na 127, K 3.8, BUN 17 and SCr 0.9. Blood test at [facility] 04/2020 - Na 140, K 4.8, BUN 15, Scr 0.8, ALT 44, AST 64. EKG: ECG 10/2017 - NSR, low voltage ECG, RBBB and T-wave abnormalities. Diagnoses and Plan Diagnoses and all orders for this visit: Heart valve disorder (Primary) RBBB Primary hypertension Gastroesophageal reflux disease without esophagitis Chronic obstructive pulmonary disease, unspecified COPD type (HCC) Alcoholic cirrhosis of liver without ascites (CMS/HCC) (HCC) Tobacco use Other orders - amLODIPine (NORVASC) 2.5 mg tablet; Take 1 tablet (2.5 mg total) by mouth daily Assessment & Plan: Medications and labs/testing - reviewed. VHD - stable without angina pectoris or congestive heart failure. Will continue to monitor. RBBB - stable and continue to monitor. HT under control - resume Norvasc 2.5 mg daily. GERD no active problem. Cirrhosis/ascites - improved; defer to PCP and other consultants. Hyponatremia - resolved. Tobacco use recommend tobacco cessation. Continue diet, exercise, and weight maintenance. Follow Up: Patient follow up 12 months. HPI, cardiac testing, system review, medications, physical examination, labs, diagnoses and treatment plans were reviewed and necessary changes were updated. Diagnoses/treatment plans were discussed with patient. Meghan Scott MD 12/07/2022 9:10 AM Cc:Fernie Barfield DO documented in this encounter Plan of Treatment Not on file documented as of this encounter Visit Diagnoses Diagnosis Heart valve disorder- Primary Endocarditis, valve unspecified, unspecified cause RBBB Primary hypertension Unspecified essential hypertension Gastroesophageal reflux disease without esophagitis Esophageal reflux Chronic obstructive pulmonary disease, unspecified COPD type (HCC) Alcoholic cirrhosis of liver without ascites (CMS/HCC) (HCC) Tobacco use documented in this encounter Discontinued Medications Medication Sig Discontinue Reason Start Date End Da te amLODIPine (NORVASC) 2.5 mg tablet TAKE 1 TABLET(2.5 MG) BY MOUTH TWICE DAILY Reorder 10/19/2022 12/07/2022 documented as of this encounter Care Teams Fabrication Machine Operator Relationship Specialty Start Date End Date Fernie Barfield DO PCP - General 02/04/17 documented as of this encounter
--- OUTSIDE RECORDS SUMMARY | 2024-05-03 11:21 | XMS_ITS | Referral Summary ---
Author Organization [facility] [address] lt Address [address] [place] [address] Care Team Providers Care Welding Foreman Name Role Phone Fernie Barfield DO Primary Care Provider Allergies Active Allergy Reactions Criticality Noted Date Comments Meperidine Other (See comments) Low 08/23/2017 Confusion, respiratory depression (?) Oxycodone Hallucinations Medium 10/12/2017 Medications ALPRAZolam (XANAX) 0.5 mg tablet Take 0.5 tablets (0.25 mg total) by mouth 3 (three) times a day as needed 04/26/2017 Active folic acid (FOLVITE) 1 mg tablet Take 1 tablet (1 mg total) by mouth daily 07/02/2017 Active cyclobenzaprine (FLEXERIL) 10 mg tablet Take 10 mg by mouth 3 (three) times a day as needed. 08/06/2017 Active multivitamin with minerals tablet Take 1 tablet by mouth daily. 06/03/2017 Active multivit bpivhuvh-voyo-N A-calcium (THERA-M) 9 mg iron-400 mcg tabletIndicatio ns:Vitamin Deficiency Prevention Take 1 tablet by mouth 06/03/2017 Active milk thistle, bulk, 100 % powder Take by mouth daily Active ascorbic acid,vitamin C,,bulk, 100 % powder Take by mouth daily Active biotin 5 mg capsule Take by mouth daily Active fluticasone propionate (FLONASE) 50 mcg/actuation nasal spray as needed 12/03/2017 Active cholecalciferol (VITAMIN D-3) 5,000 unit tablet 0.4 tablets (2,000 Units total) daily 06/03/2018 Active amLODIPine (NORVASC) 2.5 mg tablet Take 1 tablet (2.5 mg total) by mouth daily 90 tablet 3 12/07/2022 Active Active Problems Problem Noted Date Diagnosed Date Acute cystitis with hematuria 10/12/2017 Assessment & Plan (10/12/2017 4:19 AM CDT): Patient is started on Flagyl and Zosyn Urine cultures are pending Will adjust the medications as needed. Pneumonia of left lower lobe due to infectious o rganism 10/12/2017 Assessment & Plan (10/12/2017 4:19 AM CDT): Patient started on Flagyl and Zosyn Septic workup is in progress Will get sputum cultures and urine respiratory antigens Supplemental oxygen as needed MAINOR (acute kidney injury) 10/12/2017 Overview (10/12/2017): Creatinine is elevated from baseline Will start on IV fluids Monitor with daily BMP Strict I&Os Generalized weakness 10/12/2017 Assessment & Plan (10/12/2017 4:16 AM CDT): Multifactorial due to hyponatremia, protein calorie malnourishment, Hernandez, acute infection Will get PT OT consult to evaluate and treat Severe protein-calorie malnutrition (CMS/HCC) Assessment & Plan (10/12/2017 6:34 AM CDT): Patient with hyperproteinemia and hypoalbuminemia With ascites and hypertension Despite of a IV fluids patient's blood pressure remains low Will give 1 dose of albumin 50 g IV to increase oncotic pressures Will get truant officer on board to assist with the management HERNANDEZ (nonalcoholic steatohepatitis) 08/24/2017 Assessment & Plan (10/12/2017 4:20 AM CDT): History of HERNANDEZ, follows in [facility]. Has an appointment this [...] with IV antibiotics with Flagyl and Zosyn Assessment & Plan (08/24/2017 5:00 AM CDT): Patient follows with GI at [facility]. Patient has an appointment in September. Consider contacting patient's GI doctor to see if further workup or treatment needed or if patient can follow up as scheduled. Ascites 08/24/2017 Assessment & Plan (10/12/2017 4:08 AM CDT): Ascites noted on the CT. With diffuse abdominal tenderness concerning for spontaneous bacterial peritonitis. Consider diagnostic paracentesis Will get GI consult Assessment & Plan (08/24/2017 4:50 AM CDT): Will consult IR for ultrasound-guided paracentesis. Hypotension 08/24/2017 Assessment & Plan (10/12/2017 4:07 AM CDT): Chronic hypertension. Patient had been on midodrine in. She lost her medication bottle about a month's ago and had not been taking it. Will restart on midodrine Telemetry monitoring Strict I&Os Assessment & Plan (08/24/2017 4:54 AM CDT): Patient is on midodrine 5 mg t.i.d.. Will continue with hold parameter of systolic blood pressure greater than 110. Anxiety 08/24/2017 Assessment & Plan (10/12/2017 4:07 AM CDT): Will continue with home medications Assessment & Plan (08/24/2017 4:59 AM CDT): Continue with p.r.n. Ativan Chronic hyponatremia 08/24/2017 Assessment & Plan (10/12/2017 4:04 AM CDT): Acute on chronic hyponatremia, likely multifactorial due to dehydration secondary to persistent nausea and vomiting, versus SIADH versus chronic hyper aldosteronism state Will check for urine sodium Patient was started on IV fluids with normal saline Will switch IV fluids to D5 half-normal saline Repeat electrolytes every 4 hr to avoid rapid correction of hyponatremia Assessment & Plan (08/24/2017 4:54 AM CDT): Chronic but improved. Patient's sodium was 128 on 08/08/2017. Continue to monitor. Abdominal pain 08/24/2017 Assessment & Plan (10/12/2017 4:10 AM CDT): Multifactorial, due to colitis, UTI, and ascites/? SBP Patient on broad-spectrum antibiotics with vanc and Zosyn Trend CBC and BMP Electrolytes every 4 hr, correct as needed Assessment & Plan (08/24/2017 4:54 AM CDT): Likely secondary to ascites. Nausea and vomiting have improved with Reglan. Will continue with Reglan and await ultrasound guided paracentesis. Will discontinue GI consult for now. However if patient continues to have abdominal pain with nausea and vomiting after paracentesis consider GI consult. 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 Gender Identity Not on file Sexual Orientation Not on file Last Filed Vital Signs Vital Sign Reading Time Taken Comments Blood Pressure 121/77 12/07/2022 8:48 AM CDT Pulse 79 12/07/2022 8:48 AM CDT Temperature 36.6 ??C (97.8 ??F) 07/08/2020 8:52 AM CS T Respiratory Rate 20 10/10/2021 9:19 AM CDT Oxygen Saturation 61% 10/14/2017 6:00 PM CDT Inhaled Oxygen Concentration - - Weight 51.7 kg (113 lb 14.4 oz) 12/07/2022 8:48 AM CDT Height 154.9 cm (5' 1 ) 12/07/2022 8:48 AM CDT Body Mass Index 21.52 12/07/2022 8:48 AM CDT Plan of Treatment Not on file Insurance CIGNA CIGNA [employer] CIGNA Advance Directives For more information, please contact: [phone] * Full Code (Latest Code Status on File) Date Activated Date Inactivated Comments 10/12/2017 1:13 AM 10/14/2017 9:47 PM * Full Code Date Activated Date Inactivated Comments 10/11/2017 11:48 PM 10/12/2017 1:13 AM * Full Code Date Activated Date Inactivated Comments 08/23/2017 8:53 PM 08/25/2017 1:57 PM Care Teams Welding Foreman Relationship Specialty Start Date End Date Fernie Barfield DO PCP - General 02/04/17
--- OUTSIDE RECORDS SUMMARY | 2024-05-03 11:21 | XMS_ITS | Encounter Summary ---
Author Organization [facility] Address [address] [place] [address] Care Team Providers Care Gamer Name Role Phone Fernie Barfield DO Primary Care Provider [phone] Reason for Visit * Reason Comments Follow-up Encounter Details Date Type Department Care Team (Late st Contact Info) Description 10/10/2021 9:00 AM CDT Office Visit [place] [employer] Mason Helper at [address] [place] [address] Meghan Scott MD [address] [place] [address] [address] [place] [address] Primary hypertension (Primary Dx); Heart valve disorder; RBBB; Gastroesophageal reflux disease without esophagitis; Alcoholic cirrhosis of liver without ascites (CMS/HCC) (HCC); Chronic obstructive pulmonary disease, unspecified COPD type (HCC) Social History Tobacco Use Types Packs/Day Years Used Date Smoking Tobacco: Every Day Cigarettes Smokeless Tobacco: Never Alcohol Use Standard Drinks/Week Comments No 0 (1 standard drink = 0.6 oz pur e alcohol) Comments No Sex and Gender Information Value Date Recorded Sex Assigned at Not on file 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 Gender Identity Not on file Sexual Orientation Not on file documented as of this encounter Last Filed Vital Signs Vital Sign Reading Time Taken Comments Blood Pressure 114/72 10/10/2021 9:19 AM CDT Pulse 78 10/10/2021 9:19 AM CDT Temperature - - Respiratory Rate 20 10/10/2021 9:19 AM CDT Oxygen Saturation - - Inhaled Oxygen Concentration - - Weight 58.1 kg (128 lb) 10/10/2021 9:19 AM CDT Height 154.9 cm (5' 1 ) 10/10/2021 9:19 AM CDT Body Mass Index 24.19 10/10/2021 9:19 AM CDT documented in this encounter Ordered Prescriptions Prescription Sig Dispense Quantity Refills Last Filled Start Date End Date amLODIPine (NORVASC) 2.5 mg tablet Take 1 tablet (2.5 mg total) by mouth 2 (two) times a day 90 tablet 3 10/10/2021 10/19/2022 documented in this encounter Progress Notes * Meghan Scott MD - 10/10/2021 9:00 AM CDT Images from the original note were not included. Cardiology note Reason for Office Visit: Chief Complaint Patient presents with ??? Follow-up History of Present Illness: Rosa Li is a 60 y.o. female who presents to the office for a follow up visit for: VHD RBBB Hypertension benign COPD Hiatal Hernia Unspecified cirrhosis of liver Other ascites Hypo-osmolality and hyponatremia -resolved Patient has been doing reasonably well with occasional epigastric discomfort after meals possibly GERD abd without ongoing CP, RUIZ, orthopnea, palpitations, fatigue or claudication symptoms. She has no more recurrent ascites. The patient has had no recent hospital admission or surgeries. The patient does not exercise regularly and has lost 9 lb since last OV. Review of Systems: Review of Systems Constitutional: Negative for decreased appetite. HENT: Positive for congestion. Negative for nosebleeds. Eyes: Negative for blurred vision and double vision. Cardiovascular: Negative for chest pain, irregular heartbeat, leg swelling, orthopnea, palpitations, paroxysmal nocturnal dyspnea and syncope. Respiratory: Negative for cough and shortness of breath. Hematologic/Lymphatic: Negative for bleeding problem. Bruises/bleeds easily. Skin: Negative for rash. Musculoskeletal: Positive for arthritis. Negative for back pain and muscle cramps. Gastrointestinal: Positive for abdominal pain. Negative for bloating, constipation, diarrhea, hematemesis and hematochezia. Genitourinary: Negative for hematuria. Neurological: Negative for dizziness, headaches and light-headedness. Histories: Past Medical History: Diagnosis Date ??? HTN (hypertension) Past Surgical History: Procedure Laterality Date ??? CHOLECYSTECTOMY 01/2017 ??? US GUIDED PARACENTESIS N/A 08/24/2017 Family History Problem Relation Age of Onset ??? Diabetes Mother ??? Heart disease Mother Social History Tobacco Use ??? Smoking status: Current Every Day Smoker Packs/day: 0.50 ??? Smokeless tobacco: Never Used Substance Use Topics ??? Alcohol use: No ??? Drug use: No Allergies: Allergies Allergen Reactions ??? Oxycodone Hallucinations ??? Demerol [Meperidine] Other (See comments) Confusion, respiratory depression (?) Medications: Current Outpatient Medications on File Prior to Visit Medication Sig Dispense Refill ??? ALPRAZolam (XANAX) 0.5 mg tablet Take 0.25 mg by mouth 3 (three) times a day as needed. ??? ascorbic acid,vitamin C,,bulk, 100 % powder Take by mouth daily ??? biotin 5 mg capsule Take by mouth daily ??? cholecalciferol (VITAMIN D-3) 5,000 unit tablet 2,000 Units daily ??? cyclobenzaprine (FLEXERIL) 10 mg tablet Take 10 mg by mouth 3 (three) times a day as needed. ??? fluticasone propionate (FLONASE) 50 mcg/actuation nasal spray as needed ??? folic acid (FOLVITE) 1 mg tablet Take 1 mg by mouth daily. ??? milk thistle, bulk, 100 % powder Take by mouth daily ??? multivit ojsniqmz-lzhg-GP-calcium (THERA-M) 9 mg iron-400 mcg tablet Take 1 tablet by mouth. ??? multivitamin with minerals tablet Take 1 tablet by mouth daily. No current facility-administered medications on file prior to visit. Vital Signs: Vitals BP 114/72 (BP Location: Right arm, Patient Position: Sitting) Pulse 78 Resp 20 Ht 154.9 cm (5' 1 ) Wt 58.1 kg (128 lb) BMI 24.19 kg/m?? Vitals: 10/10/21 0919 BP: 114/72 Pulse: 78 Resp: 20 Wt Readings from Last 3 Encounters: 10/10/21 58.1 kg (128 lb) 07/08/20 62.1 kg (137 lb) 11/10/19 61.7 kg (136 lb) Body mass index is 24.19 kg/m??. Physical Exam: Constitutional: She is oriented [...] free to contact me. Meghan Scott MD, [facility] 2D echocardiogram 10/2017 - EF=80%, mild/moderate AR, trace TR/TR. Blood test 10/2017 - Na 127, K 3.8, BUN 17, SCr 0.7. 2D echocardiogram 10/2017 - EF=88%, mild to moderate AR, trace TR/TX. Blood test 11/2017 - Na 127, K 3.8, BUN 17 and SCr 0.9. Blood test at [facility] 04/2020 - Na 140, K 4.8, BUN 15, Scr 0.8, ALT 44, AST 64. EKG: ECG 10/2017 - NSR, low voltage ECG, RBBB and T-wave abnormalities. Diagnoses and Plan Diagnoses and all orders for this visit: Primary hypertension (Primary) Heart valve disorder RBBB Gastroesophageal reflux disease without esophagitis Alcoholic cirrhosis of liver without ascites (CMS/HCC) (HCC) Chronic obstructive pulmonary disease, unspecified COPD type (HCC) Other orders - amLODIPine (NORVASC) 2.5 mg tablet; Take 1 tablet (2.5 mg total) by mouth 2 (two) times a day Assessment: 1. MVHD without angina pectoris or congestive heart failure. 2. HT under control 3. GERD no active problem. 4. RBBB. 5. Cirrhosis/ascites - improved. 6. Hyponatremia - resolved Plan: Medications and labs/testing - reviewed. Continue same medication regimen. Continue tight control of blood pressure and cholesterol. Continue diet, exercise, and weight maintenance. Follow Up: Patient follow up 12 months. HPI, cardiac testing, system review, medications, physical examination, labs, diagnoses and treatment plans were reviewed and necessary changes were updated. Diagnoses/treatment plans were discussed with patient. Meghan Scott MD 10/10/2021 9:00 AM Cc:Fernie Barfield, documented in this encounter Plan of Treatment Not on file documented as of this encounter Visit Diagnoses Diagnosis Primary hypertension- Primary Unspecified essential hypertension Heart valve disorder Endocarditis, valve unspecified, unspecified cause RBBB Gastroesophageal reflux disease without esophagitis Esophageal reflux Alcoholic cirrhosis of liver without ascites (CMS/HCC) (HCC) Chronic obstructive pulmonary disease, unspecified COPD type (HCC) documented in this encounter Discontinued Medications Medication Sig Discontinue Reason Start Date End Da te amLODIPine (NORVASC) 5 mg tablet TAKE 1/2 TABLET(2.5 MG) BY MOUTH TWICE DAILY Reorder 05/30/2021 10/10/2021 documented as of this encounter Care Teams Gamer Relationship Specialty Start Date End Date Fernie Barfield DO PCP - General 02/04/17 documented as of this encounter
--- OUTSIDE RECORDS SUMMARY | 2024-05-03 11:21 | XMS_ITS | Encounter Summary ---
Author Organization [facility] Address [address] [place] [address] Care Team Providers Care Semiconductor Processing Technician Name Role Phone Fernie Barfield DO Primary Care Provider [phone] Reason for Visit * Reason Comments Follow-up Encounter Details Date Type Department Care Team (Late st Contact Info) Description 07/08/2020 8:45 AM INSPECTOR BARREL Office Visit [place] Word Processing Supervisor 2 [facility] [address] [place] [address] Meghan Scott MD [address] 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 Gender Identity Not on file Sexual Orientation Not on file documented as of this encounter Last Filed Vital Signs Vital Sign Reading Time Taken Comments Blood Pressure 130/83 07/08/2020 8:52 AM INSPECTOR BARREL Pulse 77 07/08/2020 8:52 AM INSPECTOR BARREL Temperature 36.6 ??C (97.8 ??F) 07/08/2020 8:52 AM CS T Respiratory Rate 18 07/08/2020 8:52 AM INSPECTOR BARREL Oxygen Saturation - - Inhaled Oxygen Concentration - - Weight 62.1 kg (137 lb) 07/08/2020 8:52 AM INSPECTOR BARREL Height 157.5 cm (5' 2 ) 07/08/2020 8:52 AM INSPECTOR BARREL Body Mass Index 25.06 07/08/2020 8:52 AM INSPECTOR BARREL documented in this encounter Progress Notes * Meghan Scott MD - 07/08/2020 8:45 AM CST Images from the original note were not included. Cardiology note Reason for Office Visit: Chief Complaint Patient presents with ??? Follow-up History of Present Illness: Rosa Li is a 59 y.o. female who presents to the office for a follow up visit for: [785.2] Murmur [426.4] RBBB [401.1] Hypertension benign COPD [553.3] Hiatal Hernia [K74.60] Unspecified cirrhosis of liver [R18.8] Other ascites [E87.1] Hypo-osmolality and hyponatremia -resolved Patient has been doing reasonably well without ongoing CP, RUIZ, orthopnea, palpitations, fatigue orclaudication symptoms. The patient has had no recent hospital admission or surgeries. The patient does not exercise regularly and has gained 1 lb since last OV. Review of Systems: Review of Systems Constitution: Negative for decreased appetite. HENT: Positive for [...] pain and muscle cramps. Gastrointestinal: Negative for constipation, diarrhea, hematemesis and hematochezia. Genitourinary: Negative [...] (three) times a day as needed. ??? amLODIPine (NORVASC) 5 mg tablet Take 0.5 tablets (2.5 mg total) by mouth 2 (two) times a day (Patient taking differently: Take 2.5 mg by mouth daily ) 90 tablet 3 ??? ascorbic acid,vitamin C,,bulk, 100 % powder [...] powder Take by mouth daily ??? multivit accwzdjx-jpls-DS-calcium (THERA-M) 9 mg iron-400 mcg tablet Take 1 tablet by mouth. ??? multivitamin,tx-minerals (VITAMINS AND MINERALS) tablet Take 1 tablet by mouth daily. No current facility-administered medications on file prior to visit. Vital Signs: Vitals BP 130/83 (BP Location: Right arm, Patient Position: Sitting) Pulse 77 Temp 36.6 ??C (97.8 ??F) Resp 18 Ht 157.5 cm (5' 2 ) Wt 62.1 kg (137 lb) BMI 25.06 kg/m?? Vitals: 07/08/20 0852 BP: 130/83 Pulse: 77 Resp: 18 Temp: 36.6 ??C (97.8 ??F) Wt Readings from Last 3 Encounters: 07/08/20 62.1 kg (137 lb) 11/10/19 61.7 kg (136 lb) 07/10/19 61.7 kg (136 lb) Body mass index is 25.06 kg/m??. Physical Exam: Constitutional: She is oriented [...] free to contact me. Meghan Scott MD, [facility] 2D echocardiogram 10/2017 - EF=80%, mild/moderate AR, trace TR/TR. Blood test 10/2017 - Na 127, K 3.8, BUN 17, SCr 0.7. 2D echocardiogram 10/2017 - EF=88%, mild to moderate AR, trace TR/IL. Blood test 11/2017 - Na 127, K 3.8, BUN 17 and SCr 0.9. Blood test at [facility] 04/2020 - Na 140, K 4.8, BUN 15, Scr 0.8, ALT 44, AST 64. EKG: ECG 10/2017 - NSR, low voltage ECG, RBBB and T-wave abnormalities. Diagnoses and Plan Diagnoses and all orders for this visit: Essential hypertension (Primary) Heart valve disorder RBBB Gastroesophageal reflux disease without esophagitis Hyponatremia Cirrhosis of liver without ascites, unspecified hepatic cirrhosis type (CMS/HCC) Assessment: 1. MVHD without angina pectoris or [...] were discussed with patient. Meghan Scott MD 07/10/2020 7:15 AM Cc:Fernie Barfield DO ECTOR BARREL documented in this encounter Plan of Treatment Not on file documented as of this encounter Visit Diagnoses Diagnosis Essential hypertension- Primary Unspecified essential hypertension Heart valve disorder Endocarditis, valve unspecified, unspecified cause RBBB Gastroesophageal reflux disease without esophagitis Esophageal reflux Hyponatremia Hyposmolality and/or hyponatremia Cirrhosis of liver without ascites, unspecified hepatic cirrhosis type (HCC) documented in this encounter Historical Medications * This list may reflect changes made after this encounter. cholecalciferol (VITAMIN D-3) 5,000 unit tablet 0.4 tablets (2,000 Units total) daily 06/03/2018 added in this encounter Care Teams Semiconductor Processing Technician Relationship Specialty Start Date End Date Fernie Barfield DO PCP - General 02/04/17 documented as of this encounter
--- OUTSIDE RECORDS SUMMARY | 2024-05-03 11:21 | XMS_ITS | Clinical Summary ---
Author Organization [facility] [facility] Address [address] [place] [address] Care Team Providers Care Iron Pourer Name Role Phone Fernie Barfield DO Primary [...] tablet by mouth daily. 06/03/2017 Active multivit htjzqfoq-plls-E A-calcium (THERA-M) 9 mg iron-400 mcg tabletIndicatio [...] IV to increase oncotic pressures Will get directional drill operator on board to assist with the management HERNANDEZ (nonalcoholic steatohepatitis) 08/24/2017 Assessment & Plan (10/12/2017 4:20 AM CDT): History of HERNANDEZ, follows in [facility] hepatology [facility]. Has an appointment [...] AM CDT): Patient follows with GI at [facility]. Patient has an appointment in September. Consider [...] and vomiting after paracentesis consider GI consult. 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 Gender Identity Not on file Sexual Orientation Not on file Obstetrics History Last Filed Vital Signs Vital Sign Reading [...] 12/07/2022 8:48 AM CDT Plan of Treatment Health Maintenance Due Date Last Done Comments Breast Cancer Screening-Mammogram 1961 Cervical Cancer Screening 1961 Colon Cancer Screening-Colonoscopy 1961 Depression Screening 1961 Hepatitis C Screening 1961 Pneumococcal vaccine <65 (1 of 2 - PCV) 10/27/1967 DTaP/Tdap/Td Vaccine (1 - Tdap) 1972 Hepatitis B Screening 10/27/1979 Regular Well Visit/Exam 18-64 10/27/1979 Zoster Vaccine (1 of 2) 10/27/2011 Influenza Vaccine (#1) 2024 Insurance CIGNA CIGNA C[employer] HE[employer] CIGNA Advance Directives For more information, please contact: [phone] * Full Code (Latest Code Status on File) Date Activated Date Inactivated Comments 10/12/2017 1:13 AM 10/14/2017 9:47 PM * Full Code Date Activated Date Inactivated Comments 10/11/2017 11:48 PM 10/12/2017 1:13 AM * Full Code Date Activated Date Inactivated Comments 08/23/2017 8:53 PM 08/25/2017 1:57 PM Care Teams Iron Pourer Relationship Specialty Start Date End Date Fernie Barfield DO PCP - General 02/04/17
--- OUTSIDE RECORDS SUMMARY | 2024-05-03 11:22 | XMS_ITS | Encounter Summary ---
Author Organization [facility] Address [address] [place] [address] Care Team Providers Care Automotive Service Assistant Name Role Phone Fernie Barfield DO Primary Care Provider [phone]- [phone] Reason for Visit * Reason Comments Follow-up Encounter Details Date Type Department Care Team (Late st Contact Info) Description 07/10/2019 11:30 AM FURNITURE MOVER Office Visit [place] Sign Installer 2 [facility] [address] [place] [address] Meghan Scott MD 2 [facility] [address] [place] [address] Essential hypertension (Primary Dx); RBBB; Heart murmur; Hyponatremia; Cirrhosis of liver with ascites, unspecified hepatic cirrhosis type (CMS/HCC); MAINOR (acute kidney injury) (CMS/HCC) Social History Tobacco Use Types Packs/Day Years Used Date Smoking Tobacco: Every Day Cigarettes Smokeless Tobacco: Never Alcohol Use Standard Drinks/Week Comments No 0 (1 standard drink = 0.6 oz pur e alcohol) Comments No Sex and Gender Information Value Date Recorded Sex Assigned at Not on file Legal Sex Female 6:52 PM FURNITURE MOVER Gender Identity Not on file Sexual Orientation Not on file documented as of this encounter Last Filed Vital Signs Vital Sign Reading Time Taken Comments Blood Pressure 160/87 07/10/2019 11:56 AM FURNITURE MOVER Pulse 88 07/10/2019 11:56 AM FURNITURE MOVER Temperature - - Respiratory Rate 18 07/10/2019 11:56 AM FURNITURE MOVER Oxygen Saturation - - Inhaled Oxygen Concentration - - Weight 61.7 kg (136 lb) 07/10/2019 11:56 AM FURNITURE MOVER Height 157.5 cm (5' 2 ) 07/10/2019 11:56 AM FURNITURE MOVER Body Mass Index 24.87 07/10/2019 11:56 AM FURNITURE MOVER documented in this encounter Progress Notes * Meghan Scott MD - 07/10/2019 11:30 AM CST Cardiology note Reason for Office Visit: Chief Complaint Patient presents with ??? Follow-up History of Present Illness: Rosa Li is a 58 y.o. female who presents to the office for a follow up visit for: [785.2] Murmur [426.4] RBBB [401.1] Hypertension benign [553.3] Hiatal Hernia [K74.60] Unspecified cirrhosis of liver [R18.8] Other ascites [E87.1] Hypo-osmolality and hyponatremia Patient was admitted 09/2017with sepsis and PNA, acute respiratory failure requiring intubation - transferred to [facility] for further care. She responded to the treatment and eventually discharged with temporary HD for 3 months. She has since been doing well and had no more ascites/requiring no paracentesis. She has gained back 41 out of 70 post illness weight loss since lasy OV and had stopped taking Midodrine for post prolonged hospitalization autonomic dysfunction. Actually her BP's have been lately spike >160 mmHg even with Norvasc 5 mg daily. She has no ongoing chest pain, RUIZ, orthopnea, palpitations, fatigue or claudication symptoms. The patient has had no recent surgeries. The patient does not exercise regularly. Review of Systems: Review of Systems Constitution: Negative for decreased appetite. HENT: Positive for congestion. Negative for nosebleeds. Eyes: Negative for blurred vision and double vision. Cardiovascular: Negative for chest pain, irregular heartbeat, leg swelling, orthopnea, palpitations, paroxysmal nocturnal dyspnea and syncope. Respiratory: Positive for cough. Negative for shortness of breath. Hematologic/Lymphatic: Negative for bleeding problem. Does not bruise/bleed easily. Skin: Negative for rash. Musculoskeletal: Negative for arthritis, back pain and muscle cramps. Gastrointestinal: Negative [...] respiratory depression (?) Medications: Current Outpatient Medications Medication Sig Dispense Refill ??? ALPRAZolam (XANAX) 0.5 mg tablet Take 0.25 mg by mouth 3 (three) times a day as needed. ??? cyclobenzaprine (FLEXERIL) 10 mg tablet Take 10 mg by mouth 3 (three) times a day as needed. ??? folic acid (FOLVITE) 1 mg tablet Take 1 mg by mouth daily. ??? multivit uebvyhwf-ywgi-QP-calcium (THERA-M) 9 mg iron-400 mcg tablet Take 1 tablet by mouth. ??? multivitamin,tx-minerals (VITAMINS AND MINERALS) tablet Take 1 tablet by mouth daily. ??? thiamine (VITAMIN B-1) 50 mg tablet Take 50 mg by mouth daily. No current facility-administered medications for this visit. Vital Signs: Vitals BP 160/87 (BP Location: Right arm, Patient Position: Sitting) Pulse 88 Resp 18 Ht 157.5 cm (5' 2 ) Wt 61.7 kg (136 lb) BMI 24.87 kg/m?? Vitals: 07/10/19 1156 BP: 160/87 Pulse: 88 Resp: 18 Wt Readings from Last 3 Encounters: 07/10/19 61.7 kg (136 lb) 10/13/17 44.7 kg (98 lb 8.7 oz) 08/23/17 37.1 kg (81 lb 12.7 oz) Body mass index is 24.87 kg/m??. Physical Exam: Physical Exam Constitutional: She is oriented to person, place, and time. She appears well- developed and well-nourished. HENT: Head: Normocephalic. Eyes: Pupils are equal, round, and reactive to light. Neck: No thyromegaly present. Cardiovascular: Normal rate, regular rhythm and intact distal pulses. Exam reveals no gallop and nofriction rub. Murmur heard. Pulmonary/Chest: Breath sounds normal. She has no wheezes. She has no [...] free to contact me. Meghan Scott MD, [facility] 2D echocardiogram 10/2017 - EF=80%, mild/moderate AR, trace TR/TR. Blood test 10/2017 - Na 127, K 3.8, BUN 17, SCr 0.7. 2D echocardiogram 10/2017 - EF=88%, mild to moderate AR, trace TR/NE. Blood test 11/2017 - Na 127, K 3.8, BUN 17 and SCr 0.9. EKG: ECG 10/2017 - NSR, low voltage ECG, RBBB and T-wave abnormalities. Diagnoses and Plan Diagnoses and all orders for this visit: Essential hypertension (Primary) RBBB Heart murmur Hyponatremia Cirrhosis of liver with ascites, unspecified hepatic cirrhosis type (CMS/HCC) MAINOR (acute kidney injury) (CMS/HCC) Assessment: 1. MVHD without angina pectoris or congestive heart failure. 2. HT under control 3. GERD no active problem. 4. RBBB. 5. Cirrhosis/ascites - improved. 6. Hyponatremia Plan: Medications and labs/testing - reviewed. Continue same medication regimen. Increase Norvasc to 5 mg in am and 2.5 mg in pm. Continue tight control of blood pressure and cholesterol. Continue diet, exercise, and weight maintenance. Follow Up: Patient follow up 2 months. 07/10/2019 9:00 PM Meghan Scott MD Cc:Fernie Barfield DO ITURE MOVER documented in this encounter Plan of Treatment Not on file documented as of this encounter Visit Diagnoses Diagnosis Essential hypertension- Primary Unspecified essential hypertension RBBB Heart murmur Undiagnosed cardiac murmurs Hyponatremia Hyposmolality and/or hyponatremia Cirrhosis of liver with ascites, unspecified hepatic cirrhosis type (HCC) MAINOR (acute kidney injury) (HCC) documented in this encounter Discontinued Medications Medication Sig Discontinue Reason Start Date End Da te midodrine (PROAMATINE) 5 mg tabletIndications:Symptom atic Orthostatic Hypotension Take 5 mg by mouth 3 (three) times a day. 08/08/2017 07/10/2019 ondansetron (ZOFRAN) 4 mg tablet Take 4 mg by mouth every 8 (eight) hours as needed. 05/26/2017 07/10/2019 promethazine (PHENERGAN) 25 mg tablet Take 25 mg by mouth every 8 (eight) hours as needed. 06/03/2017 07/10/2019 traMADol (ULTRAM) 50 mg tablet Take 50 mg by mouth every 8 (eight) hours as needed. 05/07/2017 07/10/2019 documented as of this encounter Care Teams Automotive Service Assistant Relationship Specialty Start Date End Date Fernie Barfield DO PCP - General 02/04/17 documented as of this encounter
--- OUTSIDE RECORDS SUMMARY | 2024-05-03 11:22 | XMS_ITS | Encounter Summary ---
Author Organization [facility] Healthcare Address [address] [place] [address] Care Team Providers Care Training Program Assistant Name Role Phone Fernie Barfield DO Primary Care Provider [phone] Encounter Details Date Type Department Care Team (Latest Contact Info) Description 10/15/2017 11:13 PM CDT - 10/15/2017 11:59 PM CDT Hospital Encounter [facility] Discharge Disposition: Discharge to home or self care Social History Tobacco Use Types Packs/Day Years Used Date Smoking Tobacco: Every Day Cigarettes Smokeless Tobacco: Never Alcohol Use Standard Drinks/Week Comments No 0 (1 standard drink = 0.6 oz pur e alcohol) Comments No Sex and Gender Information Value Date Recorded Sex Assigned at Not on file 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 08/06/2017 folic acid (FOLVITE) 1 mg tablet Take 1 tablet (1 mg total) by mouth daily 07/02/2017 multivit oldygnus-lude-TU- calcium (THERA-M) 9 mg iron-400 mcg tabletIndications :Vitamin Deficiency Prevention Take 1 tablet by mouth 06/03/2017 multivitamin with minerals tablet Take 1 tablet by mouth daily. 06/03/2017 midodrine (PROAMATINE) 5 mg tabletIndications :Symptomatic Orthostatic Hypotension Take 5 mg by mouth 3 (three) times a day. 08/08/2017 07/10/2019 ondansetron (ZOFRAN) 4 mg tablet Take 4 mg by mouth every 8 (eight) hours as needed. 05/26/2017 07/10/2019 promethazine (PHENERGAN) 25 mg tablet Take 25 mg by mouth every 8 (eight) hours as needed. 06/03/2017 07/10/2019 thiamine (VITAMIN B-1) 50 mg tablet Take 50 mg by mouth daily. 07/02/2017 11/10/2019 traMADol (ULTRAM) 50 mg tablet Take 50 mg by mouth every 8 (eight) hours as needed. 05/07/2017 07/10/2019 documented as of this encounter Discharge Disposition Disposition Code Departure Means Destination Discharge to home or self care documented in this encounter Plan of Treatment Not on file documented as of this encounter Visit Diagnoses Not on filedocumented in this encounter Care Teams Training Program Assistant Relationship Specialty Start Date End Date Fernie Barfield DO PCP - General 02/04/17 documented as of this encounter
--- OUTSIDE RECORDS SUMMARY | 2024-05-03 11:22 | XMS_ITS | Encounter Summary ---
Author Organization 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
--- OUTSIDE RECORDS SUMMARY | 2024-05-03 11:22 | XMS_ITS | Encounter Summary ---
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
--- OUTSIDE RECORDS SUMMARY | 2024-05-03 11:22 | XMS_ITS | Encounter Summary ---
Author Organization [facility] Address [address] [place] [address] Care Team Providers Care Technical Marketing Consultant Name Role Phone Fernie Barfield DO Primary Care Provider [phone]- [phone] Reason for Visit * Reason Comments Hypertension Encounter Details Date Type Department Care Team (Late st Contact Info) Description 11/10/2019 10:00 AM CDT Office Visit [place] Director Dental Services [address] [facility] [address] [place] [address] Meghan Scott MD 2 [facility] [address] [place] [address] Heart murmur (Primary Dx); RBBB; Cirrhosis of liver with ascites, unspecified hepatic cirrhosis type (CMS/HCC); Essential hypertension; Chronic obstructive pulmonary disease, unspecified COPD type (CMS/HCC); Tobacco abuse; Gastroesophageal reflux disease without esophagitis Social History Tobacco Use Types Packs/Day Years Used Date Smoking Tobacco: Every Day Cigarettes Smokeless Tobacco: Never Alcohol Use Standard Drinks/Week Comments No 0 (1 standard drink = 0.6 oz pur e alcohol) Comments No Sex and Gender Information Value Date Recorded Sex Assigned at Not on file 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 Gender Identity Not on file Sexual Orientation Not on file documented as of this encounter Last Filed Vital Signs Vital Sign Reading Time Taken Comments Blood Pressure 136/74 11/10/2019 10:26 AM CDT Pulse 79 11/10/2019 10:26 AM CDT Temperature 37 ??C (98.6 ??F) 11/10/2019 10:26 AM CDT Respiratory Rate 16 11/10/2019 10:26 AM CDT Oxygen Saturation - - Inhaled Oxygen Concentration - - Weight 61.7 kg (136 lb) 11/10/2019 10:26 AM CDT Height 154.9 cm (5' 1 ) 11/10/2019 10:26 AM CDT Body Mass Index 25.7 11/10/2019 10:26 AM CDT documented in this encounter Progress Notes * Meghan Scott MD - 11/10/2019 10:00 AM CDT Cardiology note Reason for Office Visit: Chief Complaint Patient presents with ??? Hypertension History of Present Illness: Rosa Li is a 59 y.o. female who presents to the office for a follow up visit for: [785.2] Murmur [426.4] RBBB [401.1] Hypertension benign COPD [553.3] Hiatal Hernia [K74.60] Unspecified cirrhosis of liver [R18.8] Other ascites [E87.1] Hypo-osmolality and hyponatremia Patient has been doing reasonably well with occasional CP after meals/meds - GERD? Without RUIZ, orthopnea, palpitations, fatigue or claudication symptoms. Her BP's have been better controlled with increased Norvasc 5/2.5 mg bid. The patient has had no recent hospital admission or surgeries. The patient does not exercise regularly and has gained 0 lb since last OV. Review of Systems: Review of Systems Constitution: Negative for decreased appetite. HENT: Positive for congestion. Negative for nosebleeds. Eyes: Negative for blurred vision and double vision. Cardiovascular: Negative for chest pain, irregular heartbeat, leg swelling, orthopnea, palpitations, paroxysmal nocturnal dyspnea and syncope. Respiratory: Positive for cough and shortness of breath. Hematologic/Lymphatic: [...] 1 mg by mouth daily. ??? multivit juhlnouj-yazh-GP-calcium (THERA-M) 9 mg iron-400 mcg tablet Take 1 tablet by mouth. ??? multivitamin,tx-minerals (VITAMINS AND MINERALS) tablet Take 1 tablet by mouth daily. ??? thiamine (VITAMIN B-1) 50 mg tablet Take 50 mg by mouth daily. No current facility-administered medications for this visit. Vital Signs: Vitals BP 136/74 (BP Location: Right arm, Patient Position: Sitting) Pulse 79 Temp 37 ??C (98.6 ??F) Resp 16 Ht 154.9 cm (5' 1 ) Wt 61.7 kg (136 lb) BMI 25.70 kg/m?? Vitals: 11/10/19 1026 BP: 136/74 Pulse: 79 Resp: 16 Temp: 37 ??C (98.6 ??F) Wt Readings from Last 3 Encounters: 11/10/19 61.7 kg (136 lb) 07/10/19 61.7 kg (136 lb) 10/13/17 44.7 kg (98 lb 8.7 oz) Body mass index is 25.7 kg/m??. Physical Exam: Constitutional: She is oriented [...] free to contact me. Meghan Scott MD, [facility] 2D echocardiogram 10/2017 - EF=80%, mild/moderate AR, trace TR/TR. Blood test 10/2017 - Na 127, K 3.8, BUN 17, SCr 0.7. 2D echocardiogram 10/2017 - EF=88%, mild to moderate AR, trace TR/WA. Blood test 11/2017 - Na 127, K 3.8, BUN 17 and SCr 0.9. EKG: ECG 10/2017 - NSR, low voltage ECG, RBBB and T-wave abnormalities. Diagnoses and Plan Diagnoses and all orders for this visit: Heart murmur (Primary) RBBB Cirrhosis of liver with ascites, unspecified hepatic cirrhosis type (CMS/HCC) Essential hypertension Chronic obstructive pulmonary disease, unspecified COPD type (CMS/HCC) Tobacco abuse Gastroesophageal reflux disease without esophagitis Assessment: 1. MVHD without angina pectoris or congestive heart failure. 2. HT under control 3. GERD no active problem. 4. RBBB. 5. Cirrhosis/ascites - improved. 6. Hyponatremia Plan: Medications and labs/testing - reviewed. Continue same medication regimen. Continue tight control of blood pressure and cholesterol. Continue diet, exercise, and weight maintenance. Follow Up: Patient follow up 12 months. Meghan Scott MD 11/10/2019 10:00 AM Cc:Fernie Barfield DO documented in this encounter Plan of Treatment Not on file documented as of this encounter Visit Diagnoses Diagnosis Heart murmur- Primary Undiagnosed cardiac murmurs RBBB Cirrhosis of liver with ascites, unspecified hepatic cirrhosis type (HCC) Essential hypertension Unspecified essential hypertension Chronic obstructive pulmonary disease, unspecified COPD type (HCC) Tobacco abuse Tobacco use disorder Gastroesophageal reflux disease without esophagitis Esophageal reflux documented in this encounter Discontinued Medications Medication Sig Discontinue Reason Start Date End Da te thiamine (VITAMIN B-1) 50 mg tablet Take 50 mg by mouth daily. 07/02/2017 11/10/2019 documented as of this encounter Historical Medications * This list may reflect changes made after this encounter. fluticasone propionate (FLONASE) 50 mcg/actuation nasal spray as needed 12/03/2017 biotin 5 mg capsule Take by mouth daily ascorbic acid,vitamin C,,bulk, 100 % powder Take by mouth daily milk thistle, bulk, 100 % powder Take by mouth daily added in this encounter Care Teams Technical Marketing Consultant Relationship Specialty Start Date End Date Fernie Barfield DO PCP - General 02/04/17 documented as of this encounter
--- OUTSIDE RECORDS SUMMARY | 2024-05-03 11:23 | XMS_ITS | Encounter Summary ---
Author Organization [facility] Healthcare Address [address] [place] [address] Care Team Providers Care Certification Officer Name Role Phone Unavailable Primary Care Provider Unavailabl e Encounter Details Date Type Department Care Team (Latest Contact Info) Description 02/01/2015 10:20 AM CDT - 02/01/2015 11:59 PM CDT Hospital Encounter [facility]CON[facility] Shabazz MD [address] [place] [address] [address] Benign essential hypertension; Pure hypercholesterolemia Social History Tobacco Use Types Packs/Day Years Used Date Smoking Tobacco: Never Assessed Comments Unknown Sex and Gender Information Value Date Recorded Sex Assigned at Not on file 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 Gender Identity Not on file Sexual Orientation Not on file documented as of this encounter Plan of Treatment Not on file documented as of this encounter Procedures Procedure Name Priority Date/Time Associated Diagnosis Comments DISCHARGE LABORATORY CUMULATIVE REPORT 02/02/2015 SERUM LIPID PANEL Routine 02/01/2015 10: 31 AM CDT SERUM ESTIMATED GLOMERULAR FILTRATION RATE Routine 02/01/2015 10:31 AM CDT BLOOD CELL COUNT (CBC), MORPHOLOGIC EXAM Routine 02/01/2015 10:31 AM CDT BLOOD CELL MORPHOLOGIC EXAM Routine 02/01/2015 10:31 AM CDT PLASMA COMPREHENSIVE METABOLIC PANEL Routine 02/01/2015 5:31 AM CDT documented in this encounter Results * DISCHARGE LABORATORY CUMULATIVE REPORT (02/02/2015) Narrative 02/02/2015 Ordered by an unspecified provider. us Historical Provider MD LAB BLOOD ORDERABLES Jojo collier Result * (ABNORMAL) Serum lipid panel (02/01/2015 10:31 AM CDT) [facility] Cholesterol 166 40 - 199 mg/dl HISTORICAL RESULTS Comment: Interpretive Data Desirable: ??Less than 200 mg/dl ? Borderline High: ?200 - 239 mg/dl ? High: ??Greater than ?? 239 mg/dl Current interpretive data was last revised on 2014. Triglycerides 112.0 <=150.0 mg/dl HISTORICAL RESULTS Comment: Interpretive Data Normal: ? Less than 150 mg/dl Borderline high: ??105-199 mg/dl ?? High: ? 200-499 mg/dl ? Very high: ??Greater than or equal to 500 mg/dl Current interpretive data was last revised on 2014. HDL 76(H) 40 - 60 mg/dl HISTORICAL RESULTS Comment: Interpretive Data Low HDL Cholesterol: ? Less than 40 mg/dl Normal HDL Cholesterol: ??40-60 mg/dl High HDL Cholesterol: ?Greater than 60 mg/dl Current interpretive data was last revised on 2014. LDL 68 mg/dl HISTORICAL RESULTS Comment: Interpretive Data Optimal ? Less than 100 mg/dL ? Near optimal/Above optimal ??100 - 129 mg/dL ? Borderline high ? 130 - 159 mg/dL ? High ?160 - 189 mg/dL ? Very high ? Greater than or = 190 mg/dL ? LDL values are not valid when the total Triglyceride is greater than 300 mg/dL. Current interpretive data was last revised on 2014. Non-HDL cholesterol, calculated 90 mg/dl HISTORICAL RESULTS Comment: Interpretive Data Optimal ? Less than 130 mg/dL Low Risk ?130 - 159 mg/dL Moderate Risk ? 160 - 189 mg/dL High Risk ? Greater than or equal to 190 mg/dL Current interpretive data was last revised on 2014. Serum 02/01/2015 10:3 1 AM CDT us Samer Tyler [facility] LAB BLOOD ORDERABLES Final Re sult HISTORICAL RESULTS * Blood cell morphologic exam (02/01/2015 10:31 AM CDT) Neutrophils 64.0 44.0 - 80.0 % HISTORICAL RESULTS Immature granulocytes 0.2 0.0 - 1.0 % HISTORICAL RESULTS Lymphocytes 25.8 13.0 - 44.0 % HISTORICAL RESULTS Monos 6.9 2.0 - 11.0 % HISTORICAL RESULTS Eosinophils 2.1 0.0 - 6.0 % HISTORICAL RESULTS Basophils 1.0 0.0 - 3.0 % HISTORICAL RESULTS Neutrophils, abs 3.7 1.6 - 7.0 K/cumm HISTORICAL RESULTS Immature granulocyte, abs 0.0 0.0 - 0.2 K/cumm HISTORICAL RESULTS Lymphocytes, abs 1.5 0.5 - 4.3 K/cumm HISTORICAL RESULTS Monocytes, absolute 0.4 0.1 - 1.0 K/cumm HISTORICAL RESULTS Eosinophils, abs 0.1 0.0 - 0.6 K/cumm HISTORICAL RESULTS Basophils, abs 0.1 0.0 - 0.3 K/cumm HISTORICAL RESULTS Blood specimen (specimen) 02/01/2015 10:31 AM CDT Meghan Scott MD LAB BLOOD ORDERABLES Final [facility] Performing Organization Address [facility] de Phone Number HISTORICAL RESULTS * (ABNORMAL) Blood cell count (CBC), morphologic exam (02/01/2015 10:31 AM CDT) WBC 5.9 3.8 - 9.8 K/cumm HISTORICAL RESULTS RBC 3.98 3.90 - 5.00 M/cumm HISTORICAL RESULTS Hgb 14.1 12.1 - 15.1 g/dl HISTORICAL RESULTS Hct 40.4 36.1 - 44.3 % HISTORICAL RESULTS MCV 101.5(H) 80.0 - 100.0 fl HISTORICAL RESULTS MCH 35.4(H) 26.7 - 33.7 pg HISTORICAL RESULTS MCHC 34.9 32.7 - 36.0 g/dl HISTORICAL RESULTS Rdw 12.7 11.5 - 14.6 % HISTORICAL RESULTS Platelets 300 140 - 440 K/cumm HISTORICAL RESULTS MPV 9.2 8.0 - 12.0 fl HISTORICAL RESULTS NRBC 0.0 0.0 - 0.0 % HISTORIC AL RESULTS NRBC, abs 0.00 0.00 - 0.00 K/cumm HISTORICAL RESULTS Blood specimen (specimen) 02/01/2015 10:31 AM CDT Meghan Scott MD LAB BLOOD ORDERABLES Final [facility] Performing Organization Address [facility] de Phone Number HISTORICAL RESULTS * Serum estimated glomerular filtration rate (02/01/2015 10:31 AM CDT) eGFR >60 ml/min/1.7 3 m2 HISTORICAL RESULTS Comment: Interpretation of Estimated GFR (eGFR): Normal ?>/= 60 mL/min/1.73m2 Possible Chronic Kidney Disease ??15 - 59 mL/min/1.73m2 Possible Kidney Failure ?< 15 ??mL/min/1.73m2 If -Nigerian multiply value by 1.16. ??Estimated glomerular filtration rate is determined by the CKD-EPI equation recommended by the National Kidney Foundation (KDIGO 2012 Clinical Practice Guideline for the Evaluation and Management of Chronic Kidney Disease. ??Kidney Intnl Suppl May 2012;3:1). ??The CKD-EPI equation should not be used in acute renal failure or acute kidney injury and is not valid in children. Serum 02/01/2015 10:3 1 AM CDT us Chaparritar Tyler [facility] LAB BLOOD ORDERABLES Final Re sult HISTORICAL RESULTS * (ABNORMAL) Plasma comprehensive metabolic panel (02/01/2015 5:31 AM CDT) Sodium 139 135 - 145 mmol/L HISTORICAL RESULTS K, pl 3.7 3.5 - 5.1 mmol/L HISTORICAL RESULTS Chloride 101 97 - 110 mmol/L HISTORICAL RESULTS CO2 26 22 - 32 mmol/L HISTORICAL RESULTS A. gap 16 8 - 16 mmol/L HISTORICAL RESULTS Glucose 113 70 - 199 mg/dl HISTORICAL RESULTS Comment: Interpretive Data Note:The glucose is assumed non fasting Fastin-99 mg/dL Random: ??70-199 mg/dL Either a fasting glucose > 126 mg/dL or a random glucose > 200 mg/dL plus symptoms is diagnostic of diabetes when confirmed on another day. Fasting values > 100 mg/dL but < 125 mg/dL are diagnostic of impaired fasting glucose. Current interpretive data was last revised on 2014. BUN 9.1 8.0 - 25.0 mg/dl HISTORICAL RESULTS Creatinine 0.45(L) 0.60 - 1.10 mg/dl HISTORICAL RESULTS BUN/creat ratio 20 10 - 20 HIST ORICAL RESULTS Calcium 9.1 8.6 - 10.2 mg/dl HISTORICAL RESULTS Protein, sr 6.9 6.0 - 8.4 g/dl HISTORICAL RESULTS Alb 4.3 3.6 - 5.0 g/dl HISTORICAL RESULTS Alb/glob ratio 1.7 1.1 - 1.8 ratio HISTORICAL RESULTS Alk phos 118 40 - 130 Units/L HISTORICAL RESULTS ALT 22 5 - 45 Units/L HISTORICAL RESULTS AST 33 10 - 40 Units/L HISTORICAL RESULTS Comment:Hemolysis present. R esults may be affected. Bilirubin 0.7 <=1.2 mg/dl HISTORICAL RESULTS Plasma 02/01/2015 5:31 AM CDT Narrative HISTORICAL RESULTS - 02/01/2015 6:07 AM CDT FAX TO [phone] us Samer Tyler [facility] LAB BLOOD ORDERABLES Final Re sult HISTORICAL RESULTS documented in this encounter Visit Diagnoses Diagnosis Benign essential hypertension Essential hypertension, benign Pure hypercholesterolemia documented in this encounter
--- OUTSIDE RECORDS SUMMARY | 2024-05-03 11:23 | XMS_ITS | Encounter Summary ---
Author Organization [facility] Facility Care Team Providers Care Optical Brightener Maker Helper Name Role Phone Unavailable Primary Care Provider Unavailabl e Encounter Details Date Type Department Care Team (Late st Contact Info) Description 04/09/2015 10:28 AM BUILDING AND CONSTRUCTION MANAGER - 04/09/2015 4:00 PM BUILDING AND CONSTRUCTION MANAGER Hospital Encounter [facility] Krystina Madison MD [address] [address] Primary osteoarthritis, left ankle and foot; Osteophyte of left foot; Other hammer toe(s) (acquired), left foot Social History Tobacco Use Types Packs/Day Years Used Date Smoking Tobacco: Never Assessed Comments Unknown Sex and Gender Information Value Date Recorded Sex Assigned at Not on file Legal Sex Female 6:52 PM BUILDING AND CONSTRUCTION MANAGER Gender Identity Not on file Sexual Orientation Not on file documented as of this encounter Plan of Treatment Not on file documented as of this encounter Procedures Procedure Name Priority Date/Time Associated Diagnosis Comments XR FOOT 3+ VW Routine 04/09/2015 10:36 AM BUILDING AND CONSTRUCTION MANAGER documented in this encounter Results * XR Foot 3+ Vw (04/09/2015 10:36 AM BUILDING AND CONSTRUCTION MANAGER) Anatomical Region Laterality Modality N/A Radiographic Indira ging 04/09/2015 10:3 6 AM BUILDING AND CONSTRUCTION MANAGER Narrative 04/09/2015 5:30 PM BUILDING AND CONSTRUCTION MANAGER YASMANY BRUNO M.D. YASMANY BRUNO M.D. FINAL REPORT The radiology attending physician has personally reviewed this study, and has reviewed and/or edited this written report and agrees with it. ACC# ??Date Time ??Exam [id number] Apr 09, 2015 10:36:00 [id number] Foot Complt. min 3 views L EXAMINATION: ?Left foot complete minimum 3 views HISTORY: ??Left midfoot osteoarthritis FINDINGS: ?? A 3 view weight-bearing examination of the left foot is submitted for interpretation without comparison. A true AP view is not obtained. There is moderate left first tarsometatarsal osteoarthritis with dorsal osteophytes present. There is no fracture. ??Lesser toe hammertoe deformities are present. IMPRESSION: ?? Moderate left first tarsometatarsal joint osteoarthritis. Requested By: KRYSTINA MCNEAL M.D. Dictated By: ?? YASMANY BRUNO M.D. ??on Apr 09 2015 10:47A This document has been electronically signed by: YASMANY BRUNO M.D. on Apr 09 2015 ??5:30P [id number] Procedure Note Provider, MD Per - 09/05/2016 YASMANY BRUNO M.D. YASMANY BRUNO M.D. FINAL REPORT The radiology attending physician has personally reviewed this study, and has reviewed and/or edited this written report and agrees with it. ACC# Date Time Exam [id number] Apr 09, 2015 10:36:00 [id number] Foot Complt. min 3 views L EXAMINATION: Left foot complete minimum 3 views HISTORY: Left midfoot osteoarthritis FINDINGS: A 3 view weight-bearing examination of the left foot is submitted for interpretation without comparison. A true AP view is not obtained. There is moderate left first tarsometatarsal osteoarthritis with dorsal osteophytes present. There is no fracture. Lesser toe hammertoe deformities are present. IMPRESSION: Moderate left first tarsometatarsal joint osteoarthritis. Requested By: KRYSTINA MCNEAL M.D. Dictated By: YASMANY BRUNO M.D. on Apr 09 2015 10:47A This document has been electronically signed by: YASMANY BRUNO M.D. on Apr 09 2015 5:30P [id number] Historical Provider MD PEREIRA XR PROCEDURES Final R esult documented in this encounter Visit Diagnoses Diagnosis Primary osteoarthritis, left ankle and foot Osteophyte of left foot Other hammer toe(s) (acquired), left foot documented in this encounter
--- OUTSIDE RECORDS SUMMARY | 2024-05-03 11:23 | XMS_ITS | Encounter Summary ---
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 Name Role Phone Fernie Barfield DO Primary Care Provider Encounter Details Date Type Department Care Team (Late st Contact Info) Description 02/09/2017 9:03 AM CDT - 02/11/2017 4:30 PM CDT Hospital Encounter [id number] [place] [address] [place] [address] [place], [place] [id number] [place] [address] [place] [address] Discharge Disposition: Discharge to home or self care Social History Tobacco Use Types Packs/Day Years Used Date Smoking Tobacco: Never Assessed Comments Unknown Sex and Gender Information Value Date Recorded Sex Assigned at Not on file Legal Sex Female 6:52 PM [employer]ITATION [employer] Gender Identity Not on file Sexual Orientation Not on file documented as of this encounter Last Filed Vital Signs Vital Sign Reading Time Taken Comments Blood Pressure 101/62 02/11/2017 2:58 PM CDT Pulse 79 02/11/2017 2:58 PM CDT Temperature - - Respiratory Rate - - Oxygen Saturation - - Inhaled Oxygen Concentration - - Weight 55.4 kg (122 lb 1.5 oz) 02/11/2017 12:37 PM CDT Height 157.5 cm (5' 2.01 ) 02/11/2017 12:37 PM C DT Body Mass Index 22.32 02/11/2017 12:37 PM CDT documented in this encounter Discharge Summaries * Miscellaneous, Not In File - 02/11/2017 5:00 AM CDT [facility] Patient: ROSA LI Account: [id number] Room No: 2506-A : 1960 Admit Date: 02/09/2017 Attending: REX HARDY MD Disch. Date: 02/11/2017 Dictating: REX HARDY MD Patient Type: SDS DISCHARGE SUMMARY DISCHARGE DIAGNOSIS 1. Abdominal pain with jaundice/choledocholithiasis status post ERCP with biliary sphincterotomy and then balloon sweep of microlithiasis. 2. Status post laparoscopic cholecystectomy. 3. Hyponatremia likely secondary to volume depletion, improved with IV hydration. Cortisol level was normal. 4. Hypokalemia, resolved with potassium supplementation. 5. History of hypertension. Blood pressure has been low off antihypertensives. 6. Tobacco dependence. 7. Macrocytic anemia. 8. Abnormal liver function test. HOSPITAL COURSE A 56-year-old female with history of hypertension presents for ERCP. She has history of hypertension but since her blood pressure was running low, she has been off antihypertensive for a few days prior to this admission. She underwent ERCP with biliary sphincterotomy and balloon sweep of microlithiasis. Patient was admitted for further monitoring and for cholecystectomy. Patient was seen by Dr. Hunter and she underwent laparoscopic cholecystectomy. She had liver biopsy which showed marked fatty change of the liver. There was acute and chronic cholestatic changes with features consistent with obstruction. Patient's abdominal pain improved. Her nausea improved. She was tolerating diet following cholecystectomy. She also had hyponatremia with sodium of 122 on admission which improved with IV hydration. Cortisol level was also normal. TSH was also normal at 1.3. Patient had persistent hyperbilirubinemia and she refused to stay for further workup. Discussed with hollock maker Dr. Carroll who recommended LFTs as an outpatient in a week and follow up with him in a week. She had hypokalemia on admission and she received potassium supplementation. Her blood pressure was running low. Cortisol level was normal. She is discharged to home to follow up with her primary care physician. She was also counseled to quit smoking. Patient has macrocytic anemia but hemoglobin and hematocrit stayed stable. She is discharged to home. CONDITION ON DISCHARGE Fair. MEDICATIONS ON DISCHARGE 1. Magnesium oxide 400 mg p.o. daily. 2. Prilosec 20 mg p.o. daily. 3. Xanax 0.25 mg p.o. daily p.r.n. 4. Levaquin 500 mg 1 tablet p.o. daily. 5. Oxycodone 5 mg every 4 hours as needed. Electronically Authenticated and Edited by: Rex Hardy MD On 03/05/2017 09:53 AM CDT REX HARDY MD RT/ams TD: 02/13/2017 17:50 documented in this encounter Discharge Disposition Disposition Code Departure Means Destination Discharge to home or self care documented in this encounter Consult Notes * Miscellaneous, Not In File - 02/09/2017 5:00 AM CDT [facility] Patient: ROSA LI Account: [id number] Room No: 2302-A : 1960 Consult Date: 02/09/2017 Attending: REX HARDY MD Admit Date: 02/09/2017 Consult.: TIM HUNTER M.D. Disch. Date: Patient Type: SDS SURGICAL CONSULTATION CONSULTING PHYSICIAN Tim Hunter MD REASON FOR CONSULTATION I was asked by Dr. Rex Hardy to see Ms. Li with obstructive jaundice and cholelithiasis. HISTORY Ms. Li is a 56-year-old woman with at least a 6-month history of epigastric right upper quadrant abdominal pain associated with nausea, vomiting, scleral icterus, and garland-colored stools. She was seen in consultation by Dr. Carroll and last week had a bilirubin of 7, AST of 117, ALT of 36, alkaline phosphatase of 422. Right upper quadrant sonogram revealed sludge. CT scan was negative except for fatty liver. Hepatitis panel as well as other hepatic metabolic abnormalities were ruled out as well. She had an ERCP today with common bile duct sludge extraction and sphincterotomy. I was consulted for cholecystectomy. PAST MEDICAL HISTORY Hypertension, gastroesophageal reflux disease. MEDICATIONS 1. Metoprolol daily. 2. Prilosec 40 mg a day. 3. Multivitamin. ALLERGIES None known. SOCIAL HISTORY She is a drinker and a smoker as well. FAMILY HISTORY Reviewed and negative except for as above. REVIEW OF SYSTEMS Reviewed and otherwise negative for constitutional, head, ears, eyes, nose, throat, respiratory, cardiovascular, GI, , endocrinologic, psych, musculoskeletal, or skin problems. PHYSICAL EXAMINATION General: She is awake, alert, in no distress at this time. HEENT: Normocephalic, atraumatic. Sclerae are icteric. She wears eyeglasses. Dry mucous membranes. Neck: Supple without masses. Lungs: Clear to auscultation bilaterally without wheeze or rhonchi heard. Heart: Regular rate and rhythm without murmurs or rubs. Abdomen: Soft, nontender, nondistended at this time. No organomegaly is noted. No ventral hernia is noted. Extremities: Warm without any clubbing or cyanosis. Neurological: She is alert and oriented x3. No focal deficits. I did not test her gait. LABS AND X-RAYS Please see HPI. IMPRESSION Obstructive jaundice status post endoscopic retrograde cholangiopancreatography with common bile duct sludge extraction and sphincterotomy. PLAN Laparoscopic cholecystectomy, possible cholangiogram, possible open tomorrow as well as a liver biopsy considering her hyperbilirubinemia and history of alcohol use. I discussed the procedure at length with her and her , the risks of which include but are not limited to bleeding, infection, injury to the bile duct, hepatic artery, bile leak, need for postoperative ERCP, postoperative diarrhea, nonresolution of symptoms, cardiopulmonary complications, among others. She understands and all questions were answered to apparent satisfaction and she wished to proceed. She has been kept NPO, IV fluids. IV antibiotics will be given preoperatively. She will be placed on the add-on schedule for tomorrow. Electronically Authenticated by: Tim Hunter MD On 02/10/2017 09:43 AM CDT TIM HUNTER M.D. DESHAWN/latoya TD: 02/09/2017 17:00 documented in this encounter Miscellaneous Notes * Op Note - Provider, MD Per - 02/10/2017 12:00 AM CDT [facility] Patient: ROSA LI Account: [id number] Room No: 2302-A : 1960 Proc. Date: 02/10/2017 Surgeon: TIM HUNTER M.D. Admit Date: 02/09/2017 Disch. Date: 02/11/2017 Patient Type: SDS OPERATIVE REPORT SURGEON Tim Hunter MD SIGNING TEACHER Radha Roberts R.N. PREOPERATIVE DIAGNOSES 1. Acute cholecystitis secondary to cholelithiasis with choledocholithiasis status post ERCP yesterday. 2. Hyperbilirubinemia, elevated transaminases, hepatomegaly, concerning for underlying liver disease. POSTOPERATIVE DIAGNOSES 1. Acute cholecystitis secondary to cholelithiasis with choledocholithiasis status post ERCP yesterday. 2. Hyperbilirubinemia, elevated transaminases, hepatomegaly, concerning for underlying liver disease. OPERATION 1. Laparoscopic cholecystectomy. 2. Johnnie-Cut needle biopsy right lobe of the liver. ANESTHESIA General endotracheal anesthesia. FINDINGS 1.5 cm ascites, thyromegaly, acute cholecystitis. DISPOSITION To recovery in stable condition. HISTORY Ms. Li is a 56-year-old woman admitted to the hospital yesterday by Dr. Chacorta Carroll for ERCP with removal of sludge from the common bile duct and sphincterotomy, she had bilirubin of 7 with elevated transaminases. She comes to the operating room for cholecystectomy and liver biopsy with concern of underlying alcoholic liver disease. OPERATION Risks and benefits were explained to the patient. Informed consent was signed. She was taken to the operating room and placed in supine position. Adequate general endotracheal anesthesia was established. The abdomen was prepped and draped in the usual fashion. Infraumbilical incision was made with a scalpel and was carried down through subcutaneous tissue through the fascia using cautery. Peritoneum was entered sharply. A 12 mm blunt trocar was placed into the abdomen under direct visualization. Pneumoperitoneum was created up to 15 L of CO2 pressure. A 5 mm trocar was placed in the epigastrium, 2 other primary trocars in right upper quadrant under direct visualization. The gallbladder was distended. She had hepatomegaly and change consistent with diffuse fatty infiltration of the liver. Gallbladder was reflected over the liver. Dilia's pouch retracted laterally. Dissection was carried out in triangle of Calot. The cystic artery coursed over the cystic duct. Both were cleaned of surrounding tissue. Critical view was obtained. Two clips were placed on the stay side of the cystic artery, 1 on gallbladder side and transected. Two clips were placed on the stay side of the cystic duct, 1 on gallbladder side and transected. There was a small posterior vein that was doubly clipped on the stay side. Gallbladder was taken out of the gallbladder fossa using cautery. Up near the edge of the liver there was a vessel coursing across to the gallbladder that was clipped. The gallbladder was placed in an Endopouch and brought out the infraumbilical port site. The operative field was irrigated copiously with sterile saline solution. Hemostasis was obtained using electrocautery. This was deemed adequate. The clips were secured in place on the cystic duct, the cystic artery as well as a small vein and branch on the liver bed. There was no bleeding. There was no bile leak. All the irrigation was suctioned and was clear. Johnnie-Cut needle biopsy right lobe of the liver was then carried out. Hemostasis was obtained using cautery. The upper abdominal trocars were removed under direct visualization. Hemostasis was adequate. Infraumbilical trocar was removed. Pneumoperitoneum allowed to escape. The infraumbilical fascia was closed using 0 PDS in interrupted fashion and all skin incisions were injected with local anesthetic and closed using a 4-0 Monocryl running subcuticular closure. Exofin glue was placed. Patient tolerated the procedure well. The sponge and instrument counts were correct x2 through the case. She was taken to the recovery room in satisfactory condition. Electronically Authenticated by: Tim Hunter MD On 02/15/2017 12:02 PM CDT Marion JOSHI/latoya TD: 02/10/2017 17:12 * Admission Note - Miscellaneous, Not In File - 02/09/2017 5:00 AM CDT [facility] Patient: ROSA LI Room No: 2302-A Account: [id number] Service Date: 02/09/2017 : 1960 Admit Date: 02/09/2017 Attending: REX HARDY MD Disch. Date: 02/11/2017 Dictating: REX HARDY MD Patient Type: SDS ADMISSION NOTE CHIEF COMPLAINT Abdominal pain and jaundice. HISTORY OF PRESENT ILLNESS A 56-year-old female with history of hypertension, presents for ERCP. She has been experiencing lower abdominal pain. Her abdominal pain initially was intermittent but lately has been constant. She has not noted any aggravating or relieving factors. She also noted jaundice and dark urine. She stated that she had right upper quadrant ultrasound which showed biliary sludge. She denied any radiation of her abdominal pain. Her pain can sometimes be sharp and cramping pain. Last night she had severe abdominal pain with some diarrhea. Her stool has been dark. But she recently underwent EGD at [facility] which is reportedly normal. She denies any chest pain. She has shortness of breath on exertion. She has been experiencing nausea and gagging. She lost about 30-34 pounds of weight in the last 8 weeks. Today she underwent ERCP which showed mildly dilated common bile duct about 6 mm with delayed contrast emptying. She had biliary sphincterotomy and balloon sweep of microlithiasis. She is being admitted for further monitoring and cholecystectomy. PAST MEDICAL HISTORY Hypertension. In the last 1 week she has not been taking a metoprolol due to low blood pressures. PAST SURGICAL HISTORY None. SOCIAL HISTORY Tobacco: Less than pack a day since age 19. No alcohol abuse. FAMILY HISTORY Significant for congestive heart failure in mother. ALLERGIES DEMEROL. MEDICATIONS ON ADMISSION 1. Metoprolol 100 mg p.o. b.i.d. which she stopped about 1 week ago. 2. Prilosec 20 mg p.o. daily. 3. Magnesium oxide 400 mg p.o. daily. 4. Xanax 0.005 mg as needed. REVIEW OF SYSTEMS Constitutional: No fever, no chills. ENT: Denies any sore throat. Has some runny nose. Sometimes has postnasal drip. Eyes: No discharge from eyes. No change in her vision. Cardiac: Denies any chest pain. No shortness of breath on exertion. Denies any paroxysmal nocturnal dyspnea. No orthopnea. Respiratory: She has dry cough. No wheezing. GI: She as nausea and vomiting. Has abdominal pain. Stools have been dark. She had diarrhea yesterday. : Urine has been dark. No dysuria. Skin: She has No rash. Psych: Occasional anxiety. No history of depression. Musculoskeletal: She has upper back pain. Neuro: Denies any speech difficulty. She has some tingling of her toes. She sometimes has headaches. PHYSICAL EXAMINATION Vitals prior to ERCP: A temperature 98.7, pulse rate 89, respiratory rate 20, pulse ox 100%, blood pressure 120/66. HEENT: Both pupils regular. Extraocular movements intact. There is icterus of the sclera. Conjunctivae appears pink. Oral mucosa appears pink and dry. Neck: No thyromegaly. No cervical or supraclavicular lymphadenopathy. Lungs: Clear to auscultate. Normal respiratory effort. Heart: Regular S1 present. S2 present. Abdomen: There is mild tenderness in right upper quadrant. No guarding. No rigidity. Bowel sounds present. Extremities: There is trace edema around both ankles. No cyanosis no clubbing. Pedal pulses 1+ bilaterally except for left dorsalis pedis which was not felt. Neuro: Patient is alert, and normal speech. Cranial nerves 3, 4, 6: Extraocular movements intact. Cranial nerve 7 there is no facial droop. Cranial nerve 12: Tongue in midline. Motor power, handgrip is bilaterally. Thigh flexion, ankle extension 5/5 bilaterally. Skin: There is icterus. Lymph Nodes: No cervical or supraclavicular lymphadenopathy. LABS Pending. ASSESSMENT AND PLAN 1. Lower abdominal pain/jaundice. Underwent ERCP today which showed mildly dilated common bile duct. She had biliary sphincterotomy with balloon sweep of microlithiasis. Start clear liquid diet and obtain surgical input for laparoscopic cholecystectomy as suggested by hollock maker. Will continue supportive care with IV hydration pain control and antiemetics. 2. Hypertension. Her blood pressure has been running low lately. Will hold metoprolol. 3. Tobacco dependence. Smoking cessation counseled. 4. DVT prophylaxis with pneumatic compression stockings. Electronically Authenticated and Edited by: Rex Hardy MD On 03/05/2017 09:56 AM CDT REX HARDY MD RT/ams TD: 02/09/2017 15:30 documented in this encounter Plan of Treatment Not on file documented as of this encounter Procedures Procedure Name Priority Date/Time Associated Diagnosis Comments EGFR Today 02/11/2017 5:19 AM CDT DIFFERENTIAL AUTO Today 02/11/2017 5:1 9 AM CDT CBC WITH AUTO DIFFERENTIAL Today 02/11 5:19 AM CDT TSH Today 02/11/2017 5:19 AM CDT CORTISOL Today 02/11/2017 5:19 AM CDT COMPREHENSIVE METABOLIC PANEL Today 02/11/2017 5:19 AM CDT DISCHARGE LABORATORY CUMULATIVE REPORT 02/11/2017 12:00 AM CDT EGFR Routine 02/10/2017 11:30 PM CDT DIFFERENTIAL AUTO Routine 02/10/2017 11: 30 PM CDT CBC WITH AUTO DIFFERENTIAL Routine 02/10 11:30 PM CDT COMPREHENSIVE METABOLIC PANEL Routine 02/10/2017 11:30 PM CDT SURGICAL PATHOLOGY Routine 02/10/2017 4: 35 PM CDT EGFR STAT 02/10/2017 2:45 PM CDT AMYLASE Routine 02/10/2017 2:45 PM CDT COMPREHENSIVE METABOLIC PANEL STAT 02/10/2017 2:45 PM CDT SODIUM LEVEL STAT 02/10/2017 12:28 PM CDT POTASSIUM LEVEL STAT 02/10/2017 12:28 PM CDT TYPE AND SCREEN STAT 02/10/2017 9:49 AM CDT MAGNESIUM Routine 02/10/2017 8:45 AM CDT EGFR Routine 02/10/2017 2:49 AM CDT DIFFERENTIAL AUTO Routine 02/10/2017 2:4 9 AM CDT CBC WITH AUTO DIFFERENTIAL Routine 02/10 2:49 AM CDT COMPREHENSIVE METABOLIC PANEL Routine 02/10/2017 2:49 AM CDT SURGICAL PATHOLOGY 02/10/2017 12 :00 AM CDT EGFR Routine 02/09/2017 5:31 PM CDT COMPREHENSIVE METABOLIC PANEL Routine 02/09/2017 5:31 PM CDT FL ERCP BILIARY DUCT Routine 02/09/2017 3:51 PM CDT ELECTROCARDIOGRAPHY (ECG) 02/09/2017 CHOLANGIOPANCREATOGRAPHY, RETROGRADE, ENDOSCOPIC 02/09/2017 12:00 AM CDT CHOLANGIOPANCREATOGRAPHY, RETROGRADE, ENDOSCOPIC 02/09/2017 documented in this encounter Results * Cortisol (02/11/2017 5:19 AM CDT) Cortisol 12.2 4.8 - 19.5 mcg/dL [facility] Blood specimen (specimen) 02/11/2017 5:19 AM CDT 02/11/2017 6:57 AM CDT Rex Hardy MD LAB BLOOD ORDERABLES Final Res ult Performing Organization Address [facility] de Phone Number [facility] [address] [facility] [employer] [place], [place] [id number] * TSH (02/11/2017 5:19 AM CDT) Pathologist [facility] Thyroid Stimulating Hormone 1.330 0.300 - 4.200 mcIUnit/mL [facility] Blood specimen (specimen) 02/11/2017 5:19 AM CDT 02/11/2017 6:57 AM CDT Rex Hardy MD LAB BLOOD ORDERABLES Final Res ult Performing Organization Address [facility] de Phone Number [facility] [address] [facility] [place] [address] * eGFR (02/11/2017 5:19 AM CDT) eGFR 57 mL/min/1.7 3 m2 [facility] Comment: Interpretive Data Reference Interval Normal ?>/= 90 mL/min/1.73m2 Mildly decreased* ? 60 - 89 mL/min/1.73m2 Mildly to moderately decreased ?45 - 59 mL/min/1.73m2 Moderately to severely decreased ??30 - 44 mL/min/1.73m2 Severely decreased ?15 - 29 mL/min/1.73m2 Kidney Failure ?< 15 ??mL/min/1.73m2 *Relative to young adult level If -Croatian multiply value by 1.16. Estimated glomerular filtration rate is determined by the CKD-EPI equation recommended by the National Kidney Foundation (KDIGO 2012 Clinical Practice Guideline for the Evaluation and Management of Chronic Kidney Disease. Kidney Intnl Suppl May 2012;3:1). The CKD-EPI equation should not be used for patients with unstable renal function and has not been validated in children and those over 70. Current interpretive data was last reviewed 2016. Blood specimen (specimen) 02/11/2017 5:19 AM CDT 02/11/2017 6:57 AM CDT us Rex Hardy MD LAB BLOOD ORDERABLES Final Res ult [facility] [address] [place] [address] * (ABNORMAL) Comprehensive metabolic panel (02/11/2017 5:19 AM CDT) Sodium 129(L) 135 - 145 mmol/L [facility] Potassium, pl 4.6 3.6 - 5.2 mmol/L [facility] CO2 21(L) 22 - 32 mmol/L [facility] BUN 5.0(L) 8.0 - 25.0 mg/dL [facility] Glucose 137 70 - 199 mg/dL [facility] Comment: Interpretive Data Glucose is assumed to be non-fasting. Current interpretive data was last revised 2016. Creatinine 1.09 0.60 - 1.10 mg/dL [facility] Calcium 7.9(L) 8.5 - 10.3 mg/dL [facility] Chloride 95(L) 97 - 110 mmol/L [facility] Albumin 2.3(L) 3.5 - 5.0 g/dL [facility] AST 102(H) 10 - 45 Units/L [facility] ALT 26 7 - 45 Units/L [facility] Alk phos 316(H) 40 - 130 Units/L [facility] Bilirubin, total 9.50(H) 0.00 - 1.20 mg/dL [facility] Protein, pl 4.8(L) 6.5 - 8.5 g/dL [facility] Anion gap 13 2 - 15 mmol/L [facility] Blood specimen (specimen) 02/11/2017 5:19 AM CDT 02/11/2017 6:57 AM CDT Rex Hardy MD LAB BLOOD ORDERABLES Final Res ult [facility] [address] Department of Laboratories [place], [place] [id number] * (ABNORMAL) Differential, auto (02/11/2017 5:19 AM CDT) Neutrophil pct 91.3(H) 44.0 - 80.0 % [facility] Imm gran pct 0.4 0.0 - 1.0 % [facility] Lymphocyte pct 4.5(L) 13.0 - 44.0 % [facility] Monocyte pct 3.7 2.0 - 11.0 % [facility] Eosinophil pct 0.0 0.0 - 6.0 % [facility] Basophil pct 0.1 0.0 - 3.0 % [facility] Neutrophil abs 7.45(H) 1.70 - 6.50 K/cumm [facility] Imm gran abs 0.03 0.00 - 0.10 K/cumm [facility] Lymphocyte abs 0.37(L) 0.80 - 3.30 K/cumm [facility] Monocyte abs 0.30 0.20 - 0.80 K/cumm [facility] Eosinophil abs 0.00 0.00 - 0.50 K/cumm [facility] Basophil abs 0.01 0.00 - 0.10 K/cumm [facility] Blood specimen (specimen) 02/11/2017 5:19 AM CDT 02/11/2017 6:55 AM CDT Rex Hrady MD LAB BLOOD ORDERABLES Final Res ult Performing Organization Address City/[facility]/ZIP Co de Phone Number [facility] [address] [place] [address] * (ABNORMAL) CBC with auto differential (02/11/2017 5:19 AM CDT) [facility] WBC 8.16 3.80 - 9.90 K/cumm [facility] RBC 2.40(L) 3.90 - 5.20 M/cumm [facility] Hgb 9.1(L) 11.9 - 15.5 g/dL [facility] Hct 27.3(L) 35.6 - 45.5 % [facility] MCV 113.8(H) 81.3 - 96.4 fL [facility] MCH 37.9(H) 27.1 - 33.3 pg [facility] MCHC 33.3 32.3 - 35.7 g/dL [facility] RDW CV 15.0(H) 11.1 - 14.9 % [facility] RDW SD 62.4(H) 35.7 - 48.1 fL [facility] Plt 263 150 - 400 K/cumm [facility] MPV 9.7 9.1 - 12.3 fL [facility] NRBC 0.00 0.00 - 0.20 % [facility] NRBC abs 0.00 0.00 - 0.01 K/cumm [facility] Blood specimen (specimen) 02/11/2017 5:19 AM CDT 02/11/2017 6:55 AM CDT Rex Hardy MD LAB BLOOD ORDERABLES Final Res ult [facility] [address] [place] [address] * DISCHARGE LABORATORY CUMULATIVE REPORT (02/11/2017 12:00 AM CDT) Narrative 02/11/2017 12:00 AM CDT Ordered by an unspecified provider. Historical Provider LAB BLOOD ORDERABLES Jojo l Result * (ABNORMAL) Differential, auto (02/10/2017 11:30 PM CDT) [facility] Neutrophil pct 95.2(H) 44.0 - 80.0 % [facility] Imm gran pct 0.3 0.0 - 1.0 % [facility] Lymphocyte pct 2.4(L) 13.0 - 44.0 % [facility] Monocyte pct 2.1 2.0 - 11.0 % [facility] Eosinophil pct 0.0 0.0 - 6.0 % [facility] Basophil pct 0.0 0.0 - 3.0 % [facility] Neutrophil abs 6.71(H) 1.70 - 6.50 K/cumm [facility] Imm gran abs 0.02 0.00 - 0.10 K/cumm [facility] Lymphocyte abs 0.17(L) 0.80 - 3.30 K/cumm [facility] Monocyte abs 0.15(L) 0.20 - 0.80 K/cumm [facility] Eosinophil abs 0.00 0.00 - 0.50 K/cumm [facility] Basophil abs 0.00 0.00 - 0.10 K/cumm [facility] Blood specimen (specimen) 02/10/2017 11:30 PM CDT 02/10/2017 11:38 PM CDT us Rex Hardy MD LAB BLOOD ORDERABLES Final Res ult [facility] [address] [place] [address] * (ABNORMAL) CBC with auto differential (02/10/2017 11:30 PM CDT) [facility] WBC 7.05 3.80 - 9.90 K/cumm [facility] RBC 2.31(L) 3.90 - 5.20 M/cumm [facility] Hgb 8.8(L) 11.9 - 15.5 g/dL [facility] Hct 25.5(L) 35.6 - 45.5 % [facility] MCV 110.4(H) 81.3 - 96.4 fL [facility] Comment:consistant with luis ent history MCH 38.1(H) 27.1 - 33.3 pg [facility] MCHC 34.5 32.3 - 35.7 g/dL [facility] RDW CV 15.1(H) 11.1 - 14.9 % [facility] RDW SD 60.2(H) 35.7 - 48.1 fL [facility] Plt 230 150 - 400 K/cumm [facility] MPV 9.4 9.1 - 12.3 fL [facility] NRBC 0.00 0.00 - 0.20 % [facility] NRBC abs 0.00 0.00 - 0.01 K/cumm [facility] Blood specimen (specimen) 02/10/2017 11:30 PM CDT 02/10/2017 11:38 PM CDT us Rex Hardy MD LAB BLOOD ORDERABLES Final Res ult [facility] [address] [place] [address] * eGFR (02/10/2017 11:30 PM CDT) eGFR 57 mL/min/1.7 3 m2 [facility] Comment: Interpretive Data Reference Interval Normal ?>/= 90 mL/min/1.73m2 Mildly decreased* ? 60 - 89 mL/min/1.73m2 Mildly to moderately decreased ?45 - 59 mL/min/1.73m2 Moderately to severely decreased ??30 - 44 mL/min/1.73m2 Severely decreased ?15 - 29 mL/min/1.73m2 Kidney Failure ?< 15 ??mL/min/1.73m2 *Relative to young adult level If -Croatian multiply value by 1.16. Estimated glomerular filtration rate is determined by the CKD-EPI equation recommended by the National Kidney Foundation (KDIGO 2012 Clinical Practice Guideline for the Evaluation and Management of Chronic Kidney Disease. Kidney Intnl Suppl May 2012;3:1). The CKD-EPI equation should not be used for patients with unstable renal function and has not been validated in children and those over 70. Current interpretive data was last reviewed 2016. Blood specimen (specimen) 02/10/2017 11:30 PM CDT 02/10/2017 11:38 PM CDT us Rex Hardy MD LAB BLOOD ORDERABLES Final Res ult [facility] [address] [place] [address] * (ABNORMAL) Comprehensive metabolic panel (02/10/2017 11:30 PM CDT) Sodium 131(L) 135 - 145 mmol/L [facility] Potassium, pl 4.4 3.6 - 5.2 mmol/L [facility] CO2 20(L) 22 - 32 mmol/L [facility] BUN 4.0(L) 8.0 - 25.0 mg/dL [facility] Glucose 137 70 - 199 mg/dL [facility] Comment: Interpretive Data Glucose is assumed to be non-fasting. Current interpretive data was last revised 2016. Creatinine 1.09 0.60 - 1.10 mg/dL [facility] Calcium 7.8(L) 8.5 - 10.3 mg/dL [facility] Chloride 96(L) 97 - 110 mmol/L [facility] Albumin 2.2(L) 3.5 - 5.0 g/dL [facility] AST 98(H) 10 - 45 Units/L [facility] ALT 27 7 - 45 Units/L [facility] Alk phos 304(H) 40 - 130 Units/L [facility] Bilirubin, total 9.60(H) 0.00 - 1.20 mg/dL [facility] Protein, pl 4.6(L) 6.5 - 8.5 g/dL [facility] Anion gap 15 2 - 15 mmol/L [facility] Blood specimen (specimen) 02/10/2017 11:30 PM CDT 02/10/2017 11:38 PM CDT Rex Hardy MD LAB BLOOD ORDERABLES Final Res ult [facility] [address] [place] [address] * Surgical pathology (02/10/2017 4:35 PM CDT) 02/10/2017 4:35 PM CDT 02/11/2017 10:32 AM CDT Narrative 02/12/2017 1:50 PM CDT [place] [address] [place], [place] ??[address] Tele: ?? Yoselin Flores MD - Sandstone Splitter ?? Jorge Milan - Wind Operations Supervisor SURGICAL PATHOLOGY REPORT ?Patient Name: ROSA LI Address: [address] [place] [address] Service: Gastro ??[place], [place] ??[address] Location: [facility] [place] ? Taken: 02/10/2017 Gender: F Received 02/11/2017 : 1960 (Age: 56) [facility] #: [id number] Reported: 02/12/2017 ?? Patient Type: MB OP in a Bed Physician(s): Marion Joshi MD ?? DIAGNOSIS: Gallbladder vesicles cystectomy: ? - ??Minimal chronic inflammation Liver-biopsy: ? - ??Marked fatty change of liver - ??Siderosis - ??Acute and chronic cholestatic changes with features consistent with obstruction - ??See comment esb/02/12/2017 09:54 Examining Pathologist: Reggie Ayala M.D. ??Report Reviewed and Electronically Signed By ??Reggie Ayala M.D. ?? DIAGNOSIS COMMENT: Due to the deposition of iron within the hepatocytes, evaluation for hemochromatosis may prove diagnostically useful. ??The above impression requires correlation with history and physical findings. ??The finding should also be correlated with serologies (e.g. for primary biliary cirrhosis and sclerosing cholangitis). SPECIMEN TYPE: A: GALLBLADDER B: LIVER BIOPSY CLINICAL IMPRESSION AND HISTORY: Cholelithiasis, obstructive jaundice GROSS DESCRIPTION: Received in formalin in container A and labeled Rosa Cochranman and gallbladder consists of a 2.3 x 4.8 x 3.2 cm gallbladder. ??The serosa is unremarkable. ??Sections of the gallbladder show a dark green velvety unremarkable mucosa. ??The gallbladder wall measures 0.2 cm in thickness. ??Within the gallbladder is dark green bile without gallstones or gritty material. ??Expedition Supervisor sections are submitted in cassette A1. Received in formalin in container B and labeled Rosa Li and liver biopsy consists of two green cores of tissue measuring 0.6 cm and 1.4 cm and length. ??Specimen a staining hematoxylin, placed in filter paper and entirely submitted in cassette B1. ?[facility]/02/11/2017 11:32 ? B,[facility] MICROSCOPIC DESCRIPTION: Review of the part A material reveals some autolysis to the surface. ??Relatively scant chronic inflammation is noted within the supportive stroma that gallbladder. ??No overt malignant changes are noted. The needle liver cores are of good technical quality. ??There is striking extensive fatty change of liver. ??Hepatocellular unrest is noted. ??There is pain and pigmentation within many of the hepatocytes. ??Canalicular stasis is noted. ??The portal areas are expanded and there is a fairly marked ductular proliferation. ??Within the triads there is still preservation of some of the ducts. ??Occasional exocytosis of a few PMN's is noted. ??Exocytosis of lymphocytes are not evident. ??There is a modest mixed inflammatory infiltrate present within the expanded portal areas. ??No granulomata are identified. ??No metastatic lesions are noted. ??Iron staining on the material shows periportal deposition of iron within hepatocytes. ??PAS with diastase shows-positive granules within some of the histiocytes within the expanded portal areas and minimally within peripheral periportal hepatocytes. ??The trichrome stain shows the portal expansion with minimal fibrous extension into the adjacent fat. ??Reticulin stain, while suboptimal shows staining in portal region. Clerical Data Follows A; [id number] B; 09614, 91249, 77340, 54230, 08227 REPORT IMAGES AND/OR SCANNED DOUCMENTS ONLY VIEWABLE IN PDF FORMAT The immunohistochemical test(s) cited in this report, if any, was developed and its performance characteristics determined by [facility] Pathology Department. ??It has not been cleared or approved by the U.S. Food and Drug Administration. ??The FDA has determined that such clearance or approval is not necessary. ??This test is used for clinical purposes. ??It should not be regarded as investigational or for research. ??[facility] is certified under the Clinical Laboratory Improvement Amendments of 1988 (CLIA) as qualified to perform high complexity testing. ??Immunostains were performed on formalin-fixed paraffin embedded tissue using a polymer diaminobenzidine chromogen detection system. Antibodies used may include clone SP1 (rabbit monoclonal, estrogen receptor), clone 1E2 (rabbit monoclonal progesterone receptor), Ki-67 (rabbit monoclonal, 30-9), and [id number] (rabbit polyclonal, c-kit). Tim Hunter MD LAB PATHOLOGY ORDERABLES Final Result * eGFR (02/10/2017 2:45 PM CDT) eGFR 59 mL/min/1.7 3 m2 [facility] Comment: Interpretive Data Reference Interval Normal ?>/= 90 mL/min/1.73m2 Mildly decreased* ? 60 - 89 mL/min/1.73m2 Mildly to moderately decreased ?45 - 59 mL/min/1.73m2 Moderately to severely decreased ??30 - 44 mL/min/1.73m2 Severely decreased ?15 - 29 mL/min/1.73m2 Kidney Failure ?< 15 ??mL/min/1.73m2 *Relative to young adult level If -Croatian multiply value by 1.16. Estimated glomerular filtration rate is determined by the CKD-EPI equation recommended by the National Kidney Foundation (KDIGO 2012 Clinical Practice Guideline for the Evaluation and Management of Chronic Kidney Disease. Kidney Intnl Suppl May 2012;3:1). The CKD-EPI equation should not be used for patients with unstable renal function and has not been validated in children and those over 70. Current interpretive data was last reviewed 2016. Blood specimen (specimen) 02/10/2017 2:45 PM CDT 02/10/2017 3:31 PM CDT Oscar Vázquez MD LAB BLOOD ORDERABLES nal Result [facility] [address] [place] [address] * (ABNORMAL) Comprehensive metabolic panel (02/10/2017 2:45 PM CDT) Sodium 130(L) 135 - 145 mmol/L [facility] Potassium, pl 4.4 3.6 - 5.2 mmol/L [facility] CO2 23 22 - 32 mmol/L [facility] BUN 3.9(L) 8.0 - 25.0 mg/dL [facility] Glucose 73 70 - 199 mg/dL [facility] Comment: Interpretive Data Glucose is assumed to be non-fasting. Current interpretive data was last revised 2016. Creatinine 1.06 0.60 - 1.10 mg/dL [facility] Calcium 8.0(L) 8.5 - 10.3 mg/dL [facility] Chloride 92(L) 97 - 110 mmol/L [facility] Albumin 2.4(L) 3.5 - 5.0 g/dL [facility] AST 90(H) 10 - 45 Units/L [facility] ALT 30 7 - 45 Units/L [facility] Alk phos 350(H) 40 - 130 Units/L [facility] Bilirubin, total 11.50(H) 0.00 - 1.20 mg/dL [facility] Protein, pl 5.1(L) 6.5 - 8.5 g/dL [facility] Anion gap 15 2 - 15 mmol/L [facility] Blood specimen (specimen) 02/10/2017 2:45 PM CDT 02/10/2017 3:31 PM CDT Oscar Vázquez MD LAB BLOOD ORDERABLES Fi nal Result Performing Organization Address [facility]/ZIP Co de Phone Number [facility] [address] [facility] [place] [employer] [place], [place] [id number] * (ABNORMAL) Amylase (02/10/2017 2:45 PM CDT) Amylase 11(L) 30 - 100 Units/L [facility] Blood specimen (specimen) 02/10/2017 2:45 PM CDT 02/10/2017 3:31 PM CDT Narrative [facility] - 02/10/2017 3:46 PM CDT TOMORROW AT 1600. us Chacorta Carroll MD LAB BLOOD ORDERABLES Final Result Performing Organization Address [facility] Co de Phone Number [facility] [address] Department [place] [address] * (ABNORMAL) Sodium level (02/10/2017 12:28 PM CDT) Sodium 129(L) 135 - 145 mmol/L [facility] Blood specimen (specimen) 02/10/2017 12:28 PM CDT 02/10/2017 12:36 PM CDT Edy Singletary MD LAB BLOOD ORDERABLES F inal Result Performing Organization Address [facility] Co de Phone Number [facility] [address] Department of [place] [address] * Potassium (02/10/2017 12:28 PM CDT) Potassium, pl 4.3 3.6 - 5.2 mmol/L [facility] Blood specimen (specimen) 02/10/2017 12:28 PM CDT 02/10/2017 12:36 PM CDT Edy Singletary MD LAB BLOOD ORDERABLES F inal Result Performing Organization Address [facility]/ZIP Co de Phone Number [facility] [address] Department [place] [address] * Type and screen (02/10/2017 9:49 AM CDT) ABO Rh O Positive [facility] Jazzy, indirect Negative [facility] Blood specimen (specimen) 02/10/2017 9:49 AM CDT 02/10/2017 10:05 AM CDT Narrative [facility] - 02/10/2017 10:48 AM CDT SURGERY Edy Singletary MD LAB BLOOD BANK TEST OR DERABLES Final Result Performing Organization Address [facility] Co de Phone Number [facility] [address] Department [place] [address] * Magnesium (02/10/2017 8:45 AM CDT) Pathologist [facility] Magnesium 1.40 1.40 - 2.50 mg/dL [facility] Blood specimen (specimen) 02/10/2017 8:45 AM CDT 02/10/2017 8:56 AM CDT Rex Hardy MD LAB BLOOD ORDERABLES Final Res ult Performing Organization Address [facility]/ZIP Co de Phone Number [facility] [address] Department of [place] [address] * (ABNORMAL) Comprehensive metabolic panel (02/10/2017 2:49 AM CDT) [facility] Sodium 124(L) 135 - 145 mmol/L [facility] Potassium, pl 2.5(C) 3.6 - 5.2 mmol/L [facility] Comment:Critical result call ed to and read back by Keyanna Woodward RN on 02/10/2017 at 0500 to jxb CO2 26 22 - 32 mmol/L [facility] BUN 4.1(L) 8.0 - 25.0 mg/dL [facility] Glucose 84 70 - 199 mg/dL [facility] Comment: Interpretive Data Glucose is assumed to be non-fasting. Current interpretive data was last revised 2016. Creatinine 1.19(H) 0.60 - 1.10 mg/dL [facility] Calcium 7.8(L) 8.5 - 10.3 mg/dL [facility] Chloride 85(L) 97 - 110 mmol/L [facility] Albumin 2.2(L) 3.5 - 5.0 g/dL [facility] AST 80(H) 10 - 45 Units/L [facility] ALT 28 7 - 45 Units/L [facility] Alk phos 317(H) 40 - 130 Units/L [facility] Bilirubin, total 9.70(H) 0.00 - 1.20 mg/dL [facility] Protein, pl 4.6(L) 6.5 - 8.5 g/dL [facility] Anion gap 13 2 - 15 mmol/L [facility] Blood specimen (specimen) 02/10/2017 2:49 AM CDT 02/10/2017 4:14 AM CDT Narrative [facility] - 02/10/2017 5:02 AM CDT IN AM AT 0430 us Chacorta Carroll MD LAB BLOOD ORDERABLES Final Result [facility] [address] [place] [address] * eGFR (02/10/2017 2:49 AM CDT) [facility] eGFR 51 mL/min/1.7 3 m2 [facility] Comment: Interpretive Data Reference Interval Normal ?>/= 90 mL/min/1.73m2 Mildly decreased* ? 60 - 89 mL/min/1.73m2 Mildly to moderately decreased ?45 - 59 mL/min/1.73m2 Moderately to severely decreased ??30 - 44 mL/min/1.73m2 Severely decreased ?15 - 29 mL/min/1.73m2 Kidney Failure ?< 15 ??mL/min/1.73m2 *Relative to young adult level If -Croatian multiply value by 1.16. Estimated glomerular filtration rate is determined by the CKD-EPI equation recommended by the National Kidney Foundation (KDIGO 2012 Clinical Practice Guideline for the Evaluation and Management of Chronic Kidney Disease. Kidney Intnl Suppl May 2012;3:1). The CKD-EPI equation should not be used for patients with unstable renal function and has not been validated in children and those over 70. Current interpretive data was last reviewed 2016. Blood specimen (specimen) 02/10/2017 2:49 AM CDT 02/10/2017 4:14 AM CDT Chacorta Carroll MD LAB BLOOD ORDERABLES Final Result [facility] [address] Department of Laboratories [place], [place] [id number] * (ABNORMAL) CBC with auto differential (02/10/2017 2:49 AM CDT) [facility] WBC 5.99 3.80 - 9.90 K/cumm [facility] RBC 2.27(L) 3.90 - 5.20 M/cumm [facility] Hgb 8.6(L) 11.9 - 15.5 g/dL [facility] Hct 23.9(L) 35.6 - 45.5 % [facility] MCV 105.3(H) 81.3 - 96.4 fL [facility] MCH 37.9(H) 27.1 - 33.3 pg [facility] MCHC 36.0(H) 32.3 - 35.7 g/dL [facility] RDW CV 14.2 11.1 - 14.9 % [facility] RDW SD 54.6(H) 35.7 - 48.1 fL [facility] Plt 215 150 - 400 K/cumm [facility] MPV 9.7 9.1 - 12.3 fL [facility] NRBC 0.00 0.00 - 0.20 % [facility] NRBC abs 0.00 0.00 - 0.01 K/cumm [facility] Blood specimen (specimen) 02/10/2017 2:49 AM CDT 02/10/2017 4:13 AM CDT Narrative [facility] - 02/10/2017 4:22 AM CDT IN AM AT 0430 us Chacorta Carroll MD LAB BLOOD ORDERABLES Final Result [facility] [address] [place] [address] * (ABNORMAL) Differential, auto (02/10/2017 2:49 AM CDT) Neutrophil pct 78.0 44.0 - 80.0 % [facility] Imm gran pct 0.2 0.0 - 1.0 % [facility] Lymphocyte pct 12.0(L) 13.0 - 44.0 % [facility] Monocyte pct 8.3 2.0 - 11.0 % [facility] Eosinophil pct 1.2 0.0 - 6.0 % [facility] Basophil pct 0.3 0.0 - 3.0 % [facility] Neutrophil abs 4.67 1.70 - 6.50 K/cumm [facility] Imm gran abs 0.01 0.00 - 0.10 K/cumm [facility] Lymphocyte abs 0.72(L) 0.80 - 3.30 K/cumm [facility] Monocyte abs 0.50 0.20 - 0.80 K/cumm [facility] Eosinophil abs 0.07 0.00 - 0.50 K/cumm [facility] Basophil abs 0.02 0.00 - 0.10 K/cumm [facility] Blood specimen (specimen) 02/10/2017 2:49 AM CDT 02/10/2017 4:13 AM CDT Chacorta Carroll MD LAB BLOOD ORDERABLES Final Result [facility] [address] [place] [address] * SURGICAL PATHOLOGY (02/10/2017 12:00 AM CDT) Narrative 02/10/2017 12:00 AM CDT Ordered by an unspecified provider. Historical Provider LAB PATHOLOGY ORDERABLES Final Result * eGFR (02/09/2017 5:31 PM CDT) eGFR 46 mL/min/1.7 3 m2 [facility] Comment: Interpretive Data Reference Interval Normal ?>/= 90 mL/min/1.73m2 Mildly decreased* ? 60 - 89 mL/min/1.73m2 Mildly to moderately decreased ?45 - 59 mL/min/1.73m2 Moderately to severely decreased ??30 - 44 mL/min/1.73m2 Severely decreased ?15 - 29 mL/min/1.73m2 Kidney Failure ?< 15 ??mL/min/1.73m2 *Relative to young adult level If -Croat[place] multiply value by 1.16. Estimated glomerular filtration rate is determined by the CKD-EPI equation recommended by the National Kidney Foundation (KDIGO 2012 Clinical Practice Guideline for the Evaluation and Management of Chronic Kidney Disease. Kidney Intnl Suppl May 2012;3:1). The CKD-EPI equation should not be used for patients with unstable renal function and has not been validated in children and those over 70. Current interpretive data was last reviewed 2016. Blood specimen (specimen) 02/09/2017 5:31 PM CDT 02/09/2017 5:34 PM CDT us Rex Hardy MD LAB BLOOD ORDERABLES Final Res ult [facility] [address] [place] [address] * (ABNORMAL) Comprehensive metabolic panel (02/09/2017 5:31 PM CDT) Sodium 122(L) 135 - 145 mmol/L [facility] Potassium, pl 3.0(L) 3.6 - 5.2 mmol/L [facility] CO2 27 22 - 32 mmol/L [facility] BUN 5.0(L) 8.0 - 25.0 mg/dL [facility] Glucose 123 70 - 199 mg/dL [facility] Comment: Interpretive Data Glucose is assumed to be non-fasting. Current interpretive data was last revised 2016. Creatinine 1.30(H) 0.60 - 1.10 mg/dL [facility] Calcium 7.8(L) 8.5 - 10.3 mg/dL [facility] Chloride 81(L) 97 - 110 mmol/L [facility] Albumin 2.7(L) 3.5 - 5.0 g/dL [facility] AST 104(H) 10 - 45 Units/L [facility] ALT 34 7 - 45 Units/L [facility] Alk phos 376(H) 40 - 130 Units/L [facility] Bilirubin, total 11.10(H) 0.00 - 1.20 mg/dL [facility] Protein, pl 5.4(L) 6.5 - 8.5 g/dL [facility] Anion gap 14 2 - 15 mmol/L [facility] Blood specimen (specimen) 02/09/2017 5:31 PM CDT 02/09/2017 5:34 PM CDT us Rex Hardy MD LAB BLOOD ORDERABLES Final Res ult [facility] [address] [place] [address] * ERCP Biliary Duct (02/09/2017 3:51 PM CDT) Anatomical Region Laterality Modality Body N/A Radiographic Indira ging 02/09/2017 3:51 PM CDT Narrative 02/09/2017 3:51 PM CDT ENDOSCOPIC RETROGRADE CHOLANGIOPANCREATOGRAPHY HISTORY: Abdominal pain. ??Right upper quadrant pain. FINDINGS: Please see endoscopy lab report for full details and recommendations. Four fluoroscopic spot images were submitted for interpretation. Digester Capper image of the right upper quadrant demonstrates surgical clips from prior cholecystectomy. Images obtained after the opacification of the common bile duct. ??The common bile duct appears to be of normal course and caliber. ??There is a small probable air bubble in the common hepatic duct. The visualized portions of the pancreatic duct are unremarkable. ??The endoscope was removed and there is partial drainage of contrast material. IMPRESSION: ERCP as above. Electronically signed by: Edy Phillips M.D. Radiologist: EDY PHILLIPS M.D. ?? Attending: ??CHACORTA CARROLL Requesting: CHACORTA CARROLL Requesting Fax: ?? Requesting ID: [id number] Attending Fax: ?? Attending ID: ?? [id number] Completed Time: ?? 02/09/2017 10:51 AM Dictated Time: ?N/A Transcribed Time: 02/10/2017 3:48 PM Signed by: ?EDY PHILLIPS on 02/10/2017 3:48 PM Report To 1 ID: Report To 1 Name: , Report To 1 FAX: Report To 2 ID: Report To 2 Name: , Report To 2 FAX: Report To 3 ID: Report To 3 Name: , Report To 3 FAX: NextGen Order #: Procedure Note Miscellaneous, Not In File / Provider, Per, - 02/10/2017 ENDOSCOPIC RETROGRADE CHOLANGIOPANCREATOGRAPHY HISTORY: Abdominal pain. Right upper quadrant pain. FINDINGS: Please see endoscopy lab report for full details and recommendations. Four fluoroscopic spot images were submitted for interpretation. Digester Capper image of the right upper quadrant demonstrates surgical clips from prior cholecystectomy. Images obtained after the opacification of the common bile duct. The common bile duct appears to be of normal course and caliber. There is a small probable air bubble in the common hepatic duct. The visualized portions of the pancreatic duct are unremarkable. The endoscope was removed and there is partial drainage of contrast material. IMPRESSION: ERCP as above. Electronically signed by: Edy Phillips M.D. Radiologist: EDY PHILLIPS M.D. Attending: CHACORTA CARROLL Requesting: CHACORTA CARROLL Requesting Requesting ID: [id number] Attending Attending ID: [id number] Completed Time: 02/09/2017 10:51 AM Dictated Time: N/A Transcribed Time: 02/10/2017 3:48 PM Signed by: EDY PHILLIPS M.D. on 02/10/2017 3:48 PM Report To 1 ID: Report To 1 Name: , Report To 1 FAX: Report To 2 ID: Report To 2 Name: , Report To 2 FAX: Report To 3 ID: Report To 3 Name: , Report To 3 FAX: NextGen Order #: Chacorta Carroll MD IMG FLUOROSCOPY PROCEDURES Edited Result - Final * CHOLANGIOPANCREATOGRAPHY, RETROGRADE, ENDOSCOPIC (02/09/2017 12:00 AM CDT) Anatomical Region Laterality Modality N/A Radiographic Indira ging Narrative 02/09/2017 12:00 AM CDT Ordered by an unspecified provider. 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
--- OUTSIDE RECORDS SUMMARY | 2024-05-03 11:23 | XMS_ITS | Encounter Summary ---
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
--- OUTSIDE RECORDS SUMMARY | 2024-05-03 11:23 | XMS_ITS | Encounter Summary ---
Author Organization [facility] Healthcare Address [address] [place] [address] Care Team Providers Care Mainspring Strip Gauger Name Role Phone Fernie Barfield DO Primary Care Provider Reason for Visit * Reason Comments Nausea Vomiting Encounter Details Date Type Department Care Team (Latest Contact Info) Description 10/11/2017 3:30 PM CDT - 10/14/2017 7:36 PM CDT Hospital Encounter [facility] ICU [address] [place] [address] Rd Davis Jr., MD [address] [place] [address] Marisol Wilder MD [address] [place] [address] [place] [address] Liang Jacobsen MD [address] [place] [address] Amy Ferguson MD [address] [place] [address] [place] [address] Hyponatremia (Primary Dx); Intractable vomiting with nausea, unspecified vomiting type; HERNANDEZ (nonalcoholic steatohepatitis); Dehydration; Colitis Discharge Disposition: Discharge to a short term hospital for IP Social History Tobacco Use Types Packs/Day Years Used Date Smoking Tobacco: Every Day Cigarettes Smokeless Tobacco: Never Alcohol Use Standard Drinks/Week Comments No 0 (1 standard drink = 0.6 oz pur e alcohol) Comments No Sex and Gender Information Value Date Recorded Sex Assigned at Not on file 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 Gender Identity Not on file Sexual Orientation Not on file documented as of this encounter Last Filed Vital Signs Vital Sign Reading Time Taken Comments Blood Pressure 115/89 10/14/2017 7:15 PM CDT Pulse 115 10/14/2017 7:15 PM CDT Temperature 36.7 ??C (98.1 ??F) 10/14/2017 7:15 PM CD T Respiratory Rate 18 10/14/2017 7:15 PM CDT Oxygen Saturation 61% 10/14/2017 6:00 PM CDT Inhaled Oxygen Concentration - - Weight 44.7 kg (98 lb 8.7 oz) 10/13/2017 11:29 A M CDT Height 157.5 cm (5' 2 ) 10/14/2017 6:41 PM CDT Body Mass Index 18.02 10/13/2017 11:29 AM CDT documented in this encounter Discharge Summaries * Amy Olvera MD - 10/14/2017 7:36 PM CDT Inpatient Discharge Summary BRIEF OVERVIEW Admitting Provider: Liang Jacobsen MD Discharge Provider: Amy Ferguson MD Primary Care Physician at Discharge: Fernie Barfield DO [phone] Admission Date: 10/11/2017 Discharge Date: 10/14/17 Primary Discharge Diagnosis: Acute respiratory failure Secondary Discharge Diagnosis: Pneumonia of left lower lobe due to infectious organism (CMS/HCC) Ascites Abdominal pain HERNANDEZ (nonalcoholic steatohepatitis) Anxiety Hypotension Chronic hyponatremia Acute cystitis with hematuria MAINOR (acute kidney injury) (CMS/HCC) Generalized weakness Severe protein-calorie malnutrition (CMS/HCC) * No resolved hospital problems. * DETAILS OF HOSPITAL STAY Presenting Problem/History of Present Illness: 56 y.o. female admitted on 10/11/2017 for nausea and vomiting. She has a history of HTN, HERNANDEZ with recurrent ascites requiring paracentesis every 10-14days. She presented to the ED with acute on chronic emesis, weakness and anorexia. She has also been getting weak and has needed assistance with activities of daily living for the last 2 weeks. She follows with a social work therapist at [facility] for her HERNANDEZ. Her states that her MELD score has never warranted the need for transplant work-up. Her last paracentesis was 4 days ago. In the ED she was noted to be hypotensive; however, she states that herpressure usually run in the 70's and that is what she is on midodrine for. She received 3 L NS bolus in the ED; however, was persistently hypotensive requiring admission to the ICU. Critical care wasconsulted for hypotension refractory to fluid resuscitation. Hospital Course: Patient's work-up included a CT of the abdomen that was consistent with colitis and she was startedon flagyl and zosyn. Her CT also showed extensive ascites, paracentesis planned to r/o sbp; however, pt refused stating I just had it done 4 days ago . She was noted to have non productive cough with increasing oxygen requirement. Antibiotics were broadened to cover for colitis, possible sbp and pna. Transfer to [facility] was again offered; however, her wanted to give it another day to see if she improves. During the course of her admission, she remained hypotensive despite fluid resuscitation and remained on vasopressors. She received 2 units PRBC for hgb of 6.5. Her renal function and vasopressor requirements slowly improved; however, her respiratory status progressively worsened. CXR showed opacification of the L lung concerning for mucus plug. She was comfortable with oxygen saturation staying >92% on 6L NC. When a bronch and a possible paracentesis was again discussed with the patient as well as her , her requested that she be transferred to [facility] for any intervention sincethat is where she usually gets her care. Transfer to [facility] was initiated and pt was accepted. Just prior to her transfer, she acutely decompensated requiring intubation. She was transferred to [facility] on 10/14/17 at 1936. documented in this encounter Medications at Time [...] mg total) by mouth daily 07/02/2017 multivit uykofnwa-tily-CV- calcium (THERA-M) 9 mg iron-400 mcg tabletIndications [...] Disposition Code Departure Means Destination Discharge to a short term hospital for IP documented in this encounter Progress Notes * Amy Olvera MD - 10/14/2017 3:38 PM CDT INPATIENT PROGRESS NOTE - Bookkeeping Clerks Supervisor Rosa Li is a 56 y.o. female at Hospital Day ( LOS: 3 days ) No acute issues overnight. Vasopressor titrated down overnight. Subjective: (+) productive cough Objective: Temp Av.8 ??C (98.2 ??F) Min: 36.1 ??C (97 ??F) Max: 37.2 ??C (99 ??F) BP Min: 88/73 Max: 128/83 Pulse Av.9 Min: 83 Max: 119 Resp Av.3 Min: 16 Max: 31 SpO2 Av.4 % Min: 88 % Max: 99 % O2 Flow Rate (L/min): 6 L/min I/O last 3 completed shifts: In: 5470 [P.O.:230; I.V.:4576; Blood:664] Out: 405 [Urine:405] Weights: Wt Readings from Last 3 Encounters: 10/13/17 44.7 kg (98 lb 8.7 oz) 08/23/17 37.1 kg (81 lb 12.7 oz) 02/11/17 55.4 kg (122 lb 1.5 oz) Physical Exam: General appearance: awake, not in acute distress Neck: supple, no use of accessory muscles Lungs: diminished to auscultation, no rales nor wheezes Heart: regular rate and rhythm Abdomen: soft, non tender, (+) ascites Extremities: warm, no mottling, (+) edema Neuro: no focal deficits Active Scheduled and PRN meds albumin 25 g Q8H SANDRA cefTRIAXone 1,000 mg Q24H SANDRA folic acid 1 mg Daily ipratropium-albuterol 3 mL Q6H SANDRA (RT) metroNIDAZOLE 500 mg Q12H SANDRA midodrine 5 mg TID multivit tolfbbdl-gcbp-AT-calcium 1 tablet Daily pantoprazole 80 mg Daily sodium chloride 0.9% 5-10 mL Q12H SANDRA vancomycin 15 mg/kg Q24H ALPRAZolam 0.25 mg TID PRN HYDROmorphone 0.2 mg Q4H PRN metoclopramide 5 mg Q8H PRN ondansetron 4 mg Q4H PRN prochlorperazine 10 mg Q6H PRN sodium chloride 0.9% 5-20 mL PRN sodium chloride 0.9% 10 mL/hr Continuous PRN traMADol 50 mg QID PRN Lab Review Recent Results (from the past 48 hour(s)) Basic metabolic panel Collection Time: 10/12/17 4:38 PM Result Value Ref Range Sodium 124 (L) 135 - 145 mmol/L Potassium 3.3 3.3 - 4.9 mmol/L Chloride 92 (L) 97 - 110 mmol/L CO2 22 22 - 32 mmol/L BUN 14 8 - 25 mg/dL Glucose 143 70 - 199 mg/dL Creatinine 1.16 (H) 0.60 - 1.10 mg/dL Calcium 7.5 (L) 8.5 - 10.3 mg/dL Anion Gap 10 2 - 15 mmol/L eGFR Collection Time: 10/12/17 4:38 PM Result Value Ref Range GFR 53 mL/min/1.73 m2 Lactate, whole blood Collection Time: 10/12/17 5:04 PM Result Value Ref Range Lactic acid, bld 1.2 0.5 - 2.2 mmol/L Basic metabolic panel Collection Time: 10/12/17 9:44 PM Result Value Ref Range Sodium 126 (L) 135 - 145 mmol/L Potassium 3.6 3.3 - 4.9 mmol/L Chloride 94 (L) 97 - 110 mmol/L CO2 22 22 - 32 mmol/L BUN 14 8 - 25 mg/dL Glucose 155 70 - 199 mg/dL Creatinine 1.10 0.60 - 1.10 mg/dL Calcium 8.2 (L) 8.5 - 10.3 mg/dL Anion Gap 10 2 - 15 mmol/L eGFR Collection Time: 10/12/17 9:44 PM Result Value Ref Range GFR 56 mL/min/1.73 m2 Phosphorus Collection Time: 10/13/17 5:17 AM Result Value Ref Range Phosphorus, pl 3.4 2.3 - 4.5 mg/dL Potassium Collection Time: 10/13/17 5:17 AM Result Value Ref Range Potassium 3.3 3.3 - 4.9 mmol/L Magnesium Collection Time: 10/13/17 5:17 AM Result Value Ref Range Magnesium 2.2 1.6 - 2.4 mg/dL CBC with auto differential Collection Time: 10/13/17 5:17 AM Result Value Ref Range WBC 13.4 (H) 3.8 - 9.9 K/cumm RBC 2.01 (L) 3.90 - 5.20 M/cumm Hgb 6.5 (L) 11.9 - 15.5 g/dL Hct 17.9 (L) 35.6 - 45.5 % MCV 89.1 81.3 - 96.4 fL MCH 32.3 27.1 - 33.3 pg MCHC 36.3 (H) 32.3 - 35.7 g/dL RDW CV 12.3 11.1 - 14.9 % RDW SD 40.0 35.7 - 48.1 fL Plt 321 150 - 400 K/cumm MPV 8.1 (L) 9.1 - 12.3 fL NRBC Abs 0.00 0.00 - 0.01 K/cumm Lactate, whole blood Collection Time: 10/13/17 5:17 AM Result Value Ref Range Lactic acid, bld 1.1 0.5 - 2.2 mmol/L Hepatic function panel Collection Time: 10/13/17 5:17 AM Result Value Ref Range AST 17 10 - 45 Units/L ALT 8 7 - 45 Units/L Alk phos 101 40 - 130 Units/L Bilirubin 0.4 0.1 - 1.2 mg/dL Bilirubin, direct <0.2 0.1 - 0.3 mg/dL Protein, pl 4.4 (L) 6.5 - 8.5 g/dL Albumin 2.8 (L) 3.5 - 5.0 g/dL Protime-INR Collection Time: 10/13/17 5:17 AM Result Value Ref Range PT 16.4 (H) 9.5 - 13.0 sec INR 1.44 (H) 0.90 - 1.20 Differential, auto Collection Time: 10/13/17 5:17 AM Result Value Ref Range Neutrophil absolute 11.5 (H) 1.7 - 6.5 K/cumm Immature granulocyte absolute 0.0 0.0 - 0.1 K/cumm Lymphocytes absolute 1.1 0.8 - 3.3 K/cumm Monocyte absolute 0.6 0.2 - 0.8 K/cumm Eosinophils absolute 0.0 0.0 - 0.5 K/cumm Basophils, abs 0.0 0.0 - 0.1 K/cumm Neutrophils 86.2 % Immature granulocytes 0.4 % Lymphocytes 8.4 % Monocytes 4.8 % Eosinophils 0.1 % Basophils 0.1 % Aerobic culture and gram stain Sputum Collection Time: 10/13/17 7:40 AM Result Value Ref Range Direct Specimen Exam Stain: Abundant squamous epithelial cells seen indicating excessive oropharyngeal contamination. Culture will not be processed further. Please submit another specimen. Results phoned to and read back by: Shanda Orr RN [facility] [phone] on 10/13/2017 10:40:11by: Dean Mak MLT. Report Final Report: This is the final report. ABO/Rh Collection Time: 10/13/17 9:05 AM Result Value Ref Range ABO/RH. O Positive Antibody screen Collection Time: 10/13/17 9:05 AM Result Value Ref Range Jazzy, indirect, Gel Interpretation Negative ABSC Crossmatch Collection Time: 10/13/17 9:05 AM Result Value Ref Range Crossmatch Compatible UNIT NUMBER FOR CROSSMATCH [id number] Crossmatch Compatible UNIT NUMBER FOR CROSSMATCH [id number] Prepare RBC: 2 Units Collection Time: 10/13/17 10:53 AM Result Value Ref Range Units requested 2 Units requested Ready Unit Number [id number] Product code [id number] Blood Expiration Date Product Blood Type (for scanning) 5100 Product Blood Type OPOS Dispense Status DISPENSED Unit Number [id number] Product code [id number] Blood Expiration Date [id number] Product Blood Type (for scanning) 5100 Product Blood Type OPOS Dispense Status DISPENSED Phosphorus Collection Time: 10/14/17 5:56 AM Result Value Ref Range Phosphorus, pl 3.0 2.3 - 4.5 mg/dL Potassium Collection Time: 10/14/17 5:56 AM Result Value Ref Range Potassium 3.4 3.3 - 4.9 mmol/L Magnesium Collection Time: 10/14/17 5:56 AM Result Value Ref Range Magnesium 2.1 1.6 - 2.4 mg/dL CBC with auto differential Collection Time: 10/14/17 5:56 AM Result Value Ref Range WBC 14.1 (H) 3.8 - 9.9 K/cumm RBC 3.27 (L) 3.90 - 5.20 M/cumm Hgb 10.4 (L) 11.9 - 15.5 g/dL Hct 29.0 (L) 35.6 - 45.5 % MCV 88.7 81.3 - 96.4 fL MCH 31.8 27.1 - 33.3 pg MCHC 35.9 (H) 32.3 - 35.7 g/dL RDW CV 13.0 11.1 - 14.9 % RDW SD 42.5 35.7 - 48.1 fL Plt 174 150 - 400 K/cumm MPV 8.4 (L) 9.1 - 12.3 fL NRBC Abs 0.00 0.00 - 0.01 K/cumm Hepatic function panel Collection Time: 10/14/17 5:56 AM Result Value Ref Range AST 17 10 - 45 Units/L ALT 7 7 - 45 Units/L Alk phos 76 40 - 130 Units/L Bilirubin 1.2 0.1 - 1.2 mg/dL Bilirubin, direct 0.4 (H) 0.1 - 0.3 mg/dL Protein, pl 4.7 (L) 6.5 - 8.5 g/dL Albumin 3.5 3.5 - 5.0 g/dL Sodium level Collection Time: 10/14/17 5:56 AM Result Value Ref Range Sodium 122 (L) 135 - 145 mmol/L Differential, auto Collection Time: 10/14/17 5:56 AM Result Value Ref Range Neutrophil absolute 12.4 (H) 1.7 - 6.5 K/cumm Immature granulocyte absolute 0.1 0.0 - 0.1 K/cumm Lymphocytes absolute 1.0 0.8 - 3.3 K/cumm Monocyte absolute 0.6 0.2 - 0.8 K/cumm Eosinophils absolute 0.0 0.0 - 0.5 K/cumm Basophils, abs 0.0 0.0 - 0.1 K/cumm Neutrophils 88.0 % Immature granulocytes 0.4 % Lymphocytes 7.3 % Monocytes 4.1 % Eosinophils 0.1 % Basophils 0.1 % LINES: PICC DAY# 2 Atkinson Day # 0 TUBES: Intubation DAY# 0 Labs/chart/meds reviewed. Assessment Principal Problem: Pneumonia of left lower lobe due to infectious organism (CMS/HCC) Active Problems: Ascites Abdominal pain HERNANDEZ (nonalcoholic steatohepatitis) Anxiety Hypotension Chronic hyponatremia Acute cystitis with hematuria MAINOR (acute kidney injury) (CMS/HCC) Generalized weakness Severe protein-calorie malnutrition (CMS/HCC) Plan: 1. Pulm - acute hypoxic respiratory distress - L sided PNA, mucus plug - cxr shows persistent L hemithorax opacification, remain on 6L NC with O2 sat > 92% - incentive spirometry, chest PT (pt has not been able to tolerate) - will need a bronch if respiratory status worsens ?? 2. CVS - septic shock - s/p fluid bolus - titrate vasopressor to sbp >90mmHg - cont midodrine ?? 3. Renal - MAINOR and hyponatremia secondary to hypovolemia --- improving - electrolyte replacement protocol - cont albumin q 8hrs ?? 4. ID - sepsis from colitis; possible SBP; HCAP - flagyl and ceftriaxone D4 - vanc D2 added for gpc coverage - pt had refused paracentesis on admission and was empirically started on antibiotics for presumed sbp ?? 5. GI - HERNANDEZ with a MELD of 11 - clear liquid diet and advance as tolerated - CT of the abdomen showed extensive ascites; colitis, possibly infectious, inflammatory or ischemic; however, pt asymptomatic and not complaining of shortness of breath or abdominal pain - GI following ?? 6. Heme - acute blood loss anemia - s/p 2 units PRBC on 10/13/17 - stool occult - scd for dvt prophylaxis ?? 7. Endo - no acute issues ?? 8. Neuro - chronic pain - resume home prn tramadol - prn dilaudid for breakthrough pain DVT Prophylaxis?: SCDs Patient's now requesting that pt be transferred to [facility], states that he prefers that any intervention be done there since that is where she gets her care. Transfer to [facility] initiated, pt accepted now awaiting bed availability. Amy Olvera MD 10/14/2017 3:38 PM TOTAL CRITICAL CARE TIME EXCLUSIVE OF ALL PROCEDURES WAS 40 MINUTES. * Cesar Goins - 10/14/2017 2:00 PM CDT SC: pt not currently available. Left pt a note/card offering SC services if she desires. * Sol Delgado RD - 10/14/2017 12:[address] FOLLOW UP ASSESSMENT HT;5'2 WT;98 LBS IBW;110+-10% 15 NIKKI, BRUISED BILATERAL HANDS AND ARMS. NA 122, DIRECT BILIRUBIN .4, H/H 10.4/29.0(10/14). ALBUMIN, ROCEPHIN, FOLIC ACID, FLAGYL, VANCOMYCIN, LEVOPHED, REGLAN, ZOFRAN, COMPAZINE. PT IS 89% IBW, 17.4 BMI, MILD PROTEIN CALORIE MALNUTRITION. INTAKE REFUSING TO BITES ON PUREED CONSISTENT CARBOHYDRATE DIET. PER ALEJANDRO FAUST, PT C/O NO APPETITE AND PT C/O SOMETHING BEING STUCK IN HER THROAT . PT MAY BENEFIT FROM TUBE FEEDING D/T POOR PO INTAKE. PT'S UIJ=3046 CALORIES(35 KATHYA/KG) PRO NEEDS=36-45 (.8-1.0 G/KG ) FLUID BQPYF=925 ML FLUID/DAY. RECOMMEND 2CAL HN AT 33 ML/HR=EEE, 66 G PROTEIN, AND 548 ML FLUID/DAY. REC H20 FLUSH EVERY 8 HOURS OF 100 ML/FLUSH. START FEEDING AT 13 ML/HR X 8 HOURS, INCREASING BY 10 ML EVERY 8 HOURS UNTIL 33 ML/HR IS REACHED, UNLESS CONTRAINDICATED. HIGH NUTRITIONAL RISK. * Jeanmarie Rodriguez [facility] - 10/14/2017 7:01 AM CDT Electrolyte monitoring performed by pharmacy on labs from 10/14/17 05:56, Na+=122 K+=3.4 Mg+=2.1 Phos=3.0 .Potassium chloride 40 meq orally X 1 dose per pharmacy electrolyte replacement protocol for potassium = 3.4 on 10/14/17 Pharmacy will continue to follow daily. * Amy Olvera MD - 10/13/2017 3:37 PM CDT INPATIENT PROGRESS NOTE - Bookkeeping Clerks Supervisor Rosa Li is a 56 y.o. female at Hospital Day ( LOS: 2 days ) Episode of desaturation overnight requiring increase oxygen support. Subjective: feels better, (+) productive cough Objective: Temp Av.9 ??C (98.4 ??F) Min: 36.6 ??C (97.8 ??F) Max: 37.6 ??C (99.6 ??F) BP Min: 68/58 Max: 111/78 Pulse Av.4 Min: 80 Max: 115 Resp Av.8 Min: 14 Max: 37 SpO2 Av.4 % Min: 75 % Max: 100 % O2 Flow Rate (L/min): 6 L/min I/O last 3 completed shifts: In: 6184 [P.O.:360; I.V.:4524; IV Piggyback:1300] Out: 900 [Urine:900] Weights: Wt Readings from Last 3 Encounters: 10/13/17 44.7 kg (98 lb 8.7 oz) 08/23/17 37.1 kg (81 lb 12.7 oz) 02/11/17 55.4 kg (122 lb 1.5 oz) Physical Exam: General appearance: awake, alert, not in acute distress Neck: supple, no use of accessory muscles Lungs: diminished to auscultation, no rales nor wheezes Heart: regular rate and rhythm Abdomen: soft, non tender Extremities: warm, no mottling Neuro: no focal deficits Active Scheduled and PRN meds albumin 25 g Q8H SANDRA cefTRIAXone 1,000 mg Q24H SANDRA folic acid 1 mg Daily ipratropium-albuterol 3 mL Q6H SANDRA (RT) metroNIDAZOLE 500 mg Q12H SANDRA midodrine 5 mg TID multivit pjfzauco-bdhi-PD-calcium 1 tablet Daily pantoprazole 80 mg Daily sodium chloride 0.9% 5-10 mL Q12H SANDRA vancomycin 15 mg/kg Q24H ALPRAZolam 0.25 mg TID PRN HYDROmorphone 0.2 mg Q4H PRN metoclopramide 5 mg Q8H PRN ondansetron 4 mg Q4H PRN prochlorperazine 10 mg Q6H PRN sodium chloride 0.9% 5-20 mL PRN sodium chloride 0.9% 10 mL/hr Continuous PRN Lab Review Recent Results (from the past 48 hour(s)) ECG 12 lead Collection Time: 10/11/17 4:09 PM Result Value Ref Range Patient age 56 years Interpretation Text SINUS RHYTHMLOW QRS VOLTAGEINCOMPLETE RIGHT BUNDLE BRANCH BLOCKPOSSIBLE ANTERIOR MYOCARDIAL INFARCTION , PROBABLY OLDABNORMAL ECGNO PREVIOUS TRACING Ventricular Rate EKG/Min 90 /min P Wave Duration 100 ms QRS-Interval (MSEC) 102 ms FL-Interval (MSEC) 168 ms QT Interval 372 ms QTc 424 ms QTC Interval ms P Colt 80 deg QRS Colt 88 deg T Colt 32 deg CBC with auto differential Collection Time: 10/11/17 4:16 PM Result Value Ref Range WBC 12.5 (H) 3.8 - 9.9 K/cumm RBC 2.96 (L) 3.90 - 5.20 M/cumm Hgb 9.4 (L) 11.9 - 15.5 g/dL Hct 25.3 (L) 35.6 - 45.5 % MCV 85.5 81.3 - 96.4 fL MCH 31.8 27.1 - 33.3 pg MCHC 37.2 (H) 32.3 - 35.7 g/dL RDW CV 11.8 11.1 - 14.9 % RDW SD 36.5 35.7 - 48.1 fL Plt 472 (H) 150 - 400 K/cumm MPV 8.1 (L) 9.1 - 12.3 fL NRBC Abs 0.00 0.00 - 0.01 K/cumm Comprehensive metabolic panel Collection Time: 10/11/17 4:16 PM Result Value Ref Range Sodium 115 (Critical) 135 - 145 mmol/L Potassium 4.6 3.3 - 4.9 mmol/L CO2 24 22 - 32 mmol/L BUN 18 8 - 25 mg/dL Glucose 139 70 - 199 mg/dL Creatinine 1.36 (H) 0.60 - 1.10 mg/dL Calcium 7.7 (L) 8.5 - 10.3 mg/dL Chloride 80 (L) 97 - 110 mmol/L Albumin 1.7 (L) 3.5 - 5.0 g/dL AST 24 10 - 45 Units/L ALT 14 7 - 45 Units/L Alk phos 204 (H) 40 - 130 Units/L Bilirubin 0.5 0.1 - 1.2 mg/dL Protein, pl 4.1 (L) 6.5 - 8.5 g/dL Anion Gap 11 2 - 15 mmol/L Lactate, whole blood Collection Time: 10/11/17 4:16 PM Result Value Ref Range Lactic acid, bld 2.6 (H) 0.5 - 2.2 mmol/L Lipase Collection Time: 10/11/17 4:16 PM Result Value Ref Range Lipase 15 10 - 99 Units/L Troponin T Collection Time: 10/11/17 4:16 PM Result Value Ref Range Troponin T <0.01 0.00 - 0.06 ng/mL Differential, auto Collection Time: 10/11/17 4:16 PM Result Value Ref Range Neutrophil absolute 10.8 (H) 1.7 - 6.5 K/cumm Immature granulocyte absolute 0.1 0.0 - 0.1 K/cumm Lymphocytes absolute 1.0 0.8 - 3.3 K/cumm Monocyte absolute 0.6 0.2 - 0.8 K/cumm Eosinophils absolute 0.0 0.0 - 0.5 K/cumm Basophils, abs 0.0 0.0 - 0.1 K/cumm Neutrophils 86.1 % Immature granulocytes 0.5 % Lymphocytes 7.9 % Monocytes 5.1 % Eosinophils 0.3 % Basophils 0.1 % eGFR Collection Time: 10/11/17 4:16 PM Result Value Ref Range GFR 44 mL/min/1.73 m2 Blood culture Blood Collection Time: 10/11/17 5:07 PM Result Value Ref Range Report Preliminary Report: No growth to date. Blood culture Blood Collection Time: 10/11/17 5:13 PM Result Value Ref Range Report Preliminary Report: No growth to date. Urinalysis reflex to microscopic and culture Urine, clean voided Collection Time: 10/11/17 5:22 PM Result Value Ref Range Color, ur Ngoc (A) Yellow Clarity, ur Cloudy (A) Clear Specific gravity, ur 1.015 1.010 - 1.025 pH, urine 5.5 Protein, ur ql Trace Negative Glucose, ur ql Negative Negative Ketones, ur Negative Negative Bilirubin, ur Negative Negative Blood, ur Negative Negative Urobilinogen, ur 0.2 mg/dL Nitrite, ur Negative Negative Leukocyte esterase, ur 2+ (A) Negative Urinalysis, microscopic only Collection Time: 10/11/17 5:22 PM Result Value Ref Range WBC, ur 11-20 (A) 0 - 5 /HPF RBC, ur 6-10 (A) 0 - 5 /HPF Epithelial cells, squamous, ur 11-20 (A) 0 - 5 /HPF Bacteria, ur 1+ (A) Hyaline casts, ur 1-5 0 - 10 /LPF Sodium, urine, random Collection Time: 10/11/17 5:22 PM Result Value Ref Range Sodium, ur <20 mEq/L Urine culture Collection Time: 10/11/17 5:22 PM Result Value Ref Range Report Final Report: Insignificant growth based on current clinical standards. MRSA culture Nasal Collection Time: 10/11/17 5:28 PM Result Value Ref Range Report Final Report: Negative Protime-INR Collection Time: 10/11/17 9:48 PM Result Value Ref Range PT 13.3 (H) 9.5 - 13.0 sec INR 1.17 0.90 - 1.20 MRSA culture Nasal Collection Time: 10/11/17 11:27 PM Result Value Ref Range Report Final Report: Negative Magnesium Collection Time: 10/12/17 1:29 AM Result Value Ref Range Magnesium 1.7 1.6 - 2.4 mg/dL Renal function panel Collection Time: 10/12/17 1:29 AM Result Value Ref Range Sodium 120 (Critical) 135 - 145 mmol/L Potassium 4.2 3.3 - 4.9 mmol/L Chloride 86 (L) 97 - 110 mmol/L CO2 21 (L) 22 - 32 mmol/L Anion Gap 13 2 - 15 mmol/L Glucose 154 70 - 199 mg/dL BUN 17 8 - 25 mg/dL Creatinine 1.26 (H) 0.60 - 1.10 mg/dL Calcium 7.3 (L) 8.5 - 10.3 mg/dL Phosphorus, pl 4.7 (H) 2.3 - 4.5 mg/dL Albumin 1.6 (L) 3.5 - 5.0 g/dL eGFR Collection Time: 10/12/17 1:29 AM Result Value Ref Range GFR 48 mL/min/1.73 m2 CBC with auto differential Collection Time: 10/12/17 5:49 AM Result Value Ref Range WBC 13.5 (H) 3.8 - 9.9 K/cumm RBC 2.81 (L) 3.90 - 5.20 M/cumm Hgb 8.9 (L) 11.9 - 15.5 g/dL Hct 24.2 (L) 35.6 - 45.5 % MCV 86.1 81.3 - 96.4 fL MCH 31.7 27.1 - 33.3 pg MCHC 36.8 (H) 32.3 - 35.7 g/dL RDW CV 11.8 11.1 - 14.9 % RDW SD 37.4 35.7 - 48.1 fL Plt 479 (H) 150 - 400 K/cumm MPV 8.0 (L) 9.1 - 12.3 fL NRBC Abs 0.00 0.00 - 0.01 K/cumm Comprehensive metabolic panel Collection Time: 10/12/17 5:49 AM Result Value Ref Range Sodium 122 (L) 135 - 145 mmol/L Potassium 3.8 3.3 - 4.9 mmol/L CO2 22 22 - 32 mmol/L BUN 17 8 - 25 mg/dL Glucose 210 (H) 70 - 199 mg/dL Creatinine 1.32 (H) 0.60 - 1.10 mg/dL Calcium 7.4 (L) 8.5 - 10.3 mg/dL Chloride 87 (L) 97 - 110 mmol/L Albumin 1.8 (L) 3.5 - 5.0 g/dL AST 22 10 - 45 Units/L ALT 12 7 - 45 Units/L Alk phos 172 (H) 40 - 130 Units/L Bilirubin 0.4 0.1 - 1.2 mg/dL Protein, pl 3.8 (L) 6.5 - 8.5 g/dL Anion Gap 13 2 - 15 mmol/L Phosphorus Collection Time: 10/12/17 5:49 AM Result Value Ref Range Phosphorus, pl 4.7 (H) 2.3 - 4.5 mg/dL Magnesium Collection Time: 10/12/17 5:49 AM Result Value Ref Range Magnesium 2.9 (H) 1.6 - 2.4 mg/dL Differential, auto Collection Time: 10/12/17 5:49 AM Result Value Ref Range Neutrophil absolute 12.3 (H) 1.7 - 6.5 K/cumm Immature granulocyte absolute 0.1 0.0 - 0.1 K/cumm Lymphocytes absolute 0.5 (L) 0.8 - 3.3 K/cumm Monocyte absolute 0.6 0.2 - 0.8 K/cumm Eosinophils absolute 0.0 0.0 - 0.5 K/cumm Basophils, abs 0.0 0.0 - 0.1 K/cumm Neutrophils 91.1 % Immature granulocytes 0.4 % Lymphocytes 3.7 % Monocytes 4.7 % Eosinophils 0.0 % Basophils 0.1 % eGFR Collection Time: 10/12/17 5:49 AM Result Value Ref Range GFR 45 mL/min/1.73 m2 Basic metabolic panel Collection Time: 10/12/17 10:01 AM Result Value Ref Range Sodium 122 (L) 135 - 145 mmol/L Potassium 3.3 3.3 - 4.9 mmol/L Chloride 88 (L) 97 - 110 mmol/L CO2 23 22 - 32 mmol/L BUN 17 8 - 25 mg/dL Glucose 185 70 - 199 mg/dL Creatinine 1.25 (H) 0.60 - 1.10 mg/dL Calcium 7.5 (L) 8.5 - 10.3 mg/dL Anion Gap 11 2 - 15 mmol/L eGFR Collection Time: 10/12/17 10:01 AM Result Value Ref Range GFR 48 mL/min/1.73 m2 Basic metabolic panel Collection Time: 10/12/17 4:38 PM Result Value Ref Range Sodium 124 (L) 135 - 145 mmol/L Potassium 3.3 3.3 - 4.9 mmol/L Chloride 92 (L) 97 - 110 mmol/L CO2 22 22 - 32 mmol/L BUN 14 8 - 25 mg/dL Glucose 143 70 - 199 mg/dL Creatinine 1.16 (H) 0.60 - 1.10 mg/dL Calcium 7.5 (L) 8.5 - 10.3 mg/dL Anion Gap 10 2 - 15 mmol/L eGFR Collection Time: 10/12/17 4:38 PM Result Value Ref Range GFR 53 mL/min/1.73 m2 Lactate, whole blood Collection Time: 10/12/17 5:04 PM Result Value Ref Range Lactic acid, bld 1.2 0.5 - 2.2 mmol/L Basic metabolic panel Collection Time: 10/12/17 9:44 PM Result Value Ref Range Sodium 126 (L) 135 - 145 mmol/L Potassium 3.6 3.3 - 4.9 mmol/L Chloride 94 (L) 97 - 110 mmol/L CO2 22 22 - 32 mmol/L BUN 14 8 - 25 mg/dL Glucose 155 70 - 199 mg/dL Creatinine 1.10 0.60 - 1.10 mg/dL Calcium 8.2 (L) 8.5 - 10.3 mg/dL Anion Gap 10 2 - 15 mmol/L eGFR Collection Time: 10/12/17 9:44 PM Result Value Ref Range GFR 56 mL/min/1.73 m2 Phosphorus Collection Time: 10/13/17 5:17 AM Result Value Ref Range Phosphorus, pl 3.4 2.3 - 4.5 mg/dL Potassium Collection Time: 10/13/17 5:17 AM Result Value Ref Range Potassium 3.3 3.3 - 4.9 mmol/L Magnesium Collection Time: 10/13/17 5:17 AM Result Value Ref Range Magnesium 2.2 1.6 - 2.4 mg/dL CBC with auto differential Collection Time: 10/13/17 5:17 AM Result Value Ref Range WBC 13.4 (H) 3.8 - 9.9 K/cumm RBC 2.01 (L) 3.90 - 5.20 M/cumm Hgb 6.5 (L) 11.9 - 15.5 g/dL Hct 17.9 (L) 35.6 - 45.5 % MCV 89.1 81.3 - 96.4 fL MCH 32.3 27.1 - 33.3 pg MCHC 36.3 (H) 32.3 - 35.7 g/dL RDW CV 12.3 11.1 - 14.9 % RDW SD 40.0 35.7 - 48.1 fL Plt 321 150 - 400 K/cumm MPV 8.1 (L) 9.1 - 12.3 fL NRBC Abs 0.00 0.00 - 0.01 K/cumm Lactate, whole blood Collection Time: 10/13/17 5:17 AM Result Value Ref Range Lactic acid, bld 1.1 0.5 - 2.2 mmol/L Hepatic function panel Collection Time: 10/13/17 5:17 AM Result Value Ref Range AST 17 10 - 45 Units/L ALT 8 7 - 45 Units/L Alk phos 101 40 - 130 Units/L Bilirubin 0.4 0.1 - 1.2 mg/dL Bilirubin, direct <0.2 0.1 - 0.3 mg/dL Protein, pl 4.4 (L) 6.5 - 8.5 g/dL Albumin 2.8 (L) 3.5 - 5.0 g/dL Protime-INR Collection Time: 10/13/17 5:17 AM Result Value Ref Range PT 16.4 (H) 9.5 - 13.0 sec INR 1.44 (H) 0.90 - 1.20 Differential, auto Collection Time: 10/13/17 5:17 AM Result Value Ref Range Neutrophil absolute 11.5 (H) 1.7 - 6.5 K/cumm Immature granulocyte absolute 0.0 0.0 - 0.1 K/cumm Lymphocytes absolute 1.1 0.8 - 3.3 K/cumm Monocyte absolute 0.6 0.2 - 0.8 K/cumm Eosinophils absolute 0.0 0.0 - 0.5 K/cumm Basophils, abs 0.0 0.0 - 0.1 K/cumm Neutrophils 86.2 % Immature granulocytes 0.4 % Lymphocytes 8.4 % Monocytes 4.8 % Eosinophils 0.1 % Basophils 0.1 % Aerobic culture and gram stain Sputum Collection Time: 10/13/17 7:40 AM Result Value Ref Range Direct Specimen Exam Stain: Abundant squamous epithelial cells seen indicating excessive oropharyngeal contamination. Culture will not be processed further. Please submit another specimen. Results phoned to and read back by: Shanda Orr RN [facility] [phone] on 10/13/2017 10:40:11by: Dean Mak MLT. ABO/Rh Collection Time: 10/13/17 9:05 AM Result Value Ref Range ABO/RH. O Positive Antibody screen Collection Time: 10/13/17 9:05 AM Result Value Ref Range Jazzy, indirect, Gel Interpretation Negative ABSC Crossmatch Collection Time: 10/13/17 9:05 AM Result Value Ref Range Crossmatch Compatible UNIT NUMBER FOR CROSSMATCH [id number] Crossmatch Compatible UNIT NUMBER FOR CROSSMATCH [id number] Prepare RBC: 2 Units Collection Time: 10/13/17 10:53 AM Result Value Ref Range Units requested 2 Units requested Ready Unit Number [id number] Product code [id number] Blood Expiration Date Product Blood Type (for scanning) 5100 Product Blood Type OPOS Dispense Status DISPENSED Unit Number [id number] Product code [id number] Blood Expiration Date Product Blood Type (for scanning) 5100 Product Blood Type OPOS Dispense Status DISPENSED LINES: PICC DAY# 1 Atkinson Day # 0 TUBES: Intubation DAY# 0 Labs/chart/meds reviewed. Assessment Principal Problem: Pneumonia of left lower lobe due to infectious organism (CMS/HCC) Active Problems: Ascites Abdominal pain HERNANDEZ (nonalcoholic steatohepatitis) Anxiety Hypotension Chronic hyponatremia Acute cystitis with hematuria MAINOR (acute kidney injury) (CMS/HCC) Generalized weakness Severe protein-calorie malnutrition (CMS/HCC) Plan: 1. Pulm - acute hypoxic respiratory distress - L sided PNA, mucus plug - cxr shows L hemithorax opacification - incentive spirometry, chest PT ?? 2. CVS - septic shock - s/p fluid bolus - titrate vasopressor to sbp >90mmHg - cont midodrine ?? 3. Renal - MAINOR and hyponatremia secondary to hypovolemia --- improving - electrolyte replacement protocol - cont albumin q 8hrs ?? 4. ID - sepsis from colitis; possible SBP; HCAP - flagyl and ceftriaxone D3 - vanc D1 added for gpc coverage - lactic acid improving ?? 5. GI - HERNANDEZ with a MELD of 11 - clear liquid diet and advance as tolerated - CT of the abdomen showed extensive ascites; colitis, possibly infectious, inflammatory or ischemic; however, pt asymptomatic and not complaining of shortness of breath or abdominal pain - GI consulted ?? 6. Heme - acute blood loss anemia - transfuse 2 units PRBC - stool occult - scd for dvt prophylaxis ?? 7. Endo - no acute issues ?? 8. Neuro - chronic pain - resume home prn tramadol - prn dilaudid for breakthrough pain DVT Prophylaxis?: SCDs Amy Olvera MD 10/13/2017 3:38 PM TOTAL CRITICAL CARE TIME EXCLUSIVE OF ALL PROCEDURES WAS 40 MINUTES. * Cesar Goins - 10/13/2017 12:11 PM CDT SC: pt's physical appearance better. Spouse present; very attentive to pt. Preparing to assist pt in eating lunch; hoping pt might be able to keep it down. No SC needed at this time. * Kings Silva LCSW - 10/13/2017 10:24 AM CDT Beef Grinder met with patient to open case. addiction social worker met with patient, who was accompanied by her , to discuss admission assessment. Patient was alert and oriented. Patient and husbandboth expressed a desire for patient to receive physical therapy services. addiction social worker advised patient that addiction social worker will follow her case and will be ensuring that the proper teams are involved when appropriate. addiction social worker was informed that patient has a wheeled walker that converts intoa wheelchair, which she uses most of the time. Patient's provides the majority of her care including preparing meals, grocery shopping, and other tasks the patient may require assistance with. Patient stated that she does have a friend who also provides some assistance when her is at work. Patient expressed a concern regarding SNFs that will accept her insurance, but was reassuredthat addiction social worker will be following her case and will be in contact when the patient requires a lesser level of care. Patient and both discussed the fact that finances are ???tight?? 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 Again, child welfare social worker explained that addiction social worker will continue to follow the situation and do their best to ensure that patient's needs are met. addiction social worker left business card and encouraged patient to contact addiction social worker if any changes were to occur and patient agreed. 10/13/17 0951 Referral Data Referral Source Physician County Information [facility] Patient Information Primary Caregiver Spouse Accompanied by/Relationship Ralph Support System Spouse/Significant Other;Children Support system contact info (name, phone, availablity) Ralph [phone] Legal Information Have you reviewed your Advance Directive and is it valid for this stay? No Prior Level of Functioning Durable Medical Equipment Walker (wheeled);Wheelchair;Toilet Riser;Tub Bench;Other (Comment) (shower wand) Living Arrangement House Ambulation Needs Assistance (Comment) Bed/Chair transfers Needs assistance (Comment) ( assists) Dressing Needs Assistance (Comment) ( provides) Skin Integrity Intact Bathing/Grooming Needs assistance (Comment) ( assists) Grocery Shopping Needs Assistance (Comment) Meal preparation Needs Assistance (Comment) Housework Needs Assistance (Comment) Medication management Needs Assistance (Comment) Using Telephone Assistance Needed (Comment) (only if pt drops phone to floor) Behavior Oriented Income Information Income Source SSD/SSI Income/Expense Information Significantly in debt/bankrupt Referral To Community Resources Homemaker services Potential Discharge Needs Dialysis No Psychiatric services No * Jeanmarie Rodriguez [facility] - 10/13/2017 6:30 AM CDT Potassium chloride 40 meq ivpb run X 1 dose per pharmacy electrolyte replacement protocol for potassium = 3.3 on 10/13/17 (currently NPO for test) changed from oral dose. * Jeanmarie Rodriguez [facility] - 10/13/2017 6:17 AM CDT Electrolyte monitoring performed by pharmacy on labs from 10/13/17 05:17, K+=3.3 Mg+=2.2 Phos=3.4 .Potassium chloride 40 meq orally X 1 dose per pharmacy electrolyte replacement protocol for potassium = 3.3 on 10/13/17 Pharmacy will continue to follow daily. * Jorge Malave [facility] - 10/12/2017 9:45 PM CDT Vancomycin 500mg IV q 24 hrs initiated per protocol for weight=41.4 kg, CrCl= 35.8 ml/min, vanco trough 10/15 at 2100 . Pharmacy will monitor and adjust doses * Na Alberto [facility] - 10/12/2017 4:53 PM CDT Dose of enoxaparin adjusted per renal protocol for CrCl=>30ml/min (HaWx=123. ml/min) * Cesar Goins - 10/12/2017 1:13 PM CDT SC referral: pt in bed; interactive. Stated she is having difficulty keeping things down. Has been throwing up. Has lost weight; electrolyte imbalance. Pt has mormonism affiliation but is not active in a cheondoism. Has hope that she might begin regaining weight; return to her accustomed life. Pt wasreceptive to offer of prayer. Prayed c pt. * Na Alberto RP - 10/12/2017 12:48 PM CDT Electrolyte monitoring performed by pharmacy on labs from 1001 10/12/17, Na+=122 K+=3.3 Mg++=2.9 (0549) Phos=4.7 at 0549) Potassium chloride 40 meq po x1 replacement given. Pharmacy will continue to follow daily. * Montse Leo, RD - 10/12/2017 10:38 AM CDT Adult Nutrition Initial Assessment Name:Rosa Li :1960 Age:56 y.o. Sex: female Admission Date:10/11/2017 INTRACTABLE VOMITING WITH NAUSEA, UNSPECIFIED VOMITING TYPE Nikki Scale Score: 15 no skin breakdown seen. Allergies: Oxycodone and Demerol [meperidine] Dietary Orders Start Ordered 10/12/17 0108 Adult Diet Clear Liquid Diet effective now Question: ([facility]) Diet Type Answer: Clear Liquid 10/12/17 0113 PO Intake = No po intake seen. Intake/Output Summary (Last 24 hours) at 10/12/17 1041 Last data filed at 05/29/18 1000 Gross per 24 hour Intake 5121 ml Output 0 ml Net 5121 ml Anthropometrics Weight: 41.4 kg (91 lb 4.3 oz) Admission Weight : 41.4 kg Weight Change: 4.65 kg (10.27 lbs) IBW/kg (Calculated) : 52.2 kg Height: 160 cm (5' 3 ) Weight in (lb) to have BMI = 25: 140.8 BMI (Calculated): 16.2 79% IBW Hct Date Value Ref Range Status 10/12/2017 24.2 (L) 35.6 - 45.5 % Final Glucose Date Value Ref Range Status 10/12/2017 185 70 - 199 mg/dL Final Comment: Interpretive Data Fasting glucose >/= 126 mg/dl is diagnostic for diabetes. Fasting is defined as no caloric intake for at least 8 hours. Fasting glucose between 100 mg/dl to 125 mg/dl is diagnostic of prediabetes. In a patient with classic symptoms of hyperglycemia or hyperglycemic crisis, a random glucose >/= 200 mg/dl is diagnostic for diabetes. In the absence of unequivocal hyperglycemia, results should be confirmed by repeat testing. The classification and Diagnosis of Diabetes Diabetes Care 2017;40 (Suppl. 1):S11. Current interpretive data was last revised 2017. 10/12/2017 210 (H) 70 - 199 mg/dL Final Comment: Interpretive Data Fasting glucose >/= 126 mg/dl is diagnostic for diabetes. Fasting is defined as no caloric intake for at least 8 hours. Fasting glucose between 100 mg/dl to 125 mg/dl is diagnostic of prediabetes. In a patient with classic symptoms of hyperglycemia or hyperglycemic crisis, a random glucose >/= 200 mg/dl is diagnostic for diabetes. In the absence of unequivocal hyperglycemia, results should be confirmed by repeat testing. The classification and Diagnosis of Diabetes Diabetes Care 2017;40 (Suppl. 1):S11. Current interpretive data was last revised 2017. 10/12/2017 154 70 - 199 mg/dL Final Comment: Interpretive Data Fasting glucose >/= 126 mg/dl is diagnostic for diabetes. Fasting is defined as no caloric intake for at least 8 hours. Fasting glucose between 100 mg/dl to 125 mg/dl is diagnostic of prediabetes. In a patient with classic symptoms of hyperglycemia or hyperglycemic crisis, a random glucose >/= 200 mg/dl is diagnostic for diabetes. In the absence of unequivocal hyperglycemia, results should be confirmed by repeat testing. The classification and Diagnosis of Diabetes Diabetes Care 2017;40 (Suppl. 1):S11. Current interpretive data was last revised 2017. Hgb Date Value Ref Range Status 10/12/2017 8.9 (L) 11.9 - 15.5 g/dL Final Potassium Date Value Ref Range Status 10/12/2017 3.3 3.3 - 4.9 mmol/L Final Creatinine Date Value Ref Range Status 10/12/2017 1.25 (H) 0.60 - 1.10 mg/dL Final Sodium Date Value Ref Range Status 10/12/2017 122 (L) 135 - 145 mmol/L Final Calcium Date Value Ref Range Status 10/12/2017 7.5 (L) 8.5 - 10.3 mg/dL Final Albumin Date Value Ref Range Status 10/12/2017 1.8 (L) 3.5 - 5.0 g/dL Final Nutrition Calculations Calculated Energy Needs Using Equations Weight Used for Equation Calculations (RD Determined): 41.3 kg (91 lb) Weight: 41.4 kg (91 lb 4.3 oz) Height: 160 cm (5' 3 ) Kelley-Dennis Equation: 1087 Equation Chosen to Use by RD: Kelley-Dennis Stress Factor: 1.4 Total Energy Needs: 1521.8 kcal Temp: 36.7 ??C (98.1 ??F) Total Energy Needs + Fever Factor: 1521.8 Kcal/kg Type of Weight Used for Estimated Kcals: Current Kcal/k Total Kcal/kg Estimated Needs : 1449 Estimated Carbohydrate Needs Type of Weight Used for Estimated Carbohydrate Needs: Current Recommended Carbohydrates for Breakfast (gm) : 45 Recommended Carbohydrates for AM Snack (gm) : 5 Recommended Carbohydrates for Lunch (gm) : 45 Recommended Carbohydrates for Afternoon Snack (gm) : 5 Recommended Carbohydrates for Dinner (gm) : 45 Recommended Carbohydrates for HS Snack (gm) : 5 Total Daily Carbohydrates Recommended (gm): 150 Estimated Protein Needs Type of Weight Used for Estimated Protein : Current Protein Needs Based on g/k.4 Total Protein Estimated Needs (gm): 57.96 Estimated Fat Needs Type of Weight Used for Fat Needs: Current Fat Needs Based on % of Calories: 20 Calories Used for Grams of Fat: Total Kcal/kg estimated needs Total Fat Estimated Needs (gm): 32.2 Estimated Fluid Needs Type of Weight Used for Estimated Fluid Needs: Current Fluid Needs Based on : 35 ml/kg Total Fluid Estimated Needs: 1449 Glomerular Filtration Rate (GFR) Glomerular Filtration Rate (GFR): 48.39 Current Facility-Administered Medications Medication Dose Route Frequency Last Rate Last Dose ??? albumin 25 % bottle 25 g 25 g intravenous Q8H SANDRA ??? ALPRAZolam (XANAX) tablet 0.25 mg 0.25 mg oral TID PRN ??? dextrose 5% and sodium chloride 0.45% infusion 75 mL/hr intravenous Continuous 75 mL/hr at 10/12/17 0751 75 mL/hr at 10/12/17 0751 ??? folic acid (FOLVITE) tablet 1 mg 1 mg oral Daily ??? HYDROmorphone (DILAUDID) injection 0.2 mg 0.2 mg intravenous Q6H PRN 0.2 mg at 10/12/17 0144 ??? lidocaine PF (XYLOCAINE) 10 mg/mL (1 %) preservative free injection 10-20 mg 1-2 mL subcutaneous Once ??? metoclopramide (REGLAN) injection 5 mg 5 mg intravenous Q8H PRN 5 mg at 10/12/17 0006 ??? metroNIDAZOLE (FLAGYL) 500 mg/100 mL in sodium chloride (premix) 500 mg 500 mg intravenous [id number] 100 mL/hr at 10/12/17 0944 500 mg at 10/12/17 0944 ??? midodrine (PROAMATINE) tablet 5 mg 5 mg oral TID 5 mg at 10/12/17 0943 ??? multivit evbdvhrs-sovk-OF-calcium (THERA-M) tablet 1 tablet 1 tablet oral Daily ??? pantoprazole (PROTONIX) injection 80 mg 80 mg intravenous Daily 80 mg at 10/12/17 1010 ??? phenylephrine (AUGIE-SYNEPHRINE) 25 mg in sodium chloride 0.9% 250 mL (0.1 mg/mL) infusion 0.1-4 mcg/kg/min intravenous Titrated 27.3 mL/hr at 10/12/17 1030 1.1 mcg/kg/min at 10/12/17 1030 ??? piperacillin-tazobactam (ZOSYN) 2.25 g in 50 mL dextrose (premix) 2.25 g intravenous Q6H ASNDRA ??? prochlorperazine (COMPAZINE) injection 10 mg 10 mg intravenous Q6H PRN 10 mg at 10/12/17 0323 ??? sodium chloride 0.9% flush 5-10 mL 5-10 mL intra-catheter Q12H SANDRA ??? sodium chloride 0.9% flush 5-20 mL 5-20 mL intra-catheter PRN Labs Recent Results (from the past 24 hour(s)) CBC with auto differential Collection Time: 10/11/17 4:16 PM Result Value Ref Range WBC 12.5 (H) 3.8 - 9.9 K/cumm RBC 2.96 (L) 3.90 - 5.20 M/cumm Hgb 9.4 (L) 11.9 - 15.5 g/dL Hct 25.3 (L) 35.6 - 45.5 % MCV 85.5 81.3 - 96.4 fL MCH 31.8 27.1 - 33.3 pg MCHC 37.2 (H) 32.3 - 35.7 g/dL RDW CV 11.8 11.1 - 14.9 % RDW SD 36.5 35.7 - 48.1 fL Plt 472 (H) 150 - 400 K/cumm MPV 8.1 (L) 9.1 - 12.3 fL NRBC Abs 0.00 0.00 - 0.01 K/cumm Comprehensive metabolic panel Collection Time: 10/11/17 4:16 PM Result Value Ref Range Sodium 115 (Critical) 135 - 145 mmol/L Potassium 4.6 3.3 - 4.9 mmol/L CO2 24 22 - 32 mmol/L BUN 18 8 - 25 mg/dL Glucose 139 70 - 199 mg/dL Creatinine 1.36 (H) 0.60 - 1.10 mg/dL Calcium 7.7 (L) 8.5 - 10.3 mg/dL Chloride 80 (L) 97 - 110 mmol/L Albumin 1.7 (L) 3.5 - 5.0 g/dL AST 24 10 - 45 Units/L ALT 14 7 - 45 Units/L Alk phos 204 (H) 40 - 130 Units/L Bilirubin 0.5 0.1 - 1.2 mg/dL Protein, pl 4.1 (L) 6.5 - 8.5 g/dL Anion Gap 11 2 - 15 mmol/L Lactate, whole blood Collection Time: 10/11/17 4:16 PM Result Value Ref Range Lactic acid, bld 2.6 (H) 0.5 - 2.2 mmol/L Lipase Collection Time: 10/11/17 4:16 PM Result Value Ref Range Lipase 15 10 - 99 Units/L Troponin T Collection Time: 10/11/17 4:16 PM Result Value Ref Range Troponin T <0.01 0.00 - 0.06 ng/mL Differential, auto Collection Time: 10/11/17 4:16 PM Result Value Ref Range Neutrophil absolute 10.8 (H) 1.7 - 6.5 K/cumm Immature granulocyte absolute 0.1 0.0 - 0.1 K/cumm Lymphocytes absolute 1.0 0.8 - 3.3 K/cumm Monocyte absolute 0.6 0.2 - 0.8 K/cumm Eosinophils absolute 0.0 0.0 - 0.5 K/cumm Basophils, abs 0.0 0.0 - 0.1 K/cumm Neutrophils 86.1 % Immature granulocytes 0.5 % Lymphocytes 7.9 % Monocytes 5.1 % Eosinophils 0.3 % Basophils 0.1 % eGFR Collection Time: 10/11/17 4:16 PM Result Value Ref Range GFR 44 mL/min/1.73 m2 Urinalysis reflex to microscopic and culture Urine, clean voided Collection Time: 10/11/17 5:22 PM Result Value Ref Range Color, ur Ngoc (A) Yellow Clarity, ur Cloudy (A) Clear Specific gravity, ur 1.015 1.010 - 1.025 pH, urine 5.5 Protein, ur ql Trace Negative Glucose, ur ql Negative Negative Ketones, ur Negative Negative Bilirubin, ur Negative Negative Blood, ur Negative Negative Urobilinogen, ur 0.2 mg/dL Nitrite, ur Negative Negative Leukocyte esterase, ur 2+ (A) Negative Urinalysis, microscopic only Collection Time: 10/11/17 5:22 PM Result Value Ref Range WBC, ur 11-20 (A) 0 - 5 /HPF RBC, ur 6-10 (A) 0 - 5 /HPF Epithelial cells, squamous, ur 11-20 (A) 0 - 5 /HPF Bacteria, ur 1+ (A) Hyaline casts, ur 1-5 0 - 10 /LPF Sodium, urine, random Collection Time: 10/11/17 5:22 PM Result Value Ref Range Sodium, ur <20 mEq/L Protime-INR Collection Time: 10/11/17 9:48 PM Result Value Ref Range PT 13.3 (H) 9.5 - 13.0 sec INR 1.17 0.90 - 1.20 Magnesium Collection Time: 10/12/17 1:29 AM Result Value Ref Range Magnesium 1.7 1.6 - 2.4 mg/dL Renal function panel Collection Time: 10/12/17 1:29 AM Result Value Ref Range Sodium 120 (Critical) 135 - 145 mmol/L Potassium 4.2 3.3 - 4.9 mmol/L Chloride 86 (L) 97 - 110 mmol/L CO2 21 (L) 22 - 32 mmol/L Anion Gap 13 2 - 15 mmol/L Glucose 154 70 - 199 mg/dL BUN 17 8 - 25 mg/dL Creatinine 1.26 (H) 0.60 - 1.10 mg/dL Calcium 7.3 (L) 8.5 - 10.3 mg/dL Phosphorus, pl 4.7 (H) 2.3 - 4.5 mg/dL Albumin 1.6 (L) 3.5 - 5.0 g/dL eGFR Collection Time: 10/12/17 1:29 AM Result Value Ref Range GFR 48 mL/min/1.73 m2 CBC with auto differential Collection Time: 10/12/17 5:49 AM Result Value Ref Range WBC 13.5 (H) 3.8 - 9.9 K/cumm RBC 2.81 (L) 3.90 - 5.20 M/cumm Hgb 8.9 (L) 11.9 - 15.5 g/dL Hct 24.2 (L) 35.6 - 45.5 % MCV 86.1 81.3 - 96.4 fL MCH 31.7 27.1 - 33.3 pg MCHC 36.8 (H) 32.3 - 35.7 g/dL RDW CV 11.8 11.1 - 14.9 % RDW SD 37.4 35.7 - 48.1 fL Plt 479 (H) 150 - 400 K/cumm MPV 8.0 (L) 9.1 - 12.3 fL NRBC Abs 0.00 0.00 - 0.01 K/cumm Comprehensive metabolic panel Collection Time: 10/12/17 5:49 AM Result Value Ref Range Sodium 122 (L) 135 - 145 mmol/L Potassium 3.8 3.3 - 4.9 mmol/L CO2 22 22 - 32 mmol/L BUN 17 8 - 25 mg/dL Glucose 210 (H) 70 - 199 mg/dL Creatinine 1.32 (H) 0.60 - 1.10 mg/dL Calcium 7.4 (L) 8.5 - 10.3 mg/dL Chloride 87 (L) 97 - 110 mmol/L Albumin 1.8 (L) 3.5 - 5.0 g/dL AST 22 10 - 45 Units/L ALT 12 7 - 45 Units/L Alk phos 172 (H) 40 - 130 Units/L Bilirubin 0.4 0.1 - 1.2 mg/dL Protein, pl 3.8 (L) 6.5 - 8.5 g/dL Anion Gap 13 2 - 15 mmol/L Phosphorus Collection Time: 10/12/17 5:49 AM Result Value Ref Range Phosphorus, pl 4.7 (H) 2.3 - 4.5 mg/dL Magnesium Collection Time: 10/12/17 5:49 AM Result Value Ref Range Magnesium 2.9 (H) 1.6 - 2.4 mg/dL Differential, auto Collection Time: 10/12/17 5:49 AM Result Value Ref Range Neutrophil absolute 12.3 (H) 1.7 - 6.5 K/cumm Immature granulocyte absolute 0.1 0.0 - 0.1 K/cumm Lymphocytes absolute 0.5 (L) 0.8 - 3.3 K/cumm Monocyte absolute 0.6 0.2 - 0.8 K/cumm Eosinophils absolute 0.0 0.0 - 0.5 K/cumm Basophils, abs 0.0 0.0 - 0.1 K/cumm Neutrophils 91.1 % Immature granulocytes 0.4 % Lymphocytes 3.7 % Monocytes 4.7 % Eosinophils 0.0 % Basophils 0.1 % eGFR Collection Time: 10/12/17 5:49 AM Result Value Ref Range GFR 45 mL/min/1.73 m2 Basic metabolic panel Collection Time: 10/12/17 10:01 AM Result Value Ref Range Sodium 122 (L) 135 - 145 mmol/L Potassium 3.3 3.3 - 4.9 mmol/L Chloride 88 (L) 97 - 110 mmol/L CO2 23 22 - 32 mmol/L BUN 17 8 - 25 mg/dL Glucose 185 70 - 199 mg/dL Creatinine 1.25 (H) 0.60 - 1.10 mg/dL Calcium 7.5 (L) 8.5 - 10.3 mg/dL Anion Gap 11 2 - 15 mmol/L eGFR Collection Time: 10/12/17 10:01 AM Result Value Ref Range GFR 48 mL/min/1.73 m2 NUTRITION RISK: high Follow up date: 10/15/17 RD IMPRESSION: Severe Protein Calorie Malnutrition . Severely low albumin. Clear diet. No po intakeseen. PMHX: Pneumonia, HERNANDEZ, MAINOR. Pt is at 79% IBW. Nikki 15. No skin breakdown seen, but at risk.Elevated blood glucose levels. RD PLAN: Ensure Clear until diet is upgraded. Follow up per policy. Montse Leo RD, LDN * Jorge Malave [facility] - 10/12/2017 3:09 AM CDT X 1 dose per pharmacy electrolyte replacement protocol for magnesium 1.7 on 10/12 128 * Jorge Malave [facility] - 10/12/2017 1:27 AM CDT Electrolyte monitoring by pharmacy daily per protocol. documented in this encounter H&P Notes * Liang Jacobsen MD - 10/12/2017 1:13 AM CDT History and Physical Date of Service: 10/12/2017 Primary Care Physician: Fernie Barfield DO [phone] SUBJECTIVE: Persistent nausea and vomiting HPI: Patient is a 56 y.o. female with a PMHx significant for hypertension, HERNANDEZ with recurrent ascites, anxiety. Presents to the ED with a chief complaint of persistent nausea and vomiting. Per patient's report she had trouble to she got 2 weeks ago upon arrival back 2 days later she had paracentesis. Since then started feeling sick gradually got worse associated with abdominal pain, chills, but no diarrhea, since yesterday was not able to hold down anything neither liquids or solids.. Patient reports some pain with urination. Denies any blood with bowel movements. She is usually ADL/IADL independent, however for last 2 days was requiring assistance with her activities. She also reports chronic weight loss over a several months. Patient states that does have a follow-up appointment on Wednesday with her social work therapist in [facility] On further workup patient found to be severely hyponatremic, was diagnosed with left lower lobe pneumonia, and UTI. Septic workup was obtained. Patient started with empiric antibiotics on Zosyn Flagyl and Cipro. Referred to admission for further treatment. Patient also noted to have low blood pressures. She states that has a chronic hypotension. Had beenprescribed midodrine in, however was not taking it for last months or so since could not find her pills Past Medical History: Diagnosis Date ??? HTN (hypertension) Past Surgical History: Procedure Laterality Date ??? CHOLECYSTECTOMY 01/2017 ??? US GUIDED PARACENTESIS N/A 08/24/2017 Prescriptions Prior to Admission Medication Sig Dispense Refill Last Dose ??? ALPRAZolam (XANAX) 0.5 mg tablet Take 0.25 mg by mouth 3 (three) times a day as needed. 10/10/2017 at Unknown time ??? cyclobenzaprine (FLEXERIL) 10 mg tablet Take 10 mg by mouth 3 (three) times a day as needed. More than a month at Unknown time ??? folic acid (FOLVITE) 1 mg tablet Take 1 mg by mouth daily. 10/11/2017 at Unknown time ??? midodrine (PROAMATINE) 5 mg tablet Take 5 mg by mouth 3 (three) times a day. Past Month at Unknown time ??? multivit uqkaheud-hqfo-JJ-calcium (THERA-M) 9 mg iron-400 mcg tablet Take 1 tablet by mouth. 10/09/2017 ??? multivitamin,tx-minerals (VITAMINS AND MINERALS) tablet Take 1 tablet by mouth daily. 10/10/2017 ??? ondansetron (ZOFRAN) 4 mg tablet Take 4 mg by mouth every 8 (eight) hours as needed. 10/11/2017 ??? promethazine (PHENERGAN) 25 mg tablet Take 25 mg by mouth every 8 (eight) hours as needed. Morethan a month at Unknown time ??? thiamine (VITAMIN B-1) 50 mg tablet Take 50 mg by mouth daily. 10/10/2017 ??? traMADol (ULTRAM) 50 mg tablet Take 50 mg by mouth every 8 (eight) hours as needed. More than amonth at Unknown time Allergies Allergen Reactions ??? Oxycodone Hallucinations ??? Demerol [Meperidine] Other (See comments) Confusion, respiratory depression (?) Social History Substance Use Topics ??? Smoking status: Current Every Day Smoker Packs/day: 0.50 ??? Smokeless tobacco: Never Used ??? Alcohol use No Family History Problem Relation Age of Onset ??? Diabetes Mother ??? Heart disease Mother Review of Systems 1. Constitutional Complains of chronic: weight loss, subjective fever, chills, denies night sweats, complains of chronic fatigue 2. Eyes Denies: change in vision, double vision, eye pain, eye discharge, icterus 3. ENT Denies: change in hearing, ear pain, ear discharge, nose bleed, nasal congestion, sore throat 4. Respiratory Complains of productive cough, denies SOB, wheezing, hemoptysis 5. CV Complains of sharp left-sided pleuritic chest pain, denies palpitations, syncope, edema, complains of dyspnea on exertion 6. GI Denies: abdominal pain, decreased appetite, nausea, vomiting, change in bowel habitus, diarrhea, vomiting, constipation, melena, BRBPR 7. Denies: dysuria, frequency, hematuria, nocturia, urgency 8. Metabolic Denies: cold intolerance, heat intolerance, polyphagia, polydipsia 9. Neurologic Denies: headache, dizziness, seizure, change in mental status, focal weakness, focal numbness 10. Musculoskeletal Denies: myalgia, joint pain, joint redness, joint swelling, extremity pain 11. Hematologic Denies: bleeding, bruising, hematoma, lymphadenopathy, icterus OBJECTIVE: Vitals: Arrival Vitals Temp 10/11/17 1728 36.2 ??C (97.2 ??F) Pulse 10/11/17 1615 94 Resp 10/11/17 1615 16 BP 10/11/17 1615 116/77 SpO2 10/11/17 1615 99 % Temp src 10/11/17 1728 Temporal Heart Rate Source 10/11/17 2340 Monitor Patient Position 10/11/17 2340 Lying BP Location 10/11/17 2300 Right arm FiO2 (%) -- Most Recent : Vitals: 10/11/17 2340 10/11/17 2345 10/11/17 2350 10/12/17 0000 BP: 95/63 107/74 (!) 77/55 BP Location: Right arm Right arm Right arm Patient Position: Lying Lying Lying Pulse: 90 114 98 96 Resp: Temp: 37.1 ??C (98.7 ??F) TempSrc: Temporal SpO2: 100% 100% 100% 100% Weight: 41.4 kg (91 lb 4.3 oz) Height: I/O last 2 completed shifts: In: 2550 [I.V.:500; IV Piggyback:2049] Out: - I/O this shift: In: 1300 [IV Piggyback:1300] Out: - Physical Exam General: Awake, alert, oriented x4, cachectic looking Eyes: EOMI, ALBERT, sclare non icteric Neck: supple, trachea midline, Pharynx: mucosa moist dry tongue is midline Lungs left lung lower field with inspiratory rhonchi and end expiratory wheezes Heart: [id number] Abd: +BS, diffusely Tender, Non distended, unable to assess for organomegaly due to pain. Lower Ext: No gross edema Neuro: Cranial nerves II-XII grossly intact. Moves all extremities equally, no gross sensory deficits Musculoskeletal: no gross joint erythema, edema, tenderness Genitourinary: Positive suprapubic tenderness Skin: warm and dry to palpation Lab/Radiology/Diagnostic Review: Recent Results (from the past 24 hour(s)) CBC with auto differential Collection Time: 10/11/17 4:16 PM Result Value Ref Range WBC 12.5 (H) 3.8 - 9.9 K/cumm RBC 2.96 (L) 3.90 - 5.20 M/cumm Hgb 9.4 (L) 11.9 - 15.5 g/dL Hct 25.3 (L) 35.6 - 45.5 % MCV 85.5 81.3 - 96.4 fL MCH 31.8 27.1 - 33.3 pg MCHC 37.2 (H) 32.3 - 35.7 g/dL RDW CV 11.8 11.1 - 14.9 % RDW SD 36.5 35.7 - 48.1 fL Plt 472 (H) 150 - 400 K/cumm MPV 8.1 (L) 9.1 - 12.3 fL NRBC Abs 0.00 0.00 - 0.01 K/cumm Comprehensive metabolic panel Collection Time: 10/11/17 4:16 PM Result Value Ref Range Sodium 115 (Critical) 135 - 145 mmol/L Potassium 4.6 3.3 - 4.9 mmol/L CO2 24 22 - 32 mmol/L BUN 18 8 - 25 mg/dL Glucose 139 70 - 199 mg/dL Creatinine 1.36 (H) 0.60 - 1.10 mg/dL Calcium 7.7 (L) 8.5 - 10.3 mg/dL Chloride 80 (L) 97 - 110 mmol/L Albumin 1.7 (L) 3.5 - 5.0 g/dL AST 24 10 - 45 Units/L ALT 14 7 - 45 Units/L Alk phos 204 (H) 40 - 130 Units/L Bilirubin 0.5 0.1 - 1.2 mg/dL Protein, pl 4.1 (L) 6.5 - 8.5 g/dL Anion Gap 11 2 - 15 mmol/L Lactate, whole blood Collection Time: 10/11/17 4:16 PM Result Value Ref Range Lactic acid, bld 2.6 (H) 0.5 - 2.2 mmol/L Lipase Collection Time: 10/11/17 4:16 PM Result Value Ref Range Lipase 15 10 - 99 Units/L Troponin T Collection Time: 10/11/17 4:16 PM Result Value Ref Range Troponin T <0.01 0.00 - 0.06 ng/mL Differential, auto Collection Time: 10/11/17 4:16 PM Result Value Ref Range Neutrophil absolute 10.8 (H) 1.7 - 6.5 K/cumm Immature granulocyte absolute 0.1 0.0 - 0.1 K/cumm Lymphocytes absolute 1.0 0.8 - 3.3 K/cumm Monocyte absolute 0.6 0.2 - 0.8 K/cumm Eosinophils absolute 0.0 0.0 - 0.5 K/cumm Basophils, abs 0.0 0.0 - 0.1 K/cumm Neutrophils 86.1 % Immature granulocytes 0.5 % Lymphocytes 7.9 % Monocytes 5.1 % Eosinophils 0.3 % Basophils 0.1 % eGFR Collection Time: 10/11/17 4:16 PM Result Value Ref Range GFR 44 mL/min/1.73 m2 Urinalysis reflex to microscopic and culture Urine, clean voided Collection Time: 10/11/17 5:22 PM Result Value Ref Range Color, ur Ngoc (A) Yellow Clarity, ur Cloudy (A) Clear Specific gravity, ur 1.015 1.010 - 1.025 pH, urine 5.5 Protein, ur ql Trace Negative Glucose, ur ql Negative Negative Ketones, ur Negative Negative Bilirubin, ur Negative Negative Blood, ur Negative Negative Urobilinogen, ur 0.2 mg/dL Nitrite, ur Negative Negative Leukocyte esterase, ur 2+ (A) Negative Urinalysis, microscopic only Collection Time: 10/11/17 5:22 PM Result Value Ref Range WBC, ur 11-20 (A) 0 - 5 /HPF RBC, ur 6-10 (A) 0 - 5 /HPF Epithelial cells, squamous, ur 11-20 (A) 0 - 5 /HPF Bacteria, ur 1+ (A) Hyaline casts, ur 1-5 0 - 10 /LPF Protime-INR Collection Time: 10/11/17 9:48 PM Result Value Ref Range PT 13.3 (H) 9.5 - 13.0 sec INR 1.17 0.90 - 1.20 Ct Abdomen Pelvis W Contrast Result Date: 10/11/2017 Narrative: CT ABDOMEN PELVIS W CONTRAST HISTORY: Pain. Abdominal pain nausea and vomiting. Prior cholecystectomy. HERNANDEZ with recurrent ascites. TECHNIQUE: Helical CT scan abdomen and pelvis obtained with intravenous contrast. 100 mL of Optiray 320. COMPARISON: None available. FINDINGS: Extensive ascites in the abdomen and pelvis. The liver is on the small side. Small hypodense focus right hepatic l obe, too small to characterize. Prior cholecystectomy. Spleen size within normal range. No pancreatic mass identified. For the kidneys, no hydronephrosis. Small and very small hypodense foci the kidneys. 2 small to characterize. There appear to be thickening of the descending and sigmoid colon, suggesting colitis, however this is underdistended. There also appear to be some thickening of the right colon. No small bowel dilatation identified. Evaluation of the gastrointestinal tract is limited without oral contrast. Appendix thickness is normal. Urinary bladder is nondistended. 2 small nodulardensities right basal region. Indeterminate nature. These each measure approximately 3 to 4 mm. Calc ified nodule right lung base represents granuloma. Impression: 1. EXTENSIVE ASCITES IN THE ABDOMEN AND PELVIS. 2. SMALL HYPODENSE FOCUS RIGHT HEPATIC LOBE, TOO SMALL TO CHARACTERIZE, MOST COMMONLY REPRESENTING CYST. 3. SMALL AND VERY SMALL HYPODENSE FOCI WITHIN THE KIDNEYS, TOO SMALL TO CHARACTERIZE, MOST COMMONLY REPRESENTING CYST. 4. FINDINGS SUPPORTIVE OF COLITIS. COLITIS MAY BE INFECTIOUS, INFLAMMATORY, OR ISCHEMIC. 5. 2 SMALL INDETERMINATE NODULES RIGHT LUNG BASE. FOLLOW-UP PER [facility] CRITERIA RECOMMENDED. Electronically signed by: Elliot Perkins M.D Xr Chest 1 Vw Portable Result Date: 10/11/2017 Narrative: XR CHEST 1 VIEW HISTORY: weakness. Difficulty breathing. Nausea. Vomiting. Tobacco use. TECHNIQUE: Portable AP view. COMPARISON: 08/23/2017. FINDINGS: Heart size is normal. No infiltrate or effusion identified. Elevation right hemidiaphragm, as previously. Prior cholecystectomy. Impression: NO ACUTE PULMONARY DISEASE. Electronically signed by: Elliot Perkins M.D EKG: Sinus rhythm, right bundle branch block ASSESSMENT/PLAN: Abdominal pain Assessment & Plan Multifactorial, due to colitis, UTI, and ascites/? SBP Patient on broad-spectrum antibiotics with vanc and Zosyn Trend CBC and BMP Electrolytes every 4 hr, correct as needed Chronic hyponatremia Assessment & Plan Acute on chronic hyponatremia, likely multifactorial due to dehydration secondary to persistent nausea and vomiting, versus SIADH versus chronic hyper aldosteronism state Will check for urine sodium Patient was started on IV fluids with normal saline Will switch IV fluids to D5 half-normal saline Repeat electrolytes every 4 hr to avoid rapid correction of hyponatremia Ascites Assessment & Plan Ascites noted on the CT. With diffuse abdominal tenderness concerning for spontaneous bacterial peritonitis. Consider diagnostic paracentesis Will get GI consult * Pneumonia of left lower lobe due to infectious organism (CMS/HCC) Assessment & Plan Patient started on Flagyl and Zosyn Septic workup is in progress Will get sputum cultures and urine respiratory antigens Supplemental oxygen as needed Anxiety Assessment & Plan Will continue with home medications HERNANDEZ (nonalcoholic steatohepatitis) Assessment & Plan History of HERNANDEZ, follows in [facility] hepat[facility]. Has an appointment this iday. Had a paracentesis about 2 weeks ago. States that usually after paracentesis she feels better however this time she became sicker CT of the abdomen consistent with colitis Patient is diffusely tender Concern for spontaneous bacterial peritonitis Septic workup is in progress Consider diagnostic paracentesis to rule out SBP Continue with IV antibiotics with Flagyl and Zosyn Hypotension Assessment & Plan Chronic hypertension. Patient had been on midodrine in. She lost her medication bottle about a month's ago and had not been taking it. Will restart on midodrine Telemetry monitoring Strict I&Os Severe protein-calorie malnutrition (CMS/HCC) Assessment & Plan Patient with hyperproteinemia and hypoalbuminemia With ascites and hypertension Despite of a IV fluids patient's blood pressure remains low Will give 1 dose of albumin 50 g IV to increase oncotic pressures Will get medicine man on board to assist with the management Generalized weakness Assessment & Plan Multifactorial due to hyponatremia, protein calorie malnourishment, Hernandez, acute infection Will get PT OT consult to evaluate and treat Acute cystitis with hematuria Assessment & Plan Patient is started on Flagyl and Zosyn Urine cultures are pending Will adjust the medications as needed. GI and DVT prophylaxis in place Principal Problem: Pneumonia of left lower lobe due to infectious organism (CMS/HCC) Active Problems: Ascites Chronic hyponatremia Abdominal pain HERNANDEZ (nonalcoholic steatohepatitis) Anxiety Hypotension Acute cystitis with hematuria MAINOR (acute kidney injury) (CMS/HCC) Generalized weakness Severe protein-calorie malnutrition (CMS/HCC) Full Code ESTIMATED LENGTH OF STAY: More than 2 midnights Liang Jacobsen MD 10/12/2017 1:14 AM documented in this encounter Procedure Notes * Gladys Brown, COMPUTER METHODS ANALYST - 10/13/2017 10:22 AM CDT Procedures [facility] Inpatient Clinical Swallow Assessment/ Bedside Swallow Evaluation 10/13/2017 Rosa Li General Information Reason for Swallow Evaluation Referral: Rule out aspiration (She reports multiple episodes of emesis over the weekend. Since then she felt like something was in her throat. She reports it is a littlebetter today. ) Date of Onset: 10/11/17 Date of Order: 10/13/17 Date of Evaluation: 10/13/17 Type of Study: (bedside swallow eval) COMPUTER METHODS ANALYST Received On: 10/13/17 Diet Prior to this Study: Pt. reports eating soft foods Dysphagia Diagnosis: Mild oral stage dysphagia Patient Active Problem List Diagnosis ??? HERNANDEZ (nonalcoholic steatohepatitis) ??? Ascites ??? Hypotension ??? Anxiety ??? Chronic hyponatremia ??? Abdominal pain ??? Acute cystitis with hematuria ??? Pneumonia of left lower lobe due to infectious organism (CMS/HCC) ??? MAINOR (acute kidney injury) (CMS/HCC) ??? Generalized weakness ??? Severe protein-calorie malnutrition (CMS/HCC) Reason for Referral Patient was referred to speech therapy to assess the efficiency of his/her swallow function, rule out aspiration, and make recommendations regarding safe dietary consistencies, effective compensatorystrategies, and safe eating environment. Recommendations/Treatment Recommendations/Treat Recommendations Comment: nutritional supplement Solid Consistency: Pureed Liquid Consistency: Thin/regular Liquid Administration Via: Cup, Straw Medication Administration: Crushed Supervision: Close Compensations and Swallow Maneuvers: (she takes very small amounts independently) Postural Changes : Upright Speech Evaluation Complete: Yes ST to follow up Oral Motor Oral/Motor Labial ROM: Within Functional Limits Labial Symmetry: Within Functional Limits Labial Strength: Within Functional Limits Lingual ROM: Within Functional Limits Lingual Symmetry: Within Functional Limits Lingual Strength: Within Functional Limits Palatal Elevation: Within Functional Limits Mandible: Within Functional Limits Facial ROM: Within Functional Limits Facial Symmetry: Within Functional Limits Facial Strength: Within Functional Limits Dentition: (missing top dentures) Clinical Evaluation of Swallow General/Airway Info Respiratory Status: o2 via nasal cannula History of Intubation: No Tracheostomy: No Behavior/Cognition: Alert, Cooperative Patient Positioning: Upright in bed Baseline Vocal Quality: Within Functional Limits Volitional Cough: Strong Volitional Swallow: Within Functional Limits Secretion Management: Yes Voice Vocal Quality: Within Functional Limits Vocal Intensity: Within Functional Limits Consistencies Assessed Consistencies Assessed: Yes Ice Chips Chips - Presentation: Spoon Chips - Oral: Within Functional Limits Chips - Pharyngeal: Within Functional Limits Thin Thin - Presentation: Straw, Cup (she would only take very small volumes) Thin - Oral: Within Functional Limits Thin - Pharyngeal: Within Functional Limits Puree Puree - Presentation: Spoon (refused solid trials. She requested that her medications be crushed inpudding. ) Puree - Oral: Within Functional Limits (small volumes) Puree - Pharyngeal: Within Functional Limits Clinical Feeding/Swallowing Plan/Recommendations Risk for Aspiration: Mild Diet Solids Recommendation: Pureed Diet Liquids Recommendations: Thin/regular Recommended Form of Medications: Crushed Postural Changes : Upright Follow up Treatments: (follow up only) Dysphagia Goals: Patient will tolerate recommended diet without observed clinical signs of aspiration Prognosis Individuals Consulted Consulted/Agree with Results and Recs: Patient, RN Gladys Brown MS,[facility]-COMPUTER METHODS ANALYST documented in this encounter Consult Notes * Cipriano Ricci MD - 10/12/2017 5:45 PM CDT Gastroenterology Consult Reason for consult: HERNANDEZ/ Ascites Date of Consult: 10/12/2017 SUBJECTIVE Patient is a 56 y.o. female with complaint of weakness and low sodium. Patient has complicated pasthistory of advanced liver disease with HERNANDEZ and decompensated cirrhosis. She follows at [facility] liver clinic. Patient was feeling weak and poor appetiie and low blood pressure since January 2017 after her gall bladder surgery. Last couple days were worse. She came to ER and noted her sodium level [id number] so she was admitted for management. She had frequent paracentesis. No pain. No vomiting. She blood in stool. Past Medical History: Diagnosis Date ??? HTN (hypertension) Past Surgical History: Procedure Laterality Date ??? CHOLECYSTECTOMY 01/2017 ??? US GUIDED PARACENTESIS N/A 08/24/2017 Prescriptions Prior to Admission Medication Sig Dispense Refill Last Dose ??? ALPRAZolam (XANAX) 0.5 mg tablet Take 0.25 mg by mouth 3 (three) times a day as needed. 10/10/2017 at Unknown time ??? cyclobenzaprine (FLEXERIL) 10 mg tablet Take 10 mg by mouth 3 (three) times a day as needed. More than a month at Unknown time ??? folic acid (FOLVITE) 1 mg tablet Take 1 mg by mouth daily. 10/11/2017 at Unknown time ??? midodrine (PROAMATINE) 5 mg tablet Take 5 mg by mouth 3 (three) times a day. Past Month at Unknown time ??? multivit uobfwtjj-bfke-CW-calcium (THERA-M) 9 mg iron-400 mcg tablet Take 1 tablet by mouth. 10/09/2017 ??? multivitamin,tx-minerals (VITAMINS AND MINERALS) tablet Take 1 tablet by mouth daily. 10/10/2017 ??? ondansetron (ZOFRAN) 4 mg tablet Take 4 mg by mouth every 8 (eight) hours as needed. 10/11/2017 ??? promethazine (PHENERGAN) 25 mg tablet Take 25 mg by mouth every 8 (eight) hours as needed. Morethan a month at Unknown time ??? thiamine (VITAMIN B-1) 50 mg tablet Take 50 mg by mouth daily. 10/10/2017 ??? traMADol (ULTRAM) 50 mg tablet Take 50 mg by mouth every 8 (eight) hours as needed. More than amonth at Unknown time Allergies Allergen Reactions ??? Oxycodone Hallucinations ??? Demerol [Meperidine] Other (See comments) Confusion, respiratory depression (?) Social History Substance Use Topics ??? Smoking status: Current Every Day Smoker Packs/day: 0.50 ??? Smokeless tobacco: Never Used ??? Alcohol use No Family History Problem Relation Age of Onset ??? Diabetes Mother ??? Heart disease Mother Review of Systems Constitutional: Positive for activity change, appetite change, fatigue and unexpected weight change. Negative for diaphoresis and fever. HENT: Negative. Eyes: Negative. Respiratory: Positive for chest tightness. Negative for cough. Cardiovascular: Negative. Gastrointestinal: Positive for abdominal distention, abdominal pain and nausea. Negative for blood in stool, constipation, diarrhea and vomiting. Musculoskeletal: Positive for arthralgias and back pain. Negative for gait problem, myalgias and neck pain. Skin: Negative. Neurological: Negative. Psychiatric/Behavioral: Negative. Vitals: BP (!) 84/60 Pulse 81 Temp 37 ??C (98.6 ??F) (Temporal) Resp 17 Ht 160 cm (5' 3 ) Wt 41.4kg (91 lb 4.3 oz) SpO2 100% BMI 16.17 kg/m?? OBJECTIVE Physical Exam: Patient is awake and answers well. Eyes: no jaundice. Lungs: CTA anteriorly. ENT: no mouth ulcers. Lymphatics: no submandibular and no supraclavicular lymphadenopathy. Abdomen: protuberant, soft, moderate ascites noted, no tendernss. . Extremities: no edema. Skin: no rash. Lab/Radiology/Diagnostic Review: Recent Results (from the past 48 hour(s)) ECG 12 lead Collection Time: 10/11/17 4:09 PM Result Value Ref Range Patient age 56 years Interpretation Text SINUS RHYTHMLOW QRS VOLTAGEINCOMPLETE RIGHT BUNDLE BRANCH BLOCKPOSSIBLE ANTERIOR MYOCARDIAL INFARCTION , PROBABLY OLDABNORMAL ECGNO PREVIOUS TRACING Ventricular Rate EKG/Min 90 /min P Wave Duration 100 ms QRS-Interval (MSEC) 102 ms FL-Interval (MSEC) 168 ms QT Interval 372 ms QTc 424 ms QTC Interval ms P Colt 80 deg QRS Colt 88 deg T Colt 32 deg CBC with auto differential Collection Time: 10/11/17 4:16 PM Result Value Ref Range WBC 12.5 (H) 3.8 - 9.9 K/cumm RBC 2.96 (L) 3.90 - 5.20 M/cumm Hgb 9.4 (L) 11.9 - 15.5 g/dL Hct 25.3 (L) 35.6 - 45.5 % MCV 85.5 81.3 - 96.4 fL MCH 31.8 27.1 - 33.3 pg MCHC 37.2 (H) 32.3 - 35.7 g/dL RDW CV 11.8 11.1 - 14.9 % RDW SD 36.5 35.7 - 48.1 fL Plt 472 (H) 150 - 400 K/cumm MPV 8.1 (L) 9.1 - 12.3 fL NRBC Abs 0.00 0.00 - 0.01 K/cumm Comprehensive metabolic panel Collection Time: 10/11/17 4:16 PM Result Value Ref Range Sodium 115 (Critical) 135 - 145 mmol/L Potassium 4.6 3.3 - 4.9 mmol/L CO2 24 22 - 32 mmol/L BUN 18 8 - 25 mg/dL Glucose 139 70 - 199 mg/dL Creatinine 1.36 (H) 0.60 - 1.10 mg/dL Calcium 7.7 (L) 8.5 - 10.3 mg/dL Chloride 80 (L) 97 - 110 mmol/L Albumin 1.7 (L) 3.5 - 5.0 g/dL AST 24 10 - 45 Units/L ALT 14 7 - 45 Units/L Alk phos 204 (H) 40 - 130 Units/L Bilirubin 0.5 0.1 - 1.2 mg/dL Protein, pl 4.1 (L) 6.5 - 8.5 g/dL Anion Gap 11 2 - 15 mmol/L Lactate, whole blood Collection Time: 10/11/17 4:16 PM Result Value Ref Range Lactic acid, bld 2.6 (H) 0.5 - 2.2 mmol/L Lipase Collection Time: 10/11/17 4:16 PM Result Value Ref Range Lipase 15 10 - 99 Units/L Troponin T Collection Time: 10/11/17 4:16 PM Result Value Ref Range Troponin T <0.01 0.00 - 0.06 ng/mL Differential, auto Collection Time: 10/11/17 4:16 PM Result Value Ref Range Neutrophil absolute 10.8 (H) 1.7 - 6.5 K/cumm Immature granulocyte absolute 0.1 0.0 - 0.1 K/cumm Lymphocytes absolute 1.0 0.8 - 3.3 K/cumm Monocyte absolute 0.6 0.2 - 0.8 K/cumm Eosinophils absolute 0.0 0.0 - 0.5 K/cumm Basophils, abs 0.0 0.0 - 0.1 K/cumm Neutrophils 86.1 % Immature granulocytes 0.5 % Lymphocytes 7.9 % Monocytes 5.1 % Eosinophils 0.3 % Basophils 0.1 % eGFR Collection Time: 10/11/17 4:16 PM Result Value Ref Range GFR 44 mL/min/1.73 m2 Blood culture Blood Collection Time: 10/11/17 5:07 PM Result Value Ref Range Report Preliminary Report: No growth to date. Blood culture Blood Collection Time: 10/11/17 5:13 PM Result Value Ref Range Report Preliminary Report: No growth to date. Urinalysis reflex to microscopic and culture Urine, clean voided Collection Time: 10/11/17 5:22 PM Result Value Ref Range Color, ur Ngoc (A) Yellow Clarity, ur Cloudy (A) Clear Specific gravity, ur 1.015 1.010 - 1.025 pH, urine 5.5 Protein, ur ql Trace Negative Glucose, ur ql Negative Negative Ketones, ur Negative Negative Bilirubin, ur Negative Negative Blood, ur Negative Negative Urobilinogen, ur 0.2 mg/dL Nitrite, ur Negative Negative Leukocyte esterase, ur 2+ (A) Negative Urinalysis, microscopic only Collection Time: 10/11/17 5:22 PM Result Value Ref Range WBC, ur 11-20 (A) 0 - 5 /HPF RBC, ur 6-10 (A) 0 - 5 /HPF Epithelial cells, squamous, ur 11-20 (A) 0 - 5 /HPF Bacteria, ur 1+ (A) Hyaline casts, ur 1-5 0 - 10 /LPF Sodium, urine, random Collection Time: 10/11/17 5:22 PM Result Value Ref Range Sodium, ur <20 mEq/L Urine culture Collection Time: 10/11/17 5:22 PM Result Value Ref Range Report Preliminary Report: Insignificant growth based on current clinical standards. Protime-INR Collection Time: 10/11/17 9:48 PM Result Value Ref Range PT 13.3 (H) 9.5 - 13.0 sec INR 1.17 0.90 - 1.20 Magnesium Collection Time: 10/12/17 1:29 AM Result Value Ref Range Magnesium 1.7 1.6 - 2.4 mg/dL Renal function panel Collection Time: 10/12/17 1:29 AM Result Value Ref Range Sodium 120 (Critical) 135 - 145 mmol/L Potassium 4.2 3.3 - 4.9 mmol/L Chloride 86 (L) 97 - 110 mmol/L CO2 21 (L) 22 - 32 mmol/L Anion Gap 13 2 - 15 mmol/L Glucose 154 70 - 199 mg/dL BUN 17 8 - 25 mg/dL Creatinine 1.26 (H) 0.60 - 1.10 mg/dL Calcium 7.3 (L) 8.5 - 10.3 mg/dL Phosphorus, pl 4.7 (H) 2.3 - 4.5 mg/dL Albumin 1.6 (L) 3.5 - 5.0 g/dL eGFR Collection Time: 10/12/17 1:29 AM Result Value Ref Range GFR 48 mL/min/1.73 m2 CBC with auto differential Collection Time: 10/12/17 5:49 AM Result Value Ref Range WBC 13.5 (H) 3.8 - 9.9 K/cumm RBC 2.81 (L) 3.90 - 5.20 M/cumm Hgb 8.9 (L) 11.9 - 15.5 g/dL Hct 24.2 (L) 35.6 - 45.5 % MCV 86.1 81.3 - 96.4 fL MCH 31.7 27.1 - 33.3 pg MCHC 36.8 (H) 32.3 - 35.7 g/dL RDW CV 11.8 11.1 - 14.9 % RDW SD 37.4 35.7 - 48.1 fL Plt 479 (H) 150 - 400 K/cumm MPV 8.0 (L) 9.1 - 12.3 fL NRBC Abs 0.00 0.00 - 0.01 K/cumm Comprehensive metabolic panel Collection Time: 10/12/17 5:49 AM Result Value Ref Range Sodium 122 (L) 135 - 145 mmol/L Potassium 3.8 3.3 - 4.9 mmol/L CO2 22 22 - 32 mmol/L BUN 17 8 - 25 mg/dL Glucose 210 (H) 70 - 199 mg/dL Creatinine 1.32 (H) 0.60 - 1.10 mg/dL Calcium 7.4 (L) 8.5 - 10.3 mg/dL Chloride 87 (L) 97 - 110 mmol/L Albumin 1.8 (L) 3.5 - 5.0 g/dL AST 22 10 - 45 Units/L ALT 12 7 - 45 Units/L Alk phos 172 (H) 40 - 130 Units/L Bilirubin 0.4 0.1 - 1.2 mg/dL Protein, pl 3.8 (L) 6.5 - 8.5 g/dL Anion Gap 13 2 - 15 mmol/L Phosphorus Collection Time: 10/12/17 5:49 AM Result Value Ref Range Phosphorus, pl 4.7 (H) 2.3 - 4.5 mg/dL Magnesium Collection Time: 10/12/17 5:49 AM Result Value Ref Range Magnesium 2.9 (H) 1.6 - 2.4 mg/dL Differential, auto Collection Time: 10/12/17 5:49 AM Result Value Ref Range Neutrophil absolute 12.3 (H) 1.7 - 6.5 K/cumm Immature granulocyte absolute 0.1 0.0 - 0.1 K/cumm Lymphocytes absolute 0.5 (L) 0.8 - 3.3 K/cumm Monocyte absolute 0.6 0.2 - 0.8 K/cumm Eosinophils absolute 0.0 0.0 - 0.5 K/cumm Basophils, abs 0.0 0.0 - 0.1 K/cumm Neutrophils 91.1 % Immature granulocytes 0.4 % Lymphocytes 3.7 % Monocytes 4.7 % Eosinophils 0.0 % Basophils 0.1 % eGFR Collection Time: 10/12/17 5:49 AM Result Value Ref Range GFR 45 mL/min/1.73 m2 Basic metabolic panel Collection Time: 10/12/17 10:01 AM Result Value Ref Range Sodium 122 (L) 135 - 145 mmol/L Potassium 3.3 3.3 - 4.9 mmol/L Chloride 88 (L) 97 - 110 mmol/L CO2 23 22 - 32 mmol/L BUN 17 8 - 25 mg/dL Glucose 185 70 - 199 mg/dL Creatinine 1.25 (H) 0.60 - 1.10 mg/dL Calcium 7.5 (L) 8.5 - 10.3 mg/dL Anion Gap 11 2 - 15 mmol/L eGFR Collection Time: 10/12/17 10:01 AM Result Value Ref Range GFR 48 mL/min/1.73 m2 Basic metabolic panel Collection Time: 10/12/17 4:38 PM Result Value Ref Range Sodium 124 (L) 135 - 145 mmol/L Potassium 3.3 3.3 - 4.9 mmol/L Chloride 92 (L) 97 - 110 mmol/L CO2 22 22 - 32 mmol/L BUN 14 8 - 25 mg/dL Glucose 143 70 - 199 mg/dL Creatinine 1.16 (H) 0.60 - 1.10 mg/dL Calcium 7.5 (L) 8.5 - 10.3 mg/dL Anion Gap 10 2 - 15 mmol/L eGFR Collection Time: 10/12/17 4:38 PM Result Value Ref Range GFR 53 mL/min/1.73 m2 Lactate, whole blood Collection Time: 10/12/17 5:04 PM Result Value Ref Range Lactic acid, bld 1.2 0.5 - 2.2 mmol/L Ct Abdomen Pelvis W Contrast Result Date: 10/11/2017 1. EXTENSIVE ASCITES IN THE ABDOMEN AND PELVIS. 2. SMALL HYPODENSE FOCUS RIGHT HEPATIC LOBE, TOO SMALL TO CHARACTERIZE, MOST COMMONLY REPRESENTING CYST. 3. SMALL AND VERY SMALL HYPODENSE FOCI WITHIN THE KIDNEYS, TOO SMALL TO CHARACTERIZE, MOST COMMONLY REPRESENTING CYST. 4. FINDINGS SUPPORTIVE OF CO LITIS. COLITIS MAY BE INFECTIOUS, INFLAMMATORY, OR ISCHEMIC. 5. 2 SMALL INDETERMINATE NODULES RIGHTLUNG BASE. FOLLOW-UP PER FLEISCHNER CRITERIA RECOMMENDED. Electronically signed by: Elliot Perkins M.D Xr Chest 1 Vw Portable Result Date: 10/11/2017 NO ACUTE PULMONARY DISEASE. Electronically signed by: Elliot Perkins M.D GI IMPRESSION: 1. Persistant hyponatremia, noted low sodium even last year. 2. Chronic renal failure. 3. Malnutrition. 4. decompensated liver cirrhosis. 5. Hypotension. GI PLAN: 1. This is a complicated case. Patient need nephrology consultation to address her hyponatremia in this setting of cirrhosis and renal insufficiency. 2. Otherwise no specific GI intervention is needed. No sign of GI bleeding/ One may consider Mododrine to help her blood pressure if no improvement. 3. Follow progress. Cipriano Ricci MD * Amy Olvera MD - 10/12/2017 4:25 PM CDT SALT OPERATOR CONSULT Rosa Li was admitted 10/11/2017 for nausea and vomiting. I was asked to see the patient andprovide recommendations for management of shock. HPI: 56 y.o. female admitted on 10/11/2017 for nausea and vomiting. She has a history of HTN, HERNANDEZ with recurrent ascites requiring paracentesis every 10-14days. She presented to the ED with acute on chronic emesis, weakness and anorexia. She has also been getting weak and has needed assistance with activities of daily living for the last 2 weeks. She follows with a social work therapist at [facility] for her HERNANDEZ. Her states that her MELD score has never warranted the need for transplant work-up. Her last paracentesis was 4 days ago. In the ED she was noted to be hypotensive; however, she states that herpressure usually run in the 70's and that is what she is on midodrine for. She received 3 L NS bolus in the ED; however, was persistently hypotensive requiring admission to the ICU. Critical care wasconsulted for hypotension refractory to fluid resuscitation. PAST MEDICAL HISTORY She has a past medical history of HTN (hypertension). PAST SURGICAL HISTORY: has a past surgical history that includes Cholecystectomy (01/2017) and US Guided Paracentesis (N/A, 08/24/2017). FAMILY HISTORY: family history includes Diabetes in her mother; Heart disease in her mother. SOCIAL HISTORY : reports that she has been smoking. She has been smoking about 0.50 packs per day. She has never used smokeless tobacco. She reports that she does not drink alcohol or use drugs. HOME MEDICATIONS: HOME MEDICATIONS : ALPRAZolam (XANAX) 0.5 mg tablet cyclobenzaprine (FLEXERIL) 10 mg tablet folic acid (FOLVITE) 1 mg tablet midodrine (PROAMATINE) 5 mg tablet multivit hknopvnq-vfhi-EG-calcium (THERA-M) 9 mg iron-400 mcg tablet multivitamin,tx-minerals (VITAMINS AND MINERALS) tablet ondansetron (ZOFRAN) 4 mg tablet promethazine (PHENERGAN) 25 mg tablet thiamine (VITAMIN B-1) 50 mg tablet traMADol (ULTRAM) 50 mg tablet ALLERGIES: Oxycodone and Demerol [meperidine] INPATIENT MEDS: albumin 25 g Q8H SANDRA cefTRIAXone 1,000 mg Q24H SANDRA folic acid 1 mg Daily metroNIDAZOLE 500 mg Q12H SANDRA midodrine 5 mg TID multivit xnbmtejm-ncgz-RL-calcium 1 tablet Daily pantoprazole 80 mg Daily potassium chloride 40 mEq Once sodium chloride 0.9% 5-10 mL Q12H SANDRA ALPRAZolam 0.25 mg TID PRN HYDROmorphone 0.2 mg Q6H PRN metoclopramide 5 mg Q8H PRN prochlorperazine 10 mg Q6H PRN sodium chloride 0.9% 5-20 mL PRN dextrose 5% and sodium chloride 0.45% Last Rate: 75 mL/hr (10/12/17 1727) phenylephrine Last Rate: 2 mcg/kg/min (10/12/17 3435) REVIEW OF SYSTEMS: All Review of Systems obtained, and is negative other than that mentioned in the History of PresentIllness. PHYSICAL EXAM : VITALS: Patient Vitals for the past 12 hrs: BP Temp Temp src Pulse Resp SpO2 Height 10/12/17 1415 (!) 84/60 - - 81 17 100 % - 10/12/17 1400 (!) 69/49 - - 80 15 100 % - 10/12/17 1345 (!) 71/52 - - 79 15 100 % - 10/12/17 1300 (!) - - 87 15 99 % - 10/12/17 1245 (!) 57 - - 88 18 100 % - 10/12/17 1230 91/73 - - 86 20 97 % - 10/12/17 1215 (!) - - 77 16 92 % - 10/12/17 1200 (!) 37 ??C (98.6 ??F) Temporal 80 16 98 % - 10/12/17 1145 (!) 8969 - - 86 19 95 % - 10/12/17 1115 (!) 74/59 - - 80 17 100 % - 10/12/17 1104 (!) 57 - - 90 19 96 % - 10/12/17 1101 (!) 70/49 - - 85 17 98 % - 10/12/17 1100 (!) 8457 - - 79 14 100 % - 10/12/17 1059 (!) 7156 - - 89 19 100 % - 10/12/17 1055 (!) 69/51 - - 80 17 100 % - 10/12/17 1053 (!) 77/53 - - 80 15 98 % - 10/12/17 1051 (!) 7255 - - 81 14 98 % - 10/12/17 1049 (!) 74/53 - - 87 20 100 % - 10/12/17 1047 (!) 79/55 - - 96 27 100 % - 10/12/17 1045 (!) 7353 - - 84 15 100 % - 10/12/17 1036 - - - - - - 160 cm (5' 3 ) 10/12/17 1030 (!) 73/54 - - 82 14 100 % - 10/12/17 1015 (!) 7154 - - 90 20 100 % - 10/12/17 1000 (!) 78/49 - - 90 25 99 % - 10/12/17 0930 (!) 80/54 - - 89 16 99 % - 10/12/17 0900 (!) 72/51 - - 81 15 100 % - 10/12/17 0845 (!) 76/56 - - 81 18 100 % - 10/12/17 0830 (!) 71/48 - - 81 13 100 % - 10/12/17 0815 (!) 81/51 - - 89 17 100 % - 10/12/17 0800 (!) 70/49 36.7 ??C (98.1 ??F) Temporal 88 21 100 % - 10/12/17 0745 (!) 68/49 - - 82 12 100 % - 10/12/17 0630 (!) 61/47 - - 86 13 99 % - 10/12/17 0600 (!) 67/54 - - 89 13 100 % - 10/12/17 0545 (!) 68/44 - - 90 13 100 % - 10/12/17 0530 (!) 72/55 - - 94 14 100 % - 10/12/17 0515 (!) 74/59 - - 95 13 100 % - 10/12/17 0500 (!) 83/55 - - 96 14 100 % - 10/12/17 0430 (!) 76/59 - - 95 14 100 % - Temp (24hrs), Av.8 ??C (98.2 ??F), Min:36.2 ??C (97.2 ??F), Max:37.1 ??C (98.7 ??F) Weight: Wt Readings from Last 1 Encounters: 10/11/17 41.4 kg (91 lb 4.3 oz) General: alert, oriented and in no acute distress. Neck: supple, no use of accessory muscles CVS: normal rate, regular rhythm, normal S1, S2, no murmurs Chest: clear to auscultation, no wheezes, rales or rhonchi, symmetric air entry Abdominal: soft, nontender, nondistended Extremities: warm, no mottling Neuro: alert, oriented, normal speech, no focal findings or movement disorder noted DATA REVIEW : Recent Results (from the past 96 hour(s)) ECG 12 lead Collection Time: 10/11/17 4:09 PM Result Value Ref Range Patient age 56 years Interpretation Text SINUS RHYTHMLOW QRS VOLTAGEINCOMPLETE RIGHT BUNDLE BRANCH BLOCKPOSSIBLE ANTERIOR MYOCARDIAL INFARCTION , PROBABLY OLDABNORMAL ECGNO PREVIOUS TRACING Ventricular Rate EKG/Min 90 /min P Wave Duration 100 ms QRS-Interval (MSEC) 102 ms FL-Interval (MSEC) 168 ms QT Interval 372 ms QTc 424 ms QTC Interval ms P Colt 80 deg QRS Colt 88 deg T Colt 32 deg CBC with auto differential Collection Time: 10/11/17 4:16 PM Result Value Ref Range WBC 12.5 (H) 3.8 - 9.9 K/cumm RBC 2.96 (L) 3.90 - 5.20 M/cumm Hgb 9.4 (L) 11.9 - 15.5 g/dL Hct 25.3 (L) 35.6 - 45.5 % MCV 85.5 81.3 - 96.4 fL MCH 31.8 27.1 - 33.3 pg MCHC 37.2 (H) 32.3 - 35.7 g/dL RDW CV 11.8 11.1 - 14.9 % RDW SD 36.5 35.7 - 48.1 fL Plt 472 (H) 150 - 400 K/cumm MPV 8.1 (L) 9.1 - 12.3 fL NRBC Abs 0.00 0.00 - 0.01 K/cumm Comprehensive metabolic panel Collection Time: 10/11/17 4:16 PM Result Value Ref Range Sodium 115 (Critical) 135 - 145 mmol/L Potassium 4.6 3.3 - 4.9 mmol/L CO2 24 22 - 32 mmol/L BUN 18 8 - 25 mg/dL Glucose 139 70 - 199 mg/dL Creatinine 1.36 (H) 0.60 - 1.10 mg/dL Calcium 7.7 (L) 8.5 - 10.3 mg/dL Chloride 80 (L) 97 - 110 mmol/L Albumin 1.7 (L) 3.5 - 5.0 g/dL AST 24 10 - 45 Units/L ALT 14 7 - 45 Units/L Alk phos 204 (H) 40 - 130 Units/L Bilirubin 0.5 0.1 - 1.2 mg/dL Protein, pl 4.1 (L) 6.5 - 8.5 g/dL Anion Gap 11 2 - 15 mmol/L Lactate, whole blood Collection Time: 10/11/17 4:16 PM Result Value Ref Range Lactic acid, bld 2.6 (H) 0.5 - 2.2 mmol/L Lipase Collection Time: 10/11/17 4:16 PM Result Value Ref Range Lipase 15 10 - 99 Units/L Troponin T Collection Time: 10/11/17 4:16 PM Result Value Ref Range Troponin T <0.01 0.00 - 0.06 ng/mL Differential, auto Collection Time: 10/11/17 4:16 PM Result Value Ref Range Neutrophil absolute 10.8 (H) 1.7 - 6.5 K/cumm Immature granulocyte absolute 0.1 0.0 - 0.1 K/cumm Lymphocytes absolute 1.0 0.8 - 3.3 K/cumm Monocyte absolute 0.6 0.2 - 0.8 K/cumm Eosinophils absolute 0.0 0.0 - 0.5 K/cumm Basophils, abs 0.0 0.0 - 0.1 K/cumm Neutrophils 86.1 % Immature granulocytes 0.5 % Lymphocytes 7.9 % Monocytes 5.1 % Eosinophils 0.3 % Basophils 0.1 % eGFR Collection Time: 10/11/17 4:16 PM Result Value Ref Range GFR 44 mL/min/1.73 m2 Blood culture Blood Collection Time: 10/11/17 5:07 PM Result Value Ref Range Report Preliminary Report: No growth to date. Blood culture Blood Collection Time: 10/11/17 5:13 PM Result Value Ref Range Report Preliminary Report: No growth to date. Urinalysis reflex to microscopic and culture Urine, clean voided Collection Time: 10/11/17 5:22 PM Result Value Ref Range Color, ur Ngoc (A) Yellow Clarity, ur Cloudy (A) Clear Specific gravity, ur 1.015 1.010 - 1.025 pH, urine 5.5 Protein, ur ql Trace Negative Glucose, ur ql Negative Negative Ketones, ur Negative Negative Bilirubin, ur Negative Negative Blood, ur Negative Negative Urobilinogen, ur 0.2 mg/dL Nitrite, ur Negative Negative Leukocyte esterase, ur 2+ (A) Negative Urinalysis, microscopic only Collection Time: 10/11/17 5:22 PM Result Value Ref Range WBC, ur 11-20 (A) 0 - 5 /HPF RBC, ur 6-10 (A) 0 - 5 /HPF Epithelial cells, squamous, ur 11-20 (A) 0 - 5 /HPF Bacteria, ur 1+ (A) Hyaline casts, ur 1-5 0 - 10 /LPF Sodium, urine, random Collection Time: 10/11/17 5:22 PM Result Value Ref Range Sodium, ur <20 mEq/L Urine culture Collection Time: 10/11/17 5:22 PM Result Value Ref Range Report Preliminary Report: Insignificant growth based on current clinical standards. Protime-INR Collection Time: 10/11/17 9:48 PM Result Value Ref Range PT 13.3 (H) 9.5 - 13.0 sec INR 1.17 0.90 - 1.20 Magnesium Collection Time: 10/12/17 1:29 AM Result Value Ref Range Magnesium 1.7 1.6 - 2.4 mg/dL Renal function panel Collection Time: 10/12/17 1:29 AM Result Value Ref Range Sodium 120 (Critical) 135 - 145 mmol/L Potassium 4.2 3.3 - 4.9 mmol/L Chloride 86 (L) 97 - 110 mmol/L CO2 21 (L) 22 - 32 mmol/L Anion Gap 13 2 - 15 mmol/L Glucose 154 70 - 199 mg/dL BUN 17 8 - 25 mg/dL Creatinine 1.26 (H) 0.60 - 1.10 mg/dL Calcium 7.3 (L) 8.5 - 10.3 mg/dL Phosphorus, pl 4.7 (H) 2.3 - 4.5 mg/dL Albumin 1.6 (L) 3.5 - 5.0 g/dL eGFR Collection Time: 10/12/17 1:29 AM Result Value Ref Range GFR 48 mL/min/1.73 m2 CBC with auto differential Collection Time: 10/12/17 5:49 AM Result Value Ref Range WBC 13.5 (H) 3.8 - 9.9 K/cumm RBC 2.81 (L) 3.90 - 5.20 M/cumm Hgb 8.9 (L) 11.9 - 15.5 g/dL Hct 24.2 (L) 35.6 - 45.5 % MCV 86.1 81.3 - 96.4 fL MCH 31.7 27.1 - 33.3 pg MCHC 36.8 (H) 32.3 - 35.7 g/dL RDW CV 11.8 11.1 - 14.9 % RDW SD 37.4 35.7 - 48.1 fL Plt 479 (H) 150 - 400 K/cumm MPV 8.0 (L) 9.1 - 12.3 fL NRBC Abs 0.00 0.00 - 0.01 K/cumm Comprehensive metabolic panel Collection Time: 10/12/17 5:49 AM Result Value Ref Range Sodium 122 (L) 135 - 145 mmol/L Potassium 3.8 3.3 - 4.9 mmol/L CO2 22 22 - 32 mmol/L BUN 17 8 - 25 mg/dL Glucose 210 (H) 70 - 199 mg/dL Creatinine 1.32 (H) 0.60 - 1.10 mg/dL Calcium 7.4 (L) 8.5 - 10.3 mg/dL Chloride 87 (L) 97 - 110 mmol/L Albumin 1.8 (L) 3.5 - 5.0 g/dL AST 22 10 - 45 Units/L ALT 12 7 - 45 Units/L Alk phos 172 (H) 40 - 130 Units/L Bilirubin 0.4 0.1 - 1.2 mg/dL Protein, pl 3.8 (L) 6.5 - 8.5 g/dL Anion Gap 13 2 - 15 mmol/L Phosphorus Collection Time: 10/12/17 5:49 AM Result Value Ref Range Phosphorus, pl 4.7 (H) 2.3 - 4.5 mg/dL Magnesium Collection Time: 10/12/17 5:49 AM Result Value Ref Range Magnesium 2.9 (H) 1.6 - 2.4 mg/dL Differential, auto Collection Time: 10/12/17 5:49 AM Result Value Ref Range Neutrophil absolute 12.3 (H) 1.7 - 6.5 K/cumm Immature granulocyte absolute 0.1 0.0 - 0.1 K/cumm Lymphocytes absolute 0.5 (L) 0.8 - 3.3 K/cumm Monocyte absolute 0.6 0.2 - 0.8 K/cumm Eosinophils absolute 0.0 0.0 - 0.5 K/cumm Basophils, abs 0.0 0.0 - 0.1 K/cumm Neutrophils 91.1 % Immature granulocytes 0.4 % Lymphocytes 3.7 % Monocytes 4.7 % Eosinophils 0.0 % Basophils 0.1 % eGFR Collection Time: 10/12/17 5:49 AM Result Value Ref Range GFR 45 mL/min/1.73 m2 Basic metabolic panel Collection Time: 10/12/17 10:01 AM Result Value Ref Range Sodium 122 (L) 135 - 145 mmol/L Potassium 3.3 3.3 - 4.9 mmol/L Chloride 88 (L) 97 - 110 mmol/L CO2 23 22 - 32 mmol/L BUN 17 8 - 25 mg/dL Glucose 185 70 - 199 mg/dL Creatinine 1.25 (H) 0.60 - 1.10 mg/dL Calcium 7.5 (L) 8.5 - 10.3 mg/dL Anion Gap 11 2 - 15 mmol/L eGFR Collection Time: 10/12/17 10:01 AM Result Value Ref Range GFR 48 mL/min/1.73 m2 ASSESSMENT: Principal Problem: Pneumonia of left lower lobe due to infectious organism (CMS/HCC) Active Problems: Ascites Abdominal pain HERNANDEZ (nonalcoholic steatohepatitis) Anxiety Hypotension Chronic hyponatremia Acute cystitis with hematuria MAINOR (acute kidney injury) (CMS/HCC) Generalized weakness Severe protein-calorie malnutrition (CMS/HCC) PLAN: 1. Pulm - no acute issues 2. CVS - septic shock - s/p fluid bolus - titrate vasopressor to sbp >90mmHg - change neosynephrine to norepinephrine once PICC is in - cont midodrine 3. Renal - MAINOR and hyponatremia secondary to hypovolemia - hypocalcemia, replace - electrolyte replacement protocol - change ivf to NS - cont albumin q 8hrs - pt refusing atkinson placement despite being on pressors 4. ID - sepsis from colitis; possible SBP - flagyl and ceftriaxone D1 - trend lactic acid - pt refused paracentesis, stating its only been 4 days 5. GI - HERNANDEZ with a MELD of 11 - clear liquid diet and advance as tolerated - CT of the abdomen showed extensive ascites; colitis, possibly infectious, inflammatory or ischemic; however, pt asymptomatic and not complaining of shortness of breath or abdominal pain - GI consulted 6. Heme - scd for dvt prophylaxis 7. Endo - no acute issues 8. Neuro - no acute issues Discussed pt's condition with her as well as with her who is present at the bedside. There was a confusion on admission about her being transferred to [facility] (since that is where her social work therapist is), she states that she is amendable to transfer to [facility] if needed. More than 40mins of critical care time was spent with the patient. Amy Olvera MD 10/12/20174:26 PM Primary Care Physician: Fernie Barfield, DO documented in this encounter Nursing Notes * Jessee Torres RN - 10/14/2017 7:36 PM CDT Pt left ICU at 1936 for transfer [facility]. Pt vss, intubated, and sedated. Pt was receiving fluids, levophed, and propofol. Pt arrived to U in stable condition. Bedside report given to Maddy ALLEN * Manav Goss RN - 10/14/2017 7:00 PM CDT At 1725 Became acutely hypoxic, pulsox in 70's. Has faint crackles on the right. Diminished throughout. HR 120s. BP 114/83. Increased 02 to 10 L High flow. Spoke to Dr. Olvera. Will start Vapotherm, check ABG , and portable chest xray. At 1800 she was on Vapotherm at 100%, 40 LPM. ABG showed Ph 7.08, pco2-60, po2 41, bicarb 17. ER physician was contacted for Intubation. At 1815 was given 20mg Etomidate, and 100mg Succinylcholine. ETT 7, taped at 20 at left lip. AC-18, TV 450, 100%, 5 Peep.Report was called to [place] at [facility]. EMS was contacted. * Shavon Villaseñor RN - 10/12/2017 2:00 AM CDT Pt had been c/o pain from vomiting so much in head, neck and back. Is super sensitive to even beingtouched and insists on removing any electrodes etc. herself because of how sensitive she is. Statesthat the dilaudid given at 0144 has helped her. Continues to c/o of feeling like she has a lump in her throat and has gotten some blood tinged sputum up. Has not been able to even swallow ice chips at this point to try to soothe her throat. * Shavon Villaseñor RN - 10/11/2017 11:55 PM CDT Received from ER via stretcher with complaints of nausea and vomiting for the past couple days. States she usually feels like this when she needs a paracentesis, but she just had one last Wednesday and they removed 2 3/4 liters. States they put her on midodrine for her low BP that usually runs in the 7 0's/systolic, but she hasn't been able to find it at home so she has not been taking it. Continues to have frequent vomiting upon arrival to ICU. Was given 3 liters of NS boluses in the ER as well aszofran x3 and a dose of zosyn, cipro and flagyl. documented in this encounter ED Notes * Elsi Sanon RN - 10/11/2017 3:33 PM CDT Pt presents to the emergency room for evaluation of weakness, vomiting x 1 week. Patient went to [place] 2 weeks ago and thinks the trip was too much for her. Patient also reports weight loss over the last several years. Patient in no distress. * Rd Davis Jr., MD - 10/11/2017 3:31 PM CDT HPI Chief Complaint Patient presents with ??? Nausea ??? Vomiting HPI 3:51 PM 10/11/17 Rosa Li is a 56 y.o. femalesmoker with history of HTN, cholecystectomy, chronic liver problems, chronic weight loss, HERNANDEZ with recurrent ascites, presenting to the ED via EMS complaining of acute on chronic emesis, weakness, and subjective fever which worsened last night. Pt is unable to keep down liquids or solids. No diarrhea. Pt was taking Zofran for symptoms, but reports that she ran out. She notes that she typically gets around in a wheelchair and began needing assistance doing daily activities two weeks ago after taking a trip to [place]. There are no other complaints at this time. PCP: Dr. Barfield Pt was admitted from 08/23/17 to 08/25/17 for the same symptoms. Pt was discharged home with diagnosisof ascites. Patient History Past Medical History: Diagnosis Date ??? HTN (hypertension) Past Surgical History: Procedure Laterality Date ??? CHOLECYSTECTOMY 01/2017 ??? US GUIDED PARACENTESIS N/A 08/24/2017 Family History Problem Relation Age of Onset ??? Diabetes Mother ??? Heart disease Mother Social History Substance Use Topics ??? Smoking status: Current Every Day Smoker Packs/day: 0.50 ??? Smokeless tobacco: Never Used ??? Alcohol use No Review of Systems Review of Systems Constitutional: Positive for fever and unexpected weight change. Negative for chills and fatigue. HENT: Negative for congestion, ear pain, rhinorrhea, sneezing and sore throat. Respiratory: Negative for cough, shortness of breath and wheezing. Cardiovascular: Negative for chest pain and palpitations. Gastrointestinal: Positive for vomiting. Negative for abdominal pain, constipation, diarrhea and nausea. Genitourinary: Negative for dysuria and frequency. Musculoskeletal: Negative for arthralgias, back pain, myalgias and neck pain. Skin: Negative for color change, pallor, rash and wound. Neurological: Positive for weakness. Negative for dizziness, syncope, light- headedness and headaches. All other systems reviewed and are negative. All systems reviewed and are neg or non contributory for this patients presentation today other than as stated in the HPI . Physical Exam ED Triage Vitals Temp Pulse Resp BP SpO2 -- -- -- -- -- Temp src Heart Rate Source Patient Position BP Location FiO2 (%) -- -- -- -- -- Physical Exam Constitutional: She is oriented to person, place, and time. She appears well- developed and well-nourished. No distress. Chronically ill-appearing and emaciated. No acute distress. HENT: Head: Normocephalic and atraumatic. Mouth/Throat: Oropharynx is clear and moist. Eyes: Conjunctivae and EOM are normal. Neck: Normal range of motion. Neck supple. Cardiovascular: Normal rate, regular rhythm, normal heart sounds and intact distal pulses. Exam reveals no gallop and no friction rub. No murmur heard. Pulmonary/Chest: Effort normal and breath sounds normal. No respiratory distress. She has no wheezes. She has no rales. Abdominal: Soft. She exhibits no distension. There is no tenderness. Musculoskeletal: Normal range of motion. She exhibits no edema, tenderness or deformity. Neurological: She is alert and oriented to person, place, and time. Generally weak without focality. Skin: Skin is warm and dry. Capillary refill takes less than 2 seconds. No rash noted. No erythema.No pallor. Psychiatric: She has a normal mood and affect. Her behavior is normal. Nursing note and vitals reviewed. Procedures ED Course & MDM Labs Reviewed URINALYSIS AND REFLEX TO MICROSCOPIC AND CULTURE CBC WITH AUTO DIFFERENTIAL COMPREHENSIVE METABOLIC PANEL LACTATE, WHOLE BLOOD LIPASE TROPONIN T No orders to display Ht 160 cm (5' 3 ) Wt 36.7 kg (81 lb) BMI 14.35 kg/m?? MDM Clinical Impression: No diagnosis found. This note is prepared by Bryanna Torres, acting as a Scribe for Rd Sheriff. Signed by elvira Tolliver, 10/11/2017, 3:51 PM. I, Rd Sheriff , have personally preformed the services described in the documentation, reviewed the documentation, as recorded by the scribe in my presence, and it accurately and completely records my words and actions. Rd Davis Jr., MD 10/11/17 4710 * Charity Ferris RN - 10/11/2017 3:30 PM CDT Bed: ED12 Expected date: 10/11/17 Expected time: 3:15 PM Means of arrival: Ambulance Comments: [facility] [id number] Charity Ferris RN 10/11/17 1530 documented in this encounter Miscellaneous Notes * Significant Event - Amy Olvera MD - 10/14/2017 7:36 PM CDT Around 1725 on 10/14/17, patient became acutely hypoxic with O2 sat in 70's with faint crackles. Shewas placed HFNC with minimal improvement. Worsening respiratory status prompted emergent intubation. [facility] was updated regarding change in status prior to transfer. * Plan of Care - Manav Goss RN - 10/14/2017 4:15 PM CDT Goals: Clinical Goals for the Shift: Stable vital signs and rspiratory status. Summary:Remains on low dose Levophed. O2 6L high flow. Possible transfer to [facility]. * Plan of Care - Deb Dwyer RN - 10/14/2017 6:31 AM CDT Goals: Clinical Goals for the Shift: stable BP off pressors, improve breathing Summary: Patient VSS. Patient has worn the high flow nasal cannula throughout the night, was able to turn it down to 6L for a long time but did have to go back up to 8L. Patient sinus rhythm to sinus tach. Levophed drip continues to be titrated down. Patient complains of back pain in which tramadol and dilaudid were given to relieve. Patient has not had very much intake throughout the night. Have encouraged patient to turn, cough and deep breath, and use her incentive spirometry. Patient does have a cough with some sputum but not a lot. Activity: ??? Mobility will improve Not Progressing Nutritional: ??? Dietary intake will improve Not Progressing Fluid Volume: ??? Ability to achieve a balanced intake and output will improve Progressing ??? Hemodynamic stability will improve Progressing Health Behavior: ??? Understanding of discharge needs will improve Progressing Lack of Knowledge: ??? Understanding of ways to prevent future skin breakdown will improve Progressing ??? Ability to identify appropriate dietary choices will improve Progressing ??? Ability to state ways to decrease the risk of falls will improve Progressing ??? Knowledge of disease or condition will improve Progressing ??? Verbalization of understanding the information provided will improve Progressing Nutritional: ??? Ability to maintain a balanced intake and output will improve Progressing Physical Regulation: ??? Ability to maintain clinical measurements within normal limits will improve Progressing ??? Will show no signs and symptoms of electrolyte imbalance Progressing ??? Complications related to the disease process, condition or treatment will be avoided or minimized Progressing ??? Diagnostic test results will improve Progressing ??? Signs and symptoms of infection will decrease Progressing Respiratory: ??? Ability to maintain adequate ventilation will improve Progressing ??? Levels of oxygenation will improve Progressing Safety: ??? Will remain free from falls Progressing ??? Will remain free from injury from falls Progressing Skin Integrity: ??? Risk for impaired skin integrity will decrease Progressing ??? Ability to demonstrate warm and dry skin will improve Progressing ??? Circulation will improve to fullest extent possible Progressing Tissue Perfusion: ??? Adequacy of tissue perfusion will improve Progressing ??? Will regain or maintain usual level of consciousness Progressing * Plan of Care - Deb Salazar RN - 10/13/2017 3:46 PM CDT Goals: Clinical Goals for the Shift: stable B/P off pressors. Improve oxygenation Summary: Receiving 2 units of PC's. Cleared by speech therapy to begin diet. Able to take midarone.Weaning levophed. Oral intake remains poor despite encouragement. * Plan of Care - Shavon Villaseñor RN - 10/13/2017 4:50 AM CDT Activity: ??? Mobility will improve Not Progressing Fluid Volume: ??? Ability to achieve a balanced intake and output will improve Not Progressing Health Behavior: ??? Understanding of discharge needs will improve Not Progressing Lack of Knowledge: ??? Understanding of ways to prevent future skin breakdown will improve Not Progressing ??? Ability to identify appropriate dietary choices will improve Not Progressing ??? Ability to state ways to decrease the risk of falls will improve Not Progressing ??? Knowledge of disease or condition will improve Not Progressing Nutritional: ??? Dietary intake will improve Not Progressing ??? Ability to maintain a balanced intake and output will improve Not Progressing Physical Regulation: ??? Ability to maintain clinical measurements within normal limits will improve Not Progressing Safety: ??? Will remain free from falls and injury in home environment Not Progressing Skin Integrity: ??? Risk for impaired skin integrity will decrease Not Progressing ??? Ability to demonstrate warm and dry skin will improve Not Progressing ??? Circulation will improve to fullest extent possible Not Progressing Physical Regulation: ??? Will show no signs and symptoms of electrolyte imbalance Progressing Safety: ??? Will remain free from falls Progressing ??? Will remain free from injury from falls Progressing Goals: Clinical Goals for the Shift: Decrease nausea-improve blood pressure-control pain Summary: Has not had any nausea or vomiting tonight but continues to c/o that it feels like something is stuck in her throat and does not want to try to swallow any pills. Results of CXR called to Dr. Olvera which showed development of left lower lobe infiltrate since xray taken 2 hours earlier suspicious for aspiration. Kept NPO except for a few ice chips until after swallow study done this am. Iv levophed titrated up to 0.18 mcg/kg/min to maintain systolic BP 80 or greater. O2 sats continued to drop, necessitating changing to high flow nasal cannula and titrating up to as high as 15 liters while she is awake. Crying and unable to rest with c/o pain with dilaudid q 6 hours, so Dr. Olvera called and increased to q 4 hours. Has been resting much better and requiring less O2 since pain medication increased. O2 is currently at 8 liters/high flow nasal cannula. Continues to refuse atkinson catheter. Did void once during this current shift 125 ml. D51/2NS continues at 75 ml/hr. For possible paracentesis today. * Plan of Care - Ronan Grewal RN - 10/12/2017 8:58 PM CDT Goals: Activity: ??? Mobility will improve Not Progressing Fluid Volume: ??? Ability to achieve a balanced intake and output will improve Not Progressing Health Behavior: ??? Understanding of discharge needs will improve Not Progressing Lack of Knowledge: ??? Understanding of ways to prevent future skin breakdown will improve Not Progressing ??? Ability to identify appropriate dietary choices will improve Not Progressing ??? Ability to state ways to decrease the risk of falls will improve Not Progressing ??? Knowledge of disease or condition will improve Not Progressing Nutritional: ??? Dietary intake will improve Not Progressing ??? Ability to maintain a balanced intake and output will improve Not Progressing Physical Regulation: ??? Ability to maintain clinical measurements within normal limits will improve Not Progressing ??? Will show no signs and symptoms of electrolyte imbalance Not Progressing Safety: ??? Will remain free from falls Not Progressing ??? Will remain free from injury from falls Not Progressing ??? Will remain free from falls and injury in home environment Not Progressing Skin Integrity: ??? Risk for impaired skin integrity will decrease Not Progressing ??? Ability to demonstrate warm and dry skin will improve Not Progressing ??? Circulation will improve to fullest extent possible Not Progressing Clinical Goals for the Shift: decrease nausea, improve p.o. intake, adequate BP and stable VS. Summary: Pt's nausea improved and pt has been taking small amounts of fluids and small bites of food. P.O. Intake remains inadequate. Pt continues to require IV pressors to maintain BP. Pt has generalized weakness. She does move about in the bed some and assists with turning and positioning. * [facility] Note - Brunilda Rothman RN - 10/12/2017 3:20 PM CDT Patient Information: Meds and Admin Active Only All Meds/Most Recent Administrations ondansetron (ZOFRAN) injection 4 mg [[id number]] Ordering Provider: Rd Davis Jr., MD Status: Completed (Past End Date/Time) Ordered On: 10/11/17 1545 Starts/Ends: 10/11/17 1600 - 10/11/17 1554 Dose (Remaining/Total): 4 mg (0/1) Route: intravenous Frequency: Once Rate/Duration: -- / -- Line Med Link Info Comment Peripheral IV 10/11/17 Left Antecubital 10/11/17 155 by Elsi Sanon RN -- Timestamps Action Dose Route / Site Other Information 10/11/17 155 Given 4 mg intravenous Left Antecubital Performed by: Elsi Sanon RN sodium chloride 0.9% bolus 1,000 mL [[id number]] Ordering Provider: Rd Davis Jr., MD Status: Completed (Past End Date/Time) Ordered On: 10/11/17 154 Starts/Ends: 10/11/17 1600 - 10/11/17 1705 Dose (Remaining/Total): 1,000 mL (0/1) Route: intravenous Frequency: Once Rate/Duration: -- / -- Line Med Link Info Comment Peripheral IV 10/11/17 Left Antecubital 10/11/17 155 by Elsi Sanon RN -- Timestamps Action Dose Route / Site Other Information 10/11/17 155 New Bag 1,000 mL intravenous Left Antecubital Performed by: Elsi Sanon RN Comments: alaris pump sodium chloride 0.9% bolus 1,000 mL [[id number]] Ordering Provider: Marisol Wilder MD Status: Completed (Past End Date/Time) Ordered On: 10/11/17 1717 Starts/Ends: 10/11/17 1730 - 10/11/17 1845 Dose (Remaining/Total): 1,000 mL (0/1) Route: intravenous Frequency: Once Rate/Duration: -- / -- Line Med Link Info Comment Peripheral IV 10/11/17 Left Antecubital 10/11/17 172 by Elsi Sanon RN -- Timestamps Action Dose Route / Site Other Information 10/11/17 172 New Bag 1,000 mL intravenous Left Antecubital Performed by: Elsi Sanon RN Comments: alaris pump piperacillin-tazobactam (ZOSYN) 3.375 g in 50 mL dextrose (premix) [[id number]] Ordering Provider: Marisol Wilder MD Status: Completed (Past End Date/Time) Ordered On: 10/11/171717 Starts/Ends: 10/11/171729 - 10/11/171755 Dose (Remaining/Total): 3.375 g (0/1) Route: intravenous Frequency: Once Rate/Duration: -- / -- Line Med Link Info Comment Peripheral IV 10/11/17 Left Antecubital 10/11/171729 by Elsi Sanon RN -- Timestamps Action Dose Route / Site Other Information 10/11/171729 New Bag 3.375 g intravenous Left Antecubital Performed by: Elsi Sanon RN Comments: alaris pump HYDROmorphone (DILAUDID) injection 0.5 mg [[id number]] Ordering Provider: Marisol Wilder MD Status: Completed (Past End Date/Time) Ordered On: 10/11/171747 Starts/Ends: 10/11/171799 - 10/11/171755 Dose (Remaining/Total): 0.5 mg (0/1) Route: intravenous Frequency: Once Rate/Duration: -- / -- Line Med Link Info Comment Peripheral IV 10/11/17 Left Antecubital 10/11/171755 by Elsi Sanon RN -- Timestamps Action Dose Route / Site Other Information 10/11/171755 Given 0.5 mg intravenous Left Antecubital Performed by: Elsi Sanon RN ondansetron (ZOFRAN) injection 4 mg [[id number]] Ordering Provider: Marisol Wilder MD Status: Completed (Past End Date/Time) Ordered On: 10/11/171747 Starts/Ends: 10/11/171799 - 10/11/171756 Dose (Remaining/Total): 4 mg (0/1) Route: intravenous Frequency: Once Rate/Duration: -- / -- Line Med Link Info Comment Peripheral IV 10/11/17 Left Antecubital 10/11/171756 by Elsi Sanon RN -- Timestamps Action Dose Route / Site Other Information 10/11/171756 Given 4 mg intravenous Left Antecubital Performed by: Elsi Sanon RN ioversol intravenous syringe 100 mL [[id number]] Ordering Provider: Marisol Wilder MD Status: Completed (Past End Date/Time) Ordered On: 10/11/171817 Starts/Ends: 10/11/171817 - 10/11/171818 Dose (Remaining/Total): 100 mL (0/1) Route: intravenous Frequency: Once in imaging Rate/Duration: -- / -- Line Med Link Info Comment Peripheral IV 10/11/17 Left Antecubital 10/11/171818 by RT Fabiola -- Timestamps Action Dose Route Other Information 10/11/171818 Given 100 mL intravenous Performed by: Barbara Miller RT metroNIDAZOLE (FLAGYL) 500 mg/100 mL in sodium chloride (premix) 500 mg [[id number]] Ordering Provider: Marisol Wilder MD Status: Dispensed Ordered On: 10/11/171952 Start: 10/11/172099 Dose (Remaining/Total): 500 mg (--/--) Route: intravenous Frequency: Every 12 hours scheduled Rate/Duration: 100 mL/hr / 60 Minutes Admin Instructions: Room temperature only Line Med Link Info Comment Peripheral IV 10/11/17 Left Antecubital 10/11/172031 by Zheng Marino RN -- Timestamps Action Dose / Rate / Duration Route Other Information 10/12/17 0944 New Bag 500 mg 100 mL/hr 60 Minutes intravenous Performed by: Ronan Grewal RN sodium chloride 0.9% bolus 1,000 mL [[id number]] Ordering Provider: Marisol Wilder MD Status: Completed (Past End Date/Time) Ordered On: 10/11/172138 Starts/Ends: 10/11/172144 - 10/12/17 0434 Dose (Remaining/Total): 1,000 mL (0/1) Route: intravenous Frequency: Once Rate/Duration: 1,000 mL/hr / 1 Hours Line Med Link Info Comment Peripheral IV 10/11/17 Left Antecubital 10/11/172144 by Zheng Marino RN -- Timestamps Action Dose / Rate / Duration Route Other Information 10/11/172144 New Bag 1,000 mL 1,000 mL/hr 1 Hours intravenous Performed by: Zheng Marino RN ondansetron (ZOFRAN) injection 4 mg [[id number]] Ordering Provider: Marisol Wilder MD Status: Completed (Past End Date/Time) Ordered On: 10/11/172151 Starts/Ends: 10/11/172199 - 10/11/172154 Dose (Remaining/Total): 4 mg (0/1) Route: intravenous Frequency: Once Rate/Duration: -- / -- Line Med Link Info Comment Peripheral IV 10/11/17 Left Antecubital 10/11/172154 by Zheng Marino RN -- Timestamps Action Dose Route Other Information 10/11/172154 Given 4 mg intravenous Performed by: Zheng Marino RN pantoprazole (PROTONIX) injection 80 mg [[id number]] Ordering Provider: Marisol Wilder MD Status: Dispensed Ordered On: 10/11/172347 Start: 10/12/17 0900 Dose (Remaining/Total): 80 mg (--/--) Route: intravenous Frequency: Daily Rate/Duration: -- / -- Line Med Link Info Comment Peripheral IV 10/11/17 Left Antecubital 10/12/17 1010 by Ronan Grewal RN -- Timestamps Action Dose Route Other Information 10/12/17 101 Given 80 mg intravenous Performed by: Ronan Grewal RN ondansetron (ZOFRAN) injection 4 mg [[id number]] Ordering Provider: Marisol Wilder MD Status: Completed (Past End Date/Time) Ordered On: 10/11/172347 Starts/Ends: 10/12/17 0030 - 10/12/17 0044 Dose (Remaining/Total): 4 mg (0/1) Route: intravenous Frequency: Once Rate/Duration: -- / -- Line Med Link Info Comment Peripheral IV 10/11/17 Left Antecubital 10/12/17 0044 by Shavon Villaseñor RN -- Timestamps Action Dose Route Other Information 10/12/1743 Given 4 mg intravenous Performed by: Shavon Villaseñor RN metoclopramide (REGLAN) injection 5 mg [[id number]] Ordering Provider: Liang Jacobsen MD Status: Dispensed Ordered On: 10/11/172352 Start: 10/11/172351 Dose (Remaining/Total): 5 mg (--/--) Route: intravenous Frequency: Every 8 hours PRN Rate/Duration: -- / 5 Minutes Line Med Link Info Comment Peripheral IV 10/11/17 Left Antecubital 10/12/17 000 by Shavon Villaseñor RN -- Timestamps Action Dose / Duration Route Other Information 10/12/175 Given 5 mg 5 Minutes intravenous Performed by: Shavon Villaseñor RN ALPRAZolam (XANAX) tablet 0.25 mg [[id number]] Ordering Provider: Liang Jacobsen MD Status: Verified Ordered On: 10/12/17112 Start: 10/12/17100 Dose (Remaining/Total): 0.25 mg (--/--) Route: oral Frequency: 3 times daily PRN Rate/Duration: -- / -- (No admins recorded for this medication) folic acid (FOLVITE) tablet 1 mg [[id number]] Ordering Provider: Liang Jacobsen MD Status: Verified Ordered On: 10/12/17112 Start: 10/12/17899 Dose (Remaining/Total): 1 mg (--/--) Route: oral Frequency: Daily Rate/Duration: -- / -- (No admins recorded for this medication) midodrine (PROAMATINE) tablet 5 mg [[id number]] Ordering Provider: Liang Jacobsen MD Status: Dispensed Ordered On: 10/12/17112 Start: 10/12/17899 Dose (Remaining/Total): 5 mg (--/--) Route: oral Frequency: 3 times daily Rate/Duration: -- / -- Timestamps Action Dose Route Other Information 05/29/18 0943 Given 5 mg oral Performed by: Ronan Grewal RN multivit qwpjlcol-ilse-ZK-calcium (THERA-M) tablet 1 tablet [[id number]] Ordering Provider: Liang Jacobsen MD Status: Verified Ordered On: 10/12/17112 Start: 10/12/17 0900 Dose (Remaining/Total): 1 tablet (--/--) Route: oral Frequency: Daily Rate/Duration: -- / -- (No admins recorded for this medication) HYDROmorphone (DILAUDID) injection 0.2 mg [[id number]] Ordering Provider: Liang Jacobsen MD Status: Dispensed Ordered On: 10/12/17112 Start: 10/12/17109 Dose (Remaining/Total): 0.2 mg (--/--) Route: intravenous Frequency: Every 6 hours PRN Rate/Duration: -- / -- Line Med Link Info Comment Peripheral IV 10/11/17 Left Antecubital 10/12/17143 by Shavon Villaseñor RN -- Timestamps Action Dose Route Other Information 10/12/17143 Given 0.2 mg intravenous Performed by: Shavon Villaseñor RN prochlorperazine (COMPAZINE) injection 10 mg [[id number]] Ordering Provider: Liang Jacobsen MD Status: Dispensed Ordered On: 10/12/17112 Start: 10/12/17111 Dose (Remaining/Total): 10 mg (--/--) Route: intravenous Frequency: Every 6 hours PRN Rate/Duration: -- / -- Line Med Link Info Comment Peripheral IV 10/11/17 Left Antecubital 10/12/17 032 by Shavon Villaseñor RN -- Timestamps Action Dose Route Other Information 10/12/17 1243 Given 10 mg intravenous Performed by: Ronan Grewal RN magnesium sulfate 2 g in 50 mL (premix) [[id number]] Ordering Provider: Liang Jacobsen MD Status: Completed (Past End Date/Time) Ordered On: 10/12/17307 Starts/Ends: 10/12/17399 - 10/12/17416 Dose (Remaining/Total): 2 g (0/1) Route: intravenous Frequency: Once Rate/Duration: -- / 60 Minutes Admin Instructions: X 1 dose per pharmacy electrolyte replacement protocol for magnesium 1.7 on 10/12 0129 Line Med Link Info Comment Peripheral IV 10/11/17 Left Antecubital 10/12/17316 by Shavon Villaseñor RN -- Timestamps Action Dose / Duration Route Other Information 10/12/17 031 New Bag 2 g 60 Minutes intravenous Performed by: Shavon Villaseñor RN dextrose 5% and sodium chloride 0.45% infusion [[id number]] Ordering Provider: Amy Olvera MD Status: Verified Ordered On: 10/12/17 0403 Start: 10/12/17 0445 Dose (Remaining/Total): 75 mL/hr (--/--) Route: intravenous Frequency: Continuous Rate/Duration: 75 mL/hr / -- Line Med Link Info Comment Peripheral IV 10/11/17 Left Antecubital 10/12/17 040 by Shavon Villaesñor RN -- Timestamps Action Dose / Rate Route Other Information 10/12/17 0751 Rate/Dose Change 75 mL/hr 75 mL/hr intravenous Performed by: Ronan Grewal RN albumin 25 % bottle 25 g [[id number]] Ordering Provider: Liang Jacobsen MD Status: Completed (Past End Date/Time) Ordered On: 10/12/17 0631 Starts/Ends: 10/12/17 0715 - 10/12/17 0642 Dose (Remaining/Total): 25 g (0/1) Route: intravenous Frequency: Once Rate/Duration: -- / -- Line Med Link Info Comment Peripheral IV 10/11/17 Left Antecubital 10/12/17 0642 by Shavon Villaseñor RN -- Timestamps Action Dose Route Other Information 10/12/17 0642 New Bag 25 g intravenous Performed by: Shavon Villaseñor RN albumin 25 % bottle 25 g [[id number]] Ordering Provider: Amy Olvera MD Status: Dispensed Ordered On: 10/12/17 0707 Start: 10/12/17 1400 Dose (Remaining/Total): 25 g (--/--) Route: intravenous Frequency: Every 8 hours scheduled Rate/Duration: -- / 1 Hours Line Med Link Info Comment Peripheral IV 10/11/17 Left Antecubital 10/12/171419 by Ronan Grewal RN -- Timestamps Action Dose / Duration Route Other Information 10/12/171419 New Bag 25 g 1 Hours intravenous Performed by: Ronan Grewal RN sodium chloride 0.9% flush 5-10 mL [[id number]] Ordering Provider: Amy Olvera MD Status: Verified Ordered On: 10/12/17716 Start: 10/12/17 09 Dose (Remaining/Total): 5-10 mL (--/--) Route: intra-catheter Frequency: Every 12 hours scheduled Rate/Duration: -- / -- Admin Instructions: Flush volume based on line type, size, and protocol. (No admins recorded for this medication) sodium chloride 0.9% flush 5-20 mL [[id number]] Ordering Provider: Amy Olvera MD Status: Verified Ordered On: 10/12/17716 Start: 10/12/17715 Dose (Remaining/Total): 5-20 mL (--/--) Route: intra-catheter Frequency: As needed Rate/Duration: -- / -- Admin Instructions: Flush volume based on line type, size, and protocol. (No admins recorded for this medication) phenylephrine (AUGIE-SYNEPHRINE) 25 mg in sodium chloride 0.9% 250 mL (0.1 mg/mL) infusion [[id number]] Ordering Provider: Amy Olvera MD Status: Dispensed Ordered On: 10/12/17719 Starts/Ends: 10/12/17 08 - 10/14/17 0750 Dose (Remaining/Total): 0.1-4 mcg/kg/min (--/--) Route: intravenous Frequency: Titrated Rate/Duration: 2.48-99.36 mL/hr / -- Question Answer Comment Initial rate: 0.5 mcg/kg/min -- Titrate: Up/Down -- Titirate by: 0.1 mcg/kg/min -- Every: 2 minutes -- Goal: SBP 80 SBP Goal: Other (comment) 80 Line Med Link Info Comment Peripheral IV 10/11/17 Left Antecubital 10/12/17 0751 by Ronan Grewal RN -- Timestamps Action Dose / Rate Route Other Information 10/12/17 1519 New Bag 2 mcg/kg/min 49.7 mL/hr intravenous Performed by: Ronan Grewal RN potassium chloride 40 mEq in sodium chloride 0.9% 500 mL IVPB [[id number]] Ordering Provider: Amy Olvera MD Status: Dispensed Ordered On: 10/12/17 1313 Start: 10/12/17 1400 Dose (Remaining/Total): 40 mEq (05/17) Route: intravenous Frequency: Once Rate/Duration: 130 mL/hr / 4 Hours (No admins recorded for this medication) cefTRIAXone (ROCEPHIN) 1000 mg in 10 mL sterile water (premix) [[id number]] Ordering Provider: Amy Olvera MD Status: Dispensed Ordered On: 10/12/17 1425 Start: 10/12/17 1500 Dose (Remaining/Total): 1,000 mg (--/--) Route: intravenous Frequency: Every 24 hours scheduled Rate/Duration: -- / 4 Minutes (No admins recorded for this medication) * Assessment & Plan Note - Liang Jacobsen MD - 10/12/2017 6:33 AM CDT Associated Problem(s): Severe protein-calorie malnutrition (CMS/HCC) (HCC) Patient with hyperproteinemia and hypoalbuminemia With ascites and hypertension Despite of a IV fluids patient's blood pressure remains low Will give 1 dose of albumin 50 g IV to increase oncotic pressures Will get medicine man on board to assist with the management * Plan of Care - Shavon Villaseñor RN - 10/12/2017 5:07 AM CDT Activity: ??? Mobility will improve Not Progressing Fluid Volume: ??? Ability to achieve a balanced intake and output will improve Not Progressing Health Behavior: ??? Understanding of discharge needs will improve Not Progressing Lack of Knowledge: ??? Understanding of ways to prevent future skin breakdown will improve Not Progressing ??? Ability to identify appropriate dietary choices will improve Not Progressing ??? Ability to state ways to decrease the risk of falls will improve Not Progressing ??? Knowledge of disease or condition will improve Not Progressing Nutritional: ??? Dietary intake will improve Not Progressing ??? Ability to maintain a balanced intake and output will improve Not Progressing Physical Regulation: ??? Ability to maintain clinical measurements within normal limits will improve Not Progressing ??? Will show no signs and symptoms of electrolyte imbalance Not Progressing Safety: ??? Will remain free from falls and injury in home environment Not Progressing Skin Integrity: ??? Risk for impaired skin integrity will decrease Not Progressing Safety: ??? Will remain free from falls Progressing ??? Will remain free from injury from falls Progressing Skin Integrity: ??? Ability to demonstrate warm and dry skin will improve Progressing ??? Circulation will improve to fullest extent possible Progressing Goals: Clinical Goals for the Shift: Control nausea and vomiting Summary: Continues to gag and c/o nausea and generalized pain whenever awake. Dozed for short time after dilaudid given and then again when compazine given- had previously received zofran x4 between icu and ER with little relief of nausea, then 5 mg of reglan with slight relief. Remains super sensitive to any touch or stimulation. Refuses SCDs-states they will make her vomit nonstop. Refuses foleycatheter states she does not have the urge to void. States she went in the ER and wants to get up to [facility] when she does have to go. Explained that her blood pressure is too low to get her up to the [facility] at this time. States she cannot turn to her right side or she will vomit. Sodium drawn at 0130 increased from 115 to 120 so iv fluids changed from NS at 125 to D51/2NS at 100 ml/hr. Received 2 GM Mag rider for Magnesium of 1.7. Will have labs redrawn at 0530 with sodium every 4 hours from then. * Assessment & Plan Note - Liang Jacobsen MD - 10/12/2017 4:15 AM CDT Associated Problem(s): Generalized weakness Multifactorial due to hyponatremia, protein calorie malnourishment, Hernandez, acute infection Will get PT OT consult to evaluate and treat * Assessment & Plan Note - Liang Jacobsen MD - 10/12/2017 4:11 AM CDT Associated Problem(s): Acute cystitis with hematuria Patient is started on Flagyl and Zosyn Urine cultures are pending Will adjust the medications as needed. * Assessment & Plan Note - Liang Jacobsen MD - 10/12/2017 4:10 AM CDT Associated Problem(s): Pneumonia of left lower lobe due to infectious organism Patient started on Flagyl and Zosyn Septic workup is in progress Will get sputum cultures and urine respiratory antigens Supplemental oxygen as needed * Assessment & Plan Note - Liang Jacobsen MD - 10/12/2017 4:08 AM CDT Associated Problem(s): Abdominal pain Multifactorial, due to colitis, UTI, and ascites/? SBP Patient on broad-spectrum antibiotics with vanc and Zosyn Trend CBC and BMP Electrolytes every 4 hr, correct as needed * Assessment & Plan Note - Liang Jacobsen MD - 10/12/2017 4:07 AM CDT Associated Problem(s): Ascites Ascites noted on the CT. With diffuse abdominal tenderness concerning for spontaneous bacterial peritonitis. Consider diagnostic paracentesis Will get GI consult * Assessment & Plan Note - Liang Jacobsen MD - 10/12/2017 4:07 AM CDT Associated Problem(s): Hypotension Chronic hypertension. Patient had been on midodrine in. She lost her medication bottle about a month's ago and had not been taking it. Will restart on midodrine Telemetry monitoring Strict I&Os * Assessment & Plan Note - Liang Jacobsen MD - 10/12/2017 4:07 AM CDT Associated Problem(s): Anxiety Will continue with home medications * Assessment & Plan Note - Liang Jacobsen MD - 10/12/2017 4:04 AM CDT Associated Problem(s): HERNANDEZ (nonalcoholic steatohepatitis) History of HERNANDEZ, follows in [facility] hepatology [facility]. Has an appointment this . Had a paracentesis about 2 weeks ago. States that usually after paracentesis she feels better however this time she became sicker CT of the abdomen consistent with colitis Patient is diffusely tender Concern for spontaneous bacterial peritonitis Septic workup is in progress Consider diagnostic paracentesis to rule out SBP Continue with IV antibiotics with Flagyl and Zosyn * Assessment & Plan Note - Liang Jacobsen MD - 10/12/2017 3:56 AM CDT Associated Problem(s): Chronic hyponatremia Acute on chronic hyponatremia, likely multifactorial due to dehydration secondary to persistent nausea and vomiting, versus SIADH versus chronic hyper aldosteronism state Will check for urine sodium Patient was started on IV fluids with normal saline Will switch IV fluids to D5 half-normal saline Repeat electrolytes every 4 hr to avoid rapid correction of hyponatremia * ED Procedure Note - Marisol Wilder MD - 10/12/2017 1:05 AM CDT Associated Order(s): ECG 12-LEAD Procedure ECG 12 lead Date/Time: 10/11/2017 4:09 PM Performed by: MARISOL WILDER Authorized by: RD DAVIS JR. Rate: ECG rate: 90 ECG rate assessment: normal Rhythm: Rhythm: sinus rhythm Ectopy: Ectopy: none QRS: QRS axis: Normal QRS intervals: Normal T waves: T waves: normal Other findings: Other findings: low voltage Interpretation: Interpretation: non-specific Marisol Wilder MD 10/12/17 0105 * ED Re-evaluation Note - Marisol Wilder MD - 10/11/2017 8:21 PM CDT Associated Order(s): ED CRITICAL CARE Patient care signed out to Dr. Wilder from Dr. Davis at [id number] Rechecked patient; she is stable. She has been informed of the lab and radiology findings. I recommended that the patient be either admitted here or be transferred to [facility] where her GI specialist is. Patient requests to be admitted here. Will speak to Hospitalist. Patient verbalizes understanding and agreement with plan. All questions have been addressed at this time. Case discussed with Dr. Jacobsen, [facility] Hospitalist, who accepts patient for admission, mimis a GI consult. 2133: Dr. Jacobsen has called back, requesting that the patient be admitted to the ICU. Nurse had approached me, notifying me of the patient's hypotension. Bolus of normal saline started;patient is mildly tachycardic. Current blood pressure is 86/55. She continues to be nauseous and has vomited once. Will continue with plans to admit to the ICU. Reviewed previous notes. Patient's systolic blood pressure ranges from low 100's to 130. In an ED visit on 08/23/2017, she had a documented blood pressure of 79/44. According to the patient, her systolic blood pressure runs just below 100. Checked a manual blood pressure, which is 96/66. Case discussed with PATY Mac, who has been informed of the patient's admission and agrees to consult. Vitals: 10/14/17 1600 10/14/17 1800 10/14/17 1841 10/14/17 1915 BP: 100/75 101/80 115/89 BP Location: Left arm Left arm Patient Position: Lying Lying Pulse: 111 103 115 Resp: Temp: 36.9 ??C (98.5 ??F) 36.7 ??C (98.1 ??F) TempSrc: Temporal Tympanic SpO2: 91% (!) 61% Weight: Height: 157.5 cm (5' 2 ) Labs Reviewed URINALYSIS AND REFLEX TO MICROSCOPIC AND CULTURE - Abnormal Result Value Color, ur Ngoc (*) Clarity, ur Cloudy (*) Specific gravity, ur 1.015 pH, urine 5.5 Protein, ur ql Trace Glucose, ur ql Negative Ketones, ur Negative Bilirubin, ur Negative Blood, ur Negative Urobilinogen, ur 0.2 Nitrite, ur Negative Leukocyte esterase, ur 2+ (*) Narrative: Urine pH is affected by diet, medications, systemic acid-base disturbances, and renal tubular function. pH may affect urinary stone formation. For example, urine pH below 6.0 may help reduce the tendency for calcium phosphate stones and pH greater than 6.0 may reduce the tendency for uric acid stone formation. Source: [facility] [employer].Last revised 05-27-2017 AEROBIC CULTURE AND GRAM STAIN - Abnormal Direct Specimen Exam Value: Stain: Abundant polymorphonuclear leukocytes seen. Few squamous epithelial cells seen. Abundant Fungal elements seen. Rare Mixed bacterial annia seen on gram stain. Report (*) Value: Final Report: Abundant Yeast Ines pneumonia is very rare and requires a histopathological diagnosis. The recovery of these organisms in routine culture, in most cases, only represents overgrowth of the organism secondary to antimicrobial therapy. Please contact the microbiology laboratory at [phone] if identification or susceptibility testing is clinically indicated. Organism YEAST Narrative: Testing performed by [facility] ([phone]) Specimens submitted from normally sterile body sites will have all bacterial morphotypes identified. Specimens that contain grossly mixed annia and/or are from body sites that are not normally sterile will be examined for Staphylococcus aureus, Pseudomonas aeruginosa, beta-hemolytic strep, vancomycin-resistant Enterococcus and fungus. If any of these are isolated, the organism will be reported. Current interpretive data was last revised on 2016. CBC WITH AUTO DIFFERENTIAL - Abnormal WBC 12.5 (*) RBC 2.96 (*) Hgb 9.4 (*) Hct 25.3 (*) MCV 85.5 MCH 31.8 MCHC 37.2 (*) RDW CV 11.8 RDW SD 36.5 Plt 472 (*) MPV 8.1 (*) NRBC Abs 0.00 Narrative: COMPREHENSIVE METABOLIC PANEL - Abnormal Sodium 115 (*) Potassium 4.6 CO2 24 BUN 18 Glucose 139 Creatinine 1.36 (*) Calcium 7.7 (*) Chloride 80 (*) Albumin 1.7 (*) AST 24 ALT 14 Alk phos 204 (*) Bilirubin 0.5 Protein, pl 4.1 (*) Anion Gap 11 Narrative: LACTATE, WHOLE BLOOD - Abnormal Lactic acid, bld 2.6 (*) Narrative: DIFFERENTIAL AUTO - Abnormal Neutrophil absolute 10.8 (*) Immature granulocyte absolute 0.1 Lymphocytes absolute 1.0 Monocyte absolute 0.6 Eosinophils absolute 0.0 Basophils, abs 0.0 Neutrophils 86.1 Immature granulocytes 0.5 Lymphocytes 7.9 Monocytes 5.1 Eosinophils 0.3 Basophils 0.1 Narrative: URINALYSIS, MICROSCOPIC ONLY - Abnormal WBC, ur 11-20 (*) RBC, ur 6-10 (*) Epithelial cells, squamous, ur 11-20 (*) Bacteria, ur 1+ (*) Hyaline casts, ur 1-5 Narrative: PROTIME-INR - Abnormal PT 13.3 (*) INR 1.17 Narrative: CBC WITH AUTO DIFFERENTIAL - Abnormal WBC 13.5 (*) RBC 2.81 (*) Hgb 8.9 (*) Hct 24.2 (*) MCV 86.1 MCH 31.7 MCHC 36.8 (*) RDW CV 11.8 RDW SD 37.4 Plt 479 (*) MPV 8.0 (*) NRBC Abs 0.00 Narrative: COMPREHENSIVE METABOLIC PANEL - Abnormal Sodium 122 (*) Potassium 3.8 CO2 22 BUN 17 Glucose 210 (*) Creatinine 1.32 (*) Calcium 7.4 (*) Chloride 87 (*) Albumin 1.8 (*) AST 22 ALT 12 Alk phos 172 (*) Bilirubin 0.4 Protein, pl 3.8 (*) Anion Gap 13 Narrative: RENAL FUNCTION PANEL - Abnormal Sodium 120 (*) Potassium 4.2 Chloride 86 (*) CO2 21 (*) Anion Gap 13 Glucose 154 BUN 17 Creatinine 1.26 (*) Calcium 7.3 (*) Phosphorus, pl 4.7 (*) Albumin 1.6 (*) Narrative: PHOSPHORUS - Abnormal Phosphorus, pl 4.7 (*) Narrative: MAGNESIUM - Abnormal Magnesium 2.9 (*) Narrative: DIFFERENTIAL AUTO - Abnormal Neutrophil absolute 12.3 (*) Immature granulocyte absolute 0.1 Lymphocytes absolute 0.5 (*) Monocyte absolute 0.6 Eosinophils absolute 0.0 Basophils, abs 0.0 Neutrophils 91.1 Immature granulocytes 0.4 Lymphocytes 3.7 Monocytes 4.7 Eosinophils 0.0 Basophils 0.1 Narrative: BASIC METABOLIC PANEL - Abnormal Sodium 122 (*) Potassium 3.3 Chloride 88 (*) CO2 23 BUN 17 Glucose 185 Creatinine 1.25 (*) Calcium 7.5 (*) Anion Gap 11 Narrative: BMP q 4 hours- 1st one at 10 am BASIC METABOLIC PANEL - Abnormal Sodium 124 (*) Potassium 3.3 Chloride 92 (*) CO2 22 BUN 14 Glucose 143 Creatinine 1.16 (*) Calcium 7.5 (*) Anion Gap 10 Narrative: CBC WITH AUTO DIFFERENTIAL - Abnormal WBC 13.4 (*) RBC 2.01 (*) Hgb 6.5 (*) Hct 17.9 (*) MCV 89.1 MCH 32.3 MCHC 36.3 (*) RDW CV 12.3 RDW SD 40.0 Plt 321 MPV 8.1 (*) NRBC Abs 0.00 Narrative: HEPATIC FUNCTION PANEL - Abnormal AST 17 ALT 8 Alk phos 101 Bilirubin 0.4 Bilirubin, direct <0.2 Protein, pl 4.4 (*) Albumin 2.8 (*) Narrative: PROTIME-INR - Abnormal PT 16.4 (*) INR 1.44 (*) Narrative: BASIC METABOLIC PANEL - Abnormal Sodium 126 (*) Potassium 3.6 Chloride 94 (*) CO2 22 BUN 14 Glucose 155 Creatinine 1.10 Calcium 8.2 (*) Anion Gap 10 Narrative: DIFFERENTIAL AUTO - Abnormal Neutrophil absolute 11.5 (*) Immature granulocyte absolute 0.0 Lymphocytes absolute 1.1 Monocyte absolute 0.6 Eosinophils absolute 0.0 Basophils, abs 0.0 Neutrophils 86.2 Immature granulocytes 0.4 Lymphocytes 8.4 Monocytes 4.8 Eosinophils 0.1 Basophils 0.1 Narrative: CBC WITH AUTO DIFFERENTIAL - Abnormal WBC 14.1 (*) RBC 3.27 (*) Hgb 10.4 (*) Hct 29.0 (*) MCV 88.7 MCH 31.8 MCHC 35.9 (*) RDW CV 13.0 RDW SD 42.5 Plt 174 MPV 8.4 (*) NRBC Abs 0.00 Narrative: HEPATIC FUNCTION PANEL - Abnormal AST 17 ALT 7 Alk phos 76 Bilirubin 1.2 Bilirubin, direct 0.4 (*) Protein, pl 4.7 (*) Albumin 3.5 Narrative: SODIUM LEVEL - Abnormal Sodium 122 (*) Narrative: DIFFERENTIAL AUTO - Abnormal Neutrophil absolute 12.4 (*) Immature granulocyte absolute 0.1 Lymphocytes absolute 1.0 Monocyte absolute 0.6 Eosinophils absolute 0.0 Basophils, abs 0.0 Neutrophils 88.0 Immature granulocytes 0.4 Lymphocytes 7.3 Monocytes 4.1 Eosinophils 0.1 Basophils 0.1 Narrative: BLOOD GAS, ARTERIAL - Abnormal pH, Arterial 7.08 (*) PCO2, Arterial 60 (*) PO2, Arterial 41 (*) BE, art -13 O2 Sat Art (Measured) 63 (*) HCO3 Art (Calculated) 17 (*) Narrative: BLOOD CULTURE Report Value: Final Report: No growth Narrative: 1. For questions, call the Microbiology Laboratory at [phone]. Organism identification and/or antimicrobial susceptibility testing, if reported, [place] [address] 2. Blood cultures are incubated for 5 days, and cultures are monitored continuously. The first negative report is issued within 24 hours of receipt in the laboratory. Positive cultures are called in accordance with the critical call policy. 3. The most important factor for detection microbes in the setting of blood stream infection is thevolume of blood submitted for culture. For pediatric patients, the recommended volume of blood to collect is 1 mL of blood per year of patient age, up to 15 mL, per blood culture set. For adult patients, 20 mL of blood, divided equally between an aerobic and anaerobic blood culture bottle, is recommended for each blood culture set. Failure to collect an optimal blood volume can result in false negative blood cultures. 4. Bloodstream infection is more likely to be catheter related if the time to culture positivity ofa blood culture drawn through the catheter is at least 2.5 hours faster than the time to positivityof a percutaneous culture of the same volume drawn at the same time, using the same media type. 5. For blood cultures with gram-positive cocci, a rapid molecular test for organism identification may be performed using the [place] Nanosphere Gram Positive Blood Culture Assay. The Nanosphere assay detects microbial DNA in positive blood culture broth via hybridization of target DNA to capture oligonucleotides on a microarray. This assay has been cleared by the [place] Food and Drug Administration and its performance characteristics have been verified by the [facility]. Interpretive data was last revised on September 23, 2017. BLOOD CULTURE Report Value: Final Report: No growth Narrative: From a different site than #1. 1. For questions, call the Microbiology Laboratory at [phone]. Organism identification and/or antimicrobial susceptibility testing, if reported, [place] [address] 2. Blood cultures are incubated for 5 days, and cultures are monitored continuously. The first negative report is issued within 24 hours of receipt in the laboratory. Positive cultures are called in accordance with the critical call policy. 3. The most important factor for detection microbes in the setting of blood stream infection is thevolume of blood submitted for culture. For pediatric patients, the recommended volume of blood to collect is 1 mL of blood per year of patient age, up to 15 mL, per blood culture set. For adult patients, 20 mL of blood, divided equally between an aerobic and anaerobic blood culture bottle, is recommended for each blood culture set. Failure to collect an optimal blood volume can result in false negative blood cultures. 4. Bloodstream infection is more likely to be catheter related if the time to culture positivity ofa blood culture drawn through the catheter is at least 2.5 hours faster than the time to positivityof a percutaneous culture of the same volume drawn at the same time, using the same media type. 5. For blood cultures with gram-positive cocci, a rapid molecular test for organism identification may be performed using the [place] Nanosphere Gram Positive Blood Culture Assay. The Nanosphere assay detects microbial DNA in positive blood culture broth via hybridization of target DNA to capture oligonucleotides on a microarray. This assay has been cleared by the [place] Food and Drug Administration and its performance characteristics have been verified by the [facility]. Interpretive data was last revised on September 23, 2017. MRSA CULTURE Report Value: Final Report: Negative Narrative: Specimen received on an ESwab. MRSA CULTURE Report Value: Final Report: Negative Narrative: URINE CULTURE Report Value: Final Report: Insignificant growth based on current clinical standards. Narrative: Urine culture reflexed based upon urinalysis results. Testing performed by [facility] ([phone]) AEROBIC CULTURE AND GRAM STAIN Direct Specimen Exam Value: Stain: Abundant squamous epithelial cells seen indicating excessive oropharyngeal contamination. Culture will not be processed further. Please submit another specimen. Results phoned to and read back by: Shanda Orr RN [facility] [phone] on 10/13/2017 10:40:11by: Dean Mak MLT. Report Value: Final Report: This is the final report. Narrative: Testing performed by [facility] ([phone]) Specimens submitted from normally sterile body sites will have all bacterial morphotypes identified. Specimens that contain grossly mixed annia and/or are from body sites that are not normally sterile will be examined for Staphylococcus aureus, Pseudomonas aeruginosa, beta-hemolytic strep, vancomycin-resistant Enterococcus and fungus. If any of these are isolated, the organism will be reported. Current interpretive data was last revised on 2016. LIPASE Lipase 15 Narrative: TROPONIN T Troponin T <0.01 Narrative: EGFR GFR 44 Narrative: MAGNESIUM Magnesium 1.7 Narrative: EGFR GFR 48 Narrative: SODIUM, URINE, RANDOM Sodium, ur <20 Narrative: No normal range EGFR GFR 45 Narrative: EGFR GFR 48 Narrative: LACTATE, WHOLE BLOOD Lactic acid, bld 1.2 Narrative: PHOSPHORUS Phosphorus, pl 3.4 Narrative: POTASSIUM LEVEL Potassium 3.3 Narrative: MAGNESIUM Magnesium 2.2 Narrative: LACTATE, WHOLE BLOOD Lactic acid, bld 1.1 Narrative: EGFR GFR 53 Narrative: EGFR GFR 56 Narrative: TYPE AND SCREEN ABO/RH ABO/RH. O Positive Narrative: Has the patient had Daratumumab (Darzalex) in the past 6 months?->Unknown ANTIBODY SCREEN Jazzy, indirect, Gel Interpretation Negative ABSC Narrative: Has the patient had Daratumumab (Darzalex) in the past 6 months?->Unknown CROSSMATCH Crossmatch Compatible UNIT NUMBER FOR CROSSMATCH [id number] Crossmatch Compatible UNIT NUMBER FOR CROSSMATCH [id number] Narrative: LEGIONELLA ANTIGEN, URINE Legionella Urine Antigen Negative Narrative: STREP PNEUMONIAE AG, URINE Strep pneumoniae Antigen Negative Narrative: PHOSPHORUS Phosphorus, pl 3.0 Narrative: POTASSIUM LEVEL Potassium 3.4 Narrative: MAGNESIUM Magnesium 2.1 Narrative: PREPARE RBC Units requested 2 Units requested Ready Unit Number [id number] Product code [id number] Blood Expiration Date Product Blood Type (for scanning) 5100 Product Blood Type OPOS Dispense Status DISPENSED Unit Number [id number] Product code [id number] Blood Expiration Date [id number] Product Blood Type (for scanning) 5100 Product Blood Type OPOS Dispense Status DISPENSED Narrative: XR Chest 1 View Final Result 1. ENDOTRACHEAL TUBE TIP 3.5 CM ABOVE THE RITU. 2. IMPROVED AERATION RIGHT HEMITHORAX. Electronically signed by: Elliot Perkins M.D XR Chest 1 View Final Result 1. INCREASING OPACITY RIGHT LOWER RIGHT MIDLUNG FIELD EXTENDING THE RIGHT UPPER LUNG FIELD, WHICH MAY BE DUE TO PLEURAL EFFUSION ALONG WITH ATELECTASIS/CONSOLIDATION. 2. OPACIFICATION LEFT HEMITHORAX, PREVIOUSLY. Electronically signed by: Elliot Perkins M.D XR Chest 1 View Final Result 1. Almost complete opacification of the left hemithorax. 2. Stable appearing right arm PICC. Electronically signed by: Ray Roberts M.D. XR Chest 1 View Final Result 1. Placement of right-sided PICC with tip in mid to lower one third of superior vena cava. 2. Interval development of extensive left lung infiltrate with retrocardiac left lower lobe consolidation. Aspiration? 3. No other acute findings. Results called to ALEJANDRO Wright in ICU on 10/12/2017 at 1924 hours. Critical result message with acuity significant has been communicated to ordering provider via the [place] Critical Result tracking system. Status of follow up communication is complete. Electronically signed by: Emery Mary Jr., M.D. CT Abdomen Pelvis W Contrast Final Result 1. EXTENSIVE ASCITES IN THE ABDOMEN AND PELVIS. 2. SMALL HYPODENSE FOCUS RIGHT HEPATIC LOBE, TOO SMALL TO CHARACTERIZE, MOST COMMONLY REPRESENTING CYST. 3. SMALL AND VERY SMALL HYPODENSE FOCI WITHIN THE KIDNEYS, TOO SMALL TO CHARACTERIZE, MOST COMMONLY REPRESENTING CYST. 4. FINDINGS SUPPORTIVE OF COLITIS. COLITIS MAY BE INFECTIOUS, INFLAMMATORY, OR ISCHEMIC. 5. 2 SMALL INDETERMINATE NODULES RIGHT LUNG BASE. FOLLOW-UP PER [facility] CRITERIA RECOMMENDED. Electronically signed by: Elliot Perkins M.D XR Chest 1 Vw Portable Final Result NO ACUTE PULMONARY DISEASE. Electronically signed by: Elliot Perkins M.D Critical Care Performed by: MARISOL WILDER Authorized by: MARISOL WILDER Critical care provider statement: Critical care time (minutes): 120 Critical care time was exclusive of: Separately billable procedures and treating other patients Critical care was necessary to treat or prevent imminent or life-threatening deterioration of the following conditions: Hypotension and hyponatremia. Critical care was time spent personally by me on the following activities: Development of treatmentplan with patient or surrogate, discussions with consultants, evaluation of patient's response to treatment, examination of patient, re-evaluation of patient's condition, interpretation of cardiac output measurements, ordering and review of laboratory studies, ordering and review of radiographic studies, pulse oximetry and review of old charts I assumed direction of critical care for this patient from another provider in my specialty: no This note was prepared by Lalo Carter, acting as a Scribe for Marisol Wilder MD. I electronically signed this note at 10:34 AM on 10/22/2017. I, Marisol Wilder MD, have personally performed the services described in the documentation, reviewed the documentation, as recorded by the scribe in my presence, and it accurately and completely records my words and actions. Clinical Impression: 1. Hyponatremia 2. Intractable vomiting with nausea, unspecified vomiting type 3. HERNANDEZ (nonalcoholic steatohepatitis) 4. Dehydration 5. Colitis Disposition: Admitted. Marisol Wilder MD 10/22/17 1035 documented in this encounter Plan of Treatment Not on file documented as of this encounter Procedures Procedure Name Priority Date/Time Associated Diagnosis Comments XR CHEST 1 VIEW STAT 10/14/2017 7:03 PM CDT XR CHEST 1 VIEW Critical/Life-T hreatening 10/14/2017 6:09 PM CDT BLOOD GAS, ARTERIAL STAT 10/14/2017 5 :50 PM CDT AEROBIC CULTURE AND GRAM STAIN Routine 10/14/2017 4:18 PM CDT DIFFERENTIAL AUTO Routine 10/14/2017 5:5 6 AM CDT CBC WITH AUTO DIFFERENTIAL Routine 10/14/2017 5:56 AM CDT SODIUM LEVEL Routine 10/14/2017 5:56 AM CDT POTASSIUM LEVEL Routine 10/14/2017 5:56 AM CDT PHOSPHORUS Routine 10/14/2017 5:56 AM CDT MAGNESIUM Routine 10/14/2017 5:56 AM CDT HEPATIC FUNCTION PANEL Routine 10/14/2017 5:56 AM CDT DISCHARGE LABORATORY CUMULATIVE REPORT 10/14/2017 12:00 AM CDT CHEST PHYSIO THERAPY Routine 10/13/2017 4:33 PM CDT TRANSFUSE RED BLOOD CELLS Timed 10/13/2017 2:22 PM CDT TRANSFUSE RED BLOOD CELLS Timed 10/13/2017 11:29 AM CDT PREPARE RBC Routine 10/13/2017 10:53 AM CDT ABO/RH Timed 10/13/2017 9:05 AM CDT CROSSMATCH Timed 10/13/2017 9:05 AM CDT ANTIBODY SCREEN Timed 10/13/2017 9:05 AM CDT TYPE AND SCREEN Timed 10/13/2017 9:05 AM CDT XR CHEST 1 VIEW IP Routine 10/13/2017 8:29 AM CDT AEROBIC CULTURE AND GRAM STAIN Routine 10/13/2017 7:40 AM CDT DIFFERENTIAL AUTO Routine 10/13/2017 5:1 7 AM CDT CBC WITH AUTO DIFFERENTIAL Routine 10/13/2017 5:17 AM CDT LACTATE, WHOLE BLOOD Routine 10/13/2017 5:17 AM CDT PROTIME-INR Routine 10/13/2017 5:17 AM CDT POTASSIUM LEVEL Routine 10/13/2017 5:17 AM CDT PHOSPHORUS Routine 10/13/2017 5:17 AM CDT MAGNESIUM Routine 10/13/2017 5:17 AM CDT HEPATIC FUNCTION PANEL Routine 10/13/2017 5:17 AM CDT EGFR Timed 10/12/2017 9:44 PM CDT BASIC METABOLIC PANEL Timed 10/12/2017 9:44 PM CDT XR CHEST 1 VIEW ED Urgent/IP Urgent 10/12/2017 6:57 PM CDT LACTATE, WHOLE BLOOD STAT 10/12/2017 5:04 PM CDT EGFR Timed 10/12/2017 4:38 PM CDT BASIC METABOLIC PANEL Timed 10/12/2017 4:38 PM CDT EGFR Timed 10/12/2017 10:01 AM CDT BASIC METABOLIC PANEL Timed 10/12/2017 10:01 AM CDT EGFR Routine 10/12/2017 5:49 AM CDT DIFFERENTIAL AUTO Routine 10/12/2017 5:4 9 AM CDT CBC WITH AUTO DIFFERENTIAL Routine 10/12/2017 5:49 AM CDT PHOSPHORUS Routine 10/12/2017 5:49 AM CDT MAGNESIUM Routine 10/12/2017 5:49 AM CDT COMPREHENSIVE METABOLIC PANEL Routine 10/12/2017 5:49 AM CDT STREP PNEUMONIAE AG, URINE Routine 10/12/2017 4:01 AM CDT LEGIONELLA ANTIGEN, URINE Routine 10/12/2017 4:01 AM CDT EGFR STAT 10/12/2017 1:29 AM CDT MAGNESIUM STAT 10/12/2017 1:29 AM CDT RENAL FUNCTION PANEL STAT 10/12/2017 1:29 AM CDT INFECTION PREVENTION MRSA ONLY (STAPHYLOCOCCUS AUREUS) CULTURE STAT 10/11/2017 11:27 PM CDT PROTIME-INR STAT 10/11/2017 9:48 PM CDT FL CRITICAL CARE ILL/INJURED PATIENT ADDL 30 MIN Routine 10/11/2017 8:21 PM CDT [place] CRITICAL CARE ILL/INJURED PATIENT ADDL 30 MIN Routine 10/11/2017 8:21 PM CDT [place] CRITICAL CARE ILL/INJURED PATIENT INIT 30-74 MIN Routine 10/11/2017 8:[address] ABDOMEN PELVIS W CONTRAST ED 10/11/2017 6:21 PM CDT INFECTION PREVENTION MRSA ONLY (STAPHYLOCOCCUS AUREUS) CULTURE STAT 10/11/2017 5:28 PM CDT URINALYSIS AND REFLEX TO MICROSCOPIC AND CULTURE Routine 10/11/2017 5:22 PM CDT SODIUM, URINE, RANDOM Add-On 10/11/2017 5:22 PM CDT URINALYSIS, MICROSCOPIC ONLY Routine 10/11/2017 5:22 PM CDT URINE CULTURE Routine 10/11/2017 5:22 PM CDT BLOOD CULTURE Routine 10/11/2017 5:13 PM CDT BLOOD CULTURE Routine 10/11/2017 5:07 PM CDT XR CHEST 1 VIEW ED 10/11/2017 4:46 PM CDT EGFR STAT 10/11/2017 4:16 PM CDT DIFFERENTIAL AUTO STAT 10/11/2017 4:1 6 PM CDT CBC WITH AUTO DIFFERENTIAL STAT 10/11/2017 4:16 PM CDT LACTATE, WHOLE BLOOD Routine 10/11/2017 4:16 PM CDT TROPONIN T Routine 10/11/2017 4:16 PM CDT LIPASE STAT 10/11/2017 4:16 PM CDT COMPREHENSIVE METABOLIC PANEL STAT 10/11/2017 4:16 PM CDT ECG 12-LEAD STAT 10/11/2017 4:09 PM CDT documented in this encounter Results * XR Chest 1 View (10/14/2017 7:03 PM CDT) Anatomical Region Laterality Modality Body, Chest N/A Computed Radiogr aphy 10/14/2017 8:16 PM CDT Impressions 10/14/2017 8:19 PM CDT 1. ??ENDOTRACHEAL TUBE TIP 3.5 CM ABOVE THE RITU. 2. ??IMPROVED AERATION RIGHT HEMITHORAX. Electronically signed by: Itz Espinosa 10/14/2017 8:19 PM CDT XR CHEST 1 VIEW HISTORY: Placement OF ETT. TECHNIQUE: Portable AP view obtained semiupright at 1852. COMPARISON: Earlier study at 1804 this same day. FINDINGS: Endotracheal tube is now positioned the tip is 3.5 cm above the ritu. ??No pneumothorax is seen. ??Opacity patient left hemithorax, as previously. ??Improved aeration right hemithorax. Diffuse opacity right hemithorax, which is partly due to infiltrates. Possible right pleural effusion. ??Postsurgical change in the abdomen. Procedure Note Elliot Perkins MD - 10/14/2017 XR CHEST 1 VIEW HISTORY: Placement OF ETT. TECHNIQUE: Portable AP view obtained semiupright at 1852. COMPARISON: Earlier study at 1804 this same day. FINDINGS: Endotracheal tube is now positioned the tip is 3.5 cm above the ritu. No pneumothorax is seen. Opacity patient left hemithorax, as previously. Improved aeration right hemithorax. Diffuse opacity right hemithorax, which is partly due to infiltrates. Possible right pleural effusion. Postsurgical change in the abdomen. IMPRESSION: 1. ENDOTRACHEAL TUBE TIP 3.5 CM ABOVE THE RITU. 2. IMPROVED AERATION RIGHT HEMITHORAX. Electronically signed by: Elliot Perkins M.D Amy Olvera MD IMG XR PROCEDURES Final Res ult * XR Chest 1 View (10/14/2017 6:09 PM CDT) Anatomical Region Laterality Modality Body, Chest N/A Computed Radiogr aphy 10/14/2017 6:12 PM CDT Impressions 10/14/2017 6:14 PM CDT 1. ??INCREASING OPACITY RIGHT LOWER RIGHT MIDLUNG FIELD EXTENDING THE RIGHT UPPER LUNG FIELD, WHICH MAY BE DUE TO PLEURAL EFFUSION ALONG WITH ATELECTASIS/CONSOLIDATION. 2. ??OPACIFICATION LEFT HEMITHORAX, PREVIOUSLY. Electronically signed by: Elliot Perkins M.D [facility] 10/14/2017 6:14 PM CDT XR CHEST 1 VIEW HISTORY: SHORTNESS OF BREATH PRODUCED BY EXERTION OR STRESS. TECHNIQUE: Portable AP view. COMPARISON: 10/13/2017. FINDINGS: Essentially complete opacities left hemithorax, as previously. ??No noted is increasing opacity right lower right midlung field extending the right upper lung field. ??Right arm PICC line remains in position with the tip in the superior vena cava. ??Left heart border is obscured. Procedure Note Elliot Perkins MD - 10/14/2017 XR CHEST 1 VIEW HISTORY: SHORTNESS OF BREATH PRODUCED BY EXERTION OR STRESS. TECHNIQUE: Portable AP view. COMPARISON: 10/13/2017. FINDINGS: Essentially complete opacities left hemithorax, as previously. No noted is increasing opacity right lower right midlung field extending the right upper lung field. Right arm PICC line remains in position with the tip in the superior vena cava. Left heart border is obscured. IMPRESSION: 1. INCREASING OPACITY RIGHT LOWER RIGHT MIDLUNG FIELD EXTENDING THE RIGHT UPPER LUNG FIELD, WHICH MAY BE DUE TO PLEURAL EFFUSION ALONG WITH ATELECTASIS/CONSOLIDATION. 2. OPACIFICATION LEFT HEMITHORAX, PREVIOUSLY. Electronically signed by: Elliot Perkins M.D us Amy Olvera MD IMG XR PROCEDURES Final Res ult * (ABNORMAL) Blood gas, arterial (10/14/2017 5:50 PM CDT) pH, Art 7.08(C) 7.35 - 7.45 [facility] ([place]) Comment: Critical result called to and read back by gurvinder vasques (icu) on 10/14/2017 18:03:15 CDT to irena allen. Critical result called to and read back by gurvinder vasques (icu) on 10/14/2017 18:03:40 CDT to irena allen. Results okay to engine turner, results coorelate with patient diagnosis PCO2, Arterial 60(H) 35 - 45 mmHg [facility] ([place]) Comment: Critical result called to and read back by gurvinder vasques (icu) on 10/14/2017 18:03:40 CDT to irean allen. Results okay to engine turner, results coorelate with patient diagnosis PO2, Arterial 41(C) 83 - 108 mmHg [facility] ([place]) Comment: Critical result called to and read back by gurvinder vasques (icu) on 10/14/2017 18:03:15 CDT to irena allen. Critical result called to and read back by gurvinder vasques (icu) on 10/14/2017 18:03:40 CDT to irena allen. Results okay to engine turner, results coorelate with patient diagnosis BE, art -13 mmol/L [facility] ([place]) Comment: Critical result called to and read back by gurvinder vasques (icu) on 10/14/2017 18:03:40 CDT to irena allen. Results okay to engine turner, results coorelate with patient diagnosis Interpretive Data No Reference Range Established Current Interpretive Data was last revised on 2017 O2 Sat Art (Measured) 63(L) 90 - 95 % [facility] ([place]) Comment: Critical result called to and read back by gurvinder vasques (icu) on 10/14/2017 18:03:40 CDT to irena allen. Results okay to engine turner, results coorelate with patient diagnosis HCO3 Art (Calculated) 17(L) 20 - 30 mmol/L [facility] ([place]) Comment: Critical result called to and read back by gurvinder vasques (icu) on 10/14/2017 18:03:40 CDT to irena allen. Results okay to engine turner, results coorelate with patient diagnosis Blood specimen (specimen) 10/14/2017 5:50 PM CDT 10/14/2017 5:55 PM CDT Narrative [facility] ([place]) - 10/14/2017 6:04 PM CDT Amy Olvera MD LAB BLOOD ORDERABLES Final Result [facility] ([place]) 1 [facility] Department [place] [address] * (ABNORMAL) Aerobic culture and gram stain Sputum (10/14/2017 4:18 PM CDT) Direct Specimen Exam Stain: Abundant polymorphonuclear leukocytes seen. Few squamous epithelial cells seen. Abundant Fungal elements seen. Rare Mixed bacterial annia seen on gram stain. [facility] SKEL[facility] ([place]) Comment:Testing performed by : [facility], [address] [place] [address] Report Final Report: Abundant Yeast Ines pneumonia is very rare and requires a histopathological diagnosis. ??The recovery of these organisms in routine culture, in most cases, only represents overgrowth of the organism secondary to antimicrobial therapy. Please contact the microbiology laboratory at [phone] if identification or susceptibility testing is clinically indicated. (.) [facility] ([place]) Comment:Testing performed by : [facility], [address] [place]., [address] Organism YEAST [facility] ([place]) Sputum 10/14/2017 4:18 PM CDT 10/14/2017 7:41 PM CDT Narrative [facility] SKEL[facility] ([place]) - 10/17/2017 10:11 AM CDT Testing performed by [facility] Microbiology Laboratory ([phone]) Specimens submitted from normally sterile body sites will have all bacterial morphotypes identified. ??Specimens that contain grossly mixed nania and/or are from body sites that are not normally sterile will be examined for Staphylococcus aureus, Pseudomonas aeruginosa, beta-hemolytic strep, vancomycin-resistant Enterococcus and fungus. ??If any of these are isolated, the organism will be reported. Current interpretive data was last revised on 2016. us Amy Olvera MD LAB MICROBIOLOGY - GENERAL ORDERABLES Final Result [facility] ([place]) 1 [facility] Department [place] [address] * (ABNORMAL) Differential, auto (10/14/2017 5:56 AM CDT) Neutrophil abs 12.4(H) 1.7 - 6.5 K/cumm [facility] ([place]) Imm gran abs 0.1 0.0 - 0.1 K/cumm [facility] ([place]) Lymphocyte abs 1.0 0.8 - 3.3 K/cumm [facility] ([place]) Monocyte abs 0.6 0.2 - 0.8 K/cumm [facility] ([place]) Eosinophil abs 0.0 0.0 - 0.5 K/cumm [facility] ([place]) Basophil abs 0.0 0.0 - 0.1 K/cumm [facility] ([place]) Neutrophil pct 88.0 % [facility] ([place]) Comment: Interpretive Data Percent cell count reference ranges are not reported, since discordance with absolute values may lead to misinterpretation of CBC data. Current Interpretive Data was last revised on 2017. Imm gran pct 0.4 % [facility] ([place]) Comment: Interpretive Data Percent cell count reference ranges are not reported, since discordance with absolute values may lead to misinterpretation of CBC data. Current Interpretive Data was last revised on 2017. Lymphocyte pct 7.3 % [facility] ([place]) Comment: Interpretive Data Percent cell count reference ranges are not reported, since discordance with absolute values may lead to misinterpretation of CBC data. Current Interpretive Data was last revised on 2017. Monocyte pct 4.1 % [facility] ([place]) Comment: Interpretive Data Percent cell count reference ranges are not reported, since discordance with absolute values may lead to misinterpretation of CBC data. Current Interpretive Data was last revised on 2017. Eosinophil pct 0.1 % [facility] ([place]) Comment: Interpretive Data Percent cell count reference ranges are not reported, since discordance with absolute values may lead to misinterpretation of CBC data. Current Interpretive Data was last revised on 2017. Basophil pct 0.1 % [facility] ([place]) Comment: Interpretive Data Percent cell count reference ranges are not reported, since discordance with absolute values may lead to misinterpretation of CBC data. Current Interpretive Data was last revised on 2017. Blood specimen (specimen) 10/14/2017 5:56 AM CDT 10/14/2017 5:59 AM CDT Narrative [facility] ([place]) - 10/14/2017 6:52 AM CDT us Amy Olvera MD LAB BLOOD ORDERABLES Final Result TREMAINE AN) 1 [facility] Department [place] [address] * (ABNORMAL) Sodium level (10/14/2017 5:56 AM CDT) Sodium 122(L) 135 - 145 mmol/L [facility] ([place]) Blood specimen (specimen) 10/14/2017 5:56 AM CDT 10/14/2017 5:59 AM CDT Narrative [facility] ([place]) - 10/14/2017 6:43 AM CDT Amy Ferguson MD LAB BLOOD ORDERABLES Fin al Result Performing Organization Address City/[facility]/ZIP Co de Phone Number [facility] ([place]) [address] [place] [address] [place] [address] * (ABNORMAL) Hepatic function panel (10/14/2017 5:56 AM CDT) AST 17 10 - 45 Units/L [facility] ([place]) ALT 7 7 - 45 Units/L [facility] ([place]) Alk phos 76 40 - 130 Units/L [facility] ([place]) Bilirubin, total 1.2 0.1 - 1.2 mg/dL [facility] ([place]) Bilirubin, direct 0.4(H) 0.1 - 0.3 mg/dL [facility] ([place]) Protein, pl 4.7(L) 6.5 - 8.5 g/dL [facility] ([place]) Albumin 3.5 3.5 - 5.0 g/dL [facility] ([place]) Blood specimen (specimen) 10/14/2017 5:56 AM CDT 10/14/2017 5:59 AM CDT Narrative [facility] ([place]) - 10/14/2017 6:43 AM CDT us Amy Olvera MD LAB BLOOD ORDERABLES Final Result [facility] ([place]) 1 [facility] [place] [address] * (ABNORMAL) CBC with auto differential (10/14/2017 5:56 AM CDT) WBC 14.1(H) 3.8 - 9.9 K/cumm [facility] ([place]) RBC 3.27(L) 3.90 - 5.20 M/cumm [facility] ([place]) Hgb 10.4(L) 11.9 - 15.5 g/dL [facility] ([place]) Hct 29.0(L) 35.6 - 45.5 % [facility] ([place]) MCV 88.7 81.3 - 96.4 fL [facility] ([place]) MCH 31.8 27.1 - 33.3 pg [facility] ([place]) MCHC 35.9(H) 32.3 - 35.7 g/dL [facility] ([place]) RDW CV 13.0 11.1 - 14.9 % [facility] ([place]) RDW SD 42.5 35.7 - 48.1 fL [facility] ([place]) Plt 174 150 - 400 K/cumm [facility] ([place]) MPV 8.4(L) 9.1 - 12.3 fL [facility] ([place]) NRBC abs 0.00 0.00 - 0.01 K/cumm [facility] ([place]) Blood specimen (specimen) 10/14/2017 5:56 AM CDT 10/14/2017 5:59 AM CDT Narrative [facility] ([place]) - 10/14/2017 6:52 AM CDT us Amy Olvera MD LAB BLOOD ORDERABLES Final Result [facility] ([place]) 1 [facility] Department [place] [address] * Magnesium (10/14/2017 5:56 AM CDT) Magnesium 2.1 1.6 - 2.4 mg/dL [facility] ([place]) Blood specimen (specimen) 10/14/2017 5:56 AM CDT 10/14/2017 5:59 AM CDT Narrative [facility] ([place]) - 10/14/2017 6:43 AM CDT us Liang Jacobsen MD LAB BLOOD ORDERABLES Final Re sult Performing Organization Address [facility] Co de Phone Number [facility] ([place]) [address] [facility] [place] [address] * Potassium (10/14/2017 5:56 AM CDT) Potassium, pl 3.4 3.3 - 4.9 mmol/L [facility] ([place]) Blood specimen (specimen) 10/14/2017 5:56 AM CDT 10/14/2017 5:59 AM CDT Narrative [facility] ([place]) - 10/14/2017 6:43 AM CDT Liang Jacobsen MD LAB BLOOD ORDERABLES Final Re sult Performing Organization Address [facility] Co de Phone Number [facility]EL[facility] ([place]) [address] [facility] [place] [address] * Phosphorus (10/14/2017 5:56 AM CDT) Phosphorus, pl 3.0 2.3 - 4.5 mg/dL [facility] ([place]) Blood specimen (specimen) 10/14/2017 5:56 AM CDT 10/14/2017 5:59 AM CDT Narrative [facility] ([place]) - 10/14/2017 6:43 AM CDT Liang Jacobsen MD LAB BLOOD ORDERABLES Final Re sult Performing Organization Address City/[facility]/ZIP Co de Phone Number [facility] ([place]) [address] [facility] [place] [address] * DISCHARGE LABORATORY CUMULATIVE REPORT (10/14/2017 12:00 AM CDT) Narrative 10/14/2017 12:00 AM CDT Ordered by an unspecified provider. Historical Provider LAB BLOOD ORDERABLES Jojo l Result * Transfuse RBC (10/13/2017 4:50 PM CDT) Blood specimen (specimen) Amy Olvera MD BLOOD TRANSFUSION ORDERABLE S Final Result [facility] ([place]) [address] [facility] [place] [address] * Transfuse RBC: 2 Units (10/13/2017 4:50 PM CDT) Blood specimen (specimen) Amy Olvera MD BLOOD TRANSFUSION ORDERABLE S Final Result * Transfuse RBC (10/13/2017 2:20 PM CDT) Blood specimen (specimen) Amy Olvera MD BLOOD TRANSFUSION ORDERABLE S Final Result Performing Organization Address City/State/[facility] Co de Phone Number [facility]EL[facility] ([place]) 1 [place] [address] * Prepare RBC: 2 Units (10/13/2017 10:53 AM CDT) Units requested 2 [facility] ([place]) Units requested Ready [facility] ([place]) Unit Number [id number] [facility] ([facility]) Product code [id number] [facility] ([place]) Blood Expiration Date [facility] ([place]) Product Blood Type (for scanning) 5100 [facility] ([place]) Product Blood Type OPOS [facility]) Dispense Status DISPENSED [facility] ([place]) Unit Number [id number] [facility] ([place]) Product code [id number] [facility] ([place]) Blood Expiration Date [facility] ([place]) Product Blood Type (for scanning) 5100 [facility] ([place]) Product Blood Type OPOS [facility] ([place]) Dispense Status DISPENSED [facility] ([place]) Blood specimen (specimen) 10/13/2017 10:53 AM CDT 10/13/2017 10:53 AM CDT Narrative [facility] ([place]) - 10/13/2017 2:17 PM CDT Amy Olvera MD BLOOD BANK PRODUCT ORDERABL ES Final Result Performing Organization Address [facility] Co de Phone Number [facility] ([place]) [address] [place] [address] [place] [address] * Crossmatch (10/13/2017 9:05 AM CDT) Crossmatch Compatible [facility] ([place]) Unit number for crossmatch [id number] [facility] ([place]) Crossmatch Compatible [facility] ([place]) Unit number for crossmatch [id number] [facility] ([place]) Blood specimen (specimen) 10/13/2017 9:05 AM CDT 10/13/2017 9:09 AM CDT Narrative [facility] ([place]) - 10/13/2017 10:54 AM CDT Amy Ferguson MD LAB BLOOD BANK TEST ORDE RABLES Final Result Performing Organization Address [facility] Co de Phone Number [facility] ([place]) [address] [place] [address] [place] [address] * Antibody screen (10/13/2017 9:05 AM CDT) Jazzy, indirect, Gel Interpretation Negative ABSC [facility] ([place]) Blood specimen (specimen) 10/13/2017 9:05 AM CDT 10/13/2017 9:09 AM CDT Narrative [facility] ([place]) - 10/13/2017 10:53 AM CDT Has the patient had Daratumumab (Darzalex) in the past 6 months?->Unknown Amy Olvera MD LAB BLOOD BANK TEST ORDERAB LES Final Result Performing Organization Address City/[facility]/ZIP Co de Phone Number [facility] ([place]) 1 [facility] Department [place] [address] * ABO/Rh (10/13/2017 9:05 AM CDT) ABO/Rh O Positive [facility] ([place]) Blood specimen (specimen) 10/13/2017 9:05 AM CDT 10/13/2017 9:09 AM CDT Narrative [facility] ([place]) - 10/13/2017 10:53 AM CDT Has the patient had Daratumumab (Darzalex) in the past 6 months?->Unknown Amy Olvera MD LAB BLOOD BANK TEST ORDERAB LES Final Result [facility] ([place]) 1 [facility] [place] [address] * XR Chest 1 View (10/13/2017 8:29 AM CDT) Anatomical Region Laterality Modality Body, Chest N/A Computed Radiogr aphy 10/13/2017 8:33 AM CDT Impressions 10/13/2017 8:34 AM CDT 1. ??Almost complete opacification of the left hemithorax. 2. ??Stable appearing right arm PICC. Electronically signed by: Ray Roberts M.D. Narrative 10/13/2017 8:34 AM CDT EXAM: Chest; AP portable at 0810 HISTORY: follow up infiltrates. COMPARISON: None FINDINGS: Almost complete opacification of the left hemithorax has developed. The left heart border silhouetted. ??A right arm PICC is stable in position. Procedure Note Ray Roberts MD - 10/13/2017 EXAM: Chest; AP portable at 0810 HISTORY: follow up infiltrates. COMPARISON: None FINDINGS: Almost complete opacification of the left hemithorax has developed. The left heart border silhouetted. A right arm PICC is stable in position. IMPRESSION: 1. Almost complete opacification of the left hemithorax. 2. Stable appearing right arm PICC. Electronically signed by: Ray Roberts M.D. Amy Olvera MD IMG XR PROCEDURES Final Res ult * Aerobic culture and gram stain Sputum (10/13/2017 7:40 AM CDT) Direct Specimen Exam Stain: Abundant squamous epithelial cells seen indicating excessive oropharyngeal contamination. ??Culture will not be processed further. ??Please submit another specimen. Results phoned to and read back by: Shanda Orr RN [facility] [phone] on 10/13/2017 10:40:11 by: Dean Mak MLT. [facility] ([place]) Comment:Testing performed by : [facility], [address] [place] [address], [id number] Report Final Report: This is the final report. [facility] ([place]) Comment:Testing performed by : [facility], [address] [place] [address]., [id number] Sputum 10/13/2017 7:40 AM CDT 10/13/2017 9:34 AM CDT Narrative [facility] SKEL[facility] ([place]) - 10/14/2017 9:12 AM CDT Testing performed by [facility] Microbiology Laboratory ([phone]) Specimens submitted from normally sterile body sites will have all bacterial morphotypes identified. ??Specimens that contain grossly mixed annia and/or are from body sites that are not normally sterile will be examined for Staphylococcus aureus, Pseudomonas aeruginosa, beta-hemolytic strep, vancomycin-resistant Enterococcus and fungus. ??If any of these are isolated, the organism will be reported. Current interpretive data was last revised on 2016. Amy Olvera MD LAB MICROBIOLOGY - GENERAL ORDERABLES Final Result [facility] ([place]) 1 [facility] Department [place] [address] * (ABNORMAL) Differential, auto (10/13/2017 5:17 AM CDT) Neutrophil abs 11.5(H) 1.7 - 6.5 K/cumm [facility] ([place]) Imm gran abs 0.0 0.0 - 0.1 K/cumm [facility] ([place]) Lymphocyte abs 1.1 0.8 - 3.3 K/cumm [facility] ([place]) Monocyte abs 0.6 0.2 - 0.8 K/cumm [facility] ([place]) Eosinophil abs 0.0 0.0 - 0.5 K/cumm [facility] ([place]) Basophil abs 0.0 0.0 - 0.1 K/cumm [facility] ([place]) Neutrophil pct 86.2 % [facility] ([place]) Comment: Interpretive Data Percent cell count reference ranges are not reported, since discordance with absolute values may lead to misinterpretation of CBC data. Current Interpretive Data was last revised on 2017. Imm gran pct 0.4 % [facility] ([place]) Comment: Interpretive Data Percent cell count reference ranges are not reported, since discordance with absolute values may lead to misinterpretation of CBC data. Current Interpretive Data was last revised on 2017. Lymphocyte pct 8.4 % [facility] ([place]) Comment: Interpretive Data Percent cell count reference ranges are not reported, since discordance with absolute values may lead to misinterpretation of CBC data. Current Interpretive Data was last revised on 2017. Monocyte pct 4.8 % [facility] ([place]) Comment: Interpretive Data Percent cell count reference ranges are not reported, since discordance with absolute values may lead to misinterpretation of CBC data. Current Interpretive Data was last revised on 2017. Eosinophil pct 0.1 % [facility] ([place]) Comment: Interpretive Data Percent cell count reference ranges are not reported, since discordance with absolute values may lead to misinterpretation of CBC data. Current Interpretive Data was last revised on 2017. Basophil pct 0.1 % [facility] ([place]) Comment: Interpretive Data Percent cell count reference ranges are not reported, since discordance with absolute values may lead to misinterpretation of CBC data. Current Interpretive Data was last revised on 2017. Blood specimen (specimen) 10/13/2017 5:17 AM CDT 10/13/2017 5:22 AM CDT Narrative [facility] ([place]) - 10/13/2017 6:54 AM CDT Amy Olvera MD LAB BLOOD ORDERABLES Final Result Performing Organization Address City/[facility]/ZIP Co de Phone Number [facility] ([place]) [address] [place] [address] [place] [address] * (ABNORMAL) Hepatic function panel (10/13/2017 5:17 AM CDT) AST 17 10 - 45 Units/L [facility] ([place]) ALT 8 7 - 45 Units/L [facility] ([place]) Alk phos 101 40 - 130 Units/L [facility] ([place]) Bilirubin, total 0.4 0.1 - 1.2 mg/dL [facility] ([place]) Bilirubin, direct <0.2 0.1 - 0.3 mg/dL [facility] ([place]) Protein, pl 4.4(L) 6.5 - 8.5 g/dL [facility] ([place]) Albumin 2.8(L) 3.5 - 5.0 g/dL [facility] ([place]) Blood specimen (specimen) 10/13/2017 5:17 AM CDT 10/13/2017 5:22 AM CDT Narrative [facility] ([place]) - 10/13/2017 5:44 AM CDT Amy Olvera MD LAB BLOOD ORDERABLES Final Result [facility] ([place]) [address] [place] [address] [place] [address] * (ABNORMAL) Protime-INR (10/13/2017 5:17 AM CDT) PT 16.4(H) 9.5 - 13.0 sec [facility] ([place]) INR 1.44(H) 0.90 - 1.20 [facility] ([place]) Comment: Interpretive Data Recommended ranges for Protime INR: 2.0 - 3.0 Most indications for Warfarin therapy (e.g. Treatment of DVT, PE, bioprosthetic valve replacement, prophylaxis venous thrombosis, atrial fibrillation). 2.5 - 3.5 Mechanical mitral valve or dual mechanical mitral and Aortic valve replacement. Current Interpretive Data was last revised on 2015. Blood specimen (specimen) 10/13/2017 5:17 AM CDT 10/13/2017 5:22 AM CDT Narrative [facility] ([place]) - 10/13/2017 6:41 AM CDT us Amy Olvera MD LAB BLOOD ORDERABLES Final Result [facility] ([place]) 1 [facility] Department of Laboratories [place] [id number] * (ABNORMAL) CBC with auto differential (10/13/2017 5:17 AM CDT) WBC 13.4(H) 3.8 - 9.9 K/cumm [facility] ([place]) RBC 2.01(L) 3.90 - 5.20 M/cumm [facility] ([place]) Hgb 6.5(L) 11.9 - 15.5 g/dL [facility] ([place]) Hct 17.9(L) 35.6 - 45.5 % [facility] ([place]) MCV 89.1 81.3 - 96.4 fL [facility] ([place]) MCH 32.3 27.1 - 33.3 pg [facility] ([place]) MCHC 36.3(H) 32.3 - 35.7 g/dL [facility] ([place]) RDW CV 12.3 11.1 - 14.9 % [facility] ([place]) RDW SD 40.0 35.7 - 48.1 fL [facility] ([place]) Plt 321 150 - 400 K/cumm [facility] ([place]) MPV 8.1(L) 9.1 - 12.3 fL [facility] ([place]) NRBC abs 0.00 0.00 - 0.01 K/cumm [facility] ([place]) Blood specimen (specimen) 10/13/2017 5:17 AM CDT 10/13/2017 5:22 AM CDT Narrative [facility] ([place]) - 10/13/2017 6:54 AM CDT us Amy Olvera MD LAB BLOOD ORDERABLES Final Result [facility] ([place]) 1 [facility] [place] [address] * Magnesium (10/13/2017 5:17 AM CDT) Magnesium 2.2 1.6 - 2.4 mg/dL [facility] ([place]) Blood specimen (specimen) 10/13/2017 5:17 AM CDT 10/13/2017 5:22 AM CDT Narrative [facility] ([place]) - 10/13/2017 5:44 AM CDT us Liang Jacobsen MD LAB BLOOD ORDERABLES Final Re sult Performing Organization Address [facility] Co de Phone Number [facility] ([place]) [address] [place] [address] [place] [address] * Potassium (10/13/2017 5:17 AM CDT) Potassium, pl 3.3 3.3 - 4.9 mmol/L [facility] ([place]) Blood specimen (specimen) 10/13/2017 5:17 AM CDT 10/13/2017 5:22 AM CDT Narrative [facility] ([place]) - 10/13/2017 5:44 AM CDT Liang Jacobsen MD LAB BLOOD ORDERABLES Final Re sult [facility] ([place]) 1 [facility] [place] [address] * Phosphorus (10/13/2017 5:17 AM CDT) [facility] Phosphorus, pl 3.4 2.3 - 4.5 mg/dL [facility] ([place]) Blood specimen (specimen) 10/13/2017 5:17 AM CDT 10/13/2017 5:22 AM CDT Narrative [facility] ([place]) - 10/13/2017 5:44 AM CDT Liang Jacobsen MD LAB BLOOD ORDERABLES Final Re sult [facility] ([place]) 1 [place] [address] * Lactate, whole blood (10/13/2017 5:17 AM CDT) [facility] Lactate, bld 1.1 0.5 - 2.2 mmol/L [facility] ([place]) Blood specimen (specimen) 10/13/2017 5:17 AM CDT 10/13/2017 5:22 AM CDT Narrative [facility] ([place]) - 10/13/2017 5:27 AM CDT Amy Olvera MD LAB BLOOD ORDERABLES Final Result [facility] ([place]) 1 [facility] [place] [address] * eGFR (10/12/2017 9:44 PM CDT) [facility] eGFR 56 mL/min/1.7 3 m2 [facility] ([place]) Comment: Interpretive Data Reference Interval Normal ?>/= 90 mL/min/1.73m2 Mildly decreased* ? 60 - 89 mL/min/1.73m2 Mildly to moderately decreased ?45 - 59 mL/min/1.73m2 Moderately to severely decreased ??30 - 44 mL/min/1.73m2 Severely decreased ?15 - 29 mL/min/1.73m2 Kidney Failure ?< 15 ??mL/min/1.73m2 *Relative to young adult level If -Liberian multiply value by 1.16. Estimated glomerular filtration [...] 70. Current interpretive data was last reviewed 2015. Blood specimen (specimen) 10/12/2017 9:44 PM CDT 10/12/2017 9:53 PM CDT Narrative [facility] ([place]) - 10/12/2017 10:22 PM CDT us Amy Olvera MD LAB BLOOD ORDERABLES Final Result [facility] ([place]) 1 [facility] Department [place] [address] * (ABNORMAL) Basic metabolic panel (10/12/2017 9:44 PM CDT) Sodium 126(L) 135 - 145 mmol/L [facility] ([place]) Potassium, pl 3.6 3.3 - 4.9 mmol/L [facility] ([place]) Chloride 94(L) 97 - 110 mmol/L [facility] ([place]) CO2 22 22 - 32 mmol/L [facility] ([place]) BUN 14 8 - 25 mg/dL [facility] ([place]) Glucose 155 70 - 199 mg/dL [facility] ([place]) Comment: Interpretive Data Fasting glucose >/= 126 mg/dl is diagnostic for diabetes. ?? Fasting is defined as no caloric intake for at least 8 hours. Fasting glucose between 100 mg/dl to 125 mg/dl is diagnostic of prediabetes. In a patient with classic symptoms of hyperglycemia or hyperglycemic crisis, a random glucose >/= 200 mg/dl is diagnostic for diabetes. In the absence of unequivocal hyperglycemia, results should be confirmed by repeat testing. The classification and Diagnosis of Diabetes Diabetes Care 2017;40 (Suppl. 1):S11. Current interpretive data was last revised 2017. Creatinine 1.10 0.60 - 1.10 mg/dL [facility] ([place]) Calcium 8.2(L) 8.5 - 10.3 mg/dL [facility] ([place]) Anion gap 10 2 - 15 mmol/L [facility] ([place]) Blood specimen (specimen) 10/12/2017 9:44 PM CDT 10/12/2017 9:53 PM CDT Narrative [facility] ([place]) - 10/12/2017 10:22 PM CDT us Amy Olvera MD LAB BLOOD ORDERABLES Final Result [facility] ([place]) 1 [facility] Department [place] [address] * XR Chest 1 View (10/12/2017 6:57 PM CDT) Anatomical Region Laterality Modality Body, Chest N/A Computed Radiogr aphy Impressions 10/12/2017 7:26 PM CDT 1. Placement of right-sided PICC with tip in mid to lower one third of superior vena cava. 2. ??Interval development of extensive left lung infiltrate with retrocardiac left lower lobe consolidation. ??Aspiration? 3. ??No other acute findings. Results called to ALEJANDRO Wright in ICU on 10/12/2017 at 1924 hours. Critical result message with acuity significant has been communicated to ordering provider via the [place] Critical Result tracking system. Status of follow up communication is complete. Electronically signed by: Emery aMry Jr., M.D. Narrative 10/12/2017 7:26 PM CDT XR CHEST 1 VIEW HISTORY: Dyspnea. ??Shortness of breath. ??O2 saturation dropped. COMPARISON: Portable chest at 1634 hours today. VIEWS: Erect AP portable chest 1852 hours. FINDINGS: Patient is rotated to the left. ??Right hemidiaphragm remains moderately elevated. ??Right-sided PICC is now in place with tip in mid to lower one third of superior vena cava. ??Consolidation has developed at the left lung base. ??Left hemidiaphragm is now unsharp. ??Mild infiltrate is seen in the mid to upper left lung. ??No right lung infiltrate is seen. ??Small dense granuloma is present at the medial right lung base. ??Additional calcified granulomata are present at the right hilum. ??Heart size is normal. ??Pulmonary vascularity is normal . Thoracic aorta is not dilated. No pleural effusion is seen. Bony structures are unremarkable. Procedure Note Emery Mary MD - 10/12/2017 XR CHEST 1 VIEW HISTORY: Dyspnea. Shortness of breath. O2 saturation dropped. COMPARISON: Portable chest at 1634 hours today. VIEWS: Erect AP portable chest 1852 hours. FINDINGS: Patient is rotated to the left. Right hemidiaphragm remains moderately elevated. Right-sided PICC is now in place with tip in mid to lower one third of superior vena cava. Consolidation has developed at the left lung base. Left hemidiaphragm is now unsharp. Mild infiltrate is seen in the mid to upper left lung. No right lung infiltrate is seen. Small dense granuloma is present at the medial right lung base. Additional calcified granulomata are present at the right hilum. Heart size is normal. Pulmonary vascularity is normal . Thoracic aorta is not dilated. No pleural effusion is seen. Bony structures are unremarkable. IMPRESSION: 1. Placement of right-sided PICC with tip in mid to lower one third of superior vena cava. 2. Interval development of extensive left lung infiltrate with retrocardiac left lower lobe consolidation. Aspiration? 3. No other acute findings. Results called to ALEJANDRO Wright in ICU on 10/12/2017 at 1924 hours. Critical result message with acuity significant has been communicated to ordering provider via the [place] Critical Result tracking system. Status of follow up communication is complete. Electronically signed by: Emery Mary Jr., M.D. Amy Olvera MD IMG XR PROCEDURES Final Res ult * Lactate, whole blood (10/12/2017 5:04 PM CDT) [facility] Lactate, bld 1.2 0.5 - 2.2 mmol/L [facility] ([place]) Blood specimen (specimen) 10/12/2017 5:04 PM CDT 10/12/2017 5:07 PM CDT Narrative [facility] ([place]) - 10/12/2017 5:10 PM CDT Amy Olvera MD LAB BLOOD ORDERABLES Final Result [facility] ([place]) 1 [facility] Department [place] [address] * eGFR (10/12/2017 4:38 PM CDT) [facility] eGFR 53 mL/min/1.7 3 m2 [facility] ([place]) Comment: Interpretive Data Reference Interval Normal ?>/= 90 mL/min/1.73m2 Mildly decreased* ? 60 - 89 mL/min/1.73m2 Mildly to moderately decreased ?45 - 59 mL/min/1.73m2 Moderately to severely decreased ??30 - 44 mL/min/1.73m2 Severely decreased ?15 - 29 mL/min/1.73m2 Kidney Failure ?< 15 ??mL/min/1.73m2 *Relative to young adult level If -Liberian multiply value by 1.16. Estimated glomerular filtration [...] 70. Current interpretive data was last reviewed 2015. Blood specimen (specimen) 10/12/2017 4:38 PM CDT 10/12/2017 4:39 PM CDT Narrative [facility] ([place]) - 10/12/2017 5:02 PM CDT Amy Olvera MD LAB BLOOD ORDERABLES Final Result [facility] ([place] 1 [facility] Department [place] [address] * (ABNORMAL) Basic metabolic panel (10/12/2017 4:38 PM CDT) Sodium 124(L) 135 - 145 mmol/L [facility] ([place]) Potassium, pl 3.3 3.3 - 4.9 mmol/L [facility] ([place]) Chloride 92(L) 97 - 110 mmol/L [facility] ([place]) CO2 22 22 - 32 mmol/L [facility] ([place]) BUN 14 8 - 25 mg/dL [facility] ([place]) Glucose 143 70 - 199 mg/dL [facility] ([place]) Comment: Interpretive Data Fasting glucose >/= 126 mg/dl is diagnostic for diabetes. ?? Fasting is defined as no caloric intake for at least 8 hours. Fasting glucose between 100 mg/dl to 125 mg/dl is diagnostic of prediabetes. In a patient with classic symptoms of hyperglycemia or hyperglycemic crisis, a random glucose >/= 200 mg/dl is diagnostic for diabetes. In the absence of unequivocal hyperglycemia, results should be confirmed by repeat testing. The classification and Diagnosis of Diabetes Diabetes Care 2017;40 (Suppl. 1):S11. Current interpretive data was last revised 2017. Creatinine 1.16(H) 0.60 - 1.10 mg/dL [facility] ([place]) Calcium 7.5(L) 8.5 - 10.3 mg/dL [facility] ([place]) Anion gap 10 2 - 15 mmol/L [facility] ([place]) Blood specimen (specimen) 10/12/2017 4:38 PM CDT 10/12/2017 4:39 PM CDT Narrative [facility]) - 10/12/2017 5:01 PM CDT Amy Olvera MD LAB BLOOD ORDERABLES Final Result [facility] AN) 1 [facility] Department [place] [address] * eGFR (10/12/2017 10:01 AM CDT) eGFR 48 mL/min/1.7 3 m2 [facility] ([place]) Comment: Interpretive Data Reference Interval Normal ?>/= 90 mL/min/1.73m2 Mildly decreased* ? 60 - 89 mL/min/1.73m2 Mildly to moderately decreased ?45 - 59 mL/min/1.73m2 Moderately to severely decreased ??30 - 44 mL/min/1.73m2 Severely decreased ?15 - 29 mL/min/1.73m2 Kidney Failure ?< 15 ??mL/min/1.73m2 *Relative to young adult level If -Liberian multiply value by 1.16. Estimated glomerular filtration [...] 70. Current interpretive data was last reviewed 2015. Blood specimen (specimen) 10/12/2017 10:01 AM CDT 10/12/2017 10:05 AM CDT Narrative [facility] ([place]) - 10/12/2017 10:24 AM CDT Amy Olvera MD LAB BLOOD ORDERABLES Final Result [facility] ([place]) 1 [facility] Department [place] [address] * (ABNORMAL) Basic metabolic panel (10/12/2017 10:01 AM CDT) Sodium 122(L) 135 - 145 mmol/L [facility] ([place]) Potassium, pl 3.3 3.3 - 4.9 mmol/L [facility] ([place]) Chloride 88(L) 97 - 110 mmol/L [facility] ([place]) CO2 23 22 - 32 mmol/L [facility] ([place]) BUN 17 8 - 25 mg/dL [facility] ([place]) Glucose 185 70 - 199 mg/dL [facility] ([place]) Comment: Interpretive Data Fasting glucose >/= 126 mg/dl is diagnostic for diabetes. ?? Fasting is defined as no caloric intake for at least 8 hours. Fasting glucose between 100 mg/dl to 125 mg/dl is diagnostic of prediabetes. In a patient with classic symptoms of hyperglycemia or hyperglycemic crisis, a random glucose >/= 200 mg/dl is diagnostic for diabetes. In the absence of unequivocal hyperglycemia, results should be confirmed by repeat testing. The classification and Diagnosis of Diabetes Diabetes Care 2017;40 (Suppl. 1):S11. Current interpretive data was last revised 2017. Creatinine 1.25(H) 0.60 - 1.10 mg/dL [facility] ([place]) Calcium 7.5(L) 8.5 - 10.3 mg/dL [facility] ([place]) Anion gap 11 2 - 15 mmol/L [facility] ([place]) Blood specimen (specimen) 10/12/2017 10:01 AM CDT 10/12/2017 10:05 AM CDT Narrative [facility] ([place]) - 10/12/2017 10:24 AM CDT BMP q 4 hours- 1st one at 10 am us Amy Olvera MD LAB BLOOD ORDERABLES Final Result [facility] ([place]) 1 [facility] Department [place] [place] [address] * eGFR (10/12/2017 5:49 AM CDT) [facility] Signature eGFR 45 mL/min/1.7 3 m2 [facility] ([place]) Comment: Interpretive Data Reference Interval Normal ?>/= 90 mL/min/1.73m2 Mildly decreased* ? 60 - 89 mL/min/1.73m2 Mildly to moderately decreased ?45 - 59 mL/min/1.73m2 Moderately to severely decreased ??30 - 44 mL/min/1.73m2 Severely decreased ?15 - 29 mL/min/1.73m2 Kidney Failure ?< 15 ??mL/min/1.73m2 *Relative to young adult level If -Liberian multiply value by 1.16. Estimated glomerular filtration [...] 70. Current interpretive data was last reviewed 2015. Blood specimen (specimen) 10/12/2017 5:49 AM CDT 10/12/2017 5:54 AM CDT Narrative [facility] AN) - 10/12/2017 6:53 AM CDT us Marisol Wilder MD LAB BLOOD ORDERABLE S Final Result [facility] ([place]) 1 [facility] Department [place] [address] * (ABNORMAL) Differential, auto (10/12/2017 5:49 AM CDT) Neutrophil abs 12.3(H) 1.7 - 6.5 K/cumm [facility] ([place]) Imm gran abs 0.1 0.0 - 0.1 K/cumm [facility] ([place]) Lymphocyte abs 0.5(L) 0.8 - 3.3 K/cumm [facility] ([place]) Monocyte abs 0.6 0.2 - 0.8 K/cumm [facility] ([place]) Eosinophil abs 0.0 0.0 - 0.5 K/cumm [facility] ([place]) Basophil abs 0.0 0.0 - 0.1 K/cumm [facility] ([place]) Neutrophil pct 91.1 % [facility] ([place]) Comment: Interpretive Data Percent cell count reference ranges are not reported, since discordance with absolute values may lead to misinterpretation of CBC data. Current Interpretive Data was last revised on 2017. Imm gran pct 0.4 % [facility] ([place]) Comment: Interpretive Data Percent cell count reference ranges are not reported, since discordance with absolute values may lead to misinterpretation of CBC data. Current Interpretive Data was last revised on 2017. Lymphocyte pct 3.7 % [facility] ([place]) Comment: Interpretive Data Percent cell count reference ranges are not reported, since discordance with absolute values may lead to misinterpretation of CBC data. Current Interpretive Data was last revised on 2017. Monocyte pct 4.7 % [facility] ([place]) Comment: Interpretive Data Percent cell count reference ranges are not reported, since discordance with absolute values may lead to misinterpretation of CBC data. Current Interpretive Data was last revised on 2017. Eosinophil pct 0.0 % [facility] ([place] Comment: Interpretive Data Percent cell count reference ranges are not reported, since discordance with absolute values may lead to misinterpretation of CBC data. Current Interpretive Data was last revised on 2017. Basophil pct 0.1 % [facility] ([place]) Comment: Interpretive Data Percent cell count reference ranges are not reported, since discordance with absolute values may lead to misinterpretation of CBC data. Current Interpretive Data was last revised on 2017. Blood specimen (specimen) 10/12/2017 5:49 AM CDT 10/12/2017 5:54 AM CDT Narrative [facility] ([place]) - 10/12/2017 6:51 AM CDT Marisol Wilder MD LAB BLOOD ORDERABLE S Final Result Performing Organization Address [facility] Co de Phone Number [facility] ([place]) 1 [facility] [place] [address] * (ABNORMAL) Magnesium (10/12/2017 5:49 AM CDT) Magnesium 2.9(H) 1.6 - 2.4 mg/dL [facility] ([place]) Blood specimen (specimen) 10/12/2017 5:49 AM CDT 10/12/2017 5:54 AM CDT Narrative [facility] ([place]) - 10/12/2017 6:35 AM CDT Liang aJcobsen MD LAB BLOOD ORDERABLES Final Re sult Performing Organization Address [facility] Co de Phone Number [facility] ([place]) 1 [facility] [place] [address] * (ABNORMAL) Phosphorus (10/12/2017 5:49 AM CDT) Phosphorus, pl 4.7(H) 2.3 - 4.5 mg/dL [facility] ([place]) Blood specimen (specimen) 10/12/2017 5:49 AM CDT 10/12/2017 5:54 AM CDT Narrative [facility] ([place]) - 10/12/2017 6:35 AM CDT Liang Jacobsen MD LAB BLOOD ORDERABLES Final Re sult [facility] ([place]) 1 [facility] Department [place] [address] * (ABNORMAL) Comprehensive metabolic panel (10/12/2017 5:49 AM CDT) Sodium 122(L) 135 - 145 mmol/L [facility] ([place]) Potassium, pl 3.8 3.3 - 4.9 mmol/L [facility] ([place]) CO2 22 22 - 32 mmol/L [facility] ([place]) BUN 17 8 - 25 mg/dL [facility] ([place]) Glucose 210(H) 70 - 199 mg/dL [facility] ([place]) Comment: Interpretive Data Fasting glucose >/= 126 mg/dl is diagnostic for diabetes. ?? Fasting is defined as no caloric intake for at least 8 hours. Fasting glucose between 100 mg/dl to 125 mg/dl is diagnostic of prediabetes. In a patient with classic symptoms of hyperglycemia or hyperglycemic crisis, a random glucose >/= 200 mg/dl is diagnostic for diabetes. In the absence of unequivocal hyperglycemia, results should be confirmed by repeat testing. The classification and Diagnosis of Diabetes Diabetes Care 2017;40 (Suppl. 1):S11. Current interpretive data was last revised 2017. Creatinine 1.32(H) 0.60 - 1.10 mg/dL [facility] ([place]) Calcium 7.4(L) 8.5 - 10.3 mg/dL [facility] ([place]) Chloride 87(L) 97 - 110 mmol/L [facility] ([place]) Albumin 1.8(L) 3.5 - 5.0 g/dL [facility] ([place]) AST 22 10 - 45 Units/L [facility] ([place]) ALT 12 7 - 45 Units/L [facility] ([place]) Alk phos 172(H) 40 - 130 Units/L [facility] ([place]) Bilirubin, total 0.4 0.1 - 1.2 mg/dL [facility] ([place]) Protein, pl 3.8(L) 6.5 - 8.5 g/dL [facility] ([place]) Anion gap 13 2 - 15 mmol/L [facility] ([place]) Blood specimen (specimen) 10/12/2017 5:49 AM CDT 10/12/2017 5:54 AM CDT Narrative [facility] ([place]) - 10/12/2017 6:53 AM CDT us Liang Jacobsen MD LAB BLOOD ORDERABLES Final Re sult [facility] ([place]) 1 [facility] Department [place] [address] * (ABNORMAL) CBC with auto differential (10/12/2017 5:49 AM CDT) WBC 13.5(H) 3.8 - 9.9 K/cumm [facility] ([place]) RBC 2.81(L) 3.90 - 5.20 M/cumm [facility] ([place]) Hgb 8.9(L) 11.9 - 15.5 g/dL [facility] ([place]) Hct 24.2(L) 35.6 - 45.5 % [facility] ([place]) MCV 86.1 81.3 - 96.4 fL [facility] ([place]) MCH 31.7 27.1 - 33.3 pg [facility] ([place]) MCHC 36.8(H) 32.3 - 35.7 g/dL [facility] ([place]) RDW CV 11.8 11.1 - 14.9 % [facility] ([place]) RDW SD 37.4 35.7 - 48.1 fL [facility] ([place]) Plt 479(H) 150 - 400 K/cumm [facility] ([place]) MPV 8.0(L) 9.1 - 12.3 fL [facility] ([place]) NRBC abs 0.00 0.00 - 0.01 K/cumm [facility] ([place]) Blood specimen (specimen) 10/12/2017 5:49 AM CDT 10/12/2017 5:54 AM CDT Narrative [facility] ([place]) - 10/12/2017 6:51 AM CDT Liang Jacobsen MD LAB BLOOD ORDERABLES Final Re sult [facility] ([place]) 1 [place] [address] * Strep pneumoniae antigen, urine (10/12/2017 4:01 AM CDT) S. pneumoniae Ag Negative Negative [facility] ([place]) Comment: Presumptive negative for pneumococcal pneumonia, suggesting no current or recent infection. ??Infection due to S. pneumoniae cannot be ruled out since the antigen present in the sample may be below detection limit of the test. Test Performed by: [address] [id number] Urine 10/12/2017 4:01 AM CDT 10/12/2017 8:27 AM CDT Narrative [facility] ([place]) - 10/13/2017 4:29 PM CDT Result [facility] Amy Ferguson MD LAB MICROBIOLOGY - [facility] AL ORDERABLES Final Result Performing Organization Address City/[facility]/ZIP Co de Phone Number [facility] ([place]) 1 [place] [address] * Legionella antigen, urine (10/12/2017 4:01 AM CDT) Legionella Ag Negative Negative [facility] Comment: Negative for L. pneumophila serogroup 1 antigen, suggesting no recent or current infection. Infection due to Legionella cannot be ruled out since other serogroups and species may cause disease, antigen may not be present in urine in early infection, and the level of antigen present in the urine may be below the detection limit of the test. Test Performed by: [address] [address] Urine 10/12/2017 4:01 AM CDT 10/12/2017 8:27 AM CDT Narrative [facility] ([place]) - 10/13/2017 4:29 PM CDT us Amy Ferguson MD LAB MICROBIOLOGY - GENER AL ORDERABLES Final Result Performing Organization Address City/[facility]/ZIP Co de Phone Number [facility] ([place]) 1 [facility] [email or web address] [address] * eGFR (10/12/2017 1:29 AM CDT) eGFR 48 mL/min/1.7 3 m2 [facility] ([place]) Comment: Interpretive Data Reference Interval Normal ?>/= 90 mL/min/1.73m2 Mildly decreased* ? 60 - 89 mL/min/1.73m2 Mildly to moderately decreased ?45 - 59 mL/min/1.73m2 Moderately to severely decreased ??30 - 44 mL/min/1.73m2 Severely decreased ?15 - 29 mL/min/1.73m2 Kidney Failure ?< 15 ??mL/min/1.73m2 *Relative to young adult level If -Liberian multiply value by 1.16. Estimated glomerular filtration [...] 70. Current interpretive data was last reviewed 2015. Blood specimen (specimen) 10/12/2017 1:29 AM CDT 10/12/2017 1:31 AM CDT Narrative TRE[facility]INE AN) - 10/12/2017 2:16 AM CDT us Liang Jacobsen MD LAB BLOOD ORDERABLES Final Re sult Performing Organization Address City/[facility]/ZIP Co de Phone Number [facility] ([place]) 1 [facility] Department [place] [address] * (ABNORMAL) Renal function panel (10/12/2017 1:29 AM CDT) Sodium 120(C) 135 - 145 mmol/L [facility] ([place]) Comment:Critical result call ed to and read back by Arielle Kauffman (ICU_) on _10/12/2017 02:16:40 CDT to _Tami Shah. Potassium, pl 4.2 3.3 - 4.9 mmol/L [facility] ([place]) Chloride 86(L) 97 - 110 mmol/L [facility] ([place]) CO2 21(L) 22 - 32 mmol/L [facility] ([place]) Anion gap 13 2 - 15 mmol/L [facility] ([place]) Glucose 154 70 - 199 mg/dL [facility] ([place]) Comment: Interpretive Data Fasting glucose >/= 126 mg/dl is diagnostic for diabetes. ?? Fasting is defined as no caloric intake for at least 8 hours. Fasting glucose between 100 mg/dl to 125 mg/dl is diagnostic of prediabetes. In a patient with classic symptoms of hyperglycemia or hyperglycemic crisis, a random glucose >/= 200 mg/dl is diagnostic for diabetes. In the absence of unequivocal hyperglycemia, results should be confirmed by repeat testing. The classification and Diagnosis of Diabetes Diabetes Care 2017;40 (Suppl. 1):S11. Current interpretive data was last revised 2017. BUN 17 8 - 25 mg/dL [facility] ([place]) Creatinine 1.26(H) 0.60 - 1.10 mg/dL [facility] ([place]) Calcium 7.3(L) 8.5 - 10.3 mg/dL [facility] ([place]) Phosphorus, pl 4.7(H) 2.3 - 4.5 mg/dL [facility] ([place]) Albumin 1.6(L) 3.5 - 5.0 g/dL [facility] ([place]) Blood specimen (specimen) 10/12/2017 1:29 AM CDT 10/12/2017 1:31 AM CDT Narrative [facility] ([place]) - 10/12/2017 2:16 AM CDT us Liang Jacobsen MD LAB BLOOD ORDERABLES Final Re sult Performing Organization Address City/[facility]/ZIP Co de Phone Number TREMAINE SKELTON ([place]) 1 [facility] [place] [address] * Magnesium (10/12/2017 1:29 AM CDT) Magnesium 1.7 1.6 - 2.4 mg/dL TREMAINE SKELTON ([place]) Blood specimen (specimen) 10/12/2017 1:29 AM CDT 10/12/2017 1:31 AM CDT Narrative TREMAINE SKELTON ([place]) - 10/12/2017 2:16 AM CDT us Liang Jacobsen MD LAB BLOOD ORDERABLES Final Re sult Performing Organization Address [facility] Co de Phone Number TREMAINE SKELTON ([place]) [address] [place] [address] [place] [address] * MRSA culture Nasal (10/11/2017 11:27 PM CDT) Report Final Report: Negative TREMAINE SKELTON ([place]) Comment:Testing performed by : [facility], 1 [facility] [place] [address] Nasal 10/11/2017 11:2 7 PM CDT 10/12/2017 3:35 AM CDT Narrative TREMAINE SKELTON ([place]) - 10/13/2017 7:22 AM CDT us Marisol Wilder MD LAB MICROBIOLOGY - GENERAL ORDERABLES Final Result Performing Organization Address City/[facility] Co de Phone Number TREMAINE SKELTON ([place]) 1 [facility] [place] [address] * (ABNORMAL) Protime-INR (10/11/2017 9:48 PM CDT) PT 13.3(H) 9.5 - 13.0 sec TREMAINE SKELTON ([place]) INR 1.17 0.90 - 1.20 TREMAINE SKELTON ([place]) Comment: Interpretive Data Recommended ranges for Protime INR: 2.0 - 3.0 Most indications for Warfarin therapy (e.g. Treatment of DVT, PE, bioprosthetic valve replacement, prophylaxis venous thrombosis, atrial fibrillation). 2.5 - 3.5 Mechanical mitral valve or dual mechanical mitral and Aortic valve replacement. Current Interpretive Data was last revised on 2015. Blood specimen (specimen) 10/11/2017 9:48 PM CDT 10/11/2017 9:50 PM CDT Narrative TREMAINE SKELTON ([place]) - 10/11/2017 10:22 PM CDT Marisol Wilder MD LAB BLOOD ORDERABLE S Final Result TREMAINE SKELTON ([place]) 1 [facility] Department [place] [address] * FL CRITICAL CARE ILL/INJURED PATIENT INIT 30-74 MIN, FL CRITICAL CARE ILL/INJURED PATIENT ADDL 30 MIN, FL CRITICAL CARE ILL/INJURED PATIENT ADDL 30 MIN (10/11/2017 8:21 PM CDT) Narrative Marisol Wilder MD - 10/11/2017 8:21 PM CDT Marisol Wilder MD ? 10/22/2017 10:35 AM Critical Care Performed by: MARISOL WILDER Authorized by: MARISOL WILDER Critical care provider statement: ??Critical care time (minutes): ??120 ??Critical care time was exclusive of: ??Separately billable procedures and treating other patients ??Critical care was necessary to treat or prevent imminent or life-threatening deterioration of the following conditions: Hypotension and hyponatremia. ??Critical care was time spent personally by me on the following activities: ??Development of treatment plan with patient or surrogate, discussions with consultants, evaluation of patient's response to treatment, examination of patient, re-evaluation of patient's condition, interpretation of cardiac output measurements, ordering and review of laboratory studies, ordering and review of radiographic studies, pulse oximetry and review of old charts ??I assumed direction of critical care for this patient from another provider in my specialty: no ?? us Marisol Wilder MD IN CLINIC/BEDSIDE O RDERABLES Final Result * CT Abdomen Pelvis W Contrast (10/11/2017 6:21 PM CDT) Anatomical Region Laterality Modality Body N/A Computed Tomogra phy Impressions 10/11/2017 7:07 PM CDT 1. ??EXTENSIVE ASCITES IN THE ABDOMEN AND PELVIS. 2. ??SMALL HYPODENSE FOCUS RIGHT HEPATIC LOBE, TOO SMALL TO CHARACTERIZE, MOST COMMONLY REPRESENTING CYST. 3. ??SMALL AND VERY SMALL HYPODENSE FOCI WITHIN THE KIDNEYS, TOO SMALL TO CHARACTERIZE, MOST COMMONLY REPRESENTING CYST. 4. ??FINDINGS SUPPORTIVE OF COLITIS. ??COLITIS MAY BE INFECTIOUS, INFLAMMATORY, OR ISCHEMIC. 5. ??2 SMALL INDETERMINATE NODULES RIGHT LUNG BASE. ??FOLLOW-UP PER [facility] CRITERIA RECOMMENDED. Electronically signed by: Elliot Perkins M.D Narrative 10/11/2017 7:[address] ABDOMEN PELVIS W CONTRAST HISTORY: Pain. ??Abdominal pain nausea and vomiting. ??Prior cholecystectomy. ??HERNANDEZ with recurrent ascites. TECHNIQUE: Helical CT scan abdomen and pelvis obtained with intravenous contrast. ??100 mL of Optiray 320. COMPARISON: None available. FINDINGS: Extensive ascites in the abdomen and pelvis. ??The liver is on the small side. ??Small hypodense focus right hepatic lobe, too small to characterize. ??Prior cholecystectomy. ??Spleen size within normal range. ??No pancreatic mass identified. ??For the kidneys, no hydronephrosis. ??Small and very small hypodense foci the kidneys. ??2 small to characterize. ??There appear to be thickening of the descending and sigmoid colon, suggesting colitis, however this is underdistended. ??There also appear to be some thickening of the right colon. ??No small bowel dilatation identified. ??Evaluation of the gastrointestinal tract is limited without oral contrast. ??Appendix thickness is normal. ??Urinary bladder is nondistended. ??2 small nodular densities right basal region. ??Indeterminate nature. ??These each measure approximately 3 to 4 mm. ??Calcified nodule right lung base represents granuloma. Procedure Note Elliot Perkins MD - 10/11/2017 CT ABDOMEN PELVIS W CONTRAST HISTORY: Pain. Abdominal pain nausea and vomiting. Prior cholecystectomy. HERNANDEZ with recurrent ascites. TECHNIQUE: Helical CT scan abdomen and pelvis obtained with intravenous contrast. 100 mL of Optiray 320. COMPARISON: None available. FINDINGS: Extensive ascites in the abdomen and pelvis. The liver is on the small side. Small hypodense focus right hepatic lobe, too small to characterize. Prior cholecystectomy. Spleen size within normal range. No pancreatic mass identified. For the kidneys, no hydronephrosis. Small and very small hypodense foci the kidneys. 2 small to characterize. There appear to be thickening of the descending and sigmoid colon, suggesting colitis, however this is underdistended. There also appear to be some thickening of the right colon. No small bowel dilatation identified. Evaluation of the gastrointestinal tract is limited without oral contrast. Appendix thickness is normal. Urinary bladder is nondistended. 2 small nodular densities right basal region. Indeterminate nature. These each measure approximately 3 to 4 mm. Calcified nodule right lung base represents granuloma. IMPRESSION: 1. EXTENSIVE ASCITES IN THE ABDOMEN AND PELVIS. 2. SMALL HYPODENSE FOCUS RIGHT HEPATIC LOBE, TOO SMALL TO CHARACTERIZE, MOST COMMONLY REPRESENTING CYST. 3. SMALL AND VERY SMALL HYPODENSE FOCI WITHIN THE KIDNEYS, TOO SMALL TO CHARACTERIZE, MOST COMMONLY REPRESENTING CYST. 4. FINDINGS SUPPORTIVE OF COLITIS. COLITIS MAY BE INFECTIOUS, INFLAMMATORY, OR ISCHEMIC. 5. 2 SMALL INDETERMINATE NODULES RIGHT LUNG BASE. FOLLOW-UP PER [facility] CRITERIA RECOMMENDED. Electronically signed by: Elliot Perkins M.D Marisol Wilder MD IMG CT PROCEDURES F inal Result * MRSA culture Nasal (10/11/2017 5:28 PM CDT) Report Final Report: Negative TREMAINE SKELTON ([place]) Comment:Testing performed by : [facility], 1 [facility], [place]., [address] Nasal 10/11/2017 5:28 PM CDT 10/11/2017 7:38 PM CDT Narrative TREMAINE SKELTON ([place]) - 10/13/2017 6:54 AM CDT Specimen received on an ESwab. us Marisol Wilder MD LAB MICROBIOLOGY - GENERAL ORDERABLES Final Result TREMAINE SKELTON ([place]) 1 [facility] Department [place] [address] * Urine culture (10/11/2017 5:22 PM CDT) Report Final Report: Insignifican t growth based on current clinical standards. TREMAINE SKELTON ([place]) Comment:Testing performed by : [facility], [address] [place] [address] Urine, clean voided 10/11/2017 5:22 PM CDT 10/11/2017 7:38 PM CDT Narrative TREMAINE SKELTON ([place]) - 10/12/2017 12:26 PM CDT Urine culture reflexed based upon urinalysis results. Testing performed by [facility] Microbiology Laboratory ([phone]) us Rd Davis Jr., MD LAB MICROBIOLOGY - GENERAL ORDERABLES Final Result Performing Organization Address City/[facility]/ZIP Co de Phone Number TREMAINE SKELTON ([place]) 1 [facility] [place] [address] * Sodium, urine, random (10/11/2017 5:22 PM CDT) Sodium, ur <20 mEq/L [facility] ([place]) Urine 10/11/2017 5:22 PM CDT 10/12/2017 6:20 AM CDT Narrative TREMAINE SKELTON ([place]) - 10/12/2017 6:35 AM CDT No normal range us Liang Jacobsen MD LAB URINE ORDERABLES Final Re sult TREMAINE SKELTON ([place]) 1 [facility] Department [place] [address] * (ABNORMAL) Urinalysis, microscopic only (10/11/2017 5:22 PM CDT) WBC, ur 11-20(A) 0 - 5 /HPF [facility] ([place]) RBC, ur 6-10(A) 0 - 5 /HPF [facility] ([place]) Epithelial cells, squamous, ur 11-20(A) 0 - 5 /HPF [facility] ([place]) Comment:Suggestive of contam ination. Consider recollection by clean catch. Bacteria, ur 1+(A) [facility] ([place]) Hyaline casts, ur 1-5 0 - 10 /LPF [facility] ([place]) Urine, clean voided 10/11/2017 5:22 PM CDT 10/11/2017 5:27 PM CDT Narrative [facility] ([place]) - 10/11/2017 5:[address] Davis Jr., MD LAB URINE ORDERABL ES Final Result TREMAINE SKELTON ([place]) 1 [facility] [place] [address] * (ABNORMAL) Urinalysis reflex to microscopic and culture Urine, clean voided (10/11/2017 5:22 PM CDT) Color, ur Ngoc(A) Yellow [facility] ([place]) Clarity, ur Cloudy(A) Clear [facility] ([place]) Specific gravity, ur 1.015 1.010 - 1.025 [facility] ([place]) pH, urine 5.5 [facility] ([place]) Protein, ur ql Trace Negative [facility] ([place]) Glucose, ur ql Negative Negative [facility] ([place]) Ketones, ur Negative Negative [facility] ([place]) Bilirubin, ur Negative Negative [facility] ([place]) Blood, ur Negative Negative [facility] ([place]) Urobilinogen, ur 0.2 mg/dL [facility] ([place]) Nitrite, ur Negative Negative [facility] A ([place]) Leukocyte esterase, ur 2+(A) Negative TREMAINE SKELTON ([place]) Urine, clean voided 10/11/2017 5:22 PM CDT 10/11/2017 5:27 PM CDT Narrative TREMAINE SKELTON ([place]) - 10/11/2017 5:49 PM CDT ?? Urine pH is affected by diet, medications, systemic acid-base disturbances, and renal tubular function. ??pH may affect urinary stone formation. ??For example, urine pH below 6.0 may help reduce the tendency for calcium phosphate stones and pH greater than 6.0 may reduce the tendency for uric acid stone formation. Source: [facility] [employer]. Last revised 05-27-[address] Jr., MD LAB MICROBIOLOGY - GENERAL ORDERABLES Final Result TREMAINE SKELTON ([place]) 1 [facility] Department [place] [address] * Blood culture Blood (10/11/2017 5:13 PM CDT) Report Final Report: No growth TREMAINE SKELTON ([place]) Comment:Testing performed by : [facility], [place]., [address] Blood specimen (specimen) (Antecubital, left) 10/11/2017 5:13 PM CDT 10/11/2017 7:38 PM CDT Narrative TREMAINE SKELTON ([place]) - 10/16/2017 7:01 AM CDT From a different site than #1. 1. For questions, call the Microbiology Laboratory at [phone]. Organism identification and/or antimicrobial susceptibility testing, if reported, [place] [address] 2. Blood cultures are incubated for 5 days, and cultures are monitored continuously. ??The first negative report is issued within 24 hours of receipt in the laboratory. ??Positive cultures are called in accordance with the critical call policy. 3. The most important factor for detection microbes in the setting of blood stream infection is the volume of blood submitted for culture. ??For pediatric patients, the recommended volume of blood to collect is 1 mL of blood per year of patient age, up to 15 mL, per blood culture set. For adult patients, 20 mL of blood, divided equally between an aerobic and anaerobic blood culture bottle, is recommended for each blood culture set. ??Failure to collect an optimal blood volume can result in false negative blood cultures. 4. Bloodstream infection is more likely to be catheter related if the time to culture positivity of a blood culture drawn through the catheter is at least 2.5 hours faster than the time to positivity of a percutaneous culture of the same volume drawn at the same time, using the same media type. 5. For blood cultures with gram-positive cocci, a rapid molecular test for organism identification may be performed using the [place] Nanosphere Gram Positive Blood Culture Assay. The Nanosphere assay detects microbial DNA in positive blood culture broth via hybridization of target DNA to capture oligonucleotides on a microarray. This assay has been cleared by the [place] Food and Drug Administration and its performance characteristics have been verified by the [facility] Microbiology Laboratory. Interpretive data was last revised on September 23, 2017. Marisol Wilder MD LAB MICROBIOLOGY - GENERAL ORDERABLES Final Result TREMAINE AN) 1 [facility] Department [place] [address] * Blood culture Blood (10/11/2017 5:07 PM CDT) Report Final Report: No growth TREMAINE AN) Comment:Testing performed by : [facility], [place]., [address] Blood specimen (specimen) (Antecubital, right) 10/11/2017 5:07 PM CDT 10/11/2017 7:37 PM CDT Narrative TREMAINE AN) - 10/16/2017 7:01 AM CDT 1. For questions, call the Microbiology Laboratory at [phone]. Organism identification and/or antimicrobial susceptibility testing, if reported, [place] [address] 2. Blood cultures are incubated for 5 days, and cultures are monitored continuously. ??The first negative report is issued within 24 hours of receipt in the laboratory. ??Positive cultures are called in accordance with the critical call policy. 3. The most important factor for detection microbes in the setting of blood stream infection is the volume of blood submitted for culture. ??For pediatric patients, the recommended volume of blood to collect is 1 mL of blood per year of patient age, up to 15 mL, per blood culture set. For adult patients, 20 mL of blood, divided equally between an aerobic and anaerobic blood culture bottle, is recommended for each blood culture set. ??Failure to collect an optimal blood volume can result in false negative blood cultures. 4. Bloodstream infection is more likely to be catheter related if the time to culture positivity of a blood culture drawn through the catheter is at least 2.5 hours faster than the time to positivity of a percutaneous culture of the same volume drawn at the same time, using the same media type. 5. For blood cultures with gram-positive cocci, a rapid molecular test for organism identification may be performed using the [place] Nanosphere Gram Positive Blood Culture Assay. The Nanosphere assay detects microbial DNA in positive blood culture broth via hybridization of target DNA to capture oligonucleotides on a microarray. This assay has been cleared by the [place] Food and Drug Administration and its performance characteristics have been verified by the [facility] Microbiology Laboratory. Interpretive data was last revised on September 23, 2017. Marisol Wilder MD LAB MICROBIOLOGY - GENERAL ORDERABLES Final Result Performing Organization Address City/State/[facility] Co de Phone Number [facility] [place] 1 [facility] Department [place] [address] * XR Chest 1 Vw Portable (10/11/2017 4:46 PM CDT) Anatomical Region Laterality Modality Body, Chest N/A Computed Radiogr aphy Impressions 10/11/2017 4:56 PM CDT NO ACUTE PULMONARY DISEASE. Electronically signed by: Itz Espinosa 10/11/2017 4:56 PM CDT XR CHEST 1 VIEW HISTORY: weakness. ??Difficulty breathing. ??Nausea. ??Vomiting. Tobacco use. TECHNIQUE: Portable AP view. COMPARISON: 08/23/2017. FINDINGS: Heart size is normal. ??No infiltrate or effusion identified. ??Elevation right hemidiaphragm, as previously. ??Prior cholecystectomy. Procedure Note Elliot Perkins MD - 10/11/2017 XR CHEST 1 VIEW HISTORY: weakness. Difficulty breathing. Nausea. Vomiting. Tobacco use. TECHNIQUE: Portable AP view. COMPARISON: 08/23/2017. FINDINGS: Heart size is normal. No infiltrate or effusion identified. Elevation right hemidiaphragm, as previously. Prior cholecystectomy. IMPRESSION: NO ACUTE PULMONARY DISEASE. Electronically signed by: Elliot Perkins M.D Marisol Wilder MD IMG XR PROCEDURES F inal Result * eGFR (10/11/2017 4:16 PM CDT) eGFR 44 mL/min/1.7 3 m2 TREMAINE SKELTON ([place]) Comment: Interpretive Data Reference Interval Normal ?>/= 90 mL/min/1.73m2 Mildly decreased* ? 60 - 89 mL/min/1.73m2 Mildly to moderately decreased ?45 - 59 mL/min/1.73m2 Moderately to severely decreased ??30 - 44 mL/min/1.73m2 Severely decreased ?15 - 29 mL/min/1.73m2 Kidney Failure ?< 15 ??mL/min/1.73m2 *Relative to young adult level If -Liberian multiply value by 1.16. Estimated glomerular filtration [...] 70. Current interpretive data was last reviewed 2015. Blood specimen (specimen) 10/11/2017 4:16 PM CDT 10/11/2017 4:19 PM CDT Narrative [facility] ([place]) - 10/11/2017 4:[address] Davis Jr., MD LAB BLOOD ORDERABL ES Final Result [facility] ([place]) 1 [facility] Department [place] [address] * (ABNORMAL) Differential, auto (10/11/2017 4:16 PM CDT) Neutrophil abs 10.8(H) 1.7 - 6.5 K/cumm [facility] ([place]) Imm gran abs 0.1 0.0 - 0.1 K/cumm [facility] ([place]) Lymphocyte abs 1.0 0.8 - 3.3 K/cumm [facility] ([place]) Monocyte abs 0.6 0.2 - 0.8 K/cumm [facility] ([place]) Eosinophil abs 0.0 0.0 - 0.5 K/cumm [facility] ([place]) Basophil abs 0.0 0.0 - 0.1 K/cumm [facility] ([place]) Neutrophil pct 86.1 % [facility] ([place]) Comment: Interpretive Data Percent cell count reference ranges are not reported, since discordance with absolute values may lead to misinterpretation of CBC data. Current Interpretive Data was last revised on 2017. Imm gran pct 0.5 % [facility] ([place]) Comment: Interpretive Data Percent cell count reference ranges are not reported, since discordance with absolute values may lead to misinterpretation of CBC data. Current Interpretive Data was last revised on 2017. Lymphocyte pct 7.9 % [facility] ([place]) Comment: Interpretive Data Percent cell count reference ranges are not reported, since discordance with absolute values may lead to misinterpretation of CBC data. Current Interpretive Data was last revised on 2017. Monocyte pct 5.1 % [facility] ([place]) Comment: Interpretive Data Percent cell count reference ranges are not reported, since discordance with absolute values may lead to misinterpretation of CBC data. Current Interpretive Data was last revised on 2017. Eosinophil pct 0.3 % JESE SKELTON ([place]) Comment: Interpretive Data Percent cell count reference ranges are not reported, since discordance with absolute values may lead to misinterpretation of CBC data. Current Interpretive Data was last revised on 2017. Basophil pct 0.1 % TREMAINE SKELTON ([place]) Comment: Interpretive Data Percent cell count reference ranges are not reported, since discordance with absolute values may lead to misinterpretation of CBC data. Current Interpretive Data was last revised on 2017. Blood specimen (specimen) 10/11/2017 4:16 PM CDT 10/11/2017 4:19 PM CDT Narrative TREMAINE SKELTON ([place]) - 10/11/2017 4:[address] Davis Jr., MD LAB BLOOD ORDERABL ES Final Result TREMAINE SKELTON ([place]) 1 [facility] Department [place] [address] * Troponin T (10/11/2017 4:16 PM CDT) Troponin T <0.01 0.00 - 0.06 ng/mL TREMAINE SKELTON ([place]) Comment: Interpretive Data Troponin table: ? Negative ? 0.00-0.06 ng/ml ? Indeterminate ?0.07-0.10 ng/ml ? Consistent with Myocardial Injury ?Greater than 0.10 ng/ml ?? Current interpretive data was last revised on 2014 Blood specimen (specimen) 10/11/2017 4:16 PM CDT 10/11/2017 4:19 PM CDT Narrative [facility] ([place]) - 10/11/2017 4:[address] Davis Jr., MD LAB BLOOD ORDERABL ES Edited Result - Final Performing Organization Address [facility]/ZIP Co de Phone Number TREMAINE SKELTON ([place]) [address] [facility] [place] [address] * Lipase (10/11/2017 4:16 PM CDT) Lipase 15 10 - 99 Units/L [facility] ([place]) Blood specimen (specimen) 10/11/2017 4:16 PM CDT 10/11/2017 4:19 PM CDT Narrative [facility] ([place]) - 10/11/2017 4:[address] Davis Jr., MD LAB BLOOD ORDERABL ES Final Result Performing Organization Address [facility]/ZIP Co de Phone Number [facility] ([place]) 1 [facility] [place] [address] * (ABNORMAL) Lactate, whole blood (10/11/2017 4:16 PM CDT) [facility] Lactate, bld 2.6(H) 0.5 - 2.2 mmol/L [facility] ([place]) Blood specimen (specimen) 10/11/2017 4:16 PM CDT 10/11/2017 4:19 PM CDT Narrative [facility] ([place]) - 10/11/2017 4:[address] Davis Jr., MD LAB BLOOD ORDERABL ES Final Result TREMAINE SKELTON ([place]) 1 [place] [address] * (ABNORMAL) Comprehensive metabolic panel (10/11/2017 4:16 PM CDT) Sodium 115(C) 135 - 145 mmol/L [facility] ([place]) Comment:Critical result call ed to and read back by Tami Arizmendi (ER) on 10/11/2017 16:43:17 CDT to Charity Mcgee. Potassium, pl 4.6 3.3 - 4.9 mmol/L [facility] ([place]) CO2 24 22 - 32 mmol/L [facility] ([place]) BUN 18 8 - 25 mg/dL [facility] ([place]) Glucose 139 70 - 199 mg/dL [facility] ([place]) Comment: Interpretive Data Fasting glucose >/= 126 mg/dl is diagnostic for diabetes. ?? Fasting is defined as no caloric intake for at least 8 hours. Fasting glucose between 100 mg/dl to 125 mg/dl is diagnostic of prediabetes. In a patient with classic symptoms of hyperglycemia or hyperglycemic crisis, a random glucose >/= 200 mg/dl is diagnostic for diabetes. In the absence of unequivocal hyperglycemia, results should be confirmed by repeat testing. The classification and Diagnosis of Diabetes Diabetes Care 2017;40 (Suppl. 1):S11. Current interpretive data was last revised 2017. Creatinine 1.36(H) 0.60 - 1.10 mg/dL [facility] ([place]) Calcium 7.7(L) 8.5 - 10.3 mg/dL [facility] ([place]) Chloride 80(L) 97 - 110 mmol/L [facility] ([place]) Albumin 1.7(L) 3.5 - 5.0 g/dL [facility] ([place]) AST 24 10 - 45 Units/L [facility] ([place]) ALT 14 7 - 45 Units/L [facility] ([place]) Alk phos 204(H) 40 - 130 Units/L [facility] ([place]) Bilirubin, total 0.5 0.1 - 1.2 mg/dL [facility] ([place]) Protein, pl 4.1(L) 6.5 - 8.5 g/dL [facility] ([place]) Anion gap 11 2 - 15 mmol/L [facility] ([place]) Blood specimen (specimen) 10/11/2017 4:16 PM CDT 10/11/2017 4:19 PM CDT Narrative [facility] ([place]) - 10/11/2017 4:[address] Davis Jr., MD LAB BLOOD ORDERABL ES Final Result [facility] ([place]) 1 [facility] Department [place] [address] * (ABNORMAL) CBC with auto differential (10/11/2017 4:16 PM CDT) WBC 12.5(H) 3.8 - 9.9 K/cumm [facility] ([place]) RBC 2.96(L) 3.90 - 5.20 M/cumm [facility] ([place]) Hgb 9.4(L) 11.9 - 15.5 g/dL [facility] Hct 25.3(L) 35.6 - 45.5 % [facility] MCV 85.5 81.3 - 96.4 fL [facility] MCH 31.8 27.1 - 33.3 pg [facility] MCHC 37.2(H) 32.3 - 35.7 g/dL [facility] RDW CV 11.8 11.1 - 14.9 % [facility] RDW SD 36.5 35.7 - 48.1 fL [facility] Plt 472(H) 150 - 400 K/cumm [facility] MPV 8.1(L) 9.1 - 12.3 fL [facility] NRBC abs 0.00 0.00 - 0.01 K/cumm [facility] Blood specimen (specimen) 10/11/2017 4:16 PM CDT 10/11/2017 4:19 PM CDT Narrative [facility] - 10/11/2017 4:[address] Davis Jr., MD LAB BLOOD ORDERABL ES Final Result [facility] Department [place] [address] * ECG 12 lead (10/11/2017 4:09 PM CDT) Patient age 56 years [facility] Interpretation Text SINUS RHYTHMLOW QRS VOLTAGEINCOMPLETE RIGHT BUNDLE BRANCH BLOCKPOSSIBLE ANTERIOR MYOCARDIAL INFARCTION , PROBABLY OLDABNORMAL ECGNO PREVIOUS TRACING [facility] Comment:Physician Interprete r Dr. Seferino Huang M.D. Ventricular Rate EKG/Min 90 /min [facility] P Wave Duration 100 ms [facility] QRS-Interval (MSEC) 102 ms [facility] FL-Interval (MSEC) 168 ms [facility] QT Interval 372 ms [facility] QTc 424 ms [facility] QTC Interval ms [facility] P Colt 80 deg [facility] QRS Colt 88 deg [facility] T Colt 32 deg [facility] 10/11/2017 4:[address] Davis Jr., MD ECG ORDERABLES nal Result [facility] documented in this encounter Visit Diagnoses Diagnosis Pneumonia of left lower lobe due to infectious organism- Primary Intractable vomiting with nausea, unspecified vomiting type HERNANDEZ (nonalcoholic steatohepatitis) Other chronic nonalcoholic liver disease Dehydration Hyponatremia Hyposmolality and/or hyponatremia Colitis Other and unspecified noninfectious gastroenteritis and colitis HERNANDEZ (nonalcoholic steatohepatitis) Other chronic nonalcoholic liver disease Anxiety Anxiety state, unspecified Hypotension Unspecified hypotension Chronic hyponatremia Hyposmolality and/or hyponatremia Ascites Abdominal pain Abdominal pain, unspecified site Acute cystitis with hematuria MAINOR (acute kidney injury) (HCC) Generalized weakness Severe protein-calorie malnutrition (CMS/HCC) (HCC) Other severe protein-calorie malnutrition documented in this encounter Administered Medications Inactive Administered Medications - up to 3 most recent administrations Medication Order MAR Action Action Date Dose Rate Site albumin 25 % bottle 25 g 25 g, intravenous, Once, On 10/12/17 at 0715, For 1 dose New Bag 10/12/2017 6:42 AM CDT 25 g albumin 25 % bottle 25 g 25 g, intravenous, Administer over 1 Hours, Every 8 hours scheduled, First dose on Wed10/12/17 at 1400 10/14/2017 4:04 PM CDT 25 g 10/14/2017 9:05 AM CDT 25 g 10/13/2017 9:14 PM CDT 25 g ALPRAZolam (XANAX) tablet 0.25 mg 0.25 mg, oral, 3 times daily PRN, anxiety, Starting on Wed10/12/17 at 0101 Given 10/14/2017 5:12 AM CDT 0.25 mg Given 10/13/2017 8:08 PM CDT 0.25 mg calcium gluconate 2 g in sodium chloride 0.9% 100 mL IVPB 2 g, intravenous, Once, On Wed10/12/17 at 1730, For 1 dose 10/12/2017 5:39 PM CDT 2 g cefTRIAXone (ROCEPHIN) 1000 mg in 10 mL sterile water (premix) 1,000 mg, intravenous, Administer over 4 Minutes, Every 24 hours scheduled, First dose on Wed10/12/17 at 1500, Indications: sbpIndications:sbp 10/14/2017 8:57 AM CDT 1,000 mg 10/13/2017 8:41 AM CDT 1,000 mg 10/12/2017 3:51 PM CDT 1,000 mg ciprofloxacin (CIPRO) 400 mg/200 mL in dextrose 5% (premix) 400 mg 400 mg, intravenous, at 200 mL/hr, Administer over 60 Minutes, Every 12 hours scheduled, First dose on Wed10/11/17 at 2100, Indications: Abdominal/Pelvic InfectionIndications:Abdomi nal/Pelvic Infection 10/11/2017 9:29 PM CDT 400 mg 200 mL/hr dextrose 5% and sodium chloride 0.45% infusion 75 mL/hr, intravenous, Continuous, Starting on Wed10/12/17 at 0445 Rate/Dose Change 10/12/2017 7:51 AM CDT 75 mL/hr 75 mL/hr Rate/Dose Change 10/12/2017 6:25 AM CDT 125 mL/hr 125 mL/ hr 10/12/2017 4:07 AM CDT 100 mL/hr 100 mL/hr dextrose 5% and sodium chloride 0.45% infusion 75 mL/hr, intravenous, Continuous, Starting on Wed10/12/17 at 1745 New Bag 10/14/2017 4:03 PM CDT 75 mL/hr 75 mL/hr Rate/Dose Verify 10/14/2017 4:00 PM CDT 75 mL/hr 75 mL/h r Rate/Dose Verify 10/14/2017 12:00 PM CDT 75 mL/hr 75 mL/ hr etomidate (AMIDATE) 2 mg/mL injection - ADS Override Pull Starting on Lida 10/14/17 at 1813, For 1 dose, ANA LAURA ALLEN, GURVINDER: cabinet override Given 10/14/2017 7:30 PM CDT 20 mg folic acid (FOLVITE) tablet 1 mg 1 mg, oral, Daily, First dose on Wed10/12/17 at 0900 Given 10/14/2017 8:58 AM CDT 1 mg Given 10/13/2017 8:47 AM CDT 1 mg HYDROmorphone (DILAUDID) injection 0.2 mg 0.2 mg, intravenous, Every 6 hours PRN, 1st line for pain, Starting on Wed10/12/17 at 0110, Indications: PainIndications:Pain Given 10/12/2017 6:15 PM CDT 0.2 mg Given 10/12/2017 1:44 AM CDT 0.2 mg HYDROmorphone (DILAUDID) injection 0.2 mg 0.2 mg, intravenous, Every 4 hours PRN, 1st line for pain, Starting on Wed10/12/17 at 2300, Indications: PainIndications:Pain Given 10/13/2017 12:54 PM CDT 0.2 mg Given 10/13/2017 3:09 AM CDT 0.2 mg Given 10/12/2017 10:57 PM CDT 0.2 mg HYDROmorphone (DILAUDID) injection 0.2 mg 0.2 mg, intravenous, Every 4 hours PRN, 1st line for pain, Starting on Wed10/13/17 at 1645, Dilute with 5-10 ml NS, give slow IVpush over at least 2 minutes., , Indications: breakthrough painIndications:breakthrough pain Given 10/14/2017 12:06 PM CDT 0.2 mg Given 10/13/2017 8:10 PM CDT 0.2 mg HYDROmorphone (DILAUDID) injection 0.5 mg 0.5 mg, intravenous, Once, On Wed10/11/17 at 1800, For 1 dose Given 10/11/2017 5:56 PM CDT 0.5 mg Left Antecubital ioversol intravenous syringe 100 mL 100 mL, intravenous, Once in imaging, contrast, Starting on Wed10/11/17 at 1818, For 1 dose Given 10/11/2017 6:19 PM CDT 100 mL ipratropium-albuterol (DUO-NEB) 0.5-2.5 mg/3 mL nebulizer solution 3 mL 3 mL, nebulization, Every 6 hours (respiratory care faculty), First dose on Wed10/12/17 at 2230, Indications: Chronic Obstructive Pulmonary Disease with BronchospasmsIndications:Chronic Obstructive Pulmonary Disease with Bronchospasms Given 10/14/2017 2:52 PM CDT 3 mL Given 10/14/2017 8:18 AM CDT 3 mL Given 10/14/2017 2:20 AM CDT 3 mL magnesium sulfate 2 g in 50 mL (premix) 2 g, intravenous, Administer over 60 Minutes, Once, On Wed10/12/17 at 0400, For 1 dose, X 1 dose per pharmacy electrolyte replacement protocol for magnesium 1.7 on 10/12 0129 10/12/2017 3:17 AM CDT 2 g metoclopramide (REGLAN) injection 5 mg 5 mg, intravenous, Administer over 5 Minutes, Every 8 hours PRN, other, nausea and vomiting, Starting on Wed10/11/17 at 2352 Given 10/12/2017 12:06 AM CDT 5 mg metroNIDAZOLE (FLAGYL) 500 mg/100 mL in sodium chloride (premix) 500 mg 500 mg, intravenous, at 100 mL/hr, Administer over 60 Minutes, Every 12 hours scheduled, First dose on Wed10/11/17 at 2100, Room temperature only, Indications: Abdominal/Pelvic InfectionIndications:Abdominal/Pel janis Infection 10/14/2017 8:58 AM CDT 500 mg 100 mL/hr 10/13/2017 9:14 PM CDT 500 mg 100 mL/hr 10/13/2017 8:52 AM CDT 500 mg 100 mL/hr midodrine (PROAMATINE) tablet 5 mg 5 mg, oral, 3 times daily, First dose on Wed10/12/17 at 0900, Indications: Symptomatic Orthostatic HypotensionIndications:Symptomatic Orthostatic Hypotension Given 10/14/2017 4:13 PM CDT 5 mg Given 10/14/2017 9:00 AM CDT 5 mg Given 10/13/2017 9:36 PM CDT 5 mg multivit devbjlbz-ttyo-XP-calciu m (THERA-M) tablet 1 tablet 1 tablet, oral, Daily, First dose on Wed10/12/17 at 0900, Indications: Vitamin Deficiency PreventionIndications:V itamin Deficiency Prevention Given 10/14/2017 9:01 AM CDT 1 tablet norepinephrine (LEVOPHED) 8 mg in dextrose 5% 250 mL (0.032 mg/mL) infusion 0.01-2 mcg/kg/min ? 41.4 kg (0.7763-155.25 mL/hr, rounded to 0.78-155.25 mL/hr), 32 mcg/mL, intravenous, Titrated, Starting on Wed10/12/17 at 1715, Until Wed10/12/17 at 2312, Initial rate: 0.05 mcg/kg/min, Titrate: Up/Down, Titrate by: 0.01 mcg/kg/min, Every: 2 minutes, Goal: SBP, SBP Goal: Other (comment) / 90, Routine Rate/Dose Change 10/12/2017 11:00 PM CDT 0.18 mcg/kg/min 13.97 mL/hr Rate/Dose Change 10/12/2017 10:45 PM CDT 0.17 mcg/kg/min 1 3.2 mL/hr Rate/Dose Change 10/12/2017 10:00 PM CDT 0.15 mcg/kg/min 1 1.64 mL/hr norepinephrine (LEVOPHED) 8 mg in dextrose 5% 250 mL (0.032 mg/mL) infusion 0.01-2 mcg/kg/min ? 41.4 kg (0.7763-155.25 mL/hr, rounded to 0.78-155.25 mL/hr), 32 mcg/mL, intravenous, Titrated, Starting on Wed10/12/17 at 2345, Until Wed10/14/17 at 2142, Initial rate: 0.05 mcg/kg/min, Titrate: Up/Down, Titrate by: 0.01 mcg/kg/min, Every: 2 minutes, Goal: SBP, SBP Goal: Other (comment) / 80 or above, Routine Rate/Dose Verify 10/14/2017 4:00 PM CDT 0.02 mcg/kg/min 1.55 mL/hr Rate/Dose Verify 10/14/2017 12:00 PM CDT 0.02 mcg/kg/min 1 .55 mL/hr Rate/Dose Verify 10/14/2017 8:00 AM CDT 0.02 mcg/kg/min 1. 55 mL/hr ondansetron (ZOFRAN) 4 mg/2 mL injection - ADS Override Pull Starting on Wed10/11/17 at 2158, For 1 dose, TAMEKA RNZHENG: cabinet override ondansetron (ZOFRAN) injection 4 mg 4 mg, intravenous, Once, On Wed10/11/17 at 1600, For 1 dose Given 10/11/2017 3:54 PM CDT 4 mg Left Antecubital ondansetron (ZOFRAN) injection 4 mg 4 mg, intravenous, Once, On Wed10/11/17 at 1800, For 1 dose Given 10/11/2017 5:57 PM CDT 4 mg Left Antecubital ondansetron (ZOFRAN) injection 4 mg 4 mg, intravenous, Once, On Wed10/11/17 at 2200, For 1 dose, Indications: Nausea, VomitingIndications:Nausea,Vomi ting Given 10/11/2017 9:55 PM CDT 4 mg ondansetron (ZOFRAN) injection 4 mg 4 mg, intravenous, Once, On Wed10/12/17 at 0030, For 1 dose Given 10/12/2017 12:44 AM CDT 4 mg ondansetron (ZOFRAN) injection 4 mg 4 mg, intravenous, Every 4 hours PRN, nausea, vomiting, Starting on Wed10/12/17 at 1702, Give IV push over at least 2 minutes. Given 10/14/2017 10:08 AM CDT 4 mg Given 10/14/2017 1:20 AM CDT 4 mg Given 10/13/2017 6:41 PM CDT 4 mg pantoprazole (PROTONIX) injection 80 mg 80 mg, intravenous, Daily, First dose on Wed10/12/17 at 0900, Reconstitute each 40 mg vial with 10 ml of NS, administer IV push over at least 2 minutes. Reconstituted solution stable for 2 hours at room temp. Flush IV line before and after administration with D5W, NS, or LR., , Indications: Treatment of Non-Bleeding Gastric DisorderIndications:Treatment of Non-Bleeding Gastric Disorder Given 10/14/2017 9:01 AM CDT 80 mg Given 10/13/2017 8:41 AM CDT 80 mg Given 10/12/2017 10:10 AM CDT 80 mg phenylephrine (AUGIE-SYNEPHRINE) 25 mg in sodium chloride 0.9% 250 mL (0.1 mg/mL) infusion 0.1-4 mcg/kg/min ? 41.4 kg (2.484-99.36 mL/hr, rounded to 2.48-99.36 mL/hr), 100 mcg/mL, intravenous, Titrated, Starting on Wed10/12/17 at 0800, Until Wed10/12/17 at 1650, Indications: If BP not improved with albumin, Initial rate: 0.5 mcg/kg/min, Titrate: Up/Down, Titrate by: 0.1 mcg/kg/min, Every: 2 minutes, Goal: SBP / 80, SBP Goal: Other (comment) / 80, RoutineIndications:If BP not improved with albumin New Bag 10/12/2017 3:19 PM CDT 2 mcg/kg/min 49.7 mL/hr Rate/Dose Change 10/12/2017 11:15 AM CDT 2 mcg/kg/min 49.7 mL/hr Rate/Dose Change 10/12/2017 10:59 AM CDT 1.9 mcg/kg/min 47 .2 mL/hr piperacillin-tazobactam (ZOSYN) 2.25 g in 50 mL dextrose (premix) 2.25 g, intravenous, Every 6 hours scheduled, First dose (after last modification) on Wed10/12/17 at 1200, Zosyn adjusted per renal protocol for CrCl 20-39 ml/min for indication other than HCAP (Estimated Creatinine Clearance: 31.5 mL/min (A) (by C-G formula based on SCr of 1.32 mg/dL (H)).), Indications: Abdominal/Pelvic InfectionIndications:Abdomina l/Pelvic Infection New Bag 10/12/2017 12:22 PM CDT 2.25 g piperacillin-tazobactam (ZOSYN) 3.375 g in 50 mL dextrose (premix) 3.375 g, intravenous, Once, On Wed10/11/17 at 1730, For 1 dose, Indications: Abdominal/Pelvic InfectionIndications:Abdomina l/Pelvic Infection New Bag 10/11/2017 5:30 PM CDT 3.375 g Left Antecubital piperacillin-tazobactam (ZOSYN) 3.375 g in 50 mL dextrose (premix) 3.375 g, intravenous, Every 6 hours scheduled, First dose (after last reorder) on Wed10/12/17 at 0145, Indications: Abdominal/Pelvic InfectionIndications:Abdomina l/Pelvic Infection New 10/12/2017 6:03 AM CDT 3.375 g New Bag 10/12/2017 1:30 AM CDT 3.375 g potassium chloride 40 mEq in sodium chloride 0.9% 100 mL IVPB 40 mEq, intravenous, at 25 mL/hr, Administer over 4 Hours, Once, On Wed10/13/17 at 0715, For 1 dose, Central line only, Indications: hypokalemiaIndications:hypokalemia New 10/13/2017 7:52 AM CDT 40 mEq 25 mL/hr potassium chloride 40 mEq in sodium chloride 0.9% 500 mL IVPB 40 mEq, intravenous, at 130 mL/hr, Administer over 4 Hours, Once, On Wed10/12/17 at 1400, For 1 dose New 10/12/2017 3:21 PM CDT 40 mEq 130 mL/hr potassium chloride ER (KLOR-CON,K-DUR) extended release tablet 40 mEq 40 mEq, oral, Once, On Lida 10/14/17 at 0800, For 1 dose, Potassium chloride 40 meq orally X 1 dose per pharmacy electrolyte replacement protocol for potassium = 3.4 on 10/14/17 Do not crush or chew Given 10/14/2017 9:05 AM CDT 40 mEq prochlorperazine (COMPAZINE) injection 10 mg 10 mg, intravenous, Every 6 hours PRN, nausea, vomiting, Starting on Wed10/12/17 at 0112, Indications: Nausea and VomitingIndications:Nausea and Vomiting Given 10/12/2017 12:43 PM CDT 10 mg Given 10/12/2017 3:23 AM CDT 10 mg propofol (DIPRIVAN) 10 mg/mL IV - ADS Override Pull Starting on Wed10/14/17 at 1813, For 1 dose, ANA LAURA ALLEN, GURVINDER: cabinet override Room temperature only Given 10/14/2017 7:32 PM CDT 5 mcg/kg/min propofol (DIPRIVAN) IV 5-50 mcg/kg/min ? 44.7 kg (1.341-13.41 mL/hr, rounded to 1.34-13.41 mL/hr), 10 mg/mL, intravenous, Titrated, Starting on Lida 10/14/17 at 2000, Until Wed10/14/17 at 2141, Initial dose: 10 mcg/kg/min, Titrate: Up/Down, Titrate by: 10 mcg/kg/min, Every: 10 minutes, Goal: RASS, RASS Goal: 0, -1, -2, Do not administer through the same I.V. catheter with blood or plasma. Tubing and any unused portions of propofol vials should be discarded after 12 hours. Room temperature only, Routine New Bag 10/14/2017 7:31 PM CDT 5 mcg/kg/min 1.34 mL/hr sodium chloride 0.9% bolus 1,000 mL 1,000 mL, intravenous, Once, On Wed10/11/17 at 1600, For 1 dose New Bag 10/11/2017 3:52 PM CDT 1,000 mL Left Antecubital sodium chloride 0.9% bolus 1,000 mL 1,000 mL, intravenous, Once, On Wed10/11/17 at 1730, For 1 dose New Bag 10/11/2017 5:28 PM CDT 1,000 mL Left Antecubital sodium chloride 0.9% bolus 1,000 mL 1,000 mL, intravenous, at 1,000 mL/hr, Administer over 1 Hours, Once, On Wed10/11/17 at 2145, For 1 dose New Bag 10/11/2017 9:45 PM CDT 1,000 mL 1000 mL/hr sodium chloride 0.9% flush 5-10 mL 5-10 mL, intra-catheter, Every 12 hours scheduled, First dose on Wed10/12/17 at 0900, Flush volume based on line type, size, and protocol., Indications: FlushingIndications:Fl ushing Given 10/14/2017 9:02 AM CDT 10 mL Given 10/13/2017 9:14 PM CDT 10 mL Given 10/13/2017 8:47 AM CDT 10 mL sodium chloride 0.9% flush 5-20 mL 5-20 mL, intra-catheter, As needed, line care, with each use, Starting on Wed10/12/17 at 0716, Flush volume based on line type, size, and protocol., Indications: FlushingIndications:Flushing Given 10/13/2017 5:08 AM CDT 20 mL Given 10/13/2017 3:09 AM CDT 10 mL sodium chloride 0.9% infusion 125 mL/hr, intravenous, Continuous, Starting on Wed10/12/17 at 0030 New Bag 10/12/2017 12:08 AM CDT 125 mL/hr 125 mL/hr sodium chloride 0.9% infusion 10 mL/hr, intravenous, Continuous PRN, Hang bag with transfusion; infuse to keep IV line open in the event of a transfusion reaction., Starting on Wed10/13/17 at 0758 New Bag 10/13/2017 11:23 AM CDT 10 mL/hr 10 mL/h r succinylcholine (ANECTINE) 20 mg/mL injection - ADS Override Pull Starting on Wed10/14/17 at 1813, For 1 dose, ANA LAURA ALLEN, GURVINDER: cabinet override Given 10/14/2017 7:31 PM CDT 100 mg traMADol (ULTRAM) tablet 50 mg 50 mg, oral, 4 times daily PRN, 1st line for pain, Starting on Wed10/13/17 at 1644 Given 10/14/2017 4:17 AM CDT 50 mg Given 10/13/2017 5:09 PM CDT 50 mg vancomycin 500 mg in 100 mL sodium chloride 0.9% (premix) 500 mg (rounded from 621 mg = 15 mg/kg ? 41.4 kg), intravenous, Administer over 60 Minutes, Every 24 hours, First dose on Wed10/12/17 at 2200, Indications: Abdominal/Pelvic Infection, Pneumonia, AspirationIndications:Abdominal/Pelvic Infection,Pneumonia, Aspiration Given 10/13/2017 9:13 PM CDT 500 mg Given 10/12/2017 10:29 PM CDT 500 mg documented in this encounter Active and Recently Administered Medications Times are shown in CDT. Scheduled Medication Order 10/12/2017 10/13/2017 10/14/2017 albumin 25 % bottle 25 g (COMPLETED) 25 g, intravenous, Once, On Wed10/12/17 at 0715, For 1 dose 0642 (New Bag - Provider: Shavon Villaseñor, RN) albumin 25 % bottle 25 g 25 g, intravenous, Administer over 1 Hours, Every 8 hours scheduled, First dose on Wed10/12/17 at 1400 1420 (New Bag - Provider: Ronan Grewal, ALEJANDRO)2140 (New Bag - Provider: Shavon Villaseñor, RN) 0508 (New Bag - Provider: Shavon Villaseñor, RN)1411 (New Bag - Provider: Deb Salazar, ALEJANDRO)2114 (New Bag - Provider: Deb Dwyer RN) 0905 (New Bag - Provider: Manav Goss, ALEJANDRO)1604 (New Bag - Provider: Manav Goss, ALEJANDRO) calcium gluconate 2 g in sodium chloride 0.9% 100 mL IVPB (COMPLETED) 2 g, intravenous, Once, On Wed10/12/17 at 1730, For 1 dose 1739 (New Bag - Provider: Ronan Grewal RN) cefTRIAXone (ROCEPHIN) 1000 mg in 10 mL sterile water (premix) 1,000 mg, intravenous, Administer over 4 Minutes, Every 24 hours scheduled, First dose on Wed10/12/17 at 1500, Indications: sbp 1551 (New Bag - Provider: Ronan Grewal, ALEJANDRO) 0841 (New Bag - Provider: Deb Salazar, ALEJANDRO) 0857 (New Bag - Provider: Manav Goss, ALEJANDRO) folic acid (FOLVITE) tablet 1 mg 1 mg, oral, Daily, First dose on Wed10/12/17 at 0900 2008 (Not Given - Provider: Ronan Grewal RN - Reason: Patient/family refused) 0847 (Given - Provider: Deb Salazar RN) 0858 (Given - Provider: Manav Emmanuel Culiberk, RN) ipratropium-albuterol (DUO-NEB) 0.5-2.5 mg/3 mL nebulizer solution 3 mL 3 mL, nebulization, Every 6 hours (respiratory care faculty), First dose on Wed10/12/17 at 2230, Indications: Chronic Obstructive Pulmonary Disease with Bronchospasms 2220 (Given - Provider: Verónica Castañeda, TEST ENGINEERING INTERN) 0230 (Given - Provider: Verónica Castañeda, TEST ENGINEERING INTERN)0817 (Given - Provider: Michaelle Schumacher, TEST ENGINEERING INTERN)1424 (Given - Provider: Michaelle Schumacher TEST ENGINEERING INTERN)2005 (Given - Provider: Varun Sylvester, TEST ENGINEERING INTERN) 0220 (Given - Provider: Varun Sylvester, EL)0818 (Given - Provider: Serge Moya, EL)1452 (Given - Provider: Serge Moya RRT) magnesium sulfate 2 g in 50 mL (premix) (COMPLETED) 2 g, intravenous, Administer over 60 Minutes, Once, On Wed10/12/17 at 0400, For 1 dose, X 1 dose per pharmacy electrolyte replacement protocol for magnesium 1.7 on 10/12 0129 0317 (New Bag - Provider: Shavon Villaseñor RN) metroNIDAZOLE (FLAGYL) 500 mg/100 mL in sodium chloride (premix) 500 mg 500 mg, intravenous, at 100 mL/hr, Administer over 60 Minutes, Every 12 hours scheduled, First dose on Wed10/11/17 at 2100, Room temperature only, Indications: Abdominal/Pelvic Infection 0944 (New Bag - Provider: Ronan Grewal RN)2043 (New Bag - Provider: Shavon Villaseñor RN) 0852 (New Bag - Provider: Deb Salazar, ALEJANDRO)211 (New Bag - Provider: Deb Dwyer RN) 0858 (New Bag - Provider: Manav Goss, ALEJANDRO) midodrine (PROAMATINE) tablet 5 mg 5 mg, oral, 3 times daily, First dose on Wed10/12/17 at 0900, Indications: Symptomatic Orthostatic Hypotension 0943 (Given - Provider: Ronan Grewal RN)1604 (Given - Provider: Ronan Grewal RN)2213 (Not Given - Provider: Shavon Villaseñor RN - Reason: Patient/family refused - Comment: can't swallow it.) 0841 (Given - Provider: Deb Salazar RN)1554 (Given - Provider: Deb Salazar RN)2136 (Given - Provider: Deb Dweyr RN) 0900 (Given - Provider: Manav Goss, ALEJANDRO)1613 (Given - Provider: Manav Goss, ALEJANDRO) multivit csxyumem-tegd-YF-calcium (THERA-M) tablet 1 tablet 1 tablet, oral, Daily, First dose on Wed10/12/17 at 0900, Indications: Vitamin Deficiency Prevention 2009 (Not Given - Provider: Ronan Grewal RN - Reason: Patient/family refused) 1028 (Not Given - Provider: Deb Salazar RN - Reason: Patient/family refused - Comment: unable to swallow-unable to crush-patient refused) 0901 (Given - Provider: Manav Goss RN) ondansetron (ZOFRAN) injection 4 mg (COMPLETED) 4 mg, intravenous, Once, On Wed10/12/17 at 0030, For 1 dose 0044 (Given - Provider: Shavon Villaseñor RN) pantoprazole (PROTONIX) injection 80 mg 80 mg, intravenous, Daily, First dose on Wed10/12/17 at 0900, Reconstitute each 40 mg vial with 10 ml of NS, administer IV push over at least 2 minutes. Reconstituted solution stable for 2 hours at room temp. Flush IV line before and after administration with D5W, NS, or LR., , Indications: Treatment of Non-Bleeding Gastric Disorder 1010 (Given - Provider: Ronan Grewal RN) 0841 (Given - Provider: Deb Salazar, ALEJANDRO) 0901 (Given - Provider: Manav Goss RN) piperacillin-tazobactam (ZOSYN) 2.25 g in 50 mL dextrose (premix) (CANCELED) 2.25 g, intravenous, Every 6 hours scheduled, First dose (after last modification) on Wed10/12/17 at 1200, Zosyn adjusted per renal protocol for CrCl 20-39 ml/min for indication other than HCAP (Estimated Creatinine Clearance: 31.5 mL/min (A) (by C-G formula based on SCr of 1.32 mg/dL (H)).), Indications: Abdominal/Pelvic Infection 1222 (New Bag - Provider: Deb Salazar RN) piperacillin-tazobactam (ZOSYN) 3.375 g in 50 mL dextrose (premix) (CANCELED) 3.375 g, intravenous, Every 6 hours scheduled, First dose (after last reorder) on Wed10/12/17 at 0145, Indications: Abdominal/Pelvic Infection 0130 (New Bag - Provider: Shavon Villaseñor, ALEJANDRO)0603 (New Bag - Provider: Shavon Villaseñor RN) potassium chloride 40 mEq in sodium chloride 0.9% 100 mL IVPB (COMPLETED) 40 mEq, intravenous, at 25 mL/hr, Administer over 4 Hours, Once, On Wed10/13/17 at 0715, For 1 dose, Central line only, Indications: hypokalemia 0752 (New Bag - Provider: Deb Salazar RN) potassium chloride 40 mEq in sodium chloride 0.9% 500 mL IVPB (COMPLETED) 40 mEq, intravenous, at 130 mL/hr, Administer over 4 Hours, Once, On Wed10/12/17 at 1400, For 1 dose 1521 (New Bag - Provider: Ronan Grewal RN - Comment: no iv site available) potassium chloride ER (KLOR-CON,K-DUR) extended release tablet 40 mEq (COMPLETED) 40 mEq, oral, Once, On Lida 10/14/17 at 0800, For 1 dose, Potassium chloride 40 meq orally X 1 dose per pharmacy electrolyte replacement protocol for potassium = 3.4 on 10/14/17 Do not crush or chew 0905 (Given - Provider: Manav Goss RN) sodium chloride 0.9% flush 5-10 mL 5-10 mL, intra-catheter, Every 12 hours scheduled, First dose on Wed10/12/17 at 0900, Flush volume based on line type, size, and protocol., Indications: Flushing 1119 (Not Given - Provider: Ronan Grewal RN - Reason: Other - Comment: IV infusing)2044 (Given - Provider: Shavon Villaseñor RN) 0847 (Given - Provider: Deb Salazar, RN)211 (Given - Provider: Deb Dwyer, ALEJANDRO) 09 (Given - Provider: Manav Goss RN) vancomycin 500 mg in 100 mL sodium chloride 0.9% (premix) 500 mg (rounded from 621 mg = 15 mg/kg ? 41.4 kg), intravenous, Administer over 60 Minutes, Every 24 hours, First dose on Wed10/12/17 at 2200, Indications: Abdominal/Pelvic Infection, Pneumonia, Aspiration 2228 (Given - Provider: Shavon Villaseñor RN) 2112 (Given - Provider: Deb Dwyer, ALEJANDRO) Continuous Medication Order 10/12/2017 10/13/2017 10/14/2017 dextrose 5% and sodium chloride 0.45% infusion (CANCELED) 75 mL/hr, intravenous, Continuous, Starting on Wed10/12/17 at 0445 0407 (New Bag - Provider: Shavon Villaseñor RN)0625 (Rate/Dose Change - Provider: Shavon Villaseñor RN)0751 (Rate/Dose Change - Provider: Ronan Grewal, ALEJANDRO) dextrose 5% and sodium chloride 0.45% infusion 75 mL/hr, intravenous, Continuous, Starting on Wed10/12/17 at 1745 1827 (New Bag - Provider: Ronan Grewal, ALEJANDRO) 0000 (Rate/Dose Verify - Provider: Deb Dwyer RN)1117 (New Bag - Provider: Deb Salazar RN)2000 (Rate/Dose Verify - Provider: Deb Dwyer RN)2100 (Rate/Dose Verify - Provider: Deb Dwyer, ALEJANDRO)2200 (Rate/Dose Verify - Provider: Deb Dwyer, ALEJANDRO)2300 (Rate/Dose Verify - Provider: Deb Dwyer, ALEJANDRO) 0000 (Rate/Dose Verify - Provider: Deb Dwyer RN)0100 (Rate/Dose Verify - Provider: Deb Dwyer RN)0200 (Rate/Dose Verify - Provider: Deb Dwyer RN)0300 (Rate/Dose Verify - Provider: Deb Dwyer RN)0420 (Rate/Dose Verify - Provider: Deb Dwyer RN)0512 (New Bag - Provider: Deb Dwyer RN)0800 (Rate/Dose Verify - Provider: Manav Goss, RN)1200 (Rate/Dose Verify - Provider: Manav Goss, RN)1600 (Rate/Dose Verify - Provider: Manav Goss, RN)1603 (New Bag - Provider: Manav Goss, RN) norepinephrine (LEVOPHED) 8 mg in dextrose 5% 250 mL (0.032 mg/mL) infusion (CANCELED) 0.01-2 mcg/kg/min ? 41.4 kg (0.7763-155.25 mL/hr, rounded to 0.78-155.25 mL/hr), 32 mcg/mL, intravenous, Titrated, Starting on Wed10/12/17 at 1715, Until Wed10/12/17 at 2312, Initial rate: 0.05 mcg/kg/min, Titrate: Up/Down, Titrate by: 0.01 mcg/kg/min, Every: 2 minutes, Goal: SBP, SBP Goal: Other (comment) / 90, Routine 1740 (New Bag - Provider: Ronan Grewal RN)1745 (Rate/Dose Change - Provider: Ronan Grewal RN)1800 (Rate/Dose Change - Provider: Ronan Grewal RN)1815 (Rate/Dose Change - Provider: Ronan Grewal RN)1830 (Rate/Dose Change - Provider: Ronan Grewal RN)1845 (Rate/Dose Change - Provider: Ronan Grewal RN)2100 (Rate/Dose Change - Provider: Shavon Villaseñor, ALEJANDRO)2115 (Rate/Dose Change - Provider: Shavon Villaseñor, RN)2130 (Rate/Dose Change - Provider: Shavon Villaseñor, RN)2145 (Rate/Dose Change - Provider: Shavon Villaseñor, ALEJANDRO)2200 (Rate/Dose Change - Provider: Shavon Villaseñor RN)2245 (Rate/Dose Change - Provider: Shavon Villaseñor, RN)2300 (Rate/Dose Change - Provider: Shavon Villaseñor, RN) norepinephrine (LEVOPHED) 8 mg in dextrose 5% 250 mL (0.032 mg/mL) infusion 0.01-2 mcg/kg/min ? 41.4 kg (0.7763-155.25 mL/hr, rounded to 0.78-155.25 mL/hr), 32 mcg/mL, intravenous, Titrated, Starting on Wed10/12/17 at 2345, Until Wed10/14/17 at 2142, Initial rate: 0.05 mcg/kg/min, Titrate: Up/Down, Titrate by: 0.01 mcg/kg/min, Every: 2 minutes, Goal: SBP, SBP Goal: Other (comment) / 80 or above, Routine 0724 (Restarted - Provider: Deb Salazar RN)1117 (New Bag - Provider: Deb Salazar RN)1400 (Rate/Dose Change - Provider: Deb Salazar RN)1500 (Rate/Dose Change - Provider: Deb Salazar RN)1600 (Rate/Dose Change - Provider: Deb Salazar RN)1630 (Rate/Dose Change - Provider: Deb Salazar RN)1700 (Rate/Dose Change - Provider: Deb Salazar RN)1730 (Rate/Dose Change - Provider: Deb Salazar RN)1800 (Rate/Dose Change - Provider: Deb Salazar RN)1830 (Rate/Dose Change - Provider: Deb Salazar RN)2000 (Rate/Dose Verify - Provider: Deb Dwyer, ALEJANDRO)2100 (Rate/Dose Verify - Provider: Deb Dwyer, ALEJANDRO)2200 (Rate/Dose Verify - Provider: Deb Dwyer, RN)2300 (Rate/Dose Verify - Provider: Deb Dwyer RN - Comment: [Action automatically changed]) 0000 (Rate/Dose Change - Provider: Deb Dwyer RN)0002 (Rate/Dose Verify - Provider: Deb Dwyer RN - Comment: [Action automatically changed])0100 (Rate/Dose Verify - Provider: Deb Dwyer RN)0133 (Rate/Dose Change - Provider: Deb Dwyer RN)0200 (Rate/Dose Verify - Provider: Deb Dwyer RN)0300 (Rate/Dose Verify - Provider: Deb Dwyer RN)0341 (Rate/Dose Change - Provider: Deb Dwyer RN)0420 (Rate/Dose Verify - Provider: Deb Dwyer RN)0514 (Rate/Dose Change - Provider: Deb Dwyer RN)0800 (Rate/Dose Verify - Provider: Manav Goss RN)1200 (Rate/Dose Verify - Provider: Manav Goss RN)1600 (Rate/Dose Verify - Provider: Manav Goss RN) phenylephrine (AUGIE-SYNEPHRINE) 25 mg in sodium chloride 0.9% 250 mL (0.1 mg/mL) infusion (CANCELED) 0.1-4 mcg/kg/min ? 41.4 kg (2.484-99.36 mL/hr, rounded to 2.48-99.36 mL/hr), 100 mcg/mL, intravenous, Titrated, Starting on Wed10/12/17 at 0800, Until Wed10/12/17 at 1650, Indications: If BP not improved with albumin, Initial rate: 0.5 mcg/kg/min, Titrate: Up/Down, Titrate by: 0.1 mcg/kg/min, Every: 2 minutes, Goal: SBP / 80, SBP Goal: Other (comment) / 80, Routine 0751 (New Bag - Provider: Ronan Grewal RN)0840 (Rate/Dose Change - Provider: Ronan Grewal RN)0900 (Rate/Dose Change - Provider: Ronan Grewal, ALEJANDRO)1000 (Rate/Dose Change - Provider: Ronan Grewal RN)1015 (Rate/Dose Change - Provider: Ronan Grewal RN)1030 (Rate/Dose Change - Provider: Ronan Grewal RN)1045 (Rate/Dose Change - Provider: Ronan Grewal RN)1047 (Rate/Dose Change - Provider: Ronan Greawl RN)1049 (Rate/Dose Change - Provider: Ronan Grewal RN)1051 (Rate/Dose Change - Provider: Ronan Grewal RN)1053 (Rate/Dose Change - Provider: Ronan Grewal RN)1055 (Rate/Dose Change - Provider: Ronan Grewal RN)1057 (Rate/Dose Change - Provider: Ronan Grewal RN)1059 (Rate/Dose Change - Provider: Ronan Grewal RN)1115 (Rate/Dose Change - Provider: Ronan Grewal RN)1519 (New Bag - Provider: Ronan Grewal RN) propofol (DIPRIVAN) IV 5-50 mcg/kg/min ? 44.7 kg (1.341-13.41 mL/hr, rounded to 1.34-13.41 mL/hr), 10 mg/mL, intravenous, Titrated, Starting on Ldia 10/14/17 at 2000, Until Lida 10/14/17 at 2141, Initial dose: 10 mcg/kg/min, Titrate: Up/Down, Titrate by: 10 mcg/kg/min, Every: 10 minutes, Goal: RASS, RASS Goal: 0, -1, -2, Do not administer through the same I.V. catheter with blood or plasma. Tubing and any unused portions of propofol vials should be discarded after 12 hours. Room temperature only, Routine 1930 (New Bag - Provider: Manav Goss, ALEJANDRO) sodium chloride 0.9% infusion (CANCELED) 125 mL/hr, intravenous, Continuous, Starting on Wed10/12/17 at 0030 0008 (New Bag - Provider: Shavon Villaseñor, ALEJANDRO) PRN Medication Order 10/12/2017 10/13/2017 10/14/2017 ALPRAZolam (XANAX) tablet 0.25 mg 0.25 mg, oral, 3 times daily PRN, anxiety, Starting on Wed10/12/17 at 0101 2007 (Given - Provider: Deb Dwyer RN) 0512 (Given - Provider: Deb Dwyer RN) HYDROmorphone (DILAUDID) injection 0.2 mg (CANCELED) 0.2 mg, intravenous, Every 6 hours PRN, 1st line for pain, Starting on Wed10/12/17 at 0110, Indications: Pain 0144 (Given - Provider: Shavon Villaseñor RN)1815 (Given - Provider: Ronan Grewal RN) 0725 (Not Given - Provider: Deb Salazar RN - Reason: Other - Comment: given 10/12) HYDROmorphone (DILAUDID) injection 0.2 mg (CANCELED) 0.2 mg, intravenous, Every 4 hours PRN, 1st line for pain, Starting on Wed10/12/17 at 2300, Indications: Pain 2257 (Given - Provider: Shavon Villaseñor RN) 0309 (Given - Provider: Shavon Villaseñor RN)1254 (Given - Provider: Deb Salazar RN) HYDROmorphone (DILAUDID) injection 0.2 mg 0.2 mg, intravenous, Every 4 hours PRN, 1st line for pain, Starting on Wed10/13/17 at 1645, Dilute with 5-10 ml NS, give slow IVpush over at least 2 minutes., , Indications: breakthrough pain 2009 (Given - Provider: Deb Dwyer RN - Comment: back pain ) 1206 (Given - Provider: Manav Goss RN) metoclopramide (REGLAN) injection 5 mg 5 mg, intravenous, Administer over 5 Minutes, Every 8 hours PRN, other, nausea and vomiting, Starting on Wed10/11/17 at 2352 0006 (Given - Provider: Shavon Villaseñor RN) ondansetron (ZOFRAN) injection 4 mg 4 mg, intravenous, Every 4 hours PRN, nausea, vomiting, Starting on Wed10/12/17 at 1702, Give IV push over at least 2 minutes. 1841 (Given - Provider: Deb Salazar RN) 0120 (Given - Provider: Deb Dwyer, ALEJANDRO)1008 (Given - Provider: Manav Goss, ALEJANDRO) prochlorperazine (COMPAZINE) injection 10 mg 10 mg, intravenous, Every 6 hours PRN, nausea, vomiting, Starting on Wed10/12/17 at 0112, Indications: Nausea and Vomiting 0323 (Given - Provider: Shavon Villaseñor, ALEJANDRO)1243 (Given - Provider: Ronan Grewal RN) sodium chloride 0.9% flush 5-20 mL 5-20 mL, intra-catheter, As needed, line care, with each use, Starting on Wed10/12/17 at 0716, Flush volume based on line type, size, and protocol., Indications: Flushing 0309 (Given - Provider: Shavon Villaseñor RN)0508 (Given - Provider: Shavon Villaseñor RN) sodium chloride 0.9% infusion 10 mL/hr, intravenous, Continuous PRN, Hang bag with transfusion; infuse to keep IV line open in the event of a transfusion reaction., Starting on Wed10/13/17 at 0758 1123 (New Bag - Provider: Deb Salazar RN) traMADol (ULTRAM) tablet 50 mg 50 mg, oral, 4 times daily PRN, 1st line for pain, Starting on Wed10/13/17 at 1644 1709 (Given - Provider: Deb Salazar RN) 0417 (Given - Provider: Deb Dwyer RN - Comment: back pain ) No Frequency Medication Order 10/12/2017 10/13/2017 10/14/2017 etomidate (AMIDATE) 2 mg/mL injection - ADS Override Pull (COMPLETED) Starting on Wed10/14/17 at 1813, For 1 dose, ANA LAURA ALLEN GURVINDER: cabinet override 1929 (Given - Provid er: Manav Goss, ALEJANDRO) propofol (DIPRIVAN) 10 mg/mL IV - ADS Override Pull (COMPLETED) Starting on Wed10/14/17 at 1813, For 1 dose, ANA LAURA ALLEN GURVINDER: cabinet override Room temperature only 1931 (Given - Provid er: Manav Goss RN) succinylcholine (ANECTINE) 20 mg/mL injection - ADS Override Pull (COMPLETED) Starting on Lida 10/14/17 at 1813, For 1 dose, ANA LAURA ALLEN, GURVINDER: joaquint override 1931 (Given - Provid er: Manav Goss RN) documented in this encounter Orders Medications Ordered That William ht Not Have Been Administered Count Last Ordered Date First Ordered Date potassium chloride 40 mEq in sodium chloride 0.9% 100 mL IVPB 1 10/13/2017 potassium chloride ER (KLOR- CON,K-DUR) extended release tablet 40 mEq 2 10/13/2017 8 albuterol (PROVENTIL,VENTOLI N) 2.5 mg /3 mL (0.083 %) nebulizer solution 2.5 mg 1 10/12/2017 enoxaparin (LOVENOX) syringe 30 mg 1 2017 enoxaparin (LOVENOX) syringe 40 mg 1 2017 ipratropium (ATROVENT) 0.02 % nebulizer solution 0.5 mg 1 10/12/2017 lidocaine PF (XYLOCAINE) 10 mg/mL (1 %) preservative free injection 10-20 mg 1 10/12/2017 sodium chloride 0.9% infusion 1 10/12/2017 Imaging Orders Without Results Count Last Order ed Date First Ordered Date CHEST PHYSIO THERAPY 1 10/13/2017 Nursing Count Last Ordered Date First Orde red Date INSERT ATKINSON CATHETER 1 10/13/2017 WEIGH PATIENT 2 10/12/2017 10/11/[address] SEQUENTIAL COMPRESSION DEVICE 1 10/11 Consult Count Last Ordered Date First Orde red Date IP CONSULT TO NUTRITION SERVICES 1 10/13/19 18 IP CONSULT TO SPIRITUAL CARE 1 10/12/2017 IV Count Last Ordered Date First Orde red Date SALINE LOCK IV 1 10/11/2017 Admission Count Last Ordered Date First Orde red Date ASSIGN PATIENT STATUS 1 10/11/2017 CORE MEASURES Count Last Ordered Date First Ord ered Date REASON FOR NO VTE PROPHYLAXI S - HOSPITAL ADMISSION - MEDICATIONS 2 10/12/2017 10/11/2017 ADT Patient Update Count Last Ordered Date Firs t Ordered Date ED IP DECISION TO ADMIT 1 10/11/2017 documented in this encounter Care Teams [employer]er Relationship Specialty Start Date End Date Fernie Barfield DO PCP - General 02/04/17 documented as of this encounter
--- OUTSIDE RECORDS SUMMARY | 2024-05-03 11:23 | XMS_ITS | Encounter Summary ---
Author Organization [facility] Address [address] [place] [address] Care Team Providers [employer]er Driver Name Role Phone Unavailable Primary Care Provider Unavailabl e Encounter Details Date Type Department Care Team (Latest Contact Info) Description 12/27/2012 11:19 AM CDT - 12/27/2012 11:59 PM CDT Hospital Encounter [facility] Meghan Avilez MD [address] [place] [phone] Disturbance of skin sensation; Essential hypertension; Pure hypercholesterolemia Social History Tobacco Use Types Packs/Day Years Used Date Smoking Tobacco: Never Assessed Comments Unknown Sex and Gender Information Value Date Recorded Sex Assigned at Not on file 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 Gender Identity Not on file Sexual Orientation Not on file documented as of this encounter Plan of Treatment Not on file documented as of this encounter Procedures Procedure Name Priority Date/Time Associated Diagnosis Comments SERUM THYROID-STIMULATING HORMONE (TSH) Routine 12/27/2012 11:35 AM CDT SERUM HEPATIC FUNCTION PANEL Routine 12/27/2012 11:35 AM CDT SERUM COMPREHENSIVE METABOLIC PANEL Routine 12/27/2012 11:35 AM CDT BLOOD WBC CELL MORPHOLOGIC EXAM, AUTO Routine 12/27/2012 11:35 AM CDT BLOOD CELL COUNT (CBC) Routine 3 11:35 AM CDT DISCHARGE LABORATORY CUMULATIVE REPORT Routine 12/27/2012 12:00 AM CDT documented in this encounter Results * Serum thyroid-stimulating hormone (TSH) (12/27/2012 11:35 AM CDT) TSH 1.23 0.35 - 4.80 mcIUnits/ml HISTORICAL RESULTS Serum 12/27/2012 11:3 5 AM CDT Meghan Avilez MD LAB BLOOD ORDERABLES Final Re sult Performing Organization Address City/State/[facility] Co de Phone Number HISTORICAL RESULTS * (ABNORMAL) Blood cell count (CBC) (12/27/2012 11:35 AM CDT) WBC 7.5 4.0 - 10.5 K/cumm HISTORICAL RESULTS RBC 4.43 4.20 - 5.40 M/cumm HISTORICAL RESULTS Hgb 15.1 12.0 - 16.0 g/dl HISTORICAL RESULTS Hct 45.0 37.0 - 47.0 % HISTORICAL RESULTS MCV 101.6(H) 77.0 - 97.0 fl HISTORICAL RESULTS MCH 34.1(H) 23.0 - 34.0 pg HISTORICAL RESULTS MCHC 33.6 32.0 - 36.0 g/dl HISTORICAL RESULTS Rdw 13.4 11.5 - 14.5 % HISTORICAL RESULTS Platelets 322 150 - 451 K/cumm HISTORICAL RESULTS MPV 9.3 7.4 - 10.4 fl HISTORICAL RESULTS Blood specimen (specimen) 12/27/2012 11:35 AM CDT Meghan Avilez MD LAB BLOOD ORDERABLES Final Re sult HISTORICAL RESULTS * (ABNORMAL) Blood WBC cell morphologic exam, auto (12/27/2012 11:35 AM CDT) Eosinophils, abs 0.1 0.0 - 0.7 cells/cum m HISTORICAL RESULTS Lymphocytes 17.4(L) 25.0 - 33.0 % HISTORICAL RESULTS Basophils, abs 0.0 0.0 - 0.2 K/cumm HISTORICAL RESULTS Monos 8.1 1.0 - 13.0 % HISTORICAL RESULTS Immature granulocyte, abs 0.0 0.0 - 0.0 K/cumm HISTORICAL RESULTS Neutrophils 72.4(H) 54.0 - 69.0 % HISTORICAL RESULTS Eosinophils 1.5 0.0 - 10.0 % HISTORICAL RESULTS Basophils 0.3 0.0 - 1.0 % HISTORICAL RESULTS Immature granulocytes 0.3 0.0 - 1.0 % HISTORICAL RESULTS Lymphocytes, abs 1.3 1.2 - 3.4 K/cumm HISTORICAL RESULTS Monocytes, absolute 0.6(L) 1.1 - 1.9 K/cumm HISTORICAL RESULTS Neutrophils, abs 5.5 1.4 - 6.5 K/cumm HISTORICAL RESULTS Blood specimen (specimen) 12/27/2012 11:35 AM CDT us Samer Tyler VERDIN LAB BLOOD ORDERABLES Final Re sult HISTORICAL RESULTS * (ABNORMAL) Serum comprehensive metabolic panel (12/27/2012 11:35 AM CDT) BUN 8.0 6.0 - 23.0 mg/dl HISTORICAL RESULTS Sodium 141 134 - 143 mmol/L HISTORICAL RESULTS Potassium, sr 3.5 3.4 - 5.0 mmol/L HISTORICAL RESULTS Chloride 104 99 - 108 mmol/L HISTORICAL RESULTS CO2 30 23 - 32 mmol/L HISTORICAL RESULTS Glucose, fasting 114(H) 70 - 110 mg/dl HISTORICAL RESULTS Creatinine 0.89 0.60 - 1.30 mg/dl HISTORICAL RESULTS Comment: eGFR: >70 ml/min/1.73sq.m if non -Emirati. eGFR: >70 ml/min/1.73sq.m if -Emirati. AVE GFR for 50-59 yr. age group: ??93 ml/min/1.73sq.m Calculated using MDRD Equation BUN/creat ratio 9(L) 10 - 20 HIST ORICAL RESULTS A. gap 11 7 - 14 mmol/L HISTORICAL RESULTS Protein, sr 7.4 6.4 - 8.0 g/dl HISTORICAL RESULTS Alb 4.0 3.3 - 4.5 g/dl HISTORICAL RESULTS Alb/glob ratio 1.2 1.1 - 1.8 HISTO RICAL RESULTS Calcium 9.0 8.6 - 9.8 mg/dl HISTORICAL RESULTS Bilirubin 0.7 0.0 - 1.1 mg/dl HISTORICAL RESULTS Alk phos 154(H) 44 - 125 Units/L HISTORICAL RESULTS AST 47(H) 5 - 40 Units/L HISTORICAL RESULTS Comment:AST - NOTE REFERENCE RANGE CHANGE ALT 41 15 - 70 Units/L HISTORICAL RESULTS Serum 12/27/2012 11:3 5 AM CDT Meghan Avilez MD LAB BLOOD ORDERABLES Final Re sult Performing Organization Address City/[facility] Co de Phone Number HISTORICAL RESULTS * (ABNORMAL) Serum hepatic function panel (12/27/2012 11:35 AM CDT) AST 47(H) 5 - 40 Units/L HISTORICAL RESULTS Comment:AST - NOTE REFERENCE RANGE CHANGE ALT 41 15 - 70 Units/L HISTORICAL RESULTS Alk phos 154(H) 44 - 125 Units/L HISTORICAL RESULTS Bilirubin 0.7 0.0 - 1.1 mg/dl HISTORICAL RESULTS Bilirubin, direct 0.1 0.0 - 0.3 mg/dl HISTORICAL RESULTS Alb 4.0 3.3 - 4.5 g/dl HISTORICAL RESULTS Protein, sr 7.4 6.4 - 8.0 g/dl HISTORICAL RESULTS Serum 12/27/2012 11:3 5 AM CDT Meghan Avilez MD LAB BLOOD ORDERABLES Final Re sult Performing Organization Address City/State/[facility] Co de Phone Number HISTORICAL RESULTS * Discharge Laboratory Cumulative Report (12/27/2012 12:00 AM CDT) 12/27/2012 Narrative HISTORICAL RESULTS - 12/29/2012 12:25 AM CDT Patient No: [id number] ? [facility] Patient Name: ROSA LI ?[facility] Age: 52 YRS ?: 1960 ?Sex:F ?[address] )[phone] ?? Adm Dt: 12/27/2012 ?[place], [place] ??[address] Created: 12/29/2012 ??0025 ?? Pt. Type: R ? Discharge Dt: 12/27/2012 ? Pathologists: Jasmin Nino MD Admit Dr. Vasques Dr: MEGHAN AVILEZ MD ? BLOOD CELL COUNTS ?Collection Date: ?12/27/12 ?Collection Time: ?1135 ? Ref Range: ?? Units: [4.00-10.50] /CMM ? WBC X 10^3 ?7.53 [4.20-5.40] ??/CMM ? RBC X 10^6 ?4.43 [12.0-16.0] ??G/DL ? HGB ? 15.1 [37.0-47.0] ??% ?HCT ? 45.0 [77.0-97.0] ??FL ? MCV ?101.6 H [23.0-34.0] ??PG ? MCH ? 34.1 H [32.0-36.0] ??% ?MCHC ?33.6 [11.5-14.5] ??% ?RDW ? 13.4 [150-451] ?? /CMM ? PLT X 10^3 ? 322 ?BLOOD CELL DIFFERENTIAL ?Collection Date: ?12/27/12 ?Collection Time: ?1135 ? Ref Range: ?? Units: [54.0-69.0] ??% ?NEUTROPHILS ? 72.4 H [25.0-33.0] ??% ?LYMPHOCYTES ? 17.4 L [1.0-13.0] ??% ?MONOCYTES ?8.1 [0.0-10.0] ??% ?EOSINOPHILS ?1.5 [0.0-1.0] ?? % ?BASOPHILS ?0.3 ? /CMM ? A LYMPHOCYTE ? 1.3 [0.0-1.0] ?? % ?IMM GRAN % ? 0.3 [0.00-0.02] ??/CMM ? A IMM GRAN ?0.02 [1.1-1.9] ?? /CMM ? A MONOCYTE ? 0.6 L [1.4-6.5] ?? /CMM ? A NEUTROPHIL ? 5.5 [0.0-0.7] ?? /CMM ? A EOSINOPHIL ? 0.1 [0.0-0.2] ?? /CMM ? A BASOPHIL ? 0.0 Footnotes and Symbols: L = Low, H = High ?? CONTINUED ?Page: ?? 1 Patient No: [id number] ? [facility] Patient Name: ROSA LI ?[facility] Age: 52 YRS ?: 1960 ?Sex:F ?[address] )[phone] ?? Adm Dt: 12/27/2012 ?[place], [place] ??[address] Created: 12/29/2012 ??0025 ?? Pt. Type: R ? Discharge Dt: 12/27/2012 ? Pathologists: Jasmin Nino MD Admit Dr. Vasques Dr: MEGHAN AVILEZ MD ? GENERAL CHEMISTRY ?Collection Date: ?12/27/12 ?Collection Time: ?1135 ? Ref Range: ?? Units: [134-143] ?? MMOL/L ? SODIUM ? 141 [3.4-5.0] ?? MMOL/L ? POTASSIUM ?3.5 [99.0-108.0] MMOL/L ? CHLORIDE ? 104.0 [23.0-32.0] ??MMOL/L ? TOTAL CO2 ? 29.8 ?? [7-14] ?MMOL/L ? ANION GAP ? 11 ??[70-110] ?? MG/DL ?GLUCOSE FASTING ?114 H [6.4-8.0] ?? G/DL ? TOTAL PROTEIN ?7.4 [6.4-8.0] ?? G/DL ? TOTAL PROTEIN ?7.4 [3.3-4.5] ?? G/DL ? ALBUMIN ?4.0 [3.3-4.5] ?? G/DL ? ALBUMIN ?4.0 [1.1-1.8] ?A/G RATIO ?1.2 [8.6-9.8] ?? MG/DL ?CALCIUM ?9.0 [0.0-0.3] ?? MG/DL ?BILI DIRECT ?0.1 [0.0-1.1] ?? MG/DL ?BILI TOTAL ? 0.7 [0.0-1.1] ?? MG/DL ?BILI TOTAL ? 0.7 ??[44-125] ?? U/L ?ALK PHOS ? 154 H ??[44-125] ?? U/L ?ALK PHOS ? 154 H ?? [5-40] ?U/L ?AST(SGOT) ? 47 Hf ?? [5-40] ?U/L ?AST(SGOT) ? 47 Hf ??[15-70] ?U/L ?ALT(SGPT) ? 41 f ??[15-70] ?U/L ?ALT(SGPT) ? 41 f [6.0-23.0] ??MG/DL ?BUN ?8.0 ??[10-20] ? B/C RATIO ?9 L Footnotes and Symbols: L = Low, H = High, f = Footnote AST(SGOT) (10/26/12 -- Current) AST ??- NOTE REFERENCE RANGE CHANGE ALT(SGPT) (12/06/12 -- Current) ?? CONTINUED ?Page: ?? 2 Patient No: [id number] ? [facility] Patient Name: ROSA LI ?[facility] Age: 52 YRS ?: 1960 ?Sex:F ?[address] )[phone] ?? Adm Dt: 12/27/2012 ?[place], [place] ??[address] Created: 12/29/2012 ??0025 ?? Pt. Type: R ? Discharge Dt: 12/27/2012 ? Pathologists: Jasmin Nino MD Admit Dr. Vasques Dr: MEGHAN AVILEZ MD ? GENERAL CHEMISTRY ?Collection Date: ?12/27/12 ?Collection Time: ?1135 ? Ref Range: ?? Units: [0.60-1.30] ??MG/DL ?CREATININE ?0.89 f ?12/27/12 1135 eGFR: >70 ml/min/1.73sq.m if non -Emirati. eGFR: >70 ml/min/1.73sq.m if -Emirati. AVE GFR for 50-59 yr. age group: ??93 ml/min/1.73sq.m Calculated using MDRD Equation FOOTNOTE ADDED ON ?? 12/27/12 ?? AT 1303 BY 999 ?THYROID FUNCTION TESTS ?Collection Date: ?12/27/12 ?Collection Time: ?1135 ? Ref Range: ?? Units: [0.35-4.80] ??uIU/ML ? TSH ? 1.23 Footnotes and Symbols: f = Footnote ?? END OF CHART ? Page: ?? 3 us Historical Provider MD LAB BLOOD ORDERABLES Jojo l Result HISTORICAL RESULTS documented in this encounter Visit Diagnoses Diagnosis Disturbance of skin sensation Essential hypertension Unspecified essential hypertension Pure hypercholesterolemia documented in this encounter
--- OUTSIDE RECORDS SUMMARY | 2024-05-03 11:23 | XMS_ITS | Encounter Summary ---
Author Organization [facility] Facility Care Team Providers Care Sales Officer Name Role Phone Unavailable Primary Care Provider Unavailabl e Encounter Details Date Type Department Care Team (Late st Contact Info) Description 04/23/2015 - 04/23/2015 11:59 PM MANAGER SOCIAL RESPONSIBILITY Hospital Encounter [facility] Manav Mills MD [address] [facility] [address] Social History Tobacco Use Types Packs/Day Years Used Date Smoking Tobacco: Never Assessed Comments Unknown Sex and Gender Information Value Date Recorded Sex Assigned at Not on file Legal 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
--- OUTSIDE RECORDS SUMMARY | 2024-05-03 11:23 | XMS_ITS | Encounter Summary ---
Author Organization [facility] Healthcare Address [address] [place] [address] Care Team Providers Care Programs Assistant Name Role Phone Fernie Barfield DO Primary Care Provider [phone] Reason for Visit * Reason Comments Nausea Vomiting Encounter Details Date Type Department Care Team (Late st Contact Info) Description 08/23/2017 4:22 PM CDT - 08/25/2017 11:35 AM CDT Hospital Encounter [facility] [address] [place] [address] Billy Maher MD [address] [address] Chantelle Nowak MD [address] [facility] [address] [place] [address] Amy Ferguson MD [address] [facility] [address] [place] [address] [place] [id number] [address] Intractable vomiting with nausea, unspecified vomiting type (Primary Dx); 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 (CMS/HCC); Malnutrition compromising bodily function (CMS/HCC); Malignant cachexia (CMS/HCC) Discharge Disposition: Discharge to home or self care Social History Tobacco Use Types Packs/Day Years Used Date Smoking Tobacco: Every Day Cigarettes Smokeless Tobacco: Never Alcohol Use Standard Drinks/Week Comments No 0 (1 standard drink = 0.6 oz pur e alcohol) Comments No Sex and Gender Information Value Date Recorded Sex Assigned at Not on file 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 Gender Identity Not on file Sexual Orientation Not on file documented as of this encounter Last Filed Vital Signs Vital Sign Reading Time Taken Comments Blood Pressure 79/44 08/25/2017 8:00 AM CDT Pulse 81 08/25/2017 8:00 AM CDT Temperature 37.9 ??C (100.2 ??F) 08/25/2017 8:00 AM C DT Respiratory Rate 18 08/25/2017 8:00 AM CDT Oxygen Saturation 98% 08/25/2017 8:00 AM CDT Inhaled Oxygen Concentration - - Weight 37.1 kg (81 lb 12.7 oz) 08/23/2017 9:04 P M CDT Height 160 cm (5' 3 ) 08/23/2017 9:04 PM CDT Body Mass Index 14.49 08/23/2017 9:04 PM CDT documented in this encounter Discharge Summaries * Donell Schilling MD - 08/25/2017 10:56 AM CDT Inpatient Discharge Summary BRIEF OVERVIEW Admitting Provider: Chantelle Nowak MD Discharge Provider: Donell Schilling MD Primary Care Physician at Discharge: Fernie Barfield DO [phone] Admission Date: 08/23/2017 Discharge Date: 08/25/2017 Primary Discharge Diagnosis: Principal Problem: Ascites Active Problems: SALGADO (nonalcoholic steatohepatitis) Hypotension Anxiety Chronic hyponatremia Abdominal pain Secondary Discharge Diagnosis: Ascites SALGADO (nonalcoholic steatohepatitis) Hypotension Anxiety Chronic hyponatremia Abdominal pain * No resolved hospital problems. * DETAILS OF HOSPITAL STAY Presenting Problem/History of Present Illness: Ascites Patient is a 56 y.o. female with a PMH of SALGADO with recurrent ascites with a chief complaint of abdominal pain. Per patient she developed abdominal pain with nausea and vomiting 4 days ago. She states the on theday of presentation she had 10 episodes of emesis. She states when she vomits she has pain everywhere in her abdomen chest and throat. Denies any blood in her emesis. Patient states she feels this way when she needs a paracentesis. She is scheduled for paracentesis on Wednesday and has a standing order at [place]. ?? Of note patient has SALGADO and is [facility] She sees Sara Joaquin. She states she was having monthly appointment however was recently switched to every 3 months. Her next appointment is in September. ?? In the ED patient was given Reglan which helped with her discomfort. Patient was admitted for further care. ?? Currently patient states she is feeling better. She states the Reglan is helping. Hospital Course: Patient was admitted to the hospital further evaluation. She has history of SALGADO and follows up at [facility]. Patient was admitted primarily for her ascites. She was having abdominal pain. Patient is now status post paracentesis. 5.3 L were taken off. S/p IV albumin. Patient is not doing much better. Patient wants to be discharged. She states that she will follow up with physicians at [facility]. Test Results Pending at Discharge: Order Current Status Protein, total Collected (08/25/17 0326) Operative Procedures Performed: Other Procedures: none Pertinent Test Results: none Discharge Details Physical Exam at Discharge: Discharge Condition: good Pulse: 81 Resp: 18 BP: (!) 79/44 Temp: 37.9 ??C (100.2 ??F) Weight: 37.1 kg (81 lb 12.7 oz) BP (!) 79/44 (BP Location: Right arm) Pulse 81 Temp 37.9 ??C (100.2 ??F) (Temporal) Resp 18 Ht 160 cm (5' 3 ) Wt 37.1 kg (81 lb 12.7 oz) SpO2 98% BMI 14.49 kg/m?? Pertinent Exam Findings at Discharge: GEN: Alert. NAD HENT: Normocephalic. Atraumatic. CVS: RRR CHEST: Clear bilaterally ABD: soft. ND EXT: no edema Labs at discharge: Recent Results (from the past 24 hour(s)) Cell count and differential, body fluid Collection Time: 08/24/17 11:30 AM Result Value Ref Range Specimen type, fld Paracentesis Color, fld Straw Clarity, fld Cloudy WBC, fld 27.00 /cumm RBC, fld <2,000 /cumm Mononuclear cells, fld 96.3 % Neutrophils, fld 3.7 % Lactate dehydrogenase, body fluid Collection Time: 08/24/17 11:30 AM Result Value Ref Range LD, fld 32 Units/L Fluid type Peritoneal Protein, total Collection Time: 08/24/17 3:41 PM Result Value Ref Range Protein, pl 4.2 (L) 6.5 - 8.5 g/dL CBC with auto differential Collection Time: 08/25/17 3:39 AM Result Value Ref Range WBC 7.7 3.8 - 9.9 K/cumm RBC 2.48 (L) 3.90 - 5.20 M/cumm Hgb 8.0 (L) 11.9 - 15.5 g/dL Hct 22.1 (L) 35.6 - 45.5 % MCV 89.1 81.3 - 96.4 fL MCH 32.3 27.1 - 33.3 pg MCHC 36.2 (H) 32.3 - 35.7 g/dL RDW CV 13.1 11.1 - 14.9 % RDW SD 42.5 35.7 - 48.1 fL Platelets 408 (H) 150 - 400 K/cumm MPV 7.9 (L) 9.1 - 12.3 fL NRBC Abs 0.00 0.00 - 0.01 K/cumm Basic metabolic panel Collection Time: 08/25/17 3:39 AM Result Value Ref Range Sodium 131 (L) 135 - 145 mmol/L Potassium 3.1 (L) 3.3 - 4.9 mmol/L Chloride 93 (L) 97 - 110 mmol/L CO2 27 22 - 32 mmol/L BUN 16 8 - 25 mg/dL Glucose 93 70 - 199 mg/dL Creatinine 1.16 (H) 0.60 - 1.10 mg/dL Calcium 7.9 (L) 8.5 - 10.3 mg/dL Anion Gap 11 2 - 15 mmol/L Differential, auto Collection Time: 08/25/17 3:39 AM Result Value Ref Range Neutrophil absolute 4.81 1.70 - 6.50 K/cumm Immature granulocyte absolute 0.0 0.0 - 0.1 K/cumm Lymphocytes absolute 2 1 - 3 K/cumm Monocyte absolute 0.7 0.2 - 0.8 K/cumm Eosinophils absolute 0.0 0.0 - 0.5 K/cumm Basophils, abs 0.0 0.0 - 0.1 K/cumm Neutrophils 62.7 % Immature granulocytes 0.1 % Lymphocytes 26.7 % Monocytes 9.5 % Eosinophils 0.5 % Basophils 0.5 % eGFR Collection Time: 08/25/17 3:39 AM Result Value Ref Range GFR 53 mL/min/1.73 m2 Discharge Disposition: Discharge to home or self care Full Code Discharge Instructions: Activity Instructions Discharge activity: Resume normal activity Diet Instructions Adult Discharge Diet Diet Type: Return to previous diet Discharge Medications: Your medication list CONTINUE taking these medications ALPRAZolam 0.5 mg tablet Commonly known as: XANAX cyclobenzaprine 10 mg tablet Commonly known as: FLEXERIL folic acid 1 mg tablet Commonly known as: FOLVITE midodrine 5 mg tablet Commonly known as: PROAMATINE multivit nntrwrkv-udmo-UF-calcium 9 mg iron-400 mcg tablet Commonly known as: THERA-M ondansetron 4 mg tablet Commonly known as: ZOFRAN promethazine 25 mg tablet Commonly known as: PHENERGAN thiamine 50 mg tablet Commonly known as: VITAMIN B-1 traMADol 50 mg tablet Commonly known as: ULTRAM VITAMINS AND MINERALS tablet Generic drug: multivitamin,tx-minerals Outpatient Follow-Up: No future appointments. primary care provider Follow up with PCP in 3-5 days Fernie Barfield, [place] [phone] Time Spent on Discharge: Greater than 35 min full code. documented in this encounter Discharge Instructions * Discharge Instr - Other Orders* Raven Goldstein RN - 08/25/2017 11:08 AM CDT If you have any questions or concerns following discharge, please call [facility] at [phone]. documented in this encounter Medications at Time [...] mg total) by mouth daily 07/02/2017 multivit snggvsna-ngau-AU- calcium (THERA-M) 9 mg iron-400 mcg tabletIndications [...] or self care documented in this encounter Progress Notes * Sol Delgado, RADHA - 08/24/2017 9:[address] INITIAL ASSESSMENT/CONSULT PT C/O 35 LB WEIGHT LOSS IN 3 MONTHS, POOR INTAKE. NA 130, CR 1.35, CA 8.3, ALB 2.1, ALK PHOS 154, H/H 8.9/24.8(08/24). REGLAN, ATIVAN. PMH;HTN. PT C/O ABDOMINAL PAIN, NAUSEA, VOMITING. HT;5'3 WT;81 LBS IBW;115+-10% PT IS 70% IBW, 14.4 BMI, SEVERE PROTEIN CALORIE MALNUTRITION. 30% WEIGHT CHANGE. FOLLOW INTAKE, LABS, SKIN. PT ON CLEAR LIQUIDS 08/24. NO INTAKE NOTED ON CLEAR LIQUIDS. ENSURE CLEAR AT MEALS. ENCOURAGE PO INTAKE. FOLLOW DIET, INTAKE, LABS, SKIN. HIGH NUTRITIONAL RISK. documented in this encounter H&P Notes * Yara Nagy MD - 08/24/2017 5:01 AM CDT General Medicine History and Physical Date of Encounter 08/24/2017 PCP: Fernie Barfield SUBJECTIVE Patient is a 56 y.o. female with a PMH of SALGADO with recurrent ascites with a chief complaint of abdominal pain. HPI: Per patient she developed abdominal pain with nausea and vomiting 4 days ago. She states the on theday of presentation she had 10 episodes of emesis. She states when she vomits she has pain everywhere in her abdomen chest and throat. Denies any blood in her emesis. Patient states she feels this way when she needs a paracentesis. She is scheduled for paracentesis on Wednesday and has a standing order at [place]. Of note patient has SALGADO and is followed at [facility]. She sees Sara Joaquin. She states she was having monthly appointment however was recently switched to every 3 months. Her next appointment is in September. In the ED patient was given Reglan which helped with her discomfort. Patient was admitted for further care. Currently patient states she is feeling better. She states the Reglan is helping. Past Medical History: Diagnosis Date ??? HTN (hypertension) Past Surgical History: Procedure Laterality Date ??? CHOLECYSTECTOMY 01/2017 No prescriptions prior to admission. Allergies Allergen Reactions ??? Demerol [Meperidine] Unknown Social History Substance Use Topics ??? Smoking status: Current Every Day Smoker Packs/day: 0.50 ??? Smokeless tobacco: Never Used ??? Alcohol use No Family History Problem Relation Age of Onset ??? Diabetes Mother ??? Heart disease Mother Review of Systems Please see pertinent positives in HPI. Otherwise patient states she feels feverish with chills constantly ever since she was diagnosed with SALGADO. She also has a runny nose with cough after she vomits. Denies bleeding anywhere. Review of systems is otherwise negative. OBJECTIVE Vitals: Arrival Vitals Temp 08/23/17 1631 36.5 ??C (97.7 ??F) Pulse 08/23/17 1631 100 Resp 08/23/17 1631 20 BP 08/23/17 1631 106/78 SpO2 08/23/17 1631 100 % Temp src 08/23/17 1631 Oral Heart Rate Source -- Patient Position 08/23/172103 Lying BP Location 08/23/172103 Right arm FiO2 (%) -- 24hr Min/Max: Temp Min: 36.5 ??C (97.7 ??F) Max: 36.7 ??C (98.1 ??F) Pulse Min: 84 Max: 118 BP Min: 106/78 Max: 130/85 Resp Min: 15 Max: 20 SpO2 Min: 99 % Max: 100 % Most Recent : Vitals: 08/23/172103 BP: 114/71 Pulse: 84 Resp: 18 Temp: 36.7 ??C (98.1 ??F) SpO2: 99% No intake/output data recorded. PHYSICAL EXAM GENERAL: No acute distress, very thin, A&O x4 HEENT: No conjunctival pallor or scleral icterus, mucous membranes are moist NEURO: PERRL, EOMI, moves all extremity CVS: S1-S2, regular rate and rhythm LUNGS: Clear to auscultation bilaterally ABDOMEN: Positive bowel sounds, soft, positive fluid wave with mild to moderate distention, no tenderness to palpation but became nauseated EXT: No lower extremity edema or tenderness to palpation SKIN: Scattered purpura on extremities Lab/Radiology/Diagnostic Review: Recent Results (from the past 24 hour(s)) CBC with auto differential Collection Time: 08/23/17 4:59 PM Result Value Ref Range WBC 10.3 (H) 3.8 - 9.9 K/cumm RBC 3.16 (L) 3.90 - 5.20 M/cumm Hgb 10.0 (L) 11.9 - 15.5 g/dL Hct 27.9 (L) 35.6 - 45.5 % MCV 88.3 81.3 - 96.4 fL MCH 31.6 27.1 - 33.3 pg MCHC 35.8 (H) 32.3 - 35.7 g/dL RDW CV 12.9 11.1 - 14.9 % RDW SD 41.5 35.7 - 48.1 fL Platelets 678 (H) 150 - 400 K/cumm MPV 8.0 (L) 9.1 - 12.3 fL NRBC Abs 0.00 0.00 - 0.01 K/cumm Hepatic function panel Collection Time: 08/23/17 4:59 PM Result Value Ref Range AST 24 10 - 45 Units/L ALT 10 7 - 45 Units/L Alk phos 189 (H) 40 - 130 Units/L Bilirubin 0.6 0.1 - 1.2 mg/dL Bilirubin, direct <0.2 0.1 - 0.3 mg/dL Protein, pl 5.5 (L) 6.5 - 8.5 g/dL Albumin 2.6 (L) 3.5 - 5.0 g/dL Lipase Collection Time: 08/23/17 4:59 PM Result Value Ref Range Lipase 14 10 - 99 Units/L Protime-INR Collection Time: 08/23/17 4:59 PM Result Value Ref Range PT 12.9 9.5 - 13.0 sec INR 1.14 0.90 - 1.20 Basic metabolic panel Collection Time: 08/23/17 4:59 PM Result Value Ref Range Sodium 131 (L) 135 - 145 mmol/L Potassium 4.1 3.3 - 4.9 mmol/L Chloride 88 (L) 97 - 110 mmol/L CO2 28 22 - 32 mmol/L BUN 16 8 - 25 mg/dL Glucose 149 70 - 199 mg/dL Creatinine 1.21 (H) 0.60 - 1.10 mg/dL Calcium 8.7 8.5 - 10.3 mg/dL Anion Gap 15 2 - 15 mmol/L Magnesium Collection Time: 08/23/17 4:59 PM Result Value Ref Range Magnesium 1.8 1.6 - 2.4 mg/dL Differential, auto Collection Time: 08/23/17 4:59 PM Result Value Ref Range Neutrophils 80.8 (H) 44.0 - 80.0 % Immature granulocytes 0.3 0.0 - 1.0 % Lymphocytes 10.8 (L) 13.0 - 44.0 % Monos 7.7 2.0 - 11.0 % Eosinophils 0.0 0.0 - 6.0 % Basophils 0.4 0.0 - 3.0 % Neutrophil absolute 8.33 (H) 1.60 - 7.00 K/cumm Immature granulocyte, abs 0.03 0.00 - 0.20 K/cumm Lymphocytes, abs 1.11 0.50 - 4.30 K/cumm Monos, abs 0.79 0.10 - 1.00 K/cumm Eosinophils, abs 0.00 0.00 - 0.60 K/cumm Basophils, abs 0.04 0.00 - 0.30 K/cumm eGFR Collection Time: 08/23/17 4:59 PM Result Value Ref Range GFR 50 mL/min/1.73 m2 Urinalysis reflex to microscopic and culture Collection Time: 08/23/17 6:35 PM Result Value Ref Range Color, ur Dark Yellow Yellow Clarity, ur Cloudy (A) Clear Specific gravity, ur 1.021 1.003 - 1.030 pH, ur 6.0 4.5 - 8.0 Protein, ur 30 Negative mg/dL Glucose, ur Negative Negative mg/dL Ketones, ur Negative Negative Bilirubin, ur Small (A) Negative Blood, ur Negative Negative Urobilinogen, ur 0.2 0.2 - 1.0 Nitrites, ur Negative Negative Leukocyte esterase, ur Small (A) Negative Urinalysis, microscopic only Collection Time: 08/23/17 6:35 PM Result Value Ref Range RBC, ur 2-5 (A) 0 - 2 WBC, ur 25-50 (A) 0 - 2 Bacteria, ur 2+ (A) Negative Hyaline casts 2-5 (A) 0 - 2 Yeast, ur 1+ (A) Not Seen Epithelial cells, ur 10-25 (A) 0 - 2 Xr Abdomen Ap 1 Vw Result Date: 08/23/2017 Narrative: EXAM: XR ABDOMEN AP 1 VIEW HISTORY: ABDOMINAL PAIN. COMPARISON: None FINDINGS: The bowelgas pattern is nonspecific. Surgical clips in the right upper quadrant suggest prior cholecystectomy. No pathologic calcifications are seen. Free air cannot be excluded on supine views of the abdomen. Impression: 1. Nonspecific bowel gas pattern Electronically signed by: Ray Roberts M.D. Xr Chest 1 Vw Portable Result Date: 08/23/2017 Narrative: EXAM: Chest; AP portable at 1650 HISTORY: Dyspnea. COMPARISON: None FINDINGS: The right hemidiaphragm is elevated. The heart is normal in size. No consolidation, pneumothorax, or pleural effusions are seen. Impression: No acute cardiopulmonary process. Electronically signed by: Ray Roberts M.D. ASSESSMENT/PLAN Principal Problem: Ascites Active Problems: Abdominal pain SALGADO (nonalcoholic steatohepatitis) Anxiety Hypotension Chronic hyponatremia Abdominal pain Assessment & Plan Likely secondary to ascites. Nausea and vomiting have improved with Reglan. Will continue with Reglan and await ultrasound guided paracentesis. Will discontinue GI consult for now. However if patientcontinues to have abdominal pain with nausea and vomiting after paracentesis consider GI consult. * Ascites Assessment & Plan Will consult IR for ultrasound-guided paracentesis. Anxiety Assessment & Plan Continue with p.r.n. Ativan SALGADO (nonalcoholic steatohepatitis) Assessment & Plan Patient follows with GI at [facility]. Patient has an appointment in September. Consider contacting patient's GIdoctor to see if further workup or treatment needed or if patient can follow up as scheduled. Chronic hyponatremia Assessment & Plan Chronic but improved. Patient's sodium was 128 on 08/08/2017. Continue to monitor. Hypotension Assessment & Plan Patient is on midodrine 5 mg t.i.d.. Will continue with hold parameter of systolic blood pressure greater than 110. Diet. Clear liquids advance as tolerated DVT Prophylaxis. SCDs as patient has scattered purpura Estimated length of stay less than 2 midnights documented in this encounter Nursing Notes * Obdulia Gaona RN - 08/25/2017 9:49 AM CDT Went into the pts room this am to give her meds and do assessment and she was crying because she wanted to go home, I stated that some of her labs were low and did not know if she would be dischargedtoday. Approximately an hour later ALEJANDOR Morales role of PCT came and stated that the was veryupset and wanted to know why his could not be discharged today. I went in to speak with the ptand her and he was very upset and frustrated and wanted to take her home, I stated that I had put a call out to Dr. Schilling stating that she wanted to be discharged, but had not heard back from him. I stated there is always AMA and yelled that's a trap I reassured them that I had a call out and would let them know when I find something out. I went and spoke to business line manager Raven, and charged nurse Amy. Ferrera went in and spoke with pt and and stated we will work on getting her discharged today. * Obdulia Gaona RN - 08/25/2017 7:[address] Schilling to inform him that pt had a potassium of 3.1, decreased sodium level of 131, andhad a paracentesis yesterday with 5.3 liters removed. And that on 08/23 she had a UA with 2 plus bacteria and yeast. He stated thanks I will address. * Ria López RN - 08/24/2017 11:22 AM CDT Consent signed. documented in this encounter ED Notes * Lindsey Sams RN - 08/23/2017 4:33 PM CDT Pt C/O N/V X 4 days. * Billy Maher MD - 08/23/2017 4:30 PM CDT HPI Chief Complaint Patient presents with ??? Nausea ??? Vomiting HPI 4:24 PM 08/23/2017 The pt is a 56 y/o female with a PMHx of HTN who presents to the ED c/o vomiting and abdominal painonset 3 days ago. She notes having these pains before, stating that she typically has vomiting before having a paracentesis (she is scheduled to have one in 2 days). She reports having over 10 episodes of emesis today. She denies any cough, SOB, or chest pain. Denies any dysuria or frequency. She notes having 2 BMs today and states that they were normal. There are no other complaints at this time. Patient History Patient Active Problem List Diagnosis Date Noted ??? Ascites 08/24/2017 Priority: High ??? Abdominal pain 08/24/2017 Priority: High ??? SALGADO (nonalcoholic steatohepatitis) 08/24/2017 Priority: Medium ??? Anxiety 08/24/2017 Priority: Medium ??? Hypotension 08/24/2017 Priority: Low ??? Chronic hyponatremia 08/24/2017 Priority: Low Past Medical History: Diagnosis Date ??? HTN (hypertension) Past Surgical History: Procedure Laterality Date ??? CHOLECYSTECTOMY 01/2017 ??? US GUIDED PARACENTESIS N/A 08/24/2017 Family History Problem Relation Age of Onset ??? Diabetes Mother ??? Heart disease Mother Social History Substance Use Topics ??? Smoking status: Current Every Day Smoker Packs/day: 0.50 ??? Smokeless tobacco: Never Used ??? Alcohol use No Social History Social History Narrative ??? No narrative on file Review of Systems Review of Systems Constitutional: Negative for chills, fatigue and fever. HENT: Negative for congestion, ear pain, rhinorrhea, sneezing and sore throat. Respiratory: Negative for cough, shortness of breath and wheezing. Cardiovascular: Negative for chest pain and palpitations. Gastrointestinal: Positive for abdominal pain and vomiting. Negative for constipation and diarrhea. Genitourinary: Negative for dysuria and frequency. Musculoskeletal: Negative for arthralgias, back pain, myalgias and neck pain. Skin: Negative for color change, pallor, rash and wound. Neurological: Negative for dizziness, syncope, weakness, light-headedness and headaches. All other systems reviewed and are negative. Physical Exam ED Triage Vitals Temp Pulse Resp BP SpO2 -- -- -- -- -- Temp src Heart Rate Source Patient Position BP Location FiO2 (%) -- -- -- -- -- Physical Exam Constitutional: She is oriented to person, place, and time. She appears well- developed and well-nourished. Chronically ill and very cachetic appearing. HENT: Head: Normocephalic and atraumatic. Mouth/Throat: Oropharynx is clear and moist. Face symmetrical. Eyes: Conjunctivae and EOM are normal. Right eye exhibits no discharge. Left eye exhibits no discharge. Right conjunctiva is not injected. Left conjunctiva is not injected. Conjunctiva white. Neck: Normal range of motion. Neck supple. No JVD present. Cardiovascular: Normal rate, regular rhythm, normal heart sounds and intact distal pulses. Exam reveals no gallop and no friction rub. No murmur heard. Strong peripheral pulses, no bounding. Pulmonary/Chest: Effort normal. No respiratory distress. She has no wheezes. She has no rales. Decreased air flow. Abdominal: Soft. She exhibits no mass. There is tenderness (mild, diffuse). There is no guarding. No hernia. Slightly protuberant. Musculoskeletal: Normal range of motion. She exhibits no edema, tenderness or deformity. Extremities cold and dry with extreme muscle wasting. No pain. No joint swelling. Neurological: She is alert and oriented to person, place, and time. Speech is clear and fluent. Skin: Skin is warm and dry. Capillary refill takes less than 2 seconds. No rash noted. No erythema.No pallor. Psychiatric: She has a normal mood and affect. Her behavior is normal. Nursing note and vitals reviewed. ED Course & MDM ED Course as of Aug 28 1613 Mon Aug 23, 2017 1857 Patient's case discussed with Dr. Ricci (GI) who agrees to consult. [KS] 1844 Patient's case discussed with Dr. Nowak (Hospitalist) who agrees to accept the pt for admission. She would like to have us call . [KS] 1823 Per chart review patient had an ERCP and laparoscopic cholecystectomy in January 2017. [KS] 1804 Patient rechecked. Discussed all results and plan to possibly admit. Patient and family agree with the plan. All questions answered at this time. [KS] ED Course User Index [KS[facility] (!) 79/44 (BP Location: Right arm) Pulse 81 Temp 37.9 ??C (100.2 ??F) (Temporal) Resp 18 Ht 160 cm (5' 3 ) Wt 37.1 kg (81 lb 12.7 oz) SpO2 98% BMI 14.49 kg/m?? Labs Reviewed CBC WITH AUTO DIFFERENTIAL - Abnormal Result Value WBC 10.3 (*) RBC 3.16 (*) Hgb 10.0 (*) Hct 27.9 (*) MCV 88.3 MCH 31.6 MCHC 35.8 (*) RDW CV 12.9 RDW SD 41.5 Platelets 678 (*) MPV 8.0 (*) NRBC Abs 0.00 Narrative: HEPATIC FUNCTION PANEL - Abnormal AST 24 ALT 10 Alk phos 189 (*) Bilirubin 0.6 Bilirubin, direct <0.2 Protein, pl 5.5 (*) Albumin 2.6 (*) Narrative: URINALYSIS AND REFLEX TO MICROSCOPIC AND CULTURE - Abnormal Color, ur Dark Yellow Clarity, ur Cloudy (*) Specific gravity, ur 1.021 pH, ur 6.0 Protein, ur 30 Glucose, ur Negative Ketones, ur Negative Bilirubin, ur Small (*) Blood, ur Negative Urobilinogen, ur 0.2 Nitrites, ur Negative Leukocyte esterase, ur Small (*) Narrative: BASIC METABOLIC PANEL - Abnormal Sodium 131 (*) Potassium 4.1 Chloride 88 (*) CO2 28 BUN 16 Glucose 149 Creatinine 1.21 (*) Calcium 8.7 Anion Gap 15 Narrative: DIFFERENTIAL AUTO - Abnormal Neutrophils 80.8 (*) Immature granulocytes 0.3 Lymphocytes 10.8 (*) Monocytes 7.7 Eosinophils 0.0 Basophils 0.4 Neutrophil absolute 8.33 (*) Immature granulocyte absolute 0.03 Lymphocytes absolute 1.11 Monocyte absolute 0.79 Eosinophils absolute 0.00 Basophils, abs 0.04 Narrative: URINALYSIS, MICROSCOPIC ONLY - Abnormal RBC, ur 2-5 (*) WBC, ur 25-50 (*) Bacteria, ur 2+ (*) Hyaline casts 2-5 (*) Yeast, ur 1+ (*) Epithelial cells, ur 10-25 (*) Narrative: COMPREHENSIVE METABOLIC PANEL - Abnormal Sodium 130 (*) Potassium 3.8 CO2 28 BUN 17 Glucose 168 Creatinine 1.35 (*) Calcium 8.3 (*) Chloride 92 (*) Albumin 2.1 (*) AST 19 ALT 9 Alk phos 154 (*) Bilirubin 0.4 Protein, pl 4.7 (*) Anion Gap 10 Narrative: CBC WITH AUTO DIFFERENTIAL - Abnormal WBC 11.4 (*) RBC 2.79 (*) Hgb 8.9 (*) Hct 24.8 (*) MCV 88.9 MCH 31.9 MCHC 35.9 (*) RDW CV 13.0 RDW SD 42.4 Platelets 623 (*) MPV 7.8 (*) NRBC Abs 0.00 Narrative: DIFFERENTIAL AUTO - Abnormal Neutrophils 75.9 Immature granulocytes 0.3 Lymphocytes 13.7 Monocytes 9.9 Eosinophils 0.0 Basophils 0.2 Neutrophil absolute 8.68 (*) Immature granulocyte absolute 0.04 Lymphocytes absolute 1.57 Monocyte absolute 1.13 (*) Eosinophils absolute 0.00 Basophils, abs 0.02 Narrative: PROTEIN, TOTAL - Abnormal Protein, pl 4.2 (*) Narrative: CBC WITH AUTO DIFFERENTIAL - Abnormal WBC 7.7 RBC 2.48 (*) Hgb 8.0 (*) Hct 22.1 (*) MCV 89.1 MCH 32.3 MCHC 36.2 (*) RDW CV 13.1 RDW SD 42.5 Platelets 408 (*) MPV 7.9 (*) NRBC Abs 0.00 Narrative: BASIC METABOLIC PANEL - Abnormal Sodium 131 (*) Potassium 3.1 (*) Chloride 93 (*) CO2 27 BUN 16 Glucose 93 Creatinine 1.16 (*) Calcium 7.9 (*) Anion Gap 11 Narrative: URINE CULTURE Report Value: Final Report: Insignificant growth based on current clinical standards. Narrative: LIPASE Lipase 14 Narrative: PROTIME-INR PT 12.9 INR 1.14 Narrative: MAGNESIUM Magnesium 1.8 Narrative: EGFR GFR 50 Narrative: EGFR GFR 44 Narrative: BODY FLUID CELL COUNT WITH DIFFERENTIAL Specimen type, fld Paracentesis Color, fld Straw Clarity, fld Cloudy WBC, fld 27.00 RBC, fld <2,000 Mononuclear cells, fld 96.3 Neutrophils, fld 3.7 Narrative: Fluid Detail:->Peritoneal fluid LACTATE DEHYDROGENASE, BODY FLUID LD, fld 32 Fluid type Peritoneal Narrative: Fluid Detail:->Other Other Fluid:->peritoneal fluid DIFFERENTIAL AUTO Neutrophil absolute 4.81 Immature granulocyte absolute 0.0 Lymphocytes absolute 2 Monocyte absolute 0.7 Eosinophils absolute 0.0 Basophils, abs 0.0 Neutrophils 62.7 Immature granulocytes 0.1 Lymphocytes 26.7 Monocytes 9.5 Eosinophils 0.5 Basophils 0.5 Narrative: EGFR GFR 53 Narrative: US Guided Paracentesis Final Result SUCCESSFUL ULTRASOUND GUIDED PARACENTESIS YIELDING 5300 ML OF YELLOW FLUID. Electronically signed by: Aakash Nieto M.D. XR Abdomen Ap 1 Vw Final Result 1. Nonspecific bowel gas pattern Electronically signed by: Ray Roberts M.D. XR Chest 1 Vw Portable Final Result No acute cardiopulmonary process. Electronically signed by: Ray Roberts M.D. Intractable vomiting with nausea, unspecified vomiting type 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 (CMS/HCC) Malnutrition compromising bodily function (CMS/HCC) Malignant cachexia (CMS/HCC) This note was prepared by Tg Mays, acting as Scribe for Billy Maher MD. I electronically signed this note at 4:56 PM on 08/23/2017. I, Billy Maher MD, have personally performed the services described in the documentation , reviewed the documentation, as recorded by the scribe in my presence, and it accurately and completely records my words and actions. Billy Maher MD 08/23/17 2327 Billy Maher MD 08/24/17 0114 Billy Maher MD 08/28/17 1611 Billy Maher MD 08/28/17 1614 * Melony Hahn RN - 08/23/2017 4:22 PM CDT Bed: ED03 Expected date: 08/23/17 Expected time: 4:14 PM Means of arrival: Comments: [email or web address] Melony Hahn RN 08/23/17 1622 documented in this encounter Miscellaneous Notes * Plan of Care - Obdulia Gaona RN - 08/25/2017 11:11 AM CDT Goals: Clinical Goals for the Shift: stable vital signs, increase in potassium and sodium , keep turning every 2 hours due to epidermis sensitivity Summary: Pt discharged to home today with , to follow up with her specialist at [facility]. * Plan of Care - Judith Naylor RN - 08/25/2017 3:27 AM CDT Fluid Volume: ??? Maintenance of adequate hydration will improve Progressing ??? Will show no signs and symptoms of electrolyte imbalance Progressing Health Behavior: ??? Understanding of discharge needs will improve Progressing Lack of Knowledge: ??? Ability to state ways to decrease the risk of falls will improve Progressing Lack of Knowledge: ??? Verbalization of understanding the information provided will improve Progressing Nutritional: ??? Maintenance of adequate nutrition will improve Progressing Safety: ??? Will remain free from falls Progressing ??? Will remain free from injury from falls Progressing ??? Will remain free from falls and injury in home environment Progressing Sensory: ??? Occurrences of nausea will decrease Progressing Goals: Clinical Goals for the Shift: pt vs stable, no complications from paracentesis, pt remain free of fall/injury Summary: pt slept well all night with no complaints of pain, pt BP has been running 80s over 50s was at bedside earlier in shift and explained that's her baseline, pt was asymptomatic all shift, pt was unhappy earlier because she thought she was going to be able to go home yesterday after pa racentesis, she wanted ativan explained to her I could not give her ativan due to BP but I will tryto get her xanax restarted that she takes at home, spoke with Dr. Jacobsen and she was ok with restarting her xanax, pt is sleeping comfortably in bed at this time, continue to monitor BP * Plan of Care - Princess Levine RN - 08/24/2017 6:43 PM CDT Fluid Volume: ??? Maintenance of adequate hydration will improve Progressing ??? Will show no signs and symptoms of electrolyte imbalance Progressing Health Behavior: ??? Understanding of discharge needs will improve Progressing Lack of Knowledge: ??? Ability to state ways to decrease the risk of falls will improve Progressing Lack of Knowledge: ??? Verbalization of understanding the information provided will improve Progressing Nutritional: ??? Maintenance of adequate nutrition will improve Progressing Safety: ??? Will remain free from falls Progressing ??? Will remain free from injury from falls Progressing ??? Will remain free from falls and injury in home environment Progressing Sensory: ??? Occurrences of nausea will decrease Progressing Goals: Clinical Goals for the Shift: Pt to have vs stable, remain fall and injury free. Pt to have paracentesis preformed. Summary:Patient had paracentisis this shift they removed 5.3 Liters of fluid.Patients BP has been low this shift. Patient is A&O. Patient plans to discharge home with spouse when medically stable. No discharge orders at this time. * Plan of Care - Katerina Deutsch RN - 08/24/2017 4:04 PM CDT Fluid Volume: ??? Maintenance of adequate hydration will improve Progressing ??? Will show no signs and symptoms of electrolyte imbalance Progressing Health Behavior: ??? Understanding of discharge needs will improve Progressing Lack of Knowledge: ??? Ability to state ways to decrease the risk of falls will improve Progressing Lack of Knowledge: ??? Verbalization of understanding the information provided will improve Progressing Nutritional: ??? Maintenance of adequate nutrition will improve Progressing Safety: ??? Will remain free from falls Progressing ??? Will remain free from injury from falls Progressing ??? Will remain free from falls and injury in home environment Progressing Sensory: ??? Occurrences of nausea will decrease Progressing Goals: Clinical Goals for the Shift: Pt to have vs stable, remain fall and injury free. Pt to have paracentesis preformed. Summary: Pt blood pressure has remained low on this shift but is normal for her and being medicatedfor. Pt remains fall free and injury free. Pt had paracentesis today 5.3 L. Pt tolerated well but was very anxious to go home and was disappointed she could not be discharged today. Pt resting in bedand diet was advanced as tolerated. * Plan of Care - Jasmin Vargas RN - 08/24/2017 12:36 PM CDT patient has wheeled walker with a seat, shower chair and high rise toilets at home. Doesn't drive anymore but does. No other needs voiced. * Assessment & Plan Note - Yara Nagy MD - 08/24/2017 4:59 AM CDTAssociated Problem(s): SALGADO (nonalcoholic steatohepatitis) Patient follows with GI at [facility]. Patient has an appointment in September. Consider contacting patient's GIdoctor to see if further workup or treatment needed or if patient can follow up as scheduled. * Assessment & Plan Note - Yara Nagy MD - 08/24/2017 4:56 AM CDTAssociated Problem(s): Anxiety Continue with p.r.n. Ativan * Assessment & Plan Note - Yara Nagy MD - 08/24/2017 4:54 AM CDTAssociated Problem(s): Hypotension Patient is on midodrine 5 mg t.i.d.. Will continue with hold parameter of systolic blood pressure greater than 110. * Assessment & Plan Note - Yara Nagy MD - 08/24/2017 4:54 AM CDTAssociated Problem(s): Chronic hyponatremia Chronic but improved. Patient's sodium was 128 on 08/08/2017. Continue to monitor. * Assessment & Plan Note - Yara Nagy MD - 08/24/2017 4:50 AM CDTAssociated Problem(s): Abdominal pain Likely secondary to ascites. Nausea and vomiting have improved with Reglan. Will continue with Reglan and await ultrasound guided paracentesis. Will discontinue GI consult for now. However if patientcontinues to have abdominal pain with nausea and vomiting after paracentesis consider GI consult. * Assessment & Plan Note - Yara Nagy MD - 08/24/2017 4:49 AM CDTAssociated Problem(s): Ascites Will consult IR for ultrasound-guided paracentesis. * Plan of Care - Judith Naylor RN - 08/24/2017 4:15 AM CDT Health Behavior: ??? Understanding of discharge needs will improve Progressing Safety: ??? Will remain free from falls Progressing ??? Will remain free from injury from falls Progressing ??? Will remain free from falls and injury in home environment Progressing Fluid Volume: ??? Maintenance of adequate hydration will improve Not Progressing ??? Will show no signs and symptoms of electrolyte imbalance Not Progressing Lack of Knowledge: ??? Ability to state ways to decrease the risk of falls will improve Not Progressing Lack of Knowledge: ??? Verbalization of understanding the information provided will improve Not Progressing Nutritional: ??? Maintenance of adequate nutrition will improve Not Progressing Sensory: ??? Occurrences of nausea will decrease Not Progressing Goals: Clinical Goals for the Shift: vs stable, pt remain free of falls/injury Summary: [facility] with [facility], pt complained of nausea no vomiting at this time, pt hadsome anxiety was given prn anxiolytic, pt is NPO for US of abdomen and possible paracentesis, pt gets scheduled paracentesis at [facility] and would like to start receiving them here, pt isnow resting comfortably in bed at this time documented in this encounter Plan of Treatment Not on file documented as of this encounter Procedures Procedure Name Priority Date/Time Associated Diagnosis Comments EGFR Routine 08/25/2017 3:39 AM CDT DIFFERENTIAL AUTO Routine 08/25/2017 3:3 9 AM CDT CBC WITH AUTO DIFFERENTIAL Routine 08/25/2017 3:39 AM CDT BASIC METABOLIC PANEL Routine 08/25/2017 3:39 AM CDT DISCHARGE LABORATORY CUMULATIVE REPORT 08/25/2017 12:00 AM CDT PROTEIN, TOTAL Routine 08/24/2017 3:41 PM CDT US GUIDED PARACENTESIS IP Routine 08/24/2017 12:09 PM CDT BODY FLUID CELL COUNT WITH DIFFERENTIAL Routine 08/24/2017 11:30 AM CDT LACTATE DEHYDROGENASE, BODY FLUID Routine 08/24/2017 11:30 AM CDT EGFR Routine 08/24/2017 6:26 AM CDT DIFFERENTIAL AUTO Routine 08/24/2017 6:2 6 AM CDT CBC WITH AUTO DIFFERENTIAL Routine 08/24/2017 6:26 AM CDT COMPREHENSIVE METABOLIC PANEL Routine 08/24/2017 6:26 AM CDT URINALYSIS AND REFLEX TO MICROSCOPIC AND CULTURE STAT 08/23/2017 6:35 PM CDT URINALYSIS, MICROSCOPIC ONLY STAT 08/23/2017 6:35 PM CDT URINE CULTURE STAT 08/23/2017 6:35 PM CDT EGFR STAT 08/23/2017 4:59 PM CDT DIFFERENTIAL AUTO STAT 08/23/2017 4:5 9 PM CDT CBC WITH AUTO DIFFERENTIAL STAT 08/23/2017 4:59 PM CDT PROTIME-INR STAT 08/23/2017 4:59 PM CDT MAGNESIUM Routine 08/23/2017 4:59 PM CDT LIPASE STAT 08/23/2017 4:59 PM CDT HEPATIC FUNCTION PANEL STAT 08/23/2017 4:59 PM CDT BASIC METABOLIC PANEL STAT 08/23/2017 4:59 PM CDT XR CHEST 1 VIEW ED 08/23/2017 4:54 PM CDT XR ABDOMEN AP 1 VIEW ED 08/23/2017 4:54 PM CDT documented in this encounter Results * eGFR (08/25/2017 3:39 AM CDT) eGFR 53 mL/min/1.7 3 m2 [facility] ([place]) Comment: Interpretive Data Reference Interval Normal ?>/= 90 mL/min/1.73m2 Mildly decreased* ? 60 - 89 mL/min/1.73m2 Mildly to moderately decreased ?45 - 59 mL/min/1.73m2 Moderately to severely decreased ??30 - 44 mL/min/1.73m2 Severely decreased ?15 - 29 mL/min/1.73m2 Kidney Failure ?< 15 ??mL/min/1.73m2 *Relative to young adult level If -Nigerian multiply value by 1.16. Estimated glomerular filtration [...] was last reviewed 2015. Blood specimen (specimen) 08/25/2017 3:39 AM CDT 08/25/2017 3:57 AM CDT Narrative [facility] ([place]) - 08/25/2017 4:35 AM CDT us Amy Ferguson MD LAB BLOOD ORDERABLES Fin al Result [facility]NY [facility] ([place]) [address] [facility] [place] [address] * Differential, auto (08/25/2017 3:39 AM CDT) Neutrophil abs 4.81 1.70 - 6.50 K/cumm [facility] ([place]) Imm gran abs 0.0 0.0 - 0.1 K/cumm [facility] ([place]) Lymphocyte abs 2 1 - 3 K/cumm [facility] ([place]) Monocyte abs 0.7 0.2 - 0.8 K/cumm [facility] ([place]) Eosinophil abs 0.0 0.0 - 0.5 K/cumm [facility] ([place]) Basophil abs 0.0 0.0 - 0.1 K/cumm [facility] ([place]) Neutrophil pct 62.7 % [facility] ([place]) Comment: Interpretive Data Percent cell count reference ranges are not reported, since discordance with absolute values may lead to misinterpretation of CBC data. Current Interpretive Data was last revised on 2017. Imm gran pct 0.1 % [facility] ([place]) Comment: Interpretive Data Percent cell count reference ranges are not reported, since discordance with absolute values may lead to misinterpretation of CBC data. Current Interpretive Data was last revised on 2017. Lymphocyte pct 26.7 % [facility] ([place]) Comment: Interpretive Data Percent cell count reference ranges are not reported, since discordance with absolute values may lead to misinterpretation of CBC data. Current Interpretive Data was last revised on 2017. Monocyte pct 9.5 % [facility] ([place]) Comment: Interpretive Data Percent cell count reference ranges are not reported, since discordance with absolute values may lead to misinterpretation of CBC data. Current Interpretive Data was last revised on 2017. Eosinophil pct 0.5 % [facility] ([place]) Comment: Interpretive Data Percent cell count reference ranges are not reported, since discordance with absolute values may lead to misinterpretation of CBC data. Current Interpretive Data was last revised on 2017. Basophil pct 0.5 % [facility] ([place]) Comment: Interpretive Data Percent cell count reference ranges are not reported, since discordance with absolute values may lead to misinterpretation of CBC data. Current Interpretive Data was last revised on 2017. Blood specimen (specimen) 08/25/2017 3:39 AM CDT 08/25/2017 3:57 AM CDT Narrative [facility] ([place]) - 08/25/2017 5:12 AM CDT us Amy Ferguson MD LAB BLOOD ORDERABLES Fin al Result TREMAINE AN) [address] [facility] [place] [address] * (ABNORMAL) Basic metabolic panel (08/25/2017 3:39 AM CDT) Sodium 131(L) 135 - 145 mmol/L [facility] ([place]) Potassium, pl 3.1(L) 3.3 - 4.9 mmol/L [facility] ([place]) Chloride 93(L) 97 - 110 mmol/L [facility] ([place]) CO2 27 22 - 32 mmol/L [facility] ([place]) BUN 16 8 - 25 mg/dL [facility] ([place]) Glucose 93 70 - 199 mg/dL [facility] ([place]) [...] - 1.10 mg/dL [facility] ([place]) Calcium 7.9(L) 8.5 - 10.3 mg/dL [facility] ([place]) Anion gap 11 2 - 15 mmol/L [facility] ([place]) Blood specimen (specimen) 08/25/2017 3:39 AM CDT 08/25/2017 3:57 AM CDT [facility]arrative [facility] ([place] - 08/25/2017 4:35 AM CDT us Amy Ferguson MD LAB BLOOD ORDERABLES Fin al Result [facility] ([place]) [address] [facility] Department of Laboratories [place], [place] [id number] * (ABNORMAL) CBC with auto differential (08/25/2017 3:39 AM CDT) WBC 7.7 3.8 - 9.9 K/cumm [facility] ([place]) RBC 2.48(L) 3.90 - 5.20 M/cumm [facility] ([place]) Hgb 8.0(L) 11.9 - 15.5 g/dL [facility] ([place]) Hct 22.1(L) 35.6 - 45.5 % [facility] ([place]) MCV 89.1 81.3 - 96.4 fL [facility] ([place]) MCH 32.3 27.1 - 33.3 pg [facility] ([place]) MCHC 36.2(H) 32.3 - 35.7 g/dL [facility] ([place]) RDW CV 13.1 11.1 - 14.9 % [facility] ([place]) RDW SD 42.5 35.7 - 48.1 fL [facility] ([place]) Plt 408(H) 150 - 400 K/cumm [facility] ([place]) MPV 7.9(L) 9.1 - 12.3 fL [facility] ([place]) NRBC abs 0.00 0.00 - 0.01 K/cumm [facility] ([place]) Blood specimen (specimen) 08/25/2017 3:39 AM CDT 08/25/2017 3:57 AM CDT Narrative [facility] ([place]) - 08/25/2017 5:12 AM CDT Amy Ferguson MD LAB BLOOD ORDERABLES Wade al Result [facility] ([place]) [address] [facility] Department [place] [address] * DISCHARGE LABORATORY CUMULATIVE REPORT (08/25/2017 12:00 AM CDT) Narrative 08/25/2017 12:00 AM CDT Ordered by an unspecified provider. Historical Provider LAB BLOOD ORDERABLES Jojo collier Result * (ABNORMAL) Protein, total (08/24/2017 3:41 PM CDT) Protein, pl 4.2(L) 6.5 - 8.5 g/dL [facility] ([place]) Blood specimen (specimen) 08/24/2017 3:41 PM CDT 08/24/2017 4:12 PM CDT Narrative [facility] ([place]) - 08/24/2017 4:30 PM CDT us Amy Ferguson MD LAB BLOOD ORDERABLES Fin al Result [facility] SKELTON ([place]) [address] [facility] Department [place] [address] * US Guided Paracentesis (08/24/2017 12:09 PM CDT) Anatomical Region Laterality Modality Abdomen N/A Ultrasound Impressions 08/24/2017 12:18 PM CDT SUCCESSFUL ULTRASOUND GUIDED PARACENTESIS YIELDING 5300 ML OF YELLOW FLUID. Electronically signed by: Aakash Nieto M.D. Narrative 08/24/2017 12:18 PM CDT Paracentesis US GUIDED PARACENTESIS HISTORY: Recurrent ascites. TECHNIQUE: The procedure, risks and potential complications were reviewed with the patient and informed consent obtained. ??Preliminary ultrasound images were obtained to localize an approach to the ascites. ??It was elected to drain the fluid from the left lower quadrant . ??A point of entry was marked on the patient's skin. ??A timeout procedure was performed. ?? This site was prepped and draped in the usual sterile fashion. Approximately 5 ml of 1% lidocaine was administered for local anesthesia. ??A 5F catheter was inserted into the abdominal cavity. Approximately 5300 ml of clear yellow fluid was withdrawn. The catheter was removed and the site was cleaned and dressed. ??The patient tolerated the procedure well. Procedure Note Aakash Nieto MD - 08/24/2017 Paracentesis US GUIDED PARACENTESIS HISTORY: Recurrent ascites. TECHNIQUE: The procedure, risks and potential complications were reviewed with the patient and informed consent obtained. Preliminary ultrasound images were obtained to localize an approach to the ascites. It was elected to drain the fluid from the left lower quadrant . A point of entry was marked on the patient's skin. A timeout procedure was performed. This site was prepped and draped in the usual sterile fashion. Approximately 5 ml of 1% lidocaine was administered for local anesthesia. A 5F catheter was inserted into the abdominal cavity. Approximately 5300 ml of clear yellow fluid was withdrawn. The catheter was removed and the site was cleaned and dressed. The patient tolerated the procedure well. IMPRESSION: SUCCESSFUL ULTRASOUND GUIDED PARACENTESIS YIELDING 5300 ML OF YELLOW FLUID. Electronically signed by: Aakash Nieto M.D. Yara Nagy MD IMG US PROCEDURES Final Result * Lactate dehydrogenase, body fluid (08/24/2017 11:30 AM CDT) LD, fld 32 Units/L [facility] ([place]) Comment: Interpretive Data The reference range and other method performance specifications have not been established for this body fluid. ??Comparison of this result with its concentration in the blood, serum or plasma is recommended. ??The test result must be integrated into the clinical context for interpretation. Current Interpretive Data was last revised on 2017. Fluid type Peritoneal [facility] A ([place]) Fluid 08/24/2017 11:3 0 AM CDT 08/24/2017 2:23 PM CDT Narrative [facility] ([place]) - 08/24/2017 2:43 PM CDT Fluid Detail:->Other Other Fluid:->peritoneal fluid us Amy Ferguson MD LAB BODY FLUIDS AND STOO LS ORDERABLES Final Result [facility] ([place]) [address] [facility] Department [place] [address] * Cell count and differential, body fluid (08/24/2017 11:30 AM CDT) Specimen type, fld Paracentesis [facility] ([place]) Color, fld Straw [facility] ([place]) Clarity, fld Cloudy [facility] ([place]) WBC, fld 27.00 /cumm [facility] ([place]) Comment: Interpretive Data The reference range and other method performance specifications have not been established for this test. The test result should be integrated into the clinical context for interpretation. Current interpretive data was last revised on 2014. RBC, fld <2,000 /cumm [facility] ([place]) Mononuclear cells, fld 96.3 % [facility] ([place]) Neutrophils, fld 3.7 % [facility] ([place]) Fluid 08/24/2017 11:3 0 AM CDT 08/24/2017 2:23 PM CDT Narrative [facility] ([place]) - 08/24/2017 3:20 PM CDT Fluid Detail:->Peritoneal fluid us Amy Ferguson MD LAB BODY FLUIDS AND STOAleah LS ORDERABLES Final Result [facility] ([place]) [address] [facility] Department [place] [address] * eGFR (08/24/2017 6:26 AM CDT) eGFR 44 mL/min/1.7 3 m2 [facility] ([place]) Comment: Interpretive Data Reference Interval Normal ?>/= 90 mL/min/1.73m2 Mildly decreased* ? 60 - 89 mL/min/1.73m2 Mildly to moderately decreased ?45 - 59 mL/min/1.73m2 Moderately to severely decreased ??30 - 44 mL/min/1.73m2 Severely decreased ?15 - 29 mL/min/1.73m2 Kidney Failure ?< 15 ??mL/min/1.73m2 *Relative to young adult level If -Nigerian multiply value by 1.16. Estimated glomerular filtration [...] was last reviewed 2015. Blood specimen (specimen) 08/24/2017 6:26 AM CDT 08/24/2017 6:28 AM CDT Narrative [facility] ([place]) - 08/24/2017 6:50 AM CDT us Yara Nagy MD LAB BLOOD ORDERABLES Final Resul t [facility] ([place]) [address] [facility] [place] [address] * (ABNORMAL) Differential, auto (08/24/2017 6:26 AM CDT) Neutrophil pct 75.9 44.0 - 80.0 % [facility] ([place]) Imm gran pct 0.3 0.0 - 1.0 % [facility] ([place]) Lymphocyte pct 13.7 13.0 - 44.0 % [facility] ([place]) Monocyte pct 9.9 2.0 - 11.0 % [facility] ([place]) Eosinophil pct 0.0 0.0 - 6.0 % [facility] ([place]) Basophil pct 0.2 0.0 - 3.0 % [facility] ([place]) Neutrophil abs 8.68(H) 1.60 - 7.00 K/cumm [facility] ([place]) Imm gran abs 0.04 0.00 - 0.20 K/cumm [facility] ([place]) Lymphocyte abs 1.57 0.50 - 4.30 K/cumm [facility] ([place]) Monocyte abs 1.13(H) 0.10 - 1.00 K/cumm [facility] ([place]) Eosinophil abs 0.00 0.00 - 0.60 K/cumm [facility] ([place]) Basophil abs 0.02 0.00 - 0.30 K/cumm [facility] ([place]) Blood specimen (specimen) 08/24/2017 6:26 AM CDT 08/24/2017 6:28 AM CDT Narrative [facility] ([place]) - 08/24/2017 6:54 AM CDT us Yara Nagy MD LAB BLOOD ORDERABLES Final Resul t [facility] ([place]) [address] [facility] [employer] [address] [place] [address] * (ABNORMAL) CBC with auto differential (08/24/2017 6:26 AM CDT) WBC 11.4(H) 3.8 - 9.9 K/cumm [facility] ([place]) RBC 2.79(L) 3.90 - 5.20 M/cumm [facility] ([place]) Hgb 8.9(L) 11.9 - 15.5 g/dL [facility] ([place]) Hct 24.8(L) 35.6 - 45.5 % [facility] ([place]) MCV 88.9 81.3 - 96.4 fL [facility] ([place]) MCH 31.9 27.1 - 33.3 pg [facility] ([place]) MCHC 35.9(H) 32.3 - 35.7 g/dL [facility] ([place]) RDW CV 13.0 11.1 - 14.9 % [facility] ([place]) RDW SD 42.4 35.7 - 48.1 fL [facility] ([place]) Plt 623(H) 150 - 400 K/cumm [facility] ([place]) MPV 7.8(L) 9.1 - 12.3 fL [facility] ([place]) NRBC abs 0.00 0.00 - 0.01 K/cumm [facility] ([place]) Blood specimen (specimen) 08/24/2017 6:26 AM CDT 08/24/2017 6:28 AM CDT Narrative [facility] ([place]) - 08/24/2017 6:53 AM CDT us Yara Nagy MD LAB BLOOD ORDERABLES Final Resul t [facility] ([place]) 1 [facility] [place] [address] * (ABNORMAL) Comprehensive metabolic panel (08/24/2017 6:26 AM CDT) Sodium 130(L) 135 - 145 mmol/L [facility] ([place]) Potassium, pl 3.8 3.3 - 4.9 mmol/L [facility]) CO2 28 22 - 32 mmol/L [facility]) BUN 17 8 - 25 mg/dL [facility] ([place]) Glucose 168 70 - 199 mg/dL [facility] ([place]) [...] interpretive data was last revised 2017. Creatinine 1.35(H) 0.60 - 1.10 mg/dL [facility] ([place]) Calcium 8.3(L) 8.5 - 10.3 mg/dL [facility] ([place]) Chloride 92(L) 97 - 110 mmol/L [facility] ([place]) Albumin 2.1(L) 3.5 - 5.0 g/dL [facility]) AST 19 10 - 45 Units/L [facility]) ALT 9 7 - 45 Units/L [facility]) Alk phos 154(H) 40 - 130 Units/L [facility] ([place]) Bilirubin, total 0.4 0.1 - 1.2 mg/dL [facility]) Protein, pl 4.7(L) 6.5 - 8.5 g/dL [facility]) Anion gap 10 2 - 15 mmol/L [facility]) Blood specimen (specimen) 08/24/2017 6:26 AM CDT 08/24/2017 6:28 AM CDT Narrative [facility] ([place]) - 08/24/2017 6:50 AM CDT us Yara Nagy MD LAB BLOOD ORDERABLES Final Resul t [facility] ([place]) [address] [facility] [place] [address] * Urine culture (08/23/2017 6:35 PM CDT) Report Final Report: Insignifican t growth based on current clinical standards. [facility] ([place]) Comment:Testing performed by : [facility], 1 [facility] [address] Urine 08/23/2017 6:35 PM CDT 08/23/2017 9:57 PM CDT Narrative [facility]) - 08/24/2017 4:31 PM CDT us Billy Maher MD LAB MICROBIOLOGY - GENERAL ORDERABLES Final Result Performing Organization Address [facility] Co de Phone Number [facility] ([place]) 1 [facility] [place] [address] * (ABNORMAL) Urinalysis, microscopic only (08/23/2017 6:35 PM CDT) RBC, ur 2-5(A) 0 - 2 [facility] ([place]) WBC, ur 25-50(A) 0 - 2 [facility]) Bacteria, ur 2+(A) Negative [facility]) Hyaline casts, ur 2-5(A) 0 - 2 [facility]) Yeast, ur 1+(A) Not Seen [facility] ([place]) Epithelial cells, ur 10-25(A) 0 - 2 [facility]) Urine 08/23/2017 6:35 PM CDT 08/23/2017 6:37 PM CDT Narrative [facility] ([place]) - 08/23/2017 7:09 PM CDT us Billy Maher MD LAB URINE ORDERABLES Final Result [facility]) [address] [facility] [place] [place] [address] * (ABNORMAL) Urinalysis reflex to microscopic and culture (08/23/2017 6:35 PM CDT) Color, ur Dark Yellow Yellow [facility] ([place]) Clarity, ur Cloudy(A) Clear [facility] ([place]) Specific gravity, ur 1.021 1.003 - 1.030 [facility] ([place]) Comment:Normal Ranges: 1.003 -1.030 pH, ur 6.0 4.5 - 8.0 [facility] ([place]) Comment:Normal ranges: 4.5-8 .0 Protein, ur ql 30 Negative mg/dL [facility] ([place]) Glucose, ur ql Negative Negative mg/dL [facility] ([place]) Ketones, ur Negative Negative [facility] ([place]) Bilirubin, ur Small(A) Negative [facility] ([place]) Blood, ur Negative Negative [facility]) Urobilinogen, ur 0.2 0.2 - 1.0 [facility] ([place]) Comment:Normal Ranges: 0.2-1 .0 EU/dL Nitrites, ur Negative Negative [facility]) Leukocyte esterase, ur Small(A) Negative [facility] ([place]) Urine 08/23/2017 6:35 PM CDT 08/23/2017 6:37 PM CDT Narrative [facility] ([place]) - 08/23/2017 7:09 PM CDT us Billy Maher MD LAB MICROBIOLOGY - GENERAL ORDERABLES Final Result [facility] ([place]) [address] [facility] [place] [address] * eGFR (08/23/2017 4:59 PM CDT) eGFR 50 mL/min/1.7 3 m2 [facility] ([place]) Comment: Interpretive Data Reference Interval Normal ?>/= 90 mL/min/1.73m2 Mildly decreased* ? 60 - 89 mL/min/1.73m2 Mildly to moderately decreased ?45 - 59 mL/min/1.73m2 Moderately to severely decreased ??30 - 44 mL/min/1.73m2 Severely decreased ?15 - 29 mL/min/1.73m2 Kidney Failure ?< 15 ??mL/min/1.73m2 *Relative to young adult level If -Nigerian multiply value by 1.16. Estimated glomerular filtration [...] was last reviewed 2015. Blood specimen (specimen) 08/23/2017 4:59 PM CDT 08/23/2017 5:25 PM CDT Narrative [facility] ([place]) - 08/23/2017 5:48 PM CDT Billy Maher MD LAB BLOOD ORDERABLES Final Result [facility] ([place] [address] [facility] [place] [address] * (ABNORMAL) Differential, auto (08/23/2017 4:59 PM CDT) Neutrophil pct 80.8(H) 44.0 - 80.0 % [facility] ([place]) Imm gran pct 0.3 0.0 - 1.0 % [facility] ([place]) Lymphocyte pct 10.8(L) 13.0 - 44.0 % [facility] ([place]) Monocyte pct 7.7 2.0 - 11.0 % [facility]) Eosinophil pct 0.0 0.0 - 6.0 % [facility]) Basophil pct 0.4 0.0 - 3.0 % [facility]) Neutrophil abs 8.33(H) 1.60 - 7.00 K/cumm [facility] ([place]) Imm gran abs 0.03 0.00 - 0.20 K/cumm [facility] ([place]) Lymphocyte abs 1.11 0.50 - 4.30 K/cumm [facility] ([place]) Monocyte abs 0.79 0.10 - 1.00 K/cumm [facility] ([place]) Eosinophil abs 0.00 0.00 - 0.60 K/cumm [facility] ([place]) Basophil abs 0.04 0.00 - 0.30 K/cumm [facility]) Blood specimen (specimen) 08/23/2017 4:59 PM CDT 08/23/2017 5:25 PM CDT Narrative [facility] ([place]) - 08/23/2017 5:27 PM CDT us Billy Maher MD LAB BLOOD ORDERABLES Final Result [facility] ([place]) [address] [facility] [place] [address] * Magnesium (08/23/2017 4:59 PM CDT) Magnesium 1.8 1.6 - 2.4 mg/dL [facility]) Blood specimen (specimen) 08/23/2017 4:59 PM CDT 08/23/2017 5:25 PM CDT Narrative [facility] ([place]) - 08/23/2017 5:48 PM CDT us Billy Maher MD LAB BLOOD ORDERABLES Final Result [facility]) [address] [facility] [place] [address] * (ABNORMAL) Basic metabolic panel (08/23/2017 4:59 PM CDT) Sodium 131(L) 135 - 145 mmol/L [facility] ([place]) Potassium, pl 4.1 3.3 - 4.9 mmol/L [facility]) Chloride 88(L) 97 - 110 mmol/L [facility]) CO2 28 22 - 32 mmol/L [facility]) BUN 16 8 - 25 mg/dL [facility] ([place]) Glucose 149 70 - 199 mg/dL [facility] ([place]) [...] interpretive data was last revised 2017. Creatinine 1.21(H) 0.60 - 1.10 mg/dL [facility] Calcium 8.7 8.5 - 10.3 mg/dL [facility] Anion gap 15 2 - 15 mmol/L [facility] Blood specimen (specimen) 08/23/2017 4:59 PM CDT 08/23/2017 5:25 PM CDT Narrative [facility] ([place]) - 08/23/2017 5:48 PM CDT Billy Maher MD LAB BLOOD ORDERABLES Final Result [facility] ([place]) [address] [facility] [place] [address] * Protime-INR (08/23/2017 4:59 PM CDT) PT 12.9 9.5 - 13.0 sec [facility] ([place]) INR 1.14 0.90 - 1.20 [facility] ([place]) Comment: Interpretive Data Recommended ranges for Protime INR: 2.0 - 3.0 Most indications for Warfarin therapy (e.g. Treatment of DVT, PE, bioprosthetic valve replacement, prophylaxis venous thrombosis, atrial fibrillation). 2.5 - 3.5 Mechanical mitral valve or dual mechanical mitral and Aortic valve replacement. Current Interpretive Data was last revised on 2015. Blood specimen (specimen) 08/23/2017 4:59 PM CDT 08/23/2017 5:25 PM CDT Narrative [facility] ([place]) - 08/23/2017 5:43 PM CDT Billy Maher MD LAB BLOOD ORDERABLES Final Result Performing Organization Address City/[facility]/ZIP Co de Phone Number [facility] ([place]) [address] [facility] [employer] [address] [place] [address] * Lipase (08/23/2017 4:59 PM CDT) Pathologist [facility] Lipase 14 10 - 99 Units/L [facility] ([place]) Blood specimen (specimen) 08/23/2017 4:59 PM CDT 08/23/2017 5:25 PM CDT Narrative [facility] ([place]) - 08/23/2017 5:48 PM CDT Billy Maher MD LAB BLOOD ORDERABLES Final Result [facility] [address] [facility] [place] [address] * (ABNORMAL) Hepatic function panel (08/23/2017 4:59 PM CDT) Pathologist [facility] AST 24 10 - 45 Units/L [facility]) ALT 10 7 - 45 Units/L [facility] ([place]) Alk phos 189(H) 40 - 130 Units/L [facility] ([place]) Bilirubin, total 0.6 0.1 - 1.2 mg/dL [facility] ([place]) Bilirubin, direct <0.2 0.1 - 0.3 mg/dL [facility] ([place]) Protein, pl 5.5(L) 6.5 - 8.5 g/dL [facility]) Albumin 2.6(L) 3.5 - 5.0 g/dL [facility]) Blood specimen (specimen) 08/23/2017 4:59 PM CDT 08/23/2017 5:25 PM CDT Narrative [facility] ([place]) - 08/23/2017 5:48 PM CDT Billy Maher MD LAB BLOOD ORDERABLES Final Result [facility] [address] [facility] [place] [address] * (ABNORMAL) CBC with auto differential (08/23/2017 4:59 PM CDT) WBC 10.3(H) 3.8 - 9.9 K/cumm [facility] ([place]) RBC 3.16(L) 3.90 - 5.20 M/cumm [facility] ([place]) Hgb 10.0(L) 11.9 - 15.5 g/dL [facility]) Hct 27.9(L) 35.6 - 45.5 % [facility] ([place]) MCV 88.3 81.3 - 96.4 fL [facility] ([place]) MCH 31.6 27.1 - 33.3 pg [facility] ([place]) MCHC 35.8(H) 32.3 - 35.7 g/dL [facility]) RDW CV 12.9 11.1 - 14.9 % [facility]) RDW SD 41.5 35.7 - 48.1 fL [facility] ([place]) Plt 678(H) 150 - 400 K/cumm [facility]) MPV 8.0(L) 9.1 - 12.3 fL [facility] ([place]) NRBC abs 0.00 0.00 - 0.01 K/cumm [facility] ([place]) Blood specimen (specimen) 08/23/2017 4:59 PM CDT 08/23/2017 5:25 PM CDT Narrative [facility] ([place]) - 08/23/2017 5:27 PM CDT Billy Maher MD LAB BLOOD ORDERABLES Final Result [facility] ([place]) [address] [facility] [place] [address] * XR Abdomen Ap 1 Vw (08/23/2017 4:54 PM CDT) Anatomical Region Laterality Modality Body, Abdomen N/A Computed Radiogr aphy Impressions 08/23/2017 4:57 PM CDT 1. Nonspecific bowel gas pattern Electronically signed by: Ray Roberts M.D. Narrative 08/23/2017 4:57 PM CDT EXAM: XR ABDOMEN AP 1 VIEW HISTORY: ABDOMINAL PAIN. COMPARISON: None FINDINGS: The bowel gas pattern is nonspecific. ??Surgical clips in the right upper quadrant suggest prior cholecystectomy. ??No pathologic calcifications are seen. ??Free air cannot be excluded on supine views of the abdomen. Procedure Note Ray Roberts MD - 08/23/2017 EXAM: XR ABDOMEN AP 1 VIEW HISTORY: ABDOMINAL PAIN. COMPARISON: None FINDINGS: The bowel gas pattern is nonspecific. Surgical clips in the right upper quadrant suggest prior cholecystectomy. No pathologic calcifications are seen. Free air cannot be excluded on supine views of the abdomen. IMPRESSION: 1. Nonspecific bowel gas pattern Electronically signed by: Ray Roberts M.D. Billy Maher MD IMG XR PROCEDURES Final Res ult * XR Chest 1 Vw Portable (08/23/2017 4:54 PM CDT) Anatomical Region Laterality Modality Body, Chest N/A Computed Radiogr aphy Impressions 08/23/2017 4:57 PM CDT No acute cardiopulmonary process. Electronically signed by: Ray Roberts M.D. Narrative 08/23/2017 4:57 PM CDT EXAM: Chest; AP portable at 1650 HISTORY: Dyspnea. COMPARISON: None FINDINGS: The right hemidiaphragm is elevated. ??The heart is normal in size. No consolidation, pneumothorax, or pleural effusions are seen. Procedure Note Ray Roberts MD - 08/23/2017 EXAM: Chest; AP portable at 1650 HISTORY: Dyspnea. COMPARISON: None FINDINGS: The right hemidiaphragm is elevated. The heart is normal in size. No consolidation, pneumothorax, or pleural effusions are seen. IMPRESSION: No acute cardiopulmonary process. Electronically signed by: Ray Roberts M.D. Billy Maher MD IMG XR PROCEDURES Final Res ult documented in this encounter Visit Diagnoses Diagnosis Ascites- Primary Intractable vomiting with nausea, unspecified vomiting type 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 (CMS/HCC) (HCC) Malnutrition compromising bodily function (CMS/HCC) (HCC) Malignant cachexia (CMS/HCC) (HCC) SALGADO (nonalcoholic steatohepatitis) Other chronic nonalcoholic liver disease Hypotension Unspecified hypotension Anxiety Anxiety state, unspecified Chronic hyponatremia Hyposmolality and/or hyponatremia Abdominal pain Abdominal pain, unspecified site documented in this encounter Administered Medications Inactive Administered Medications - up to 3 most recent administrations Medication Order MAR Action Action Date Dose Rate Site albumin 25 % bottle 25 g 25 g, intravenous, Once, On Wed08/24/17 at 1500, For 1 dose New Bag 08/24/2017 4:07 PM CDT 25 g ALPRAZolam (XANAX) tablet 0.25 mg 0.25 mg, oral, 3 times daily PRN, anxiety, sleep, Starting on Wed08/24/17 at 2129 Given 08/24/2017 10:35 PM CDT 0.25 mg bisacodyl EC (DULCOLAX EC) tablet 10 mg 10 mg, oral, Daily PRN, constipation, If no results 24 hours after milk of magnesia, Starting on Wed08/25/17 at 0313, Do not crush or chew dextrose 5% and Lactated Ringer's infusion 75 mL/hr, intravenous, Continuous, Starting on Wed08/23/17 at 2130 New Bag 08/23/2017 9:56 PM CDT 75 mL/hr 75 mL/hr diphenhydrAMINE (BENADRYL) injection 12.5 mg 12.5 mg, intravenous, Once, On Wed08/23/17 at 2000, For 1 dose Given 08/23/2017 8:20 PM CDT 12.5 mg lidocaine (XYLOCAINE) 10 mg/mL (1 %) preservative free injection Code/trauma/sedation medication, Starting on Wed08/24/17 at 1126, Intra-Procedure (IR), Indications: Administration of Local AnesthesiaIndications:Ad ministration of Local Anesthesia Given 08/24/2017 11:26 AM CDT 5 mL Abdominal Tissue LORazepam (ATIVAN) injection 0.5 mg 0.5 mg, intravenous, Once, On Wed08/23/17 at 1645, For 1 dose Given 08/23/2017 4:46 PM CDT 0.5 mg Left Antecubital LORazepam (ATIVAN) injection 0.5 mg 0.5 mg, intravenous, Every 6 hours PRN, other, nausea, anxiety, Starting on Wed08/23/17 at 2053 Given 08/24/2017 1:03 PM CDT 0.5 mg Given 08/24/2017 3:33 AM CDT 0.5 mg Given 08/23/2017 9:56 PM CDT 0.5 mg magnesium hydroxide (MILK OF MAGNESIA) 80 mg/mL oral suspension 30 mL 30 mL, oral, Daily PRN, constipation, Starting on Wed08/25/17 at 0313 metoclopramide (REGLAN) injection 5 mg 5 mg, intravenous, Once, On Wed08/23/17 at 2000, For 1 dose Given 08/23/2017 8:23 PM CDT 5 mg metoclopramide (REGLAN) injection 5 mg 5 mg, intravenous, Every 8 hours scheduled, First dose on Wed08/23/17 at 2200 Given 08/25/2017 5:19 AM CDT 5 mg Given 08/24/2017 10:35 PM CDT 5 mg Given 08/24/2017 1:04 PM CDT 5 mg midodrine (PROAMATINE) tablet 5 mg 5 mg, oral, 3 times daily after meals, First dose on Wed08/24/17 at 0830, Hold for SBP >110, Indications: Symptomatic Orthostatic HypotensionIndications:Symptomatic Orthostatic Hypotension Given 08/25/2017 8:32 AM CDT 5 mg Given 08/24/2017 6:40 PM CDT 5 mg Given 08/24/2017 12:59 PM CDT 5 mg mineral oil (FLEET MINERAL OIL) enema 1 enema 1 enema, rectal, Daily PRN, constipation, if no results 24 hours after bisacodyl, Starting on Wed08/25/17 at 0313, Indications: constipationIndications:constip ation ondansetron (ZOFRAN) injection 4 mg 4 mg, intravenous, Once, On Wed08/23/17 at 1645, For 1 dose Given 08/23/2017 4:46 PM CDT 4 mg Left Antecubital ondansetron (ZOFRAN) injection 4 mg 4 mg, intravenous, Every 6 hours PRN, nausea, vomiting, Starting on Wed08/23/17 at 2053 Given 08/24/2017 2:51 AM CDT 4 mg sodium chloride 0.9% flush 0.5-20 mL 0.5-20 mL, intra-catheter, Every 8 hours scheduled, First dose on Wed08/24/17 at 0600, Flush volume based on line type and size. , Indications: FlushingIndications:Flushing Given 08/25/2017 5:19 AM CDT 10 mL Given 08/24/2017 10:35 PM CDT 10 mL Given 08/24/2017 1:04 PM CDT 10 mL sodium chloride 0.9% infusion 125 mL/hr, intravenous, Continuous, Starting on Wed08/23/17 at 1645 New Bag 08/23/2017 4:38 PM CDT 125 mL/hr 125 mL/hr Left Antecubital documented in this encounter Historical Medications * This list may reflect changes made after this encounter. multivit egchxcrz-gies-XE- calcium (THERA-M) 9 mg iron-400 mcg tabletIndications :Vitamin Deficiency Prevention Take 1 tablet by mouth 06/03/2017 multivitamin with minerals tablet Take 1 tablet by mouth daily. 06/03/2017 cyclobenzaprine (FLEXERIL) 10 mg tablet Take 10 mg by mouth 3 (three) times a day as needed. 08/06/2017 folic acid (FOLVITE) 1 mg tablet Take 1 tablet (1 mg total) by mouth daily 07/02/2017 ALPRAZolam (XANAX) 0.5 mg tablet Take 0.5 tablets (0.25 mg total) by mouth 3 (three) times a day as needed 04/26/2017 thiamine (VITAMIN B-1) 50 mg tablet Take 50 mg by mouth daily. 07/02/2017 11/10/2019 traMADol (ULTRAM) 50 mg tablet Take 50 mg by mouth every 8 (eight) hours as needed. 05/07/2017 07/10/2019 promethazine (PHENERGAN) 25 mg tablet Take 25 mg by mouth every 8 (eight) hours as needed. 06/03/2017 07/10/2019 ondansetron (ZOFRAN) 4 mg tablet Take 4 mg by mouth every 8 (eight) hours as needed. 05/26/2017 07/10/2019 midodrine (PROAMATINE) 5 mg tabletIndications :Symptomatic Orthostatic Hypotension Take 5 mg by mouth 3 (three) times a day. 08/08/2017 07/10/2019 added in this encounter Active and Recently Administered Medications Times are shown in CDT. Scheduled Medication Order 08/23/2017 08/24/2017 08/25/2017 albumin 25 % bottle 25 g (COMPLETED) 25 g, intravenous, Once, On Wed08/24/17 at 1500, For 1 dose 1607 (New Bag - Provider: Princess Levine, ALEJANDRO) diphenhydrAMINE (BENADRYL) injection 12.5 mg (COMPLETED) 12.5 mg, intravenous, Once, On Wed08/23/17 at 2000, For 1 dose 2019 (Given - Provider: Emily Hahn, ALEJANDRO) LORazepam (ATIVAN) injection 0.5 mg (COMPLETED) 0.5 mg, intravenous, Once, On Wed08/23/17 at 1645, For 1 dose 164 (Given - Provider: Michael Marino RN) metoclopramide (REGLAN) injection 5 mg (COMPLETED) 5 mg, intravenous, Once, On Wed08/23/17 at 2000, For 1 dose 2022 (Given - Provider: Emily Hahn RN) metoclopramide (REGLAN) injection 5 mg 5 mg, intravenous, Every 8 hours scheduled, First dose on Wed08/23/17 at 2200 2155 (Given - Provider: Judith Naylor RN) 0606 (Given - Provider: Judith Naylor RN)1304 (Given - Provider: Katerina Deutsch, ALEJANDRO)2235 (Given - Provider: Judith Naylor, ALEJANDRO) 0519 (Given - Provider: Judith Naylor RN) midodrine (PROAMATINE) tablet 5 mg 5 mg, oral, 3 times daily after meals, First dose on Wed08/24/17 at 0830, Hold for SBP >110, Indications: Symptomatic Orthostatic Hypotension 0931 (Given - Provider: Leigh Eckert RN)1259 (Given - Provider: Katerina Deutsch RN)1840 (Given - Provider: Princess Levine, ALEJANDRO) 0832 (Given - Provider: Obdulia Gaona, ALEJANDRO) ondansetron (ZOFRAN) injection 4 mg (COMPLETED) 4 mg, intravenous, Once, On Wed08/23/17 at 1645, For 1 dose 1646 (Given - Provider: Michael Marino RN) sodium chloride 0.9% flush 0.5-20 mL 0.5-20 mL, intra-catheter, Every 8 hours scheduled, First dose on Wed08/24/17 at 0600, Flush volume based on line type and size. , Indications: Flushing 0605 (Not Given - Provider: Judith Naylor RN - Reason: Other - Comment: IV infusing )1304 (Given - Provider: Katerina Deutsch, ALEJANDRO)2235 (Given - Provider: Judith Naylor, ALEJANDRO) 0519 (Given - Provider: Judith Naylor, ALEJANDRO) Continuous Medication Order 08/23/2017 08/24/2017 08/25/2017 dextrose 5% and Lactated Ringer's infusion (CANCELED) 75 mL/hr, intravenous, Continuous, Starting on Wed08/23/17 at 2130 2156 (New Bag - Provider: Judith Naylor RN) sodium chloride 0.9% infusion (CANCELED) 125 mL/hr, intravenous, Continuous, Starting on Wed08/23/17 at 1645 1638 (New Bag - Provider: Michael Marino RN) PRN Medication Order 08/23/2017 08/24/2017 08/25/2017 acetaminophen (TYLENOL) tablet 650 mg 650 mg, oral, Every 4 hours PRN, 1st line for pain, fever, fever greater than 38.3 C, Starting on Wed08/24/17 at 0442, Indications: Fever, Pain ALPRAZolam (XANAX) tablet 0.25 mg 0.25 mg, oral, 3 times daily PRN, anxiety, sleep, Starting on Wed08/24/17 at 2129 2235 (Given - Provider: Judith Naylor RN) bisacodyl EC (DULCOLAX EC) tablet 10 mg 10 mg, oral, Daily PRN, constipation, If no results 24 hours after milk of magnesia, Starting on Wed08/25/17 at 0313, Do not crush or chew lidocaine (XYLOCAINE) 10 mg/mL (1 %) preservative free injection (COMPLETED) Code/trauma/sedation medication, Starting on Wed08/24/17 at 1126, Intra-Procedure (IR), Indications: Administration of Local Anesthesia 1126 (Given - Provider: Aakash Nieto MD - Comment: Paracentesis) LORazepam (ATIVAN) injection 0.5 mg 0.5 mg, intravenous, Every 6 hours PRN, other, nausea, anxiety, Starting on Wed08/23/17 at 2053 2156 (Given - Provider: Judith Naylor RN) 0333 (Given - Provider: Judith Naylor RN)1303 (Given - Provider: Katerina Deutsch RN) magnesium hydroxide (MILK OF MAGNESIA) 80 mg/mL oral suspension 30 mL 30 mL, oral, Daily PRN, constipation, Starting on Wed08/25/17 at 0313 mineral oil (FLEET MINERAL OIL) enema 1 enema 1 enema, rectal, Daily PRN, constipation, if no results 24 hours after bisacodyl, Starting on Wed08/25/17 at 0313, Indications: constipation ondansetron (ZOFRAN) injection 4 mg 4 mg, intravenous, Every 6 hours PRN, nausea, vomiting, Starting on Wed08/23/17 at 2053 0251 (Given - Provider: Judith Naylor, ALEJANDRO) sodium chloride 0.9% flush 0.5-20 mL 0.5-20 mL, intra-catheter, As needed, line care, Starting on Wed08/24/17 at 0442, Flush volume based on line type and size. Flush before and after each use. , Indications: Flushing documented in this encounter Orders Medications Ordered That William ht Not Have Been Administered Count Last Ordered Date First Ordered Date bisacodyl EC (DULCOLAX EC) tablet 10 mg 1 0 08/25/2017 magnesium hydroxide (MILK OF MAGNESIA) 80 mg/mL oral suspension 30 mL 1 08/25/2017 mineral oil (FLEET MINERAL O [place]) enema 1 enema 1 08/25/2017 acetaminophen (TYLENOL) tablet 650 mg 1 02/2018 sodium chloride 0.9% flush 0.5-20 mL 1 08/15 enoxaparin (LOVENOX) syringe 40 mg 1 2017 Diet Count Last Ordered Date First Orde red Date ADULT DISCHARGE DIET 1 08/25/2017 Nursing Count Last Ordered Date First Orde red Date DISCHARGE ACTIVITY 1 08/25/2017 FOLLOW UP PRIMARY PHYSICIAN 1 08/25/[address] SEQUENTIAL COMPRESSION DEVICE 1 08/24 WEIGH PATIENT 2 08/24/2017 08/23/2017 Admission Count Last Ordered Date First Orde red Date ASSIGN PATIENT STATUS 2 08/28/20172017 Discharge Count Last Ordered Date First Orde red Date DISCHARGE PATIENT 1 08/25/2017 CORE MEASURES Count Last Ordered Date First Ord ered Date REASON FOR NO VTE PROPHYLAXI S - HOSPITAL ADMISSION - MEDICATIONS 1 08/24/2017 ADT Patient Update Count Last Ordered Date Firs t Ordered Date ED IP DECISION TO ADMIT 2 08/28/2017 0401/2018 documented in this encounter Care Teams Programs Assistant Relationship Specialty Start Date End Date Fernie Barfield DO PCP - General 02/04/17 documented as of this encounter
--- OUTSIDE RECORDS SUMMARY | 2024-05-03 11:23 | XMS_ITS | Encounter Summary ---
Author Organization [facility] Healthcare Address [address] [place] [address] Care Team Providers Care Paper Twister Tender Name Role Phone Fernie Barfield DO Primary Care Provider [phone] Encounter Details Date Type Department Care Team (Late st Contact Info) Description 08/24/2017 Orders Only [facility] [address] [place] [id number] Ria López RN Social History Tobacco Use Types Packs/Day Years Used Date Smoking Tobacco: Every Day Cigarettes Smokeless Tobacco: Never Alcohol Use Standard Drinks/Week Comments No 0 (1 standard drink = 0.6 oz pur e alcohol) Comments No Sex and Gender Information Value Date Recorded Sex Assigned at Not on file 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
--- OUTSIDE RECORDS SUMMARY | 2024-05-03 11:25 | XMS_ITS | Patient Health Record ---
Author Organization [facility] Address [address] [place] [id number] Care Team Providers Care Paper Conservator Name Role Phone Fernie Barfield DO Primary Care Provider Unavail able EricaBora Unavailable [phone] ALLERGIES Allergen (clinical drug ingredient) Drug/Non Drug Allergy documented on EMR Reaction Allergy Type Onset Date Status meperidine Demerol Unknown Drug Allergy Active REASON FOR REFERRAL No Information MEDICATIONS Medication SIG (Take, Route, Fr equency, Duration) Notes Start Date End Date Status Flonase 50 MCG/ACT 1 spray in each nost ril Nasally Once a day Active Probiotic - Orally Active Xanax 0.5 MG 1 tablet Orally as needed Active Multivitamin Women - Orally Active Zofran 4 MG 1 tablet Orally PRN TID Active traMADol HCl 50 MG 1 tablet as needed O rally every 6 hrs Active IMMUNIZATIONS Vaccine Route Administration Date Status Comme nts Influenza Unknown 04/19/2017 Pending Influenza Unknown 04/28/2018 Pending SOCIAL HISTORY Tobacco Use: Social History Observation Description Date Details (start date - stop date) Current Smoker NA - NA Sex Assigned At : Social History Observation Description Sex Assigned At Unknown Tobacco Use/Smoking Question Answer Notes You are a current smoker How often do you smoke cigarettes? every day How many cigarettes a day do you smoke? 11-20 PROBLEMS Problem Type ICD Code Onset Dates Problem Status W/U Status Risk SNOMED Code Notes Problem Acute kidney failure, unspecified (N17.9) Active confirmed Acute renal failure syndrome (46138286) Problem Hypo-osmolality and hyponatremia (E87.1) Active confirmed Hypo-osmolality and or hyponatremia (627924141) Problem Edema, unspecified (R60.9) Active confirmed Edema (65742276) PLAN OF TREATMENT Pending Test Test Name Order Date RENAL PANEL 04/07/2017 Future Test Test Name Order Date RENAL PANEL 04/05/2018 CBC without Differential 04/05/2018 Insurance Providers Payer Name Payer Address Payer Phone Subscriber Number Group Number Insured Name Patient Relationship to Insured Coverage Start Date Coverage End Date Maria Eugenia [address] [place] [address] [id number] Rosa Li Self - patient is the insured MEDICAL (GENERAL) HISTORY Medical History History ICD Code hyptertension cholestatic liver disease hyponatremia hypokalemia 03/26/2017: US Abd Paracente sis: Impression: ultrasound-guided paracentesis without immediate complication. 03/26/2017: XR Chest 2 Views : Impression: Pulmonary vascular congestion with left greater than right pleural effusions and bibasal atelectasis. Patchy infiltrates in the right perihilar region and right upper lobe. Surgical History Surgery Date(Month/Year) lab jatin ERCP EGD Hospitalization History Reason Date(Month/Year) [place] 03/22/2017- 7 [place]-acute renal failure 03/25/2017 -03/30/2017
== END 2024-04-29 11:45 | disposition home or self-care (01) ==
LOC: ANHIMG 11:52
PROVIDERS: PCP Nurse Practitioner Family; Visit Provider Nurse Practitioner Family
DX: Z12.31 Encounter for screening mammogram for malignant neoplasm of breast (principal)
CPT/HCPCS: 77063; 77067

== ENCOUNTER 2024-06-27 11:35 | Outpatient (CLI) | payer OTHER, SELFPAY ==
--- OUTSIDE RECORDS SUMMARY | 2024-06-27 12:51 | XMS_ITS | Clinical Summary ---
Author Organization [facility] Address [address], [address] [address] Phone Care Team Providers Care Acquisitions Logistics Analyst Name Role Phone Fernie Barfield DO Primary Care Provider Medications traMADol (ULTRAM) 50 MG Tablet Take [...] 71 11/10/2017 4:15 PM CDT Temperature 36.5 C (97.7 F) 11/10/2017 4:15 PM CDT Respiratory Rate 20 11/10/2017 4:15 PM CDT [...] Immunochemical Fecal Occult Blood 10/27/2011 Mammogram 10/27/2011 Pneumococcal Immunization (5 0+ years) (1 of 1 - PCV) 10/27/2011 Zoster Immunization (1 of 2) 10/27/2011 Influenza Immunization (#1) 2024 SARS-COV-2 Immunization ( - 2023- season) 2024 Respiratory Syncytial Virus (RSV) Immunization (Adult) (1 - 1-dose 75+ series) 2036 Hepatitis B Immunization Aged Out No longer [...] patient's age to complete this topic [place] [address] [place] [address] Care Teams Acquisitions Logistics Analyst Relationship Specialty Start Date End Date Fernie Barfield DO [address] [place] [id number] PCP - General Internal Medicine 12/17/16
--- OUTSIDE RECORDS SUMMARY | 2024-06-27 12:51 | XMS_ITS | Referral Summary ---
Author Organization [facility] [address] [facility] lt Address [address] [place] [address] Care Team Providers Care Mixer Operator Name Role Phone Fernie Barfield DO Primary Care Provider [phone] Allergies Active Allergy Reactions Criticality Noted Date [...] tablet by mouth daily. 06/03/2017 Active multivit vamxvwvr-nogx-D A-calcium (THERA-M) 9 mg iron-400 mcg tabletIndicatio [...] IV to increase oncotic pressures Will get optoelectronics engineer on board to assist with the management HERNANDEZ (nonalcoholic steatohepatitis) 08/24/2017 Assessment & Plan (10/12/2017 4:20 AM CDT): History of HERNANDEZ, follows in [facility] hepatology Clinic. Has an appointment [...] AM CDT): Patient follows with GI at [facility]. Patient has an appointment in September. 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 Gender Identity Not on file Sexual Orientation Not on file Last Filed Vital Signs Vital Sign Reading Time Taken Comments Blood Pressure 121/77 12/07/2022 8:48 AM CDT Pulse 79 12/07/2022 8:48 AM CDT Temperature 36.6 C (97.8 F) 07/08/2020 8:52 AM TREE AND SHRUB WORKER Respiratory Rate 20 10/10/2021 9:19 AM CDT [...] Advance Directives For more information, please contact: [phone] * Full Code (Latest Code Status on File) Date Activated Date Inactivated Comments 10/12/2017 1:13 AM 10/14/2017 9:47 PM * Full Code Date Activated Date Inactivated Comments 10/11/2017 11:48 PM 10/12/2017 1:13 AM * Full Code Date Activated Date Inactivated Comments 08/23/2017 8:53 PM 08/25/2017 1:57 PM Care Teams Mixer Operator Relationship Specialty Start Date End Date Fernie Barfield DO PCP - General 02/04/17
--- OUTSIDE RECORDS SUMMARY | 2024-06-27 12:51 | XMS_ITS | Patient Health Record ---
Author Organization [facility] Address [address] [place] [phone] Care Team Providers Care Italian Tutor Name Role Phone Fernie Barfield DO Primary Care Provider Unavail able EricaBora Unavailable [phone] ALLERGIES Allergen (clinical drug ingredient) Drug/Non Drug [...] (N17.9) Active confirmed Acute renal failure syndrome (19555410) Problem Hypo-osmolality and hyponatremia (E87.1) Active confirmed Hypo-osmolality and or hyponatremia (095724836) Problem Edema, unspecified (R60.9) Active confirmed Edema (44387552) PLAN OF TREATMENT Pending Test Test Name Order Date RENAL PANEL 04/07/2017 Future Test Test Name Order Date RENAL PANEL 04/05/2018 CBC without Differential 04/05/2018 Insurance Providers Payer Name Payer Address Payer Phone Subscriber Number Group Number Insured Name Patient Relationship to Insured Coverage Start Date Coverage End Date Maria Eugenia [address] [facility] [place] [address] 7223 [id number] Rosa Li Self - patient is the [...] jatin ERCP EGD Hospitalization History Reason Date(Month/Year) [place] 03/22/2017- 7 [place]-acute renal failure 03/25/2017 -03/30/2017
--- OUTSIDE RECORDS SUMMARY | 2024-06-27 12:51 | XMS_ITS | Referral Summary ---
Author Organization [facility] Address [address] [place] [address] Care Team Providers Care Contact Lens Assistant Name Role Phone Fernie Barfield DO Primary Care Provider Source Comments [facility],non-owned Affiliates and Associated Physician Practices is amultiple site organization consisting of ambulatory clinics and hospital sitesin [place], [place], [place] and [place]. This disclosure is being madepursuant to the Care Everywhere program and may not contain all information available regarding this patient. Last updated 18.[facility] [employer] Allergies Active Allergy Reactions Criticality Noted Date [...] & Plan: History of SALGADO, follows in [facility] hepatology Clinic. Has an appointment this coming [...] 76 02/21/2021 11:10 AM CDT Temperature 36.2 C (97.1 F) 04/26/2020 10:30 AM BOARD SAW RUNNER Respiratory Rate 18 04/26/2020 10:30 AM BOARD SAW RUNNER Oxygen Saturation 100% 04/26/2020 10:30 AM BOARD SAW RUNNER Inhaled Oxygen Concentration 24% 10/27/2017 7 :00 [...] as prescribed Medical Devices Implanted Type Area Fire Suppression Captain Device Identifier Shelf Expiration Date Model / Serial / Lot Cath Dlys Dura-Flw 15.5fr X 24cm Implanted:Qty: 1 on 10/28/2017 by Nathalie Kerns MD at [facility] Right: Chest [employer] 02/14/2020 [id number] / / [id number] Description:RIJ Procedures Procedure Name Priority Date/Time Associated [...] p24 Antigen nor HIV-1/HIV-2 Antibodies are detected. Blood BLOOD SPECIMEN / Unknown Venipuncture / Unknown 10/18/2017 1:54 PM CDT 10/18/2017 2:01 PM CDT Elver Askew MD LAB - HEMATOLOG Y ORDERABLES Performing Organization Address City/State/[facility] Co de Phone Number [address] [phone] * HEPATITIS SCREEN ACUTE (10/18/2017 1:54 PM [...] tive 10/18/2017 3:08 PM CDT [facility] Comment: Hepatitis C Antibody screen [...] LAB - CHEMISTRY ORDERABLES [facility] [address] [phone] from Last 3 Months or Most Recently Relevant to Health Maintenance Advance Directives * Full Code (Latest Code Status on File) Date Activated Date Inactivated Comments 10/14/2017 8:36 PM 11/03/2017 6:52 PM Care Teams Contact Lens Assistant Relationship Specialty Start Date End Date Fernie Barfield DO [address] [place] [phone] PCP - General 04/14/17
--- OUTSIDE RECORDS SUMMARY | 2024-06-27 12:51 | XMS_ITS | Clinical Summary ---
Author Organization [address] lt Address [address] [place] [address] Care Team Providers Care Forestry Scientist Name Role Phone Fernie Barfield DO Primary [...] tablet by mouth daily. 06/03/2017 Active multivit gcqdudez-nmsd-H A-calcium (THERA-M) 9 mg iron-400 mcg tabletIndicatio [...] IV to increase oncotic pressures Will get head worker on board to assist with the management HERNANDEZ (nonalcoholic steatohepatitis) 08/24/2017 Assessment & Plan (10/12/2017 4:20 AM CDT): History of HERNANDEZ, follows in [facility] hepatology Clinic. Has an appointment this [...] AM CDT): Patient follows with GI at [facility]. Patient has an appointment in September. 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 Gender Identity Not on file Sexual Orientation Not on file Obstetrics History Last Filed Vital Signs Vital Sign Reading Time Taken Comments Blood Pressure 121/77 12/07/2022 8:48 AM CDT Pulse 79 12/07/2022 8:48 AM CDT Temperature 36.6 C (97.8 F) 07/08/2020 8:52 AM BOILER FITTER Respiratory Rate 20 10/10/2021 9:19 AM CDT [...] Advance Directives For more information, please contact: [phone] * Full Code (Latest Code Status on File) Date Activated Date Inactivated Comments 10/12/2017 1:13 AM 10/14/2017 9:47 PM * Full Code Date Activated Date Inactivated Comments 10/11/2017 11:48 PM 10/12/2017 1:13 AM * Full Code Date Activated Date Inactivated Comments 08/23/2017 8:53 PM 08/25/2017 1:57 PM Care Teams Forestry Scientist Relationship Specialty Start Date End Date Fernie Barfield DO PCP - General 02/04/17
--- OUTSIDE RECORDS SUMMARY | 2024-06-27 12:51 | XMS_ITS | Clinical Summary ---
Author Organization [facility] [email or web address] Address [address] [place] [address] Care Team Providers Care Sander Machine Name Role Phone Fernie Barfield DO Primary Care Provider Source Comments [facility],non-owned Affiliates and Associated Physician Practices is amultiple site organization consisting of ambulatory clinics and hospital sitesin [place], [place], [place] and [place]. This disclosure is being madepursuant to the Care Everywhere program and may not contain all informatio navailable regarding this patient. Last updated 18.[facility] [email or web address] Allergies Active Allergy Reactions Criticality Noted Date [...] & Plan: History of SALGADO, follows in [facility] hepatology Clinic. Has an appointment this [...] 36.2 C (97.1 F) 04/26/2020 10:30 AM FASTENER TECHNOLOGIST Respiratory Rate 18 04/26/2020 10:30 AM FASTENER TECHNOLOGIST Oxygen Saturation 100% 04/26/2020 10:30 AM FASTENER TECHNOLOGIST Inhaled Oxygen Concentration 24% 10/27/2017 7 :00 [...] TESTING 1961 MAMMOGRAM 1961 PAP SMEAR 1961 DTAP/TDAP/TD VACCINES (1 - Tdap) 1980 PNEUMOCOCCAL VACCINE 50+ (1 of 2 - PCV) 1980 PNEUMOCOCCAL VACCINE (1 of 2 - PCV) 1980 ZOSTER VACCINE (1 of 2) 10/27/2011 HEPATITIS B VACCINE (1 of 3 - Risk 3-dose series) 2021 Respiratory Syncytial Virus (RSV) Vaccine Pt: or over 60 yrs (1 - Risk 60-74 years 1-dose series) 2021 COVID-19 VACCINE (1 - 2023-2 5 season) 2024 INFLUENZA VACCINE (#1) 2024 DEPRESSION SCREENING 05/17/2024 HEPATITIS C SCREENING Completed 10/18/2017 HIV SCREENING Completed 10/18/2017 HIB VACCINE Aged Out No longer eligi ble based on patient's age to complete this topic HPV VACCINE Aged Out No longer eligi ble based on patient's age to complete this topic MENINGOCOCCAL (Group B) VACCINE Aged Out No longer eligible based on [...] as prescribed Medical Devices Implanted Type Area Assistant Pastry Chef Device Identifier Shelf Expiration Date Model / Serial / Lot Cath Dlys Dura-Flw 15.5fr X 24cm Implanted:Qty: 1 on 10/28/2017 by Nathalie Kerns MD at [facility] Right: Chest [employer] 02/14/2020 [id number] / / [id number] Description:RIJ Procedures Procedure Name Priority Date/Time Associated Diagnosis Comments HEPATITIS SCREEN ACUTE Routine 10/18/2017 1:54 PM CDT HIV-1 HIV-2 ANTIGEN/ANTIBODY Routine 10/18/2017 1:54 PM CDT from Last 3 Months or Most Recently Relevant to Health Maintenance Results * HIV-1 HIV-2 ANTIGEN/ANTIBODY (10/18/2017 1:54 PM CDT) HIV Antigen/Antibod y 1 & 2 Non-reacti ve Non-react diana 10/18/2017 3:08 PM CDT [facility] Comment: Neither HIV-1 p24 Antigen nor HIV-1/HIV-2 Antibodies are detected. Blood BLOOD SPECIMEN / Unknown Venipuncture / Unknown 10/18/2017 1:54 PM CDT 10/18/2017 2:01 PM CDT Elver Askew MD LAB - HEMATOLOG Y ORDERABLES [address] [phone] * HEPATITIS SCREEN ACUTE (10/18/2017 1:54 PM CDT) Hepatitis A Virus Antibody IgM Non-react diana Non-reac tive 10/18/2017 3:08 PM CDT [facility] Hepatitis B Virus Surface Antigen Non-react diana Non-reac tive 10/18/2017 3:08 PM CDT [facility] Hepatitis B Core Virus Antibody IgM Non-react diana Non-reac tive 10/18/2017 3:08 PM CDT [facility] Hepatitis C Antibody Non-react diana Non-reac tive 10/18/2017 3:08 PM CDT [facility] Comment: Hepatitis C Antibody screen indicates [...] Elver Askew MD LAB - CHEMISTRY ORDERABLES [address] [phone] from Last 3 Months or Most Recently Relevant to Health Maintenance Advance Directives * Full Code (Latest Code Status on File) Date Activated Date Inactivated Comments 10/14/2017 8:36 PM 11/03/2017 6:52 PM Care Teams Sander Machine Relationship Specialty Start Date End Date Fernie Barfield DO [address] [place] [phone] PCP - General 04/14/17
--- OUTSIDE RECORDS SUMMARY | 2024-06-27 12:52 | XMS_ITS ---
Author Organization [facility] Address [address] [place] [address] Care Team Providers Care Process Design Chemical Engineer Name Role Phone Unavailable Unavailable Unavailable Allergies, Adverse Reactions, Alerts This patient has no known allergies or adverse reactions. Problems This patient has no known problems.
--- OUTSIDE RECORDS SUMMARY | 2024-06-27 12:52 | XMS_ITS | Patient Health Summary ---
Author Organization [facility] Address [address] [place] [address] Care Team Providers Care Desizing Pad Operator Name Role Phone Fernie Barfield DO Primary Care Provider [phone] [facility],non-owned Affiliates and Associated Physician Practices is amultiple site organization consisting of ambulatory clinics and hospital sitesin [place], [place], [place] and [place]. This disclosure is being madepursuant to the Care Everywhere program and may not contain all information available regarding this patient. Last updated 18.[facility] Allergies * Meperidine(Other) -Low Criticality [...] 36.2 C (97.1 F) 04/26/2020 10:30 AM REPAIR TABLE OPERATOR Respiratory Rate 18 04/26/2020 10:30 AM REPAIR TABLE OPERATOR Oxygen Saturation 100% 04/26/2020 10:30 AM REPAIR TABLE OPERATOR Inhaled Oxygen Concentration 24% 10/27/2017 7 :00 AM CDT Weight 58.5 kg (129 lb) 02/21/2021 11:10 AM CDT Height 154.9 cm (5' 1 ) 02/21/2021 11:10 AM CDT Body Mass Index 24.37 02/21/2021 11:10 AM CDT Medical Devices Implanted Type Area Health Promotion Coordinator Device Identifier Shelf Expiration Date Model / Serial / Lot Cath Dlys Dura-Flw 15.5fr X 24cm Implanted:Qty: 1 on 10/28/2017 by Nathalie Arevalo MD at [facility] Right: [employer] 02/14/2020 [id number] / / [id number] Description:RIJ Procedures * PT INR (EXTERNAL RESULT [...] TOTAL(Performed 10/18/2017) * IMMUNOFIXATION BLOOD(Performed 10/18/2017) * MPO/CT 3 AUTOANTIBODIES PANEL(Performed 10/18/2017) * ANTI-NEUTROPHIL CYTOPLASMIC [...] * PROTEIN BODY FLUID(Performed 10/15/2017) * CYTOLOGY NON-PROFESSIONAL SERVICES CONSULTANT PANEL (STL)(Performed 10/15/2017) Performed for Pleural effusion [...] MULTI PHASE W CONT (04/26/2020 10:12 AM REPAIR TABLE OPERATOR) Only the most recent of2 resultswithin the time period is included. Anatomical Region Laterality Modality Abdomen Computed Tomogra phy 04/26/2020 10:3 9 AM REPAIR TABLE OPERATOR Impressions 04/26/2020 2:44 PM REPAIR TABLE OPERATOR Impression: Multiple arterial enhancing observations throughout the liver as detailed above, consistent with LR [address] CT or MRI follow-up advised. Report drafted by Román Winslow (resident) I, Dr. SHAWN LOVE have personally reviewed and interpreted this examination/study. This report was electronically signed by SHAWN LOVE on 04/26/2020 2:44 PM . Narrative 04/26/2020 2:44 PM REPAIR TABLE OPERATOR Procedure Information DATE: 04/26/2020 10:13 AM EXAMINATION: [...] on 04/26/2020 2:44 PM . Sara Joaquin MOTORBOAT MECHANIC INBOARD/OUTBOARD-PATTERN GATER CT ORDERABLE S * CREATININE - POCT INTERFACED (04/26/2020 9:54 AM REPAIR TABLE OPERATOR) Creatinine POCT 0.80 0.30 - 1.30 mg/dL 04/26/2020 10:06 AM REPAIR TABLE OPERATOR [facility] eGFR >60 >60 mL/min/1.7 3 m2 04/26/2020 10:06 AM REPAIR TABLE OPERATOR [facility] Blood BLOOD SPECIMEN / Unknown 04/26/2020 9:54 AM REPAIR TABLE OPERATOR 04/26/2020 10:06 AM REPAIR TABLE OPERATOR Sara Joaquin [employer]ORBO[employer] MECHANIC INBOARD/OUTBOARD-PATTERN GATER LAB - POINT OF CARE ORDERABLES [facility] [address] [place] [address], [facility] [phone] * CARDIAC EKG ORDER (01/03/2020 8:53 AM CDT) Only the most recent of2 resultswithin the time period is included. Narrative 01/03/2020 8:53 AM CDT Ordered by an unspecified provider. Scanned Document CARDIAC SERVICES ORD ERABLES * US ABDOMEN LIMITED (07/07/2019 10:23 AM REPAIR TABLE OPERATOR) Only the most recent of2 resultswithin the time period is included. Anatomical Region Laterality Modality Abdomen Ultrasound 07/07/2019 11:5 5 AM REPAIR TABLE OPERATOR Impressions 07/07/2019 12:48 PM REPAIR TABLE OPERATOR IMPRESSION: 1. Hepatic steatosis and cirrhosis. 2. [...] is recommended. Dictated by Jose Gill MD (interventional radiology tech). I, Dr. ASHLYN STILL M.D. have personally reviewed and interpreted this examination/study. This report was electronically signed by ASHLYN STILL M.D. on 07/07/2019 12:48 PM . Narrative 07/07/2019 12:48 PM REPAIR TABLE OPERATOR EXAMINATION: Limited abdominal sonogram HISTORY: K76.0: Fatty [...] is recommended. Dictated by Jose Gill MD (interventional radiology tech). I, Dr. ASHLYN STILL M.D. have personally reviewed and interpretedthis examination/study. This report was electronically signed by ASHLYN STILL M.D. on 07/07/2019 12:48 PM . Sara M Joaquin [employer]ORBO[employer] MECHANIC INBOARD/OUTBOARD-PATTERN GATER US ORDERABLE S * (ABNORMAL) CHEM PROFILE [...] Unknown 04/18/2018 Historical Provider LAB - CHEMISTRY O RDERABLES * PATHOLOGY TISSUE (12/16/2017 3:25 PM CDT) Case Report Surgical Pathology Report Case: [id number] Authorizing Provider: Juan Turpin, Collected: 12/16/2017 03:25 PM Ordering Location: [place] [address] Received: 12/16/2017 03:26 PM Pathologist: Emelina Spears MD Specimen: Slide Consultation, OSC: [id number] 12/31/2017 2:03 PM CDT [facility] Final Diagnosis Liver, needle biopsy (OSC: [id number], 02/10/17) - Steatohepatitis - Marked ductular reaction, cholestasis, and portal-portal bridging fibrosis - Hepatocellular iron, up to 3+ - See comment Gallbladder vesicles cystectomy (OSC: [id number], 02/10/17): - Chronic cholecystitis 12/31/2017 2:03 PM CDT [facility] Microscopic Description and Comment Sections [...] are seen. The PASd is negative for cxmnj-9-gjaozfdjzzc globules. The iron stain highlights 3/4+ hepatocellular [...] likely reflecting steatohepatitic injury. 12/31/2017 2:03 PM [facility] Clinical History The patient is a 57-year-old female with history of SALGADO cirrhosis who was admitted to the hospital in October for bilateral pneumonia and septic shock. 12/31/2017 2:03 PM [facility] Materials Received Received are 8 slide(s) labeled [id number] along with a copy of the outside pathology report. Additionally received are 6 unstained slides also labeled [id number], from which 1 H&E, 1 special stain, and 1 immunostain are generated at [facility]. The materials originate from [facility], [facility], [place] [address]. All original materials are returned to the referring institution, along with a copy of our final report. 12/31/2017 2:03 PM [facility] Disclaimer The performance characteristics of all immunohistochemical and indirect immunofluorescence stains (if any) cited in this report were determined by the Histopathology Laboratory of [facility]. Some of these tests were developed by [...] attending (teaching) pathologist. 12/31/2017 2:03 PM CDT [facility] Embedded Images 12/31/2017 2:03 PM CDT [facility] Pathology/Cytolo gy SURGICAL PATHOLOGY CONSULTATION AND REPORT ON REFERRED SLIDES PREPARED ELSEWHERE / Unknown 12/16/2017 3:25 PM CDT 12/16/2017 3:26 PM CDT Kody Turpin MD LAB - PATHOLOGY/CYTOLOGY ORDERABLES [facility] [address] [phone] * PHOSPHORUS (EXTERNAL RESULT ENTRY) (12/13/2017) Only [...] - 115 mg/dL 11/03/2017 2:51 PM CDT [facility] Specimen Type Arterial/C apillary 11/03/2017 2:51 PM CDT [facility] Blood BLOOD SPECIMEN / Unknown 11/03/2017 2:37 PM CDT 11/03/2017 2:51 PM CDT Narrative [facility] - 11/03/2017 2:51 PM CDT Rn Security: CASSANDRA VASQUES Elver Askew MD LAB - POINT OF CARE ORDERABLES Performing Organization Address City/[facility]/[place] Co de Phone Number [address] [phone] * PT-INR [facility] (11/03/2017 7:27 AM CDT) Only the most recent of27 resultswithin the time period is included. PT 14.0 12.1 - 14.8 Seconds 11/03/2017 7:49 AM CDT [facility] INR 1.1 See Comment 11/03/2017 7:49 AM CDT [facility] Comment: Suggested therapeutic range for low-intensity coumadin therapy for venous thromboembolism prophylaxis is an INR of 2.0-3.0. For high risk patients (Mitral Valve Prosthesis, Atrial Fibrillation, history of TIA/stroke), suggested prophylactic therapeutic range is an INR of 2.5-3.5. Blood BLOOD SPECIMEN / Unknown Lab Venipuncture / Unknown 11/03/2017 7:27 AM CDT 11/03/2017 7:27 AM CDT Reuben Tellez MD LAB - COAGULATION OR DERABLES Performing Organization Address [facility]/[place] Co de Phone Number [address] [phone] * (ABNORMAL) RBC MORPHOLOGY (11/03/2017 7:27 AM CDT) Only the most recent of5 resultswithin the time period is included. Platelet Estimate Adequate Adequate 11/03/2017 8:07 AM CDT [facility] Anisocytosis 2+(A) None 11/03/2017 8:07 AM CDT [facility] Macrocytosis 2+(A) None 11/03/2017 8:07 AM CDT [facility] Blood BLOOD SPECIMEN / Unknown Lab Venipuncture / Unknown 11/03/2017 7:27 AM CDT 11/03/2017 7:27 AM CDT Ronaldo Flynn DO LAB - HEMATOLOGY ORD ERABLES [facility] [address] [phone] * (ABNORMAL) CBC W AUTO DIFFERENTIAL (11/03/2017 7:27 AM CDT) Only the most recent of25 resultswithin the time period is included. WBC 8.5 3.5 - 10.5 10 3/uL 11/03/2017 7:38 AM [facility] RBC 2.32(L) 3.90 - 5.00 10 6/uL 11/03/2017 7:38 AM [facility] Hemoglobin 7.7(L) 12.0 - 15.5 g/dL 11/03/2017 7:38 AM [facility] Hematocrit 23.8(L) 35.0 - 45.0 % 11/03/2017 7:38 AM [facility] MCV 102.6(H) 81.0 - 97.0 fL 11/03/2017 7:38 AM [facility] MCH 33.2 28.0 - 34.0 pg 11/03/2017 7:38 AM [facility] MCHC 32.4 32.0 - 36.0 g/dL 11/03/2017 7:38 AM [facility] Platelet Count 237 150 - 400 10 3/uL 11/03/2017 7:38 AM [facility] RDW-SD 78.3(H) 36.0 - 50.0 fL 11/03/2017 7:38 AM [facility] RDW-CV 22.2(H) 11.2 - 14.8 % 11/03/2017 7:38 AM [facility] MPV 9.0(L) 9.3 - 12.8 fL 11/03/2017 7:38 AM [facility] Neutrophils % 76.3(H) 35.0 - 70.0 % 11/03/2017 7:38 AM [facility] Lymphocytes % 11.3(L) 19.7 - 55.1 % 11/03/2017 7:38 AM [facility] Monocytes % 8.6 3.0 - 15.0 % 11/03/2017 7:38 AM [facility] Eosinophils % 3.2 0.0 - 6.0 % 11/03/2017 7:38 AM [facility] Basophil % 0.6 0.0 - 1.5 % 11/03/2017 7:38 AM [facility] Neutrophils Absolute 6.5 1.6 - 7.0 10 3/uL 11/03/2017 7:38 AM [facility] Lymphocyte Absolute 1.0 0.8 - 2.9 10 3/uL 11/03/2017 7:38 AM [facility] Monocytes Absolute 0.73(H) 0.14 - 0.66 10 3/uL 11/03/2017 7:38 AM [facility] Eosinophils Absolute 0.27(H) 0.00 - 0.22 10 3/uL 11/03/2017 7:38 AM [facility] Basophils Absolute 0.05 0.00 - 0.06 10 3/uL 11/03/2017 7:38 AM [facility] Reflex Status Morphology review to follow. 11/03/2017 7:38 AM [facility] Immature Granulocytes % 0.5 0.0 - 1.0 % 11/03/2017 7:38 AM [facility] Blood BLOOD SPECIMEN / Unknown Lab Venipuncture / Unknown 11/03/2017 7:27 AM CDT 11/03/2017 7:27 AM T Ronaldo Flynn DO LAB - HEMATOLOGY ORD ERABLES [facility] [address] [phone] * (ABNORMAL) COMPREHENSIVE METABOLIC PANEL (11/03/2017 7:27 AM T) Only the most recent of24 resultswithin the time period is included. BUN 22 7 - 26 mg/dL 11/03/2017 8:07 AM [facility] Creatinine 1.3(H) 0.6 - 1.2 mg/dL 11/03/2017 8:07 AM [facility] Sodium 137 136 - 145 mmol/L 11/03/2017 8:07 AM [facility] Potassium 3.8 3.5 - 4.5 mmol/L 11/03/2017 8:07 AM [facility] Chloride 98 98 - 107 mmol/L 11/03/2017 8:07 AM [facility] CO2 29 22 - 29 mmol/L 11/03/2017 8:07 AM [facility] Glucose 84 70 - 115 mg/dL 11/03/2017 8:07 AM [facility] Calcium 9.1 8.4 - 10.2 mg/dL 11/03/2017 8:07 AM [facility] Protein Total 5.4(L) 6.0 - 8.3 g/dL 11/03/2017 8:07 AM [facility] Albumin 2.9(L) 3.4 - 5.0 g/dL 11/03/2017 8:07 AM [facility] Bilirubin Total 1.4(H) 0.2 - 1.2 mg/dL 11/03/2017 8:07 AM [facility] Alkaline Phosphatase 433(H) 40 - 150 Units/L 11/03/2017 8:07 AM [facility] ALT 35 0 - 55 Units/L 11/03/2017 8:07 AM [facility] AST 51(H) 5 - 34 Units/L 11/03/2017 8:07 AM [facility] Anion Gap 14 8 - 18 11/03/2017 8:07 AM [facility] BUN/Creatinine Ratio 17 7 - 23 11/03/2017 8:07 AM [facility] Osmolality Calculated 287 270 - 300 mOsm/kg 11/03/2017 8:07 AM [facility] Albumin/Globulin Ratio 1.2 1.1 - 2.3 11/03/2017 8:07 AM [facility] eGFR 42(L) >60 mL/min/1.7 3 m2 11/03/2017 8:07 AM [facility] Blood BLOOD SPECIMEN / Unknown Lab Venipuncture / Unknown 11/03/2017 7:27 AM CDT 11/03/2017 7:27 AM CDT Elver Askew MD LAB - CHEMISTRY ORDERABLES [address] [phone] * PHOSPHORUS BLOOD (11/02/2017 6:46 AM CDT) Only the most recent of11 resultswithin the time period is included. Pathologist [facility] Phosphorus 3.4 2.3 - 4.7 mg/dL 11/02/2017 7:33 AM [facility] Blood BLOOD SPECIMEN / Unknown 11/02/2017 6:46 AM CDT 11/02/2017 7:08 AM CDT Andrew Ruiz MD LAB - CHEMISTRY ORDERABLES Performing Organization Address [facility]/[place] Co de Phone Number [address] [phone] * (ABNORMAL) DIFFERENTIAL MANUAL (11/01/2017 6:29 AM CDT) Only the most recent of7 resultswithin the time period is included. [facility] WBC (corrected for NRBC) 9.1 10 3/uL 11/01/2017 8:00 AM [facility] Total Cell Count 100 11/02/19 18 8:00 AM [facility] Neutrophils Absolute Manual 7.37(H) 1.60 - 7.00 10 3/uL 11/01/2017 8:00 AM [facility] Comment:(BANDS+SEGS) x WBC = NEUT # (ANC) Lymphocyte Absolute Manual 0.73(L) 0.80 - 2.90 10 3/uL 11/01/2017 8:00 AM [facility] Monocytes Absolute Manual 0.55 0.14 - 0.66 10 3/uL 11/01/2017 8:00 AM [facility] Eosinophils Absolute Manual 0.09 0.00 - 0.22 10 3/uL 11/01/2017 8:00 AM [facility] Basophil Absolute Manual 0.18(H) 0.00 - 0.06 10 3/uL 11/01/2017 8:00 AM [facility] Band % Manual 16(H) 0 - 10 % 11/01/2017 8:00 AM [facility] Neutrophil % Manual 65(H) 30 - 60 % 11/01/2017 8:00 AM T [facility] Lymphocyte % Manual 8(L) 20 - 45 % 11/01/2017 8:00 AM [facility] Monocytes % Manual 6 2 - 10 % 11/01/2017 8:00 AM [facility] Eosinophils % Manual 1 1 - 6 % 11/01/2017 8:00 AM [facility] Basophils % Manual 2 0 - 3 % 11/01/2017 8:00 AM [facility] Metamyelocyte % Manual 1(H) 0 % 11/01/2017 8:00 AM [facility] Myelocytes % Manual 1(H) 0 % 11/01/2017 8:00 AM [facility] Platelet Estimate Adequate Adequate 018 8:00 AM [facility] Anisocytosis 2+(A) None 11/01/2017 8:00 AM [facility] Macrocytosis 2+(A) None 11/01/2017 8:00 AM [facility] Blood BLOOD SPECIMEN / Unknown 11/01/2017 6:29 AM CDT 11/01/2017 6:59 AM CDT Ronaldo Flynn DO LAB - HEMATOLOGY ORD ERABLES [address] [phone] * TISSUE TRANSGLUTAMINASE AB IGA (10/31/2017 5:12 AM CDT) TTG Antibody IgA <2 0 - 3 U/mL 11/02/2017 1:13 PM CDT [facility] ([facility]) Comment: Negative 0 - 3 Weak Positive 4 - 10 Positive >10 Tissue Transglutaminase (tTG) has been identified as the endomysial antigen. Studies have demonstr- ated that endomysial IgA antibodies have over 99% specificity for gluten sensitive enteropathy. Blood BLOOD SPECIMEN / Unknown Lab Venipuncture / Unknown 10/31/2017 5:12 AM CDT 10/31/2017 5:29 AM CDT N[facility]ative [facility]) - 11/02/2017 1:13 PM CDT Performed at: 01 - [facility] [address] [place], [place] [id number] [employer]er: Dimitrios Abad PhD, Phone: [phone] Andrew Ruiz MD LAB - SEROLOGY O RDERABLES [facility] ([facility]) [address] [place] [address], [facility] * (ABNORMAL) CORTISOL BLOOD AM (10/31/2017 5:12 AM CDT) Only the most recent of3 resultswithin the time period is included. Cortisol AM 29.3(H) 3.7 - 19.4 mcg/dL 10/31/2017 8:48 AM CDT [facility] Blood BLOOD SPECIMEN / Unknown Lab Venipuncture / Unknown 10/31/2017 5:12 AM CDT 10/31/2017 5:30 AM CDT Andrew Ruiz MD LAB - CHEMISTRY ORDERABLES [address] [phone] * PANCREATIC ELASTASE FECES (10/30/2017 3:28 PM CDT) Pancreatic Elastase 413 >=201 ug/g 11/04/2017 1:00 PM CDT [employer] ([facility]) Comment: REFERENCE INTERVAL: Pancreatic Elastase, Fecal by BELEN Greater than 200 ug/g ........ Normal 100-200 ug/g ................. Moderate to mild pancreatic insufficiency Less than 100 ug/g ........... Severe exocrine pancreatic insufficiency Reference range does not apply for infants less than one month old. Performed by [employer], [address] [place] [address] [email or web address], Poli Lamas MD, Lab. Director Stool STOOL SPECIMEN / Unknown Collection / Unknown 10/30/2017 3:28 PM CDT 10/30/2017 3:32 PM CDT Andrew Ruiz MD LAB - BODY FLUID ORDERABLES [employer] ([facility]) [address] [place] [address], [facility] * FL SWALLOWING FUNCTION STUDY (10/29/2017 [...] AGUILAR M.D. on 10/29/2017 3:17 PM . Narrative 10/29/2017 3:17 [...] Askew MD FLUOROSCOPY ORD ERABLES * PTT [facility] (10/29/2017 12:08 AM CDT) Only the most recent of13 resultswithin the time period is included. Pathologist [facility] APTT 30.3 23.0 - 38.4 Seconds 10/29/2017 12:52 AM [facility] Comment: Suggested therapeutic range for full dose I.V. heparin therapy for venous thromboembolism is 66.0-91.0 seconds. Blood BLOOD SPECIMEN / Unknown Lab Venipuncture / Unknown 10/29/2017 12:08 AM CDT 10/29/2017 12:40 AM CDT Reuben Tellez MD LAB - COAGULATION OR DERABLES Performing Organization Address City/State/[place] Co de Phone Number [address] [phone] * (ABNORMAL) CBC W/O DIFFERENTIAL (10/29/2017 12:08 AM CDT) Only the most recent of14 resultswithin the time period is included. [facility] WBC 10.1 3.5 - 10.5 10 3/uL 10/29/2017 1:04 AM [facility] RBC 2.29(L) 3.90 - 5.00 10 6/uL 10/29/2017 1:04 AM [facility] Hemoglobin 7.4(L) 12.0 - 15.5 g/dL 10/29/2017 1:04 AM [facility] Hematocrit 23.0(L) 35.0 - 45.0 % 10/29/2017 1:04 AM [facility] MCV 100.4(H) 81.0 - 97.0 fL 10/29/2017 1:04 AM [facility] MCH 32.3 28.0 - 34.0 pg 10/29/2017 1:04 AM [facility] MCHC 32.2 32.0 - 36.0 g/dL 10/29/2017 1:04 AM [facility] Platelet Count 59(L) 150 - 400 10 3/uL 10/29/2017 1:04 AM [facility] RDW-SD 54.2(H) 36.0 - 50.0 fL 10/29/2017 1:04 AM [facility] RDW-CV 22.4(H) 11.2 - 14.8 % 10/29/2017 1:04 AM [facility] MPV 10.7 9.3 - 12.8 fL 10/29/2017 1:04 AM [facility] Blood BLOOD SPECIMEN / Unknown Lab Venipuncture / Unknown 10/29/2017 12:08 AM CDT 10/29/2017 12:40 AM CDT Andrew Ruiz MD LAB - HEMATOLOGY ORDERABLES Performing Organization Address City/State/[place] Co de Phone Number [facility] [address] [phone] * (ABNORMAL) HEPATIC FUNCTION PANEL (10/29/2017 12:08 AM CDT) Protein Total 5.1(L) 6.0 - 8.3 g/dL 018 1:12 AM [facility] Albumin 3.3(L) 3.4 - 5.0 g/dL 10/29/2017 1:12 AM [facility] Bilirubin Total 1.4(H) 0.2 - 1.2 mg/dL 10/15 1:12 AM [facility] Bilirubin Conjugated 0.7(H) 0.0 - 0.5 mg/dL 10/29/2017 1:12 AM [facility] Bilirubin Unconjugated 0.7 Unconjugated Bilirubin is a calculated value: Reference ranges have not been established. mg/dL 10/29/2017 1:12 AM [facility] Alkaline Phosphatase 460(H) 40 - 150 Units/L 10/29/2017 1:12 AM [facility] ALT 22 0 - 55 Units/L 10/29/2017 1:12 AM [facility] AST 40(H) 5 - 34 Units/L 10/29/2017 1:12 AM [facility] Albumin/Globulin Ratio 1.8 1.1 - 2.3 10/29/2017 1:12 AM CDT [facility] Blood BLOOD SPECIMEN / Unknown Lab Venipuncture / Unknown 10/29/2017 12:08 AM CDT 10/29/2017 12:40 AM CDT Reuben Tellez MD LAB - CHEMISTRY SHIRLEY GARCIA [facility] [address] [phone] * IR CENTRAL LINE INSERT TUNNEL (10/28/2017 2:42 PM CDT) Anatomical Region Laterality Modality X-Ray Angiograph y 10/28/2017 2:51 PM CDT Impressions 10/28/2017 2:55 PM CDT Impression: Successful placement of right internal jugular tunneled dialysis catheter. I was present for the entire procedure. This report was electronically signed by JAMISONBRIAN AREVALO MD on 10/28/2017 2:55 PM . Narrative 10/28/2017 2:55 PM CDT This is an interventional nephrology procedure performed on 10/28/17 Rn Security: Marcia Arevalo Attending: Marcia Arevalo Procedures performed: [...] The skin of the right neck and chest was prepared with chlorhexidine and sterile drapes were applied. Under real time ultrasound guidance, the right internal jugular vein was accessed with a micropuncture needle, a hyde scale image was recorded and a microfilament wire was advanced to the central veins under fluoroscopic guidance. A 5 Sami trocar was placed and a 0.035 guidewire was then advanced through the trocar and was manipulated into the IVC. An exit site was chosen on the chest wall and anesthetized with lidocaine. Using a metal tunneling device, a 24 cm [...] nylon and a CHG dressing was placed. The venotomy incision was closed with a 2-0 nylon suture. Procedure Note Luis F, MD Nathalie - 10/28/2017 This is an interventional nephrology procedure performed on 10/28/17 Rn Security: Marcia Arevalo Attending: Marcia Arevalo Procedures performed: [...] central veins under fluoroscopic guidance. A 5 Sami trocar was placed and a 0.035 guidewire [...] of3 resultswithin the time period is included. Antibody Screen NEG 8 9:41 AM CDT [facility] ABO Rh O POS 10/28/2017 9:41 AM CDT [facility] Blood Bank BLOOD SPECIMEN / Unknown 10/28/2017 8:51 AM CDT 10/28/2017 8:52 AM CDT Andrew Ruiz MD LAB - BLOOD BANK ORDERABLES [facility] [address] [place] [address] * (ABNORMAL) HEMOGLOBIN (10/28/2017 8:45 AM CDT) Pathologist [facility] Hemoglobin 7.1(L) 12.0 - 15.5 g/dL 10/28/2017 8:54 AM CDT [facility] Blood BLOOD SPECIMEN / Unknown 10/28/2017 8:45 AM CDT 10/28/2017 8:53 AM CDT Andrew Ruiz MD LAB - HEMATOLOGY ORDERABLES [address] [phone] * MITOCHONDRIAL ANTIBODY SCREEN (10/28/2017 5:31 AM CDT) Only the most recent of2 resultswithin the time period is included. Pathologist [facility] Mitochondrial M2 Antibody 1.9 0.0 - 20.0 Units 10/29/2017 11:13 AM CDT [facility] Comment: Mitochondrial M2 Antibody Numeric Result Interpretation: <20.1 Units: Negative 20.1 - 24.9 Units: Equivocal >24.9 Units: Positive Blood BLOOD SPECIMEN / Unknown Venipuncture / Unknown 10/28/2017 5:31 AM CDT 10/28/2017 5:50 AM CDT Andrew Ruiz MD LAB - CHEMISTRY ORDERABLES [address] [phone] * (ABNORMAL) CERULOPLASMIN (10/28/2017 5:31 AM CDT) Ceruloplasmin 12(L) 20 - 60 mg/dL 10/28/2017 6:29 AM CDT [facility] Blood BLOOD SPECIMEN / Unknown Venipuncture / Unknown 10/28/2017 5:31 AM CDT 10/28/2017 5:50 AM CDT Andrew Ruiz MD LAB - CHEMISTRY ORDERABLES Performing Organization Address [facility]/ZIP Co de Phone Number [address] [phone] * (ABNORMAL) VITAMIN D 1,25 DIHYDROXY (10/28/2017 5:31 AM CDT) Calcitriol (1,25 di-[place] Vit D) 8.3(L) 19.9 - 79.3 pg/mL 11/01/2017 5:10 PM CDT [facility] ([facility]) Blood BLOOD SPECIMEN / Unknown Venipuncture / Unknown 10/28/2017 5:31 AM CDT 10/28/2017 5:50 AM CDT Narrative [facility] ([facility]) - 11/01/2017 5:10 PM CDT Performed at: 01 - [facility] [id number] Dry Cell Battery Assembler: Isra Milton MD, Phone: [phone] Andrew Ruiz MD LAB - CHEMISTRY ORDERABLES [facility] ([facility]) [address] [place] [address] [place] * SMOOTH MUSCLE ANTIBODY (10/28/2017 5:31 AM CDT) F-Actin Antibody IgG 4.4 0.0 - 19.9 Units 10/29/2017 11:13 AM CDT [facility] Comment: F-Actin Antibody Numeric Result Interpretation: <20.0 Units: Negative 20.0 - 30.0 Units: Weak Positive >30.0 Units: Moderate to Strong Positive Blood BLOOD SPECIMEN / Unknown Venipuncture / Unknown 10/28/2017 5:31 AM CDT 10/28/2017 5:50 AM CDT Andrew Ruiz MD LAB - SEROLOGY O RDERABLES [address] [phone] * ECHO FU OR LIMITED (10/27/2017 2:21 [...] is normal. Dictated by Thom Reina MD (interventional radiology tech). I, Dr. ASTRID FRANCO have personally reviewed and interpreted this examination/study. This report was electronically signed by ASTRID FRANCO on 10/28/2017 8:38 AM . Narrative 10/28/2017 8:38 [...] is normal. Dictated by Thom Reina MD (interventional radiology tech). IDr. ASTRID have personally reviewed and interpreted this examination/study. This report was electronically signed by ASTRID FRANCO on 10/28/2017 8:38 AM . Manav Gabriel DO DIAGNOSTIC IMAGING O RDERABLES * (ABNORMAL) TROPONIN I (10/27/2017 4:11 AM CDT) Only the most recent of3 resultswithin the time period is included. Troponin I 0.070(H) <0.032 ng/mL 10/27/2017 10:18 AM CDT [facility] Blood BLOOD SPECIMEN / Unknown Venipuncture / Unknown 10/27/2017 4:11 AM CDT 10/27/2017 9:57 AM CDT Reuben Tellez MD LAB - CHEMISTRY SHIRLEY GARCIA [facility] Organization Address City/State/ZIP Co de Phone Number [address] [phone] * (ABNORMAL) B-TYPE NATRIURETIC PEPTIDE (10/27/2017 4:11 AM CDT) BNP 326(H) See Comment pg/mL 10/27/2017 5:05 AM CDT [facility] Comment: A decision threshold of 100 pg/mL has been demonstrated to provide the maximal combination of sensitivity, specificity and predictive value for the diagnosis of congestive heart failure (CHF). Virtually all patients with no evidence of CHF have BNP values less than 100 pg/mL. A BNP value greater than 100 pg/mL is consistent with the diagnosis of CHF in the appropriate clinical setting. In a study of 693 patients (male and female) with diagnosed CHF, the following values were determined based on the NYHA functional classification system: NYHA Functional Class Mean Valule (pg/mL) % >100 pg/mL I 320 58.1 II 432 73.0 III 656 79.0 IV 1635 98.3 Blood BLOOD SPECIMEN / Unknown Venipuncture / Unknown 10/27/2017 4:11 AM CDT 10/27/2017 4:30 AM CDT Reuben Tellez MD LAB - CHEMISTRY SHIRLEY GARCIA [address] [phone] * MAGNESIUM BLOOD (10/27/2017 4:11 AM CDT) Only the most recent of17 resultswithin the time period is included. Magnesium 2.5 1.6 - 2.6 mg/dL 10/27/2017 5:02 AM CDT [facility] Blood BLOOD SPECIMEN / Unknown Venipuncture / Unknown 10/27/2017 4:11 AM CDT 10/27/2017 4:30 AM CDT Elver Askew MD LAB - CHEMISTRY ORDERABLES [address] [phone] * (ABNORMAL) RENAL FUNCTION PANEL (2017 11:03 PM CDT) Only the most recent of22 resultswithin the time period is included. BUN 20 7 - 26 mg/dL 2017 11:34 PM [facility] Creatinine 0.7 0.6 - 1.2 mg/dL 2017 11:34 PM [facility] Sodium 139 136 - 145 mmol/L 2017 11:34 PM [facility] Potassium 3.5 3.5 - 4.5 mmol/L 2017 11:34 PM [facility] Chloride 104 98 - 107 mmol/L 2017 11:34 PM [facility] CO2 24 22 - 29 mmol/L 2017 11:34 PM [facility] Glucose 208(H) 70 - 115 mg/dL 2017 11:34 PM [facility] Albumin 3.4 3.4 - 5.0 g/dL 2017 11:34 PM [facility] Calcium 9.5 8.4 - 10.2 mg/dL 2017 11:34 PM [facility] Phosphorus 1.1(L) 2.3 - 4.7 mg/dL 2017 11:34 PM [facility] Anion Gap 15 8 - 18 2017 11:34 PM [facility] BUN/Creatinine Ratio 29(H) 7 - 23 2017 11:34 PM [facility] Osmolality Calculated 297 270 - 300 mOsm/kg 2017 11:34 PM [facility] eGFR >60 >60 mL/min/1.7 3 m2 2017 11:34 PM [facility] Blood BLOOD SPECIMEN / Unknown Venipuncture / Unknown 2017 11:03 PM CDT 2017 11:06 PM [facility] Ronaldo Flynn DO LAB - CHEMISTRY SHIRLEY GARCIA [facility] [address] [place] [address] * XR ABDOMEN KUB (10/25/2017 9:22 PM [...] Thom Reina on 2017 2:[address] EULALIA Morel M.D. have personally reviewed and interpreted this examination/study. This report was electronically signed by EULALIA HAYS M.D. on 2017 3:06 PM . Narrative 2017 3:06 [...] Thom Reina on 2017 2:[address] EULALIA [...] - 57 mg/dL 10/25/2017 1:26 PM CDT [facility] Blood BLOOD SPECIMEN / Unknown Venipuncture / Unknown 10/25/2017 12:25 PM CDT 10/25/2017 12:43 PM CDT Ronaldo Flynn DO LAB - SEROLOGY ORDER OLGA Performing Organization Address [facility]/[place] [address], [facility] [phone] * COMPLEMENT C3 (10/25/2017 12:25 PM CDT) Only the most recent of2 resultswithin the time period is included. Complement C3 82 82 - 193 mg/dL 10/25/2017 1:26 PM CDT [facility] Blood BLOOD SPECIMEN / Unknown Venipuncture / Unknown 10/25/2017 12:25 PM CDT 10/25/2017 12:43 PM CDT Ronaldo Flynn DO LAB - CHEMISTRY SHIRLEY GARCIA Performing Organization Address [facility]/[place] [address], [facility] [phone] * (ABNORMAL) LDH BLOOD (10/25/2017 8:38 AM CDT) Only the most recent of3 resultswithin the time period is included. LDH Total 308(H) 125 - 243 Units/L 10/25/2017 8:52 AM CDT [facility] Blood BLOOD SPECIMEN / Unknown Venipuncture / Unknown 10/25/2017 8:38 AM CDT 10/25/2017 8:38 AM CDT Singh Odell MD LAB - CHEMISTRY SHIRLEY GARCIA Performing Organization Address [facility]/[place] [address], [facility] [phone] * (ABNORMAL) BILIRUBIN DIRECT (10/25/2017 8:38 AM CDT) Only the most recent of2 resultswithin the time period is included. Bilirubin Conjugated 0.9(H) 0.0 - 0.5 mg/dL 10/25/2017 8:52 AM [facility] Bilirubin Unconjugated 0.6 Unconjugated Bilirubin is a calculated value: Reference ranges have not been established. mg/dL 10/25/2017 8:52 AM [facility] Blood BLOOD SPECIMEN / Unknown Venipuncture / Unknown 10/25/2017 8:38 AM CDT 10/25/2017 8:38 AM T Singh Odell MD LAB - CHEMISTRY SHIRLEY GARCIA [facility] Organization Address City/State/ZIP Co de Phone Number [facility] [address] [phone] * (ABNORMAL) BLOOD GASES ART (10/22/2017 11:20 AM [facility]) Only the most recent of5 resultswithin the time period is included. pH Arterial 7.42 7.35 - 7.45 10/22/2017 11:35 AM [facility] pCO2 Arterial 40 35 - 45 mmHg 10/22/2017 11:35 AM [facility] pO2 Arterial 103(H) 77 - 101 mmHg 10/22/2017 11:35 AM [facility] HCO3 Arterial 25.2 22.0 - 26.0 mmol/L 10/22/2017 11:35 AM [facility] TCO2 Arterial 26.4 25.0 - 29.0 mmol/L 10/22/2017 11:35 AM [facility] Base Excess Arterial 0.7 -2.0 - 2.0 mmol/L 10/22/2017 11:35 AM [facility] Hemoglobin Arterial 8.2(L) 12.0 - 15.5 g/dL 10/22/2017 11:35 AM [facility] Oxyhemoglobin Arterial 95.7 95.0 - 100.0 % 10/22/2017 11:35 AM [facility] Carboxyhemoglobin 0.2 0.0 - 3.0 % 10/22/2017 11:35 AM [facility] Methemoglobin 0.5 0.0 - 2.0 % 10/22/2017 11:35 AM [facility] FI O2 Arterial 30.0 % 10/22/2017 11:35 AM CDT [facility] Blood, arterial ARTERIAL BLOOD SPECIMEN / Unknown Arterial Puncture / Unknown 10/22/2017 11:20 AM CDT 10/22/2017 11:33 AM CDT Reuben Tellez MD LAB - BLOOD GASES OR DERABLES Performing Organization Address City/[facility]/[place] Co de Phone Number [address] [phone] * CALCIUM IONIZED WHOLE BLOOD (10/22/2017 4:46 AM CDT) Only the most recent of11 resultswithin the time period is included. Ionized Calcium Whole Blood 1.22 mmol/L 10/22/2017 4:56 AM CDT [facility] Adjusted Ionized Calcium 1.22 1.19 - 1.34 mmol/L 10/22/2017 4:56 AM CDT [facility] pH Whole Blood 7.40 7.35 - 7.45 10/22/2017 4:56 AM CDT [facility] Blood BLOOD SPECIMEN / Unknown Venipuncture / Unknown 10/22/2017 4:46 AM CDT 10/22/2017 4:52 AM CDT Elver Askew MD LAB - CHEMISTRY ORDERABLES Performing Organization Address City/[facility]/[place] Co de Phone Number [address] [phone] * (ABNORMAL) FIBRINOGEN ACTIVITY (10/21/2017 3:18 AM CDT) Only the most recent of3 resultswithin the time period is included. Fibrinogen Clauss 120(L) 200 - 400 mg/dL 10/21/2017 3:39 AM CDT [facility] Blood BLOOD SPECIMEN / Unknown Venipuncture / Unknown 10/21/2017 3:18 AM CDT 10/21/2017 3:21 AM CDT Reuben Tellez MD LAB - COAGULATION OR DERABLES Performing Organization Address City/[facility]/ZIP Co de Phone Number [facility] [address] [place] [address], [facility] [phone] * CULTURE ANAEROBE (10/19/2017 4:03 PM CDT) Only the most recent of2 resultswithin the time period is included. Culture No anaerobic organisms isolated DEJUAN 10/25/2017 5:28 PM CDT [facility]CRO[facility] Microbiology ASCITIC FLUID SPECIMEN / Unknown Collection / Unknown 10/19/2017 4:03 PM CDT 10/19/2017 4:07 PM CDT Narrative [facility] - 10/25/2017 5:28 PM CDT Bottle Only !!!!! No Gram Stain !!!! Mireya Palma DO LAB - MICROBIOLOGY O RDERABLES Performing Organization Address [facility]/[place] Co de Phone Number [facility] [address] [place] [address], [facility] [phone] * CULTURE FLUID+GRAM STAIN (10/19/2017 4:02 PM CDT) Only the most recent of3 resultswithin the time period is included. Culture No growth DEJUAN 10/27/2017 3:25 PM CDT [facility] Fluid ASCITIC FLUID SPECIMEN / Unknown Collection / Unknown 10/19/2017 4:02 PM CDT 10/19/2017 4:07 PM CDT Narrative [facility] - 10/27/2017 3:25 PM CDT Bottles Only No Gram Stain Mireya Palma DO LAB - MICROBIOLOGY O RDERABLES Performing Organization Address [facility]/[place] Co de Phone Number [facility]CRO[facility] [address] [place] [address], [facility] [phone] * (ABNORMAL) CELL COUNT W DIFFERENTIAL FLUID (10/19/2017 4:01 PM CDT) Only the most recent of3 resultswithin the time period is included. Color Fluid Yellow(A) Colorless, Straw 10/19/2017 4:24 PM [facility] Clarity Fluid Slighty Cloudy(A) Clear 10/19/2017 4:24 PM [facility] Volume Fluid 3.0 mL 10/19/2017 4:24 PM [facility] WBC Fluid 22 Reference Range Not Established /uL 10/19/2017 4:24 PM [facility] RBC Fluid 1,000 Reference Range Not Established /uL 10/19/2017 4:24 PM [facility] Differential Manual Differential to follow. 10/19/2017 4:24 PM [facility] Fluid (Ascities) Collection / Unknown 10/19/2017 4:01 PM CDT 10/19/2017 4:07 PM [facility] Narrative [facility] - 10/19/2017 4:24 PM CDT No established reference range for WBC and RBC body fluid count. Mireya Palma DO LAB - BODY FLUID ORD ERABLES Performing Organization Address City/[facility]/ZIP Co de Phone Number [address] [phone] * DIFFERENTIAL MANUAL FLUID (10/19/2017 4:01 PM CDT) Only the most recent of3 resultswithin the time period is included. Segs % Fluid 46 % 10/19/2017 4:38 PM [facility] Lymphocytes % Fluid 16 % 10/19/2017 4:38 PM [facility] Monocytes % Fluid 10 % 10/19/2017 4:38 PM [facility] Macrophages % Fluid 28 % 10/19/2017 4:38 PM [facility] Fluid (Ascities) Collection / Unknown 10/19/2017 4:01 PM CDT 10/19/2017 4:07 PM CDT Mireya Palma DO LAB - BODY [place] [address], [facility] [phone] * TRANSFUSE RED BLOOD CELL UNIT(S) (10/19/2017 10:46 AM CDT) Elver Askew MD NURSING - BLOOD PROD TRANSFUSION * CT ABDOMEN PELVIS WO CONTRAST (10/19/2017 6:37 AM CDT) Anatomical Region Laterality Modality Abdomen, Pelvis Computed Tomogra phy 10/19/2017 6:39 AM CDT Impressions 10/19/2017 12:58 PM CDT IMPRESSION: 1. Lwlme-om-ofkxyoye bilateral pleural effusions with confluent groundglass opacities [...] systemic hypotension. Dictated by Eli Zuniga MD (interventional radiology tech). I, Dr. EARLENE JORDAN M.D. have personally reviewed and interpreted this examination/study. This report was electronically signed by EARLENE JORDAN M.D. on 10/19/2017 12:58 PM . Narrative 10/19/2017 12:58 [...] noted. There is thoracolumbar levoscoliosis. IMPRESSION: 1. Gsate-rc-fqgarxnh bilateral pleural effusions with confluent groundglass opacities and consolidation throughout both lungs likely representing pulmonary edema or multifocal pneumonia, not significantly changed from prior exam. 2. Large volume abdominopelvic ascites and diffuse body wall anasarca. 3. Persistent nephrogram in bilateral kidneys on this noncontrast examination likely from the prior CT PE protocol of 10/15/2017. Thislikely represents systemic hypotension. Dictated by Eli Zuniga MD (interventional radiology tech). I, Dr. EARLENE JORDAN M.D. have personally reviewed and interpreted this examination/study. This report was electronically signed by EARLENE JORDAN M.D. on 10/19/2017 12:58 PM . Jean Real MD CT ORDERABLES * PREPARE (CROSSMATCH) RBC UNIT(S), 1 Units (10/19/2017 5:32 AM CDT) Unit Description LR Red Cells [facility] Unit ABO O [facility] Unit Rh POS [facility] Product Code RL1 [facility] B[facility] Unit Donor # [id number] [facility] Unit Status transfused [facility] Product Number [id number] [facility] Blood Type Barcode 5100 [facility] Blood Bank BLOOD SPECIMEN / Unknown 10/19/2017 5:32 AM CDT 10/19/2017 5:32 AM CDT Elver Askew MD LAB - BLOOD BAN K ORDERABLES Performing Organization Address City/[facility]/[place] Co de Phone Number [facility] [address] [place] [address] * PREPARE CRYOPRECIPITATE UNIT (S), 5 Units (10/19/2017 5:32 AM CDT) Unit Description N/A [facility] Blood Bank BLOOD SPECIMEN / Unknown 10/19/2017 5:32 AM CDT 10/19/2017 5:32 AM CDT Elver Askew MD LAB - BLOOD BAN K ORDERABLES Performing Organization Address [facility]/[place] Co de Phone Number [facility] [address] [place] [address] * PREPARE FFP UNIT(S), 2 Units (10/19/2017 5:32 AM CDT) Unit Description N/A [facility] Blood Bank BLOOD SPECIMEN / Unknown 10/19/2017 5:32 AM CDT 10/19/2017 5:32 AM CDT Elver Askew MD LAB - BLOOD BAN K ORDERABLES Performing Organization Address [facility]/[place] Co de Phone Number [facility] [address] [place] [address] * PATHOLOGY PERIPHERAL SMEAR REVIEW (10/19/2017 5:28 AM CDT) Pathology Diff Review DIFFERENTIAL REVIEW - CONFIRMED DIFFERENTIAL REVIEW - CONFIRMED 10/19/2017 1:39 PM CDT [facility] Comment: Mrs. Rosa Li is [...] Askew MD LAB - PATHOLOGY /CYTOLOGY ORDERABLES [address] [phone] * SHIELA DIRECT (10/19/2017 5:28 AM CDT) Direct Shiela (VIANEY) NEG 10/19/2017 6:17 AM CDT [facility] Blood Bank BLOOD SPECIMEN / Unknown Venipuncture / Unknown 10/19/2017 5:28 AM CDT 10/19/2017 5:31 AM CDT Elver Askew MD LAB - BLOOD BAN K ORDERABLES Performing Organization Address [facility]/[place] Co de Phone Number [facility] [address] [place] [address] * RETIC COUNT (10/19/2017 4:54 AM CDT) Reticulocyte % 1.1 0.4 - 2.5 % 10/19/2017 5:29 AM CDT [facility] Reticulocyte Absolute 0.02 0.02 - 0.13 10 6/uL 10/19/2017 5:29 AM CDT [facility] Blood BLOOD SPECIMEN / Unknown Venipuncture / Unknown 10/19/2017 4:54 AM CDT 10/19/2017 5:03 AM CDT Elver Askew MD LAB - HEMATOLOG Y ORDERABLES Performing Organization Address [facility]/ZIP Co de Phone Number [address] [phone] * MARILEE BLOOD SCREEN W/REFLEX TITER (10/19/2017 4:25 AM CDT) MARILEE Negative 10/20/2017 5:11 PM CDT [facility] Comment: Negative <1:80 Borderline 1:80 Positive >1:80 Blood BLOOD SPECIMEN / Unknown Lab Venipuncture / Unknown 10/19/2017 4:25 AM CDT 10/19/2017 4:25 AM CDT Narrative [facility] ([facility]) - 10/20/2017 5:11 PM CDT Performed at: 01 - [facility] [address] [place] [address] [id number] Dry Cell Battery Assembler: Dimtirios Abad PhD, Phone: [phone] Oliver Biswas MD LAB - CHEMISTRY SHIRLEY GARCIA [facility]) [address] [place] [address], [facility] * (ABNORMAL) TRANSFERRIN (10/19/2017 4:25 AM CDT) Transferrin <19(L) 174 - 382 mg/dL 10/19/2017 5:37 AM CDT [facility] Transferrin Saturation % 100(H) 16 - 50 % 10/19/2017 5:37 AM CDT [facility] Blood BLOOD SPECIMEN / Unknown Venipuncture / Unknown 10/19/2017 4:25 AM CDT 10/19/2017 5:21 AM CDT Elver Askew MD LAB - CHEMISTRY ORDERABLES [address] [phone] * (ABNORMAL) IRON BLOOD (10/19/2017 4:25 AM CDT) Iron 33(L) 40 - 150 mcg/dL 10/19/2017 5:36 AM CDT [facility] Blood BLOOD SPECIMEN / Unknown Venipuncture / Unknown 10/19/2017 4:25 AM CDT 10/19/2017 5:21 AM CDT Elver Askew MD LAB - CHEMISTRY ORDERABLES Performing Organization Address City/[facility]/ZIP Co de Phone Number [address] [phone] * HAPTOGLOBIN (10/19/2017 4:25 AM CDT) Haptoglobin 86 14 - 258 mg/dL 10/19/2017 5:39 AM CDT [facility] Blood BLOOD SPECIMEN / Unknown Venipuncture / Unknown 10/19/2017 4:25 AM CDT 10/19/2017 5:21 AM CDT Elver Askew MD LAB - CHEMISTRY ORDERABLES Performing Organization Address [facility]/[place] Co de Phone Number [address] [phone] * (ABNORMAL) FERRITIN (10/19/2017 4:25 AM CDT) Ferritin 1,954(H) 13 - 204 ng/mL 10/19/2017 6:27 AM CDT [facility] Comment: Result obtained by dilution. Blood BLOOD SPECIMEN / Unknown Venipuncture / Unknown 10/19/2017 4:25 AM CDT 10/19/2017 5:21 AM CDT Elver Askew MD LAB - CHEMISTRY ORDERABLES Performing Organization Address City/[facility]/[place] [address], [facility] [phone] * FOLATE (10/19/2017 4:04 AM CDT) Folate 9.5 7.0 - 31.4 ng/mL 10/19/2017 6:07 AM CDT [facility] Blood BLOOD SPECIMEN / Unknown Venipuncture / Unknown 10/19/2017 4:04 AM CDT 10/19/2017 4:17 AM CDT Elver Askew MD LAB - CHEMISTRY ORDERABLES Performing Organization Address [facility]/[place] Co de Phone Number [address] [phone] * (ABNORMAL) VITAMIN B12 (10/19/2017 4:04 AM CDT) Vitamin B12 986(H) 213 - 816 pg/mL 10/19/2017 6:07 AM CDT [facility] Blood BLOOD SPECIMEN / Unknown Venipuncture / Unknown 10/19/2017 4:04 AM CDT 10/19/2017 4:17 AM CDT Elver Askew MD LAB - CHEMISTRY ORDERABLES Performing Organization Address [facility]/[place] Co de Phone Number [address] [phone] * CRYOGLOBULIN QUALITATIVE (10/18/2017 2:34 PM CDT) Cryoglobulin Qualitative Negative Negative 10/21/2017 12:43 PM CDT [facility] Blood BLOOD SPECIMEN / Unknown Lab Venipuncture / Unknown 10/18/2017 2:34 PM CDT 10/21/2017 12:36 PM CDT Elver Askew MD LAB - CHEMISTRY ORDERABLES Performing Organization Address [facility]/[place] Co de Phone Number [address] [phone] * (ABNORMAL) NEUTROPHIL CYTOPLASMIC ANTIBODY (10/18/2017 2:34 PM CDT) Cytoplasmic (C-ANCA) <1:20 Neg:<1:20 titer 10/19/2017 2:13 PM CDT [facility] ([facility]) p-ANCA Titer <1:20 Neg:<1:20 titer 10/19/2017 2:13 PM CDT [facility] ([facility]) Comment: The presence of positive fluorescence exhibiting P-ANCA or C-ANCA patterns alone is not specific for the diagnosis of Nurys's Granulomatosis (WG) or microscopic polyangiitis. Decisions about treatment should not be based solely on ANCA IFA results. The [employer] ANCA [employer] Consensus recommends follow up testing of positive sera with both CT-3 and MPO-ANCA enzyme immunoassays. As many as 5% serum samples are positive only by EIA. Ref. AM J Clin Pathol 1999;111:507-513. Atypical p-ANCA Titer 1:20(H) Neg:<1:20 titer 10/19/2017 2:13 PM CDT [facility] ([facility]) Comment: The atypical pANCA pattern has been observed in a significant percentage of patients with ulcerative colitis, primary sclerosing cholangitis and autoimmune hepatitis. Blood BLOOD SPECIMEN / Unknown Venipuncture / Unknown 10/18/2017 2:34 PM CDT 10/18/2017 2:52 PM CDT Narrative [facility] ([facility]) - 10/19/2017 2:13 PM CDT Performed at: [address] [place] [address] [id number] Dry Cell Battery Assembler: Dimitrios Abad PhD, Phone: [phone] Elver Askew MD LAB - CHEMISTRY ORDERABLES [facility] ([facility]) [address] [place] [address], [facility] * COMPLEMENT TOTAL (10/18/2017 2:34 PM CDT) [facility] Complement Total CH50 <13 >41 U/mL 10/19/2017 2:13 PM CDT [facility] ([facility]) Comment:Please note refere nce interval change Blood BLOOD SPECIMEN / Unknown Venipuncture / Unknown 10/18/2017 2:34 PM CDT 10/18/2017 2:52 PM CDT Narrative [facility] ([facility]) - 10/19/2017 2:13 PM CDT Performed at: [address] [place] [address] [id number] [employer] As[employer]er: Dimitrios Abad PhD, Phone: [phone] Elver Askew MD LAB - CHEMISTRY ORDERABLES Performing Organization Address City/[facility]/ZIP Co de Phone Number [facility] ([facility]) [address] [place] [address] * (ABNORMAL) KAPPA/LAMBDA LITE CHAIN FREE PANEL (10/18/2017 2:34 PM CDT) Free Adair Light Chains 51.7(H) 3.3 - 19.4 mg/L 10/19/2017 3:18 PM CDT [facility] ([facility]) Free Lambda Light Chains 21.8 5.7 - 26.3 mg/L 10/19/2017 3:18 PM CDT [facility] ([facility]) Adair/Lambda Ratio 2.37(H) 0.26 - 1.65 10/19/2017 3:18 PM CDT [facility] ([facility]) Blood BLOOD SPECIMEN / Unknown Venipuncture / Unknown 10/18/2017 2:34 PM CDT 10/18/2017 2:53 PM CDT Narrative [facility] ([facility]) - 10/19/2017 3:18 PM CDT Performed at: [address] [place] [address] [id number] [employer]er: Dimitrios Abda PhD, Phone: [phone] Elver Askew MD LAB - CHEMISTRY ORDERABLES Performing Organization Address City/[facility]/RUST Co de Phone Number [facility] ([facility]) [address] [place] [address] [place] * HIV-1 HIV-2 ANTIGEN/ANTIBODY (10/18/2017 1:54 PM CDT) HIV Antigen/Antibod y 1 & 2 Non-reacti ve Non-react diana 10/18/2017 3:08 PM CDT [facility] Comment: Neither HIV-1 p24 Antigen nor HIV-1/HIV-2 Antibodies are detected. Blood BLOOD SPECIMEN / Unknown Venipuncture / Unknown 10/18/2017 1:54 PM CDT 10/18/2017 2:01 PM CDT Elver Askew MD LAB - HEMATOLOG Y ORDERABLES Performing Organization Address [facility]/ZIP Co de Phone Number [address] [phone] * DNA (DS) ANTIBODY RFLEX IFA (10/18/2017 1:54 PM CDT) Pathologist [facility] dsDNA Antibody 3 0 - 29 IU/mL 10/20/2017 11:47 AM CDT [facility] Comment: dsDNA Antibody Numeric Result Interpretation: 0 - 29 IU/mL: Negative 30 - 75 IU/mL: Borderline >75 IU/mL: Positive Blood BLOOD SPECIMEN / Unknown Venipuncture / Unknown 10/18/2017 1:54 PM CDT 10/18/2017 2:01 PM CDT Elver Askew MD LAB - SEROLOGY ORDERABLES Performing Organization Address [facility]/[place]UST Co de Phone Number [address] [phone] * IMMUNOFIXATION (10/18/2017 1:54 PM CDT) [facility] Immunofixation Serum See Comment Normal Pattern 10/22/2017 12:25 PM CDT [facility] Comment: Serum immunofixation electrophoresis shows polyclonal IgG and IgA immunoglobulins. No monoclonal immunoglobulins detected. Non-secretory myeloma (NSM) cannot be excluded on the basis of this result. Measurements of serum free kappa and lambda immunoglobulin light chains can identify up to 70% of patients with NSM. Daniel Greenfield, PhD Blood BLOOD SPECIMEN / Unknown Venipuncture / Unknown 10/18/2017 1:54 PM CDT 10/18/2017 2:01 PM CDT Elver Askew MD LAB - CHEMISTRY ORDERABLES Performing Organization Address [facility]/[place]UST Co de Phone Number [address] [phone] * HAHN (SM) ANTIBODY KOLTON (10/18/2017 1:54 PM CDT) [facility] Hahn Antibody 3.5 0.0 - 19.9 Units 10/20/2017 11:48 AM CDT [facility] Comment: KOLTON Antibody Numeric Result Interpretation: <20.0 Units: Negative 20.0 - 39.0 Units: Weakly Positive >39.0 Units: Positive Blood BLOOD SPECIMEN / Unknown Venipuncture / Unknown 10/18/2017 1:54 PM CDT 10/18/2017 2:01 PM CDT Elver Askew MD LAB - CHEMISTRY ORDERABLES [address] [phone] * ASO TITER (10/18/2017 1:54 PM CDT) [facility] ASO Titer 29.5 0.0 - 200.0 IU/mL 10/19/2017 8:47 AM CDT [facility] ([facility]) Blood BLOOD SPECIMEN / Unknown Venipuncture / Unknown 10/18/2017 1:54 PM CDT 10/18/2017 2:02 PM CDT Narrative [facility] ([facility]) - 10/19/2017 8:47 AM CDT Performed at: [address] [place] [address] [address] [place], [place] [id number] [employer] As[employer]er: Dimitrios Abad PhD, Phone: [phone] Elver Askew MD LAB - CHEMISTRY ORDERABLES [facility] ([facility]) [address] [place] [address] * NEUTROPHIL CYTOPLASMIC ANTIBODY IGG (10/18/2017 1:54 PM CDT) [facility] ANCA IgG <1:20 <1:20 10/19/2017 3:04 PM CDT [facility] ([facility]) Comment: The ANCA IFA is <1:20; therefore, [...] collagen vascular disease or arthritis. Performed by [employer], [address] [place] [id number] [email or web address], Poli Lamas MD, Lab. Director Blood BLOOD SPECIMEN / Unknown Venipuncture / Unknown 10/18/2017 1:54 PM CDT 10/18/2017 2:02 PM CDT Elver Askew MD LAB - SEROLOGY ORDERABLES Performing Organization Address [facility]/[place] Co de Phone Number [facility] [employer] [facility]) [address] [place] [address] * SS-B (SJOGRENS'S) ANTIBODY (10/18/2017 1:54 PM CDT) SS-B LA Antibody 2.6 0.0 - 19.9 Units 10/20/2017 11:49 AM CDT [facility] Comment: KOLTON Antibody Numeric Result Interpretation: <20.0 Units: Negative 20.0 - 39.0 Units: Weakly Positive >39.0 Units: Positive Blood BLOOD SPECIMEN / Unknown Venipuncture / Unknown 10/18/2017 1:54 PM CDT 10/18/2017 2:01 PM CDT Elver Askew MD LAB - CHEMISTRY ORDERABLES [address] [phone] * SS-A (SJOGREN'S) ANTIBODY (10/18/2017 1:54 PM CDT) SS-A (Ro) Antibody 1.7 0.0 - 19.9 Units 10/20/2017 11:49 AM CDT [facility] Comment: KOLTON Antibody Numeric Result Interpretation: <20.0 Units: Negative 20.0 - 39.0 Units: Weakly Positive >39.0 Units: Positive Blood BLOOD SPECIMEN / Unknown Venipuncture / Unknown 10/18/2017 1:54 PM CDT 10/18/2017 2:01 PM CDT Elver Askew MD LAB - CHEMISTRY ORDERABLES Performing Organization Address City/[facility]/ZIP Co de Phone Number [address] [phone] * MPO/CT 3 AUTOANTIBODIES PANEL (10/18/2017 1:54 PM CDT) [facility] Anti-myeloperox idase (MPO) Antibody <9.0 0.0 - 9.0 U/mL 10/20/2017 8:38 AM CDT [facility] ([facility]) Anti-proteinase 3 (CT-3) Abs <3.5 0.0 - 3.5 U/mL 10/20/2017 8:38 AM CDT [facility] ([facility]) Blood BLOOD SPECIMEN / Unknown Venipuncture / Unknown 10/18/2017 1:54 PM CDT 10/18/2017 2:02 PM CDT Narrative [facility] ([facility]) - 10/20/2017 8:38 AM CDT Performed at: [address] [place] [id number] [employer] As[employer]er: Isra Milton MD, Phone: [phone] Elver Askew MD LAB - CHEMISTRY ORDERABLES Performing Organization Address [facility]/[place]UST Co de Phone Number [facility] ([facility]) [address] [place] [id number] * (ABNORMAL) PROTEIN ELECTROPHORESIS BLOOD (10/18/2017 1:54 PM CDT) [facility] Interpretation Serum PE See Comment Normal Pattern 10/22/2017 12:22 PM CDT [facility] Comment: Serum protein electrophoresis shows characteristic bands corresponding to albumin, alpha and beta globulins and polyclonal immunoglobulins. There is a decrease in alpha and beta globulins along with a marked decrease in polyclonal immunoglobulins. No monoclonal immunoglobulins detected. Non-secretory myeloma (NSM) and light chain only myeloma cannot be excluded on the basis of this result. Recommend serum free light chain measurements for complete evaluation of multiple myeloma. Measurement of serum free kappa and lambda immunoglobulin light chains can identify all patients with light chain only myeloma and up to 70% of patients with NSM. Daniel Greenfield, PhD Protein Total 4.4(L) 6.0 - 8.3 g/dL 10/22/2017 12:22 PM CDT [facility] Albumin 3.9 3.3 - 5.6 g/dL 10/22/2017 12:22 PM CDT [facility] Alpha-1 Globulins 0.1 0.1 - 0.3 g/dL 10/22/2017 12:22 PM CDT [facility] Alpha-2 Globulins 0.2(L) 0.5 - 1.0 g/dL 10/22/2017 12:22 PM CDT [facility] Beta Globulins 0.1(L) 0.6 - 1.1 g/dL 10/22/2017 12:22 PM T [facility] Gamma Globulins 0.1(L) 0.6 - 1.6 g/dL 10/22/2017 12:22 PM CDT [facility] Blood BLOOD SPECIMEN / Unknown Venipuncture / Unknown 10/18/2017 1:54 PM CDT 10/18/2017 2:01 PM CDT Elver sAkew MD LAB - CHEMISTRY ORDERABLES Performing Organization Address City/State/[place] Co de Phone Number [address] [phone] * HEPATITIS SCREEN ACUTE (10/18/2017 1:54 PM CDT) Hepatitis A Virus Antibody IgM Non-react diana Non-reac tive 10/18/2017 3:08 PM CDT [facility] Hepatitis B Virus Surface Antigen Non-react diana Non-reac tive 10/18/2017 3:08 PM CDT [facility] Hepatitis B Core Virus Antibody IgM Non-react diana Non-reac tive 10/18/2017 3:08 PM CDT [facility] Hepatitis C Antibody Non-react diana Non-reac tive 10/18/2017 3:08 PM CDT [facility] Comment: Hepatitis C Antibody screen indicates [...] LAB - CHEMISTRY ORDERABLES Performing Organization Address City/[facility]/ZIP Co de Phone Number [address] [phone] * GLOMERULAR BASE MEMBRANE ANTIBODY IGG (10/18/2017 1:53 PM CDT) Pathologist [facility] Glomerular Basement Membrane Antibody Quantitative 2 0 - 20 units 10/21/2017 10:18 AM CDT [facility] ([facility]) Comment: Negative 0 - 20 Weak Positive 21 - 30 Moderate to Strong Positive >30 Blood BLOOD SPECIMEN / Unknown Venipuncture / Unknown 10/18/2017 1:53 PM CDT 10/18/2017 2:01 PM CDT [facility]ative [facility] - 10/21/2017 10:18 AM CDT Performed at: [address] [place] [id number] [employer]: Isra Milton MD, Phone: [phone] Elver Askew MD LAB - CHEMISTRY ORDERABLES [facility] ([facility]) [address] [place] [address] * (ABNORMAL) HYDROXYBUTYRATE BETA (10/18/2017 11:40 AM CDT) Beta-Hydroxybu tyrate 0.42(H) 0.02 - 0.27 mmol/L 10/18/2017 12:25 PM CDT [facility] Blood BLOOD SPECIMEN / Unknown Venipuncture / Unknown 10/18/2017 11:40 AM CDT 10/18/2017 11:47 AM CDT Reuben Tellez MD LAB - CHEMISTRY SHIRLEY GARCIA Performing Organization Address [facility] de Phone Number [address] [phone] * HEPARIN PLATELET INDUCED ANTIBODY (10/18/2017 11:40 AM CDT) Pathologist [facility] Interpretation Heparin Platelet Antibody Negative Negative 10/19/2017 12:49 PM CDT [facility] Comment: Heparin induced thrombocytopenia (HIT) is unlikely in the presence of a negative HIT antibody test result by BELEN and low pretest probability for type II HIT (scoring system of Warpetertin). It is suggested to verify positive HIT BELEN antibody test results by HIT Antibody Serotonin Release Assay. HIT BELEN Patient OD 0.103 <0.400 OD 10/19/2017 12:49 PM CDT [facility] Blood BLOOD SPECIMEN / Unknown Venipuncture / Unknown 10/18/2017 11:40 AM CDT 10/18/2017 11:47 AM CDT Reuben Tellez MD LAB - CHEMISTRY SHIRLEY GARCIA Performing Organization Address [facility]/[place] Co de Phone Number [address] [phone] * (ABNORMAL) BASIC METABOLIC PANEL (CALCIUM TOTAL) (10/18/2017 11:40 AM CDT) Only the most recent of7 resultswithin the time period is included. Pathologist [facility] BUN 23 7 - 26 mg/dL 10/18/2017 12:25 PM CDT [facility] Creatinine 2.3(H) 0.6 - 1.2 mg/dL 10/18/2017 12:25 PM T [facility] Sodium 124(L) 136 - 145 mmol/L 10/18/2017 12:25 PM CDT [facility] Potassium 3.5 3.5 - 4.5 mmol/L 10/18/2017 12:25 PM T [facility] Chloride 94(L) 98 - 107 mmol/L 10/18/2017 12:25 PM [facility] CO2 15(L) 22 - 29 mmol/L 10/18/2017 12:25 PM [facility] Glucose 184(H) 70 - 115 mg/dL 10/18/2017 12:25 PM [facility] Calcium 9.7 8.4 - 10.2 mg/dL 10/18/2017 12:25 PM [facility] Anion Gap 19(H) 8 - 18 10/18/2017 12:25 PM [facility] BUN/Creatinine Ratio 10 7 - 23 10/18/2017 12:25 PM [facility] Osmolality Calculated 266(L) 270 - 300 mOsm/kg 10/18/2017 12:25 PM [facility] eGFR 22(L) >60 mL/min/1.7 3 m2 10/18/2017 12:25 PM [facility] Blood BLOOD SPECIMEN / Unknown Venipuncture / Unknown 10/18/2017 11:40 AM CDT 10/18/2017 11:47 AM CDT Elver Askew MD LAB - CHEMISTRY ORDERABLES [address] [phone] * LACTIC ACID BLOOD (10/18/2017 11:40 AM CDT) Only the most recent of4 resultswithin the time period is included. Lactic Acid-Stat 1.8 0.5 - 2.2 mmol/L 10/18/2017 12:06 PM T [facility] Blood BLOOD SPECIMEN / Unknown Venipuncture / Unknown 10/18/2017 11:40 AM CDT 10/18/2017 11:47 AM CDT Elver Askew MD LAB - CHEMISTRY ORDERABLES [address] [phone] * (ABNORMAL) GGT (10/17/2017 4:54 PM CDT) [facility] GGT 387(H) 9 - 64 Units/L 10/17/2017 5:19 PM CDT [facility] Blood BLOOD SPECIMEN / Unknown Venipuncture / Unknown 10/17/2017 4:54 PM CDT 10/17/2017 4:58 PM CDT Elver Askew MD LAB - CHEMISTRY ORDERABLES Performing Organization Address [facility]/ZIP Co de Phone Number [address] [phone] * VANCOMYCIN LEVEL RANDOM (10/17/2017 4:54 PM CDT) Only the most recent of4 resultswithin the time period is included. [facility] Vancomycin Random 34.2 Therapeutic Ranges not established for random specimens mcg/mL 10/17/2017 5:15 PM CDT [facility] Blood BLOOD SPECIMEN / Unknown Venipuncture / Unknown 10/17/2017 4:54 PM CDT 10/17/2017 4:58 PM CDT Elver Askew MD LAB - CHEMISTRY ORDERABLES Performing Organization Address City/[facility]/[place] Co de Phone Number [address] [phone] * EKG 12-LEAD (10/16/2017 5:57 PM CDT) Only the most recent of4 resultswithin the time period is included. [facility] Ventricular Rate 75 BPM [facility] Atrial Rate 75 BPM [facility] P-R Interval 104 ms [facility] QRS Duration ms 36 ms [facility] Q-T Interval ms 368 ms [facility] QTC Calculation (Bezet) 410 ms [facility] Calculated P [place] 70 degrees [facility] Calculated R [place] 0 degrees [facility] Calculated T [place] -35 degrees [facility] Interpretation EKG Sinus rhythm with short CT with Fusion complexes~ST & T wave abnormality, consider lateral ischemia~Non- specific intra-ventric ular conduction delay~Indeter minate axis~Pulmonar y disease pattern~Abnor mal ECG~When compared with ECG of 16-OCT-2017 10:33,~Low voltage no longer present~Confi rmed by Itz AGUILAR, CHAY ([id number]), editor continuity and script Sarkis Odonnell ([id number]) on 10/22/2017 12:08:27 PM [facility] 10/16/2017 5:57 PM CDT 10/22/2017 12:08 PM CDT Mireya Palma DO ECG ORDERABLES Performing Organization Address City/State/[place] Co de Phone Number [facility] * CULTURE SPUTUM+GRAM STAIN (10/16/2017 6:17 AM CDT) Only the most recent of2 resultswithin the time period is included. Culture Moderate normal oropharyngeal annia DEJUAN 10/18/2017 8:04 AM CDT [facility] Gram Stain <10 per low power field Squamous epithelial cells 10/18/2017 8:04 AM CDT [facility] Gram Stain >= 25 per low power field Polymorphonuclear cells 10/18/2017 8:04 AM CDT [facility] Gram Stain Moderate Yeast budding with pseudohyphae 10/18/2017 8:04 AM CDT [facility] Gram Stain Rare Gram-positive cocci 10/18/2017 8:04 AM CDT [facility] Microbiology SPUTUM / Unknown Collection / Unknown 10/16/2017 6:17 AM CDT 10/16/2017 6:19 AM CDT Elver Askew MD LAB - MICROBIOL OGY ORDERABLES [facility]CRO[facility] [address] [place], [place] [address], [facility] [phone] * XR CHEST 1VW (10/15/2017 11:20 PM [...] approved by Kody Zuniga M.D. on 10/16/2017 9:[address] ASHLYN Morel MD have personally reviewed and interpreted this examination/study. This report was electronically signed by Dr. ASHLYN WHALEY MD on 10/16/2017 10:20 AM . Narrative 10/16/2017 10:20 [...] present. Report dictated by Eli Zuniga MD (interventional radiology tech). This report was approved by Kody Zuniga M.D. on 10/16/2017 9:41 AM . I, . Dr. ASHLYN WHALEY MD have personally reviewed and interpreted this examination/study. This report was electronically signed by Dr. ASHLYN WHALEY MD on 10/16/2017 10:20 AM . Narrative 10/16/2017 10:20 [...] present. Report dictated by Eli Zuniga MD (interventional radiology tech). This report was approved by Kody Zuniga M.D. on 10/16/2017 9:41AM . I, Dr. Dr. ASHLYN WHALEY MD have personally reviewed and interpretedthis examination/study. This report was electronically signed by Dr. ASHLYN WHALEY MD on10/16/2017 10:20 AM . Jaen Real MD DIAGNOSTIC IMAGING O RDERABLES * ECHO W DOPPLER AND COLOR FLOW (10/15/2017 3:59 PM CDT) Anatomical Region Laterality Modality Color Flow Doppl er 10/15/2017 7:43 AM CDT Narrative Procedure Note Caroline Horta MD - 10/15/2017 Elver Askew MD ECHOCARDIOGRAPH Y RADIANT * SVO2 FOR RECALIBRATION (10/15/2017 12:12 PM CDT) SVO2 for Recalibration 66.2 66.0 - 77.0 % 10/15/2017 12:21 PM CDT [facility] Blood BLOOD SPECIMEN / Unknown Venipuncture / Unknown 10/15/2017 12:12 PM CDT 10/15/2017 12:18 PM CDT Elver Askew MD LAB - CHEMISTRY ORDERABLES [address] [phone] * CT ANGIO CHEST PULM EMBOLISM (10/15/2017 [...] a hemangioma. Dictated by Helen Rich MD (interventional radiology tech). I, Dr. EARLENE JORDAN M.D. have personally reviewed and interpreted this examination/study. This report was electronically signed by EARLENE JORDAN M.D. on 10/15/2017 12:38 PM . Narrative 10/15/2017 12:38 [...] vena cava. There is moderate right and [id number] left pleural effusion with bilateral lower lobe [...] vena cava. There is moderate right and [id number] left pleural effusion with bilateral lower lobe [...] a hemangioma. Dictated by Helen Rich MD (interventional radiology tech). I, Dr. RANA FATTAHI, M.D. have personally reviewed and interpreted this examination/study. This report was electronically signed by EARLENE JORDAN M.D. on 10/15/2017 12:38 PM . Jaiden Cleveland MD CT ORDERABLES * CULTURE URINE (10/15/2017 9:31 AM CDT) Culture Urine No growth (<1,000 CFU/mL) DEJUAN 10/16/2017 2:32 PM CDT [facility] Urine URINE SPECIMEN OBTAINED BY CLEAN CATCH PROCEDURE / Unknown Collection / Unknown 10/15/2017 9:31 AM CDT 10/15/2017 9:34 AM CDT Elver Askew MD LAB - MICROBIOL OGY ORDERABLES [facility]CRO[facility] [address] [place] [address], [facility] [phone] * (ABNORMAL) URINALYSIS REFLEX TO MICROSCOPIC NO CULTURE (10/15/2017 4:39 AM CDT) Color UA [place](A) Straw, Yellow, Colorless, Light Yellow 10/15/2017 5:04 AM [facility] Clarity UA Cloudy(A) Clear 10/15/2017 5:04 AM [facility] Specific [place] UA 1.031(H) 1.001 - 1.030 10/15/2017 5:04 AM [facility] pH UA 5.5 5.0 - 8.0 10/15/2017 5:04 AM [facility] Protein UA 100(A) <=20 mg/dL 10/15/2017 5:04 AM [facility] Glucose UA 30(A) Negative mg/dL 10/15/2017 5:04 AM [facility] Ketone UA Negative Negative mg/dL 10/15/2017 5:04 AM [facility] Bilirubin UA Negative Negative mg/dL 10/15/2017 5:04 AM [facility] Blood UA Moderate(A) Negative 10/15/2017 5:04 AM [facility] Nitrite UA Negative Negative 10/15/2017 5:04 AM [facility] Leukocyte Esterase Large(A) Negative 10/15/2017 5:04 AM [facility] Urobilinogen UA <2.0 <2.0 mg/dL 8 5:04 AM [facility] RBC UA 48(H) 0 - 8 /HPF 10/15/2017 5:04 AM [facility] WBC UA >100(H) 0 - 2 /HPF 10/15/2017 5:04 AM [facility] Squamous Epithelial Cells UA 5(H) 0 - 1 /HPF 10/15/2017 5:04 AM [facility] Mucus UA Many(A) None /LPF 10/15/2017 5:04 AM [facility] Hyaline Casts UA 33(H) 0 - 2 /LPF 10/16/19 18 5:04 AM [facility] Urine URINE SPECIMEN OBTAINED BY CLEAN CATCH PROCEDURE / Unknown Collection / Unknown 10/15/2017 4:39 AM CDT 10/15/2017 4:42 AM CDT Elver Askew MD LAB - URINALYSI S ORDERABLES [address] [phone] * SODIUM URINE RANDOM (10/15/2017 4:39 AM CDT) Only the most recent of2 resultswithin the time period is included. Sodium Urine <20 Not Established mmol/L 10/15/2017 5:01 AM T [facility] Urine URINE SPECIMEN OBTAINED BY CLEAN CATCH PROCEDURE / Unknown Collection / Unknown 10/15/2017 4:39 AM CDT 10/15/2017 4:42 AM CDT Elver Askew MD LAB - URINE NINI GAL ORDERABLES Performing Organization Address City/[facility]/ZIP Co de Phone Number [address] [phone] * UREA NITROGEN URINE RANDOM (10/15/2017 4:39 AM CDT) Urea Nitrogen Random Urine 111 Not Established mg/dL 10/15/2017 5:01 AM CDT [facility] Urine URINE SPECIMEN OBTAINED BY CLEAN CATCH PROCEDURE / Unknown Collection / Unknown 10/15/2017 4:39 AM CDT 10/15/2017 4:42 AM CDT Elver Askew MD LAB - URINE NINI GAL ORDERABLES Performing Organization Address City/[facility]/ZIP Co de Phone Number [address] [phone] * OSMOLALITY URINE (10/15/2017 4:39 AM CDT) Only the most recent of2 resultswithin the time period is included. Osmolality Urine 288 mOsm/kg 10/15/2017 5:06 AM CDT [facility] Urine URINE SPECIMEN OBTAINED BY CLEAN CATCH PROCEDURE / Unknown Collection / Unknown 10/15/2017 4:39 AM CDT 10/15/2017 4:42 AM CDT Elver Askew MD LAB - URINE NINI GAL ORDERABLES Performing Organization Address [facility]/[place] Co de Phone Number [address] [phone] * CREATININE URINE RANDOM (10/15/2017 4:39 AM CDT) Creatinine Urine 90 Not Established mg/dL 10/15/2017 5:03 AM CDT [facility] Comment: Result obtained by dilution. Urine URINE SPECIMEN OBTAINED BY CLEAN CATCH PROCEDURE / Unknown Collection / Unknown 10/15/2017 4:39 AM CDT 10/15/2017 4:42 AM CDT Elver Askew MD LAB - URINE NINI GAL ORDERABLES Performing Organization Address [facility]/ZIP Co de Phone Number [address] [phone] * HEMOGLOBIN A1C (10/15/2017 4:22 AM CDT) Hemoglobin A1c 5.5 4.4 - 6.3 % 10/15/2017 1:32 PM CDT [facility] Estimated Average Glucose 111 mg/dL 10/15/2017 1:32 PM CDT [facility] Comment: HbA1c Interpretation: Treatment target values recommended by ADA and other clinical organizations should be used to evaluate metabolic control in patients. Treatment Target Values: Normal : < 5.7% Pre-diabetes: 5.7-6.4% Diabetes: Equal to or greater than 6.5% Reference: [place] [employer] Standards of Care in Diabetes -2014 In patients 70 years and older consider HbA1c target range of 7.0-7.5% Reference: Diabetes Mellitus in Older People: Position Statement on behalf of the International Association of Gerontology and Geriatrics (IAGG), the Diabetes Working [employer] for Older People (EDWPOP), and the International Task Force of Experts in Diabetes. Rigo Aguilar, et al. J [place] [employer]. 2012 Test results diagnostic [...] Elver Askew MD LAB - CHEMISTRY ORDERABLES [address] [phone] * TRIGLYCERIDES BODY FLUID ([facility]) (10/15/2017 4:05 AM CDT) Triglycerides Fluid 21 Not Established For Fluids mg/dL 10/15/2017 4:39 AM CDT [facility] Comment: The reference range and other method performance specifications have not been established for this fluid. The test result must be integrated into the clinical context for interpretation. Fluid PLEURAL FLUID / Unknown Collection / Unknown 10/15/2017 4:05 AM CDT 10/15/2017 4:06 AM CDT Crow Sternton DO LAB - BODY FLUID O RDERABLES Performing Organization Address [facility]/[place]UST Co de Phone Number [address] [phone] * PROTEIN BODY FLUID ([facility]) (10/15/2017 4:05 AM CDT) Protein Fluid 1.5 Not Established For Fluids g/dL 10/15/2017 4:39 AM CDT [facility] Comment: The reference range and other method performance specifications have not been established for this fluid. The test result must be integrated into the clinical context for interpretation. Fluid PLEURAL FLUID / Unknown Collection / Unknown 10/15/2017 4:05 AM CDT 10/15/2017 4:06 AM [facility] O RDERABLES Performing Organization Address [facility] [place] [address], [facility] [phone] * AMYLASE BODY FLUID ([facility]) (10/15/2017 4:05 AM CDT) Amylase Fluid 17 Not Established For Fluids Units/L 10/15/2017 4:39 AM CDT [facility] Comment: The reference range and other method performance specifications have not been established for this fluid. The test result must be integrated into the clinical context for interpretation. Fluid PLEURAL FLUID / Unknown Collection / Unknown 10/15/2017 4:05 AM CDT 10/15/2017 4:06 AM CDT Serge Hatfield DO LAB - BODY FLUID O RDERABLES Performing Organization Address [facility]/[place] [address], [facility] [phone] * CYTOLOGY NON-PROFESSIONAL SERVICES CONSULTANT PANEL (STL) (10/15/2017 4:04 AM CDT) Case Report Medical Cytology Report Case: [id number] Authorizing Provider: Crow Hatfield DO Collected: 10/15/2017 04:04 AM Ordering Location: [facility] 9 ICU Received: 10/15/2017 04:26 AM Pathologist: Jerry Lucero MD Specimen: Pleural Fluid, left 10/15/2017 4:34 PM CDT [facility] Specimen Adequacy Adequate cellularity for evaluation. 10/15/2017 4:34 PM CDT [facility] Final Diagnosis Pleural fluid, left - Negative for malignancy - Acute inflammation 10/15/2017 4:34 PM T [facility] Clinical History Pleural effusion. 10/15/2017 4:34 PM CDT [facility] Gross Description 1 cs/pap slide and 1 cs/diff-quik slide from 40 cc clear yellow fluid. 10/15/2017 4:34 PM CDT [facility] Microscopic Description Review of 1 pap and 1 diff quik stained cytospin slides reveals benign appearing mesothelial cells and inflammation. 10/15/2017 4:34 PM CDT [facility] Disclaimer The performance characteristics of all immunohistochemical and indirect immunofluorescence stains (if any) cited in this report were determined by the Histopathology Laboratory of [facility]. Some of these tests rely on the use of analyte-specific reagents and are subject to specific labeling requirements by the US Food and Drug Administration. Such tests were developed by the Histology Laboratory of [facility] and have not been cleared or approved [...] attending (teaching) pathologist. 10/15/2017 4:34 PM CDT [facility] Embedded Images 10/15/2017 4:34 PM CDT [facility] Pathology/Cytolo gy PLEURAL FLUID / Unknown Collection / Unknown 10/15/2017 4:04 AM CDT 10/15/2017 4:26 AM CDT Jcellen Liu LOERA LAB - PATHOLOGY/CY TOLOGY ORDERABLES Performing Organization Address [facility]/ZIP Co de Phone Number [facility] [address] [facility]. [address] [phone] * PH BODY FLUID ([facility]) (10/15/2017 4:03 AM CDT) pH Fluid 7.400 Not Established For Fluids 10/15/2017 4:07 AM CDT [facility] Comment: The reference range and other method performance specifications have not been established for this fluid. The test result must be integrated into the clinical context for interpretation. Fluid PLEURAL FLUID / Unknown Collection / Unknown 10/15/2017 4:03 AM CDT 10/15/2017 4:03 AM CDT Crow Hatfield DO LAB - BODY FLUID O RDERABLES Performing Organization Address [facility]/[place] Co de Phone Number [address] [phone] * ALBUMIN BODY FLUID ([facility]) (10/15/2017 3:10 AM CDT) Only the most recent of2 resultswithin the time period is included. Pathologist [facility] Albumin Fluid 1.2 Not Established For Fluids g/dL 10/15/2017 4:39 AM CDT [facility] Comment: The reference range and other method performance specifications have not been established for this fluid. The test result must be integrated into the clinical context for interpretation. Fluid PLEURAL FLUID / Unknown Collection / Unknown 10/15/2017 3:10 AM CDT 10/15/2017 4:03 AM CDT Elver Askew MD LAB - BODY FLUI D ORDERABLES Performing Organization Address City/[facility]/ZIP Co de Phone Number [address] [phone] * LD BODY FLUID ([facility]) (10/15/2017 3:10 AM CDT) LD Fluid 79 Not Established For Fluids Units/L 10/15/2017 4:51 AM CDT [facility] Comment: The reference range and other method performance specifications have not been established for this fluid. The test result must be integrated into the clinical context for interpretation. Fluid PLEURAL FLUID / Unknown Collection / Unknown 10/15/2017 3:10 AM CDT 10/15/2017 4:03 AM CDT Elver Askew MD LAB - BODY FLUI D ORDERABLES Performing Organization Address [facility] de Phone Number [address] [phone] * GLUCOSE BODY FLUID ([facility]) (10/15/2017 3:10 AM CDT) Glucose Fluid 197 Not Established For Fluids mg/dL 10/15/2017 4:51 AM CDT [facility] Comment: The reference range and other method performance specifications have not been established for this fluid. The test result must be integrated into the clinical context for interpretation. Fluid PLEURAL FLUID / Unknown Collection / Unknown 10/15/2017 3:10 AM CDT 10/15/2017 4:03 AM CDT Elver Askew MD LAB - BODY FLUI D ORDERABLES Performing Organization Address [facility] de Phone Number [address] [phone] * CULTURE BLOOD (10/14/2017 10:50 PM CDT) Only the most recent of2 resultswithin the time period is included. Pathologist [facility] Culture No growth day 5 DEJUAN 10/20/2017 1:26 AM CDT [facility] Blood BLOOD SPECIMEN / Unknown Venipuncture / Unknown 10/14/2017 10:50 PM CDT 10/14/2017 10:55 PM CDT Elver Askew MD LAB - MICROBIOL OGY ORDERABLES [facility]CRO[facility] [address] [place] [address], [facility] [phone] * (ABNORMAL) BLOOD GASES ART COMPLETE [facility] (10/14/2017 10:39 PM [facility]) pH Arterial 7.35 7.35 - 7.45 10/14/2017 10:48 PM [facility] pCO2 Arterial 22(L) 35 - 45 mmHg 10/14/2017 10:48 PM [facility] pO2 Arterial 58(L) 77 - 101 mmHg 10/14/2017 10:48 PM [facility] HCO3 Arterial 11.9(L) 22.0 - 26.0 mmol/L 10/14/2017 10:48 PM [facility] TCO2 Arterial 12.6(L) 25.0 - 29.0 mmol/L 10/14/2017 10:48 PM [facility] Base Excess Arterial -11.9(L) -2.0 - 2.0 mmol/L 10/14/2017 10:48 PM [facility] Hemoglobin Arterial 11.0(L) 12.0 - 15.5 g/dL 10/14/2017 10:48 PM [facility] Oxyhemoglobin Arterial 90.3(L) 95.0 - 100.0 % 10/14/2017 10:48 PM [facility] Carboxyhemoglobin 0.3 0.0 - 3.0 % 10/14/2017 10:48 PM [facility] Methemoglobin 0.5 0.0 - 2.0 % 10/14/2017 10:48 PM [facility] FI O2 Arterial 80.0 % 10/14/2017 10:48 PM [facility] Ionized Calcium Whole Blood 1.21 mmol/L 10/14/2017 10:48 PM [facility] Adjusted Ionized Calcium 1.18(L) 1.19 - 1.34 mmol/L 10/14/2017 10:48 PM [facility] Sodium Whole Blood 122(L) 135 - 145 mmol/L 10/14/2017 10:48 PM [facility] Potassium Whole Blood 3.4(L) 3.5 - 5.5 mmol/L 10/14/2017 10:48 PM CDT [facility] Chloride Whole Blood 97(L) 101 - 111 mmol/L 10/14/2017 10:48 PM CDT [facility] Glucose Whole Blood 206(H) 70 - 110 mg/dL 10/14/2017 10:48 PM CDT [facility] Lactic Acid Whole Blood 4.2(HH) 0.5 - 3.4 mmol/L 10/14/2017 10:48 PM CDT [facility] Comment:RESULTS CALLED TO AN D READ BACK BY Maddy Forrester, RN AT 10:48 PM, 10/14/2017 Blood ARTERIAL BLOOD SPECIMEN / Unknown Venipuncture / Unknown 10/14/2017 10:39 PM CDT 10/14/2017 10:42 PM CDT Elver Askew MD LAB - BLOOD GAS ES ORDERABLES [address] [phone] * (ABNORMAL) GLUCOSE ACCUCHECK (08/07/2017 4:25 PM CDT) Glucose, Fingerstick 131(H) 70-115mg/d L mg/dL [facility] ([facility]) Comment:Rn Security: CATHLEEN VAZQUEZ 08/07/2017 4:25 PM CDT Manav Gray MD LAB - CHEMISTRY [facility] (BEAKER) * (ABNORMAL) URINALYSIS W/MICROSCOPIC NO CULTURE (08/07/2017 10:04 AM CDT) Color UA Yellow Straw, Yellow, Colorless, Light Yellow [facility] Clarity UA Clear Clear [facility] Specific [place] UA 1.004 1.001 - 1.030 [facility] pH UA 5.5 5.0 - 8.0 [facility] Protein UA Negative <=20 mg/dL [facility] Glucose UA Negative Negative mg/dL [facility] Ketone UA Negative Negative mg/dL [facility] Bilirubin UA Negative Negative mg/dL [facility] Blood UA Negative Negative [facility] Nitrite UA Negative Negative [facility] Leukocyte Esterase Negative Negative [facility] Urobilinogen UA <2.0 <2.0 mg/dL [facility] RBC UA 1 0 - 8 /HPF [facility] WBC UA 1 0 - 2 /HPF [facility] Squamous Epithelial Cells UA 4(H) 0 - 1 /HPF [facility] Mucus UA Rare(A) None /LPF [facility] Urine specimen (specimen) 08/07/2017 10:04 AM CDT 08/07/2017 12:10 PM CDT Manav Gray MD LAB - URINALYSIS ORD ERABLES Performing Organization Address City/[facility]/ZIP Co de Phone Number [address] [phone] * TSH (08/07/2017 1:42 AM CDT) TSH 2.664 0.350 - 4.940 uIU/mL [facility] Blood specimen (specimen) BLOOD SPECIMEN / Unknown 08/07/2017 1:42 AM CDT 08/07/2017 1:54 AM CDT Cassie Huffman MOTORBOAT MECHANIC INBOARD/OUTBOARD-PATTERN GATER LAB - CHEMISTRY ORDERABLES Performing Organization Address [facility]/ZIP Co de Phone Number [address] [phone] * (ABNORMAL) CREATININE BLOOD - POCT (IP) [facility] (07/09/2017) Creatinine POCT 1.70(A) 0.3 - 1.3 mg/dL [facility] eGFR POCT 33(A) 60 ml/min [facility] 07/09/2017 Sara Joaquin MOTORBOAT MECHANIC INBOARD/OUTBOARD-PATTERN GATER LAB - POINT OF CARE ORDERABLES Performing Organization Address [facility]/ZIP Co de Phone Number [address] Care Teams Desizing Pad Operator Relationship Specialty Start Date End Date Fernie Barfield DO [address] [place] [address] [phone] PCP - General 04/14/17
--- OUTSIDE RECORDS SUMMARY | 2024-06-27 12:52 | XMS_ITS | Encounter Summary ---
Author Organization [facility] Address [address] [place] [address] Care Team Providers Care Link Trainer Mechanic Name Role Phone Fernie Barfield DO Primary Care Provider Encounter Details Date Type Department Care Team (Late st Contact Info) Description 11/02/2017 Ophth Exam [facility] [address] [place] [address] Tashia Brown MD [address] [place] [phone] Social History Tobacco Use Types Packs/Day Years [...] on filedocumented in this encounter Care Teams Link Trainer Mechanic Relationship Specialty Start Date End Date Fernie Barfield DO [address] [place] [phone] PCP - General 04/14/17 documented as of this encounter
[2024-06-27 19:31] LABS: Immature Reticulocyte Fraction 7.5 % (3.0-15.9); Reticulocyte Percent 1.16 % (0.7-4.3); Reticulocytes Absolute 0.04 10^6/uL (0.02-0.10)
[2024-06-27 19:37] LABS: Basophils Percent Auto 0.5 % (0.2-1.2); Eosinophils Absolute Auto 0.1 K/mm3 (0-0.3); Eosinophils Percent Auto 1.2 % (0-4.4); Hematocrit 36.1 % (37.0-47.0); Hemoglobin 12.7 g/dL (12.0-15.0); Lymphocytes Absolute Auto 1.08 K/mm3 (0.9-3.2); Lymphocytes Percent Auto 25.3 % (18.3-44.2); Mean Corpuscular HGB Conc 35.2 g/dl (32-36); Mean Corpuscular Volume 108.1 fl (80-100); Mean Platelet Volume 9.3 fl (7.4-10.4); Monocytes Absolute Auto 0.4 K/mm3 (0.1-0.6); Monocytes Percent Auto 10.3 % (2.6-8.5); Neutrophils Absolute Auto 2.7 K/mm3 (1.3-6.7); Neutrophils Percent Auto 62.7 % (45.5-73.1); Platelet Count Result 219 k/mm3 (150-375); Red Blood Count 3.34 M/mm3 (4.2-5.4); Red Cell Distribution Width 12.4 % (11.5-14.5); White Blood Count 4.3 K/mm3 (4.5-10.0)
[2024-06-27 19:58] LABS: Hypochromasia 1+; Ovalocytes 1+; Platelet Estimate Adequate (Adequate); Schistocytes None Seen
[2024-06-27 23:01] LABS: Iron 164 ug/dL (37-170)
[2024-06-27 23:10] LABS: Percent Iron Saturation 84 % (20-50)
[2024-06-28 00:15] LABS: Alanine Aminotransferase 33 U/L (6-35); Albumin Level 4.1 g/dL (3.5-5.1); Alkaline Phosphatase 151 U/L (38-126); Anion Gap 10 mmol/L (4-12); Aspartate Amino Transferase 95 U/L (14-36); Blood Urea Nitrogen 6 mg/dL (7-17); Calcium 9.3 mg/dL (8.4-10.2); Carbon Dioxide 25 mmol/L (22-30); Chloride 102 mmol/L (98-107); Estimated Glomerular Filt Rate > 60; Glucose 100 mg/dL (65-110); Potassium 3.8 mmol/L (3.4-5.0); Sodium 137 mmol/L (137-145)
[2024-06-28 00:35] LABS: Magnesium 1.5 mg/dL (1.6-2.3)
[2024-06-28 01:21] LABS: Folic Acid 13.6 ng/mL (2.76->20)
== END 2024-06-27 11:36 | disposition home or self-care (01) ==
PROVIDERS: PCP Nurse Practitioner Family; Visit Provider Nurse Practitioner Family
DX: R79.89 Other specified abnormal findings of blood chemistry (principal); D72.819 Decreased white blood cell count, unspecified; E83.42 Hypomagnesemia
CPT/HCPCS: 36415; 80053; 82607; 82728; 82746; 83540; 83550; 83735; 85025; 85046

== ENCOUNTER 2024-09-25 12:04 | Outpatient (CLI) | payer OTHER, SELFPAY ==
--- OUTSIDE RECORDS SUMMARY | 2024-09-25 12:08 | XMS_ITS | Referral Summary ---
Author Organization [facility] [address] [facility] lt Address [address] [place] [address] Care Team Providers Care Teasel Setter Name Role Phone Fernie Barfield DO Primary [...] tablet by mouth daily. 06/03/2017 Active multivit udulwnln-uqqy-U A-calcium (THERA-M) 9 mg iron-400 mcg tabletIndicatio [...] to evaluate and treat Severe protein-calorie malnutrition 10/12/2017 Assessment & Plan (10/12/2017 6:34 AM CDT): Patient with hyperproteinemia and hypoalbuminemia With ascites and hypertension Despite of a IV fluids patient's blood pressure remains low Will give 1 dose of albumin 50 g IV to increase oncotic pressures Will get technical services rep on board to assist with the management HERNANDEZ (nonalcoholic steatohepatitis) 08/24/2017 Assessment & Plan (10/12/2017 4:20 AM CDT): History of HERNANDEZ, follows in [facility] hepatology [facility]. Has an appointment [...] AM CDT): Patient follows with GI at [facility]. 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 Gender Identity Not on file Sexual Orientation Not on file Last Filed Vital Signs Vital Sign Reading Time Taken Comments Blood Pressure 121/77 12/07/2022 8:48 AM CDT Pulse 79 12/07/2022 8:48 AM CDT Temperature 36.6 C (97.8 F) 07/08/2020 8:52 AM BRIDGE GANG WORKER Respiratory Rate 20 10/10/2021 9:19 AM [...] Advance Directives For more information, please contact: [phone] * Full Code (Latest Code Status on File) Date Activated Date Inactivated Comments 10/12/2017 1:13 AM 10/14/2017 9:47 PM * Full Code Date Activated Date Inactivated Comments 10/11/2017 11:48 PM 10/12/2017 1:13 AM * Full Code Date Activated Date Inactivated Comments 08/23/2017 8:53 PM 08/25/2017 1:57 PM Care Teams Teasel Setter Relationship Specialty Start Date End Date Fernie Barfield DO PCP - General 02/04/17
--- OUTSIDE RECORDS SUMMARY | 2024-09-25 12:08 | XMS_ITS | Patient Health Record ---
Author Organization [facility] Address [address] [place] [address] [phone] Care Team Providers Care Curriculum Consultant Name Role Phone Fernie Barfield DO Primary Care Provider Unavail able EricaBora Unavailable [phone] ALLERGIES Allergen (clinical drug ingredient) Drug/Non Drug [...] (N17.9) Active confirmed Acute renal failure syndrome (70189183) Problem Hypo-osmolality and hyponatremia (E87.1) Active confirmed Hypo-osmolality and or hyponatremia (384225754) Problem Edema, unspecified (R60.9) Active confirmed Edema (87716739) PLAN OF TREATMENT Pending Test Test Name Order Date RENAL PANEL 04/07/2017 Future Test Test Name Order Date RENAL PANEL 04/05/2018 CBC without Differential 04/05/2018 Insurance Providers Payer Name Payer Address Payer Phone Subscriber Number Group Number Insured Name Patient Relationship to Insured Coverage Start Date Coverage End Date Maria Eugenia [address] [place] [address] [id number] Rosa Li Self - patient is the [...] jatin ERCP EGD Hospitalization History Reason Date(Month/Year) [place] 03/22/2017- 7 [place]-acute renal failure 03/25/2017 -03/30/2017
--- OUTSIDE RECORDS SUMMARY | 2024-09-25 12:08 | XMS_ITS | Clinical Summary ---
Author Organization [facility] Address [address] [place] [address] Care Team Providers Care Insecticide Expert Name Role Phone Fernie Barfield DO Primary Care Provider Source Comments [facility],non-owned Affiliates and Associated Physician Practices is amultiple site organization consisting of ambulatory clinics and hospital sitesin [place], [place], [place] and [place]. This disclosure is being madepursuant to the Care Everywhere program and may not contain all information available regarding this patient. Last updated 18.[facility] Allergies Active Allergy Reactions Criticality Noted Date Comments Meperidine Other Low 06/03/2017 MS CHANGES, RESP DEPRESSION Oxycodone Psychiatric Medium 10/12/2017 Medications * Be aware that medications may not be up to date on this document. Alwaysverify current medications with the patient. folic acid (FOLVITE) 1 MG tablet Take 1 mg by mouth DAILY. 30 tablet 5 8 Active Additional Information Patient not taking.Reported on 02/21/2021 Vitamins/Minerals TABS Take 1 tablet by mouth DAILY. 8 Active Probiotic Product (ACIDOPHILUS/GOAT MILK) CAPS Take 1 tablet by mouth DAILY. 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 Gender Identity Not on file Sexual Orientation Not on file Last Filed Vital Signs Vital Sign Reading Time Taken Comments Blood Pressure 133/68 02/21/2021 11:10 AM CDT Pulse 76 02/21/2021 11:10 AM CDT Temperature 36.2 C (97.1 F) 04/26/2020 10:30 AM SEED LABORATORY ASSISTANT Respiratory Rate 18 04/26/2020 10:30 AM SEED LABORATORY ASSISTANT Oxygen Saturation 100% 04/26/2020 10:30 AM SEED LABORATORY ASSISTANT Inhaled Oxygen Concentration 24% 10/27/2017 7 :00 [...] 50+ (1 of 2 - PCV) 1980 ZOSTER VACCINE (1 of 2) 10/27/2011 HEPATITIS B VACCINE (1 of 3 - Risk 3-dose series) 2021 Respiratory Syncytial Virus (RSV) Vaccine Pt: or over 60 yrs (1 - Risk 60-74 years 1-dose series) 2021 COVID-19 VACCINE (1 - 2023-2 5 season) 2024 DEPRESSION SCREENING 05/17/2024 INFLUENZA VACCINE (Season Ended) 2025 HEPATITIS C SCREENING Completed 10/18/2017 HIV SCREENING Completed 10/18/2017 HIB VACCINE Aged Out No longer eligi ble based on patient's age to complete this topic HPV VACCINE Aged Out No longer eligi ble based on patient's age to complete this topic MENINGOCOCCAL (Group B) VACC INE SHARED DECISION-MAKING Aged Out No longer eligibl e based on patient's age to complete this topic MENINGOCOCCAL GROUPS A/C/Y/W VACCINE Aged Out No longer eligible b ased on patient's age to complete this topic Goals Goal Patient Goal Type Associated Problems Recent Progress Patient-Stated? Author Medication Management General On track( 021 11:11 AM CDT) Kimberly Nicolas, RN Note: Expected end date: ongoing Interventions: Take all medications as prescribed Medical Devices Implanted Type Area Field Technical Assistant Device Identifier Shelf Expiration Date Model / Serial / Lot Cath Dlys Dura-Flw 15.5fr X 24cm Implanted:Qty: 1 on 10/28/2017 by Nathalie Kerns MD at [facility] Right: Chest [employer] 02/14/2020 [id number] / / [id number] Description:RIJ Procedures Procedure Name Priority Date/Time Associated Diagnosis Comments HEPATITIS SCREEN ACUTE Routine 10/18/2017 1:54 PM CDT HIV-1 HIV-2 ANTIGEN/ANTIBODY Routine 10/18/2017 1:54 PM CDT from Last 3 Months or Most Recently Relevant to Health Maintenance Results * HIV-1 HIV-2 ANTIGEN/ANTIBODY (10/18/2017 1:54 PM CDT) HIV Antigen/Antibod y 1 & 2 Non-reacti ve Non-react diana 10/18/2017 3:08 PM CDT [facility] Comment: Neither HIV-1 p24 Antigen nor HIV-1/HIV-2 Antibodies are detected. Blood BLOOD SPECIMEN / Unknown Venipuncture / Unknown 10/18/2017 1:54 PM CDT 10/18/2017 2:01 PM CDT Elver Askew MD LAB - HEMATOLOGY ORDERA BLES Final Result [address] [phone] * HEPATITIS SCREEN ACUTE (10/18/2017 1:54 PM CDT) Hepatitis A Virus Antibody IgM Non-react diana Non-reac tive 10/18/2017 3:08 PM CDT [facility] Hepatitis B Virus Surface Antigen Non-react diana Non-reac tive 10/18/2017 3:08 PM CDT [facility] Hepatitis B Core Virus Antibody IgM Non-react diana Non-reac tive 10/18/2017 3:08 PM CDT [facility] Hepatitis C Antibody Non-react diana Non-reac tive 10/18/2017 3:08 PM CDT [facility] Comment: Hepatitis C Antibody screen indicates [...] 1:54 PM CDT 10/18/2017 2:01 PM CDT us Elver Askew MD LAB - CHEMISTRY ORDERAB LES Final Result Performing Organization Address [facility]/State/ZIP Co de Phone Number [address] [phone] from Last 3 Months or Most Recently Relevant to Health Maintenance Insurance CIGNA CIGNA CIGNA SELF PAY NO INSURANCE Member Subscriber Plan / Payer (Ef fective for All Dates) Name:Rosa Li Member ID:Not on file Relation to Subscriber:Not on file Name:ROSA LI Subscriber ID:Not on file (Home) Address: [address] [place] [id number] Payer ID:Not on file Group ID:Not on file Type:Self Pay Address: [place], [place] Advance Directives * Full Code (Latest Code Status on File) Date Activated Date Inactivated Comments 10/14/2017 8:36 PM 11/03/2017 6:52 PM Care Teams Insecticide Expert Relationship Specialty Start Date End Date Fernie Barfield DO [address] [place] [phone] PCP - General 04/14/17
--- OUTSIDE RECORDS SUMMARY | 2024-09-25 12:08 | XMS_ITS | Clinical Summary ---
Author Organization [facility] Address [address], [address] [address] Phone Care Team Providers Care Circular Tank Cooper Name Role Phone Fernie Barfield DO Primary [...] patient's age to complete this topic [place] [address] [place] [address] Care Teams Circular Tank Cooper Relationship Specialty Start Date End Date Fernie Barfield DO [address] [place] [id number] PCP - General Internal Medicine 12/17/16
--- OUTSIDE RECORDS SUMMARY | 2024-09-25 12:08 | XMS_ITS | Encounter Summary ---
Author Organization [facility] Address [address] [facility] [place] [address] Care Team Providers Care Executive Staff Assistant Name Role Phone Fernie Barfield DO Primary Care Provider Encounter Details Date Type Department Care Team (Late st Contact Info) Description 11/02/2017 Ophth Exam [facility] [address] [place] [address] Tashia Brown MD [facility] [place] [address] Social History Tobacco Use Types Packs/Day Years Used Date Smoking Tobacco: Every Day Cigarettes Smokeless Tobacco: Former Alcohol Use Standard Drinks/Week Comments No 0 (1 standard drink = 0.6 oz pur e alcohol) Comments Unknown Sex and Gender Information Value Date Recorded Sex Assigned at Not on file 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 Answer Date of Assessment Author No 10/29/2017 12:22 PM Billy Dewey RN * Is person blind or have serious difficulty seeing? Answer Date of Assessment Author No 10/29/2017 12:22 PM Billy Dewey RN * Does person have serious difficulty walking/climbing stairs? Answer Date of Assessment Author Yes 10/29/2017 12:22 PM Billy Dewey RN * Does person have difficulty dressing/bathing? Answer Date of Assessment Author Yes 10/29/2017 12:22 PM CASSIUST Billy Deleon RN * Does person have difficulty doing errands alone? Answer Date of Assessment Author Yes 10/29/2017 12:22 PM Billy Dewey RN documented as of this encounter Mental Status * Does person have difficulty concentrating/remembering/making decisions? Answer Entry Date Author Yes 10/29/2017 12:22 PM Billy Dewey RN documented in this encounter Plan of Treatment Not on file documented as of this encounter Visit Diagnoses Not on filedocumented in this encounter Care Teams Executive Staff Assistant Relationship Specialty Start Date End Date Fernie Barfield DO [address] [place] [phone] PCP - General 04/14/17 documented as of this encounter
--- OUTSIDE RECORDS SUMMARY | 2024-09-25 12:08 | XMS_ITS | Clinical Summary ---
Author Organization [address] Address [address] [place] [address] Care Team Providers Care Window Air Conditioner Installer Name Role Phone Fernie Barfield DO Primary [...] tablet by mouth daily. 06/03/2017 Active multivit slyyooik-yrmc-E A-calcium (THERA-M) 9 mg iron-400 mcg tabletIndicatio [...] IV to increase oncotic pressures Will get direct care professional on board to assist with the management HERNANDEZ (nonalcoholic steatohepatitis) 08/24/2017 Assessment & Plan (10/12/2017 4:20 AM CDT): History of HERNANDEZ, follows in [facility] hepatology Clinic. Has an appointment this coming [...] CDT): Patient follows with GI at [facility]. Patient has an appointment in September. 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 Gender Identity Not on file Sexual Orientation Not on file Obstetrics History Last Filed Vital Signs Vital Sign Reading Time Taken Comments Blood Pressure 121/77 12/07/2022 8:48 AM CDT Pulse 79 12/07/2022 8:48 AM CDT Temperature 36.6 C (97.8 F) 07/08/2020 8:52 AM STONE ROUGHER Respiratory Rate 20 10/10/2021 9:19 AM CDT [...] Depression Screening 1961 Hepatitis C Screening 1961 DTaP/Tdap/Td Vaccine (1 - Tdap) 1972 Hepatitis B Screening 10/27/1979 Regular Well Visit/Exam 18-64 10/27/1979 Pneumococcal vaccine <65 (1 of 2 - PCV) 1980 Zoster Vaccine (1 of 2) 10/27/2011 Influenza Vaccine (#1) 2024 Insurance [employer] CIGNA CIGNA HEALTHCARE CIGNA Advance Directives For more information, please contact: [phone] * Full Code (Latest Code Status on File) Date Activated Date Inactivated Comments 10/12/2017 1:13 AM 10/14/2017 9:47 PM * Full Code Date Activated Date Inactivated Comments 10/11/2017 11:48 PM 10/12/2017 1:13 AM * Full Code Date Activated Date Inactivated Comments 08/23/2017 8:53 PM 08/25/2017 1:57 PM Care Teams Window Air Conditioner Installer Relationship Specialty Start Date End Date Fernie Barfield DO PCP - General 02/04/17
[2024-09-25 20:07] LABS: Add Urine Microscopic? YES; Appearance Urine Clear (Clear); Bacteria Urine None Seen /hpf; Bilirubin Urine 1+ (Negative); Blood Urine Negative (Negative); Color Urine Dark Yellow (Yellow); Glucose Urine UA Negative (Negative); Ketones Urine Trace mg/dL (Negative); Leukocyte Esterase Ur Trace LEU/UL (Negative); Nitrate Urine Negative (Negative); Protein Urine Trace mg/dL (Negative); RBC Urine 0-2 /hpf (0-2); Specific Grav Ur 1.016 (1.001-1.035); Squamous Epithelial Cell Urine Few /hpf (Few); WBC Urine 0-5 /hpf (0-3); pH Urine 5.5 (5.0-9.0)
[2024-09-25 20:15] LABS: Erythrocyte Sedimentation Rate 7 mm/hr (0-20)
[2024-09-25 20:45] LABS: HIV 1/2 Ab P24 Ag Result Negative (Negative)
[2024-09-25 21:11] LABS: CRP < 0.5 mg/dL (<1.0)
[2024-09-25 21:13] LABS: Complement C3 87 mg/dL (88-165)
[2024-09-25 22:13] LABS: Hepatitis B Surface Antigen Negative (Negative)
[2024-09-25 22:18] LABS: HAV RESULT Negative (Negative); Hepatitis B Core IgM Result Negative (Negative)
[2024-09-25 22:30] LABS: Hepatitis C Virus Antibody Negative (Negative)
[2024-09-27 16:25] LABS: Homocysteine 51.4 umol/L (<10.4)
[2024-09-29 06:18] LABS: Methylmalonic Acid 76 nmol/L (69-390)
== END 2024-09-25 12:05 | disposition home or self-care (01) ==
PROVIDERS: PCP Nurse Practitioner Family; Visit Provider Nurse Practitioner Family
DX: D72.819 Decreased white blood cell count, unspecified (principal); E83.42 Hypomagnesemia; R74.01 Elevation of levels of liver transaminase levels; K75.81 Nonalcoholic steatohepatitis (NASH); E53.8 Deficiency of other specified B group vitamins
CPT/HCPCS: 36415; 80074; 81001; 83090; 83921; 85652; 86140; 86160; 86225; 86703; G0432

== ENCOUNTER 2025-03-12 12:53 | Outpatient (CLI) | payer OTHER, SELFPAY ==
--- OUTSIDE RECORDS SUMMARY | 2025-03-12 14:21 | XMS_ITS | Clinical Summary ---
Author Organization [facility] Address [address], [address] [address] Phone Care Team Providers Care Svp Name Role Phone Fernie Barfield DO Primary Care Provider [phone] Medications traMADol (ULTRAM) 50 MG Tablet Take [...] Comments Hepatitis C Virus (HCV) Screening 1961 Mammogram 1961 TdaP Immunization 1961 Pap Smear 1982 Cervical Cancer Screening (CCS) 10/27/1991 HPV/Cotest 10/27/1991 Cologuard 2006 Colonoscopy 2006 Colorectal Cancer Screening 2006 Immunochemical Fecal Occult Blood 2006 Pneumococcal Immunization (5 0+ years) (1 of 1 - PCV) 10/27/2011 Zoster Immunization (1 of 2) 10/27/2011 Influenza Immunization (#1) 2025 SARS-COV-2 Immunization ( - season) 2025 Respiratory Syncytial Virus (RSV) Immunization (Adult) (1 - 1-dose 75+ series) 2036 Hepatitis B Immunization Aged Out No longer eligible based on patient's age to complete this topic Human Papillomavirus (HPV) Immunization Aged Out No longer eligible b ased on patient's age to complete this topic Meningococcal Immunization (ACWY) Aged Out No longer eligible based on patient's age to complete this topic Rotavirus Immunization Aged Out No lo nger eligible based on patient's age to complete this topic Insurance CIGNA Care Teams Svp Relationship Specialty Start Date End Date Fernie Barfield DO [address] [place] [phone] PCP - General Internal Medicine 12/17/16
--- OUTSIDE RECORDS SUMMARY | 2025-03-12 14:21 | XMS_ITS | Encounter Summary ---
Author Organization [facility] Address [address] [place] [address] Care Team Providers Care Dry Janitor Name Role Phone Fernie Barfield DO Primary Care Provider Encounter Details Date Type Department Care Team (Late st Contact Info) Description 11/02/2017 Ophth Exam [facility] [place] [address] Tashia Brown MD [address] [place] [phone] Social History Tobacco Use Types Packs/Day Years Used Date Smoking Tobacco: Every Day Cigarettes Smokeless Tobacco: Former Alcohol Use Standard Drinks/Week Comments No 0 (1 standard drink = 0.6 oz pur e alcohol) Comments Unknown Sex and Gender Information Value Date Recorded Sex Assigned at Not on file 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 No 11/03/2017 5:07 PM Melinda Philip RN Is person blind or have seri ous difficulty seeing? Yes 11/03/2017 5:07 PM CASSIUST Melinda Mayes RN Does person have serious dif ficulty walking/climbing stairs? Yes 11/03/2017 5:07 PM Lyndsey Philip RN Does person have difficulty dressing/bathing? Yes 11/03/2017 5:07 PM CASSIUST Melinda Mayes RN Does person have difficulty doing errands alone? Yes 11/03/2017 5:07 PM CASSIUST Melinda Mayes RN Does person have difficulty concentrating/remembering/making decisions? Yes 11/03/2017 5:07 PM CDT Melinda Mayes RN * Is person deaf or have serious hearing difficulty? Answer Date of Assessment Author No 10/29/2017 12:22 PM CASSIUST Billy Deleon RN * Is person blind or have [...] Dewey RN * Does person have difficulty doing [...] on filedocumented in this encounter Care Teams Dry Janitor Relationship Specialty Start Date End Date Fernie Barfield DO [address] [place] [phone] PCP - General 04/14/17 documented as of this encounter
--- OUTSIDE RECORDS SUMMARY | 2025-03-12 14:21 | XMS_ITS | Clinical Summary ---
Author Organization [address] Address [address] [place] [address] Care Team Providers Care Infrastructure Director Name Role Phone Fernie Barfield DO Primary [...] tablet by mouth daily. 06/03/2017 Active multivit fqnwdqen-uypw-B A-calcium (THERA-M) 9 mg iron-400 mcg tabletIndicatio [...] IV to increase oncotic pressures Will get sas etl developer on board to assist with the management HERNANDEZ (nonalcoholic steatohepatitis) 08/24/2017 Assessment & Plan (10/12/2017 4:20 AM CDT): History of HERNANDEZ, follows in [facility] hepatology Clinic. Has an appointment this [...] AM CDT): Patient follows with GI at [facility]. 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 Gender Identity Not on file Sexual Orientation Not on file Obstetrics History Last Filed Vital Signs Vital Sign Reading Time Taken Comments Blood Pressure 121/77 12/07/2022 8:48 AM CDT Pulse 79 12/07/2022 8:48 AM CDT Temperature 36.6 C (97.8 F) 07/08/2020 8:52 AM PULL SOCKET ASSEMBLER Respiratory Rate 20 10/10/2021 9:19 AM CDT Oxygen Saturation 61% 10/14/2017 6:00 PM CDT Inhaled Oxygen Concentration - - Weight 51.7 kg (113 lb 14.4 oz) 12/07/2022 8:48 AM CDT Height 154.9 cm (5' 1) 12/07/2022 8:48 AM CDT Body Mass Index [...] (1 of 2) 10/27/2011 Influenza Vaccine (#1) 2025 Insurance [employer]ized [employer] CIGNA CIGNA HEALTHCARE CIGNA Advance Directives For more information, please contact: [phone] * Full Code (Latest Code Status on File) Date Activated Date Inactivated Comments 10/12/2017 1:13 AM 10/14/2017 9:47 PM * Full Code Date Activated Date Inactivated Comments 10/11/2017 11:48 PM 10/12/2017 1:13 AM * Full Code Date Activated Date Inactivated Comments 08/23/2017 8:53 PM 08/25/2017 1:57 PM Care Teams Infrastructure Director Relationship Specialty Start Date End Date Fernie Barfield DO PCP - General 02/04/17
--- OUTSIDE RECORDS SUMMARY | 2025-03-12 14:21 | XMS_ITS | Clinical Summary ---
Author Organization [facility] Address [address] [place] [address] Care Team Providers Care Foot Doctor Name Role Phone Fernie Barfield DO Primary Care Provider Source Comments [facility],non-owned Affiliates and Associated Physician Practices is amultiple site organization consisting of ambulatory clinics and hospital sitesin [place], [place], [place] and [place]. This disclosure is being madepursuant to the Care Everywhere program and may not contain all information available regarding this patient. Last updated 18.[facility] Allergies Active Allergy Reactions Criticality Noted Date [...] & Plan: History of SALGADO, follows in [facility] hepatology Clinic. 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 Gender Identity Not on file Sexual Orientation Not on file Last Filed Vital Signs Vital Sign Reading Time Taken Comments Blood Pressure 133/68 02/21/2021 11:10 AM CDT Pulse 76 02/21/2021 11:10 AM CDT Temperature 36.2 C (97.1 F) 04/26/2020 10:30 AM METERMAN Respiratory Rate 18 04/26/2020 10:30 AM METERMAN Oxygen Saturation 100% 04/26/2020 10:30 AM METERMAN Inhaled Oxygen Concentration 24% 10/27/2017 7 :00 AM CDT Weight 58.5 kg (129 lb) 02/21/2021 11:10 AM CDT Height 154.9 cm (5' 1) 02/21/2021 11:10 AM CDT Body Mass Index [...] SCREENING 1961 LIPID TESTING 1961 MAMMOGRAM 1961 DTAP/TDAP/TD VACCINES (1 - Tdap) 1980 PNEUMOCOCCAL VACCINE 50+ (1 of 2 - PCV) 1980 PAP SMEAR 1982 ZOSTER VACCINE (1 of 2) 10/27/2011 HEPATITIS B VACCINE (1 of 3 - Risk 3-dose series) 2021 Respiratory Syncytial Virus (RSV) Vaccine Pt: or over 60 yrs (1 - Risk 60-74 years 1-dose series) 2021 DEPRESSION SCREENING 05/17/2024 COVID-19 VACCINE (1 - 2023-2 5 season) 2025 INFLUENZA VACCINE (#1) 2025 HEPATITIS C SCREENING Completed 10/18/2017 HIV [...] as prescribed Medical Devices Implanted Type Area Roll Table Operator Device Identifier Shelf Expiration Date Model / Serial / Lot Cath Dlys Dura-Flw 15.5fr X 24cm Implanted:Qty: 1 on 10/28/2017 by Nathalie Kerns MD at [facility] Right: Chest [employer] 02/14/2020 [id number] / / [id number] Description:RIJ Procedures Procedure Name Priority Date/Time Associated Diagnosis Comments HEPATITIS SCREEN ACUTE Routine 10/18/2017 1:54 PM CDT HIV-1 HIV-2 ANTIGEN/ANTIBODY Routine 10/18/2017 1:54 PM CDT from Last 3 Months or Most Recently Relevant to Health Maintenance Results * HIV-1 HIV-2 ANTIGEN/ANTIBODY (10/18/2017 1:54 PM CDT) HIV Antigen/Antibod y 1 & 2 Non-reacti ve Non-react diana 10/18/2017 3:08 PM CDT [facility] Comment: Neither HIV-1 p24 Antigen nor HIV-1/HIV-2 Antibodies are detected. Blood BLOOD SPECIMEN / Unknown Venipuncture / Unknown 10/18/2017 1:54 PM CDT 10/18/2017 2:01 PM CDT Elver Askew MD LAB - HEMATOLOGY ORDERA BLES Final Result Performing Organization Address City/[facility]/ZIP Co de Phone Number [address] [phone] * HEPATITIS SCREEN ACUTE (10/18/2017 1:54 PM CDT) Pathologist [facility] Hepatitis A Virus Antibody IgM Non-react diana Non-reac tive 10/18/2017 3:08 PM CDT [facility] Hepatitis B Virus Surface Antigen Non-react diana Non-reac tive 10/18/2017 3:08 PM CDT [facility] Hepatitis B Core Virus Antibody IgM Non-react diana Non-reac tive 10/18/2017 3:08 PM CDT [facility] Hepatitis C Antibody Non-react diana Non-reac tive 10/18/2017 3:08 PM CDT [facility] Comment: Hepatitis C Antibody screen indicates no [...] ORDERAB LES Final Result Performing Organization Address [facility]/ZIP Co de Phone Number [address] [phone] from Last 3 Months or Most Recently Relevant to Health Maintenance Insurance CIGNA CIGNA CIGNA SELF PAY NO INSURANCE Member Subscriber Plan / Payer (Ef fective for All Dates) Name:Rosa Li Member ID:Not on file Relation to Subscriber:Not on file Name:ROSA LI Subscriber ID:Not on file (Home) Address: [address] [place] [phone] Payer ID:Not on file Group ID:Not on file Type:Self Pay Address: [place], [place] Advance Directives * Full Code (Latest Code Status on File) Date Activated Date Inactivated Comments 10/14/2017 8:36 PM 11/03/2017 6:52 PM Care Teams Foot Doctor Relationship Specialty Start Date End Date Fernie Barfield DO [address] [place] [phone] PCP - General 04/14/17
--- OUTSIDE RECORDS SUMMARY | 2025-03-12 14:21 | XMS_ITS | Patient Health Record ---
Author Organization [facility] Address [address] [place] [id number] Care Team Providers Care Client Finance Analyst Name Role Phone Fernie Barfield DO Primary Care Provider Unavail able EricaBora Unavailable [phone] ALLERGIES Allergen (clinical drug ingredient) Drug/Non Drug [...] (N17.9) Active confirmed Acute renal failure syndrome (07053796) Problem Hypo-osmolality and hyponatremia (E87.1) Active confirmed Hypo-osmolality and or hyponatremia (279423201) Problem Edema, unspecified (R60.9) Active confirmed Edema (90609146) PLAN OF TREATMENT Pending Test Test Name Order Date RENAL PANEL 04/07/2017 Future Test Test Name Order Date RENAL PANEL 04/05/2018 CBC without Differential 04/05/2018 Insurance Providers Payer Name Payer Address Payer Phone Subscriber Number Group Number Insured Name Patient Relationship to Insured Coverage Start Date Coverage End Date Maria Eugenia [id number] [facility] [place] [address] [id number] Rosa Li Self - patient is the [...] jatin ERCP EGD Hospitalization History Reason Date(Month/Year) [place] 03/22/2017- 7 [place]-acute renal failure 03/25/2017 -03/30/2017
--- OUTSIDE RECORDS SUMMARY | 2025-03-12 14:22 | XMS_ITS ---
Author Organization [facility] ([facility]) Address [address] [place] [address] Care Team Providers Care Investment Representative Name Role Phone Unavailable Unavailable Unavailable Allergies, Adverse Reactions, Alerts This patient has no known allergies or adverse reactions. Problems This patient has no known problems.
[2025-03-12 18:31] LABS: Hematocrit 38.2 % (37.0-47.0); Hemoglobin 12.9 g/dL (12.0-15.0); Mean Corpuscular HGB Conc 33.8 g/dl (32-36); Mean Corpuscular Hemoglobin 34.5 pg (26-34); Mean Corpuscular Volume 102.1 fl (80-100); Platelet Count Result 250 k/mm3 (150-375); Red Blood Count 3.74 M/mm3 (4.2-5.4); White Blood Count 5.9 K/mm3 (4.5-10.0)
[2025-03-12 18:43] LABS: Alanine Aminotransferase 18 U/L (6-35); Albumin Level 4.1 g/dL (3.5-5.1); Alkaline Phosphatase 127 U/L (38-126); Anion Gap 6 mmol/L (4-12); Aspartate Amino Transferase 68 U/L (14-36); Bilirubin,Total 1.0 mg/dL (0.2-1.3); Blood Urea Nitrogen 7 mg/dL (7-17); Calcium 8.8 mg/dL (8.4-10.2); Carbon Dioxide 27 mmol/L (22-30); Chloride 101 mmol/L (98-107); Cholesterol 186 mg/dL (0-200); Estimated Glomerular Filt Rate > 60; Glucose 100 mg/dL (65-110); Magnesium 1.6 mg/dL (1.6-2.3); Potassium 4.0 mmol/L (3.4-5.0); Sodium 134 mmol/L (137-145); Total Protein 6.7 g/dL (6.3-8.2); Triglycerides 101 mg/dL (<150)
[2025-03-12 18:51] LABS: Add Urine Microscopic? YES; Appearance Urine Clear (Clear); Glucose Urine UA Negative (Negative); Leukocyte Esterase Ur 1+ LEU/UL (Negative); Nitrate Urine Negative (Negative); Non Pathogenic Casts 0-2; Specific Grav Ur 1.007 (1.001-1.035)
[2025-03-12 19:23] LABS: HDL Direct 116 mg/dL
[2025-03-12 19:57] LABS: Vitamin B12 > 1000.0 pg/mL (239-931)
[2025-03-19 18:08] LABS: Summary Report (Summary) FINAL (.)
== END 2025-03-12 12:54 | disposition home or self-care (01) ==
LOC: ANHLAB 13:02 → ANHBWCLAB 13:08
PROVIDERS: PCP Nurse Practitioner Family; Visit Provider Nurse Practitioner Family
DX: Z13.220 Encounter for screening for lipoid disorders (principal); R82.2 Biliuria; E83.42 Hypomagnesemia; F41.1 Generalized anxiety disorder; E53.8 Deficiency of other specified B group vitamins; K75.81 Nonalcoholic steatohepatitis (NASH); E83.19 Other disorders of iron metabolism; M41.9 Scoliosis, unspecified; R79.89 Other specified abnormal findings of blood chemistry; K90.9 Intestinal malabsorption, unspecified; D70.9 Neutropenia, unspecified; M54.16 Radiculopathy, lumbar region; M51.362 Other intervertebral disc degeneration, lumbar region with discogenic back pain and lower extremity pain; R63.0 Anorexia; Z68.21 Body mass index [BMI] 21.0-21.9, adult; F17.210 Nicotine dependence, cigarettes, uncomplicated; Z79.899 Other long term (current) drug therapy
CPT/HCPCS: 36415; 80053; 80061; 80307; 81001; 82607; 82746; 83735; 85027